=== PATIENT | female | born 1965 | race Caucasian/White ===

== ENCOUNTER 2017-08-31 17:50 | Emergency (ER) | payer MEDICARE, MEDICAID, SELFPAY ==
[2017-08-31 17:51] VITALS: BP 152/105; PULSE 103; RESP 17; TEMP 36.8; O2SAT 98; BMI 33.4
--- NOTE | 2017-08-31 18:10 | RAD_ITS ---
STUDY: X-RAY - LEFT KNEE REASON FOR EXAM: Female, 52 years old. Pain TECHNIQUE: 4 view(s) of the knee. COMPARISON: None. FINDINGS: Normal visualized distal femur. Normal visualized proximal tibia and fibula. Normal proximal tibiofibular articulation. There is no demonstrated fracture. Normal medial femorotibial compartment. Normal lateral femorotibial compartment. Normal patellofemoral articulation. The soft tissue structures are unremarkable. RAD/Knee 4 or More Views IMPRESSION: Normal x-ray examination of the knee. Electronically Signed: Reymundo Domingo MD at 20:32 EST , Service support ,
--- NOTE | 2017-08-31 18:12 | ED.VISSUMM ---
- ER Visit Summary Date of Service: 08/31/17 Chief Complaint: Left knee pain History of Present Illness: The patient is a 52 F presenting with left knee pain. She states this has been ongoing for the past 1.5 weeks. She denies any known injury. She denies any new chest pain or shortness of breath. She went to urgent care and was sent into the ED for further evaluation. She has been able to ambulate. Denies fever chills or other complaints. Physical Examination: Vitals are stable. Patient is afebrile. Alert no acute distress. HEENT exam is unremarkable. Neck is supple. Lungs are clear and equal bilaterally. Heart is regular rate and rhythm. Abdomen is soft nontender nondistended. Extremities diffuse tenderness left knee. No warmth or erythema. Active full range of motion. Normal distal pulses. Skin is warm and dry. Remainder of exam is unremarkable. Emergency Department Course and Treatment: Patient was given Morphine and zofran IM. Left lower extremity venous Doppler shows no evidence of DVT. Left knee x-ray shows no acute process. Patient is able to ambulate in the emergency department. She is given a prescription for a short course of Gueydan. She declines crutches, she states she has a cane at home. Advised to ice and elevate. Advised to follow-up with Dr. Oakley her primary care physician. Advised return to ED for worsening complaints. Disposition: Discharge home Impression: Left knee pain This note was generated with [employer] dictation software. It may contain incorrect words, spelling, and punctuation that were not noted in review of the chart prior to signing ED Disposition - Plan for ED Patient: Chief Complaint: Lower Extremity Injury Referrals: Edvin Oakley III, MD [Primary Care Provider] -
[2017-08-31] MEDS: Ondansetron 4 MG/2 ML Vial IM (18:25)
--- NOTE | 2017-08-31 19:44 | US_ITS ---
STUDY: VENOUS DOPPLER ULTRASOUND - LEFT LOWER EXTREMITY REASON FOR EXAM: Female, 52 years old. Pain. TECHNIQUE: Ultrasound evaluation of the deep vein system to include malik-scale imaging and compression was performed. Malik-scale imaging and Doppler sonographic evaluation, including duplex spectral analysis and qualitative color flow sonography, was performed. COMPARISON: None. FINDINGS: Common Femoral Vein: Normal compression, spontaneity and augmentation. Normal color Doppler. Common Femoral Vein/Greater Saphenous Junction: Normal compression, spontaneity and augmentation. Normal color Doppler. Femoral Proximal: Normal compression, spontaneity and augmentation. Normal color Doppler. Femoral Middle: Normal compression, spontaneity and augmentation. Normal color Doppler. Femoral Distal: Normal compression, spontaneity and augmentation. Normal color Doppler. Popliteal Vein: Normal compression, spontaneity and augmentation. Normal color Doppler. Posterior Tibial Vein: Normal compression, spontaneity and augmentation. Normal color Doppler. Peroneal Vein: Normal compression, spontaneity and augmentation. Normal color Doppler. There is no demonstrated deep venous thrombosis. US/Venous Duplex Imag/Limited/Uni IMPRESSION: Normal venous Doppler ultrasound of the lower extremity. Electronically Signed: Reymundo Domingo MD at 20:31 EST , Service support ,
[2017-08-31 20:36] VITALS: BP 135/99; PULSE 88; RESP 18; O2SAT 95
--- NOTE | 2017-08-31 20:52 | ED.DEP ---
ED Disposition - Plan for ED Patient: Chief Complaint: Lower Extremity Injury Instructions: ED Sprain Knee Prescriptions: Hydrocodone Bitart/Apap 5-325 [Home 5/325] 1 tablet PO Q4H PRN PRN 3 Days #12 tablet PRN Reason: Pain Referrals: Edvin Oakley III, MD [Primary Care Provider] -
[2017-08-31 21:11] VITALS: BP 129/98; PULSE 83; RESP 16; O2SAT 97
== END 2017-08-31 21:12 | disposition home or self-care (01) ==
LOC: ED 18:18
PROVIDERS: Emergency Provider Emergency Medicine; Family Provider Family Medicine; PCP Family Medicine
DX: M25.562 Pain in left knee (principal); J44.9 Chronic obstructive pulmonary disease, unspecified; Z72.0 Tobacco use; Z86.73 Personal history of transient ischemic attack (TIA), and cerebral infarction without residual deficits
CPT/HCPCS: 73564; 93971; 96372; 99282; J2405

== ENCOUNTER 2017-10-20 13:25 | Emergency (ER) | payer MEDICARE, MEDICAID, SELFPAY ==
[2017-10-20 13:26] VITALS: BP 166/135; PULSE 110; RESP 24; TEMP 36.6; O2SAT 98; BMI 33.9
--- NOTE | 2017-10-20 13:30 | EKG12_ITS ---
Test Reason : CP Blood Pressure : / mmHG Vent. Rate : 107 BPM Atrial Rate : 107 BPM P-R Int : 150 ms QRS Dur : 088 ms QT Int : 338 ms P-R-T Axes : 077 080 051 degrees QTc Int : 451 ms Sinus tachycardia Right atrial enlargement Borderline ECG Confirmed by RICH VARGHESE, ROLAN ([id number]), graphics editor CARLOS IRVIN ([id number]) on 10/26/2017 8:55:51 AM Referred By: ALISA/REMY Confirmed By:ROLAN VILLANUEVA MD
--- NOTE | 2017-10-20 13:30 | RAD_ITS ---
STUDY: X-RAY CHEST REASON FOR EXAM: Female, 52 years old. Cough. Shortness of breath. TECHNIQUE: Single AP portable view of the chest. COMPARISON: Comparison is made with prior study dated December 26, 2016. FINDINGS: EKG electrodes are seen. Hyperinflation. Scattered calcified granulomas. No acute abnormality is seen. There is no demonstrated pleural abnormality. Normal size heart. Normal mediastinum and ashley. Normal visualized pulmonary arteries. There is atherosclerotic calcification of the aortic arch with tortuosity. There are diffuse degenerative changes of the visualized thoracic spine. Normal visualized ribs, clavicles, and shoulders. There is no demonstrated abnormality of the visualized soft tissue structures of the upper abdomen. RAD/Chest 1 View (Portable) IMPRESSION: Hyperinflation. No acute abnormality is seen. Electronically Signed: Ayaz Parker MD at 13:53 EDT Tel [phone], Service support ,
[2017-10-20 13:35] VITALS: PULSE 94; RESP 24; O2SAT 96
[2017-10-20] MEDS: Ipratropium/Albuterol Sulfate 3 ML AMPUL.NEB INHALATION (13:35)
[2017-10-20] MEDS: MethylPREDNISolone 125 MG/2 ML Vial IV (13:38)
[2017-10-20] MEDS: Aspirin 325 MG Tablet PO (13:38)
[2017-10-20] MEDS: Albuterol 2.5 MG/3 ML VIAL.NEB. INHALATION ×2 (13:38)
[2017-10-20 13:42] LABS: Absolute Neutrophil Count 7.1 X10^3/uL (2.0-7.7); Basophil# 0.06 X10^3/uL; Basophil% 0.5 % (0-1); Eosinophil# 0.11 X10^3/uL; Eosinophils% 0.9 % (0-5); Hematocrit 43.9 % (37-47); Hemoglobin 13.6 g/dl (12.0-15.0); Lymphocyte % 34.7 % (19-41); Mean Corpuscular Hgb 25.3 pg (27.0-32.0); Mean Corpuscular Volume 81.6 fL (81-99); Mean Platelet Vol. 9.3 fl (6.2-12.0); Monocyte# 0.86 X10^3/uL; Monocyte% 6.9 % (0-10); Neutrophil # 7.05 X10^3/uL (2.7-7.7); Neutrophil % 56.8 % (47-70); Platelet Count 606 K/mm3 (150-450); RBC Distribution Width CV 16.7 % (11.6-14.6); RBC Distribution Width SD 50.2 fl (35.1-43.9); Red Blood Count 5.38 M/mm3 (4.2-5.4); White Blood Count 12.4 K/mm3 (4.4-11.0)
[2017-10-20 13:45] LABS: POSITIVE COUNT NO; POSITIVE DIFFERENTIAL NO
[2017-10-20 13:46] LABS: POSITIVE MORPHOLOGY NO
[2017-10-20 13:58] LABS: Anion Gap 11 (5-15); BUN 21 mg/dL (7-18); Calcium,Total 9.3 mg/dL (8.5-10.1); Chloride 102 mmol/L (98-107); Creatinine, Serum 1.05 mg/dL (0.55-1.02); EST Glomerular Filtration Rate 59 mL/min (>60); Est Glom Filt Rate - Afr Amer 71 mL/min (>60); Estimated Creatinine Clearance 57.04 ml/min; Glucose 121 mg/dL (74-106); Potassium 4.1 mmol/L (3.5-5.1); Sodium Level 139 mmol/L (136-145)
[2017-10-20 14:51] VITALS: BP 135/72; PULSE 112; RESP 22; TEMP 36.5; O2SAT 98
[2017-10-20 14:54] VITALS: O2SAT 100
--- NOTE | 2017-10-20 15:24 | ED.DCSUM_ITS ---
- ER Visit Summary Date of Service: 10/20/17 Chief Complaint: Chest pain shortness of breath History of Present Illness: The patient is a 52 F presenting for evaluation secondary chest pain shortness of breath. Patient states that over the course last 5 days she has had worsening dyspnea, cough, and chest tightness. Patient states that it has not been associated with any fever she states that the cough is intermittently productive. Patient does have an underlying history of hypertension high cholesterol smoking COPD and PE in the past. Physical Examination: Vital signs are notable for heart rate of 110 respiratory rate 24 pulse ox 98% on room air. Well-nourished female hyperventilating not in physiologic distress. Moist mucous membranes. Neck supple heart tachycardic and regular no murmurs. Lungs sounds showed evidence of bilateral upper and lower lobe wheezes with minimal diminished sounds in the left. Abdomen soft nontender. No peripheral edema, no skin rashes, remainder physical otherwise unremarkable. Test Results: EKG shows sinus rhythm of [address] segments normal T waves. CBC shows leukocytosis of 12 thrombocytosis of 600, chemistry unremarkable, troponin negative. Chest x-ray shows chronic changes per radiology. Emergency Department Course and Treatment: Patient presented with shortness of breath and chest tightness. She was given albuterol and Atrovent treatments and aspirin as well as prednisone in the emergency department. Workup was unremarkable, patient has had continuous chest pain for 5 days I do not believe that this is cardiac. Patient has more stigmata of respiratory illness given her wheezes and physical exam findings. She was ambulated in the emergency department and maintained pulse ox of 98%. At this time I believe that she is appropriate for discharge. She will be sent home with a course of prednisone and albuterol nebulized treatments. She will follow-up with her primary care physician. Disposition: Discharge Impression: 1. COPD exacerbation This note was generated with [employer] dictation software. It may contain incorrect words, spelling, and punctuation that were not noted in review of the chart prior to signing ED Disposition - Plan for ED Patient: Disposition: Home or Assisted Living Chief Complaint: Chest Pain Diagnosis: COPD exacerbation Instructions: ED COPD Flare Prescriptions: Albuterol Aerosols [Ventolin Aerosols] 2.5 mg INHALATION Q4H PRN #25 vial Prednisone [Deltasone] 60 mg PO DAILY #15 tab Referrals: Edvin Oakley III, MD [Primary Care Provider] - 3-5 Days
[2017-10-20 15:41] VITALS: BP 134/83; RESP 18
== END 2017-10-20 15:43 | disposition home or self-care (01) ==
PROVIDERS: Emergency Provider Emergency Medicine; Family Provider Family Medicine; PCP Family Medicine
DX: J44.1 Chronic obstructive pulmonary disease with (acute) exacerbation (principal); I10 Essential (primary) hypertension; E78.00 Pure hypercholesterolemia, unspecified; F17.200 Nicotine dependence, unspecified, uncomplicated; Z79.899 Other long term (current) drug therapy; Z86.711 Personal history of pulmonary embolism; Z86.73 Personal history of transient ischemic attack (TIA), and cerebral infarction without residual deficits
CPT/HCPCS: 71045; 80048; 84484; 85025; 87804; 93005; 94640; 96374; 99285

== ENCOUNTER 2017-10-27 09:02 | Emergency (ER) | payer MEDICARE, MEDICAID, SELFPAY ==
[2017-10-27 09:04] VITALS: BP 122/83; PULSE 99; RESP 20; TEMP 36.8; O2SAT 100; BMI 32.8
--- NOTE | 2017-10-27 09:18 | RAD_ITS ---
STUDY: X-RAY CHEST REASON FOR EXAM: Female, 52 years old. Chest pain. TECHNIQUE: Single AP portable view of the chest. COMPARISON: Comparison is made with prior examination dated October 20, 2017. FINDINGS: EKG electrodes are seen. Hyperinflation. No acute abnormality is present. There is no demonstrated pleural abnormality. Normal size heart. Normal mediastinum and ashley. Normal visualized pulmonary arteries. Normal visualized aortic arch and descending thoracic aorta. There are diffuse degenerative changes of the visualized thoracic spine. Normal visualized ribs, clavicles, and shoulders. There is no demonstrated abnormality of the visualized soft tissue structures of the upper abdomen. RAD/Chest 1 View (Portable) IMPRESSION: Hyperinflation. Electronically Signed: Ayaz Parker MD at 9:46 EDT Tel [phone], Service support ,
--- NOTE | 2017-10-27 09:18 | EKG12_ITS ---
Test Reason : DIZZINESS Blood Pressure : / mmHG Vent. Rate : 093 BPM Atrial Rate : 093 BPM P-R Int : 124 ms QRS Dur : 100 ms QT Int : 384 ms P-R-T Axes : 038 077 060 degrees QTc Int : 477 ms Normal sinus rhythm Normal ECG Confirmed by ROLAN VILLANUEVA MD ([id number]), newspaper copy editor CARLOS IRVIN ([id number]) on 10/29/2017 11:29:53 AM Referred By: ALISA Confirmed By:ROLAN VILLANUEVA MD
--- NOTE | 2017-10-27 09:25 | ED.VISSUMM ---
- ER Visit Summary Date of Service: 10/27/17 Chief Complaint: I a and feeling like she might pass out. She denies any headache. She denies any chest pain. She denies any abdominal pain. She has had mild diarrhea but no vomiting. No melena or fever. M not feeling well History of Present Illness: The patient is a 52 F 3 of anxiety and depression, hypertension, COPD and prior PE. Currently not on anticoagulation. Patient is very anxious. And trembling. She states she has been feeling well since Wednesday. She had bad news. She has been complaining of dizziness when she is standing. She denies headache or abdominal pain. She denies dysuria. She denies melena. She has had only mild diarrhea the last several days but none today. No vomiting. No fever. Physical Examination: Very middle-aged female who is very anxious. Vital signs are stable afebrile. Her pulse ox is 100% on room air no signs of hypoxia. H EENT exam unremarkable. Moist mucous membranes. No facial droop. Extraocular motions are intact. Neck nontender no lymphadenopathy. Lungs clear few scattered wheezes consistent with her smoking history. No rales or rhonchi. Heart regular rhythm no murmur rate in the 90s. Abdomen is soft and nontender normal bowel sounds no peritoneal signs. She is moving all 4 extremities. Calves are nontender without edema or cords. She has normal motor strength both the upper and lower extremities. Back exam is nontender. Skin is normal. No petechiae or purpura no rashes. Neurologically she is awake and alert with no focal deficits. Test Results: CBC shows an elevated white count 13.9 but she often has white counts between 12 and 20. Normal H&H. Platelet count is also elevated but that is chronic also. Her electrolytes are unremarkable her BUN is 48 and her creatinine is 2.09. She often has creatinines between 1 and 3.8. This appears to be secondary to dehydration and she is on a diuretic. Troponin is less than 0.02. EKG shows sinus rhythm rate of 93 with no acute abnormality and unchanged from prior EKG. Her orthostatic vital signs are pending. Emergency Department Course and Treatment: Patient was treated with IV Ativan for anxiety. Clinically her exam is basically normal other than chronic wheezing from smoking. We will do screening labs for further evaluation. Treatment Plan: Repeat exam the patient is doing well at 1020. She appears much more comfortable and was resting after we gave her the Ativan. Her exam is unchanged and unremarkable other than her anxiety is resolved. Disposition: Discharge Impression: Acute anxiety with multiple somatic complaints Renal insufficiency This note was generated with [employer] dictation software. It may contain incorrect words, spelling, and punctuation that were not noted in review of the chart prior to signing ED Disposition - Plan for ED Patient: Chief Complaint: Dizziness Referrals: Edvin Oakley III, MD [Primary Care Provider] -
[2017-10-27 09:29] VITALS: O2SAT 98
[2017-10-27 09:33] LABS: Absolute Neutrophil Count 8.6 X10^3/uL (2.0-7.7); Basophil# 0.05 X10^3/uL; Basophil% 0.4 % (0-1); Eosinophil# 0.13 X10^3/uL; Eosinophils% 0.9 % (0-5); Hematocrit 40.5 % (37-47); Lymphocyte % 30.3 % (19-41); Mean Corp Hgb Conc 32.1 g/gl (32-36); Mean Corpuscular Hgb 25.6 pg (27.0-32.0); Mean Corpuscular Volume 79.7 fL (81-99); Mean Platelet Vol. 9.5 fl (6.2-12.0); Monocyte# 0.88 X10^3/uL; Monocyte% 6.3 % (0-10); Neutrophil # 8.58 X10^3/uL (2.7-7.7); Neutrophil % 61.8 % (47-70); Platelet Count 611 K/mm3 (150-450); RBC Distribution Width CV 16.5 % (11.6-14.6); RBC Distribution Width SD 47.6 fl (35.1-43.9); Red Blood Count 5.08 M/mm3 (4.2-5.4); White Blood Count 13.9 K/mm3 (4.4-11.0)
[2017-10-27 09:35] LABS: POSITIVE COUNT NO; POSITIVE DIFFERENTIAL NO; POSITIVE MORPHOLOGY NO
[2017-10-27] MEDS: LORazepam 2 MG/ML Syringe 1 MG IV (09:36)
[2017-10-27 09:48] LABS: Anion Gap 10 (5-15); BUN 48 mg/dL (7-18); Chloride 101 mmol/L (98-107); Creatinine, Serum 2.09 mg/dL (0.55-1.02); EST Glomerular Filtration Rate 27 mL/min (>60); Est Glom Filt Rate - Afr Amer 32 mL/min (>60); Estimated Creatinine Clearance 28.66 ml/min; Glucose 99 mg/dL (74-106); Sodium Level 135 mmol/L (136-145)
--- NOTE | 2017-10-27 10:23 | ED.DEP ---
ED Disposition - Plan for ED Patient: Disposition: Home or Assisted Living Chief Complaint: Dizziness Instructions: ED Dizziness UKO, ED Panic Attack Referrals: Edvin Oakley III, MD [Primary Care Provider] - 3-5 Days if not improving Additional Instructions: Ensure your drinking plenty of fluids your somewhat dehydrated today. Stop smoking
[2017-10-27 10:34] VITALS: BP 85/67; PULSE 94; RESP 18; O2SAT 97
== END 2017-10-27 10:47 | disposition home or self-care (01) ==
PROVIDERS: Emergency Provider Emergency Medicine; Family Provider Family Medicine; PCP Family Medicine
DX: F41.9 Anxiety disorder, unspecified (principal); N28.9 Disorder of kidney and ureter, unspecified; I10 Essential (primary) hypertension; J44.9 Chronic obstructive pulmonary disease, unspecified; F32.9 Major depressive disorder, single episode, unspecified; F17.200 Nicotine dependence, unspecified, uncomplicated; Z86.73 Personal history of transient ischemic attack (TIA), and cerebral infarction without residual deficits; Z79.899 Other long term (current) drug therapy
CPT/HCPCS: 71045; 80048; 84484; 85025; 93005; 96374; 99284; A4216

== ENCOUNTER 2018-05-18 13:32 | Inpatient (IN) | payer MEDICARE, MEDICAID, SELFPAY ==
[2018-05-18] VITALS (8 sets, daily range): BP systolic 116–140; BP diastolic 71–80; PULSE 89–128; RESP 16–22; TEMP 36.3–36.6; O2SAT 95–100; BMI 26.6; BMI 31.5; BMI 31.6
--- NOTE | 2018-05-18 13:43 | EKG12_ITS ---
Test Reason : SOB Blood Pressure : / mmHG Vent. Rate : 100 BPM Atrial Rate : 100 BPM P-R Int : 144 ms QRS Dur : 094 ms QT Int : 374 ms P-R-T Axes : 062 078 069 degrees QTc Int : 482 ms Normal sinus rhythm Abnormal ECG Confirmed by ROLAN VILLANUEVA MD ([id number]), marketing editor CARLOS IRVIN ([id number]) on 05/25/2018 2:14:36 PM Referred By: REBECCA Confirmed By:ROLAN VILLANUEVA MD
--- NOTE | 2018-05-18 13:48 | ED.DCSUM_ITS ---
- ER Visit Summary Date of Service: 05/18/18 Chief Complaint: Shortness of breath and cough History of Present Illness: The patient is a 52 F 3 of asthma, COPD, prior PEs, hypertension and strokes. Patient is not on home O2. States her last week she has had a cough with increasing shortness of breath since yesterday. No chest pain. No hemoptysis. Chills but no fever. Cough of green to yellow sputum. She denies any recent travel or surgery. No recent hospitalization in the last 2 months. No calf pain or swelling. Physical Examination: Middle-aged female vital signs are stable she is tachycardic at 128. Pulse ox 97% on room air. HEENT exam unremarkable. Neck nontender no JVD. No lymphadenopathy. Lungs prolonged expiratory phase bilaterally. Wheezing bilaterally. Rhonchi that clear. Heart tachycardic rate about 130 no murmur. Abdomen soft nontender. She is moving all 4 extremities. They are neurovascularly intact. Calves are nontender without edema nor cords. Neurologically she is awake and alert with no focal motor deficits. Back is nontender. Test Results: CBC shows an elevated white count of 25,000. Hemoglobin 13. No bands. Chemistry shows sodium 135. Potassium 3.4. Normal creatinine and gap. Two-view chest x-ray shows chronic changes consistent with COPD and I believe there is a right upper lateral lobe pneumonia. Emergency Department Course and Treatment: She will be treated with IV Solu- Medrol, DuoNeb and albuterol aerosols. IV fluids. Patient is improving on repeat exams. However she will be started on IV Rocephin and Zithromax for pneumonia. This would be community-acquired. Blood cultures will be obtained prior to antibiotics being started. Treatment Plan: I spoke to the hospitalist and the patient will be admitted. Disposition: Admission Impression: Acute dyspnea secondary to acute exacerbation COPD Acute right upper lobe pneumonia This note was generated with [employer] dictation software. It may contain incorrect words, spelling, and punctuation that were not noted in review of the chart prior to signing ED Disposition - Plan for ED Patient: Chief Complaint: Shortness of Breath Referrals: Edvin Oakley III, MD [Primary Care Provider] -
[2018-05-18 14:01] LABS: Absolute Lymphocyte Count 3.78 X10^3/ul (0.83-4.51); Basophil# 0.06 X10^3/uL; Basophil% 0.2 % (0-1); Eosinophils% 0.4 % (0-5); Hematocrit 42.4 % (37-47); Hemoglobin 13.7 g/dl (12.0-15.0); Lymphocyte # 3.78 X10^3/ul (4.0); Lymphocyte % 15.1 % (19-41); Mean Corp Hgb Conc 32.3 g/gl (32-36); Mean Corpuscular Hgb 27.2 pg (27.0-32.0); Mean Corpuscular Volume 84.1 fL (81-99); Mean Platelet Vol. 9.6 fl (6.2-12.0); Neutrophil # 19.02 X10^3/uL (2.7-7.7); Platelet Count 459 K/mm3 (150-450); RBC Distribution Width CV 16.8 % (11.6-14.6); Red Blood Count 5.04 M/mm3 (4.2-5.4)
[2018-05-18 14:03] LABS: Differential Indicated SCAN CRITERIA MET; POSITIVE COUNT NO; POSITIVE DIFFERENTIAL YES; POSITIVE MORPHOLOGY NO
[2018-05-18] MEDS: Albuterol 2.5 MG/3 ML VIAL.NEB. INHALATION ×3 (14:08)
[2018-05-18] MEDS: Ipratropium/Albuterol Sulfate 3 ML AMPUL.NEB INHALATION ×2 (14:08→19:09)
[2018-05-18 14:14] LABS: Anion Gap 7 (5-15); BUN 8 mg/dL (7-18); BUN/Creat Ratio 11.3 RATIO (10-20); Calcium,Total 9.2 mg/dL (8.5-10.1); Chloride 99 mmol/L (98-107); Creatinine, Serum 0.71 mg/dL (0.55-1.02); EST Glomerular Filtration Rate 92 mL/min (>60); Est Glom Filt Rate - Afr Amer 111 mL/min (>60); Estimated Creatinine Clearance 84.35 ml/min; Glucose 108 mg/dL (74-106); Potassium 3.4 mmol/L (3.5-5.1); Sodium Level 135 mmol/L (136-145)
[2018-05-18] MEDS: MethylPREDNISolone 125 MG/2 ML Vial IV (14:19)
[2018-05-18] MEDS: 0.9% Normal Saline 1,000 ML 999 ML IV (14:19)
[2018-05-18] MEDS: Ketorolac 30 MG/ML Syringe IV (14:51)
--- NOTE | 2018-05-18 14:55 | RAD_ITS ---
STUDY: X-RAY CHEST REASON FOR EXAM: Female, 52 years old. Cough and dyspnea. Shortness of breath. TECHNIQUE: AP and lateral views of the chest. COMPARISON: Comparison is made with prior examination dated October 27, 2017. FINDINGS: EKG electrodes are seen. There now is evidence of increased markings with areas of confluence in the right upper lobe. Early right upper lobe infiltrate should be ruled out. Follow-up is recommended. Hyperinflation. There is no demonstrated pleural abnormality. Normal size heart. Normal mediastinum and ashley. Normal visualized pulmonary arteries. Normal visualized aortic arch and descending thoracic aorta. There is demineralization of the osseous structures. Normal visualized ribs, clavicles, and shoulders. There is no demonstrated abnormality of the visualized soft tissue structures of the upper abdomen. RAD/Chest PA and Lateral IMPRESSION: Findings in keeping with early right upper lobe infiltrate. Hyperinflation. Electronically Signed: Ayaz Parker MD at 15:17 EDT Tel [phone], Service support ,
--- NOTE | 2018-05-18 15:16 | NURSING ---
HOSPITALIST FOR DR CUELLAR
--- NOTE | 2018-05-18 15:19 | NURSING ---
MED SURG RU LOBE PNEUMONIA, COPD FLARE KIMBERLY
[2018-05-18] MEDS: Ceftriaxone 1 GM/50 ML BAG IV (16:01)
--- NOTE | 2018-05-18 16:58 | PCM.HP.STD ---
<Juhi Jacques - Last Filed: 05/18/18 17:36> Problem List (1) COPD (chronic obstructive pulmonary disease) Status: Acute (2) History of alcohol use disorder Status: Chronic (3) Seizure Status: Suspected (4) Obesity (BMI 30-39.9) Status: Chronic (5) Iron deficiency anemia Status: Chronic (6) Depression Status: Chronic (7) Marijuana smoker Status: Chronic (8) HLD (hyperlipidemia) Status: Chronic (9) HTN (hypertension) Status: Chronic (10) Nicotine addiction Status: Chronic (11) Pulmonary hypertension Status: Chronic (12) Thrombocytosis Status: Chronic History of Present Illness Date of Admission: 05/18/18 Chief Complaint: Shortness of breath, cough. The patient is a 52 year old F who presents to the emergency room due to shortness of breath, cough, general malaise. She reports she has been feeling unwell for approximately 1 week with increased shortness of breath for the past day. She states she has been in bed all day due to general body aches and overall feeling unwell. She denies sick contacts. States she has been traveling out of state multiple times recently. Complains of productive cough with yellow sputum, fever, chills. She has been using her home nebulizer aerosols without improvement in shortness of breath. She has a past medical history of COPD, tobacco dependence, hypertension, hyperlipidemia, history of seizure, chronic iron deficiency anemia, history of CVA, history of polysubstance use, pulmonary hypertension, depression, obesity. Past Medical History Past Medical History (Chronic Problems): Chronic Problems History of alcohol use disorder (Chronic) Obesity (BMI 30-39.9) (Chronic) Iron deficiency anemia (Chronic) Depression (Chronic) Marijuana smoker (Chronic) HLD (hyperlipidemia) (Chronic) HTN (hypertension) (Chronic) Nicotine addiction (Chronic) Pulmonary hypertension (Chronic) Thrombocytosis (Chronic) Allergies peanut Allergy (Verified 05/18/18 13:35) Anaphylaxis tree nut [Tree Nut] Allergy (Verified 05/18/18 13:35) Anaphylaxis Home Medications: Ambulatory Orders Medication Instructions Recorded Albuterol Aerosols [Ventolin 2.5 mg INHALATION Q4H PRN #25 vial 10/20/17 Aerosols] Albuterol Sulfate [Ventolin Hfa] 1 - 2 puff INHALATION PRN PRN 05/18/18 Ipratropium/Albuterol Sulfate 3 ml INHALATION Q6H PRN 05/18/18 [Duoneb] Mometasone/Formoterol [Dulera 200 1 - 2 puff INHALATION DAILY 05/18/18 Mcg/5 Mcg Inhaler] Amox/Clavulanate Tablet [Augmentin 875 mg PO Q12H #14 tablet 05/19/18 Tablet] Azithromycin 500 mg PO DAILY #4 tablet 05/19/18 Guaifenesin [Mucinex] 1,200 mg PO BID #20 tablet 05/19/18 Nicotine [Nicoderm] 14 mg TRANSDERM. DAILY #30 patch 05/19/18 Prednisone 10 mg PO UD #30 tab 05/19/18 Surgical History: cholecystectomy, - - Cholecystectomy, tubal ligation. 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, Post traumatic stress [employer] History: - - Tubal ligation Smoking Status: Current every day smoker Tobacco Use: Cigarettes Alcohol: None Drugs: Marijuana - *Family History Paternal History Items: Seizures - Epilepsy Maternal History Items: Asthma, COPD, Hypertension Sibling History Items: Cancer - Lung, Hypertension Review of Systems Constitutional: Reports: Chills, Fever, Malaise, Fatigue HEENT: Reports: Nasal Congestion, Sore Throat. Denies: Head Aches, Sinus Congestion, Sinus Drainage Cardiovascular: Denies: Chest Pain, Edema, Light Headedness, Palpitations Respiratory: Reports: Cough, Shortness of Breath, Sputum production, Wheezing Gastrointestinal: Denies: Abdominal Pain, Nausea, Vomiting Genitourinary: Denies: Dysuria Musculoskeletal: Denies: Joint Pain, Joint Tenderness Skin: Denies: Rash, Wounds Neurological: Denies: Numbness, Tingling, Focal weakness Psychiatric: Reports: Anxiety, Depression. Denies: Homicidal Ideations, Suicidal Ideations Hematologic/ Lymphatic: Denies: Easy Bruising, Easy Bleeding VTE Information - Inpt Only VTE Present on Admission: No VTE Mechan Device Prophylaxis: None VTE Pharm Prophylaxis ordered?: Yes - Physical Exam General: Alert, Oriented x3, Cooperative, - - Appears ill HEENT: Atraumatic, PERRLA, EOMI, Normocephalic Oral: Moist Mucosa Neck: Supple, No JVD, Negative Carotid Bruits Lungs: Diminished, Rhonchi, Wheezes Cardiovascular: Regular Rhythm, Normal S1, Normal S2, No murmurs, Tachycardic Abdomen: Bowel Sounds Present, Soft, Non Tender, Non-Distended, Obese Extremities: No clubbing, No cyanosis, No edema, Capillary Refill Less than 3 Seconds Skin: No rashes, No breakdown Musculoskeletal: No Tenderness to Palpation of Joints or Extremities Neurological: Cranial nerves II-XII grossly intact, Neuro grossly intact Psych/Mental Status: Normal Affect, Appropriate Vital Signs Temp Pulse Resp BP Pulse Ox 97.9 F 89 16 116/77 100 05/18/18 16:00 05/18/18 16:00 05/18/18 16:00 05/18/18 16:00 05/18/18 16:00 Oxygen Flow Rate (L/min) 2 Oxygen Delivery Method Nasal Cannula Weight: 189 lb 6.033 oz Body Mass Index (BMI) 31.5 Laboratory Tests Past 24 Hrs 05/18/18 05/18/18 13:55 13:55 WBC 25.0 H RBC 5.04 Hgb 13.7 Hct 42.4 MCV 84.1 MCH 27.2 MCHC 32.3 RDW 16.8 H RDW Differential 52.0 H Plt Count 459 H MPV 9.6 Immature Gran % (Auto) 0.300 Neut % (Auto) 76.0 H Lymph % (Auto) 15.1 L [place] % (Auto) 8.0 Eos % (Auto) 0.4 Baso % (Auto) 0.2 Absolute Neuts (auto) 19.0 H Absolute Lymphs (auto) 3.78 Total Counted Not Reportable Sodium 135 L Potassium 3.4 L Chloride 99 Carbon Dioxide 29.0 Anion Gap 7 BUN 8 Creatinine 0.71 Estim Creat Clear Calc 84.35 Est GFR (MDRD) Af Amer 111 Est GFR (MDRD) Non-Af 92 BUN/Creatinine Ratio 11.3 Glucose 108 H Calcium 9.2 Assessment/Plan All Active Problems COPD (chronic obstructive pulmonary disease) (Acute) Bilateral pulmonary embolism (Resolved) CVA (cerebral vascular accident) (Resolved) History of suicide attempt (Resolved) 1. Acute sepsis secondary to right upper lobe community acquired pneumonia-leukocytosis, tachypnea, tachycardia on admission. Chest x-ray showed right upper lobe pneumonia. Continue IV azithromycin and IV Rocephin. Blood cultures pending. Check urine for strep and Legionella. Albuterol DuoNeb aerosols. Mucinex 1200 mg twice daily. 2. Acute exacerbation of COPD-check respiratory panel. IV Solu-Medrol. Albuterol and DuoNeb aerosols. Patient currently has supplemental oxygen however she was not hypoxic on admission. We oxygen as tolerated to maintain O2 at or above 90%. 3. Chronic iron deficiency anemia-previously on iron supplementation. 4. Hypertension-previously on metoprolol. Continue to monitor. 5. Hyperlipidemia-no longer taking statin. 6. Depression/anxiety-not currently on regimen. 7. History of polysubstance abuse-states she still uses occasional marijuana. 8. GERD-previously on PPI. 9. Obesity-encourage diet lifestyle modifications. 10. History of PE-off of anticoagulation following treatment. Reported to have had hypercoagulable workup that was unremarkable. 11. History of TIA/CVA-No longer taking asa, statin? Check med rec. 12. Tobacco dependence-encourage tobacco cessation. Nicotine replacement patch. 13. History of seizures-previously on Keppra. Is unclear why patient is no longer taking previously prescribed medications. Need to obtain current med rec. DVT prophylaxis- Lovenox. This patient was seen by MAGALYS Borden under the supervision of Dr. Denney. <Arun Denney F - Last Filed: 05/19/18 13:24> History of Present Illness The patient is a 52 year old F [] Past Medical History Allergies peanut Allergy (Verified 05/18/18 13:35) Anaphylaxis tree nut [Tree Nut] Allergy (Verified 05/18/18 13:35) Anaphylaxis - Physical Exam Vital Signs Temp Pulse Resp BP Pulse Ox 98.5 F 97 12 131/73 H 96 05/19/18 12:00 05/19/18 12:00 05/19/18 12:00 05/19/18 12:00 05/19/18 12:00 Oxygen Flow Rate (L/min) 2 Oxygen Delivery Method Room Air Weight: 189 lb 6.033 oz Body Mass Index (BMI) 31.5 Intake and Output for Last 24 Hours 05/17/18 05/18/18 05/19/18 23:59 23:59 23:59 Intake Total 707 / 707 2792.1 / 2792.1 Output Total Balance 707 / 707 2791.1 / 2791.1 Microbiology Past 72 Hours 10/31/18 19:10 Respiratory Panel (PCR) - Final Mucosa - Nasopharyngeal Laboratory Tests Past 24 Hrs 05/18/18 05/18/18 05/19/18 13:55 13:55 05:52 WBC 25.0 H RBC 5.04 Hgb 13.7 Hct 42.4 MCV 84.1 MCH 27.2 MCHC 32.3 RDW 16.8 H RDW Differential 52.0 H Plt Count 459 H MPV 9.6 Immature Gran % (Auto) 0.300 Neut % (Auto) 76.0 H Lymph % (Auto) 15.1 L [place] % (Auto) 8.0 Eos % (Auto) 0.4 Baso % (Auto) 0.2 Absolute Neuts (auto) 19.0 H Absolute Lymphs (auto) 3.78 Total Counted Not Reportable Diff Path Review May foll Sodium 135 L 141 Potassium 3.4 L 3.6 Chloride 99 107 Carbon Dioxide 29.0 26.0 Anion Gap 7 8 BUN 8 14 Creatinine 0.71 0.71 Estim Creat Clear Calc 84.35 80.95 Est GFR (MDRD) Af Amer 111 111 Est GFR (MDRD) Non-Af 92 92 BUN/Creatinine Ratio 11.3 19.6 Glucose 108 H 154 H Calcium 9.2 9.0 05/19/18 05:52 WBC 19.1 H RBC 4.41 Hgb 11.8 L Hct 37.5 MCV 85.0 MCH 26.8 L MCHC 31.5 L RDW 16.9 H RDW Differential 53.4 H Plt Count 488 H MPV 9.9 Immature Gran % (Auto) 0.400 Neut % (Auto) 88.8 H Lymph % (Auto) 7.3 L [place] % (Auto) 3.4 Eos % (Auto) 0.0 Baso % (Auto) 0.1 Absolute Neuts (auto) 17.0 H Absolute Lymphs (auto) 1.39 Total Counted Not Reportable Diff Path Review Sodium Potassium Chloride Carbon Dioxide Anion Gap BUN Creatinine Estim Creat Clear Calc Est GFR (MDRD) Af Amer Est GFR (MDRD) Non-Af BUN/Creatinine Ratio Glucose Calcium Code Visit Addendum: Dr. Denney I personally examined the patient and reviewed the chart. I agree with the above. 52-year-old female with a history of COPD presenting with an acute exacerbation of her COPD as well as an early right upper lobe pneumonia. She presented with a leukocytosis and tachypnea indicating sepsis. She received fluid bolus in the ER as well as started on IV fluids on admission. She was continued on Unasyn and azithromycin as well as IV steroids for her COPD. Would anticipate a quick recovery and discharged on Augmentin and is a thorough. Inpatient E&M: 15191 Init Hosp L3
[2018-05-18] MEDS: 0.9% Normal Saline 1,000 ML 100 ML IV (17:49)
[2018-05-18] MEDS: guaiFENesin 1,200 MG Tablet 1200 MG PO (21:50)
[2018-05-18] MEDS: 0.9% NaCl Peripheral Flush Adult/Peds IV (23:29)
[2018-05-18] MEDS: Ibuprofen 400 MG Tablet PO (23:34)
[2018-05-19] VITALS (7 sets, daily range): BP systolic 130–135; BP diastolic 73–79; PULSE 82–97; RESP 12–20; TEMP 36.2–36.9; O2SAT 95–98
[2018-05-19] MEDS: Albuterol 2.5 MG/3 ML VIAL.NEB. INHALATION (03:56)
[2018-05-19 06:42] LABS: Absolute Lymphocyte Count 1.39 X10^3/ul (0.83-4.51); Basophil# 0.01 X10^3/uL; Basophil% 0.1 % (0-1); Hematocrit 37.5 % (37-47); Hemoglobin 11.8 g/dl (12.0-15.0); Lymphocyte # 1.39 X10^3/ul (4.0); Lymphocyte % 7.3 % (19-41); Mean Corp Hgb Conc 31.5 g/gl (32-36); Mean Corpuscular Hgb 26.8 pg (27.0-32.0); Mean Platelet Vol. 9.9 fl (6.2-12.0); Monocyte# 0.64 X10^3/uL; Monocyte% 3.4 % (0-10); Neutrophil # 16.98 X10^3/uL (2.7-7.7); Neutrophil % 88.8 % (47-70); Platelet Count 488 K/mm3 (150-450); RBC Distribution Width CV 16.9 % (11.6-14.6); RBC Distribution Width SD 53.4 fl (35.1-43.9); Red Blood Count 4.41 M/mm3 (4.2-5.4); White Blood Count 19.1 K/mm3 (4.4-11.0)
[2018-05-19] MEDS: Ipratropium/Albuterol Sulfate 3 ML AMPUL.NEB INHALATION ×2 (06:43→12:38)
[2018-05-19 06:45] LABS: POSITIVE COUNT NO; POSITIVE DIFFERENTIAL NO; POSITIVE MORPHOLOGY NO
[2018-05-19 06:46] LABS: Anion Gap 8 (5-15); BUN 14 mg/dL (7-18); BUN/Creat Ratio 19.6 RATIO (10-20); Chloride 107 mmol/L (98-107); Creatinine, Serum 0.71 mg/dL (0.55-1.02); EST Glomerular Filtration Rate 92 mL/min (>60); Est Glom Filt Rate - Afr Amer 111 mL/min (>60); Estimated Creatinine Clearance 80.95 ml/min; Glucose 154 mg/dL (74-106); Potassium 3.6 mmol/L (3.5-5.1); Sodium Level 141 mmol/L (136-145)
[2018-05-19] MEDS: 0.9% Normal Saline 1,000 ML 100 ML IV (08:41)
[2018-05-19] MEDS: guaiFENesin 1,200 MG Tablet 1200 MG PO (09:03)
[2018-05-19] MEDS: Enoxaparin 40 MG/0.4 ML Syringe SC (09:03)
--- NOTE | 2018-05-19 09:33 | DCINST_ITS ---
- Discharge Diagnoses Reason(s) for Visit for Discharge Instructions: Shortness of breath You will use the following diet at home:: Cardiac Your food should be the consistency of: Regular Your liquids should be the consistency of: Regular/Thin Discharge Activity: Return to Normal Activity Additional Instructions: Continue to use your nebuliser at home. You should complete your medications. Allergies/Adverse Reactions: Allergies peanut Allergy (Verified 05/18/18 13:35) Anaphylaxis tree nut [Tree Nut] Allergy (Verified 05/18/18 13:35) Anaphylaxis Medications to take at Discharge Albuterol Aerosols [Ventolin Aerosols] 2.5 mg INHALATION Q4H PRN #25 vial 10/20/17 Albuterol Sulfate [Ventolin Hfa] 1 - 2 puff INHALATION PRN PRN 05/18/18 Ipratropium/Albuterol Sulfate [Duoneb] 3 ml INHALATION Q6H PRN 05/18/18 Mometasone/Formoterol [Dulera 200 Mcg/5 Mcg Inhaler] 1 - 2 puff INHALATION DAILY 05/18/18 Amox/Clavulanate Tablet [Augmentin Tablet] 875 mg PO Q12H #14 tablet 05/19/18 Azithromycin 500 mg PO DAILY #4 tablet 05/19/18 Guaifenesin [Mucinex] 1,200 mg PO BID #20 tablet 05/19/18 Nicotine [Nicoderm] 14 mg TRANSDERM. DAILY #30 patch 05/19/18 Prednisone 10 mg PO UD #30 tab 05/19/18 The following prescriptions were given: Amox/Clavulanate Tablet [Augmentin Tablet] 875 mg PO Q12H #14 tablet Azithromycin 500 mg PO DAILY #4 tablet Nicotine [Nicoderm] 14 mg TRANSDERM. DAILY #30 patch Guaifenesin [Mucinex] 1,200 mg PO BID #20 tablet Primary Care Physician: Edvin Oakley III, MD [Primary Care Provider] - Please follow up with your Primary Care Physician in: in 1-2 weeks Test Results: Test results from this visit will be discussed in further detail at your follow- up appointment, if applicable. Proposed Discharge Date: 05/19/18
[2018-05-19] MEDS: Ibuprofen 400 MG Tablet PO (09:51)
--- NOTE | 2018-05-19 12:08 | PCM.DC.SUM ---
Discharge Date and Diagnosis Date of Admission: 05/18/18 Date of Discharge: 05/19/18 - Primary Discharge Diagnosis Sepsis secondary to right upper lobe acquired pneumonia Acute COPD exacerbation Acute respiratory insufficiency secondary to acute COPD exacerbation, resolved at discharge - Secondary Discharge Diagnosis Chronic Problems History of alcohol use disorder (Chronic) Obesity (BMI 30-39.9) (Chronic) Iron deficiency anemia (Chronic) Depression (Chronic) Marijuana smoker (Chronic) HLD (hyperlipidemia) (Chronic) HTN (hypertension) (Chronic) Nicotine addiction (Chronic) Pulmonary hypertension (Chronic) Thrombocytosis (Chronic) Hospital Course and Treatment Imaging Results: Clinical Impression(s) from Imaging Studies Chest X-Ray 05/18/18 14:55 IMPRESSION: Findings in keeping with early right upper lobe infiltrate. Hyperinflation. Electronically Signed: Ayaz Parker MD at 15:17 EDT Tel [phone], Service support , None Operations: None Procedures: None Summary of Care Provided: The patient is a 52 year old F with past medical history of hypertension, hyperlipidemia, anxiety/depression, iron deficiency anemia, COPD, chronic smoker comes in with complaints of shortness of breath and cough. Routine chest x-ray showed right upper lobe pneumonia. She is not on oxygen at home. She was admitted to a telemetry bed, managed as right upper lateral lobe pneumonia, acute COPD exacerbation. She improved the next day and was discharged home on Augmentin and azithromycin. She was also discharged home on prednisone taper and asked to use breathing treatments via nebulizer. She did not qualify for oxygen on the day of discharge Subjective: On the day of discharge, patient was seen and examined, she denied any worsening shortness of breath. Feels 100% improved. Not on oxygen. Ambulated and did not qualify for oxygen - Physical Exam General: Alert, Oriented x3, Cooperative, No apparent distress HEENT: Atraumatic, PERRLA, EOMI, Normocephalic Oral: Moist Mucosa Neck: Supple Lungs: Normal air movement, Diminished - In the left lower and middle lung zones, wheezing heard Cardiovascular: Regular rate, Regular Rhythm, Normal S1, Normal S2, No murmurs Abdomen: Bowel Sounds Present, Soft, Non Tender, Non-Distended, No Hepato-splenomegaly Extremities: No edema Skin: No rashes, No breakdown Musculoskeletal: No Tenderness to Palpation of Joints or Extremities Lymphatic: No Cervical, Supraclavicular, or Inguinal Adenopathy Neurological: Cranial nerves II-XII grossly intact, Neuro grossly intact Psych/Mental Status: Normal Affect, Appropriate Vital Signs Temp Pulse Resp BP Pulse Ox 97.1 F L 90 14 135/79 H 97 05/19/18 07:00 05/19/18 07:00 05/19/18 07:00 05/19/18 07:00 05/19/18 10:45 Oxygen Flow Rate (L/min) 2 Oxygen Delivery Method Room Air Weight: 85.9 kg Body Mass Index (BMI) 31.5 Intake and Output for Last 24 Hours 05/17/18 05/18/18 05/19/18 23:59 23:59 23:59 Intake Total 707 / 707 2792 / 2792 Balance 707 / 707 2792 / 2792 Microbiology Past 72 Hours 05/18/18 19:10 Respiratory Panel (PCR) - Final Mucosa - Nasopharyngeal Laboratory Tests Past 24 Hrs 05/18/18 05/18/18 05/19/18 13:55 13:55 05:52 WBC 25.0 H RBC 5.04 Hgb 13.7 Hct 42.4 MCV 84.1 MCH 27.2 MCHC 32.3 RDW 16.8 H RDW Differential 52.0 H Plt Count 459 H MPV 9.6 Immature Gran % (Auto) 0.300 Neut % (Auto) 76.0 H Lymph % (Auto) 15.1 L [place] % (Auto) 8.0 Eos % (Auto) 0.4 Baso % (Auto) 0.2 Absolute Neuts (auto) 19.0 H Absolute Lymphs (auto) 3.78 Total Counted Not Reportable Diff Path Review May foll Sodium 135 L 141 Potassium 3.4 L 3.6 Chloride 99 107 Carbon Dioxide 29.0 26.0 Anion Gap 7 8 BUN 8 14 Creatinine 0.71 0.71 Estim Creat Clear Calc 84.35 80.95 Est GFR (MDRD) Af Amer 111 111 Est GFR (MDRD) Non-Af 92 92 BUN/Creatinine Ratio 11.3 19.6 Glucose 108 H 154 H Calcium 9.2 9.0 05/19/18 05:52 WBC 19.1 H RBC 4.41 Hgb 11.8 L Hct 37.5 MCV 85.0 MCH 26.8 L MCHC 31.5 L RDW 16.9 H RDW Differential 53.4 H Plt Count 488 H MPV 9.9 Immature Gran % (Auto) 0.400 Neut % (Auto) 88.8 H Lymph % (Auto) 7.3 L [place] % (Auto) 3.4 Eos % (Auto) 0.0 Baso % (Auto) 0.1 Absolute Neuts (auto) 17.0 H Absolute Lymphs (auto) 1.39 Total Counted Not Reportable Diff Path Review Sodium Potassium Chloride Carbon Dioxide Anion Gap BUN Creatinine Estim Creat Clear Calc Est GFR (MDRD) Af Amer Est GFR (MDRD) Non-Af BUN/Creatinine Ratio Glucose Calcium Discharge Diet: Low fat/ Low Cholesterol, 2000 mg Sodium Diet Discharge Activity: Return to Normal Activity Home Medications: Medications to take at Discharge Albuterol Aerosols [Ventolin Aerosols] 2.5 mg INHALATION Q4H PRN #25 vial 10/20/17 Albuterol Sulfate [Ventolin Hfa] 1 - 2 puff INHALATION PRN PRN 05/18/18 Ipratropium/Albuterol Sulfate [Duoneb] 3 ml INHALATION Q6H PRN 05/18/18 Mometasone/Formoterol [Dulera 200 Mcg/5 Mcg Inhaler] 1 - 2 puff INHALATION DAILY 05/18/18 Amox/Clavulanate Tablet [Augmentin Tablet] 875 mg PO Q12H #14 tablet 05/19/18 Azithromycin 500 mg PO DAILY #4 tablet 05/19/18 Guaifenesin [Mucinex] 1,200 mg PO BID #20 tablet 05/19/18 Nicotine [Nicoderm] 14 mg TRANSDERM. DAILY #30 patch 05/19/18 Prednisone 10 mg PO UD #30 tab 05/19/18 Following Prescrptions Were Given to Patient: Amox/Clavulanate Tablet [Augmentin Tablet] 875 mg PO Q12H #14 tablet Azithromycin 500 mg PO DAILY #4 tablet Nicotine [Nicoderm] 14 mg TRANSDERM. DAILY #30 patch Prednisone 10 mg PO UD #30 tab Guaifenesin [Mucinex] 1,200 mg PO BID #20 tablet Other Amb Orders: CBC W/Diff, Automated Location: Laboratory Primary Care Physician: Evdin Oakley III, MD [Primary Care Provider] - Please follow up with your Primary Care Physician in: in 1-2 weeks Disposition: Home Minutes spent on discharge:: 40 Patient Condition:: Stable Medical Necessity - Tobacco Use Smoking Status: Current every day smoker Tobacco Use: Cigarettes Meaningful Use Info Meaningful Use Diagnoses (Choose all that apply): None applicable Code Visit Inpatient E&M: 02819 Subs Hosp L2
--- NOTE | 2018-05-19 12:55 | CASEMGMT ---
RN CM Assessment. Pt is being dc'd today Treatment for COPD exacerbation/pneumonia. Pt has ride home with family member. SW referral: polysubstance abuse, continues to use marijuana PCP: Dr. Edvin Oakley III [facility] Prescription coverage: yes DME: Has nebulizer. Home oxygen testing completed- not needed. Living arrangements: lives independently, is disabled. Insurance: [facility] DC PLAN: Home on discharge. No needs identified. Natanael GARCIA BSN ACM
[2018-05-19 14:25] LABS: Pathologist Review Reviewed
--- NOTE | 2018-05-20 13:45 | CASEMGMT ---
RADHA CM Discharge Phone Call. DC DATE: 05/19/18 DC Disposition: Home LACE 9 /STRATA 3 Call details: No answer, and voicemail not set up.
--- NOTE | 2018-05-31 09:44 | CCN.REFER ---
After multiple attempts x 1 week - unable to reach patient to discuss CCN. Left message with emergency contact Maritza Light with no return call.
== END 2018-05-19 13:29 | disposition home or self-care (01) | DRG 871 ==
LOC: ED 15:26 → MS3 15:31
PROVIDERS: Admitting Provider Family Medicine; Emergency Provider Emergency Medicine; Family Provider Family Medicine; PCP Family Medicine; Visit Provider Internal Medicine
DX: A41.9 Sepsis, unspecified organism (principal); J18.9 Pneumonia, unspecified organism; J44.1 Chronic obstructive pulmonary disease with (acute) exacerbation; D50.9 Iron deficiency anemia, unspecified; R06.89 Other abnormalities of breathing; E66.9 Obesity, unspecified; I27.20 Pulmonary hypertension, unspecified; F17.200 Nicotine dependence, unspecified, uncomplicated; F12.90 Cannabis use, unspecified, uncomplicated; I10 Essential (primary) hypertension; F32.9 Major depressive disorder, single episode, unspecified; Z86.711 Personal history of pulmonary embolism; Z68.31 Body mass index [BMI] 31.0-31.9, adult; Z86.73 Personal history of transient ischemic attack (TIA), and cerebral infarction without residual deficits
CPT/HCPCS: 36415; 71046; 80048; 85025; 87040; 87449; 87633; 93005; 94640; 99283; 99406; J7030; J7040; A4216; J0295

== ENCOUNTER 2018-07-29 15:19 | Emergency (ER) | payer MEDICARE, SELFPAY ==
[2018-07-29 15:20] VITALS: BP 83/56; PULSE 110; RESP 30; TEMP 36.7; O2SAT 95; BMI 28.5
--- NOTE | 2018-07-29 15:50 | EKG12_ITS ---
Test Reason : SOB Blood Pressure : / mmHG Vent. Rate : 093 BPM Atrial Rate : 093 BPM P-R Int : 146 ms QRS Dur : 082 ms QT Int : 376 ms P-R-T Axes : 070 080 073 degrees QTc Int : 467 ms Normal sinus rhythm Normal ECG Confirmed by RICH VARGHESE, ROLAN ([id number]), content editor CARLOS IRVIN ([id number]) on 08/02/2018 5:02:01 PM Referred By: CODY Confirmed By:ROLAN VILLANUEVA MD
[2018-07-29 15:51] VITALS: BP 138/83; PULSE 99; RESP 26; O2SAT 95
--- NOTE | 2018-07-29 15:51 | RAD_ITS ---
STUDY: X-RAY CHEST REASON FOR EXAM: Female, 53 years old. Shortness of breath and right chest pain. History of COPD/emphysema and pneumonia one month ago. TECHNIQUE: Single AP portable view of the chest. COMPARISON: Prior chest radiograph of May 18, 2018 FINDINGS: Moderate hyperexpansion without consolidation, focal atelectasis or pneumothorax. A right upper lobe infiltrate has resolved since May 18, 2018. Negative for pleural effusion. Normal size heart. Normal mediastinum and ashley. Normal visualized pulmonary arteries. There is atherosclerotic calcification of the aortic arch . Normal visualized thoracic spine. Normal visualized ribs, clavicles, and shoulders. There is no demonstrated abnormality of the visualized soft tissue structures of the upper abdomen. RAD/Chest 1 View (Portable) IMPRESSION: No acute cardiopulmonary findings. Negative for consolidation, focal atelectasis, pneumothorax, pleural effusion or cardiomegaly. A prior infiltrate of the right upper lobe has resolved since May 18, 2018 Electronically Signed: Anita Stewart MD at 16:14 EST , Service support ,
--- NOTE | 2018-07-29 15:55 | ED.VISSUMM ---
- ER Visit Summary Date of Service: 07/29/18 Chief Complaint: Shortness of breath History of Present Illness: The patient is a 53 F who presents with shortness of breath. She has had this for a couple of days. Her shortness of breath is worse with exertion and better with rest. She has had a cough productive of a lot of sputum. She has pain in the chest on the right lower rib area. She does not wear any home oxygen. She does have a diagnosis of COPD and continues to smoke. No fevers. She was doing albuterol aerosols at home which did not help with her symptoms. Physical Examination: Vital signs reviewed. Patient slightly tachycardic. She does seem to be in mild respiratory distress. HEENT exam unremarkable. Heart is tachycardic and regular rhythm without murmurs. Lungs reveal diffuse rhonchorous breath sounds. She has chest tenderness in the right lower axillary area. Abdomen soft and nontender. Extremities reveal no edema. Neurologic exam is normal. Test Results: EKG is sinus rhythm with rate of 93. No ST changes. Chest x-ray reveals chronic changes. An old infiltrate is not seen anymore. White blood cell count 13.7. Laboratory studies otherwise unremarkable Emergency Department Course and Treatment: Patient was given DuoNeb and albuterol treatments. She was mildly improved with this. She was given Toradol for the chest wall pain. We will give her a azithromycin, prednisone for home. She will follow-up with her PCP. She will continue her aerosol treatments at home Treatment Plan: [] Disposition: Discharge Impression: COPD exacerbation, chest wall pain This note was generated with [employer] dictation software. It may contain incorrect words, spelling, and punctuation that were not noted in review of the chart prior to signing ED Disposition - Plan for ED Patient: Chief Complaint: Shortness of Breath Referrals: Edvin Oakley III, MD [Primary Care Provider] -
[2018-07-29] MEDS: predniSONE 20 MG Tablet 60 MG PO (16:08)
[2018-07-29] MEDS: Albuterol 2.5 MG/3 ML VIAL.NEB. INHALATION ×2 (16:11)
[2018-07-29] MEDS: Ipratropium/Albuterol Sulfate 3 ML AMPUL.NEB INHALATION (16:11)
[2018-07-29 16:12] VITALS: PULSE 89; RESP 20
[2018-07-29 16:23] LABS: Absolute Lymphocyte Count 2.53 X10^3/ul (0.83-4.51); Absolute Neutrophil Count 9.5 X10^3/uL (2.0-7.7); Basophil# 0.06 X10^3/uL; Basophil% 0.4 % (0-1); Eosinophil# 0.58 X10^3/uL; Eosinophils% 4.2 % (0-5); Hematocrit 41.9 % (37-47); Hemoglobin 13.2 g/dl (12.0-15.0); Lymphocyte # 2.53 X10^3/ul (4.0); Lymphocyte % 18.5 % (19-41); Mean Corp Hgb Conc 31.5 g/gl (32-36); Mean Corpuscular Hgb 28.3 pg (27.0-32.0); Mean Corpuscular Volume 89.9 fL (81-99); Mean Platelet Vol. 9.5 fl (6.2-12.0); Monocyte# 0.96 X10^3/uL; Neutrophil # 9.52 X10^3/uL (2.7-7.7); Neutrophil % 69.7 % (47-70); Platelet Count 443 K/mm3 (150-450); RBC Distribution Width CV 14.7 % (11.6-14.6); RBC Distribution Width SD 47.8 fl (35.1-43.9); Red Blood Count 4.66 M/mm3 (4.2-5.4); White Blood Count 13.7 K/mm3 (4.4-11.0)
[2018-07-29 16:24] LABS: POSITIVE COUNT NO; POSITIVE DIFFERENTIAL NO; POSITIVE MORPHOLOGY NO
[2018-07-29 16:31] LABS: Anion Gap 7 (5-15); BUN 9 mg/dL (7-18); BUN/Creat Ratio 14.2 RATIO (10-20); Calcium,Total 8.7 mg/dL (8.5-10.1); Chloride 103 mmol/L (98-107); Creatinine, Serum 0.63 mg/dL (0.55-1.02); EST Glomerular Filtration Rate 105 mL/min (>60); Est Glom Filt Rate - Afr Amer 127 mL/min (>60); Estimated Creatinine Clearance 93.99 ml/min; Glucose 86 mg/dL (74-106); Potassium 3.5 mmol/L (3.5-5.1); Sodium Level 138 mmol/L (136-145)
[2018-07-29 16:33] VITALS: RESP 18; O2SAT 96
[2018-07-29 16:39] LABS: Lactic Acid 1.4 mmol/L (0.4-2.0)
--- NOTE | 2018-07-29 16:53 | ED.DEP ---
ED Disposition - Plan for ED Patient: Disposition: Home or Assisted Living Chief Complaint: Shortness of Breath Instructions: ED COPD Flare Prescriptions: Azithromycin [Zithromax] 250 mg PO DAILY #4 tab Prednisone [Deltasone] 60 mg PO DAILY #12 tab Referrals: Edvin Oakley III, MD [Primary Care Provider] -
[2018-07-29 16:58] VITALS: BP 127/99; PULSE 80; RESP 18; O2SAT 94
[2018-07-29 17:03] VITALS: BP 142/96; PULSE 90; RESP 18; O2SAT 94
[2018-07-29] MEDS: Ketorolac 30 MG/ML Syringe IV (17:04)
[2018-07-29] MEDS: Azithromycin 250 MG Tablet 500 MG PO (17:11)
== END 2018-07-29 17:12 | disposition home or self-care (01) ==
LOC: ED 17:09
PROVIDERS: Emergency Provider Emergency Medicine; Family Provider Family Medicine; PCP Family Medicine
DX: J44.1 Chronic obstructive pulmonary disease with (acute) exacerbation (principal); F17.200 Nicotine dependence, unspecified, uncomplicated; R07.89 Other chest pain; I10 Essential (primary) hypertension; Z79.899 Other long term (current) drug therapy
CPT/HCPCS: 71045; 80048; 83605; 84484; 85025; 87804; 93005; 94640; 96374; 99285; A4216

== ENCOUNTER 2018-08-14 16:05 | Emergency (ER) | payer MEDICARE, SELFPAY ==
[2018-08-14 16:05] VITALS: BP 154/91; PULSE 104; RESP 20; TEMP 36.7; O2SAT 95; BMI 27.6
--- NOTE | 2018-08-14 16:14 | CT_ITS ---
STUDY: CT CHEST WITHOUT CONTRAST REASON FOR EXAM: Female, 53 years old. Cough, right-sided chest pain RADIATION DOSAGE (If Supplied By Facility): CTDIvol = ( 12.33 ) mGy, DLP = ( 477.77 ) mGycm TECHNIQUE: Transaxial imaging was performed without the administration of intravenous contrast material. Multiplanar coronal and sagittal images were reformatted. Individualized dose optimization techniques were used for this CT. COMPARISON: None. FINDINGS: Few scattered groundglass opacities of the medial left upper lobe and right upper lobe with tree-in-bud micronodules in the bronchovascular structures (axial image 41, right upper lobe) most typically represent infectious causes. No cavitating process or consolidation. Mild fibrotic scarring of the medial right lower lobe. There is no demonstrated pleural abnormality. Normal heart and pericardium. Normal mediastinum. Normal hilar regions. Normal unenhanced pulmonary arteries. Normal aorta arch and descending thoracic aorta. There are multi-level degenerative changes of the thoracic spine. Small Schmorl's node at T10 superior endplate. Small calcification of the left kidney on image 136 may represent a nephrolith versus vascular calcification. Cholecystectomy clips are noted. There is a small hiatal hernia. CT/Chest without Contrast IMPRESSION: Mild pneumonitis of the bilateral upper lobes. No cavitating process or dense consolidation. Electronically Signed: Jimmie Lerma MD at 17:21 EST , Service support ,
--- NOTE | 2018-08-14 16:17 | ED.DCSUM_ITS ---
- ER Visit Summary Date of Service: 08/14/18 Chief Complaint: Right lower rib pain History of Present Illness: The patient is a 53 F who has right lower rib pain. She has had this pain for approximately 3 weeks. She was seen here on July 29 for the same thing. She had a negative x-ray and was discharged home. She had a course of antibiotics for pneumonia for that visit. She denies any falls or injuries. She has had a cough. Is not productive of sputum. Her pain is worse with breathing. She has been trying [id number] NSAIDs at home. Physical Examination: Vital signs reviewed. HEENT exam unremarkable. Heart is regular rate and rhythm. Lungs have diffuse respiratory wheezing. She has chest tenderness in the right lower rib area. Her abdomen is soft and nontender. Her neurologic exam is normal. No rashes. Test Results: CT of the chest reveals pneumonitis with no other acute abnormalities Emergency Department Course and Treatment: Patient was given Toradol. She is still having pain so we will give her 1 dose of oxycodone here. I will send her home with Dolobid and lidocaine patches. She continues to have pain on that right chest wall area. There are no skin lesions that would be consistent with shingles. She will need to follow-up with her PCP. I will give her doxycycline for the pneumonitis Treatment Plan: [] Disposition: Discharge Impression: Pneumonitis, right chest wall pain This note was generated with [employer] dictation software. It may contain incorrect words, spelling, and punctuation that were not noted in review of the chart prior to signing ED Disposition - Plan for ED Patient: Chief Complaint: Other, Pain/Inj Referrals: Edvin Oakley III, MD [Primary Care Provider] -
[2018-08-14] MEDS: Ketorolac 60 MG/2 ML Vial IM (16:24)
--- NOTE | 2018-08-14 16:30 | ED.RN ---
This RN transferred pt to room in wheelchair from triage. Pt assisted into the bed and placed in a gown. Pt then states she was here a few weeks ago and was sent home stating they didn't do anything for me. Emotional support provided, stating this is a different visit and we will talk to the doctor about it. Pt then getting upset states i dont want to see the doctor that saw me last time This RN then states that we do not have control over which doctor picks up their chart. pt then yells well if its the same doctor I'm not seeing him, i will just leave ED physicians made aware.
--- NOTE | 2018-08-14 17:31 | ED.DEP ---
ED Disposition - Plan for ED Patient: Disposition: Home or Assisted Living Chief Complaint: Other, Pain/Inj Instructions: ED Pneumonia Adult Prescriptions: Lidocaine [Lidoderm Patch] 1 patch TOPICAL DAILY #10 patch Doxycycline Hyclate [Vibramycin] 100 mg PO BID #14 capsule Diflunisal [Dolobid] 500 mg PO TID #20 tablet Referrals: Edvin Oakley III, MD [Primary Care Provider] - Additional Instructions: Your prescriptions were electronically transmitted to [facility] in [place]
[2018-08-14] MEDS: oxyCODONE 5 MG Tablet PO (17:56)
[2018-08-14] MEDS: Doxycycline 100 MG CAPSULE PO (17:57)
[2018-08-14 18:00] VITALS: BP 123/79; PULSE 93; RESP 20; O2SAT 98
--- NOTE | 2018-08-14 18:09 | ED.RN ---
discharge instructions, follow up and prescriptions. Pt assisted in getting dressed. Helped into a wheelchair and transferred out to daughters car. Assisted into car. Pt denies any questions or needs.
== END 2018-08-14 18:12 | disposition home or self-care (01) ==
PROVIDERS: Emergency Provider Emergency Medicine; Family Provider Family Medicine; PCP Family Medicine
DX: J18.9 Pneumonia, unspecified organism (principal); J44.0 Chronic obstructive pulmonary disease with (acute) lower respiratory infection; R07.89 Other chest pain; Z79.899 Other long term (current) drug therapy
CPT/HCPCS: 71250; 96372; 99282

== ENCOUNTER 2018-10-18 09:50 | Emergency (ER) | payer MEDICARE, SELFPAY ==
[2018-10-18 09:51] VITALS: BP 152/95; PULSE 112; RESP 22; TEMP 36.6; O2SAT 95; BMI 27.8
--- NOTE | 2018-10-18 10:30 | CT_ITS ---
STUDY: CTA CHEST REASON FOR EXAM: Female, 53 years old. 2 day history of worsening chest pain. History of COPD and emphysema. RADIATION DOSAGE (If Supplied By Facility): CTDIvol = ( 12.69 ) mGy, DLP = ( 372.41 ) mGycm TECHNIQUE: The examination was performed with the intravenous administration of 100 IV Isovue 370. Post-processing of the angiographic images was performed, with multiplanar reformation and 3D reconstruction. Individualized dose optimization techniques were used for this CT. COMPARISON: Comparison is made with prior study dated February 11, 2019. FINDINGS: Normal enhancement of the main pulmonary artery and right and left pulmonary arteries. Normal enhancement of the bilateral peripheral pulmonary arteries. There is no demonstrated pulmonary embolism. Normal thoracic aorta and visualized great vessels. There is no demonstrated aortic dissection. Normal heart and pericardium. Normal mediastinum. Normal hilar regions. Normal visualized trachea and bronchi. The lungs are well expanded. Stable mild increased markings in the anterior aspect of the lingular segment of the left upper lobe suggestive scarring. Normal pleura. Normal chest wall structures. There are degenerative changes of thoracic spine. Small hiatal hernia. CT/CTA Chest W/WO Contrast IMPRESSION: No acute abnormality is seen. Electronically Signed: Ayaz Parker, at 12:29 EDT , Service support ,
--- NOTE | 2018-10-18 10:31 | EKG12_ITS ---
Test Reason : CP Blood Pressure : / mmHG Vent. Rate : 110 BPM Atrial Rate : 110 BPM P-R Int : 124 ms QRS Dur : 100 ms QT Int : 320 ms P-R-T Axes : 052 074 051 degrees QTc Int : 433 ms Sinus tachycardia Nonspecific ST abnormality Abnormal ECG Confirmed by WILMER ARMENDARIZ ([id number]), development editor MONAE LLANOS ([id number]) on 10/21/2018 11:11:45 AM Referred By: DC Confirmed By:WILMER ARMENDARIZ
--- NOTE | 2018-10-18 10:31 | RAD_ITS ---
STUDY: X-RAY CHEST REASON FOR EXAM: Female, 53 years old. Chest pain. TECHNIQUE: Single AP portable view of the chest. COMPARISON: Comparison is made with prior study dated January 26, 2019. FINDINGS: EKG electrodes are seen. Hyperinflation. Scattered calcified granulomas. No acute amount is seen. There is no demonstrated pleural abnormality. Normal size heart. Normal mediastinum and ashley. Normal visualized pulmonary arteries. There is atherosclerotic calcification of the aortic arch with tortuosity. There are diffuse degenerative changes of the visualized thoracic spine. Findings suggestive of a healed fracture in the proximal left humeral neck. There is no demonstrated abnormality of the visualized soft tissue structures of the upper abdomen. RAD/Chest 1 View (Portable) IMPRESSION: Hyperinflation. The lungs are clear. Electronically Signed: Ayaz Parker, at 11:22 EDT , Service support ,
--- NOTE | 2018-10-18 10:38 | ED.DCSUM_ITS ---
- ER Visit Summary Date of Service: 10/18/18 Chief Complaint: Chest pain History of Present Illness: The patient is a 53 F who presents with chest pain that has been constant for the past 2 days. Patient describes the pain as sharp. Patient states the pain is over the left parasternal area. Patient states nothing makes the pain better or worse. Patient admits to some shortness of breath with this. Patient admits to a cough and subjective fever. Patient also admits to some lightheadedness and dizziness. Patient denies any nausea or vomiting. Patient denies any palpitations. Patient states she does have a history of PE but is not currently on any anticoagulants. Physical Examination: Vital signs are stable except for an elevated heart rate of 112. Patient is afebrile. Patient is in no acute distress. Oral mucosa is pink and moist. Neck is supple. Trachea is midline. There is no JVD noted. Heart was regular and tachycardic. Lungs are clear and equal bilateral. There is adequate respiratory effort noted. There is reproducible left upper chest wall tenderness. There is no edema or ecchymosis noted. Abdomen is soft and nontender. Cranial nerves II through XII are intact. There are no focal motor or sensory deficits noted. Test Results: EKG showed sinus tachycardia with a rate of 110. There are nonspecific ST-T wave changes noted. These are unchanged compared to previous EKG. CBC shows slight leukocytosis of 12.4. Potassium was slightly low at 3.3. Troponin was normal at less than 0.015. Portable chest x-ray does not show any acute cardiopulmonary process. CTA of the chest was obtained due to the patient's prior history of DVT and recent travel. There is no evidence of PE. There is no evidence of aortic dissection. Emergency Department Course and Treatment: Patient was given aspirin here. Patient was given a dose of Toradol here. Patient has reproducible chest pain that is been constant for the past 2 days with normal cardiac enzymes. Patient has a RONY risk score of 1. Patient was instructed to follow-up with her primary care physician in 5-7 days. Patient understood and was agreeable with the plan. All questions were answered. Disposition: Discharge home Impression: Chest pain This note was generated with [facility] dictation software. It may contain incorrect words, spelling, and punctuation that were not noted in review of the chart prior to signing ED Disposition - Plan for ED Patient: Disposition: Home or Assisted Living Diagnosis: Chest pain of uncertain etiology Instructions: ED Chest Pain Atypical Unkn Cause Referrals: Edvin Oakley III, MD [Primary Care Provider] - 5-7 Days
[2018-10-18] MEDS: Aspirin 81 MG TAB.CHEW 324 MG PO (10:42)
[2018-10-18 10:51] VITALS: BP 146/85; PULSE 97; RESP 22
[2018-10-18 11:00] VITALS: O2SAT 88
[2018-10-18 11:02] LABS: Absolute Neutrophil Count 10.2 X10^3/uL (2.0-7.7); Basophil# 0.04 X10^3/uL; Basophil% 0.3 % (0-1); Eosinophil# 0.13 X10^3/uL; Eosinophils% 1.1 % (0-5); Hematocrit 44.9 % (37-47); Hemoglobin 14.3 g/dl (12.0-15.0); Lymphocyte % 8.9 % (19-41); Mean Corp Hgb Conc 31.8 g/gl (32-36); Mean Corpuscular Hgb 28.1 pg (27.0-32.0); Mean Corpuscular Volume 88.2 fL (81-99); Mean Platelet Vol. 9.6 fl (6.2-12.0); Monocyte# 0.87 X10^3/uL; Neutrophil % 82.6 % (47-70); POSITIVE DIFFERENTIAL NO; Platelet Count 488 K/mm3 (150-450); RBC Distribution Width CV 14.2 % (11.6-14.6); RBC Distribution Width SD 45.9 fl (35.1-43.9); Red Blood Count 5.09 M/mm3 (4.2-5.4); White Blood Count 12.4 K/mm3 (4.4-11.0)
[2018-10-18 11:03] VITALS: O2SAT 95
[2018-10-18 11:03] LABS: POSITIVE COUNT NO; POSITIVE MORPHOLOGY NO
[2018-10-18 11:15] LABS: Anion Gap 8 (5-15); BUN 9 mg/dL (7-18); BUN/Creat Ratio 11.9 RATIO (10-20); Chloride 100 mmol/L (98-107); Creatinine, Serum 0.76 mg/dL (0.55-1.02); EST Glomerular Filtration Rate 85 mL/min (>60); Est Glom Filt Rate - Afr Amer 103 mL/min (>60); Estimated Creatinine Clearance 77.92 ml/min; Glucose 98 mg/dL (74-106); Potassium 3.3 mmol/L (3.5-5.1); Sodium Level 137 mmol/L (136-145)
[2018-10-18 12:00] VITALS: BP 148/87; PULSE 89; RESP 22; O2SAT 95
[2018-10-18] MEDS: Ketorolac 30 MG/ML Syringe IV (13:18)
[2018-10-18 13:21] VITALS: BP 145/97; PULSE 81; RESP 20; O2SAT 97
== END 2018-10-18 13:22 | disposition home or self-care (01) ==
PROVIDERS: Emergency Provider Emergency Medicine; Family Provider Family Medicine; PCP Family Medicine
DX: R07.9 Chest pain, unspecified (principal); J44.9 Chronic obstructive pulmonary disease, unspecified; I10 Essential (primary) hypertension; F12.90 Cannabis use, unspecified, uncomplicated; Z86.711 Personal history of pulmonary embolism; Z79.899 Other long term (current) drug therapy; Z72.0 Tobacco use
CPT/HCPCS: 71045; 71275; 80048; 84484; 85025; 93005; 96374; 99285; Q9967

== ENCOUNTER 2019-01-21 14:35 | Emergency (ER) | payer MEDICARE, SELFPAY ==
[2019-01-21 14:36] VITALS: BP 143/78; PULSE 101; RESP 23; TEMP 36.7; O2SAT 99; BMI 26.9
[2019-01-21] MEDS: MethylPREDNISolone 125 MG/2 ML Vial IV (14:58)
[2019-01-21] MEDS: 0.9% Normal Saline 1,000 ML 1000 ML IV (14:58)
[2019-01-21] MEDS: DiphenhydrAMINE 50 MG/ML Syringe IV (14:58)
[2019-01-21 15:00] VITALS: BP 134/93; PULSE 92; RESP 15; O2SAT 99
[2019-01-21 15:02] VITALS: PULSE 96; RESP 18
[2019-01-21] MEDS: Ipratropium/Albuterol Sulfate 3 ML AMPUL.NEB INHALATION (15:02)
--- NOTE | 2019-01-21 15:02 | ED.DCSUM_ITS ---
History of Present Illness Chief Complaint: Allergic Reaction Informant: Patient Onset: Today Context: Sudden Onset Timing: Continuous Current Severity: Moderate Maximum Severity: Severe Narrative: The patient presents with allergic reaction. She states that she has a significant allergy to peanuts. She also has history of COPD. She states that she was at an [employer] stand. She bought [employer] bread which had peanuts in it. She ate it became acutely short of breath. She does complain of the sensation of throat swelling. She presented here immediately. She does not have an EpiPen. She has had reaction that is similar to this in the past. She has not taken anything for it today. Prior similar symptoms: Yes Recent Illness/Hospitalization: Yes Past Medical History - Allergies and Home Meds Allergies/Adverse Reactions: Allergies peanut Allergy (Verified 08/14/18 16:06) Anaphylaxis tree nut [Tree Nut] Allergy (Verified 08/14/18 16:06) Anaphylaxis Primary Care Physician: Edvin Oakley III, MD [Primary Care Provider] - Prior records reviewed: Yes Past Medical History: - - COPD Surgical History: cholecystectomy, - - Cholecystectomy, tubal ligation. Smoking Status: Current every day smoker - Family History Paternal Family History: Reports: Seizures - Epilepsy Maternal Family History: Reports: Asthma, COPD, Hypertension Sibling Family History: Reports: Cancer - Lung, Hypertension Review of Systems General: Denies: Chills, Fever, Sweats Eyes: Denies: Visual changes - bilaterally, Diplopia ENT: Reports: Sore throat Cardiovascular: Denies: Chest pain, Palpitations Respiratory: Reports: Dyspnea, Cough Gastrointestinal: Denies: Abdominal pain, Nausea, Vomiting, Diarrhea, Melena, Hematochezia Genitourinary: Denies: Dysuria, Hematuria, Frequency Musculoskeletal: Denies: Back pain, Extremity Pain Skin: Denies: Rash, Wounds Neurological: Denies: Headache, Weakness, Numbness Allergy: Reports: Uticaria Physical Exam Vital Signs/Narrative: Vital Signs Temp Pulse Resp BP Pulse Ox 01/21/19 14:36 98.1 F 101 H 23 H 143/78 H 99 General: Well nourished, Well developed, No Acute Distress Head: Normocephalic, Atraumatic Eyes: Perrl, EOMI ENT: Moist mucous membranes, No rhinorrhea, - - Minimal edema of the posterior oropharynx. Uvula midline. No stridor. No trismus. Neck: Supple, Nontender Cardiovascular: Regular rate, Regular rhythm, No murmurs Respiratory: No distress, Chest nontender, Wheezing Abdomen: Soft, Nontender, Nondistended, Normal bowel sounds Back: Nontender, Normal Inspection Extremities: Nontender, No edema Skin: Normal color, No rash Neurological: Alert, Oriented x3, Cranial nerves II-XII grossly intact, Normal Strength, Normal Sensation Psychological: Normal affect, Normal Mood Diagnostic/Tx/Re-eval - Medical Decision Making The patient presents to the emergency department for allergic reaction. She was complaining of some throat tightness. There is minimal edema of her posterior oropharynx. Patient was given IM EpiPen. She was also given Solu-Medrol, Benadryl, Pepcid. She was observed resolution of symptoms. She is breathing easily. She was not hypoxic or tachycardic. Her blood pressures remained stable at this point, I do feel that she is safe for outpatient follow-up. I am going to prescribe her prednisone and an EpiPen. She is comfortable with this plan of care. ED Disposition - Plan for ED Patient: Disposition: Home or Assisted Living Diagnosis: Allergic reaction Instructions: ALLERGIC REACTION, Other (General) Prescriptions: Prednisone [Deltasone] 60 mg PO DAILY #15 tab Prescription Printed Epi Pen (for allergic rxn) 0.3 mg IM X1 #1 syringe Prescription Printed Referrals: Edvin Oakley III, MD [Primary Care Provider] -
--- NOTE | 2019-01-21 15:08 | EKG12_ITS ---
Test Reason : CP/ALLERGIC REACTION Blood Pressure : / mmHG Vent. Rate : 096 BPM Atrial Rate : 096 BPM P-R Int : 138 ms QRS Dur : 092 ms QT Int : 368 ms P-R-T Axes : 072 075 064 degrees QTc Int : 464 ms Normal sinus rhythm Normal ECG Confirmed by RICH VARGHESE, ROLAN ([id number]), editorial cartoonist BROCK CERON ([id number]) on 01/24/2019 1:56:15 PM Referred By: GEOVANI/JAY Confirmed By:ROLAN VILLANUEVA MD
[2019-01-21 15:57] VITALS: BP 160/93; PULSE 89; RESP 18; O2SAT 95
[2019-01-21 16:39] VITALS: BP 156/100; PULSE 89; RESP 20; O2SAT 95
== END 2019-01-21 16:44 | disposition home or self-care (01) ==
PROVIDERS: Emergency Provider Emergency Medicine; Family Provider Family Medicine; PCP Family Medicine
DX: T78.1XXA Other adverse food reactions, not elsewhere classified, initial encounter (principal); R06.02 Shortness of breath; X58.XXXA Exposure to other specified factors, initial encounter; J44.9 Chronic obstructive pulmonary disease, unspecified; F17.200 Nicotine dependence, unspecified, uncomplicated
CPT/HCPCS: 93005; 94640; 96361; 96374; 96375; 99285; J7030; A4216; J3490

== ENCOUNTER 2019-03-21 00:20 | Inpatient (IN) | payer MEDICARE, SELFPAY ==
[2019-03-21] VITALS (26 sets, daily range): BP systolic 78–152; BP diastolic 52–126; PULSE 63–124; RESP 14–20; TEMP 36.2–39.3; O2SAT 86–100; BMI 29.2; BMI 28.8
--- NOTE | 2019-03-21 00:36 | CT_ITS ---
HISTORY: RT SIDED ABDOMEN PAIN X 2 DAYS BUT WORSE NOW,ELEVATED WBC HX:ASTHMA,COPD,GERD,HLD,HTN,SEIZURES SURGERY:CHOLECYSTECTOMY EXAMINATION: CT Abdomen And Pelvis W/ Contrast TECHNIQUE: Helically acquired images were obtained of the abdomen and pelvis following IV contrast. A radiation dose optimization technique was used for this scan. IV Contrast dosage and agent: 100ML Isovue 370 Oral contrast: None. COMPARISON: 10/17/2016 FINDINGS: Lower thorax: Mild hyperinflation. No pleural effusion or pericardial effusion. Small hiatal hernia. Cholecystectomy with surgical clips within gallbladder fossa. No biliary dilatation. Normal liver, spleen, and pancreas. Both kidneys show normal size and position. Heterogenous enhancement of the right kidney with corticomedullary poorly defined areas of decreased attenuation typical for acute pyelonephritis, greatest involving the upper and lower pole regions of the right kidney. Right renal asymmetric mild perinephric edema greatest at the lower pole. No discrete abscess. No hydronephrosis or hydroureter identified. Tiny 2 mm calyceal stone or possibly vascular calcification, mid pole of the left kidney. The left kidney shows no obvious findings of acute pyelonephritis. The adrenal glands are not enlarged. Abdominal aorta is atherosclerotic and normal in caliber. No right to peritoneal lymph node enlargement. GI tract: No obstruction. Normal appendix. Liquid stool within the right colon. The left colon is decompressed and shows little stool. Increase fluid within nondilated small bowel loops in keeping with ileus. Pelvis: Anteverted uterus which is normal in size. Urinary bladder is poorly distended. No urinary bladder stones identified. No free fluid or lymph node enlargement. Bones: No acute osseous abnormality. CT/Abdomen/Pelvis W IV Cont ONLY IMPRESSION: 1. Right renal multifocal acute pyelonephritis with right perinephric mild edema. No abscess or hydronephrosis identified. 2. Mild ileus compatible with reactive ileus. 3. Normal appendix. Individualized dose optimization techniques were used for this CT. at 0216 Reported and signed by: Jah De León MD Electronically Signed: Jah De León, at 2:15 EDT Tel , Service support ,
--- NOTE | 2019-03-21 00:37 | ED.DCSUM_ITS ---
History of Present Illness Chief Complaint: Abd Pain Informant: Patient Narrative: Presents to the emergency department with approximately 2 and half days of right-sided abdominal pain. She describes sharp achy pain in the right lower abdomen and right flank. She states she does not have any dysuria but does have urgency to urinate. She has some pain in her right lower back. She is felt some chills tonight. She is been using ibuprofen intermittently. She does have a history of cholecystectomy. No other abdominal surgeries. Slight nausea per patient. No vomiting. She is having no diarrhea. Slight constipation. Current severity is moderate. Worse by pushing on her abdomen. Denies . - Past Medical History (1) COPD (chronic obstructive pulmonary disease) Status: Acute (2) Depression Status: Chronic (3) HLD (hyperlipidemia) Status: Chronic (4) HTN (hypertension) Status: Chronic (5) History of alcohol use disorder Status: Chronic (6) Iron deficiency anemia Status: Chronic (7) Marijuana smoker Status: Chronic (8) Nicotine addiction Status: Chronic (9) Obesity (BMI 30-39.9) Status: Chronic (10) Pulmonary hypertension Status: Chronic (11) Thrombocytosis Status: Chronic (12) Seizure Status: Suspected Past Medical History - Allergies and Home Meds Allergies/Adverse Reactions: Allergies peanut Allergy (Verified 03/21/19 00:26) Anaphylaxis tree nut [Tree Nut] Allergy (Verified 03/21/19 00:26) Anaphylaxis Primary Care Physician: Edvin Oakley III, MD [Primary Care Provider] - Prior records reviewed: Yes Past Medical History: - - See problem list Surgical History: cholecystectomy, - - Cholecystectomy, tubal ligation. Smoking Status: Current every day smoker Alcohol: None Drugs: None - Family History Paternal Family History: Reports: Seizures - Epilepsy Maternal Family History: Reports: Asthma, COPD, Hypertension Sibling Family History: Reports: Cancer - Lung, Hypertension Review of Systems General: Reports: Chills. Denies: Fever, Sweats Eyes: Denies: Visual changes - bilaterally, Diplopia ENT: Denies: Rhinorrhea, Sore throat Cardiovascular: Denies: Chest pain, Palpitations Respiratory: Denies: Dyspnea, Cough, Dyspnea on exertion Gastrointestinal: Reports: Abdominal pain, Nausea. Denies: Vomiting, Diarrhea, Melena, Hematochezia Genitourinary: Denies: Dysuria, Hematuria, Frequency Musculoskeletal: Reports: Back pain. Denies: Extremity Pain Skin: Denies: Rash, Wounds Neurological: Denies: Headache, Weakness, Numbness Physical Exam Vital Signs/Narrative: Vital Signs Temp Pulse Resp BP Pulse Ox 03/21/19 00:30 122 H 18 135/90 H 96 03/21/19 00:26 18 03/21/19 00:21 100 F H 124 H 18 139/126 H 96 General: Well nourished, Well developed, No Acute Distress Head: Normocephalic, Atraumatic Eyes: Perrl, EOMI ENT: Moist mucous membranes, No rhinorrhea Neck: Supple, Nontender Cardiovascular: Regular rhythm, No murmurs, Tachycardia. Negative for: Regular rate Respiratory: No distress, CTA bilaterally, Chest nontender Abdomen: Soft, Nondistended, Normal bowel sounds, Tender - Right lower and right flank.. Negative for: Nontender, Guarding, Rebound tenderness, Pulsatile mass Back: Nontender, Normal Inspection Extremities: Nontender, No edema Skin: Normal color, No rash Neurological: Alert, Oriented x3, Cranial nerves II-XII grossly intact, Normal Strength, Normal Sensation Psychological: Normal affect, Normal Mood Diagnostic/Tx/Re-eval - Medical Decision Making IV established given IV fluids Zofran Toradol morphine. Lab work and CT abdomen pelvis obtained. Cytosis greater than 25,000. Take normal. Recent renal function shows a normal creatinine. Liver function test showed no major abnormalities other than a elevated alk phos. Blood and urine culture sent. Urinalysis shows elevated white blood cell count and 1+ bacteria. TM and pelvis shows right-sided pyelonephritis picture with inflammation. Reactive ileus noted. Patient was resuscitated with 2.5 L of fluid. This is approximately 30 cc/kg. Heart rates down to normal. Blood pressure has normalized. Patient also given 1 dose of fentanyl for pain. At this time the patient has severe sepsis without shock. She will be started on antibiotics and admitted to the hospitalist. - Critical Care Time Critical care time (excluding procedures): 30-74 minutes ED Disposition - Plan for ED Patient: Disposition: Acute Care Hospital [facility] Diagnosis: Acute pyelonephritis, Severe sepsis Referrals: Edvin Oakley III, MD [Primary Care Provider] -
[2019-03-21] MEDS: 0.9% Normal Saline 1,000 ML 1000 ML IV ×2 (00:46→01:53)
[2019-03-21] MEDS: Ondansetron 4 MG/2 ML Vial IV (00:47)
[2019-03-21 00:48] LABS: Absolute Lymphocyte Count 3.24 X10^3/uL (0.83-4.51); Basophil# 0.05 X10^3/uL; Basophil% 0.2 % (0-1); Eosinophil# 0.02 X10^3/uL; Eosinophils% 0.1 % (0-5); Hematocrit 39.7 % (37-47); Lymphocyte # 3.24 X10^3/ul (4.0); Lymphocyte % 12.8 % (19-41); Mean Corp Hgb Conc 32.7 g/dL (32-36); Mean Corpuscular Hgb 29.1 pg (27.0-32.0); Mean Corpuscular Volume 88.8 fL (81-99); Mean Platelet Vol. 9.2 fl (6.2-12.0); Monocyte# 2.74 X10^3/uL; Monocyte% 10.9 % (0-10); NRBC Flagged by Analyzer 0 % (0-5); Neutrophil # 19.04 X10^3/uL (2.7-7.7); Neutrophil % 75.4 % (47-70); POSITIVE DIFFERENTIAL YES; Platelet Count 575 K/mm3 (150-450); RBC Distribution Width CV 13.1 % (11.6-14.6); RBC Distribution Width SD 42.8 fl (35.1-43.9); Red Blood Count 4.47 M/mm3 (4.2-5.4); White Blood Count 25.3 K/mm3 (4.4-11.0)
[2019-03-21] MEDS: Ketorolac 15 MG/ML Vial IV (00:48)
[2019-03-21 00:49] LABS: Differential Indicated SCAN CRITERIA MET
[2019-03-21] MEDS: Morphine 4 MG/ML Syringe IV (00:50)
[2019-03-21 00:55] LABS: Internal QC Validated? YES +Cl - CLEAR BKGD
[2019-03-21 00:56] LABS: Mucous, Urine 0 SEEN /hpf (<or=2+)
[2019-03-21 00:57] LABS: Color, Urine Yellow (Yellow); Glucose, Dipstick Normal (Normal); Ketone-Dipstick Negative (Negative); Leukocyte Esterase-Dipstick 500 /ul (Negative); Nitrite-Dipstick Negative (Negative); Occult Blood-Urine 150 /ul (Negative); Protein-Dipstick 100 mg/dl (Negative); Specific Gravity, Urine 1.005 (1.002-1.030); Urine Bilirubin Dipstick Negative (Negative); Urine Clarity Sl. Cloudy (Clear); Urine Urobilinogen 4 mg/dl (Normal)
[2019-03-21 01:04] LABS: Pregnancy, Serum, hCG Quali. NEGATIVE Negative
[2019-03-21 01:07] LABS: ALB/GLOB Ratio 0.6 RATIO (0.9-2.4); AST(SGOT) 42 U/L (15-37); Alanine Aminotransfer ALT/SGPT 42 U/L (13-56); Albumin, Serum 2.8 g/dL (3.2-5.0); Alkaline Phosphatase 236 U/L (45-117); Anion Gap 6 (5-15); BUN 9 mg/dL (7-18); BUN/Creat Ratio 10.8 RATIO (10-20); Chloride 99 mmol/L (98-107); Creatinine, Serum 0.83 mg/dL (0.55-1.02); EST Glomerular Filtration Rate 77 mL/min (>60); Est Glom Filt Rate - Afr Amer 93 mL/min (>60); Estimated Creatinine Clearance 71.35 ml/min; Glucose 108 mg/dL (74-106); Lipase 57 U/L (73-393); Potassium 3.4 mmol/L (3.5-5.1); Protein, Total 7.8 g/dL (6.4-8.2); Sodium Level 134 mmol/L (136-145)
[2019-03-21 01:10] LABS: White Blood Cells 50-100 SEEN /hpf (0-5)
[2019-03-21 01:11] LABS: Bacteria 1+ /hpf (None Seen); Red Blood Cells-Urine 5-10 SEEN /hpf (0-5); Squamous Epithelial Cells - UA 0-5 SEEN /hpf (5-10)
[2019-03-21 01:11] LABS: Differential Comment SCANNED
[2019-03-21 01:12] LABS: Lactic Acid 1.2 mmol/L (0.4-2.0); Platelet Estimate MOD INC (ADEQ)
[2019-03-21] MEDS: fentaNYL 100 MCG/2 ML Ampul 50 MCG IV (01:57)
--- NOTE | 2019-03-21 01:59 | ED.RN ---
glasses placed in pts personal bag.
--- NOTE | 2019-03-21 02:41 | HP.PCM_ITS ---
Problem List (1) Acute pyelonephritis Status: Acute (2) Severe sepsis Status: Acute (3) COPD (chronic obstructive pulmonary disease) Status: Chronic Qualifiers: (4) History of alcohol use disorder Status: Chronic (5) Seizure Status: Suspected (6) Obesity (BMI 30-39.9) Status: Chronic (7) Depression Status: Chronic Qualifiers: (8) Marijuana smoker Status: Chronic (9) HLD (hyperlipidemia) Status: Chronic Qualifiers: (10) HTN (hypertension) Status: Chronic Qualifiers: (11) Nicotine addiction Status: Chronic Qualifiers: (12) Pulmonary hypertension Status: Chronic (13) Thrombocytosis Status: Chronic History of Present Illness Date of Admission: 03/21/19 Chief Complaint: right flank pain, generalized illness The patient is a 53 year old female patient with a past medical history of COPD, obesity, smoking tobacco and marijuana, presents to the emergency room with ab dominal pain and right flank pain. The patient states she started self- medicating with Azo on March 08 due to urinary frequency and burning, she thought the issue was under control until this past Wednesday when she began having severe burning with urination and abdominal pain with nausea. She currently has a low-grade fever and is tachycardic. Her initial laboratory studies for CBC are significant for white blood cell count 25,000, hemoglobin 13, hematocrit 39 platelets 575, BMP with sodium 134, potassium 3.4, bicarb 99, chloride 29, BUN 9, creatinine 0.83, calcium 9.0, lipase 57 normal, and lactate 1.2. Urinalysis is positive and CT scan shows right kidney with multifocal pyelonephritis and mild perinephric edema along with a mild ileus. The patient will be admitted to progressive care unit treated for pyelonephritis and sepsis. Past Medical History Past Medical History (Chronic Problems): Chronic Problems COPD (chronic obstructive pulmonary disease) (Chronic) History of alcohol use disorder (Chronic) Obesity (BMI 30-39.9) (Chronic) Iron deficiency anemia (Chronic) Depression (Chronic) Marijuana smoker (Chronic) HLD (hyperlipidemia) (Chronic) HTN (hypertension) (Chronic) Nicotine addiction (Chronic) Pulmonary hypertension (Chronic) Thrombocytosis (Chronic) Allergies peanut Allergy (Verified 03/21/19 00:26) Anaphylaxis tree nut [Tree Nut] Allergy (Verified 03/21/19 00:26) Anaphylaxis Home Medications: Ambulatory Orders Medication Instructions Recorded Albuterol Aerosols [Ventolin 2.5 mg INHALATION Q4H PRN #25 vial 10/20/17 Aerosols] Albuterol Sulfate [Ventolin Hfa] 1 - 2 puff INHALATION PRN PRN 05/18/18 Ipratropium/Albuterol Sulfate 3 ml INHALATION Q6H PRN 05/18/18 [Duoneb] Mometasone/Formoterol [Dulera 200 1 - 2 puff INHALATION DAILY 05/18/18 Mcg/5 Mcg Inhaler] Guaifenesin [Mucinex] 1,200 mg PO BID #20 tablet 05/19/18 Diflunisal [Dolobid] 500 mg PO TID #20 tablet 08/14/18 Epi Pen (for allergic rxn) 0.3 mg IM X1 #1 syringe 01/21/19 Gabapentin [Neurontin] 300 mg PO TID 03/21/19 Surgical History: cholecystectomy, - - Cholecystectomy, tubal ligation. 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 Denies: Chills, Weight Change HEENT: Denies: Head Aches, Sinus Congestion, Sinus Drainage Cardiovascular: Denies: Chest Pain, Palpitations Respiratory: Denies: Cough, Shortness of breath at rest, Sputum production Gastrointestinal: Reports: Abdominal Pain, Nausea, Vomiting Genitourinary: Reports: Dysuria, Frequency Musculoskeletal: Denies: Joint Pain, Joint Tenderness Skin: Denies: Rash, Wounds Neurological: Denies: Numbness, Tingling, Focal weakness Psychiatric: Denies: Anxiety, Depression, Homicidal Ideations, Suicidal Ideations Hematologic/ Lymphatic: Denies: Easy Bruising, Easy Bleeding VTE Information - Inpt Only VTE Present on Admission: No VTE Mechan Device Prophylaxis: None VTE Pharm Prophylaxis ordered?: Yes Patient Problems: Active and Suspected Problems Acute pyelonephritis (Acute) Severe sepsis (Acute) - Physical Exam General: Alert, Oriented x3, Cooperative HEENT: Atraumatic, Normocephalic Neck: Supple Lungs: Normal air movement, Wheezes Cardiovascular: Regular Rhythm, Normal S1, Normal S2, No murmurs, Tachycardic Abdomen: Bowel Sounds Present, Tender - rt CVA+ Extremities: No edema, Capillary Refill Less than 3 Seconds Skin: No rashes Musculoskeletal: No Tenderness to Palpation of Joints or Extremities Neurological: Neuro grossly intact Psych/Mental Status: Normal Affect, Appropriate Vital Signs Temp Pulse Resp BP Pulse Ox 99.5 F H 95 16 85/52 L 96 03/21/19 02:00 03/21/19 02:00 03/21/19 02:00 03/21/19 02:00 03/21/19 02:14 Oxygen Flow Rate (L/min) 2 Oxygen Delivery Method Nasal Cannula Weight: 175 lb 7.807 oz Body Mass Index (BMI) 29.2 Intake and Output for Last 24 Hours 03/19/19 03/20/19 03/21/19 23:59 23:59 23:59 Intake Total 1999 Balance 1999 Laboratory Tests Past 24 Hrs 03/21/19 03/21/19 03/21/19 00:40 00:40 00:40 WBC 25.3 H RBC 4.47 Hgb 13.0 Hct 39.7 MCV 88.8 MCH 29.1 MCHC 32.7 RDW Std Deviation 42.8 RDW Coeff of Madhu 13.1 Plt Count 575 H MPV 9.2 Immature Gran % (Auto) 0.600 Neut % (Auto) 75.4 H Lymph % (Auto) 12.8 L [place] % (Auto) 10.9 H Eos % (Auto) 0.1 Baso % (Auto) 0.2 Absolute Neuts (auto) 19.0 H Absolute Lymphs (auto) 3.24 Nucleated RBC % 0 Differential Comment SCANNED Diff Path Review May foll Platelet Estimate MOD INC Sodium 134 L Potassium 3.4 L Chloride 99 Carbon Dioxide 29.0 Anion Gap 6 BUN 9 Creatinine 0.83 Estim Creat Clear Calc 71.35 Est GFR (MDRD) Af Amer 93 Est GFR (MDRD) Non-Af 77 BUN/Creatinine Ratio 10.8 Glucose 108 H Lactic Acid 1.2 Calcium 9.0 Total Bilirubin 0.80 AST 42 H ALT 42 Alkaline Phosphatase 236 H Total Protein 7.8 Albumin 2.8 L Globulin 5.0 H Albumin/Globulin Ratio 0.6 L Lipase 57 L Serum , Qual Urine Color Urine Clarity Urine pH Ur Specific [place] Urine Protein Urine Glucose (UA) Urine Ketones Urine Occult Blood Urine Nitrite Urine Bilirubin Urine Urobilinogen Ur Leukocyte Esterase Urine RBC Urine WBC Ur Squamous Epith Cells Urine Bacteria Urine Mucus 03/21/19 03/21/19 00:40 00:50 WBC RBC Hgb Hct MCV MCH MCHC RDW Std Deviation RDW Coeff of Madhu Plt Count MPV Immature Gran % (Auto) Neut % (Auto) Lymph % (Auto) [place] % (Auto) Eos % (Auto) Baso % (Auto) Absolute Neuts (auto) Absolute Lymphs (auto) Nucleated RBC % Differential Comment Diff Path Review Platelet Estimate Sodium Potassium Chloride Carbon Dioxide Anion Gap BUN Creatinine Estim Creat Clear Calc Est GFR (MDRD) Af Amer Est GFR (MDRD) Non-Af BUN/Creatinine Ratio Glucose Lactic Acid Calcium Total Bilirubin AST ALT Alkaline Phosphatase Total Protein Albumin Globulin Albumin/Globulin Ratio Lipase Serum , Qual NEGATIVE Urine Color Yellow Urine Clarity Sl. Cloudy Urine pH 7.0 Ur Specific [place] 1.005 Urine Protein 100 H Urine Glucose (UA) Normal Urine Ketones Negative Urine Occult Blood 150 H Urine Nitrite Negative Urine Bilirubin Negative Urine Urobilinogen 4 H Ur Leukocyte Esterase 500 H Urine RBC 5-10 SEEN Urine WBC 50-100 SEEN Ur Squamous Epith Cells 0-5 SEEN Urine Bacteria 1+ Urine Mucus 0 SEEN Assessment/Plan All Active Problems Acute pyelonephritis (Acute) Severe sepsis (Acute) Bilateral pulmonary embolism (Resolved) CVA (cerebral vascular accident) (Resolved) History of suicide attempt (Resolved) Chronic Problems COPD (chronic obstructive pulmonary disease) (Chronic) History of alcohol use disorder (Chronic) Obesity (BMI 30-39.9) (Chronic) Iron deficiency anemia (Chronic) Depression (Chronic) Marijuana smoker (Chronic) HLD (hyperlipidemia) (Chronic) HTN (hypertension) (Chronic) Nicotine addiction (Chronic) Pulmonary hypertension (Chronic) Thrombocytosis (Chronic) Plan 1. Pyelonephritis right kidney?IV Rocephin daily, repeat CBC BMP in the morning, patient will be admitted to progressive care unit 2. Sepsis?IV fluid resuscitation per sepsis protocol, repeat lactate per routine 3. COPD?breathing treatments will be ordered as needed 4. History of alcohol abuse monitor for signs of alcohol withdrawal 5. Hyperlipidemia?continue statin 6. Hypertension continue home medication 7. Depression continue routine medication 8. DVT prophylaxis?low molecular weight heparin 9. Tobacco use disorder, marijuana smoker?cessation encouraged patient did not want a nicotine patch at this time Code Visit Inpatient E&M: 53811 Init Hosp L3
[2019-03-21] MEDS: Ceftriaxone 1 GM/50 ML BAG IV ×2 (02:42→04:32)
[2019-03-21] MEDS: Ipratropium/Albuterol Sulfate 3 ML AMPUL.NEB INHALATION ×2 (02:57→08:33)
--- NOTE | 2019-03-21 03:34 | NURSING ---
PT ARRIVED FROM ED. PT WALKED FROM THE ED BED TO OUR BED. ONCE PT GOT BACK INTO BED. BP CHECKED 78/57. NS BOLUS 500 ORDERED.
[2019-03-21] MEDS: Gabapentin 300 MG Capsule PO ×3 (05:02→22:52)
[2019-03-21] MEDS: 0.9% Normal Saline 1,000 ML 125 ML IV (05:02)
[2019-03-21 05:56] LABS: Absolute Lymphocyte Count 2.68 X10^3/uL (0.83-4.51); Absolute Neutrophil Count 15.4 X10^3/uL (2.0-7.7); Basophil# 0.04 X10^3/uL; Basophil% 0.2 % (0-1); Eosinophil# 0.03 X10^3/uL; Eosinophils% 0.1 % (0-5); Hematocrit 31.5 % (37-47); Hemoglobin 10.1 g/dL (12.0-15.0); Lymphocyte # 2.68 X10^3/ul (4.0); Lymphocyte % 13.3 % (19-41); Mean Corp Hgb Conc 32.1 g/dL (32-36); Mean Corpuscular Hgb 28.9 pg (27.0-32.0); Mean Corpuscular Volume 90.3 fL (81-99); Mean Platelet Vol. 9.5 fl (6.2-12.0); Monocyte# 1.97 X10^3/uL; Monocyte% 9.8 % (0-10); NRBC Flagged by Analyzer 0 % (0-5); Neutrophil # 15.35 X10^3/uL (2.7-7.7); POSITIVE DIFFERENTIAL YES; Platelet Count 454 K/mm3 (150-450); RBC Distribution Width CV 13.3 % (11.6-14.6); Red Blood Count 3.49 M/mm3 (4.2-5.4); White Blood Count 20.2 K/mm3 (4.4-11.0)
[2019-03-21 05:59] LABS: Differential Indicated SCAN CRITERIA MET
[2019-03-21 06:22] LABS: Anion Gap 9 (5-15); BUN 9 mg/dL (7-18); Calcium,Total 7.5 mg/dL (8.5-10.1); Chloride 106 mmol/L (98-107); Creatinine, Serum 0.69 mg/dL (0.55-1.02); EST Glomerular Filtration Rate 94 mL/min (>60); Est Glom Filt Rate - Afr Amer 114 mL/min (>60); Estimated Creatinine Clearance 85.82 ml/min; Glucose 106 mg/dL (74-106); Magnesium 1.5 mg/dL (1.6-2.6); Potassium 3.1 mmol/L (3.5-5.1); Sodium Level 140 mmol/L (136-145)
[2019-03-21 07:09] LABS: Differential Comment SCANNED; Platelet Estimate SLT INC (ADEQ)
--- NOTE | 2019-03-21 07:55 | PCM.PN.BLA ---
Progress Note This is a 53 years old female patient presented to the emergency room because of right abdominal and right flank pain with chills and mild nausea and she was found to have acute right multifocal pyelonephritis with sepsis. This morning, patient complaining of chills and continued to have right abdominal/right flank pain. She denies chest pain or shortness of breath. Denies any urinary symptoms. She is not tachycardic, blood pressure stabilized and she has been afebrile. Apart from right CVA tenderness, physical examination essentially unremarkable. CT scan abdomen and pelvis with IV contrast reviewed. She was started on Rocephin. Initially, blood pressure was borderline but improved with IV fluid bolus. White blood cell count started to trend down. Plan: Change IV Rocephin to 2 g every 24 hours, replace potassium, repeat BMP and CBC tomorrow morning.
[2019-03-21] MEDS: Acetaminophen 325 MG Tablet 650 MG PO ×2 (07:59→18:54)
[2019-03-21] MEDS: Magnesium Oxide 400 MG Tablet PO ×2 (07:59→17:30)
[2019-03-21] MEDS: HYDROmorphone 0.5 MG/0.5 ML SYRINGE IV (08:00)
[2019-03-21] MEDS: Enoxaparin 40 MG/0.4 ML Syringe SC (10:19)
[2019-03-21] MEDS: guaiFENesin 1,200 MG Tablet 1200 MG PO ×2 (10:19→22:52)
[2019-03-21 12:34] LABS: Pathologist Review Reviewed
[2019-03-21 12:34] LABS: Pathologist Review Reviewed
[2019-03-21] MEDS: 0.9% Normal Saline 1,000 ML 100 ML IV ×2 (14:29→23:42)
--- NOTE | 2019-03-21 14:58 | CHAPLAIN ---
Type of Pastoral Visit _x__ Initial Visit ___ Follow-up Visit ___ On-call Visit ___ General Patient Visit ___ Spiritual Assessment ___ Family Conference ___ Bereavement ___ Rapid Response ___ Code Blue ___ Other (describe below) Pastoral Care Referral From _x__ Patient ___ Family ___ Nurse ___ Physician ___ [employer] Pipe Layer ___ Customer Operations Intern ___ Other (describe below) Sacrament/Intervention _x__ Active listening ___ Anointing ___ Confucianism _x__ Bereavement ___ Communion _x__ Tara exploration ___ _x__ Life review _x__ Prayer ___ Reconciliation ___ Sacrament of Sick _x__ Supportive presence ___ Wedding ___ Other (describe below) Pastoral Comments patient discloses emotional and relational issues in her life; pt has grief and accompanying emotional difficulties due to the suicide of someone close; pt does not have a temple connection at this time but was raised Mennonite and is open to spiritual care and support
--- NOTE | 2019-03-21 15:00 | CASEMGMT ---
Addendum entered by Melony Hobbs 03/21/19 16:03: Pt declines needing/wanting HHC @ discharge. Original Note: RN CM PACKING MACHINE TENDER CM to room to meet with patient for initial transition planning/care coordination assessment. RN ALIN introduced self and role at [facility]. Pt voices understanding and consents to assessment at this time. Pt resting in bed at this time. Pt is A/O at this time and answers all questions appropriately. Care providers, pharmacy, and demographics verified/updated at this time. PCP: Edvin Oakley Specialists: None Preferred Pharmacy: [facility] Insurance: [employer]-- has a [employer] but does not remember her name Prescription Benefit: Yes Living Will/HPOA: does not have LW or HCPOA . Interested in more information and would like to talk with SW at this time to complete paperwork. ARIANA Ansari notified and order placed. LNOK: Has 4 adult children and 2 sisters. Pt states 3 of her adult children live close by and are supportive. Living Arrangements: Lives with her daughter, Swetha, on the 3rd floor attic. is independent w/ADL's and her and her daughter share home mgmt tasks. Transportation: Pt states she drives but does not have a vehicle. States her boyfriend or her daughter's boyfriend often help with transportation and should be able to take her home @ Discharge. Pt states that she is aware that [employer] provides transportation services as well but she has never utilized their services. DME: Nebulizer Pt states no need for further DME at this time. HHC/SNF: No history of SNF. Has used HHC in the past after CVA but does not remember name of the agency. Pt wishes to return home and states has no concerns with going home at time of discharge. Pt states she uses marijuana about 2-3 x's/week and smokes about 1/2 PPD. She states she has history of ETOH abuse in the past but has not drank since 2016. CM to follow for any discharge planning/needs. Pt voices no further concerns/needs at this time. Advised pt to ask for CM if any further questions/concerns/needs arise. Voices understanding. PLAN: Home w/family support and discharge plans in place. Delgado MCCONNELL RN, CM
[2019-03-21] MEDS: Albuterol 2.5 MG/3 ML VIAL.NEB. INHALATION (18:28)
[2019-03-21] MEDS: Ketorolac 30 MG/ML Syringe IV ×2 (18:54→22:53)
[2019-03-21] MEDS: 0.9% NaCl Peripheral Flush Adult/Peds IV (18:54)
[2019-03-22] VITALS (15 sets, daily range): BP systolic 99–130; BP diastolic 66–84; PULSE 65–91; RESP 16–18; TEMP 36.6–37.3; O2SAT 96–100
[2019-03-22] MEDS: Ketorolac 30 MG/ML Syringe IV ×3 (05:50→21:51)
[2019-03-22] MEDS: Gabapentin 300 MG Capsule PO ×3 (05:50→23:04)
--- NOTE | 2019-03-22 06:13 | NURSING ---
0600 in room to give pt morning medications. pt states she was feeling short of breath, trouble taking deep breath. At this time pt was on RA, satting 96%. Pt place don 2L O2 NC for comfort, began satting 98%. Called RT for breathing tx per pt's request. RADHA Soliz
[2019-03-22 06:18] LABS: Absolute Lymphocyte Count 1.84 X10^3/uL (0.83-4.51); Absolute Neutrophil Count 14.3 X10^3/uL (2.0-7.7); Basophil# 0.04 X10^3/uL; Basophil% 0.2 % (0-1); Eosinophils% 1.1 % (0-5); Hematocrit 34.1 % (37-47); Hemoglobin 10.7 g/dL (12.0-15.0); Lymphocyte # 1.84 X10^3/ul (4.0); Lymphocyte % 9.8 % (19-41); Mean Corp Hgb Conc 31.4 g/dL (32-36); Mean Corpuscular Hgb 28.8 pg (27.0-32.0); Mean Corpuscular Volume 91.9 fL (81-99); Mean Platelet Vol. 9.4 fl (6.2-12.0); Monocyte# 2.24 X10^3/uL; NRBC Flagged by Analyzer 0 % (0-5); Neutrophil # 14.27 X10^3/uL (2.7-7.7); Neutrophil % 76.4 % (47-70); POSITIVE DIFFERENTIAL YES; Platelet Count 511 K/mm3 (150-450); RBC Distribution Width CV 13.9 % (11.6-14.6); RBC Distribution Width SD 47.2 fl (35.1-43.9); Red Blood Count 3.71 M/mm3 (4.2-5.4); White Blood Count 18.7 K/mm3 (4.4-11.0)
[2019-03-22 06:22] LABS: Differential Indicated SCAN CRITERIA MET
[2019-03-22 06:32] LABS: Anion Gap 6 (5-15); BUN 8 mg/dL (7-18); Calcium,Total 8.6 mg/dL (8.5-10.1); Chloride 110 mmol/L (98-107); Creatinine, Serum 0.57 mg/dL (0.55-1.02); EST Glomerular Filtration Rate 117 mL/min (>60); Est Glom Filt Rate - Afr Amer 142 mL/min (>60); Estimated Creatinine Clearance 103.89 ml/min; Glucose 99 mg/dL (74-106); Potassium 4.2 mmol/L (3.5-5.1); Sodium Level 143 mmol/L (136-145)
[2019-03-22] MEDS: Ipratropium/Albuterol Sulfate 3 ML AMPUL.NEB INHALATION ×3 (06:34→19:40)
[2019-03-22 06:54] LABS: Differential Comment SCANNED
[2019-03-22 06:55] LABS: Platelet Estimate MOD INC (ADEQ)
[2019-03-22] MEDS: Magnesium Oxide 400 MG Tablet PO (07:59)
[2019-03-22] MEDS: guaiFENesin 1,200 MG Tablet 1200 MG PO ×2 (08:00→21:51)
[2019-03-22] MEDS: Enoxaparin 40 MG/0.4 ML Syringe SC (08:00)
--- NOTE | 2019-03-22 08:05 | PCM.PROGNOTE ---
Patient Problems: Active and Suspected Problems Sepsis (Acute) Acute pyelonephritis (Acute) Subjective: Chief complaint: Follow-up after admission for acute right multifocal pyelonephritis with sepsis. Patient seen and examined. No acute events overnight. Her right abdominal and right flank pain improved but still there. Still complaining of being cold and shivering although she has been afebrile. She denied nausea vomiting. She denied urinary symptoms. All over, she is feeling a little bit better. Her vital signs are stable. - Physical Exam General: Alert, Oriented x3, Cooperative, No apparent distress HEENT: Atraumatic, PERRLA, EOMI, Normocephalic Oral: Moist Mucosa, No Gingival or Mucosal Lesions/ Ulcerations Neck: Supple, No JVD, Negative Carotid Bruits, Trachea Midline, Thyroid Normal Size and Texture Lungs: Clear to auscultation, No rhonchi, No wheeze, No rales, Diminished Cardiovascular: Regular rate, Regular Rhythm, Normal S1, Normal S2, No murmurs, PMI Normal Abdomen: Bowel Sounds Present, Soft, Non-Distended, No Hepato-splenomegaly, Obese, Tender - right CVA tenderness. Extremities: No clubbing, No cyanosis, No edema Skin: No rashes, No breakdown Lymphatic: No Cervical, Supraclavicular, or Inguinal Adenopathy Neurological: Cranial nerves II-XII grossly intact, Motor Exam 5/5 strength throughout Psych/Mental Status: Normal Affect, Appropriate, Alert and oriented to time, place, person, mood and affect Vital Signs Temp Pulse Resp BP Pulse Ox 98.6 F 69 18 117/77 97 03/22/19 03:15 03/22/19 07:54 03/22/19 06:34 03/22/19 03:15 03/22/19 06:34 Oxygen Flow Rate (L/min) 2.5 Oxygen Delivery Method Nasal Cannula Weight: 172 lb 13.478 oz Body Mass Index (BMI) 28.8 Intake and Output for Last 24 Hours 03/20/19 03/21/19 03/22/19 23:59 23:59 23:59 Intake Total 6328.33 / 6328.33 100 / 100 Output Total 2075 / 2075 Balance 4253.33 / 4253.33 100 / 100 Laboratory Tests Past 24 Hrs 03/21/19 03/21/19 03/22/19 00:40 05:30 05:55 WBC 18.7 H RBC 3.71 L Hgb 10.7 L Hct 34.1 L MCV 91.9 MCH 28.8 MCHC 31.4 L RDW Std Deviation 47.2 H RDW Coeff of Madhu 13.9 Plt Count 511 H MPV 9.4 Immature Gran % (Auto) 0.500 Neut % (Auto) 76.4 H Lymph % (Auto) 9.8 L [place] % (Auto) 12.0 H Eos % (Auto) 1.1 Baso % (Auto) 0.2 Absolute Neuts (auto) 14.3 H Absolute Lymphs (auto) 1.84 Nucleated RBC % 0 Differential Comment SCANNED Diff Path Review Reviewed Reviewed November Platelet Estimate MOD INC Sodium Potassium Chloride Carbon Dioxide Anion Gap BUN Creatinine Estim Creat Clear Calc Est GFR (MDRD) Af Amer Est GFR (MDRD) Non-Af BUN/Creatinine Ratio Glucose Calcium 03/22/19 05:55 WBC RBC Hgb Hct MCV MCH MCHC RDW Std Deviation RDW Coeff of Madhu Plt Count MPV Immature Gran % (Auto) Neut % (Auto) Lymph % (Auto) [place] % (Auto) Eos % (Auto) Baso % (Auto) Absolute Neuts (auto) Absolute Lymphs (auto) Nucleated RBC % Differential Comment Diff Path Review Platelet Estimate Sodium 143 Potassium 4.2 Chloride 110 H Carbon Dioxide 27.0 Anion Gap 6 BUN 8 Creatinine 0.57 Estim Creat Clear Calc 103.89 Est GFR (MDRD) Af Amer 142 Est GFR (MDRD) Non-Af 117 BUN/Creatinine Ratio 14.0 Glucose 99 Calcium 8.6 Clinical Impression(s) from Imaging Studies Abdomen/Pelvis CT 03/21/19 00:36 IMPRESSION: 1. Right renal multifocal acute pyelonephritis with right perinephric mild edema. No abscess or hydronephrosis identified. 2. Mild ileus compatible with reactive ileus. 3. Normal appendix. Individualized dose optimization techniques were used for this CT. at 0216 Reported and signed by: Jah De León MD Electronically Signed: Jah De León, at 2:15 EDT Tel , Service support , Medical Necessity - Tobacco Use Smoking Status: Current every day smoker Assessment/Plan All Active Problems Sepsis (Acute) Acute pyelonephritis (Acute) This is a 53 years old female patient admitted because of right-sided abdominal and right flank pain with chills and she was found to have acute right focal pyelonephritis with sepsis. #1 acute right focal pyelonephritis/sepsis: She is on IV Rocephin. She still having bouts of abdominal pain with shivering. She has been afebrile, vital signs are stable. CT scan abdomen and pelvis reviewed. Urine culture revealed gram-negative rods, final is pending. Blood cultures pending. She is on IV Dilaudid and Toradol for pain. Her white cell count is trending down. Plan to continue same treatment, monitor blood and urine cultures. #2 COPD: Clinically stable, pulse ox is maintained on room air. She is on albuterol and DuoNeb as needed. #3 history of hypertension: Patient was on antihypertensive medications 2 years ago but because her blood pressure has been low, she was taken off. On admission, blood pressure was borderline but improved with IV fluids. At this time, blood pressure stable. She is not tachycardic. #4 history of alcohol abuse: She quit drinking, resolved. #5 depression: Stable, she is not on any medication at this time. #6 DVT prophylaxis: Subcu Lovenox. This note was generated with [employer] dictation software. It may contain incorrect words, spelling, and punctuation that were not noted in checking the note before signing. Code Visit Inpatient E&M: 38035 Subs Hosp L2
[2019-03-22] MEDS: 0.9% Normal Saline 1,000 ML 100 ML IV ×2 (09:41→18:44)
--- NOTE | 2019-03-22 11:00 | CASEMGMT ---
SW completed Healthcare POA and Healthcare LW with patient. Copies made and given to patient along with originals. SW also placed copies in chart. Coty LEGGETT MSW
[2019-03-22] MEDS: 0.9% NaCl Peripheral Flush Adult/Peds IV (13:56)
[2019-03-22] MEDS: Mag Hydrox/Al Hydrox/Simeth 30 ML UDC PO ×2 (14:00→21:51)
[2019-03-22 14:53] LABS: Pathologist Review Reviewed
--- NOTE | 2019-03-22 18:45 | NURSING ---
pt reports that one time she had seizures for 2-3 months after sepsis in 2016 and was on multiple meds. Pt states she believes it is the mix of meds. Pt continues refusing seizure pads. States she has not had another one since stopping meds.
[2019-03-22] MEDS: Acetaminophen 325 MG Tablet 650 MG PO (20:08)
[2019-03-23] VITALS (8 sets, daily range): BP systolic 139–147; BP diastolic 81–88; PULSE 74–98; RESP 14–20; TEMP 36.8–36.9; O2SAT 96–98
[2019-03-23] MEDS: Mag Hydrox/Al Hydrox/Simeth 30 ML UDC PO (04:36)
[2019-03-23] MEDS: 0.9% Normal Saline 1,000 ML 100 ML IV (04:37)
[2019-03-23] MEDS: Ketorolac 30 MG/ML Syringe IV (05:44)
[2019-03-23] MEDS: Gabapentin 300 MG Capsule PO (05:44)
[2019-03-23 05:59] LABS: Absolute Lymphocyte Count 2.03 X10^3/uL (0.83-4.51); Absolute Neutrophil Count 8.3 X10^3/uL (2.0-7.7); Basophil# 0.03 X10^3/uL; Basophil% 0.2 % (0-1); Eosinophil# 0.24 X10^3/uL; Hemoglobin 10.2 g/dL (12.0-15.0); Lymphocyte # 2.03 X10^3/ul (4.0); Lymphocyte % 16.9 % (19-41); Mean Corp Hgb Conc 31.9 g/dL (32-36); Mean Corpuscular Volume 90.9 fL (81-99); Mean Platelet Vol. 9.3 fl (6.2-12.0); Monocyte# 1.37 X10^3/uL; Monocyte% 11.4 % (0-10); NRBC Flagged by Analyzer 0 % (0-5); Platelet Count 570 K/mm3 (150-450); RBC Distribution Width CV 13.9 % (11.6-14.6); RBC Distribution Width SD 46.1 fl (35.1-43.9); Red Blood Count 3.52 M/mm3 (4.2-5.4)
--- NOTE | 2019-03-23 08:25 | DCINST_ITS ---
- Discharge Diagnoses Current Active Problems: Current Active and Chronic Problems Sepsis (Acute) Acute pyelonephritis (Acute) You will use the following diet at home:: Regular Your food should be the consistency of: Regular Discharge Activity: Return to Normal Activity, May not drive while taking narcotic pain medications. Weight Bearing Status: Full weight bearing Call your doctor if you observe: Fever of 101 or Higher, Shortness of breath, Dizziness, Fainting spells, Chest pain, Increased palpitations (irregular heartbeat), Uncontrolled pain Allergies/Adverse Reactions: Allergies peanut Allergy (Verified 03/21/19 00:26) Anaphylaxis tree nut [Tree Nut] Allergy (Verified 03/21/19 00:26) Anaphylaxis Medications to take at Discharge Albuterol Aerosols [Ventolin Aerosols] 2.5 mg INHALATION Q4H PRN #25 vial 10/20/17 Albuterol Sulfate [Ventolin Hfa] 1 - 2 puff INHALATION PRN PRN 05/18/18 Ipratropium/Albuterol Sulfate [Duoneb] 3 ml INHALATION Q6H PRN 05/18/18 Mometasone/Formoterol [Dulera 200 Mcg/5 Mcg Inhaler] 1 - 2 puff INHALATION DAILY 05/18/18 Epi Pen (for allergic rxn) 0.3 mg IM X1 #1 syringe 01/21/19 Gabapentin [Neurontin] 300 mg PO TID 03/21/19 Ciprofloxacin [Cipro] 500 mg PO BID #12 tab 03/23/19 Oxycodone [Oxyir] 5 mg PO Q12H PRN PRN 3 Days #7 tab 03/23/19 The following prescriptions were given: Ciprofloxacin [Cipro] 500 mg PO BID #12 tab Prescription Printed Oxycodone [Oxyir] 5 mg PO Q12H PRN PRN 3 Days #7 tab PRN Reason: Severe pain 7-10 in severity Prescription Printed Primary Care Physician: Edvin Oakley III, MD [Primary Care Provider] - Please follow up with your Primary Care Physician in: 1 week. Test Results: Test results from this visit will be discussed in further detail at your follow- up appointment, if applicable.
[2019-03-23] MEDS: Ipratropium/Albuterol Sulfate 3 ML AMPUL.NEB INHALATION (08:32)
[2019-03-23] MEDS: guaiFENesin 1,200 MG Tablet 1200 MG PO (10:06)
--- NOTE | 2019-03-23 10:16 | DS.PCM_ITS ---
Discharge Date and Diagnosis - Problem List Patient Problems: Active and Suspected Problems Sepsis (Acute) Acute pyelonephritis (Acute) Date of Admission: 03/21/19 Date of Discharge: 03/23/19 - Primary Discharge Diagnosis Active and Suspected Problems #1 E. coli right focal pyelonephritis. #2 sepsis. - Secondary Discharge Diagnosis Chronic Problems COPD (chronic obstructive pulmonary disease) (Chronic) History of alcohol use disorder (Chronic) Obesity (BMI 30-39.9) (Chronic) Iron deficiency anemia (Chronic) Depression (Chronic) Marijuana smoker (Chronic) HLD (hyperlipidemia) (Chronic) HTN (hypertension) (Chronic) Nicotine addiction (Chronic) Pulmonary hypertension (Chronic) Thrombocytosis (Chronic) Hospital Course and Treatment Imaging Results: Clinical Impression(s) from Imaging Studies Abdomen/Pelvis CT 03/21/19 00:36 IMPRESSION: 1. Right renal multifocal acute pyelonephritis with right perinephric mild edema. No abscess or hydronephrosis identified. 2. Mild ileus compatible with reactive ileus. 3. Normal appendix. Individualized dose optimization techniques were used for this CT. at 0216 Reported and signed by: Jah De León MD Electronically Signed: Jah De León, at 2:15 EDT Tel , Service support , Operations: None Procedures: None Summary of Care Provided: Patient seen and examined on the day of discharge and appeared to be stable to be discharged home. Right flank pain continued to improve but still there. She is feeling better. She has been afebrile. Denied urinary symptoms. Her vital signs are stable. The patient is a 53 year old F admitted because of right-sided abdominal pain and right flank pain with chills and she was found to have acute right focal pyelonephritis complicated with sepsis. CT scan abdomen and pelvis with IV contrast revealed right renal multifocal acute pyelonephritis with right perinephric mild edema without evidence of abscess or hydronephrosis. Patient did have sepsis on admission because she was tachycardic, febrile and she has significant leukocytosis. On admission, her white blood cell count was 25,000. Patient was treated with IV Rocephin, IV fluids, IV morphine and IV Toradol. With above-mentioned treatment, patient symptoms improved and her white blood cell count trended down. Upon discharge, her white blood cell count was 12,000. Patient remained afebrile for more than 24 hours. Urine culture revealed E. coli which was sensitive to cephalosporin. Blood cultures show no growth in 48 hours. Patient discharged home in a stable medical condition, discharged on ciprofloxacin 500 mg p.o. daily for 6 days to complete total of 10 days of treatment, discharged on OxyIR PRN for pain, continued on her previous home medications without any changes, recommended follow-up with PCP in 1 week. Patient Problems: Active and Suspected Problems Sepsis (Acute) Acute pyelonephritis (Acute) - Physical Exam General: Alert, Oriented x3, Cooperative, No apparent distress HEENT: Atraumatic, PERRLA, EOMI, Normocephalic Oral: Moist Mucosa, No Gingival or Mucosal Lesions/ Ulcerations Neck: Supple, No JVD, Negative Carotid Bruits, Trachea Midline, Thyroid Normal Size and Texture Lungs: Clear to auscultation, Normal air movement, No rhonchi, No wheeze, No rales, Diminished Cardiovascular: Regular rate, Regular Rhythm, Normal S1, Normal S2, PMI Normal Abdomen: Bowel Sounds Present, Soft, Non-Distended, No Hepato-splenomegaly, Obese, Tender - Minimal right flank tenderness. Extremities: No clubbing, No cyanosis, No edema Skin: No rashes, No breakdown Neurological: Cranial nerves II-XII grossly intact, Motor Exam 5/5 strength throughout Psych/Mental Status: Normal Affect, Appropriate Vital Signs Temp Pulse Resp BP Pulse Ox 98.3 F 82 20 H 144/82 H 98 03/23/19 06:01 03/23/19 08:30 03/23/19 08:30 03/23/19 06:01 03/23/19 08:30 Oxygen Flow Rate (L/min) 2 Oxygen Delivery Method Room Air Weight: 172 lb 13.478 oz Body Mass Index (BMI) 28.8 Intake and Output for Last 24 Hours 03/21/19 03/22/19 03/23/19 23:59 23:59 23:59 Intake Total 6328.33 / 6328.33 3678.34 / 3678.34 1226.67 / 1226.67 Output Total 2075 / 2075 1100 / 1100 900 / 900 Balance 4253.33 / 4253.33 2578.34 / 2578.34 326.67 / 326.67 Microbiology Past 72 Hours 03/21/19 00:50 Urine Culture - Final Urine, Clean Catch Escherichia coli 03/21/19 01:55 Blood Culture - Preliminary Blood Culture (Wb) - Left Hand No growth in 48 hours. 03/21/19 02:00 Blood Culture - Preliminary Blood Culture (Wb) - Anticubital Left No growth in 48 hours. Laboratory Tests Past 24 Hrs 03/22/19 03/23/19 05:55 05:40 WBC 12.0 H RBC 3.52 L Hgb 10.2 L Hct 32.0 L MCV 90.9 MCH 29.0 MCHC 31.9 L RDW Std Deviation 46.1 H RDW Coeff of Madhu 13.9 Plt Count 570 H MPV 9.3 Immature Gran % (Auto) 0.500 Neut % (Auto) 69.0 Lymph % (Auto) 16.9 L [place] % (Auto) 11.4 H Eos % (Auto) 2.0 Baso % (Auto) 0.2 Absolute Neuts (auto) 8.3 H Absolute Lymphs (auto) 2.03 Nucleated RBC % 0 Diff Path Review Reviewed Discharge Activity: Return to Normal Activity, May not drive while taking narcotic pain medications. Weight Bearing Status: Full weight bearing Call your doctor if you observe: Fever of 101 or Higher, Shortness of breath, Dizziness, Fainting spells, Chest pain, Increased palpitations (irregular heartbeat), Uncontrolled pain Home Medications: Medications to take at Discharge Albuterol Aerosols [Ventolin Aerosols] 2.5 mg INHALATION Q4H PRN #25 vial 10/20/17 Albuterol Sulfate [Ventolin Hfa] 1 - 2 puff INHALATION PRN PRN 05/18/18 Ipratropium/Albuterol Sulfate [Duoneb] 3 ml INHALATION Q6H PRN 05/18/18 Mometasone/Formoterol [Dulera 200 Mcg/5 Mcg Inhaler] 1 - 2 puff INHALATION DAILY 05/18/18 Epi Pen (for allergic rxn) 0.3 mg IM X1 #1 syringe 01/21/19 Gabapentin [Neurontin] 300 mg PO TID 03/21/19 Ciprofloxacin [Cipro] 500 mg PO BID #12 tab 03/23/19 Oxycodone [Oxyir] 5 mg PO Q12H PRN PRN 3 Days #7 tab 03/23/19 Following Prescrptions Were Given to Patient: Ciprofloxacin [Cipro] 500 mg PO BID #12 tab Prescription Printed Oxycodone [Oxyir] 5 mg PO Q12H PRN PRN 3 Days #7 tab PRN Reason: Severe pain 7-10 in severity Prescription Printed Primary Care Physician: Edvin Oakley III, MD [Primary Care Provider] - Please follow up with your Primary Care Physician in: 1 week. Please Follow Up With: Dr Edvin Oakley III Disposition: Home Minutes spent on discharge:: 28 Patient Condition:: Stable Medical Necessity - Tobacco Use Smoking Status: Current every day smoker Meaningful Use Info Meaningful Use Diagnoses (Choose all that apply): None applicable Code Visit Inpatient E&M: 45212 Disch Hosp
--- NOTE | 2019-03-24 13:06 | CASEMGMT ---
RADHA OGDEN DC PHONE CALL DC DATE: 03/23/19 DC Disposition: DC Home Diagnosis on Discharge: Home LACE/STRATA: 06/21 Intro role of CM to patient via phone. Pt states she is feeling better, has prescriptions and f/u appointment has been made. No questions re: instructions and/or medications. Inquiry re: care improvement suggestion was made. Pt states she has numerous things that she could say. RN ALIN asked if she would like to speak with the patient advocate and number given for her to call hospital. Pt said she will consider. Natanael COBBN RN ACM
== END 2019-03-23 11:31 | disposition home or self-care (01) | DRG 872 ==
LOC: ED 02:29 → PCU 03:16
PROVIDERS: Admitting Provider Family Medicine; Emergency Provider Emergency Medicine; Family Provider Family Medicine; PCP Family Medicine; Visit Provider Hospitalist
DX: A41.9 Sepsis, unspecified organism (principal); N10 Acute pyelonephritis; J44.9 Chronic obstructive pulmonary disease, unspecified; B96.20 Unspecified Escherichia coli [E. coli] as the cause of diseases classified elsewhere; D50.9 Iron deficiency anemia, unspecified; F12.90 Cannabis use, unspecified, uncomplicated; E78.5 Hyperlipidemia, unspecified; F32.9 Major depressive disorder, single episode, unspecified; I27.20 Pulmonary hypertension, unspecified; F17.200 Nicotine dependence, unspecified, uncomplicated
CPT/HCPCS: 36415; 74177; 80048; 80053; 81001; 83605; 83690; 83735; 84703; 85025; 87040; 87077; 87086; 87088; 87186; 94640; 94762; 99285; 99406; J7030; J7040; Q9967; A4216; J0696; J2405

== ENCOUNTER 2019-06-03 19:10 | Emergency (ER) | payer MEDICARE, SELFPAY ==
[2019-03-21 03:17] VITALS: BMI 28.8
[2019-06-03] VITALS (8 sets, daily range): BP systolic 99–129; BP diastolic 71–96; PULSE 85–125; RESP 12–20; TEMP 35.5–37.9; O2SAT 93–98; BMI 37.0
--- NOTE | 2019-06-03 19:27 | RAD_ITS ---
STUDY: X-RAY CHEST REASON FOR EXAM: Female, 53 years old. Right chest pain TECHNIQUE: Frontal view of the chest was performed COMPARISON: To October 2018 FINDINGS: Lungs are clear. Lungs are hyperinflated, likely mild emphysema. There is no pneumothorax, pulmonary edema, pleural effusions or cardiomegaly. Osseous structures are intact. There is no gas under the diaphragms. [ Appearance is similar to prior] RAD/Chest 1 View (Portable) IMPRESSION: 1. No acute cardiorespiratory disease. [ 2. Mild emphysema. ] Electronically Signed: Marcio Cano, at 20:27 EST Tel , Service support ,
--- NOTE | 2019-06-03 19:28 | CT_ITS ---
STUDY: CT ABDOMEN AND PELVIS WITHOUT CONTRAST REASON FOR EXAM: Female, 53 years old. Right-sided abdominal pain, fever chills RADIATION DOSAGE (If Supplied By Facility): CTDIvol = ( 10.18 ) mGy, DLP = ( 587.72 ) mGycm TECHNIQUE: Transaxial images were obtained from the dome of the diaphragm to the symphysis pubis without oral contrast, and without intravenous contrast. Sagittal and coronal images were reconstructed. Individualized dose optimization techniques were used for this CT. COMPARISON: 21 March 2019 FINDINGS: Examination is limited due to lack of IV contrast. The visualized lung bases are unremarkable with lingular atelectasis. The visualized portions of the heart are within normal limits. Normal liver. Gallbladder is resected. Normal spleen. Normal pancreas. Normal bilateral adrenal glands. There are no urinary calculi or hydronephrosis. There is inflammatory change surrounding the proximal ureter and renal pelvis. This finding is nonspecific and can be seen with urinary tract infections such as pyelitis. Bladder is decompressed and not well seen. Normal visualized stomach. Normal small intestine. Normal colon. The appendix is visualized and appears normal. Normal abdominal aorta. Normal inferior vena cava. Normal retroperitoneum. Normal urinary bladder. Normal abdominal wall. Normal osseous structures. CT/Abdomen/Pelvis without Cont IMPRESSION: 1. Possible upper urinary tract infection, pyelitis. Electronically Signed: Marcio Cano, at 20:57 EST Tel , Service support ,
[2019-06-03] MEDS: 0.9% Normal Saline 1,000 ML 250 ML IV (19:45)
[2019-06-03] MEDS: Ketorolac 15 MG/ML Vial IV (19:46)
[2019-06-03] MEDS: Acetaminophen 500 MG Tablet 1000 MG PO (19:48)
[2019-06-03] MEDS: Morphine 4 MG/ML Syringe IV (19:48)
[2019-06-03 20:03] LABS: Absolute Lymphocyte Count 2.65 X10^3/uL (0.83-4.51); Absolute Neutrophil Count 11.6 X10^3/uL (2.0-7.7); Basophil# 0.07 X10^3/uL; Basophil% 0.4 % (0-1); Eosinophil# 0.04 X10^3/uL; Eosinophils% 0.2 % (0-5); Hematocrit 42.1 % (37-47); Hemoglobin 13.3 g/dL (12.0-15.0); Lymphocyte # 2.65 X10^3/ul (4.0); Lymphocyte % 16.4 % (19-41); Mean Corp Hgb Conc 31.6 g/dL (32-36); Mean Corpuscular Hgb 27.7 pg (27.0-32.0); Mean Corpuscular Volume 87.5 fL (81-99); Mean Platelet Vol. 9.4 fl (6.2-12.0); Monocyte# 1.71 X10^3/uL; Monocyte% 10.6 % (0-10); NRBC Flagged by Analyzer 0 % (0-5); Neutrophil # 11.63 X10^3/uL (2.7-7.7); Neutrophil % 71.9 % (47-70); POSITIVE DIFFERENTIAL YES; Platelet Count 482 K/mm3 (150-450); RBC Distribution Width CV 13.8 % (11.6-14.6); RBC Distribution Width SD 44.3 fl (35.1-43.9); Red Blood Count 4.81 M/mm3 (4.2-5.4); White Blood Count 16.2 K/mm3 (4.4-11.0)
[2019-06-03 20:14] LABS: Prothrombin Time (Protime)PT. 13.2 SECONDS (11.7-14.9)
[2019-06-03 20:15] LABS: Partial Thromboplast Time 33.3 Seconds (24.1-36.2)
[2019-06-03 20:18] LABS: Differential Indicated SCAN CRITERIA MET
[2019-06-03 20:20] LABS: ALB/GLOB Ratio 0.6 RATIO (0.9-2.4); AST(SGOT) 33 U/L (15-37); Alanine Aminotransfer ALT/SGPT 25 U/L (13-56); Albumin, Serum 3.2 g/dL (3.2-5.0); Alkaline Phosphatase 173 U/L (45-117); Anion Gap 9 (5-15); BUN 9 mg/dL (7-18); BUN/Creat Ratio 11.2 RATIO (10-20); Calcium,Total 8.8 mg/dL (8.5-10.1); Chloride 101 mmol/L (98-107); Creatinine, Serum 0.81 mg/dL (0.55-1.02); EST Glomerular Filtration Rate 79 mL/min (>60); Est Glom Filt Rate - Afr Amer 96 mL/min (>60); Estimated Creatinine Clearance 70.16 ml/min; Globulin 5.1 g/dL (2.2-4.2); Glucose 103 mg/dL (74-106); Potassium 3.6 mmol/L (3.5-5.1); Protein, Total 8.3 g/dL (6.4-8.2); Sodium Level 134 mmol/L (136-145)
[2019-06-03 20:21] LABS: Mucous, Urine 0 SEEN /hpf (<or=2+); Squamous Epithelial Cells - UA 0 SEEN /hpf (5-10)
[2019-06-03 20:32] LABS: Lactic Acid 1.1 mmol/L (0.4-2.0)
[2019-06-03 20:35] LABS: Color, Urine Yellow (Yellow); Glucose, Dipstick Normal (Normal); Ketone-Dipstick Negative (Negative); Leukocyte Esterase-Dipstick 500 /ul (Negative); Nitrite-Dipstick Negative (Negative); Occult Blood-Urine 150 /ul (Negative); Protein-Dipstick 30 mg/dl (Negative); Specific Gravity, Urine 1.005 (1.002-1.030); Urine Bilirubin Dipstick Negative (Negative); Urine Clarity Sl. Cloudy (Clear); Urine Urobilinogen Normal (Normal)
[2019-06-03 20:36] LABS: Transitional Epithelial - Ur 0-5 SEEN /hpf (0-5)
[2019-06-03 20:37] LABS: Anisocytosis RARE; Platelet Estimate SLT INC (ADEQ); Red Cell Morphology N CHROM NORMAL (NORM C&C)
[2019-06-03 20:37] LABS: Bacteria 2+ /hpf (None Seen)
[2019-06-03 20:38] LABS: Red Blood Cells-Urine 0-5 SEEN /hpf (0-5); White Blood Cells >100 SEEN /hpf (0-5)
--- NOTE | 2019-06-03 21:29 | ED.VIS.GEN ---
History of Present Illness Chief Complaint: General Illness Informant: Patient Onset: Yesterday Context: Sudden Onset - pain Timing: Continuous Quality: ache Location: right side/flank Current Severity: Severe Maximum Severity: Severe Worsened by: urinating Relieved by: nothing Associated Symptoms: fever/chills/rigors, cough Narrative: Patient states the pain was sudden and severe in onset on her right side. She has been having urinary symptoms such as urinary frequency and urgency, no hematuria or benito dysuria. No known history of stones. Prior similar symptoms: Yes - kidney infection - Past Medical History (1) COPD (chronic obstructive pulmonary disease) Status: Chronic (2) Depression Status: Chronic (3) HLD (hyperlipidemia) Status: Chronic (4) HTN (hypertension) Status: Chronic (5) Iron deficiency anemia Status: Chronic (6) Pulmonary hypertension Status: Chronic (7) Thrombocytosis Status: Chronic (8) Seizure Status: Suspected Past Medical History - Allergies and Home Meds Allergies/Adverse Reactions: Allergies peanut Allergy (Verified 03/21/19 00:26) Anaphylaxis tree nut [Tree Nut] Allergy (Verified 03/21/19 00:26) Anaphylaxis Primary Care Physician: Benito Oakley III, MD [Primary Care Provider] - Surgical History: cholecystectomy, - - Cholecystectomy, tubal ligation. Lives: With Family Smoking Status: Current every day smoker - Family History Paternal Family History: Reports: Seizures - Epilepsy Maternal Family History: Reports: Asthma, COPD, Hypertension Sibling Family History: Reports: Cancer - Lung, Hypertension Review of Systems General: Reports: Chills, Fever, Malaise, Sweats Eyes: Denies: Visual changes - bilaterally, Diplopia ENT: Denies: Rhinorrhea, Sore throat Cardiovascular: Denies: Chest pain, Palpitations Respiratory: Reports: Cough. Denies: Dyspnea, Dyspnea on exertion Gastrointestinal: Reports: Abdominal pain, Nausea. Denies: Vomiting, Diarrhea, Melena, Hematochezia Genitourinary: Reports: Frequency, - - urgency. Denies: Dysuria, Hematuria Musculoskeletal: Reports: Back pain - right low. Denies: Neck pain, Swelling, Extremity Pain Skin: Denies: Rash, Wounds Neurological: Denies: Headache, Weakness, Numbness Physical Exam Vital Signs/Narrative: Vital Signs Temp Pulse Resp BP Pulse Ox 06/03/19 21:16 98.9 F 97 16 111/83 H 96 06/03/19 21:00 98.9 F 98 19 H 111/83 H 96 06/03/19 20:51 92 17 110/71 94 06/03/19 20:22 99.0 F 100 12 113/83 H 93 06/03/19 20:13 99.0 F 97 16 113/83 H 93 06/03/19 19:27 99.0 F 06/03/19 19:11 100.3 F H 125 H 20 H 129/96 H 98 Inital Vital Signs reviewed: Yes General: Well nourished, Well developed, Acute Distress - ill-appearing, rigors Head: Normocephalic, Atraumatic Eyes: Perrl, EOMI ENT: Moist mucous membranes, No rhinorrhea Neck: Supple, Nontender Cardiovascular: Regular rate, Regular rhythm, No murmurs, Tachycardia Respiratory: No distress, CTA bilaterally, Chest nontender Abdomen: Soft, Nondistended, Normal bowel sounds, Tender - RLQ only. Negative for: Guarding, Rebound tenderness, Pulsatile mass Back: Normal Inspection, CVA tenderness - right mild Extremities: Nontender, No edema. Negative for: Calf Tenderness Skin: Normal color, No rash, No Trauma Neurological: Alert, Oriented x3, Cranial nerves II-XII grossly intact, Normal Strength, Normal Sensation Psychological: Normal affect, Normal Mood Diagnostic/Tx/Re-eval Impressions Chest X-Ray 06/03/19 19:27 IMPRESSION: 1. No acute cardiorespiratory disease. [ 2. Mild emphysema. ] Electronically Signed: Marcio Cano, at 20:27 EST Tel , Service support , Abdomen/Pelvis CT 06/03/19 19:28 IMPRESSION: 1. Possible upper urinary tract infection, pyelitis. Electronically Signed: Marcio Cano, at 20:57 EST Tel , Service support , 06/03/19 19:27 Chest 1 View (Portable) [RAD] Stat 06/03/19 19:28 CT Abd [Abdomen/Pelvis without Cont] [CT] Stat 06/03/19 19:35 Mucosa - Nasopharyngeal Influenza Types A,B Direct [facility] - Final Laboratory Results 06/03/19 06/03/19 06/03/19 19:35 19:35 19:35 WBC 16.2 H RBC 4.81 Hgb 13.3 Hct 42.1 MCV 87.5 MCH 27.7 MCHC 31.6 L RDW Std Deviation 44.3 H RDW Coeff of Madhu 13.8 Plt Count 482 H MPV 9.4 Immature Gran % (Auto) 0.500 Neut % (Auto) 71.9 H Lymph % (Auto) 16.4 L [place] % (Auto) 10.6 H Eos % (Auto) 0.2 Baso % (Auto) 0.4 Absolute Neuts (auto) 11.6 H Absolute Lymphs (auto) 2.65 Nucleated RBC % 0 Differential Comment SEE COMMENT Diff Path Review May foll Platelet Estimate SLT INC RBC Morphology N CHROM Anisocytosis RARE PT 13.2 INR 1.0 APTT 33.3 Sodium 134 L Potassium 3.6 Chloride 101 Carbon Dioxide 24.0 Anion Gap 9 BUN 9 Creatinine 0.81 Estim Creat Clear Calc 70.16 Est GFR (MDRD) Af Amer 96 Est GFR (MDRD) Non-Af 79 BUN/Creatinine Ratio 11.2 Glucose 103 Lactic Acid Calcium 8.8 Total Bilirubin 0.70 AST 33 ALT 25 Alkaline Phosphatase 173 H Total Protein 8.3 H Albumin 3.2 Globulin 5.1 H Albumin/Globulin Ratio 0.6 L Urine Color Urine Clarity Urine pH Ur Specific [place] Urine Protein Urine Glucose (UA) Urine Ketones Urine Occult Blood Urine Nitrite Urine Bilirubin Urine Urobilinogen Ur Leukocyte Esterase Urine RBC Urine WBC Ur Squamous Epith Cells Ur Transition Epith Cell Urine Bacteria Urine Mucus 06/03/19 06/03/19 19:35 20:05 WBC RBC Hgb Hct MCV MCH MCHC RDW Std Deviation RDW Coeff of Madhu Plt Count MPV Immature Gran % (Auto) Neut % (Auto) Lymph % (Auto) [place] % (Auto) Eos % (Auto) Baso % (Auto) Absolute Neuts (auto) Absolute Lymphs (auto) Nucleated RBC % Differential Comment Diff Path Review Platelet Estimate RBC Morphology Anisocytosis PT INR APTT Sodium Potassium Chloride Carbon Dioxide Anion Gap BUN Creatinine Estim Creat Clear Calc Est GFR (MDRD) Af Amer Est GFR (MDRD) Non-Af BUN/Creatinine Ratio Glucose Lactic Acid 1.1 Calcium Total Bilirubin AST ALT Alkaline Phosphatase Total Protein Albumin Globulin Albumin/Globulin Ratio Urine Color Yellow Urine Clarity Sl. Cloudy Urine pH 7.0 Ur Specific [place] 1.005 Urine Protein 30 H Urine Glucose (UA) Normal Urine Ketones Negative Urine Occult Blood 150 H Urine Nitrite Negative Urine Bilirubin Negative Urine Urobilinogen Normal Ur Leukocyte Esterase 500 H Urine RBC 0-5 SEEN Urine WBC >100 SEEN Ur Squamous Epith Cells 0 SEEN Ur Transition Epith Cell 0-5 SEEN Urine Bacteria 2+ Urine Mucus 0 SEEN - Medical Decision Making Work-up consistent with pyelonephritis, there is no stone seen on imaging. She is septic, but her lactate is well within normal limits, she does not qualify for severe sepsis. Her blood pressure remained stable. Her pain, nausea, fever were all treated. She was treated with IV fluids and antibiotics. Blood and urine cultures were sent. On reevaluation, patient is much improved. She is tolerating oral fluids. I offered admission, however she declines and prefers to go home. As long as she is clinically well, which she is now, tolerating fluids, and with normal vital signs which she is, I am okay with that. We discussed reasons to return. Given prescriptions for nausea and antibiotics. She is comfortable with this plan. ED Disposition - Plan for ED Patient: Disposition: Home or Assisted Living Diagnosis: Pyelonephritis, Sepsis due to urinary tract infection Instructions: Pyelonephritis Prescriptions: Ciprofloxacin [Cipro] 500 mg PO BID #14 tab [facility]: [facility] [facility] proMETHazine tablet [Phenergan] 25 mg PO Q6H PRN PRN #10 tab PRN Reason: Nausea Transmission Status: Pending to [facility] [facility] [address] Referrals: Benito Oakley III, MD [Primary Care Provider] - 3-5 Days
[2019-06-03] MEDS: Ceftriaxone 1 GM/50 ML BAG IV (21:57)
[2019-06-05 11:04] LABS: Pathologist Review Reviewed
== END 2019-06-03 22:46 | disposition home or self-care (01) ==
PROVIDERS: Emergency Provider Emergency Medicine; Family Provider Family Medicine; PCP Family Medicine
DX: A41.9 Sepsis, unspecified organism (principal); N12 Tubulo-interstitial nephritis, not specified as acute or chronic; I10 Essential (primary) hypertension; I27.20 Pulmonary hypertension, unspecified; J44.9 Chronic obstructive pulmonary disease, unspecified; F17.200 Nicotine dependence, unspecified, uncomplicated; Z79.899 Other long term (current) drug therapy
CPT/HCPCS: 71045; 74176; 80053; 81001; 83605; 85025; 85610; 85730; 87040; 87077; 87086; 87088; 87186; 87804; 96365; 96375; 99285; J7030; P9612

== ENCOUNTER 2019-09-17 01:57 | Emergency (ER) | payer MEDICARE, SELFPAY ==
[2019-06-03 19:11] VITALS: BMI 37.0
[2019-09-17 01:57] VITALS: PULSE 116; RESP 36; TEMP 36.8; O2SAT 99; BMI 31.8
--- NOTE | 2019-09-17 02:05 | ED.DCSUM_ITS ---
History of Present Illness Chief Complaint: Allergic Reaction Informant: Patient Onset: Today Context: Sudden Onset Timing: Continuous Narrative: Patient is a 54-year-old female presenting with concern for allergic reaction. About 20 minutes prior to arrival patient was eating leftover Pashto food that was her children's. She does have an allergy to peanuts and tree nuts. She then started to feel like her throat was closing up and itching. Patient had an EpiPen at home but did not know how to use it. She states it was a new type of EpiPen. She does have a history of COPD. She denies any other complaints at this time. Past Medical History - Allergies and Home Meds Allergies/Adverse Reactions: Allergies peanut Allergy (Verified 09/17/19 01:57) Anaphylaxis tree nut [Tree Nut] Allergy (Verified 09/17/19 01:57) Anaphylaxis Primary Care Physician: Edvin Oakley III, MD [Primary Care Provider] - Past Medical History: - - COPD, hypertension, hyperlipidemia, depression Surgical History: cholecystectomy, - - Cholecystectomy, tubal ligation. Lives: With Family Smoking Status: Current every day smoker - Family History Paternal Family History: Reports: Seizures - Epilepsy Maternal Family History: Reports: Asthma, COPD, Hypertension Sibling Family History: Reports: Cancer - Lung, Hypertension Review of Systems General: Denies: Chills, Fever, Sweats Eyes: Denies: Visual changes - bilaterally, Diplopia ENT: Reports: - - Sensation of throat swelling. Denies: Rhinorrhea, Sore throat Cardiovascular: Denies: Chest pain, Palpitations Respiratory: Reports: Dyspnea. Denies: Cough, Dyspnea on exertion Gastrointestinal: Denies: Abdominal pain, Nausea, Vomiting, Diarrhea, Melena, Hematochezia Genitourinary: Denies: Dysuria, Hematuria, Frequency Musculoskeletal: Denies: Back pain, Extremity Pain Skin: Reports: - - Itching. Denies: Rash, Wounds Neurological: Denies: Headache, Weakness, Numbness Psych: Reports: Anxiety Physical Exam Vital Signs/Narrative: Vital Signs Temp Pulse Resp Pulse Ox 09/17/19 01:57 98.2 F 116 H 36 H 99 Inital Vital Signs reviewed: Yes General: Well nourished, Well developed, No Acute Distress, - - Very anxious Head: Normocephalic, Atraumatic Eyes: Perrl, EOMI ENT: Moist mucous membranes, No rhinorrhea, TM's clear, - - No oral pharyngeal edema appreciated no tongue swelling Neck: Supple, Nontender, No JVD, - - No stridor Cardiovascular: Regular rhythm, No murmurs, Tachycardia Respiratory: No distress, Chest nontender, Wheezing - Mild end expiratory Abdomen: Soft, Nontender, Nondistended, Normal bowel sounds Back: Nontender, Normal Inspection Extremities: Nontender, No edema Skin: Normal color, No rash Neurological: Alert, Oriented x3, Cranial nerves II-XII grossly intact, Normal Strength, Normal Sensation Psychological: Normal affect, Normal Mood, Agitated Diagnostic/Tx/Re-eval - Medical Decision Making Patient is evaluated for concern for allergic reaction. She appears nontoxic but very anxious on my evaluation. She is not have any obvious signs of stridor, edema of the mucosal surfaces or anaphylaxis. She does have some mild wheezing but this could also be from her baseline COPD. I do not appreciate any hives and does not have any GI symptoms. Patient is given IV Benadryl, Pepcid and Solu-Medrol. She is monitored for over 2 hours and not have any recurrent symptoms. She is resting comfortably. She is hemodynamically stable. Her tachycardia improves. I do question of there is a component of anxiety with her presentation tonight. However she will be discharged home with a short burst of prednisone for any lingering symptoms. Patient is counseled on signs and symptoms requiring return to the emergency room. Patient verbalizes agreement and understand this plan. Patient discharged home in stable and improved condition. ED Disposition - Plan for ED Patient: Disposition: Home or Assisted Living Diagnosis: Allergic reaction Instructions: ALLERGIC REACTION, Other (General) Prescriptions: Prednisone [Deltasone] 40 mg PO DAILY #10 tab [facility] Referrals: Edvin Oakley III, MD [Primary Care Provider] -
[2019-09-17 02:10] VITALS: BP 157/110; PULSE 110; RESP 26; O2SAT 99
[2019-09-17] MEDS: DiphenhydrAMINE 50 MG/ML Syringe IV (02:12)
[2019-09-17] MEDS: MethylPREDNISolone 125 MG/2 ML Vial IV (02:12)
[2019-09-17] MEDS: Famotidine 200 MG/20 ML MDV 20 MG in 0.9% Normal Saline (Pres. free 8 ML 300 MG IV (02:22)
[2019-09-17] MEDS: 0.9% Normal Saline 1,000 ML 999 ML IV (02:22)
[2019-09-17 03:00] VITALS: BP 160/99; PULSE 112; RESP 18; O2SAT 95
[2019-09-17 03:51] VITALS: BP 139/85; PULSE 99; RESP 20; O2SAT 94
[2019-09-17 04:40] VITALS: BP 137/80; PULSE 96; RESP 19; O2SAT 95
== END 2019-09-17 04:50 | disposition home or self-care (01) ==
PROVIDERS: Emergency Provider Emergency Medicine; PCP Family Medicine
DX: T78.40XA Allergy, unspecified, initial encounter (principal); X58.XXXA Exposure to other specified factors, initial encounter; I10 Essential (primary) hypertension; J44.9 Chronic obstructive pulmonary disease, unspecified; F17.200 Nicotine dependence, unspecified, uncomplicated; Z91.010 Allergy to peanuts
CPT/HCPCS: 96361; 96374; 96375; 99283; J7030; A4216; J3490

== ENCOUNTER 2019-12-03 15:41 | Inpatient (IN) | payer MEDICARE, MEDICAID, SELFPAY ==
[2019-12-03] VITALS (7 sets, daily range): BP systolic 121–159; BP diastolic 70–93; PULSE 98–122; RESP 18–28; TEMP 37.7–38.3; O2SAT 92–98; BMI 31.8; BMI 31.6
[2019-12-03 16:46] LABS: Internal QC Validated? YES +Cl - CLEAR BKGD; Mucous, Urine 0 SEEN /hpf (<or=2+)
[2019-12-03 16:48] LABS: Color, Urine Yellow (Yellow); Glucose, Dipstick Normal (Normal); Ketone-Dipstick 5 mg/dl (Negative); Leukocyte Esterase-Dipstick 500 /ul (Negative); Nitrite-Dipstick Positive (Negative); Occult Blood-Urine 150 /ul (Negative); Protein-Dipstick 100 mg/dl (Negative); Urine Bilirubin Dipstick Negative (Negative); Urine Clarity Cloudy (Clear); Urine Urobilinogen 4 mg/dl (Normal)
[2019-12-03 16:49] LABS: Pregnancy, Urine Negative Negative
--- NOTE | 2019-12-03 16:55 | CT_ITS ---
STUDY: CT ABDOMEN AND PELVIS WITHOUT CONTRAST REASON FOR EXAM: Female, 54 years old. RT FLANK PAIN, FOUL SMELLING URINE, FEVER,CHILLS, HEADACHE RADIATION DOSAGE (If Supplied By Facility): CTDIvol = ( 14.31 ) mGy, DLP = ( 661.32 ) mGycm TECHNIQUE: Transaxial images were obtained from the dome of the diaphragm to the symphysis pubis without oral contrast, and without intravenous contrast. Sagittal and coronal images were reconstructed. Individualized dose optimization techniques were used for this CT. COMPARISON: 06/03/2019 FINDINGS: The visualized lung bases are unremarkable. The visualized portions of the heart are within normal limits. Small hiatal hernia. Normal liver. There are surgical clips in the gallbladder fossa consistent with a prior cholecystectomy. Normal spleen. Normal pancreas. Normal bilateral adrenal glands. Right renal swelling and perinephric stranding without visible obstructing ureter stone. Findings are likely related to pyelonephritis. 1 mm nonobstructing left renal stone. Normal visualized stomach. Normal small intestine. There are multiple colonic diverticula consistent with diverticulosis. The appendix is visualized and appears normal. Normal abdominal aorta. Normal inferior vena cava. Normal retroperitoneum. Normal urinary bladder. Normal abdominal wall. Normal osseous structures. CT/Abdomen/Pelvis without Cont IMPRESSION: Right renal swelling and perinephric stranding without visible obstructing ureter stone. Findings are likely related to pyelonephritis. Electronically Signed: Renard Strange MD at 18:20 EDT Tel , Service support ,
[2019-12-03 16:57] LABS: Bacteria 4+ /hpf (None Seen); Red Blood Cells-Urine 0-5 SEEN /hpf (0-5); Squamous Epithelial Cells - UA 0-5 SEEN /hpf (5-10); White Blood Cells 50-100 SEEN /hpf (0-5)
[2019-12-03 17:45] LABS: Absolute Lymphocyte Count 2.14 X10^3/uL (0.83-4.51); Absolute Neutrophil Count 14.9 X10^3/uL (2.0-7.7); Basophil# 0.07 X10^3/uL; Basophil% 0.4 % (0-1); Differential Indicated SCAN CRITERIA MET; Eosinophil# 0.02 X10^3/uL; Eosinophils% 0.1 % (0-5); Hematocrit 40.5 % (37-47); Hemoglobin 13.2 g/dL (12.0-15.0); Lymphocyte # 2.14 X10^3/ul (4.0); Lymphocyte % 11.3 % (19-41); Mean Corp Hgb Conc 32.6 g/dL (32-36); Mean Corpuscular Hgb 28.2 pg (27.0-32.0); Mean Corpuscular Volume 86.5 fL (81-99); Mean Platelet Vol. 9.4 fl (6.2-12.0); Monocyte# 1.69 X10^3/uL; NRBC Flagged by Analyzer 0 % (0-5); Neutrophil # 14.86 X10^3/uL (2.7-7.7); Neutrophil % 78.7 % (47-70); POSITIVE DIFFERENTIAL YES; Platelet Count 488 K/mm3 (150-450); RBC Distribution Width CV 14.4 % (11.6-14.6); RBC Distribution Width SD 45.4 fl (35.1-43.9); Red Blood Count 4.68 M/mm3 (4.2-5.4); White Blood Count 18.9 K/mm3 (4.4-11.0)
[2019-12-03] MEDS: Ondansetron 4 MG/2 ML Vial IV (17:45)
[2019-12-03] MEDS: Morphine 4 MG/ML Syringe IV (17:45)
[2019-12-03] MEDS: Phenazopyridine 95 MG Tablet 190 MG PO (17:46)
[2019-12-03] MEDS: 0.9% Normal Saline 1,000 ML 150 ML IV ×2 (17:46→19:30)
[2019-12-03 17:52] LABS: ALB/GLOB Ratio 0.6 RATIO (0.9-2.4); AST(SGOT) 40 U/L (15-37); Alanine Aminotransfer ALT/SGPT 34 U/L (13-56); Alkaline Phosphatase 233 U/L (45-117); Anion Gap 8 (5-15); BUN 10 mg/dL (7-18); BUN/Creat Ratio 13.6 RATIO (10-20); Calcium,Total 9.2 mg/dL (8.5-10.1); Chloride 99 mmol/L (98-107); Creatinine, Serum 0.74 mg/dL (0.55-1.02); EST Glomerular Filtration Rate 87 mL/min (>60); Est Glom Filt Rate - Afr Amer 106 mL/min (>60); Estimated Creatinine Clearance 75.92 ml/min; Globulin 5.1 g/dL (2.2-4.2); Glucose 113 mg/dL (74-106); Lipase 59 U/L (73-393); Potassium 3.4 mmol/L (3.5-5.1); Protein, Total 8.1 g/dL (6.4-8.2); Sodium Level 134 mmol/L (136-145)
[2019-12-03] MEDS: Ceftriaxone 1 GM/50 ML BAG IV ×2 (18:00→18:55)
--- NOTE | 2019-12-03 18:12 | ED.DCSUM_ITS ---
- ER Visit Summary Date of Service: 12/03/19 Chief Complaint: [Concern for urinary tract infection] History of Present Illness: The patient is a 54 F [does the emergency department today with complaint of foul-smelling urine for about a month. Patient states that she developed back pain since yesterday. Patient had subjective fever and chills yesterday. Patient states she had dry heaves last night. Patient does complain of frequency and urgency. Patient has had urinary tract infections in the past. Patient states her gallbladder is been removed. Patient has history of hypertension, pyelonephritis, sepsis, COPD, and seizure.] Physical Examination: [HEENT-PERRLA, EOMI. Cranial nerves II through XII grossly intact. TMs clear. Mucous membranes moist. No adenopathy. Cardiovascular-regular rate and rhythm without murmur or ectopy Lungs-clear to auscultation, chest wall stable without crepitus or subcu emphysema Abdomen-normoactive bowel sounds, soft. Patient has tenderness to palpation diffusely over the right lower quadrant as well as right upper quadrant with some guarding. Patient has CVA tenderness on the right. There is no rebound, rigidity, peritoneal signs. Extremities-intact ?4, normal range of motion, normal pulses, atraumatic] Test Results: [CBC with differential obtained showed a white count of 18.9, hemoglobin 13, hematocrit 40, placed for 88. Chemistries unremarkable. Alk phos was 233. ALT was 34 and AST was 40. Urinalysis was positive for 500 leukocyte esterase as well as positive for nitrites. Patient had 50-100 WBCs and +4 bacteria. Lactate was 1.0. CT flank obtained on my interpretation looks like she may have some perinephric stranding on the right and a thickened bladder wall which would be consistent with pyelonephritis. I do not appreciate any evidence of kidney stones or any other acute disease process however official report from radiology pending.] Emergency Department Course and Treatment: [Received Rocephin 2 g IV. Patient received normal saline. Patient was given Azo and given morphine and Zofran.] Treatment Plan: [Admit] Disposition: [Admit] Impression: [Pyelonephritis Sepsis] This note was generated with [employer] dictation software. It may contain incorrect words, spelling, and punctuation that were not noted in review of the chart prior to signing ED Disposition - Plan for ED Patient: Referrals: Edvin Oakley III, MD [Primary Care Provider] -
[2019-12-03 18:16] LABS: Differential Comment SCANNED
--- NOTE | 2019-12-03 18:27 | HP.PCM_ITS ---
Problem List (1) Sepsis Status: Acute (2) Acute pyelonephritis Status: Acute (3) COPD (chronic obstructive pulmonary disease) Status: Chronic Qualifiers: (4) History of alcohol use disorder Status: Chronic (5) Depression Status: Chronic Qualifiers: (6) Pulmonary hypertension Status: Chronic (7) Thrombocytosis Status: Chronic History of Present Illness Date of Admission: 12/03/19 Chief Complaint: Right flank pain, chills, frequency, foul-smelling urine. The patient is a 54 year old F with past medical history as mentioned above presented to the emergency room because of right flank pain, chills and not feeling well for the last couple of days. According to the patient, she did not feel well yesterday, felt sick, having chills and shivering. Today, she started having left flank pain, sharp pain, intermittent, 8 out of 10 in severity, extends around her abdomen to the front on the right upper quadrant region, associated with nausea and without aggravating or relieving factors. She reported foul-smelling urine and frequency over the last several weeks. She did have a history of acute pyonephritis back on May,. In the emergency department, she had spikes of low-grade fever of 100.3 Fahrenheit, was tachycardic, blood pressure slightly abated, pulse ox was 97% on room air. Routine blood work was remarkable for leukocytosis, potassium of 3.4, otherwise normal. LFT revealed chronically elevated the current phosphatase, otherwise normal. Lipase was normal. Lactic acid was normal. Urinalysis revealed cloudy urine, positive for nitrite and leukocyte esterase, there was 50-100 WBCs, 4+ bacteria. CT scan abdomen and pelvis without contrast revealed right renal swelling and perinephric stranding without visible obstructing stone consistent with acute pyelonephritis. She is being admitted for acute right pyelonephritis with sepsis. Past Medical History Past Medical History (Chronic Problems): Chronic Problems COPD (chronic obstructive pulmonary disease) (Chronic) History of alcohol use disorder (Chronic) Obesity (BMI 30-39.9) (Chronic) Iron deficiency anemia (Chronic) Depression (Chronic) Marijuana smoker (Chronic) HLD (hyperlipidemia) (Chronic) HTN (hypertension) (Chronic) Nicotine addiction (Chronic) Pulmonary hypertension (Chronic) Thrombocytosis (Chronic) Allergies peanut Allergy (Verified 12/03/19 15:43) Anaphylaxis tree nut [Tree Nut] Allergy (Verified 12/03/19 15:43) Anaphylaxis Home Medications: Ambulatory Orders Medication Instructions Recorded Albuterol Aerosols [Ventolin 2.5 mg INHALATION Q4H PRN #25 vial 10/20/17 Aerosols] Albuterol Sulfate [Ventolin Hfa] 1 - 2 puff INHALATION PRN PRN 05/18/18 Ipratropium/Albuterol Sulfate 3 ml INHALATION Q6H PRN 05/18/18 [Duoneb] Mometasone/Formoterol [Dulera 200 1 - 2 puff INHALATION DAILY 05/18/18 Mcg/5 Mcg Inhaler] Epi Pen (for allergic rxn) 0.3 mg IM X1 #1 syringe 01/21/19 Gabapentin [Neurontin] 300 mg PO TID 03/21/19 Surgical History: cholecystectomy, - - Cholecystectomy, tubal ligation. 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, Post traumatic stress [employer] History: - - Tubal ligation Smoking Status: Heavy Smoker (>10/day) Tobacco Use: Cigarettes Alcohol: None Drugs: None - *Family History Paternal History Items: Seizures - Epilepsy Maternal History Items: Asthma, COPD, Hypertension Sibling History Items: Cancer - Lung, Hypertension Review of Systems Constitutional: Reports: Chills, Fever, Weakness. Denies: Anorexia Eyes: Denies: Blurred vision, Double vision, Drainage, Redness HEENT: Denies: Difficulty Hearing, Dysphasia, Ear Pain, Eye Pain, Nasal Congestion, Sore Throat Cardiovascular: Denies: Chest Pain, Chest Pressure, Chest Tightness, Edema, Heaviness, Palpitations, Syncope Respiratory: Denies: Cough, Hemoptysis, Pleuritic Pain, Shortness of Breath, Sputum production Gastrointestinal: Reports: Abdominal Pain, Nausea. Denies: Constipation, Diarrhea, Vomiting Genitourinary: Reports: Frequency, Urgency, - - Foul-smelling urine.. Denies: Dysuria Musculoskeletal: Denies: Arm Pain, Back Pain, Foot Pain Skin: Denies: Dryness, Rash Neurological: Denies: Balance problems, Blurred vision, Double vision, Change in Speech, Slurred speech, Confusion, Headaches, Incoordination Psychiatric: Reports: Depression. Denies: Anxiety Endocrine: Denies: Change in Body Habitus, Polydipsia, Polyuria VTE Information - Inpt Only VTE Present on Admission: No VTE Mechan Device Prophylaxis: None VTE Pharm Prophylaxis ordered?: No - Physical Exam Vitals/I&O's: Vital Signs Temp Pulse Resp BP Pulse Ox 100.3 F H 120 H 20 H 159/93 H 98 12/03/19 15:46 12/03/19 15:46 12/03/19 15:46 12/03/19 15:46 12/03/19 15:46 Oxygen Delivery Method Room Air Weight: 185 lb 6.54 oz Body Mass Index (BMI) 31.8 Intake and Output for Last 24 Hours 12/01/19 12/02/19 12/03/19 23:59 23:59 23:59 Intake Total Balance General: Alert, Oriented x3, Cooperative, - - She is in moderate pain. HEENT: Atraumatic, PERRLA, EOMI, Normocephalic Oral: Moist Mucosa, No Gingival or Mucosal Lesions/ Ulcerations Neck: Supple, No JVD, Negative Carotid Bruits, Trachea Midline, Thyroid Normal Size and Texture Lungs: No rhonchi, No rales, Diminished, Wheezes, - - Occasional expiratory wheezes. Cardiovascular: Regular rate, Regular Rhythm, Normal S1, Normal S2, PMI Normal, Tachycardic Abdomen: Bowel Sounds Present, Non-Distended, No Hepato-splenomegaly, Tender - Right costophrenic angle tenderness, minimal anterior tenderness. No guarding or rigidity. Extremities: No clubbing, No cyanosis, No edema Skin: No rashes, No breakdown Lymphatic: No Cervical, Supraclavicular, or Inguinal Adenopathy Neurological: Cranial nerves II-XII grossly intact, Motor Exam 5/5 strength throughout Psych/Mental Status: Normal Affect, Appropriate, Alert and oriented to time, place, person, mood and affect Laboratory Results 12/03/19 16:38: Urine Test Negative 12/03/19 16:38: Urine Color Yellow, Urine Clarity Cloudy, Urine pH 7.0, Ur Specific [place] 1.010, Urine Protein 100 H, Urine Glucose (UA) Normal, Urine Ketones 5 H, Urine Occult Blood 150 H, Urine Nitrite Positive H, Urine Bilirubin Negative, Urine Urobilinogen 4 H, Ur Leukocyte Esterase 500 H, Urine RBC 0-5 SEEN, Urine WBC 50-100 SEEN, Ur Squamous Epith Cells 0-5 SEEN, Urine Bacteria 4+, Urine Mucus 0 SEEN 12/03/19 17:08: WBC 18.9 H, RBC 4.68, Hgb 13.2, Hct 40.5, MCV 86.5, MCH 28.2, MC HC 32.6, RDW Std Deviation 45.4 H, RDW Coeff of Madhu 14.4, Plt Count 488 H, MPV 9.4, Immature Gran % (Auto) 0.500, Neut % (Auto) 78.7 H, Lymph % (Auto) 11.3 L, [place] % (Auto) 9.0, Eos % (Auto) 0.1, Baso % (Auto) 0.4, Absolute Neuts (auto) 14.9 H, Absolute Lymphs (auto) 2.14, Nucleated RBC % 0, Differential Comment SCANNED 12/03/19 17:08: Sodium 134 L, Potassium 3.4 L, Chloride 99, Carbon Dioxide 27.0, Anion Gap 8, BUN 10, Creatinine 0.74, Estim Creat Clear Calc 75.92, Est GFR (MDRD) Af Amer 106, Est GFR (MDRD) Non-Af 87, BUN/Creatinine Ratio 13.6, Glucose 113 H, Calcium 9.2, Total Bilirubin 0.90, AST 40 H, ALT 34, Alkaline Phosphatase 233 H, Total Protein 8.1, Albumin 3.0 L, Globulin 5.1 H, Albumin/Globulin Ratio 0.6 L, Lipase 59 L 12/03/19 17:08: Lactic Acid 1.0 Clinical Impression(s) from Imaging Studies Abdomen/Pelvis CT 12/03/19 16:55 IMPRESSION: Right renal swelling and perinephric stranding without visible obstructing ureter stone. Findings are likely related to pyelonephritis. Electronically Signed: Renard Strange MD at 18:20 EDT Tel , Service support , Current Medications Sodium Chloride () 1,000 mls @ 150 mls/hr IV .[id number] JEANIE Last Infusion: 12/03/19 18:04 Dose: 0 mls/hr Documented by: Ceftriaxone Sodium (Rocephin) 1 gm in 50 mls @ 100 mls/hr IV X1 ONE Stop: 12/03/19 18:45 Assessment/Plan All Active Problems Sepsis (Acute) Acute pyelonephritis (Acute) This is a 54 years old female patient presented to the emergency room because of right flank pain, chills, subjective fever as well as nausea and foul-smelling urine, found to have findings consistent with acute right pyelonephritis with sepsis and she is being admitted for treatment. #1 acute right pyelonephritis/sepsis: Urinalysis reviewed as well as CT scan abdomen and pelvis as above. Patient is having low-grade fever, tachycardic, significant leukocytosis with evidence of infection. Lactic acid was normal. She had a history of right pyelonephritis back on May, and urine culture revealed E. coli that was pansensitive. Plan: Admit to [facility] floor, telemetry, IV fluids, urine culture, blood culture, IV morphine PRN for pain, OxyIR PRN, IV antiemetics, Tylenol PRN, IV Rocephin 2 g every 24 hours, repeat CBC and BMP tomorrow morning. #2 mild hypokalemia: Plan to place potassium with IV potassium chloride, IV antiemetics, repeat BMP tomorrow morning. #3 COPD: Clinically stable, have some wheezing, pulse ox is maintained on room air. Plan for DuoNeb every 6 hours, albuterol PRN. #4 history of hypertension: Blood pressure has been controlled, she was taken off her antihypertensive medications. Today, blood pressure slight elevated likely because of pain. Plan for IV hydralazine PRN. #5 history of alcohol abuse: Quit smoking, resolved. #6 depression: Currently, she is not on medications. #7 DVT prophylaxis: Subcu Lovenox. This note was generated with [employer] dictation software. It may contain incorrect words, spelling, and punctuation that were not noted in checking the note before signing. Inpatient E&M: 13470 Init Hosp L3
[2019-12-03] MEDS: Potassium Chloride 10mEq/100mL 10 MEQ/100 ML IV.SOLN. 100 MEQ IV BOLUS ×2 (20:23→21:50)
[2019-12-03] MEDS: oxyCODONE 5 MG Tablet PO (20:46)
[2019-12-03] MEDS: Gabapentin 300 MG Capsule PO (21:00)
[2019-12-03] MEDS: Acetaminophen 325 MG Tablet 650 MG PO (23:08)
[2019-12-03] MEDS: Albuterol 2.5 MG/3 ML VIAL.NEB. INHALATION (23:18)
[2019-12-04] VITALS (12 sets, daily range): BP systolic 100–116; BP diastolic 56–75; PULSE 85–108; RESP 17–20; TEMP 36.8–37.2; O2SAT 92–95
[2019-12-04] MEDS: Ipratropium/Albuterol Sulfate 3 ML AMPUL.NEB INHALATION ×4 (01:33→19:25)
[2019-12-04] MEDS: 0.9% Normal Saline 1,000 ML 150 ML IV ×2 (02:32→09:01)
[2019-12-04] MEDS: oxyCODONE 5 MG Tablet PO ×4 (02:37→19:30)
[2019-12-04] MEDS: Gabapentin 300 MG Capsule PO ×3 (05:57→21:21)
[2019-12-04 06:09] LABS: Absolute Lymphocyte Count 2.55 X10^3/uL (0.83-4.51); Absolute Neutrophil Count 9.6 X10^3/uL (2.0-7.7); Basophil# 0.06 X10^3/uL; Basophil% 0.4 % (0-1); Eosinophils% 0.7 % (0-5); Hematocrit 36.5 % (37-47); Hemoglobin 11.4 g/dL (12.0-15.0); Lymphocyte # 2.55 X10^3/ul (4.0); Lymphocyte % 17.5 % (19-41); Mean Corp Hgb Conc 31.2 g/dL (32-36); Mean Corpuscular Hgb 28.1 pg (27.0-32.0); Mean Corpuscular Volume 90.1 fL (81-99); Mean Platelet Vol. 9.3 fl (6.2-12.0); Monocyte# 2.25 X10^3/uL; Monocyte% 15.4 % (0-10); NRBC Flagged by Analyzer 0 % (0-5); Neutrophil # 9.58 X10^3/uL (2.7-7.7); Neutrophil % 65.5 % (47-70); POSITIVE DIFFERENTIAL YES; Platelet Count 459 K/mm3 (150-450); RBC Distribution Width CV 14.3 % (11.6-14.6); RBC Distribution Width SD 47.8 fl (35.1-43.9); Red Blood Count 4.05 M/mm3 (4.2-5.4); White Blood Count 14.6 K/mm3 (4.4-11.0)
[2019-12-04 06:24] LABS: Anion Gap 6 (5-15); BUN 10 mg/dL (7-18); BUN/Creat Ratio 13.1 RATIO (10-20); Calcium,Total 8.1 mg/dL (8.5-10.1); Chloride 99 mmol/L (98-107); Creatinine, Serum 0.76 mg/dL (0.55-1.02); EST Glomerular Filtration Rate 84 mL/min (>60); Est Glom Filt Rate - Afr Amer 102 mL/min (>60); Estimated Creatinine Clearance 73.92 ml/min; Glucose 105 mg/dL (74-106); Potassium 3.3 mmol/L (3.5-5.1); Sodium Level 134 mmol/L (136-145)
[2019-12-04 06:25] LABS: Differential Indicated SCAN CRITERIA MET
[2019-12-04 06:40] LABS: Differential Comment SCANNED
[2019-12-04] MEDS: Enoxaparin 40 MG/0.4 ML Syringe SC (09:03)
--- NOTE | 2019-12-04 10:06 | PN_ITS ---
Objective: Patient had kidney failure secondary to septic shock from UTI in 2016. She was also temporary dialysis at that time her kidney function recovered. Since then she gets recurrent UTI and pyelonephritis. Last 1 was in 2019, similar right- sided pyelonephritis. Never seen by urologist. No fever or chills in the morning but had 101 Fahrenheit last night. Patient is still complaining of right flank pain, starting from right lumbar area with radiation to suprapubic region. Vitals/I&O's: Vital Signs Temp Pulse Resp BP Pulse Ox 99.0 F 95 17 116/75 92 12/04/19 05:04 12/04/19 06:59 12/04/19 05:04 12/04/19 05:04 12/04/19 05:04 Oxygen Delivery Method Room Air Weight: 184 lb Body Mass Index (BMI) 31.6 Intake and Output for Last 24 Hours 12/02/19 12/03/19 12/04/19 23:59 23:59 23:59 Intake Total 1257.5 / 1257.5 1452.5 / 1452.5 Balance 1257.5 / 1257.5 1452.5 / 1452.5 General: Alert, Oriented x3, Cooperative HEENT: Atraumatic, PERRLA, EOMI, Normocephalic Oral: No Gingival or Mucosal Lesions/ Ulcerations Neck: Supple, No JVD, Negative Carotid Bruits Lungs: Clear to auscultation, No rhonchi, No wheeze, No rales, Diminished Cardiovascular: Regular rate, Regular Rhythm, Normal S1, Normal S2, No murmurs Abdomen: Bowel Sounds Present, Soft, Non-Distended, Tender - Tenderness present over right flank, renal angle and suprapubic region Patient had dribbling of urine, burning micturition, incomplete emptying prior to admission but now symptoms have resolved. Extremities: No edema, Capillary Refill Less than 3 Seconds Skin: No rashes, No breakdown Musculoskeletal: No Tenderness to Palpation of Joints or Extremities, Arthritic Changes Neurological: Cranial nerves II-XII grossly intact, Deep Tendon Reflexes 2+/4 and Symmetrical, Neuro grossly intact Psych/Mental Status: Normal Affect, Appropriate Laboratory Results 12/03/19 16:38: Urine Test Negative 12/03/19 16:38: Urine Color Yellow, Urine Clarity Cloudy, Urine pH 7.0, Ur Specific [place] 1.010, Urine Protein 100 H, Urine Glucose (UA) Normal, Urine Ketones 5 H, Urine Occult Blood 150 H, Urine Nitrite Positive H, Urine Bilirubin Negative, Urine Urobilinogen 4 H, Ur Leukocyte Esterase 500 H, Urine RBC 0-5 SEEN, Urine WBC 50-100 SEEN, Ur Squamous Epith Cells 0-5 SEEN, Urine Bacteria 4+, Urine Mucus 0 SEEN 12/03/19 17:08: WBC 18.9 H, RBC 4.68, Hgb 13.2, Hct 40.5, MCV 86.5, MCH 28.2, MCHC 32.6, RDW Std Deviation 45.4 H, RDW Coeff of Madhu 14.4, Plt Count 488 H, MPV 9.4, Immature Gran % (Auto) 0.500, Neut % (Auto) 78.7 H, Lymph % (Auto) 11.3 L, [place] % (Auto) 9.0, Eos % (Auto) 0.1, Baso % (Auto) 0.4, Absolute Neuts (auto) 14.9 H, Absolute Lymphs (auto) 2.14, Nucleated RBC % 0, Differential Comment SCANNED 12/03/19 17:08: Sodium 134 L, Potassium 3.4 L, Chloride 99, Carbon Dioxide 27.0, Anion Gap 8, BUN 10, Creatinine 0.74, Estim Creat Clear Calc 75.92, Est GFR (MDRD) Af Amer 106, Est GFR (MDRD) Non-Af 87, BUN/Creatinine Ratio 13.6, Glucose 113 H, Calcium 9.2, Total Bilirubin 0.90, AST 40 H, ALT 34, Alkaline Phosphatase 233 H, Total Protein 8.1, Albumin 3.0 L, Globulin 5.1 H, Albumin/Globulin Ratio 0.6 L, Lipase 59 L 12/03/19 17:08: Lactic Acid 1.0 12/04/19 05:37: WBC 14.6 H, RBC 4.05 L, Hgb 11.4 L, Hct 36.5 L, MCV 90.1, MCH 28.1, MCHC 31.2 L, RDW Std Deviation 47.8 H, RDW Coeff of Madhu 14.3, Plt Count 459 H, MPV 9.3, Immature Gran % (Auto) 0.500, Neut % (Auto) 65.5, Lymph % (Auto) 17.5 L, [place] % (Auto) 15.4 H, Eos % (Auto) 0.7, Baso % (Auto) 0.4, Absolute Neuts (auto) 9.6 H, Absolute Lymphs (auto) 2.55, Nucleated RBC % 0, Differential Comment SCANNED, Diff Path Review November foll 12/04/19 05:37: Sodium 134 L, Potassium 3.3 L, Chloride 99, Carbon Dioxide 29.0, Anion Gap 6, BUN 10, Creatinine 0.76, Estim Creat Clear Calc 73.92, Est GFR (M DRD) Af Amer 102, Est GFR (MDRD) Non-Af 84, BUN/Creatinine Ratio 13.1, Glucose 105, Calcium 8.1 L Current Medications Acetaminophen (Tylenol) 650 mg PO Q6H PRN PRN PRN Reason: Pain Score 1-10/Temp > 100.7 F Last Admin: 12/03/19 23:08 Dose: 650 mg Documented by: Albuterol Sulfate (Ventolin Aerosols) 2.5 mg INHALATION Q2H PRN PRN PRN Reason: Shortness of breath, wheezing Last Admin: 12/03/19 23:18 Dose: 2.5 mg Documented by: Albuterol/Ipratropium (Duoneb) 3 ml INHALATION Q6H.RT [facility] Last Admin: 12/04/19 06:25 Dose: 3 ml Documented by: Enoxaparin Sodium (Lovenox) 40 mg SC DAILY [facility] Last Admin: 12/04/19 09:03 Dose: 40 mg Documented by: Gabapentin (Neurontin) 300 mg PO TID [facility] Last Admin: 12/04/19 05:57 Dose: 300 mg Documented by: Hydralazine HCl (Apresoline Iv) 10 mg IV Q8H PRN PRN PRN Reason: for SBP>160 Sodium Chloride () 1,000 mls @ 150 mls/hr IV .Q6H40M [facility] Last Admin: 12/04/19 09:01 Dose: 150 mls/hr Documented by: Ceftriaxone Sodium 2 gm/ (Sodium Chloride) 50 mls @ 100 mls/hr IV Q24@2200 [facility] Sodium Chloride () 250 mls @ 15 mls/hr IV .[id number] PRN PRN Reason: Saline Flush Sodium Chloride () 250 mls @ 15 mls/hr IV .[id number] PRN PRN Reason: Additional IVPB Infusion Morphine Sulfate () 2 mg IV Q3H PRN PRN PRN Reason: Pain Score 6-10/10 Ondansetron HCl (Zofran) 4 mg IV Q8H PRN PRN PRN Reason: NAUSEA/VOMITING Oxycodone HCl (Oxyir) 5 mg PO Q4H PRN PRN PRN Reason: Pain Score 4-5/10 Last Admin: 12/04/19 06:45 Dose: 5 mg Documented by: Senna/Docusate Sodium (Senokot-S, Dee-Colace) 2 tablet PO BID PRN PRN PRN Reason: Constipation Sodium Chloride () 10 - 40 ml IV UD PRN PRN Reason: SALINE FLUSH Zolpidem Tartrate (Ambien (Generic)) 5 mg PO QHS PRN PRN PRN Reason: INSOMNIA STROKE Vital Signs/Narrative: Vital Signs Pulse 12/04/19 06:59 95 Medical Necessity - Tobacco Use Smoking Status: Current every day smoker Tobacco Use: Cigarettes Assessment/Plan All Active Problems Sepsis (Acute) Acute pyelonephritis (Acute) This is a 54 years old female patient presented to the emergency room because of right flank pain, chills, subjective fever as well as nausea and foul-smelling urine, with labs and CT findings suggestive of sepsis secondary to acute right pyonephritis. #1 Sepsis due to acute right pyelonephritis/sepsis: UA is positive of WBC 5200 cells, LE 500. Nitrite positive. Blood cultures and urine culture pending. CT abdomen pelvis shows right pyelonephritis with a right renal swelling but without visible obstructing lesion. 1 mm nonobstructing left renal stone. Had history of acute kidney injury secondary to septic shock/UTI in 2016 which required temporary dialysis. Patient gets recurrent UTI/pyelonephritis since then, last one in 2019. At that time she grew E. coli sensitive to ceftriaxone and fluoroquinolones. Currently on IV ceftriaxone 2 g daily. #2 mild hypokalemia: Repeat K still low. Potassium replacement. Serum magnesium ordered #3 COPD: Clinically stable. Continue DuoNeb every 6 hours, albuterol PRN. #4 History of hypertension: Blood pressure has been controlled, she was taken off her antihypertensive medications. Blood pressure is in normal range. #5 history of alcohol abuse: Quit smoking, resolved. #6 depression: Currently, she is not on medications. #7 DVT prophylaxis: Subcu Lovenox. Inpatient E&M: 38545 Subs Hosp L2
[2019-12-04 11:54] LABS: Pathologist Review Reviewed
[2019-12-04 12:56] LABS: Magnesium 1.8 mg/dL (1.6-2.6)
--- NOTE | 2019-12-04 13:03 | CASEMGMT ---
Assessment- SW completed assessment with patient at bedside. SW also confirmed her address and phone number as well as her contact people. Living situation- Patient sometimes stays with her significant other in a 1 story home. However she stays in the basement, but uses the stair lift to go upstairs. She helps take care of her significant other's elderly mom. She also sometimes stays with her daughter and grand kids. That home is 3 levels and she lives in the attic. There are a few entry steps at her daughter's home. PCP: Dr Oakley Specialists: None Pharmacy: [facility] in [place] DME: cane and nebulizer ADL's/IADL's: Patient is independent. She drives, manages her own meds, bathes herself, cooks, and cleans. Past SNF/rehab: None Past HH: None LW: None POA: None Plan: Patient plans on returning home at d/c with no needs. Her daughter's address and phone number were incorrect in the computer so SW will correct this information. Coty [employer]
[2019-12-04] MEDS: 0.9% Saline Lock 10 ML Syringe IV (21:10)
[2019-12-05] MEDS: Ipratropium/Albuterol Sulfate 3 ML AMPUL.NEB INHALATION ×2 (01:26→06:44)
[2019-12-05 01:27] VITALS: PULSE 95; RESP 18
[2019-12-05 05:30] VITALS: BP 102/53; PULSE 94; RESP 18; TEMP 37.2; O2SAT 92
[2019-12-05] MEDS: Acetaminophen 325 MG Tablet 650 MG PO (05:38)
[2019-12-05] MEDS: Gabapentin 300 MG Capsule PO (05:38)
[2019-12-05] MEDS: oxyCODONE 5 MG Tablet PO ×2 (06:23→10:52)
[2019-12-05 06:29] LABS: Anion Gap 5 (5-15); BUN 10 mg/dL (7-18); Chloride 103 mmol/L (98-107); Creatinine, Serum 0.59 mg/dL (0.55-1.02); EST Glomerular Filtration Rate 114 mL/min (>60); Est Glom Filt Rate - Afr Amer 138 mL/min (>60); Estimated Creatinine Clearance 95.22 ml/min; Glucose 106 mg/dL (74-106); Potassium 3.7 mmol/L (3.5-5.1); Sodium Level 137 mmol/L (136-145)
[2019-12-05 07:00] VITALS: PULSE 96; RESP 19
--- NOTE | 2019-12-05 08:46 | PCM.DC ---
You will use the following diet at home:: Cardiac Discharge Activity: May Not Drive Call your doctor if you observe: Fever of 101 or Higher, Change in Color, Inability to have a bowel movement, Shortness of breath, Dizziness, Fainting spells, Swelling in the ankles, Chest pain, Prolonged hiccoughing, Increased palpitations (irregular heartbeat), Calf discomfort, Uncontrolled pain Allergies/Adverse Reactions: Allergies peanut Allergy (Verified 12/03/19 15:43) Anaphylaxis tree nut [Tree Nut] Allergy (Verified 12/03/19 15:43) Anaphylaxis Medications to take at Discharge Albuterol Aerosols [Ventolin Aerosols] 2.5 mg INHALATION Q4H PRN #25 vial 10/20/17 Albuterol Sulfate [Ventolin Hfa] 1 - 2 puff INHALATION PRN PRN 05/18/18 Ipratropium/Albuterol Sulfate [Duoneb] 3 ml INHALATION Q6H PRN 05/18/18 Epi Pen (for allergic rxn) 0.3 mg IM X1 #1 syringe 01/21/19 Gabapentin [Neurontin] 300 mg PO TID 03/21/19 Ciprofloxacin [Cipro] 500 mg PO BID #10 tab 12/05/19 The following prescriptions were given: Ciprofloxacin [Cipro] 500 mg PO BID #10 tab Transmission Status: Pending to [address] Primary Care Physician: Edvin Oakley III, MD [Primary Care Provider] - Please follow up with your Primary Care Physician in: in 2 weeks Test Results: Test results from this visit will be discussed in further detail at your follow-up appointment, if applicable. Please Follow Up With: Alexander Hull MD When: in 2-3 weeks for recurrent UTI, Pyelonephritis
--- NOTE | 2019-12-05 08:49 | DS.PCM_ITS ---
Discharge Date and Diagnosis Date of Admission: 12/03/19 Date of Discharge: 12/05/19 - Primary Discharge Diagnosis Sepsis due to right E. coli pyelonephritis Mild hypokalemia - Secondary Discharge Diagnosis Chronic Problems COPD (chronic obstructive pulmonary disease) (Chronic) History of alcohol use disorder (Chronic) Obesity (BMI 30-39.9) (Chronic) Iron deficiency anemia (Chronic) Depression (Chronic) Marijuana smoker (Chronic) HLD (hyperlipidemia) (Chronic) HTN (hypertension) (Chronic) Nicotine addiction (Chronic) Pulmonary hypertension (Chronic) Thrombocytosis (Chronic) Hospital Course and Treatment Operations: None Summary of Care Provided: [] This is a 54 years old female patient presented to the emergency room because of right flank pain, chills, subjective fever as well as nausea and foul-smelling urine, with labs and CT findings suggestive of sepsis secondary to acute right pyonephritis. #1 Sepsis due to acute right pyelonephritis/sepsis: UA is positive of WBC 5200 cells, LE 500. Nitrite positive. Blood culture negative for 48 hours. Urine culture grew E. coli, ESBL negative, resistant to ampicillin otherwise pansensitive. CT abdomen pelvis shows right pyelonephritis with a right renal swelling but without visible obstructing lesion. 1 mm nonobstructing left renal stone. Had history of acute kidney injury secondary to septic shock/UTI in 2016 which required temporary dialysis. Patient gets recurrent UTI/pyelonephritis since then, last one in 2019. At that time she grew E. coli sensitive to ceftriaxone and fluoroquinolones. Patient was treated with IV ceftriaxone during hospital course. Discharged on Cipro 500 mg twice daily for 5 more days to complete of total of 8 days of antibiotic. Advised to follow-up with urologist Dr. Hull for recurrent UTI and pyelonephritis. #2 mild hypokalemia: Repeat K still low. Potassium replacement. Serum magnesium 1.8. Repeat K normal #3 COPD: Clinically stable. Continue DuoNeb every 6 hours, albuterol PRN. #4 History of hypertension: Blood pressure has been controlled, she was taken off her antihypertensive medications. Blood pressure is in normal range. #5 history of alcohol abuse: Quit smoking, resolved. #6 depression: Currently, she is not on medications. Discharge medication reconciliation done. Discharge follow-up instructions completed. Discharge process discussed with the patient and all questions were answered to patient's satisfaction. Total time spent, exact 35 minutes on discharge meds reconciliation, examination, coordination of care with nurses and ancillary staff, review of imaging and blood test and discussion with the patient on follow-up instructions Subjective: No fever in about 48 hours. Patient had dribbling of urine, burning micturition, incomplete emptying prior to admission symptoms have resolved. Objective: General: Alert, Oriented x3, Cooperative HEENT: Atraumatic, PERRLA, EOMI, Normocephalic Oral: No Gingival or Mucosal Lesions/ Ulcerations Neck: Supple, No JVD, Negative Carotid Bruits Lungs: Clear to auscultation, No rhonchi, No wheeze, No rales, Diminished Cardiovascular: Regular rate, Regular Rhythm, Normal S1, Normal S2, No murmurs Abdomen: Bowel Sounds Present, Soft, Non-Distended, mild tenderness present over right renal angle and suprapubic region. Extremities: No edema, Capillary Refill Less than 3 Seconds Skin: No rashes, No breakdown Musculoskeletal: No Tenderness to Palpation of Joints or Extremities, Arthritic Changes Neurological: Cranial nerves II-XII grossly intact, Deep Tendon Reflexes 2+/4 and Symmetrical, Neuro grossly intact Psych/Mental Status: Normal Affect, Appropriate - Physical Exam Vitals/I&O's: Vital Signs Temp Pulse Resp BP Pulse Ox 99.0 F 94 18 102/53 L 92 12/05/19 05:30 12/05/19 05:30 12/05/19 05:30 12/05/19 05:30 12/05/19 05:30 Oxygen Flow Rate (L/min) 1 Oxygen Delivery Method Nasal Cannula Weight: 184 lb 1.376 oz Body Mass Index (BMI) 31.6 Intake and Output for Last 24 Hours 12/03/19 12/04/19 12/05/19 23:59 23:59 23:59 Intake Total 1257.5 / 1257.5 4362.5 / 4362.5 120 / 120 Balance 1257.5 / 1257.5 4362.5 / 4362.5 120 / 120 Microbiology Past 72 Hours 12/03/19 16:38 Urine, Clean Catch Urine Culture - Preliminary Gram negative sarah Laboratory Results 12/04/19 05:37: Diff Path Review Reviewed 12/04/19 05:37: Magnesium 1.8 12/05/19 05:18: Sodium 137, Potassium 3.7, Chloride 103, Carbon Dioxide 29.0, Anion Gap 5, BUN 10, Creatinine 0.59, Estim Creat Clear Calc 95.22, Est GFR (MDRD) Af Amer 138, Est GFR (MDRD) Non-Af 114, BUN/Creatinine Ratio 17.0, Glucose 106, Calcium 9.0 Current Medications Acetaminophen (Tylenol) 650 mg PO Q6H PRN PRN PRN Reason: Pain Score 1-10/Temp > 100.7 F Last Admin: 12/05/19 05:38 Dose: 650 mg Documented by: Albuterol Sulfate (Ventolin Aerosols) 2.5 mg INHALATION Q2H PRN PRN PRN Reason: Shortness of breath, wheezing Last Admin: 12/03/19 23:18 Dose: 2.5 mg Documented by: Albuterol/Ipratropium (Duoneb) 3 ml INHALATION Q6H.RT REPLACED BY [facility] Last Admin: 12/05/19 06:44 Dose: 3 ml Documented by: Enoxaparin Sodium (Lovenox) 40 mg SC DAILY REPLACED BY [facility] Last Admin: 12/04/19 09:03 Dose: 40 mg Documented by: Gabapentin (Neurontin) 300 mg PO TID REPLACED BY [facility] Last Admin: 12/05/19 05:38 Dose: 300 mg Documented by: Hydralazine HCl (Apresoline Iv) 10 mg IV Q8H PRN PRN PRN Reason: for SBP>160 Ceftriaxone Sodium 2 gm/ (Sodium Chloride) 50 mls @ 100 mls/hr IV Q24@2200 REPLACED BY [facility] Last Infusion: 12/04/19 21:50 Dose: Infused Documented by: Sodium Chloride () 250 mls @ 15 mls/hr IV .[id number] PRN PRN Reason: Saline Flush Sodium Chloride () 250 mls @ 15 mls/hr IV .[id number] PRN PRN Reason: Additional IVPB Infusion Ceftriaxone Sodium 2 gm/ (Sodium Chloride) 50 mls @ 100 mls/hr IV X1 ONE Stop: 12/05/19 10:29 Morphine Sulfate () 2 mg IV Q3H PRN PRN PRN Reason: Pain Score 6-10/10 Ondansetron HCl (Zofran) 4 mg IV Q8H PRN PRN PRN Reason: NAUSEA/VOMITING Oxycodone HCl (Oxyir) 5 mg PO Q4H PRN PRN PRN Reason: Pain Score 4-5/10 Last Admin: 12/05/19 06:23 Dose: 5 mg Documented by: Potassium Chloride (K-Dur) 40 meq PO DAILYCM JEANIE Senna/Docusate Sodium (Senokot-S, Dee-Colace) 2 tablet PO BID PRN PRN PRN Reason: Constipation Sodium Chloride () 10 - 40 ml IV UD PRN PRN Reason: SALINE FLUSH Last Admin: 12/04/19 21:10 Dose: 10 ml Documented by: Zolpidem Tartrate (Ambien (Generic)) 5 mg PO QHS PRN PRN PRN Reason: INSOMNIA Discharge Activity: May Not Drive Call your doctor if you observe: Fever of 101 or Higher, Change in Color, Inab ility to have a bowel movement, Shortness of breath, Dizziness, Fainting spells, Swelling in the ankles, Chest pain, Prolonged hiccoughing, Increased palpitations (irregular heartbeat), Calf discomfort, Uncontrolled pain Home Medications: Medications to take at Discharge Albuterol Aerosols [Ventolin Aerosols] 2.5 mg INHALATION Q4H PRN #25 vial 10/20/17 Albuterol Sulfate [Ventolin Hfa] 1 - 2 puff INHALATION PRN PRN 05/18/18 Ipratropium/Albuterol Sulfate [Duoneb] 3 ml INHALATION Q6H PRN 05/18/18 Epi Pen (for allergic rxn) 0.3 mg IM X1 #1 syringe 01/21/19 Gabapentin [Neurontin] 300 mg PO TID 03/21/19 Ciprofloxacin [Cipro] 500 mg PO BID #10 tab 12/05/19 Following Prescrptions Were Given to Patient: Ciprofloxacin [Cipro] 500 mg PO BID #10 tab Transmission Status: Pending to [address] Primary Care Physician: Edvin Oakley III, MD [Primary Care Provider] - Please follow up with your Primary Care Physician in: in 2 weeks Please Follow Up With: Alexander Hull MD When: in 2-3 weeks for recurrent UTI, Pyelonephritis Medical Necessity - Tobacco Use Smoking Status: Current every day smoker Tobacco Use: Cigarettes Meaningful Use Info Meaningful Use Diagnoses (Choose all that apply): None applicable Inpatient E&M: [id number] [facility]
[2019-12-05 08:57] LABS: Absolute Neutrophil Count 7.5 X10^3/uL (2.0-7.7); Basophil# 0.07 X10^3/uL; Basophil% 0.6 % (0-1); Differential Indicated SCAN CRITERIA MET; Eosinophil# 0.24 X10^3/uL; Hematocrit 34.5 % (37-47); Hemoglobin 10.6 g/dL (12.0-15.0); Lymphocyte % 22.1 % (19-41); Mean Corp Hgb Conc 30.7 g/dL (32-36); Mean Corpuscular Volume 91.3 fL (81-99); Mean Platelet Vol. 9.7 fl (6.2-12.0); Monocyte# 1.71 X10^3/uL; NRBC Flagged by Analyzer 0 % (0-5); Neutrophil # 7.45 X10^3/uL (2.7-7.7); Neutrophil % 60.8 % (47-70); POSITIVE DIFFERENTIAL YES; Platelet Count 489 K/mm3 (150-450); RBC Distribution Width CV 14.4 % (11.6-14.6); RBC Distribution Width SD 48.5 fl (35.1-43.9); Red Blood Count 3.78 M/mm3 (4.2-5.4); White Blood Count 12.2 K/mm3 (4.4-11.0)
[2019-12-05 09:01] VITALS: O2SAT 96
[2019-12-05 10:44] VITALS: BP 103/63; PULSE 84; RESP 16; TEMP 36.8; O2SAT 94
--- NOTE | 2019-12-05 15:45 | CASEMGMT ---
RADHA OGDEN NOTE: Received message from ALIN Mehta @ [facility], inquiring about collaborating medications for pt @ discharge. Call placed back to Janine @ [phone]. She was made aware pt has been discharged home today. Faxed Discharge instructions and summary to her at this time to [phone]. Delgado MCCONNELL RN, CM
[2019-12-06 11:31] LABS: Pathologist Review Reviewed
--- NOTE | 2019-12-06 14:52 | CASEMGMT ---
RADHA OGDEN DC PHONE CALL DC DATE: 12.05.19 DC DISPOSITION: Sepsis DC DIAGNOSIS: Sepsis/pyelonephritis LACE/STRATA: 05/21 F/U APPTS MADE PRIOR TO DC: yes PRESCRIPTIONS ACQUIRED BY PT: yes Intro role of CM to patient via phone. Pt states she still is not feeling well. Reviewed appointments and recommended if pt continues to feel same tomorrow to contact her PCP and request earlier virtual visit. Pt is agreeable. No questions re: medications or instructions. No care improvement suggestions were given. Natanael MCCONNELL RN ACM
== END 2019-12-05 13:20 | disposition home or self-care (01) | DRG 872 ==
LOC: ED 17:26 → PCU 18:53
PROVIDERS: Admitting Provider Hospitalist; Emergency Provider Emergency Medicine; PCP Family Medicine; Referring Provider Hospitalist; Visit Provider Internal Medicine
DX: A41.9 Sepsis, unspecified organism (principal); N10 Acute pyelonephritis; N20.0 Calculus of kidney; B96.20 Unspecified Escherichia coli [E. coli] as the cause of diseases classified elsewhere; E87.6 Hypokalemia; J44.9 Chronic obstructive pulmonary disease, unspecified; I10 Essential (primary) hypertension; I27.20 Pulmonary hypertension, unspecified; E78.5 Hyperlipidemia, unspecified; D47.3 Essential (hemorrhagic) thrombocythemia; D50.9 Iron deficiency anemia, unspecified; F32.9 Major depressive disorder, single episode, unspecified; G40.909 Epilepsy, unspecified, not intractable, without status epilepticus; F12.90 Cannabis use, unspecified, uncomplicated; F43.10 Post-traumatic stress disorder, unspecified; F10.10 Alcohol abuse, uncomplicated; F17.210 Nicotine dependence, cigarettes, uncomplicated; Z86.73 Personal history of transient ischemic attack (TIA), and cerebral infarction without residual deficits; Z79.899 Other long term (current) drug therapy; Z87.440 Personal history of urinary (tract) infections
CPT/HCPCS: 36415; 74176; 80048; 80053; 81001; 81025; 83605; 83690; 83735; 85025; 87040; 87077; 87086; 87088; 87186; 94640; 96365; 96375; 99251; 99284; 99406; J7030; A4216; G0463; J0696; J2405

== ENCOUNTER 2020-08-11 19:45 | Emergency (ER) | payer BC, MEDICARE, MEDICAID, SELFPAY ==
[2019-12-03 19:05] VITALS: BMI 31.6
[2020-08-11] VITALS (7 sets, daily range): BP systolic 131–175; BP diastolic 76–101; PULSE 86–118; RESP 12–24; TEMP 35.3; O2SAT 95–98; BMI 33.0
--- NOTE | 2020-08-11 19:59 | CT_ITS ---
STUDY: CT ABDOMEN AND PELVIS WITH CONTRAST REASON FOR EXAM: Female, 55 years old. Fall rt rib, ruq and back pain RADIATION DOSAGE (If Supplied By Facility): CTDIvol = ( 19.73 ) mGy, DLP = ( 1967.00 ) mGycm TECHNIQUE: Transaxial images were obtained from the dome of the diaphragm to the symphysis pubis without oral contrast. IV 100mL Isovue-370 was administered. Sagittal and coronal images were reconstructed. Individualized dose optimization techniques were used for this CT. COMPARISON: None. FINDINGS: Normal liver. Status post cholecystectomy. Mild prominence of the extrahepatic biliary system. Normal spleen. Normal pancreas. Normal bilateral adrenal glands. Normal right kidney. Normal left kidney. Normal visualized stomach. Distal esophageal wall thickening. Problem ileus in the left mid abdominal area. Normal colon. The appendix is visualized and appears normal. Normal abdominal aorta. Normal inferior vena cava. Normal retroperitoneum. Normal urinary bladder. Normal abdominal wall. Normal osseous structures. CT/Abdomen/Pelvis W IV Cont ONLY IMPRESSION: Distal esophageal wall thickening. Correlate with endoscopy if needed. Primary focal small bowel ileus in the left mid abdomen. Electronically Signed: Kojo Madison DO at 22:22 EST Tel [phone], Service support ,
--- NOTE | 2020-08-11 20:00 | CT_ITS ---
STUDY: CT CHEST WITH CONTRAST REASON FOR EXAM: Female, 55 years old. FALL/RUQ,RT RIB AND BACK PAIN RADIATION DOSAGE (If Supplied By Facility): CTDIvol = ( 19.73 ) mGy, DLP = ( 1967.00 ) mGycm TECHNIQUE: Transaxial imaging was performed following intravenous administration of IV 100mL Isovue-370. Individualized dose optimization techniques were used for this CT. COMPARISON: None. FINDINGS: The lungs are expanded. Mild left upper lobe and right lower lobe interstitial prominence/atelectasis. Normal heart and pericardium. Normal mediastinum. Normal hilar regions. Normal enhanced pulmonary arteries. Normal aorta arch and descending thoracic aorta. Degenerative vertebral changes. There is wall thickening of the distal esophagus with proximal esophageal fluid retention. CT/Chest WITH Contrast IMPRESSION: Mild left upper lobe and right lower lobe interstitial prominence/atelectasis. Electronically Signed: Kojo Madison DO at 22:14 EST Tel [phone], Service support ,
--- NOTE | 2020-08-11 20:01 | CT_ITS ---
STUDY: CT CERVICAL SPINE WITHOUT CONTRAST REASON FOR EXAM: Female, 55 years old. FALL/RT RIB, RUQ AND BACK PAIN RADIATION DOSAGE (If Supplied By Facility): CTDIvol = ( 23.36 ) mGy, DLP = ( 462.69 ) mGycm TECHNIQUE: High resolution transaxial imaging was performed without contrast material. Sagittal and coronal images were reconstructed. Individualized dose optimization techniques were used for this CT. COMPARISON: None FINDINGS: Normal craniovertebral junction. Normal anterior atlantoaxial articulation. Normal odontoid process. Normal cervical lordosis. Normal vertebral bodies and posterior osseous elements. C2-3: Normal endplates. Normal disc height and morphology. Normal central canal and intervertebral neuroforamina. C3-4: Normal endplates. Normal disc height and morphology. Normal central canal. Uncovertebral spurring and facet hypertrophy narrowing the intervertebral neuroforamina. C4-5: Normal endplates. Normal disc height and morphology. Normal central canal. Facet hypertrophy and uncovertebral spurring narrowing the right intervertebral neural foramen. C5-6: Spurring at the endplates. Narrowed disc height. Posterior spurring protruding into the central canal. Uncovertebral spurring narrowing the intervertebral neuroforamina, right more than left. C6-7: Normal endplates. Normal disc height and morphology. Normal central canal and intervertebral neuroforamina. C7-T1: Normal endplates. Normal disc height and morphology. Normal central canal and intervertebral neuroforamina. Normal visualized soft tissue structures. CT/Spine Cervical without Contras IMPRESSION: Degenerative changes of the cervical spine. Electronically Signed: Kojo Madison DO at 22:07 EST Tel [phone], Service support ,
--- NOTE | 2020-08-11 20:01 | CT_ITS ---
STUDY: CT BRAIN WITHOUT CONTRAST REASON FOR EXAM: Female, 55 years old. FALL/RT RIB, RUQ AND BACK PAIN RADIATION DOSAGE (If Supplied By Facility): CTDIvol = ( 44.99 ) mGy, DLP = ( 782.05 ) mGycm TECHNIQUE: Transaxial CT imaging of the brain was performed without administration of intravenous contrast material. Individualized dose optimization techniques were used for this CT. COMPARISON: 10/17/2016 FINDINGS: Normal soft tissue structures. Normal calvarium. Normal size ventricles and extra-axial spaces for the patient''s age. Old right frontoparietal infarct. Normal white matter tracts of the cerebral hemispheres. Normal basal ganglia and thalami. Normal brainstem. Normal cerebellum. There is no intracranial hemorrhage. There are no findings of an acute ischemic infarction. Normal visualized paranasal sinuses. CT/Brain/Head without Contrast IMPRESSION: Old right frontal infarct. No acute intracranial pathology. Electronically Signed: Kojo Madison DO at 22:01 EST Tel [phone], Service support ,
--- NOTE | 2020-08-11 20:02 | ED.VISSUMM ---
- ER Visit Summary Date of Service: 08/11/20 Chief Complaint: Fall History of Present Illness: The patient is a 55 F presenting after fall. Patient states this morning she stepped in a hole in her basement lost her balance and fell onto her right side. She complains of right-sided rib and abdominal pain. She also complains of left lower back pain, denies hematuria. She does not believe she hit her head, denies losing consciousness. She was able to get up right away and states the pain has progressively worsened throughout the day. She tried Tylenol at home. Physical Examination: Vitals are stable. Patient is afebrile. Alert no acute distress. HEENT exam is unremarkable. Neck is nontender Lungs are wheezing bilaterally. Right mid and lower chest wall tenderness with no crepitus Heart is regular rate and rhythm. Abdomen is soft right upper quadrant tenderness with no guarding or rebound Back: Mild left CVA tenderness Extremities are unremarkable. Skin is warm and dry. No focal neurologic deficit. Remainder of exam is unremarkable. Emergency Department Course and Treatment: Patient was given morphine, Zofran IV. CT head shows old right frontal infarct. No acute intracranial pathology. CT cervical spine shows Degenerative changes of the cervical spine. CT chest shows Mild left upper lobe and right lower lobe interstitial prominence/atelectasis. No displaced rib fracture. CT abdomen pelvis shows distal esophageal wall thickening. Correlate with endoscopy if needed. Primary focal small bowel ileus in the left mid abdomen. Patient was advised of these findings and will need outpatient follow-up. On reevaluation patient continues to be in significant amount of pain and is unable to sit up without significant pain. She continues to have wheezing and was given DuoNeb aerosol. Will discuss with the hospitalist for observation. Disposition: Observation Impression: Chest wall contusion, intractable pain This note was generated with retickr dictation software. It may contain incorrect words, spelling, and punctuation that were not noted in review of the chart prior to signing ED Disposition - Plan for ED Patient: Referrals: Edvin Oakley III, MD [Primary Care Provider] -
[2020-08-11] MEDS: Ondansetron 4 MG/2 ML Vial IV (20:17)
[2020-08-11] MEDS: Morphine 4 MG/ML Syringe IV ×2 (20:17→20:46)
[2020-08-11 20:29] LABS: Absolute Lymphocyte Count 3.41 X10^3/uL (0.83-4.51); Absolute Neutrophil Count 8.8 X10^3/uL (2.0-7.7); Basophil# 0.08 X10^3/uL; Basophil% 0.6 % (0-1); Eosinophil# 0.29 X10^3/uL; Eosinophils% 2.1 % (0-5); Hematocrit 41.7 % (37-47); Hemoglobin 13.4 g/dL (12.0-15.0); Lymphocyte # 3.41 X10^3/ul (4.0); Lymphocyte % 25.1 % (19-41); Mean Corp Hgb Conc 32.1 g/dL (32-36); Mean Corpuscular Hgb 28.4 pg (27.0-32.0); Mean Corpuscular Volume 88.3 fL (81-99); Mean Platelet Vol. 9.5 fl (6.2-12.0); Monocyte# 0.96 X10^3/uL; Monocyte% 7.1 % (0-10); NRBC Flagged by Analyzer 0 % (0-5); Neutrophil # 8.81 X10^3/uL (2.7-7.7); Neutrophil % 64.8 % (47-70); Platelet Count 490 K/mm3 (150-450); RBC Distribution Width CV 13.4 % (11.6-14.6); Red Blood Count 4.72 M/mm3 (4.2-5.4); White Blood Count 13.6 K/mm3 (4.4-11.0)
[2020-08-11 20:44] LABS: ALB/GLOB Ratio 0.8 RATIO (0.9-2.4); AST(SGOT) 23 U/L (15-37); Alanine Aminotransfer ALT/SGPT 24 U/L (13-56); Albumin, Serum 3.3 g/dL (3.2-5.0); Alkaline Phosphatase 140 U/L (45-117); Anion Gap 6 (5-15); BUN 13 mg/dL (7-18); BUN/Creat Ratio 14.1 RATIO (10-20); Calcium,Total 9.3 mg/dL (8.5-10.1); Chloride 107 mmol/L (98-107); Creatinine, Serum 0.92 mg/dL (0.55-1.02); EST Glomerular Filtration Rate 68 mL/min (>60); Est Glom Filt Rate - Afr Amer 82 mL/min (>60); Glucose 120 mg/dL (74-106); Protein, Total 7.3 g/dL (6.4-8.2); Sodium Level 140 mmol/L (136-145)
[2020-08-11] MEDS: Ipratropium/Albuterol Sulfate 3 ML AMPUL.NEB INHALATION (22:52)
--- NOTE | 2020-08-11 23:00 | PCM.HP.STD ---
History of Present Illness The patient is a 55 year old F [] Past Medical History Past Medical History (Chronic Problems): Chronic Problems COPD (chronic obstructive pulmonary disease) (Chronic) History of alcohol use disorder (Chronic) Obesity (BMI 30-39.9) (Chronic) Iron deficiency anemia (Chronic) Depression (Chronic) Marijuana smoker (Chronic) HLD (hyperlipidemia) (Chronic) HTN (hypertension) (Chronic) Nicotine addiction (Chronic) Pulmonary hypertension (Chronic) Thrombocytosis (Chronic) Allergies peanut Allergy (Verified 08/11/20 19:48) Anaphylaxis tree nut [Tree Nut] Allergy (Verified 08/11/20 19:48) Anaphylaxis Home Medications: Ambulatory Orders Medication Instructions Recorded Albuterol Aerosols [Ventolin 2.5 mg INHALATION Q4H PRN #25 vial 10/20/17 Aerosols] Albuterol Sulfate [Ventolin Hfa] 1 - 2 puff INHALATION PRN PRN 05/18/18 Ipratropium/Albuterol Sulfate 3 ml INHALATION Q6H PRN 05/18/18 [Duoneb] Epi Pen (for allergic rxn) 0.3 mg IM X1 #1 syringe 01/21/19 Gabapentin [Neurontin] 300 mg PO TID 03/21/19 Fluticasone/Vilanterol [Breo 1 ea IH DAILY 08/11/20 Ellipta 200-25 Mcg INH] Surgical History: cholecystectomy, - - Cholecystectomy, tubal ligation. 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 Smoking Status: Current every day smoker - *Family History Paternal History Items: Seizures - Epilepsy Maternal History Items: Asthma, COPD, Hypertension Sibling History Items: Cancer - Lung, Hypertension - Physical Exam Vitals/I&O's: Vital Signs Temp Pulse Resp BP Pulse Ox 95.6 F L 100 23 H 168/101 H 95 08/11/20 19:46 08/11/20 22:55 08/11/20 22:55 08/11/20 21:49 08/11/20 21:49 Oxygen Delivery Method Room Air Weight: 90 kg Body Mass Index (BMI) 33.0 Intake and Output for Last 24 Hours 08/09/20 08/10/20 08/11/20 23:59 23:59 23:59 Intake Total 500 / 500 Balance 500 / 500 Laboratory Results 08/11/20 20:20: WBC 13.6 H, RBC 4.72, Hgb 13.4, Hct 41.7, MCV 88.3, MCH 28.4, MCHC 32.1, RDW Std Deviation 44.0 H, RDW Coeff of Madhu 13.4, Plt Count 490 H, MPV 9.5, Immature Gran % (Auto) 0.300, Neut % (Auto) 64.8, Lymph % (Auto) 25.1, [place] % (Auto) 7.1, Eos % (Auto) 2.1, Baso % (Auto) 0.6, Absolute Neuts (auto) 8.8 H, Absolute Lymphs (auto) 3.41, Nucleated RBC % 0 08/11/20 20:20: Sodium 140, Potassium 4.0, Chloride 107, Carbon Dioxide 27.0, Anion Gap 6, BUN 13, Creatinine 0.92, Estim Creat Clear Calc 62.90, Est GFR (MDRD) Af Amer 82, Est GFR (MDRD) Non-Af 68, BUN/Creatinine Ratio 14.1, Glucose 120 H, Calcium 9.3, Total Bilirubin 0.20, AST 23, ALT 24, Alkaline Phosphatase 140 H, Total Protein 7.3, Albumin 3.3, Globulin 4.0, Albumin/Globulin Ratio 0.8 L Assessment/Plan All Active Problems Sepsis (Acute) Acute pyelonephritis (Acute)
--- NOTE | 2020-08-11 23:17 | ED.DEP ---
ED Disposition - Plan for ED Patient: Instructions: ED Mechanical Fall, ED Contusion, Rib Prescriptions: Hydrocodone Bitart/Apap 5-325 [[place] 5MG-325MG] 1 tab PO Q6H PRN PRN 3 Days #10 tab PRN Reason: Pain Prescription Printed Referrals: Evdin Oakley III, MD [Primary Care Provider] -
== END 2020-08-11 23:42 | disposition home or self-care (01) ==
PROVIDERS: Emergency Provider Emergency Medicine; PCP Family Medicine
DX: S20.211A Contusion of right front wall of thorax, initial encounter (principal); W17.2XXA Fall into hole, initial encounter; Y93.9 Activity, unspecified; Y92.008 Other place in unspecified non-institutional (private) residence as the place of occurrence of the external cause; Y99.9 Unspecified external cause status; I10 Essential (primary) hypertension; J44.9 Chronic obstructive pulmonary disease, unspecified
CPT/HCPCS: 70450; 71260; 72125; 74177; 80053; 85025; 94640; 96361; 96374; 96375; 99284; J7030; Q9967; J2405

== ENCOUNTER 2020-11-23 20:10 | Observation (INO) | payer MEDICARE, MEDICAID, SELFPAY ==
[2020-08-11 19:46] VITALS: BMI 33.0
[2020-11-23 20:11] VITALS: BP 134/88; PULSE 92; RESP 15; TEMP 37.1; O2SAT 97; BMI 32.5
--- NOTE | 2020-11-23 20:26 | EX.ED.DYSGE1 ---
HPI History of Present Illness Chief Complaint: Flank Pain Narrative Narrative: 55-year-old female presenting with right flank pain. She states that it started hurting about 2 days ago without any known injury. Is gradually progressed. It radiates around the right side of the abdomen. Patient states that she is unsure if she has a history of kidney stones. She is very tearful and appears to be in pain. She does indicate that she is has history of pyelonephritis before. She denies that she has had any fever. She has nausea without vomiting. She denies diarrhea or constipation. No vaginal complaints. PFSH FOR[facility]LY [facility], LATER [facility] Medical History (Updated 11/23/20 @ 20:23 by Kate Kern) Asthma COPD (chronic obstructive pulmonary disease) Home Medications albuterol sulfate 2.5 mg INHALATION Q4H PRN #25 vial 10/20/17 [Rx Last Taken 05/18/18] albuterol sulfate [Ventolin HFA] 1 - 2 puff INHALATION PRN PRN 05/18/18 [History Last Taken 03/20/19] epinephrine 0.3 mg IM X1 #1 syringe 01/21/19 [Rx Last Taken Unknown] gabapentin 300 mg PO TID 03/21/19 [History Last Taken 03/19/19] Allergy/AdvReac Type Severity Reaction Status Date / Time peanut Allergy Anaphylaxis Verified 11/23/20 20:11 tree nut [Tree Nut] Allergy Anaphylaxis Verified 11/23/20 20:11 Surgical History (Updated 11/23/20 @ 20:23 by Kate Kern) History of bilateral ligation of fallopian tubes History of cholecystectomy Social History Smoking Status: Current every day smoker ROS [facility] ED Constitutional Constitutional ED: Denies chills, fever(s) or sweats Eyes Eyes: Denies blurry vision or change in vision ENT ENT ED: Denies ear pain, rhinorrhea or sore throat Cardiovascular Cardiovascular: Denies chest pain, palpitations or racing heartbeat Respiratory/Chest Respiratory/Chest: Denies cough, dyspnea or sputum Gastrointestinal Gastrointestinal: Reports abdominal pain; Denies constipation, diarrhea or vomiting Genitourinary Genitourinary ED: Denies dysuria, hematuria or urinary frequency Musculoskeletal Musculoskeletal: Reports back pain and other Details: Right flank pain ; Denies arthralgias, myalgias or neck pain Integumentary Denies abscess, Abrasions or rash Neurologic Neurologic: Denies headache(s), paresthesias or weakness Psychiatric Psychiatric: Denies anxiety, depression, suicidal ideation or suicidal thoughts Endocrine Endocrinology: Denies polydipsia or polyuria EXAM Physical Exam Const Vital Signs: 11/23/20 20:11 11/23/20 21:09 11/23/20 21:40 Temperature 98.8 F 97.4 F L Temperature Source Temporal Temporal Pulse Rate 92 91 92 Respiratory Rate 15 20 H 18 Blood Pressure 134/88 H 137/82 H 123/88 H Blood Pressure Mean 103 100 99 Pulse Ox 97 96 87 Oxygen Delivery Method Room Air Room Air Room Air Oxygen Flow Rate (L/min) 11/23/20 21:41 11/23/20 23:06 Temperature Temperature Source Pulse Rate 87 Respiratory Rate 16 Blood Pressure 155/92 H Blood Pressure Mean 113 Pulse Ox 96 96 Oxygen Delivery Method Nasal Cannula Nasal Cannula Oxygen Flow Rate (L/min) 2 2 Positive obese General Appearance ED: other Appears to be in pain ; Negative for pallor Nutritional Appearance: obese HEENT Reports moist mucous membranes Negative for trauma or tenderness Eyes PERRL and EOMs intact bilaterally Resp normal respiratory effort and clear to auscultation bilaterally Cardio regular rate and regular rhythm GI normal to inspection, nondistended, normoactive bowel sounds and non-distended Auscultation: normoactive bowel sounds Palpation: soft Back/Spine General Back: CVA tenderness right Extremity normal to inspection General Extremety ED: Yes tenderness Neuro oriented x3 and CN's II-XII intact bilaterally Sensorium / Orientation: alert Psych Attitude: agitated Mood & Affect: tearful Skin no wounds General Skin Exam: Negative for jaundice or pallor MDM MDM MDM Narrative Medical decision making narrative: 55-year-old female presenting with right flank pain. She does have CVA tenderness on exam. Urinalysis is found to have infection. She is given Rocephin after urine culture is sent. CBC shows a leukocytosis of 19,000. Renal function and electrolytes are normal. Patient's vital signs are stable and she is afebrile. She needed repeated dosing of pain medication including morphine 4 mg IV, Dilaudid x2 IV. She feels that she is a stay for pain control. I did obtain CT imaging of the abdomen pelvis to make sure there was no kidney stone and there is none seen on the right. There is a nonobstructing stone on the left. Patient counseled on findings and amenable to admission. Impression: 1. Acute pyelonephritis 2. Leukocytosis 3. Intractable pain Lab Data Labs: Laboratory Results - last 24 hr 11/23/20 11/23/20 11/23/20 20:55 20:55 21:15 WBC 19.0 H RBC 4.79 Hgb 13.0 Hct 42.2 MCV 88.1 MCH 27.1 MCHC 30.8 L RDW Std Deviation 44.7 H RDW Coeff of Madhu 13.8 Plt Count 645 H MPV 8.8 Immature Gran % (Auto) 0.600 Neut % (Auto) 77.6 H Lymph % (Auto) 14.1 L Wilson % (Auto) 6.5 Eos % (Auto) 0.8 Baso % (Auto) 0.4 Absolute Neuts (auto) 14.8 H Absolute Lymphs (auto) 2.69 Nucleated RBC % 0 Sodium 133 L Potassium 3.9 Chloride 97 L Carbon Dioxide 31.0 Anion Gap 5 BUN 9 Creatinine 0.75 Estim Creat Clear Calc 77.16 Est GFR (MDRD) Af Amer 103 Est GFR (MDRD) Non-Af 86 BUN/Creatinine Ratio 12.0 Glucose 102 Calcium 9.0 Urine Color Yellow Urine Clarity Sl. Cloudy Urine pH 6.5 Ur Specific Model 1.010 Urine Protein 15 H Urine Glucose (UA) Normal Urine Ketones Negative Urine Occult Blood 50 H Urine Nitrite Positive H Urine Bilirubin Negative Urine Urobilinogen Normal Ur Leukocyte Esterase 500 H Urine RBC 0 SEEN Urine WBC >100 SEEN Ur Squamous Epith Cells 0-5 SEEN Urine Bacteria 1+ Urine Mucus 0 SEEN Radiography Diagnostic Testing: Radiology Impression Abdomen/Pelvis CT 11/23/20 22:03 IMPRESSION: No definite acute abnormality. Continued thickening of the wall of the distal esophagus, also present previously. Endoscopy recommended. Common bile duct is dilated but stable. Correlate with liver function tests. Nonobstructing left renal stone. Electronically Signed: Calvin Nicolas MD at 23:28 EDT , Service support , Discharge Plan Triage Chief Complaint: Flank Pain ED Provider: Hari Torrez Dx/Rx/DC Orders Prescriptions: No Action albuterol sulfate 2.5 MG/3 ML solution for nebulization 2.5 mg INHALATION Q4H PRN Qty: 25 RF: 0 albuterol sulfate [Ventolin HFA] 18 GM HFA aerosol inhaler 1 - 2 puff inhalation PRN PRN (Reason: Sob &/Or Wheezing) RF: 0 epinephrine 0.3 MG syringe 0.3 mg IM X1 Qty: 1 RF: 1 gabapentin 300 capsule 300 mg PO TID RF: 0 Primary Care Provider: Edvin Oakley III
[2020-11-23] MEDS: Morphine 4 MG/ML Syringe IV (20:30)
[2020-11-23] MEDS: Ondansetron 4 MG/2 ML Vial IV (20:31)
[2020-11-23] MEDS: Ketorolac 15 MG/ML Vial IV (20:31)
[2020-11-23 21:06] LABS: Absolute Lymphocyte Count 2.69 X10^3/uL (0.83-4.51); Absolute Neutrophil Count 14.8 X10^3/uL (2.0-7.7); Basophil# 0.07 X10^3/uL; Basophil% 0.4 % (0-1); Eosinophil# 0.16 X10^3/uL; Eosinophils% 0.8 % (0-5); Hematocrit 42.2 % (37-47); Lymphocyte # 2.69 X10^3/ul (0.83-4.51); Lymphocyte % 14.1 % (19-41); Mean Corp Hgb Conc 30.8 g/dL (32-36); Mean Corpuscular Hgb 27.1 pg (27.0-32.0); Mean Corpuscular Volume 88.1 fL (81-99); Mean Platelet Vol. 8.8 fl (6.2-12.0); Monocyte# 1.23 X10^3/uL; Monocyte% 6.5 % (0-10); NRBC Flagged by Analyzer 0 % (0-5); Neutrophil # 14.75 X10^3/uL (2.7-7.7); Neutrophil % 77.6 % (47-70); Platelet Count 645 K/mm3 (150-450); RBC Distribution Width CV 13.8 % (11.6-14.6); RBC Distribution Width SD 44.7 fl (35.1-43.9); Red Blood Count 4.79 M/mm3 (4.2-5.4)
[2020-11-23 21:09] VITALS: BP 137/82; PULSE 91; RESP 20; O2SAT 96
[2020-11-23] MEDS: HYDROmorphone 0.5 MG/0.5 ML SYRINGE IV ×2 (21:21→23:39)
[2020-11-23 21:29] LABS: Mucous, Urine 0 SEEN /hpf (<or=2+); Red Blood Cells-Urine 0 SEEN /hpf (0-5)
[2020-11-23 21:37] LABS: Color, Urine Yellow (Yellow); Glucose, Dipstick Normal (Normal); Ketone-Dipstick Negative (Negative); Leukocyte Esterase-Dipstick 500 /ul (Negative); Nitrite-Dipstick Positive (Negative); Occult Blood-Urine 50 /ul (Negative); Protein-Dipstick 15 mg/dl (Negative); Urine Bilirubin Dipstick Negative (Negative); Urine Clarity Sl. Cloudy (Clear); Urine Urobilinogen Normal (Normal); Urine pH 6.5 (5.0 - 8.0)
[2020-11-23 21:38] LABS: Anion Gap 5 (5-15); BUN 9 mg/dL (7-18); Chloride 97 mmol/L (98-107); Creatinine, Serum 0.75 mg/dL (0.55-1.02); EST Glomerular Filtration Rate 86 mL/min (>60); Est Glom Filt Rate - Afr Amer 103 mL/min (>60); Estimated Creatinine Clearance 77.16 ml/min; Glucose 102 mg/dL (74-106); Potassium 3.9 mmol/L (3.5-5.1); Sodium Level 133 mmol/L (136-145)
[2020-11-23 21:40] VITALS: BP 123/88; PULSE 92; RESP 18; TEMP 36.3; O2SAT 87
[2020-11-23 21:41] VITALS: O2SAT 96
[2020-11-23 21:43] LABS: Squamous Epithelial Cells - UA 0-5 SEEN /hpf (5-10); White Blood Cells >100 SEEN /hpf (0-5)
[2020-11-23 21:45] LABS: Bacteria 1+ /hpf (None Seen)
--- NOTE | 2020-11-23 22:03 | CT_ITS ---
STUDY: CT ABDOMEN AND PELVIS WITHOUT CONTRAST REASON FOR EXAM: Female, 55 years old. flank pain RADIATION DOSAGE (If Supplied By Facility): CTDIvol = ( 15.78 ) mGy, DLP = ( 780.38 ) mGycm TECHNIQUE: Transaxial images were obtained from the dome of the diaphragm to the symphysis pubis without oral contrast, and without intravenous contrast. Sagittal and coronal images were reconstructed. Follow-up Individualized dose optimization techniques were used for this CT. COMPARISON: 08/11/2020. FINDINGS: Limited views through the lower chest show patchy areas of density in both lung bases most consistent with subsegmental atelectasis. As on the previous study, prominent thickening of the wall of the distal esophagus is seen, endoscopy is recommended. Normal liver. There are surgical clips in the gallbladder fossa consistent with a prior cholecystectomy. Common bile duct measures 1.2 cm. This is similar to prior exam. Normal spleen. Normal pancreas. Normal bilateral adrenal glands. Normal right kidney. Left kidney has a 3 mm nonobstructing mid renal stone, otherwise normal left kidney. Evaluation of the GI tract is limited by absence of oral contrast. Small hiatal hernia. Cannot exclude stomach wall thickening. No dilated loops of bowel or evidence for obstruction. Cannot exclude segmental thickening of the christians[place] of the small or large bowel. Cannot exclude enteritis or colitis. Moderate diffuse fecal retention. Appendix within normal limits. There is diffuse atherosclerotic calcification of the abdominal aorta, without a demonstrated aneurysm. Normal inferior vena cava. Normal retroperitoneum. Normal urinary bladder. There is absence of the uterus consistent with a prior hysterectomy. Normal abdominal wall. Normal osseous structures. CT/Abdomen/Pelvis without Cont IMPRESSION: No definite acute abnormality. Continued thickening of the wall of the distal esophagus, also present previously. Endoscopy recommended. Common bile duct is dilated but stable. Correlate with liver function tests. Nonobstructing left renal stone. Electronically Signed: Calvin Nicolas MD at 23:28 EDT , Service support ,
[2020-11-23] MEDS: Ceftriaxone 1 GM/50 ML BAG IV (23:00)
[2020-11-23 23:06] VITALS: BP 155/92; PULSE 87; RESP 16; O2SAT 96
[2020-11-23 23:35] VITALS: BP 155/92; PULSE 87; RESP 16; TEMP 36.3; O2SAT 96
--- NOTE | 2020-11-23 23:35 | HP.PCM.HOS_ITS ---
HPI - General General Date of Admission: 11/23/20 HPI Narrative SAVANNAH IRVIN, is a 55 F with a significant history of COPD who presents to the emergency department with 3-day history of progressively worsening right flank pain that radiates to her right lower abdomen. She described the pain as sharp and stabbing. The pain worsens with coughing and movements. The pain improve somewhat with rest. At the emergency department she received multiple doses of Dilaudid. Primarily, emergency department recommend the patient be admitted for pain control. Patient also complains of nausea without vomiting. Patient reports dysuria with urine urgency. Of note patient was admitted on 12/03/2019 and discharged on 12/05/2019 for sepsis due to right E. coli polynephritis. FORMERLY [facility] Medical History Alcohol abuse Asthma Chronic pain COPD (chronic obstructive pulmonary disease) Dialysis patient Kidney stones Low back pain Pulmonary embolism Sleep apnea Smoker Stroke/cerebrovascular accident Substance abuse TIA (transient ischemic attack) Home Medications albuterol sulfate 2.5 mg INHALATION Q4H PRN #25 vial 10/20/17 [Rx Last Taken 05/18/18] albuterol sulfate [Ventolin HFA] 1 - 2 puff INHALATION PRN PRN 05/18/18 [History Last Taken 03/20/19] epinephrine 0.3 mg IM X1 #1 syringe 01/21/19 [Rx Last Taken Unknown] gabapentin 300 mg PO TID 03/21/19 [History Last Taken 03/19/19] Allergy/AdvReac Type Severity Reaction Status Date / Time peanut Allergy Anaphylaxis Verified 11/23/20 20:11 tree nut [Tree Nut] Allergy Anaphylaxis Verified 11/23/20 20:11 Family History Other COPD (chronic obstructive pulmonary disease) Cancer Surgical History History of bilateral ligation of fallopian tubes History of cholecystectomy Social History Smoking Status: Current every day smoker substance use type: marijuana ROS ROS Narrative 12 point review of system is negative except as stated in HPI. Vital Signs Vital Signs Vital Signs: 11/23/20 20:11 11/23/20 21:09 11/23/20 21:40 Temperature 98.8 F 97.4 F L Temperature Source Temporal Temporal Pulse Rate 92 91 92 Respiratory Rate 15 20 H 18 Blood Pressure 134/88 H 137/82 H 123/88 H Blood Pressure Mean 103 100 99 Pulse Ox 97 96 87 Oxygen Delivery Method Room Air Room Air Room Air Oxygen Flow Rate (L/min) 11/23/20 21:41 11/23/20 23:06 Temperature Temperature Source Pulse Rate 87 Respiratory Rate 16 Blood Pressure 155/92 H Blood Pressure Mean 113 Pulse Ox 96 96 Oxygen Delivery Method Nasal Cannula Nasal Cannula Oxygen Flow Rate (L/min) 2 2 Physical Exam Narrative Alert and oriented x3 Nontraumatic; normocephalic Lung clear to auscultate Heart sounds S1-S2. No murmur, gallop or rubs. Abdomen: Right CVA tenderness. Suprapubic tenderness. Bowel sounds present soft, nontender nondistended Extremity: Right big toe swelling tenderness. Lab / Micro Data Result Diagrams: 11/23/20 20:55 11/23/20 20:55 Labs: Laboratory Results - last 24 hr 11/23/20 11/23/20 11/23/20 20:55 20:55 21:15 WBC 19.0 H RBC 4.79 Hgb 13.0 Hct 42.2 MCV 88.1 MCH 27.1 MCHC 30.8 L RDW Std Deviation 44.7 H RDW Coeff of Madhu 13.8 Plt Count 645 H MPV 8.8 Immature Gran % (Auto) 0.600 Neut % (Auto) 77.6 H Lymph % (Auto) 14.1 L [place] % (Auto) 6.5 Eos % (Auto) 0.8 Baso % (Auto) 0.4 Absolute Neuts (auto) 14.8 H Absolute Lymphs (auto) 2.69 Nucleated RBC % 0 Sodium 133 L Potassium 3.9 Chloride 97 L Carbon Dioxide 31.0 Anion Gap 5 BUN 9 Creatinine 0.75 Estim Creat Clear Calc 77.16 Est GFR (MDRD) Af Amer 103 Est GFR (MDRD) Non-Af 86 BUN/Creatinine Ratio 12.0 Glucose 102 Calcium 9.0 Urine Color Yellow Urine Clarity Sl. Cloudy Urine pH 6.5 Ur Specific [employer] 1.010 Urine Protein 15 H Urine Glucose (UA) Normal Urine Ketones Negative Urine Occult Blood 50 H Urine Nitrite Positive H Urine Bilirubin Negative Urine Urobilinogen Normal Ur Leukocyte Esterase 500 H Urine RBC 0 SEEN Urine WBC >100 SEEN Ur Squamous Epith Cells 0-5 SEEN Urine Bacteria 1+ Urine Mucus 0 SEEN Radiology Impression Abdomen/Pelvis CT 11/23/20 22:03 IMPRESSION: No definite acute abnormality. Continued thickening of the wall of the distal esophagus, also present previously. Endoscopy recommended. Common bile duct is dilated but stable. Correlate with liver function tests. Nonobstructing left renal stone. Electronically Signed: Calvin Nicolas MD at 23:28 EDT , Service support , Assessment & Plan Assessment/Plan (1) Acute pyelonephritis: (2) Odynophagia: (3) Toe pain: QUALIFIERS: Laterality: right Qualified Code(s): M79.674 - Pain in right toe(s) (4) Low back pain: QUALIFIERS: Back pain laterality: midline Chronicity: chronic Sciatica presence: without sciatica Qualified Code(s): M54.5 - Low back pain; G89.29 - Other chronic pain PLAN: Acute right side pyelonephritis Review of medical department labs showed leukocytosis and abnormal urinalysis. CT of abdomen and pelvis showed nonobstructing left kidney stone and not right. Received ceftriaxone at emergency department and continued. Review of old records shows that urine culture on 12/03/2019 was positive for E. coli. E. coli was pansensitive and was sensitive to ceftriaxone. Pain control with Dilaudid as needed. Normal saline infusion ordered. By protocol and antiemetics in place Odynophagia Abdomen pelvis CT with contrast thickening the wall of distal esophagus at present previously. Endoscopy was recommended by radiology. Patient symptoms of been going on for over a year. Discussed with patient. Patient follow with PCP. Toe pain Secondary to recent fall. Pain control. Reports that last tetanus shot was about 6 years ago. Low back pain Chronic Hypertension continue. Multi Select Codes Visit Charges Visit Charges: 27276 Init Hosp L3
[2020-11-24] VITALS (8 sets, daily range): BP systolic 108–152; BP diastolic 73–93; PULSE 80–98; RESP 16–20; TEMP 35.9–36.7; O2SAT 94–100; BMI 32.5
[2020-11-24] MEDS: Albuterol 2.5 MG/3 ML VIAL.NEB. INHALATION ×3 (00:56→13:12)
[2020-11-24] MEDS: 0.9% Normal Saline 1,000 ML 75 ML IV ×2 (01:03→14:24)
[2020-11-24] MEDS: 0.9% Saline Lock 10 ML Syringe IV ×3 (04:14→14:31)
[2020-11-24] MEDS: HYDROmorphone 0.5 MG/0.5 ML SYRINGE IV (04:14)
--- NOTE | 2020-11-24 06:48 | RAD_ITS ---
STUDY: X-RAY - RIGHT FOOT CLINICAL: Female, 55 years old. R foot, big toe injury TECHNIQUE: 3 view(s) of the foot. COMPARISON: None. FINDINGS: An acute horizontal fracture is present across the proximal shaft of the distal phalanx of the great toe with mild cortical offset. The surrounding soft tissues are swollen. Normal talus, calcaneus, and tarsal bones. Normal visualized subtalar, talonavicular, calcaneocuboid, tarsal and tarsometatarsal articulations. Normal metatarsi. Normal metatarsophalangeal joint of the great toe. Normal tibial and fibular sesamoid bones. Normal interphalangeal joint of the great toe. Normal phalanges of the great toe. Normal second through fifth metatarsophalangeal joints. Normal interphalangeal joints and phalanges of the lesser toes. RAD/Foot min 3 Views IMPRESSION: 1. An acute horizontal fracture is present across the proximal shaft of the distal phalanx of the great toe with mild cortical offset. The surrounding soft tissues are swollen. Electronically Signed: Javon Neumann MD at 10:28 EDT , Service support ,
[2020-11-24] MEDS: Gabapentin 300 MG Capsule PO ×2 (06:51→14:25)
[2020-11-24 07:01] LABS: Absolute Lymphocyte Count 2.46 X10^3/uL (0.83-4.51); Absolute Neutrophil Count 11.7 X10^3/uL (2.0-7.7); Basophil# 0.06 X10^3/uL; Basophil% 0.4 % (0-1); Eosinophil# 0.29 X10^3/uL; Eosinophils% 1.8 % (0-5); Hematocrit 40.2 % (37-47); Lymphocyte # 2.46 X10^3/ul (0.83-4.51); Lymphocyte % 15.6 % (19-41); Mean Corp Hgb Conc 29.9 g/dL (32-36); Mean Corpuscular Hgb 26.6 pg (27.0-32.0); Mean Corpuscular Volume 89.1 fL (81-99); Mean Platelet Vol. 8.9 fl (6.2-12.0); Monocyte# 1.17 X10^3/uL; Monocyte% 7.4 % (0-10); NRBC Flagged by Analyzer 0 % (0-5); Neutrophil # 11.65 X10^3/uL (2.7-7.7); Neutrophil % 74.2 % (47-70); Platelet Count 609 K/mm3 (150-450); RBC Distribution Width CV 13.9 % (11.6-14.6); RBC Distribution Width SD 45.2 fl (35.1-43.9); Red Blood Count 4.51 M/mm3 (4.2-5.4); White Blood Count 15.7 K/mm3 (4.4-11.0)
[2020-11-24 07:42] LABS: Anion Gap 4 (5-15); BUN 13 mg/dL (7-18); BUN/Creat Ratio 15.6 RATIO (10-20); Calcium,Total 8.6 mg/dL (8.5-10.1); Chloride 102 mmol/L (98-107); Creatinine, Serum 0.83 mg/dL (0.55-1.02); EST Glomerular Filtration Rate 76 mL/min (>60); Est Glom Filt Rate - Afr Amer 92 mL/min (>60); Estimated Creatinine Clearance 69.72 ml/min; Glucose 124 mg/dL (74-106); Potassium 3.5 mmol/L (3.5-5.1); Sodium Level 137 mmol/L (136-145)
[2020-11-24] MEDS: Ketorolac 15 MG/ML Vial IV ×2 (08:33→14:26)
[2020-11-24] MEDS: oxyCODONE 5 MG Tablet 10 MG PO ×2 (09:44→14:31)
[2020-11-24] MEDS: Ceftriaxone 1 GM/50 ML BAG IV (09:45)
[2020-11-24] MEDS: Enoxaparin 40 MG/0.4 ML Syringe SC (09:46)
--- NOTE | 2020-11-24 10:18 | PN.HOSP_ITS ---
Subjective Subjective: Patient reports ongoing right-sided flank and right lower quadrant discomfort in addition to mild suprapubic discomfort as well as dysuria. She notes improved from ED presentation but still present, rated 5/10 currently. She also reports fall several days-weeks prior and notes R great toe bruising, pain still. Patient denies fevers, chills, nausea, emesis, abdominal pain, chest pain or dyspnea. Objective Data Objective Data Vital Signs: Vital Signs Temp Pulse Resp BP Pulse Ox 97.9 F 93 20 H 128/75 H 97 11/24/20 06:50 11/24/20 10:02 11/24/20 10:02 11/24/20 06:50 11/24/20 07:13 Oxygen Flow Rate (L/min) 2 Oxygen Delivery Method Nasal Cannula Weight: 195 lb 3.587 oz Body Mass Index (BMI) 32.5 Intake & Output: Intake and Output for Last 24 Hours 11/22/20 11/23/20 11/24/20 23:59 23:59 23:59 Intake Total 50 / 50 653.75 / 653.75 Balance 50 / 50 653.75 / 653.75 Lab / Micro Data Result Diagrams: 11/24/20 06:21 11/24/20 06:21 Labs: Laboratory Results - last 24 hr 11/23/20 11/23/20 11/23/20 20:55 20:55 21:15 WBC 19.0 H RBC 4.79 Hgb 13.0 Hct 42.2 MCV 88.1 MCH 27.1 MCHC 30.8 L RDW Std Deviation 44.7 H RDW Coeff of Madhu 13.8 Plt Count 645 H MPV 8.8 Immature Gran % (Auto) 0.600 Neut % (Auto) 77.6 H Lymph % (Auto) 14.1 L [place] % (Auto) 6.5 Eos % (Auto) 0.8 Baso % (Auto) 0.4 Absolute Neuts (auto) 14.8 H Absolute Lymphs (auto) 2.69 Nucleated RBC % 0 Sodium 133 L Potassium 3.9 Chloride 97 L Carbon Dioxide 31.0 Anion Gap 5 BUN 9 Creatinine 0.75 Estim Creat Clear Calc 77.16 Est GFR (MDRD) Af Amer 103 Est GFR (MDRD) Non-Af 86 BUN/Creatinine Ratio 12.0 Glucose 102 Calcium 9.0 Urine Color Yellow Urine Clarity Sl. Cloudy Urine pH 6.5 Ur Specific [place] 1.010 Urine Protein 15 H Urine Glucose (UA) Normal Urine Ketones Negative Urine Occult Blood 50 H Urine Nitrite Positive H Urine Bilirubin Negative Urine Urobilinogen Normal Ur Leukocyte Esterase 500 H Urine RBC 0 SEEN Urine WBC >100 SEEN Ur Squamous Epith Cells 0-5 SEEN Urine Bacteria 1+ Urine Mucus 0 SEEN 11/24/20 11/24/20 06:21 06:21 WBC 15.7 H RBC 4.51 Hgb 12.0 Hct 40.2 MCV 89.1 MCH 26.6 L MCHC 29.9 L RDW Std Deviation 45.2 H RDW Coeff of Madhu 13.9 Plt Count 609 H MPV 8.9 Immature Gran % (Auto) 0.600 Neut % (Auto) 74.2 H Lymph % (Auto) 15.6 L [place] % (Auto) 7.4 Eos % (Auto) 1.8 Baso % (Auto) 0.4 Absolute Neuts (auto) 11.7 H Absolute Lymphs (auto) 2.46 Nucleated RBC % 0 Sodium 137 Potassium 3.5 Chloride 102 Carbon Dioxide 31.0 Anion Gap 4 L BUN 13 Creatinine 0.83 Estim Creat Clear Calc 69.72 Est GFR (MDRD) Af Amer 92 Est GFR (MDRD) Non-Af 76 BUN/Creatinine Ratio 15.6 Glucose 124 H Calcium 8.6 Urine Color Urine Clarity Urine pH Ur Specific [place] Urine Protein Urine Glucose (UA) Urine Ketones Urine Occult Blood Urine Nitrite Urine Bilirubin Urine Urobilinogen Ur Leukocyte Esterase Urine RBC Urine WBC Ur Squamous Epith Cells Urine Bacteria Urine Mucus Radiography Diagnostic Testing: Radiology Impression Abdomen/Pelvis CT 11/23/20 22:03 IMPRESSION: No definite acute abnormality. Continued thickening of the wall of the distal esophagus, also present previously. Endoscopy recommended. Common bile duct is dilated but stable. Correlate with liver function tests. Nonobstructing left renal stone. Electronically Signed: Calvin Nicolas MD at 23:28 EDT , Service support , Physical Exam Narrative Physical Examination: General: awake, alert, oriented x 3 and cooperative, seated upright in the MS bed, appears uncomfortable. Skin: normal color, normal turgor, no icterus, no cyanosis except R great toe mild edema and staged ecchymoses. HEENT: AT/NC, EOMI, PERRLA, mildly dry MM. Lungs: Mildly diminished, > decrease BL bases, no rales, ronchi or wheezing. Heart: Regular rate and rhythm; no gallop, rub audible. Abdomen: soft, obese, mild discomfort right lower quadrant and with palpation of right flank with no rebound or guarding, difficult to assess distention given discomfort and habitus, distant normal bowel sounds. Extremities: no cyanosis, clubbing, or edema except noted right great toe mild swelling and ecchymoses as noted, see skin. Neurological: patient awake, alert, oriented as noted; cognitive function intact; pupils equally reactive to light and accomodation; cranial nerves II-XII grossly normal, moving all 4 extremities, no focal deficits, strength moderately global decrease secondary to acute presentation and complaints. Psychiatric: affect appears uncomfortable, no acute evidence of depressive or anxiety feelings. Assessment & Plan Assessment/Plan (1) Sepsis: QUALIFIERS: Sepsis type: sepsis due to unspecified organism Sepsis acute organ dysfunction status: unspecified Qualified Code(s): A41.9 - Sepsis, unspecified organism (2) Acute pyelonephritis: PLAN: The patient is a 55 y/o F w/ PMHx: HTN, HLD, Pulmonary HTN, Depression and Anxiety, Chronic COPD, History of EtOH abuse, Seizure disorder, Chronic anemia who presents to the [facility] ED on 11/23/20 with history of 3 days of worsening right flank discomfort as well as RLQ discomfort. 1. Acute Sepsis secondary to Acute Pyelonephritis: Patient admitted to [facility] upon ED evaluation remarkable, pending UCx, continue IVFs, monitor I/Os, continue IV Rocephin w/ transition as able pending sensitivities and speciation, renal fx appropriate therefore given ongoing pain complaints will plan on scheduled low dose toradol IV x 5 doses, PRN oral/IV pain regimen. 2. Hypertension, Uncontrolled: BP above goal during admission, not on regimen per current list, will add low dose norvasc and continue to monitor, adjust as needed, PRN IV hydralazine. 3. Hyperlipidemia: Not on regimen, defer to outpatient. 4. Chronic COPD: Not on regimen, HOB, IS, PRN albuterol. 5. Questionable Seizure disorder, Suspect likely with prior EtOH abuse: Will encourage continued sobriety, not on AED, encourage continued outpatient follow- up. 6. Obesity: Weight loss and lifestyle changes encouraged. 7. Chronic anemia, iron deficiency: Admission hemoglobin 13, repeat 12, hyd rated notably given #1, not on any iron supplementation, encourage continued outpatient follow-up. 8. DVT prophylaxis: SCDs, Lovenox. Visit Charges Inpatient E&M: 71444 Subs Hosp L2
--- NOTE | 2020-11-24 19:42 | NURSING ---
1907, PT LEFT AMA. IM NOT IN MUCH PAIN THEY GAVE ME THE OPTION OF STAYING LAST NIGHT FOR PAIN CONTROL.
== END 2020-11-24 19:08 | disposition left against medical advice (07) | DRG 872 ==
LOC: ED 20:46 → MS3 11-24 06:46
PROVIDERS: Admitting Provider Hospitalist; Emergency Provider Student in an Organized Health Care Education/Training Program; PCP Family Medicine; Visit Provider Family Medicine
DX: A41.9 Sepsis, unspecified organism (principal); N10 Acute pyelonephritis; E78.5 Hyperlipidemia, unspecified; I10 Essential (primary) hypertension; F32.9 Major depressive disorder, single episode, unspecified; F41.9 Anxiety disorder, unspecified; J44.9 Chronic obstructive pulmonary disease, unspecified; D50.9 Iron deficiency anemia, unspecified; F17.200 Nicotine dependence, unspecified, uncomplicated; F10.10 Alcohol abuse, uncomplicated; R13.10 Dysphagia, unspecified; M79.674 Pain in right toe(s); M54.5 Low back pain; E66.9 Obesity, unspecified; G47.30 Sleep apnea, unspecified; Z68.32 Body mass index [BMI] 32.0-32.9, adult; Z90.49 Acquired absence of other specified parts of digestive tract; Z53.29 Procedure and treatment not carried out because of patient's decision for other reasons; Z79.899 Other long term (current) drug therapy; Z86.718 Personal history of other venous thrombosis and embolism
CPT/HCPCS: 36415; 73630; 74176; 80048; 81001; 85025; 87086; 87088; 87186; 94640; 94667; 96361; 96365; 96366; 96372; 96375; 96376; 97802; 99285; J7030; J7050; A4216; J2405

== ENCOUNTER 2021-02-28 01:49 | Emergency (ER) | payer MEDICARE, MEDICAID, SELFPAY ==
[2020-11-24 00:16] VITALS: BMI 32.5
[2021-02-28 01:50] VITALS: BP 153/107; PULSE 104; RESP 16; TEMP 36.4; O2SAT 98; BMI 34.0
[2021-02-28 01:52] VITALS: BP 153/107; PULSE 104; RESP 16; TEMP 36.4; O2SAT 98
--- NOTE | 2021-02-28 02:12 | EX.ED.DYSGE1 ---
HPI History of Present Illness Chief Complaint: Abscess Informant: patient Narrative Narrative: Patient presents with sore areas under both armpits. This is been going on for about a week. The one under the left is already draining. No fevers chills sweats nausea vomiting or systemic symptoms. She did change deodorants recently and wonders if that may have contributed. However she has also had these before. Nothing really makes them better. Pressing on it hurts. PFSH PFSH Medical History Alcohol abuse Asthma Chronic pain COPD (chronic obstructive pulmonary disease) Dialysis patient Kidney stones Low back pain Pulmonary embolism Sleep apnea Smoker Stroke/cerebrovascular accident Substance abuse TIA (transient ischemic attack) Home Medications albuterol sulfate 2.5 mg INHALATION Q4H PRN #25 vial 10/20/17 [Rx Last Taken 05/18/18] albuterol sulfate [Ventolin HFA] 1 - 2 puff INHALATION PRN PRN 05/18/18 [History Last Taken 03/20/19] epinephrine 0.3 mg IM X1 #1 syringe 01/21/19 [Rx Last Taken Unknown] gabapentin 300 mg PO TID 03/21/19 [History Last Taken 03/19/19] cephalexin 500 mg PO Q8H 10 Days #30 cap 02/28/21 [Rx Last Taken Unknown] hydrocortisone 1 applic TOPICAL BID #1 ea 02/28/21 [Rx Last Taken Unknown] sulfamethoxazole-trimethoprim [Bactrim DS] 1 tab PO BID #20 tab 02/28/21 [Rx Last Taken Unknown] Allergy/AdvReac Type Severity Reaction Status Date / Time peanut Allergy Anaphylaxis Verified 02/28/21 01:52 tree nut [Tree Nut] Allergy Anaphylaxis Verified 02/28/21 01:52 Family History Other COPD (chronic obstructive pulmonary disease) Cancer Surgical History History of bilateral ligation of fallopian tubes History of cholecystectomy Social History Smoking Status: Current every day smoker tobacco type: cigarettes substance use type: marijuana ROS ROS ED Constitutional Constitutional ED: Denies chills, fever(s) or sweats ENT ENT ED: Denies sore throat Cardiovascular Cardiovascular: Denies chest pain or palpitations Respiratory/Chest Respiratory/Chest: Denies cough or dyspnea Gastrointestinal Gastrointestinal: Denies nausea or vomiting Musculoskeletal Musculoskeletal: Denies arthralgias or myalgias Integumentary Reports rash and other Details: See history of present illness Neurologic Neurologic: Denies paresthesias or weakness Endocrine Endocrinology: Denies polydipsia or polyuria Allergic/Immunologic Allergic/Immunologic ED: Denies urticaria EXAM Physical Exam Const Vital Signs: 02/28/21 01:50 02/28/21 01:52 Temperature 97.6 F L 97.6 F L Temperature Source Oral Oral Pulse Rate 104 H 104 H Respiratory Rate 16 16 Blood Pressure 153/107 H 153/107 H Blood Pressure Mean 122 122 Pulse Ox 98 98 Oxygen Delivery Method Room Air Room Air Positive well nourished and well developed General Appearance ED: well developed HEENT Negative for trauma or tenderness Eyes General Eye ED: Negative for pale conjunctiva or scleral icterus Chest Wall inspection of chest normal Resp normal respiratory effort GI normal to inspection, nondistended, normoactive bowel sounds and non-tender Palpation: soft Back/Spine no CVA tenderness Neuro oriented x3 Sensorium / Orientation: alert Psych mental status grossly normal Skin Skin Narrative: Patient has an erythematous area under the right armpit. There is no focal palpable abscess. There is no pointing. I do not feel lymph nodes. The area is mildly tender. Left side does appear to have about a one by one and half centimeter swollen area that is likely abscess. However, it has a broken down area in the center and is already draining fluid. Mild localized erythema to. Patient also does have dry scaly skin around her elbows and behind her knees. She does have a history of eczema as a child. These areas are not part of the axilla symptoms that she has. MDM MDM MDM Narrative Medical decision making narrative: I discussed doing anesthesia and drainage of these areas. Patient would prefer not to do that. I explained we can use antibiotics and warm compresses. The area in the left is already draining. She would like to do this instead. Patient also requested something for the rash around her elbows and knees. I will write for some hydrocortisone. Discharge Plan Triage Chief Complaint: Abscess ED Provider: Micah Farley Dx/Rx/DC Orders Clinical Impression: Axillary hidradenitis suppurativa, Eczema Instructions: ED Hidradenitis Suppurativa, Abx Prescriptions: New sulfamethoxazole-trimethoprim [Bactrim DS] 800-160 mg tablet 1 tab PO BID Qty: 20 RF: 0 cephalexin 500 mg capsule 500 mg PO Q8H 10 Days Qty: 30 RF: 0 hydrocortisone 1 % cream in packet 1 applic topical BID Qty: 1 RF: 0 No Action albuterol sulfate 2.5 MG/3 ML solution for nebulization 2.5 mg INHALATION Q4H PRN Qty: 25 RF: 0 albuterol sulfate [Ventolin HFA] 18 GM HFA aerosol inhaler 1 - 2 puff inhalation PRN PRN (Reason: Sob &/Or Wheezing) RF: 0 epinephrine 0.3 MG syringe 0.3 mg IM X1 Qty: 1 RF: 1 gabapentin 300 capsule 300 mg PO TID RF: 0 Primary Care Provider: Care Physician,No Primary Referrals: Edvin Oakley III, MD [STAFF PHYSICIAN] - 1 Week if not improving Disposition Disposition: Home, Self Care
[2021-02-28 02:25] VITALS: BP 150/94; PULSE 76; RESP 15; O2SAT 98
[2021-02-28] MEDS: Smz/Tmp Ds Tablet 1 TABLET PO (02:25)
[2021-02-28] MEDS: Cephalexin 250 MG Capsule 500 MG PO (02:25)
== END 2021-02-28 02:26 | disposition home or self-care (01) ==
PROVIDERS: Emergency Provider Emergency Medicine
DX: L73.2 Hidradenitis suppurativa (principal); L30.9 Dermatitis, unspecified; J44.9 Chronic obstructive pulmonary disease, unspecified; F17.210 Nicotine dependence, cigarettes, uncomplicated; Z86.73 Personal history of transient ischemic attack (TIA), and cerebral infarction without residual deficits
CPT/HCPCS: 99283

== ENCOUNTER 2021-07-08 14:51 | Emergency (ER) | payer MEDICARE, MEDICAID, SELFPAY ==
[2021-07-08 14:51] VITALS: BP 182/107; PULSE 101; RESP 18; TEMP 36.1; O2SAT 97; BMI 32.9
--- NOTE | 2021-07-08 15:04 | EDS_ITS ---
HPI HPI - Female History of Present Illness Chief Complaint: Complaint Narrative Narrative: Patient presents with right-sided back pain/kidney pain that she has had for the last few weeks to a month. She states she is had kidney infections in the past. Her urine has been cloudy. She was taking Azo with mild relief of her symptoms, but they have worsened. She has not seen a primary care physician. She denies any fevers or chills but complains of low back pain and kidney pain. She denies any hematuria, but states that she is having dysuria and urinary urgency. It feels as if she is not emptying her bladder completely. Past medical history includes COPD and asthma. She does not have menstrual periods as she is postmenopausal. She presents with problems urinating. PFSH PFS Medical History Alcohol abuse Asthma Chronic pain COPD (chronic obstructive pulmonary disease) Dialysis patient Kidney stones Low back pain Pulmonary embolism Sleep apnea Smoker Stroke/cerebrovascular accident Substance abuse TIA (transient ischemic attack) Home Medications albuterol sulfate 2.5 mg INHALATION Q4H PRN #25 vial 10/20/17 [Rx Last Taken 05/18/18] albuterol sulfate [Ventolin HFA] 1 - 2 puff INHALATION PRN PRN 05/18/18 [History Last Taken 03/20/19] epinephrine 0.3 mg IM X1 #1 syringe 01/21/19 [Rx Last Taken Unknown] gabapentin 300 mg PO TID 03/21/19 [History Last Taken 03/19/19] cephalexin 500 mg PO Q8H 10 Days #30 cap 02/28/21 [Rx Last Taken Unknown] hydrocortisone 1 applic TOPICAL BID #1 ea 02/28/21 [Rx Last Taken Unknown] sulfamethoxazole-trimethoprim [Bactrim DS] 1 tab PO BID #20 tab 02/28/21 [Rx Last Taken Unknown] sulfamethoxazole-trimethoprim [Bactrim DS] 1 tab PO BID #14 tab 07/08/21 [Rx Last Taken Unknown] Allergy/AdvReac Type Severity Reaction Status Date / Time peanut Allergy Anaphylaxis Verified 02/28/21 01:52 tree nut [Tree Nut] Allergy Anaphylaxis Verified 02/28/21 01:52 Family History Other COPD (chronic obstructive pulmonary disease) Cancer Surgical History History of bilateral ligation of fallopian tubes History of cholecystectomy Social History Smoking Status: Current every day smoker tobacco type: cigarettes substance use type: marijuana ROS ROS ED ROS Narrative Constitutional: No fever, no chills. HEENT: No sore throat. No neck pain. No loss of vision. No rhinorrhea. Cardiovascular: No chest pain. No palpitations. No pedal edema. Respiratory: No cough, no shortness of breath. Abdominal: No abdominal pain. No nausea. No vomiting. Genitourinary: Positive dysuria. No hematuria. Urinary urgency, feels as if no t emptying bladder completely. Right flank pain/kidney pain. Musculoskeletal: No myalgias. No arthralgias. Neurologic: No headaches. No dizziness. No lightheadedness. Skin: No rash. No change in color. Psychiatric: No depression. No anxiety. EXAM Physical Exam Narrative Exam Narrative: Afebrile. Vital signs noted. HEENT: Normocephalic. Atraumatic. PERRL, EOMI. Neck soft and supple. No point tenderness or step off. Cardiovascular: Regular rate and rhythm. No murmurs, rubs, or gallops appreciated. Respiratory: No tachypnea. Lungs clear to auscultation bilaterally. Gastrointestinal: Abdomen soft, nontender, with normoactive bowel sounds. No rebound or guarding. Neurological: Awake. Alert. Nonfocal, nonlateralizing. Skin: No rash. Normal color. No pallor. Musculoskeletal: No pedal edema. Full range of motion extremities. Right CVA tenderness to percussion. Const Vital Signs: 07/08/21 14:51 07/08/21 15:47 Temperature 96.9 F L 96.9 F L Temperature Source Temporal Temporal Pulse Rate 101 H 101 H Respiratory Rate 18 18 Blood Pressure 182/107 H 182/107 H Blood Pressure Mean 132 132 Pulse Ox 97 97 Oxygen Delivery Method Room Air Room Air MDM MDM MDM Narrative Medical decision making narrative: Urinalysis will be obtained along with urine culture. Her urinalysis shows leukocyte esterase at 500 with WBCs 5-10. However, given her CVA tenderness and positive nitrites, she will be treated as pyelonephritis. She is given a prescription for Bactrim DS to take for the next week, with her first dose given here in the emergency department. At this point in time, I feel she can be discharged safely home with follow-up. She will take [id number] analgesics. Return instructions to the emergency department were reviewed. Disposition is discharged home in stable condition. Lab Data Attestation: I reviewed the patient's lab results. Labs: Laboratory Results - last 24 hr 07/08/21 15:53 Urine Color Yellow Urine Clarity Sl. Cloudy Urine pH 6.5 Ur Specific [place] 1.010 Urine Protein 15 H Urine Glucose (UA) Normal Urine Ketones Negative Urine Occult Blood 50 H Urine Nitrite Positive H Urine Bilirubin Negative Urine Urobilinogen Normal Ur Leukocyte Esterase 500 H Urine RBC 0 SEEN Urine WBC 5-10 SEEN Ur Squamous Epith Cells 0-5 SEEN Urine Bacteria 3+ Urine Mucus 0 SEEN Discharge Plan Triage Chief Complaint: Complaint ED Provider: Tesfaye Vargas Dx/Rx/DC Orders Clinical Impression: Pyelonephritis Instructions: ED Pyelonephritis, Female (Adult) Prescriptions: New sulfamethoxazole-trimethoprim [Bactrim DS] 800-160 mg tablet 1 tab PO BID Qty: 14 RF: 0 No Action albuterol sulfate 2.5 MG/3 ML solution for nebulization 2.5 mg INHALATION Q4H PRN Qty: 25 RF: 0 albuterol sulfate [Ventolin HFA] 18 GM HFA aerosol inhaler 1 - 2 puff inhalation PRN PRN (Reason: Sob &/Or Wheezing) RF: 0 epinephrine 0.3 MG syringe 0.3 mg IM X1 Qty: 1 RF: 1 gabapentin 300 capsule 300 mg PO TID RF: 0 sulfamethoxazole-trimethoprim [Bactrim DS] 800-160 mg tablet 1 tab PO BID Qty: 20 RF: 0 cephalexin 500 mg capsule 500 mg PO Q8H 10 Days Qty: 30 RF: 0 hydrocortisone 1 % cream in packet 1 applic topical BID Qty: 1 RF: 0 Primary Care Provider: Care Physician,No Primary Referrals: Steven Tatum DO [STAFF PHYSICIAN] - 07/15/21 Care Physician,No Primary [Primary Care Provider] - Disposition Disposition: Home, Self Care
[2021-07-08 15:47] VITALS: BP 182/107; PULSE 101; RESP 18; TEMP 36.1; O2SAT 97
[2021-07-08 15:57] LABS: Mucous, Urine 0 SEEN /hpf (<or=2+)
[2021-07-08 16:01] LABS: Color, Urine Yellow (Yellow); Glucose, Dipstick Normal (Normal); Ketone-Dipstick Negative (Negative); Leukocyte Esterase-Dipstick 500 /ul (Negative); Nitrite-Dipstick Positive (Negative); Occult Blood-Urine 50 /ul (Negative); Protein-Dipstick 15 mg/dl (Negative); Urine Bilirubin Dipstick Negative (Negative); Urine Clarity Sl. Cloudy (Clear); Urine Urobilinogen Normal (Normal); Urine pH 6.5 (5.0 - 8.0)
[2021-07-08 16:08] LABS: Red Blood Cells-Urine 0 SEEN /hpf (0-5); White Blood Cells 5-10 SEEN /hpf (0-5)
[2021-07-08 16:09] LABS: Bacteria 3+ /hpf (None Seen); Squamous Epithelial Cells - UA 0-5 SEEN /hpf (5-10)
[2021-07-08] MEDS: Smz/Tmp Ds Tablet 1 TABLET PO (16:49)
[2021-07-08 16:50] VITALS: BP 149/73; PULSE 64; RESP 15; O2SAT 97
== END 2021-07-08 16:50 | disposition home or self-care (01) ==
PROVIDERS: Emergency Provider Emergency Medicine
DX: N12 Tubulo-interstitial nephritis, not specified as acute or chronic (principal); J44.9 Chronic obstructive pulmonary disease, unspecified; F17.210 Nicotine dependence, cigarettes, uncomplicated; Z79.899 Other long term (current) drug therapy; Z86.73 Personal history of transient ischemic attack (TIA), and cerebral infarction without residual deficits
CPT/HCPCS: 81001; 87077; 87086; 87088; 87186; 99283

== ENCOUNTER 2021-08-31 05:09 | Emergency (ER) | payer MEDICARE, MEDICAID, SELFPAY ==
[2021-08-31 05:10] VITALS: BP 146/78; PULSE 96; RESP 28; TEMP 37.2; O2SAT 96; BMI 33.3
[2021-08-31 05:15] VITALS: O2SAT 96
--- NOTE | 2021-08-31 05:18 | RAD_ITS ---
HISTORY: cough, increasing shortness of breath, history COPD EXAMINATION/TECHNIQUE: XR Chest 1 View AP view COMPARISON: AP chest x-ray from 06/03/19 FINDINGS: LINES/DEVICES: None. LUNGS: Persistent hyperexpanded lungs. No pulmonary edema. No focal airspace consolidation. No sizable pleural effusion. No pneumothorax detected. MEDIASTINUM AND CARDIOVASCULAR STRUCTURES: Heart normal size. Atherosclerotic calcifications along the aorta. BONES AND SOFT TISSUES: Skeletal degenerative changes. RAD/Chest 1 View (Portable) IMPRESSION: COPD and atherosclerotic disease. at 0614 Reported and signed by: Steven Razo MD Electronically Signed: Steven Razo MD at 6:13 EST ,
--- NOTE | 2021-08-31 05:20 | EDS_ITS ---
HPI History of Present Illness Chief Complaint: Shortness of Breath Informant: patient and spouse/S.O. Narrative Narrative: Patient's been having coughing shortness of breath and wheezing for about 2 weeks. She does use her nebulizer. This helps but not for long. She states she needs prednisone that normally helps her. She has not been on prednisone for a long time she states. She is coughing. She is bringing up some odonnell-green sputum. No blood. No chest pain. No nausea and vomiting. She still eating and drinking. She feels that this is her COPD. She has been trying to manage at home but does states it is not breaking. Nothing specifically makes it better or worse. [facility] Medical History Alcohol abuse Asthma Chronic pain COPD (chronic obstructive pulmonary disease) Dialysis patient Kidney stones Low back pain Pulmonary embolism Sleep apnea Smoker Stroke/cerebrovascular accident Substance abuse TIA (transient ischemic attack) Home Medications albuterol sulfate 2.5 mg INHALATION Q4H PRN #25 vial 10/20/17 [Rx Last Taken 05/18/18] albuterol sulfate [Ventolin HFA] 1 - 2 puff INHALATION PRN PRN 05/18/18 [History Last Taken 03/20/19] epinephrine 0.3 mg IM X1 #1 syringe 01/21/19 [Rx Last Taken Unknown] gabapentin 300 mg PO TID 03/21/19 [History Last Taken 03/19/19] doxycycline monohydrate 100 mg PO BID #20 cap 08/31/21 [Rx Last Taken Unknown] ipratropium-albuterol 3 ml INHALATION BID 08/31/21 [History Last Taken Unknown] prednisone 60 mg PO DAILY #15 tab 08/31/21 [Rx Last Taken Unknown] Allergy/AdvReac Type Severity Reaction Status Date / Time peanut Allergy Anaphylaxis Verified 08/31/21 05:12 tree nut [Tree Nut] Allergy Anaphylaxis Verified 08/31/21 05:12 Family History Other COPD (chronic obstructive pulmonary disease) Cancer Surgical History History of bilateral ligation of fallopian tubes History of cholecystectomy Social History Smoking Status: Current every day smoker tobacco type: cigarettes substance use type: marijuana ROS ROS ED Constitutional Constitutional ED: Denies chills or fever(s) Eyes Eyes: Denies change in vision ENT ENT ED: Denies rhinorrhea Cardiovascular Cardiovascular: Denies chest pain or palpitations Respiratory/Chest Respiratory/Chest: Reports cough, dyspnea and sputum Gastrointestinal Gastrointestinal: Denies abdominal pain, diarrhea, nausea or vomiting Genitourinary Genitourinary ED: Denies dysuria Musculoskeletal Musculoskeletal: Denies myalgias Integumentary Denies rash Neurologic Neurologic: Denies headache(s) Endocrine Endocrinology: Denies polydipsia or polyuria Hematologic/Lymphatic Hematologic/Lymphatic: Denies easy bleeding or easy bruising Allergic/Immunologic Allergic/Immunologic ED: Denies mouth swelling or urticaria EXAM Physical Exam Const Vital Signs: 08/31/21 05:10 08/31/21 05:15 08/31/21 05:32 Temperature 99.0 F Temperature Source Temporal Pulse Rate 96 89 Respiratory Rate 28 H 22 H Respiratory Effort Short of Breath Respiratory Depth Shallow Respiratory Pattern Tachypnea Normal Blood Pressure 146/78 H Blood Pressure Mean 100 Pulse Ox 96 Oxygen Delivery Method Room Air Room Air 08/31/21 05:33 Temperature Temperature Source Pulse Rate 90 Respiratory Rate 94 H Respiratory Effort Respiratory Depth Respiratory Pattern Normal Blood Pressure Blood Pressure Mean Pulse Ox Oxygen Delivery Method Positive well nourished and well developed General Appearance ED: well developed and NAD HEENT atraumatic Eyes General Eye ED: Negative for pale conjunctiva or scleral icterus Neck no JVD Resp No clear to auscultation bilaterally Resp Narrative: She has diffusely tight wheezing with poor air motion. Pain with a deep breath. Auscultation: wheezes; Negative for rales or rhonchi Cardio regular rate and regular rhythm GI non-tender and non-distended Palpation: soft Back/Spine no CVA tenderness Extremity normal to inspection General Extremety ED: Negative for edema or tenderness General Extremity: Negative for edema Neuro oriented x3 Sensorium / Orientation: alert Psych mental status grossly normal Skin Lesions: no lesions Rashes: no rashes MDM MDM MDM Narrative Medical decision making narrative: Patient's recheck. She looks much more comfortable. Just from the door she looks more relaxed and the breathing is easy. She still has expiratory wheezing but she is moving air much better. She states she feels better. She wants to go home. She states prednisone normally helps her. Because she has had a change in the quantity and color of her sputum, I will add antibiotics also. She states she has nebulizer and all the meds she needs for that. We discussed reasons to return. Radiography Diagnostic Testing: Clinical Impression(s) from Imaging Studies Chest X-Ray 08/31/21 05:18 IMPRESSION: COPD and atherosclerotic disease. at 0614 Reported and signed by: Steven Razo MD Electronically Signed: Steven Razo MD at 6:13 EST , Discharge Plan Triage Chief Complaint: Shortness of Breath ED Provider: Micah Farley Dx/Rx/DC Orders Clinical Impression: COPD with acute exacerbation Instructions: ED COPD Flare Prescriptions: New prednisone 20 MG tablet 60 mg PO DAILY Qty: 15 RF: 0 doxycycline monohydrate 100 MG capsule 100 mg PO BID Qty: 20 RF: 0 No Action albuterol sulfate 2.5 MG/3 ML solution for nebulization 2.5 mg INHALATION Q4H PRN Qty: 25 RF: 0 albuterol sulfate [Ventolin HFA] 18 GM HFA aerosol inhaler 1 - 2 puff inhalation PRN PRN (Reason: Sob &/Or Wheezing) RF: 0 epinephrine 0.3 MG syringe 0.3 mg IM X1 Qty: 1 RF: 1 gabapentin 300 capsule 300 mg PO TID RF: 0 ipratropium-albuterol 0.5 mg-3 mg(2.5 mg base)/3 mL solution for nebulization 3 ml inhalation BID RF: 0 Primary Care Provider: Care Physician,No Primary Referrals: Edvin Oakley III, MD [[facility]] - 3-5 Days Disposition Disposition: Home, Self Care
[2021-08-31] MEDS: predniSONE 20 MG Tablet 60 MG PO (05:22)
[2021-08-31] MEDS: Albuterol 2.5 MG/3 ML VIAL.NEB. INHALATION (05:29)
[2021-08-31] MEDS: Ipratropium/Albuterol Sulfate 3 ML AMPUL.NEB INHALATION (05:29)
[2021-08-31 05:32] VITALS: PULSE 89; RESP 22
[2021-08-31 05:33] VITALS: PULSE 90; RESP 94
[2021-08-31 06:41] VITALS: BP 121/93; PULSE 89; RESP 16; O2SAT 99
== END 2021-08-31 06:43 | disposition home or self-care (01) ==
PROVIDERS: Emergency Provider Emergency Medicine; Visit Provider Emergency Medicine
DX: J44.1 Chronic obstructive pulmonary disease with (acute) exacerbation (principal); F17.210 Nicotine dependence, cigarettes, uncomplicated; Z79.51 Long term (current) use of inhaled steroids; Z79.899 Other long term (current) drug therapy; Z86.73 Personal history of transient ischemic attack (TIA), and cerebral infarction without residual deficits
CPT/HCPCS: 71045; 94640; 99283

== ENCOUNTER 2022-09-09 02:49 | Emergency (ER) | payer MEDICARE, MEDICAID, SELFPAY ==
[2022-09-09 02:50] VITALS: BP 173/115; PULSE 115; RESP 20; TEMP 36.1; O2SAT 98; BMI 30.9
--- NOTE | 2022-09-09 03:11 | CT_ITS ---
EXAM: CT abdomen and pelvis with contrast. HISTORY: RLQ pain TECHNIQUE: CT Abdomen And Pelvis W/ Contrast Injection. A radiation dose optimization technique was used for this scan. COMPARISON: Noncontrast CT abdomen and pelvis November 23, 2020. LIMITATIONS: None. LOWER CHEST: Small hiatal hernia. Wall thickening of the distal esophagus as on the prior exam. LIVER: Normal. GALLBLADDER: Removed. BILE DUCTS: Mild biliary ductal dilatation is similar to the prior exam. PANCREAS: Normal. SPLEEN: Normal. ADRENAL GLANDS: Normal. KIDNEYS/URETERS/BLADDER: 2 mm nonobstructing left renal stone or vascular calcification. No hydronephrosis. AORTA: The abdominal aorta is normal in caliber. Significant stenoses of the bilateral common iliac and bilateral internal iliac arteries as well as the left external iliac artery. BOWEL/MESENTERY: Diverticula are without evidence of diverticulitis. No small bowel obstruction. APPENDIX: The appendix is mildly dilated, but this is stable since the prior exam. There is no adjacent inflammatory change. PERITONEUM: Normal. REPRODUCTIVE ORGANS: Normal. BONES/SOFT TISSUES: No acute fracture. OTHER: None. CONCLUSION: No evidence of acute appendicitis. Wall thickening of the distal esophagus suggestive of esophagitis. Electronically Signed: Azar Peck MD at 4:47 EST , CT/Abdomen/Pelvis W IV Cont ONLY IMPRESSION: undefined
--- NOTE | 2022-09-09 03:12 | ED.VIS.GI ---
HPI HPI - GI History of Present Illness Chief Complaint: Abd Pain Informant: patient Abdominal Pain/Flank Pain Onset: Weeks (1) Context: Gradual Onset Timing: Continuous Quality: Aching Location: RLQ and Right Flank Current Severity: Severe Maximum Severity: Severe Worsened by: Nothing Relieved by: Nothing Nausea/Vomiting/Emesis GI Symptom: Positive for Vomiting (On occasion chronically for over a year, separate from this abdominal pain and no worse) Diarrhea/Melena/Hematochezia GI Symptom: Negative for Diarrhea, Melena or Hematochezia Associated Symptoms Associated Symptoms: Negative for Dysuria, Frequency or Hematuria Narrative Narrative: Patient presenting for pain that started in her right abdomen and occasionally radiates into her right low back, no urinary symptoms. No fevers or chills. No changes in her appetite which is chronically poor. Also states separately, for the last 2 days she has had gradual onset and progressively worsening pain in right mandibular molar and now it is swollen. No spontaneous discharge or bleeding. Has not seen anybody yet for either of these problems. History of cholecystectomy no other abdominal surgeries. [facility] Medical History Alcohol abuse Asthma Chronic pain COPD (chronic obstructive pulmonary disease) Dialysis patient Kidney stones Low back pain Pulmonary embolism Sleep apnea Smoker Stroke/cerebrovascular accident Substance abuse TIA (transient ischemic attack) Home Medications albuterol sulfate 2.5 mg/3 mL (0.083 %) solution for nebulization 2.5 mg (3 mL) inhalation Q4H PRN #25 vials 10/20/17 [Rx Last Taken 05/18/18] albuterol sulfate 90 mcg/actuation aerosol inhaler (Ventolin HFA) 1 - 2 puff inhalation PRN PRN Sob &/Or Wheezing 05/18/18 [History Last Taken 03/20/19] epinephrine 0.3 mg/0.3 mL injection, auto-injector 0.3 mg (0.3 mL) IM X1 ##1 01/21/19 [Rx Last Taken Unknown] gabapentin 300 mg capsule 300 mg PO TID pain 03/21/19 [History Last Taken 03/19/19] doxycycline monohydrate 100 mg capsule 100 mg PO BID #20 caps 08/31/21 [Rx Last Taken Unknown] ipratropium 0.5 mg-albuterol 3 mg (2.5 mg base)/3 mL nebulization soln 3 ml inhalation BID 08/31/21 [History Last Taken Unknown] prednisone 20 mg tablet 60 mg PO DAILY #15 tabs 08/31/21 [Rx Last Taken Unknown] amoxicillin 500 mg tablet 500 mg PO TID #30 tabs 09/09/22 [Rx Last Taken Unknown] dicyclomine 10 mg capsule 20 mg PO Q6H PRN PRN abdominal discomfort #20 CAPSULES 09/09/22 [Rx Last Taken Unknown] Allergy/AdvReac Type Severity Reaction Status Date / Time peanut Allergy Anaphylaxis Verified 09/09/22 02:57 tree nut [Tree Nut] Allergy Anaphylaxis Verified 09/09/22 02:57 Family History Other COPD (chronic obstructive pulmonary disease) Cancer Surgical History History of bilateral ligation of fallopian tubes History of cholecystectomy Social History Smoking Status: Current every day smoker tobacco type: cigarettes substance use type: marijuana ROS ROS ED Constitutional Constitutional ED: Denies chills or fever(s) Eyes Eyes: Denies change in vision or diplopia ENT ENT ED: Reports as per HPI and dental pain; Denies rhinorrhea or sore throat Cardiovascular Cardiovascular: Denies chest pain or palpitations Respiratory/Chest Respiratory/Chest: Denies cough or dyspnea Gastrointestinal Gastrointestinal: Reports abdominal pain and vomiting; Denies diarrhea Genitourinary Genitourinary ED: Denies dysuria, hematuria or urinary frequency Musculoskeletal Musculoskeletal: Reports back pain; Denies neck pain Integumentary Denies abscess or rash Neurologic Neurologic: Denies headache(s), paresthesias or weakness Psychiatric Psychiatric: Denies anxiety or suicidal thoughts EXAM Physical Exam Const Vital Signs: 09/09/22 02:50 Temperature 96.9 F L Temperature Source Temporal Pulse Rate 115 H Respiratory Rate 20 H Blood Pressure 173/115 H Blood Pressure Mean 134 Pulse Ox 98 Oxygen Delivery Method Room Air Positive well nourished and well developed General Appearance ED: well developed and NAD HEENT Reports moist mucous membranes HEENT Narrative: Fillings present in the right mandibular molars, tender tooth #32 with associated small abscess without spontaneous drainage or bleeding or evidence of gingivitis. No trismus. No submental edema or tongue elevation. Swelling from the small abscess is visible externally along the angle of the mandible, this area is tender but not erythematous. Not able to discern definite fluctuance. normocephalic and atraumatic Eyes PERRL and EOMs intact bilaterally Neck full ROM, no lymphadenopathy and supple Resp normal respiratory effort and clear to auscultation bilaterally Cardio regular rate, regular rhythm and no murmurs GI non-distended GI Narrative: Tender in her right lower quadrant especially at McBurney's point. Mild tenderness throughout the rest of the right abdomen, but minimally tender in the right upper quadrant area. Negative Rovsing, negative obturator, positive psoas. Auscultation: normoactive bowel sounds Palpation: soft Back/Spine no CVA tenderness General Back: other FROM Extremity normal to inspection General Extremety ED: Negative for edema, pulses abnormal or tenderness General Extremity: Negative for edema or pulses abnormal Neuro oriented x3, CN's II-XII intact bilaterally and no sensory deficits noted Sensorium / Orientation: awake and alert Motor Exam: strength 5/5 throughout Psych Mood & Affect: anxious Skin no rashes or lesions noted and no wounds MDM MDM MDM Narrative Medical decision making narrative: With regards to the patient's dental abscess, I advised antibiotics and I recommended bedside needle aspiration. She refused a needle aspiration and just wants to do antibiotics understanding that the risk is only that of pain, and aspirating purulent material will make it likely get better quicker. She understands that. With regards to her right-sided abdominal pain, my main concern was appendicitis although certainly on the differential are mimics as well. Labs and a CT were obtained, she does have a leukocytosis of 18.7, however she always has a leukocytosis every time it seems to be checked, and this time she does not have a left shift or bandemia. The rest of her labs and urinalysis are normal, I reviewed the CT images and they are unremarkable. Radiologist is in agreement, no signs of appendicitis or any other acute abnormality except for the possibility of a left nephrolith nonobstructing. My interpretation of the CT agrees with that of the radiologist. At this time the cause of her right-sided abdominal pain is unknown, her LFTs are normal except for slight elevation of alkaline phosphatase which is nonspecific. Close outpatient follow-up advised, we will treat her with amoxicillin for the dental abscess. Lab Data Attestation: I reviewed the patient's lab results. Labs: Laboratory Results - last 24 hr 09/09/22 09/09/22 09/09/22 02:58 02:58 05:02 WBC 18.7 H RBC 5.29 Hgb 14.8 Hct 47.2 H MCV 89.2 MCH 28.0 MCHC 31.4 L RDW Std Deviation 44.9 H RDW Coeff of Madhu 13.7 Plt Count 580 H MPV 9.8 Immature Gran % (Auto) 0.500 Neut % (Auto) 67.1 Lymph % (Auto) 22.5 [place] % (Auto) 7.4 Eos % (Auto) 2.0 Baso % (Auto) 0.5 Absolute Neuts (auto) 12.6 H Absolute Lymphs (auto) 4.21 Nucleated RBC % 0 Sodium 137 Potassium 4.5 Chloride 101 Carbon Dioxide 29.0 Anion Gap 7 BUN 14 Creatinine 0.90 Estim Creat Clear Calc 60.27 Est GFR (MDRD) Af Amer 83 Est GFR (MDRD) Non-Af 69 BUN/Creatinine Ratio 15.5 Glucose 89 Calcium 9.6 Total Bilirubin 0.40 AST 30 ALT 22 Alkaline Phosphatase 128 H Total Protein 8.2 Albumin 3.5 Globulin 4.7 H Albumin/Globulin Ratio 0.7 L Urine Color Yellow Urine Clarity Clear Urine pH 7.0 Ur Specific [place] 1.010 Urine Protein Negative Urine Glucose (UA) Normal Urine Ketones Negative Urine Occult Blood 10 H Urine Nitrite Negative Urine Bilirubin Negative Urine Urobilinogen Normal Ur Leukocyte Esterase Negative Radiography Diagnostic Testing: Clinical Impression(s) from Imaging Studies Abdomen/Pelvis CT 09/09/22 03:11 IMPRESSION: undefined Discharge Plan Triage Chief Complaint: Abd Pain ED Provider: Reymundo Leos Dx/Rx/DC Orders Clinical Impression: Right-sided abdominal pain of unknown cause, Dental abscess Instructions: Abdominal Pain, Dental Abscess Prescriptions: New amoxicillin 500 MG tablet 500 mg PO TID Qty: 30 0RF dicyclomine 10 MG capsule 20 mg PO Q6H PRN PRN (Reason: abdominal discomfort) Qty: 20 0RF No Action albuterol sulfate 2.5 MG/3 ML solution for nebulization 2.5 mg INHALATION Q4H PRN Qty: 25 0RF Rx Instructions: Use q4 hours and PRN for wheezing albuterol sulfate [Ventolin HFA] 18 GM HFA aerosol inhaler 1 - 2 puff inhalation PRN PRN (Reason: Sob &/Or Wheezing) Label Comments: inhale 2 puffs by mouth every 4 hours as directed if needed for wheezing or shortness of breath epinephrine 0.3 MG syringe 0.3 mg IM X1 Qty: 1 1RF gabapentin 300 capsule 300 mg PO TID ipratropium-albuterol 0.5 mg-3 mg(2.5 mg base)/3 mL solution for nebulization 3 ml inhalation BID Label Comments: inhale contents of 1 vial in nebulizer as directed every 6 hours ... (REFER TO PRESCRIPTION NOTES). prednisone 20 MG tablet 60 mg PO DAILY Qty: 15 0RF doxycycline monohydrate 100 MG capsule 100 mg PO BID Qty: 20 0RF Primary Care Provider: Steven Welsh Referrals: Steven Welsh MD [Primary Care Provider] - 3-5 Days if not improving Dentist,Your [STAFF PHYSICIAN] - As soon as possible Disposition Disposition: Home, Self Care
[2022-09-09] MEDS: Morphine 4 MG/ML Syringe IV (03:32)
[2022-09-09] MEDS: 0.9% Normal Saline 1,000 ML 1000 ML IV (03:32)
[2022-09-09] MEDS: Ondansetron 4 MG/2 ML Vial IV (03:32)
[2022-09-09 03:47] LABS: Absolute Lymphocyte Count 4.21 X10^3/uL (0.83-4.51); Absolute Neutrophil Count 12.6 X10^3/uL (2.0-7.7); Basophil% 0.5 % (0-1); Eosinophil# 0.37 X10^3/uL; Hematocrit 47.2 % (37-47); Hemoglobin 14.8 g/dL (12.0-15.0); Lymphocyte # 4.21 X10^3/ul (0.83-4.51); Lymphocyte % 22.5 % (19-41); Mean Corp Hgb Conc 31.4 g/dL (32-36); Mean Corpuscular Volume 89.2 fL (81-99); Mean Platelet Vol. 9.8 fl (6.2-12.0); Monocyte# 1.38 X10^3/uL; Monocyte% 7.4 % (0-10); NRBC Flagged by Analyzer 0 % (0-5); Neutrophil # 12.56 X10^3/uL (2.7-7.7); Neutrophil % 67.1 % (47-70); Platelet Count 580 K/mm3 (150-450); RBC Distribution Width CV 13.7 % (11.6-14.6); RBC Distribution Width SD 44.9 fl (35.1-43.9); Red Blood Count 5.29 M/mm3 (4.2-5.4); White Blood Count 18.7 K/mm3 (4.4-11.0)
[2022-09-09 04:08] LABS: ALB/GLOB Ratio 0.7 RATIO (0.9-2.4); AST(SGOT) 30 U/L (15-37); Alanine Aminotransfer ALT/SGPT 22 U/L (13-56); Albumin, Serum 3.5 g/dL (3.2-5.0); Alkaline Phosphatase 128 U/L (45-117); Anion Gap 7 (5-15); BUN 14 mg/dL (7-18); BUN/Creat Ratio 15.5 RATIO (10-20); Calcium,Total 9.6 mg/dL (8.5-10.1); Chloride 101 mmol/L (98-107); EST Glomerular Filtration Rate 69 mL/min (>60); Est Glom Filt Rate - Afr Amer 83 mL/min (>60); Estimated Creatinine Clearance 60.27 ml/min; Globulin 4.7 g/dL (2.2-4.2); Glucose 89 mg/dL (74-106); Potassium 4.5 mmol/L (3.5-5.1); Protein, Total 8.2 g/dL (6.4-8.2); Sodium Level 137 mmol/L (136-145)
[2022-09-09 05:14] LABS: Bacteria 0 SEEN /hpf (None Seen); Mucous, Urine 0 SEEN /hpf (<or=2+); Red Blood Cells-Urine 0 SEEN /hpf (0-5); Squamous Epithelial Cells - UA 0 SEEN /hpf (5-10); White Blood Cells 0 SEEN /hpf (0-5)
[2022-09-09 05:15] LABS: Color, Urine Yellow (Yellow); Glucose, Dipstick Normal (Normal); Ketone-Dipstick Negative (Negative); Leukocyte Esterase-Dipstick Negative /ul (Negative); Nitrite-Dipstick Negative (Negative); Occult Blood-Urine 10 /ul (Negative); Protein-Dipstick Negative (Negative); Urine Bilirubin Dipstick Negative (Negative); Urine Clarity Clear (Clear); Urine Urobilinogen Normal (Normal)
[2022-09-09 05:58] VITALS: BP 156/87; PULSE 75; RESP 20; O2SAT 96
== END 2022-09-09 05:59 | disposition home or self-care (01) ==
PROVIDERS: Emergency Provider Emergency Medicine; PCP Family Medicine; Visit Provider Emergency Medicine
DX: K04.7 Periapical abscess without sinus (principal); Z99.2 Dependence on renal dialysis; J44.9 Chronic obstructive pulmonary disease, unspecified; F12.99 Cannabis use, unspecified with unspecified cannabis-induced disorder; R10.31 Right lower quadrant pain; R11.10 Vomiting, unspecified; M54.59 Other low back pain; G89.29 Other chronic pain; G47.30 Sleep apnea, unspecified; F10.10 Alcohol abuse, uncomplicated; F17.210 Nicotine dependence, cigarettes, uncomplicated; Z86.73 Personal history of transient ischemic attack (TIA), and cerebral infarction without residual deficits; Z79.899 Other long term (current) drug therapy; Z79.51 Long term (current) use of inhaled steroids; Z79.52 Long term (current) use of systemic steroids; Z86.711 Personal history of pulmonary embolism
CPT/HCPCS: 74177; 80053; 81001; 85025; 96361; 96374; 96375; 99285; J7030; Q9967; A4216; J2405

== ENCOUNTER 2022-10-11 20:40 | Emergency (ER) | payer MEDICARE, MEDICAID, SELFPAY ==
[2022-10-11 20:41] VITALS: BP 163/113; PULSE 94; RESP 15; TEMP 36.5; O2SAT 99
--- NOTE | 2022-10-11 20:48 | RAD_ITS ---
INDICATION: INJURY EXAMINATION/TECHNIQUE: X-RAY - RIGHT XR foot Min 3 Views COMPARISON: Right ankle radiographs same day and right foot radiographs 11/24/2020. FINDINGS: 3 views of the right foot. Suggestion of subtle cortical irregularity of the anterior process of the calcaneus. No other acute osseous abnormality is appreciated. Achilles enthesophyte. RAD/Foot min 3 Views IMPRESSION: Likely lateral calcaneus fracture, better appreciated on ankle images same day. This may be better characterized by dedicated with foot and ankle CT as indicated. Electronically Signed: Alejo Gibson MD at 22:52 EDT ,
--- NOTE | 2022-10-11 21:20 | RAD_ITS ---
INDICATION: INJURY EXAMINATION/TECHNIQUE: X-RAY - RIGHT XR Ankle Min 3 Views COMPARISON: Right foot radiographs 11/24/2020. FINDINGS: 3 views of the right ankle. Crescentic ossific focus off the lateral aspect of the midfoot/hindfoot, seen on AP image only, suggesting fracture of uncertain origin, possibly peroneal trochlea of the calcaneus or anterior process of the calcaneus. Associated lateral inframalleolar soft tissue swelling. No other acute osseous abnormality is appreciated. Achilles enthesophyte. RAD/Ankle min 3 Views IMPRESSION: Likely lateral calcaneus fracture as described above. This may be better characterized by dedicated with foot and ankle CT as indicated. Electronically Signed: Alejo Gibson MD at 22:50 EDT ,
[2022-10-11 22:03] VITALS: BMI 30.5
[2022-10-11] MEDS: Morphine 4 MG/ML Syringe 6 MG IM (22:27)
[2022-10-11] MEDS: Ondansetron ODT 4 MG Tablet PO (22:27)
--- NOTE | 2022-10-11 23:15 | CT_ITS ---
INDICATION: abnormal x-ray EXAMINATION/TECHNIQUE: X-RAY - RIGHT CT Lower Extremity W/O Contrast Injection COMPARISON: Comparison foot and ankle radiographs same day. FINDINGS: Noncontrast serial CT axial images through the foot with coronal and sagittal reformatted series. Again is noted comminuted displaced fracture of the of the anterior process of the calcaneus seen on radiographs earlier same day. This is best appreciated on coronal series. Heterogeneous irregular serpiginous appearing sclerosis and lucency of the talar dome, which appears most consistent with AVN/prior bone infarct. Similar changes of the distal tibia as well as posterior calcaneus. CT/Extremity Lower without Contra IMPRESSION: Comminuted displaced fracture of the anterior process of the calcaneus. 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 Similar, less prominent changes of the distal tibia as well as posterior calcaneus. Electronically Signed: Alejo Gibson MD at 0:22 EDT ,
[2022-10-12 00:15] VITALS: BP 143/84; PULSE 85; RESP 15; O2SAT 98
--- NOTE | 2022-10-12 01:28 | EDS_ITS ---
HPI History of Present Illness Chief Complaint: Lower Extremity Injury Narrative Narrative: Patient is a 57-year-old female with past medical history of hypertension hyperlipidemia who presents with complaint of foot/ankle pain after an accidental fall. Patient states around 6 or 7 PM this evening she was walking when she missed a step and fell rolling her right ankle inward. She denies striking her head any loss of consciousness or bleeding disorder or blood thinner use. She states that since that time she has had diffuse swelling and pain and difficulty ambulating and with concern for fracture comes in for evaluation. [facility] Medical History (Updated 10/12/22 @ 22:[address] Virgilio Veronica, DO) Alcohol abuse Asthma Chronic pain COPD (chronic obstructive pulmonary disease) Kidney stones Pulmonary embolism Sleep apnea Smoker Stroke/cerebrovascular accident Substance abuse TIA (transient ischemic attack) Home Medications albuterol sulfate 2.5 mg/3 mL (0.083 %) solution for nebulization 2.5 mg (3 mL) inhalation Q4H PRN #25 vials 10/20/17 [Rx Last Taken 05/18/18] albuterol sulfate 90 mcg/actuation aerosol inhaler (Ventolin HFA) 1 - 2 puff inhalation PRN PRN Sob &/Or Wheezing 05/18/18 [History Last Taken 03/20/19] epinephrine 0.3 mg/0.3 mL injection, auto-injector 0.3 mg (0.3 mL) IM X1 ##1 01/21/19 [Rx Last Taken Unknown] gabapentin 300 mg capsule 300 mg PO TID pain 03/21/19 [History Last Taken 03/19/19] doxycycline monohydrate 100 mg capsule 100 mg PO BID #20 caps 08/31/21 [Rx Last Taken Unknown] ipratropium 0.5 mg-albuterol 3 mg (2.5 mg base)/3 mL nebulization soln 3 ml inhalation BID 08/31/21 [History Last Taken Unknown] prednisone 20 mg tablet 60 mg PO DAILY #15 tabs 08/31/21 [Rx Last Taken Unknown] amoxicillin 500 mg tablet 500 mg PO TID #30 tabs 09/09/22 [Rx Last Taken Unknown] dicyclomine 10 mg capsule 20 mg PO Q6H PRN PRN abdominal discomfort #20 CAPSULES 09/09/22 [Rx Last Taken Unknown] oxycodone-acetaminophen 5 mg-325 mg tablet (Endocet) 1 tab PO Q6H PRN pain 3 days #12 tabs 10/12/22 [Rx Last Taken Unknown] Allergy/AdvReac Type Severity Reaction Status Date / Time peanut Allergy Anaphylaxis Verified 10/11/22 20:44 tree nut [Tree Nut] Allergy Anaphylaxis Verified 10/11/22 20:44 Family History (Updated 10/12/22 @ 00:[address] Josy Gallego MD) Mother COPD (chronic obstructive pulmonary disease) Hypertension Father Epilepsy Surgical History History of bilateral ligation of fallopian tubes History of cholecystectomy Social History (Updated 10/12/22 @ 00:[address] Josy Gallego MD) household members: none Smoking Status: Current every day smoker tobacco type: cigarettes alcohol intake: former substance use type: marijuana ROS ROS ED Constitutional Constitutional ED: Denies chills or fever(s) Eyes Eyes: Denies change in vision ENT ENT ED: Denies sore throat Cardiovascular Cardiovascular: Denies chest pain Respiratory/Chest Respiratory/Chest: Denies cough or dyspnea Gastrointestinal Gastrointestinal: Denies abdominal pain, diarrhea, nausea or vomiting Genitourinary Genitourinary ED: Denies dysuria Musculoskeletal Musculoskeletal: Reports arthralgias and other Details: Positive right foot and ankle pain ; Denies back pain or neck pain Integumentary Denies Abrasions or rash Neurologic Neurologic: Denies headache(s) or paresthesias Hematologic/Lymphatic Hematologic/Lymphatic: Denies easy bleeding or easy bruising EXAM Physical Exam Const Vital Signs: 10/12/22 00:15 Pulse Rate 85 Respiratory Rate 15 Blood Pressure 143/84 H Blood Pressure Mean 103 Pulse Ox 98 Oxygen Delivery Method Room Air Positive well nourished and well developed General Appearance ED: well developed HEENT HEENT Narrative: Normocephalic atraumatic Eyes PERRL and EOMs intact bilaterally Neck supple Neck Narrative: No bony deformity or step-off of the cervical spine no midline pain on palpation Resp normal respiratory effort and clear to auscultation bilaterally Cardio regular rate and regular rhythm Extremity Extremity Narrative: Patient has soft tissue swelling to the right ankle that extends into the dorsum of the foot the swelling is located mainly over the lateral malleolus. There is pain on palpation over top of the right lateral malleolus and over top the posterior calcaneal. There is no obvious bony deformity or joint effusion. Achilles tendon is intact and ankle ligaments are stable. Remainder of the exam is normal Neuro oriented x3 and CN's II-XII intact bilaterally Sensorium / Orientation: alert Psych mental status grossly normal Skin no rashes or lesions noted MDM MDM MDM Narrative Medical decision making narrative: Patient presented to the ER after mechanical fall and did not strike her head or have loss of consciousness or take blood thinners or reported history of bleeding disorder so there is no need for a cardiac or syncope work-up or head CT. Differential includes ligamentous sprain versus tear versus fracture. X- rays were obtained that questioned a calcaneal fracture and so a CT was added at radiologist request. This confirmed a calcaneal fracture which does correlate with her history and exam. The case was discussed with podiatry on-call and they feel at this time this should be a nonoperative fracture as patient is closed and neurovascular intact and they only recommend crutches and a walking boot and outpatient follow-up. This plan of care was discussed with the patient she is agreeable to it and therefore we discharged home with symptomatic care History & Record Review Discussion w/independent historian: Patient Radiography Diagnostic Testing: Clinical Impression(s) from Imaging Studies Foot X-Ray 10/11/22 20:48 IMPRESSION: Likely lateral calcaneus fracture, better appreciated on ankle images same day. This may be better characterized by dedicated with foot and ankle CT as indicated. Electronically Signed: Alejo Gibson MD at 22:52 EDT , Ankle X-Ray 10/11/22 21:20 IMPRESSION: Likely lateral calcaneus fracture as described above. This may be better characterized by dedicated with foot and ankle CT as indicated. Electronically Signed: Alejo Gibson MD at 22:50 EDT , Lower Extremity CT 10/11/22 23:15 IMPRESSION: Comminuted displaced fracture of the anterior process of the calcaneus. 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 Similar, less prominent changes of the distal tibia as well as posterior calcaneus. Electronically Signed: Alejo Gibson MD at 0:22 EDT , X-ray of the right ankle and foot as interpreted by the emergency medicine physician questions a calcaneal fracture with out acute dislocation or joint effusion or foreign body. Management Discussion w/another healthcare provider: [facility] Discharge Plan Triage Chief Complaint: Lower Extremity Injury ED Provider: Virgilio Veronica Dx/Rx/DC Orders Clinical Impression: Closed fracture of right calcaneus, HLD (hyperlipidemia), HTN (hypertension), Accidental fall Instructions: Calcaneus, ED Fracture, Foot Prescriptions: New oxycodone-acetaminophen [Endocet] 5-325 mg tablet 1 tab PO Q6H PRN (Reason: pain) 3 Days Qty: 12 0RF No Action albuterol sulfate 2.5 MG/3 ML solution for nebulization 2.5 mg INHALATION Q4H PRN Qty: 25 0RF Rx Instructions: Use q4 hours and PRN for wheezing albuterol sulfate [Ventolin HFA] 18 GM HFA aerosol inhaler 1 - 2 puff inhalation PRN PRN (Reason: Sob &/Or Wheezing) Label Comments: inhale 2 puffs by mouth every 4 hours as directed if needed for wheezing or shortness of breath epinephrine 0.3 MG syringe 0.3 mg IM X1 Qty: 1 1RF gabapentin 300 capsule 300 mg PO TID ipratropium-albuterol 0.5 mg-3 mg(2.5 mg base)/3 mL solution for nebulization 3 ml inhalation BID Label Comments: inhale contents of 1 vial in nebulizer as directed every 6 hours ... (REFER TO PRESCRIPTION NOTES). prednisone 20 MG tablet 60 mg PO DAILY Qty: 15 0RF doxycycline monohydrate 100 MG capsule 100 mg PO BID Qty: 20 0RF amoxicillin 500 MG tablet 500 mg PO TID Qty: 30 0RF dicyclomine 10 MG capsule 20 mg PO Q6H PRN PRN (Reason: abdominal discomfort) Qty: 20 0RF Primary Care Provider: Steven Welsh Referrals: Steven Welsh MD [Primary Care Provider] - Patel Fox DPM [Med Staff - Active Staff] - Activity Restrictions/Additional Instructions: Your imaging studies showed a fractured heel. Use your crutches to help with weightbearing and wear your walking boot for stabilization of the fracture. Follow-up with podiatry for repeat evaluation and return to the ER should you have any further concerns Disposition Disposition: Home, Self Care Discharge Date/Time: 10/12/22 01:55
== END 2022-10-12 01:55 | disposition home or self-care (01) ==
PROVIDERS: Emergency Provider Emergency Medicine; PCP Family Medicine; Visit Provider Emergency Medicine
DX: S92.021A Displaced fracture of anterior process of right calcaneus, initial encounter for closed fracture (principal); J44.9 Chronic obstructive pulmonary disease, unspecified; W10.9XXA Fall (on) (from) unspecified stairs and steps, initial encounter; Y93.01 Activity, walking, marching and hiking; I10 Essential (primary) hypertension; E78.5 Hyperlipidemia, unspecified; F17.210 Nicotine dependence, cigarettes, uncomplicated; Z79.899 Other long term (current) drug therapy; Z86.73 Personal history of transient ischemic attack (TIA), and cerebral infarction without residual deficits
CPT/HCPCS: 73610; 73630; 73700; 96372; 99284

== ENCOUNTER 2022-11-16 02:21 | Emergency (ER) | payer MEDICARE, MEDICAID, SELFPAY ==
[2022-11-16 02:22] VITALS: BP 152/62; PULSE 94; RESP 19; TEMP 36.1; O2SAT 95; BMI 31.3
[2022-11-16 02:24] VITALS: BP 152/62; PULSE 94; RESP 19; TEMP 36.1; O2SAT 95
--- NOTE | 2022-11-16 02:37 | RAD_ITS ---
INDICATION: chest pain EXAMINATION: Frontal view of the chest COMPARISON: Chest x-ray August 31, 2021. FINDINGS: Frontal view of the chest was obtained. The cardiac silhouette is not enlarged. No confluent airspace disease. No pneumothorax. No acute fracture identified. RAD/Chest 1 View (Portable) IMPRESSION: No acute pulmonary disease. Electronically Signed: Azar Peck MD at 3:48 EDT ,
--- NOTE | 2022-11-16 02:38 | ED.VIS.GI ---
HPI HPI - GI History of Present Illness Chief Complaint: Abd Pain Informant: patient Abdominal Pain/Flank Pain Onset: Days Context: Gradual Onset Timing: Continuous Quality: Aching Location: RUQ Current Severity: Mild Maximum Severity: Mild Worsened by: Nothing Relieved by: Nothing Nausea/Vomiting/Emesis GI Symptom: Negative for Nausea or Vomiting Diarrhea/Melena/Hematochezia GI Symptom: Negative for Diarrhea, Melena or Hematochezia Associated Symptoms Associated Symptoms: Negative for Dysuria, Frequency or Hematuria Narrative Narrative: 57-year-old female history of depression, COPD and esophagitis. Prior cholecystectomy. Since the last 3 days she has had epigastric and lower chest discomfort. Not associated with exertion or dyspnea. Also some mild right upper quadrant abdominal pain. She denies any nausea, vomiting or diarrhea. No fever or chills. No hemoptysis. No recent travel or surgery. No known cardiac history. Pain does not radiate to her neck, jaw, left arm or back. The chest pain but is constant for least 3 days. Prior similar symptoms: Yes Recent Illness/Hospitalization: No PFSH PFS Medical History Alcohol abuse Asthma Chronic pain COPD (chronic obstructive pulmonary disease) Kidney stones Pulmonary embolism Sleep apnea Smoker Stroke/cerebrovascular accident Substance abuse TIA (transient ischemic attack) Home Medications albuterol sulfate 2.5 mg/3 mL (0.083 %) solution for nebulization 2.5 mg (3 mL) inhalation Q4H PRN #25 vials 10/20/17 [Rx Last Taken 05/18/18] albuterol sulfate 90 mcg/actuation aerosol inhaler (Ventolin HFA) 1 - 2 puff inhalation PRN PRN Sob &/Or Wheezing 05/18/18 [History Last Taken 03/20/19] epinephrine 0.3 mg/0.3 mL injection, auto-injector 0.3 mg (0.3 mL) IM X1 ##1 01/21/19 [Rx Last Taken Unknown] gabapentin 300 mg capsule 300 mg PO TID pain 03/21/19 [History Last Taken 03/19/19] doxycycline monohydrate 100 mg capsule 100 mg PO BID #20 caps 08/31/21 [Rx Last Taken Unknown] ipratropium 0.5 mg-albuterol 3 mg (2.5 mg base)/3 mL nebulization soln 3 ml inhalation BID 08/31/21 [History Last Taken Unknown] prednisone 20 mg tablet 60 mg PO DAILY #15 tabs 08/31/21 [Rx Last Taken Unknown] amoxicillin 500 mg tablet 500 mg PO TID #30 tabs 09/09/22 [Rx Last Taken Unknown] dicyclomine 10 mg capsule 20 mg PO Q6H PRN PRN abdominal discomfort #20 CAPSULES 09/09/22 [Rx Last Taken Unknown] oxycodone-acetaminophen 5 mg-325 mg tablet (Endocet) 1 tab PO Q6H PRN pain 3 days #12 tabs 10/12/22 [Rx Last Taken Unknown] ondansetron 4 mg disintegrating tablet 4 mg PO Q6H PRN nausea and vomiting #7 tabs 11/16/22 [Rx Last Taken Unknown] pantoprazole 40 mg tablet,delayed release (Protonix) 40 mg PO BID 10 days #20 tabs 11/16/22 [Rx Last Taken Unknown] Allergy/AdvReac Type Severity Reaction Status Date / Time peanut Allergy Anaphylaxis Verified 11/16/22 02:27 tree nut [Tree Nut] Allergy Anaphylaxis Verified 11/16/22 02:27 Family History Mother COPD (chronic obstructive pulmonary disease) Hypertension Father Epilepsy Surgical History History of bilateral ligation of fallopian tubes History of cholecystectomy Social History household members: none Smoking Status: Current every day smoker tobacco type: cigarettes alcohol intake: former substance use type: marijuana ROS ROS ED ROS Narrative Lower chest and upper abdominal pain. Review of Systems ROS Unobtainable: Denies due to encephalopathy Constitutional Constitutional ED: Denies chills or fever(s) ENT ENT ED: Denies ear pain Cardiovascular Cardiovascular: Reports chest pain; Denies palpitations or racing heartbeat Respiratory/Chest Respiratory/Chest: Denies cough or dyspnea Gastrointestinal Gastrointestinal: Reports abdominal pain; Denies constipation, diarrhea, melena, nausea or vomiting Genitourinary Genitourinary ED: Denies dysuria or hematuria Musculoskeletal Musculoskeletal: Denies arthralgias, back pain, myalgias or neck pain Integumentary Denies abscess Neurologic Neurologic: Denies headache(s) Psychiatric Psychiatric: Denies anxiety Endocrine Endocrinology: Denies polydipsia Hematologic/Lymphatic Hematologic/Lymphatic: Denies easy bleeding Allergic/Immunologic Allergic/Immunologic ED: Denies mouth swelling EXAM Physical Exam Narrative Exam Narrative: Anxious middle-aged female. Vital signs are stable afebrile. Pulse ox 95% on room air no hypoxia. H EENT exam unremarkable. Moist weeks membranes. Neck nontender. No lymphadenopathy. No JVD. Back nontender. Lungs are clear to auscultation bilaterally. Heart regular rhythm rate about 90 no murmur. Chest wall has reproducible chest wall tenderness over the sternum and ribs. There is no crepitance or subcu air. No bruising or signs of trauma. Abdomen is soft, nondistended with normal bowel sounds without peritoneal signs. Mild epigastric tenderness. No hernia or mass. No distention. No pulsatile mass. No signs of trauma. Pelvic girdle intact. Moving all 4 extremities. Equal symmetrical radial pulses. Calves are nontender without edema. Neurologically she is awake and alert. Const Vital Signs: 11/16/22 02:22 11/16/22 02:24 11/16/22 03:14 Temperature 97 F L 97 F L Temperature Source Oral Oral Pulse Rate 94 94 Respiratory Rate 19 H 19 H Blood Pressure 152/62 H 152/62 H Blood Pressure Mean 92 92 Pulse Ox 95 95 Oxygen Delivery Method Room Air Room Air Room Air 11/16/22 06:38 11/16/22 08:16 Temperature 98.1 F Temperature Source Oral Pulse Rate 89 88 Respiratory Rate 17 16 Blood Pressure 161/84 H 143/81 H Blood Pressure Mean 109 101 Pulse Ox 95 98 Oxygen Delivery Method Room Air Room Air Positive well nourished and well developed; Negative for cachectic, contractures or unkempt General Appearance ED: well developed and NAD; Negative for unkempt, cachectic, contractures or pallor Nutritional Appearance: Negative for cachectic HEENT Reports moist mucous membranes; Denies dry mucous membranes normocephalic and atraumatic; Negative for trauma or tenderness Mouth ED: No dry mucous membranes Mouth: No dry mucous membranes Eyes PERRL and EOMs intact bilaterally General Eye ED: Negative for pale conjunctiva or scleral icterus Neck no lymphadenopathy, supple and no JVD General: Negative for tenderness Carotids: Negative for other Lymph Lymphatic: Negative for other Resp normal respiratory effort and clear to auscultation bilaterally Effort and Inspection: Negative for respiratory distress Auscultation: Negative for rales, rhonchi or wheezes Cardio regular rate, regular rhythm, S1 normal heart sound, S2 normal heart sound and no murmurs Rate: Negative for bradycardia or tachycardic Rhythm: Negative for abnormal rhythm GI non-distended and no masses; Negative for non-tender Inspection: Negative for abdominal distention Auscultation: normoactive bowel sounds; Negative for hyperactive bowel sounds or hypoactive bowel sounds Palpation: soft and tender; Negative for guarding, rigid, hepatomegaly, splenomegaly, hernia, mass, pulsatile mass or rebound tenderness present Back/Spine no CVA tenderness General Back: Negative for CVA tenderness Cervical Spine: Negative for cervical spine tenderness Thoracic Spine / Upper Back: Negative for thoracic spinal tenderness Lumbar Spine / Lower Back: Negative for lumbar spinal tenderness Coccyx: Negative for other Extremity full ROM General Extremety ED: Negative for edema or tenderness General Extremity: Negative for edema Neuro CN's II-XII intact bilaterally and moves all extremities Sensorium / Orientation: alert, oriented to person, oriented to place and oriented to time; Negative for orientation impaired, confused, lethargic or stuporous Motor Exam: strength 5/5 throughout Psych mental status grossly normal and thought process normal Appearance: Negative for unkempt Attitude: No agitated Mood & Affect: anxious and tearful; Negative for depressed Skin no wounds General Skin Exam: Negative for jaundice or pallor Lesions: no lesions Rashes: no rashes Trauma: Negative for abrasion Nails: Negative for discolored Image ED - Body Diagram Man: 1. Chest wall reproducible tenderness. 2. Epigastric tenderness. MDM MDM MDM Narrative Medical decision making narrative: 57-year-old female with chest and abdominal pain. History of esophagitis. She will undergo a cardiac and abdominal work-up. She has had multiple CAT scans in the past I do not think she needs one at this time. Labs, EKG will be obtained along with a chest x-ray. The chest pain appears to be reproducible chest wall pain. The abdominal pain could be gastritis or esophagitis versus other. Her gallbladder is out. Treated with Toradol for pain. Multiple repeat exams patient continually improved. She did have elevated white count but when you compare it to multiple prior CBCs she has had she often has significant elevated white counts. I did obtain a CT of her abdomen pelvis due to the white count and abdominal pain and it basically showed findings consistent with enteritis. She is feeling improved after the IV Toradol. Her abdomen is benign. Her cardiac work-up was unremarkable. She will be discharged home. Zofran for nausea. Protonix for her esophagitis and reflux. Follow-up with her primary care physician. Return if worse. History & Record Review Discussion w/independent historian: Patient Lab Data Attestation: I reviewed the patient's lab results. Lab results narrative: CBC shows a 29,000 white count. H&H is 16 and 50. Platelets of 531,000. Troponin normal at 7. Electrolytes unremarkable gap of 8. BUN and creatinine of 17 and 1. Glucose 122. Alk phos 131. Lipase normal at 29. Labs: Laboratory Results - last 24 hr 11/16/22 11/16/22 03:03 03:03 WBC 29.0 H RBC 5.61 H Hgb 16.0 H Hct 50.2 H MCV 89.5 MCH 28.5 MCHC 31.9 L RDW Std Deviation 46.5 H RDW Coeff of Madhu 14.3 Plt Count 531 H MPV 8.9 Immature Gran % (Auto) 0.600 Neut % (Auto) 84.8 H Lymph % (Auto) 6.6 L [place] % (Auto) 6.8 Eos % (Auto) 0.9 Baso % (Auto) 0.3 Absolute Neuts (auto) 24.6 H Absolute Lymphs (auto) 1.90 Nucleated RBC % 0 Diff Path Review May foll Platelet Estimate MOD INC Sodium 139 Potassium 3.7 Chloride 104 Carbon Dioxide 27.0 Anion Gap 8 BUN 17 Creatinine 1.07 H Estim Creat Clear Calc 50.70 Est GFR (MDRD) Af Amer 68 Est GFR (MDRD) Non-Af 56 L BUN/Creatinine Ratio 15.9 Glucose 122 H Calcium 9.9 Total Bilirubin 0.40 AST 22 ALT 19 Alkaline Phosphatase 131 H Troponin I High Sens 7 Total Protein 8.6 H Albumin 3.8 Globulin 4.8 H Albumin/Globulin Ratio 0.8 L Lipase 29 Radiography Chest X-Ray - ED: 1 View, Read by ED Physician, Heart, Lungs, Mediastinum, Bony Structures, No Acute Disease and Chronic Changes Diagnostic Testing: Clinical Impression(s) from Imaging Studies Chest X-Ray 11/16/22 02:37 IMPRESSION: No acute pulmonary disease. Electronically Signed: Azar Peck MD at 3:48 EDT , Abdomen/Pelvis CT 11/16/22 03:24 IMPRESSION: undefined Chest x-ray, portable, single view, interpreted by myself shows no acute abnormality. Normal cardiac silhouette. Normal lung siu. No. Fusion is. CAT scan is fluid-filled loops of bowel but clinically this is not a bowel obstruction nor does the radiologist believe it to be so. Also esophagitis seen on CAT scan which has been seen in the past. Rhythm Strip Rhythm Strip: Sinus Rhythm Rate: 92 Ectopy: None EKG Initial EKG: Attestation: I personally reviewed and interpreted this EKG as follows: Interpretation: Sinus Rhythm and No Acute Injury Pattern Comments: Sinus rhythm rate of 92 no acute signs of [place] or ischemia. Discharge Plan Triage Chief Complaint: Abd Pain ED Provider: Nixon Duke Dx/Rx/DC Orders Clinical Impression: Abdominal pain, Chest pain, History of esophagitis Instructions: Abdominal Pain, Esophagitis, ED Chest Pain, Noncardiac Prescriptions: New ondansetron 4 mg tablet,disintegrating 4 mg PO Q6H PRN (Reason: nausea and vomiting) Qty: 7 0RF pantoprazole [Protonix] 40 mg tablet,delayed release (DR/EC) 40 mg PO BID 10 Days Qty: 20 0RF No Action albuterol sulfate 2.5 MG/3 ML solution for nebulization 2.5 mg INHALATION Q4H PRN Qty: 25 0RF Rx Instructions: Use q4 hours and PRN for wheezing albuterol sulfate [Ventolin HFA] 18 GM HFA aerosol inhaler 1 - 2 puff inhalation PRN PRN (Reason: Sob &/Or Wheezing) Label Comments: inhale 2 puffs by mouth every 4 hours as directed if needed for wheezing or shortness of breath epinephrine 0.3 MG syringe 0.3 mg IM X1 Qty: 1 1RF gabapentin 300 capsule 300 mg PO TID ipratropium-albuterol 0.5 mg-3 mg(2.5 mg base)/3 mL solution for nebulization 3 ml inhalation BID Label Comments: inhale contents of 1 vial in nebulizer as directed every 6 hours ... (REFER TO PRESCRIPTION NOTES). prednisone 20 MG tablet 60 mg PO DAILY Qty: 15 0RF doxycycline monohydrate 100 MG capsule 100 mg PO BID Qty: 20 0RF amoxicillin 500 MG tablet 500 mg PO TID Qty: 30 0RF dicyclomine 10 MG capsule 20 mg PO Q6H PRN PRN (Reason: abdominal discomfort) Qty: 20 0RF oxycodone-acetaminophen [Endocet] 5-325 mg tablet 1 tab PO Q6H PRN (Reason: pain) 3 Days Qty: 12 0RF Primary Care Provider: Steven Welsh Referrals: Steven Welsh MD [Primary Care Provider] - 3-5 Days Activity Restrictions/Additional Instructions: Plenty of fluids and rest. Zofran for nausea. Protonix for your reflux and your esophagitis. 40 mg a day for the next 2 weeks. Follow-up with your doctor to ensure you are improving. Disposition Disposition: Home, Self Care
[2022-11-16] MEDS: Ketorolac 30 MG/ML Syringe IV (02:59)
[2022-11-16 03:09] LABS: Absolute Neutrophil Count 24.6 X10^3/uL (2.0-7.7); Basophil% 0.3 % (0-1); Eosinophil# 0.27 X10^3/uL; Eosinophils% 0.9 % (0-5); Hematocrit 50.2 % (37-47); Lymphocyte % 6.6 % (19-41); Mean Corp Hgb Conc 31.9 g/dL (32-36); Mean Corpuscular Hgb 28.5 pg (27.0-32.0); Mean Corpuscular Volume 89.5 fL (81-99); Mean Platelet Vol. 8.9 fl (6.2-12.0); Monocyte# 1.96 X10^3/uL; Monocyte% 6.8 % (0-10); NRBC Flagged by Analyzer 0 % (0-5); Neutrophil # 24.58 X10^3/uL (2.7-7.7); Neutrophil % 84.8 % (47-70); POSITIVE DIFFERENTIAL YES; Platelet Count 531 K/mm3 (150-450); RBC Distribution Width CV 14.3 % (11.6-14.6); RBC Distribution Width SD 46.5 fl (35.1-43.9); Red Blood Count 5.61 M/mm3 (4.2-5.4)
[2022-11-16 03:13] LABS: Differential Indicated SCAN CRITERIA MET
[2022-11-16 03:17] LABS: Platelet Estimate MOD INC (ADEQ)
--- NOTE | 2022-11-16 03:24 | CT_ITS ---
EXAM: CT abdomen and pelvis with contrast. HISTORY: abd pain TECHNIQUE: CT Abdomen And Pelvis W/ Contrast Injection. A radiation dose optimization technique was used for this scan. COMPARISON: CT abdomen and pelvis September 09, 2022. LIMITATIONS: None. LOWER CHEST: Small hiatal hernia. Wall thickening of the distal esophagus similar to the prior exam. LIVER: Normal. GALLBLADDER: Removed. BILE DUCTS: Mild dilatation of the common duct on the prior exam has decreased. PANCREAS: Normal. SPLEEN: Normal. ADRENAL GLANDS: Normal. KIDNEYS/URETERS/BLADDER: 2 mm nonobstructing left renal stone or vascular calcification. No hydronephrosis. AORTA: The abdominal aorta is normal in caliber. Significant stenoses of the bilateral common iliac and bilateral internal iliac arteries as well as the left external iliac artery as before. BOWEL/MESENTERY: Diverticula are without evidence of diverticulitis. Fluid is present throughout the lumen of the colon. Multiple fluid-filled loops of small bowel are identified, including distal small bowel loops which are upper normal in caliber. No single defined zone of transition to suggest small bowel obstruction. The fluid-filled small bowel is increased compared to the prior study. No small bowel wall thickening. APPENDIX: The appendix is fluid-filled and upper normal in caliber, but this is similar to the prior exam. There is no adjacent inflammatory change. PERITONEUM: Normal. REPRODUCTIVE ORGANS: Normal. BONES/SOFT TISSUES: No acute fracture. OTHER: None. CONCLUSION: Fluid-filled loops of distal small bowel, upper normal in caliber. Findings suggestive of mild enteritis. Early small bowel obstruction is unlikely, but is a consideration in the appropriate clinical setting. Wall thickening of the distal esophagus suggestive of esophagitis, similar to the prior exam. Electronically Signed: Azar Peck MD at 4:26 EDT , CT/Abdomen/Pelvis W IV Cont ONLY IMPRESSION: undefined
[2022-11-16 03:46] LABS: ALB/GLOB Ratio 0.8 RATIO (0.9-2.4); AST(SGOT) 22 U/L (15-37); Alanine Aminotransfer ALT/SGPT 19 U/L (13-56); Albumin, Serum 3.8 g/dL (3.2-5.0); Alkaline Phosphatase 131 U/L (45-117); Anion Gap 8 (5-15); BUN 17 mg/dL (7-18); BUN/Creat Ratio 15.9 RATIO (10-20); Calcium,Total 9.9 mg/dL (8.5-10.1); Chloride 104 mmol/L (98-107); Creatinine, Serum 1.07 mg/dL (0.55-1.02); EST Glomerular Filtration Rate 56 mL/min (>60); Est Glom Filt Rate - Afr Amer 68 mL/min (>60); Globulin 4.8 g/dL (2.2-4.2); Glucose 122 mg/dL (74-106); Lipase 29 U/L (13-75); Potassium 3.7 mmol/L (3.5-5.1); Protein, Total 8.6 g/dL (6.4-8.2); Sodium Level 139 mmol/L (136-145); Troponin-I HS 7 pg/mL (3.0-54.0)
[2022-11-16 06:38] VITALS: BP 161/84; PULSE 89; RESP 17; O2SAT 95
[2022-11-16 08:16] VITALS: BP 143/81; PULSE 88; RESP 16; TEMP 36.7; O2SAT 98
[2022-11-17 09:59] LABS: Pathologist Review Reviewed
== END 2022-11-16 08:41 | disposition home or self-care (01) ==
PROVIDERS: Emergency Provider Emergency Medicine; PCP Family Medicine; Visit Provider Emergency Medicine
DX: R10.11 Right upper quadrant pain (principal); R07.9 Chest pain, unspecified; F12.90 Cannabis use, unspecified, uncomplicated; G47.30 Sleep apnea, unspecified; Z86.73 Personal history of transient ischemic attack (TIA), and cerebral infarction without residual deficits; Z86.711 Personal history of pulmonary embolism
CPT/HCPCS: 71045; 74177; 80053; 83690; 84484; 85025; 93005; 96374; 99285; Q9967; A4216

== ENCOUNTER 2022-12-30 20:31 | Emergency (ER) | payer MEDICARE, MEDICAID, SELFPAY ==
[2022-12-30 20:33] VITALS: BP 164/100; PULSE 102; RESP 18; TEMP 36.7; O2SAT 100; BMI 30.4
--- NOTE | 2022-12-30 20:47 | EDS_ITS ---
HPI History of Present Illness Chief Complaint: Complaint Detail of Chief Complaint: Decreased urine output and abdominal pain and back pain Informant: patient Narrative Narrative: Patient presents to the emergency department complaining of not feeling well since yesterday. Patient complains of some low back discomfort as well as some upper abdomen pain. She describes difficult time starting her urine stream today. She states that she sat on the toilet at her granddaughter's house for about 20 minutes before she could urinate. She denies dysuria or urgency or frequency. She denies fevers. [facility] Medical History Alcohol abuse Asthma Chronic pain COPD (chronic obstructive pulmonary disease) Kidney stones Pulmonary embolism Sleep apnea Smoker Stroke/cerebrovascular accident Substance abuse TIA (transient ischemic attack) Home Medications albuterol sulfate 2.5 mg/3 mL (0.083 %) solution for nebulization 2.5 mg (3 mL) inhalation Q4H PRN #25 vials 10/20/17 [Rx Last Taken 05/18/18] albuterol sulfate 90 mcg/actuation aerosol inhaler (Ventolin HFA) 1 - 2 puff inhalation PRN PRN Sob &/Or Wheezing 05/18/18 [History Last Taken 03/20/19] epinephrine 0.3 mg/0.3 mL injection, auto-injector 0.3 mg (0.3 mL) IM X1 ##1 01/21/19 [Rx Last Taken Unknown] gabapentin 300 mg capsule 300 mg PO TID pain 03/21/19 [History Last Taken 03/19/19] doxycycline monohydrate 100 mg capsule 100 mg PO BID #20 caps 08/31/21 [Rx Last Taken Unknown] ipratropium 0.5 mg-albuterol 3 mg (2.5 mg base)/3 mL nebulization soln 3 ml inhalation BID 08/31/21 [History Last Taken Unknown] prednisone 20 mg tablet 60 mg PO DAILY #15 tabs 08/31/21 [Rx Last Taken Unknown] amoxicillin 500 mg tablet 500 mg PO TID #30 tabs 09/09/22 [Rx Last Taken Unknown] dicyclomine 10 mg capsule 20 mg PO Q6H PRN PRN abdominal discomfort #20 CAPSULES 09/09/22 [Rx Last Taken Unknown] oxycodone-acetaminophen 5 mg-325 mg tablet (Endocet) 1 tab PO Q6H PRN pain 3 days #12 tabs 10/12/22 [Rx Last Taken Unknown] ondansetron 4 mg disintegrating tablet 4 mg PO Q6H PRN nausea and vomiting #7 tabs 11/16/22 [Rx Last Taken Unknown] pantoprazole 40 mg tablet,delayed release (Protonix) 40 mg PO BID 10 days #20 tabs 11/16/22 [Rx Last Taken Unknown] Allergy/AdvReac Type Severity Reaction Status Date / Time peanut Allergy Anaphylaxis Verified 12/30/22 20:35 tree nut [Tree Nut] Allergy Anaphylaxis Verified 12/30/22 20:35 Family History Mother COPD (chronic obstructive pulmonary disease) Hypertension Father Epilepsy Surgical History History of bilateral ligation of fallopian tubes History of cholecystectomy Social History household members: none Smoking Status: Current every day smoker tobacco type: cigarettes alcohol intake: former substance use type: marijuana ROS ROS ED Review of Systems ROS Unobtainable: other Constitutional Constitutional ED: Reports lethargy; Denies chills, fever(s), sweats or weight loss Eyes Eyes: Denies blurry vision, change in vision or diplopia ENT ENT ED: Denies rhinorrhea or sore throat Cardiovascular Cardiovascular: Denies chest pain, orthopnea or racing heartbeat Respiratory/Chest Respiratory/Chest: Denies cough, dyspnea, dyspnea on exertion, orthopnea or sputum Gastrointestinal Gastrointestinal: Reports abdominal pain; Denies diarrhea, nausea or vomiting Genitourinary Genitourinary ED: Denies dysuria, hematuria or urinary frequency Musculoskeletal Musculoskeletal: Reports back pain; Denies arthralgias, myalgias or neck pain Integumentary Denies abscess, Abrasions or rash Neurologic Neurologic: Denies headache(s) or weakness Psychiatric Psychiatric: Denies anxiety, depression or suicidal thoughts Endocrine Endocrinology: Denies polydipsia, polyphagia or polyuria Hematologic/Lymphatic Hematologic/Lymphatic: Denies easy bleeding, easy bruising or lymphadenopathy Allergic/Immunologic Allergic/Immunologic ED: Denies mouth swelling, tongue swelling or urticaria EXAM Physical Exam Const Vital Signs: 12/30/22 20:33 Temperature 98.0 F Temperature Source Temporal Pulse Rate 102 H Respiratory Rate 18 Blood Pressure 164/100 H Blood Pressure Mean 121 Pulse Ox 100 Oxygen Delivery Method Room Air Positive well nourished and well developed General Appearance ED: well developed and NAD HEENT Reports TM's clear and moist mucous membranes normocephalic and atraumatic; Negative for trauma or tenderness Tympanic Membrane ED: Yes TM's clear Eyes PERRL and EOMs intact bilaterally General Eye ED: Negative for pale conjunctiva or scleral icterus Neck no lymphadenopathy, supple and no JVD General: Negative for tenderness Chest Wall inspection of chest normal and palpation of chest normal Chest: Negative for tenderness Resp normal respiratory effort and clear to auscultation bilaterally Effort and Inspection: Negative for respiratory distress or pain with movement Auscultation: Negative for rhonchi, wheezes or diminished lung sounds Cardio regular rate, regular rhythm, S1 normal heart sound, S2 normal heart sound and no murmurs Peripheral Pulses: pulses 2+ throughout GI normal to inspection, nondistended, normoactive bowel sounds, soft to palpation, non-distended and no masses GI Narrative: Tenderness palpation over the epigastric region as well as the right lower quadrant with some guarding. Patient has CVA tenderness on the right as well as on the left. Back/Spine no CVA tenderness and no thoracic nor lumbar tenderness Back/Spine Narrative: Mild diffuse tenderness over the thoracic and lumbar spine and paraspinal musculature diffusely. Negative straight leg raises. Deep tendon reflexes plus 2 out of 4 bilaterally at the patella Achilles. Patient has normal L5 extension. Extremity normal to inspection General Extremety ED: Negative for edema General Extremity: Negative for edema Neuro oriented x3, CN's II-XII intact bilaterally, no sensory deficits noted and gait normal Sensorium / Orientation: awake, alert, oriented to person, oriented to place and oriented to time Motor Exam: strength 5/5 throughout and strength abnormal Psych mental status grossly normal Skin no rashes or lesions noted and no wounds MDM MDM MDM Narrative Medical decision making narrative: Presents with vague complaints of not feeling well with jose pain and back pain and hard time starting her urine stream at times. Patient also tells me that she has been having a hard time swallowing and is lost about 70 or 80 pounds in the last year. Patient admits to occasional marijuana use and methamphetamine use. She is following up with her primary care physician next week. Etiology of patient's symptoms unclear although entertain possibility of kidney stone or UTI versus appendicitis as she did have some right lower quadrant pain on exam. Patient had a IV line established and was given Toradol. WBC count was elevated at 14 however she chronically has an elevated white blood cell count and she is never seen anybody for this. Patient also had an elevated platelet count of 533. Platelet count chronically elevated also. Chemistries unremarkable. LFTs normal.. Urinalysis normal. CT scan of the abdomen pelvis without contrast showed a thickened distal esophagus otherwise no acute disease process. I discussed results with patient. I recommended that she follow-up with gastroenterology as it is concerning that she is having hard time swallowing and there is evidence of thickened esophagus on scan. In the differential would be esophagitis versus stricture versus malignancy and I did discuss this with the patient. I will refer her to Dr. Asencio for follow-up. Lab Data Attestation: I reviewed the patient's lab results. Labs: Laboratory Results - last 24 hr 12/30/22 12/30/22 12/30/22 21:01 21:01 21:02 WBC 14.0 H RBC 5.23 Hgb 14.9 Hct 46.0 MCV 88.0 MCH 28.5 MCHC 32.4 RDW Std Deviation 43.5 RDW Coeff of Madhu 13.5 Plt Count 533 H MPV 9.1 Immature Gran % (Auto) 0.400 Neut % (Auto) 66.2 Lymph % (Auto) 24.9 Bates % (Auto) 5.8 Eos % (Auto) 2.2 Baso % (Auto) 0.5 Absolute Neuts (auto) 9.2 H Absolute Lymphs (auto) 3.48 Nucleated RBC % 0 Sodium 139 Potassium 3.7 Chloride 105 Carbon Dioxide 29.0 Anion Gap 5 BUN 15 Creatinine 0.90 Estim Creat Clear Calc 60.27 Est GFR (MDRD) Af Amer 83 Est GFR (MDRD) Non-Af 68 BUN/Creatinine Ratio 16.6 Glucose 100 Calcium 9.3 Total Bilirubin 0.30 AST 15 ALT 16 Alkaline Phosphatase 117 Total Protein 7.7 Albumin 3.3 Globulin 4.4 H Albumin/Globulin Ratio 0.8 L Lipase 32 Urine Color Yellow Urine Clarity Clear Urine pH 6.5 Ur Specific [place] 1.015 Urine Protein 15 H Urine Glucose (UA) Normal Urine Ketones Negative Urine Occult Blood 25 H Urine Nitrite Negative Urine Bilirubin Negative Urine Urobilinogen Normal Ur Leukocyte Esterase Negative Urine RBC 0 SEEN Urine WBC 0-5 SEEN Ur Squamous Epith Cells 0 SEEN Urine Bacteria 0 SEEN Urine Mucus 0 SEEN Radiography Diagnostic Testing: Clinical Impression(s) from Imaging Studies Abdomen/Pelvis CT 12/30/22 21:15 IMPRESSION: 1. Resolution of the small bowel dilatation noted on the previous exam. 2. Stable nonobstructing left renal calculus. 3. Persistent prominence of the distal esophagus. Question esophagitis. 4. No other major interval change. Electronically Signed: Jam Ramirez DO at 21:42 EDT Reading Location ID and State: [facility] / [place] Tel [phone], Service support , Discharge Plan Triage Chief Complaint: Complaint ED Provider: Kristi Rubi Dx/Rx/DC Orders Clinical Impression: Back pain, Abdominal pain, Dysphagia Instructions: ED Abdominal Pain Unkn Cause Fem, ED Back Pain (Acute or Chronic), ED Dysphagia (Adult) Prescriptions: No Action albuterol sulfate 2.5 MG/3 ML solution for nebulization 2.5 mg INHALATION Q4H PRN Qty: 25 0RF Rx Instructions: Use q4 hours and PRN for wheezing albuterol sulfate [Ventolin HFA] 18 GM HFA aerosol inhaler 1 - 2 puff inhalation PRN PRN (Reason: Sob &/Or Wheezing) Label Comments: inhale 2 puffs by mouth every 4 hours as directed if needed for wheezing or shortness of breath epinephrine 0.3 MG syringe 0.3 mg IM X1 Qty: 1 1RF gabapentin 300 capsule 300 mg PO TID ipratropium-albuterol 0.5 mg-3 mg(2.5 mg base)/3 mL solution for nebulization 3 ml inhalation BID Label Comments: inhale contents of 1 vial in nebulizer as directed every 6 hours ... (REFER TO PRESCRIPTION NOTES). prednisone 20 MG tablet 60 mg PO DAILY Qty: 15 0RF doxycycline monohydrate 100 MG capsule 100 mg PO BID Qty: 20 0RF amoxicillin 500 MG tablet 500 mg PO TID Qty: 30 0RF dicyclomine 10 MG capsule 20 mg PO Q6H PRN PRN (Reason: abdominal discomfort) Qty: 20 0RF oxycodone-acetaminophen [Endocet] 5-325 mg tablet 1 tab PO Q6H PRN (Reason: pain) 3 Days Qty: 12 0RF ondansetron 4 mg tablet,disintegrating 4 mg PO Q6H PRN (Reason: nausea and vomiting) Qty: 7 0RF pantoprazole [Protonix] 40 mg tablet,delayed release (DR/EC) 40 mg PO BID 10 Days Qty: 20 0RF Primary Care Provider: Steven Welsh Referrals: Steven Welsh MD [Primary Care Provider] - 5-7 Days Jorge L Asencio DO [Med Staff - Active Staff] - 3-5 Days Disposition Disposition: Home, Self Care
[2022-12-30] MEDS: Ketorolac 15 MG/ML Vial IV (20:59)
[2022-12-30] MEDS: 0.9% Normal Saline 1,000 ML 150 ML IV (20:59)
[2022-12-30 21:09] LABS: Absolute Lymphocyte Count 3.48 X10^3/uL (0.83-4.51); Absolute Neutrophil Count 9.2 X10^3/uL (2.0-7.7); Basophil# 0.07 X10^3/uL; Basophil% 0.5 % (0-1); Eosinophil# 0.31 X10^3/uL; Eosinophils% 2.2 % (0-5); Hemoglobin 14.9 g/dL (12.0-15.0); Lymphocyte # 3.48 X10^3/ul (0.83-4.51); Lymphocyte % 24.9 % (19-41); Mean Corp Hgb Conc 32.4 g/dL (32-36); Mean Corpuscular Hgb 28.5 pg (27.0-32.0); Mean Platelet Vol. 9.1 fl (6.2-12.0); Monocyte# 0.81 X10^3/uL; Monocyte% 5.8 % (0-10); NRBC Flagged by Analyzer 0 % (0-5); Neutrophil # 9.23 X10^3/uL (2.7-7.7); Neutrophil % 66.2 % (47-70); Platelet Count 533 K/mm3 (150-450); RBC Distribution Width CV 13.5 % (11.6-14.6); RBC Distribution Width SD 43.5 fl (35.1-43.9); Red Blood Count 5.23 M/mm3 (4.2-5.4)
[2022-12-30 21:09] LABS: Bacteria 0 SEEN /hpf (None Seen); Mucous, Urine 0 SEEN /hpf (<or=2+); Red Blood Cells-Urine 0 SEEN /hpf (0-5); Squamous Epithelial Cells - UA 0 SEEN /hpf (5-10)
--- NOTE | 2022-12-30 21:15 | CT_ITS ---
STUDY: CT ABDOMEN AND PELVIS WITHOUT CONTRAST REASON FOR EXAM: Female, 57 years old. Abdominal pain. RADIATION DOSAGE (If Supplied By Facility): CTDIvol = ( 10.10 ) mGy, DLP = ( 491.95 ) mGycm TECHNIQUE: Transaxial images were obtained from the dome of the diaphragm to the symphysis pubis without oral contrast, and without intravenous contrast. Sagittal and coronal images were reconstructed. Individualized dose optimization techniques were used for this CT. COMPARISON: November 16, 2022, September 09, 2022. FINDINGS: The visualized lung bases are unremarkable. The visualized portions of the heart are within normal limits. Again seen is wall thickening of the distal esophagus similar to the previous study. Normal liver. There are surgical clips in the gallbladder fossa consistent with a prior cholecystectomy. Normal spleen. Normal pancreas. Normal bilateral adrenal glands. Normal right kidney. Normal right ureter. The left kidney is of normal size and cortical thickness. There is a 4 mm nonobstructing calculus in the mid renal calyx. Normal left ureter. Stomach is distended without evidence of obstruction. Normal small intestine. Normal colon. The appendix is visualized and appears normal. There is diffuse atherosclerotic calcification of the abdominal aorta, without a demonstrated aneurysm. Normal inferior vena cava. Normal retroperitoneum. Urinary bladder is collapsed. Normal uterus and adnexa. No pelvic lymphadenopathy. No free air or free fluid is seen within the cavity. Normal abdominal wall. Normal osseous structures. CT/Abdomen/Pelvis without Cont IMPRESSION: 1. Resolution of the small bowel dilatation noted on the previous exam. 2. Stable nonobstructing left renal calculus. 3. Persistent prominence of the distal esophagus. Question esophagitis. 4. No other major interval change. Electronically Signed: Jam Ramirez DO at 21:42 EDT Reading Location ID and State: [address] [place] [address] Tel [phone], Service support ,
[2022-12-30 21:17] LABS: Color, Urine Yellow (Yellow); Glucose, Dipstick Normal (Normal); Ketone-Dipstick Negative (Negative); Leukocyte Esterase-Dipstick Negative /ul (Negative); Nitrite-Dipstick Negative (Negative); Occult Blood-Urine 25 /ul (Negative); Protein-Dipstick 15 mg/dl (Negative); Specific Gravity, Urine 1.015 (1.002-1.030); Urine Bilirubin Dipstick Negative (Negative); Urine Clarity Clear (Clear); Urine Urobilinogen Normal (Normal); Urine pH 6.5 (5.0 - 8.0)
[2022-12-30 21:23] LABS: White Blood Cells 0-5 SEEN /hpf (0-5)
[2022-12-30 21:28] LABS: ALB/GLOB Ratio 0.8 RATIO (0.9-2.4); AST(SGOT) 15 U/L (15-37); Alanine Aminotransfer ALT/SGPT 16 U/L (13-56); Albumin, Serum 3.3 g/dL (3.2-5.0); Alkaline Phosphatase 117 U/L (45-117); Anion Gap 5 (5-15); BUN 15 mg/dL (7-18); BUN/Creat Ratio 16.6 RATIO (10-20); Calcium,Total 9.3 mg/dL (8.5-10.1); Chloride 105 mmol/L (98-107); EST Glomerular Filtration Rate 68 mL/min (>60); Est Glom Filt Rate - Afr Amer 83 mL/min (>60); Estimated Creatinine Clearance 60.27 ml/min; Globulin 4.4 g/dL (2.2-4.2); Glucose 100 mg/dL (74-106); Lipase 32 U/L (13-75); Potassium 3.7 mmol/L (3.5-5.1); Protein, Total 7.7 g/dL (6.4-8.2); Sodium Level 139 mmol/L (136-145)
== END 2022-12-30 22:30 | disposition home or self-care (01) ==
PROVIDERS: Emergency Provider Emergency Medicine; PCP Family Medicine; Visit Provider Emergency Medicine
DX: M54.50 Low back pain, unspecified (principal); R10.10 Upper abdominal pain, unspecified; R13.10 Dysphagia, unspecified; F12.90 Cannabis use, unspecified, uncomplicated; F17.210 Nicotine dependence, cigarettes, uncomplicated; G47.30 Sleep apnea, unspecified; Z86.73 Personal history of transient ischemic attack (TIA), and cerebral infarction without residual deficits
CPT/HCPCS: 74176; 80053; 81001; 83690; 85025; 96361; 96374; 99283; J7030; A4216

== ENCOUNTER 2023-02-08 11:26 | Inpatient (IN) | payer MEDICARE, MEDICAID, SELFPAY ==
[2023-02-08] VITALS (7 sets, daily range): BP systolic 98–148; BP diastolic 68–93; PULSE 104–123; RESP 16–18; TEMP 36.3–36.8; O2SAT 87–100; BMI 30.4; BMI 29.3
--- NOTE | 2023-02-08 12:29 | CT_ITS ---
STUDY: CT ABDOMEN AND PELVIS WITHOUT CONTRAST REASON FOR EXAM: Female, 57 years old. Flank pain -- rad to rlq. Hematuria. RADIATION DOSAGE (If Supplied By Facility): CTDIvol = ( 11.03 ) mGy, DLP = ( 542.81 ) mGycm TECHNIQUE: Transaxial images were obtained from the dome of the diaphragm to the symphysis pubis without oral contrast, and without intravenous contrast. Sagittal and coronal images were reconstructed. Individualized dose optimization techniques were used for this CT. COMPARISON: Comparison is made with prior study dated December 30, 2022. FINDINGS: Findings suggestive of minimal atelectasis in the lingular segment of the left upper lobe. The visualized portions of the heart are within normal limits. Normal liver. There are surgical clips in the gallbladder fossa consistent with a prior cholecystectomy. Normal spleen. Normal pancreas. Normal bilateral adrenal glands. Mild degree of right perinephric stranding. Mild degree of right hydronephrosis. No obstructive uropathy is seen at this time. Stable 3 mm nonobstructive calculus in the midportion of the left kidney. There is a small hiatal hernia. Stable thickening of the distal esophagus. Endoscopic correlation is recommended. Normal small intestine. Normal colon. The appendix is visualized and appears normal. There is diffuse atherosclerotic calcification of the abdominal aorta and its major visceral branches, without a demonstrated aneurysm. Normal inferior vena cava. Normal retroperitoneum. Normal urinary bladder. Normal abdominal wall. There are degenerative changes of the visualized lumbar spine. CT/Abdomen/Pelvis without Cont IMPRESSION: Mild degree of right perinephric stranding and mild right hydronephrosis although no obstructive calculus is seen at this time. A recently passed calculus cannot be ruled out. Stable nonobstructive crackers and the left kidney. Small hiatal hernia with the stable thickening of the distal esophagus. Electronically Signed: Ayaz Parker MD at 13:52 EDT ,
--- NOTE | 2023-02-08 12:31 | ED.VIS.GI ---
HPI HPI - GI History of Present Illness Chief Complaint: Flank Pain Informant: patient Narrative Narrative: Intermittent right flank pain for the past 4 days yesterday's persistent radiograph her right lower quadrant. Chills however no fevers possible bloody urine states is darker. No dysuria. Cholecystectomy 15 years ago. Denies fevers. Nausea without vomiting. No history of kidney stones. Prior similar symptoms: No PFSH PFSH Medical History Alcohol abuse Asthma Chronic pain COPD (chronic obstructive pulmonary disease) Kidney stones Pulmonary embolism Sleep apnea Smoker Stroke/cerebrovascular accident Substance abuse TIA (transient ischemic attack) Home Medications albuterol sulfate 2.5 mg/3 mL (0.083 %) solution for nebulization 2.5 mg (3 mL) inhalation Q4H PRN #25 vials 10/20/17 [Rx Last Taken 02/08/23] albuterol sulfate 90 mcg/actuation aerosol inhaler (Ventolin HFA) 1 - 2 puff inhalation PRN PRN Sob &/Or Wheezing 05/18/18 [History Last Taken 02/08/23] epinephrine 0.3 mg/0.3 mL injection, auto-injector 0.3 mg (0.3 mL) IM X1 ##1 01/21/19 [Rx Last Taken Unknown] ipratropium 0.5 mg-albuterol 3 mg (2.5 mg base)/3 mL nebulization soln 3 ml inhalation BID 08/31/21 [History Last Taken 02/08/23] Allergy/AdvReac Type Severity Reaction Status Date / Time peanut Allergy Anaphylaxis Verified 12/30/22 20:35 tree nut [Tree Nut] Allergy Anaphylaxis Verified 12/30/22 20:35 Family History Mother COPD (chronic obstructive pulmonary disease) Hypertension Father Epilepsy Surgical History History of bilateral ligation of fallopian tubes History of cholecystectomy Social History household members: none Smoking Status: Current every day smoker tobacco type: cigarettes alcohol intake: former substance use type: marijuana ROS ROS ED Constitutional Constitutional ED: Denies chills, fever(s) or sweats Eyes Eyes: Denies change in vision ENT ENT ED: Denies dysphagia or sore throat Cardiovascular Cardiovascular: Denies chest pain, leg edema, palpitations or racing heartbeat Respiratory/Chest Respiratory/Chest: Denies cough, dyspnea or dyspnea on exertion Gastrointestinal Gastrointestinal: Reports abdominal pain and nausea; Denies diarrhea or vomiting Genitourinary Genitourinary ED: Reports other Details: Possible hematuria ; Denies dysuria, hematuria or urinary frequency Musculoskeletal Musculoskeletal: Reports back pain; Denies extremity pain or neck pain Integumentary Denies rash or wounds Neurologic Neurologic: Denies headache(s), paresthesias or weakness EXAM Physical Exam Const Vital Signs: 02/08/23 11:27 Temperature 97.4 F L Temperature Source Temporal Pulse Rate 107 H Respiratory Rate 18 Blood Pressure 116/85 H Blood Pressure Mean 95 Pulse Ox 100 Oxygen Delivery Method Room Air Positive well nourished and well developed Constitutional Narrative: Tearful and onto oxygen General Appearance ED: well developed and NAD HEENT Reports moist mucous membranes normocephalic and atraumatic Eyes PERRL, EOMs intact bilaterally and conjunctivae normal General Eye ED: Yes normal appearance of both eyes Neck no lymphadenopathy and supple General: Negative for tenderness Chest Wall Chest: Negative for tenderness Resp normal respiratory effort and normal air movement Effort and Inspection: symmetric chest movement; Negative for respiratory distress Cardio regular rate, regular rhythm and no murmurs Peripheral Pulses: pulses 2+ throughout GI normal to inspection, nondistended, normoactive bowel sounds GI Narrative: Tender palpation right lower quadrant. No guarding or rebound. Palpation: Negative for guarding or rebound tenderness present Back/Spine no CVA tenderness and no thoracic nor lumbar tenderness Extremity normal to inspection General Extremety ED: Negative for edema or tenderness General Extremity: Negative for edema Neuro oriented x3 and no sensory deficits noted Sensorium / Orientation: awake and alert Skin no rashes or lesions noted and no wounds Sepsis Attestation Sepsis Alert: Yes Sepsis Attestation: Agree w/Sepsis Date exam was performed: 02/08/23 Time exam was performed: 13:53 Possible Source of Sepsis: GI tract/intra-abdominal and Genitourinary MDM MDM MDM Narrative Medical decision making narrative: Interventions / MDM: Differential diagnosis: Abdominal pain, appendicitis, kidney stones Diagnosis considered but do not suspect: N/A My EKG interpretation: N/A Imaging independently reviewed and interpreted by myself: CT abdomen pelvis: External documents reviewed: N/A Test considered but not ordered:N/A ED course: Patient with intermittent pain flank that radiates to her right lower abdomen. Tender right lower quadrant. History of concern for kidney stones however possible appendicitis. Abdominal labs drawn fluids Zofran and morphine ordered. CT scan ordered for further evaluation. 1350: White count returned at 24.7 been. Left shift with neutrophils. Creatinine 0.98. Tachycardic on arrival. 2 out of 4 SIRS. Urine did note in for patient. Culture urine pending. Blood cultures and lactic acid added Zosyn started. Pending CT results at this time. 1400: CT scan with notes signs of pyelonephritis no obstructive stone noted. 1457: Patient increasing continued pain. Additional morphine was or ordered. Discussed hospitalist service for admission. Lactic 0.9. I discussed with Dr. Bustamante for admission. Re-evaluation: stable Disposition discussed with patient/family/significant other: Case discussed with consulting clinician: N/A This note was generated with [employer] dictation software. It may contain incorrect words, spelling, and punctuation that were not noted in checking the note before signing. Lab Data Attestation: I reviewed the patient's lab results. Labs: Laboratory Results - last 24 hr 02/08/23 02/08/23 02/08/23 12:45 13:00 14:06 WBC 24.7 H RBC 5.15 Hgb 14.4 Hct 46.1 MCV 89.5 MCH 28.0 MCHC 31.2 L RDW Std Deviation 44.7 H RDW Coeff of Madhu 13.7 Plt Count 388 MPV 9.4 Immature Gran % (Auto) 0.800 Neut % (Auto) 82.0 H Lymph % (Auto) 8.4 L [place] % (Auto) 8.3 Eos % (Auto) 0.1 Baso % (Auto) 0.4 Absolute Neuts (auto) 20.3 H Absolute Lymphs (auto) 2.07 Nucleated RBC % 0 Differential Comment SCANNED Diff Path Review May foll Sodium 134 L Potassium 3.7 Chloride 100 Carbon Dioxide 31.0 Anion Gap 3 L BUN 11 Creatinine 0.98 Est GFR (MDRD) Af Amer 75 Est GFR (MDRD) Non-Af 62 BUN/Creatinine Ratio 11.2 Glucose 90 Lactic Acid 0.9 Calcium 8.8 Magnesium 1.8 Total Bilirubin 1.30 H AST 28 ALT 18 Alkaline Phosphatase 124 H Total Protein 7.3 Albumin 3.1 L Globulin 4.2 Albumin/Globulin Ratio 0.7 L Lipase 14 Urine Color Brown Urine Clarity Cloudy Urine pH 6.5 Ur Specific [place] 1.015 Urine Protein 100 H Urine Glucose (UA) Normal Urine Ketones 50 H Urine Occult Blood 250 H Urine Nitrite Positive H Urine Bilirubin 1 H Urine Urobilinogen 4 H Ur Leukocyte Esterase 500 H Urine RBC > 100 SEEN Urine WBC >100 SEEN Ur Squamous Epith Cells 0 SEEN Urine Bacteria 1+ Urine Mucus 0 SEEN Radiography Diagnostic Testing: Clinical Impression(s) from Imaging Studies Abdomen/Pelvis CT 02/08/23 12:29 IMPRESSION: Mild degree of right perinephric stranding and mild right hydronephrosis although no obstructive calculus is seen at this time. A recently passed calculus cannot be ruled out. Stable nonobstructive crackers and the left kidney. Small hiatal hernia with the stable thickening of the distal esophagus. Electronically Signed: Ayaz Parker MD at 13:52 EDT , Discharge Plan Dx/Rx/DC Orders Clinical Impression: Acute right flank pain, Acute pyelonephritis, Leukocytosis Disposition Disposition: [facility] Discharge Date/Time: 02/08/23 16:06
--- NOTE | 2023-02-08 12:31 | EDS_ITS ---
HPI HPI - GI History of Present Illness Chief Complaint: Flank Pain Informant: patient Narrative Narrative: Intermittent right flank pain for the past 4 days yesterday's persistent radiograph her right lower quadrant. Chills however no fevers possible bloody urine states is darker. No dysuria. Cholecystectomy 15 years ago. Denies fevers. Nausea without vomiting. No history of kidney stones. Prior similar symptoms: No PFSH PFSH Medical History Alcohol abuse Asthma Chronic pain COPD (chronic obstructive pulmonary disease) Kidney stones Pulmonary embolism Sleep apnea Smoker Stroke/cerebrovascular accident Substance abuse TIA (transient ischemic attack) Home Medications albuterol sulfate 2.5 mg/3 mL (0.083 %) solution for nebulization 2.5 mg (3 mL) inhalation Q4H PRN #25 vials 10/20/17 [Rx Last Taken 05/18/18] albuterol sulfate 90 mcg/actuation aerosol inhaler (Ventolin HFA) 1 - 2 puff inhalation PRN PRN Sob &/Or Wheezing 05/18/18 [History Last Taken 03/20/19] epinephrine 0.3 mg/0.3 mL injection, auto-injector 0.3 mg (0.3 mL) IM X1 ##1 01/21/19 [Rx Last Taken Unknown] gabapentin 300 mg capsule 300 mg PO TID pain 03/21/19 [History Last Taken 03/19/19] doxycycline monohydrate 100 mg capsule 100 mg PO BID #20 caps 08/31/21 [Rx Last Taken Unknown] ipratropium 0.5 mg-albuterol 3 mg (2.5 mg base)/3 mL nebulization soln 3 ml inhalation BID 08/31/21 [History Last Taken Unknown] prednisone 20 mg tablet 60 mg (3 x 20 mg) PO DAILY #15 tabs 08/31/21 [Rx Last Taken Unknown] amoxicillin 500 mg tablet 500 mg PO TID #30 tabs 09/09/22 [Rx Last Taken Unknown] dicyclomine 10 mg capsule 20 mg (2 x 10 mg) PO Q6H PRN PRN abdominal discomfort #20 CAPSULES 09/09/22 [Rx Last Taken Unknown] oxycodone-acetaminophen 5 mg-325 mg tablet (Endocet) 1 tab PO Q6H PRN pain 3 days #12 tabs 10/12/22 [Rx Last Taken Unknown] ondansetron 4 mg disintegrating tablet 4 mg PO Q6H PRN nausea and vomiting #7 tabs 11/16/22 [Rx Last Taken Unknown] pantoprazole 40 mg tablet,delayed release (Protonix) 40 mg PO BID 10 days #20 tabs 11/16/22 [Rx Last Taken Unknown] Allergy/AdvReac Type Severity Reaction Status Date / Time peanut Allergy Anaphylaxis Verified 12/30/22 20:35 tree nut [Tree Nut] Allergy Anaphylaxis Verified 12/30/22 20:35 Family History Mother COPD (chronic obstructive pulmonary disease) Hypertension Father Epilepsy Surgical History History of bilateral ligation of fallopian tubes History of cholecystectomy Social History household members: none Smoking Status: Current every day smoker tobacco type: cigarettes alcohol intake: former substance use type: marijuana ROS ROS ED Constitutional Constitutional ED: Denies chills, fever(s) or sweats Eyes Eyes: Denies change in vision ENT ENT ED: Denies dysphagia or sore throat Cardiovascular Cardiovascular: Denies chest pain, leg edema, palpitations or racing heartbeat Respiratory/Chest Respiratory/Chest: Denies cough, dyspnea or dyspnea on exertion Gastrointestinal Gastrointestinal: Reports abdominal pain and nausea; Denies diarrhea or vomiting Genitourinary Genitourinary ED: Reports other Details: Possible hematuria ; Denies dysuria, hematuria or urinary frequency Musculoskeletal Musculoskeletal: Reports back pain; Denies extremity pain or neck pain Integumentary Denies rash or wounds Neurologic Neurologic: Denies headache(s), paresthesias or weakness EXAM Physical Exam Const Vital Signs:
[2023-02-08 12:55] LABS: Absolute Lymphocyte Count 2.07 X10^3/uL (0.83-4.51); Absolute Neutrophil Count 20.3 X10^3/uL (2.0-7.7); Basophil% 0.4 % (0-1); Eosinophil# 0.02 X10^3/uL; Eosinophils% 0.1 % (0-5); Hematocrit 46.1 % (37-47); Hemoglobin 14.4 g/dL (12.0-15.0); Lymphocyte # 2.07 X10^3/ul (0.83-4.51); Lymphocyte % 8.4 % (19-41); Mean Corp Hgb Conc 31.2 g/dL (32-36); Mean Corpuscular Volume 89.5 fL (81-99); Mean Platelet Vol. 9.4 fl (6.2-12.0); Monocyte# 2.05 X10^3/uL; Monocyte% 8.3 % (0-10); NRBC Flagged by Analyzer 0 % (0-5); Neutrophil # 20.31 X10^3/uL (2.7-7.7); POSITIVE DIFFERENTIAL YES; Platelet Count 388 K/mm3 (150-450); RBC Distribution Width CV 13.7 % (11.6-14.6); RBC Distribution Width SD 44.7 fl (35.1-43.9); Red Blood Count 5.15 M/mm3 (4.2-5.4); White Blood Count 24.7 K/mm3 (4.4-11.0)
[2023-02-08] MEDS: Ondansetron 4 MG/2 ML Vial IV (12:57)
[2023-02-08] MEDS: 0.9% Normal Saline 1,000 ML 1000 ML IV (12:57)
[2023-02-08] MEDS: Morphine 4 MG/ML Syringe IV ×2 (12:58→15:06)
[2023-02-08 13:09] LABS: Mucous, Urine 0 SEEN /hpf (<or=2+); Squamous Epithelial Cells - UA 0 SEEN /hpf (5-10)
[2023-02-08 13:11] LABS: ALB/GLOB Ratio 0.7 RATIO (0.9-2.4); AST(SGOT) 28 U/L (15-37); Alanine Aminotransfer ALT/SGPT 18 U/L (13-56); Albumin, Serum 3.1 g/dL (3.2-5.0); Alkaline Phosphatase 124 U/L (45-117); Anion Gap 3 (5-15); BUN 11 mg/dL (7-18); BUN/Creat Ratio 11.2 RATIO (10-20); Calcium,Total 8.8 mg/dL (8.5-10.1); Chloride 100 mmol/L (98-107); Creatinine, Serum 0.98 mg/dL (0.55-1.02); EST Glomerular Filtration Rate 62 mL/min (>60); Est Glom Filt Rate - Afr Amer 75 mL/min (>60); Globulin 4.2 g/dL (2.2-4.2); Glucose 90 mg/dL (74-106); Lipase 14 U/L (13-75); Potassium 3.7 mmol/L (3.5-5.1); Protein, Total 7.3 g/dL (6.4-8.2); Sodium Level 134 mmol/L (136-145)
[2023-02-08 13:14] LABS: Color, Urine Brown (Yellow); Glucose, Dipstick Normal (Normal); Ketone-Dipstick 50 mg/dl (Negative); Leukocyte Esterase-Dipstick 500 /ul (Negative); Nitrite-Dipstick Positive (Negative); Occult Blood-Urine 250 /ul (Negative); Protein-Dipstick 100 mg/dl (Negative); Specific Gravity, Urine 1.015 (1.002-1.030); Urine Clarity Cloudy (Clear); Urine Urobilinogen 4 mg/dl (Normal); Urine pH 6.5 (5.0 - 8.0)
[2023-02-08 13:16] LABS: Urine Bilirubin Dipstick 1 mg/dL (Negative)
[2023-02-08 13:21] LABS: Bacteria 1+ /hpf (None Seen); Red Blood Cells-Urine > 100 SEEN /hpf (0-5); White Blood Cells >100 SEEN /hpf (0-5)
[2023-02-08 13:23] LABS: Differential Indicated SCAN CRITERIA MET
[2023-02-08 13:24] LABS: Differential Comment SCANNED
[2023-02-08 14:54] LABS: Lactic Acid 0.9 mmol/L (0.4-1.9)
--- NOTE | 2023-02-08 15:01 | PCM.HP.STD ---
HPI - General General Date of Admission: 02/08/23 Date of Service: 02/08/23 Chief Complaint: Right-sided flank pain and abdominal pain. Mild hematuria HPI Narrative SAVANNAH IRVIN, is a 57 F history of COPD/asthma came to ER with right-sided flank pain for 4 days. Patient is also shivering and chills that started yesterday night. She did not measure fever. She complains of blood mixed with urine, pinkish in color. Patient has mild nausea but no vomiting. She denies burning micturition but has increased frequency, urgency, incomplete emptying of bladder and dribbling of urine. She does not get frequent UTI last time was about 3 years ago. She stated she has history of kidney stone about 4- 5 years ago but did not require any procedure. She stated she had some procedure for 5 years ago but does not know what it was. She denies having cystoscopy, lithotripsy, pediatric stenting or percutaneous nephrostomy. She does not see a urologist. She has a history of substance use in the past and depression and states she had history of suicidal attempt 2 times in the past last 1 more than 10 years ago. She is anxious and fearful. [facility] Medical History Alcohol abuse Asthma Chronic pain COPD (chronic obstructive pulmonary disease) Kidney stones Pulmonary embolism Sleep apnea Smoker Stroke/cerebrovascular accident Substance abuse TIA (transient ischemic attack) Home Medications albuterol sulfate 2.5 mg/3 mL (0.083 %) solution for nebulization 2.5 mg (3 mL) inhalation Q4H PRN #25 vials 10/20/17 [Rx Last Taken 02/08/23] albuterol sulfate 90 mcg/actuation aerosol inhaler (Ventolin HFA) 1 - 2 puff inhalation PRN PRN Sob &/Or Wheezing 05/18/18 [History Last Taken 02/08/23] epinephrine 0.3 mg/0.3 mL injection, auto-injector 0.3 mg (0.3 mL) IM X1 ##1 01/21/19 [Rx Last Taken Unknown] ipratropium 0.5 mg-albuterol 3 mg (2.5 mg base)/3 mL nebulization soln 3 ml inhalation BID 08/31/21 [History Last Taken 07/24/23] Allergy/AdvReac Type Severity Reaction Status Date / Time peanut Allergy Anaphylaxis Verified 12/30/22 20:35 tree nut [Tree Nut] Allergy Anaphylaxis Verified 12/30/22 20:35 Family History Mother COPD (chronic obstructive pulmonary disease) Hypertension Father Epilepsy Surgical History History of bilateral ligation of fallopian tubes History of cholecystectomy Social History household members: none Smoking Status: Current every day smoker tobacco type: cigarettes alcohol intake: former substance use type: marijuana ROS ROS Narrative Constitutional: Reports fatigue and weakness. No fever. HEENT: Reports systems reviewed and no addt'l complaints, except as documented Respiratory/Chest: Chronic wheezing from COPD/asthma. No acute shortness of breath. CVS: No chest pain. No history of coronary artery disease. Gastrointestinal: Denies coffee ground emesis, hematemesis or vomiting Genitourinary: As described in HPI. Musculoskeletal: Denies acute joint pain or limited range of motion. No acute injury Neurologic: Denies seizure-like symptoms. No acute strokelike symptoms. Psychiatric: History of anxiety and depression. History of suicidal attempt. skin: No ulcer. Chronic rash in both legs seems venous Endocrinology: Reports systems reviewed and no addt'l complaints, except as documented Hematologic/Lymphatic: Reports systems reviewed and no addt'l complaints, except as documented Rest 14 ROS are negative except as mentioned in HPI Vital Signs Vital Signs Vital Signs: 02/08/23 11:27 Temperature 97.4 F L Temperature Source Temporal Pulse Rate 107 H Respiratory Rate 18 Blood Pressure 116/85 H Blood Pressure Mean 95 Pulse Ox 100 Oxygen Delivery Method Room Air Physical Exam Narrative General: Alert, Oriented x3, Cooperative HEENT: Atraumatic, PERRLA, EOMI, Normocephalic Oral: No Gingival or Mucosal Lesions/ Ulcerations Neck: Supple, No JVD, Negative Carotid Bruits Lungs: Air entry diminished in bilateral lung bases. No crepitation/rhonchi Cardiovascular: Regular rate, Regular Rhythm, Normal S1, Normal S2, No murmurs Abdomen: Bowel Sounds Present, Soft, tenderness present over right lumbar area, right umbilical area. : Tenderness present over right renal angle. Left renal angle no tenderness. Extremities: No edema, Capillary Refill Less than 3 Seconds Skin: Bilateral lower legs purpleish, venous lace like Network. Musculoskeletal: No Tenderness to Palpation of Joints or Extremities Neurological: Cranial nerves II-XII grossly intact, DTR 2+/4 and Symmetrical, Neuro grossly intact Psych/Mental Status: Looks depressed. Fearful. Results Lab / Micro Data 02/08/23 12:45 02/08/23 12:45 Labs: Laboratory Results - last 24 hr 02/08/23 12:45: WBC 24.7 H, RBC 5.15, Hgb 14.4, Hct 46.1, MCV 89.5, MCH 28.0, MCHC 31.2 L, RDW Std Deviation 44.7 H, RDW Coeff of Madhu 13.7, Plt Count 388, MPV 9.4, Immature Gran % (Auto) 0.800, Neut % (Auto) 82.0 H, Lymph % (Auto) 8.4 L, [place] % (Auto) 8.3, Eos % (Auto) 0.1, Baso % (Auto) 0.4, Absolute Neuts (auto) 20.3 H, Absolute Lymphs (auto) 2.07, Nucleated RBC % 0, Differential Comment SCANNED, Diff Path Review November, Sodium 134 L, Potassium 3.7, Chloride 100, Carbon Dioxide 31.0, Anion Gap 3 L, BUN 11, Creatinine 0.98, Est GFR (MDRD) Af Amer 75, Est GFR (MDRD) Non-Af 62, BUN/Creatinine Ratio 11.2, Glucose 90, Calcium 8.8, Total Bilirubin 1.30 H, AST 28, ALT 18, Alkaline Phosphatase 124 H, Total Protein 7.3, Albumin 3.1 L, Globulin 4.2, Albumin/Globulin Ratio 0.7 L, Lipase 14 02/08/23 13:00: Urine Color Brown, Urine Clarity Cloudy, Urine pH 6.5, Ur Specific [place] 1.015, Urine Protein 100 H, Urine Glucose (UA) Normal, Urine Ketones 50 H, Urine Occult Blood 250 H, Urine Nitrite Positive H, Urine Bilirubin 1 H, Urine Urobilinogen 4 H, Ur Leukocyte Esterase 500 H, Urine RBC > 100 SEEN, Urine WBC >100 SEEN, Ur Squamous Epith Cells 0 SEEN, Urine Bacteria 1+, Urine Mucus 0 SEEN 02/08/23 14:06: Lactic Acid 0.9 Radiology Impression Abdomen/Pelvis CT 02/08/23 12:29 IMPRESSION: Mild degree of right perinephric stranding and mild right hydronephrosis although no obstructive calculus is seen at this time. A recently passed calculus cannot be ruled out. Stable nonobstructive crackers and the left kidney. Small hiatal hernia with the stable thickening of the distal esophagus. Electronically Signed: Ayaz Parker MD at 13:52 EDT , Assessment & Plan Assessment/Plan (1) Acute pyelonephritis: PLAN: Plan This is a 57-year-old female came to ER for right flank pain and mild blood mixed urine, hematuria. 1. Right-sided pyelonephritis: Patient is being admitted in MedSur floor. She is not having sinus symptoms suggestive of sepsis. No recordable fever. No hypotension. Labs not suggestive of acute sepsis related organ dysfunction. Patient has leukocytosis, mild tachycardia. UA suggestive of pyuria, RBC more than 100 cells, LE positive, nitrite positive. Patient was given IV Zosyn in ED. Started on IV ceftriaxone 2 g daily. Blood and urine culture ordered. CT abdomen shows right perinephric stranding and mild right hydronephrosis although no obstructive calculus or uropathy seen. Stable 3 cm nonobstructive calculus in the midportion of left kidney. 2. COPD: Clinically stable. Continue DuoNeb every 6 hours, albuterol PRN. Incentive spirometry. 3. History of hypertension: Blood pressure is controlled. 4.. Current smoker, smokes cigarettes. Quit alcohol and substance use, history of polysubstance use in the past: Nicotine patch ordered. 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 5. Anxiety and depression history of suicidal attempt more than 10 years ago: Patient states she is not on an antidepression medication. Living will/advanced directive/end of life care: Patient does not have living will or advanced directive or designated power of sports attorney for health. After discussion of benefits/risks procedures involved with full code, DNR CC arrest and DNR CC, the patient opted for full code. Patient does want artificial life support including intubation, tube feed, ventilator and/chest compression, central venous catheter, vasopressor and DC shock if needed Total time spent in [id number] encounter in discussion of advanced directive 17 minutes. Laboratory Results 02/08/23 12:45: WBC 24.7 H, RBC 5.15, Hgb 14.4, Hct 46.1, MCV 89.5, MCH 28.0, MCHC 31.2 L, RDW Std Deviation 44.7 H, RDW Coeff of Madhu 13.7, Plt Count 388, MPV 9.4, Immature Gran % (Auto) 0.800, Neut % (Auto) 82.0 H, Lymph % (Auto) 8.4 L, [place] % (Auto) 8.3, Eos % (Auto) 0.1, Baso % (Auto) 0.4, Absolute Neuts (auto) 20.3 H, Absolute Lymphs (auto) 2.07, Nucleated RBC % 0, Differential Comment SCANNED, Diff Path Review November, Sodium 134 L, Potassium 3.7, Chloride 100, Carbon Dioxide 31.0, Anion Gap 3 L, BUN 11, Creatinine 0.98, Est GFR (MDRD) Af Amer 75, Est GFR (MDRD) Non-Af 62, BUN/Creatinine Ratio 11.2, Glucose 90, Calcium 8.8, Total Bilirubin 1.30 H, AST 28, ALT 18, Alkaline Phosphatase 124 H, Total Protein 7.3, Albumin 3.1 L, Globulin 4.2, Albumin/Globulin Ratio 0.7 L, Lipase 14 02/08/23 13:00: Urine Color Brown, Urine Clarity Cloudy, Urine pH 6.5, Ur Specific [place] 1.015, Urine Protein 100 H, Urine Glucose (UA) Normal, Urine Ketones 50 H, Urine Occult Blood 250 H, Urine Nitrite Positive H, Urine Bilirubin 1 H, Urine Urobilinogen 4 H, Ur Leukocyte Esterase 500 H, Urine RBC > 100 SEEN, Urine WBC >100 SEEN, Ur Squamous Epith Cells 0 SEEN, Urine Bacteria 1+, Urine Mucus 0 SEEN 02/08/23 14:06: Lactic Acid 0.9 Clinical Impression(s) from Imaging Studies Abdomen/Pelvis CT 02/08/23 12:29 IMPRESSION: Mild degree of right perinephric stranding and mild right hydronephrosis although no obstructive calculus is seen at this time. A recently passed calculus cannot be ruled out. Stable nonobstructive crackers and the left kidney. Small hiatal hernia with the stable thickening of the distal esophagus. Charges/Coding Visit Charges Inpatient E&M: 15101 Init Hosp L3 Procedures Hospitalists Procedures: 06110 Advncd Care Plan 30 Min
[2023-02-08 16:15] LABS: Magnesium 1.8 mg/dL (1.6-2.6)
[2023-02-08] MEDS: KCL 20MEQ in 0.9% NS 20 MEQ/1,000 ML IV.SOLN. 100 MEQ IV (17:15)
[2023-02-08] MEDS: Enoxaparin 40 MG/0.4 ML Syringe SC (17:16)
[2023-02-08] MEDS: Ipratropium/Albuterol Sulfate 3 ML AMPUL.NEB INHALATION (19:50)
[2023-02-08] MEDS: Morphine 2 MG/ML Syringe IV ×2 (20:20→23:42)
[2023-02-09] VITALS (12 sets, daily range): BP systolic 98–127; BP diastolic 59–82; PULSE 88–102; RESP 12–18; TEMP 36.6–36.9; O2SAT 85–99; BMI 29.2
[2023-02-09] MEDS: KCL 20MEQ in 0.9% NS 20 MEQ/1,000 ML IV.SOLN. 100 MEQ IV (02:06)
[2023-02-09] MEDS: Albuterol 2.5 MG/3 ML VIAL.NEB. INHALATION (02:30)
[2023-02-09 06:02] LABS: Absolute Lymphocyte Count 1.55 X10^3/uL (0.83-4.51); Absolute Neutrophil Count 23.3 X10^3/uL (2.0-7.7); Basophil# 0.07 X10^3/uL; Basophil% 0.3 % (0-1); Eosinophil# 0.02 X10^3/uL; Eosinophils% 0.1 % (0-5); Hematocrit 42.1 % (37-47); Lymphocyte # 1.55 X10^3/ul (0.83-4.51); Lymphocyte % 5.7 % (19-41); Mean Corp Hgb Conc 30.9 g/dL (32-36); Mean Corpuscular Hgb 28.2 pg (27.0-32.0); Mean Corpuscular Volume 91.3 fL (81-99); Mean Platelet Vol. 9.8 fl (6.2-12.0); Monocyte# 1.81 X10^3/uL; Monocyte% 6.7 % (0-10); NRBC Flagged by Analyzer 0 % (0-5); Neutrophil # 23.27 X10^3/uL (2.7-7.7); Neutrophil % 85.4 % (47-70); POSITIVE DIFFERENTIAL YES; Platelet Count 338 K/mm3 (150-450); RBC Distribution Width CV 13.9 % (11.6-14.6); RBC Distribution Width SD 47.1 fl (35.1-43.9); Red Blood Count 4.61 M/mm3 (4.2-5.4); White Blood Count 27.2 K/mm3 (4.4-11.0)
[2023-02-09] MEDS: Morphine 2 MG/ML Syringe IV (06:05)
[2023-02-09 06:06] LABS: Differential Indicated SCAN CRITERIA MET
[2023-02-09 06:37] LABS: Anion Gap 4 (5-15); BUN 12 mg/dL (7-18); BUN/Creat Ratio 11.3 RATIO (10-20); Chloride 101 mmol/L (98-107); Creatinine, Serum 1.06 mg/dL (0.55-1.02); EST Glomerular Filtration Rate 57 mL/min (>60); Est Glom Filt Rate - Afr Amer 69 mL/min (>60); Estimated Creatinine Clearance 51.17 ml/min; Glucose 98 mg/dL (74-106); Potassium 4.5 mmol/L (3.5-5.1); Sodium Level 133 mmol/L (136-145)
[2023-02-09] MEDS: Ipratropium/Albuterol Sulfate 3 ML AMPUL.NEB INHALATION ×2 (07:17→19:20)
[2023-02-09] MEDS: Enoxaparin 40 MG/0.4 ML Syringe SC (07:53)
[2023-02-09] MEDS: Acetaminophen 325 MG Tablet 650 MG PO ×2 (11:14→18:10)
[2023-02-09] MEDS: PARoxetine 10 MG Tablet PO (11:15)
[2023-02-09] MEDS: oxyCODONE 5 MG Tablet PO ×2 (11:15→18:10)
--- NOTE | 2023-02-09 11:49 | PN.HOSP_ITS ---
Reason for Visit Reason for Visit: Diagnoses Acute pyelonephritis (02/08/23) Subjective Subjective Follow-up for right-sided acute pyelonephritis. Objective Data Objective Data Vital Signs: Vital Signs Temp Pulse Resp BP Pulse Ox O2 Del Method O2 Flow Rate 97.9 F 99 18 103/60 96 Nasal Cannula 2 02/09/23 10:00 02/09/23 10:00 02/09/23 10:00 02/09/23 10:00 02/09/23 10:00 02/09/23 10:00 02/09/23 10:00 Oxygen Flow Rate (L/min) 2 Oxygen Delivery Method Nasal Cannula Weight: 171 lb 1.259 oz Body Mass Index (BMI) 29.2 Intake & Output: Intake and Output for Last 24 Hours 02/07/23 02/08/23 02/09/23 23:59 23:59 23:59 Intake Total 1648.33 / 1648.33 460 / 460 Output Total 800 / 800 Balance 1648.33 / 1648.33 -340 / -340 Lab / Micro Data 02/09/23 05:45 02/09/23 05:45 Labs: Laboratory Results - last 24 hr 02/08/23 12:45: WBC 24.7 H, RBC 5.15, Hgb 14.4, Hct 46.1, MCV 89.5, MCH 28.0, MCHC 31.2 L, RDW Std Deviation 44.7 H, RDW Coeff of Madhu 13.7, Plt Count 388, MPV 9.4, Immature Gran % (Auto) 0.800, Neut % (Auto) 82.0 H, Lymph % (Auto) 8.4 L, [place] % (Auto) 8.3, Eos % (Auto) 0.1, Baso % (Auto) 0.4, Absolute Neuts (auto) 20.3 H, Absolute Lymphs (auto) 2.07, Nucleated RBC % 0, Differential Comment SCANNED, Diff Path Review November, Sodium 134 L, Potassium 3.7, Chloride 100, Carbon Dioxide 31.0, Anion Gap 3 L, BUN 11, Creatinine 0.98, Est GFR (MDRD) Af Amer 75, Est GFR (MDRD) Non-Af 62, BUN/Creatinine Ratio 11.2, Glucose 90, Calcium 8.8, Magnesium 1.8, Total Bilirubin 1.30 H, AST 28, ALT 18, Alkaline Phosphatase 124 H, Total Protein 7.3, Albumin 3.1 L, Globulin 4.2, Albumi n/Globulin Ratio 0.7 L, Lipase 14 02/08/23 13:00: Urine Color Brown, Urine Clarity Cloudy, Urine pH 6.5, Ur Specific [place] 1.015, Urine Protein 100 H, Urine Glucose (UA) Normal, Urine Ketones 50 H, Urine Occult Blood 250 H, Urine Nitrite Positive H, Urine Bili bojorquez 1 H, Urine Urobilinogen 4 H, Ur Leukocyte Esterase 500 H, Urine RBC > 100 SEEN, Urine WBC >100 SEEN, Ur Squamous Epith Cells 0 SEEN, Urine Bacteria 1+, Urine Mucus 0 SEEN 02/08/23 14:06: Lactic Acid 0.9 02/09/23 05:45: WBC 27.2 H, RBC 4.61, Hgb 13.0, Hct 42.1, MCV 91.3, MCH 28.2, MCHC 30.9 L, RDW Std Deviation 47.1 H, RDW Coeff of Madhu 13.9, Plt Count 338, MPV 9.8, Immature Gran % (Auto) 1.800 H, Neut % (Auto) 85.4 H, Lymph % (Auto) 5.7 L, [place] % (Auto) 6.7, Eos % (Auto) 0.1, Baso % (Auto) 0.3, Absolute Neuts (auto) 23.3 H, Absolute Lymphs (auto) 1.55, Nucleated RBC % 0, Diff Path Review November, Sodium 133 L, Potassium 4.5, Chloride 101, Carbon Dioxide 28.0, Anion Gap 4 L, BUN 12, Creatinine 1.06 H, Estim Creat Clear Calc 51.17, Est GFR (MDRD) Af Amer 69, Est GFR (MDRD) Non-Af 57 L, BUN/Creatinine Ratio 11.3, Glucose 98, Calcium 8.0 L Micro: Microbiology 02/08/23 15:01 Blood Culture (Wb) - Left Forearm Blood Culture - Preliminary 02/08/23 14:06 Blood Culture (Wb) - Anticubital Left Blood Culture - Preliminary Radiography Diagnostic Testing: Radiology Impression Abdomen/Pelvis CT 02/08/23 12:29 IMPRESSION: Mild degree of right perinephric stranding and mild right hydronephrosis although no obstructive calculus is seen at this time. A recently passed calculus cannot be ruled out. Stable nonobstructive crackers and the left kidney. Small hiatal hernia with the stable thickening of the distal esophagus. Electronically Signed: Ayaz Parker MD at 13:52 EDT , Physical Exam Narrative Seen and examined. Discussed with nursing staff. Patient constantly asking for morphine every 3 hours. History of substance use but patient herself denies opioid including prescribed or street medication, fentanyl, crack cocaine or other substance use. Patient has history of marijuana use. She states her son is an opioid addict. General: Alert, Oriented x3, Cooperative HEENT: Atraumatic, PERRLA, EOMI, Normocephalic Oral: Oral mucosa moist. No Gingival or Mucosal Lesions/ Ulcerations Neck: Supple, No JVD, Negative Carotid Bruits Lungs: Air entry diminished in bilateral lung bases. No crepitation/rhonchi Cardiovascular: Regular rate, Regular Rhythm, Normal S1, Normal S2, No murmurs Abdomen: Bowel Sounds Present, Soft, tenderness present over right lumbar area, right umbilical area. : Mild tenderness present over right renal angle and suprapubic bladder. Left renal angle no tenderness. Extremities: No edema, Capillary Refill Less than 3 Seconds Skin: Bilateral lower legs purplish, venous lace like Network chronic in nature. Musculoskeletal: No Tenderness to Palpation of Joints or Extremities Neurological: Cranial nerves II-XII grossly intact, DTR 2+/4 and Symmetrical, Neuro grossly intact Psych/Mental Status: Looks depressed. Assessment & Plan Assessment/Plan (1) Acute pyelonephritis: PLAN: Plan This is a 57-year-old female came to ER for right flank pain and mild blood mixed urine, hematuria. 1. Right-sided pyelonephritis: Patient is being admitted in MedSurg floor. She is not having sinus symptoms suggestive of sepsis. No recordable fever. No hypotension. Labs not suggestive of acute sepsis related organ dysfunction. Vikash huff has leukocytosis, mild tachycardia. UA suggestive of pyuria, RBC more than 100 cells, LE positive, nitrite positive. Patient was given IV Zosyn in ED. Started on IV ceftriaxone 2 g daily. Blood and urine culture ordered. CT abdomen shows right perinephric stranding and mild right hydronephrosis although no obstructive calculus or uropathy seen. Stable 3 cm nonobstructive calculus in the midportion of left kidney. 02/09: No fever. Patient still has right flank pain. Preliminary blood culture x2, anaerobic and anaerobic shows gram-negative sarah. Patient with increasing leukocytosis 27,000. I will broaden the antibiotic to IV cefepime to cover Pseudomonas. Mild hyponatremia. Sodium 133. Potassium normal. IV fluid normal saline +20 mEq potassium chloride. 2. COPD: Clinically stable. Continue DuoNeb every 6 hours, albuterol PRN. Incentive spirometry. 3. History of hypertension: Blood pressure is controlled. 4.. Current smoker, smokes cigarettes. Quit alcohol and substance use, history of polysubstance use in the past: Nicotine patch ordered. 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 5. Anxiety and depression history of suicidal attempt more than 10 years ago: Patient states she is not on an antidepression medication. 02/09: Patient denies substance use but takes marijuana. Started on paroxetine. Living will/advanced directive/end of life care: Patient does not have living will or advanced directive or designated power of employment law attorney for health. After discussion of benefits/risks procedures involved with full code, DNR CC arrest and DNR CC, the patient opted for full code. Patient does want artificial life support including intubation, tube feed, ventilator and/chest compression, central venous catheter, vasopressor and DC shock if needed Total time spent in [id number] encounter in discussion of advanced directive 17 minutes. Microbiology Past 72 Hours 02/08/23 15:01 Blood Culture (Wb) - Left Forearm Blood Culture - Preliminary 02/08/23 14:06 Blood Culture (Wb) - Anticubital Left Blood Culture - Preliminary Laboratory Results 02/08/23 12:45: WBC 24.7 H, RBC 5.15, Hgb 14.4, Hct 46.1, MCV 89.5, MCH 28.0, MCHC 31.2 L, RDW Std Deviation 44.7 H, RDW Coeff of Madhu 13.7, Plt Count 388, MPV 9.4, Immature Gran % (Auto) 0.800, Neut % (Auto) 82.0 H, Lymph % (Auto) 8.4 L, [place] % (Auto) 8.3, Eos % (Auto) 0.1, Baso % (Auto) 0.4, Absolute Neuts (auto) 20.3 H, Absolute Lymphs (auto) 2.07, Nucleated RBC % 0, Differential Comment SCANNED, Diff Path Review November foll, Sodium 134 L, Potassium 3.7, Chloride 100, Carbon Dioxide 31.0, Anion Gap 3 L, BUN 11, Creatinine 0.98, Est GFR (MDRD) Af Amer 75, Est GFR (MDRD) Non-Af 62, BUN/Creatinine Ratio 11.2, Glucose 90, Calcium 8.8, Magnesium 1.8, Total Bilirubin 1.30 H, AST 28, ALT 18, Alkaline Phosphatase 124 H, Total Protein 7.3, Albumin 3.1 L, Globulin 4.2, Albumin/Globulin Ratio 0.7 L, Lipase 14 02/08/23 13:00: Urine Color Brown, Urine Clarity Cloudy, Urine pH 6.5, Ur Specific [place] 1.015, Urine Protein 100 H, Urine Glucose (UA) Normal, Urine Ketones 50 H, Urine Occult Blood 250 H, Urine Nitrite Positive H, Urine Bilirubin 1 H, Urine Urobilinogen 4 H, Ur Leukocyte Esterase 500 H, Urine RBC > 100 SEEN, Urine WBC >100 SEEN, Ur Squamous Epith Cells 0 SEEN, Urine Bacteria 1+, Urine Mucus 0 SEEN 02/08/23 14:06: Lactic Acid 0.9 02/09/23 05:45: WBC 27.2 H, RBC 4.61, Hgb 13.0, Hct 42.1, MCV 91.3, MCH 28.2, MCHC 30.9 L, RDW Std Deviation 47.1 H, RDW Coeff of Madhu 13.9, Plt Count 338, MPV 9.8, Immature Gran % (Auto) 1.800 H, Neut % (Auto) 85.4 H, Lymph % (Auto) 5.7 L, [place] % (Auto) 6.7, Eos % (Auto) 0.1, Baso % (Auto) 0.3, Absolute Neuts (auto) 23.3 H, Absolute Lymphs (auto) 1.55, Nucleated RBC % 0, Diff Path Review November foll, Sodium 133 L, Potassium 4.5, Chloride 101, Carbon Dioxide 28.0, Anion Gap 4 L, BUN 12, Creatinine 1.06 H, Estim Creat Clear Calc 51.17, Est GFR (MDRD) Af Amer 69, Est GFR (MDRD) Non-Af 57 L, BUN/Creatinine Ratio 11.3, Glucose 98, Calcium 8.0 L Clinical Impression(s) from Imaging Studies Abdomen/Pelvis CT 02/08/23 12:29 IMPRESSION: Mild degree of right perinephric stranding and mild right hydronephrosis although no obstructive calculus is seen at this time. A recently passed calculus cannot be ruled out. Stable nonobstructive crackers and the left kidney. Small hiatal hernia with the stable thickening of the distal esophagus. Charges/Coding Visit Charges Inpatient E&M: 83968 Subs Hosp L2
--- NOTE | 2023-02-09 11:55 | CASEMGMT ---
RADHA OGDEN Assessment: Face to Face with pt for initial transition planning/care coordination assessment. RN ALIN introduced self and role at [facility], pt voices understanding and consents to assessment. Pt is A/O x4 and answers all questions appropriately at this time. Pt sitting up in bed with oxygen on in no distress. Care providers, pharmacy, and demographics verified/updated. Admitting Dx: pyelonephritis PCP:Blaise Specialists:Cruzito Salazar pulm Preferred Pharmacy: [facility] Insurance: [facility] Prescription Benefit: yes LNOK: Maritza Light, sister Living Arrangements: Pt is staying at friends homes as she currently is homeless. Address listed is where she would like her mail to go to and a previous address. Transportation: Pt drives self but currently does not have a car. DME/HHC/SNF: Pt has a nebulizer at home. Pt has had HHC in the past but is unsure from which agency. Pt denies SNF stays. Pt plans on continuing to stay with friends. SW to provide resourcces. Pt states no further concerns/needs. CM to follow. Advised pt to ask CM if any further question/concerns/needs arise, voices understanding. Pt Goal: Continue to stay with friends Plan: Continue to stay with friends.
--- NOTE | 2023-02-09 11:58 | US_ITS ---
STUDY: RENAL ULTRASOUND - COMPLETE REASON FOR EXAM: Female, 57 years old. Right pyelonephritis, Right flank pain TECHNIQUE: Ultrasound evaluation of the kidneys was performed with real-time and static garcia-scale imaging. COMPARISON: None. FINDINGS: RIGHT KIDNEY: Normal location of the right kidney, which is normal in size. The right kidney measures 11.9 cm x 4.8 cm x 4.8 cm. There is a normal cortex of the right kidney. The renal cortex measures 1.4 cm. There is no right renal mass or cyst. There are no right renal calculi. There is no right hydronephrosis. DISTAL RIGHT URETER: There is non-visualization of the distal right ureter. There is no demonstrated right ureterovesical junction calculus. There is no demonstrated right ureteral jet. LEFT KIDNEY: Normal location of the left kidney, which is normal in size. The left kidney measures 11.3 cm x 6.0 cm x 6.0 cm. There is a normal cortex of the left kidney. The renal cortex measures 1.5 cm. There is no left renal mass or cyst. There are no left renal calculi. There is no left hydronephrosis. DISTAL LEFT URETER: There is non-visualization of the distal left ureter. There is no demonstrated left ureterovesical junction calculus. There is no demonstrated left ureteral jet. BLADDER: The distended urinary bladder has a volume of 177.6 ml. There is a normal wall thickness of the distended urinary bladder. There is no demonstrated mass within the urinary bladder. There are no demonstrated bladder calculi. US/Kidney and Bladder IMPRESSION: Normal ultrasound of the kidneys and urinary bladder. Electronically Signed: Ayaz Parker MD at 14:59 EDT ,
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
[2023-02-09] MEDS: 0.9% Saline Lock 10 ML Syringe IV (22:04)
[2023-02-10] VITALS (8 sets, daily range): BP systolic 124–146; BP diastolic 58–91; PULSE 90–110; RESP 12–22; TEMP 36.7–37.3; O2SAT 91–95; BMI 29.2
[2023-02-10] MEDS: oxyCODONE 5 MG Tablet PO ×3 (00:01→22:09)
[2023-02-10] MEDS: Albuterol 2.5 MG/3 ML VIAL.NEB. INHALATION (04:50)
[2023-02-10 06:10] LABS: Absolute Lymphocyte Count 1.19 X10^3/uL (0.83-4.51); Basophil# 0.03 X10^3/uL; Basophil% 0.2 % (0-1); Eosinophil# 0.08 X10^3/uL; Eosinophils% 0.5 % (0-5); Hematocrit 37.7 % (37-47); Hemoglobin 11.4 g/dL (12.0-15.0); Lymphocyte # 1.19 X10^3/ul (0.83-4.51); Lymphocyte % 6.8 % (19-41); Mean Corp Hgb Conc 30.2 g/dL (32-36); Mean Corpuscular Hgb 27.8 pg (27.0-32.0); Mean Platelet Vol. 10.1 fl (6.2-12.0); Monocyte% 6.3 % (0-10); NRBC Flagged by Analyzer 0 % (0-5); Neutrophil # 14.97 X10^3/uL (2.7-7.7); Neutrophil % 85.6 % (47-70); Platelet Count 318 K/mm3 (150-450); RBC Distribution Width CV 13.8 % (11.6-14.6); RBC Distribution Width SD 46.8 fl (35.1-43.9); White Blood Count 17.5 K/mm3 (4.4-11.0)
--- NOTE | 2023-02-10 07:21 | PN.HOSP_ITS ---
Reason for Visit Reason for Visit: Diagnoses Acute pyelonephritis (02/08/23) Subjective Subjective Follow-up for right-sided perinephritis. Objective Data Objective Data Vital Signs: Vital Signs Temp Pulse Resp BP Pulse Ox O2 Del Method O2 Flow Rate 98.5 F 110 H 16 126/58 H 95 Nasal Cannula 1 02/10/23 02:00 02/10/23 04:50 02/10/23 04:50 02/10/23 02:00 02/10/23 02:00 02/10/23 02:19 02/10/23 02:19 Oxygen Flow Rate (L/min) 1 Oxygen Delivery Method Nasal Cannula Weight: 171 lb 1.259 oz Body Mass Index (BMI) 29.2 Intake & Output: Intake and Output for Last 24 Hours 02/08/23 02/09/23 02/10/23 23:59 23:59 23:59 Intake Total 1648.33 / 1648.33 2360 / 2360 400 / 400 Output Total 2200 / 2200 Balance 1648.33 / 1648.33 160 / 160 400 / 400 Lab / Micro Data 02/10/23 05:13 02/10/23 05:13 Labs: Laboratory Results - last 24 hr 02/10/23 05:13: WBC 17.5 H, RBC 4.10 L, Hgb 11.4 L, Hct 37.7, MCV 92.0, MCH 27.8, MCHC 30.2 L, RDW Std Deviation 46.8 H, RDW Coeff of Madhu 13.8, Plt Count 318, MPV 10.1, Immature Gran % (Auto) 0.600, Neut % (Auto) 85.6 H, Lymph % (Auto) 6.8 L, [place] % (Auto) 6.3, Eos % (Auto) 0.5, Baso % (Auto) 0.2, Absolute Neuts (auto) 15.0 H, Absolute Lymphs (auto) 1.19, Nucleated RBC % 0 Micro: Microbiology 02/08/23 15:01 Blood Culture (Wb) - Left Forearm Blood Culture - Preliminary GNR lactose brake specialist 02/08/23 14:06 Blood Culture (Wb) - Anticubital Left Blood Culture - Preliminary GNR lactose brake specialist Radiography Diagnostic Testing: Radiology Impression Renal Ultrasound 02/09/23 11:58 IMPRESSION: Normal ultrasound of the kidneys and urinary bladder. Electronically Signed: Ayaz Parker MD at 14:59 EDT , Physical Exam Narrative Seen and examined. Discussed with nursing staff. Patient is still lethargic flank pain although getting better. Discussed the ultrasound and CT imaging findings with the patient. Ultrasound reported normal. Urine culture and blood culture sensitivity pending. Physical exam General: Alert, Oriented x3, Cooperative HEENT: Atraumatic, PERRLA, EOMI, Normocephalic Oral: Oral mucosa moist. No Gingival or Mucosal Lesions/ Ulcerations Neck: Supple, No JVD, Negative Carotid Bruits Lungs: Air entry diminished in bilateral lung bases. No crepitation/rhonchi Cardiovascular: Regular rate, Regular Rhythm, Normal S1, Normal S2, No murmurs Abdomen: Bowel Sounds Present, Soft, tenderness present over right lumbar area, right umbilical area. : Mild tenderness present over right renal angle and suprapubic bladder. Left renal angle no tenderness. Extremities: No edema, Capillary Refill Less than 3 Seconds Skin: Bilateral lower legs purplish, venous lace like Network chronic in nature. Musculoskeletal: No Tenderness to Palpation of Joints or Extremities Neurological: Cranial nerves II-XII grossly intact, DTR 2+/4 and Symmetrical, Neuro grossly intact Psych/Mental Status: Looks depressed. Assessment & Plan Assessment/Plan (1) Acute pyelonephritis: PLAN: Plan This is a 57-year-old female came to ER for right flank pain and mild blood mixed urine, hematuria. 1. Right-sided pyelonephritis: Patient is being admitted in MedSurg floor. She is not having sinus symptoms suggestive of sepsis. No recordable fever. No hypotension. Labs not suggestive of acute sepsis related organ dysfunction. Patient has leukocytosis, mild tachycardia. UA suggestive of pyuria, RBC more than 100 cells, LE positive, nitrite positive. Patient was given IV Zosyn in ED. Started on IV ceftriaxone 2 g daily. Blood and urine culture ordered. CT abdomen shows right perinephric stranding and mild right hydronephrosis although no obstructive calculus or uropathy seen. Stable 3 cm nonobstructive calculus in the midportion of left kidney. 02/09: No fever. Patient still has right flank pain. Preliminary blood culture x2, anaerobic and anaerobic shows gram-negative sarah. Patient with increasing leukocytosis 27,000. I will broaden the antibiotic to IV cefepime to cover Pseudomonas. 02/10: Prelim urine culture reported patient E. coli more than 100,000 colonies. Sensitivity report pending. Ultrasound reviewed and reported normal kidney and bladder ultrasound. Anticipate surgery tomorrow morning and patient can be discharged. Patient still has significant leukocytosis although gradually improving. Mild hyponatremia. Sodium 133. Potassium normal. IV fluid normal saline +20 mEq potassium chloride. 02/10: Serum sodium 134. Potassium normal. 2. COPD: Clinically stable. Continue DuoNeb every 6 hours, albuterol PRN. I ncentive spirometry. 3. History of hypertension: Blood pressure is controlled. 4.. Current smoker, smokes cigarettes. Quit alcohol and substance use, history of polysubstance use in the past: Nicotine patch ordered. 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 5. Anxiety and depression history of suicidal attempt more than 10 years ago: Patient states she is not on an antidepression medication. 02/09: Patient denies substance use but takes marijuana. Started on paroxetine. Living will/advanced directive/end of life care: Patient does not have living will or advanced directive or designated power of trademark attorney for health. After discussion of benefits/risks procedures involved with full code, DNR CC arrest and DNR CC, the patient opted for full code. Patient does want artificial life support including intubation, tube feed, ventilator and/chest compression, central venous catheter, vasopressor and DC shock if needed Total time spent in [id number] encounter in discussion of advanced directive 17 minutes. Microbiology Past 72 Hours 02/08/23 13:00 Urine, Clean Catch Urine Culture - Preliminary Presumptive E. coli 02/08/23 15:01 Blood Culture (Wb) - Left Forearm Blood Culture - Preliminary GNR lactose brake specialist 02/08/23 14:06 Blood Culture (Wb) - Anticubital Left Blood Culture - Preliminary GNR lactose brake specialist Laboratory Results 02/08/23 12:45: Diff Path Review Reviewed 02/09/23 05:45: Diff Path Review Reviewed 02/10/23 05:13: WBC 17.5 H, RBC 4.10 L, Hgb 11.4 L, Hct 37.7, MCV 92.0, MCH 27.8, MCHC 30.2 L, RDW Std Deviation 46.8 H, RDW Coeff of Madhu 13.8, Plt Count 318, MPV 10.1, Immature Gran % (Auto) 0.600, Neut % (Auto) 85.6 H, Lymph % (Auto) 6.8 L, [place] % (Auto) 6.3, Eos % (Auto) 0.5, Baso % (Auto) 0.2, Absolute Neuts (auto) 15.0 H, Absolute Lymphs (auto) 1.19, Nucleated RBC % 0, Sodium 134 L, Potassium 3.8, Chloride 101, Carbon Dioxide 30.0, Anion Gap 3 L, BUN 12, Creatinine 0.92, Estim Creat Clear Calc 58.96, Est GFR (MDRD) Af Amer 81, Est GFR (MDRD) Non-Af 67, BUN/Creatinine Ratio 13.1, Glucose 113 H, Calcium 8.6 Clinical Impression(s) from Imaging Studies Abdomen/Pelvis CT 02/08/23 12:29 IMPRESSION: Mild degree of right perinephric stranding and mild right hydronephrosis although no obstructive calculus is seen at this time. A recently passed calculus cannot be ruled out. Stable nonobstructive crackers and the left kidney. Small hiatal hernia with the stable thickening of the distal esophagus. Renal Ultrasound 02/09/23 11:58 IMPRESSION: Normal ultrasound of the kidneys and urinary bladder. Electronically Signed: Ayaz Parker MD at 14:59 EDT , Charges/Coding Visit Charges Inpatient E&M: 09826 Subs Hosp L2
[2023-02-10 07:31] LABS: Anion Gap 3 (5-15); BUN 12 mg/dL (7-18); BUN/Creat Ratio 13.1 RATIO (10-20); Calcium,Total 8.6 mg/dL (8.5-10.1); Chloride 101 mmol/L (98-107); Creatinine, Serum 0.92 mg/dL (0.55-1.02); EST Glomerular Filtration Rate 67 mL/min (>60); Est Glom Filt Rate - Afr Amer 81 mL/min (>60); Estimated Creatinine Clearance 58.96 ml/min; Glucose 113 mg/dL (74-106); Potassium 3.8 mmol/L (3.5-5.1); Sodium Level 134 mmol/L (136-145)
[2023-02-10] MEDS: Ipratropium/Albuterol Sulfate 3 ML AMPUL.NEB INHALATION ×2 (07:41→17:51)
[2023-02-10 10:10] LABS: Pathologist Review Reviewed
[2023-02-10 10:12] LABS: Pathologist Review Reviewed
[2023-02-10] MEDS: PARoxetine 10 MG Tablet PO (10:56)
[2023-02-10] MEDS: Enoxaparin 40 MG/0.4 ML Syringe SC (10:56)
--- NOTE | 2023-02-10 16:02 | CASEMGMT ---
Social Work SW met with patient and introduced herself and role as [facility] SW. Patient eating and requesting SW come back later. SW returned to patient's room but patient was sleeping. SW returned again and was able to wake up patient. SW reviewed patient's discharge plan to go to [facility] at discharge, patient verified plan, however, patient reports she was not feeling up to calling the detention as she is too tired. SW reviewed plan with care team, patient should be ready to D/C tomorrow. SW contacted [facility] and provided an update. Plan: [facility], possibly using [facility] van to transport OLEKSANDR Amador
[2023-02-10] MEDS: Acetaminophen 325 MG Tablet 650 MG PO (22:09)
[2023-02-11 04:10] VITALS: BP 130/82; PULSE 86; RESP 18; TEMP 36.4; O2SAT 93
[2023-02-11 05:40] VITALS: BMI 28.3
[2023-02-11 05:45] VITALS: BMI 28.3
[2023-02-11 06:00] LABS: Absolute Lymphocyte Count 1.85 X10^3/uL (0.83-4.51); Absolute Neutrophil Count 7.8 X10^3/uL (2.0-7.7); Basophil# 0.05 X10^3/uL; Basophil% 0.4 % (0-1); Eosinophil# 0.19 X10^3/uL; Eosinophils% 1.7 % (0-5); Hematocrit 38.3 % (37-47); Hemoglobin 12.2 g/dL (12.0-15.0); Lymphocyte # 1.85 X10^3/ul (0.83-4.51); Lymphocyte % 16.4 % (19-41); Mean Corp Hgb Conc 31.9 g/dL (32-36); Mean Corpuscular Hgb 28.3 pg (27.0-32.0); Mean Corpuscular Volume 88.9 fL (81-99); Mean Platelet Vol. 9.7 fl (6.2-12.0); Monocyte# 1.36 X10^3/uL; NRBC Flagged by Analyzer 0 % (0-5); Neutrophil # 7.78 X10^3/uL (2.7-7.7); Neutrophil % 68.8 % (47-70); Platelet Count 381 K/mm3 (150-450); RBC Distribution Width CV 13.7 % (11.6-14.6); Red Blood Count 4.31 M/mm3 (4.2-5.4); White Blood Count 11.3 K/mm3 (4.4-11.0)
[2023-02-11 06:29] LABS: Anion Gap 5 (5-15); BUN 9 mg/dL (7-18); Calcium,Total 8.9 mg/dL (8.5-10.1); Chloride 103 mmol/L (98-107); Creatinine, Serum 0.75 mg/dL (0.55-1.02); EST Glomerular Filtration Rate 85 mL/min (>60); Est Glom Filt Rate - Afr Amer 102 mL/min (>60); Estimated Creatinine Clearance 72.33 ml/min; Glucose 98 mg/dL (74-106); Potassium 3.4 mmol/L (3.5-5.1); Sodium Level 138 mmol/L (136-145)
[2023-02-11] MEDS: Ipratropium/Albuterol Sulfate 3 ML AMPUL.NEB INHALATION (06:36)
[2023-02-11 06:37] VITALS: PULSE 82; RESP 20; O2SAT 91
--- NOTE | 2023-02-11 07:48 | DCINST_ITS ---
Discharge Instructions Follow Up Care Test Results: Test results from this visit will be discussed in further detail at your follow- up appointment, if applicable. Discharge Plan Admission Admit Date/Time: 02/08/23 15:02 Primary Reason for Your Visit: right sided pyelonephritis Attending Provider: Jama Bustamante Primary Care Provider: Steven Welsh Discharge Orders/Prescriptions Prescriptions: New ciprofloxacin HCl [Cipro] 500 mg tablet 500 mg PO BID 7 Days Qty: 14 0RF Continued albuterol sulfate 2.5 MG/3 ML solution for nebulization 2.5 mg INHALATION Q4H PRN Qty: 25 0RF Rx Instructions: Use q4 hours and PRN for wheezing albuterol sulfate [Ventolin HFA] 18 GM HFA aerosol inhaler 1 - 2 puff inhalation PRN PRN (Reason: Sob &/Or Wheezing) Patient Comments: inhale 2 puffs by mouth every 4 hours as directed if needed for wheezing or shortness of breath epinephrine 0.3 MG syringe 0.3 mg IM X1 Qty: 1 1RF ipratropium-albuterol 0.5 mg-3 mg(2.5 mg base)/3 mL solution for nebulization 3 ml inhalation BID Patient Comments: inhale contents of 1 vial in nebulizer as directed every 6 hours ... (REFER TO PRESCRIPTION NOTES). Referrals / Follow Up: Stevne Welsh MD [Primary Care Provider] - Etelvina Lisa MD [Med Staff - Active Staff] - Within 2 Weeks (Acute pyelonephritis) Disposition Disposition (needs filled in before D/C Order can be placed): Home, Self Care
--- NOTE | 2023-02-11 08:01 | DCINST_ITS ---
Discharge Instructions Diet Discharge Diet: No restrictions Activity Discharge Activity: Return to Normal Activity Weight Bearing Status: Weight bearing as tolerated Dressing / Incision Call your doctor if you observe: Fever of 101 or Higher, Coldness, Increased Pain, Numbness or Tingling, Change in Color, Inability to urinate, Inability to have a bowel movement, Using more than 1 pad per hour, Shortness of breath, Dizziness, Fainting spells, Swelling in the ankles, Chest pain, Prolonged hiccupping, Increased palpitations (irregular heartbeat) and Calf discomfort Follow Up Care When: IN 2 WEEKS Test Results: Test results from this visit will be discussed in further detail at your follow- up appointment, if applicable. Discharge Plan Admission Admit Date/Time: 02/08/23 15:02 Primary Reason for Your Visit: right sided pyelonephritis Attending Provider: Jama Bustamante Primary Care Provider: Steven Welsh Discharge Orders/Prescriptions Prescriptions: New ciprofloxacin HCl [Cipro] 500 mg tablet 500 mg PO BID 7 Days Qty: 14 0RF Continued albuterol sulfate 2.5 MG/3 ML solution for nebulization 2.5 mg INHALATION Q4H PRN Qty: 25 0RF Rx Instructions: Use q4 hours and PRN for wheezing albuterol sulfate [Ventolin HFA] 18 GM HFA aerosol inhaler 1 - 2 puff inhalation PRN PRN (Reason: Sob &/Or Wheezing) Patient Comments: inhale 2 puffs by mouth every 4 hours as directed if needed for wheezing or shortness of breath epinephrine 0.3 MG syringe 0.3 mg IM X1 Qty: 1 1RF ipratropium-albuterol 0.5 mg-3 mg(2.5 mg base)/3 mL solution for nebulization 3 ml inhalation BID Patient Comments: inhale contents of 1 vial in nebulizer as directed every 6 hours ... (REFER TO PRESCRIPTION NOTES). Referrals / Follow Up: Etelvina Lisa MD [Med Staff - Active Staff] - Within 2 Weeks (Acute pyelonephritis) Steven Welsh MD [Primary Care Provider] - Disposition Disposition (needs filled in before D/C Order can be placed): Home, Self Care
--- NOTE | 2023-02-11 08:34 | PCM.DC.SUM ---
Providers Date of Admission: 02/08/23 Date of Discharge: 02/11/23 Primary Care Physician: Dr. Steven Welsh MD Reason For Visit: PYELONEPHRITIS Diagnosis Discharge Diagnosis (1) Acute pyelonephritis: Status: Acute Code(s): N10 - Acute pyelonephritis Plan This is a 57-year-old female came to ER for right flank pain and mild blood mixed urine, hematuria. 1. Right-sided pyelonephritis: [facility] She is not having sinus symptoms suggestive of sepsis. No recordable fever. No hypotension. Labs not suggestive of acute sepsis related organ dysfunction. Patient has leukocytosis, mild tachycardia. UA suggestive of pyuria, RBC more than 100 cells, LE positive, nitrite positive. Patient was given IV Zosyn in ED. Started on IV ceftriaxone 2 g daily. Blood and urine culture ordered. CT abdomen shows right perinephric stranding and mild right hydronephrosis although no obstructive calculus or uropathy seen. Stable 3 cm nonobstructive calculus in the midportion of left kidney. 02/09: No fever. Patient still has right flank pain. Preliminary blood culture x2, anaerobic and anaerobic shows gram-negative sarah. Patient with increasing leukocytosis 27,000. I will broaden the antibiotic to IV cefepime to cover Pseudomonas. 02/10: Prelim urine culture reported patient E. coli more than 100,000 colonies. Sensitivity report pending. Ultrasound reviewed and reported normal kidney and bladder ultrasound. Anticipate surgery tomorrow morning and patient can be discharged. Patient still has significant leukocytosis although gradually improving. 02/11: Urine culture sensitivity available. E. coli more than 100,000 colonies, ESBL negative. Sensitive to fluoroquinolone, ceftriaxone but resistant to Bactrim. Leukocytosis improved and almost resolved. Patient is discharged on ciprofloxacin 500 mg twice daily for 7 more days to complete total of 10 days. Outpatient referral to Dr. Lisa for pyelonephritis Mild hyponatremia. Sodium 133. Potassium normal. IV fluid normal saline +20 mEq potassium chloride. 02/10: Serum sodium 134. Potassium normal. 02/10 mild hypokalemia, potassium 3.4. Potassium replaced 2. COPD: Clinically stable. Continue DuoNeb every 6 hours, albuterol PRN. Incentive spirometry. 3. History of hypertension: Blood pressure is controlled. 4.. Current smoker, smokes cigarettes. Quit alcohol and substance use, history of polysubstance use in the past: Nicotine patch ordered. 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 Salazar handle attacher. 5. Anxiety and depression history of suicidal attempt more than 10 years ago: Patient states she is not on an antidepression medication. 02/09: Patient denies substance use but takes marijuana. Started on paroxetine. 02/10 follow-up with PCP. Living will/advanced directive/end of life care: Patient does not have living will or advanced directive or designated power of nut tapper for health. After discussion of benefits/risks procedures involved with full code, DNR CC arrest and DNR CC, the patient opted for full code. 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 coli Laboratory Results 02/08/23 12:45: Diff Path Review Reviewed 02/09/23 05:45: Diff Path Review Reviewed 02/11/23 05:25: WBC 11.3 H, RBC 4.31, Hgb 12.2, Hct 38.3, MCV 88.9, MCH 28.3, MCHC 31.9 L D, RDW Std Deviation 45.0 H, RDW Coeff of Madhu 13.7, Plt Count 381, MPV 9.7, Immature Gran % (Auto) 0.700, Neut % (Auto) 68.8, Lymph % (Auto) 16.4 L, [place] % (Auto) 12.0 H, Eos % (Auto) 1.7, Baso % (Auto) 0.4, Absolute Neuts (auto) 7.8 H, Absolute Lymphs (auto) 1.85, Nucleated RBC % 0, Sodium 138, Potassium 3.4 L, Chloride 103, Carbon Dioxide 30.0, Anion Gap 5, BUN 9, Creatinine 0.75, Estim Creat Clear Calc 72.33, Est GFR (MDRD) Af Amer 102, Est GFR (MDRD) Non-Af 85, BUN/Creatinine Ratio 12.0, Glucose 98, Calcium 8.9 Clinical Impression(s) from Imaging Studies Abdomen/Pelvis CT 02/08/23 12:29 IMPRESSION: Mild degree of right perinephric stranding and mild right hydronephrosis although no obstructive calculus is seen at this time. A recently passed calculus cannot be ruled out. Stable nonobstructive crackers and the left kidney. Small hiatal hernia with the stable thickening of the distal esophagus. Renal Ultrasound 02/09/23 11:58 IMPRESSION: Normal ultrasound of the kidneys and urinary bladder. Electronically Signed: Ayaz Parker MD at 14:59 EDT , Medications at Discharge Home Medications albuterol sulfate 2.5 mg/3 mL (0.083 %) solution for nebulization 2.5 mg (3 mL) inhalation Q4H PRN #25 vials 10/20/17 albuterol sulfate 90 mcg/actuation aerosol inhaler (Ventolin HFA) 1 - 2 puff inhalation PRN PRN Sob &/Or Wheezing 05/18/18 epinephrine 0.3 mg/0.3 mL injection, auto-injector 0.3 mg (0.3 mL) IM X1 ##1 01/21/19 ipratropium 0.5 mg-albuterol 3 mg (2.5 mg base)/3 mL nebulization soln 3 ml inhalation BID 08/31/21 ciprofloxacin HCl 500 mg tablet (Cipro) 500 mg PO BID 7 days #14 tabs 02/11/23 Physical Exam Narrative Seen and examined. Discussed with nursing staff. Patient is still lethargic flank pain although getting better. Discussed the ultrasound and CT imaging findings with the patient. Ultrasound reported normal. Urine culture and blood culture sensitivity pending. Physical exam General: Alert, Oriented x3, Cooperative HEENT: Atraumatic, PERRLA, EOMI, Normocephalic Oral: Oral mucosa moist. No Gingival or Mucosal Lesions/ Ulcerations Neck: Supple, No JVD, Negative Carotid Bruits Lungs: Air entry diminished in bilateral lung bases. No crepitation/rhonchi Cardiovascular: Regular rate, Regular Rhythm, Normal S1, Normal S2, No murmurs Abdomen: Bowel Sounds Present, Soft, tenderness present over right lumbar area, right umbilical area. : Mild tenderness present over right renal angle, much improved. No left renal angle tenderness. No suprapubic tenderness. Extremities: No edema, Capillary Refill Less than 3 Seconds Skin: Bilateral lower legs purplish, venous lace like Network chronic in nature. Musculoskeletal: No Tenderness to Palpation of Joints or Extremities Neurological: Cranial nerves II-XII grossly intact, DTR 2+/4 and Symmetrical, Neuro grossly intact Psych/Mental Status: Looks depressed. Weight / BMI Weight Weight: 166 lb 3.657 oz Body Mass Index (BMI) 28.3 ABG / Lab / Microbiology Data 02/11/23 05:25 02/11/23 05:25 Laboratory: Laboratory Results - last 24 hr 02/08/23 12:45: Diff Path Review Reviewed 02/09/23 05:45: Diff Path Review Reviewed 02/11/23 05:25: WBC 11.3 H, RBC 4.31, Hgb 12.2, Hct 38.3, MCV 88.9, MCH 28.3, MCHC 31.9 L D, RDW Std Deviation 45.0 H, RDW Coeff of Madhu 13.7, Plt Count 381, MPV 9.7, Immature Gran % (Auto) 0.700, Neut % (Auto) 68.8, Lymph % (Auto) 16.4 L, [place] % (Auto) 12.0 H, Eos % (Auto) 1.7, Baso % (Auto) 0.4, Absolute Neuts (auto) 7.8 H, Absolute Lymphs (auto) 1.85, Nucleated RBC % 0, Sodium 138, Potassium 3.4 L, Chloride 103, Carbon Dioxide 30.0, Anion Gap 5, BUN 9, Creatinine 0.75, Estim Creat Clear Calc 72.33, Est GFR (MDRD) Af Amer 102, Est GFR (MDRD) Non-Af 85, BUN/Creatinine Ratio 12.0, Glucose 98, Calcium 8.9 Microbiology: Microbiology 02/08/23 13:00 Urine, Clean Catch Urine Culture - Final Presumptive E. 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 02/08/23 14:06 Blood Culture (Wb) - Anticubital Left Blood Culture - Preliminary GNR lactose exhaust machine operator Meaningful Use Info Meaningful Use Diagnoses (Choose all that apply): None applicable Discharge Plan Admission Admit Date/Time: 02/08/23 15:02 Primary Reason for Your Visit: right sided pyelonephritis Attending Provider: Jama Bustamante Primary Care Provider: Steven Welsh Discharge Orders/Prescriptions Prescriptions: New ciprofloxacin HCl [Cipro] 500 mg tablet 500 mg PO BID 7 Days Qty: 14 0RF Continued albuterol sulfate 2.5 MG/3 ML solution for nebulization 2.5 mg INHALATION Q4H PRN Qty: 25 0RF Rx Instructions: Use q4 hours and PRN for wheezing albuterol sulfate [Ventolin HFA] 18 GM HFA aerosol inhaler 1 - 2 puff inhalation PRN PRN (Reason: Sob &/Or Wheezing) Patient Comments: inhale 2 puffs by mouth every 4 hours as directed if needed for wheezing or shortness of breath epinephrine 0.3 MG syringe 0.3 mg IM X1 Qty: 1 1RF ipratropium-albuterol 0.5 mg-3 mg(2.5 mg base)/3 mL solution for nebulization 3 ml inhalation BID Patient Comments: inhale contents of 1 vial in nebulizer as directed every 6 hours ... (REFER TO PRESCRIPTION NOTES). Referrals / Follow Up: Etelvina Lisa MD [Med Staff - Active Staff] - Within 2 Weeks (Acute pyelonephritis) Steevn Welsh MD [Primary Care Provider] - Disposition Disposition (needs filled in before D/C Order can be placed): Home, Self Care Charges/Coding Visit Charges Inpatient E&M: 70390 Disch Hosp >30min
[2023-02-11 09:00] VITALS: BP 132/89; PULSE 89; RESP 16; TEMP 36.6; O2SAT 96
[2023-02-11] MEDS: 0.9% Saline Lock 10 ML Syringe IV (09:12)
--- NOTE | 2023-02-11 09:41 | CASEMGMT ---
Social Work Pt is ready for discharge. SW met with pt who confirms she wishes to go to [facility]. SW assisted pt in calling [facility] and they are able to accept pt today. Transportation arranged with [facility] for 1000 greens picker. Pt and pt's nurse made aware and agreeable to dischrage plan. GUERA Wasserman
[2023-02-11] MEDS: Potassium Chloride Oral Tablet 20 MEQ 40 MEQ PO (09:56)
[2023-02-11] MEDS: PARoxetine 10 MG Tablet PO (09:57)
[2023-02-11] MEDS: oxyCODONE 5 MG Tablet PO (09:57)
--- NOTE | 2023-02-11 10:00 | PHA.DC.MC.R ---
Pharmacy [facility] Pharmacy Service has performed discharge medication reconciliation and counseling for this patient. The patient was counseled on the following discharge medications and changes in medications for homegoing were reviewed. 1. CIPROFLOXACIN The Reason for Use, instructions for use, and potential side effects were reviewed for all new medications. The patient's questions regarding all of their medications were answered. The patient was able to verbally demonstrate an understanding of their discharge medications. The patient's discharge medication list was reviewed for discrepancies and discrepancies were resolved. Patient counselled by Cricket Kennedy PharmD Candidate
== END 2023-02-11 10:45 | disposition home or self-care (01) | DRG 690 ==
LOC: ED 12:46 → MS3 15:17
PROVIDERS: Admitting Provider Internal Medicine; Emergency Provider Emergency Medicine; PCP Family Medicine; Visit Provider Internal Medicine
DX: N10 Acute pyelonephritis (principal); E87.1 Hypo-osmolality and hyponatremia; J44.9 Chronic obstructive pulmonary disease, unspecified; F17.210 Nicotine dependence, cigarettes, uncomplicated; I10 Essential (primary) hypertension; E87.6 Hypokalemia; F32.A Depression, unspecified; F41.9 Anxiety disorder, unspecified; F10.10 Alcohol abuse, uncomplicated; Y90.9 Presence of alcohol in blood, level not specified; N13.6 Pyonephrosis; B96.20 Unspecified Escherichia coli [E. coli] as the cause of diseases classified elsewhere; Z90.49 Acquired absence of other specified parts of digestive tract; Z79.899 Other long term (current) drug therapy; Z91.51 Personal history of suicidal behavior; Z86.73 Personal history of transient ischemic attack (TIA), and cerebral infarction without residual deficits
CPT/HCPCS: 36415; 74176; 76770; 80048; 80053; 81001; 83605; 83690; 83735; 85025; 87040; 87077; 87086; 87088; 87186; 94640; 94668; 99252; 99284; 99406; J7030; J7050; A4216; G0463; J0696; J2405

== ENCOUNTER 2023-06-04 20:21 | Observation (INO) | payer MEDICARE, MEDICAID, SELFPAY ==
[2023-06-04] VITALS (7 sets, daily range): BP systolic 193–211; BP diastolic 95–109; PULSE 76–110; RESP 16–20; TEMP 36.6; O2SAT 94–97; BMI 28.8
--- NOTE | 2023-06-04 20:46 | EKG12_ITS ---
Test Reason : SOB Blood Pressure : / mmHG Vent. Rate : 087 BPM Atrial Rate : 087 BPM P-R Int : 148 ms QRS Dur : 092 ms QT Int : 392 ms P-R-T Axes : 077 067 063 degrees QTc Int : 471 ms Normal sinus rhythm Normal ECG Confirmed by RICH VARGHESE, ROLAN ([id number]), order editor MONAE LLANOS ([id number]) on 06/09/2023 12:28:27 PM Referred By: Confirmed By:ROLAN VILLANUEVA MD
--- NOTE | 2023-06-04 20:47 | CT_ITS ---
STUDY: CTA CHEST REASON FOR EXAM: Female, 57 years old. Dyspnea, pain, H/O PE RADIATION DOSAGE (If Supplied By Facility): CTDIvol = ( 12.99 ) mGy, DLP = ( 446.22 ) mGycm TECHNIQUE: The examination was performed with the intravenous administration of 100mL Isovue-370. Post-processing of the angiographic images was performed, with multiplanar reformation and 3D reconstruction. Individualized dose optimization techniques were used for this CT. COMPARISON: 08/11/2020 FINDINGS: Normal enhancement of the main pulmonary artery and right and left pulmonary arteries. Normal enhancement of the bilateral peripheral pulmonary arteries. There is no demonstrated pulmonary embolism. Normal thoracic aorta and visualized great vessels. There is no demonstrated aortic dissection. Normal heart and pericardium. Normal mediastinum. Normal hilar regions. Circumferential thickening of the distal esophageal wall with small hiatal hernia. No infiltrates, consolidations or mass lesions. No pleural effusions. Normal chest wall structures. Healing fracture right second rib anteriorly. No acute or aggressive osseous abnormality. No acute findings in the upper abdomen. CT/CTA Chest W/WO Contrast IMPRESSION: Normal CTA chest examination, without a demonstrated pulmonary embolism or arterial dissection. No acute pulmonary findings. Circumferential thickening of the distal esophagus. Possible esophagitis versus changes from GERD. Consider endoscopic correlation. Electronically Signed: Keyur Gamboa MD at 22:44 EST ,
--- NOTE | 2023-06-04 20:48 | EDS_ITS ---
HPI History of Present Illness Chief Complaint: Shortness of Breath Informant: patient Onset/Context/Timing Onset: Weeks Context: Gradual Onset Narrative Narrative: Patient present secondary to cough and shortness of breath. She states she was admitted to [facility] and cannot about a month ago with strep pneumonia. She got 3 doses of IV antibiotics and left the hospital because she was not happy with her care there. She states has had gradual worsening of her symptoms to include shortness of breath, cough, back pain. She states there is a couple times that she has had subjective fever and chills. [facility] Medical History Acute pyelonephritis Alcohol abuse Asthma Chronic pain COPD (chronic obstructive pulmonary disease) Kidney stones Leukocytosis Pulmonary embolism Sleep apnea Smoker Stroke/cerebrovascular accident Substance abuse TIA (transient ischemic attack) Home Medications albuterol sulfate 2.5 mg/3 mL (0.083 %) solution for nebulization 2.5 mg (3 mL) inhalation Q4H PRN #25 vials 10/20/17 [Rx Last Taken 02/08/23] albuterol sulfate 90 mcg/actuation aerosol inhaler (Ventolin HFA) 1 - 2 puff inhalation PRN PRN Sob &/Or Wheezing 05/18/18 [History Last Taken 02/08/23] epinephrine 0.3 mg/0.3 mL injection, auto-injector 0.3 mg (0.3 mL) IM X1 ##1 01/21/19 [Rx Last Taken Unknown] ipratropium 0.5 mg-albuterol 3 mg (2.5 mg base)/3 mL nebulization soln 3 ml inhalation BID 08/31/21 [History Last Taken 02/08/23] ciprofloxacin HCl 500 mg tablet (Cipro) 500 mg PO BID 7 days #14 tabs 02/11/23 [Rx Last Taken Unknown] Allergy/AdvReac Type Severity Reaction Status Date / Time peanut Allergy Anaphylaxis Verified 06/04/23 20:23 tree nut [Tree Nut] Allergy Anaphylaxis Verified 06/04/23 20:23 Family History Mother COPD (chronic obstructive pulmonary disease) Hypertension Father Epilepsy Surgical History History of bilateral ligation of fallopian tubes History of cholecystectomy Social History household members: none Smoking Status: Current every day smoker tobacco type: cigarettes alcohol intake: former substance use type: marijuana ROS ROS ED Constitutional Constitutional ED: Reports chills, fever(s) and subjective Eyes Eyes: Denies change in vision or discharge from eye(s) ENT ENT ED: Denies discharge from eye(s), rhinorrhea or sore throat Cardiovascular Cardiovascular: Denies chest pain or palpitations Respiratory/Chest Respiratory/Chest: Reports cough and dyspnea Gastrointestinal Gastrointestinal: Reports nausea and vomiting; Denies abdominal pain or diarrhea Genitourinary Genitourinary ED: Denies dysuria Musculoskeletal Musculoskeletal: Reports back pain; Denies extremity pain Integumentary Denies Abrasions or rash Neurologic Neurologic: Denies headache(s) or weakness Psychiatric Psychiatric: Denies anxiety or depression Allergic/Immunologic Allergic/Immunologic ED: Denies lip swelling or urticaria EXAM Physical Exam Const Vital Signs: 06/04/23 20:23 06/04/23 20:58 06/04/23 21:40 Temperature 98 F Temperature Source Temporal Pulse Rate 108 H 110 H 86 Respiratory Rate 19 H 20 H 16 Respiratory Effort Respiratory Depth Respiratory Pattern Blood Pressure 211/109 H 198/102 H Blood Pressure Mean 143 134 Pulse Ox 94 97 Oxygen Delivery Method Room Air Room Air 06/04/23 22:57 06/04/23 23:00 06/04/23 23:03 Temperature Temperature Source Pulse Rate 81 76 Respiratory Rate 16 16 Respiratory Effort Non-Labored Respiratory Depth Normal Respiratory Pattern Normal Blood Pressure 193/95 H 206/107 H Blood Pressure Mean 127 140 Pulse Ox 95 97 Oxygen Delivery Method Room Air Room Air Room Air Positive well nourished and well developed General Appearance ED: well developed HEENT Reports moist mucous membranes Eyes EOMs intact bilaterally Neck no lymphadenopathy Chest Wall inspection of chest normal and palpation of chest normal Resp Resp Narrative: Expiratory wheezes bilaterally. Cardio regular rhythm Rate: tachycardic GI non-tender Palpation: soft Extremity normal to inspection Neuro oriented x3 and no sensory deficits noted Motor Exam: strength 5/5 throughout Psych mental status grossly normal Skin no rashes or lesions noted MDM MDM MDM Narrative Medical decision making narrative: Patient placed on vehicle monitor technician. IV line established. Patient given aerosols and Solu-Medrol. EKG obtained to evaluate for cardiac arrhythmia/ischemia. Labwork obtained to evaluate for leukocytosis, anemia, and electrolyte derangement. CTA of the chest obtained given patient's ongoing symptoms with a history of PE and not on anticoagulation. History & Record Review Discussion w/independent historian: Patient Lab Data Attestation: I reviewed the patient's lab results. Labs: Laboratory Results - last 24 hr 06/04/23 21:30 WBC 13.7 H RBC 5.13 Hgb 14.2 Hct 45.1 MCV 87.9 MCH 27.7 MCHC 31.5 L RDW Std Deviation 44.2 H RDW Coeff of Madhu 13.7 Plt Count 558 H MPV 9.3 Immature Gran % (Auto) 0.300 Neut % (Auto) 61.9 Lymph % (Auto) 24.9 [place] % (Auto) 8.1 Eos % (Auto) 4.2 Baso % (Auto) 0.6 Absolute Neuts (auto) 8.5 H Absolute Lymphs (auto) 3.40 Nucleated RBC % 0 Sodium 141 Potassium 3.5 Chloride 106 Carbon Dioxide 29.0 Anion Gap 6 BUN 15 Creatinine 0.92 Estim Creat Clear Calc 58.96 Est GFR (MDRD) Af Amer 81 Est GFR (MDRD) Non-Af 67 BUN/Creatinine Ratio 16.3 Glucose 102 Calcium 9.1 Total Bilirubin 0.40 Direct Bilirubin 0.12 AST 14 L ALT 18 Alkaline Phosphatase 114 Troponin I High Sens 12 Total Protein 7.9 Albumin 3.5 Globulin 4.4 H Radiography Diagnostic Testing: Clinical Impression(s) from Imaging Studies Chest CTA 06/04/23 20:47 IMPRESSION: Normal CTA chest examination, without a demonstrated pulmonary embolism or arterial dissection. No acute pulmonary findings. Circumferential thickening of the distal esophagus. Possible esophagitis versus changes from GERD. Consider endoscopic correlation. Electronically Signed: Keyur Gamboa MD at 22:44 EST , EKG Initial EKG: Attestation: I personally reviewed and interpreted this EKG as follows: Interpretation: Sinus Rhythm (Sinus 87 with no acute ischemia.) Treatment and Re-Evaluation :: CBC was a white count of 13.7 with normal differential. Hemoglobin is 14.2. Chemistry studies unremarkable. LFTs unremarkable and troponin is normal at 12. COVID and influenza swab is negative. EKG is sinus at 87 with no acute ischemia. CTA of the chest reveals no evidence of pulmonary embolism. No acute pulmonary findings. There is circumferential thickening of the distal esophagus. Patient does report intermittent difficulty swallowing but states she was able to drink water prior to arrival. I will give her a dose of Protonix. Patient's blood pressure came down slightly but is now back up to 200 systolic. She will be given hydralazine. On repeat exam she has expiratory wheezes bilaterally but does have better air movement when compared to initial exam. She be given another round of aerosols. Given her COPD exacerbation I will give her a dose of doxycycline. I will speak with hospitalist regarding admission for aerosol treatments as well as blood pressure treatment. Discharge Plan Triage Chief Complaint: Shortness of Breath ED Provider: Idalia Sanchez Dx/Rx/DC Orders Clinical Impression: COPD exacerbation, Gastroesophageal reflux disease, Hypertension Prescriptions: No Action albuterol sulfate 2.5 MG/3 ML solution for nebulization 2.5 mg INHALATION Q4H PRN Qty: 25 0RF Rx Instructions: Use q4 hours and PRN for wheezing albuterol sulfate [Ventolin HFA] 18 GM HFA aerosol inhaler 1 - 2 puff inhalation PRN PRN (Reason: Sob &/Or Wheezing) Patient Comments: inhale 2 puffs by mouth every 4 hours as directed if needed for wheezing or shortness of breath epinephrine 0.3 MG syringe 0.3 mg IM X1 Qty: 1 1RF ipratropium-albuterol 0.5 mg-3 mg(2.5 mg base)/3 mL solution for nebulization 3 ml inhalation BID Patient Comments: inhale contents of 1 vial in nebulizer as directed every 6 hours ... (REFER TO PRESCRIPTION NOTES). ciprofloxacin HCl [Cipro] 500 mg tablet 500 mg PO BID 7 Days Qty: 14 0RF Hold Instructions: NOT TAKING Primary Care Provider: Steven Welsh Referrals: Steven Welsh MD [Primary Care Provider] - Disposition Disposition: Acute Care Hospital [facility] [place]
[2023-06-04] MEDS: Ipratropium/Albuterol Sulfate 3 ML AMPUL.NEB INHALATION (20:53)
[2023-06-04] MEDS: Albuterol 2.5 MG/3 ML VIAL.NEB. INHALATION ×4 (21:11→23:13)
[2023-06-04] MEDS: MethylPREDNISolone 125 MG/2 ML Vial IV (21:39)
[2023-06-04] MEDS: 0.9% Normal Saline (1000mL) 1,000 ML 150 ML IV ×2 (21:39→23:26)
[2023-06-04 21:51] LABS: Absolute Neutrophil Count 8.5 X10^3/uL (2.0-7.7); Basophil# 0.08 X10^3/uL; Basophil% 0.6 % (0-1); Eosinophil# 0.57 X10^3/uL; Eosinophils% 4.2 % (0-5); Hematocrit 45.1 % (37-47); Hemoglobin 14.2 g/dL (12.0-15.0); Lymphocyte % 24.9 % (19-41); Mean Corp Hgb Conc 31.5 g/dL (32-36); Mean Corpuscular Hgb 27.7 pg (27.0-32.0); Mean Corpuscular Volume 87.9 fL (81-99); Mean Platelet Vol. 9.3 fl (6.2-12.0); Monocyte# 1.11 X10^3/uL; Monocyte% 8.1 % (0-10); NRBC Flagged by Analyzer 0 % (0-5); Neutrophil # 8.48 X10^3/uL (2.7-7.7); Neutrophil % 61.9 % (47-70); Platelet Count 558 K/mm3 (150-450); RBC Distribution Width CV 13.7 % (11.6-14.6); RBC Distribution Width SD 44.2 fl (35.1-43.9); Red Blood Count 5.13 M/mm3 (4.2-5.4); White Blood Count 13.7 K/mm3 (4.4-11.0)
[2023-06-04 22:12] LABS: AST(SGOT) 14 U/L (15-37); Alanine Aminotransfer ALT/SGPT 18 U/L (13-56); Albumin, Serum 3.5 g/dL (3.2-5.0); Alkaline Phosphatase 114 U/L (45-117); Anion Gap 6 (5-15); BUN 15 mg/dL (7-18); BUN/Creat Ratio 16.3 RATIO (10-20); Bilirubin, Direct 0.12 mg/dL (0.00-0.30); Calcium,Total 9.1 mg/dL (8.5-10.1); Chloride 106 mmol/L (98-107); Creatinine, Serum 0.92 mg/dL (0.55-1.02); EST Glomerular Filtration Rate 67 mL/min (>60); Est Glom Filt Rate - Afr Amer 81 mL/min (>60); Estimated Creatinine Clearance 58.96 ml/min; Globulin 4.4 g/dL (2.2-4.2); Glucose 102 mg/dL (74-106); Potassium 3.5 mmol/L (3.5-5.1); Protein, Total 7.9 g/dL (6.4-8.2); Sodium Level 141 mmol/L (136-145); Troponin-I HS 12 pg/mL (3.0-54.0)
[2023-06-04] MEDS: Pantoprazole Sodium 40 MG in 0.9% Normal Saline (100mL MB+) 100 ML 330 MG IV (23:26)
[2023-06-04] MEDS: Doxycycline 100 MG in Dextrose 5%-Water (250mL Bag) 250 ML 250 MG IV (23:29)
--- NOTE | 2023-06-04 23:31 | PCM.HP.STD ---
HPI - General General Date of Admission: 06/04/23 Date of Service: 06/04/23 Chief Complaint: sob HPI Narrative SAVANNAH IRVIN, is a 57 F with a significant history of tobacco abuse; COPD and hypertension who presents emergency department for shortness of breath. Patient was admitted at [facility] about a month prior to presentation and was treated for strep pneumoniae. She received about 3 doses of antibiotics. Thereafter she was not happy with the care at [facility] so she left. was not good so she left. Ever since her shortness of breath has never gone away. Associated with her symptoms is wheezing above her baseline. Also she has some baseline cough that has worsened. Her cough is generally nonproductive occasionally with some bubbly sputum. She reports chills. She has not checked her temperature at home and did not know whether she had a fever or not. [facility]LY [facility] Medical History Acute pyelonephritis Alcohol abuse Asthma Chronic pain COPD (chronic obstructive pulmonary disease) Kidney stones Leukocytosis Pulmonary embolism Sleep apnea Smoker Stroke/cerebrovascular accident Substance abuse TIA (transient ischemic attack) Home Medications albuterol sulfate 2.5 mg/3 mL (0.083 %) solution for nebulization 2.5 mg (3 mL) inhalation Q4H PRN #25 vials 10/20/17 [Rx Last Taken 02/08/23] albuterol sulfate 90 mcg/actuation aerosol inhaler (Ventolin HFA) 1 - 2 puff inhalation PRN PRN Sob &/Or Wheezing 05/18/18 [History Last Taken 02/08/23] epinephrine 0.3 mg/0.3 mL injection, auto-injector 0.3 mg (0.3 mL) IM X1 ##1 01/21/19 [Rx Last Taken Unknown] ipratropium 0.5 mg-albuterol 3 mg (2.5 mg base)/3 mL nebulization soln 3 ml inhalation BID 08/31/21 [History Last Taken 02/08/23] ciprofloxacin HCl 500 mg tablet (Cipro) 500 mg PO BID 7 days #14 tabs 02/11/23 [Rx Last Taken Unknown] Allergy/AdvReac Type Severity Reaction Status Date / Time peanut Allergy Anaphylaxis Verified 06/04/23 20:23 tree nut [Tree Nut] Allergy Anaphylaxis Verified 06/04/23 20:23 Family History Mother COPD (chronic obstructive pulmonary disease) Hypertension Father Epilepsy Surgical History History of bilateral ligation of fallopian tubes History of cholecystectomy Social History household members: none Smoking Status: Current every day smoker tobacco type: cigarettes alcohol intake: former substance use type: marijuana ROS ROS Narrative Pertinent positives and pertinent negatives as noted in HPI. All other systems were reviewed and are negative Vital Signs Vital Signs Vital Signs: 06/04/23 20:23 06/04/23 20:58 06/04/23 21:40 Temperature 98 F Temperature Source Temporal Pulse Rate 108 H 110 H 86 Respiratory Rate 19 H 20 H 16 Respiratory Effort Respiratory Depth Respiratory Pattern Blood Pressure 211/109 H 198/102 H Blood Pressure Mean 143 134 Pulse Ox 94 97 Oxygen Delivery Method Room Air Room Air 06/04/23 22:57 06/04/23 23:00 06/04/23 23:03 Temperature Temperature Source Pulse Rate 81 76 Respiratory Rate 16 16 Respiratory Effort Non-Labored Respiratory Depth Normal Respiratory Pattern Normal Blood Pressure 193/95 H 206/107 H Blood Pressure Mean 127 140 Pulse Ox 95 97 Oxygen Delivery Method Room Air Room Air Room Air 06/04/23 23:14 Temperature Temperature Source Pulse Rate 87 Respiratory Rate 18 Respiratory Effort Respiratory Depth Respiratory Pattern Blood Pressure Blood Pressure Mean Pulse Ox Oxygen Delivery Method Weight Weight: 76.067 kg Body Mass Index (BMI) 28.8 Physical Exam Narrative General: Well-nourished, well-developed. Head: Normocephalic, atraumatic, no tenderness Eyes: Vision is grossly intact. EOMI ENT, no trauma, moist mucous membranes, no rhinorrhea Neck: Nontender, No thyromegaly. CVS: Regular rate and rhythm. S1-S2 present. No murmur, gallop or rub. Respiratory : Rhonchi and wheezes anteriorly. Diminished posteriorly. Chest wall nontender Abdomen: Soft, nontender, nondistended, normal bowel sounds, no masses : Deferred Back: Nontender, no CVA tenderness, no midline spinal tenderness. Extremities: Nontender full range of motion, no trauma Skin: Normal color, no trauma, abrasions Neuro: Alert, oriented, cranial nerves II through XII grossly intact. Psychiatry: Normal mood. Normal affect. Not depressed. Not anxious. Results Lab / Micro Data 06/04/23 21:30 06/04/23 21:30 Labs: Laboratory Results - last 24 hr 06/04/23 21:30: WBC 13.7 H, RBC 5.13, Hgb 14.2, Hct 45.1, MCV 87.9, MCH 27.7, MCHC 31.5 L, RDW Std Deviation 44.2 H, RDW Coeff of Madhu 13.7, Plt Count 558 H, MPV 9.3, Immature Gran % (Auto) 0.300, Neut % (Auto) 61.9, Lymph % (Auto) 24.9, [place] % (Auto) 8.1, Eos % (Auto) 4.2, Baso % (Auto) 0.6, Absolute Neuts (auto) 8.5 H, Absolute Lymphs (auto) 3.40, Nucleated RBC % 0, Sodium 141, Potassium 3.5, Chloride 106, Carbon Dioxide 29.0, Anion Gap 6, BUN 15, Creatinine 0.92, Estim Creat Clear Calc 58.96, Est GFR (MDRD) Af Amer 81, Est GFR (MDRD) Non-Af 67, BUN/Creatinine Ratio 16.3, Glucose 102, Calcium 9.1, Total Bilirubin 0.40, Direct Bilirubin 0.12, AST 14 L, ALT 18, Alkaline Phosphatase 114, Troponin I High Sens 12, Total Protein 7.9, Albumin 3.5, Globulin 4.4 H Micro: Microbiology 06/04/23 21:44 Nasal Secretion SARS-CoV-2 & FLU Antigen (Rapid) - Final Imagaing Radiology Impression Chest CTA 06/04/23 20:47 IMPRESSION: Normal CTA chest examination, without a demonstrated pulmonary embolism or arterial dissection. No acute pulmonary findings. Circumferential thickening of the distal esophagus. Possible esophagitis versus changes from GERD. Consider endoscopic correlation. Electronically Signed: Keyur Gamboa MD at 22:44 EST , Assessment & Plan Assessment/Plan (1) COPD exacerbation: PLAN: Plan COPD exacerbation CXR independently interpreted: No acute pulmonary findings. Circumferential thickening of the distal esophagus. Scheduled DuoNeb Albuterol as needed Solu-Medrol [id number] ordered Given the emergency department and continued. We will check procalcitonin. CBC reviewed showed elevation. Trend. Check strep pneumoniae Monitor BMP and CBC Esophagitis CTA with circumferential thickening of distal esophagus as above. IV Protonix x1 given the emergency department and continued. On discharge consider GI referral. Hypertensive urgency Reported previously on blood pressure medicine but blood pressure medicine was tapered down because of hypotension. Patient reports that she goes scan with hypertension and stop taking a blood pressure medication. We will start patient on 2 blood pressure medications at this time. As needed hydralazine ordered. Cautious titration of home blood pressure medications. DVT prophylaxis: Lovenox ordered. Time spent in the patient's overall evaluation,decision-making process, review of diagnostic data, adjustment of management, discussion with other providers, nursing and ancillary staff involved in patient's care documentation, 70 minutes. Charges/Coding Visit Charges Inpatient E&M: 35256 Init Hosp L3
[2023-06-04] MEDS: hydrALAZINE 20 MG/ML Vial 10 MG IV (23:42)
[2023-06-05] VITALS (10 sets, daily range): BP systolic 137–185; BP diastolic 75–103; PULSE 86–102; RESP 16–25; TEMP 36.1–36.8; O2SAT 92–98; BMI 28.9
[2023-06-05] MEDS: 0.9% Saline Lock 10 ML Syringe IV ×2 (06:51→09:36)
[2023-06-05] MEDS: Ipratropium/Albuterol Sulfate 3 ML AMPUL.NEB INHALATION ×2 (07:23→11:02)
[2023-06-05 08:23] LABS: Absolute Lymphocyte Count 0.93 X10^3/uL (0.83-4.51); Absolute Neutrophil Count 7.9 X10^3/uL (2.0-7.7); Basophil# 0.01 X10^3/uL; Basophil% 0.1 % (0-1); Hemoglobin 13.5 g/dL (12.0-15.0); Lymphocyte # 0.93 X10^3/ul (0.83-4.51); Lymphocyte % 10.5 % (19-41); Mean Corp Hgb Conc 31.4 g/dL (32-36); Mean Corpuscular Hgb 27.8 pg (27.0-32.0); Mean Corpuscular Volume 88.7 fL (81-99); Mean Platelet Vol. 9.6 fl (6.2-12.0); Monocyte# 0.04 X10^3/uL; Monocyte% 0.5 % (0-10); NRBC Flagged by Analyzer 0 % (0-5); Neutrophil # 7.86 X10^3/uL (2.7-7.7); Neutrophil % 88.4 % (47-70); Platelet Count 544 K/mm3 (150-450); RBC Distribution Width CV 13.9 % (11.6-14.6); RBC Distribution Width SD 44.9 fl (35.1-43.9); Red Blood Count 4.85 M/mm3 (4.2-5.4); White Blood Count 8.9 K/mm3 (4.4-11.0)
--- NOTE | 2023-06-05 08:39 | PN.HOSP_ITS ---
Reason for Visit Reason for Visit: Diagnoses Chronic obstructive pulmonary disease with (acute) exacerbation (06/04/23) Subjective Subjective Breathing much better today. Objective Data Objective Data Vital Signs: Vital Signs Temp Pulse Resp BP Pulse Ox O2 Del Method 36.1 C L 93 18 144/75 H 92 Room Air 06/05/23 05:23 06/05/23 07:25 06/05/23 07:25 06/05/23 05:23 06/05/23 07:25 06/05/23 07:40 Oxygen Delivery Method Room Air Weight: 76.4 kg Body Mass Index (BMI) 28.9 Intake & Output: Intake and Output for Last 24 Hours 06/03/23 06/04/23 06/05/23 23:59 23:59 23:59 Intake Total 267.5 / 267.5 1849 Balance 267.5 / 267.5 1849 Lab / Micro Data 06/05/23 07:21 06/05/23 07:21 Labs: Laboratory Results - last 24 hr 06/04/23 21:30: WBC 13.7 H, RBC 5.13, Hgb 14.2, Hct 45.1, MCV 87.9, MCH 27.7, MCHC 31.5 L, RDW Std Deviation 44.2 H, RDW Coeff of Madhu 13.7, Plt Count 558 H, MPV 9.3, Immature Gran % (Auto) 0.300, Neut % (Auto) 61.9, Lymph % (Auto) 24.9, [place] % (Auto) 8.1, Eos % (Auto) 4.2, Baso % (Auto) 0.6, Absolute Neuts (auto) 8.5 H, Absolute Lymphs (auto) 3.40, Nucleated RBC % 0, Sodium 141, Potassium 3.5, Chloride 106, Carbon Dioxide 29.0, Anion Gap 6, BUN 15, Creatinine 0.92, Estim Creat Clear Calc 58.96, Est GFR (MDRD) Af Amer 81, Est GFR (MDRD) Non-Af 67, BUN/Creatinine Ratio 16.3, Glucose 102, Calcium 9.1, Total Bilirubin 0.40, Direct Bilirubin 0.12, AST 14 L, ALT 18, Alkaline Phosphatase 114, Troponin I High Sens 12, Total Protein 7.9, Albumin 3.5, Globulin 4.4 H 06/05/23 07:21: WBC 8.9, RBC 4.85, Hgb 13.5, Hct 43.0, MCV 88.7, MCH 27.8, MCHC 31.4 L, RDW Std Deviation 44.9 H, RDW Coeff of Madhu 13.9, Plt Count 544 H, MPV 9.6, Immature Gran % (Auto) 0.500, Neut % (Auto) 88.4 H, Lymph % (Auto) 10.5 L, [place] % (Auto) 0.5, Eos % (Auto) 0.0, Baso % (Auto) 0.1, Absolute Neuts (auto) 7.9 H, Absolute Lymphs (auto) 0.93, Nucleated RBC % 0 Micro: Microbiology 06/04/23 21:44 Nasal Secretion SARS-CoV-2 & FLU Antigen (Rapid) - Final Radiography Diagnostic Testing: Radiology Impression Chest CTA 06/04/23 20:47 IMPRESSION: Normal CTA chest examination, without a demonstrated pulmonary embolism or arterial dissection. No acute pulmonary findings. Circumferential thickening of the distal esophagus. Possible esophagitis versus changes from GERD. Consider endoscopic correlation. Electronically Signed: Keyur Gamboa MD at 22:44 EST , Physical Exam Const alert and no apparent distress HEENT head/scalp atraumatic and moist oral mucous membranes Resp normal respiratory effort and no retractions Neuro Sensorium / Orientation: awake and alert Assessment & Plan Assessment/Plan (1) COPD exacerbation: PLAN: Acute COVID 19 negative. CTA chest personally reviewed and showed no acute process. Currently on room air. DC methylprednisolone changed over to prednisone 40 mg daily. Check an ambulatory pulse ox. COPD is a suspected diagnosis as has been what she is told she has had before. However, patient has never had PFTs or seen a electrical control assembler before. I would be concerned patient has underlying asthma as a not release any clear evidence of COPD on her CAT scan. Recommend she follow-up with pulmonology to have PFTs and further chronic maintenance medications. She does state that she would require DuoNebs upon discharge. (2) Hypertension, accelerated: PLAN: Much improved at this time. On amlodipine and hydrochlorothiazide (3) Esophagitis: PLAN: Unclear significance. Incidental finding on CAT scan. Continue with PPI and follow-up with gastroenterology as outpatient. Patient states that she has had endoscopy in the past. Did discuss with patient that this may be esophagitis but should have an EGD as outpatient. Patient has been modifying her diet anyways with soft diet and liquids. Recommend she continue with that. We will discharge with Protonix twice daily. PLAN: Plan DVT prophylaxis: Lovenox ordered.
[2023-06-05 08:46] LABS: Anion Gap 8 (5-15); BUN 13 mg/dL (7-18); BUN/Creat Ratio 14.9 RATIO (10-20); Calcium,Total 8.8 mg/dL (8.5-10.1); Chloride 106 mmol/L (98-107); Creatinine, Serum 0.88 mg/dL (0.55-1.02); EST Glomerular Filtration Rate 71 mL/min (>60); Est Glom Filt Rate - Afr Amer 86 mL/min (>60); Estimated Creatinine Clearance 61.64 ml/min; Glucose 223 mg/dL (74-106); Potassium 3.4 mmol/L (3.5-5.1); Sodium Level 138 mmol/L (136-145)
[2023-06-05 08:51] LABS: Procalcitonin < 0.04 ng/mL (0.00-0.09)
[2023-06-05] MEDS: hydroCHLOROthiazide 12.5mg 12.5 MG PO (09:34)
[2023-06-05] MEDS: Doxycycline 100 MG CAPSULE PO (09:34)
[2023-06-05] MEDS: amLODIPine 5 MG Tablet PO (09:35)
[2023-06-05] MEDS: Pantoprazole Sodium 40 MG in 0.9% Normal Saline (100mL MB+) 100 ML 330 MG IV (09:36)
--- NOTE | 2023-06-05 13:14 | DS.PCM_ITS ---
Providers Date of Admission: 06/04/23 Primary Care Physician: Dr. Steven Welsh MD Reason For Visit: COPD EXACEBERATION, HYPOTENSIVE URGENCY Diagnosis Discharge Diagnosis (1) COPD exacerbation: Status: Chronic Code(s): J44.1 - Chronic obstructive pulmonary disease with (acute) exacerbation Plan: Acute COVID 19 negative. CTA chest personally reviewed and showed no acute process. Currently on room air. DC methylprednisolone changed over to prednisone 40 mg daily. Check an ambulatory pulse ox. COPD is a suspected diagnosis as has been what she is told she has had before. However, patient has never had PFTs or seen a school librarian before. I would be concerned patient has underlying asthma as a not release any clear evidence of COPD on her CAT scan. Recommend she follow-up with pulmonology to have PFTs and further chronic maintenance medications. She does state that she would require DuoNebs upon discharge. (2) Hypertension, accelerated: Status: Acute Code(s): I10 - Essential (primary) hypertension Plan: Much improved at this time. On amlodipine and hydrochlorothiazide (3) Esophagitis: Status: Acute Code(s): K20.90 - Esophagitis, unspecified without bleeding Plan: Unclear significance. Incidental finding on CAT scan. Continue with PPI and follow-up with gastroenterology as outpatient. Patient states that she has had endoscopy in the past. Did discuss with patient that this may be esophagitis but should have an EGD as outpatient. Patient has been modifying her diet anyways with soft diet and liquids. Recommend she continue with that. We will discharge with Protonix twice daily. Plan DVT prophylaxis: Lovenox ordered. Medications at Discharge Home Medications albuterol sulfate 2.5 mg/3 mL (0.083 %) solution for nebulization 2.5 mg (3 mL) inhalation Q4H PRN #25 vials 10/20/17 albuterol sulfate 90 mcg/actuation aerosol inhaler (Ventolin HFA) 1 - 2 puff inhalation PRN PRN Sob &/Or Wheezing 05/18/18 epinephrine 0.3 mg/0.3 mL injection, auto-injector 0.3 mg (0.3 mL) IM X1 ##1 01/21/19 amlodipine 5 mg tablet 5 mg PO DAILY #30 tabs 06/05/23 hydrochlorothiazide 12.5 mg capsule 12.5 mg PO DAILY #30 caps 06/05/23 ipratropium 0.5 mg-albuterol 3 mg (2.5 mg base)/3 mL nebulization soln 3 ml inhalation BID #180 mL 06/05/23 pantoprazole 40 mg tablet,delayed release (Protonix) 40 mg PO Q12H #60 tabs 06/05/23 prednisone 20 mg tablet 40 mg (2 x 20 mg) PO BREAKFAST #10 tabs 06/05/23 Hospital Course Operations None Procedures None Summary of Care Provided Minutes Spent on Discharge: 32 Hospital Course: Patient presents with COPD exacerbation. Diagnosis of COPD is questionable as patient has never had formal pulmonary function test. Patient did respond with steroids so she will be discharged with prednisone burst. She is also requesting DuoNebs which she takes at home to be continued. Patient also had diagnosis of esophagitis on CAT scan. Patient will be on Protonix twice daily with follow-up with GI. Patient has been modifying her diet with liquids and soft diet but still has periods where she regurgitates food. If this continues to be an ongoing issue she may need to have GI see her in the hospital but she has been doing fine since has been here. Weight / BMI Weight Weight: 76.4 kg Body Mass Index (BMI) 28.9 ABG / Lab / Microbiology Data 06/05/23 07:21 06/05/23 07:21 Laboratory: Laboratory Results - last 24 hr 06/04/23 21:30: WBC 13.7 H, RBC 5.13, Hgb 14.2, Hct 45.1, MCV 87.9, MCH 27.7, MCHC 31.5 L, RDW Std Deviation 44.2 H, RDW Coeff of Madhu 13.7, Plt Count 558 H, MPV 9.3, Immature Gran % (Auto) 0.300, Neut % (Auto) 61.9, Lymph % (Auto) 24.9, [place] % (Auto) 8.1, Eos % (Auto) 4.2, Baso % (Auto) 0.6, Absolute Neuts (auto) 8.5 H, Absolute Lymphs (auto) 3.40, Nucleated RBC % 0, Sodium 141, Potassium 3.5, Chloride 106, Carbon Dioxide 29.0, Anion Gap 6, BUN 15, Creatinine 0.92, Estim Creat Clear Calc 58.96, Est GFR (MDRD) Af Amer 81, Est GFR (MDRD) Non-Af 67, BUN/Creatinine Ratio 16.3, Glucose 102, Calcium 9.1, Total Bilirubin 0.40, Direct Bilirubin 0.12, AST 14 L, ALT 18, Alkaline Phosphatase 114, Troponin I High Sens 12, Total Protein 7.9, Albumin 3.5, Globulin 4.4 H 06/05/23 07:21: WBC 8.9, RBC 4.85, Hgb 13.5, Hct 43.0, MCV 88.7, MCH 27.8, MCHC 31.4 L, RDW Std Deviation 44.9 H, RDW Coeff of Madhu 13.9, Plt Count 544 H, MPV 9.6, Immature Gran % (Auto) 0.500, Neut % (Auto) 88.4 H, Lymph % (Auto) 10.5 L, [place] % (Auto) 0.5, Eos % (Auto) 0.0, Baso % (Auto) 0.1, Absolute Neuts (auto) 7.9 H, Absolute Lymphs (auto) 0.93, Nucleated RBC % 0, Sodium 138, Potassium 3.4 L, Chloride 106, Carbon Dioxide 24.0, Anion Gap 8, BUN 13, Creatinine 0.88, Estim Creat Clear Calc 61.64, Est GFR (MDRD) Af Amer 86, Est GFR (MDRD) Non-Af 71, BUN/Creatinine Ratio 14.9, Glucose 223 H, Calcium 8.8, Procalcitonin < 0.04 Microbiology: Microbiology 06/04/23 21:44 Nasal Secretion SARS-CoV-2 & FLU Antigen (Rapid) - Final Radiography Diagnostic Testing: Radiology Impression Chest CTA 06/04/23 20:47 IMPRESSION: Normal CTA chest examination, without a demonstrated pulmonary embolism or arterial dissection. No acute pulmonary findings. Circumferential thickening of the distal esophagus. Possible esophagitis versus changes from GERD. Consider endoscopic correlation. Electronically Signed: Keyur Gamboa MD at 22:44 EST , D/C Instructions Discharge Diet: No restrictions (Soft diet. Avoid chewy meats, such as steak and hard breads. Easy to chew and swallow foods.) Meaningful Use Info Meaningful Use Diagnoses (Choose all that apply): None applicable Discharge Plan Admission Admit Date/Time: 06/04/23 23:26 Primary Reason for Your Visit: COPD exacerbation Attending Provider: Nito Thorne Primary Care Provider: Steven Welsh Consulting Providers: Alexandru Holden Instructions Additional Instructions / Restrictions: You have been told that you have COPD in the past. I am not sure you actually do have COPD but you may have another reactive airway disease such as asthma. Treatment is more or less the same but I do recommend that you see a school librarian for chronic maintenance medications but also to formally evaluate whether or not you do have COPD or not. Your CAT scan was also concerning for esophagitis so you will be on Protonix for that. I recommend you follow-up with gastroenterology to see about having an EGD. If you continue to have trouble swallowing any with choking, notify someone or return to the emergency room. Your blood pressure was very high upon presentation. You have also been ordered two medications, amlodipine and hydrochlorothiazide, to help with that. Discharge Orders/Prescriptions Prescriptions: New amlodipine 5 mg Tablet 5 mg PO DAILY Qty: 30 0RF hydrochlorothiazide 12.5 mg Capsule 12.5 mg PO DAILY Qty: 30 0RF prednisone 20 mg Tablet 40 mg PO BREAKFAST Qty: 10 0RF pantoprazole [Protonix] 40 mg tablet,delayed release (DR/EC) 40 mg PO Q12H Qty: 60 0RF Continued albuterol sulfate 2.5 MG/3 ML solution for nebulization 2.5 mg INHALATION Q4H PRN Qty: 25 0RF Rx Instructions: Use q4 hours and PRN for wheezing albuterol sulfate [Ventolin HFA] 18 GM HFA aerosol inhaler 1 - 2 puff inhalation PRN PRN (Reason: Sob &/Or Wheezing) Patient Comments: inhale 2 puffs by mouth every 4 hours as directed if needed for wheezing or shortness of breath epinephrine 0.3 MG syringe 0.3 mg IM X1 Qty: 1 1RF ipratropium-albuterol 0.5 mg-3 mg(2.5 mg base)/3 mL solution for nebulization 3 ml inhalation BID Qty: 180 0RF Discontinued ciprofloxacin HCl [Cipro] 500 mg tablet 500 mg PO BID 7 Days Qty: 14 0RF Hold Instructions: NOT TAKING Referrals / Follow Up: [facility] [Provider Group] - Within 3 Months [facility] [Provider Group] - Within 1 Month Steven Welsh MD [Primary Care Provider] - Within 2 Weeks Disposition Disposition (needs filled in before D/C Order can be placed): Home, Self Care Charges/Coding Visit Charges Inpatient E&M: 59910 Disch Hosp >30min
[2023-06-05] MEDS: predniSONE 20 MG Tablet 40 MG PO (13:52)
== END 2023-06-05 13:22 | disposition home or self-care (01) ==
LOC: ED 23:25 → PCU 23:30
PROVIDERS: Admitting Provider Hospitalist; Emergency Provider Emergency Medicine; PCP Family Medicine
DX: J44.1 Chronic obstructive pulmonary disease with (acute) exacerbation (principal); F17.210 Nicotine dependence, cigarettes, uncomplicated; K21.00 Gastro-esophageal reflux disease with esophagitis, without bleeding; I10 Essential (primary) hypertension; Z79.899 Other long term (current) drug therapy; I16.0 Hypertensive urgency
CPT/HCPCS: 36415; 71275; 80048; 80076; 84145; 84484; 85025; 87040; 87428; 93005; 94640; 96361; 96365; 96366; 96367; 96375; 96376; 99221; 99285; 99406; J7030; Q9967; A4216; G0378

== ENCOUNTER 2023-12-30 20:25 | Emergency (ER) | payer MEDICARE, MEDICAID, SELFPAY ==
[2023-12-30 20:25] VITALS: BP 149/100; PULSE 115; RESP 16; TEMP 36.6; O2SAT 99; BMI 29.4
[2023-12-30 20:27] VITALS: BP 149/100; PULSE 115; RESP 16; TEMP 36.6; O2SAT 99
--- NOTE | 2023-12-30 20:39 | CT_ITS ---
STUDY: CT Abdomen And Pelvis W/O Contrast Injection 12/30/2023 9:28 PM REASON FOR EXAM: Female, 58 years old. Abdominal pain right flank pain Individualized dose optimization techniques were used for this CT. COMPARISON: None. TECHNIQUE: CT Abdomen And Pelvis W/O Contrast Injection FINDINGS: There are atherosclerotic calcifications of visualized coronary arteries. The visualized portions of the heart are within normal limits. Normal liver. There are surgical clips in the gallbladder fossa consistent with a prior cholecystectomy. Normal spleen. Normal pancreas. Normal bilateral adrenal glands. No acute findings of the right kidney. Non obstructive 2 mm left renal parenchymal stones. There is a small hiatal hernia. Normal small intestine. Stool throughout the colon. There is non-visualization. 1 of the appendix. There are calcifications of the abdominal aorta. This is consistent for atherosclerotic disease. There is NO abdominal aortic aneurysm. Vascular workup can be obtained based on clinical correlation. Normal inferior vena cava. Subcentimeter mesenteric lymph nodes. Normal urinary bladder. There is atrophy of the uterus. Normal abdominal wall. There are diffuse degenerative changes of the visualized lumbar spine. Old appearing L1 compression deformity. CT/Abdomen/Pelvis without Cont IMPRESSION: (NOT LISTED IN ORDER OF SIGNIFICANCE) Nonobstructive left renal stone. There are surgical clips in the gallbladder fossa consistent with a prior cholecystectomy. Other findings as above. Electronically Signed: Ed Shah MD at 21:30 EDT ,
--- NOTE | 2023-12-30 20:40 | EX.ED.DYSGE1 ---
HPI History of Present Illness Chief Complaint: Complaint Informant: patient Onset/Context/Timing Onset: Days Context: Gradual Onset Narrative Narrative: Patient present secondary to right flank pain, urinary frequency, and malodorous urine for the past week. She does not believe she has had a fever, but is unsure. She has not felt well for the past several days. She is concerned that she may have pyelonephritis. She reports she also had similar symptoms with pneumonia recently. [facility] Medical History Hypertension Gastroesophageal reflux disease Leukocytosis Acute pyelonephritis Substance abuse Alcohol abuse Chronic pain Kidney stones Smoker Sleep apnea Pulmonary embolism TIA (transient ischemic attack) Stroke/cerebrovascular accident COPD (chronic obstructive pulmonary disease) Asthma Home Medications ?Medication ?Instructions ?Recorded ?Last Taken ?Type albuterol sulfate 2.5 mg/3 mL 2.5 mg (3 mL) inhalation Q4H PRN 10/20/17 02/08/23 Rx (0.083 %) solution for nebulization #25 vials albuterol sulfate 90 mcg/actuation 1 - 2 puff inhalation PRN PRN Sob 05/18/18 02/08/23 History aerosol inhaler (Ventolin HFA) &/Or Wheezing epinephrine 0.3 mg/0.3 mL 0.3 mg (0.3 mL) IM X1 ##1 01/21/19 Unknown Rx injection, auto-injector cephalexin 500 mg capsule 500 mg PO Q12 #14 CAPSULES 12/30/23 Unknown Rx Allergy/AdvReac Type Severity Reaction Status Date / Time peanut Allergy Anaphylaxis Verified 12/30/23 20:27 tree nut (Tree Nut) Allergy Anaphylaxis Verified 12/30/23 20:27 Family History Mother COPD (chronic obstructive pulmonary disease) Hypertension Father Epilepsy Surgical History History of bilateral ligation of fallopian tubes History of cholecystectomy Social History household members: none Smoking Status: Current every day smoker tobacco type: cigarettes alcohol intake: former substance use type: marijuana ROS ROS ED Constitutional Constitutional ED: Denies chills or fever(s) Eyes Eyes: Denies change in vision or discharge from eye(s) ENT ENT ED: Denies discharge from eye(s), rhinorrhea or sore throat Cardiovascular Cardiovascular: Denies chest pain or palpitations Respiratory/Chest Respiratory/Chest: Denies cough or dyspnea Gastrointestinal Gastrointestinal: Reports abdominal pain, nausea and vomiting; Denies diarrhea Genitourinary Genitourinary ED: Reports urinary frequency; Denies difficulty urinating or dysuria Musculoskeletal Musculoskeletal: Denies back pain or extremity pain Integumentary Denies Abrasions or rash Neurologic Neurologic: Denies headache(s) or weakness Psychiatric Psychiatric: Denies anxiety or depression Allergic/Immunologic Allergic/Immunologic ED: Denies lip swelling or urticaria EXAM Physical Exam Const Vital Signs: 12/30/23 20:25 12/30/23 20:27 Temperature 97.8 F 97.8 F Temperature Source Temporal Temporal Pulse Rate 115 H 115 H Respiratory Rate 16 16 Blood Pressure 149/100 H 149/100 H Blood Pressure Mean 116 116 Pulse Ox 99 99 Oxygen Delivery Method Room Air Room Air Positive well nourished and well developed General Appearance ED: well developed HEENT Reports moist mucous membranes Eyes EOMs intact bilaterally Chest Wall inspection of chest normal and palpation of chest normal Resp normal respiratory effort and clear to auscultation bilaterally Cardio regular rate and regular rhythm GI non-tender Palpation: soft Back/Spine General Back: CVA tenderness right Extremity normal to inspection Neuro oriented x3 and no sensory deficits noted Motor Exam: strength 5/5 throughout Psych mental status grossly normal Skin no rashes or lesions noted MDM MDM MDM Narrative Medical decision making narrative: IV line established. Patient given a liter of IV fluids. Labwork obtained to evaluate for leukocytosis, anemia, and electrolyte derangement. Urinalysis obtained to evaluate for infection/hematuria. Given the patient's recent pneumonia with similar symptoms a 2 view chest x-ray will be obtained to evaluate for possible infiltrate. CT flank will be obtained to evaluate for potential pyelonephritis. History & Record Review Discussion w/independent historian: Patient Lab Data Attestation: I reviewed the patient's lab results. Labs: Laboratory Results - last 24 hr 12/30/23 12/30/23 20:32 20:56 WBC 13.7 H RBC 4.97 Hgb 13.6 Hct 43.1 MCV 86.7 MCH 27.4 MCHC 31.6 L RDW Std Deviation 48.6 H RDW Coeff of Madhu 15.3 H Plt Count 452 H MPV 9.2 Immature Gran % (Auto) 0.300 Neut % (Auto) 68.4 Lymph % (Auto) 21.9 [place] % (Auto) 7.0 Eos % (Auto) 1.8 Baso % (Auto) 0.6 Absolute Neuts (auto) 9.3 H Absolute Lymphs (auto) 2.99 Nucleated RBC % 0 Sodium 138 Potassium 3.3 L Chloride 104 Carbon Dioxide 30.0 Anion Gap 4 L BUN 14 Creatinine 0.93 Estim Creat Clear Calc 67.35 Est GFR (MDRD) Af Amer 80 Est GFR (MDRD) Non-Af 66 BUN/Creatinine Ratio 15.1 Glucose 112 H Calcium 9.3 Urine Color Yellow Urine Clarity Sl. Cloudy Urine pH 6.0 Ur Specific [place] 1.020 Urine Protein 15 H Urine Glucose (UA) Normal Urine Ketones Negative Urine Occult Blood 25 H Urine Nitrite Negative Urine Bilirubin Negative Urine Urobilinogen Normal Ur Leukocyte Esterase 100 H Urine RBC 0-5 SEEN Urine WBC 25-50 SEEN Ur Squamous Epith Cells 0-5 SEEN Amorphous Sediment 1+ URATE Urine Bacteria 0 SEEN Urine Mucus 0 SEEN Radiography Diagnostic Testing: Clinical Impression(s) from Imaging Studies Abdomen/Pelvis CT 12/30/23 20:39 IMPRESSION: (NOT LISTED IN ORDER OF SIGNIFICANCE) Nonobstructive left renal stone. There are surgical clips in the gallbladder fossa consistent with a prior cholecystectomy. Other findings as above. Electronically Signed: Ed Shah MD at 21:30 EDT , Chest X-Ray 12/30/23 21:15 IMPRESSION: There are no acute findings. Electronically Signed: Ed Shah MD at 21:23 EDT , Treatment and Re-Evaluation :: White blood cell count elevated at 13.7 but normal differential noted with only 68% neutrophils. Hemoglobin is 13.6. Chemistry studies significant for potassium of 3.3. Renal function unremarkable. Urinalysis does reveal 25-50 white cells but 0 bacteria noted. Nitrites are negative. Urine will be sent for culture. Two-view chest x-ray per my interpretation reveals no evidence of focal infiltrate. Radiology interpretation reviewed and agrees. CT scan of the flank reveals nonobstructive left renal stone. Surgical clips noted in the gallbladder fossa. No other acute findings. On repeat evaluation patient resting comfortably. Test results are discussed with her. She has no evidence of pneumonia at this time. She does have white cells in her urine with urinary symptoms. In light of this I will cover her with Keflex and send a urine culture. With her potassium being slightly low tonight this will be replaced orally as well. Patient was advised that if the urine culture returns with need for change in therapy, we will call her. Return instructions are given. Discharge Plan Triage Chief Complaint: Complaint ED Provider: Idalia Sanchez Dx/Rx/DC Orders Clinical Impression: UTI (urinary tract infection), Hypokalemia Instructions: ED Hypokalemia, ED UTIs Women Prescriptions: New cephalexin 500 mg capsule 500 mg PO Q12 Qty: 14 0RF No Action albuterol sulfate 2.5 MG/3 ML solution for nebulization 2.5 mg INHALATION Q4H PRN Qty: 25 0RF Rx Instructions: Use q4 hours and PRN for wheezing albuterol sulfate [Ventolin HFA] 18 GM HFA aerosol inhaler 1 - 2 puff inhalation PRN PRN (Reason: Sob &/Or Wheezing) Patient Comments: inhale 2 puffs by mouth every 4 hours as directed if needed for wheezing or shortness of breath epinephrine 0.3 MG syringe 0.3 mg IM X1 Qty: 1 1RF Primary Care Provider: Steven Welsh Referrals: Steven Welsh MD [Primary Care Provider] - 1-2 Weeks Print Language: Malawian Disposition Disposition: Home, Self Care
[2023-12-30 20:44] LABS: Bacteria 0 SEEN /hpf (None Seen); Mucous, Urine 0 SEEN /hpf (<or=2+)
[2023-12-30 20:48] LABS: Color, Urine Yellow (Yellow); Glucose, Dipstick Normal (Normal); Ketone-Dipstick Negative (Negative); Leukocyte Esterase-Dipstick 100 /ul (Negative); Nitrite-Dipstick Negative (Negative); Occult Blood-Urine 25 /ul (Negative); Protein-Dipstick 15 mg/dl (Negative); Urine Bilirubin Dipstick Negative (Negative); Urine Clarity Sl. Cloudy (Clear); Urine Urobilinogen Normal (Normal)
[2023-12-30 20:57] LABS: Amorphous Sediment 1+ URATE; Red Blood Cells-Urine 0-5 SEEN /hpf (0-5); Squamous Epithelial Cells - UA 0-5 SEEN /hpf (5-10); White Blood Cells 25-50 SEEN /hpf (0-5)
[2023-12-30] MEDS: 0.9% Normal Saline (1000mL) 1,000 ML 1000 ML IV (20:59)
[2023-12-30 21:04] LABS: Absolute Lymphocyte Count 2.99 X10^3/uL (0.83-4.51); Absolute Neutrophil Count 9.3 X10^3/uL (2.0-7.7); Basophil# 0.08 X10^3/uL; Basophil% 0.6 % (0-1); Eosinophil# 0.25 X10^3/uL; Eosinophils% 1.8 % (0-5); Hematocrit 43.1 % (37-47); Hemoglobin 13.6 g/dL (12.0-15.0); Lymphocyte # 2.99 X10^3/ul (0.83-4.51); Lymphocyte % 21.9 % (19-41); Mean Corp Hgb Conc 31.6 g/dL (32-36); Mean Corpuscular Hgb 27.4 pg (27.0-32.0); Mean Corpuscular Volume 86.7 fL (81-99); Mean Platelet Vol. 9.2 fl (6.2-12.0); Monocyte# 0.95 X10^3/uL; NRBC Flagged by Analyzer 0 % (0-5); Neutrophil # 9.34 X10^3/uL (2.7-7.7); Neutrophil % 68.4 % (47-70); Platelet Count 452 K/mm3 (150-450); RBC Distribution Width CV 15.3 % (11.6-14.6); RBC Distribution Width SD 48.6 fl (35.1-43.9); Red Blood Count 4.97 M/mm3 (4.2-5.4); White Blood Count 13.7 K/mm3 (4.4-11.0)
--- NOTE | 2023-12-30 21:15 | RAD_ITS ---
STUDY: XR Chest 2 Views 12/30/2023 9:14 PM REASON FOR EXAM: Female, 58 years old. pain COMPARISON: None TECHNIQUE: XR Chest 2 Views FINDINGS: There is no demonstrated pleural abnormality. The lung siu are hyperexpanded. Normal heart size. Normal mediastinum. Normal ashley. Prominent appearing increased interstitial lung markings. Normal visualized pulmonary arteries. There is atherosclerotic calcification of the aortic arch with tortuosity. There are diffuse degenerative changes of the visualized thoracic spine. There is degenerative osteoarthritis of the bilateral shoulders. There are no acute findings of the upper abdomen. RAD/Chest PA and Lateral IMPRESSION: There are no acute findings. Electronically Signed: Ed Shah MD at 21:23 EDT ,
[2023-12-30 21:20] LABS: Anion Gap 4 (5-15); BUN 14 mg/dL (7-18); BUN/Creat Ratio 15.1 RATIO (10-20); Calcium,Total 9.3 mg/dL (8.5-10.1); Chloride 104 mmol/L (98-107); Creatinine, Serum 0.93 mg/dL (0.55-1.02); EST Glomerular Filtration Rate 66 mL/min (>60); Est Glom Filt Rate - Afr Amer 80 mL/min (>60); Estimated Creatinine Clearance 67.35 ml/min; Glucose 112 mg/dL (74-106); Potassium 3.3 mmol/L (3.5-5.1); Sodium Level 138 mmol/L (136-145)
[2023-12-30 21:27] VITALS: BP 161/83; PULSE 85; RESP 16; TEMP 36.1; O2SAT 98
[2023-12-30] MEDS: Cephalexin 250 MG Capsule 500 MG PO (21:47)
[2023-12-30] MEDS: Potassium Chloride Oral Tablet 20 MEQ 40 MEQ PO (21:48)
[2023-12-30 21:52] VITALS: BP 161/83; PULSE 85; RESP 16; TEMP 36.1; O2SAT 98
== END 2023-12-30 21:55 | disposition home or self-care (01) ==
PROVIDERS: Emergency Provider Emergency Medicine; PCP Family Medicine; Visit Provider Emergency Medicine
DX: N39.0 Urinary tract infection, site not specified (principal); J44.9 Chronic obstructive pulmonary disease, unspecified; E87.6 Hypokalemia; F17.210 Nicotine dependence, cigarettes, uncomplicated; F12.90 Cannabis use, unspecified, uncomplicated; Z79.51 Long term (current) use of inhaled steroids; Z86.73 Personal history of transient ischemic attack (TIA), and cerebral infarction without residual deficits; Z86.711 Personal history of pulmonary embolism
CPT/HCPCS: 71046; 74176; 80048; 81001; 85025; 87086; 87088; 87186; 96360; 99284; A4216

== ENCOUNTER 2024-04-28 21:01 | Emergency (ER) | payer MEDICARE, MEDICAID, SELFPAY ==
[2024-04-28 21:02] VITALS: BP 181/89; PULSE 102; RESP 22; TEMP 36.4; O2SAT 100; BMI 28.0
[2024-04-28 21:03] VITALS: BP 138/74; PULSE 78; RESP 16; TEMP 36.6; O2SAT 98
[2024-04-28] MEDS: Morphine 4 MG/ML Syringe IV (21:24)
[2024-04-28] MEDS: Ondansetron 4 MG/2 ML Vial IV (21:24)
[2024-04-28 21:39] LABS: Mucous, Urine 0 SEEN /hpf (<or=2+)
[2024-04-28 21:40] LABS: Color, Urine Yellow (Yellow); Glucose, Dipstick Normal (Normal); Ketone-Dipstick Negative (Negative); Leukocyte Esterase-Dipstick 100 /ul (Negative); Nitrite-Dipstick Positive (Negative); Occult Blood-Urine 150 /ul (Negative); Protein-Dipstick 30 mg/dl (Negative); Specific Gravity, Urine 1.015 (1.002-1.030); Urine Bilirubin Dipstick Negative (Negative); Urine Clarity Cloudy (Clear); Urine Urobilinogen 1 mg/dl (Normal); Urine pH 6.5 (5.0 - 8.0)
[2024-04-28 21:41] LABS: Absolute Lymphocyte Count 2.04 X10^3/uL (0.83-4.51); Absolute Neutrophil Count 5.8 X10^3/uL (2.0-7.7); Basophil# 0.05 X10^3/uL; Basophil% 0.6 % (0-1); Eosinophils% 1.1 % (0-5); Hematocrit 46.3 % (37-47); Hemoglobin 14.7 g/dL (12.0-15.0); Lymphocyte # 2.04 X10^3/ul (0.83-4.51); Lymphocyte % 22.8 % (19-41); Mean Corp Hgb Conc 31.7 g/dL (32-36); Mean Corpuscular Hgb 28.1 pg (27.0-32.0); Mean Corpuscular Volume 88.4 fL (81-99); Mean Platelet Vol. 9.6 fl (6.2-12.0); Monocyte# 0.96 X10^3/uL; Monocyte% 10.7 % (0-10); NRBC Flagged by Analyzer 0 % (0-5); Neutrophil # 5.77 X10^3/uL (2.7-7.7); Neutrophil % 64.5 % (47-70); Platelet Count 380 K/mm3 (150-450); RBC Distribution Width CV 13.6 % (11.6-14.6); Red Blood Count 5.24 M/mm3 (4.2-5.4)
[2024-04-28 21:55] LABS: Anion Gap 7 (5-15); BUN 18 mg/dL (7-18); BUN/Creat Ratio 20.5 RATIO (10-20); Calcium,Total 9.3 mg/dL (8.5-10.1); Chloride 98 mmol/L (98-107); Creatinine, Serum 0.88 mg/dL (0.55-1.02); EST Glomerular Filtration Rate 71 mL/min (>60); Est Glom Filt Rate - Afr Amer 85 mL/min (>60); Estimated Creatinine Clearance 69.59 ml/min; Glucose 107 mg/dL (74-106); Potassium 3.2 mmol/L (3.5-5.1); Sodium Level 135 mmol/L (136-145)
[2024-04-28 21:59] LABS: White Blood Cells 25-50 SEEN /hpf (0-5)
[2024-04-28 22:00] LABS: Bacteria 4+ /hpf (None Seen); Red Blood Cells-Urine 5-10 SEEN /hpf (0-5); Squamous Epithelial Cells - UA 0-5 SEEN /hpf (5-10)
[2024-04-28 22:03] LABS: Renal Epithelial Cells 0-5 SEEN /hpf (0-5)
[2024-04-28] MEDS: Ceftriaxone 1 GM/50 ML BAG IV (22:34)
--- NOTE | 2024-04-28 23:12 | EX.ED.DYSGE1 ---
HPI History of Present Illness Chief Complaint: Flank Pain Detail of Chief Complaint: Right flank pain, odor to urine and cloudy urine Informant: patient Onset/Context/Timing Onset: Days Context: Gradual Onset Timing: Continuous Quality: Pain Location: Left flank Current Severity: Mild Maximum Severity: Moderate Worsened by: Movement Relieved by: Nothing Associated Symptoms Associated Symptoms: Urinary symptoms Narrative Narrative: Patient is a 58-year-old woman. She has history of hyperlipidemia, hypertension, thrombocytosis, iron deficiency anemia, alcohol disorder who presents with odor to her urine with frequency left flank pain. She denies history of renal ureterolithiasis. She denies fever, chills night sweats. She denies vomiting or diarrhea. She does endorse nausea. She denies history of trauma. She denies respiratory symptoms. Denies cardiac symptoms. She has had urinary tract infection in the past as well as pyelonephritis. She is not had an infection for some time. Prior similar symptoms: Yes Recent Illness/Hospitalization: No PFSH [facility] Medical History Hypertension Gastroesophageal reflux disease Leukocytosis Acute pyelonephritis Substance abuse Alcohol abuse Chronic pain Kidney stones Smoker Sleep apnea Pulmonary embolism TIA (transient ischemic attack) Stroke/cerebrovascular accident COPD (chronic obstructive pulmonary disease) Asthma Home Medications ?Medication ?Instructions ?Recorded ?Last Taken ?Type albuterol sulfate 2.5 mg/3 mL 2.5 mg (3 mL) inhalation Q4H PRN 10/20/17 02/08/23 Rx (0.083 %) solution for nebulization #25 vials albuterol sulfate 90 mcg/actuation 1 - 2 puff inhalation PRN PRN Sob 05/18/18 02/08/23 History aerosol inhaler (Ventolin HFA) &/Or Wheezing epinephrine 0.3 mg/0.3 mL 0.3 mg (0.3 mL) IM X1 ##1 01/21/19 Unknown Rx injection, auto-injector cephalexin 500 mg capsule 500 mg PO Q12 #14 CAPSULES 12/30/23 Unknown Rx cephalexin 500 mg capsule 500 mg PO Q6 #40 CAPSULES 04/28/24 Unknown Rx hydrocodone-acetaminophen 5-325mg 1 tab PO Q6H PRN PRN Pain 3 days 04/28/24 Unknown Rx 5mg-325mg #10 TABLETS Allergy/AdvReac Type Severity Reaction Status Date / Time peanut Allergy Anaphylaxis Verified 04/28/24 21:02 tree nut (Tree Nut) Allergy Anaphylaxis Verified 04/28/24 21:02 Family History Mother COPD (chronic obstructive pulmonary disease) Hypertension Father Epilepsy Surgical History History of bilateral ligation of fallopian tubes History of cholecystectomy Social History household members: none Smoking Status: Current every day smoker tobacco type: cigarettes alcohol intake: former substance use type: marijuana ROS ROS ED Constitutional Constitutional ED: Denies chills, fever(s) or subjective Eyes Eyes: Denies blurry vision or change in vision ENT ENT ED: Denies ear pain or rhinorrhea Cardiovascular Cardiovascular: Denies chest pain or palpitations Respiratory/Chest Respiratory/Chest: Denies cough, dyspnea or dyspnea on exertion Gastrointestinal Gastrointestinal: Reports abdominal pain and nausea; Denies diarrhea, melena or vomiting Genitourinary Genitourinary ED: Denies dysuria or urinary frequency Musculoskeletal Musculoskeletal: Denies arthralgias or myalgias Integumentary Denies rash Hematologic/Lymphatic Hematologic/Lymphatic: Reports systems reviewed and no addt'l complaints, except as documented EXAM Physical Exam Const Vital Signs: 04/28/24 21:02 04/28/24 21:03 Temperature 97.6 F L 98 F Temperature Source Oral Oral Pulse Rate 102 H 78 Respiratory Rate 22 H 16 Blood Pressure 181/89 H 138/74 H Blood Pressure Mean 119 95 Pulse Ox 100 98 Oxygen Delivery Method Room Air Room Air Positive well nourished and well developed Constitutional Narrative: Patient does not appear well. She is uncomfortable walking from the restroom to her room. General Appearance ED: well developed; Negative for cyanotic, diaphoretic or NAD HEENT Reports moist mucous membranes HEENT Narrative: Head is atraumatic normocephalic. Ears normal. Nares patent. Eyes PERRL and EOMs intact bilaterally General Eye ED: Negative for pale conjunctiva or scleral icterus Neck no lymphadenopathy, supple and no JVD Resp normal respiratory effort and clear to auscultation bilaterally Cardio regular rate, regular rhythm, S1 normal heart sound, S2 normal heart sound and no murmurs GI normal to inspection, nondistended, normoactive bowel sounds, non-distended and no masses; Negative for non-tender or hepatosplenomegaly Palpation: soft and tender other (There is tenderness over the right kidney.) Back/Spine General Back: CVA tenderness right Extremity normal to inspection General Extremety ED: Negative for edema or tenderness General Extremity: Negative for edema Neuro oriented x3 and CN's II-XII intact bilaterally Sensorium / Orientation: alert Psych mental status grossly normal Skin no rashes or lesions noted, no wounds and skin turgor normal General Skin Exam: elasticity normal MDM MDM MDM Narrative Medical decision making narrative: Differential diagnosis is flank pain unknown etiology, pyelonephritis, obstructing ureteral stone with infection, complicated urinary tract infection. Will obtain CBC, BMP and UA. Lab Data Attestation: I reviewed the patient's lab results. Lab results narrative: CBC is normal with a normal differential. UA is consistent with infection. She has 25-50 WBCs no epithelial cells with 4+ bacteria. Macro was positive for occult blood, nitrites and leukoesterase. This is consistent with infection. Basic metabolic panel is normal. GFR is 71. Labs: Laboratory Results - last 24 hr 04/28/24 04/28/24 21:28 21:29 WBC 9.0 RBC 5.24 Hgb 14.7 Hct 46.3 MCV 88.4 MCH 28.1 MCHC 31.7 L RDW Std Deviation 44.0 H RDW Coeff of Madhu 13.6 Plt Count 380 MPV 9.6 Immature Gran % (Auto) 0.300 Neut % (Auto) 64.5 Lymph % (Auto) 22.8 [place] % (Auto) 10.7 H Eos % (Auto) 1.1 Baso % (Auto) 0.6 Absolute Neuts (auto) 5.8 Absolute Lymphs (auto) 2.04 Nucleated RBC % 0 Sodium 135 L Potassium 3.2 L Chloride 98 Carbon Dioxide 30.0 Anion Gap 7 BUN 18 Creatinine 0.88 Estim Creat Clear Calc 69.59 Est GFR (MDRD) Af Amer 85 Est GFR (MDRD) Non-Af 71 BUN/Creatinine Ratio 20.5 H Glucose 107 H Calcium 9.3 Urine Color Yellow Urine Clarity Cloudy Urine pH 6.5 Ur Specific [place] 1.015 Urine Protein 30 H Urine Glucose (UA) Normal Urine Ketones Negative Urine Occult Blood 150 H Urine Nitrite Positive H Urine Bilirubin Negative Urine Urobilinogen 1 H Ur Leukocyte Esterase 100 H Urine RBC 5-10 SEEN Urine WBC 25-50 SEEN Ur Squamous Epith Cells 0-5 SEEN Ur Renal Epithelial Cell 0-5 SEEN Urine Bacteria 4+ Urine Mucus 0 SEEN Additional Tests and Interventions Additional Tests or Interventions: Patient has pyelonephritis. She received dose of Rocephin in the emergency department discharge to home with prescription and follow-up with her doctor. Urine culture was sent. Discharge Plan Triage Chief Complaint: Flank Pain ED Provider: Tereso Bajwa Dx/Rx/DC Orders Clinical Impression: Pyelonephritis of right kidney, HLD (hyperlipidemia), Pulmonary hypertension, Elevated blood pressure reading with diagnosis of hypertension Instructions: ED Pyelonephritis, Female (Adult) Prescriptions: New hydrocodone-acetaminophen 5-325 mg tablet 1 tab PO Q6H PRN PRN (Reason: Pain) 3 Days Qty: 10 0RF cephalexin 500 mg capsule 500 mg PO Q6 Qty: 40 0RF No Action albuterol sulfate 2.5 MG/3 ML solution for nebulization 2.5 mg INHALATION Q4H PRN Qty: 25 0RF Rx Instructions: Use q4 hours and PRN for wheezing albuterol sulfate [Ventolin HFA] 18 GM HFA aerosol inhaler 1 - 2 puff inhalation PRN PRN (Reason: Sob &/Or Wheezing) Patient Comments: inhale 2 puffs by mouth every 4 hours as directed if needed for wheezing or shortness of breath epinephrine 0.3 MG syringe 0.3 mg IM X1 Qty: 1 1RF cephalexin 500 mg capsule 500 mg PO Q12 Qty: 14 0RF Primary Care Provider: Steven Welsh Referrals: Steven Welsh MD [Primary Care Provider] - 3-5 Days Activity Restrictions/Additional Instructions: 1. Return if you have vomiting unable to eat or drink anything or take your medications without vomiting 2. You should start to feel improvement within 48 to 72 hours 3. Take medication as directed and until gone. Print Language: Turkish Disposition Disposition: Home, Self Care
[2024-04-28 23:41] VITALS: BP 155/83; PULSE 85; RESP 16; TEMP 36.6; O2SAT 96
== END 2024-04-28 23:43 | disposition home or self-care (01) ==
PROVIDERS: Emergency Provider Emergency Medicine; PCP Family Medicine; Referring Provider Emergency Medicine; Visit Provider Emergency Medicine
DX: N12 Tubulo-interstitial nephritis, not specified as acute or chronic (principal); I27.20 Pulmonary hypertension, unspecified; J44.9 Chronic obstructive pulmonary disease, unspecified; I10 Essential (primary) hypertension; E78.5 Hyperlipidemia, unspecified; F17.210 Nicotine dependence, cigarettes, uncomplicated; Z79.899 Other long term (current) drug therapy
CPT/HCPCS: 80048; 81001; 85025; 87077; 87086; 87088; 87186; 96365; 96375; 99283; A4216; J2405

== ENCOUNTER 2024-07-15 15:01 | Inpatient (IN) | payer MEDICARE, MEDICAID, SELFPAY ==
[2024-07-15] VITALS (18 sets, daily range): BP systolic 110–144; BP diastolic 56–90; PULSE 74–103; RESP 14–20; TEMP 36.6–37.1; O2SAT 87–97; BMI 28.4
--- NOTE | 2024-07-15 15:59 | EKG12_ITS ---
Test Reason : Blood Pressure : */* mmHG Vent. Rate : 95 BPM Atrial Rate : 95 BPM P-R Int : 146 ms QRS Dur : 90 ms QT Int : 388 ms P-R-T Axes : 80 80 82 degrees QTcB Int : 487 ms Normal sinus rhythm Right atrial enlargement Nonspecific ST abnormality Prolonged QT Abnormal ECG Confirmed by RICH VARGHESE, ROLAN ([id number]), greeting card editor JACEY MARK ([id number]) on 07/17/2024 8:40:49 AM Referred By: Confirmed By: ROLAN VILLANUEVA MD
[2024-07-15 16:15] LABS: Absolute Lymphocyte Count 1.68 X10^3/uL (0.83-4.51); Absolute Neutrophil Count 7.9 X10^3/uL (2.0-7.7); Basophil# 0.06 X10^3/uL; Basophil% 0.5 % (0-1); Eosinophil# 0.01 X10^3/uL; Eosinophils% 0.1 % (0-5); Hematocrit 43.4 % (37-47); Hemoglobin 14.1 g/dL (12.0-15.0); Lymphocyte # 1.68 X10^3/ul (0.83-4.51); Lymphocyte % 14.7 % (19-41); Mean Corp Hgb Conc 32.5 g/dL (32-36); Mean Corpuscular Hgb 28.7 pg (27.0-32.0); Mean Corpuscular Volume 88.2 fL (81-99); Mean Platelet Vol. 9.3 fl (6.2-12.0); Monocyte# 1.74 X10^3/uL; Monocyte% 15.3 % (0-10); NRBC Flagged by Analyzer 0 % (0-5); Neutrophil # 7.85 X10^3/uL (2.7-7.7); POSITIVE DIFFERENTIAL YES; Platelet Count 386 K/mm3 (150-450); RBC Distribution Width CV 13.6 % (11.6-14.6); RBC Distribution Width SD 44.4 fl (35.1-43.9); Red Blood Count 4.92 M/mm3 (4.2-5.4); White Blood Count 11.4 K/mm3 (4.4-11.0)
[2024-07-15 16:17] LABS: Differential Indicated SCAN CRITERIA MET
[2024-07-15] MEDS: Ipratropium/Albuterol Sulfate 3 ML AMPUL.NEB INHALATION (16:30)
[2024-07-15 16:32] LABS: ALB/GLOB Ratio 0.8 RATIO (0.9-2.4); AST(SGOT) 16 U/L (15-37); Alanine Aminotransfer ALT/SGPT 15 U/L (13-56); Albumin, Serum 3.1 g/dL (3.2-5.0); Alkaline Phosphatase 101 U/L (45-117); Anion Gap 8 (5-15); BUN 9 mg/dL (7-18); BUN/Creat Ratio 10.9 RATIO (10-20); Calcium,Total 8.6 mg/dL (8.5-10.1); Chloride 99 mmol/L (98-107); Creatinine, Serum 0.82 mg/dL (0.55-1.02); EST Glomerular Filtration Rate 76 mL/min (>60); Est Glom Filt Rate - Afr Amer 92 mL/min (>60); Estimated Creatinine Clearance 74.21 ml/min; Globulin 4.1 g/dL (2.2-4.2); Glucose 112 mg/dL (74-106); Lipase 22 U/L (13-75); Potassium 3.2 mmol/L (3.5-5.1); Protein, Total 7.2 g/dL (6.4-8.2); Sodium Level 135 mmol/L (136-145)
[2024-07-15 16:45] LABS: Anisocytosis RARE; Platelet Estimate ADEQUATE (ADEQ); Red Cell Morphology NORM C+C NORMAL (NORM C&C)
--- NOTE | 2024-07-15 16:50 | RAD_ITS ---
STUDY: X-RAY CHEST REASON FOR EXAM: Female, 59 years old. cough TECHNIQUE: PA and lateral views of the chest. COMPARISON: None. FINDINGS: No visualized consolidation. COPD/emphysematous changes/interstitial lung disease. There is no demonstrated pleural abnormality. Normal size heart. Normal mediastinum and ashley. Normal visualized pulmonary arteries. There is atherosclerotic calcification of the aortic arch with tortuosity. There are diffuse degenerative changes of the visualized thoracic spine. Normal visualized ribs, clavicles, and shoulders. There is no demonstrated abnormality of the visualized soft tissue structures of the upper abdomen. RAD/Chest PA and Lateral IMPRESSION: 1. COPD/emphysematous changes/interstitial lung disease Electronically Signed: Javon Neumann MD at 18:00 EST ,
--- NOTE | 2024-07-15 16:59 | EDS_ITS ---
HPI History of Present Illness Chief Complaint: Dizziness Informant: patient Narrative Narrative: Patient is a 59-year-old female with history of COPD, tobacco use, pulmonary hypertension, hypertension, hyperlipidemia and kidney stones presenting with generalized malaise, dizziness, nausea, cough, shortness of breath and back pain. Patient states that she has not been feeling good all day is been more fatigued. She tried to go downstairs for the got dizzy feeling she was going to pass out. She did she has had some increased back pain for the past week with the right worse than the left. She states is her kidneys at her. She also for the past 1 is an intermittent sharp pains in her left lower quadrant. She denies any urinary symptoms such as dysuria or hematuria. She denies any change in her bowel movements but notes it has been a couple days since she had a bowel movement. She has been passing gas. She denies any chest pain or tightness but does feel more short of breath and feels like she is been wheezing more. She is been coughing and nothing comes up but she feels like there is mucus that needs to come out. She denies any URI symptoms. She notes her daughter was sick over [place] and she was around her. She does report a mild headache. No fevers reported. Does not take anything for symptoms prior to arrival. Does take a daily inhaler but no other medications. No other complaints or concerns reported at this time. [facility] Medical History Hypertension Gastroesophageal reflux disease Leukocytosis Acute pyelonephritis Substance abuse Alcohol abuse Chronic pain Kidney stones Smoker Sleep apnea Pulmonary embolism TIA (transient ischemic attack) Stroke/cerebrovascular accident COPD (chronic obstructive pulmonary disease) Asthma Home Medications ?Medication ?Instructions ?Recorded ?Last Taken ?Type albuterol sulfate 2.5 mg/3 mL 2.5 mg (3 mL) inhalation Q4H PRN 10/20/17 02/08/23 Rx (0.083 %) solution for nebulization #25 vials albuterol sulfate 90 mcg/actuation 1 - 2 puff inhalation PRN PRN Sob 05/18/18 02/08/23 History aerosol inhaler (Ventolin HFA) &/Or Wheezing epinephrine 0.3 mg/0.3 mL 0.3 mg (0.3 mL) IM X1 ##1 01/21/19 Unknown Rx injection, auto-injector Allergy/AdvReac Type Severity Reaction Status Date / Time peanut Allergy Anaphylaxis Verified 07/15/24 15:02 tree nut (Tree Nut) Allergy Anaphylaxis Verified 07/15/24 15:02 Family History Mother COPD (chronic obstructive pulmonary disease) Hypertension Father Epilepsy Surgical History History of bilateral ligation of fallopian tubes History of cholecystectomy Social History household members: none Smoking Status: Current every day smoker tobacco type: cigarettes alcohol intake: former substance use type: marijuana ROS ROS ED Constitutional Constitutional ED: Reports other Details: fatigue, near syncope ; Denies chills or fever(s) Eyes Eyes: Denies change in vision ENT ENT ED: Denies rhinorrhea or sore throat Cardiovascular Cardiovascular: Denies chest pain Respiratory/Chest Respiratory/Chest: Reports cough and dyspnea; Denies sputum Gastrointestinal Gastrointestinal: Denies abdominal pain, nausea or vomiting Genitourinary Genitourinary ED: Denies dysuria or urinary frequency Musculoskeletal Musculoskeletal: Reports back pain and myalgias Integumentary Denies rash Neurologic Neurologic: Reports weakness; Denies paresthesias Psychiatric Psychiatric: Reports anxiety Hematologic/Lymphatic Hematologic/Lymphatic: Denies easy bleeding or easy bruising EXAM Physical Exam Const Vital Signs: 07/15/24 15:02 07/15/24 16:31 07/15/24 16:31 Temperature 98 F Temperature Source Oral Pulse Rate 100 103 H Respiratory Rate 16 19 H Respiratory Effort Respiratory Pattern Blood Pressure 113/56 L Blood Pressure Mean 75 Pulse Ox 96 94 Oxygen Delivery Method Room Air Room Air Oxygen Flow Rate (L/min) 07/15/24 17:01 07/15/24 17:04 07/15/24 17:13 Temperature 98.7 F Temperature Source Oral Pulse Rate 77 87 85 Respiratory Rate 20 H 20 H 18 Respiratory Effort Respiratory Pattern Blood Pressure 135/90 H 143/83 H Blood Pressure Mean 105 103 Pulse Ox 93 92 93 Oxygen Delivery Method Room Air Oxygen Flow Rate (L/min) 07/15/24 17:15 07/15/24 17:30 07/15/24 17:56 Temperature Temperature Source Pulse Rate 94 83 85 Respiratory Rate 14 20 H Respiratory Effort Respiratory Pattern Blood Pressure 112/79 144/83 H Blood Pressure Mean 90 101 Pulse Ox 92 92 Oxygen Delivery Method Oxygen Flow Rate (L/min) 07/15/24 17:57 07/15/24 18:00 07/15/24 18:15 Temperature Temperature Source Pulse Rate 82 80 Respiratory Rate 16 16 Respiratory Effort Respiratory Pattern Blood Pressure 113/77 110/65 123/69 H Blood Pressure Mean 88 80 83 Pulse Ox 97 96 Oxygen Delivery Method Oxygen Flow Rate (L/min) 07/15/24 18:45 07/15/24 18:46 07/15/24 18:51 Temperature Temperature Source Pulse Rate 82 Respiratory Rate 14 Respiratory Effort Normal Non-Labored Respiratory Pattern Normal Blood Pressure 120/71 Blood Pressure Mean 85 Pulse Ox 93 Oxygen Delivery Method Oxygen Flow Rate (L/min) 07/15/24 19:00 07/15/24 21:00 07/15/24 22:57 Temperature Temperature Source Pulse Rate 81 74 Respiratory Rate 17 17 Respiratory Effort Respiratory Pattern Blood Pressure 132/75 H 120/63 Blood Pressure Mean 92 82 Pulse Ox 91 91 87 Oxygen Delivery Method Room Air Oxygen Flow Rate (L/min) 07/15/24 22:57 07/15/24 22:58 Temperature 97.9 F Temperature Source Pulse Rate 86 Respiratory Rate 14 Respiratory Effort Respiratory Pattern Blood Pressure 123/75 H Blood Pressure Mean 91 Pulse Ox 92 92 Oxygen Delivery Method Nasal Cannula Oxygen Flow Rate (L/min) 2 Positive well nourished and well developed General Appearance ED: well developed and NAD HEENT Reports dry mucous membranes Mouth ED: Yes dry mucous membranes Mouth: dry mucous membranes Eyes PERRL Neck supple and no JVD Chest Wall inspection of chest normal and palpation of chest normal Resp Resp Narrative: Mild increased work of breathing. Coarse breath sounds throughout with expiratory wheezing present diffusely Auscultation: Negative for rales or rhonchi Cardio regular rate and regular rhythm GI normal to inspection, nondistended, normoactive bowel sounds, non-tender and non-distended Back/Spine no CVA tenderness Thoracic Spine / Upper Back: Negative for thoracic spinal tenderness Lumbar Spine / Lower Back: Negative for lumbar spinal tenderness Extremity normal to inspection General Extremety ED: Negative for edema General Extremity: Negative for edema Neuro oriented x3 Sensorium / Orientation: alert Motor Exam: general weakness Psych mental status grossly normal Skin no rashes or lesions noted and no wounds MDM MDM MDM Narrative Medical decision making narrative: Patient evaluated for near syncope today with worsening shortness of breath and cough as well as increased back pain for the past week. Differential includes influenza, kidney stone, pyelonephritis, pulmonary emboli, pneumonia, viral syndrome, COPD exacerbation, ACS, colitis and urinary tract infection. Patient is given DuoNeb treatment in the ER. She has some mild improvement. She is given initially Toradol for her pain and IV fluids. On repeat evaluation she continues to have pain and is given 1 dose of morphine in the emergency room. Initial chest x-ray viewed by myself does not show any acute process. Radiology interpreted the COPD/emphysematous changes with interstitial lung disease. Given her continued pain decision made to obtain a CT of the abdomen pelvis will also perform a CTA of the chest with PE study for further evaluation of her respiratory complaints. Lab work shows a mild leukocytosis of 11.4 but otherwise largely normal CBC. High since he troponin normal. Patient has mild hyponatremia sodium 134 and hypokalemia potassium of 3.2. Magnesium however is normal. Remainder of CMP largely normal. CK level obtained given her body aches but is normal with a level of 44. Urinalysis is not consistent with UTI. CT a of the chest does not show PE but does show crescent-shaped groundglass edema with crowding of the bronchovascular structures present to the medial basilar segment of the right lower lobe likely representing developing volume overload or pneumonia. There is also incidental finding of arterial branch focal aneurysm however radiology felt that it is not significant. I suspect patient might be developing pneumonia which fits her clinical picture and that is why she is having generalized malaise and increased respiratory symptoms. She clinically does not appear to have fluid overload. CT abdomen pelvis shows multiple chronic findings with no acute process. Patient is ambulated and dropped to 88%. Does not feel comfortable going home. Will be admitted for IV antibiotics, IV steroids, breathing treatments and further monitoring. Case is discussed with hospitalist, Dr. Hartmann. History & Record Review Additional record(s) reviewed:: Prior inpatient record (Admission on 06/04 through 06/05 for COPD exacerbation) Lab Data Attestation: I reviewed the patient's lab results. Labs: Laboratory Results - last 24 hr 07/15/24 07/15/24 16:08 17:58 WBC 11.4 H RBC 4.92 Hgb 14.1 Hct 43.4 MCV 88.2 MCH 28.7 MCHC 32.5 RDW Std Deviation 44.4 H RDW Coeff of Madhu 13.6 Plt Count 386 MPV 9.3 Immature Gran % (Auto) 0.400 Neut % (Auto) 69.0 Lymph % (Auto) 14.7 L [place] % (Auto) 15.3 H Eos % (Auto) 0.1 Baso % (Auto) 0.5 Absolute Neuts (auto) 7.9 H Absolute Lymphs (auto) 1.68 Nucleated RBC % 0 Differential Comment SEE COMMENT Diff Path Review May foll Platelet Estimate ADEQUATE RBC Morphology NORM C+C Anisocytosis RARE Sodium 135 L Potassium 3.2 L Chloride 99 Carbon Dioxide 28.0 Anion Gap 8 BUN 9 Creatinine 0.82 Estim Creat Clear Calc 74.21 Est GFR (MDRD) Af Amer 92 Est GFR (MDRD) Non-Af 76 BUN/Creatinine Ratio 10.9 Glucose 112 H Calcium 8.6 Magnesium 1.8 Total Bilirubin 0.40 AST 16 ALT 15 Alkaline Phosphatase 101 Total Creatine Kinase 44 Troponin I High Sens 15 Total Protein 7.2 Albumin 3.1 L Globulin 4.1 Albumin/Globulin Ratio 0.8 L Lipase 22 Urine Color Yellow Urine Clarity Clear Urine pH 6.5 Ur Specific [place] 1.010 Urine Protein 30 H Urine Glucose (UA) Normal Urine Ketones Negative Urine Occult Blood 25 H Urine Nitrite Negative Urine Bilirubin Negative Urine Urobilinogen Normal Ur Leukocyte Esterase Negative Urine RBC 0-5 SEEN Urine WBC 0-5 SEEN Ur Squamous Epith Cells 0-5 SEEN Urine Bacteria 1+ Hyaline Casts 0-5 SEEN Urine Mucus 0 SEEN Radiography Diagnostic Testing: Clinical Impression(s) from Imaging Studies Chest X-Ray 07/15/24 16:50 IMPRESSION: 1. COPD/emphysematous changes/interstitial lung disease Electronically Signed: Javon Neumann MD at 18:00 EST Reading Location ID and State: [facility] / [place] , Service support , Abdomen/Pelvis CT 07/15/24 18:10 IMPRESSION: 1. Moderate to severe atherosclerotic plaque and chronic mural thrombus and stenosis of the bilateral common iliac and internal iliac arteries 2. No aortic dissection or aneurysm or active hemorrhaging 3. Patchy hypodensity and heterogeneity is seen in the uterine fundus which was not seen on the prior study and could be related to degenerated fibroids or an nonspecified endometrial myometrial process not assessed by CT. Correlate with pelvic ultrasound or MRI of the pelvis and assessment and physical exam by gynecology to ensure no underlying malignancy is present. 4. A few scattered colonic diverticula are present without evidence of acute inflammation. No visualized colonic masses or wall thickening. No bowel obstruction is present. The appendix is visualized and appears normal. Electronically Signed: Javon Neumann MD at 21:03 EST Reading Location ID and State: [id number] / , Service support , Chest CTA 07/15/24 18:10 IMPRESSION: 1. [place]-shaped groundglass edema with crowding of the bronchovascular structures is present in the medial basilar segment of the right lower likely representing developing volume overload or pneumonia see images 50 through 64/235 series 2. 2. Interval development of a small 6.3 mm peripheral arterial branch focal aneurysm in the medial retrocardiac region of the right lower lobe see images 46 through 50/235 series 2. No visualized arteriovenous malformation. This can be assessed by pulmonology or cardiothoracic surgery service consultation if clinically desired but is not felt to be significant. No demonstrated pulmonary embolism or arterial dissection. Electronically Signed: Javon Neumann MD at 20:17 EST , Rhythm Strip Rhythm Strip: Sinus Rhythm Ectopy: None EKG Initial EKG: Attestation: I personally reviewed and interpreted this EKG as follows: Comments: Normal sinus rhythm at a rate of 95 bpm Normal axis QRS Borderline prolonged QTc at 388/[address] segment changes Prior EKG tracings: available for review Prior: Unchanged Management Discussion w/another healthcare provider: Hospitalist Discharge Plan Triage Chief Complaint: Dizziness ED Provider: Queenie Herrera Dx/Rx/DC Orders Clinical Impression: Right lower lobe pneumonia, COPD with exacerbation, Hypoxia, Acute hypokalemia Prescriptions: No Action albuterol sulfate 2.5 MG/3 ML solution for nebulization 2.5 mg INHALATION Q4H PRN Qty: 25 0RF Rx Instructions: Use q4 hours and PRN for wheezing albuterol sulfate [Ventolin HFA] 18 GM HFA aerosol inhaler 1 - 2 puff inhalation PRN PRN (Reason: Sob &/Or Wheezing) Patient Comments: inhale 2 puffs by mouth every 4 hours as directed if needed for wheezing or shortness of breath epinephrine 0.3 MG syringe 0.3 mg IM X1 Qty: 1 1RF Primary Care Provider: Steven Welsh Referrals: Steven Welsh MD [Primary Care Provider] - Print Language: Moroccan Disposition Disposition: Acute Care Hospital [facility]
[2024-07-15 17:00] LABS: CPK Total, Creatine Kinase 44 U/L (26-192); Magnesium 1.8 mg/dL (1.6-2.6); Troponin-I HS 15 pg/mL (3.0-54.0)
[2024-07-15] MEDS: 0.9% Normal Saline (1000mL) 1,000 ML 999 ML IV (17:05)
[2024-07-15] MEDS: Ketorolac 15 MG/ML Vial IV (17:06)
[2024-07-15 18:07] LABS: Mucous, Urine 0 SEEN /hpf (<or=2+)
--- NOTE | 2024-07-15 18:10 | CT_ITS ---
STUDY: CTA CHEST REASON FOR EXAM: Female, 59 years old. SOB, concern for PE RADIATION DOSAGE (If Supplied By Facility): CTDIvol = ( 19.88 ) mGy, DLP = ( 448.39 ) mGycm TECHNIQUE: The examination was performed with the intravenous administration of IV 100mL Isovue-370. Post-processing of the angiographic images was performed, with multiplanar reformation and 3D reconstruction. Individualized dose optimization techniques were used for this CT. COMPARISON: CTA of the chest dated June 04, 2023. Chest x-ray dated July 07, 2024 FINDINGS: Mild cystic emphysematous changes are present bilaterally with scattered interstitial fibrotic opacities. No demonstrated consolidation or active pulmonary edema or pleural effusion. No pneumothorax. No visualized masses or nodules or spiculated lesions on the current study. [place]-shaped groundglass edema with crowding of the bronchovascular structures is present in the medial basilar segment of the right lower likely representing developing volume overload or pneumonia see images 50 through 64/235 series 2. Interval development of a small 6.3 mm peripheral arterial branch focal aneurysm in the medial retrocardiac region of the right lower lobe see images 46 through 50/235 series 2. No visualized arteriovenous malformation. Small amounts of air are present in the pulmonary trunk related to recent IV placement and contrast injection. Normal enhancement of the main pulmonary artery and right and left pulmonary arteries. Normal enhancement of the bilateral peripheral pulmonary arteries. There is no demonstrated pulmonary embolism. There is atherosclerotic calcification of the aortic arch with tortuosity. There is no demonstrated aortic dissection. Normal heart and pericardium. There are calcifications of the coronary arteries. Normal mediastinum. Normal hilar regions. Normal visualized trachea and bronchi. The lungs are well expanded. Normal pleura. Normal chest wall structures. There are degenerative changes of thoracic spine. Included upper abdomen: Small hiatal hernia noted. The remaining visualized structures are unremarkable. CT/CTA Chest W/WO Contrast IMPRESSION: 1. [place]-shaped groundglass edema with crowding of the bronchovascular structures is present in the medial basilar segment of the right lower likely representing developing volume overload or pneumonia see images 50 through 64/235 series 2. 2. Interval development of a small 6.3 mm peripheral arterial branch focal aneurysm in the medial retrocardiac region of the right lower lobe see images 46 through 50/235 series 2. No visualized arteriovenous malformation. This can be assessed by pulmonology or cardiothoracic surgery service consultation if clinically desired but is not felt to be significant. No demonstrated pulmonary embolism or arterial dissection. Electronically Signed: Javon Neumann MD at 20:17 EST ,
--- NOTE | 2024-07-15 18:10 | CT_ITS ---
STUDY: CT ABDOMEN AND PELVIS WITH CONTRAST REASON FOR EXAM: Female, 59 years old. Back pain RADIATION DOSAGE (If Supplied By Facility): CTDIvol = ( 22.47 ) mGy, DLP = ( 889.96 ) mGycm TECHNIQUE: Transaxial images were obtained from the dome of the diaphragm to the symphysis pubis without oral contrast. ml of 100mL Isovue-370 contrast was administered. Sagittal and coronal images were reconstructed. Individualized dose optimization techniques were used for this CT. COMPARISON: CT of abdomen and pelvis dated February 17, 2016. CTA of the chest dated July 15, 2024 FINDINGS: Lung findings on the CT of the chest report. Normal liver. There are surgical clips in the gallbladder fossa consistent with a prior cholecystectomy. Mild postcholecystectomy dilatation of the CBD and intrahepatic biliary ducts. No liver masses or cirrhotic changes. No visualized CBD stone by CT criteria. No hydronephrosis or renal masses or large radiopaque kidney stones. Atherosclerotic calcification of the intraparenchymal left renal artery noted. Normal spleen. Normal pancreas. Normal bilateral adrenal glands. There is moderate cortical atrophy of the right kidney, consistent with chronic medical renal disease. There is mild cortical atrophy of the left kidney, consistent with chronic medical renal disease. No hydronephrosis is present. There is a small hiatal hernia. Normal small intestine. A few scattered colonic diverticula are present without evidence of acute inflammation. No visualized colonic masses or wall thickening. No bowel obstruction is present. The appendix is visualized and appears normal. There is diffuse atherosclerotic calcification of the abdominal aorta, without a demonstrated aneurysm. Moderate atherosclerotic plaque and stenosis and chronic mural thrombus is present in the bilateral common iliac arteries. Similar findings are seen in the bilateral internal iliac arteries with severe atherosclerotic stenosis and poor enhancement due to significant and chronic disease. No demonstrated aortic aneurysm or dissection or active hemorrhaging or periaortic inflammation. Normal inferior vena cava. Normal retroperitoneum. Normal urinary bladder. Patchy hypodensity and heterogeneity is seen in the uterine fundus which was not seen on the prior study and could be related to degenerated fibroids or an nonspecified endometrial myometrial process not assessed by CT. Correlate with pelvic ultrasound or MRI of the pelvis and assessment and physical exam by gynecology to ensure no underlying malignancy is present. Normal abdominal wall. There are diffuse degenerative changes of the visualized lumbar spine. CT/Abdomen/Pelvis W IV Cont ONLY IMPRESSION: 1. Moderate to severe atherosclerotic plaque and chronic mural thrombus and stenosis of the bilateral common iliac and internal iliac arteries 2. No aortic dissection or aneurysm or active hemorrhaging 3. Patchy hypodensity and heterogeneity is seen in the uterine fundus which was not seen on the prior study and could be related to degenerated fibroids or an nonspecified endometrial myometrial process not assessed by CT. Correlate with pelvic ultrasound or MRI of the pelvis and assessment and physical exam by gynecology to ensure no underlying malignancy is present. 4. A few scattered colonic diverticula are present without evidence of acute inflammation. No visualized colonic masses or wall thickening. No bowel obstruction is present. The appendix is visualized and appears normal. Electronically Signed: Javon Neumann MD at 21:03 EST ,
[2024-07-15 18:17] LABS: Color, Urine Yellow (Yellow); Glucose, Dipstick Normal (Normal); Ketone-Dipstick Negative (Negative); Leukocyte Esterase-Dipstick Negative /ul (Negative); Nitrite-Dipstick Negative (Negative); Occult Blood-Urine 25 /ul (Negative); Protein-Dipstick 30 mg/dl (Negative); Urine Bilirubin Dipstick Negative (Negative); Urine Clarity Clear (Clear); Urine Urobilinogen Normal (Normal); Urine pH 6.5 (5.0 - 8.0)
[2024-07-15] MEDS: Morphine 4 MG/ML Syringe IV (18:20)
[2024-07-15 18:56] LABS: Bacteria 1+ /hpf (None Seen); Squamous Epithelial Cells - UA 0-5 SEEN /hpf (5-10)
[2024-07-15 18:57] LABS: Red Blood Cells-Urine 0-5 SEEN /hpf (0-5); White Blood Cells 0-5 SEEN /hpf (0-5)
[2024-07-15 18:59] LABS: Hyaline Cast 0-5 SEEN /lpf (0-5)
--- NOTE | 2024-07-15 23:07 | PCM.HP.STD ---
[facility] - General General Date of Admission: 07/15/24 Date of Service: 07/15/24 Chief Complaint: SOB, Wheezing and Dizziness with Near Syncope. HPI Narrative SAVANNAH WILLINGHAM, is a 59 F with a past medical history of essential hypertension, hyperlipidemia, overweight; with BMI of 28.4 this admission with HELIO, cannabis abuse, history of EtOH abuse; patient denies actively drinking at this time, history of ongoing tobacco abuse; with subsequent asthma/COPD, history of PE, history of pulmonary hypertension, history of seizure, history of TIA/CVA, history of peanut allergy (anaphylaxis), history of tree nut allergy (anaphylaxis), MIKIE, history of thrombocytosis, history of renal calculi, history of pyelonephritis, GERD; with history of esophagitis, history of axillary hidradenitis suppurativa, history of eczema, history of cholecystectomy, history of tubal ligation, depression and OA; with chronic low back pain on as needed hydrocodone every 6 hours who presents to [facility] ER complaining of shortness of breath, wheezing and dizziness with a near syncopal event. Ms. Willingham reports her symptoms began approximately 1 day prior to admission with dyspnea on exertion and severe fatigue. Earlier in the day she tried to go down a flight of stairs and got dizzy and fell like she was going to pass out but did not actually lose consciousness. She also admits to persistent wheezing and a nonproductive cough but feels like mucus is stuck that she cannot mobilize. She additionally endorses a history of increased low back pain that is more noticeable on the Right than the Left. She did not attempt any treatment of her problems at home, rather deciding to come in for further evaluation and treatment. There was no report of fever, chills, runny nose, sore throat, chest pain, abdominal pain, nausea, vomiting, diarrhea or dysuria but she does admit to generalized weakness and constipation for the past few days along with patient sensing food is getting stuck in her esophagus intermittently and having to force herself to vomit to clear it. In the ER she was noted to have a CT scan of the chest that was negative for PE but did reveal crescent shaped ground-glass edema with crowding of the bronchovascular structures present to the medial basilar segment of the Right lower lobe likely due to developing Pneumonia complicated by additional CT evidence of patchy hypodensity and heterogeneity in the uterine fundus which was not seen on prior study could be related to a degenerated fibroids and/or nonspecified endometrial or myometrial process not assessed by CT with correlation recommended with pelvic ultrasound or MRI of the pelvis and recommendation for referral to gynecology to ensure no underlying malignancy is present compounded by clinical evidence of AE COPD with Acute Respiratory Insufficiency with Leukocytosis of 11.4 K and Hypokalemia of 3.2 mmol/L present on admission in addition to Near Syncopal event with persistent Generalized Weakness and suspected Esophageal Stenosis and she was then admitted to the PCU for ongoing care for stay that is expected to extend beyond 2 midnights. [facility] Medical History Hypertension Gastroesophageal reflux disease Leukocytosis Acute pyelonephritis Substance abuse Alcohol abuse Chronic pain Kidney stones Smoker Sleep apnea Pulmonary embolism TIA (transient ischemic attack) Stroke/cerebrovascular accident COPD (chronic obstructive pulmonary disease) Asthma Home Medications ?Medication ?Instructions ?Recorded ?Last Taken ?Type albuterol sulfate 2.5 mg/3 mL 2.5 mg (3 mL) inhalation Q4H PRN 10/20/17 02/08/23 Rx (0.083 %) solution for nebulization #25 vials albuterol sulfate 90 mcg/actuation 1 - 2 puff inhalation PRN PRN Sob 05/18/18 02/08/23 History aerosol inhaler (Ventolin HFA) &/Or Wheezing epinephrine 0.3 mg/0.3 mL 0.3 mg (0.3 mL) IM X1 ##1 01/21/19 Unknown Rx injection, auto-injector Allergy/AdvReac Type Severity Reaction Status Date / Time peanut Allergy Anaphylaxis Verified 07/15/24 15:02 tree nut (Tree Nut) Allergy Anaphylaxis Verified 07/15/24 15:02 Family History Mother COPD (chronic obstructive pulmonary disease) Hypertension Father Epilepsy Surgical History History of bilateral ligation of fallopian tubes History of cholecystectomy Social History household members: none Smoking Status: Current every day smoker tobacco type: cigarettes alcohol intake: former substance use type: marijuana ROS ROS Narrative Review of Systems: Constitutional: Patient admits to generalized weakness and fatigue but she denies fever or chills. Eyes: Patient denies changes in vision or discharge from eyes. ENT: Patient denies runny nose, sore throat or ear pain. Resp: Patient admits to dyspnea on exertion that progressed to shortness of breath at rest with wheezing and nonproductive cough as per HPI. CV: Patient denies chest pain, palpitations or heart racing. GI: Patient admits to mild constipation but she denies abdominal pain, nausea or vomiting. : Patient denies dysuria or hematuria. MSK: Patient admits to back pain that is worse on the Right > Left with myalgias but she denies arthralgias. Skin: Patient denies rash, abscess or jaundice. Psych: Patient denies symptoms of uncontrolled depression or anxiety. Neuro: Patient admits to generalized weakness but she denies headache, paresthesias or focal neurologic weakness. Allergy: Patient denies lip swelling, tongue swelling or urticaria. Hematology: Patient denies easy bleeding or easy bruisability. Endocrinology: Patient denies polyuria, polydipsia or polyphagia. 14 point review of systems otherwise negative save for positives noted above in HPI. Vital Signs Vital Signs Vital Signs: 07/15/24 15:02 07/15/24 16:31 07/15/24 16:31 Temperature 98 F Temperature Source Oral Pulse Rate 100 103 H Respiratory Rate 16 19 H Respiratory Effort Respiratory Pattern Blood Pressure 113/56 L Blood Pressure Mean 75 Pulse Ox 96 94 Oxygen Delivery Method Room Air Room Air Oxygen Flow Rate (L/min) 07/15/24 17:01 07/15/24 17:04 07/15/24 17:13 Temperature 98.7 F Temperature Source Oral Pulse Rate 77 87 85 Respiratory Rate 20 H 20 H 18 Respiratory Effort Respiratory Pattern Blood Pressure 135/90 H 143/83 H Blood Pressure Mean 105 103 Pulse Ox 93 92 93 Oxygen Delivery Method Room Air Oxygen Flow Rate (L/min) 07/15/24 17:15 07/15/24 17:30 07/15/24 17:56 Temperature Temperature Source Pulse Rate 94 83 85 Respiratory Rate 14 20 H Respiratory Effort Respiratory Pattern Blood Pressure 112/79 144/83 H Blood Pressure Mean 90 101 Pulse Ox 92 92 Oxygen Delivery Method Oxygen Flow Rate (L/min) 07/15/24 17:57 07/15/24 18:00 07/15/24 18:15 Temperature Temperature Source Pulse Rate 82 80 Respiratory Rate 16 16 Respiratory Effort Respiratory Pattern Blood Pressure 113/77 110/65 123/69 H Blood Pressure Mean 88 80 83 Pulse Ox 97 96 Oxygen Delivery Method Oxygen Flow Rate (L/min) 07/15/24 18:45 07/15/24 18:46 07/15/24 18:51 Temperature Temperature Source Pulse Rate 82 Respiratory Rate 14 Respiratory Effort Normal Non-Labored Respiratory Pattern Normal Blood Pressure 120/71 Blood Pressure Mean 85 Pulse Ox 93 Oxygen Delivery Method Oxygen Flow Rate (L/min) 07/15/24 19:00 07/15/24 21:00 07/15/24 22:57 Temperature Temperature Source Pulse Rate 81 74 Respiratory Rate 17 17 Respiratory Effort Respiratory Pattern Blood Pressure 132/75 H 120/63 Blood Pressure Mean 92 82 Pulse Ox 91 91 87 Oxygen Delivery Method Room Air Oxygen Flow Rate (L/min) 07/15/24 22:57 07/15/24 22:58 Temperature 97.9 F Temperature Source Pulse Rate 86 Respiratory Rate 14 Respiratory Effort Respiratory Pattern Blood Pressure 123/75 H Blood Pressure Mean 91 Pulse Ox 92 92 Oxygen Delivery Method Nasal Cannula Oxygen Flow Rate (L/min) 2 Weight Weight: 165 lb 9.074 oz Body Mass Index (BMI) 28.4 Physical Exam Const alert, oriented x3 and average body habitus Constitutional Narrative: Mild distress noted with chronically ill appearance. General Appearance: cooperative HEENT normocephalic, head/scalp atraumatic and hearing grossly normal bilaterally HEENT Narrative: Mucous membranes dry. Eyes PERRL and EOMs intact bilaterally Neck no lymphadenopathy and supple Resp Resp Narrative: Mildly increased work of breathing with coarse breath sounds throughout and expiratory wheezing. Auscultation: wheezes Cardio regular rate and regular rhythm GI normal to inspection, nondistended, normoactive bowel sounds, soft to palpation, non-tender and non-distended Extremity normal to inspection, full ROM and no clubbing, cyanosis or edema Skin Skin Narrative: Patient has no evidence of rash, abscess or jaundice. Neuro oriented x3, CN's II-XII intact bilaterally, moves all extremities and no focal motor deficits Sensorium / Orientation: awake, alert, oriented to person, oriented to place and oriented to time Speech: speech normal Psych Mood & Affect: anxious Results Medical Records Data Attestation: I reviewed the patient's medical records Lab / Micro Data Attestation: I reviewed the patient's lab results. 07/15/24 16:08 07/15/24 16:08 Labs: Laboratory Results - last 24 hr 07/15/24 16:08: WBC 11.4 H, RBC 4.92, Hgb 14.1, Hct 43.4, MCV 88.2, MCH 28.7, MCHC 32.5, RDW Std Deviation 44.4 H, RDW Coeff of Madhu 13.6, Plt Count 386, MPV 9.3, Immature Gran % (Auto) 0.400, Neut % (Auto) 69.0, Lymph % (Auto) 14.7 L, Young % (Auto) 15.3 H, Eos % (Auto) 0.1, Baso % (Auto) 0.5, Absolute Neuts (auto) 7.9 H, Absolute Lymphs (auto) 1.68, Nucleated RBC % 0, Differential Comment SEE COMMENT, Diff Path Review May foll, Platelet Estimate ADEQUATE, RBC Morphology NORM C+C, Anisocytosis RARE, Sodium 135 L, Potassium 3.2 L, Chloride 99, Carbon Dioxide 28.0, Anion Gap 8, BUN 9, Creatinine 0.82, Estim Creat Clear Calc 74.21, Est GFR (MDRD) Af Amer 92, Est GFR (MDRD) Non-Af 76, BUN/Creatinine Ratio 10.9, Glucose 112 H, Calcium 8.6, Magnesium 1.8, Total Bilirubin 0.40, AST 16, ALT 15, Alkaline Phosphatase 101, Total Creatine Kinase 44, Troponin I High Sens 15, Total Protein 7.2, Albumin 3.1 L, Globulin 4.1, Albumin/Globulin Ratio 0.8 L, Lipase 22 07/15/24 17:58: Urine Color Yellow, Urine Clarity Clear, Urine pH 6.5, Ur Specific [place] 1.010, Urine Protein 30 H, Urine Glucose (UA) Normal, Urine Ketones Negative, Urine Occult Blood 25 H, Urine Nitrite Negative, Urine Bilirubin Negative, Urine Urobilinogen Normal, Ur Leukocyte Esterase Negative, Urine RBC 0-5 SEEN, Urine WBC 0-5 SEEN, Ur Squamous Epith Cells 0-5 SEEN, Urine Bacteria 1+, Hyaline Casts 0-5 SEEN, Urine Mucus 0 SEEN Micro: Microbiology 07/15/24 16:08 Mucosa - Nose SARS-CoV-2, Influenza & RSV (PCR) - Final Imaging Radiology Impression Chest X-Ray 07/15/24 16:50 IMPRESSION: 1. COPD/emphysematous changes/interstitial lung disease Electronically Signed: Javon Neumann MD at 18:00 EST Reading Location ID and State: [address] [place] [address] , Service support , Abdomen/Pelvis CT 07/15/24 18:10 IMPRESSION: 1. Moderate to severe atherosclerotic plaque and chronic mural thrombus and stenosis of the bilateral common iliac and internal iliac arteries 2. No aortic dissection or aneurysm or active hemorrhaging 3. Patchy hypodensity and heterogeneity is seen in the uterine fundus which was not seen on the prior study and could be related to degenerated fibroids or an nonspecified endometrial myometrial process not assessed by CT. Correlate with pelvic ultrasound or MRI of the pelvis and assessment and physical exam by gynecology to ensure no underlying malignancy is present. 4. A few scattered colonic diverticula are present without evidence of acute inflammation. No visualized colonic masses or wall thickening. No bowel obstruction is present. The appendix is visualized and appears normal. Electronically Signed: Javon Neumann MD at 21:03 EST Reading Location ID and State: [id number] [facility] , Service support , Chest CTA 07/15/24 18:10 IMPRESSION: 1. [place]-shaped groundglass edema with crowding of the bronchovascular structures is present in the medial basilar segment of the right lower likely representing developing volume overload or pneumonia see images 50 through 64/235 series 2. 2. Interval development of a small 6.3 mm peripheral arterial branch focal aneurysm in the medial retrocardiac region of the right lower lobe see images 46 through 50/235 series 2. No visualized arteriovenous malformation. This can be assessed by pulmonology or cardiothoracic surgery service consultation if clinically desired but is not felt to be significant. No demonstrated pulmonary embolism or arterial dissection. Electronically Signed: Javon Neumann MD at 20:17 EST , Assessment & Plan Assessment/Plan (1) Abnormal tissue in uterus: (2) Near syncope: PLAN: Plan 1. CT scan of the chest that was negative for PE but did reveal crescent shaped ground-glass edema with crowding of the bronchovascular structures present to the medial basilar segment of the Right lower lobe likely due to developing Pneumonia with corresponding Leukocytosis of 11.4 K and relatively low BNP of 120.6 pg/mL present on admission - Admit to PCU. Resume IV Rocephin and IV azithromycin began in the ER and await culture and sensitivity data. Check urinary antigens to Streptococcus pneumonia and Legionella. Give Tylenol as needed for [id number] (level 1-5/10) pain or fever. Give morphine IV as needed for severe (level 6-10/10) pain. 2. Acute Exacerbation of asthma/COPD with Acute Respiratory Insufficiency arising from #1 in the setting of ongoing tobacco and cannabis abuse - Continue IV solumedrol begun in the ER and wean as tolerated. Also continue as needed/scheduled nebulizers and inhalers. Tobacco and cannabis cessation were strongly encouraged with nicotine patch offered to control cravings. 3. Near syncopal event with Generalized Weakness, Fatigue and increasing back pain attributable to #1 & #2 in the setting of known OA; with Chronic Low Back Pain already on prn hydrocodone - Volume resuscitate and check echocardiogram in AM to evaluate LVEF. Patient was suspected to be severely hypoxic in the process of exerting herself as the underlying cause of her near syncopal event. 4. Incidentally noted CT evidence of patchy hypodensity and heterogeneity in the uterine fundus which was not seen on prior study could be related to a degenerated fibroids and/or nonspecified endometrial or myometrial process not assessed by CT with correlation recommended with pelvic ultrasound or MRI of the pelvis and recommendation for referral to gynecology to ensure no underlying malignancy is present adding to the medical complexity of #1 - #3 - Patient was ordered a transvaginal ultrasound to be done in the a.m. to confirm suspicions of uterine lesion noted on CT. 5. Hypokalemia of 3.2 mmol/L present on admission - Give supplemental KCl and then recheck level in a.m. to confirm replacement. 6. Suspected esophageal stenosis with patient having severe dysphagia feeling food getting stuck usp down her esophagus and forcing herself to vomit - Give mechanical soft diet to see if patient will be better able tolerate oral intake as gastroenterology is not available until Wednesday. Therefore, we will consult gastroenterology to see this patient for recommendations regarding EGD this admission. 7. Overweight; with BMI of 28.4 this admission with HELIO - Weight loss will be recommended. Check TSH. This complicates her case and may hamper recovery. 7. Essential hypertension - Maintain home regimen plus give prn IV Hydralazine for systolic blood pressure > 160 mmHg. 8. Hyperlipidemia - Check Lipid Profile this admission with patient currently not on pharmacologic therapy. 9. History of EtOH abuse; patient denies actively drinking at this time - Noted. We will watch closely in case of signs or symptoms of alcohol withdrawal. 10. History of PE - Noted with CTA of the chest this admission negative for PE. 11. History of pulmonary hypertension - Noted. 12. History of seizure - Noted with no evidence of recurrence. 13. History of TIA/CVA - Noted. 14. History of peanut allergy (anaphylaxis) - Noted. 15. History of tree nut allergy (anaphylaxis) - Noted. 16. MIKIE - Stable with hemoglobin of 14.1 g/dL and MCV of 88.2 fL present on admission. 17. History of thrombocytosis - Noted with platelet count of 386K this admission. 18. History of renal calculi - Noted with no evidence of recurrence on CT this admission. 19. History of pyelonephritis - Noted. 20. GERD; with history of esophagitis - Stable with patient currently not PPI. 21. History of axillary hidradenitis suppurativa - Noted. 22. History of eczema - Noted. 23. History of cholecystectomy - Noted. 24. History of tubal ligation - Noted for the sake of completeness. 25. Depression - Patient currently not on medication for this issue. 26. DVT prophylaxis - Lovenox 40 mg sq daily plus SCD's. Total time: Approximately (but not less than) 75 minutes. Charges/Coding Visit Charges Inpatient E&M: 17725 Init Hosp L3
[2024-07-15] MEDS: Ceftriaxone 1 GM/50 ML BAG IV (23:16)
[2024-07-15] MEDS: MethylPREDNISolone 125 MG/2 ML Vial IV (23:17)
[2024-07-15] MEDS: Potassium Chloride Oral Tablet 20 MEQ PO (23:17)
[2024-07-15] MEDS: Albuterol 2.5 MG/3 ML VIAL.NEB. INHALATION (23:33)
[2024-07-15] MEDS: Azithromycin 500 MG in Dextrose 5%-Water (250mL Bag) 250 ML 250 MG IV (23:54)
--- NOTE | 2024-07-15 23:57 | ED.RN ---
This RN called pharmacy regarding zithromax NS bag not scanning, Per pharmacy they are all out of D5 bags that go with this med and NS is okay.
[2024-07-16] VITALS (10 sets, daily range): BP systolic 114–150; BP diastolic 76–96; PULSE 77–96; RESP 16–24; TEMP 36.4–37.1; O2SAT 92–99; BMI 27.8
[2024-07-16 00:01] LABS: BNP,B-Type NATRIURETIC PEPTIDE 120.6 pg/mL (0-100)
--- NOTE | 2024-07-16 00:22 | ECHOD_ITS ---
Reason For Study: NEAR SYNCOPE Procedure This was a 2D Doppler, Color Flow transthoracic echocardiogram. Exam performed portable in patient room. Left Ventricle Normal LV size. Mild concentric left ventricular hypertrophy. Left ventricular systolic function is normal. The left ventricular ejection fraction is 55 %. Stage 1 diastolic dysfunction. No regional wall motion abnormalities noted. Right Ventricle Normal RV size. Normal systolic function. Atria Normal left atrium. Normal right atrium. Mitral Valve Normal mitral valve. Tricuspid Valve Normal tricuspid valve. Aortic Valve The aortic valve is not well visualized. Mild (1+) aortic valve insufficiency. Pulmonic Valve Normal pulmonic valve. Great Vessels Normal aortic root. The pulmonary artery is normal size. Normal inferior vena cava. Pericardium/Pleural No pericardial effusion. MMode/2D Measurements & Calculations LVIDd: 4.4 cm IVSd: 1.2 cm LVOT diam: 1.9 cm LVIDs: 2.9 cm LVPWd: 1.3 cm LVOT area: 2.7 cm2 RVDd: 2.8 cm FS: 34.9 % LAV(MOD-bp): 31.4 ml LVAd ap4: 25.8 cm2 SV(MOD-sp4): 43.2 ml LAV(MOD-bp) Indexed: 17.4 ml/m2 LVLd ap4: 7.3 cm SI(MOD-sp4): 24.0 ml/m2 LAV(MOD-sp2): 33.9 ml EDV(MOD-sp4): 78.7 ml LAV(MOD-sp4): 27.6 ml EDV(sp4-el): 77.1 ml LVAs ap4: 16.1 cm2 LVLs ap4: 6.4 cm ESV(MOD-sp4): 35.5 ml ESV(sp4-el): 34.4 ml EF(MOD-sp4): 54.9 % EF(sp4-el): 55.3 % SV(sp4-el): 42.7 ml LA A4 area: 13.1 cm2 LA dimension(2D): 4.3 cm RA A4 area: 10.8 cm2 Time Measurements MV dec time: 0.14 sec Doppler Measurements & Calculations MV E max enrique: 99.6 cm/sec Lat Peak E' Enrique: 8.2 cm/sec Med Peak E' Enrique: 7.0 cm/sec MV A max enrique: 130.0 cm/sec E/E' lat: 12.2 E/E' med: 14.2 MV E/A: 0.77 MV V2 max: 128.0 cm/sec Ao V2 max: 255.0 cm/sec MV max P.6 mmHg MV dec slope: 696.5 cm/sec2 Ao max P.1 mmHg MV V2 mean: 78.9 cm/sec Ao V2 mean: 179.4 cm/sec MV mean P.8 mmHg Ao mean P.7 mmHg MV V2 VTI: 35.0 cm Ao V2 VTI: 57.3 cm AV (velocity ratio): 0.58 MVA(VTI): 2.6 cm2 GERARDO(I,D): 1.6 cm2 GERARDO(V,D): 1.3 cm2 AI max enrique: 480.0 cm/sec LV V1 max: 123.3 cm/sec SV(LVOT): 91.1 ml AI max P.2 mmHg LV V1 max P.1 mmHg LV V1 mean P.8 mmHg AI dec slope: 272.3 cm/sec2 LV V1 mean: 90.1 cm/sec AI P1/2t: 516.3 msec LV V1 VTI: 33.3 cm PA V2 max: 99.6 cm/sec PA V2 mean: 74.6 cm/sec ECHO/Echo Complete Interpretation Summary Normal LV size. Left ventricular systolic function is normal. The left ventricular ejection fraction is 55 %. Mild concentric left ventricular hypertrophy. Stage 1 diastolic dysfunction. Ordering Physician: Albert Oliver Referring Physician: MD Blaise Steven Performed By: Lisa Price RCS
[2024-07-16] MEDS: 0.9% Normal Saline (1000mL) 1,000 ML 70 ML IV (01:04)
[2024-07-16] MEDS: 0.9% Saline Lock 10 ML Syringe IV (01:04)
[2024-07-16] MEDS: Potassium Chloride Oral Tablet 20 MEQ 60 MEQ PO (01:46)
[2024-07-16 07:21] LABS: Absolute Lymphocyte Count 0.63 X10^3/uL (0.83-4.51); Absolute Neutrophil Count 6.9 X10^3/uL (2.0-7.7); Basophil# 0.01 X10^3/uL; Basophil% 0.1 % (0-1); Hematocrit 44.5 % (37-47); Hemoglobin 13.9 g/dL (12.0-15.0); Lymphocyte # 0.63 X10^3/ul (0.83-4.51); Lymphocyte % 8.2 % (19-41); Mean Corp Hgb Conc 31.2 g/dL (32-36); Mean Corpuscular Volume 89.5 fL (81-99); Mean Platelet Vol. 9.5 fl (6.2-12.0); Monocyte% 1.3 % (0-10); NRBC Flagged by Analyzer 0 % (0-5); Neutrophil # 6.87 X10^3/uL (2.7-7.7); Platelet Count 394 K/mm3 (150-450); RBC Distribution Width CV 13.8 % (11.6-14.6); RBC Distribution Width SD 45.5 fl (35.1-43.9); Red Blood Count 4.97 M/mm3 (4.2-5.4); White Blood Count 7.6 K/mm3 (4.4-11.0)
[2024-07-16 07:48] LABS: ALB/GLOB Ratio 0.6 RATIO (0.9-2.4); AST(SGOT) 14 U/L (15-37); Alanine Aminotransfer ALT/SGPT 15 U/L (13-56); Albumin, Serum 2.8 g/dL (3.2-5.0); Alkaline Phosphatase 103 U/L (45-117); Anion Gap 6 (5-15); BUN 10 mg/dL (7-18); Calcium,Total 8.5 mg/dL (8.5-10.1); Chloride 104 mmol/L (98-107); Creatinine, Serum 0.77 mg/dL (0.55-1.02); EST Glomerular Filtration Rate 82 mL/min (>60); Est Glom Filt Rate - Afr Amer 99 mL/min (>60); Estimated Creatinine Clearance 78.32 ml/min; Globulin 4.4 g/dL (2.2-4.2); Glucose 171 mg/dL (74-106); Magnesium 2.2 mg/dL (1.6-2.6); Phosphorus 2.5 mg/dL (2.5-4.9); Potassium 4.2 mmol/L (3.5-5.1); Protein, Total 7.2 g/dL (6.4-8.2); Sodium Level 137 mmol/L (136-145); Thyroid Stim Hormone (TSH) 0.444 uIU/mL (0.358-3.740)
[2024-07-16] MEDS: guaiFENesin 1,200 MG Tablet 1200 MG PO (08:00)
[2024-07-16] MEDS: Pantoprazole Sodium 40 MG Tablet PO ×2 (08:00→08:01)
[2024-07-16] MEDS: Enoxaparin 40 MG/0.4 ML Syringe SC (08:02)
[2024-07-16] MEDS: Lactobacillis Acidophilus 1 CAP PO ×4 (08:02→21:19)
--- NOTE | 2024-07-16 08:04 | PN.HOSP_ITS ---
Reason for Visit Reason for Visit: Diagnoses Syncope and collapse (07/15/24) Unspecified abnormal finding in specimens from female genital organs (07/15/24) Objective Data Objective Data Vital Signs: Vital Signs Temp Pulse Resp BP Pulse Ox O2 Del Method O2 Flow Rate 98.7 F 79 16 150/76 H 95 Nasal Cannula 2 07/16/24 07:53 07/16/24 07:53 07/16/24 07:53 07/16/24 07:53 07/16/24 07:53 07/16/24 07:53 07/16/24 07:53 Oxygen Flow Rate (L/min) 2 Oxygen Delivery Method Nasal Cannula Weight: 162 lb 7.691 oz Body Mass Index (BMI) 27.8 Intake & Output: Intake and Output for Last 24 Hours 07/14/24 07/15/24 07/16/24 23:59 23:59 23:59 Intake Total 1050 / 1050 255 / 255 Balance 1050 / 1050 255 / 255 Lab / Micro Data 07/16/24 06:35 07/16/24 06:35 Labs: Laboratory Results - last 24 hr 07/15/24 16:08: WBC 11.4 H, RBC 4.92, Hgb 14.1, Hct 43.4, MCV 88.2, MCH 28.7, MCHC 32.5, RDW Std Deviation 44.4 H, RDW Coeff of Madhu 13.6, Plt Count 386, MPV 9.3, Immature Gran % (Auto) 0.400, Neut % (Auto) 69.0, Lymph % (Auto) 14.7 L, M danny % (Auto) 15.3 H, Eos % (Auto) 0.1, Baso % (Auto) 0.5, Absolute Neuts (auto) 7.9 H, Absolute Lymphs (auto) 1.68, Nucleated RBC % 0, Differential Comment SEE COMMENT, Diff Path Review May foll, Platelet Estimate ADEQUATE, RBC Morphology NORM C+C, Anisocytosis RARE, Sodium 135 L, Potassium 3.2 L, Chloride 99, Carbon Dioxide 28.0, Anion Gap 8, BUN 9, Creatinine 0.82, Estim Creat Clear Calc 74.21, Est GFR (MDRD) Af Amer 92, Est GFR (MDRD) Non-Af 76, BUN/Creatinine Ratio 10.9, Glucose 112 H, Calcium 8.6, Magnesium 1.8, Total Bilirubin 0.40, AST 16, ALT 15, Alkaline Phosphatase 101, Total Creatine Kinase 44, Troponin I High Sens 15, B- Natriuretic Peptide 120.6 H, Total Protein 7.2, Albumin 3.1 L, Globulin 4.1, A lbumin/Globulin Ratio 0.8 L, Lipase 22 07/15/24 17:58: Urine Color Yellow, Urine Clarity Clear, Urine pH 6.5, Ur Specific [place] 1.010, Urine Protein 30 H, Urine Glucose (UA) Normal, Urine Ketones Negative, Urine Occult Blood 25 H, Urine Nitrite Negative, Urine Bilirubin Negative, Urine Urobilinogen Normal, Ur Leukocyte Esterase Negative, Urine RBC 0-5 SEEN, Urine WBC 0-5 SEEN, Ur Squamous Epith Cells 0-5 SEEN, Urine Bacteria 1+, Hyaline Casts 0-5 SEEN, Urine Mucus 0 SEEN 07/16/24 06:35: WBC 7.6, RBC 4.97, Hgb 13.9, Hct 44.5, MCV 89.5, MCH 28.0, MCHC 31.2 L, RDW Std Deviation 45.5 H, RDW Coeff of Madhu 13.8, Plt Count 394, MPV 9.5, Immature Gran % (Auto) 0.400, Neut % (Auto) 90.0 H, Lymph % (Auto) 8.2 L, Hart % (Auto) 1.3, Eos % (Auto) 0.0, Baso % (Auto) 0.1, Absolute Neuts (auto) 6.9, A bsolute Lymphs (auto) 0.63 L, Nucleated RBC % 0, Sodium 137, Potassium 4.2, Chloride 104, Carbon Dioxide 27.0, Anion Gap 6, BUN 10, Creatinine 0.77, Estim Creat Clear Calc 78.32, Est GFR (MDRD) Af Amer 99, Est GFR (MDRD) Non-Af 82, BUN/Creatinine Ratio 13.0, Glucose 171 H, Calcium 8.5, Phosphorus 2.5, Magnesium 2.2, Total Bilirubin 0.30, AST 14 L, ALT 15, Alkaline Phosphatase 103, Total Protein 7.2, Albumin 2.8 L, Globulin 4.4 H, Albumin/Globulin Ratio 0.6 L, TSH 0.444 Micro: Microbiology 07/15/24 16:08 Mucosa - Nose SARS-CoV-2, Influenza & RSV (PCR) - Final Radiography Diagnostic Testing: Radiology Impression Chest X-Ray 07/15/24 16:50 IMPRESSION: 1. COPD/emphysematous changes/interstitial lung disease Electronically Signed: Javon Neumann MD at 18:00 EST Reading Location ID and State: [address] [place] [address] , Service support , Abdomen/Pelvis CT 07/15/24 18:10 IMPRESSION: 1. Moderate to severe atherosclerotic plaque and chronic mural thrombus and stenosis of the bilateral common iliac and internal iliac arteries 2. No aortic dissection or aneurysm or active hemorrhaging 3. Patchy hypodensity and heterogeneity is seen in the uterine fundus which was not seen on the prior study and could be related to degenerated fibroids or an nonspecified endometrial myometrial process not assessed by CT. Correlate with pelvic ultrasound or MRI of the pelvis and assessment and physical exam by gynecology to ensure no underlying malignancy is present. 4. A few scattered colonic diverticula are present without evidence of acute inflammation. No visualized colonic masses or wall thickening. No bowel obstruction is present. The appendix is visualized and appears normal. Electronically Signed: Javon Neumann MD at 21:03 EST Reading Location ID and State: [id number] [facility] , Service support , Chest CTA 07/15/24 18:10 IMPRESSION: 1. [place]-shaped groundglass edema with crowding of the bronchovascular structures is present in the medial basilar segment of the right lower likely representing developing volume overload or pneumonia see images 50 through 64/235 series 2. 2. Interval development of a small 6.3 mm peripheral arterial branch focal aneurysm in the medial retrocardiac region of the right lower lobe see images 46 through 50/235 series 2. No visualized arteriovenous malformation. This can be assessed by pulmonology or cardiothoracic surgery service consultation if clinically desired but is not felt to be significant. No demonstrated pulmonary embolism or arterial dissection. Electronically Signed: Javon Neumann MD at 20:17 EST , Rhythm Strip Rhythm Strip: Sinus Rhythm Ectopy: None Assessment & Plan Assessment/Plan (1) Abnormal tissue in uterus: (2) Near syncope: PLAN: Plan 59 old female was admitted with generalized malaise, nausea, dizziness, feeling that she is going to pass out but did not pass out, cough, SOB, weakness and back pain for 1 day. She has increased back pain for past 1 week, right more than left. 1. Dyspnea from possible evolving pneumonia: Patient is being admitted in PCU. CTA chest showed crescent shaped groundglass edema with crowding of bronchovascular structures in the medial basilar segment of right lower lobe concerning for evolving pneumonia. Patient has mild leukocytosis. Started on IV ceftriaxone and azithromycin. Triple PCR for SARS-CoV-2, flu and RSV are negative 2. Acute Exacerbation of asthma/COPD with history of chronic cigarette smoker and cannabis abuse - Continue IV solumedrol begun in the ER and wean as tolerated. Also continue as needed/scheduled nebulizers and inhalers. Tobacco and cannabis cessation were strongly encouraged with nicotine patch offered to control cravings. Nicotine patch ordered. 3. Near syncopal event with Generalized Weakness, Fatigue and increasing back pain with chronic OA: 2D echo is ordered. Dizziness dizziness 4. Incidental abnormal CT finding of degenerative fibroid or nonspecific endometrial or myometrial process: I think this pelvic ultrasound can be done as an outpatient this is not the presenting symptom that patient came with but incidental finding. 5. Hypokalemia of 3.2 mmol/L present on admission - Give supplemental KCl and then recheck level in a.m. to confirm replacement. 6. Suspected esophageal stenosis with patient having severe dysphagia feeling food getting stuck custodial down her esophagus and forcing herself to vomit - Give mechanical soft diet to see if patient will be better able tolerate oral intake as gastroenterology is not available until Wednesday. Therefore, we will consult gastroenterology to see this patient for recommendations regarding EGD this admission. 7. Overweight; with BMI of 28.4 this admission with HELIO - Weight loss will be recommended. Check TSH. This complicates her case and may hamper recovery. 7. Essential hypertension - Maintain home regimen plus give prn IV Hydralazine for systolic blood pressure > 160 mmHg. 8. Hyperlipidemia - Check Lipid Profile this admission with patient currently not on pharmacologic therapy. 9. History of EtOH abuse; patient denies actively drinking at this time - Noted. We will watch closely in case of signs or symptoms of alcohol withdrawal. 10. Chronic seizure, pulmonary hypertension, history of PE, GERD/reflux esophagitis and depression: No active issues. Patient not on any medication for this disease. DVT prophylaxis - Lovenox 40 mg sq daily plus SCD's. Charges/Coding Visit Charges Inpatient E&M: 39830 Subs Hosp L2
[2024-07-16] MEDS: Albuterol 2.5 MG/3 ML VIAL.NEB. INHALATION ×4 (08:42→23:46)
--- NOTE | 2024-07-16 11:52 | EX.PCM.CON.G ---
HPI Consult Data Date of Consult: 07/16/24 HPI Narrative Reason for Consultation: Dysphagia HPI Narrative: SAVANNAH IRVIN, is a 59-year-old woman with history of COPD, tobacco use, pulmonary hypertension, hypertension, hyperlipidemia and kidney stones presenting with generalized malaise, dizziness, nausea, cough, shortness of breath and back pain. Patient states that she has not been feeling good all day is been more fatigued. She tried to go downstairs for the got dizzy feeling she was going to pass out. She did she has had some increased back pain for the past week with the right worse than the left. She states is her kidneys at her. She also for the past 1 is an intermittent sharp pains in her left lower quadrant. She denies any urinary symptoms such as dysuria or hematuria. She denies any change in her bowel movements but notes it has been a couple days since she had a bowel movement. She has been passing gas. She denies any chest pain or tightness but does feel more short of breath and feels like she is been wheezing more. She is been coughing and nothing comes up but she feels like there is mucus that needs to come out. She denies any URI symptoms. She notes her daughter was sick over [place] and she was around her. She does report a mild headache. No fevers reported. I was asked to see the patient due to Suspected esophageal stenosis with patient having severe dysphagia feeling food getting stuck residential down her esophagus and forcing herself to vomit. She says that this has been going on for quite some time. She has most problems with solids and not liquids. [facility] Medical History Hypertension Gastroesophageal reflux disease Leukocytosis Acute pyelonephritis Substance abuse Alcohol abuse Chronic pain Kidney stones Smoker Sleep apnea Pulmonary embolism TIA (transient ischemic attack) Stroke/cerebrovascular accident COPD (chronic obstructive pulmonary disease) Asthma Home Medications ?Medication ?Instructions ?Recorded ?Last Taken ?Type albuterol sulfate 2.5 mg/3 mL 2.5 mg (3 mL) inhalation Q4H PRN 10/20/17 02/08/23 Rx (0.083 %) solution for nebulization #25 vials albuterol sulfate 90 mcg/actuation 1 - 2 puff inhalation PRN PRN Sob 05/18/18 02/08/23 History aerosol inhaler (Ventolin HFA) &/Or Wheezing epinephrine 0.3 mg/0.3 mL 0.3 mg (0.3 mL) IM X1 ##1 01/21/19 Unknown Rx injection, auto-injector Allergy/AdvReac Type Severity Reaction Status Date / Time peanut Allergy Anaphylaxis Verified 07/15/24 15:02 tree nut (Tree Nut) Allergy Anaphylaxis Verified 07/15/24 15:02 Family History Mother COPD (chronic obstructive pulmonary disease) Hypertension Father Epilepsy Surgical History History of bilateral ligation of fallopian tubes History of cholecystectomy Social History household members: none Smoking Status: Current every day smoker tobacco type: cigarettes alcohol intake: former substance use type: marijuana ROS ROS Narrative Review of Systems: Constitutional: Patient admits to generalized weakness and fatigue but she denies fever or chills. Eyes: Patient denies changes in vision or discharge from eyes. ENT: Patient denies runny nose, sore throat or ear pain. Resp: Patient admits to dyspnea on exertion that progressed to shortness of breath at rest with wheezing and nonproductive cough as per HPI. CV: Patient denies chest pain, palpitations or heart racing. GI: Patient admits to mild constipation but she denies abdominal pain, nausea or vomiting. : Patient denies dysuria or hematuria. MSK: Patient admits to back pain that is worse on the Right > Left with myalgias but she denies arthralgias. Skin: Patient denies rash, abscess or jaundice. Psych: Patient denies symptoms of uncontrolled depression or anxiety. Neuro: Patient admits to generalized weakness but she denies headache, paresthesias or focal neurologic weakness. Allergy: Patient denies lip swelling, tongue swelling or urticaria. Hematology: Patient denies easy bleeding or easy bruisability. Endocrinology: Patient denies polyuria, polydipsia or polyphagia. 14 point review of systems otherwise negative save for positives noted above in HPI. Physical Exam Const alert, oriented x3 and average body habitus Constitutional Narrative: Mild distress noted with chronically ill appearance. General Appearance: cooperative HEENT normocephalic, head/scalp atraumatic and hearing grossly normal bilaterally HEENT Narrative: Mucous membranes dry. Eyes PERRL and EOMs intact bilaterally Neck no lymphadenopathy and supple Resp Resp Narrative: Mildly increased work of breathing with coarse breath sounds throughout and expiratory wheezing. Auscultation: wheezes Cardio regular rate and regular rhythm GI normal to inspection, nondistended, normoactive bowel sounds, soft to palpation, non-tender and non-distended Extremity normal to inspection, full ROM and no clubbing, cyanosis or edema Skin Skin Narrative: Patient has no evidence of rash, abscess or jaundice. Neuro oriented x3, CN's II-XII intact bilaterally, moves all extremities and no focal motor deficits Sensorium / Orientation: awake, alert, oriented to person, oriented to place and oriented to time Speech: speech normal Psych Mood & Affect: anxious Lab / Micro Data 07/17/24 06:30 07/17/24 06:30 Labs: Laboratory Results - last 24 hr 07/17/24 06:30: WBC 9.4, RBC 4.63, Hgb 13.4, Hct 41.1, MCV 88.8, MCH 28.9, MCHC 32.6, RDW Std Deviation 44.2 H, RDW Coeff of Madhu 13.6, Plt Count 429, MPV 9.5, Immature Gran % (Auto) 0.400, Neut % (Auto) 90.9 H, Lymph % (Auto) 5.3 L, Harlan % (Auto) 3.3, Eos % (Auto) 0.0, Baso % (Auto) 0.1, Absolute Neuts (auto) 8.6 H, Absolute Lymphs (auto) 0.50 L, Nucleated RBC % 0, Sodium 138, Potassium 3.6, Chloride 105, Carbon Dioxide 26.0, Anion Gap 7, BUN 9, Creatinine 0.82, Estim Creat Clear Calc 75.44, Est GFR (MDRD) Af Amer 93, Est GFR (MDRD) Non-Af 77, BUN/Creatinine Ratio 11.0, Glucose 238 H, Calcium 9.2, Phosphorus 2.3 L, Magnesium 2.0 Micro: Microbiology 07/16/24 10:57 Urine, Clean Catch Streptococcus pneumoniae Antigen (M - Final 07/16/24 10:57 Urine, Clean Catch Legionella Antigen - Final Rhythm Strip Rhythm Strip: Sinus Rhythm Ectopy: None Assessment & Plan Assessment/Plan (1) Dysphagia: PLAN: The differential diagnosis for esophageal dysphagia in a patient with COPD could be Connie esophagitis, pill induced esophagitis, or esophagitis, esophageal stricture, eosinophilic esophagitis. We will perform an upper endoscopy to evaluate upper GI tract and possibly perform dilation and biopsies of the upper GI tract. She was explained alternatives, risk, benefits include not withstanding bleeding, infection, sepsis, perforation, need for charge and . She will have an ASA of 3. Charges/Coding Visit Charges Inpatient E&M: 23393 Init Hosp L3
[2024-07-16] MEDS: MethylPREDNISolone 125 MG/2 ML Vial 60 MG IV ×2 (15:00→21:21)
[2024-07-16] MEDS: Ceftriaxone 1 GM/50 ML BAG IV (21:20)
[2024-07-16] MEDS: guaiFENesin/D-Methorphan TAB.SR.12H 2 TABLET PO (21:20)
[2024-07-16] MEDS: Azithromycin 500 MG in 0.9% Normal Saline (250mL Bag) 250 ML 250 MG IV (22:58)
[2024-07-17] VITALS (18 sets, daily range): BP systolic 115–174; BP diastolic 65–94; PULSE 79–99; RESP 16–18; TEMP 36.4–36.8; O2SAT 86–96; BMI 29.4
--- NOTE | 2024-07-17 | IMM_PTH ---
PATIENT: SAVANNAH IRVIN LOC: [facility] U#:[id number] AGE/SX: 59/F ROOM: [facility] RE07/15/[address]: Dr. Jama Bustamante MD : [id number] BED: 1 DIS: 07/17/2024 SPEC #: [id number] RECD: 07/20/24 10:23 STATUS: JOHN REQ #: [id number] BIANCA: 07/17/24 00:[address]: Jorge L Asencio DEPT: IMMUNOHISTOCHEMISTRY RECD BY: Nomi Paez ENTERED: 07/20/24 10:24 SP TYPE: IMMUNO OTHR DR: DO Dr. Steven Hair MD Dr. Prakash Chand, MD Tissues: Esophagus, NOS Procedures: P53 (initial) KI-67 (add) PHYSICIAN & INSTITUTION [place] [id number] SPECIMEN INFORMATION: Tissue Source: Distal esophagus biopsy Clinical Info: Dysphagia Specimen Number: [id number] CPT code: 72732,55683 METHODOLOGY: Deparaffinized sections of prefer/formalin-fixed tissue or PAP/DQ stained slides are incubated with monoclonal/polyclonal antibodies/oligonucleotide probes. Localization is made via biotin free immunoperoxidase method. Appropriate controls are performed and reacted as expected. Results on target cell population are indicated in the following table: RESULTS: ANTIBODY / CLONE RESULT P53 (DO-7) positive, focal and weak (wild type pattern) Ki-67 (30-9) positive, low to moderate These tests were developed and their performance characteristics determined by [facility]. They may not have been cleared or approved by the U.[place]. Food and Drug Administration. The FDA has determined that such clearance or approval is not necessary. The above immunohistochemical/dualISH markers are ordered and reviewed by the Pathologist. INTERPRETATION: Distal esophagus, biopsy: Negative for dysplasia. 07/21/2024
[2024-07-17] MEDS: Albuterol 2.5 MG/3 ML VIAL.NEB. INHALATION ×3 (03:57→16:16)
[2024-07-17] MEDS: MethylPREDNISolone 125 MG/2 ML Vial 60 MG IV ×2 (04:52→14:09)
[2024-07-17 06:51] LABS: Absolute Neutrophil Count 8.6 X10^3/uL (2.0-7.7); Basophil# 0.01 X10^3/uL; Basophil% 0.1 % (0-1); Hematocrit 41.1 % (37-47); Hemoglobin 13.4 g/dL (12.0-15.0); Lymphocyte % 5.3 % (19-41); Mean Corp Hgb Conc 32.6 g/dL (32-36); Mean Corpuscular Hgb 28.9 pg (27.0-32.0); Mean Corpuscular Volume 88.8 fL (81-99); Mean Platelet Vol. 9.5 fl (6.2-12.0); Monocyte# 0.31 X10^3/uL; Monocyte% 3.3 % (0-10); NRBC Flagged by Analyzer 0 % (0-5); Neutrophil # 8.58 X10^3/uL (2.7-7.7); Neutrophil % 90.9 % (47-70); POSITIVE DIFFERENTIAL YES; Platelet Count 429 K/mm3 (150-450); RBC Distribution Width CV 13.6 % (11.6-14.6); RBC Distribution Width SD 44.2 fl (35.1-43.9); Red Blood Count 4.63 M/mm3 (4.2-5.4); White Blood Count 9.4 K/mm3 (4.4-11.0)
[2024-07-17 07:22] LABS: Anion Gap 7 (5-15); BUN 9 mg/dL (7-18); Calcium,Total 9.2 mg/dL (8.5-10.1); Chloride 105 mmol/L (98-107); Creatinine, Serum 0.82 mg/dL (0.55-1.02); EST Glomerular Filtration Rate 77 mL/min (>60); Est Glom Filt Rate - Afr Amer 93 mL/min (>60); Estimated Creatinine Clearance 75.44 ml/min; Glucose 238 mg/dL (74-106); Phosphorus 2.3 mg/dL (2.5-4.9); Potassium 3.6 mmol/L (3.5-5.1); Sodium Level 138 mmol/L (136-145)
--- NOTE | 2024-07-17 11:11 | PRE.ANES_ITS ---
ASA Classification* ASA Classification ASA Classification: 3 Assessment & Plan Anesthesia* Anesthesia Assessment Anesthesia Assessment: Discussed sedation and/or anesthesia options, risks, benefits, and alternatives with patient/parents/legal guardian/POA. Questions invited. The patient/parents/legal guardian/POA seems to understand and agrees to proceed with anesthesia plan. Reviewed the physical assessment, medical history, allergy history and patient home medications list prior to surgery/procedure/anesthetic and documented any changes. Performed airway and anesthesia risk assessments. Anesthesia Type Anesthesia Type: MAC History Source History Obtained from:: Patient and Chart Anesthesia Focused Assessment* Temperature: 97.9 F Pulse Rate: 99 Blood Pressure: 166/94 Respiratory Rate: 18 Pulse Ox: 93 Oxygen Delivery Method: Nasal Cannula Oxygen Flow Rate (L/min): 2 Airway Assessment Mouth opens: >3 cm Mallampati Score: II Teeth Condition: Chipped/Broken (Some chipped teeth.) and Missing (Some missing teeth. Rest are tight.) Neck Range of motion (ROM): Limited ROM (Somewhat decreased extension) Focused Labs Anesthesia Preop lab: CBC WBC 9.4 K/mm3 (4.4-11.0) 07/17/24 06:30 RBC 4.63 M/mm3 (4.2-5.4) 07/17/24 06:30 Hgb 13.4 g/dL (12.0-15.0) 07/17/24 06:30 Hct 41.1 % (37-47) 07/17/24 06:30 Plt Count 429 K/mm3 (150-450) 07/17/24 06:30 CHEMISTRY Potassium 3.6 mmol/L (3.5-5.1) 07/17/24 06:30 Sodium 138 mmol/L (136-145) 07/17/24 06:30 Magnesium 2.0 mg/dL (1.6-2.6) 07/17/24 06:30 Phosphorus 2.3 mg/dL (2.5-4.9) L 07/17/24 06:30 BUN 9 mg/dL (7-18) 07/17/24 06:30 Creatinine 0.82 mg/dL (0.55-1.02) 07/17/24 06:30 Glucose 238 mg/dL (74-106) H 07/17/24 06:30 POC Glucose 117 mg/dL (70-110) H 08/12/16 17:47 TSH 0.444 uIU/mL (0.358-3.740) 07/16/24 06:35 COAG PT 13.2 SECONDS (11.7-14.9) 06/03/19 19:35 Urine Test Negative Negative 12/03/19 16:38 Pre-Assessment Diagnosis/Proposed Procedure Planned Operative Procedure(s): Esophagogastroduodenoscopy. 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 When Was Last Pacemaker Check QUESTION #4 FULL TEXT: You/Your Family Experience fever (hyperthermia) with Anesthesia Last Oral Intake Last Oral intake: Last Oral Intake NPO since Meds taken in AM with sips of water? 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 Female HX of Motion Sickness HX of N/V After Surgery Non-Smoker Duration of Surgery greater than 60 minutes Number of Risk Factors PONV Score Height & Weight Height & Weight: Anesthesia: Height & Weight Height 5 ft 4 in 07/16/24 09:59 Weight: 77.7 kg 07/17/24 05:37 Body Mass Index (BMI) 29.4 07/17/24 05:37 Respiratory Assessment Respiratory Assessment - incising machine operator: Respiratory Tract Infection Hx - incising machine operator Hx Respiratory Tract Infection Any additional information?: Yes Hx Respiratory Tract Infection: Yes (Patient has chronic cough.) STOP Sleep Apnea STOP Sleep Apnea - incising machine operator: STOP Sleep Apnea - incising machine operator Hx Hypertension Yes 07/16/24 11:45 Hx Sleep Apnea No 07/16/24 00:25 CPAP No 06/05/23 00:39 BIPAP No 06/05/23 00:39 Do you snore loudly (louder No 07/16/24 00:25 than talking or can be heard Do you often feel tired/ No 07/16/24 00:25 fatigued/ sleepy during daytime? Has anyone observed you stop No 07/16/24 00:25 breathing during sleep? STOP Results Negative 07/16/24 00:25 QUESTION #5 FULL TEXT : Do you snore loudly (louder than talking or can be heard through closed doors)? 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 Specify any problems sepsis 07/16/24 00:25 Hx of Preganancy in last 3 No 07/16/24 00:25 Months Nurse Filling Out Transfusion MBAUTZ 07/16/24 00:25 & Questions: Date: 07/16/24 07/16/24 00:25 Time: 00:43 07/16/24 00:25 Patient unable to answer at this time (ie. confused, unrespo /Reproduction History /Reproductive History - incising machine operator: /Reproductive Hx- incising machine operator Hx Now Gestational Age (in weeks): EDC: Hx Hx Para Hx Section SAB Active Medications Active Medications: Current Medications Generic Name Dose Route Start Last Admin Trade Name Freq PRN Reason Stop Dose Admin Acetaminophen 650 mg 07/16/24 00:22 Acetaminophen 325 Mg Tablet PO Q6H PRN PRN Pain 1-5/10 or Fever Albuterol Sulfate 2.5 mg 07/16/24 21:15 07/17/24 07:24 Albuterol 2.5 Mg/3 Ml Vial.Neb. INHALATION 2.5 mg Q4H.RT JEANIE Administration Enoxaparin Sodium 40 mg 07/16/24 10:00 07/17/24 09:24 Enoxaparin 40 Mg/0.4 Ml Syringe SC Not Given DAILY JEANIE Guaifenesin 2 tablet 07/16/24 22:00 07/17/24 09:24 Guaifenesin/D-Methorphan Tab.Sr.12h PO Not Given BID JEANIE Ceftriaxone Sodium 1 gm in 50 mls @ 100 mls/hr 07/16/24 22:00 07/16/24 21:50 Rocephin IV Infused Q24H JEANIE Infusion Azithromycin 500 mg/ Sodium 255 mls @ 250 mls/hr 07/16/24 22:00 07/17/24 00:00 Chloride IV Infused Q24H JEANIE Infusion Sodium Chloride 100 mls @ 15 mls/hr 07/16/24 00:39 IV .Q6H40M PRN Saline Flush Sodium Chloride 100 mls @ 15 mls/hr 07/16/24 00:39 IV .Q6H40M PRN Additional IVPB Infusion Methylprednisolone 60 mg 07/16/24 14:00 07/17/24 04:52 Methylprednisolone 125 Mg/2 Ml Vial IV 60 mg Q8 JEANIE Administration Morphine Sulfate 2 mg 07/16/24 00:22 Morphine 2 Mg/Ml Syringe IV Q4H PRN PRN Pain Score 6-10 Nicotine 14 mg 07/16/24 10:00 07/17/24 10:17 Nicotine 14 Mg Patch TD 14 mg DAILY JEANIE Administration Pantoprazole Sodium 40 mg 07/16/24 10:00 07/16/24 08:01 Pantoprazole Sodium 40 Mg Tablet PO 40 mg DAILY JEANIE Administration Prochlorperazine Edisylate 5 mg 07/16/24 08:26 Prochlorperazine 10 Mg/2 Ml Vial IV Q4H PRN PRN NAUSEA/VOMITING Sodium Chloride 10 - 40 ml 07/16/24 00:39 07/16/24 01:04 0.9% Saline Lock 10 Ml Syringe IV 10 ml UD PRN Administration SALINE FLUSH PFSH Medical History Hypertension Gastroesophageal reflux disease Leukocytosis Acute pyelonephritis Substance abuse Alcohol abuse Chronic pain Kidney stones Smoker Sleep apnea Pulmonary embolism TIA (transient ischemic attack) Stroke/cerebrovascular accident COPD (chronic obstructive pulmonary disease) Asthma Home Medications ?Medication ?Instructions ?Recorded ?Last Taken ?Type albuterol sulfate 2.5 mg/3 mL 2.5 mg (3 mL) inhalation Q4H PRN 10/20/17 02/08/23 Rx (0.083 %) solution for nebulization #25 vials albuterol sulfate 90 mcg/actuation 1 - 2 puff inhalation PRN PRN Sob 05/18/18 02/08/23 History aerosol inhaler (Ventolin HFA) &/Or Wheezing epinephrine 0.3 mg/0.3 mL 0.3 mg (0.3 mL) IM X1 ##1 01/21/19 Unknown Rx injection, auto-injector Allergy/AdvReac Type Severity Reaction Status Date / Time peanut Allergy Anaphylaxis Verified 07/15/24 15:02 tree nut (Tree Nut) Allergy Anaphylaxis Verified 07/15/24 15:02 Family History Mother COPD (chronic obstructive pulmonary disease) Hypertension Father Epilepsy Surgical History History of bilateral ligation of fallopian tubes History of cholecystectomy Social History household members: none Smoking Status: Current every day smoker tobacco type: cigarettes alcohol intake: former substance use type: marijuana Review of Systems (Anesthesia) ROS Narrative System reviewed and no additional complaints, except as documented.
[2024-07-17] MEDS: Ipratropium/Albuterol Sulfate 3 ML AMPUL.NEB INHALATION (11:31)
--- NOTE | 2024-07-17 12:00 | PN.GI_ITS ---
Subjective Subjective The patient still having esophageal dysphagia. She will undergo endoscopy today. Objective Data Objective Data Vital Signs: Vital Signs Temp Pulse Resp BP Pulse Ox O2 Del Method O2 Flow Rate 97.9 F 93 18 166/94 H 93 Nasal Cannula 2 07/17/24 11:20 07/17/24 11:33 07/17/24 11:33 07/17/24 11:20 07/17/24 11:20 07/17/24 11:20 07/17/24 11:20 Oxygen Flow Rate (L/min) 2 Oxygen Delivery Method Nasal Cannula Weight: 171 lb 4.787 oz Body Mass Index (BMI) 29.4 Intake & Output: Intake and Output for Last 24 Hours 07/15/24 07/16/24 07/17/24 23:59 23:59 23:59 Intake Total 1050 / 1050 2955 / 3210 255 / 255 Output Total 1000 / 1000 Balance 1050 / 1050 1955 / 2210 255 / 255 Lab / Micro Data 07/17/24 06:30 07/17/24 06:30 Labs: Laboratory Results - last 24 hr 07/17/24 06:30: WBC 9.4, RBC 4.63, Hgb 13.4, Hct 41.1, MCV 88.8, MCH 28.9, MCHC 32.6, RDW Std Deviation 44.2 H, RDW Coeff of Madhu 13.6, Plt Count 429, MPV 9.5, Immature Gran % (Auto) 0.400, Neut % (Auto) 90.9 H, Lymph % (Auto) 5.3 L, [place] % (Auto) 3.3, Eos % (Auto) 0.0, Baso % (Auto) 0.1, Absolute Neuts (auto) 8.6 H, A bsolute Lymphs (auto) 0.50 L, Nucleated RBC % 0, Sodium 138, Potassium 3.6, Chloride 105, Carbon Dioxide 26.0, Anion Gap 7, BUN 9, Creatinine 0.82, Estim Creat Clear Calc 75.44, Est GFR (MDRD) Af Amer 93, Est GFR (MDRD) Non-Af 77, BUN/Creatinine Ratio 11.0, Glucose 238 H, Calcium 9.2, Phosphorus 2.3 L, Magnesium 2.0 Micro: Microbiology 07/16/24 10:57 Urine, Clean Catch Streptococcus pneumoniae Antigen (M - Final 07/16/24 10:57 Urine, Clean Catch Legionella Antigen - Final 07/15/24 16:08 Mucosa - Nose SARS-CoV-2, Influenza & RSV (PCR) - Final Rhythm Strip Rhythm Strip: Sinus Rhythm Ectopy: None Physical Exam Const alert, oriented x3 and average body habitus Constitutional Narrative: Mild distress noted with chronically ill appearance. General Appearance: cooperative HEENT normocephalic, head/scalp atraumatic and hearing grossly normal bilaterally HEENT Narrative: Mucous membranes dry. Eyes PERRL and EOMs intact bilaterally Neck no lymphadenopathy and supple Resp Resp Narrative: Mildly increased work of breathing with coarse breath sounds throughout and expiratory wheezing. Auscultation: wheezes Cardio regular rate and regular rhythm GI normal to inspection, nondistended, normoactive bowel sounds, soft to palpation, non-tender and non-distended Extremity normal to inspection, full ROM and no clubbing, cyanosis or edema Skin Skin Narrative: Patient has no evidence of rash, abscess or jaundice. Neuro oriented x3, CN's II-XII intact bilaterally, moves all extremities and no focal motor deficits Sensorium / Orientation: awake, alert, oriented to person, oriented to place and oriented to time Speech: speech normal Psych Mood & Affect: anxious Assessment & Plan Assessment/Plan (1) Dysphagia: PLAN: The differential diagnosis for esophageal dysphagia in a patient with COPD could be Connie esophagitis, pill induced esophagitis, or esophagitis, esophageal stricture, eosinophilic esophagitis. We will perform an upper endoscopy to evaluate upper GI tract and possibly perform dilation and biopsies of the upper GI tract. She was explained alternatives, risk, benefits include not withstanding bleeding, infection, sepsis, perforation, need for charge and . She will have an ASA of 3. Charges/Coding Visit Charges Inpatient E&M: 41244 Subs Hosp L3
--- NOTE | 2024-07-17 12:00 | EGD_PTH ---
PATIENT: SAVANNAH IRVIN LOC: [facility] U#:[id number] AGE/SX: 59/F ROOM: [facility] RE07/15/[address]: Dr. Jama Bustamante MD : 1965 BED: 1 DIS: 07/17/2024 SPEC #: [id number] RECD: 07/17/24 13:07 STATUS: JOHN REQ #: [id number] BIANCA: 07/17/24 12:[address]: Jorge L Asencio DEPT: SURGICAL PATHOLOGY RECD BY: Joanna Chandler ENTERED: 07/17/24 13:58 SP TYPE: EGD BIOPSY OT DR: DO Dr. Steven Hair MD Dr. Prakash Chand, MD Tissues: Esophagus, NOS Procedures: Special Stain Group I Surgery Specimen Level IV Alcian Blue/PAS (control) HEADER OPERATION: EGD with dilation, biopsy PRE-OP DIAGNOSIS: Dysphagia TISSUE SUBMITTED: Distal esophagus biopsy MICROSCOPIC DIAGNOSIS Distal esophagus, biopsy: Fragments of gastric mucosa with ulceration, acute and chronic inflammation. Focal intestinal metaplasia (goblet cell metaplasia), consistent with Paul's esophagus. Negative for dysplasia. See comment. 07/20/2024 COMMENT Alcian blue/PAS stain with matched control is used in the evaluation of the specimen. Immunohistochemistry (RF25-4) for P53 and Ki-67 will be performed and results will be reported separately. MICROSCOPIC DESCRIPTION Slides are reviewed. GROSS DESCRIPTION Received in fixative is one container labeled with the patient's name and designated Distal esophagus biopsy. The specimen consists of multiple irregular fragments of light hampton soft tissue that in aggregate measure 2.0 x 0.9 x 0.2 cm. The specimen is totally submitted in one cassette. 07/18/2024 TC:2 CPT:05287,24868
--- NOTE | 2024-07-17 12:10 | PCM.DC ---
Discharge Instructions Diet Discharge Diet: 2000 mg Sodium Diet DC O2, CPAP, BIPAP needs Home O2 Discharge instructions: Yes Type of respiratory needs?: Oxygen Oxygen frequency: Continuous Continuous oxygen liters per minute: 2 l/M Dressing / Incision Discharge Activity: Return to Normal Activity Weight Bearing Status: Weight bearing as tolerated Dressing / Incision Call your doctor if you observe: Fever of 101 or Higher, Coldness, Increased Pain, Numbness or Tingling, Change in Color, Inability to urinate, Inability to have a bowel movement, Shortness of breath, Dizziness, Fainting spells, Swelling in the ankles, Chest pain, Prolonged hiccupping, Increased palpitations (irregular heartbeat) and Calf discomfort Follow Up Care When: IN 2 WEEKS Test Results: Test results from this visit will be discussed in further detail at your follow-up appointment, if applicable. Discharge Plan Admission Admit Date/Time: 07/15/24 23:46 Primary Reason for Your Visit: COPD exacerbation. Dysphagia Attending Provider: Jama Bustamante Primary Care Provider: Steven Welsh Consulting Providers: Albert Oliver Instructions Additional Instructions / Restrictions: Follow-up with Benjamin or outside pulmonary office 2 weeks Patient will also need transvaginal ultrasound as an outpatient for abnormal CT finding regarding uterus possible fibroid or myometrial or endometrial abnormality Discharge Orders/Prescriptions Prescriptions: New prednisone 20 mg tablet 40 mg PO DAILY 5 Days Qty: 10 0RF dextromethorphan-guaifenesin [Mucinex DM] 60-1,200 mg tablet extended release 12 hr 1 tab PO Q12H 7 Days Qty: 14 0RF nicotine 14 mg/24 hr Patch 24 Hour 14 mg transdermal DAILY 30 Days Qty: 30 0RF pantoprazole 40 mg Tablet,Delayed Release (Dr/Ec) 40 mg PO DAILY 30 Days Qty: 30 0RF Continued albuterol sulfate 2.5 MG/3 ML solution for nebulization 2.5 mg INHALATION Q4H PRN Qty: 25 0RF Rx Instructions: Use q4 hours and PRN for wheezing albuterol sulfate [Ventolin HFA] 18 GM HFA aerosol inhaler 1 - 2 puff inhalation PRN PRN (Reason: Sob &/Or Wheezing) Patient Comments: inhale 2 puffs by mouth every 4 hours as directed if needed for wheezing or shortness of breath epinephrine 0.3 MG syringe 0.3 mg IM X1 Qty: 1 1RF Referrals / Follow Up: Luis Fernando Salazar DO [Med Staff - Active Staff] - Within 2 Weeks Steven Welsh MD [Primary Care Provider] - Within 2 Weeks Jorge L Asencio DO [Med Staff - Active Staff] - Within 1 Month (Follow-up after EGD) Brisa Gutierrez MD [Med Staff - Active Staff] - Within 1 Month Disposition Disposition (needs filled in before D/C Order can be placed): Home, Self Care
--- NOTE | 2024-07-17 12:17 | PCM.DC.SUM ---
Providers Date of Admission: 07/15/24 Date of Discharge: 07/17/24 Primary Care Physician: Dr. Steven Welsh MD Consultations 07/16/24 01:37 Consult: Gastroenterology Routine Consulting Provider: Leann Gastro[facility] Reason for Consult: suspected esophageal stenosis EMERGENT Consult: No MD Notified: Yes Date Notified: 07/16/24 Time Notified: 06:48 Method of Notification: Text Reason For Visit: PNA, AE ASTHMA/COPD, RESP INSUFF & NEAR SYNCOPE Diagnosis Discharge Diagnosis (1) Dysphagia: Status: Inactive Code(s): R13.10 - Dysphagia, unspecified Plan 59 old female was admitted with generalized malaise, nausea, dizziness, feeling that she is going to pass out but did not pass out, cough, SOB, weakness and back pain for 1 day. She has increased back pain for past 1 week, right more than left. 1. Dyspnea from possible evolving pneumonia: Patient is being admitted in PCU. CTA chest showed crescent shaped groundglass edema with crowding of bronchovascular structures in the medial basilar segment of right lower lobe concerning for evolving pneumonia. Patient has mild leukocytosis. Started on IV ceftriaxone and azithromycin. Triple PCR for SARS-CoV-2, flu and RSV are negative 07/17: Patient discharged on 5 more days of antibiotic Levaquin. 2. Acute Exacerbation of asthma/COPD with history of chronic cigarette smoker and cannabis abuse - Continue IV solumedrol begun in the ER and wean as tolerated. Also continue as needed/scheduled nebulizers and inhalers. Tobacco and cannabis cessation were strongly encouraged with nicotine patch offered to control cravings. Nicotine patch ordered. 07/17: Patient discharged on burst therapy of prednisone, Mucinex DM and pantoprazole. 3. Near syncopal event with Generalized Weakness, Fatigue and increasing back pain with chronic OA: 2D echo is ordered. Dizziness resolved 07/17: Echo is done but not reported yet. She wants to go home Dysphagia: Patient states she has dysphagia for some time and gets 5 times a week mainly with the solid diet. She does not have dysphagia with liquid or water. Patient going for EGD. Impressions : - Benign-appearing esophageal stenoses. Dilated. Biopsied. Treated with argon beam coagulation. - Medium-sized hiatal hernia. - No gross lesions in the duodenal bulb. Recommendations : - - Repeat upper endoscopy in 2 months for surveillance. - Pantoprazole 40 mg p.o. twice daily - Carafate 1 g 3 times a day - Smoking cessation - Temporary esophageal stent placement to keep the stricture open 4. Incidental abnormal CT finding of degenerative fibroid or nonspecific endometrial or myometrial process: I think this pelvic ultrasound can be done as an outpatient this is not the presenting symptom that patient came with but incidental finding. 5. Hypokalemia of 3.2 mmol/L present on admission - Give supplemental KCl and then recheck level in a.m. to confirm replacement. 6. Suspected esophageal stenosis with patient having severe dysphagia feeling food getting stuck custodial down her esophagus and forcing herself to vomit - Give mechanical soft diet to see if patient will be better able tolerate oral intake as gastroenterology is not available until Wednesday. Therefore, we will consult gastroenterology to see this patient for recommendations regarding EGD this admission. 7. Overweight; with BMI of 28.4 this admission with HELIO - Weight loss will be recommended. Check TSH. This complicates her case and may hamper recovery. 7. Essential hypertension - Maintain home regimen plus give prn IV Hydralazine for systolic blood pressure > 160 mmHg. 8. Hyperlipidemia - Check Lipid Profile this admission with patient currently not on pharmacologic therapy. 9. History of EtOH abuse; patient denies actively drinking at this time - Noted. We will watch closely in case of signs or symptoms of alcohol withdrawal. 10. Chronic seizure, pulmonary hypertension, history of PE, GERD/reflux esophagitis and depression: No active issues. Patient not on any medication for this disease. DVT prophylaxis - Lovenox 40 mg sq daily plus SCD's. Discharge summary Medications at Discharge Home Medications albuterol sulfate 2.5 mg/3 mL (0.083 %) solution for nebulization 2.5 mg (3 mL) inhalation Q4H PRN #25 vials 10/20/17 albuterol sulfate 90 mcg/actuation aerosol inhaler (Ventolin HFA) 1 - 2 puff inhalation PRN PRN Sob &/Or Wheezing 05/18/18 epinephrine 0.3 mg/0.3 mL injection, auto-injector 0.3 mg (0.3 mL) IM X1 ##1 01/21/19 dextromethorphan-guaifenesin ER 60 mg-1,200 mg tab,extend release,12hr (Mucinex DM) 1 tab PO Q12H 7 days #14 tabs 07/17/24 levofloxacin 500 mg tablet 500 mg PO DAILY 5 days #5 tabs 07/17/24 nicotine 14 mg/24 hr daily transdermal patch 14 mg transdermal DAILY 30 days #30 ea 07/17/24 pantoprazole 40 mg tablet,delayed release (Protonix) 40 mg PO BID 30 days #60 tabs 07/17/24 sucralfate 1 gram tablet (Carafate) 1 g PO .TID AC 1 month #90 tabs 07/17/24 Physical Exam Narrative Complain of chronic dysphagia with solid food about 5 times a week for some time 2 to 3 months. She had EGD many years ago more than 10 years. Going for EGD. Shortness of breath better. She wants to go home today. physical exam General: Alert, Oriented x3, Cooperative. BMI 27.9 kg/m?. HEENT: Atraumatic, PERRLA, EOMI, Normocephalic Oral: No Gingival or Mucosal Lesions/ Ulcerations Neck: Supple, No JVD, Negative Carotid Bruits Chest wall/Lungs: Air entry diminished in bilateral lung bases. Bilateral expiratory rhonchi Cardiovascular: Regular rate, Regular Rhythm, Normal S1, Normal S2, No M/G/R improved : No dysuria. No renal angle tenderness. No suprapubic tenderness. Extremities: No edema, Capillary Refill Less than 3 Seconds Skin: No rashes, No breakdown Musculoskeletal: No Tenderness to Palpation of Joints or Extremities Neurological: Cranial nerves II-XII grossly intact, DTR 2+/4. No acute focal neurological deficit. Psych/Mental Status: Flat affect Weight / BMI Weight Weight: 171 lb 4.787 oz Body Mass Index (BMI) 29.4 ABG / Lab / Microbiology Data 07/17/24 06:30 07/17/24 06:30 Laboratory: Laboratory Results - last 24 hr 07/15/24 16:08: Diff Path Review Reviewed 07/17/24 06:30: WBC 9.4, RBC 4.63, Hgb 13.4, Hct 41.1, MCV 88.8, MCH 28.9, MCHC 32.6, RDW Std Deviation 44.2 H, RDW Coeff of Madhu 13.6, Plt Count 429, MPV 9.5, Immature Gran % (Auto) 0.400, Neut % (Auto) 90.9 H, Lymph % (Auto) 5.3 L, [place] % (Auto) 3.3, Eos % (Auto) 0.0, Baso % (Auto) 0.1, Absolute Neuts (auto) 8.6 H, Absolute Lymphs (auto) 0.50 L, Nucleated RBC % 0, Sodium 138, Potassium 3.6, Chloride 105, Carbon Dioxide 26.0, Anion Gap 7, BUN 9, Creatinine 0.82, Estim Creat Clear Calc 75.44, Est GFR (MDRD) Af Amer 93, Est GFR (MDRD) Non-Af 77, BUN/Creatinine Ratio 11.0, Glucose 238 H, Calcium 9.2, Phosphorus 2.3 L, Magnesium 2.0 Microbiology: Microbiology 07/16/24 10:57 Urine, Clean Catch Streptococcus pneumoniae Antigen (M - Final 07/16/24 10:57 Urine, Clean Catch Legionella Antigen - Final 07/15/24 16:08 Mucosa - Nose SARS-CoV-2, Influenza & RSV (PCR) - Final D/C Instructions Discharge Diet: 2000 mg Sodium Diet Weight Bearing Status: Weight bearing as tolerated Call your doctor if you observe: Fever of 101 or Higher, Coldness, Increased Pain, Numbness or Tingling, Change in Color, Inability to urinate, Inability to have a bowel movement, Shortness of breath, Dizziness, Fainting spells, Swelling in the ankles, Chest pain, Prolonged hiccupping, Increased palpitations (irregular heartbeat) and Calf discomfort DC O2, CPAP, BIPAP Needs RN Home O2 Qualification: Home O2 Qualification: Is the patient on home oxygen No 07/17/24 12:17 Home O2 Qualification: AT REST 1- Pulse Ox at rest 93 07/17/24 12:17 Home O2 Qualification: WITH AMBULATION 1- Pulse Ox with ambulation 86 07/17/24 12:17 1- Oxygen Flow Rate with 0 07/17/24 12:17 ambulation 2- Pulse Ox with ambulation 92 07/17/24 12:17 2- Oxygen Flow Rate with 2 07/17/24 12:17 ambulation Home O2 Discharge instructions: Yes Type of respiratory needs?: Oxygen Oxygen frequency: Continuous Continuous oxygen liters per minute: 2 l/M DC home with Oxygen: Yes Home O2 MD Review: I have reviewed the oxygen testing, and the patient qualifies for home oxygen equipment and portability. The patient is mobile in the home and the community. When: IN 2 WEEKS Meaningful Use Info Meaningful Use Meaningful Use Diagnoses (Choose all that apply): None applicable Ischemic Stroke Statin Dosing Therapy Reference: STATIN DOSE THERAPY REFERENCE: * Patients > 75 years receive moderate or high dose statin therapy. * Patients 75 years or YOUNGER should receive HIGH intensity statin dose unless contraindicated. You will be required to document reason for non-treatment if statin daily dose does not meet guidelines. HIGH DOSE STATIN THERAPY DAILY Atorvastatin > than or = to 40 mg Rosuvastatin > than or = to 20 mg Amlodipine + Atorvastatin > than or = to 2.5/40 mg Ezetimibe + Simvastatin 10/80 mg Simvastatin 80mg Discharge Plan Admission Admit Date/Time: 07/15/24 23:46 Primary Reason for Your Visit: COPD exacerbation. Dysphagia Attending Provider: Jama Bustamante Primary Care Provider: Steven Welsh Consulting Providers: Albert Oliver Instructions Additional Instructions / Restrictions: Follow-up with [place] or outside pulmonary office 2 weeks Patient will also need transvaginal ultrasound as an outpatient for abnormal CT finding regarding uterus possible fibroid or myometrial or endometrial abnormality Discharge Orders/Prescriptions Prescriptions: New dextromethorphan-guaifenesin [Mucinex DM] 60-1,200 mg tablet extended release 12 hr 1 tab PO Q12H 7 Days Qty: 14 0RF nicotine 14 mg/24 hr Patch 24 Hour 14 mg transdermal DAILY 30 Days Qty: 30 0RF levofloxacin 500 mg tablet 500 mg PO DAILY 5 Days Qty: 5 0RF sucralfate [Carafate] 1 gram tablet 1 g PO .TID AC 30 Days Qty: 90 0RF Rx Instructions: 1 hr before meal pantoprazole [Protonix] 40 mg tablet,delayed release (DR/EC) 40 mg PO BID 30 Days Qty: 60 2RF Continued albuterol sulfate 2.5 MG/3 ML solution for nebulization 2.5 mg INHALATION Q4H PRN Qty: 25 0RF Rx Instructions: Use q4 hours and PRN for wheezing albuterol sulfate [Ventolin HFA] 18 GM HFA aerosol inhaler 1 - 2 puff inhalation PRN PRN (Reason: Sob &/Or Wheezing) Patient Comments: inhale 2 puffs by mouth every 4 hours as directed if needed for wheezing or shortness of breath epinephrine 0.3 MG syringe 0.3 mg IM X1 Qty: 1 1RF Referrals / Follow Up: Luis Fernando Salazar DO [Med Staff - Active Staff] - Within 2 Weeks (The office should call to schedule a follow-up appt for you. If you haven't heard from them by Wednesday please call the office to schedule. ) Idalia Hays DO [Med Staff - Active Staff] - 08/28/24 11:00 am Steven Welsh MD [Primary Care Provider] - 07/24/24 2:00 pm Jorge L Asencio DO [Med Staff - Active Staff] - Within 1 Month (Follow-up after EGD The office should call to schedule a follow-up appt for you. If you haven't heard from them by Wednesday please call the office to schedule. ) Disposition Disposition (needs filled in before D/C Order can be placed): Home, Self Care Charges/Coding Visit Charges Inpatient E&M: 45617 Disch Hosp >30min
--- NOTE | 2024-07-17 12:42 | OP.EGD_ITS ---
Patient Name: Nereida Willingham Procedure Date: 07/17/2024 10:25 AM Date of : 1965 Age: 59 Procedure: Upper GI endoscopy Indications: Dysphagia Providers: Jorge L Asencio DO Medicines: Monitored Anesthesia Care Patient Profile: This is a 59 year old female. Refer to note in patient chart for documentation of history and physical. Patient has symptoms of dysphagia with both liquids and solids. Complications: No immediate complications. Procedure: Pre-Anesthesia Assessment: - Prior to the procedure, a History and Physical was performed, and patient medications and allergies were reviewed. The patient is competent. The risks and benefits of the procedure and the sedation options and risks were discussed with the patient. All questions were answered and informed consent was obtained. Patient identification and proposed procedure were verified by the physician in the pre-procedure area. Mental Status Examination: alert and oriented. Airway Examination: normal oropharyngeal airway and neck mobility. Respiratory Examination: clear to auscultation. CV Examination: normal. Prophylactic Antibiotics: The patient does not require prophylactic antibiotics. Prior Anticoagulants: The patient has taken no anticoagulant or antiplatelet agents except for NSAID medication. ASA Grade Assessment: II - A patient with mild systemic disease. After reviewing the risks and benefits, the patient was deemed in satisfactory condition to undergo the procedure. The anesthesia plan was to use monitored anesthesia care (MAC). Immediately prior to administration of medications, the patient was re-assessed for adequacy to receive sedatives. The heart rate, respiratory rate, oxygen saturations, blood pressure, adequacy of pulmonary ventilation, and response to care were monitored throughout the procedure. The physical status of the patient was re-assessed after the procedure. After obtaining informed consent, the endoscope was passed under direct vision. Throughout the procedure, the patient's blood pressure, pulse, and oxygen saturations were monitored continuously. The gastroscope was introduced through the mouth, and advanced to the second part of duodenum. The upper GI endoscopy was accomplished without difficulty. The patient tolerated the procedure well. Scope In: 12:13:25 PM Scope Out: 12:31:54 PM Total Procedure Duration Time 0 hours 18 minutes 29 seconds Findings: Two benign-appearing, intrinsic severe (stenosis; an endoscope cannot pass) stenoses were found 37 to 40 cm from the incisors. The narrowest stenosis measured 4 mm (inner diameter) x 5 cm (in length). The stenoses were traversed after dilation. A TTS dilator was passed through the scope. Dilation with an 18-19-20 mm balloon dilator was performed to 18 mm. The dilation site was examined and showed moderate improvement in luminal narrowing. Biopsies were taken with a cold forceps for histology. Verification of patient identification for the specimen was done. Estimated blood loss was minimal. Coagulation for tissue destruction using argon beam at 0.4 liters/minute and 20 hernandez was successful. Estimated blood loss was minimal. A medium-sized hiatal hernia was present. No other significant abnormalities were identified in a careful examination of the stomach. No gross lesions were noted in the duodenal bulb. A moderate Schatzki ring was found in the lower third of the esophagus. A TTS dilator was passed through the scope. Dilation with an 18-19-20 mm balloon dilator was performed to 20 mm. The dilation site was examined and showed moderate improvement in luminal narrowing. Estimated blood loss was minimal. Impression: - Benign-appearing esophageal stenoses. Dilated. Biopsied. Treated with argon beam coagulation. - Medium-sized hiatal hernia. - No gross lesions in the duodenal bulb. Recommendation: - [facility] patient to [facility] for [facility]. - Full liquid diet today. - Continue present medications. - Await pathology results. - Repeat upper endoscopy in 2 months for surveillance. - Pantoprazole 40 mg p.o. twice daily - Carafate 1 g 3 times a day - Smoking cessation - Temporary esophageal stent placement to keep the stricture open Procedure Code(s): --- Professional --- 86582, Esophagogastroduodenoscopy, flexible, transoral; with ablation of tumor(s), polyp(s), or other lesion(s) (includes pre- and post-dilation and guide wire passage, when performed) 57266, 59,51, Esophagogastroduodenoscopy, flexible, transoral; with biopsy, single or multiple CPT copyright 2021 [employer]. All rights reserved. The codes documented in this report are preliminary and upon business analyst ecommerce review may be revised to meet current compliance requirements. Jorge L Asencio DO 07/17/2024 12:42:23 PM This report has been signed electronically. Number of Addenda: 0 Note Initiated On: 07/17/2024 10:25 AM
--- NOTE | 2024-07-17 12:42 | PCM.POST.ANE ---
Anesthesia: Postop Eval I Current Vital Signs Temperature: 97.6 F Pulse Rate: 88 Blood Pressure: 115/74 Respiratory Rate: 18 Pulse Ox: 95 Oxygen Delivery Method: Nasal Cannula Oxygen Flow Rate (L/min): 2 Assessment Airway patent: Yes Spontaneous unlabored respirations: Yes Mental status: Asleep nausea: No Vomiting: No Anesthesia Complication: No Fluid Hydration Crystalloid volume administer (ml): 40 Total IV fluid infused: 40 Progress Note Anesthesia document: Postop Eval 1 completed: Yes
--- NOTE | 2024-07-17 12:43 | OP.CCLET_ITS ---
07/17/2024 Steven Welsh [address] [place] [address] Re : Upper GI endoscopy procedure for Nereida Willingham Dear Dr. Welsh This procedure was performed on Wednesday, July 17, 2024. My impressions and recommendations are as follows: Impressions : - Benign-appearing esophageal stenoses. Dilated. Biopsied. Treated with argon beam coagulation. - Medium-sized hiatal hernia. - No gross lesions in the duodenal bulb. Recommendations : - Return patient to [facility] for ongoing care. - Full liquid diet today. - Continue present medications. - Await pathology results. - Repeat upper endoscopy in 2 months for surveillance. - Pantoprazole 40 mg p.o. twice daily - Carafate 1 g 3 times a day - Smoking cessation - Temporary esophageal stent placement to keep the stricture open My findings are described in the full procedure note, which is enclosed. If I can be of further assistance, please feel free to contact me at . Sincerely, Jorge L Asencio, 07/17/2024 12:42:23 PM This report has been signed electronically.
--- NOTE | 2024-07-17 13:13 | CASEMGMT ---
RN CM NOTE: RN CM to room to complete assessment. Pt is out of room at this time. RN CM to attempt at a later time. Delgado BSN RN CM
--- NOTE | 2024-07-17 13:22 | SUR.PHASEI ---
Pt waiting for transport to go back upstairs to pcu, pt got sudden onset nausea. queaseease given to pt to smell. called anesthesia for order of zofran.
[2024-07-17] MEDS: Ceftriaxone 1 GM/50 ML BAG IV (13:59)
[2024-07-17] MEDS: Acetaminophen 325 MG Tablet 650 MG PO (13:59)
[2024-07-17] MEDS: Lactobacillis Acidophilus 1 CAP PO ×2 (14:00→17:25)
--- NOTE | 2024-07-17 14:07 | PCM.POSTANE2 ---
Anesthesia Postop Eval I Sum Postop Eval Completion status Anesthesia document: Postop Eval 1 completed: Yes Anesthesia Postop Eval I Summary Anesthesia Postop Eval I Summary: Anesthesia Postop Eval I: Assessment Summary Airway patent Yes 07/17/24 12:42 [email or web address] Spontaneous unlabored Yes 07/17/24 12:42 [email or web address] respirations Mental status Asleep 07/17/24 12:42 [email or web address] nausea No 07/17/24 12:42 [email or web address] Vomiting No 07/17/24 12:42 [email or web address] Anesthesia Postop Eval I: Fluid Summary Crystalloid volume administer 40 07/17/24 12:42 [email or web address] (ml) Colloids volume administered ( ml) Blood Product volume administered (ml) Total IV fluid infused 40 07/17/24 12:42 [email or web address] Anesthesia Postop Eval I: Summary Notes Anesthesia Complication No 07/17/24 12:42 [email or web address] Anesthesia Complication Comment: Post-operative progress note Anesthesia: Postop Eval II Evaluation Mental status: Awake and Calm Pain Level: 0 nausea: No Vomiting: No Complications Anesthesia Complication: No
[2024-07-17] MEDS: Azithromycin 250 MG Tablet 500 MG PO (14:08)
[2024-07-17 15:31] LABS: Pathologist Review Reviewed
--- NOTE | 2024-07-17 16:07 | CASEMGMT ---
RADHA OGDEN Assessment: RADHA OGDEN to room to meet with pt for initial transition planning/care coordination assessment. RADHA OGDEN introduced self and role at [facility], pt voices understanding and consents to assessment. Pt is A/O and answers all questions appropriately at this time. Pt sitting up in bed with oxygen on in no distress. Care providers, pharmacy, and demographics verified/updated. Strata: 3 PCP:Dr Welsh, but states she is wanting to switch PCP's. Provided w/local PCP directory. RADHA OGDEN encouraged her to continue w/[facility] until she can get established w/new PCP and she voices understanding and is agreeable. Specialists: Dr Luis Fernando Stock Preferred Pharmacy: [facility] [place] Insurance: [employer] M[employer] (will be switching to [employer] MCR on 07/19/24), [facility] Prescription Benefit: yes LNOK: Maritza Light, sister Living Arrangements: Pt rents a room in a friends' home w/4 other people. She is on the 2nd floor and states does okay with the stairs. 3 steps to enter home. Independent. Transportation: Pt drives. Friend will take her home @ dc. DME: Pt has a BP machine, shower chair (but does not fit in her shower), grab bars, lift chair (available, but does not use), pulse ox, and nebulizer at home. No O2. Home amb testing has been completed and pt qualifies for 2 l/m w/exertion. She states she prefers to not dc on O2. Pt aware that per testing results that she does need it and aware Dr Bustamante plans to dc her home today. She states would like to use [employer] for DME co. She initially voiced concern that all 4 of her roommates and herself smokes. Discussed importance of not smoking while using the O2 and not being around anyone that is smoking or open flame. She voices understanding. She then stated that they will all understand, as one of the other roommates has had O2 in the past and they all were careful to not smoke around the O2. HHC/SNF: Pt has had HHC in the past but is unsure from which agency. Pt denies SNF stays. Pt wishes to discharge home and is glad she is getting to go home today and states no further concerns/needs. Plan: home w/O2. Delgado MCCONNELL RN, CM
[2024-07-17 16:46] LABS: Internal QC Validated? YES +Cl - CLEAR BKGD; Pregnancy, Urine Negative Negative
--- NOTE | 2024-07-17 17:13 | CASEMGMT ---
Patient will need oxygen for discharge. Patient prefers [employer]. RN ALIN received script and sent referral to [employer] via [facility]. Oxygen tank provided from stock.
== END 2024-07-17 18:19 | disposition home or self-care (01) | DRG 194 ==
LOC: ED 23:16 → PCU 07-16 00:25
PROVIDERS: Internal Medicine Gastroenterology; Admitting Provider Internal Medicine; Emergency Provider Emergency Medicine; PCP Family Medicine; Visit Provider Internal Medicine
PROC: 0DJ08ZZ Inspection of Upper Intestinal Tract, Via Natural or Artificial Opening Endoscopic (ICD-10-PCS; CPT 43235; principal; 2024-07-17 11:55)
DX: J18.9 Pneumonia, unspecified organism (principal); J44.0 Chronic obstructive pulmonary disease with (acute) lower respiratory infection; J44.1 Chronic obstructive pulmonary disease with (acute) exacerbation; K22.2 Esophageal obstruction; F12.10 Cannabis abuse, uncomplicated; I10 Essential (primary) hypertension; F17.210 Nicotine dependence, cigarettes, uncomplicated; E78.5 Hyperlipidemia, unspecified; E87.6 Hypokalemia; K44.9 Diaphragmatic hernia without obstruction or gangrene; M19.90 Unspecified osteoarthritis, unspecified site; K21.00 Gastro-esophageal reflux disease with esophagitis, without bleeding; E66.3 Overweight; Z68.28 Body mass index [BMI] 28.0-28.9, adult; Z86.16 Personal history of COVID-19; Z86.73 Personal history of transient ischemic attack (TIA), and cerebral infarction without residual deficits; Z79.51 Long term (current) use of inhaled steroids; Z86.711 Personal history of pulmonary embolism
CPT/HCPCS: 36415; 71046; 71275; 74177; 80048; 80053; 81001; 81025; 82550; 83690; 83735; 83880; 84100; 84443; 84484; 85025; 87449; 87631; 88305; 88312; 88341; 88342; 93005; 93306; 94640; 94668; 97162; 97166; 97802; 99252; 99285; Q9967; A4216; G0463; J2405

== ENCOUNTER 2025-01-04 20:54 | Emergency (ER) | payer MEDICAID, MEDICARE, SELFPAY ==
[2025-01-04 20:55] VITALS: BP 154/102; PULSE 130; RESP 25; TEMP 36.6; O2SAT 92; BMI 31.7
[2025-01-04 21:30] VITALS: BP 130/70; PULSE 70; TEMP 38.3; O2SAT 93; O2SAT 96
--- NOTE | 2025-01-04 21:41 | ED.VIS.DYS ---
HPI History of Present Illness Chief Complaint: Shortness of Breath Narrative Narrative: Chief complaint and HPI: General Malaise. 59-year-old female with past medical history of COPD, HTN presents for evaluation of general malaise. Patient states she felt generally unwell all day today. She states for the past several hours she has had shortness of breath, cough, chills, fever, body aches, and intermittent abdominal pain. She has not taken anything for symptoms. She denies any chest pain, constipation, diarrhea, dysuria. Review of systems: See HPI Medications: As listed on the chart Allergies: As listed on the chart PFSH: Per chart Vital signs: As listed on the chart. Reviewed. Physical exam: Gen: A&Ox3, NAD Head: Normocephalic, atraumatic Eyes: No sclera icterus, conjunctiva clear, PERRL, EOMI ENT: Moist mucous membranes, posterior oropharynx unremarkable, uvula midline, tonsils not enlarged Neck: Trachea midline, No JVD, Full ROM, No meningismus CV: RRR, no murmurs, no peripheral edema Resp: Lungs CTA BL, no w/r/c GI: Abd soft, non-distended, non-tender, no r/r/g Musc: Full ROM, no deformity Skin: Warm, dry, no rash Neuro: Alert, oriented, grossly intact, sensation intact Psych: Cooperative, appropriate mood and affect [facility] Medical History Hypertension Gastroesophageal reflux disease Leukocytosis Acute pyelonephritis Substance abuse Alcohol abuse Chronic pain Kidney stones Smoker Sleep apnea Pulmonary embolism TIA (transient ischemic attack) Stroke/cerebrovascular accident COPD (chronic obstructive pulmonary disease) Asthma Home Medications ?Medication ?Instructions ?Recorded ?Last Taken ?Type albuterol sulfate 2.5 mg/3 mL 2.5 mg (3 mL) inhalation Q4H PRN 10/20/17 02/08/23 Rx (0.083 %) solution for nebulization #25 vials albuterol sulfate 90 mcg/actuation 1 - 2 puff inhalation PRN PRN Sob 05/18/18 02/08/23 History aerosol inhaler (Ventolin HFA) &/Or Wheezing epinephrine 0.3 mg/0.3 mL 0.3 mg (0.3 mL) IM X1 ##1 01/21/19 Unknown Rx injection, auto-injector dextromethorphan-guaifenesin ER 60 1 tab PO Q12H 7 days #14 tabs 07/17/24 Unknown Rx mg-1,200 mg tab,extend release,12hr (Mucinex DM) levofloxacin 500 mg tablet 500 mg PO DAILY 5 days #5 tabs 07/17/24 Unknown Rx nicotine 14 mg/24 hr daily 14 mg transdermal DAILY 30 days 07/17/24 Unknown Rx transdermal patch #30 ea pantoprazole 40 mg tablet,delayed 40 mg PO BID 30 days #60 tabs 07/17/24 Unknown Rx release (Protonix) sucralfate 1 gram tablet (Carafate) 1 g PO .TID AC 1 month #90 tabs 07/17/24 Unknown Rx albuterol sulfate 90 mcg/actuation 2 puff inhalation Q4H PRN PRN 01/05/25 Unknown Rx aerosol inhaler (Ventolin HFA) Wheezing ##1 Allergy/AdvReac Type Severity Reaction Status Date / Time peanut Allergy Anaphylaxis Verified 01/04/25 20:54 tree nut (Tree Nut) Allergy Anaphylaxis Verified 01/04/25 20:54 Family History Mother COPD (chronic obstructive pulmonary disease) Hypertension Father Epilepsy Surgical History History of bilateral ligation of fallopian tubes History of cholecystectomy Social History household members: none Smoking Status: Current every day smoker tobacco type: cigarettes alcohol intake: former substance use type: marijuana EXAM Physical Exam Const Vital Signs: 01/04/25 20:55 01/04/25 21:30 01/04/25 21:30 Temperature 97.9 F 101 F H Temperature Source Temporal Oral Pulse Rate 130 H 70 Respiratory Rate 25 H Respiratory Effort Short of Breath Labored Respiratory Depth Normal Respiratory Pattern Normal Blood Pressure 154/102 H 130/70 H Blood Pressure Mean 119 90 Pulse Ox 92 96 Oxygen Delivery Method Room Air Room Air 01/04/25 22:00 01/04/25 22:04 01/04/25 23:00 Temperature Temperature Source Pulse Rate 112 H 119 H 107 H Respiratory Rate 16 Respiratory Effort Respiratory Depth Respiratory Pattern Normal Blood Pressure 185/71 H 123/50 H Blood Pressure Mean 109 74 Pulse Ox 96 93 Oxygen Delivery Method Room Air 01/05/25 00:00 01/05/25 00:29 Temperature 98.1 F 98.1 F Temperature Source Oral Pulse Rate 102 H 93 Respiratory Rate 16 16 Respiratory Effort Respiratory Depth Respiratory Pattern Blood Pressure 137/64 H 123/66 H Blood Pressure Mean 88 85 Pulse Ox 95 95 Oxygen Delivery Method Room Air MDM MDM MDM Narrative Medical decision making narrative: 59-year-old female with past medical history of COPD, HTN presents for evaluation of general malaise. Symptoms consist of shortness of breath, cough, chills, fever, body aches, and intermittent abdominal pain. Triage note states the patient has been using her inhaler however she states that she has not been using her inhaler secondary to it being with her boyfriend. On presentation, patient is nontoxic-appearing. She is febrile. Differential diagnosis includes but is not limited to viral illness, pneumonia, COPD exacerbation, electrolyte abnormality, dehydration, UTI. NS bolus, Toradol, Tylenol, Zofran ordered for symptoms. Patient is not wheezing on physical exam however will give DuoNeb for symptomatic shortness of breath. CBC with leukocytosis of 17, no anemia. Patient does have thrombocytosis with a platelet count of 478 however on chart review she has a history of this in the past. CMP without significant electrolyte abnormality or LOCO. No transaminitis. Lipase unremarkable. UA is negative for UTI. COVID, flu, RSV negative. Chest x-ray was personally reviewed interpreted by me, ED physician no pneumonia, effusion, cardiomegaly, pneumothorax. Radiology in agreement. At this point in time, no clear etiology to explain patient's leukocytosis however I suspect that it may be secondary to a viral illness. Nothing to suggest bacterial infection. She is not having any abdominal pain at this time and abdomen is benign therefore I do not think any abdominal imaging is needed. On reevaluation, patient states her symptoms have improved although still endorsing general malaise. I did ambulate her in the emergency department in which she did well without hypoxia. Her vitals have improved as she is no longer tachycardic or febrile. Patient is stable to discharge home. She is not having any wheezing on exam therefore low suspicion for COPD exacerbation. Patient will not be placed on steroids. However given that she does not have her albuterol inhaler, I did write for this. 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 Recommend [id number] Mucinex. Follow-up with PCP. Return precautions explained. She confirmed understand the plan. Impression: 1. General Malaise 2. Fever 3. Suspect viral syndrome Lab Data Labs: Laboratory Results - last 24 hr 01/04/25 01/04/25 21:38 21:40 WBC 17.0 H RBC 4.58 Hgb 13.0 Hct 40.0 MCV 87.3 MCH 28.4 MCHC 32.5 RDW Std Deviation 44.2 H RDW Coeff of Madhu 13.8 Plt Count 478 H MPV 9.2 Immature Gran % (Auto) 0.500 Neut % (Auto) 80.4 H Lymph % (Auto) 11.0 L [place] % (Auto) 7.5 Eos % (Auto) 0.2 Baso % (Auto) 0.4 Absolute Neuts (auto) 13.6 H Absolute Lymphs (auto) 1.86 Nucleated RBC % 0 Sodium 136 Potassium 3.8 Chloride 99 Carbon Dioxide 25.0 Anion Gap 12 BUN 8 Creatinine 0.72 Estim Creat Clear Calc 89.26 Est GFR (MDRD) Non-Af 97 BUN/Creatinine Ratio 11.1 Glucose 102 H Calcium 9.1 Total Bilirubin 0.48 AST 25 ALT 15 Alkaline Phosphatase 125 H Total Protein 7.6 Albumin 3.9 Globulin 3.7 Albumin/Globulin Ratio 1.0 Lipase 25 Urine Color Yellow Urine Clarity Clear Urine pH 6.0 Ur Specific [place] 1.010 Urine Protein 15 H Urine Glucose (UA) Normal Urine Ketones Negative Urine Occult Blood 50 H Urine Nitrite Negative Urine Bilirubin Negative Urine Urobilinogen Normal Ur Leukocyte Esterase Negative Urine RBC 0-5 SEEN Urine WBC 0 SEEN Ur Squamous Epith Cells 0 SEEN Urine Bacteria 0 SEEN Urine Mucus 0 SEEN Radiography Diagnostic Testing: Clinical Impression(s) from Imaging Studies Chest X-Ray 01/04/25 22:55 IMPRESSION: NO ACUTE FINDINGS. Reading Location: [place] [id number] Discharge Plan Triage Chief Complaint: Shortness of Breath ED Provider: Kwadwo Hernandez Dx/Rx/DC Orders Clinical Impression: Fever, Cough Instructions: ED Fever Control (Adult), ED Viral Syndrome (Adult) Prescriptions: New albuterol sulfate [Ventolin HFA] 90 mcg/actuation HFA aerosol inhaler 2 puff inhalation Q4H PRN PRN (Reason: Wheezing) Qty: 1 0RF No Action albuterol sulfate 2.5 MG/3 ML solution for nebulization 2.5 mg INHALATION Q4H PRN Qty: 25 0RF Rx Instructions: Use q4 hours and PRN for wheezing albuterol sulfate [Ventolin HFA] 18 GM HFA aerosol inhaler 1 - 2 puff inhalation PRN PRN (Reason: Sob &/Or Wheezing) Patient Comments: inhale 2 puffs by mouth every 4 hours as directed if needed for wheezing or shortness of breath epinephrine 0.3 MG syringe 0.3 mg IM X1 Qty: 1 1RF dextromethorphan-guaifenesin [Mucinex DM] 60-1,200 mg tablet extended release 12 hr 1 tab PO Q12H 7 Days Qty: 14 0RF nicotine 14 mg/24 hr Patch 24 Hour 14 mg transdermal DAILY 30 Days Qty: 30 0RF levofloxacin 500 mg tablet 500 mg PO DAILY 5 Days Qty: 5 0RF sucralfate [Carafate] 1 gram tablet 1 g PO .TID AC 30 Days Qty: 90 0RF Rx Instructions: 1 hr before meal pantoprazole [Protonix] 40 mg tablet,delayed release (DR/EC) 40 mg PO BID 30 Days Qty: 60 2RF Primary Care Provider: Steven Welsh Referrals: Steven Welsh MD [Primary Care Provider] - 3-5 Days Activity Restrictions/Additional Instructions: Follow-up with your primary care physician, return back to the ED if symptoms change or worsen. Tylenol and Motrin as needed for fever. You received Toradol here in the emergency department, no ibuprofen for 8 hours. You received Tylenol here in the emergency department, no Tylenol for 6 hours. Mucinex as needed for cough. Print Language: Ecuad[place] Disposition Disposition: Home, Self Care Discharge Date/Time: 01/05/25 00:32
--- OUTSIDE RECORDS SUMMARY | 2025-01-04 21:51 | XMS RPT_ITS | CCD ---
Author Organization [facility] Care Team Providers Care Wage Hand Name Role Phone Shagufta Francisco CNP Unavailable Crista PATRICKN, Caren A Unavailable Unavailab BRENT Perez (PAC) Unavailable Unavailhyun e Unavailable Primary Care Provider UnavailIvette Steven MD Primary Care Provider Dr. Ivette Welsh Primary Care Provider Dr. Omega Mejía Emergency Provider Robby, Dr. Yun Admit Provider Dr. Jama Bustamante Attending Provider Dr. Jama Bustamante Other Provider KENISHA ABBASI MD III Primary Care Physician Radha Victoria RN Unavailable Unavailable IVETTE WELSH Primary Care Unavailable ORTIZ STROUD Admitting VANE Gutierrez Attending Unavailable Radha Victoria RN Unavailable Unavailable Dr. vIette Welsh Primary Care Provider Dr. Omega Mejía Emergency Provider Dr. Jama Bustamante Admit Provider Dr. Jama Bustamante Attending Provider Dr. Jama Bustamante Other Provider Dr. Idalia Sanchez Emergency Provider [phone] Dr. Alexandru Holden Admit Provider Dr. Alexandru Holden Attending Provider Dr. Alexandru Holden Other Provider Dr. Nito Thorne Attending Provider [phone] Nito Thorne Other Provider JOSE VARGHESE, ELKE Attending Unavailable AYLEEN VARGHESE, KENISHA A III Primary Care Unavailabl e AYLEEN VARGHESE, KENISHA A III Primary Care Unavailabl e JOSHUA FERNANDEZ DO Attending Unavailable Ivette Welsh MD Primary Care Provider Unavailable Primary Care Provider Unavailabl e Tannhof OUTDOOR STUDIES PROFESSOR.CLUTCH SPECIALIST, Letha Unavailable Stuart OUTDOOR STUDIES PROFESSOR.CLUTCH SPECIALIST, Manoj Unavailable [phone] MICHELLE VARGHESE, KELLIE Roche Attending Unavail able AYLEEN VARGHESE, KENISHA A III Primary Care Unavailabl e Bajwa, Tereso Attending Unavailable Bajwa, Tereso Referring Unavailable Elderbrock, Ivette Primary Care Unavailable Idalia Sanchez Attending Unavailable Elderbroalexsandra, Ivette Primary Care Unavailable Carl Richmond Attending Unavailable Elderbroalexsandra, Ivette Primary Care Unavailable Elderbroalexsandra, Ivette Referring Unavailable Elderbroalexsandra, Ivette Primary Care Unavailable Idalia Hays Attending Unavailabl e Elderbrock, Ivette Primary Care Unavailable Robby, Jama Referring Unavailable Luis M Jorge L Attending Unavailable Albert Hartmann Consulting Unavailable Albert Hartmann Admitting Unavailable Robby, Jama Consulting Unavailable Robby, Jama Attending Unavailable Albert Hartmann Attending Unavailable Robby, Jama Attending Unavailable Elderbroalexsandra, Ivette Primary Care Unavailable Albert Hartmann Consulting Unavailable Albert Hartmann Admitting Unavailable IVETTE WELSH Primary Care Unavailable IVETTE WELSH Attending Unavailable IVETTE WELSH D Primary Care Unavailable Tannhof OUTDOOR STUDIES PROFESSOR.CLUTCH SPECIALIST, Letha Unavailable Unavail able Allergies Allergy Classification Reported Allergen(s) Allergy Type Date of Onset Reaction(s) Facility (10 sources) peanut allergenic extract; Translations: [peanut] drug allergy 6 anaphylaxis [facility] Work Phone: (20 sources) tree nut, unspecified; Translations: [TREE NUT] drug allergy 6 Anaphylaxis [facility] Work Phone: (3 sources) OTHER; Translations: [OTHER] Propensity to adverse reactions (disorder) 6 AOF [facility] Other [facility] (20 sources) all nuts [Other] Propensity to adverse reactions 6 Anaphylaxis [facility] Work Phone: (20 sources) peanut; Translations: [PEANUTS] Food allergy 3 Anaphylaxis [facility] (20 sources) brazil nut allergenic extract; Translations: [BRAZIL NUT] Drug Allergy 3 Anaphylaxis [facility] (20 sources) cashew nut allergenic extract; Translations: [CASHEW NUT] Drug Allergy 3 Anaphylaxis [facility] (20 sources) Hazelnut; Translations: [HAZELNUT] Drug Allergy 3 Anaphylaxis [facility] (20 sources) pecan allergenic extract; Translations: [PECAN NUT] Drug Allergy 3 Anaphylaxis [facility] (20 sources) [place] nut; Translations: [PINE NUT] Drug Allergy 3 Anaphylaxis [facility] (20 sources) pistachio nut allergenic extract; Translations: [PISTACHIO NUT] Drug Allergy 3 Anaphylaxis [facility] (20 sources) Argan Nut; Translations: [ARGAN NUT] Drug Allergy 3 Anaphylaxis [facility] (20 sources) Macadamia Nut Oil; Translations: [MACADAMIA NUT OIL] Drug Allergy 3 [facility] Medications Current Medications Medication Drug Class(es) Dates Sig (Normalized) Sig (Original) + Nebulizer Supplies (20 sources) Start: 11-09-2017 + Nebulizer Supplies Indications: Mild intermittent asthma without complication (HCC) Nebulizer, Mask, & O2 Tubing. Use as directed. 1 Each 11/09/2017 Active Start: 11-09-2017 + Nebulizer Moses pplies Indications: Mild intermittent asthma without complication Nebulizer, Mask, & O2 Tubing. Use as directed. 1 Each 11/09/2017 Active Comment on above: Nebulizer, Mask, & O 2 Tubing. Use as directed. [id number] 200 actuat albuterol 0.09 mg/actuat metered dose inhaler (20 sources) beta2-Adrenergic Agonist Start: 5 take 2 puff(s) by mouth every four hours for wheezing albuterol HFA (PROVENTIL HFA, VENTOLIN HFA) 90 mcg/actuation inhaler Indications: Moderate persistent asthma with acute exacerbation (HCC) , Chronic bronchitis, unspecified chronic bronchitis type (HCC) inhale 2 puffs by mouth and INTO THE LUNGS every 4 hours if needed for wheezing or shortness of breath 18 g 5 11/02/2024 Active Start: 10-15-2023 End: 11-02-2024 take 2 puff(s) by mouth every four hours for wheezing albuterol HFA (PROVENTIL HFA, VENTOLIN HFA) 90 mcg/actuation inhaler Indications: Moderate persistent asthma with acute exacerbation (HCC) , Chronic bronchitis, unspecified chronic bronchitis type (HCC) inhale 2 puffs by mouth and INTO THE LUNGS every 4 hours if needed for wheezing or shortness of breath 8.5 g 5 07/18/2024 11/02/2024 Discontinued Start: 11-13-2022 End: 02-18-2023 take 2 puff(s) by inhalation every four hours as needed for wheezing albuterol HFA (PROVENTIL HFA, VENTOLIN HFA) 90 mcg/actuation inhaler Inhale 2 Puffs as instructed every 4 hours as needed for wheezing/shortness of breath. 8 g 0 11/13/2022 02/18/2023 Discontinued Start: 06-02-2022 End: 06-18-2023 take 2 puff(s) by mouth every four hours for wheezing albuterol HFA (VENTOLIN HFA) 90 mcg/actuation inhaler Indications: Moderate persistent asthma with acute exacerbation , Chronic bronchitis, unspecified chronic bronchitis type (HCC) inhale 2 puffs by mouth every 4 hours as directed if needed for wheezing shortness of breath 18 g 5 06/02/2022 12/21/2022 Discontinued Start: 05-18-2018 Albuterol Sulf ate (Ventolin Hfa) 18 GM HFA aerosol inhaler Active 1 - 2 PUFF INHALATION NEEDED May 18, 2018 12:00am Start: 05-18-2018 Albuterol Sulf ate (Ventolin Hfa) 18 GM HFA aerosol inhaler Active 1 - 2 PUFF INHALATION NEEDED May 17, 2018 11:00pm Start: 10-20-2017 take 2.5 mg by inhal ation every four hours as needed for wheezing Albuterol Sulfate Active 2.5 MG INHALATION EVERY 4 HOURS NEEDED October 19, 2017 11:00pm Use q4 hours and PRN for wheezing Start: 06-02-2016 End: 10-18-2016 take 2.5 mg by inhalation every four hours Albuterol Sulfate Discontinued 2.5 MG INHALATION EVERY 4 HOURS WHILE AWAKE June 02, 2016 12:00am October 18, 2016 9:49am Start: 10-24-2015 VENTOLIN HFA 1 08 (90 Base) MCG/ACT AERS 1-2 puffs q4h as needed ALBUTEROL SULFATE [id number] Juhi Reyes Start: 07-22-2015 End: 10-19-2015 take 2.5 mg by inhalation every two hours as needed Albuterol Sulfate Discontinued 2.5 MG INHALATION EVERY 2 HOURS NEEDED July 22, 2015 12:00am October 19, 2015 10:36am Start: 10-31-2014 End: 01-07-2015 take 1 puff(s) by inhalation every six hours as needed Albuterol Sulfate (Proair Hfa (Sp)Vent Pts) 1 PUFF inhaler Discontinued 2 PUFF INHALATION EVERY 6 HOURS NEEDED October 30, 2014 11:00pm January 07, 2015 5:57pm Start: 12-07-2011 take 2 puff(s) by in halation every four hours as needed for wheezing Ventolin 90 mcg/inh inhalation aerosol 2 puff(s), Inhalation, q4h, PRN Wheezing, 0 Refill(s) Start Date: 12/07/11 Status: Ordered Repeat number: 1 Comment on above: inhale 2 puffs by mo uth every 4 hours as directed if needed for wheezing shortness of breath Inhale 2 Puffs as in structed every 4 hours as needed for wheezing/shortness of breath. inhale 2 puffs by mo uth and INTO THE LUNGS every 4 hours if needed for wheezing or shortness of breath albuterol 0.833 mg/ml / ipratropium bromide 0.167 mg/ml inhalation solution (20 sources) Anticholinergic, beta2-Adrenergic Agonist Start: 09-30-19 End: 07-18-20 take 3 mL by inhalation every six hours as needed for wheezing ipratropium-albutero l (DUONEB) 0.5 mg-3 mg(2.5 mg base)/3 mL nebu Indications: Moderate persistent asthma with acute exacerbation (HCC) Inhale 3 mL as instructed every 6 hours as needed (wheezing). Use over 5-15minutes per nebulizer. 120 Each 11 07/18/2024 Active Start: 08-31-2021 End: 06-05-2023 take 1 mL by inhalation twice daily Ipratropium-Albuterol Active 3 ML INHALATION TWICE A DAY June 05, 2023 1:20pm Start: 09-10-2016 DUONEB 0.5-2.5 (3) MG/3ML SOLN Via nebulizer as needed IPRATROPIUM-ALBUTEROL Doreen De Los Santos RN Start: 07-22-2015 End: 10-19-2015 take 1 mL by inhalation every six hours Ipratropium-Albuterol Discontinued 3 ML INHALATION EVERY 6 HOURS X 10 DAYS July 22, 2015 12:00am October 19, 2015 10:37am Comment on above: Inhale 3 mL as instr ucted every 6 hours as needed (wheezing). Use over 5-15minutes per nebulizer. amLODIPine 5 mg oral tablet (12 sources) Dihydropyridine Calcium Channel Sangeeta Start: take 5 mg by mouth once daily Amlodipine Active 5 MG PO DAILY June 05, 2023 12:00am Start: 06-10-2016 End: 01-13-2017 take 5 mg by mouth once daily Amlodipine Discontinued 5 MG PO DAILY June 10, 2016 12:00am September 12, 2016 11:16am Blood Pressure Cuff - Home Use (20 sources) Start: 11-19-2017 Blood Pressure Cuff - Home Use Indications: Essential hypertension, benign BLOOD PRESSURE CUFF FOR HOME USE. DX: LABILE BLOOD PRESSURE 1 Device 11/19/2017 Active Start: 11-19-2017 Blood Pressure Cuff - Home Use Indications: Essential hypertension, benign BLOOD PRESSURE CUFF FOR HOME USE. DX: LABILE BLOOD PRESSURE 1 Device 0 11/19/2017 Active Comment on above: BLOOD PRESSURE CUFF FOR HOME USE. DX: LABILE BLOOD PRESSURE COMPOUNDED PRESCRIPTION (20 sources) Start: 11-09-2017 COMPOUNDED PRESCRIPTION Indications: Mild intermittent asthma without complication (HCC) 1 Device once daily. NEBULIZER FOR HOME USE. DX: asthma, mild intermittent J45.20 1 Device 11/09/2017 Active Start: 11-09-2017 COMPOUNDED PRE SCRIPTION Indications: Mild intermittent asthma without complication 1 Device once daily. NEBULIZER FOR HOME USE. DX: asthma, mild intermittent J45.20 1 Device 11/09/2017 Active Start: 11-09-2017 COMPOUNDED PRE SCRIPTION Indications: Mild intermittent asthma without complication 1 Device once daily. NEBULIZER FOR HOME USE. DX: asthma, mild intermittent J45.20 1 Device 0 11/09/2017 Active Comment on above: 1 Device once daily. NEBULIZER FOR HOME USE. DX: asthma, mild intermittent J45.20 Dulera 200 mcg-5 mcg/inh Metered Dose Inhaler (3 sources) Start: 02-23-2017 take 1 dose by inhalation twice daily Dulera 200 mcg-5 mcg/inh Metered Dose Inhaler Dose = 2 puff(s), Inhalation, BID Start Date: 02/23/17 Status: Ordered Repeat number: 1 Start: 02-23-2017 take 1 dose by inhal ation twice daily Dulera 200 mcg-5 mcg/inh Metered Dose Inhaler Dose = 2 puff(s), Inhalation, BID Start Date: 02/23/17 Status: Ordered [id number] 0.3 ml EPINEPHrine 1 mg/ml auto-injector (20 sources) alpha-Adrenergic Agonist, beta-Adrenergic Agonist, Catecholamine Start: 01-23-2019 End: 02-18-2023 EPINEPHrine (EPIPEN) 0.3 mg/0.3 mL auto-injector Use as directed for allergic reaction 2 Each 1 02/18/2023 Active Start: 01-21-2019 inject 0.3 mg by int ramuscular injection once Epinephrine Active 0.3 MG IM ONE TIME January 20, 2019 11:00pm Start: 07-11-2017 EpiPen 2-Ruchi 0 .3 mg injectable kit Dose : 0.3 mg = 1 EA, Intramuscular, AsDirected, PRN allergic reaction, # 1 kit(s), 0 Refill(s) Start Date: 07/11/17 Status: Ordered Quantity: 1.0 Unit: kit(s) Repeat number: 1 Start: 10-24-2015 EPIPEN 2-RUCHI 0 .3 MG/0.3ML SOAJ as needed EPINEPHRINE [id number] Juhi Reyes Start: 10-20-2015 EpiPen 2-Ruchi D ose : 0.3 mg =, Once, PRN as needed for anaphylaxis, 0 Refill(s) Start Date: 10/20/15 Status: Ordered Repeat number: 1 Start: 10-20-2015 EpiPen 2-Ruchi D ose : 0.3 mg =, Once, PRN as needed for anaphylaxis, 0 Refill(s) Start Date: 10/20/15 Status: Ordered Comment on above: use as needed follow ing exposure to nuts Use as directed for allergic reaction hydroCHLOROthiazide 12.5 mg oral capsule (1 source) Thiazide Diuretic Start: 2022 take 12.5 mg by mouth once daily Hydrochlorothiazide Active 12.5 MG PO DAILY June 05, 2023 12:00am ibuprofen 200 mg oral capsule (20 sources) Nonsteroidal Anti-inflammatory Drug Ibuprofen 200 mg cap Take by mouth as directed. Active Comment on above: Take by mouth as dir ected. lansoprazole 15 mg delayed release oral capsule (3 sources) Proton Pump Inhibitor Start: 2016 Prevacid 15 mg oral delayed release capsule (NF) Dose : 15 mg = 1 cap(s), PO, Daily, # 14 tab(s), 0 Refill(s) Start Date: 02/23/17 Status: Ordered Quantity: 14.0 Unit: tab(s) Repeat number: 1 levETIRAcetam 500 mg oral tablet (5 sources) Anti-epileptic Agent Start: 2016 Keppra 500 mg oral tablet Dose : 500 mg = 1 tab(s), Oral, BID Start Date: 02/23/17 Status: Ordered Repeat number: 1 Start: 09-10-2016 take 1 tablet by rob th twice daily KEPPRA 500 MG TABS One tablet by mouth twice daily LEVETIRACETAM [id number] Doreen De Los Santos RN Lopressor 25mg--USE metoprol ol tartrate 25 mg oral tablet (3 sources) Start: 10-20-2015 Lopressor 25mg --USE metoprolol tartrate 25 mg oral tablet Dose : 25 mg = 1 tab(s), Oral, BID Start Date: 10/20/15 Status: Ordered Repeat number: 1 Start: 10-20-2015 Lopressor 25mg --USE metoprolol tartrate 25 mg oral tablet Dose : 25 mg = 1 tab(s), Oral, BID Start Date: 10/20/15 Status: Ordered Nebulizer (20 sources) Start: 05-23-2018 Nebulizer Melvi cations: Bacterial pneumonia , Mild intermittent asthma with acute exacerbation (HCC) 1 Device four times daily as needed. NEBULIZER FOR HOME USE. DX: pneumonia; asthma J 45.909 J 15.9 1 Each 05/23/2018 Active Start: 05-23-2018 Nebulizer Melvi cations: Bacterial pneumonia , Mild intermittent asthma with acute exacerbation 1 Device four times daily as needed. NEBULIZER FOR HOME USE. DX: pneumonia; asthma J 45.909 J 15.9 1 Each 05/23/2018 Active Start: 05-23-2018 Nebulizer Melvi cations: Bacterial pneumonia , Mild intermittent asthma with acute exacerbation 1 Device four times daily as needed. NEBULIZER FOR HOME USE. DX: pneumonia; asthma J 45.909 J 15.9 1 Each 0 05/23/2018 Active Comment on above: 1 Device four times daily as needed. NEBULIZER FOR HOME USE. DX: pneumonia; asthma J 45.909 J 15.9 Nebulizer Accessories kit (20 sources) Start: 05-23-2018 Nebulizer Accessories kit 1 Each four times daily as needed. 1 Kit 05/23/2018 Active Start: 05-23-2018 Nebulizer Acce ssories kit 1 Each four times daily as needed. 1 Kit 0 05/23/2018 Active Comment on above: 1 Each four times da humaira as needed. Nebulizer Accessories misc (20 sources) Start: 06-02-2022 Nebulizer Accessories misc Indications: Severe persistent asthma with acute exacerbation (HCC) 1 Each twice daily. New mask for nebulizer 1 Each 3 06/02/2022 Active Start: 06-02-2022 Nebulizer Acce ssories misc Indications: Severe persistent asthma with acute exacerbation 1 Each twice daily. New mask for nebulizer 1 Each 3 06/02/2022 Active Comment on above: 1 Each twice daily. New mask for nebulizer nirmatrelvir tablet 300 mg (150 mg x 2) and ritonavir tablet 100 mg in a dose pack (PAXLOVID) (3 sources) Start: 08-23-2024 End: 08-28-2024 nirmatrelvir tablet 300 mg (150 mg x 2) and ritonavir tablet 100 mg in a dose pack (PAXLOVID) Administer TWO pink nirmatrelvir 150 mg tablets and ONE white ritonavir 100 mg tablet for a total of three tablets twice daily. 30 tablet 08/23/2024 08/28/2024 Active Start: 08-23-2024 End: 08-23-2024 nirmatrelvir tablet 300 mg ( 150 mg x 2) and ritonavir tablet 100 mg in a dose pack (PAXLOVID) Administer TWO pink nirmatrelvir 150 mg tablets and ONE white ritonavir 100 mg tablet for a total of three tablets twice daily. 30 tablet 08/23/2024 08/23/2024 Discontinued pantoprazole 40 mg delayed release oral tablet (20 sources) Proton Pump Inhibitor Start: 07-24-2024 take 1 tablet by mouth twice daily before mealtime pantoprazole DR (PROTONIX) 40 mg tablet Indications: Dysphagia, unspecified type , Sore throat Take 1 tablet by mouth two times a day. Take on empty stomach, 1/2 hr before meal. 60 tablet 11 07/24/2024 Active Start: 02-22-2023 pantoprazole 4 0 mg oral enteric coated tablet Dose : 40 mg = 1 tab(s), Oral, qDay Start Date: 02/22/23 Status: Ordered Repeat number: 1 Start: 02-18-2023 End: 07-24-2024 take 1 tablet by mouth once daily before breakfast pantoprazole DR (PROTONIX) 40 mg tablet Indications: Dysphagia, unspecified type Take 1 tablet by mouth daily before breakfast. Take on empty stomach, 1/2 hr before meal. 30 tablet 2 02/18/2023 07/24/2024 Discontinued Start: 11-16-2022 End: 02-08-2023 take 1 tablet by mouth twice daily Pantoprazole (Protonix) 40 mg tablet,delayed release (DR/EC) Discontinued 40 MG PO TWICE A DAY 07 05November 15, 2022 11:00pm February 08, 2023 2:00pm Comment on above: Take 1 tablet by rob th daily before breakfast. Take on empty stomach, 1/2 hr before meal. predniSONE 20 mg oral tablet (20 sources) Corticosteroid Start: End: take 2 tablets by mouth once daily predniSONE (DELTASONE) 20 mg tablet Take 2 tablets by mouth once daily for 5 days. 10 tablet 08/23/2024 08/28/2024 Active Start: 06-05-2023 take 40 mg by mouth at breakfa st Prednisone Active 40 MG PO WITH BREAKFAST June 05, 2023 12:00am Start: 08-31-2021 End: 02-08-2023 take 60 mg by mouth once daily Prednisone Discontinued 60 MG PO DAILY August 31, 2021 12:00am February 08, 2023 2:01pm Start: 10-26-2020 End: 11-02-2020 predniSONE 50 mg oral tablet Dose : 50 mg = 1 tab(s), PO, Daily, # 7 tab(s), 0 Refill(s) Start Date: 10/26/20 Stop Date: 11/02/20 Status: Ordered Quantity: 7.0 Unit: tab(s) Repeat number: 1 Start: 01-20-2016 End: 02-04-2016 Prednisone Discontinued 10 M G PO DIRECTED January 19, 2016 11:00pm February 04, 2016 1:14pm 40 mg daily x 3 days then, 30 mg daily x 3 days then, 20 mg daily x 3 days then, 10 mg daily x 3 days Start: 12-22-2015 End: 12-25-2015 take 10 mg by mouth once daily Prednisone Discontinued 10 MG PO DAILY December 21, 2015 11:00pm December 25, 2015 8:19am Start: 12-22-2015 End: 12-25-2015 take 5 mg by mouth at bedtime Prednisone Discontinued 5 MG PO AT BEDTIME December 21, 2015 11:00pm December 25, 2015 8:17am Start: 12-05-2015 End: 12-12-2015 take 30 mg by mouth once daily Prednisone Discontinued 30 MG PO DAILY December 04, 2015 11:36pm December 12, 2015 6:42am Start: 10-19-2015 End: 12-05-2015 take 2 tablets by mouth twice daily Prednisone Discontinued 10 MG PO DAILY October 19, 2015 10:40am December 04, 2015 11:36pm take 2 tablets twice daily for 5 more days Start: 09-23-2015 End: 11-08-2015 Prednisone Discontinued 10 M G PO DAILY October 12, 2015 12:26pm October 19, 2015 10:37am Take 3 tablets for 3 days, then Take 2 tablets for 3 days, then Take 1 tablet for 3 days, then stop Start: 09-21-2015 End: 09-23-2015 take 4 tablets by mouth once daily, then take 3 tablets by mouth once daily, then take 2 tablets by mouth once daily, then take 1 tablet by mouth once daily, then take 1 tablet by mouth every other day Prednisone Discontinued 10 MG PO DIRECTED September 21, 2015 12:00am September 23, 2015 1:53pm Take 4 tablets daily for 3 days, then 3 daily for 3 days, then 2 daily for 3 days, then 1 a day for 3 days then 1 QOD for 3 doses. sucralfate 1000 mg oral tablet (5 sources) Aluminum Complex Start: 07-17-2024 sucralfate (C ARAFATE) 1 gram tablet .TID AC 07/17/2024 Active Completed/Discontinued Medications Medication Drug Class(es) Dates Sig (Normalized) Sig (Original) acetaminophen 325 mg / HYDROcodone bitartrate 5 mg oral tablet (11 sources) Opioid Agonist Start: 08-11-2020 End: 08-14-2020 take 1 tablet by mouth every six hours as needed Hydrocodone-Acetami nophen Discontinued 1 TABLET PO EVERY 6 HOURS NEEDED 10 August 11, 2020 August 14, 2020 12:03am Start: 10-24-2015 End: 01-13-2017 NORCO 5-325 MG TABS as direc harpal HYDROCODONE-ACETAMINOPHEN [id number] Luis Fernando Salazar DO Start: 10-24-2015 NORCO 5-325 MG TABS as directed HYDROCODONE-ACETAMINOPHEN [id number] Doreen De Los Santos RN acetaminophen 325 mg / oxyCODONE hydrochloride 5 mg oral tablet (15 sources) Opioid Agonist Start: 10-12-2022 End: 02-08-2023 take 1 tablet by mouth every six hours Oxycodone-Acetaminophen (Endocet) 5-325 mg tablet Discontinued 1 TABLET PO EVERY 6 HOURS 12 October 12, 2022 February 08, 2023 2:00pm Start: 10-24-2015 take 1 tablet by rob th every four hours as needed PERCOCET 5-325 MG TABS 1 tab po q4h as needed OXYCODONE-ACETAMINOPHEN [id number] Juhi Reyes Start: 03-04-2015 End: 03-09-2015 take 1 tablet by mouth every four hours as needed Oxycodone-Acetaminophen Discontinued 1 - 2 TABLET PO EVERY 4 HOURS NEEDED March 03, 2015 11:00pm March 09, 2015 2:05pm amitriptyline hydrochloride 25 mg oral tablet (4 sources) Tricyclic Antidepressant Start: 09-10-2016 End: 01-13-2017 take 1 tablet by mouth once daily AMITRIPTYLINE HCL 25 MG TABS (Elavil) One tablet by mouth daily AMITRIPTYLINE HCL [id number] Luis Fernando Salazar DO amoxicillin 500 mg oral tablet (7 sources) Penicillin-class Antibacterial Start: 09-09-2022 End: 02-08-2023 take 500 mg by mouth three times daily Amoxicillin Discontinued 500 MG PO THREE TIMES A DAY September 09, 2022 12:00am February 08, 2023 2:00pm atorvastatin 80 mg oral tablet (9 sources) HMG-CoA Reductase Inhibitor Start: 09-10-2016 take 1 tablet by mouth once daily ATORVASTATIN CALCIUM 80 MG TABS One tablet by mouth daily ATORVASTATIN CALCIUM [id number] Doreen De Los Santos RN Start: 10-31-2014 End: 01-07-2015 take 40 mg by mouth at bedtime Atorvastatin Discontinu ed 40 MG PO AT BEDTIME October 30, 2014 11:00pm January 07, 2015 5:53pm azithromycin 250 mg oral tablet (11 sources) Macrolide Antimicrobial Start: 09-10-2016 End: 01-13-2017 take 1 tablet by mouth once daily AZITHROMYCIN 250 MG TABS One tablet by mouth daily AZITHROMYCIN [id number] Doreen De Los Santos RN Start: 09-21-2015 End: 09-23-2015 take 250 mg by mouth once daily Azithromycin Discontinued 250 MG PO DAILY September 21, 2015 12:00am September 23, 2015 1:54pm benzonatate 100 mg oral capsule (11 sources) Non-narcotic Antitussive Start: 10-24-2015 End: 01-13-2017 take 1 tablet by mouth once daily TESSALON PERLES 100 MG CAPS One tablet by mouth daily BENZONATATE [id number] Luis Fernando Salazar DO Start: 09-21-2015 End: 10-09-2015 take 200 mg by mouth three times daily as needed Benzonatate Discontinued 200 MG PO 3 TIMES DAILY NEEDED September 21, 2015 12:00am October 09, 2015 3:20pm BUDESONIDE-FORMOTEROL FUMARATE (4 sources) Corticosteroid, beta2-Adrenergic Agonist Start: 10-24-2015 End: 01-13-2017 take 2 puff(s) by inhalation twice daily SYMBICORT 160-4.5 MCG/ACT AERO INH 2 puffs twice daily BUDESONIDE-FORMOTEROL FUMARATE [id number] Luis Fernando Salazar DO Start: 10-24-2015 take 2 puff(s) by in halation twice daily SYMBICORT 160-4.5 MCG/ACT AERO INH 2 puffs twice daily BUDESONIDE-FORMOTEROL FUMARATE [id number] Juhi Reyes ciprofloxacin 500 mg oral tablet (3 sources) Quinolone Antimicrobial Start: 02-11-2023 End: 06-05-2023 take 1 tablet by mouth twice daily Ciprofloxacin Hcl (Cipro) 500 mg tablet Discontinued 500 MG PO TWICE A DAY 14 February 10, 2023 11:00pm June 05, 2023 1:18pm citalopram 40 mg oral tablet (11 sources) Serotonin Reuptake Inhibitor Start: 10-24-2015 End: 01-13-2017 take 1 tablet by mouth once daily CELEXA 40 MG TABS One tablet by mouth daily CITALOPRAM HYDROBROMIDE [id number] Luis Fernando Salazar DO Start: 02-01-2015 End: 09-25-2015 take 40 mg by mouth once daily Citalopram Discontinued 40 MG PO DAILY January 31, 2015 11:00pm September 25, 2015 2:06pm dicyclomine hydrochloride 10 mg oral capsule (7 sources) Anticholinergic Start: 09-09-2022 End: 02-08-2023 take 20 mg by mouth every six hours as needed Dicyclomine Discontinued 20 MG PO EVERY 6 HOURS NEEDED September 09, 2022 5:45am February 08, 2023 2:00pm doxycycline monohydrate 100 mg oral capsule (7 sources) Tetracycline-class Drug Start: 08-31-2021 End: 02-08-2023 take 100 mg by mouth twice daily Doxycycline Monohydrate Discontinued 100 MG PO TWICE A DAY August 31, 2021 12:00am February 08, 2023 2:00pm DULoxetine 30 mg delayed release oral capsule (5 sources) Serotonin and Norepinephrine Reuptake Inhibitor Start: 09-29-2021 End: 02-18-2023 take 1 capsule by mouth once daily DULoxetine (CYMBALTA) 30 mg capsule Indications: Anxiety and depression Take 1 capsule by mouth once daily. 90 capsule 1 09/29/2021 02/18/2023 Discontinued Comment on above: Take 1 capsule by mo [facility] once daily. famotidine 20 mg oral tablet (3 sources) Histamine-2 Receptor Antagonist Start: 10-26-2020 End: 11-02-2020 Pepcid 20 mg oral tablet Dose : 20 mg = 1 tab(s), PO, Daily, # 7 tab(s), 0 Refill(s) Start Date: 10/26/20 Stop Date: 11/02/20 Status: Ordered Quantity: 7.0 Unit: tab(s) Repeat number: 1 30 actuat fluticasone furoate 0.2 mg/actuat / vilanterol 0.025 mg/actuat dry powder inhaler (7 sources) Corticosteroid, beta2-Adrenergic Agonist Start: 10-28-2020 End: 02-18-2023 fluticasone-vilan terol (BREO ELLIPTA) 200-25 mcg/dose inhaler Indications: Severe persistent asthma with acute exacerbation Inhale 1 Inhalation as instructed once daily. Inhale one puff once daily. DO NOT CLICK OPEN UNTIL READY FOR DOSE 90 Each 3 10/28/2020 02/18/2023 Discontinued Comment on above: Inhale 1 Inhalation as instructed once daily. Inhale one puff once daily. DO NOT CLICK OPEN UNTIL READY FOR DOSE MOMETASONE FURO-FORMOTEROL FUM (2 sources) Corticosteroid, beta2-Adrenergic Agonist Start: 01-13-2017 take 2 puff(s) by inhalation twice daily DULERA 200-5 MCG/ACT AERO 2 puffs INH Twice daily MOMETASONE FURO-FORMOTEROL FUM [id number] Luis Fernando Salazar DO gabapentin 300 mg oral capsule (14 sources) Anti-epileptic Agent Start: 09-29-2021 End: 02-18-2023 take 1 capsule by mouth once daily in the morning, then take 1 capsule by mouth once, then take 2 capsules by mouth at bedtime gabapentin (NEURONTIN) 300 mg capsule Indications: Chronic bilateral low back pain without sciatica take 1 capsule by mouth every morning 1 capsule every AFTERNOON, and 2 at bedtime 360 capsule 3 09/29/2021 02/18/2023 Discontinued Start: 03-21-2019 End: 02-08-2023 take 300 mg by mouth three times daily Gabapentin Discontinued 300 MG PO THREE TIMES A DAY March 20, 2019 11:00pm February 08, 2023 2:00pm Start: 09-10-2016 take 1 tablet by rob th three times daily GABAPENTIN 300 MG CAPS One tablet by mouth three times daily GABAPENTIN [id number] Doreen De Los Santos RN Comment on above: take 1 capsule by mo [facility] every morning 1 capsule every AFTERNOON, and 2 at bedtime GUAIFENESIN (20 sources) Start: 09-10-2016 take 1 tablet by mouth twice daily MUCINEX 600 MG [id number] One tablet by mouth twice daily GUAIFENESIN [id number] Luis Fernando Salazar DO Start: 10-24-2015 End: 01-13-2017 take 5 mL by mouth every six hours as needed ROBITUSSIN CHEST CONGESTION 100 MG/5ML ORAL SYRP 5 mL q6h as needed GUAIFENESIN [id number] Luis Fernando Salazar DO Start: 10-24-2015 End: 09-10-2016 take 1 tablet by mouth twice daily as needed MUCINEX 600 MG [id number] One tablet by mouth twice daily as needed GUAIFENESIN [id number] Doreen De Los Santos RN Start: 10-24-2015 take 5 mL by mouth e very six hours as needed ROBITUSSIN CHEST CONGESTION 100 MG/5ML ORAL SYRP 5 mL q6h as needed GUAIFENESIN [id number] Juhi Reyes Start: 10-24-2015 take 1 tablet by rob th twice daily as needed MUCINEX 600 MG [id number] One tablet by mouth twice daily as needed GUAIFENESIN [id number] Juhi Reyes Start: 10-20-2015 take 1 dose by mouth twice daily as needed for congestion Mucinex Dose : 600 mg =, Oral, BID, PRN Congestion Start Date: 10/20/15 Status: Ordered Repeat number: 1 Start: 09-23-2015 End: 10-09-2015 take 1 tablet by mouth twice daily Guaifenesin (Mucus Relief Er) 600 MG tablet Discontinued 600 MG PO TWICE A DAY September 23, 2015 12:00am October 09, 2015 3:20pm hydrOXYzine hydrochloride 25 mg oral tablet (13 sources) Antihistamine Start: 10-24-2015 End: 01-13-2017 take 1 tablet by mouth three times daily as needed Hydroxyzine (Atarax) 25 MG tablet Discontinued 25 MG PO 3 TIMES DAILY NEEDED December 21, 2015 11:00pm December 25, 2015 10:47am Start: 10-24-2015 take 1 tablet by rob twice daily as needed HYDROXYZINE HCL 25 MG TABS One tablet by mouth twice daily as needed HYDROXYZINE HCL [id number] Juhi Reyes levoFLOXacin 500 mg oral tablet (7 sources) Quinolone Antimicrobial Start: 10-12-2015 End: 10-19-2015 take 500 mg by mouth once daily Levofloxacin Discontinued 500 MG PO DAILY October 11, 2015 11:00pm October 19, 2015 10:33am lisinopril 40 mg oral tablet (20 sources) Angiotensin Converting Enzyme Inhibitor Start: 01-20-2016 End: 2016 take 40 mg by mouth once daily Lisinopril Discontinued 40 MG PO DAILY January 19, 2016 11:00pm 2016 2:46pm Start: 10-08-2015 End: 01-20-2016 lisinopril 20 mg oral tablet Dose : 20 mg = 1 tab(s), Oral, qDay, # 30 tab(s), 0 Refill(s) Start Date: 10/08/15 Status: Ordered Quantity: 30.0 Unit: tab(s) Repeat number: 1 Start: 02-01-2015 End: 10-12-2015 take 20 mg by mouth once daily Lisinopril Discontinued 20 MG PO DAILY January 31, 2015 11:00pm October 12, 2015 2:24pm LORazepam 0.5 mg oral tablet (4 sources) Benzodiazepine Start: 10-24-2015 End: 01-13-2017 take 1 tablet by mouth three times daily as needed ATIVAN 0.5 MG TABS One tablet by mouth three times daily as needed LORAZEPAM [id number] Juhi Reyes losartan potassium 25 mg oral tablet (5 sources) Angiotensin 2 Receptor Sangeeta Start: 10-08-2021 End: 02-18-2023 take 1 tablet by mouth once daily losartan (COZAAR) 25 mg tablet Indications: Essential hypertension, benign Take 1 tablet by mouth once daily. 30 tablet 5 10/08/2021 02/18/2023 Discontinued Comment on above: Take 1 tablet by rob th once daily. melatonin 3 mg oral tablet (2 sources) Start: 09-10-2016 take 1 tablet by mouth at bedtime MELATONIN 3 MG TABS One tablet by mouth at bedtime. MELATONIN [id number] Doreen De Los Santos RN metoprolol tartrate 25 mg oral tablet (4 sources) beta-Adrenergic Sangeeta Start: 10-24-2015 End: 01-13-2017 take 1 tablet by mouth twice daily METOPROLOL TARTRATE 25 MG TABS One tablet by mouth twice daily METOPROLOL TARTRATE [id number] Luis Fernando Salazar DO omeprazole 40 mg delayed release oral capsule (9 sources) Proton Pump Inhibitor Start: 10-24-2015 take 1 tablet by mouth once daily PRILOSEC 40 MG ORAL CPDR One tablet by mouth daily OMEPRAZOLE [id number] Juhi Reyes Start: 10-20-2015 End: 01-13-2017 PriLOSEC 40 mg oral delayed release capsule (NF) Dose : 40 mg = 1 cap(s), Oral, qDayAC Start Date: 10/20/15 Status: Ordered Repeat number: 1 ondansetron 4 mg disintegrating oral tablet (5 sources) Serotonin-3 Receptor Antagonist Start: 11-16-2022 End: 02-08-2023 take 4 mg by mouth every six hours Ondansetron Discontinued 4 MG PO EVERY 6 HOURS November 15, 2022 11:00pm February 08, 2023 2:00pm oxyCODONE hydrochloride 5 mg oral tablet (7 sources) Opioid Agonist Start: 03-23-2019 End: 03-31-2019 take 5 mg by mouth every twelve hours as needed Oxycodone Discontinued 5 MG PO EVERY 12 HOURS NEEDED 7 March 23, 2019 March 30, 2019 11:10pm rivaroxaban 15 mg oral tablet (4 sources) Factor Xa Inhibitor Start: 10-24-2015 End: 01-13-2017 take 1 tablet by mouth twice daily XARELTO 15 MG TABS One tablet by mouth twice daily RIVAROXABAN [id number] Luis Fernando Salazar DO sertraline 100 mg oral tablet (11 sources) Serotonin Reuptake Inhibitor Start: 10-24-2015 End: 01-13-2017 take 1 tablet by mouth once daily ZOLOFT 100 MG TABS One tablet by mouth daily SERTRALINE HCL [id number] Luis Fernando Salazar DO Start: 09-23-2015 End: 09-25-2015 take 50 mg by mouth once daily Sertraline Discontinued 50 MG PO DAILY September 23, 2015 12:00am September 25, 2015 2:07pm Problems Active Problems Problem Classification Problem Date Documented Da te Episodic/Chronic Alcohol-related disorders (20 sources) Nondependent alcohol abuse in remission; Translations: [Alcohol abuse, in remission] Onset: 11-30-2014 Resolved: 03-26-2016 10-30-2015 Chronic Anxiety disorders (20 sources) Anxiety; Translations: [Mixed anxiety and depressive disorder] Onset: 11-07-2015 01-13-2017 Chronic Asthma (20 sources) Asthma; Translations: [Unspecified asthma, uncomplicated] 05-17-2018 Chronic Chronic obstructive pulmonary disease and bronchiectasis (20 sources) Chronic obstructive lung disease; Translations: [Chronic bronchitis] Onset: 08-03-2012 09-10-2016 Chronic Deficiency and other anemia (7 sources) Iron deficiency anemia; Translations: [Iron deficiency anemia, unspecified] 05-19-2018 Episodic Diseases of white blood cells (20 sources) Leukocytosis; Translations: [Elevated white blood cell count, unspecified] Onset: 10-16-2017 10-16-2017 Chronic Disorders of lipid metabolism (20 sources) Hyperlipidemia; Translations: [Hyperlipidemia, unspecified] Onset: 11-30-2014 09-10-2016 Chronic Disorders of teeth and jaw (7 sources) Dental abscess; Translations: [Periapical abscess without sinus] 09-09-2022 Episodic E Codes: Fall (5 sources) Accidental fall ; Translations: [Unspecified fall, initial encounter] 10-20-2022 Episodic Esophageal disorders (20 sources) Gastro-esophageal reflux disease with esophagitis; Translations: [Reflux esophagitis] Onset: 09-19-2012 09-19-2012 Chronic Esophageal disorders (2 sources) Esophagitis; Translations: [Esophagitis] 06-05-2023 Episodic Essential hypertension (20 sources) Hypertensive disorder; Translations: [Benign essential hypertension] Onset: 05-17-2006 09-10-2016 Chronic Fracture of lower limb (6 sources) Closed fracture of calcaneus; Translations: [Unspecified fracture of right calcaneus, initial encounter for closed fracture] 10-12-2022 Episodic Nonspecific chest pain (5 sources) Chest pain; Translations: [Chest pain, unspecified] 11-16-2022 Episodic Other aftercare (2 sources) Post-discharge follow-up; Translations: [Encounter for follow-up examination after completed treatment for conditions other than malignant neoplasm] 02-18-2023 Episodic Other connective tissue disease (7 sources) Pain in toe; Translations: [Pain in unspecified toe(s)] 11-24-2020 Episodic Other gastrointestinal disorders (7 sources) Swallowing painful; Translations: [Dysphagia, unspecified] 11-24-2020 Episodic Other gastrointestinal disorders (5 sources) History of esophagitis; Translations: [Personal history of other diseases of the digestive system] 11-16-2022 Episodic Other gastrointestinal disorders (6 sources) Dysphagia; Translations: [Dysphagia, unspecified] 12-30-2022 Episodic Other gastrointestinal disorders (1 source) Dysphagia, unspecified; Translations: [Dysphagia, unspecified] Onset: 07-25-2024 Episodic Other lower respiratory disease (7 sources) Dyspnea; Translations: [Shortness of breath] 05-19-2018 Episodic Other lower respiratory disease (1 source) Hypoxemia; Translations: [Hypoxia] Onset: 04-29-2023 Episodic Other lower respiratory disease (1 source) Cough; Translations: [Acute cough] 11-13-2022 Episodic Other nervous system disorders (20 sources) Chronic pain; Translations: [Other chronic pain] Onset: 11-07-2015 11-07-2015 Chronic Other nutritional; endocrine; and metabolic disorders (2 sources) Obesity; Translations: [Obesity, unspecified] Onset: 01-13-2017 01-13-2017 Chronic Other nutritional; endocrine; and metabolic disorders (20 sources) Obese class I; Translations: [Obesity, unspecified] Onset: 09-29-2021 09-29-2021 Chronic Other nutritional; endocrine; and metabolic disorders (7 sources) Body mass index 30+ - obesity; Translations: [Body mass index (BMI) of 30.0 to 39.9] 05-19-2018 Chronic Other screening for suspected conditions (not mental disorders or infectious disease) (4 sources) Patient encounter status; Translations: [Encounter for screening mammogram for malignant neoplasm of breast] Onset: 07-17-2024 Episodic Other skin disorders (7 sources) Axillary hidradenitis suppurativa; Translations: [Hidradenitis suppurativa] 02-28-2021 Episodic Other upper respiratory infections (3 sources) Sore throat symptom; Translations: [Acute pharyngitis, unspecified] 07-24-2024 Episodic Phlebitis; thrombophlebitis and thromboembolism (3 sources) Deep venous thrombosis 10-20-2015 Episodic Pneumonia (except that caused by tuberculosis or sexually transmitted disease) (2 sources) Pneumonia, unspecified organism; Translations: [Bacterial pneumonia] Onset: 04-29-2023 07-24-2024 Episodic Pulmonary heart disease (7 sources) Pulmonary hypertension; Translations: [Pulmonary hypertension, unspecified] 05-19-2018 Chronic Residual codes; unclassified (7 sources) History of alcohol abuse; Translations: [Personal history of other specified conditions] 05-19-2018 Episodic Screening and history of mental health and substance abuse codes (14 sources) H/O: psychiatric disorder; Translations: [Personal history of other mental and behavioral disorders] 05-19-2018 Episodic Screening or history of mental health and substance abuse (2 sources) Tobacco dependence syndrome; Translations: [Nicotine dependence, unspecified, uncomplicated] Onset: 01-13-2017 01-13-2017 Chronic Septicemia (except in labor) (14 sources) Sepsis due to urinary tract infection; Translations: [Sepsis, unspecified organism] 06-04-2019 Episodic Spondylosis; intervertebral disc disorders; other back problems (20 sources) Cervical arthritis; Translations: [Spondylosis without myelopathy or radiculopathy, cervical region] Onset: 08-31-2012 05-17-2018 Chronic Substance-related disorders (20 sources) Tobacco user; Translations: [Nicotine dependence, unspecified, uncomplicated] Onset: 01-29-2015 01-29-2015 Chronic Substance-related disorders (7 sources) Marijuana user; Translations: [Cannabis use, unspecified, uncomplicated] 05-19-2018 Episodic Syncope (1 source) Syncope and collapse; Translations: [Syncope and collapse] Onset: 07-25-2024 Episodic Urinary tract infections (20 sources) Acute pyelonephritis; Translations: [Acute pyelonephritis] 03-21-2019 Episodic Past or Other Problems Problem Classification Problem Date Documented Da te Episodic/Chronic Abdominal pain (20 sources) Abdominal pain - cause unknown; Translations: [Unspecified abdominal pain] Onset: 05-22-2024 09-09-2022 Episodic Acute cerebrovascular disease (20 sources) Cerebrovascular accident; Translations: [Cerebral infarction, unspecified] Onset: 07-03-2015 Resolved: 07-25-2020 09-10-2016 Chronic Allergic reactions (20 sources) Eczema; Translations: [Dermatitis, unspecified] Onset: 12-31-2011 Resolved: 09-03-2014 02-28-2021 Episodic Calculus of urinary tract (20 sources) Kidney stone; Translations: [Calculus of kidney] Onset: 09-16-2016 09-16-2016 Episodic Deficiency and other anemia (13 sources) Anemia due to blood loss; Translations: [Iron deficiency anemia secondary to blood loss (chronic)] Onset: 03-02-2016 Resolved: 03-03-2017 03-03-2017 Chronic Epilepsy; convulsions (13 sources) Seizure disorder; Translations: [Epilepsy, unspecified, not intractable, without status epilepticus] Onset: 06-05-2016 Resolved: 10-12-2017 10-12-2017 Chronic Gastrointestinal hemorrhage (13 sources) Rectal hemorrhage; Translations: [Hemorrhage of anus and rectum] Onset: 03-02-2016 Resolved: 03-03-2017 03-03-2017 Episodic Genitourinary symptoms and ill-defined conditions (20 sources) Microscopic hematuria; Translations: [Other microscopic hematuria] Onset: 08-25-2012 08-25-2012 Episodic Mood disorders (20 sources) Depressive disorder; Translations: [Depression] Onset: 12-31-2011 Resolved: 07-25-2020 01-13-2017 Chronic Neoplasms of unspecified nature or uncertain behavior (20 sources) Thrombocytosis; Translations: [Thrombocythemia] Onset: 12-10-2015 Resolved: 07-25-2020 05-19-2018 Episodic Noninfectious gastroenteritis (20 sources) Idiopathic colitis; Translations: [Noninfective gastroenteritis and colitis, unspecified] Onset: 03-02-2016 03-02-2016 Episodic Other aftercare (13 sources) Prescribed medication regimen behavior finding; Translations: [jail (current) use of opiate analgesic] Onset: 02-13-2016 Resolved: 10-12-2017 10-12-2017 Episodic Other circulatory disease (20 sources) History of cerebrovascular accident; Translations: [Personal history of transient ischemic attack (TIA), and cerebral infarction without residual deficits] Onset: 12-31-2011 07-25-2020 Episodic Other connective tissue disease (13 sources) Lateral epicondylitis; Translations: [Lateral epicondylitis, unspecified elbow] Onset: 03-09-2006 Resolved: 09-03-2014 09-03-2014 Episodic Other connective tissue disease (13 sources) Bilateral rotator cuff syndrome; Translations: [Unspecified rotator cuff tear or rupture of right shoulder, not specified as traumatic] Onset: 06-05-2016 Resolved: 10-12-2017 10-12-2017 Episodic Other endocrine disorders (13 sources) Hypercortisolism; 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, unspecified] Onset: 02-06-2016 Resolved: 10-12-2017 10-12-2017 Chronic Other hematologic conditions (20 sources) ESR raised; Translations: [Elevated erythrocyte sedimentation rate] Onset: 10-16-2017 10-16-2017 Episodic Other lower respiratory disease (2 sources) Dyspnea on exertion; Translations: [Other forms of dyspnea] Onset: 01-13-2017 01-13-2017 Episodic Other nervous system disorders (13 sources) Plantar nerve lesion; Translations: [Lesion of plantar nerve, unspecified lower limb] Onset: 03-09-2006 Resolved: 09-03-2014 09-03-2014 Chronic Other non-traumatic joint disorders (2 sources) Pain in right shoulder; Translations: [Pain in left shoulder] Onset: 04-02-2017 Episodic Other nutritional; endocrine; and metabolic disorders (13 sources) Morbid obesity; Translations: [Morbid (severe) obesity due to excess calories] Onset: 10-30-2015 Resolved: 07-25-2020 07-25-2020 Chronic Pulmonary heart disease (20 sources) Pulmonary embolism; Translations: [Other pulmonary embolism without acute cor pulmonale] Onset: 11-07-2015 Resolved: 03-03-2017 03-22-2019 Episodic Respiratory failure; insufficiency; arrest (adult) (18 sources) Acute respiratory failure; Translations: [Acute respiratory failure with hypoxia] Onset: 04-29-2023 Resolved: 07-24-2024 04-29-2023 Episodic Spondylosis; intervertebral disc disorders; other back problems (20 sources) Low back pain; Translations: [Bilateral low back pain without sciatica] Onset: 03-14-2007 Resolved: 09-03-2014 07-16-2015 Episodic Sprains and strains (20 sources) Lumbosacral strain; Translations: [Strain of muscle, fascia and tendon of lower back, initial encounter] Onset: 10-29-2005 Resolved: 09-03-2014 03-06-2014 Episodic Unclassified (1 source) Patient encounter status 09-26-2024 Results Test Name Value Interpretation Reference Range Facility [facility] 10-23-2024 [facility] Letter Text Normal [facility] SAVANNAH IRVIN ([id number]) 1965 F Date Time Provider Department 08/24/24 DAMON DOYLE [facility] During your visit today, we recorded the following information about you: Damon Doyle PA 08/24/2024 7:04 AM Signed Please let patient know she is negative for COVID flu and RSV. Lindsay Muse MA 08/24/2024 7:34 AM Signed Listed contact number for patient is not currently accepting calls, please try again later. JESSIE Rubalcava M Robin, RN 08/24/2024 11:34 AM Signed Pt returned call and given provider's message below with verbalized understanding. Reviewed home care instructions with patient. Allergies As of Date: 08/24/2024 Noted Allergy Reaction ARGAN NUT 04/29/2023 10 - Anaphylaxis BRAZIL NUT 04/29/2023 10 - Anaphylaxis CASHEW NUT 04/29/2023 10 - Anaphylaxis HAZELNUT 04/29/2023 10 - Anaphylaxis MACADAMIA NUT OIL 04/29/2023 10 - Anaphylaxis PEANUTS 04/29/2023 10 - Anaphylaxis PECAN NUT 04/29/2023 10 - Anaphylaxis PINE NUT 04/29/2023 10 - Anaphylaxis PISTACHIO NUT 04/29/2023 10 - Anaphylaxis TREE NUT 04/29/2023 10 - Anaphylaxis Date Reviewed: 08/23/2024 Reviewed by: Yasmine Edward MA - Fully Assessed Reason for Visit: Results [95] Prescriptions as of 08/24/2024 - predniSONE (DELTASONE) 20 mg tablet Take 2 tablets by mouth once daily for 5 days. - nirmatrelvir tablet 300 mg (150 mg x 2) and ritonavir tablet 100 mg in a dose pack (PAXLOVID) Administer TWO pink nirmatrelvir 150 mg tablets and ONE white ritonavir 100 mg tablet for a total of three tablets twice daily. - sucralfate (CARAFATE) 1 gram tablet .TID AC - pantoprazole DR (PROTONIX) 40 mg tablet Take 1 tablet by mouth two times a day. Take on empty stomach, 1/2 hr before meal. - albuterol HFA (PROVENTIL HFA, VENTOLIN HFA) 90 mcg/actuation inhaler inhale 2 puffs by mouth and INTO THE LUNGS every 4 hours if needed for wheezing or shortness of breath - ipratropium-albuterol (DUONEB) 0.5 mg-3 mg(2.5 mg base)/3 mL nebu Inhale 3 mL as instructed every 6 hours as needed (wheezing). Use over 5-15minutes per nebulizer. - EPINEPHrine (EPIPEN) 0.3 mg/0.3 mL auto-injector Use as directed for allergic reaction - Nebulizer Accessories misc 1 Each twice daily. New mask for nebulizer - Ibuprofen 200 mg cap Take by mouth as directed. - Nebulizer 1 Device four times daily as needed. NEBULIZER FOR HOME USE. DX: pneumonia; asthma J 45.909 J 15.9 - Nebulizer Accessories kit 1 Each four times daily as needed. - Blood Pressure Cuff - Home Use BLOOD PRESSURE CUFF FOR HOME USE. DX: LABILE BLOOD PRESSURE - COMPOUNDED PRESCRIPTION 1 Device once daily. NEBULIZER FOR HOME USE. DX: asthma, mild intermittent J45.20 - + Nebulizer Supplies Nebulizer, Mask, AND O2 Tubing. Use as directed. Problem List As Of Date 08/24/2024 Noted Resolved Asthma [J45.909] Sprain of neck [S13.9XXA] 10/29/2005 09/03/2014 Lateral epicondylitis of elbow [M77.10] 03/09/2006 09/03/2014 Lesion of plantar nerve [G57.60] 03/09/2006 09/03/2014 BENIGN HYPERTENSION [I10] 05/17/2006 Cervicalgia [M54.2] 03/14/2007 09/03/2014 History of cerebral infarction [Z86.73] 12/31/2011 Depression [F32.A] 12/31/2011 07/25/2020 Anaphylactic reaction [T78.2XXA] 12/31/2011 09/03/2014 Chronic bronchitis (HCC) [J42] 08/03/2012 Microscopic hematuria [R31.29] 08/25/2012 Proteinuria [R80.9] 08/25/2012 Cervical spine arthritis [M47.812] 08/31/2012 Reflux esophagitis [K21.00] 09/19/2012 Alcohol abuse [F10.10] 11/30/2014 10/29/2015 Hyperlipidemia [E78.5] 11/30/2014 Alcoholism (HCC) [F10.20] 01/16/2015 03/26/2016 Tobacco use disorder [F17.200] 01/29/2015 Right-sided lacunar infarction (HCC) [I63.81] 07/03/2015 07/25/2020 Bilateral low back pain without sciatica [M54.5*07/16/2015 Morbid obesity due to excess calories (HCC) [E6*10/30/2015 07/25/2020 Alcohol abuse, in remission [F10.11] 10/30/2015 Pulmonary embolus (HCC) [I26.99] 11/07/2015 03/03/2017 Anxiety and depression [F41.9, F32.A] 11/07/2015 Chronic pain [G89.29] 11/07/2015 Thrombocytosis (HCC) [D75.839] 12/10/2015 07/25/2020 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] 02/06/2016 10/12/2017 Chronic prescription opiate use [Z79.891] 02/13/2016 10/12/2017 Anemia due to GI blood loss [D50.0] 03/02/2016 03/03/2017 Rectal bleeding [K62.5] 03/02/2016 03/03/2017 Idiopathic colitis [K52.9] 03/02/2016 Seizure disorder (HCC) [G40.909] 06/05/2016 10/12/2017 Rotator cuff syndrome of both shoulders [M75.10*06/05/2016 10/12/2017 Renal stone [N20.0] 09/16/2016 Leukocytosis [D72.829] 10/16/2017 Elevated sedimentation rate [R70.0] 10/16/2017 Obesity, Class I, BMI 30-34.9 [E66.811] 09/29/2021 Acute respiratory failure with hypoxia (HCC) [J*04/29/2023 07/24/2024 Encounter Status:Closed by Sergei YOUSSEF on 08/24/24 [facility] CNOVon 08-23-2024 CNOV Office Visit (UCWSTR ) SAVANNAH IRVIN ([id number]) 1965 F Date Time Provider Department 08/23/24 4:15 PM MARCY ANTHONY WSTR During your visit today, we recorded the following information about you: Temperature Pulse Respiration Blood pressure 98.6 degrees 95/minute 20/minute 182/102 Weight 76.8 kg Marcy Anthony APRN.CLUTCH SPECIALIST 08/23/2024 5:25 PM Addendum Subjective The history is provided by the patient. No historic interpreter was used. HPI Savannah Irvin is a 59 year old female who presents today for CC of sore throat, nasal congestion and swollen glands for 2 days. She was exposed to covid. She has used theraflu and tylenol. BP 182/102 Pulse 95 Temp 37 ?C (98.6 ?F) Resp 20 Wt 76.8 kg (169 lb 5 oz) LMP 02/16/2010 SpO2 96% BMI 28.18 kg/m? Social History Tobacco Use Smoking status: Some Days Types: Cigarettes Start date: 12/27/1984 Smokeless tobacco: Never Tobacco comments: 2-3 cigarettes daily, 11/29/2015. Substance Use Topics Alcohol use: Yes Alcohol/week: 6.0 - 8.0 standard drinks of alcohol Types: 6 - 8 Cans of Beer (12oz) per week Comment: Quit drinking ETOH, which was getting to be a problem. Drug use: Yes Comment: No recent marijuana use PAST MEDICAL HISTORY Diagnosis Date Alcohol abuse 11/30/2014 Anaphylactic reaction 12/31/2011 Nuts Cervical spine arthritis 08/31/2012 CVA (cerebral infarction) 12/31/2011 CVA (cerebral infarction) 2012 Degenerative lumbar spinal stenosis 08/31/2012 Depression 12/31/2011 Depression 01/15/2015 [facility] Dysthymic disorder Depression (non-psychotic) Hyperlipidemia 12/31/2011 Hypertension Irregular menstrual cycle Irregular periods Low back pain 09/01/2012 Microscopic hematuria 08/25/2012 Morbid obesity due to excess calories (HCC) 10/30/2015 PMH - PAST MEDICAL HISTORY OF neck problems Proteinuria 08/25/2012 Pulmonary embolus (HCC) 11/07/2015 Reflux esophagitis 09/19/2012 Renal stone 09/16/2016 Right-sided lacunar infarction (HCC) 07/03/201506/2015: right middle frontal gyrus anteriorly Tobacco abuse 09/19/2012 Unspecified asthma(493.90) I have confirmed and edited as necessary, the [facility] Review of Systems Constitutional: Negative for chills and fever. HENT: Positive for congestion and sore throat. Negative for ear pain and sinus pain. Swollen glands Respiratory: Negative for cough, sputum production, shortness of breath and wheezing. Cardiovascular: Negative for chest pain. Musculoskeletal: Negative for myalgias. Neurological: Negative for headaches. Objective Physical Exam Vitals and nursing note reviewed. HENT: Head: Normocephalic and atraumatic. Right Ear: Ear canal and external ear normal. A middle ear effusion is present. Left Ear: Ear canal and external ear normal. A middle ear effusion is present. Nose: Rhinorrhea present. No mucosal edema or congestion. Right Sinus: No maxillary sinus tenderness or frontal sinus tenderness. Left Sinus: No maxillary sinus tenderness or frontal sinus tenderness. Mouth/Throat: Pharynx: Uvula midline. Pharyngeal swelling (mild), oropharyngeal exudate (white), posterior oropharyngeal erythema and postnasal drip present. No uvula swelling. Tonsils: 2+ on the right. 2+ on the left. Cardiovascular: Rate and Rhythm: Normal rate and regular rhythm. Heart sounds: Normal heart sounds. Pulmonary: Effort: Pulmonary effort is normal. Breath sounds: Normal breath sounds. Lymphadenopathy: Head: Right side of head: No submental, submandibular or tonsillar adenopathy. Left side of head: No submental, submandibular or tonsillar adenopathy. Cervical: No cervical adenopathy. Skin: General: Skin is warm and dry. Neurological: Mental Status: She is alert. Psychiatric: Mood and Affect: Affect normal. ASSESSMENT/PLAN: 1. Sore throat - ICD9: 462, ICD10: J02.9 (primary diagnosis) - suspect viral - Group A strep molecular testing negative - Discussed supportive care treatment with fluids, rest and analgesia. - The patient may also use warm salt water gargles, throat lozenges and/or OTC throat spray as needed. - The patient should follow up in one week if symptoms persist or worsen - Call back if drooling, increased temperature, symptoms of dehydration and/or still sick in one week - STREP A MOLECULAR (POC) - COVID AND INFLUENZA A/B AND RSV PCR, ROUTINE 2. URI, acute - ICD9: 465.9, ICD10: J06.9 - Discussed viral etiology and rationale for treatment. - Symptomatic treatment with prn analgesia - Supportive care with fluids and rest - due to exposure to covid no contraindications for paxlovid - printed RX given to patient will start tomorrow if negative. - COVID AND INFLUENZA A/B AND RSV PCR, ROUTINE Diagnosis and treatment plan were discussed and questions were answered to the patient's satisfaction. Pt acknowledged understanding of (more content not included)... Normal [facility] COVID AND INFLUENZA A/B AND RSV PCR, ROUTINEon 08-23-2024 SARS-CoV-2 (COVID-19) RNA SONG+probe Ql (Unsp spec) SARS-COV-2 (AGENT OF COVID-19) RNA: Not detected INFLUENZA A RNA: Not detected INFLUENZA B RNA: Not detected RESPIRATORY SYNCYTIAL VIRUS (RSV) RNA: Not detected Normal [facility] Comment on above: Performed By: #### C VFLRS ####[facility] LABCLIA [id number] [place] [address] [place] STREP A MOLECULAR (POC)on Procedural Control [facility] Strep A (POCT) Negative Negative [facility] CNOVon 07-24-2024 CNOV Office Visit (FAMPWS ) SAVANNAH IRVIN ([id number]) 1965 F Date Time Provider Department 07/24/24 2:00 PM IVETTE WELSH FAMPWS During your visit today, we recorded the following information about you: Pulse Respiration Blood pressure Weight 110/minute 20/minute 138/88 72.3 kg Ivette Welsh MD 07/24/2024 2:52 PM Signed Transitional Care Management TCM Eligibility Documentation The following information was gathered during patient outreach 07/18/2024 Date of Outreach: Outreach Attempt 1: Contact Made Date of Discharge 07/17/2024 Provider Documentation Savannah Irvin is a 59 year old female here today for a follow up from recent hospitalization. I have reviewed the patient's hospital course including discharge summary, discharge medications , and follow up needs with the patient and any family members present at today's visit. HPI 7 Day TCM Pt went to [facility] ER on 07/15/24 for dizziness, tired, weak, fatigue, slight cough; admitted. She was dx with dysphagia and developing pneumonia. Dysphagia has been a chronic issue. She was d/c home 07/17/24 with Prednisone 40 mg daily x 5 days, Mucinex DM BID x 7 days, Nicotine 14 mg patches once daily x 30 days, Carafate TID, and Levofloxacin 500 mg daily x 5 days. Antibiotic completed. Feeling better, the swallowing has been much better. Just the throat is still sore since 07/17/24 when she had the EGD with balloon dilatation, right side throat feels swollen. She had the balloon expanding dilation done and is supposed to follow up in a month to have a stent placed with Amber Mujica. She is not longer bring up food, she states it is going down and staying down. Has dealt with that for years but never had any dilation done before. She is using her inhalers and nebulizer more. She feels her breathing is doing better. Sent home with Oxygen, wears it as needed. Checking her Pulse Ox at home with readings around 92% before oxygen use. She isn't wearing the oxygen at night while sleeping. Still smoking but the patch was going to cost her 90 dollars and she stated she couldn't afford that so never used the Patches. Is looking into hypnosis; she is motivated to quit smoking now. Below copied from [email or web address]: Chief Complaint: Dizziness Informant: patient Narrative Narrative: Patient is a 59-year-old female with history of COPD, tobacco use, pulmonary hypertension, hypertension, hyperlipidemia and kidney stones presenting with generalized malaise, dizziness, nausea, cough, shortness of breath and back pain. Patient states that she has not been feeling good all day is been more fatigued. She tried to go downstairs for the got dizzy feeling she was going to pass out. She did she has had some increased back pain for the past week with the right worse than the left. She states is her kidneys at her. She also for the past 1 is an intermittent sharp pains in her left lower quadrant. She denies any urinary symptoms such as dysuria or hematuria. She denies any change in her bowel movements but notes it has been a couple days since she had a bowel movement. She has been passing gas. She denies any chest pain or tightness but does feel more short of breath and feels like she is been wheezing more. She is been coughing and nothing comes up but she feels like there is mucus that needs to come out. She denies any URI symptoms. She notes her daughter was sick over [place] and she was around her. She does report a mild headache. No fevers reported. Does not take anything for symptoms prior to arrival. Does take a daily inhaler but no other medications. No other complaints or concerns reported at this time. Medical decision making narrative: Patient evaluated for near syncope today with worsening shortness of breath and cough as well as increased back pain for the past week. Differential includes influenza, kidney stone, pyelonephritis, pulmonary emboli, pneumonia, viral syndrome, COPD exacerbation, ACS, colitis and urinary tract infection. Patient is given DuoNeb treatment in the ER. She has some mild improvement. She is given initially Toradol for her pain and IV fluids. On repeat evaluation she continues to have pain and is given 1 dose of morphine in the emergency room. Initial chest x-ray viewed by myself does not show any acute process. Radiology interpreted the COPD/emphysematous changes with interstitial lung disease. Given her continued pain decision made to obtain a CT of the abdomen pelvis will also perform a CTA of the chest with PE study for further evaluation of her respiratory complaints. Lab work shows a mild leukocytosis of 11.4 but otherwise largely normal CBC. High since he troponin normal. Patient has mild hyponatremia sodium 134 and hypokalemia potassium of 3.2. Magnesium however is normal. Remainder of CMP largely normal. CK le (more content not included)... Normal [facility] Hakeem 07-21-2024 CNPN Telephone (Viamericas) SAVANNAH IRVIN ([id number]) 1965 F Date Time Provider Department 07/21/24 IVETTE WELSH [facility] During your visit today, we recorded the following information about you: Rowan Amado RN 07/21/2024 10:25 AM Signed Patient calls and is upset because the inhalers were not ordered on 07/18 like she asked. Advised patient that it looks like Dr. Welsh had sent in orders to [facility]. Called and spoke with Pharmacist at [facility]. Patient has prescription ready under a Savannah Irvin. Called and advised patient that prescription is ready under that name. Patient voices understanding. Rowan Amado RN Allergies As of Date: 07/21/2024 Noted Allergy Reaction all nuts [Other] 10/29/2005 10 - Anaphylaxis ARGAN NUT 04/29/2023 10 - Anaphylaxis BRAZIL NUT 04/29/2023 10 - Anaphylaxis CASHEW NUT 04/29/2023 10 - Anaphylaxis HAZELNUT 04/29/2023 10 - Anaphylaxis MACADAMIA NUT OIL 04/29/2023 10 - Anaphylaxis PEANUTS 04/29/2023 10 - Anaphylaxis PECAN NUT 04/29/2023 10 - Anaphylaxis PINE NUT 04/29/2023 10 - Anaphylaxis PISTACHIO NUT 04/29/2023 10 - Anaphylaxis TREE NUT 04/29/2023 10 - Anaphylaxis Date Reviewed: 05/01/2023 Reviewed by: Tara Carr RN - Fully Assessed Prescriptions as of 07/21/2024 - albuterol HFA (PROVENTIL HFA, VENTOLIN HFA) 90 mcg/actuation inhaler inhale 2 puffs by mouth and INTO THE LUNGS every 4 hours if needed for wheezing or shortness of breath - ipratropium-albuterol (DUONEB) 0.5 mg-3 mg(2.5 mg base)/3 mL nebu Inhale 3 mL as instructed every 6 hours as needed (wheezing). Use over 5-15minutes per nebulizer. - EPINEPHrine (EPIPEN) 0.3 mg/0.3 mL auto-injector Use as directed for allergic reaction - pantoprazole DR (PROTONIX) 40 mg tablet Take 1 tablet by mouth daily before breakfast. Take on empty stomach, 1/2 hr before meal. - Nebulizer Accessories misc 1 Each twice daily. New mask for nebulizer - Ibuprofen 200 mg cap Take by mouth as directed. - Nebulizer 1 Device four times daily as needed. NEBULIZER FOR HOME USE. DX: pneumonia; asthma J 45.909 J 15.9 - Nebulizer Accessories kit 1 Each four times daily as needed. - Blood Pressure Cuff - Home Use BLOOD PRESSURE CUFF FOR HOME USE. DX: LABILE BLOOD PRESSURE - COMPOUNDED PRESCRIPTION 1 Device once daily. NEBULIZER FOR HOME USE. DX: asthma, mild intermittent J45.20 - + Nebulizer Supplies Nebulizer, Mask, AND O2 Tubing. Use as directed. Problem List As Of Date 07/21/2024 Noted Resolved Asthma [J45.909] Sprain of neck [S13.9XXA] 10/29/2005 09/03/2014 Lateral epicondylitis of elbow [M77.10] 03/09/2006 09/03/2014 Lesion of plantar nerve [G57.60] 03/09/2006 09/03/2014 BENIGN HYPERTENSION [I10] 05/17/2006 Cervicalgia [M54.2] 03/14/2007 09/03/2014 History of cerebral infarction [Z86.73] 12/31/2011 Depression [F32.A] 12/31/2011 07/25/2020 Anaphylactic reaction [T78.2XXA] 12/31/2011 09/03/2014 Chronic bronchitis (HCC) [J42] 08/03/2012 Microscopic hematuria [R31.29] 08/25/2012 Proteinuria [R80.9] 08/25/2012 Cervical spine arthritis [M47.812] 08/31/2012 Reflux esophagitis [K21.00] 09/19/2012 Alcohol abuse [F10.10] 11/30/2014 10/29/2015 Hyperlipidemia [E78.5] 11/30/2014 Alcoholism (HCC) [F10.20] 01/16/2015 03/26/2016 Tobacco use disorder [F17.200] 01/29/2015 Right-sided lacunar infarction (HCC) [I63.81] 07/03/2015 07/25/2020 Bilateral low back pain without sciatica [M54.5*07/16/2015 Morbid obesity due to excess calories (HCC) [E6*10/30/2015 07/25/2020 Alcohol abuse, in remission [F10.11] 10/30/2015 Pulmonary embolus (HCC) [I26.99] 11/07/2015 03/03/2017 Anxiety and depression [F41.9, F32.A] 11/07/2015 Chronic pain [G89.29] 11/07/2015 Thrombocytosis (HCC) [D75.839] 12/10/2015 07/25/2020 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 10/12/2017 Chronic prescription opiate use [Z79.891] 02/13/2016 10/12/2017 Anemia due to GI blood loss [D50.0] 03/02/2016 03/03/2017 Rectal bleeding [K62.5] 03/02/2016 03/03/2017 Idiopathic colitis [K52.9] 03/02/2016 Seizure disorder (HCC) [G40.909] 06/05/2016 10/12/2017 Rotator cuff syndrome of both shoulders [M75.10*06/05/2016 10/12/2017 Renal stone [N20.0] 09/16/2016 Leukocytosis [D72.829] 10/16/2017 Elevated sedimentation rate [R70.0] 10/16/2017 Obesity, Class I, BMI 30-34.9 [E66.811] 09/29/2021 Acute respiratory failure with hypoxia (HCC) [J*04/29/2023 Encounter Status:Closed by ROWAN AMADO on 07/21/24 Normal [facility] Basic Metabolic Profile (BMP )on 07-17-2024 BUN/CRE 11.0 RATIO Normal 10-20 [facility] Comment on above: Performed By: #### L 501.5200, L500.2500, L501.2300 #### [facility] [address] [place], [address] CA,Total 9.2 mg/dL Normal 8.5-10.1 [facility] Comment on above: Performed By: #### L 501.5200, L500.2500, L501.2300 #### [facility] [address] [place], [address] Chloride [Moles/Vol] 105 mmol/L Normal 98-107 [facility] Comment on above: Performed By: #### L 501.5200, L500.2500, L501.2300 #### [facility] [address] [place], [address] CO2 [Moles/Vol] 26.0 mmol/L Normal 21.0-32.0 [facility] Comment on above: Performed By: #### L 501.5200, L500.2500, L501.2300 #### [facility] [address] [place], [address] Creatinine [Mass/Vol] 0.82 mg/dL Normal 0.55-1.02 [facility] Comment on above: Result Comment: The validity of the calculated GFR GFRAA in patients over 70 years has not been determined. Clinical correlation is essential. Performed By: #### L 501.5200, L500.2500, L501.2300 #### [facility] [address] [place], [address] ECRCL 75.44 ml/min Normal [facility] Comment on above: Performed By: #### L 501.5200, L500.2500, L501.2300 #### [facility] [address] [place], [address] EST GFR - AA 93 mL/min Normal >60 [facility] Comment on above: Result Comment: Afri can [place] GFR Calc Performed By: #### L 501.5200, L500.2500, L501.2300 #### [facility] [address] [place], [address] GAP 7 Normal 5-15 [facility] Comment on above: Performed By: #### L 501.5200, L500.2500, L501.2300 #### [facility] [address] [place], [address] GFR/1.73 sq M.predicted among non-blacks MDRD (S/P/Bld) [Vol rate/Area] 77 mL/min/{1.73_m2} Normal >60 [facility] Comment on above: Result Comment: Non- GFR Calc Performed By: #### L 501.5200, L500.2500, L501.2300 #### [facility] [address] [place], [address] Glucose [Mass/Vol] 238 mg/dL High 74-106 [facility] Comment on above: Result Comment: Gluc ose result greater than or equal to 200 mg/dL suggests DIABETES MELLITUS per A.D.A. criteria. Performed By: #### L 501.5200, L500.2500, L501.2300 #### [facility] [address] [place], [address] Potassium [Moles/Vol] 3.6 mmol/L Normal 3.5-5.1 [facility] Comment on above: Performed By: #### L 501.5200, L500.2500, L501.2300 #### [facility] [address] [place], [address] Sodium [Moles/Vol] 138 mmol/L Normal 136-145 [facility] Comment on above: Performed By: #### L 501.5200, L500.2500, L501.2300 #### [facility] [address] [place], [address] Urea nitrogen [Mass/Vol] 9 mg/dL Normal 7-18 [facility] Comment on above: Performed By: #### L 501.5200, L500.2500, L501.2300 #### [facility] [address] [place], [address] CBC W/Diff, Automatedon 12-3 PATH REV Reviewed Normal [facility] Comment on above: Result Comment: Leuk ocytosis. Clinical correlation necessary. Dakota Lyle M.D. 07/17/24 AMENDED REPORT 07/17/24 1531 PATH REV previously reported as: May foll Performed By: #### L 501.5200, L500.2500, L501.2300 #### [facility] [address] [place], [address] Absolute Lymph 0.50 X10 3/uL Low 0.83-4.51 [facility] Comment on above: Performed By: #### L 100.0100 #### [facility] [address] [place], [address] Absolute Neut 8.6 X10 3/uL High 2.0-7.7 [facility] Comment on above: Performed By: #### L 100.0100 #### [facility] [address] [place], [address] Basophils/100 WBC (Bld) 0.1 % Normal 0-[address] [facility] Comment on above: Performed By: #### L 100.0100 #### [facility] [address] [place], [address] Eosinophils/100 WBC (Bld) 0.0 % Normal 0-5 [facility] Comment on above: Performed By: #### L 100.0100 #### [facility] [address] [place], [address] Erythrocyte distribution width (RBC) [Ratio] 13.6 % Normal 11.6-14.6 [facility] Comment on above: Performed By: #### L 100.0100 #### [facility] [address] [place], [address] Hematocrit (Bld) [Volume fraction] 41.1 % Normal 37-47 [facility] Comment on above: Performed By: #### L 100.0100 #### [facility] [address] [place], [address] Hemoglobin (Bld) [Mass/Vol] 13.4 g/dL Normal 12.0-15.0 [facility] Comment on above: Performed By: #### L 100.0100 #### [facility] [address] [place], [address] IG% 0.400 Normal 0.0-0.9 [facility] Comment on above: Result Comment: IG% - Immature Granulocytes (promyelocytes, myelocytes and metamyelocytes) > 1% indicates that a LEFT SHIFT is Present. Performed By: #### L 100.0100 #### [facility] [address] [place], [address] Lymphocytes/100 WBC (Bld) 5.3 % Low 19-41 [facility] Comment on above: Performed By: #### L 100.0100 #### [facility] [address] [place], [address] MCH (RBC) [Entitic mass] 28.9 pg Normal 27.0-32.0 [facility] Comment on above: Performed By: #### L 100.0100 #### [facility] [address] [place], [address] MCHC (RBC) [Mass/Vol] 32.6 g/dL Normal 32-36 [facility] Comment on above: Performed By: #### L 100.0100 #### [facility] [address] [place], [address] MCV (RBC) [Entitic vol] 88.8 fL Normal 81-[address] [facility] Comment on above: Performed By: #### L 100.0100 #### [facility] [address] [place], [address] Monocytes/100 WBC (Bld) 3.3 % Normal 0-[address] [facility] Comment on above: Performed By: #### L 100.0100 #### [facility] [address] [place], [address] Neutrophils/100 WBC (Bld) 90.9 % High 47-70 [facility] Comment on above: Performed By: #### L 100.0100 #### [facility] [address] [place], [address] Nucleated RBC (Bld) [#/Vol] 0 10*3/uL Normal 0-5 [facility] Comment on above: Performed By: #### L 100.0100 #### [facility] [address] [place], [address] Platelet mean volume (Bld) [Entitic vol] 9.5 fL Normal 6.2-12.0 [facility] Comment on above: Performed By: #### L 100.0100 #### [facility] [address] [place], [address] Platelets (Bld) [#/Vol] 429 10*3/uL Normal 150-450 [facility] Comment on above: Performed By: #### L 100.0100 #### [facility] [address] [place], [address] RBC (Bld) [#/Vol] 4.63 10*6/uL Normal 4.2-5.4 [facility] Comment on above: Performed By: #### L 100.0100 #### [facility] [address] [place], [address] RDW SD 44.2 fl High 35.1-43.9 [facility] Comment on above: Performed By: #### L 100.0100 #### [facility] [address] [place], [address] WBC (Bld) [#/Vol] 9.4 10*3/uL Normal 4.4-11.0 [facility] Comment on above: Performed By: #### L 100.0100 #### [facility] [address] [place], [address] Discharge Instructionon 12-3 Discharge Instruction [facility] Medical Records Department [address] [place] [address] Instructions for Home/Discharge Instructions 07/17/24 1210 MR#: [id number] Acct: [id number] Name: SAVANNAH IRVIN Rep #: [id number] : 1965 59 From: Jama Bustamante MD PCP: Dr. Ivette Welsh MD Status:ADM IN Discharge Instructions Diet Discharge Diet: 2000 mg Sodium Diet DC O2, CPAP, BIPAP needs Home O2 Discharge instructions: Yes Type of respiratory needs?: Oxygen Oxygen frequency: Continuous Continuous oxygen liters per minute: 2 l/M Dressing / Incision Discharge Activity: Return to Normal Activity Weight Bearing Status: Weight bearing as tolerated Dressing / Incision Call your doctor if you observe: Fever of 101 or Higher, Coldness, Increased Pain, Numbness or Tingling, Change in Color, Inability to urinate, Inability to have a bowel movement, Shortness of breath, Dizziness, Fainting spells, Swelling in the ankles, Chest pain, Prolonged hiccupping, Increased palpitations (irregular heartbeat) and Calf discomfort Follow Up Care When: IN 2 WEEKS Test Results: Test results from this visit will be discussed in further detail at your follow-up appointment, if applicable. Discharge Plan Admission Admit Date/Time: 07/15/24 23:46 Primary Reason for Your Visit: COPD exacerbation. Dysphagia Attending Provider: Jama Bustamante Primary Care Provider: Ivette Welsh Consulting Providers: Albert Hartmann Instructions Additional Instructions / Restrictions: Follow-up with [facility] or outside pulmonary office 2 weeks Patient will also need transvaginal ultrasound as an outpatient for abnormal CT finding regarding uterus possible fibroid or myometrial or endometrial abnormality Discharge Orders/Prescriptions Prescriptions: New prednisone 20 mg tablet 40 mg PO DAILY 5 Days Qty: 10 0RF dextromethorphan-guaif enesin [Mucinex DM] 60-1,200 mg tablet extended release 12 hr 1 tab PO Q12H 7 Days Qty: 14 0RF nicotine 14 mg/24 hr Patch 24 Hour 14 mg transdermal DAILY 30 Days Qty: 30 0RF pantoprazole 40 mg Tablet,Delayed Release (Dr/Ec) 40 mg PO DAILY 30 Days Qty: 30 0RF Continued albuterol sulfate 2.5 MG/3 ML solution for nebulization 2.5 mg INHALATION Q4H PRN Qty: 25 0RF Rx Instructions: Use q4 hours and PRN for wheezing albuterol sulfate [Ventolin HFA] 18 GM HFA aerosol inhaler 1 - 2 puff inhalation PRN PRN (Reason: Sob /Or Wheezing) Patient Comments: inhale 2 puffs by mouth every 4 hours as directed if needed for wheezing or shortness of breath epinephrine 0.3 MG syringe 0.3 mg IM X1 Qty: 1 1RF Referrals / Follow Up: Luis Fernando Salazar DO [Med Staff - Active Staff] - Within 2 Weeks Ivette Welsh MD [Primary Care Provider] - Within 2 Weeks Jorge L Asencio DO [Med Staff - Active Staff] - Within 1 Month (Follow-up after EGD) Brisa Gutierrez MD [Med Staff - Active Staff] - Within 1 Month Disposition Disposition (needs filled in before D/C Order can be placed): Home, Self Care 07/17/24 1217 Jama Bustamante MD CC: Dr. Albert Hartmann DO; Dr. Ivette Welsh MD Signed Normal [facility] EGD Reporton 07-17-2024 EGD Report [facility] Medical Records Department [address] [place] [address] EGD Report MR#: [id number] Acct: [id number] Name: SAVANNAH IRVIN Rep #: [id number] : 1965 59 From: Jorge L Asencio DO PCP: Dr. Ivette Welsh MD Status:ADM IN Patient Name: Savannah Irvin Procedure Date: 07/17/2024 10:25 AM Date of : 1965 Age: 59 Procedure: Upper GI endoscopy Indications: Dysphagia Providers: Jorge L Asencio DO Medicines: Monitored Anesthesia Care Patient Profile: This is a 59 year old female. Refer to note in patient chart for documentation of history and physical. Patient has symptoms of dysphagia with both liquids and solids. Complications: No immediate complications. Procedure: Pre-Anesthesia Assessment: - Prior to the procedure, a History and Physical was performed, and patient medications and allergies were reviewed. The patient is competent. The risks and benefits of the procedure and the sedation options and risks were discussed with the patient. All questions were answered and informed consent was obtained. Patient identification and proposed procedure were verified by the physician in the pre-procedure area. Mental Status Examination: alert and oriented. Airway Examination: normal oropharyngeal airway and neck mobility. Respiratory Examination: clear to auscultation. CV Examination: normal. Prophylactic Antibiotics: The patient does not require prophylactic antibiotics. Prior Anticoagulants: The patient has taken no anticoagulant or antiplatelet agents except for NSAID medication. ASA Grade Assessment: II - A patient with mild systemic disease. After reviewing the risks and benefits, the patient was deemed in satisfactory condition to undergo the procedure. The anesthesia plan was to use monitored anesthesia care (MAC). Immediately prior to administration of medications, the patient was re-assessed for adequacy to receive sedatives. The heart rate, respiratory rate, oxygen saturations, blood pressure, adequacy of pulmonary ventilation, and response to care were monitored throughout the procedure. The physical status of the patient was re-assessed after the procedure. After obtaining informed consent, the endoscope was passed under direct vision. Throughout the procedure, the patient's blood pressure, pulse, and oxygen saturations were monitored continuously. The gastroscope was introduced through the mouth, and advanced to the second part of duodenum. The upper GI endoscopy was accomplished without difficulty. The patient tolerated the procedure well. Scope In: 12:13:25 PM Scope Out: 12:31:54 PM Total Procedure Duration Time 0 hours 18 minutes 29 seconds Findings: Two benign-appearing, intrinsic severe (stenosis; an endoscope cannot pass) stenoses were found 37 to 40 cm from the incisors. The narrowest stenosis measured 4 mm (inner diameter) x 5 cm (in length). The stenoses were traversed after dilation. A TTS dilator was passed through the scope. Dilation with an 18-19-20 mm balloon dilator was performed to 18 mm. The dilation site was examined and showed moderate improvement in luminal narrowing. Biopsies were taken with a cold forceps for histology. Verification of patient identification for the specimen was done. Estimated blood loss was minimal. Coagulation for tissue destruction using argon beam at 0.4 liters/minute and 20 hernandez was successful. Estimated blood loss was minimal. A medium-sized hiatal hernia was present. No other significant abnormalities were identified in a careful examination of the stomach. No gross lesions were noted in the duodenal bulb. A moderate Schatzki ring was found in the lower third of the esophagus. A TTS dilator was passed through the scope. Dilation with an 18-19-20 mm balloon dilator was performed to 20 mm. The dilation site was examined and showed moderate improvement in luminal narrowing. Estimated blood loss was minimal. Impression: - Benign-appearing esophageal stenoses. Dilated. Biopsied. Treated with argon beam coagulation. - Medium-sized hiatal hernia. - No gross lesions in the duodenal bulb. Recommendation: - Return patient to [facility] for [facility] care. - Full liquid diet today. - Continue present medications. - Await pathology results. - Repeat upper endoscopy in 2 months for surveillance. - Pantoprazole 40 mg p.o. twice daily - Carafate 1 g 3 times a day - Smoking cessation - Temporary esophageal stent placement to keep the stricture open Procedure Code(s): --- Professional --- 19271, Esophagogastroduodenos copy, flexible, transoral; with ablation of tumor(s), polyp(s), or other lesion(s) (includes pre- and post-dilation and guide wire passage, when performed) 70571, 59,51, Esophagogastroduodenos copy, flexible, transoral; with biopsy, single or (more content not included)... Normal [facility] MR/PN.GIon 07-17-2024 MR/PN.GI [facility] Medical Records Department [address] [place] [address] Progress Note - GI 07/17/24 1200 MR#: [id number] Acct: [id number] Name: SAVANNAH IRVIN SRIDHAR Rep #: [id number] : 1965 59 From: Jorge L Friend DO PCP: Dr. Ivette Welsh MD Status:ADM IN Location: [place] [address] Subjective Subjective The patient still having esophageal dysphagia. She will undergo endoscopy today. Objective Data Objective Data Vital Signs: Vital Signs Temp Pulse Resp BP Pulse Ox O2 Del Method O2 Flow Rate 97.9 F 93 18 166/94 H 93 Nasal Cannula 2 07/17/24 11:20 07/17/24 11:33 07/17/24 11:33 07/17/24 11:20 07/17/24 11:20 07/17/24 11:20 07/17/24 11:20 Oxygen Flow Rate (L/min) 2 Oxygen Delivery Method Nasal Cannula Weight: 171 lb 4.787 oz Body Mass Index (BMI) 29.4 Intake Output: Intake and Output for Last 24 Hours 07/15/24 07/16/24 07/17/24 23:59 23:59 23:59 Intake Total 1050 / 1050 2955 / 3210 255 / 255 Output Total 1000 / 1000 Balance 1050 / 1050 1955 / 2210 255 / 255 Lab / Micro Data 07/17/24 06:30 07/17/24 06:30 Labs: Laboratory Results - last 24 hr 07/17/24 06:30: WBC 9.4, RBC 4.63, Hgb 13.4, Hct 41.1, MCV 88.8, MCH 28.9, MCHC 32.6, RDW Std Deviation 44.2 H, RDW Coeff of Madhu 13.6, Plt Count 429, MPV 9.5, Immature Gran % (Auto) 0.400, Neut % (Auto) 90.9 H, Lymph % (Auto) 5.3 L, [place] % (Auto) 3.3, Eos % (Auto) 0.0, Baso % (Auto) 0.1, A bsolute Neuts (auto) 8.6 H, Absolute Lymphs (auto) 0.50 L, Nucleated RBC % 0, Sodium 138, Potassium 3.6, Chloride 105, Carbon Dioxide 26.0, Anion Gap 7, BUN 9, Creatinine 0.82, Estim Creat Clear Calc 75.44, Est GFR (MDRD) Af Amer 93, Est GFR (MDRD) Non-Af 77, BUN/Creatinine Ratio 11.0, Glucose 238 H , Calcium 9.2, Phosphorus 2.3 L, Magnesium 2.0 Micro: Microbiology 07/16/24 10:57 Urine, Clean Catch Streptococcus pneumoniae Antigen (M - Final 07/16/24 10:57 Urine, Clean Catch Legionella Antigen - Final 07/15/24 16:08 Mucosa - Nose SARS-CoV-2, Influenza RSV (PCR) - Final Rhythm Strip Rhythm Strip: Sinus Rhythm Ectopy: None Physical Exam Const alert, oriented x3 and average body habitus Constitutional Narrative: Mild distress noted with chronically ill appearance. General Appearance: cooperative HEENT normocephalic, head/scalp atraumatic and hearing grossly normal bilaterally HEENT Narrative: Mucous membranes dry. Eyes PERRL and EOMs intact bilaterally Neck no lymphadenopathy and supple Resp Resp Narrative: Mildly increased work of breathing with coarse breath sounds throughout and expiratory wheezing. Auscultation: wheezes Cardio regular rate and regular rhythm GI normal to inspection, nondistended, normoactive bowel sounds, soft to palpation, non-tender and non- distended Extremity normal to inspection, full ROM and no clubbing, cyanosis or edema Skin Skin Narrative: Patient has no evidence of rash, abscess or jaundice. Neuro oriented x3, CN's II-XII intact bilaterally, moves all extremities and no focal motor deficits Sensorium / Orientation: awake, alert, oriented to person, oriented to place and oriented to time Speech: speech normal Psych Mood Affect: anxious Assessment Plan Assessment/Plan (1) Dysphagia: PLAN: The differential diagnosis for esophageal dysphagia in a patient with COPD could be Connie esophagitis, pill induced esophagitis, or esophagitis, esophageal stricture, eosinophilic esophagitis. We will perform an upper endoscopy to evaluate upper GI tract and possibly perform dilation and biopsies of the upper GI tract. She was explained alternatives, risk, benefits include not withstanding bleeding, infection, sepsis, perforation, need for charge and . She will have an ASA of 3. Charges/Coding Visit Charges Inpatient E M: 80645 Subs Hosp L3 07/17/24 1201 Cosigner Signature (if applicable): CC: Signed Normal [facility] MR/POSTOP.[facility] 07-17-2024 MR/POSTOP.[facility] Medical Records Department [address] [place] [address] Anesthesia Postop Eval I 07/17/24 1242 MR#: [id number] Acct: [id number] Name: SAVANNAH IRVIN SRIDHAR Rep #: [id number] : 1965 59 From: Osvaldo Ann PCP: Dr. Ivette Welsh MD Status:ADM IN Y Race: C Location: [place] [address] Anesthesia: Postop Eval I Current Vital Signs Temperature: 97.6 F Pulse Rate: 88 Blood Pressure: 115/74 Respiratory Rate: 18 Pulse Ox: 95 Oxygen Delivery Method: Nasal Cannula Oxygen Flow Rate (L/min): 2 Assessment Airway patent: Yes Spontaneous unlabored respirations: Yes Mental status: Asleep nausea: No Vomiting: No Anesthesia Complication: No Fluid Hydration Crystalloid volume administer (ml): 40 Total IV fluid infused: 40 Progress Note Anesthesia document: Postop Eval 1 completed: Yes 07/17/24 1243 Date Osvaldo Pollock Signature: Date CC: Signed Normal [facility] MR/[id number] 07-17-2024 [facility] Medical Records Department [address] [place] [address] Anesthesia Postop Eval II 07/17/24 1407 MR#: [id number] Acct: [id number] Name: BRANDEESAVANNAH SRIDHAR Rep #: [id number] : 1965 59 From: Oscar Mcpherson MD PCP: Dr. Ivette Welsh MD Status:ADM IN Y Race: C Location: [place] [address] Anesthesia Postop Eval I Sum Postop Eval Completion status Anesthesia document: Postop Eval 1 completed: Yes Anesthesia Postop Eval I Summary Anesthesia Postop Eval I Summary: Anesthesia Postop Eval I: Assessment Summary Airway patent Yes 07/17/24 12:42 [email or web address] Spontaneous unlabored Yes 07/17/24 12:42 [email or web address] respirations Mental status Asleep 07/17/24 12:42 [email or web address] nausea No 07/17/24 12:42 [email or web address] Vomiting No 07/17/24 12:42 [email or web address] Anesthesia Postop Eval I: Fluid Summary Crystalloid volume administer 40 07/17/24 12:42 [email or web address] (ml) Colloids volume administered ( ml) Blood Product volume administered (ml) Total IV fluid infused 40 07/17/24 12:42 [email or web address] Anesthesia Postop Eval I: Summary Notes Anesthesia Complication No 07/17/24 12:42 [email or web address] Anesthesia Complication Comment: Post-operative progress note Anesthesia: Postop Eval II Evaluation Mental status: Awake and Calm Pain Level: 0 nausea: No Vomiting: No Complications Anesthesia Complication: No 07/17/24 1407 Date Oscar Pollock Signature: Date CC: Signed Normal [facility] Magnesiumon 07-17-2024 Magnesium [Mass/Vol] 2.0 mg/dL Normal 1.6-2.6 [facility] Comment on above: Performed By: #### L 501.5200, L500.2500, L501.2300 #### [facility] [address] [place], [address] P53 (initial)on 07-17-2024 P53 (initial) -- ---- Patient Age/Sex Location Account Attending Physician ---- SAVANNAH IRVIN 59/F U [id number] Dr. Jama Bustamante MD ---- Specimen: [id number] Received: 07/20/24-3 Status: JOHN Rossi Num: [id number] Spec Type: IMMUNO Subm Dr: Jorge L Asencio DO PHYSICIAN INSTITUTION [place] [id number] SPECIMEN INFORMATION: Tissue Source: Distal esophagus biopsy Clinical Info: Dysphagia Specimen Number: [id number] CPT code: 03537 METHODOLOGY: Deparaffinized sections of prefer/formalin-fixed tissue or PAP/DQ stained slides are incubated with monoclonal/polyclonal antibodies/oligonucleo tide probes. Localization is made via biotin free immunoperoxidase method. Appropriate controls are performed and reacted as expected. Results on target cell population are indicated in the following table: RESULTS: ANTIBODY / CLONE RESULT P53 (DO-7) positive, focal and weak (wild type pattern) Ki-67 (30-9) positive, low to moderate These tests were developed and their performance characteristics determined by [facility]. They may not have been cleared or approved by the U.S. Food and Drug Administration. The FDA has determined that such clearance or approval is not necessary. The above immunohistochemical/du alISH markers are ordered and reviewed by the Pathologist. INTERPRETATION: Distal esophagus, biopsy: Negative for dysplasia. 07/21/2024 Signed (signature on file) Dr. Dakota Lyle MD 07/21/24 1135 ---- Normal [facility] Comment on above: Performed By: #### L 100.0100 #### [facility] [address] [place] [address], [id number] Phosphoruson 07-17-2024 Phosphate [Mass/Vol] 2.3 mg/dL Low 2.5-4.9 [facility] Comment on above: Performed By: #### L 501.5200, L500.2500, L501.2300 #### [facility] [address] [place], [place], [id number] ,Urineon 07-17-2024 Beta HCG ( test) Ql (U) Negative Normal [facility] Comment on above: Order Comment: Anyon jose has had a period within 12 mo Result Comment: Very dilute urine specimens, as indicated by a low specific gravity, may not contain group sales representative levels of hCG. If is still suspected, a first morning urine specimen should be collected 48 hours later and tested. Performed By: #### L 589.0218 #### [facility] [address] [place], [place], [id number] Special Stain Group Ion 12-3 Special Stain Group I ---- ---- Patient Age/Sex Location Account Attending Physician ---- SAVANNAH IRVIN 59/F U [id number] Dr. Jama Bustamante MD ---- Specimen: [id number] Received: 07/17/24986 Status: JOHN Rossi Num: [id number] Spec Type: EGD BIOPSY Subm Dr: Jorge L Asencio, DO HEADER OPERATION: EGD with dilation, biopsy PRE-OP DIAGNOSIS: Dysphagia TISSUE SUBMITTED: Distal esophagus biopsy ---- MICROSCOPIC DIAGNOSIS Distal esophagus, biopsy: Fragments of gastric mucosa with ulceration, acute and chronic inflammation. Focal intestinal metaplasia (goblet cell metaplasia), consistent with Paul's esophagus. Negative for dysplasia. See comment. SJ.mr 07/20/2024 COMMENT Alcian blue/PAS stain with matched control is used in the evaluation of the specimen. Immunohistochemistry ([id number]) for P53 and Ki-67 will be performed and results will be reported separately. MICROSCOPIC DESCRIPTION Slides are reviewed. GROSS DESCRIPTION Received in fixative is one container labeled with the patient's name and designated Distal esophagus biopsy. The specimen consists of multiple irregular fragments of light hampton soft tissue that in aggregate measure 2.0 x 0.9 x 0.2 cm. The specimen is totally submitted in one cassette. 07/18/2024 TC:2 CPT:95133,54165 ---- Patient Age/Sex Location Account Attending Physician ---- SAVANNAH IRVIN 59/F [facility] [id number] Dr. Jama Bustamante MD ---- Signed (signature on file) Dr. Dakota Lyle MD 07/21/24 0847 ---- Normal [facility] Comment on above: Performed By: #### L 501.5200, L500.2500, L501.2300 #### [facility] [address] [place], [place], [phone] BNP,B-Type NATRIURETIC PEPTI Letty 07-16-2024 Natriuretic peptide B (Bld) [Mass/Vol] 120.6 pg/mL High 0-100 [facility] Comment on above: Performed By: #### L 501.5200, L500.2500, L501.2300 #### [facility] [address] [place], [address] CBC W/Diff, Automatedon 12-2 Absolute Lymph 0.63 X10 3/uL Low 0.83-4.51 [facility] Comment on above: Performed By: #### L 501.5200, L501.9520, L100.0100, L500.4050, L501.2300 #### [facility] [address] [place], [address] Absolute Neut 6.9 X10 3/uL Normal 2.0-7.7 [facility] Comment on above: Performed By: #### L 501.5200, L501.9520, L100.0100, L500.4050, L501.2300 #### [facility] [address] [place], [address] Basophils/100 WBC (Bld) 0.1 % Normal 0-[address] [facility] Comment on above: Performed By: #### L 501.5200, L501.9520, L100.0100, L500.4050, L501.2300 #### [facility] [address] [place], [address] Eosinophils/100 WBC (Bld) 0.0 % Normal 0-5 [facility] Comment on above: Performed By: #### L 501.5200, L501.9520, L100.0100, L500.4050, L501.2300 #### [facility] [address] [place], [address] Erythrocyte distribution width (RBC) [Ratio] 13.8 % Normal 11.6-14.6 [facility] Comment on above: Performed By: #### L 501.5200, L501.9520, L100.0100, L500.4050, L501.2300 #### [facility] [address] [place], [address] Hematocrit (Bld) [Volume fraction] 44.5 % Normal 37-47 [facility] Comment on above: Performed By: #### L 501.5200, L501.9520, L100.0100, L500.4050, L501.2300 #### [facility] [address] [place], [address] Hemoglobin (Bld) [Mass/Vol] 13.9 g/dL Normal 12.0-15.0 [facility] Comment on above: Performed By: #### L 501.5200, L501.9520, L100.0100, L500.4050, L501.2300 #### [facility] [address] [place], [address] IG% 0.400 Normal 0.0-0.9 [facility] Comment on above: Result Comment: IG% - Immature Granulocytes (promyelocytes, myelocytes and metamyelocytes) > 1% indicates that a LEFT SHIFT is Present. Performed By: #### L 501.5200, L501.9520, L100.0100, L500.4050, L501.2300 #### [facility] [address] [place], [address] Lymphocytes/100 WBC (Bld) 8.2 % Low 19-41 [facility] Comment on above: Performed By: #### L 501.5200, L501.9520, L100.0100, L500.4050, L501.2300 #### [facility] [address] [place], [address] MCH (RBC) [Entitic mass] 28.0 pg Normal 27.0-32.0 [facility] Comment on above: Performed By: #### L 501.5200, L501.9520, L100.0100, L500.4050, L501.2300 #### [facility] [address] [place], [address] MCHC (RBC) [Mass/Vol] 31.2 g/dL Low 32-36 [facility] Comment on above: Performed By: #### L 501.5200, L501.9520, L100.0100, L500.4050, L501.2300 #### [facility] [address] [place], [address] MCV (RBC) [Entitic vol] 89.5 fL Normal 81-[address] [facility] Comment on above: Performed By: #### L 501.5200, L501.9520, L100.0100, L500.4050, L501.2300 #### [facility] [address] [place], [address] Monocytes/100 WBC (Bld) 1.3 % Normal 0-10 [facility] Comment on above: Performed By: #### L 501.5200, L501.9520, L100.0100, L500.4050, L501.2300 #### [facility] [address] [place], [address] Neutrophils/100 WBC (Bld) 90.0 % High 47-70 [facility] Comment on above: Performed By: #### L 501.5200, L501.9520, L100.0100, L500.4050, L501.2300 #### [facility] [address] [place], [address] Nucleated RBC (Bld) [#/Vol] 0 10*3/uL Normal 0-5 [facility] Comment on above: Performed By: #### L 501.5200, L501.9520, L100.0100, L500.4050, L501.2300 #### [facility] [address] [place], [address] Platelet mean volume (Bld) [Entitic vol] 9.5 fL Normal 6.2-12.0 [facility] Comment on above: Performed By: #### L 501.5200, L501.9520, L100.0100, L500.4050, L501.2300 #### [facility] [address] [place], [address] Platelets (Bld) [#/Vol] 394 10*3/uL Normal 150-450 [facility] Comment on above: Performed By: #### L 501.5200, L501.9520, L100.0100, L500.4050, L501.2300 #### [facility] [address] [place], [address] RBC (Bld) [#/Vol] 4.97 10*6/uL Normal 4.2-5.4 [facility] Comment on above: Performed By: #### L 501.5200, L501.9520, L100.0100, L500.4050, L501.2300 #### [facility] [address] [place], [address] RDW SD 45.5 fl High 35.1-43.9 [facility] Comment on above: Performed By: #### L 501.5200, L501.9520, L100.0100, L500.4050, L501.2300 #### [facility] [address] [place], [address] WBC (Bld) [#/Vol] 7.6 10*3/uL Normal 4.4-11.0 [facility] Comment on above: Performed By: #### L 501.5200, L501.9520, L100.0100, L500.4050, L501.2300 #### [facility] [address] [place], [address] Comprehensive Metabolic [facility] 07-16-2024 Albumin [Mass/Vol] 2.8 g/dL Low 3.2-5.0 [facility] Comment on above: Performed By: #### L 501.5200, L501.9520, L100.0100, L500.4050, L501.2300 #### [facility] [address] [place], [address] Albumin/Globulin [Mass ratio] 0.6 {ratio} Low 0.9-2.4 [facility] Comment on above: Performed By: #### L 501.5200, L501.9520, L100.0100, L500.4050, L501.2300 #### [facility] [address] [place], [address] ALK P 103 U/L Normal 45-117 [facility] Comment on above: Performed By: #### L 501.5200, L501.9520, L100.0100, L500.4050, L501.2300 #### [facility] [address] [place], [address] ALT [Catalytic activity/Vol] 15 U/L Normal 13-56 [facility] Comment on above: Performed By: #### L 501.5200, L501.9520, L100.0100, L500.4050, L501.2300 #### [facility] [address] [place], [place], [address] AST [Catalytic activity/Vol] 14 U/L Low 15-37 [facility] Comment on above: Performed By: #### L 501.5200, L501.9520, L100.0100, L500.4050, L501.2300 #### [facility] [address] [place], [address] Bilirubin [Mass/Vol] 0.30 mg/dL Normal 0.20-1.00 [facility] Comment on above: Result Comment: For patients on eltrombopag therapy, use of [facility] TBIL is not recommended. Performed By: #### L 501.5200, L501.9520, L100.0100, L500.4050, L501.2300 #### [facility] [address] [place], [address] BUN/CRE 13.0 RATIO Normal 10-20 [facility] Comment on above: Performed By: #### L 501.5200, L501.9520, L100.0100, L500.4050, L501.2300 #### [facility] [address] [place], [address] CA,Total 8.5 mg/dL Normal 8.5-10.1 [facility] Comment on above: Performed By: #### L 501.5200, L501.9520, L100.0100, L500.4050, L501.2300 #### [facility] [address] [place], [address] Chloride [Moles/Vol] 104 mmol/L Normal 98-107 [facility] Comment on above: Performed By: #### L 501.5200, L501.9520, L100.0100, L500.4050, L501.2300 #### [facility] [address] [place], [address] CO2 [Moles/Vol] 27.0 mmol/L Normal 21.0-32.0 [facility] Comment on above: Performed By: #### L 501.5200, L501.9520, L100.0100, L500.4050, L501.2300 #### [facility] [address] [place], [address] Creatinine [Mass/Vol] 0.77 mg/dL Normal 0.55-1.02 [facility] Comment on above: Result Comment: The validity of the calculated GFR GFRAA in patients over 70 years has not been determined. Clinical correlation is essential. Performed By: #### L 501.5200, L501.9520, L100.0100, L500.4050, L501.2300 #### [facility] [address] [place], [address] ECRCL 78.32 ml/min Normal [facility] Comment on above: Performed By: #### L 501.5200, L501.9520, L100.0100, L500.4050, L501.2300 #### [facility] [address] [place], [address] EST GFR - AA 99 mL/min Normal >60 [facility] Comment on above: Result Comment: Afri can [place] GFR Calc Performed By: #### L 501.5200, L501.9520, L100.0100, L500.4050, L501.2300 #### [facility] [address] [place], [address] GAP 6 Normal 5-15 [facility] Comment on above: Performed By: #### L 501.5200, L501.9520, L100.0100, L500.4050, L501.2300 #### [facility] [address] [place], [address] GFR/1.73 sq M.predicted among non-blacks MDRD (S/P/Bld) [Vol rate/Area] 82 mL/min/{1.73_m2} Normal >60 [facility] Comment on above: Result Comment: Non- GFR Calc Performed By: #### L 501.5200, L501.9520, L100.0100, L500.4050, L501.2300 #### [facility] [address] [place], [address] Globulin (S) [Mass/Vol] 4.4 g/dL High 2.2-4.[address] [facility] Comment on above: Performed By: #### L 501.5200, L501.9520, L100.0100, L500.4050, L501.2300 #### [facility] [address] [place], [address] Glucose [Mass/Vol] 171 mg/dL High 74-106 [facility] Comment on above: Result Comment: Fast ing Glucose result greater than or equal to 126 mg/dL suggests DIABETES MELLITUS per A.D.A. criteria. Performed By: #### L 501.5200, L501.9520, L100.0100, L500.4050, L501.2300 #### [facility] [address] [place], [address] Potassium [Moles/Vol] 4.2 mmol/L Normal 3.5-5.1 [facility] Comment on above: Performed By: #### L 501.5200, L501.9520, L100.0100, L500.4050, L501.2300 #### [facility] [address] [place], [address] Sodium [Moles/Vol] 137 mmol/L Normal 136-145 [facility] Comment on above: Performed By: #### L 501.5200, L501.9520, L100.0100, L500.4050, L501.2300 #### [facility] [address] [place], [address] T PROT 7.2 g/dL Normal 6.4-8.2 [facility] Comment on above: Performed By: #### L 501.5200, L501.9520, L100.0100, L500.4050, L501.2300 #### [facility] [address] [place], [address] Urea nitrogen [Mass/Vol] 10 mg/dL Normal 7-18 [facility] Comment on above: Performed By: #### L 501.5200, L501.9520, L100.0100, L500.4050, L501.2300 #### [facility] [address] [place], [address] Echo Completeon 07-16-2024 Echo Complete [facility] [address] [place] [address] Echo Complete 07/17/24 1444 MR#: [id number] Acct: [id number] Name: SAVANNAH IRVIN Rep #: [id number] : 1965 59 From: Carl Richmond MD Attending Dr: Dr. Jama Bustamante MD Status: ADM IN Ordering Dr: Albert Hartmann DO Date: 07/16/24 Location: [facility] Sex: F C Admitted: 07/15/24 Reason For Study: NEAR SYNCOPE Procedure This was a 2D Doppler, Color Flow transthoracic echocardiogram. Exam performed portable in patient room. Left Ventricle Normal LV size. Mild concentric left ventricular hypertrophy. Left ventricular systolic function is normal. The left ventricular ejection fraction is 55 %. Stage 1 diastolic dysfunction. No regional wall motion abnormalities noted. Right Ventricle Normal RV size. Normal systolic function. Atria Normal left atrium. Normal right atrium. Mitral Valve Normal mitral valve. Tricuspid Valve Normal tricuspid valve. Aortic Valve The aortic valve is not well visualized. Mild (1+) aortic valve insufficiency. Pulmonic Valve Normal pulmonic valve. Great Vessels Normal aortic root. The pulmonary artery is normal size. Normal inferior vena cava. Pericardium/Pleural No pericardial effusion. MMode/2D Measurements Calculations LVIDd: 4.4 cm IVSd: 1.2 cm LVOT diam: 1.9 cm LVIDs: 2.9 cm LVPWd: 1.3 cm LVOT area: 2.7 cm2 RVDd: 2.8 cm FS: 34.9 % LAV(MOD-bp): 31.4 ml LVAd ap4: 25.8 cm2 SV(MOD-sp4): 43.2 ml LAV(MOD-bp) Indexed: 17.4 ml/m2 LVLd ap4: 7.3 cm SI(MOD-sp4): 24.0 ml/m2 LAV(MOD-sp2): 33.9 ml EDV(MOD-sp4): 78.7 ml LAV(MOD-sp4): 27.6 ml EDV(sp4-el): 77.1 ml LVAs ap4: 16.1 cm2 LVLs ap4: 6.4 cm ESV(MOD-sp4): 35.5 ml ESV(sp4-el): 34.4 ml EF(MOD-sp4): 54.9 % EF(sp4-el): 55.3 % SV(sp4-el): 42.7 ml LA A4 area: 13.1 cm2 LA dimension(2D): 4.3 cm RA A4 area: 10.8 cm2 Time Measurements MV dec time: 0.14 sec Doppler Measurements Calculations MV E max renetta: 99.6 cm/sec Lat Peak E' Renetta: 8.2 cm/sec Med Peak E' Renetta: 7.0 cm/sec MV A max renetta: 130.0 cm/sec E/E' lat: 12.2 E/E' med: 14.2 MV E/A: 0.77 MV V2 max: 128.0 cm/sec Ao V2 max: 255.0 cm/sec MV max P.6 mmHg MV dec slope: 696.5 cm/sec2 Ao max P.1 mmHg MV V2 mean: 78.9 cm/sec Ao V2 mean: 179.4 cm/sec MV mean P.8 mmHg Ao mean P.7 mmHg MV V2 VTI: 35.0 cm Ao V2 VTI: 57.3 cm AV (velocity ratio): 0.58 MVA(VTI): 2.6 cm2 GERARDO(I,D): 1.6 cm2 GERARDO(V,D): 1.3 cm2 AI max renetta: 480.0 cm/sec LV V1 max: 123.3 cm/sec SV(LVOT): 91.1 ml AI max P.2 mmHg LV V1 max P.1 mmHg LV V1 mean P.8 mmHg AI dec slope: 272.3 cm/sec2 LV V1 mean: 90.1 cm/sec AI P1/2t: 516.3 msec LV V1 VTI: 33.3 cm PA V2 max: 99.6 cm/sec PA V2 mean: 74.6 cm/sec ECHO/Echo Complete Interpretation Summary Normal LV size. Left ventricular systolic function is normal. The left ventricular ejection fraction is 55 %. Mild concentric left ventricular hypertrophy. Stage 1 diastolic dysfunction. Ordering Physician: Albert Hartmann Referring Physician: MD Ivette Welsh Performed By: Lisa Price RCS 07/17/24 1641 Date Carl Richmond MD CC: Dr. Albert Hartmann DO; Dr. Ivette Welsh MD; Dr. Jama Bustamante MD Date Dictated: 07/17/24 1444 Date Transcribed: 07/17/24 164 Paradichlorobenzene Machine Operator: Signed [facility] Legionella Antigen Urineon 1 09-16-2023 LEGU URINE, CLEAN CATCH Legionella Antigen result interpretation: L pneumo Ag Ur Ql Negative Presumptive negative for Legionella pneumophila serogroup 1 antigen in urine, suggesting no recent or current infection. Legionella Ag, Urine Negative (See interpretation below) [facility] Comment on above: Performed By: #### L 100.0100 #### [facility] [address] [place], [address] MR/CON.PCM.on 07-16-2024 MR/CON.PCM.[facility] Medical Records Department [address] [place] [address] Consultation - 07/16/24 1152 MR#: [id number] Acct: [id number] Name: SAVANNAH IRVIN SRIDHAR Rep #: [id number] : 1965 59 From: Jorge L Asencio DO PCP: Dr. Ivette Welsh MD Status:ADM IN Location: [place] [id number] ADDENDUM by Jorge L Asencio DO on 07/17/24 at 1156 Visit Charges Inpatient E M: 40923 Init Hosp L3 07/17/24 1156 Cosigner Signature (if applicable): cc: Dr. Ivette Welsh MD * Signed HPI Consult Data Date of Consult: 07/16/24 HPI Narrative Reason for Consultation: Dysphagia HPI Narrative: SAVANNAH IRVIN, is a 59-year-old woman with history of COPD, tobacco use, pulmonary hypertension, hypertension, hyperlipidemia and kidney stones presenting with generalized malaise, dizziness, nausea, cough, shortness of breath and back pain. Patient states that she has not been feeling good all day is been more fatigued. She tried to go downstairs for the got dizzy feeling she was going to pass out. She did she has had some increased back pain for the past week with the right worse than the left. She states is her kidneys at her. She also for the past 1 is an intermittent sharp pains in her left lower quadrant. She denies any urinary symptoms such as dysuria or hematuria. She denies any change in her bowel movements but notes it has been a couple days since she had a bowel movement. She has been passing gas. She denies any chest pain or tightness but does feel more short of breath and feels like she is been wheezing more. She is been coughing and nothing comes up but she feels like there is mucus that needs to come out. She denies any URI symptoms. She notes her daughter was sick over [place] and she was around her. She does report a mild headache. No fevers reported. I was asked to see the patient due to Suspected esophageal stenosis with patient having severe dysphagia feeling food getting stuck penitentiary down her esophagus and forcing herself to vomit. She says that this has been going on for quite some time. She has most problems with solids and not liquids. [facility] Medical History Hypertension Gastroesophageal reflux disease Leukocytosis Acute pyelonephritis Substance abuse Alcohol abuse Chronic pain Kidney stones Smoker Sleep apnea Pulmonary embolism TIA (transient ischemic attack) Stroke/cerebrovascular accident COPD (chronic obstructive pulmonary disease) Asthma Home Medications ???Medication ???Instructions ???Recorded ???Last Taken ???Type albuterol sulfate 2.5 mg/3 mL 2.5 mg (3 mL) inhalation Q4H PRN 10/20/17 02/08/23 Rx (0.083 %) solution for nebulization #25 vials albuterol sulfate 90 mcg/actuation 1 - 2 puff inhalation PRN PRN Sob 05/18/18 02/08/23 History aerosol inhaler (Ventolin HFA) /Or Wheezing epinephrine 0.3 mg/0.3 mL 0.3 mg (0.3 mL) IM X1 ##1 01/21/19 Unknown Rx injection, auto-injector Allergy/AdvReac Type Severity Reaction Status Date / Time peanut Allergy Anaphylaxis Verified 07/15/24 15:02 tree nut (Tree Nut) Allergy Anaphylaxis Verified 07/15/24 15:02 Family History Mother COPD (chronic obstructive pulmonary disease) Hypertension Father Epilepsy Surgical History History of bilateral ligation of fallopian tubes History of cholecystectomy Social History household members: none Smoking Status: Current every day smoker tobacco type: cigarettes alcohol intake: former substance use type: marijuana ROS ROS Narrative Review of Systems: Constitutional: Patient admits to generalized weakness and fatigue but she denies fever or chills. Eyes: Patient denies changes in vision or discharge from eyes. ENT: Patient denies runny nose, sore throat or ear pain. Resp: Patient admits to dyspnea on exertion that progressed to shortness of breath at rest with wheezing and nonproductive cough as per HPI. CV: Patient denies chest pain, palpitations or heart racing. GI: Patient admits to mild constipation but she denies abdominal pain, nausea or vomiting. : Patient denies dysuria or hematuria. MSK: Patient admits to back pain that is worse on the Right > Left with myalgias but she denies arthralgias. Skin: Patient denies rash, abscess or jaundice. Psych: Patient denies symptoms of uncontrolled depression or anxiety. Neuro: Patient admits to generalized weakness but she denies headache, paresthesias or focal neurologic weakness. Allergy: Patient denies lip swelling, tongue swelling or urticaria. Hematology: Patient denies easy bleeding or easy bruisability. Endocrinology: Patient denies polyu (more content not included)... Normal [facility] Magnesiumon 07-16-2024 Magnesium [Mass/Vol] 2.2 mg/dL Normal 1.6-2.6 [facility] Comment on above: Performed By: #### L 501.5200, L501.9520, L100.0100, L500.4050, L501.2300 #### [facility] [address] [place], [address] Phosphoruson 07-16-2024 Phosphate [Mass/Vol] 2.5 mg/dL Normal 2.5-4.9 [facility] Comment on above: Performed By: #### L 501.5200, L501.9520, L100.0100, L500.4050, L501.2300 #### [facility] [address] [place], [address] Strep pneumoniae Antig(UR,CS F)on 07-16-2024 STPAG Negative Urine Presumptive negative for pneumococcal pneumonia, suggesting no current or recent pneumococcal infection. Infection due to S pneumoniae cannot be ruled out since the antigen present in the sample may be below the detection limit of the test. Strep pneumo Test Negative URINE (See interpretation below) Normal [facility] Comment on above: Performed By: #### L 501.5200, L500.2500, L501.2300 #### [facility] [address] [place], [address] Thyroid Stim Hormone (TSH)on 07-16-2024 TSH 0.444 uIU/mL Normal 0.358-3.740 [facility] Comment on above: Performed By: #### L 501.5200, L501.9520, L100.0100, L500.4050, L501.2300 #### [facility] [address] [place], [address] 12 Lead EKGon 07-15-2024 12 Lead EKG [facility] Cardiovascular Services [address] [place] [address] 12 Lead EKG 07/15/24 1607 MR#: [id number] Acct: [id number] Name: SAVANNAH IRVIN Rep #: [id number] : 1965 59 From: Carl Richmond MD Attending Dr: Dr. Jama Bustamante MD Status: ADM IN Ordering Dr: Queenie Herrera DO Date: 07/15/24 Location: [facility] Sex: F C Admitted: 07/15/24 Test Reason : Blood Pressure : */* mmHG Vent. Rate : 95 BPM Atrial Rate : 95 BPM P-R Int : 146 ms QRS Dur : 90 ms QT Int : 388 ms P-R-T Axes : 80 80 82 degrees QTcB Int : 487 ms Normal sinus rhythm Right atrial enlargement Nonspecific ST abnormality Prolonged QT Abnormal ECG Confirmed by CARL RICHMOND MD ([id number]), book or script editor JACEY MARK ([id number]) on 07/17/2024 8:40:49 AM Referred By: Confirmed By: CARL RICHMOND MD 07/17/24 0840 Date Carl Richmond MD CC: Dr. Queenie Herrera DO; Dr. Ivette Welsh MD; Dr. Jama Bustamante MD Signed Normal [facility] Abdomen/Pelvis W IV Cont ONL Yon 07-15-2024 Abdomen/Pelvis W IV Cont ONLY [facility] Imaging Services [address] [place] [address] Abdomen/Pelvis W IV Cont ONLY MR#: [id number] Acct: [id number] Name: SAVANNAH IRVIN SRIDHAR Rep #: [id number] : 1965 F 59 From: Javon cheung MD PCP: Dr. Ivette Welsh MD Status: REG ER Study: Abdomen/Pelvis W IV Cont ONLY Date of Exam: Exam# [id number] Ordering Dr: Queenie Herrera DO [id number] STUDY: CT ABDOMEN AND PELVIS WITH CONTRAST REASON FOR EXAM: Female, 59 years old. Back pain RADIATION DOSAGE (If Supplied By Facility): CTDIvol = ( 22.47 ) mGy, DLP = ( 889.96 ) mGycm TECHNIQUE: Transaxial images were obtained from the dome of the diaphragm to the symphysis pubis without oral contrast. ml of 100mL Isovue-370 contrast was administered. Sagittal and coronal images were reconstructed. Individualized dose optimization techniques were used for this CT. COMPARISON: CT of abdomen and pelvis dated February 17, 2016. CTA of the chest dated July 15, 2024 FINDINGS: Lung findings on the CT of the chest report. Normal liver. There are surgical clips in the gallbladder fossa consistent with a prior cholecystectomy. Mild postcholecystectomy dilatation of the CBD and intrahepatic biliary ducts. No liver masses or cirrhotic changes. No visualized CBD stone by CT criteria. No hydronephrosis or renal masses or large radiopaque kidney stones. Atherosclerotic calcification of the intraparenchymal left renal artery noted. Normal spleen. Normal pancreas. Normal bilateral adrenal glands. There is moderate cortical atrophy of the right kidney, consistent with chronic medical renal disease. There is mild cortical atrophy of the left kidney, consistent with chronic medical renal disease. No hydronephrosis is present. There is a small hiatal hernia. Normal small intestine. A few scattered colonic diverticula are present without evidence of acute inflammation. No visualized colonic masses or wall thickening. No bowel obstruction is present. The appendix is visualized and appears normal. There is diffuse atherosclerotic calcification of the abdominal aorta, without a demonstrated aneurysm. Moderate atherosclerotic plaque and stenosis and chronic mural thrombus is present in the bilateral common iliac arteries. Similar findings are seen in the bilateral internal iliac arteries with severe atherosclerotic stenosis and poor enhancement due to significant and chronic disease. No demonstrated aortic aneurysm or dissection or active hemorrhaging or periaortic inflammation. Normal inferior vena cava. Normal retroperitoneum. Normal urinary bladder. Patchy hypodensity and heterogeneity is seen in the uterine fundus which was not seen on the prior study and could be related to degenerated fibroids or an nonspecified endometrial myometrial process not assessed by CT. Correlate with pelvic ultrasound or MRI of the pelvis and assessment and physical exam by gynecology to ensure no underlying malignancy is present. Normal abdominal wall. There are diffuse degenerative changes of the visualized lumbar spine. CT/Abdomen/Pelvis W IV Cont ONLY IMPRESSION: 1. Moderate to severe atherosclerotic plaque and chronic mural thrombus and stenosis of the bilateral common iliac and internal iliac arteries 2. No aortic dissection or aneurysm or active hemorrhaging 3. Patchy hypodensity and heterogeneity is seen in the uterine fundus which was not seen on the prior study and could be related to degenerated fibroids or an nonspecified endometrial myometrial process not assessed by CT. Correlate with pelvic ultrasound or MRI of the pelvis and assessment and physical exam by gynecology to ensure no underlying malignancy is present. 4. A few scattered colonic diverticula are present without evidence of acute inflammation. No visualized colonic masses or wall thickening. No bowel obstruction is present. The appendix is visualized and appears normal. Electronically Signed: Javon Neumann MD at 21:03 EST Reading Location ID and State: [facility] / [place] , Service support , CC: Dr. Queenie Herrera DO; Dr. Ivette Welsh MD Paradichlorobenzene Machine Operator: Signed Normal [facility] CPK Total, Creatine Kinaseon 07-15-2024 CPK TOTAL 44 U/L Normal 26-192 [facility] Comment on above: Order Comment: 'TROP ' Serial specimen #1, #2 or #3: 1 Performed By: #### L 100.0100 #### [facility] [address] [place], [place], [id number] CTA Chest W/WO Contraston CTA Chest W/WO Contrast [facility] Imaging Services [address] [place], [place] [address] CTA Chest W/WO Contrast MR#: [id number] Acct: [id number] Name: SAVANNAH IRVIN SRIDHAR Rep #: [id number] : 1965 F 59 From: Javon cheung MD PCP: Dr. Ivette Welsh MD Status: [facility] ER Study: CTA Chest W/WO Contrast Date of Exam: 07/15/24 Exam# [id number] Ordering Dr: Queenie Herrera DO [id number] STUDY: CTA CHEST REASON FOR EXAM: Female, 59 years old. SOB, concern for PE RADIATION DOSAGE (If Supplied By Facility): CTDIvol = ( 19.88 ) mGy, DLP = ( 448.39 ) mGycm TECHNIQUE: The examination was performed with the intravenous administration of IV 100mL Isovue-370. Post-processing of the angiographic images was performed, with multiplanar reformation and 3D reconstruction. Individualized dose optimization techniques were used for this CT. COMPARISON: CTA of the chest dated June 04, 2023. Chest x-ray dated July 07, 2024 FINDINGS: Mild cystic emphysematous changes are present bilaterally with scattered interstitial fibrotic opacities. No demonstrated consolidation or active pulmonary edema or pleural effusion. No pneumothorax. No visualized masses or nodules or spiculated lesions on the current study. [place]-shaped groundglass edema with crowding of the bronchovascular structures is present in the medial basilar segment of the right lower likely representing developing volume overload or pneumonia see images 50 through 64/235 series 2. Interval development of a small 6.3 mm peripheral arterial branch focal aneurysm in the medial retrocardiac region of the right lower lobe see images 46 through 50/235 series 2. No visualized arteriovenous malformation. Small amounts of air are present in the pulmonary trunk related to recent IV placement and contrast injection. Normal enhancement of the main pulmonary artery and right and left pulmonary arteries. Normal enhancement of the bilateral peripheral pulmonary arteries. There is no demonstrated pulmonary embolism. There is atherosclerotic calcification of the aortic arch with tortuosity. There is no demonstrated aortic dissection. Normal heart and pericardium. There are calcifications of the coronary arteries. Normal mediastinum. Normal hilar regions. Normal visualized trachea and bronchi. The lungs are well expanded. Normal pleura. Normal chest wall structures. There are degenerative changes of thoracic spine. Included upper abdomen: Small hiatal hernia noted. The remaining visualized structures are unremarkable. CT/CTA Chest W/WO Contrast IMPRESSION: 1. [place]-shaped groundglass edema with crowding of the bronchovascular structures is present in the medial basilar segment of the right lower likely representing developing volume overload or pneumonia see images 50 through 64/235 series 2. 2. Interval development of a small 6.3 mm peripheral arterial branch focal aneurysm in the medial retrocardiac region of the right lower lobe see images 46 through 50/235 series 2. No visualized arteriovenous malformation. This can be assessed by pulmonology or cardiothoracic surgery service consultation if clinically desired but is not felt to be significant. No demonstrated pulmonary embolism or arterial dissection. Electronically Signed: Javon Neumann MD at 20:17 EST , CC: Dr. Queenie Herrera DO; Dr. Ivette Welsh MD Paradichlorobenzene Machine Operator: Signed Normal [facility] Chest PA and Lateralon 07-15 Chest PA and Lateral [facility] Imaging Services [address] [place] [address] Chest PA and Lateral MR#: [id number] Acct: [id number] Name: SAVANNAH IRVIN Rep #: [id number] : 1965 F 59 From: Javon cheung MD PCP: Dr. Ivette Welsh MD Status: [facility] ER Study: Chest PA and Lateral Date of Exam: 07/15/24 Exam# [id number] Ordering Dr: Queenie Herrera DO [id number] STUDY: X-RAY CHEST REASON FOR EXAM: Female, 59 years old. cough TECHNIQUE: PA and lateral views of the chest. COMPARISON: None. FINDINGS: No visualized consolidation. COPD/emphysematous changes/interstitial lung disease. There is no demonstrated pleural abnormality. Normal size heart. Normal mediastinum and ashley. Normal visualized pulmonary arteries. There is atherosclerotic calcification of the aortic arch with tortuosity. There are diffuse degenerative changes of the visualized thoracic spine. Normal visualized ribs, clavicles, and shoulders. There is no demonstrated abnormality of the visualized soft tissue structures of the upper abdomen. RAD/Chest PA and Lateral IMPRESSION: 1. COPD/emphysematous changes/interstitial lung disease Electronically Signed: Javon Neumann MD at 18:00 EST Reading Location ID and State: [facility] / [place] , Service support , CC: Dr. Queenie Herrera, ; Dr. Ivette Welsh MD Paradichlorobenzene Machine Operator: Signed Normal [facility] Comprehensive Metabolic Prof mdon 07-15-2024 Albumin [Mass/Vol] 3.1 g/dL Low 3.2-5.0 [facility] Comment on above: Performed By: #### L 501.5200, L500.2500, L501.2300 #### [facility] [address] [place], [address] Albumin/Globulin [Mass ratio] 0.8 {ratio} Low 0.9-2.4 [facility] Comment on above: Performed By: #### L 501.5200, L500.2500, L501.2300 #### [facility] [address] [place], [address] ALK P 101 U/L Normal 45-117 [facility] Comment on above: Performed By: #### L 501.5200, L500.2500, L501.2300 #### [facility] [address] [place], [address] ALT [Catalytic activity/Vol] 15 U/L Normal 13-56 [facility] Comment on above: Performed By: #### L 501.5200, L500.2500, L501.2300 #### [facility] [address] [place], [address] AST [Catalytic activity/Vol] 16 U/L Normal 15-37 [facility] Comment on above: Performed By: #### L 501.5200, L500.2500, L501.2300 #### [facility] [address] [place], [address] Bilirubin [Mass/Vol] 0.40 mg/dL Normal 0.20-1.00 [facility] Comment on above: Result Comment: For patients on eltrombopag therapy, use of Dimension [facility] TBIL is not recommended. Performed By: #### L 501.5200, L500.2500, L501.2300 #### [facility] [address] [place], [address] BUN/CRE 10.9 RATIO Normal 10-20 [facility] Comment on above: Performed By: #### L 501.5200, L500.2500, L501.2300 #### [facility] [address] [place], [address] CA,Total 8.6 mg/dL Normal 8.5-10.1 [facility] Comment on above: Performed By: #### L 501.5200, L500.2500, L501.2300 #### [facility] [address] [place], [address] Chloride [Moles/Vol] 99 mmol/L Normal 98-107 [facility] Comment on above: Performed By: #### L 501.5200, L500.2500, L501.2300 #### [facility] [address] [place], [address] CO2 [Moles/Vol] 28.0 mmol/L Normal 21.0-32.0 [facility] Comment on above: Performed By: #### L 501.5200, L500.2500, L501.2300 #### [facility] [address] [place], [address] Creatinine [Mass/Vol] 0.82 mg/dL Normal 0.55-1.02 [facility] Comment on above: Result Comment: The validity of the calculated GFR GFRAA in patients over 70 years has not been determined. Clinical correlation is essential. Performed By: #### L 501.5200, L500.2500, L501.2300 #### [facility] [address] [place], [address] ECRCL 74.21 ml/min Normal [facility] Comment on above: Performed By: #### L 501.5200, L500.2500, L501.2300 #### [facility] [address] [place], [address] EST GFR - AA 92 mL/min Normal >60 [facility] Comment on above: Result Comment: Afri can Mosotho GFR Calc Performed By: #### L 501.5200, L500.2500, L501.2300 #### [facility] [address] [place], [address] GAP 8 Normal 5-15 [facility] Comment on above: Performed By: #### L 501.5200, L500.2500, L501.2300 #### [facility] [address] [place], [address] GFR/1.73 sq M.predicted among non-blacks MDRD (S/P/Bld) [Vol rate/Area] 76 mL/min/{1.73_m2} Normal >60 [facility] Comment on above: Result Comment: Non- GFR Calc Performed By: #### L 501.5200, L500.2500, L501.2300 #### [facility] [address] [place], [address] Globulin (S) [Mass/Vol] 4.1 g/dL Normal 2.2-4.[address] [facility] Comment on above: Performed By: #### L 501.5200, L500.2500, L501.2300 #### [facility] [address] [place], [address] Glucose [Mass/Vol] 112 mg/dL High 74-106 [facility] Comment on above: Result Comment: Fast ing Glucose result from 100 to 125 mg/dL suggests IMPAIRED HOMEOSTASIS per A.D.A. criteria. Performed By: #### L 501.5200, L500.2500, L501.2300 #### [facility] [address] [place], [address] Potassium [Moles/Vol] 3.2 mmol/L Low 3.5-5.1 [facility] Comment on above: Performed By: #### L 501.5200, L500.2500, L501.2300 #### [facility] [address] [place], [address] Sodium [Moles/Vol] 135 mmol/L Low 136-145 [facility] Comment on above: Performed By: #### L 501.5200, L500.2500, L501.2300 #### [facility] [address] [place], [address] T PROT 7.2 g/dL Normal 6.4-8.2 [facility] Comment on above: Performed By: #### L 501.5200, L500.2500, L501.2300 #### [facility] [address] [place], [address] Urea nitrogen [Mass/Vol] 9 mg/dL Normal 7-18 [facility] Comment on above: Performed By: #### L 501.5200, L500.2500, L501.2300 #### [facility] [address] [place], [address] Emergency Department Summary on 07-15-2024 Emergency Department Summary [facility] Medical Records Department [address] [place] [address] Emergency Department Summary 07/15/24 MR#: [id number] Acct: [id number] Name: SAVANNAH IRVIN Rep #: [id number] : 1965 59 From: Queenie Herrera DO PCP: Dr. Ivette Welsh MD Status:REG ER Location: ED HPI History of Present Illness Chief Complaint: Dizziness Informant: patient Narrative Narrative: Patient is a 59-year-old female with history of COPD, tobacco use, pulmonary hypertension, hypertension, hyperlipidemia and kidney stones presenting with generalized malaise, dizziness, nausea, cough, shortness of breath and back pain. Patient states that she has not been feeling good all day is been more fatigued. She tried to go downstairs for the got dizzy feeling she was going to pass out. She did she has had some increased back pain for the past week with the right worse than the left. She states is her kidneys at her. She also for the past 1 is an intermittent sharp pains in her left lower quadrant. She denies any urinary symptoms such as dysuria or hematuria. She denies any change in her bowel movements but notes it has been a couple days since she had a bowel movement. She has been passing gas. She denies any chest pain or tightness but does feel more short of breath and feels like she is been wheezing more. She is been coughing and nothing comes up but she feels like there is mucus that needs to come out. She denies any URI symptoms. She notes her daughter was sick over [place] and she was around her. She does report a mild headache. No fevers reported. Does not take anything for symptoms prior to arrival. Does take a daily inhaler but no other medications. No other complaints or concerns reported at this time. [facility] Medical History Hypertension Gastroesophageal reflux disease Leukocytosis Acute pyelonephritis Substance abuse Alcohol abuse Chronic pain Kidney stones Smoker Sleep apnea Pulmonary embolism TIA (transient ischemic attack) Stroke/cerebrovascular accident COPD (chronic obstructive pulmonary disease) Asthma Home Medications ???Medication ???Instructions ???Recorded ???Last Taken ???Type albuterol sulfate 2.5 mg/3 mL 2.5 mg (3 mL) inhalation Q4H PRN 10/20/17 02/08/23 Rx (0.083 %) solution for nebulization #25 vials albuterol sulfate 90 mcg/actuation 1 - 2 puff inhalation PRN PRN Sob 05/18/18 02/08/23 History aerosol inhaler (Ventolin HFA) /Or Wheezing epinephrine 0.3 mg/0.3 mL 0.3 mg (0.3 mL) IM X1 ##1 01/21/19 Unknown Rx injection, auto-injector Allergy/AdvReac Type Severity Reaction Status Date / Time peanut Allergy Anaphylaxis Verified 07/15/24 15:02 tree nut (Tree Nut) Allergy Anaphylaxis Verified 07/15/24 15:02 Family History Mother COPD (chronic obstructive pulmonary disease) Hypertension Father Epilepsy Surgical History History of bilateral ligation of fallopian tubes History of cholecystectomy Social History household members: none Smoking Status: Current every day smoker tobacco type: cigarettes alcohol intake: former substance use type: marijuana ROS ROS ED Constitutional Constitutional ED: Reports other Details: fatigue, near syncope ; Denies chills or fever(s) Eyes Eyes: Denies change in vision ENT ENT ED: Denies rhinorrhea or sore throat Cardiovascular Cardiovascular: Denies chest pain Respiratory/Chest Respiratory/Chest: Reports cough and dyspnea; Denies sputum Gastrointestinal Gastrointestinal: Denies abdominal pain, nausea or vomiting Genitourinary Genitourinary ED: Denies dysuria or urinary frequency Musculoskeletal Musculoskeletal: Reports back pain and myalgias Integumentary Denies rash Neurologic Neurologic: Reports weakness; Denies paresthesias Psychiatric Psychiatric: Reports anxiety Hematologic/Lymphatic Hematologic/Lymphatic: Denies easy bleeding or easy bruising EXAM Physical Exam Const Vital Signs: 07/15/24 15:02 07/15/24 16:31 07/15/24 16:31 Temperature 98 F Temperature Source Oral Pulse Rate 100 103 H Respiratory Rate 16 19 H Respiratory Effort Respiratory Pattern Blood Pressure 113/56 L Blood Pressure Mean 75 Pulse Ox 96 94 Oxygen Delivery Method Room Air Room Air Oxygen Flow Rate (L/min) 07/15/24 17:01 07/15/24 17:04 07/15/24 17:13 Temperature 98.7 F Temperature Source Oral Pulse Rate 77 87 85 Respiratory Rate 20 H 20 H 18 Respiratory Effort Respiratory Pattern Blood Pressure 135/90 H 143/83 H Blood Pressure Mean 105 103 Pulse Ox 93 92 93 Oxygen Delive (more content not included)... Normal [facility] H AND P Exam - Hospitaliston 07-15-2024 H&P Exam - Hospitalist [facility] Medical Records Department [address] [place] [address] H P Exam - Hospitalist 07/15/24 2307 MR#: [id number] Acct: [id number] Name: SAVANNAH IRVIN SRIDHAR Rep #: [id number] : 1965 59 From: Albert Hartmann DO PCP: Dr. Ivette Welsh MD Status:ADM IN Location: [place] [address] HPI - General General Date of Admission: 07/15/24 Date of Service: 07/15/24 Chief Complaint: SOB, Wheezing and Dizziness with Near Syncope. HPI Narrative SAVANNAH IRVIN, is a 59 F with a past medical history of essential hypertension, hyperlipidemia, overweight; with BMI of 28.4 this admission with HELIO, cannabis abuse, history of EtOH abuse; patient denies actively drinking at this time, history of ongoing tobacco abuse; with subsequent asthma/COPD, history of PE, history of pulmonary hypertension, history of seizure, history of TIA/CVA, history of peanut allergy (anaphylaxis), history of tree nut allergy (anaphylaxis), MIKIE, history of thrombocytosis, history of renal calculi, history of pyelonephritis, GERD; with history of esophagitis, history of axillary hidradenitis suppurativa, history of eczema, history of cholecystectomy, history of tubal ligation, depression and OA; with chronic low back pain on as needed hydrocodone every 6 hours who presents to [facility] ER complaining of shortness of breath, wheezing and dizziness with a near syncopal event. Ms. Irvin reports her symptoms began approximately 1 day prior to admission with dyspnea on exertion and severe fatigue. Earlier in the day she tried to go down a flight of stairs and got dizzy and fell like she was going to pass out but did not actually lose consciousness. She also admits to persistent wheezing and a nonproductive cough but feels like mucus is stuck that she cannot mobilize. She additionally endorses a history of increased low back pain that is more noticeable on the Right than the Left. She did not attempt any treatment of her problems at home, rather deciding to come in for further evaluation and treatment. There was no report of fever, chills, runny nose, sore throat, chest pain, abdominal pain, nausea, vomiting, diarrhea or dysuria but she does admit to generalized weakness and constipation for the past few days along with patient sensing food is getting stuck in her esophagus intermittently and having to force herself to vomit to clear it. In the ER she was noted to have a CT scan of the chest that was negative for PE but did reveal crescent shaped ground-glass edema with crowding of the bronchovascular structures present to the medial basilar segment of the Right lower lobe likely due to developing Pneumonia complicated by additional CT evidence of patchy hypodensity and heterogeneity in the uterine fundus which was not seen on prior study could be related to a degenerated fibroids and/or nonspecified endometrial or myometrial process not assessed by CT with correlation recommended with pelvic ultrasound or MRI of the pelvis and recommendation for referral to gynecology to ensure no underlying malignancy is present compounded by clinical evidence of AE COPD with Acute Respiratory Insufficiency with Leukocytosis of 11.4 K and Hypokalemia of 3.2 mmol/L present on admission in addition to Near Syncopal event with persistent Generalized Weakness and suspected Esophageal Stenosis and she was then admitted to the PCU for ongoing care for stay that is expected to extend beyond 2 midnights. [facility] Medical History Hypertension Gastroesophageal reflux disease Leukocytosis Acute pyelonephritis Substance abuse Alcohol abuse Chronic pain Kidney stones Smoker Sleep apnea Pulmonary embolism TIA (transient ischemic attack) Stroke/cerebrovascular accident COPD (chronic obstructive pulmonary disease) Asthma Home Medications ???Medication ???Instructions ???Recorded ???Last Taken ???Type albuterol sulfate 2.5 mg/3 mL 2.5 mg (3 mL) inhalation Q4H PRN 10/20/17 02/08/23 Rx (0.083 %) solution for nebulization #25 vials albuterol sulfate 90 mcg/actuation 1 - 2 puff inhalation PRN PRN Sob 05/18/18 02/08/23 History aerosol inhaler (Ventolin HFA) /Or Wheezing epinephrine 0.3 mg/0.3 mL 0.3 mg (0.3 mL) IM X1 ##1 01/21/19 Unknown Rx injection, auto-injector Allergy/AdvReac Type Severity Reaction Status Date / Time peanut Allergy Anaphylaxis Verified 07/15/24 15:02 tree nut (Tree Nut) Allergy Anaphylaxis Verified 07/15/24 15:02 Family History Mother COPD (chronic obstructive pulmonary disease) Hypertension Father Epilepsy Surgical History History of bilateral ligation of fallopian tubes History of cholecystectomy Social History (Review (more content not included)... Normal [facility] L501.4020on 07-15-2024 TROPONIN-I HS 15 pg/mL Normal 3.0-54.0 [facility] Comment on above: Order Comment: 'TROP ' Serial specimen #1, #2 or #3: 1 Result Comment: Plea se Note: New Test Units and Gender Specific Reference Ranges. For more information see Policy Stat Procedure [facility] High Sensitivity Troponin (TNIH) and attachments. Performed By: #### L 100.0100 #### [facility] [address] [place], [address] Lipaseon 07-15-2024 Lipase [Catalytic activity/Vol] 22 U/L Normal 13-75 [facility] Comment on above: Result Comment: Plea se note: LIPASE revised reference range effective 22. New Lipase methodology. Expected to produce lower values than the previous assay method. NEW Reference Range: 13 - 75 U/L Performed By: #### L 501.5200, L500.2500, L501.2300 #### [facility] [address] [place], [address] M100.678on 07-15-2024 M100.678 Pending SARS-CoV-2 (COVID 19) Negative INFLUENZA A Negative INFLUENZA B Negative RSV PCR Negative Normal [facility] Comment on above: Performed By: #### L 100.0100 #### [facility] [address] [place], [address] Magnesiumon 07-15-2024 Magnesium [Mass/Vol] 1.8 mg/dL Normal 1.6-2.6 [facility] Comment on above: Order Comment: 'TROP ' Serial specimen #1, #2 or #3: 1 Performed By: #### L 100.0100 #### [facility] [address] [place], [address] Urinalysis, Completeon 07-15 CAST,HYALINE 0-5 SEEN Normal 0-5 [facility] Comment on above: Order Comment: CLEAN CATCH Performed By: #### L 100.0100 #### [facility] [address] [place], [address] RBC 0-5 SEEN Normal 0-5 [facility] Comment on above: Order Comment: CLEAN CATCH Performed By: #### L 100.0100 #### [facility] [address] [place], [address] WBC 0-5 SEEN Normal 0-5 [facility] Comment on above: Order Comment: CLEAN CATCH Performed By: #### L 100.0100 #### [facility] [address] [place], [address] BACTERIA 1+ /hpf Normal None Seen [facility] Comment on above: Order Comment: CLEAN CATCH Performed By: #### L 100.0100 #### [facility] [address] [place], [address] EPI,SQUAMOUS 0-5 SEEN Normal 5-10 [facility] Comment on above: Order Comment: CLEAN CATCH Performed By: #### L 100.0100 #### [facility] [address] [place], [address] Mucus Ql (Urine sed) 0 SEEN Normal [facility] Comment on above: Order Comment: CLEAN CATCH Performed By: #### L 100.0100 #### [facility] [address] [place], [address] Urine Cultureon 04-30-2024 URC Escherichia coli [place] Count >100,000 Escherichia coli: REACTION Ampicillin Islt SYLVESTER >=32 Ampicillin+Sulbac Islt SYLVESTER >=32 R ceFAZolin Islt SYLVESTER <=4 S Cefepime Islt SYLVESTER <=0.12 S cefTRIAXone Islt SYLVESTER <=0.25 S Ciprofloxacin Islt SYLVESTER <=0.25 S B-Lactamase Extended Susc Islt NEG Gentamicin Islt SYLVESTER <=1 S Imipenem Islt SYLVESTER <=0.25 S levoFLOXacin Islt SYLVESTER 1 I Nitrofurantoin Islt SYLVESTER <=16 S Pip+Tazo Islt SYLVESTER <=4 S Tobramycin Islt SYLVESTER <=1 S TMP SMX Islt SYLVESTER <=20 S Normal [facility] Comment on above: Performed By: #### L 100.0100 #### [facility] [address] [place], [address] Basic Metabolic Profile (BMP )on 04-28-2024 BUN/CRE 20.5 RATIO High 05-07 [facility] Comment on above: Performed By: #### L 501.5200, L500.2500, L501.2300 #### [facility] [address] [place], [address] CA,Total 9.3 mg/dL Normal 8.5-10.1 [facility] Comment on above: Performed By: #### L 501.5200, L500.2500, L501.2300 #### [facility] [address] [place], [address] Chloride [Moles/Vol] 98 mmol/L Normal 98-107 [facility] Comment on above: Performed By: #### L 501.5200, L500.2500, L501.2300 #### [facility] [address] [place], [address] CO2 [Moles/Vol] 30.0 mmol/L Normal 21.0-32.0 [facility] Comment on above: Performed By: #### L 501.5200, L500.2500, L501.2300 #### [facility] [address] [place], [address] Creatinine [Mass/Vol] 0.88 mg/dL Normal 0.55-1.02 [facility] Comment on above: Result Comment: The validity of the calculated GFR GFRAA in patients over 70 years has not been determined. Clinical correlation is essential. Performed By: #### L 501.5200, L500.2500, L501.2300 #### [facility] [address] [place], [address] ECRCL 69.59 ml/min Normal [facility] Comment on above: Performed By: #### L 501.5200, L500.2500, L501.2300 #### [facility] [address] [place], [address] EST GFR - AA 85 mL/min Normal >60 [facility] Comment on above: Result Comment: Afri can [place] GFR Calc Performed By: #### L 501.5200, L500.2500, L501.2300 #### [facility] [address] [place], [address] GAP 7 Normal 5-15 [facility] Comment on above: Performed By: #### L 501.5200, L500.2500, L501.2300 #### [facility] [address] [place], [address] GFR/1.73 sq M.predicted among non-blacks MDRD (S/P/Bld) [Vol rate/Area] 71 mL/min/{1.73_m2} Normal >60 [facility] Comment on above: Result Comment: Non- GFR Calc Performed By: #### L 501.5200, L500.2500, L501.2300 #### [facility] [address] [place], [address] Glucose [Mass/Vol] 107 mg/dL High 74-106 [facility] Comment on above: Result Comment: Fast ing Glucose result from 100 to 125 mg/dL suggests IMPAIRED HOMEOSTASIS per A.D.A. criteria. Performed By: #### L 501.5200, L500.2500, L501.2300 #### [facility] [address] [place], [address] Potassium [Moles/Vol] 3.2 mmol/L Low 3.5-5.1 [facility] Comment on above: Performed By: #### L 501.5200, L500.2500, L501.2300 #### [facility] [address] [place], [address] Sodium [Moles/Vol] 135 mmol/L Low 136-145 [facility] Comment on above: Performed By: #### L 501.5200, L500.2500, L501.2300 #### [facility] [address] [place], [address] Urea nitrogen [Mass/Vol] 18 mg/dL Normal 7-18 [facility] Comment on above: Performed By: #### L 501.5200, L500.2500, L501.2300 #### [facility] [address] [place], [address] CBC W/Diff, Automatedon 04-18 Absolute Lymph 2.04 X10 3/uL Normal 0.83-4.51 [facility] Comment on above: Performed By: #### L 501.5200, L500.2500, L501.2300 #### [facility] [address] [place], [address] Absolute Neut 5.8 X10 3/uL Normal 2.0-7.7 [facility] Comment on above: Performed By: #### L 501.5200, L500.2500, L501.2300 #### [facility] [address] [place], [address] Basophils/100 WBC (Bld) 0.6 % Normal 0-[address] [facility] Comment on above: Performed By: #### L 501.5200, L500.2500, L501.2300 #### [facility] [address] [place], [address] Eosinophils/100 WBC (Bld) 1.1 % Normal 0-5 [facility] Comment on above: Performed By: #### L 501.5200, L500.2500, L501.2300 #### [facility] [address] [place], [address] Erythrocyte distribution width (RBC) [Ratio] 13.6 % Normal 11.6-14.6 [facility] Comment on above: Performed By: #### L 501.5200, L500.2500, L501.2300 #### [facility] [address] [place], [address] Hematocrit (Bld) [Volume fraction] 46.3 % Normal 37-47 [facility] Comment on above: Performed By: #### L 501.5200, L500.2500, L501.2300 #### [facility] [address] [place], [address] Hemoglobin (Bld) [Mass/Vol] 14.7 g/dL Normal 12.0-15.0 [facility] Comment on above: Performed By: #### L 501.5200, L500.2500, L501.2300 #### [facility] [address] [place], [address] IG% 0.300 Normal 0.0-0.9 [facility] Comment on above: Result Comment: IG% - Immature Granulocytes (promyelocytes, myelocytes and metamyelocytes) > 1% indicates that a LEFT SHIFT is Present. Performed By: #### L 501.5200, L500.2500, L501.2300 #### [facility] [address] [place], [address] Lymphocytes/100 WBC (Bld) 22.8 % Normal 19-41 [facility] Comment on above: Performed By: #### L 501.5200, L500.2500, L501.2300 #### [facility] [address] [place], [address] MCH (RBC) [Entitic mass] 28.1 pg Normal 27.0-32.0 [facility] Comment on above: Performed By: #### L 501.5200, L500.2500, L501.2300 #### [facility] [address] [place], [address] MCHC (RBC) [Mass/Vol] 31.7 g/dL Low 32-36 [facility] Comment on above: Performed By: #### L 501.5200, L500.2500, L501.2300 #### [facility] [address] [place], [address] MCV (RBC) [Entitic vol] 88.4 fL Normal 81-99 [facility] Comment on above: Performed By: #### L 501.5200, L500.2500, L501.2300 #### [facility] [address] [place], [address] Monocytes/100 WBC (Bld) 10.7 % High 0-[address] [facility] Comment on above: Performed By: #### L 501.5200, L500.2500, L501.2300 #### [facility] [address] [place], [address] Neutrophils/100 WBC (Bld) 64.5 % Normal 47-70 [facility] Comment on above: Performed By: #### L 501.5200, L500.2500, L501.2300 #### [facility] [address] [place], [address] Nucleated RBC (Bld) [#/Vol] 0 10*3/uL Normal 0-5 [facility] Comment on above: Performed By: #### L 501.5200, L500.2500, L501.2300 #### [facility] [address] [place], [address] Platelet mean volume (Bld) [Entitic vol] 9.6 fL Normal 6.2-12.0 [facility] Comment on above: Performed By: #### L 501.5200, L500.2500, L501.2300 #### [facility] [address] [place], [address] Platelets (Bld) [#/Vol] 380 10*3/uL Normal 150-450 [facility] Comment on above: Performed By: #### L 501.5200, L500.2500, L501.2300 #### [facility] [address] [place], [address] RBC (Bld) [#/Vol] 5.24 10*6/uL Normal 4.2-5.4 [facility] Comment on above: Performed By: #### L 501.5200, L500.2500, L501.2300 #### [facility] [address] [place], [address] RDW SD 44.0 fl High 35.1-43.9 [facility] Comment on above: Performed By: #### L 501.5200, L500.2500, L501.2300 #### [facility] [address] [place], [address] WBC (Bld) [#/Vol] 9.0 10*3/uL Normal 4.4-11.0 [facility] Comment on above: Performed By: #### L 501.5200, L500.2500, L501.2300 #### [facility] [address] [place], [address] Emergency Department Summary on 04-28-2024 Emergency Department Summary [facility] Medical Records Department [address] [place] [address] Emergency Department Summary 04/28/24 MR#: [id number] Acct: [id number] Name: SAVANNAH IRVIN Rep #: [id number] : 1965 58 From: Tereso Bajwa MD PCP: Dr. Ivette Welsh MD Status:REG ER Location: ED HPI History of Present Illness Chief Complaint: Flank Pain Detail of Chief Complaint: Right flank pain, odor to urine and cloudy urine Informant: patient Onset/Context/Timing Onset: Days Context: Gradual Onset Timing: Continuous Quality: Pain Location: Left flank Current Severity: Mild Maximum Severity: Moderate Worsened by: Movement Relieved by: Nothing Associated Symptoms Associated Symptoms: Urinary symptoms Narrative Narrative: Patient is a 58-year-old woman. She has history of hyperlipidemia, hypertension, thrombocytosis, iron deficiency anemia, alcohol disorder who presents with odor to her urine with frequency left flank pain. She denies history of renal ureterolithiasis. She denies fever, chills night sweats. She denies vomiting or diarrhea. She does endorse nausea. She denies history of trauma. She denies respiratory symptoms. Denies cardiac symptoms. She has had urinary tract infection in the past as well as pyelonephritis. She is not had an infection for some time. Prior similar symptoms: Yes Recent Illness/Hospitalizatio n: No PFSH PFSH Medical History Hypertension Gastroesophageal reflux disease Leukocytosis Acute pyelonephritis Substance abuse Alcohol abuse Chronic pain Kidney stones Smoker Sleep apnea Pulmonary embolism TIA (transient ischemic attack) Stroke/cerebrovascular accident COPD (chronic obstructive pulmonary disease) Asthma Home Medications ???Medication ???Instructions ???Recorded ???Last Taken ???Type albuterol sulfate 2.5 mg/3 mL 2.5 mg (3 mL) inhalation Q4H PRN 10/20/02/08/23 Rx (0.083 %) solution for nebulization #25 vials albuterol sulfate 90 mcg/actuation 1 - 2 puff inhalation PRN PRN Sob 05/18/18 02/08/23 History aerosol inhaler (Ventolin HFA) /Or Wheezing epinephrine 0.3 mg/0.3 mL 0.3 mg (0.3 mL) IM X1 ##1 01/21/19 Unknown Rx injection, auto-injector cephalexin 500 mg capsule 500 mg PO Q12 #14 CAPSULES 12/30/23 Unknown Rx cephalexin 500 mg capsule 500 mg PO Q6 #40 CAPSULES 04/28/24 Unknown Rx hydrocodone-acetaminop hen 5-325mg 1 tab PO Q6H PRN PRN Pain 3 days 04/28/24 Unknown Rx 5mg-325mg #10 TABLETS Allergy/AdvReac Type Severity Reaction Status Date / Time peanut Allergy Anaphylaxis Verified 04/28/24 21:02 tree nut (Tree Nut) Allergy Anaphylaxis Verified 04/28/24 21:02 Family History Mother COPD (chronic obstructive pulmonary disease) Hypertension Father Epilepsy Surgical History History of bilateral ligation of fallopian tubes History of cholecystectomy Social History household members: none Smoking Status: Current every day smoker tobacco type: cigarettes alcohol intake: former substance use type: marijuana ROS ROS ED Constitutional Constitutional ED: Denies chills, fever(s) or subjective Eyes Eyes: Denies blurry vision or change in vision ENT ENT ED: Denies ear pain or rhinorrhea Cardiovascular Cardiovascular: Denies chest pain or palpitations Respiratory/Chest Respiratory/Chest: Denies cough, dyspnea or dyspnea on exertion Gastrointestinal Gastrointestinal: Reports abdominal pain and nausea; Denies diarrhea, melena or vomiting Genitourinary Genitourinary ED: Denies dysuria or urinary frequency Musculoskeletal Musculoskeletal: Denies arthralgias or myalgias Integumentary Denies rash Hematologic/Lymphatic Hematologic/Lymphatic: Reports systems reviewed and no addt'l complaints, except as documented EXAM Physical Exam Const Vital Signs: 04/28/24 21:02 04/28/24 21:03 Temperature 97.6 F L 98 F Temperature Source Oral Oral Pulse Rate 102 H 78 Respiratory Rate 22 H 16 Blood Pressure 181/89 H 138/74 H Blood Pressure Mean 119 95 Pulse Ox 100 98 Oxygen Delivery Method Room Air Room Air Positive well nourished and well developed Constitutional Narrative: Patient does not appear well. She is uncomfortable walking from the restroom to her room. General Appearance ED: well developed; Negative for cyanotic, diaphoretic or NAD HEENT Reports moist mucous membranes HEENT Narrative: Head is atraumatic normocephalic. Ears normal. Nares patent. Eyes PERRL and EOMs intact bilaterally General Eye ED: Negative for pale conjunctiva or scleral icterus Neck no lymphadenopathy, supple and no JVD Resp normal respiratory e (more content not included)... Normal [facility] Urinalysis, Completeon 04-28 EPI,RENAL 0-5 SEEN Normal 0-5 [facility] Comment on above: Order Comment: CLEAN CATCH Performed By: #### L 501.5200, L500.2500, L501.2300 #### [facility] [address] [place], [address] BACTERIA 4+ /hpf Normal None Seen [facility] Comment on above: Order Comment: CLEAN CATCH Performed By: #### L 501.5200, L500.2500, L501.2300 #### [facility] [address] [place], [address] EPI,SQUAMOUS 0-5 SEEN Normal 5-10 [facility] Comment on above: Order Comment: CLEAN CATCH Performed By: #### L 501.5200, L500.2500, L501.2300 #### [facility] [address] [place], [address] RBC 5-10 SEEN Normal 0-5 [facility] Comment on above: Order Comment: CLEAN CATCH Performed By: #### L 501.5200, L500.2500, L501.2300 #### [facility] [address] [place], [address] WBC 25-50 SEEN Normal 0-5 [facility] Comment on above: Order Comment: CLEAN CATCH Performed By: #### L 501.5200, L500.2500, L501.2300 #### [facility] [address] [place], [address] Mucus Ql (Urine sed) 0 SEEN Normal [facility] Comment on above: Order Comment: CLEAN CATCH Performed By: #### L 501.5200, L500.2500, L501.2300 #### [facility] [address] [place], [address] Urine Cultureon 01-02-2024 [facility] Presumptive E. coli [place] Count 11,000-25,000 Presumptive E. coli: REACTION Ampicillin Islt SYLVESTER >=32 R Ampicillin+Sulbac Islt SYLVESTER 16 I ceFAZolin Islt SYLVESTER <=4 S Cefepime Islt SYLVESTER <=0.12 S cefTRIAXone Islt SYLVESTER <=0.25 S Ciprofloxacin Islt SYLVESTER <=0.25 S Ertapenem Islt SYLVESTER <=0.12 S B-Lactamase Extended Susc Islt NEG Gentamicin Islt SYLVESTER <=1 S Imipenem Islt SYLVESTER <=0.25 S levoFLOXacin Islt SYLVESTER 1 S Nitrofurantoin Islt SYLVESTER <=16 S Pip+Tazo Islt SYLVESTER <=4 S Tobramycin Islt SYLVESTER <=1 S TMP SMX Islt SYLVESTER >=320 R Normal [facility] Comment on above: Performed By: #### L 100.0100 #### [facility] [address] [place], [address] Abdomen/Pelvis without Conto n 12-30-2023 Abdomen/Pelvis without Cont [facility] Imaging Services [address] [place] [address] Abdomen/Pelvis without Cont MR#: [id number] Acct: [id number] Name: SAVANNAH IRVIN SRIDHAR Rep #: [id number] : 1965 F 58 From: Ed [place] PCP: Dr. Ivette Welsh MD Status: REG ER Study: Abdomen/Pelvis without Cont Date of Exam: 12/17 10/09 Exam# [id number] Ordering Dr: Idalia Sanchez MD [id number] STUDY: CT Abdomen And Pelvis W/O Contrast Injection 12/30/2023 9:28 PM REASON FOR EXAM: Female, 58 years old. Abdominal pain right flank pain Individualized dose optimization techniques were used for this CT. COMPARISON: None. TECHNIQUE: CT Abdomen And Pelvis W/O Contrast Injection FINDINGS: There are atherosclerotic calcifications of visualized coronary arteries. The visualized portions of the heart are within normal limits. Normal liver. There are surgical clips in the gallbladder fossa consistent with a prior cholecystectomy. Normal spleen. Normal pancreas. Normal bilateral adrenal glands. No acute findings of the right kidney. Non obstructive 2 mm left renal parenchymal stones. There is a small hiatal hernia. Normal small intestine. Stool throughout the colon. There is non-visualization. 1 of the appendix. There are calcifications of the abdominal aorta. This is consistent for atherosclerotic disease. There is NO abdominal aortic aneurysm. Vascular workup can be obtained based on clinical correlation. Normal inferior vena cava. Subcentimeter mesenteric lymph nodes. Normal urinary bladder. There is atrophy of the uterus. Normal abdominal wall. There are diffuse degenerative changes of the visualized lumbar spine. Old appearing L1 compression deformity. CT/Abdomen/Pelvis without Cont IMPRESSION: (NOT LISTED IN ORDER OF SIGNIFICANCE) Nonobstructive left renal stone. There are surgical clips in the gallbladder fossa consistent with a prior cholecystectomy. Other findings as above. Electronically Signed: Ed Shah MD at 21:30 EDT , CC: Dr. Idalia Sanchez MD; Dr. Ivette Welsh MD Paradichlorobenzene Machine Operator: Signed Normal [facility] Basic Metabolic Profile (BMP )on 12-30-2023 BUN/CRE 15.1 RATIO Normal 10-20 [facility] Comment on above: Performed By: #### L 501.5200, L500.2500, L501.2300 #### [facility] [address] [place], [address] CA,Total 9.3 mg/dL Normal 8.5-10.1 [facility] Comment on above: Performed By: #### L 501.5200, L500.2500, L501.2300 #### [facility] [address] [place], [address] Chloride [Moles/Vol] 104 mmol/L Normal 98-107 [facility] Comment on above: Performed By: #### L 501.5200, L500.2500, L501.2300 #### [facility] [address] [place], [address] CO2 [Moles/Vol] 30.0 mmol/L Normal 21.0-32.0 [facility] Comment on above: Performed By: #### L 501.5200, L500.2500, L501.2300 #### [facility] [address] [place], [address] Creatinine [Mass/Vol] 0.93 mg/dL Normal 0.55-1.02 [facility] Comment on above: Result Comment: The validity of the calculated GFR GFRAA in patients over 70 years has not been determined. Clinical correlation is essential. Performed By: #### L 501.5200, L500.2500, L501.2300 #### [facility] [address] [place], [address] ECRCL 67.35 ml/min Normal [facility] Comment on above: Performed By: #### L 501.5200, L500.2500, L501.2300 #### [facility] [address] [place], [address] EST GFR - AA 80 mL/min Normal >60 [facility] Comment on above: Result Comment: Afri can Mosoth[place] GFR Calc Performed By: #### L 501.5200, L500.2500, L501.2300 #### [facility] [address] [place], [address] GAP 4 Low 5-15 [facility] Comment on above: Performed By: #### L 501.5200, L500.2500, L501.2300 #### [facility] [address] [place], [address] GFR/1.73 sq M.predicted among non-blacks MDRD (S/P/Bld) [Vol rate/Area] 66 mL/min/{1.73_m2} Normal >60 [facility] Comment on above: Result Comment: Non- GFR Calc Performed By: #### L 501.5200, L500.2500, L501.2300 #### [facility] [address] [place], [address] Glucose [Mass/Vol] 112 mg/dL High 74-106 [facility] Comment on above: Result Comment: Fast ing Glucose result from 100 to 125 mg/dL suggests IMPAIRED HOMEOSTASIS per A.D.A. criteria. Performed By: #### L 501.5200, L500.2500, L501.2300 #### [facility] [address] [place], [address] Potassium [Moles/Vol] 3.3 mmol/L Low 3.5-5.1 [facility] Comment on above: Performed By: #### L 501.5200, L500.2500, L501.2300 #### [facility] [address] [place], [address] Sodium [Moles/Vol] 138 mmol/L Normal 136-145 [facility] Comment on above: Performed By: #### L 501.5200, L500.2500, L501.2300 #### [facility] [address] [place], [address] Urea nitrogen [Mass/Vol] 14 mg/dL Normal 7-18 [facility] Comment on above: Performed By: #### L 501.5200, L500.2500, L501.2300 #### [facility] [address] [place], [address] CBC W/Diff, Automatedon 06-07 21-2023 Absolute Lymph 2.99 X10 3/uL Normal 0.83-4.51 [facility] Comment on above: Performed By: #### L 501.5200, L500.2500, L501.2300 #### [facility] [address] [place], [address] Absolute Neut 9.3 X10 3/uL High 2.0-7.7 [facility] Comment on above: Performed By: #### L 501.5200, L500.2500, L501.2300 #### [facility] [address] [place], [address] Basophils/100 WBC (Bld) 0.6 % Normal 0-[address] [facility] Comment on above: Performed By: #### L 501.5200, L500.2500, L501.2300 #### [facility] [address] [place], [address] Eosinophils/100 WBC (Bld) 1.8 % Normal 0-5 [facility] Comment on above: Performed By: #### L 501.5200, L500.2500, L501.2300 #### [facility] [address] [place], [address] Erythrocyte distribution width (RBC) [Ratio] 15.3 % High 11.6-14.6 [facility] Comment on above: Performed By: #### L 501.5200, L500.2500, L501.2300 #### [facility] [address] [place], [address] Hematocrit (Bld) [Volume fraction] 43.1 % Normal 37-47 [facility] Comment on above: Performed By: #### L 501.5200, L500.2500, L501.2300 #### [facility] [address] [place], [address] Hemoglobin (Bld) [Mass/Vol] 13.6 g/dL Normal 12.0-15.0 [facility] Comment on above: Performed By: #### L 501.5200, L500.2500, L501.2300 #### [facility] [address] [place], [address] IG% 0.300 Normal 0.0-0.9 [facility] Comment on above: Result Comment: IG% - Immature Granulocytes (promyelocytes, myelocytes and metamyelocytes) > 1% indicates that a LEFT SHIFT is Present. Performed By: #### L 501.5200, L500.2500, L501.2300 #### [facility] [address] [place], [address] Lymphocytes/100 WBC (Bld) 21.9 % Normal 19-41 [facility] Comment on above: Performed By: #### L 501.5200, L500.2500, L501.2300 #### [facility] [address] [place], [address] MCH (RBC) [Entitic mass] 27.4 pg Normal 27.0-32.0 [facility] Comment on above: Performed By: #### L 501.5200, L500.2500, L501.2300 #### [facility] [address] [place], [address] MCHC (RBC) [Mass/Vol] 31.6 g/dL Low 32-36 [facility] Comment on above: Performed By: #### L 501.5200, L500.2500, L501.2300 #### [facility] [address] [place], [address] MCV (RBC) [Entitic vol] 86.7 fL Normal 81-[address] [facility] Comment on above: Performed By: #### L 501.5200, L500.2500, L501.2300 #### [facility] [address] [place], [address] Monocytes/100 WBC (Bld) 7.0 % Normal 0-10 [facility] Comment on above: Performed By: #### L 501.5200, L500.2500, L501.2300 #### [facility] [address] [place], [address] Neutrophils/100 WBC (Bld) 68.4 % Normal 47-70 [facility] Comment on above: Performed By: #### L 501.5200, L500.2500, L501.2300 #### [facility] [address] [place], [address] Nucleated RBC (Bld) [#/Vol] 0 10*3/uL Normal 0-5 [facility] Comment on above: Performed By: #### L 501.5200, L500.2500, L501.2300 #### [facility] [address] [place], [address] Platelet mean volume (Bld) [Entitic vol] 9.2 fL Normal 6.2-12.0 [facility] Comment on above: Performed By: #### L 501.5200, L500.2500, L501.2300 #### [facility] [address] [place], [address] Platelets (Bld) [#/Vol] 452 10*3/uL High 150-450 [facility] Comment on above: Performed By: #### L 501.5200, L500.2500, L501.2300 #### [facility] [address] [place], [address] RBC (Bld) [#/Vol] 4.97 10*6/uL Normal 4.2-5.4 [facility] Comment on above: Performed By: #### L 501.5200, L500.2500, L501.2300 #### [facility] [address] [place], [address] RDW SD 48.6 fl High 35.1-43.9 [facility] Comment on above: Performed By: #### L 501.5200, L500.2500, L501.2300 #### [facility] [address] [place], [address] WBC (Bld) [#/Vol] 13.7 10*3/uL High 4.4-11.0 [facility] Comment on above: Performed By: #### L 501.5200, L500.2500, L501.2300 #### [facility] [address] [place], [address] Chest PA and Lateralon 12-29 Chest PA and Lateral [facility] Imaging Services [address] [address] Chest PA and Lateral MR#: [id number] Acct: [id number] Name: SAVANNAH IRVIN Rep #: [id number] : 1965 F 58 From: Ed [place] PCP: Dr. Ivette Welsh MD Status: [facility] ER Study: Chest PA and Lateral Date of Exam: 12/30/23 Exam# [id number] Ordering Dr: Idalia Sanchez MD [id number] STUDY: XR Chest 2 Views 12/30/2023 9:14 PM REASON FOR EXAM: Female, 58 years old. pain COMPARISON: None TECHNIQUE: XR Chest 2 Views FINDINGS: There is no demonstrated pleural abnormality. The lung siu are hyperexpanded. Normal heart size. Normal mediastinum. Normal ashley. Prominent appearing increased interstitial lung markings. Normal visualized pulmonary arteries. There is atherosclerotic calcification of the aortic arch with tortuosity. There are diffuse degenerative changes of the visualized thoracic spine. There is degenerative osteoarthritis of the bilateral shoulders. There are no acute findings of the upper abdomen. RAD/Chest PA and Lateral IMPRESSION: There are no acute findings. Electronically Signed: Ed Shah MD at 21:23 EDT , CC: Dr. Idalia Sanchez MD; Dr. Ivette Welsh MD Paradichlorobenzene Machine Operator: Signed Normal [facility] Emergency Department Summary on 12-30-2023 Emergency Department Summary [facility] Medical Records Department [address] [place] [id number] Emergency Department Summary 12/30/23 MR#: [id number] Acct: [id number] Name: SAVANNAH IRVIN Rep #: [id number] : 1965 58 From: Idalia Sanchez MD PCP: Dr. Ivette Welsh MD Status:DEP ER Location: ED HPI History of Present Illness Chief Complaint: Complaint Informant: patient Onset/Context/Timing Onset: Days Context: Gradual Onset Narrative Narrative: Patient present secondary to right flank pain, urinary frequency, and malodorous urine for the past week. She does not believe she has had a fever, but is unsure. She has not felt well for the past several days. She is concerned that she may have pyelonephritis. She reports she also had similar symptoms with pneumonia recently. [facility] Medical History Hypertension Gastroesophageal reflux disease Leukocytosis Acute pyelonephritis Substance abuse Alcohol abuse Chronic pain Kidney stones Smoker Sleep apnea Pulmonary embolism TIA (transient ischemic attack) Stroke/cerebrovascular accident COPD (chronic obstructive pulmonary disease) Asthma Home Medications ???Medication ???Instructions ???Recorded ???Last Taken ???Type albuterol sulfate 2.5 mg/3 mL 2.5 mg (3 mL) inhalation Q4H PRN 10/20/17 02/08/23 Rx (0.083 %) solution for nebulization #25 vials albuterol sulfate 90 mcg/actuation 1 - 2 puff inhalation PRN PRN Sob 05/18/18 02/08/23 History aerosol inhaler (Ventolin HFA) /Or Wheezing epinephrine 0.3 mg/0.3 mL 0.3 mg (0.3 mL) IM X1 ##1 01/21/19 Unknown Rx injection, auto-injector cephalexin 500 mg capsule 500 mg PO Q12 #14 CAPSULES 12/30/23 Unknown Rx Allergy/AdvReac Type Severity Reaction Status Date / Time peanut Allergy Anaphylaxis Verified 12/30/23 20:27 tree nut (Tree Nut) Allergy Anaphylaxis Verified 12/30/23 20:27 Family History Mother COPD (chronic obstructive pulmonary disease) Hypertension Father Epilepsy Surgical History History of bilateral ligation of fallopian tubes History of cholecystectomy Social History household members: none Smoking Status: Current every day smoker tobacco type: cigarettes alcohol intake: former substance use type: marijuana ROS ROS ED Constitutional Constitutional ED: Denies chills or fever(s) Eyes Eyes: Denies change in vision or discharge from eye(s) ENT ENT ED: Denies discharge from eye(s), rhinorrhea or sore throat Cardiovascular Cardiovascular: Denies chest pain or palpitations Respiratory/Chest Respiratory/Chest: Denies cough or dyspnea Gastrointestinal Gastrointestinal: Reports abdominal pain, nausea and vomiting; Denies diarrhea Genitourinary Genitourinary ED: Reports urinary frequency; Denies difficulty urinating or dysuria Musculoskeletal Musculoskeletal: Denies back pain or extremity pain Integumentary Denies Abrasions or rash Neurologic Neurologic: Denies headache(s) or weakness Psychiatric Psychiatric: Denies anxiety or depression Allergic/Immunologic Allergic/Immunologic ED: Denies lip swelling or urticaria EXAM Physical Exam Const Vital Signs: 12/30/23 20:25 12/30/23 20:27 Temperature 97.8 F 97.8 F Temperature Source Temporal Temporal Pulse Rate 115 H 115 H Respiratory Rate 16 16 Blood Pressure 149/100 H 149/100 H Blood Pressure Mean 116 116 Pulse Ox 99 99 Oxygen Delivery Method Room Air Room Air Positive well nourished and well developed General Appearance ED: well developed HEENT Reports moist mucous membranes Eyes EOMs intact bilaterally Chest Wall inspection of chest normal and palpation of chest normal Resp normal respiratory effort and clear to auscultation bilaterally Cardio regular rate and regular rhythm GI non-tender Palpation: soft Back/Spine General Back: CVA tenderness right Extremity normal to inspection Neuro oriented x3 and no sensory deficits noted Motor Exam: strength 5/5 throughout Psych mental status grossly normal Skin no rashes or lesions noted MDM MDM MDM Narrative Medical decision making narrative: IV line established. Patient given a liter of IV fluids. Labwork obtained to evaluate for leukocytosis, anemia, and electrolyte derangement. Urinalysis obtained to evaluate for infection/hematuria. Given the patient's recent pneumonia with similar symptoms a 2 view chest x- ray will be obtained to evaluate for possible infiltrate. CT flank will be obtained to evaluate for potential pyelonephritis. History Record Review Discussion w/independent historian: Patient Lab Data (more content not included)... Normal [facility] Urinalysis, Completeon 12-29 AMORPHOUS 1+ URATE Normal [facility] Comment on above: Order Comment: CLEAN CATCH Performed By: #### L 501.5200, L500.2500, L501.2300 #### [facility] [address] [place], [place], [address] EPI,SQUAMOUS 0-5 SEEN Normal 5-10 [facility] Comment on above: Order Comment: CLEAN CATCH Performed By: #### L 501.5200, L500.2500, L501.2300 #### [facility] [address] [facility] [place], [address] RBC 0-5 SEEN Normal 0-5 [facility] Comment on above: Order Comment: CLEAN CATCH Performed By: #### L 501.5200, L500.2500, L501.2300 #### [facility] [address] [place], [address] WBC 25-50 SEEN Normal 0-5 [facility] Comment on above: Order Comment: CLEAN CATCH Performed By: #### L 501.5200, L500.2500, L501.2300 #### [facility] [address] [place], [address] BACTERIA 0 SEEN Normal None Seen [facility] Comment on above: Order Comment: CLEAN CATCH Performed By: #### L 501.5200, L500.2500, L501.2300 #### [facility] [address] [place], [address] Mucus Ql (Urine sed) 0 SEEN Normal [facility] Comment on above: Order Comment: CLEAN CATCH Performed By: #### L 501.5200, L500.2500, L501.2300 #### [facility] [address] [place], [address] Absolute lymphocyte countOrd ered By: Alexandru Mcclellandnicole on 06-05-2023 Lymphocytes Auto (Unsp spec) [#/Vol] 0.93 10*3/uL 0.83-4.51 [facility] Basophil percentageOrdered B y: Alexandru Holden on 06-05-2023 Basophils/100 WBC (Bld) 0.1 % 0-[address] [facility] Chloride [Moles/Vol] 106 mmol/L 98-107 [facility] Eosinophils/100 WBC (Bld) 0.0 % 0-5 [facility] Glucose [Mass/Vol] 223 mg/dL 74-106 [facility] Comment on above: Glucose result great er than or equal to 200 mg/dLsuggests DIABETES MELLITUS per A.D.A. criteria. Neutrophils (Bld) [#/Vol] 7.9 10*3/uL 2.0-7.7 [facility] Neutrophils/100 WBC (Bld) 88.4 % 47-70 [facility] Potassium [Moles/Vol] 3.4 mmol/L 3.5-5.1 [facility] Sodium [Moles/Vol] 138 mmol/L 136-145 [facility] WBC (Bld) [#/Vol] 8.9 10*3/uL 4.4-11.0 [facility] Blood erythrocytes count (nu mber/volume)Ordered By: Alexandru Holden on 06-05-2023 RBC (Bld) [#/Vol] 4.85 10*6/uL 4.2-5.4 [facility] Blood hemoglobin measurement (mass/volume)Ordered By: Alexandru Holden on 06-05-2023 Hemoglobin (Bld) [Mass/Vol] 13.5 g/dL 12.0-15.0 [facility] Blood lymphocytes/100 leukoc ytesOrdered By: Alexandru Holden on 06-05-2023 Lymphocytes/100 WBC (Bld) 10.5 % 19-41 [facility] Blood monocytes/100 leukocyt esOrdered By: Alexandru Holden on 06-05-2023 Monocytes/100 WBC (Bld) 0.5 % 0-[address] [facility] Blood platelet mean volumeOr dered By: Alexandru Holden on 06-05-2023 Platelet mean volume (Bld) [Entitic vol] 9.6 fL 6.2-12.0 [facility] Determination of erythrocyte mean corpuscular volume (MCV)Ordered By: Alexandru Holden on 06-05-2023 MCV (RBC) [Entitic vol] 88.7 fL 81-[address] [facility] Hematocrit Auto (Bld) [Volum e fraction]Ordered By: Alexandru Holden on 06-05-2023 Hematocrit (Bld) [Volume fraction] 43.0 % 37-47 [facility] - Chemistry and C hemistry - challengeOrdered By: Alexandru Holden on 06-05-2023 CO2 [Moles/Vol] 24.0 mmol/L 21.0-32.0 [facility] Urea nitrogen/Creatinine [Mass ratio] 14.9 mg/mg 10-20 [facility] - Hematology and Cell countsOrdered By: Alexandru Holden on 06-05-2023 Erythrocyte distribution width (RBC) [Entitic vol] 44.9 fL 35.1-43.9 [facility] Erythrocyte distribution width (RBC) [Ratio] 13.9 % 11.6-14.6 [facility] Immature granulocytes/100 WBC (Bld) 0.500 % 0.0-0.9 [facility] Comment on above: IG% - Immature Granu locytes (promyelocytes, myelocytes and metamyelocytes) > 1% indicates that a LEFT SHIFT is Present. MCH (RBC) [Entitic mass] 27.8 pg 27.0-32.0 [facility] Nucleated RBC/100 WBC (Bld) [Ratio] 0 % 0-5 [facility] MCHC Auto (RBC) [Mass/Vol]Or dered By: Alexandru Holden on 06-05-2023 MCHC (RBC) [Mass/Vol] 31.4 g/dL 32-36 [facility] No Panel InformationOrdered By: Alexandru Holden on 06-05-2023 Estimated Creatinine Clearance Calc 61.64 ml/min [facility] Estimated GFR (MDRD) Amer 86 mL/min >60 [facility] Comment on above: GFR Calc Estimated GFR (MDRD) Non-Af Amer 71 mL/min >60 [facility] Comment on above: Non- GFR Calc Platelets bldOrdered By: Noam Holden on 06-05-2023 Platelets (Bld) [#/Vol] 544 10*3/uL 150-450 [facility] Serum or plasma calcium scarlett urement (mass/volume)Ordered By: Alexandru Holden on 06-05-2023 Calcium [Mass/Vol] 8.8 mg/dL 8.5-10.1 [facility] Serum or plasma creatinine m easurement (mass/volume)Ordered By: Alexandru Holden on 06-05-2023 Creatinine [Mass/Vol] 0.88 mg/dL 0.55-1.02 [facility] Comment on above: The validity of the calculated GFR & GFRAA in patients over 70 years has not been determined. Clinical correlation is essential. Serum or plasma urea nitroge n measurement (mass/volume)Ordered By: Alexandru Holden on 06-05-2023 Urea nitrogen [Mass/Vol] 13 mg/dL -18 [facility] Serum procalcitonin measurem entOrdered By: Alexandru Holden on 06-05-2023 Procalcitonin [Mass/Vol] ng/mL 0.00-0.09 [facility] Comment on above: A procalcitonin (PCT ) level above 2.0 ng/mL on the first day of ICU admission is associated with a high risk for progression to severe sepsis and/or septic shock. A PCT level below 0.5 ng/mL on the first day of ICU admission is associated with a low risk for progression to severe and/or septic shock. Note: Concentrations <0.5 ng/mL do not exclude an infection on account of localized infections (without systemic signs) which can be associated with such low concentrations, or a systemic infection in its initial stages (<6 hours). Furthermore, increased procalcitonin can occur without infection. PCT concentrations between 0.5 and 2.0 ng/mL should be interpreted taking into account the patient's history. It is recommended to retest PCT within 6-24 hours if any concentrations <2 ng/mL are obtained. Thin prep Papanicolaou smear with manual screeningOrdered By: Alexandru Holden on 06-05-2023 Thin prep Papanicolaou smear with manual screening 8 5-15 [facility] Absolute lymphocyte countOrd ered By: Idalia Sanchez on 06-04-2023 Lymphocytes Auto (Unsp spec) [#/Vol] 3.40 10*3/uL 0.83-4.51 [facility] Basophil percentageOrdered B y: Idalia Sanchez on 06-04-2023 Basophils/100 WBC (Bld) 0.6 % 0-1 [facility] Bilirubin [Mass/Vol] 0.40 mg/dL 0.20-1.00 [facility] Comment on above: For patients on eltr ombopag therapy, use of Dimension [facility] TBIL is not recommended. Chloride [Moles/Vol] 106 mmol/L 98-107 [facility] Eosinophils/100 WBC (Bld) 4.2 % 0-5 [facility] Glucose [Mass/Vol] 102 mg/dL 74-106 [facility] Comment on above: Fasting Glucose resu lt from 100 to 125 mg/dL suggests IMPAIRED HOMEOSTASIS per A.D.A. criteria. Neutrophils (Bld) [#/Vol] 8.5 10*3/uL 2.0-7.7 [facility] Neutrophils/100 WBC (Bld) 61.9 % 47-70 [facility] Potassium [Moles/Vol] 3.5 mmol/L 3.5-5.1 [facility] Protein [Mass/Vol] 7.9 g/dL 6.4-8.2 [facility] Sodium [Moles/Vol] 141 mmol/L 136-145 [facility] WBC (Bld) [#/Vol] 13.7 10*3/uL 4.4-11.0 [facility] Blood erythrocytes count (nu mber/volume)Ordered By: Idalia Sanchez on 06-04-2023 RBC (Bld) [#/Vol] 5.13 10*6/uL 4.2-5.4 [facility] Blood hemoglobin measurement (mass/volume)Ordered By: Idalia Sanchez on 06-04-2023 Hemoglobin (Bld) [Mass/Vol] 14.2 g/dL 12.0-15.0 [facility] Blood lymphocytes/100 leukoc ytesOrdered By: Idalia Sanchez on 06-04-2023 Lymphocytes/100 WBC (Bld) 24.9 % 19-41 [facility] Blood monocytes/100 leukocyt esOrdered By: Idalia Sanchez on 06-04-2023 Monocytes/100 WBC (Bld) 8.1 % 0-[address] [facility] Blood platelet mean volumeOr dered By: Idalia Sanchez on 06-04-2023 Platelet mean volume (Bld) [Entitic vol] 9.3 fL 6.2-12.0 [facility] Determination of erythrocyte mean corpuscular volume (MCV)Ordered By: Idalia Sanchez on 06-04-2023 MCV (RBC) [Entitic vol] 87.9 fL 81-[address] [facility] Direct bilirubinOrdered By: Idalia Sanchez on 06-04-2023 Bilirubin.direct [Mass/Vol] 0.12 mg/dL 0.00-0.30 [facility] Hematocrit Auto (Bld) [Volum e fraction]Ordered By: Idalia Sanchez on 06-04-2023 Hematocrit (Bld) [Volume fraction] 45.1 % 37-47 [facility] Influenza virus A and B and SARS-CoV-2 (COVID-19) Ag panel - Upper respiratory specimOrdered By: Idalia Sanchez on 06-04-2023 SARS-CoV-2 (COVID-19) RNA SONG+probe Ql (Resp) [facility] - Chemistry and C hemistry - challengeOrdered By: Idalia Sanchez on 06-04-2023 ALP [Catalytic activity/Vol] 114 U/L 45-117 [facility] ALT [Catalytic activity/Vol] 18 U/L 13-56 [facility] CO2 [Moles/Vol] 29.0 mmol/L 21.0-32.0 [facility] Globulin (S) [Mass/Vol] 4.4 g/dL 2.2-4.[address] [facility] Urea nitrogen/Creatinine [Mass ratio] 16.3 mg/mg 10-20 [facility] - Hematology and Cell countsOrdered By: Idalia Sanchez on 06-04-2023 Erythrocyte distribution width (RBC) [Entitic vol] 44.2 fL 35.1-43.9 [facility] Erythrocyte distribution width (RBC) [Ratio] 13.7 % 11.6-14.6 [facility] Immature granulocytes/100 WBC (Bld) 0.300 % 0.0-0.9 [facility] Comment on above: IG% - Immature Granu locytes (promyelocytes, myelocytes and metamyelocytes) > 1% indicates that a LEFT SHIFT is Present. MCH (RBC) [Entitic mass] 27.7 pg 27.0-32.0 [facility] Nucleated RBC/100 WBC (Bld) [Ratio] 0 % 0-5 [facility] MCHC Auto (RBC) [Mass/Vol]Or dered By: Idalia Sanchez on 06-04-2023 MCHC (RBC) [Mass/Vol] 31.5 g/dL 32-36 [facility] No Panel InformationOrdered By: Idalia Sanchez on 06-04-2023 Estimated Creatinine Clearance Calc 58.96 ml/min [facility] Estimated GFR (MDRD) Amer 81 mL/min >60 [facility] Comment on above: GFR Calc Estimated GFR (MDRD) Non-Af Amer 67 mL/min >60 [facility] Comment on above: Non- GFR Calc Troponin I High Sensitivity 12 pg/mL 3.0-54.0 [facility] Comment on above: Please Note: New Stacey t Units and Gender Specific Reference Ranges. For more information see Policy Stat Procedure [facility] High Sensitivity Troponin (TNIH) and attachments. Platelets bldOrdered By: Lara Sanchez on 06-04-2023 Platelets (Bld) [#/Vol] 558 10*3/uL 150-450 [facility] Serum or plasma albumin scarlett urement (mass/volume)Ordered By: Idalia Sanchez on 06-04-2023 Albumin [Mass/Vol] 3.5 g/dL 3.2-5.0 [facility] Serum or plasma calcium scarlett urement (mass/volume)Ordered By: Idalia Sanchez on 06-04-2023 Calcium [Mass/Vol] 9.1 mg/dL 8.5-10.1 [facility] Serum or plasma creatinine m easurement (mass/volume)Ordered By: Idalia Sanchez on 06-04-2023 Creatinine [Mass/Vol] 0.92 mg/dL 0.55-1.02 [facility] Comment on above: The validity of the calculated GFR & GFRAA in patients over 70 years has not been determined. Clinical correlation is essential. Serum or plasma urea nitroge n measurement (mass/volume)Ordered By: Idalia Sanchez on 06-04-2023 Urea nitrogen [Mass/Vol] 15 mg/dL 7-18 [facility] Thin prep Papanicolaou smear with manual screeningOrdered By: Idalia Sanchez on 06-04-2023 Thin prep Papanicolaou smear with manual screening 14 U/L 15-37 [facility] Thin prep Papanicolaou smear with manual screening 6 5-15 [facility] Basic metabolic 2000 panelon 05-01-2023 Anion gap [Moles/Vol] 5 mmol/L Normal 5-16 [facility] Comment on above: Order Comment: Speci men Type: BLOOD SPECIMEN Ordering Facility: [facility] Address: [address] [place] [address] [place] [address] Performed By: #### 5 7021-8 #### [facility] CLIA [id number] [address] [place], [place] [id number] [place] Calcium [Mass/Vol] 9.0 mg/dL Normal 8.5-10.5 [facility] Comment on above: Order Comment: Speci men Type: BLOOD SPECIMEN Ordering Facility: [facility] Address: [address] [place] [address] Performed By: #### 5 7021-8 #### [facility] CLIA [id number] [address] [place] [address] [place] Chloride [Moles/Vol] 107 mmol/L Normal 98-107 [facility] Comment on above: Order Comment: Speci men Type: BLOOD SPECIMEN Ordering Facility: [facility] Address: [address] [place] [address] Performed By: #### 5 7021-8 #### [facility] CLIA [id number] [address] [place] [address] [place] CO2 [Moles/Vol] 30 mmol/L Normal 21-32 [facility] Comment on above: Order Comment: Speci men Type: BLOOD SPECIMEN Ordering Facility: [facility] Address: [address] [place] [address] Performed By: #### 5 7021-8 #### [facility] CLIA [id number] [address] [place] [address] [place] Creatinine [Mass/Vol] 0.81 mg/dL Normal 0.51-0.95 [facility] Comment on above: Order Comment: Speci men Type: BLOOD SPECIMEN Ordering Facility: [facility] Address: [address] [place] [address] Result Comment: Yojana ents receiving either N-Acetylcysteine (NAC) or Metamizole prior to venipuncture, may have falsely depressed results. Performed By: #### 5 7021-8 #### [facility] CLIA [id number] [address] [place], [place] [id number] [place] Creatinine and Glomerular filtration rate.predicted panel (S/P/Bld) 85 mL/min/1.73m??? Normal >=60 [facility] Comment on above: Order Comment: Merissa farris Type: BLOOD SPECIMEN Ordering Facility: [facility] Address: [place] [address] Result Comment: Aracely mated Glomerular Filtration Rate (eGFR) is calculated using the 2020 CKD-EPI creatinine equation. This equation utilizes serum creatinine, sex, and age as parameters. The creatinine assay has traceable calibration to isotope dilution-mass spectrometry. Refer to KDIGO guidelines for clinical interpretation. In patients with unstable renal function, e.g. those with acute kidney injury, the eGFR may not accurately reflect actual GFR. Performed By: #### 5 7021-8 #### [facility] CLIA [id number] [address] [place] [address] [place] Glucose [Mass/Vol] 111 mg/dL High 70-100 [facility] Comment on above: Order Comment: Merissa farris Type: BLOOD SPECIMEN Ordering Facility: [facility] Address: [place] [address] Result Comment: The [place] Diabetes [employer] (ADA) provides guidance for cutoff values for fasting glucose and random glucose. The ADA defines fasting as no caloric intake for at least 8 hours. Fasting plasma glucose results between 100 to 125 mg/dL indicate increased risk for diabetes (prediabetes). Fasting plasma glucose results greater than or equal to 126 mg/dL meet the criteria for diagnosis of diabetes. In the absence of unequivocal hyperglycemia, results should be confirmed by repeat testing. In a patient with classic symptoms of hyperglycemia or hyperglycemic crisis, random plasma glucose results greater than or equal to 200 mg/dL meet the criteria for diagnosis of diabetes. Reference: Standards of Medical Care in Diabetes 2016, [place] [employer]. Diabetes Care. 2016.39(Suppl 1). Results may be falsely elevated after the administration of Sulfapyridine. Results may be falsely depressed after the administration of Sulfasalazine. Performed By: #### 5 7021-8 #### [facility] CLIA [id number] [address] [place], [place] [address] [place] Potassium [Moles/Vol] 4.9 mmol/L Normal 3.5-5.1 [facility] Comment on above: Order Comment: Speci men Type: BLOOD SPECIMEN Ordering Facility: [facility] Address: [address] [place] [address] Performed By: #### 5 7021-8 #### [facility] CLIA [id number] [address] [place] [address] [place] Sodium [Moles/Vol] 142 mmol/L Normal 136-145 [facility] Comment on above: Order Comment: Speci men Type: BLOOD SPECIMEN Ordering Facility: [facility] Address: [address] [place] [address] Performed By: #### 5 7021-8 #### [facility] CLIA [id number] [address] [place] [address] [place] Urea nitrogen [Mass/Vol] 10 mg/dL Normal 7-26 [facility] Comment on above: Order Comment: Speci men Type: BLOOD SPECIMEN Ordering Facility: [facility] Address: [address] [place] [address] Performed By: #### 5 7021-8 #### [facility] CLIA [id number] [address] [place] [address] [facility] CBC W Auto Differential pane l (Bld)on 05-01-2023 Basophils (Bld) [#/Vol] 0.05 10*3/uL Normal <0.11 [facility] Comment on above: Order Comment: Speci men Type: BLOOD SPECIMEN Ordering Facility: [facility] Address: [address] [place] [address] Performed By: #### 5 7021-8 #### [facility] CLIA [id number] [address] [place] [address] [place] Basophils/100 WBC (Bld) 0.4 % Normal [facility] Comment on above: Order Comment: Speci men Type: BLOOD SPECIMEN Ordering Facility: [facility] Address: [address] [place] [address] Performed By: #### 5 7021-8 #### [facility] CLIA [id number] [address] [place] [address] Differential cell count method Nom (Bld) Auto Normal [facility] Comment on above: Order Comment: Speci men Type: BLOOD SPECIMEN Ordering Facility: [facility] Address: [address] [place] [address] Performed By: #### 5 7021-8 #### [facility] CLIA [id number] [address] [place] [address] [place] Eosinophils (Bld) [#/Vol] 0.26 10*3/uL Normal <0.46 [facility] Comment on above: Order Comment: Speci men Type: BLOOD SPECIMEN Ordering Facility: [facility] Address: [address] [place] [address] Performed By: #### 5 7021-8 #### [facility] CLIA [id number] [address] [place] [address] [place] Eosinophils/100 WBC (Bld) 2.0 % Normal [facility] Comment on above: Order Comment: Speci men Type: BLOOD SPECIMEN Ordering Facility: [facility] Address: [address] [place] [address] Performed By: #### 5 7021-8 #### [facility] CLIA [id number] [address] [place] [address] [place] Erythrocyte distribution width (RBC) [Ratio] 14.2 % Normal 11.5-15.0 [facility] Comment on above: Order Comment: Speci men Type: BLOOD SPECIMEN Ordering Facility: [facility] Address: [address] [place] [address] Performed By: #### 5 7021-8 #### [facility] CLIA [id number] [address] [place] [address] [place] Hematocrit (Bld) [Volume fraction] 41.4 % Normal 36.0-46.0 [facility] Comment on above: Order Comment: Speci men Type: BLOOD SPECIMEN Ordering Facility: [facility] Address: [address] [place] [address] Performed By: #### 5 7021-8 #### [facility] CLIA [id number] [address] [place], [place] [id number] [place] Hemoglobin (Bld) [Mass/Vol] 12.9 g/dL Normal 11.5-15.5 [facility] Comment on above: Order Comment: Speci men Type: BLOOD SPECIMEN Ordering Facility: [facility] Address: [address] [place] [address] Performed By: #### 5 7021-8 #### [facility] CLIA [id number] [address] [place] [address] [place] Immature granulocytes (Bld) [#/Vol] 0.06 10*3/uL Normal <0.10 [facility] Comment on above: Order Comment: Speci men Type: BLOOD SPECIMEN Ordering Facility: [facility] Address: [address] [place] [address] Performed By: #### 5 7021-8 #### [facility] CLIA [id number] [address] [place] [address] [place] Immature granulocytes/100 WBC (Bld) 0.5 % Normal [facility] Comment on above: Order Comment: Speci men Type: BLOOD SPECIMEN Ordering Facility: [facility] Address: [address] [place] [address] Performed By: #### 5 7021-8 #### [facility] CLIA [id number] [address] [place] [address] [place] Lymphocytes (Bld) [#/Vol] 2.07 10*3/uL Normal 1.00-4.00 [facility] Comment on above: Order Comment: Speci men Type: BLOOD SPECIMEN Ordering Facility: [facility] Address: [address] [place] [address] Performed By: #### 5 7021-8 #### [facility] CLIA [id number] [address] [place] [address] [place] Lymphocytes/100 WBC (Bld) 16.3 % Normal [facility] Comment on above: Order Comment: Speci men Type: BLOOD SPECIMEN Ordering Facility: [facility] Address: [address] [place] [address] Performed By: #### 5 7021-8 #### [facility] CLIA [id number] [address] [place] [address] [place] MCH (RBC) [Entitic mass] 27.7 pg Normal 26.0-34.0 [facility] Comment on above: Order Comment: Speci men Type: BLOOD SPECIMEN Ordering Facility: [facility] Address: [address] [place] [address] Performed By: #### 5 7021-8 #### [facility] CLIA [id number] [address] [place] [address] [place] MCHC (RBC) [Mass/Vol] 31.2 g/dL Normal 30.5-36.0 [facility] Comment on above: Order Comment: Speci men Type: BLOOD SPECIMEN Ordering Facility: [facility] Address: [address] [place] [address] Performed By: #### 5 7021-8 #### [facility] CLIA [id number] [address] [place] [address] [place] MCV (RBC) [Entitic vol] 88.8 fL Normal 80.0-100.0 [facility] Comment on above: Order Comment: Speci men Type: BLOOD SPECIMEN Ordering Facility: [facility] Address: [address] [place] [address] Performed By: #### 5 7021-8 #### [facility] CLIA [id number] [address] [place] [address] [place] Monocytes (Bld) [#/Vol] 1.38 10*3/uL High <0.87 [facility] Comment on above: Order Comment: Speci men Type: BLOOD SPECIMEN Ordering Facility: [facility] Address: [address] [place] [address] Performed By: #### 5 7021-8 #### [facility] CLIA [id number] [address] [place] [address] [place] Monocytes/100 WBC (Bld) 10.9 % Normal [facility] Comment on above: Order Comment: Speci men Type: BLOOD SPECIMEN Ordering Facility: [facility] Address: [address] [place] [address] Performed By: #### 5 7021-8 #### [facility] CLIA [id number] [address] [place] [address] [place] Neutrophils (Bld) [#/Vol] 8.89 10*3/uL High 1.45-7.50 [facility] Comment on above: Order Comment: Speci men Type: BLOOD SPECIMEN Ordering Facility: [facility] Address: [address] [place] [address] Performed By: #### 5 7021-8 #### [facility] CLIA [id number] [address] [place] [address] [place] Neutrophils/100 WBC (Bld) 69.9 % Normal [facility] Comment on above: Order Comment: Speci men Type: BLOOD SPECIMEN Ordering Facility: [facility] Address: [address] [place] [address] Performed By: #### 5 7021-8 #### [facility] CLIA [id number] [address] [place] [address] [place] Nucleated RBC (Bld) [#/Vol] 10*3/uL Normal <0.01 [facility] Comment on above: Order Comment: Speci men Type: BLOOD SPECIMEN Ordering Facility: [facility] Address: [address] [place] [address] Performed By: #### 5 7021-8 #### [facility] CLIA [id number] [address] [place] [address] [place] Nucleated RBC/100 WBC (Bld) [Ratio] 0.0 /100 WBC Normal [facility] Comment on above: Order Comment: Speci men Type: BLOOD SPECIMEN Ordering Facility: [facility] Address: [address] [place] [address] Performed By: #### 5 7021-8 #### [facility] CLIA [id number] [address] [place] [address] [place] Platelet mean volume (Bld) [Entitic vol] 9.5 fL Normal 9.0-12.7 [facility] Comment on above: Order Comment: Speci men Type: BLOOD SPECIMEN Ordering Facility: [facility] Address: [place] [address] Performed By: #### 5 7021-8 #### [facility] CLIA [id number] [address] [place] [address] [facility] [place] Platelets (Bld) [#/Vol] 424 10*3/uL High 150-400 [facility] Comment on above: Order Comment: Speci men Type: BLOOD SPECIMEN Ordering Facility: [facility] Address: [address] [place] [address] Performed By: #### 5 7021-8 #### [facility] CLIA [id number] [address] [place] [address] [place] RBC (Bld) [#/Vol] 4.66 10*6/uL Normal 3.90-5.20 [facility] Comment on above: Order Comment: Speci men Type: BLOOD SPECIMEN Ordering Facility: [facility] Address: [address] [place] [id number] Performed By: #### 5 7021-8 #### [facility] CLIA [id number] [address] [place] [address] [place] WBC (Bld) [#/Vol] 12.71 10*3/uL High 3.70-11.00 [facility] Comment on above: Order Comment: Speci men Type: BLOOD SPECIMEN Ordering Facility: [facility] Address: [address] [place] [address] Performed By: #### 5 7021-8 #### [facility] CLIA [id number] [address] [place] [address] [place] CNDSon 05-01-2023 CNDS HNO ID: [id number] Author: Vane Rosas MD Service: General Internal Medicine Author Type: Physician Type: Discharge Summary Filed: 05/02/2023 1:47 PM Note Text: DISCHARGE SUMMARY PATIENT NAME: Savannah Irvin ADMISSION DATE: 04/29/2023 Date or Evaluation: 05/02/2023 DISCHARGE DATE: 05/01/2023 ATTENDING PHYSICIAN: Vane Rosas MD Code Status: Full Code Highest Readmission Risk Score: 21 The 30 day readmissions risk score is derived from an internally validated risk model which evaluates patient level characteristics, utilization history, medication orders and lab results up until the day of discharge. Patients with a score of 40 or above are considered highest risk for readmission. Specific patient level drivers will be listed at the bottom of the summary. CONSULTING TEAMS DURING HOSPITALIZATION: Treatment Team: Attending Provider: Vane Rosas MD Attending: MR DIONY MCGHEE REASON FOR HOSPITALIZATION: Difficulty breathing DIAGNOSIS: Acute hypoxic respiratory failure Severe sepsis Streptococcal pneumonia Left lower rib cage pain GERD with dysphagia Previous history of PE/DVTs, however off of Xarelto due to massive GI bleed history Active drug abuse, denies IV abuse though Active tobacco abuse HOSPITAL COURSE: Patient is a 57-year-old female with active drug abuse/methamphetamines inhalational route (denies IV drug abuse), GERD with dysphagia, history of PE DVTs not on Xarelto as patient had a massive GI bleed history, active smoking presented with difficulty in breathing for few days to [facility] ED. Patient diagnosed with streptococcal pneumonia, received IV antibiotics, patient breathing was getting better but still not at the baseline. Urinary tox screen positive for amphetamines. However patient today was extremely adamant in leaving hospital, strongly counseled her regarding IV antibiotic need and oxygen therapy, patient was very uninterested in staying in the hospital, left AGAINST MEDICAL ADVICE. DISCHARGE DISPOSITION: Patient left AGAINST MEDICAL ADVICE ALLERGIES Allergen Reactions All Nuts [Other] Anaphylaxis Argan Nut Anaphylaxis Phoenix Nut Anaphylaxis Cashew Nut Anaphylaxis Hazelnut Anaphylaxis Macadamia Nut Oil Anaphylaxis Peanuts Anaphylaxis Pecan Nut Anaphylaxis Bedford Nut Anaphylaxis Pistachio Nut Anaphylaxis Tree Nut Anaphylaxis DISCHARGE MEDICATION: Could not do med rec as patient left AMA FUTURE APPOINTMENTS: See discharge instructions. The patient's risk for 30-day readmission is determined using the following contributing factors: Pt variables contributing to increased readmission risk: 10 Most Recent BUN Result 9.2 First Resulted Calcium During Admission 1 Previous ED Visit (6 mos.)? 1 Number of Previous ED Visits (6 mos.) 1 Insurance - Medicare 1 Discharge Disposition - Home 1 History of Anemia 1 History of Drug Abuse/Dependence Time of care: 50 minutes Disclaimer This dictation was created using voice recognition software. Phonetic and/or minor grammatical errors may exist. SIGNATURE: Vane Rosas MD DATE: May 02, 2023 TIME: 1:44 PM [facility] NURSING PROGon 05-01-2023 NURSING PROG HNO ID: [id number] Author: Tara Carr RN Service: Nursing Author Type: Registered Nurse Type: Nursing Progress Note Filed: 05/01/2023 6:18 PM Note Text: Pt decided to leave AMA without notifying the nursing staff. Charge nurse notified, david salazar called and police were notified of David salazar description. [facility] called every number on the patients chart and 2 of 3 numbers were fake/ out of service. Sister answered the phone and stated she leaves AMA all the time. Dr. Rosas notified via messenger. [facility] ALLIED HEALTHon 04-30-2023 ALLIED HEALTH HNO ID: [id number] Author: Velma Asif RT(R) Service: Radiology Author Type: Technologist Type: Allied Health Filed: 04/30/2023 11:22 AM Note Text: Summary: xr [id number] 40ccvaribar [facility] Radiology Service Progress Note PATIENT NAME: Savannah Irvin DATE OF SERVICE: April 30, 2023 TIME: 11:21 AM PATIENT IDENTITY VERIFICATION COMPLETED USING TWO (2) IDENTIFIERS: Name and Date of confirmed by patient verbally. FALL SCREENING: Has the patient had 2 falls in the last year or 1 fall with injury or currently using an Ambulatory Assistive Device (Walker, Cane, Wheelchair, Crutches, etc.)? Inpatient: Screened on floor PATIENT GENDER DATA: Female. status: : No status: N/A PATIENT RELEVANT IMPLANT DATA REVIEWED: Not Applicable RADIOLOGY DEPARTMENT: General X-ray: Exam(s) Completed: GI/ Procedure(s): Modified barium swallow with barium contrast PERIPHERAL IV DATA: Not applicable SIGNED BY: Velma Asif RT(R) April 30, 2023 11:21 AM Normal [facility] ARTERIAL BLOOD GASESon 04-30 Base excess Calc (Bld) [Moles/Vol] 4 mmol/L High 0-2 [facility] Comment on above: Order Comment: Merissa farris Type: BLOOD SPECIMEN Ordering Facility: [facility] Address: [address] [place] [address] Performed By: #### 5 7021-8 #### [facility] CLIA [id number] [address] [place] [address] [place] Body temperature 98.6 [degF] Normal [facility] Comment on above: Order Comment: Merissa farris Type: BLOOD SPECIMEN Ordering Facility: [facility] Address: [address] [place] [address] Performed By: #### 5 7021-8 #### [facility] CLIA [id number] [address] [place] [address] [place] Calcium.ionized (Bld) [Mass/Vol] 1.21 mmol/L Normal 1.08-1.30 [facility] Comment on above: Order Comment: Laurai brenton Type: BLOOD SPECIMEN Ordering Facility: [facility] Address: [address] [place] [address] Performed By: #### 5 7021-8 #### [facility] CLIA [id number] [address] [place] [address] [place] Carboxyhemoglobin (BldA) [Mass fraction] 0.4 % Normal 0.0-2.0 [facility] Comment on above: Order Comment: Merissa farris Type: BLOOD SPECIMEN Ordering Facility: [facility] Address: [address] [place] [address] Result Comment: Carb oxyhemoglobin Reference Range for Smokers: 2.0-8.0% Performed By: #### 5 7021-8 #### [facility] CLIA [id number] [address] [place] [address] [place] CO2 (Bld) [Partial pressure] 48 mm Hg High 36-46 [facility] Comment on above: Order Comment: Speci men Type: BLOOD SPECIMEN Ordering Facility: [facility] Address: [address] [place] [address] Performed By: #### 5 7021-8 #### [facility] CLIA [id number] [address] [place] [address] [place] Glucose [Mass/Vol] 116 mg/dL High 60-105 [facility] Comment on above: Order Comment: Speci men Type: BLOOD SPECIMEN Ordering Facility: [facility] Address: [address] [place] [address] Performed By: #### 5 7021-8 #### [facility] CLIA [id number] [address] [place] [address] [place] HCO3 (Bld) [Moles/Vol] 29 mmol/L High 22-26 [facility] Comment on above: Order Comment: Speci men Type: BLOOD SPECIMEN Ordering Facility: [facility] Address: [address] [place] [address] Performed By: #### 5 7021-8 #### [facility] CLIA [id number] [address] [place] [address] [place] Hemoglobin (Bld) [Mass/Vol] 11.6 g/dL Normal 11.5-15.5 [facility] Comment on above: Order Comment: Speci men Type: BLOOD SPECIMEN Ordering Facility: [facility] Address: [address] [place] [address] Performed By: #### 5 7021-8 #### [facility] CLIA [id number] [address] [place] [address] [place] Lactate [Moles/Vol] 1.1 mmol/L Normal 0.5-2.2 [facility] Comment on above: Order Comment: Speci men Type: BLOOD SPECIMEN Ordering Facility: [facility] Address: [address] [place] [address] Performed By: #### 5 7021-8 #### [facility] CLIA [id number] [address] [place] [address] [place] LITERS 3 Liters/min Normal [facility] Comment on above: Order Comment: Speci men Type: BLOOD SPECIMEN Ordering Facility: [facility] Address: [address] [place] [address] Performed By: #### 5 7021-8 #### [facility] CLIA [id number] [address] [place] [address] [place] Methemoglobin (Bld) [Mass fraction] 0.3 % Normal 0.0-1.5 [facility] Comment on above: Order Comment: Speci men Type: BLOOD SPECIMEN Ordering Facility: [facility] Address: [address] [place] [address] Performed By: #### 5 7021-8 #### [facility] CLIA [id number] [address] [place] [address] [place] O2 THERAPY NC = Nasal Cannula Normal [facility] Comment on above: Order Comment: Speci men Type: BLOOD SPECIMEN Ordering Facility: [facility] Address: [address] [place] [address] Performed By: #### 5 7021-8 #### [facility] CLIA [id number] [address] [place] [address] [place] Oxygen (Bld) [Partial pressure] 80 mm Hg Low 85-95 [facility] Comment on above: Order Comment: Speci men Type: BLOOD SPECIMEN Ordering Facility: [facility] Address: [address] [place] [address] Performed By: #### 5 7021-8 #### [facility] CLIA [id number] [address] [place] [address] [place] Oxyhemoglobin (BldA) [Mass fraction] 95 % Normal 95-98 [facility] Comment on above: Order Comment: Speci men Type: BLOOD SPECIMEN Ordering Facility: [facility] Address: [address] [place] [address] Performed By: #### 5 7021-8 #### [facility] CLIA [id number] [address] [place] [address] [place] pH (Bld) 7.40 [pH] Normal 7.35-7.45 [facility] Comment on above: Order Comment: Speci men Type: BLOOD SPECIMEN Ordering Facility: [facility] Address: [address] [place] [address] Performed By: #### 5 7021-8 #### [facility] CLIA [id number] [address] [place] [address] [place] Potassium [Moles/Vol] 3.9 mmol/L Normal 2.5-6.0 [facility] Comment on above: Order Comment: Speci men Type: BLOOD SPECIMEN Ordering Facility: [facility] Address: [address] [place] [address] Performed By: #### 5 7021-8 #### [facility] CLIA [id number] [address] [place] [address] [place] Sodium [Moles/Vol] 136 mmol/L Normal 136-144 [facility] Comment on above: Order Comment: Speci men Type: BLOOD SPECIMEN Ordering Facility: [facility] Address: [address] [place] [address] Performed By: #### 5 7021-8 #### [facility] CLIA [id number] [address] [place] [address] [place] Bacteria Spec Resp Culton Bacteria identified Respiratory culture Nom (Unsp spec) CULTURE, RESPIRATORY: Moderate Normal respiratory sujata present ORGANISM ID: 1 Moderate Streptococcus pneumoniae ORGANISM ID: 2 Rare Connie albicans Presumptive ID GRAM STAIN: Many Polymorphonuclear leukocytes Moderate Epithelial cells Many Gram positive cocci ORGANISM ID: 1 (STREPTOCOCCUS PNEUMONIAE) -- ANTIBIOTIC INTERPRETATION SYLVESTER STATUS REFERENCE RANGE -- Penicillin (oral) S <=0.06 F Susceptible <=0.06 , Intermediate >.06 , Resistant >1 Penicillin Non-Meningitis S <=0.06 F Susceptible <=2 , Intermediate >2 , Resistant >=8 Ceftriaxone Non-Meningitis S <=0.5 F Susceptible <=1 , Intermediate >1 , Resistant >2 Cefepime S 0.25 F Susceptible <=1 , Intermediate >1 , Resistant >2 Meropenem S <=0.0625 F Susceptible <=0.25 , Intermediate >.25 , Resistant >.5 Erythromycin S 0.0625 F Susceptible <=0.25 , Intermediate >.25 , Resistant >=1 Trimeth sulfameth S <=0.25 F Vancomycin S 0.5 F Susceptible <=1 , Nonsusceptible >1 Levofloxacin S 2 F Susceptible <=2 , Intermediate >2 , Resistant >4 Tetracycline S <=0.25 F Susceptible <=1 , Intermediate >1 , Resistant >2 Abnormal [facility] Comment on above: Performed By: #### S LACT #### [facility] CLIA [id number] [facility] [place] [address] [place] Basic metabolic 2000 panelon 04-30-2023 Anion gap [Moles/Vol] 3 mmol/L Low 5-16 [facility] Comment on above: Order Comment: Speci men Type: BLOOD SPECIMENOrdering Facility: [facility] Address: [address] [place] [address] Performed By: #### 2 4321-2 ####[facility] [id number] [place] [address] [place] Calcium [Mass/Vol] 8.4 mg/dL Low 8.5-10.5 [facility] Comment on above: Order Comment: Speci men Type: BLOOD SPECIMENOrdering Facility: [facility] Address: [address] [place] [address] Performed By: #### 2 4321-2 ####[facility] [id number] [place] [address] [place] Chloride [Moles/Vol] 105 mmol/L Normal 98-107 [facility] Comment on above: Order Comment: Speci men Type: BLOOD SPECIMENOrdering Facility: [facility] Address: [address] [place] [address] Performed By: #### 2 4321-2 ####[facility] [id number] [place] [address] [place] CO2 [Moles/Vol] 30 mmol/L Normal 21-32 [facility] Comment on above: Order Comment: Speci men Type: BLOOD SPECIMENOrdering Facility: [facility] Address: [address] [place] [address] Performed By: #### 2 4321-2 ####[facility] [id number] [place] [address] [place] Creatinine [Mass/Vol] 1.05 mg/dL High 0.51-0.95 [facility] Comment on above: Order Comment: Speci men Type: BLOOD SPECIMENOrdering Facility: [facility] Address: [address] [place] [address] Result Comment: Yojana ents receiving either N-Acetylcysteine (NAC) or Metamizole prior to venipuncture, may have falsely depressed results. Performed By: #### 2 4321-2 ####[facility] [id number] [place] [address] [place] Creatinine and Glomerular filtration rate.predicted panel (S/P/Bld) 62 mL/min/1.73m??? Normal >=60 [facility] Comment on above: Order Comment: Merissa farris Type: BLOOD SPECIMENOrdering Facility: [facility] Address: [address] [place] [address] Result Comment: Aracely mated Glomerular Filtration Rate (eGFR) is calculated using the 2020 CKD-EPI creatinine equation. This equation utilizes serum creatinine, sex, and age as parameters. The creatinine assay has traceable calibration to isotope dilution-mass spectrometry. Refer to KDIGO guidelines for clinical interpretation. In patients with unstable renal function, e.g. those with acute kidney injury, the eGFR may not accurately reflect actual GFR. Performed By: #### 2 4321-2 ####[facility] [id number] [place] [address] [place] Glucose [Mass/Vol] 116 mg/dL High 70-100 [facility] Comment on above: Order Comment: Merissa farris Type: BLOOD SPECIMENOrdering Facility: [facility] Address: [address] [place] [address] Result Comment: The [place] Diabetes [employer] (ADA) provides guidance for cutoff values for fasting glucose and random glucose. The ADA defines fasting as no caloric intake for at least 8 hours. Fasting plasma glucose results between 100 to 125 mg/dL indicate increased risk for diabetes (prediabetes). Fasting plasma glucose results greater than or equal to 126 mg/dL meet the criteria for diagnosis of diabetes. In the absence of unequivocal hyperglycemia, results should be confirmed by repeat testing. In a patient with classic symptoms of hyperglycemia or hyperglycemic crisis, random plasma glucose results greater than or equal to 200 mg/dL meet the criteria for diagnosis of diabetes. Reference: Standards of Medical Care in Diabetes 2016, [place] [employer]. Diabetes Care. 2016.39(Suppl 1). Results may be falsely elevated after the administration of Sulfapyridine. Results may be falsely depressed after the administration of Sulfasalazine. Performed By: #### 2 4321-2 ####[facility] [id number] [place] [address] [place] Potassium [Moles/Vol] 4.6 mmol/L Normal 3.5-5.1 [facility] Comment on above: Order Comment: Merissa farris Type: BLOOD SPECIMENOrdering Facility: [facility] Address: [address] [place] [address] Performed By: #### 2 4321-2 ####[facility] [id number] [place] [address] [place] Sodium [Moles/Vol] 138 mmol/L Normal 136-145 [facility] [facility] Comment on above: Order Comment: Speci men Type: BLOOD SPECIMENOrdering Facility: [facility] Address: [address] [place] [address] Performed By: #### 2 4321-2 ####[facility]ATORYCLIA [id number] [place] [address] [place] Urea nitrogen [Mass/Vol] 13 mg/dL Normal 7-26 [facility] Comment on above: Order Comment: Speci men Type: BLOOD SPECIMENOrdering Facility: [facility] Address: [address] [place] [address] Performed By: #### 2 4321-2 ####[facility]ATORYCLIA [id number] [place] [address] [place] CBC W Auto Differential pane l (Bld)on 04-30-2023 Basophils (Bld) [#/Vol] 0.05 10*3/uL Normal <0.11 [facility] Comment on above: Order Comment: Speci men Type: BLOOD SPECIMENOrdering Facility: [facility] Address: [address] [place] [address] Performed By: #### 5 7021-8 ####[facility]ATORYCLIA [id number] [address] [place] Basophils/100 WBC (Bld) 0.3 % Normal [facility] Comment on above: Order Comment: Speci men Type: BLOOD SPECIMENOrdering Facility: [facility] Address: [address] [place] [address] Performed By: #### 5 7021-8 ####[facility]ORATORYCLIA [id number] [place] [address] [place] Differential cell count method Nom (Bld) Auto Normal [facility] Comment on above: Order Comment: Speci men Type: BLOOD SPECIMENOrdering Facility: [facility] Address: [address] [place] [address] Performed By: #### 5 7021-8 ####[facility]ATORYCLIA [id number] [place] [address] [place] Eosinophils (Bld) [#/Vol] 0.24 10*3/uL Normal <0.46 [facility] Comment on above: Order Comment: Speci men Type: BLOOD SPECIMENOrdering Facility: [facility] Address: [address] [place] [address] Performed By: #### 5 7021-8 ####[facility]ATORYCLIA [id number] [address] [facility] Eosinophils/100 WBC (Bld) 1.5 % Normal [facility] Comment on above: Order Comment: Speci men Type: BLOOD SPECIMENOrdering Facility: [facility] Address: [address] [place] [address] Performed By: #### 5 7021-8 ####[facility]ATORYCLIA [id number] [address] [place] Erythrocyte distribution width (RBC) [Ratio] 14.1 % Normal 11.5-15.0 [facility] Comment on above: Order Comment: Speci men Type: BLOOD SPECIMENOrdering Facility: [facility] Address: [address] [place] [address] Performed By: #### 5 7021-8 ####[facility]ATORYCLIA [id number] [address] [place] Hematocrit (Bld) [Volume fraction] 33.9 % Low 36.0-46.0 [facility] Comment on above: Order Comment: Speci men Type: BLOOD SPECIMENOrdering Facility: [facility] Address: [address] [place] [address] Performed By: #### 5 7021-8 ####[facility]ATORYCLIA [id number] [place] [address] [place] Hemoglobin (Bld) [Mass/Vol] 10.7 g/dL Low 11.5-15.5 [facility] Comment on above: Order Comment: Speci men Type: BLOOD SPECIMENOrdering Facility: [facility] Address: [address] [place] [address] Performed By: #### 5 7021-8 ####[facility]ATORYCLIA [id number] [place] [address] [place] Immature granulocytes (Bld) [#/Vol] 0.07 10*3/uL Normal <0.10 [facility] Comment on above: Order Comment: Speci men Type: BLOOD SPECIMENOrdering Facility: [facility] Address: [address] [place] [address] Performed By: #### 5 7021-8 ####[facility]ATORYCLIA [id number] [place] [address] [place] Immature granulocytes/100 WBC (Bld) 0.4 % Normal [facility] Comment on above: Order Comment: Speci men Type: BLOOD SPECIMENOrdering Facility: [facility] Address: [address] [place] [address] Performed By: #### 5 7021-8 ####[facility]ATORYCLIA [id number] [place] [address] [place] Lymphocytes (Bld) [#/Vol] 2.55 10*3/uL Normal 1.00-4.00 [facility] Comment on above: Order Comment: Speci men Type: BLOOD SPECIMENOrdering Facility: [facility] Address: [address] [place] [address] Performed By: #### 5 7021-8 ####[facility]ATORYCLIA [id number] [place] [address] [place] Lymphocytes/100 WBC (Bld) 15.8 % Normal [facility] Comment on above: Order Comment: Speci men Type: BLOOD SPECIMENOrdering Facility: [facility] Address: [address] [place] [address] Performed By: #### 5 7021-8 ####[facility]ATORYCLIA [id number] [address] [place] MCH (RBC) [Entitic mass] 28.2 pg Normal 26.0-34.0 [facility] Comment on above: Order Comment: Speci men Type: BLOOD SPECIMENOrdering Facility: [facility] Address: [address] [place] [address] Performed By: #### 5 7021-8 ####[facility]ATORYCLIA [id number] [address] [place] MCHC (RBC) [Mass/Vol] 31.6 g/dL Normal 30.5-36.0 [facility] Comment on above: Order Comment: Speci men Type: BLOOD SPECIMENOrdering Facility: [facility] Address: [address] [place] [address] Performed By: #### 5 7021-8 ####[facility]ATORYCLIA [id number] [address] [place] MCV (RBC) [Entitic vol] 89.2 fL Normal 80.0-100.0 [facility] Comment on above: Order Comment: Speci men Type: BLOOD SPECIMENOrdering Facility: [facility] Address: [address] [place] [address] Performed By: #### 5 7021-8 ####[facility]ATORYCLIA [id number] [address] [place] Monocytes (Bld) [#/Vol] 1.15 10*3/uL High <0.87 [facility] Comment on above: Order Comment: Speci men Type: BLOOD SPECIMENOrdering Facility: [facility] Address: [address] [place] [address] Performed By: #### 5 7021-8 ####[facility]ATORYCLIA [id number] [address] Monocytes/100 WBC (Bld) 7.1 % Normal [facility] Comment on above: Order Comment: Speci men Type: BLOOD SPECIMENOrdering Facility: [facility] Address: [address] [place] [address] Performed By: #### 5 7021-8 ####[facility]ATORYCLIA [id number] [place] [address] [place] Neutrophils (Bld) [#/Vol] 12.03 10*3/uL High 1.45-7.50 [facility] Comment on above: Order Comment: Speci men Type: BLOOD SPECIMENOrdering Facility: [facility] Address: [address] [place] [address] Performed By: #### 5 7021-8 ####[facility]ATORYCLIA [id number] [place] [address] [place] Neutrophils/100 WBC (Bld) 74.9 % Normal [facility] Comment on above: Order Comment: Speci men Type: BLOOD SPECIMENOrdering Facility: [facility] Address: [address] [place] [address] Performed By: #### 5 7021-8 ####[facility]ATORYCLIA [id number] [place] [address] [place] Nucleated RBC (Bld) [#/Vol] 10*3/uL Normal <0.01 [facility] Comment on above: Order Comment: Speci men Type: BLOOD SPECIMENOrdering Facility: [facility] Address: [address] [place] [place] [address] Performed By: #### 5 7021-8 ####[facility]ATORYCLIA [id number] [place] [address] [place] Nucleated RBC/100 WBC (Bld) [Ratio] 0.0 /100 WBC Normal [facility] Comment on above: Order Comment: Speci men Type: BLOOD SPECIMENOrdering Facility: [facility] Address: [address] [place] [place] [address] Performed By: #### 5 7021-8 ####[facility]ATORYCLIA [id number] [place] [address] [place] Platelet mean volume (Bld) [Entitic vol] 9.2 fL Normal 9.0-12.7 [facility] Comment on above: Order Comment: Speci men Type: BLOOD SPECIMENOrdering Facility: [facility] Address: [address] [place] [place] [address] Performed By: #### 5 7021-8 ####[facility]ORATORYCLIA [id number] [place] [address] [facility] Platelets (Bld) [#/Vol] 371 10*3/uL Normal 150-400 [facility] Comment on above: Order Comment: Speci men Type: BLOOD SPECIMENOrdering Facility: [facility] Address: [address] [place] [place] [address] Performed By: #### 5 7021-8 ####[facility]ORATORYCLIA [id number] [address] [place] RBC (Bld) [#/Vol] 3.80 10*6/uL Low 3.90-5.20 [facility] Comment on above: Order Comment: Speci men Type: BLOOD SPECIMENOrdering Facility: [facility] Address: [address] [facility] [place] [address] Performed By: #### 5 7021-8 ####[facility]ATORYCLIA [id number] [address] [place] WBC (Bld) [#/Vol] 16.09 10*3/uL High 3.70-11.00 [facility] Comment on above: Order Comment: Speci men Type: BLOOD SPECIMENOrdering Facility: [facility] Address: [place] [address] Performed By: #### 5 7021-8 ####[facility]ATORYCLIA [id number] [place] [address] [facility] [place] ECG COMPLETEon 04-30-2023 ECG COMPLETE Ventricular Rate : 8 3 BPM Atrial Rate : 83 BPM P-R Interval : 154 ms QRS Duration : 98 ms Q-T Interval : 414 ms QTC Calculation(Bazett) : 486 ms Calculated P [place] : 67 degrees Calculated R [place] : 44 degrees Calculated T [place] : 56 degrees Normal sinus rhythm Prolonged QT Abnormal ECG When compared with ECG of 29-APR-2023 08:33, No significant change was found Confirmed by AI PUENTE MD ([id number]) on 04/30/2023 9:19:15 PM NAME : SAVANNAH IRVIN PID : [id number] : 1965 Gender : Female Race : ORD : [id number] Procedure Date : Apr 30 2023 09:52:40 Edit Date : Apr 30 2023 21:19:17 Diagnosis: Normal sinus rhythm Prolonged QT Abnormal ECG When compared with ECG of 29-APR-2023 08:33, No significant change was found Confirmed by AI PUENTE MD ([id number]) on 04/30/2023 9:19:15 PM Test Reason : RT Location : 8 : [facility] [place] [facility] Overread By : AI PUENTE MD Edited By : AI PUENTE MD Referred By : , Acquired by : BEN SUNSHINE [facility] NUTRITIONon 04-30-2023 NUTRITION HNO ID: [id number] Author: Martina Carlin RD Service: Nutrition Therapy Author Type: Registered Dietitian Type: Nutrition Filed: 04/30/2023 12:48 PM Note Text: NUTRITION THERAPY INITIAL ASSESSMENT SERVICE DATE: 04/30/2023 SERVICE TIME: 1040 Nutrition Assessment: Recommended Malnutrition Diagnosis: Unable to Identify Malnutrition at this time Nutrition Diagnosis: Problem: Increased nutrient needs Related to: Acute illness As evidenced by: Imaging studies, Medical condition, Laboratory markers, Intake records Estimated kilocalorie needs: 1600 Calorie Calculation Method: [place]-St. Jeor (with activity factor) Estimated protein needs (grams): 90-110 Grams protein determined by: 1.2 - 1.5 g/kg Care Plan: Continue current diet Supplements: Boost Glucose Control Monitor and Evaluation: Meet greater than 75% of estimated needs, Monitor labs, I/Os, vital signs, weight Discharge Recommendations: Diet;Oral Supplements Diet: per physician order Oral Supplements: PRN HPI: Pt presents with L flank pain, appetite change, 30 lb wt loss in 6 months, constipation; hx COPD, HTN, CVA, PE, and blood transfusions -LLL PNA -acute RF with hypoxia, severe sepsis -GERD Intake History: Nutrition Intake Prior to Admission: Unable to determine Current Nutrition Intake: Less than 75% estimated energy needs (per NPR, nutrition inadequate) Current Intake Over time: (1 day) Diet Orders (From admission, onward) Start Ordered 04/29/231729 DIET FOOD CONSISTENCY CONTROLLED START NOW Question: Food Consistency Answer: SOFT AND BITE-SIZED (L6) 04/29/231729 Anthropometrics: Height: 165.1 cm (5' 5) Weight: 81 kg (178 lb 8 oz) Dosing Weight: 76.7 kg (169 lb) Usual Weight: 76.7 kg (169 lb) 02/18/23 Usual Weight Obtained From: Care Everywhere Body mass index is 29.7 kg/m?. Weight change percentage over time: variable wt hx noted' per HANDP pt reports 30 lb wt loss Physical Exam: Reason NFPE not performed: Unable to participate Potential micronutrient deficiency: Unable to determine at this time Edema/Ascites: No edema, No ascites GI Symptoms: Abdominal pain, Constipation Functional Status: Unable to assess Potential Signs of Inflammation: Chronic condition, Hyperglycemia, Leukocytosis, Imaging studies, Microbiologic cultures, Sepsis COPD MNT Billing: $ Routine Care : 1-15 minutes SIGNATURE: Lashonda Carlin RD PATIENT NAME: Savannah Irvin DATE: April 30, 2023 TIME: 12:42 PM Normal [facility] THERAPY NTon 04-30-2023 THERAPY NT HNO ID: [id number] Author: Destiny Cardoza, CCC-HOMICIDE SQUAD CAPTAIN Service: Speech/Swallow Author Type: Speech Language Pathologist Type: Therapy (PT/OT/Speech/Resp) Filed: 04/30/2023 3:42 PM Note Text: Speech Therapy MBSS Evaluation SERVICE DATE: 04/30/2023 SERVICE TIME: 1045 to 1104 ROOM: [place] [address] IMPRESSION: Diet Recommendations: Regular Consistency, Thin Liquids IDDSI Level 0 (Pt was encouraged to choose softer foods as needed given missing dentition.) Swallowing Precautions Recommendations: Alternate bites and sips, Self-monitoring, Small Bite/Sip, Maintain an upright position 20-30 minutes following all oral intake, Anti-Reflux precautions Nursing Recommendations: GERD Precautions, Reinforce an upright position during / after all PO, Reinforce use of swallowing strategies Recommended Consults: GI (to further assess esophageal motility) Recommended Discharge Disposition: No further skilled speech therapy services anticipated Current Hospital Course: Chest x-ray is showing left lower lobe infiltrate Reason for Hospital Admission: Left flank pain; acute respieratory failure with hypoxia Rehabilitation Precautions: Dysphagia Reason for Speech Therapy Consult: Dysphagia Relevant Past Medical History: h/o alcohol abuse, CVA, reflux esophagitis, change in appetite, weight loss (lost 30lbs in the last months) Speech Therapy Problem List: Dysphagia Current Status Oral Hygiene: Clear, moist oral cavity Dentition: Miscellaneous Missing Teeth (pt reports having missing teeth in the back which can make chewing more difficult at times) Current Feeding Method: Oral Current Diet Textures: Regular Consistency, Thin Liquids IDDSI Level 0 Current Level Of Communication: Verbal Current Management Of Secretions: Able to self-manage, Able to complete volitional swallow Oral Motor Exam: (Not formally assessed, but informal observation noted oral motor skills to be WFL) Patient /Caregiver Goals: Eat/Drink Without Restrictions Goals for Plan of Care: Goals: SWALLOWING: Patient / Caregiver will demonstrate knowledge of taught compensatory strategies and dietary consistency recommendations to optimize functional swallow function without overt clinical signs and symptoms of aspiration or dysphagia Progress Toward Goals: Goal Met Patient will be discontinued from speech therapy when no further skilled needs are identified in this setting. PLAN: ST Frequency: Discontinue Therapy Services Reasons Inpatient Therapy Services Discontinued: No skilled needs, All criteria met for setting Treatment Interventions: Dysphagia Management Plan of Care Developed with: Patient Results and Recommendations Discussed With: Patient TREATMENT INTERVENTIONS: Therapy Diagnosis: No Skilled Need Interventions Provided: Modified Barium Swallow Study (43743) $ Modified Barium Swallow Study (67034) Billed Units: 1 unit Skilled Treatment Time (minutes): 19 Home Environment Prior Swallowing Function/Diet Textures: Regular Consistency, Thin Liquids IDDSI Level 0 Please see discipline specific clinical documentation flowsheet for complete details for this therapy evaluation/treatment. SIGNATURE: Destiny Cardoza CCC-HOMICIDE SQU[employer]TAIN PATIENT NAME: Savannah Irvin DATE: April 30, 2023 TIME: 3:42 PM Normal [facility] TOX SCREEN ROUT URon 13-2 023 Amphetamines Confirm (U) [Mass/Vol] Positive Abnormal Negative [facility] Comment on above: Order Comment: Speci men Type: BLOOD SPECIMEN Ordering [facility]: [facility] Address: [address] [place] [address] Result Comment: Cuto ff threshold at 1000 ng/mL. Performed By: #### 5 7021-8 #### [facility] CLIA [id number] [address] [place] [address] [place] BARBITURATES, URINE Negative Normal Negative [facility] Comment on above: Order Comment: Speci men Type: BLOOD SPECIMEN Ordering Facility: [facility] Address: [address] [place] [address] Result Comment: Cuto ff threshold at 200 ng/mL. Performed By: #### 5 7021-8 #### [facility] CLIA [id number] [address] [place] [address] [place] BENZODIAZEPINES, UR Negative Normal Negative [facility] Comment on above: Order Comment: Speci men Type: BLOOD SPECIMEN Ordering Facility: [facility] Address: [address] [place] [address] Result Comment: Cuto ff threshold at 200 ng/mL. Performed By: #### 5 7021-8 #### [facility] CLIA [id number] [address] [place] [address] [place] Cannabinoids Screen Ql (U) Positive Abnormal Negative [facility] Comment on above: Order Comment: Speci men Type: BLOOD SPECIMEN Ordering Facility: [facility] Address: [address] [place] [address] Result Comment: Cuto ff threshold at 50 ng/mL. Performed By: #### 5 7021-8 #### [facility] CLIA [id number] [address] [place] [address] [place] Cocaine Ql (U) Negative Normal Negative [facility] Comment on above: Order Comment: Speci men Type: BLOOD SPECIMEN Ordering Facility: [facility] Address: [address] [place] [address] Result Comment: Cuto ff threshold at 300 ng/mL. Performed By: #### 5 7021-8 #### [facility] CLIA [id number] [address] [place] [address] [place] Opiates Screen Ql (U) Positive Abnormal Negative [facility] Comment on above: Order Comment: Speci men Type: BLOOD SPECIMEN Ordering Facility: [facility] Address: [address] [place] [address] Result Comment: Cuto ff threshold at 300 ng/mL. Performed By: #### 5 7021-8 #### [facility] CLIA [id number] [address] [place] [address] Phencyclidine Ql (U) Negative Normal Negative [facility] Comment on above: Order Comment: Speci men Type: BLOOD SPECIMEN Ordering Facility: [facility] Address: [address] [place] [address] Result Comment: Cuto ff threshold at 25 ng/mL. Performed By: #### 5 7021-8 #### [facility] CLIA [id number] [address] [place] [address] [place] Urinalysis complete pnl Uron 04-30-2023 Urinalysis complete panel (U) COLOR: Yellow CLARITY: Clear GLUCOSE, URINE: Negative BILIRUBIN, URINE: Negative KETONES, URINE: Negative SPECIFIC GRAVITY, UR: 1.009 HEMOGLOBIN/BLOOD, UR: 1+ PH, URINE: 7.0 PROTEIN, URINE: Negative UROBILINOGEN: Negative NITRITES: Negative LEUKEST: 1+ WBC, URINE: >25 /HPF RBC, URINE: 6-10 /HPF BACTERIA: Rare SQUAMOUS EPITHELIAL CELLS: Few CULTURE, URINE: <10,000 CFU/ml Normal Urogenital Sujata Abnormal [facility] Comment on above: Order Comment: Speci men Type: BLOOD SPECIMEN Ordering [facility]: [facility] Address: [address] [place] [address] Performed By: #### 5 7021-8 #### [facility] CLIA [id number] [address] [place] [address] [place] XR MOD BARIUM SWALLOW W SPEE Robert 04-30-2023 XR MOD BARIUM SWALLOW W SPEECH * * *Final Report* * * DATE OF EXAM: Apr 30 2023 11:20AM RHX [id number] - XR MOD BARIUM SWALLOW W SPEECH / PROCEDURE REASON: Dysphagia, unexplained * * * * Physician Interpretation * * * * XR MOD BARIUM SWALLOW W SPEECH Ordering Physician: ORTIZ STROUD MODIFIED BARIUM SWALLOW BY SPEECH THERAPY Clinical Statement: Dysphagia, unexplained FINDINGS: 1.5 minutes fluoroscopy time utilized Modified barium swallow was performed by speech therapy utilizing fluoroscopy in the lateral projection. The patient was observed swallowing mixtures of varying consistencies. Preliminary impression by speech therapy indicated no penetration or aspiration. IMPRESSION: Documentation of fluoroscopy utilized by speech therapy for modified barium swallow. Please see complete report by speech therapy. Paradichlorobenzene Machine Operator: YAZMIN Transcribe Date/Time: Apr 30 2023 12:49P Dictated by : KOBE GUERRA MD This examination was interpreted and the report reviewed and electronically signed by: KOBE GUERRA MD on Apr 30 2023 12:50PM EST [id number] [facility] ALLIED HEALTHon 04-29-2023 ALLIED HEALTH HNO ID: [id number] Author: Velma Asif RT(R) Service: Radiology Author Type: Technologist Type: Allied Health Filed: 04/29/2023 9:05 AM Note Text: Summary: xr Radiology Service Progress Note PATIENT NAME: Savannah Irvin DATE OF SERVICE: April 29, 2023 TIME: 9:05 AM PATIENT IDENTITY VERIFICATION COMPLETED USING TWO (2) IDENTIFIERS: Name and Date of confirmed by patient verbally. FALL SCREENING: Has the patient had 2 falls in the last year or 1 fall with injury or currently using an Ambulatory Assistive Device (Walker, Cane, Wheelchair, Crutches, etc.)? Emergency Room Patient: Screened in ED PATIENT GENDER DATA: Female. status: : No status: N/A PATIENT RELEVANT IMPLANT DATA REVIEWED: Not Applicable RADIOLOGY DEPARTMENT: General X-ray: Exam(s) Completed: Chest X-Ray PERIPHERAL IV DATA: Not applicable SIGNED BY: Velma Asif, RT(R) April 29, 2023 9:05 AM Normal [facility] Bacteria Bld Culton 04-29-20 Bacteria identified Cx Nom (Bld) CULTURE, BLOOD: No growth 5 days Normal [facility] Comment on above: Performed By: #### S LACT #### [facility] CLIA [id number] [address] [place] [address] Bacteria identified Cx Nom (Bld) CULTURE, BLOOD: No growth 5 days Normal [facility] Comment on above: Performed By: #### S LACT #### [facility] CLIA [id number] [address] [place] [address] [place] CBC W Auto Differential pane l (Bld)on 04-29-2023 Basophils (Bld) [#/Vol] 0.09 10*3/uL Normal <0.11 [facility] Comment on above: Order Comment: Speci men Type: BLOOD SPECIMEN Ordering Facility: [facility] Address: [address] [place] [address] Performed By: #### 5 7021-8 #### [facility] CLIA [id number] [address] [place] [address] [place] Basophils/100 WBC (Bld) 0.4 % Normal [facility] Comment on above: Order Comment: Speci men Type: BLOOD SPECIMEN Ordering Facility: [facility] Address: [address] [place] [address] Performed By: #### 5 7021-8 #### [facility] CLIA [id number] [address] [place] [address] [place] Differential cell count method Nom (Bld) [facility] Comment on above: Order Comment: Speci men Type: BLOOD SPECIMEN Ordering Facility: [facility] Address: [address] [place] [address] Performed By: #### 5 7021-8 #### [facility] CLIA [id number] [address] [place] [address] [place] Eosinophils (Bld) [#/Vol] 0.08 10*3/uL Normal <0.46 [facility] Comment on above: Order Comment: Speci men Type: BLOOD SPECIMEN Ordering Facility: [facility] Address: [address] [place] [address] Performed By: #### 5 7021-8 #### [facility] CLIA [id number] [address] [place] [address] [place] Eosinophils/100 WBC (Bld) 0.3 % Normal [facility] Comment on above: Order Comment: Speci men Type: BLOOD SPECIMEN Ordering Facility: [facility] Address: [address] [place] [address] Performed By: #### 5 7021-8 #### [facility] CLIA [id number] [address] [place] [address] [place] Erythrocyte distribution width (RBC) [Ratio] 14.3 % Normal 11.5-15.0 [facility] Comment on above: Order Comment: Speci men Type: BLOOD SPECIMEN Ordering Facility: [facility] Address: [address] [place] [address] Performed By: #### 5 7021-8 #### [facility] CLIA [id number] [address] [place] [address] [place] Hematocrit (Bld) [Volume fraction] 41.7 % Normal 36.0-46.0 [facility] Comment on above: Order Comment: Speci men Type: BLOOD SPECIMEN Ordering Facility: [facility] Address: [address] [place] [address] Performed By: #### 5 7021-8 #### [facility] CLIA [id number] [address] [place] [address] [place] Hemoglobin (Bld) [Mass/Vol] 13.3 g/dL Normal 11.5-15.5 [facility] Comment on above: Order Comment: Speci men Type: BLOOD SPECIMEN Ordering Facility: [facility] Address: [address] [place] [address] Performed By: #### 5 7021-8 #### [facility] CLIA [id number] [address] [place] [address] [place] Immature granulocytes (Bld) [#/Vol] 0.13 10*3/uL High <0.10 [facility] Comment on above: Order Comment: Speci men Type: BLOOD SPECIMEN Ordering Facility: [facility] Address: [address] [place] [address] Performed By: #### 5 7021-8 #### [facility] CLIA [id number] [address] [place] [address] [place] Immature granulocytes/100 WBC (Bld) 0.5 % Normal [facility] Comment on above: Order Comment: Speci men Type: BLOOD SPECIMEN Ordering Facility: [facility] Address: [address] [place] [address] Performed By: #### 5 7021-8 #### [facility] CLIA [id number] [address] [place] [address] [place] Lymphocytes (Bld) [#/Vol] 1.61 10*3/uL Normal 1.00-4.00 [facility] Comment on above: Order Comment: Speci men Type: BLOOD SPECIMEN Ordering Facility: [facility] Address: [address] [place] [address] Performed By: #### 5 7021-8 #### [facility] CLIA [id number] [address] [place] [address] [place] Lymphocytes/100 WBC (Bld) 6.5 % Normal [facility] Comment on above: Order Comment: Speci men Type: BLOOD SPECIMEN Ordering Facility: [facility] Address: [address] [place] [address] Performed By: #### 5 7021-8 #### [facility] CLIA [id number] [address] [place] [address] [place] MCH (RBC) [Entitic mass] 27.5 pg Normal 26.0-34.0 [facility] Comment on above: Order Comment: Speci men Type: BLOOD SPECIMEN Ordering Facility: [facility] Address: [address] [place] [address] Performed By: #### 5 7021-8 #### [facility] CLIA [id number] [address] [place] [address] [place] MCHC (RBC) [Mass/Vol] 31.9 g/dL Normal 30.5-36.0 [facility] Comment on above: Order Comment: Speci men Type: BLOOD SPECIMEN Ordering Facility: [facility] Address: [address] [place] [address] Performed By: #### 5 7021-8 #### [facility] CLIA [id number] [address] [place] [address] [place] MCV (RBC) [Entitic vol] 86.3 fL Normal 80.0-100.0 [facility] Comment on above: Order Comment: Speci men Type: BLOOD SPECIMEN Ordering Facility: [facility] Address: [address] [place] [address] Performed By: #### 5 7021-8 #### [facility] CLIA [id number] [address] [place] [address] [place] Monocytes (Bld) [#/Vol] 1.51 10*3/uL High <0.87 [facility] Comment on above: Order Comment: Speci men Type: BLOOD SPECIMEN Ordering Facility: [facility] Address: [address] [place] [address] Performed By: #### 5 7021-8 #### [facility] CLIA [id number] [address] [place] [address] [place] Monocytes/100 WBC (Bld) 6.1 % Normal [facility] Comment on above: Order Comment: Speci men Type: BLOOD SPECIMEN Ordering Facility: [facility] Address: [address] [place] [address] Performed By: #### 5 7021-8 #### [facility] CLIA [id number] [address] [place] [address] [place] Neutrophils (Bld) [#/Vol] 21.44 10*3/uL High 1.45-7.50 [facility] Comment on above: Order Comment: Speci men Type: BLOOD SPECIMEN Ordering Facility: [facility] Address: [address] [place] [address] Performed By: #### 5 7021-8 #### [facility] CLIA [id number] [address] [place] [address] [place] Neutrophils/100 WBC (Bld) 86.2 % Normal [facility] Comment on above: Order Comment: Speci men Type: BLOOD SPECIMEN Ordering Facility: [facility] Address: [address] [place] [address] Performed By: #### 5 7021-8 #### [facility] CLIA [id number] [address] [place] [address] [place] Nucleated RBC (Bld) [#/Vol] 10*3/uL Normal <0.01 [facility] Comment on above: Order Comment: Speci men Type: BLOOD SPECIMEN Ordering Facility: [facility] Address: [address] [place] [address] Performed By: #### 5 7021-8 #### [facility] CLIA [id number] [address] [place] [address] [place] Nucleated RBC/100 WBC (Bld) [Ratio] 0.0 /100 WBC Normal [facility] Comment on above: Order Comment: Speci men Type: BLOOD SPECIMEN Ordering Facility: [facility] Address: [address] [place] [address] Performed By: #### 5 7021-8 #### [facility] CLIA [id number] [address] [place] [address] [place] Platelet mean volume (Bld) [Entitic vol] 9.2 fL Normal 9.0-12.7 [facility] Comment on above: Order Comment: Speci men Type: BLOOD SPECIMEN Ordering Facility: [facility] Address: [address] [place] [address] Performed By: #### 5 7021-8 #### [facility] CLIA [id number] [address] [place] [address] [place] Platelets (Bld) [#/Vol] 457 10*3/uL High 150-400 [facility] Comment on above: Order Comment: Speci men Type: BLOOD SPECIMEN Ordering Facility: [facility] Address: [place] [address] Performed By: #### 5 7021-8 #### [facility] CLIA [id number] [address] [place], [place] [address] [place] RBC (Bld) [#/Vol] 4.83 10*6/uL Normal 3.90-5.20 [facility] Comment on above: Order Comment: Speci men Type: BLOOD SPECIMEN Ordering Facility: [facility] Address: [place] [address] Performed By: #### 5 7021-8 #### [facility] CLIA [id number] [address] [place], [place] [address] [facility] [place] WBC (Bld) [#/Vol] 24.86 10*3/uL High 3.70-11.00 [facility] Comment on above: Order Comment: Speci men Type: BLOOD SPECIMEN Ordering Facility: [facility] Address: [address] [place] [id number] Performed By: #### 5 7021-8 #### [facility] CLIA [id number] [address] [place], [place] [address] [facility] [place] CT FLANK WO IVCONon 04-29-20 CT FLANK WO IVCON * * *Final Report* * * DATE OF EXAM: Apr 29 2023 10:10AM [facility] 0529 - CT FLANK WO IVCON / PROCEDURE REASON: Flank pain, kidney stone suspected * * * * Physician Interpretation * * * * EXAMINATION: CT ABDOMEN AND PELVIS WITHOUT IV CONTRAST (Renal stone protocol) CLINICAL HISTORY: LEFT flank pain. Hematuria. TECHNIQUE: Non-contrast imaging of the abdomen and pelvis was performed through the urinary tract. Study performed without intravenous or oral contrast to evaluate for urinary tract calculus. MQ: CTAbdPelvF_1 Contrast: IV contrast: None Oral contrast: None CT Radiation dose: Integrated dose-length product (DLP) for this visit = 482.12 mGy*cm. CT Dose Reduction Employed: Automated exposure control(AEC) and iterative recon COMPARISON: None. RESULT: Limitations: Unenhanced imaging is limited for the evaluation of some renal and other intra-abdominal and pelvic pathology. Urinary Tract: Right kidney and ureter: No calculus. No hydronephrosis. No finding to suggest cyst or mass in the unenhanced kidney. Left kidney and ureter: There is a nonobstructive 4 mm calculus within the left mid renal pole. No hydronephrosis. No finding to suggest cyst or mass in the unenhanced kidney. Bladder: No calculus. Abdomen and Pelvis: Liver: Unremarkable. Biliary: S/p cholecystectomy. Spleen: No splenomegaly. Pancreas: Unremarkable. Adrenals: Normal. GI Tract: No bowel dilation. Normal appendix. Few scattered diverticula without evidence of diverticulitis. Small sliding hiatal hernia. Lymph Nodes: No lymphadenopathy. Mesentery/peritoneum: No ascites. Vasculature: Arterial atherosclerotic disease without aneurysm. Pelvis: No mass or ascites. The uterus and adnexa are unremarkable. Bones and Soft Tissues: No acute abnormality. Degenerative central compression deformity of T10. Lower thorax: Consolidative opacity noted within the left lower lobe. Trace left pleural effusion with associated atelectasis. Marine Equipment Test Engineer (topogram) images: No additional findings. IMPRESSION: Nonobstructive 4 mm calculus within the left mid renal pole. No hydronephrosis. Consolidative airspace opacity within the left lower lobe concerning for pneumonia. Trace left pleural effusion likely reactive. Follow-up to resolution. Dictated by Restaurant Hostess: Ishmael Beaver DO IJf MD, have supervised the procedure and/or image review, and agree with the above interpretation and report. Paradichlorobenzene Machine Operator: PSCB Transcribe Date/Time: Apr 29 2023 10:13A Dictated by : ISHMAEL BEAVER DO This examination was interpreted and the report reviewed and electronically signed by: JF LEWIS MD on Apr 29 2023 10:29AM EST [id number] Normal [facility] Comprehensive metabolic 2000 panelon 04-29-2023 Albumin [Mass/Vol] 3.4 g/dL Normal 3.2-5.0 [facility] Comment on above: Order Comment: Speci men Type: BLOOD SPECIMEN Ordering Facility: [facility] Address: [address] [place] [address] Performed By: #### 2 4323-8 #### [facility] CLIA [id number] [address] [place] [address] [place] ALP [Catalytic activity/Vol] 151 U/L High 45-117 [facility] Comment on above: Order Comment: Speci men Type: BLOOD SPECIMEN Ordering Facility: [facility] Address: [address] [place] [address] Performed By: #### 2 4323-8 #### [facility] CLIA [id number] [address] [place] [address] [place] ALT [Catalytic activity/Vol] 16 U/L Normal 13-61 [facility] Comment on above: Order Comment: Speci men Type: BLOOD SPECIMEN Ordering Facility: [facility] Address: [address] [place] [address] Result Comment: Resu lts may be falsely depressed after the administration of Sulfasalazine and/or Sulfapyridine. Performed By: #### 2 4323-8 #### [facility] CLIA [id number] [address] [place] [address] [place] Anion gap [Moles/Vol] 6 mmol/L Normal 5-16 [facility] Comment on above: Order Comment: Speci men Type: BLOOD SPECIMEN Ordering Facility: [facility] Address: [address] [place] [address] Performed By: #### 2 4323-8 #### [facility] CLIA [id number] [address] [place] [address] [place] AST [Catalytic activity/Vol] 27 U/L Normal 8-34 [facility] Comment on above: Order Comment: Speci men Type: BLOOD SPECIMEN Ordering Facility: [facility] Address: [address] [place] [address] Result Comment: Resu lts may be falsely depressed after the administration of Sulfasalazine and/or Sulfapyridine. Performed By: #### 2 4323-8 #### [facility] CLIA [id number] [address] [place] [address] [place] Bilirubin [Mass/Vol] 0.4 mg/dL Normal 0.2-1.0 [facility] Comment on above: Order Comment: Speci men Type: BLOOD SPECIMEN Ordering Facility: [facility] Address: [address] [place] [address] Performed By: #### 2 4323-8 #### [facility] CLIA [id number] [address] [place] [address] [place] Calcium [Mass/Vol] 9.2 mg/dL Normal 8.5-10.5 [facility] Comment on above: Order Comment: Speci men Type: BLOOD SPECIMEN Ordering Facility: [facility] Address: [address] [place] [address] Performed By: #### 2 4323-8 #### [facility] CLIA [id number] [address] [place] [address] [place] Chloride [Moles/Vol] 103 mmol/L Normal 98-107 [facility] Comment on above: Order Comment: Speci men Type: BLOOD SPECIMEN Ordering Facility: [facility] Address: [address] [place] [address] Performed By: #### 2 4323-8 #### [facility] CLIA [id number] [address] [place] [address] [place] CO2 [Moles/Vol] 29 mmol/L Normal 21-32 [facility] Comment on above: Order Comment: Speci men Type: BLOOD SPECIMEN Ordering Facility: [facility] Address: [address] [place] [address] Performed By: #### 2 4323-8 #### [facility] CLIA [id number] [address] [place] [address] [place] Creatinine [Mass/Vol] 0.86 mg/dL Normal 0.51-0.95 [facility] Comment on above: Order Comment: Speci men Type: BLOOD SPECIMEN Ordering Facility: [facility] Address: [address] [place] [address] Result Comment: Yojana ents receiving either N-Acetylcysteine (NAC) or Metamizole prior to venipuncture, may have falsely depressed results. Performed By: #### 2 4323-8 #### [facility] CLIA [id number] [address] [place] [address] [place] Creatinine and Glomerular filtration rate.predicted panel (S/P/Bld) 79 mL/min/1.73m??? Normal >=60 [facility] Comment on above: Order Comment: Merissa farris Type: BLOOD SPECIMEN Ordering Facility: [facility] Address: [address] [place] [address] Result Comment: Aracely mated Glomerular Filtration Rate (eGFR) is calculated using the 2020 CKD-EPI creatinine equation. This equation utilizes serum creatinine, sex, and age as parameters. The creatinine assay has traceable calibration to isotope dilution-mass spectrometry. Refer to KDIGO guidelines for clinical interpretation. In patients with unstable renal function, e.g. those with acute kidney injury, the eGFR may not accurately reflect actual GFR. Performed By: #### 2 4323-8 #### [facility] CLIA [id number] [address] [place] [address] [place] Glucose [Mass/Vol] 113 mg/dL High 70-100 [facility] Comment on above: Order Comment: Merissa farris Type: BLOOD SPECIMEN Ordering Facility: [facility] Address: [address] [place] [address] Result Comment: The [place] [employer] (ADA) provides guidance for cutoff values for fasting glucose and random glucose. The ADA defines fasting as no caloric intake for at least 8 hours. Fasting plasma glucose results between 100 to 125 mg/dL indicate increased risk for diabetes (prediabetes). Fasting plasma glucose results greater than or equal to 126 mg/dL meet the criteria for diagnosis of diabetes. In the absence of unequivocal hyperglycemia, results should be confirmed by repeat testing. In a patient with classic symptoms of hyperglycemia or hyperglycemic crisis, random plasma glucose results greater than or equal to 200 mg/dL meet the criteria for diagnosis of diabetes. Reference: Standards of Medical Care in Diabetes 2016, [place] [employer]. Diabetes Care. 2016.39(Suppl 1). Results may be falsely elevated after the administration of Sulfapyridine. Results may be falsely depressed after the administration of Sulfasalazine. Performed By: #### 2 4323-8 #### [facility] CLIA [id number] [address] [place] [address] [place] Potassium [Moles/Vol] 4.2 mmol/L Normal 3.5-5.1 [facility] Comment on above: Order Comment: Speci men Type: BLOOD SPECIMEN Ordering Facility: [facility] Address: [address] [place] [address] Performed By: #### 2 4323-8 #### [facility] CLIA [id number] [address] [place] [address] [place] Protein [Mass/Vol] 6.9 g/dL Normal 6.0-8.5 [facility] Comment on above: Order Comment: Speci men Type: BLOOD SPECIMEN Ordering Facility: [facility] Address: [address] [place] [address] Performed By: #### 2 4323-8 #### [facility] CLIA [id number] [address] [place] [address] [place] Sodium [Moles/Vol] 138 mmol/L Normal 136-145 [facility] Comment on above: Order Comment: Speci men Type: BLOOD SPECIMEN Ordering Facility: [facility] Address: [address] [place] [address] Performed By: #### 2 4323-8 #### [facility] CLIA [id number] [address] [place] [address] [place] Urea nitrogen [Mass/Vol] 12 mg/dL Normal 7-26 [facility] Comment on above: Order Comment: Speci men Type: BLOOD SPECIMEN Ordering Facility: [facility] Address: [address] [place] [address] Performed By: #### 2 4323-8 #### [facility] CLIA [id number] [address] [place] [address] [place] D dimer FEU PPP-mCncon 04-29 Fibrin D-dimer FEU (PPP) [Mass/Vol] 430 ng/mL FEU Normal <500 [facility] Comment on above: Order Comment: Speci men Type: BLOOD SPECIMENOrdering Facility: [facility] Address: [address] [place] [address] [place] [address] Performed By: #### 4 8065-7 ####[facility] [id number] [place] [address] [place] ECG COMPLETEon 04-29-2023 ECG COMPLETE Ventricular Rate : 1 07 BPM Atrial Rate : 107 BPM P-R Interval : 146 ms QRS Duration : 88 ms Q-T Interval : 338 ms QTC Calculation(Bazett) : 451 ms Calculated P [place] : 50 degrees Calculated R [place] : 36 degrees Calculated T [place] : 29 degrees Sinus tachycardia Otherwise normal ECG When compared with ECG of 26-APR-2021 15:56, T wave amplitude has increased in Lateral leads Confirmed by TISH GOMEZ MD ([id number]) on 04/29/2023 8:51:06 PM NAME : SAVANNAH IRVIN PID : [id number] : 1965 Gender : Female Race : ORD : [id number] Procedure Date : Apr 29 2023 08:33:22 Edit Date : Apr 29 2023 20:51:06 Diagnosis: Sinus tachycardia Otherwise normal ECG When compared with ECG of 26-APR-2021 15:56, T wave amplitude has increased in Lateral leads Confirmed by TISH GOMEZ MD ([id number]) on 04/29/2023 8:51:06 PM Test Reason : STAT Location : 0 : ED 33 Overread By : TISH GOMEZ MD Edited By : TISH GOMEZ MD Referred By : , Acquired by : OB, [facility] ED NOTEon 04-29-2023 ED NOTE HNO ID: [id number] Author: Tesfaye Reid RN Service: ? Author Type: Registered Nurse Type: ED Notes Filed: 04/29/2023 1:39 PM Note Text: Report called to Coty GARCIA in 7M [facility] ED NOTE HNO ID: [id number] Author: Tesfaye Reid RN Service: ? Author Type: Registered Nurse Type: ED Notes Filed: 04/29/2023 11:13 AM Note Text: Pt placed on 2L NC at this time due to O2 saturations dropping to 89% while sleeping. Dr Solorzano aware [facility] ED PROV NOTEon 04-29-2023 ED PROV NOTE HNO ID: [id number] Author: Jace Solorzano MD Service: ? Author Type: Physician Type: ED Provider Notes Filed: 05/10/2023 3:36 PM Note Text: ED Provider Note Patient Name: Savannah Irvin : 1965 SERVICE DATE: 04/29/23 History Patient presents with: Flank Pain: Pt sts that she has left flank pain for a few hours. Pt sts that she was told previously that she had some stones up in her kidneys. History provided by: Patient interpreter and translator used: No Savannah Irvin is a 57 year old female who presents to the ED for further evaluation of left-sided flank pain that began a few hours prior to arrival. Pain radiates into the left lower abdomen. She reports nausea with no vomiting. No constipation or diarrhea. No fever or chills. She said she was told that she had some stones up in her kidneys. She has no chest pain. She has had occasional cough with yellow sputum production. She has no shortness of breath. No lower extremity pain or edema. She has no other complaints at this time. ROS Review of Systems All other systems reviewed and are negative. No pertinent positive findings other than noted in HPI, MDM or ED course. PAST MEDICAL HISTORY Diagnosis Date Alcohol abuse 11/30/2014 Anaphylactic reaction 12/31/2011 Nuts Cervical spine arthritis 08/31/2012 CVA (cerebral infarction) 12/31/2011 CVA (cerebral infarction) 2012 Degenerative lumbar spinal stenosis 08/31/2012 Depression 12/31/2011 Depression 01/15/2015 [facility] Dysthymic disorder Depression (non-psychotic) Hyperlipidemia 12/31/2011 Hypertension Irregular menstrual cycle Irregular periods Low back pain 09/01/2012 Microscopic hematuria 08/25/2012 Morbid obesity due to excess calories (HCC) 10/30/2015 PMH - PAST MEDICAL HISTORY OF neck problems Proteinuria 08/25/2012 Pulmonary embolus (HCC) 11/07/2015 Reflux esophagitis 09/19/2012 Renal stone 09/16/2016 Right-sided lacunar infarction (HCC) 07/03/201506/2015: right middle frontal gyrus anteriorly Tobacco abuse 09/19/2012 Unspecified asthma(493.90) PAST SURGICAL HISTORY Procedure Laterality Date CHOLECYSTECTOMY 07/19/2007 stones COLONOSCOPY FLX DX W/COLLJ SPEC WHEN PFRMD 09/16/2012 Colonoscopy (under EGD in Procedures) COLONOSCOPY SCREENING 01/29/2016 ESOPHAGOGASTRODUODENOS COPY TRANSORAL DIAGNOSTIC 09/16/2012 EGD LIG/TRNSXJ FLP TUBE ABDL/VAG APPR UNI/BI Tubal ligation PULMONARY FUNCTION TEST FAMILY HISTORY Problem Relation Age of Onset other (EPILEPSY [Other]) Father Cancer Maternal Grandmother LUNG Diabetes Paternal Grandmother Hypertension Mother Hypertension Sister Stroke Paternal Grandmother Asthma Son 2 Social History Tobacco Use Smoking status: Some Days Years: 30 Types: Cigarettes Start date: 12/27/1984 Smokeless tobacco: Never Tobacco comments: 2-3 cigarettes daily, 11/29/2015. Substance and Sexual Activity Alcohol use: Yes Alcohol/week: 15.0 - 20.0 standard drinks of alcohol Types: 6 - 8 Cans of Beer (12oz) per week Comment: Quit drinking ETOH, which was getting to be a problem. Drug use: Yes Comment: No recent marijuana use Sexual activity: Yes Partners: Male control/protection: Surgical ALLERGIES Allergen Reactions All Nuts [Other] Anaphylaxis Argan Nut Anaphylaxis [place] Nut Anaphylaxis Cashew Nut Anaphylaxis Hazelnut Anaphylaxis Macadamia Nut Oil Anaphylaxis Peanuts Anaphylaxis Pecan Nut Anaphylaxis [place] Nut Anaphylaxis Pistachio Nut Anaphylaxis Tree Nut Anaphylaxis Records on file/review of medical records: Nursing/triage notes and assessments as well as vitals were reviewed and incorporated Physical Exam Vitals [04/29/23 0804] BP Pulse Temp Temp src Resp SpO2 Weight Height 181/84 (!) 112 37.9 ?C (100.2 ?F) Oral 20 (!) 94 % 78 kg (172 lb) 1.651 m (5' 5) Physical Exam Vitals and nursing note reviewed. Constitutional: Comments: Appears uncomfortable, tearful HENT: Head: Normocephalic and atraumatic. Right Ear: External ear normal. Left Ear: External ear normal. Nose: Nose normal. Mouth/Throat: Mouth: Mucous membranes are moist. Pharynx: Oropharynx is clear. Eyes: Extraocular Movements: Extraocular movements intact. Conjunctiva/sclera: Conjunctivae normal. Pupils: Pupils are equal, round, and reactive to light. Cardiovascular: Rate and Rhythm: Normal rate and regular rhythm. Pulses: Normal pulses. Heart sounds: Normal heart sounds. Pulmonary: Effort: Pulmonary effort is normal. Breath sounds: Normal breath sounds. Abdominal: General: Abdomen is flat. Bowel sounds are normal. Palpations: Abdomen is soft. Tenderness: There is abdominal tenderness. There is no guarding or rebound. Comments: Tender in left lower abdomen. No guarding or rebound. Musculoskeletal: General: Normal range of motion. Cervical back: Normal range of motion and neck supple. Skin: General: Skin is warm and (more content not included)... Normal [facility] FLUABV+SARS-CoV-2+RSV Pnl Re sp SONG+probeon 04-29-2023 FLUABV+SARS-CoV-2+RSV Pnl Resp SONG+probe COVID 19 RESULT: Not detected The method used is RT-PCR or an equivalent NAAT method. Reference Range(the expected result in uninfected individuals): Not detected INFLUENZA A PCR: Not detected INFLUENZA B PCR: Not detected RSV PCR: Not detected Normal [facility] Comment on above: Performed By: #### 9 5941-1 #### [facility] CLIA [id number] [address] [place] [address] [place] Fibrin D-dimer FEU (PPP) [Ma ss/Vol]on 04-29-2023 D DIMER AGE-RELATED CUTOFF 560 ng/mL FEU Normal [facility] Comment on above: Order Comment: Speci men Type: BLOOD SPECIMENOrdering Facility: [facility] Address: [address] [place] [address] Performed By: #### 4 8065-7 ####[facility] [id number] [place] [address] [place] HIGH SENSITIVITY TROPONIN Io n 04-29-2023 Tropinin I.cardiac panel High sensitivity method 8.6 pg/mL Normal 0.0-34.0 [facility] Comment on above: Order Comment: Speci men Type: BLOOD SPECIMEN Ordering Facility: [facility] Address: [address] [place] [address] Result Comment: This assay uses different antibodies than our current assay, and assays, even by the same goodyear welter may recognize different regions of the antibody and cannot be used interchangeably. Expect results of this assay to run higher than the previous assay. Performed By: #### H STROP #### [facility] CLIA [id number] [facility] [place] [address] [place] HISTORY PHYSICALon HISTORY PHYSICAL HNO ID: [id number] Author: Ortiz Stroud MD Service: Hospital Medicine Author Type: Physician Type: HANDP Filed: 04/29/2023 12:17 PM Note Text: HISTORY AND PHYSICAL EXAMINATION SERVICE DATE: 04/29/2023 12:01 PM PRIMARY CARE PHYSICIAN: Ivette Welsh MD CHIEF COMPLAINT: Left flank pain for the past day. HPI: The patient is a 57 year old female a past medical history of tobacco abuse, PE years ago, GI bleed while on Xarelto for her PEs years ago that required blood transfusions who presents to the ER with left flank pain that began early this morning. She states she has been told in the past she has renal calculi and thought maybe she was trying to pass a kidney stone. Upon presentation to the ER she is tachycardic with a heart rate of 112 bpm, tachypneic with a respiratory rate of 25, has a fever of 100.2 and saturating 89% on room air. Her labs show an elevated white blood cell count of 24,000 but lactate is normal at 1.1. Chest x-ray is showing left lower lobe infiltrate. CT of the flank was done due to her flank pain presentation. This is only showing a nonobstructive 4 mm calculus within the mid renal pole without any other abnormal ladies noted other than the left lower lobe pneumonia. Patient had 2 L of oxygen placed by nasal cannu which improved her O2 sat to 95%. She fits criteria for severe sepsis and has acute respiratory failure with hypoxia, probably due to underlying pneumonia, so will require hospitalization for IV antibiotics, oxygen support and close monitoring for deterioration and septic shock. PAST MEDICAL HISTORY Diagnosis Date Alcohol abuse 11/30/2014 Anaphylactic reaction 12/31/2011 Nuts Cervical spine arthritis 08/31/2012 CVA (cerebral infarction) 12/31/2011 CVA (cerebral infarction) 2012 Degenerative lumbar spinal stenosis 08/31/2012 Depression 12/31/2011 Depression 01/15/2015 [facility] Dysthymic disorder Depression (non-psychotic) Hyperlipidemia 12/31/2011 Hypertension Irregular menstrual cycle Irregular periods Low back pain 09/01/2012 Microscopic hematuria 08/25/2012 Morbid obesity due to excess calories (HCC) 10/30/2015 PMH - PAST MEDICAL HISTORY OF neck problems Proteinuria 08/25/2012 Pulmonary embolus (HCC) 11/07/2015 Reflux esophagitis 09/19/2012 Renal stone 09/16/2016 Right-sided lacunar infarction (HCC) 07/03/201506/2015: right middle frontal gyrus anteriorly Tobacco abuse 09/19/2012 Unspecified asthma(493.90) PAST SURGICAL HISTORY Procedure Laterality Date CHOLECYSTECTOMY 07/19/2007 stones COLONOSCOPY FLX DX W/COLLJ SPEC WHEN PFRMD 09/16/2012 Colonoscopy (under EGD in Procedures) COLONOSCOPY SCREENING 01/29/2016 ESOPHAGOGASTRODUODENOS COPY TRANSORAL DIAGNOSTIC 09/16/2012 EGD LIG/TRNSXJ FLP TUBE ABDL/VAG APPR UNI/BI Tubal ligation PULMONARY FUNCTION TEST FAMILY HISTORY Problem Relation Age of Onset other (EPILEPSY [Other]) Father Cancer Maternal Grandmother LUNG Diabetes Paternal Grandmother Hypertension Mother Hypertension Sister Stroke Paternal Grandmother Asthma Son 2 Social History Tobacco Use Smoking status: Some Days Years: 30 Types: Cigarettes Start date: 12/27/1984 Smokeless tobacco: Never Tobacco comments: 2-3 cigarettes daily, 11/29/2015. Substance Use Topics Alcohol use: Yes Alcohol/week: 15.0 - 20.0 standard drinks of alcohol Types: 6 - 8 Cans of Beer (12oz) per week Comment: Quit drinking ETOH, which was getting to be a problem. Drug use: Yes Comment: No recent marijuana use FUNCTIONAL STATE Independent and Lives on own Review of Systems Constitutional: Positive for appetite change, chills and unexpected weight change (Approximately 30 pounds in the past 6 months). Negative for diaphoresis, fatigue and fever. HENT: Negative. Negative for ear pain, sinus pressure and sore throat. Eyes: Negative. Negative for pain and redness. Respiratory: Positive for cough (Yellowish sputum) and dyspnea . Cardiovascular: Positive for chest pain. Negative for palpitations and leg swelling. Gastrointestinal: Positive for constipation. Negative for abdominal pain, diarrhea, nausea and vomiting. Endocrine: Negative. Genitourinary: Positive for dysuria and frequency. Negative for hematuria and urgency. Musculoskeletal: Negative for arthralgias and myalgias. Skin: Negative for rash and wound. Neurological: Negative for dizziness, syncope, speech difficulty, weakness and numbness. Hematological: Negative. Psychiatric/Behavioral : Negative. 04/29/23 0804 04/29/23 0909 04/29/23 1110 04/29/23 1112 BP: 181/84 155/88 114/62 Pulse: (!) 112 (!) 104 (!) 98 Resp: 20 (!) 25 20 Temp: 37.9 ?C (100.2 ?F) 37.7 ?C (99.9 ?F) TempSrc: Oral Oral SpO2: (!) 94% 97% (!) 89% 95% Weight: 78 kg (172 lb) Height: 165.1 cm (5' 5) Physical Exam Constitutional: Appearance: Normal appearance. She is ill-appearing. HENT: Head: Normocephalic (more content not included)... Normal [facility] Legionella Ag Ur Qlon 2022 Legionella sp Ag Ql (U) Negative Normal Negative [facility] Comment on above: Order Comment: Speci men Type: URINE SPECIMENOrdering Facility: [facility] Address: [address] [place] [address] Performed By: #### 3 2781-7 ####[facility] [id number] [address] [place] [facility] SEPSIS LACTATEon 04-29-2023 Lactate [Moles/Vol] 1.1 mmol/L Normal 0.4-2.0 [facility] Comment on above: Order Comment: Speci men Type: BLOOD SPECIMEN Ordering Facility: [facility] Address: [address] [place] [address] Performed By: #### S LACT #### [facility] CLIA [id number] [address] [place] [address] [place] STREPTOCOCCUS PNEUMONIAE AGo n 04-29-2023 STREPTOCOCCUS PNEUMONIAE AG STREP PNEUMO AG RESULT: Positive for Streptococcus pneumoniae antigen. Abnormal [facility] Comment on above: Performed By: #### S PNAG ####[facility] [id number] [place] [address] [place] XR CHEST 1V FRONTAL PORTon 1 XR CHEST 1V FRONTAL PORT * * *Final Repo rt* * * DATE OF EXAM: Apr 29 2023 9:04AM RHX [id number] - XR CHEST 1V FRONTAL PORT / PROCEDURE REASON: Cough * * * * Physician Interpretation * * * * EXAMINATION: CHEST RADIOGRAPH (PORTABLE SINGLE VIEW AP) Exam Date/Time: 04/29/2023 9:04 AM Clinical History: Cough M: XCP_4 Comparison: 11/05/2022 RESULT: Lines, tubes, and devices: None. Lungs and pleura: Mild left basilar airspace opacity. No pleural effusion, or pneumothorax. Cardiomediastinal silhouette: Stable cardiomediastinal silhouette. Osseous structures: No acute osseous finding. IMPRESSION: Mild left basilar airspace opacity could be atelectatic or infectious. Radiographic follow-up recommended. Paradichlorobenzene Machine Operator: YAZMIN Transcribe Date/Time: Apr 29 2023 9:07A Dictated by : JF LEWIS MD This examination was interpreted and the report reviewed and electronically signed by: JF LEWIS MD on Apr 29 2023 9:09AM EST [id number] Normal [facility] .Auto Diffon 02-22-2023 Basophil, Absolute 0.1 10 3/mcL Normal 0.0-0.2 [facility] ([place]) Comment on above: Performed By: #### G FR, DIMER, ANEU, PRO, APTT, MDW, ADIFF, BMP, CBC, TROPHS #### [address] [address] Basophils/100 WBC (Bld) 1.1 % Normal 0.0-2.5 A [facility] ([place]) Comment on above: Performed By: #### G FR, DIMER, ANEU, PRO, APTT, MDW, ADIFF, BMP, CBC, TROPHS #### [address] [address] Eosinophil, Absolute 0.3 10 3/mcL Normal 0.0-0.4 [facility] ([place]) Comment on above: Performed By: #### G FR, DIMER, ANEU, PRO, APTT, MDW, ADIFF, BMP, CBC, TROPHS #### [address] [address] Eosinophils/100 WBC (Bld) 2.5 % Normal 0.0-7.0 [facility] ([place]) Comment on above: Performed By: #### G FR, DIMER, ANEU, PRO, APTT, MDW, ADIFF, BMP, CBC, TROPHS #### [address] [address] Lymphocyte, Absolute 2.6 10 3/mcL Normal 0.8-3.9 [facility] ([place]) Comment on above: Performed By: #### G FR, DIMER, ANEU, PRO, APTT, MDW, ADIFF, BMP, CBC, TROPHS #### [address] [address] Lymphocytes/100 WBC (Bld) 25.4 % Normal 10.0-50.0 [facility] ([place]) Comment on above: Performed By: #### G FR, DIMER, ANEU, PRO, APTT, MDW, ADIFF, BMP, CBC, TROPHS #### [address] [address] Monocyte, Absolute 1.0 10 3/mcL Normal 0.2-1.0 [facility] ([place]) Comment on above: Performed By: #### G FR, DIMER, ANEU, PRO, APTT, MDW, ADIFF, BMP, CBC, TROPHS #### [address] [address] Monocytes/100 WBC (Bld) 9.7 % Normal 1.7-13.0 [facility] ([place]) Comment on above: Performed By: #### G FR, DIMER, ANEU, PRO, APTT, MDW, ADIFF, BMP, CBC, TROPHS #### [address] [address] Neutrophils/100 WBC (Bld) 61.3 % Normal 37.0-80.0 [facility] ([place]) Comment on above: Performed By: #### G FR, DIMER, ANEU, PRO, APTT, MDW, ADIFF, BMP, CBC, TROPHS #### [address] [address] .GFRon 02-22-2023 GFR Non- 73 ml/min/1.73sqm Normal [facility] ([place]) Comment on above: Result Comment: GFR Population mean for , Non- Americans Ages 20-29 = 116 mL/min/1.73 sq.m. Ages 30-39 = 107 mL/min/1.73 sq.m. Ages 40-49 = 99 mL/min/1.73 sq.m. Ages 50-59 = 93 mL/min/1.73 sq.m. Ages 60-69 = 85 mL/min/1.73 sq.m. Ages 70+ = 75 mL/min/1.73 sq.m. Chronic Kidney Disease: Less than 60 mL/min/1.73 square meters End Stage Renal Disease: Less than 15 mL/min/1.73 square meters Performed By: #### G FR, DIMER, ANEU, PRO, APTT, MDW, ADIFF, BMP, CBC, TROPHS #### [address] [address] GFR 89 ml/min/1.73sqm Normal [facility] ([place]) Comment on above: Result Comment: GFR Population mean for , Non- Americans Ages 20-29 = 116 mL/min/1.73 sq.m. Ages 30-39 = 107 mL/min/1.73 sq.m. Ages 40-49 = 99 mL/min/1.73 sq.m. Ages 50-59 = 93 mL/min/1.73 sq.m. Ages 60-69 = 85 mL/min/1.73 sq.m. Ages 70+ = 75 mL/min/1.73 sq.m. Chronic Kidney Disease: Less than 60 mL/min/1.73 square meters End Stage Renal Disease: Less than 15 mL/min/1.73 square meters Performed By: #### G FR, DIMER, ANEU, PRO, APTT, MDW, ADIFF, BMP, CBC, TROPHS #### [address] [address] .MDWon 02-22-2023 Monocyte Distribution Width 16.50 Normal 0.00-20.00 [facility] ([place]) Comment on above: Result Comment: For ED adult patients suspected of sepsis, MDW<=20.0 does not rule out sepsis or risk of sepsis Performed By: #### G FR, DIMER, ANEU, PRO, APTT, MDW, ADIFF, BMP, CBC, TROPHS #### [address] [address] .NEUABSon 02-22-2023 Neutrophil, Absolute 6.4 10 3/mcL High 2.9-6.2 [facility] ([place]) Comment on above: Performed By: #### G FR, DIMER, ANEU, PRO, APTT, MDW, ADIFF, BMP, CBC, TROPHS #### [address] [address] APTTon 02-22-2023 aPTT Coag (Bld) [Time] 35.4 s High 25.0-35.0 [facility]) Comment on above: Result Comment: For Heparin anticoagulation therapy, the recommended therapeutic range is: 50.6-87.4 seconds. Patients on heparin therapy may have an extreme result. Performed By: #### G FR, DIMER, ANEU, PRO, APTT, MDW, ADIFF, BMP, CBC, TROPHS ####[address] [address] Heparin dose (APTT) Unknown Normal [facility] ([place]) Comment on above: Performed By: #### G FR, DIMER, ANEU, PRO, APTT, MDW, ADIFF, BMP, CBC, TROPHS ####[address] [address] BMPon 02-22-2023 BUN/Creatinine Ratio 15 ratio Normal 7-27 [facility]) Comment on above: Performed By: #### G FR, DIMER, ANEU, PRO, APTT, MDW, ADIFF, BMP, CBC, TROPHS #### [address] [address] Calcium [Mass/Vol] 9.1 mg/dL Normal 8.4-10.2 [facility] ([place]) Comment on above: Performed By: #### G FR, DIMER, ANEU, PRO, APTT, MDW, ADIFF, BMP, CBC, TROPHS #### [address] [address] Chloride [Moles/Vol] 103 mmol/L Normal 98-107 [facility] ([place]) Comment on above: Performed By: #### G FR, DIMER, ANEU, PRO, APTT, MDW, ADIFF, BMP, CBC, TROPHS #### [address] [address] CO2 [Moles/Vol] 35 mmol/L High 22-29 [facility] ([place]) Comment on above: Performed By: #### G FR, DIMER, ANEU, PRO, APTT, MDW, ADIFF, BMP, CBC, TROPHS #### [address] [address] Creatinine [Mass/Vol] 0.81 mg/dL Normal 0.55-1.02 [facility] ([place]) Comment on above: Performed By: #### G FR, DIMER, ANEU, PRO, APTT, MDW, ADIFF, BMP, CBC, TROPHS #### [address] [address] Electrolyte Balance 5.0 mEq/L Normal 4.0-15.0 [facility] ([place]) Comment on above: Performed By: #### G FR, DIMER, ANEU, PRO, APTT, MDW, ADIFF, BMP, CBC, TROPHS #### [address] [address] Glucose [Mass/Vol] 75 mg/dL Normal 70-105 [facility] ([place]) Comment on above: Performed By: #### G FR, DIMER, ANEU, PRO, APTT, MDW, ADIFF, BMP, CBC, TROPHS #### [address] [address] Potassium [Moles/Vol] 3.5 mmol/L Normal 3.5-5.1 [facility] ([place]) Comment on above: Performed By: #### G FR, DIMER, ANEU, PRO, APTT, MDW, ADIFF, BMP, CBC, TROPHS #### [address] [address] Sodium [Moles/Vol] 143 mmol/L Normal 136-145 [facility] ([place]) Comment on above: Performed By: #### G FR, DIMER, ANEU, PRO, APTT, MDW, ADIFF, BMP, CBC, TROPHS #### [address] [address] Urea nitrogen [Mass/Vol] 12 mg/dL Normal 7-18 [facility] ([place]) Comment on above: Performed By: #### G FR, DIMER, ANEU, PRO, APTT, MDW, ADIFF, BMP, CBC, TROPHS #### [address] [address] CBCon 02-22-2023 Erythrocyte distribution width (RBC) [Ratio] 14.4 % Normal 11.5-14.5 [facility] ([place]) Comment on above: Performed By: #### G FR, DIMER, ANEU, PRO, APTT, MDW, ADIFF, BMP, CBC, TROPHS #### [address] [address] Hematocrit (Bld) [Volume fraction] 39.6 % Normal 37.0-47.0 [facility] ([place]) Comment on above: Performed By: #### G FR, DIMER, ANEU, PRO, APTT, MDW, ADIFF, BMP, CBC, TROPHS #### [address] [address] Hgb 13.2 G/dL Normal 12.0-16.0 [facility] ([place]) Comment on above: Performed By: #### G FR, DIMER, ANEU, PRO, APTT, MDW, ADIFF, BMP, CBC, TROPHS #### [address] [address] MCH (RBC) [Entitic mass] 28.4 pg Normal 27.0-31.2 [facility]: Performed By: #### G FR, DIMER, ANEU, PRO, APTT, MDW, ADIFF, BMP, CBC, TROPHS #### [address] [address] MCHC 33.3 G/dL Normal 33.0-37.0 [facility] ([place]) Comment on above: Performed By: #### G FR, DIMER, ANEU, PRO, APTT, MDW, ADIFF, BMP, CBC, TROPHS #### [address] [address] MCV (RBC) [Entitic vol] 85.1 fL Normal 80.0-94.0 A [facility] ([place]) Comment on above: Performed By: #### G FR, DIMER, ANEU, PRO, APTT, MDW, ADIFF, BMP, CBC, TROPHS #### [address] [address] Platelet 741 10 3/mcL High 130-400 [facility] ([place]) Comment on above: Performed By: #### G FR, DIMER, ANEU, PRO, APTT, MDW, ADIFF, BMP, CBC, TROPHS #### [address] [address] Platelet mean volume (Bld) [Entitic vol] 6.8 fL Low 7.4-10.4 [facility] ([place]) Comment on above: Performed By: #### G FR, DIMER, ANEU, PRO, APTT, MDW, ADIFF, BMP, CBC, TROPHS #### [address] [address] RBC 4.66 10 6/mcL Normal 4.20-5.40 [facility] ([place]) Comment on above: Performed By: #### G FR, DIMER, ANEU, PRO, APTT, MDW, ADIFF, BMP, CBC, TROPHS #### [address] [address] WBC 10.4 10 3/mcL Normal 4.6-10.8 [facility] ([place]) Comment on above: Performed By: #### G FR, DIMER, ANEU, PRO, APTT, MDW, ADIFF, BMP, CBC, TROPHS #### [address] [address] DIMERon 02-22-2023 D-Dimer 250 ng/mL D-DU High 0-230 [facility] ([place]) Comment on above: Result Comment: The result of the D-Dimer test should be evaluated in the context of all the clinical and laboratory data available. In those instances where the laboratory result does not agree with the clinical evaluation, additional tests should be performed accordingly. If the D-Dimer result is used to exclude DVT or PE, the recommended cutoff value is less than 230 ng/mL. The D-Dimer result should not be used alone to rule in DVT/PE, but should be used in conjunction with a clinical pretest probability (PTP)assessment model to exclude venous thromboembolism (VTE) in outpatients suspected of deep venous thrombosis (DVT) and pulmonary embolism (PE). Performed By: #### G FR, DIMER, ANEU, PRO, APTT, MDW, ADIFF, BMP, CBC, TROPHS #### [address] [place], [place] [address] LABORATORYOrdered By: SYSTEM SYSTEM on 02-22-2023 Troponin I.cardiac DL <= 0.01 ng/mL [Mass/Vol] 9.9 ng/L Invalid Interpretation Code 0.0 - 51.4 ng/L AO ADM SS Basophil, Absolute 0.1 103/mcL Invalid Interpretation Code 0.0 - 0.2 10^3/mcL AO Workflow SS Basophils/100 WBC (Bld) 1.1 % Invalid Interpretation Code 0.0 - 2.5 % AO Workflow SS Calcium [Mass/Vol] 9.1 mg/dL Invalid Interpretation Code 8.4 - 10.2 mg/dL AO ADM SS Chloride [Moles/Vol] 103 mmol/L Invalid Interpretation Code 98 - 107 mmol/L AO ADM SS CO2 [Moles/Vol] 35 mmol/L Invalid Interpretation Code 22 - 29 mmol/L AO ADM SS Creatinine [Mass/Vol] 0.81 mg/dL Invalid Interpretation Code 0.55 - 1.02 mg/dL AO ADM SS Electrolyte Balance 5.0 mEq/L Invalid Interpretation Code 4.0 - 15.0 mEq/L AO ADM SS Eosinophil, Absolute 0.3 103/mcL Invalid Interpretation Code 0.0 - 0.4 10^3/mcL AO Workflow SS Eosinophils/100 WBC (Bld) 2.5 % Invalid Interpretation Code 0.0 - 7.0 % AO Workflow SS Erythrocyte distribution width (RBC) [Ratio] 14.4 % Invalid Interpretation Code 11.5 - 14.5 % AO Workflow SS GFR/1.73 sq M.predicted among blacks MDRD (S/P/Bld) [Vol rate/Area] 89 ml/min/1.73sqm Invalid Interpretation Code AO Chemistry S Comment on above: Interpretive Data: GFR Population mean for , Non- Americans Ages 20-29 = 116 mL/min/1.73 sq.m. Ages 30-39 = 107 mL/min/1.73 sq.m. Ages 40-49 = 99 mL/min/1.73 sq.m. Ages 50-59 = 93 mL/min/1.73 sq.m. Ages 60-69 = 85 mL/min/1.73 sq.m. Ages 70+ = 75 mL/min/1.73 sq.m. Chronic Kidney Disease: Less than 60 mL/min/1.73 square meters End Stage Renal Disease: Less than 15 mL/min/1.73 square meters GFR/1.73 sq M.predicted among non-blacks MDRD (S/P/Bld) [Vol rate/Area] 73 ml/min/1.73sqm Invalid Interpretation Code AO Chemistry S Comment on above: Interpretive Data: GFR Population mean for , Non- Americans Ages 20-29 = 116 mL/min/1.73 sq.m. Ages 30-39 = 107 mL/min/1.73 sq.m. Ages 40-49 = 99 mL/min/1.73 sq.m. Ages 50-59 = 93 mL/min/1.73 sq.m. Ages 60-69 = 85 mL/min/1.73 sq.m. Ages 70+ = 75 mL/min/1.73 sq.m. Chronic Kidney Disease: Less than 60 mL/min/1.73 square meters End Stage Renal Disease: Less than 15 mL/min/1.73 square meters Glucose [Mass/Vol] 75 mg/dL Invalid Interpretation Code 70 - 105 mg/dL AO ADM SS Hematocrit (Bld) [Volume fraction] 39.6 % Invalid Interpretation Code 37.0 - 47.0 % AO Workflow SS Hemoglobin (Bld) [Mass/Vol] 13.2 G/dL Invalid Interpretation Code 12.0 - 16.0 G/dL AO Workflow SS Lymphocyte, Absolute 2.6 103/mcL Invalid Interpretation Code 0.8 - 3.9 10^3/mcL AO Workflow SS Lymphocytes/100 WBC (Bld) 25.4 % Invalid Interpretation Code 10.0 - 50.0 % AO Workflow SS MCH (RBC) [Entitic mass] 28.4 pg Invalid Interpretation Code 27.0 - 31.2 pg AO Workflow SS MCHC 33.3 G/dL Invalid Interpretation Code 33.0 - 37.0 G/dL AO Workflow SS MCV (RBC) [Entitic vol] 85.1 fL Invalid Interpretation Code 80.0 - 94.0 fL AO Workflow SS Monocyte distribution width Auto (Bld) [Entitic vol] 16.50 1 Invalid Interpretation Code 0.00 - 20.00 AO Workflow SS Comment on above: Result Comment: For ED adult patients suspected of sepsis, MDW<=20.0 does not rule out sepsis or risk of sepsis Monocyte, Absolute 1.0 103/mcL Invalid Interpretation Code 0.2 - 1.0 10^3/mcL AO Workflow SS Monocytes/100 WBC (Bld) 9.7 % Invalid Interpretation Code 1.7 - 13.0 % AO Workflow SS Neutrophil, Absolute 6.4 103/mcL Invalid Interpretation Code 2.9 - 6.2 10^3/mcL AO Workflow SS Neutrophils/100 WBC (Bld) 61.3 % Invalid Interpretation Code 37.0 - 80.0 % AO Workflow SS Platelet mean volume (Bld) [Entitic vol] 6.8 fL Invalid Interpretation Code 7.4 - 10.4 fL AO Workflow SS Platelets (Bld) [#/Vol] 741 103/mcL Invalid Interpretation Code 130 - 400 10^3/mcL AO Workflow SS Potassium [Moles/Vol] 3.5 mmol/L Invalid Interpretation Code 3.5 - 5.1 mmol/L AO ADM SS RBC (Bld) [#/Vol] 4.66 106/mcL Invalid Interpretation Code 4.20 - 5.40 10^6/mcL AO Workflow SS Sodium [Moles/Vol] 143 mmol/L Invalid Interpretation Code 136 - 145 mmol/L AO ADM SS Troponin I.cardiac DL <= 0.01 ng/mL [Mass/Vol] 9.1 ng/L Invalid Interpretation Code 0.0 - 51.4 ng/L AO ADM SS Urea nitrogen [Mass/Vol] 12 mg/dL Invalid Interpretation Code 7 - 18 mg/dL AO ADM SS Urea nitrogen/Creatinine [Mass ratio] 15 ratio Invalid Interpretation Code 7 - 27 ratio AO ADM SS WBC (Bld) [#/Vol] 10.4 103/mcL Invalid Interpretation Code 4.6 - 10.8 10^3/mcL AO Workflow SS LABORATORYOrdered By: Vandana Casas on 02-22-2023 aPTT Coag (PPP) [Time] 35.4 s Invalid Interpretation Code 25.0 - 35.0 seconds AO [facility] SS Comment on above: Interpretive Data: F or Heparin anticoagulation therapy, the recommended therapeutic range is: 50.6-87.4 seconds. Patients on heparin therapy may have an extreme result. Fibrin D-dimer DDU (PPP) [Mass/Vol] 250 ng/mL D-DU Invalid Interpretation Code 0 - 230 ng/mL D-DU AO [facility] Comment on above: Interpretive Data: Susana peterson result of the D-Dimer test should be evaluated in the context of all the clinical and laboratory data available. In those instances where the laboratory result does not agree with the clinical evaluation, additional tests should be performed accordingly. If the D-Dimer result is used to exclude DVT or PE, the recommended cutoff value is less than 230 ng/mL. The D-Dimer result should not be used alone to rule in DVT/PE, but should be used in conjunction with a clinical pretest probability (PTP)assessment model to exclude venous thromboembolism (VTE) in outpatients suspected of deep venous thrombosis (DVT) and pulmonary embolism (PE). Heparin dose (APTT) Unknown (02/22/23 12:28 PM) Invalid Interpretation Code AO [facility] SS INR Coag (PPP) [Relative time] 0.9 {INR} Invalid Interpretation Code AO [facility] SS Comment on above: Interpretive Data: Susana peterson [employer] (CHEST, 1992, [id number]) recommended therapeutic range for oral anticoagulant therapy is: LOW RISK: Prophylaxis of venous thrombosis INR: 2.0-3.0 Treatment of pulmonary embolism 2.0-3.0 Prevention of systemic embolism 2.0-3.0 HIGH RISK: Mechanical prosthetic valves 2.5-3.5 PT Coag (PPP) [Time] 10.2 s Invalid Interpretation Code 9.1 - 14.2 seconds AO [facility] SS PROon 02-22-2023 PT Coag (PPP) [Time] 10.2 s Normal 9.1-14.2 [facility] ([place]) Comment on above: Performed By: #### G FR, DIMER, ANEU, PRO, APTT, MDW, ADIFF, BMP, CBC, TROPHS ####[id number] [place], [place] [address] PT International Ratio 0.9 Normal [facility] ([place]) Comment on above: Result Comment: [employer] (CHEST, 1992, [id number]) recommended therapeutic range for oral anticoagulant therapy is: LOW RISK: Prophylaxis of venous thrombosis INR: 2.0-3.0 Treatment of pulmonary embolism 2.0-3.0 Prevention of systemic embolism 2.0-3.0 HIGH RISK: Mechanical prosthetic valves 2.5-3.5 Performed By: #### G FR, DIMER, ANEU, PRO, APTT, MDW, ADIFF, BMP, CBC, TROPHS ####[address] [address] TROPHSon 02-22-2023 Troponin I High Sensitivity 9.9 ng/L Normal 0.0-51.4 [facility] ([place]) Comment on above: Performed By: #### T [facility] #### [address] [address] Troponin I High Sensitivity 9.1 ng/L Normal 0.0-51.4 [facility] ([place]) Comment on above: Performed By: #### G FR, DIMER, ANEU, PRO, APTT, MDW, ADIFF, BMP, CBC, TROPHS #### [address] [address] XR CHEST 1 VIEWon 02-22-2023 XR CHEST 1 VIEW ORIGINAL EXAMINATION: ONE XRAY VIEW OF THE CHEST TECHNIQUE: AP upright COMPARISON: Chest 10/09/2015 HISTORY: ORDERING SYSTEM PROVIDED HISTORY: Reason for Exam: chest pain FINDINGS: Support devices: None Cardiomediastinal: The heart is stable in size and configuration. Lungs: No infiltrates, pulmonary edema, consolidation or large pleural effusion. Pneumothorax: None Osseous: No acute osseous pathology. Spondylotic changes throughout the thoracic spine. IMPRESSION: No acute pulmonary disease. Interpreted by: Jacob Frazier MD Preliminary Report By: Jacob Frazier MD Electronically signed By Jacob Frazier MD Dictated Date: 02/22/2023 12:27:47 PM Prelim Date: 02/22/2023 12:28:42 PM Sign Date: 02/22/2023 12:28:42 PM Ordering Provider: ELKE GARCIA [facility] ([place]) Absolute lymphocyte countOrd ered By: Jama Bustamante on 02-11-2023 Lymphocytes Auto (Unsp spec) [#/Vol] 1.85 10*3/uL 0.83-4.51 [facility] Basophil percentageOrdered B y: Jama Bustamante on 02-11-2023 Basophils/100 WBC (Bld) 0.4 % 0-1 [facility] Chloride [Moles/Vol] 103 mmol/L 98-107 [facility] Eosinophils/100 WBC (Bld) 1.7 % 0-5 [facility] Glucose [Mass/Vol] 98 mg/dL 74-106 [facility] Neutrophils (Bld) [#/Vol] 7.8 10*3/uL 2.0-7.7 [facility] Neutrophils/100 WBC (Bld) 68.8 % 47-70 [facility] Potassium [Moles/Vol] 3.4 mmol/L 3.5-5.1 [facility] Sodium [Moles/Vol] 138 mmol/L 136-145 [facility] WBC (Bld) [#/Vol] 11.3 10*3/uL 4.4-11.0 [facility] [place] Blood erythrocytes count (nu mber/volume)Ordered By: Jama Bustamante on 02-11-2023 RBC (Bld) [#/Vol] 4.31 10*6/uL 4.2-5.4 [facility] [place] Blood hemoglobin measurement (mass/volume)Ordered By: Jama Bustamante on 02-11-2023 Hemoglobin (Bld) [Mass/Vol] 12.2 g/dL 12.0-15.0 [facility] Blood lymphocytes/100 leukoc ytesOrdered By: Jama Bustamante on 02-11-2023 Lymphocytes/100 WBC (Bld) 16.4 % 19-41 [facility] Blood monocytes/100 leukocyt esOrdered By: Jama Bustamante on 02-11-2023 Monocytes/100 WBC (Bld) 12.0 % 0-[address] [facility] Blood platelet mean volumeOr dered By: Jama Bustamante on 02-11-2023 Platelet mean volume (Bld) [Entitic vol] 9.7 fL 6.2-12.0 [facility] Determination of erythrocyte mean corpuscular volume (MCV)Ordered By: Jama Bustamante on 02-11-2023 MCV (RBC) [Entitic vol] 88.9 fL 81-[address] [facility] Hematocrit Auto (Bld) [Volum e fraction]Ordered By: Jama Bustamante on 02-11-2023 Hematocrit (Bld) [Volume fraction] 38.3 % 37-47 [facility] Laboratory - Chemistry and C hemistry - challengeOrdered By: Jama Bustamante on 02-11-2023 CO2 [Moles/Vol] 30.0 mmol/L 21.0-32.0 [facility] Urea nitrogen/Creatinine [Mass ratio] 12.0 mg/mg 10-20 [facility] Laboratory - Hematology and Cell countsOrdered By: Jama Bustamante on 02-11-2023 Erythrocyte distribution width (RBC) [Entitic vol] 45.0 fL 35.1-43.9 [facility] Erythrocyte distribution width (RBC) [Ratio] 13.7 % 11.6-14.6 [facility] Immature granulocytes/100 WBC (Bld) 0.700 % 0.0-0.9 [facility] Comment on above: IG% - Immature Granu locytes (promyelocytes, myelocytes and metamyelocytes) > 1% indicates that a LEFT SHIFT is Present. MCH (RBC) [Entitic mass] 28.3 pg 27.0-32.0 [facility] Nucleated RBC/100 WBC (Bld) [Ratio] 0 % 0-5 [facility] MCHC Auto (RBC) [Mass/Vol]Or dered By: Jama Bustamante on 02-11-2023 MCHC (RBC) [Mass/Vol] 31.9 g/dL 32-36 [facility] Comment on above: Delta: 30.2 on 02/10 No Panel InformationOrdered By: Jama Bustamante on 02-11-2023 Estimated Creatinine Clearance Calc 72.33 ml/min [facility] Estimated GFR (MDRD) Amer 102 mL/min >60 [facility] Comment on above: GFR Calc Estimated GFR (MDRD) Non-Af Amer 85 mL/min >60 [facility] Comment on above: Non- GFR Calc Platelets bldOrdered By: Gricel Bustamante on 02-11-2023 Platelets (Bld) [#/Vol] 381 10*3/uL 150-450 [facility] Serum or plasma calcium scarlett urement (mass/volume)Ordered By: Jama Bustamante on 02-11-2023 Calcium [Mass/Vol] 8.9 mg/dL 8.5-10.1 [facility] Serum or plasma creatinine m easurement (mass/volume)Ordered By: Jama Bustamante on 02-11-2023 Creatinine [Mass/Vol] 0.75 mg/dL 0.55-1.02 [facility] Comment on above: The validity of the calculated GFR & GFRAA in patients over 70 years has not been determined. Clinical correlation is essential. Serum or plasma urea nitroge n measurement (mass/volume)Ordered By: Jama Bustamante on 02-11-2023 Urea nitrogen [Mass/Vol] 9 mg/dL 7-18 [facility] Thin prep Papanicolaou smear with manual screeningOrdered By: Jama Bustamante on 02-11-2023 Thin prep Papanicolaou smear with manual screening 5 5-15 [facility] Review by pathologistOrdered By: Jama Bustamante on 02-09-2023 Pathologist review Song (Unsp spec) [Interp] Reviewed [facility] Comment on above: Previous reported re sult: Vaishali brumfield Edited by: RGOOD on 02/10/23:1012Neutrophilic leukocytosis.Clinical correlation necessary.Dakota Lyle M.D. 02/10/23 AMENDED REPORT 02/10/23 1012 PATH REV previously reported as: May foll Basophil percentageOrdered B y: Omega Mejía on 02-08-2023 Lactate [Moles/Vol] 0.9 mmol/L 0.4-2.0 [facility] [place] Basophil percentage >100 SEEN /hpf 0-[address] [facility] Bilirubin [Mass/Vol] 1.30 mg/dL 0.20-1.00 [facility] Comment on above: For patients on eltr ombopag therapy, use of Dim[facility] TBIL is not recommended. Protein [Mass/Vol] 7.3 g/dL 6.4-8.2 [facility] Bilirubin Test strip Ql (U)O rdered By: Omega Mejía on 02-08-2023 Bilirubin Ql (U) 1 mg/dL Negative [facility] Comment on above: COLOR OF URINE MAY A FFECT DIPSTICK RESULTS. Blood manual differential co mment interpretation (narrative result)Ordered By: Omega Mejía on 02-08-2023 Manual differential comment Song (Bld) [Interp] SCANNED [facility] Culture, urineOrdered By: Jimmy Bustamante on 02-08-2023 Bacteria identified Cx Nom (U) Presumptive E. coli [facility] Ketones Test strip Ql (U)Ord ered By: Omega Mejía on 02-08-2023 Ketones Ql (U) 50 mg/dl Negative [facility] Laboratory - Chemistry and C hemistry - challengeOrdered By: Omega Mejía on 02-08-2023 ALP [Catalytic activity/Vol] 124 U/L 45-117 [facility] ALT [Catalytic activity/Vol] 18 U/L 13-56 [facility] Globulin (S) [Mass/Vol] 4.2 g/dL 2.2-4.[address] [facility] Lipase [Catalytic activity/Vol] 14 U/L 13-75 [facility] Comment on above: Please note:LIPASE r evised reference range effective 22. New Lipase methodology. Expected to produce lower values than the previous assay method. NEW Reference Range: 13 - 75 U/L Laboratory - Chemistry and C hemistry - challengeOrdered By: Jama Bustamante on 02-08-2023 Magnesium [Mass/Vol] 1.8 mg/dL 1.6-2.6 [facility] Laboratory - Microbiology an d Antimicrobial susceptibilityOrdered By: Omega Mejía on 02-08-2023 Bacteria identified Cx Nom (Bld) Escherichia coli [facility] Bacteria identified Cx Nom (Bld) Escherichia coli [facility] Mucus LM Ql (Urine sed)Order ed By: Omega Mejía on 02-08-2023 Mucus Ql (Urine sed) 0 SEEN /hpf [facility] Nitrite Test strip Ql (U)Ord ered By: Omeag Mejía on 02-08-2023 Nitrite Ql (U) Positive Negative [facility] Protein Test strip Ql (U)Ord ered By: Omega Mejía on 02-08-2023 Protein Ql (U) 100 mg/dl Negative [facility] Serum or plasma albumin scarlett urement (mass/volume)Ordered By: Omega Mejía on 02-08-2023 Albumin [Mass/Vol] 3.1 g/dL 3.2-5.0 [facility] Serum or plasma albumin/glob ulin mass ratioOrdered By: Omega Mejía on 02-08-2023 Albumin/Globulin [Mass ratio] 0.7 {ratio} 0.9-2.4 [facility] Squamous epithelial cells de tection in urine sediment by light microscopyOrdered By: Omega Mejía on 02-08-2023 Epithelial cells.squamous LM Ql (Urine sed) 0 SEEN /hpf 5-10 [facility] Thin prep Papanicolaou smear with manual screeningOrdered By: Omega Mejía on 02-08-2023 Thin prep Papanicolaou smear with manual screening 28 U/L 15-37 [facility] Urine blood detectionOrdered By: Omega Mejía on 02-08-2023 RBC Ql (U) 250 /ul Negative [facility] RBC Ql (U) > 100 SEEN /hpf 0-5 [facility] Urine clarityOrdered By: Marco Mejía on 02-08-2023 Clarity (U) Cloudy Clear [facility] Urine color determinationOrd ered By: Omega Mejía on 02-08-2023 Color (U) Brown Yellow [facility] Urine glucose detectionOrder ed By: Omega Mejía on 02-08-2023 Glucose Ql (U) Normal mg/dl Normal [facility] Urine leukocyte esterase det ection by dipstickOrdered By: Omega Mejía on 02-08-2023 Leukocyte esterase Test strip Ql (U) 500 /ul Negative [facility] Urine pHOrdered By: Omega Mejía on 02-08-2023 pH (U) 6.5 [pH] 5.0 - 8.0 [facility] Urine sediment bacteria coun t by microscopy (number/high power field)Ordered By: Omega Mejía on 02-08-2023 Bacteria LM.HPF (Urine sed) [#/Area] 1 /[HPF] None Seen [facility] Urine specific gravity measu rementOrdered By: Omega Mejía on 02-08-2023 Specific gravity (U) [Rel density] 1.015 1.002-1.030 [facility] Urobilinogen Auto test strip Ql (U)Ordered By: Omega Mejía on 02-08-2023 Urobilinogen Ql (U) 4 mg/dl Normal [facility] [place] Absolute lymphocyte countOrd ered By: Dr. Rubi on 12-30-2022 Lymphocytes Auto (Unsp spec) [#/Vol] 3.48 10*3/uL 0.83-4.51 [facility] Basophil percentageOrdered B y: Dr. Rubi on 12-30-2022 Basophil percentage 0-5 SEEN /hpf 0-5 [facility] Basophils/100 WBC (Bld) 0.5 % 0-1 [facility] Bilirubin [Mass/Vol] 0.30 mg/dL 0.20-1.00 [facility] Comment on above: For patients on eltr ombopag therapy, use of [facility] TBIL is not recommended. Chloride [Moles/Vol] 105 mmol/L 98-107 [facility] Eosinophils/100 WBC (Bld) 2.2 % 0-5 [facility] Glucose [Mass/Vol] 100 mg/dL 74-106 [facility] Comment on above: Fasting Glucose resu lt from 100 to 125 mg/dL suggests IMPAIRED HOMEOSTASIS per A.D.A. criteria. Neutrophils (Bld) [#/Vol] 9.2 10*3/uL 2.0-7.7 [facility] Neutrophils/100 WBC (Bld) 66.2 % 47-70 [facility] Potassium [Moles/Vol] 3.7 mmol/L 3.5-5.1 [facility] Protein [Mass/Vol] 7.7 g/dL 6.4-8.2 [facility] Sodium [Moles/Vol] 139 mmol/L 136-145 [facility] WBC (Bld) [#/Vol] 14.0 10*3/uL 4.4-11.0 [facility] [place] Bilirubin Test strip Ql (U)O rdered By: Dr. Rubi on 12-30-2022 Bilirubin Ql (U) Negative Negative [facility] Blood erythrocytes count (nu mber/volume)Ordered By: Dr. Rubi on 12-30-2022 RBC (Bld) [#/Vol] 5.23 10*6/uL 4.2-5.4 [facility] [place] Blood hemoglobin measurement (mass/volume)Ordered By: Dr. Rubi on 12-30-2022 Hemoglobin (Bld) [Mass/Vol] 14.9 g/dL 12.0-15.0 [facility] Blood lymphocytes/100 leukoc ytesOrdered By: Dr. Rubi on 12-30-2022 Lymphocytes/100 WBC (Bld) 24.9 % 19-41 [facility] Blood monocytes/100 leukocyt esOrdered By: Dr. Rubi on 12-30-2022 Monocytes/100 WBC (Bld) 5.8 % 0-[address] [facility] Blood platelet mean volumeOr dered By: Dr. Rubi on 12-30-2022 Platelet mean volume (Bld) [Entitic vol] 9.1 fL 6.2-12.0 [facility] Determination of erythrocyte mean corpuscular volume (MCV)Ordered By: Dr. Rubi on 12-30-2022 MCV (RBC) [Entitic vol] 88.0 fL 81-[address] [facility] Hematocrit Auto (Bld) [Volum e fraction]Ordered By: Dr. Rubi on 12-30-2022 Hematocrit (Bld) [Volume fraction] 46.0 % 37-47 [facility] Ketones Test strip Ql (U)Ord ered By: Dr. Rubi on 12-30-2022 Ketones Ql (U) Negative Negative [facility] Laboratory - Chemistry and C hemistry - challengeOrdered By: Dr. Rubi on 12-30-2022 ALP [Catalytic activity/Vol] 117 U/L 45-117 [facility] ALT [Catalytic activity/Vol] 16 U/L 13-56 [facility] CO2 [Moles/Vol] 29.0 mmol/L 21.0-32.0 [facility] Globulin (S) [Mass/Vol] 4.4 g/dL 2.2-4.[address] [facility] Lipase [Catalytic activity/Vol] 32 U/L 13-75 [facility] Comment on above: Please note:LIPASE r evised reference range effective 22. New Lipase methodology. Expected to produce lower values than the previous assay method. NEW Reference Range: 13 - 75 U/L Urea nitrogen/Creatinine [Mass ratio] 16.6 mg/mg 10-20 [facility] Laboratory - Hematology and Cell countsOrdered By: Dr. Rubi on 12-30-2022 Erythrocyte distribution width (RBC) [Entitic vol] 43.5 fL 35.1-43.9 [facility] Erythrocyte distribution width (RBC) [Ratio] 13.5 % 11.6-14.6 [facility] Immature granulocytes/100 WBC (Bld) 0.400 % 0.0-0.9 [facility] Comment on above: IG% - Immature Granu locytes (promyelocytes, myelocytes and metamyelocytes) > 1% indicates that a LEFT SHIFT is Present. MCH (RBC) [Entitic mass] 28.5 pg 27.0-32.0 [facility] Nucleated RBC/100 WBC (Bld) [Ratio] 0 % 0-5 [facility] MCHC Auto (RBC) [Mass/Vol]Or dered By: Dr. Rubi on 12-30-2022 MCHC (RBC) [Mass/Vol] 32.4 g/dL 32-36 [facility] Mucus LM Ql (Urine sed)Order ed By: Dr. Rubi on 12-30-2022 Mucus Ql (Urine sed) 0 SEEN /hpf [facility] Nitrite Test strip Ql (U)Ord ered By: Dr. Rubi on 12-30-2022 Nitrite Ql (U) Negative Negative [facility] No Panel InformationOrdered By: Dr. Rubi on 12-30-2022 Estimated Creatinine Clearance Calc 60.27 ml/min [facility] Estimated GFR (MDRD) Amer 83 mL/min >60 [facility] Comment on above: GFR Calc Estimated GFR (MDRD) Non-Af Amer 68 mL/min >60 [facility] Comment on above: Non- GFR Calc Platelets bldOrdered By: Dr. Rubi on 12-30-2022 Platelets (Bld) [#/Vol] 533 10*3/uL 150-450 [facility] Protein Test strip Ql (U)Ord ered By: Dr. Rubi on 12-30-2022 Protein Ql (U) 15 mg/dl Negative [facility] Serum or plasma albumin scarlett urement (mass/volume)Ordered By: Dr. Rubi on 12-30-2022 Albumin [Mass/Vol] 3.3 g/dL 3.2-5.0 [facility] Serum or plasma albumin/glob ulin mass ratioOrdered By: Dr. Rubi on 12-30-2022 Albumin/Globulin [Mass ratio] 0.8 {ratio} 0.9-2.4 [facility] Serum or plasma calcium scarlett urement (mass/volume)Ordered By: Dr. Rubi on 12-30-2022 Calcium [Mass/Vol] 9.3 mg/dL 8.5-10.1 [facility] Serum or plasma creatinine m easurement (mass/volume)Ordered By: Dr. Rubi on 12-30-2022 Creatinine [Mass/Vol] 0.90 mg/dL 0.55-1.02 [facility] Comment on above: The validity of the calculated GFR & GFRAA in patients over 70 years has not been determined. Clinical correlation is essential. Serum or plasma urea nitroge n measurement (mass/volume)Ordered By: Dr. Rubi on 12-30-2022 Urea nitrogen [Mass/Vol] 15 mg/dL 7-18 [facility] Squamous epithelial cells de tection in urine sediment by light microscopyOrdered By: Dr. Rubi on 12-30-2022 Epithelial cells.squamous LM Ql (Urine sed) 0 SEEN /hpf 5-10 [facility] Thin prep Papanicolaou smear with manual screeningOrdered By: Dr. Rubi on 12-30-2022 Thin prep Papanicolaou smear with manual screening 15 U/L 15-37 [facility] Thin prep Papanicolaou smear with manual screening 5 5-15 [facility] Urine blood detectionOrdered By: Dr. Rubi on 12-30-2022 RBC Ql (U) 25 /ul Negative [facility] RBC Ql (U) 0 SEEN /hpf 0-5 [facility] Urine clarityOrdered By: Dr. Rubi on 12-30-2022 Clarity (U) Clear Clear [facility] Urine color determinationOrd ered By: Dr. Rubi on 12-30-2022 Color (U) Yellow Yellow [facility] Urine glucose detectionOrder ed By: Dr. Rubi on 12-30-2022 Glucose Ql (U) Normal mg/dl Normal [facility] Urine leukocyte esterase det ection by dipstickOrdered By: Dr. Rubi on 12-30-2022 Leukocyte esterase Test strip Ql (U) Negative Negative [facility] Urine pHOrdered By: Dr. Kate cheung on 12-30-2022 pH (U) 6.5 [pH] 5.0 - 8.0 [facility] Urine sediment bacteria coun t by microscopy (number/high power field)Ordered By: Dr. Rubi on 12-30-2022 Bacteria LM.HPF (Urine sed) [#/Area] 0 /[HPF] None Seen [facility] Urine specific gravity measu rementOrdered By: Dr. Rubi on 12-30-2022 Specific gravity (U) [Rel density] 1.015 1.002-1.030 [facility] Urobilinogen Auto test strip Ql (U)Ordered By: Dr. Rubi on 12-30-2022 Urobilinogen Ql (U) Normal mg/dl Normal [facility] Absolute lymphocyte countOrd ered By: Dr. Duke on 11-16-2022 Lymphocytes Auto (Unsp spec) [#/Vol] 1.90 10*3/uL 0.83-4.51 [facility] Basophil percentageOrdered B y: Dr. Duke on 11-16-2022 Basophils/100 WBC (Bld) 0.3 % 0-[address] [facility] Bilirubin [Mass/Vol] 0.40 mg/dL 0.20-1.00 [facility] Comment on above: For patients on eltr ombopag therapy, use of Dim[facility] TBIL is not recommended. Chloride [Moles/Vol] 104 mmol/L 98-107 [facility] Eosinophils/100 WBC (Bld) 0.9 % 0-5 [facility] Glucose [Mass/Vol] 122 mg/dL 74-106 [facility] Comment on above: Fasting Glucose resu lt from 100 to 125 mg/dL suggests IMPAIRED HOMEOSTASIS per A.D.A. criteria. Neutrophils (Bld) [#/Vol] 24.6 10*3/uL 2.0-7.7 [facility] Neutrophils/100 WBC (Bld) 84.8 % 47-70 [facility] Potassium [Moles/Vol] 3.7 mmol/L 3.5-5.1 [facility] Protein [Mass/Vol] 8.6 g/dL 6.4-8.2 [facility] Sodium [Moles/Vol] 139 mmol/L 136-145 [facility] WBC (Bld) [#/Vol] 29.0 10*3/uL 4.4-11.0 [facility] [place] Blood erythrocytes count (nu mber/volume)Ordered By: Dr. Duke on 11-16-2022 RBC (Bld) [#/Vol] 5.61 10*6/uL 4.2-5.4 [facility] [place] Blood hemoglobin measurement (mass/volume)Ordered By: Dr. Duke on 11-16-2022 Hemoglobin (Bld) [Mass/Vol] 16.0 g/dL 12.0-15.0 [facility] Blood lymphocytes/100 leukoc ytesOrdered By: Dr. Duke on 11-16-2022 Lymphocytes/100 WBC (Bld) 6.6 % 19-41 [facility] Blood monocytes/100 leukocyt esOrdered By: Dr. Duke on 11-16-2022 Monocytes/100 WBC (Bld) 6.8 % 0-[address] [facility] Blood platelet adequacy dete ction by light microscopyOrdered By: Dr. Duke on 11-16-2022 Platelets LM Ql (Bld) MOD INC ADEQ [facility] Blood platelet mean volumeOr dered By: Dr. Duke on 11-16-2022 Platelet mean volume (Bld) [Entitic vol] 8.9 fL 6.2-12.0 [facility] Determination of erythrocyte mean corpuscular volume (MCV)Ordered By: Dr. Duke on 11-16-2022 MCV (RBC) [Entitic vol] 89.5 fL 81-[address] [facility] Hematocrit Auto (Bld) [Volum e fraction]Ordered By: Dr. Duke on 11-16-2022 Hematocrit (Bld) [Volume fraction] 50.2 % 37-47 [facility] Laboratory - Chemistry and C hemistry - challengeOrdered By: Dr. Duke on 11-16-2022 ALP [Catalytic activity/Vol] 131 U/L 45-117 [facility] ALT [Catalytic activity/Vol] 19 U/L 13-56 [facility] CO2 [Moles/Vol] 27.0 mmol/L 21.0-32.0 [facility] Globulin (S) [Mass/Vol] 4.8 g/dL 2.2-4.[address] [facility] Lipase [Catalytic activity/Vol] 29 U/L 13-75 [facility] Comment on above: Please note:LIPASE r evised reference range effective 22. New Lipase methodology. Expected to produce lower values than the previous assay method. NEW Reference Range: 13 - 75 U/L Urea nitrogen/Creatinine [Mass ratio] 15.9 mg/mg 10-20 [facility] Laboratory - Hematology and Cell countsOrdered By: Dr. Duke on 11-16-2022 Erythrocyte distribution width (RBC) [Entitic vol] 46.5 fL 35.1-43.9 [facility] Erythrocyte distribution width (RBC) [Ratio] 14.3 % 11.6-14.6 [facility] Immature granulocytes/100 WBC (Bld) 0.600 % 0.0-0.9 [facility] Comment on above: IG% - Immature Granu locytes (promyelocytes, myelocytes and metamyelocytes) > 1% indicates that a LEFT SHIFT is Present. MCH (RBC) [Entitic mass] 28.5 pg 27.0-32.0 [facility] Nucleated RBC/100 WBC (Bld) [Ratio] 0 % 0-5 [facility] MCHC Auto (RBC) [Mass/Vol]Or dered By: Dr. Duke on 11-16-2022 MCHC (RBC) [Mass/Vol] 31.9 g/dL 32-36 [facility] No Panel InformationOrdered By: Dr. Duke on 11-16-2022 Estimated Creatinine Clearance Calc 50.70 ml/min [facility] Estimated GFR (MDRD) Amer 68 mL/min >60 [facility] Comment on above: GFR Calc Estimated GFR (MDRD) Non-Af Amer 56 mL/min >60 [facility] Comment on above: Non- GFR Calc Troponin I High Sensitivity 7 pg/mL 3.0-54.0 [facility] Comment on above: Please Note: New Stacey t Units and Gender Specific Reference Ranges. For more information see Policy Stat Procedure [facility] High Sensitivity Troponin (TNIH) and attachments. Platelets bldOrdered By: Dr. Duke on 11-16-2022 Platelets (Bld) [#/Vol] 531 10*3/uL 150-450 [facility] Review by pathologistOrdered By: Dr. Duke on 11-16-2022 Pathologist review Song (Unsp spec) [Interp] Vaishali brumfield [facility] Pathologist review Song (Unsp spec) [Interp] Reviewed [facility] Comment on above: Previous reported re sult: Vaishali brumfield Edited by: RGOOD on 11/17/22:0959Neutrophilic leukocytosis.Polycythemia Thrombocytosis.Clinical correlation necessary.Dakota Lyle M.D. 11/17/22 AMENDED REPORT 11/17/22 0959 PATH REV previously reported as: Vaishali brumfield Serum or plasma albumin scarlett urement (mass/volume)Ordered By: Dr. Duke on 11-16-2022 Albumin [Mass/Vol] 3.8 g/dL 3.2-5.0 [facility] Serum or plasma albumin/glob ulin mass ratioOrdered By: Dr. Duke on 11-16-2022 Albumin/Globulin [Mass ratio] 0.8 {ratio} 0.9-2.4 [facility] Serum or plasma calcium scarlett urement (mass/volume)Ordered By: Dr. Duke on 11-16-2022 Calcium [Mass/Vol] 9.9 mg/dL 8.5-10.1 [facility] Serum or plasma creatinine m easurement (mass/volume)Ordered By: Dr. Duke on 11-16-2022 Creatinine [Mass/Vol] 1.07 mg/dL 0.55-1.02 [facility] Comment on above: The validity of the calculated GFR & GFRAA in patients over 70 years has not been determined. Clinical correlation is essential. Serum or plasma urea nitroge n measurement (mass/volume)Ordered By: Dr. Duke on 11-16-2022 Urea nitrogen [Mass/Vol] 17 mg/dL 7-18 [facility] Thin prep Papanicolaou smear with manual screeningOrdered By: Dr. Duke on 11-16-2022 Thin prep Papanicolaou smear with manual screening 22 U/L 15-37 [facility] Thin prep Papanicolaou smear with manual screening 8 5-15 [facility] XR Chest PA and Lateralon IMPRESSION: No acute radiographic abnormality. Paradichlorobenzene Machine Operator: [email or web address] Transcribe Date/Time: Nov 13 2022 4:56P Dictated by : JUANITA SY MD This examination was interpreted and the report reviewed and electronically signed by: JUANITA SY MD on Nov 13 2022 4:57PM [facility] DIVISION OF RADIOLOGY * * *Final Report* * * DATE OF EXAM: Nov 13 2022 4:56PM WOX 5291 - XR CHEST 2V FRONTAL/LAT / PROCEDURE REASON: Acute cough * * * * Physician Interpretation * * * * EXAMINATION: CHEST RADIOGRAPH (2 VIEW FRONTAL & LATERAL) CLINICAL HISTORY: Acute cough MQ: XC2_6 EXAM DATE/TIME: 11/13/2022 4:56 PM COMPARISON: Chest x-ray on 04/26/2021 RESULT: Lines, tubes, and devices: None. Lungs and pleura: No consolidation. No lung mass. No pleural effusion. No pneumothorax. Left-sided large pericardial fat pad is noted. Cardiomediastinal silhouette: Normal cardiomediastinal silhouette. Bones and soft tissues: The spine shows degenerative changes. DIVISION OF RADIOLOGY Provider, Radames Jean - 11/13/2022 * * *Final Report* * * DATE OF EXAM: Nov 13 2022 4:56PM WOX 5291 - XR CHEST 2V FRONTAL/LAT / PROCEDURE REASON: Acute cough * * * * Physician Interpretation * * * * EXAMINATION: CHEST RADIOGRAPH (2 VIEW FRONTAL & LATERAL) CLINICAL HISTORY: Acute cough MQ: XC2_6 EXAM DATE/TIME: 11/13/2022 4:56 PM COMPARISON: Chest x-ray on 04/26/2021 RESULT: Lines, tubes, and devices: None. Lungs and pleura: No consolidation. No lung mass. No pleural effusion. No pneumothorax. Left-sided large pericardial fat pad is noted. Cardiomediastinal silhouette: Normal cardiomediastinal silhouette. Bones and soft tissues: The spine shows degenerative changes. IMPRESSION IMPRESSION: No acute radiographic abnormality. Paradichlorobenzene Machine Operator: PSCB Transcribe Date/Time: Nov 13 2022 4:56P Dictated by : JUANITA SY MD This examination was interpreted and the report reviewed and electronically signed by: JUANITA SY MD on Nov 13 2022 4:57PM EST [facility] Radiology Study observation (narrative) [facility] XR Chest PA and LateralOrder ed By: [facility] Provider on 11-13-2022 [facility] Absolute lymphocyte countOrd ered By: Dr. Leos on 09-09-2022 Lymphocytes Auto (Unsp spec) [#/Vol] 4.21 10*3/uL 0.83-4.51 [facility] Basophil percentageOrdered B y: Dr. Leos on 09-09-2022 Basophil percentage 0 SEEN /hpf 0-5 [facility] Basophils/100 WBC (Bld) 0.5 % 0-1 [facility] Bilirubin [Mass/Vol] 0.40 mg/dL 0.20-1.00 [facility] Comment on above: For patients on eltr ombopag therapy, use of Dimension [facility] TBIL is not recommended. Chloride [Moles/Vol] 101 mmol/L 98-107 [facility] Eosinophils/100 WBC (Bld) 2.0 % 0-5 [facility] Glucose [Mass/Vol] 89 mg/dL 74-106 [facility] Neutrophils (Bld) [#/Vol] 12.6 10*3/uL 2.0-7.7 [facility] Neutrophils/100 WBC (Bld) 67.1 % 47-70 [facility] Potassium [Moles/Vol] 4.5 mmol/L 3.5-5.1 [facility] Comment on above: Moderate Hemolysis, Result may be falsely increased. Protein [Mass/Vol] 8.2 g/dL 6.4-8.2 [facility] Sodium [Moles/Vol] 137 mmol/L 136-145 [facility] WBC (Bld) [#/Vol] 18.7 10*3/uL 4.4-11.0 [facility] Bilirubin Test strip Ql (U)O rdered By: Dr. Leos on 09-09-2022 Bilirubin Ql (U) Negative Negative [facility] Blood erythrocytes count (nu mber/volume)Ordered By: Dr. Leos on 09-09-2022 RBC (Bld) [#/Vol] 5.29 10*6/uL 4.2-5.4 [facility] Blood hemoglobin measurement (mass/volume)Ordered By: Dr. Leos on 09-09-2022 Hemoglobin (Bld) [Mass/Vol] 14.8 g/dL 12.0-15.0 [facility] Blood lymphocytes/100 leukoc ytesOrdered By: Dr. Leos on 09-09-2022 Lymphocytes/100 WBC (Bld) 22.5 % 19-41 [facility] Blood monocytes/100 leukocyt esOrdered By: Dr. Leos on 09-09-2022 Monocytes/100 WBC (Bld) 7.4 % 0-[address] [facility] Blood platelet mean volumeOr dered By: Dr. Leos on 09-09-2022 Platelet mean volume (Bld) [Entitic vol] 9.8 fL 6.2-12.0 [facility] Determination of erythrocyte mean corpuscular volume (MCV)Ordered By: Dr. Leos on 09-09-2022 MCV (RBC) [Entitic vol] 89.2 fL 81-[address] [facility] Hematocrit Auto (Bld) [Volum e fraction]Ordered By: Dr. Leos on 09-09-2022 Hematocrit (Bld) [Volume fraction] 47.2 % 37-47 [facility] Ketones Test strip Ql (U)Ord ered By: Dr. Leos on 09-09-2022 Ketones Ql (U) Negative Negative [facility] Laboratory - Chemistry and C hemistry - challengeOrdered By: Dr. Leos on 09-09-2022 ALP [Catalytic activity/Vol] 128 U/L 45-117 [facility] ALT [Catalytic activity/Vol] 22 U/L 13-56 [facility] CO2 [Moles/Vol] 29.0 mmol/L 21.0-32.0 [facility] Globulin (S) [Mass/Vol] 4.7 g/dL 2.2-4.[address] [facility] Urea nitrogen/Creatinine [Mass ratio] 15.5 mg/mg 10-20 [facility] Laboratory - Hematology and Cell countsOrdered By: Dr. Leos on 09-09-2022 Erythrocyte distribution width (RBC) [Entitic vol] 44.9 fL 35.1-43.9 [facility] Erythrocyte distribution width (RBC) [Ratio] 13.7 % 11.6-14.6 [facility] Immature granulocytes/100 WBC (Bld) 0.500 % 0.0-0.9 [facility] Comment on above: IG% - Immature Granu locytes (promyelocytes, myelocytes and metamyelocytes) > 1% indicates that a LEFT SHIFT is Present. MCH (RBC) [Entitic mass] 28.0 pg 27.0-32.0 [facility] Nucleated RBC/100 WBC (Bld) [Ratio] 0 % 0-5 [facility] MCHC Auto (RBC) [Mass/Vol]Or dered By: Dr. Leos on 09-09-2022 MCHC (RBC) [Mass/Vol] 31.4 g/dL 32-36 [facility] Mucus LM Ql (Urine sed)Order ed By: Dr. Leos on 09-09-2022 Mucus Ql (Urine sed) 0 SEEN /hpf [facility] Nitrite Test strip Ql (U)Ord ered By: Dr. Leos on 09-09-2022 Nitrite Ql (U) Negative Negative [facility] No Panel InformationOrdered By: Dr. Leos on 09-09-2022 Estimated Creatinine Clearance Calc 60.27 ml/min [facility] Estimated GFR (MDRD) Amer 83 mL/min >60 [facility] Comment on above: GFR Calc Estimated GFR (MDRD) Non-Af Amer 69 mL/min >60 [facility] Comment on above: Non- GFR Calc Platelets bldOrdered By: Dr. Leos on 09-09-2022 Platelets (Bld) [#/Vol] 580 10*3/uL 150-450 [facility] Protein Test strip Ql (U)Ord ered By: Dr. Leos on 09-09-2022 Protein Ql (U) Negative Negative [facility] Serum or plasma albumin scarlett urement (mass/volume)Ordered By: Dr. Leos on 09-09-2022 Albumin [Mass/Vol] 3.5 g/dL 3.2-5.0 [facility] Serum or plasma albumin/glob ulin mass ratioOrdered By: Dr. Leos on 09-09-2022 Albumin/Globulin [Mass ratio] 0.7 {ratio} 0.9-2.4 [facility] Serum or plasma calcium scarlett urement (mass/volume)Ordered By: Dr. Leos on 09-09-2022 Calcium [Mass/Vol] 9.6 mg/dL 8.5-10.1 [facility] Serum or plasma creatinine m easurement (mass/volume)Ordered By: Dr. Leos on 09-09-2022 Creatinine [Mass/Vol] 0.90 mg/dL 0.55-1.02 [facility] Comment on above: The validity of the calculated GFR & GFRAA in patients over 70 years has not been determined. Clinical correlation is essential. Serum or plasma urea nitroge n measurement (mass/volume)Ordered By: Dr. Leos on 09-09-2022 Urea nitrogen [Mass/Vol] 14 mg/dL 7-18 [facility] Squamous epithelial cells de tection in urine sediment by light microscopyOrdered By: Dr. Leos on 09-09-2022 Epithelial cells.squamous LM Ql (Urine sed) 0 SEEN /hpf 5-10 [facility] Thin prep Papanicolaou smear with manual screeningOrdered By: Dr. Leos on 09-09-2022 Thin prep Papanicolaou smear with manual screening 30 U/L 15-37 [facility] Comment on above: Moderate Hemolysis, Result may be falsely increased. Thin prep Papanicolaou smear with manual screening 7 5-15 [facility] Urine blood detectionOrdered By: Dr. Leos on 09-09-2022 RBC Ql (U) 10 /ul Negative [facility] RBC Ql (U) 0 SEEN /hpf 0-5 [facility] Urine clarityOrdered By: Dr. Leos on 09-09-2022 Clarity (U) Clear Clear [facility] Urine color determinationOrd ered By: Dr. Leos on 09-09-2022 Color (U) Yellow Yellow [facility] Urine glucose detectionOrder ed By: Dr. Leos on 09-09-2022 Glucose Ql (U) Normal mg/dl Normal [facility] Urine leukocyte esterase det ection by dipstickOrdered By: Dr. Leos on 09-09-2022 Leukocyte esterase Test strip Ql (U) Negative Negative [facility] Urine pHOrdered By: Dr. Jada medina on 09-09-2022 pH (U) 7.0 [pH] 5.0 - 8.0 [facility] Urine sediment bacteria coun t by microscopy (number/high power field)Ordered By: Dr. Leos on 09-09-2022 Bacteria LM.HPF (Urine sed) [#/Area] 0 /[HPF] None Seen [facility] Urine specific gravity measu rementOrdered By: Dr. Leos on 09-09-2022 Specific gravity (U) [Rel density] 1.010 1.002-1.030 [facility] Urobilinogen Auto test strip Ql (U)Ordered By: Dr. Leos on 09-09-2022 Urobilinogen Ql (U) Normal mg/dl Normal [facility] EKGon 04-26-2021 Electrocardiogram Procedure Date and Time: 04/26/21 1556 Test Reason : ORDER Blood Pressure : / mmHG Vent. Rate : 116 BPM Atrial Rate : 116 BPM P-R Int : 146 ms QRS Dur : 090 ms QT Int : 340 ms P-R-T Axes : 072 074 049 degrees QTc Int : 473 ms Sinus tachycardia Right atrial enlargement Prolonged QT Abnormal ECG No previous ECGs available Confirmed by PRAKASH GOMEZ A. ([id number]) on 04/27/2021 4:40:31 AM Referred By: Vincenzo aGllardo Confirmed By:Hilario GOMEZ M.D.FACC Blayne DDandT: 04/26/21 1556 TDandT: [facility] MEDICAL REC #: [id number] [place] [address] ADMIT DATE: DISCHARGE DATE: 04/26/21 ATTENDING PHY: Vincenzo Gallardo MD ELECTROCARDIOGRAM REPORT CLB cc: [facility] PATIENT NAME: [facility] MEDICAL REC #: [id number] [place] [address] ADMIT DATE: DISCHARGE DATE: 04/26/21 ATTENDING PHY: Vincenzo Gallardo MD ELECTROCARDIOGRAM REPORT Normal [facility] Rashid 04-26-2021 EMERGENCY PHYSICIAN REPORT This is a preliminary report only, as the practitioner review and authentication has not occurred. Normal [facility] ER PHYSICIAN ASSESSMENT RECORDS : Discharge Report Event Time: 04/26/2021 19:28 : FlexChartData Event Time: 04/26/2021 20:00 Status: Signed [facility] Savannah Irvin [[id number]] Attending Physician 55 / F / 1965 Chart (V2b) Chart created at 04/26/2021 19:22 by Vincenzo Gallardo Chart closed at 04/26/2021 19:27 Entry in Emergency Department at 04/26/2021 15:21 Patient Name: Savannah Irvin Record Number: [id number] Date: 04/26/2021 19:22 Entered Department at: 04/26/2021 15:21 Patient Seen at: 04/26/2021 15:36 Historian: Patient Chief Complaint:Allergic Reaction Pulse: 123. Respiratory Rate: 20. Blood-pressure: 139/105. Oxygen Saturation: 86%. History of Present Illness: 55-Year-old female comes in for evaluation of shortness of breath that occurred fairly suddenly. She is allergic to peanuts apparently, and ate some peanut butter inadvertently. She started to feel short of breath. She also was getting very anxious. She felt like her hands were getting swollen. She did not however feel like her tongue was swollen. She felt itchy but did not develop any rash. It happened just prior to arrival to the emergency room. She does not wear oxygen at home, but does have a history of COPD. She denies chest pain, just shortness of breath and [facility] PATIENT NAME: SAVANNAH IRVIN [address] [facility] [address] MEDICAL REC #: [id number] [place] [address] EMERGENCY DEPARTMENT REPORT EMERGENCY DEPARTMENT PHYSICIAN wheezing. Review of Systems. All other systems reviewed and negative.. Past History, Medications, Allergies, Social History and Family History reviewed in nurses note. Medications: Reviewed RN Note. Allergies: Reviewed RN Note No Known Allergies Social History: Reviewed RN Note. Family History: Reviewed RN Note Physical Examination: General: Alert, anxious, tachypneic almost to the point of hyperventilating. Shaky and tremulous. Tachycardic and hypoxic. HEENT: Normal ENT inspection.No tongue or throat swelling no drooling or stridor . Neck: Supple Respiratory: Tachypnea with diminished breath sounds and scattered wheezing Cardio-Vascular: RRR Abdomen: Non-tender and Soft Back: Non-tender Extremity: No Calf Tenderness and No edema Neurological: Alert, Oriented X3 and No Gross Weakness Skin: Warm and Dry Psychological: Normal Memory/Judgment; Anxious Cardiogram: Interpreted by me. Interpretation: Sinus rhythm, rate 116, tachycardic but no ST elevation or infarct pattern. There is biatrial enlargement. There is no old study for comparison. Imaging Study Obtained: CHEST (PORTABLE) Imaging Study Obtained: PORTABLE CHEST, Status:Signed Report Available PORTABLE CHEST CLINICAL HISTORY: Dyspnea COMPARISON: None. [facility] PATIENT NAME: [facility] MEDICAL REC #: [id number] [place] [address] EMERGENCY DEPARTMENT REPORT EMERGENCY DEPARTMENT PHYSICIAN RESULT: Lungs are clear. No cardiomegaly. No pulmonary edema. IMPRESSION: No acute pulmonary process. This report was electronically signed by Michelle Galeana MD 04/26/2021 4:21 PM Reported By: MICHELLE GALEANA MD Radiology: Interpreted by Radiologist. Medical Decision Making The initial concern was that this is an acute allergic reaction. the patient appears to be having some component of a COPD exacerbation. There also appears to be a component of anxiety. I do not see skin rash or tongue or throat swelling, although the patient does feel as though she is having no reaction to the peanuts. We did have subcu epi at the bedside just in case we needed it, but in the interim we treated the patient with steroids, Benadryl, and albuterol treatments. She did however require close and frequent monitoring initially to ensure that she was not progressing to an anaphylactic type reaction. She did have improvement with treatment. She was monitored for a number of hours, and had gradual steady improvement. Currently she states that she feels much better and feels as though she is stable to be discharged home. Her , at the bedside, feels comfortable with her going home as well. The patient is a little bit shaky and tremulous still, but the states that this is typical for her after reaction. So they feel as though she has truly improved at this point and feel comfortable going home. We will have her continue Benadryl at home, continue steroids at home as well. Return to the ER if she is getting worse or otherwise follow-up with the family doctor. Additional Information: Discussed Results, Diagnosis and (more content not included)... [facility] PORTABLE CHESTon 04-26-2021 PORTABLE CHEST PORTABLE CHEST CLINICAL HISTORY: Dyspnea COMPARISON: None. RESULT: Lungs are clear. No cardiomegaly. No pulmonary edema. IMPRESSION: No acute pulmonary process. This report was electronically signed by Michelle Galeana MD 04/26/2021 4:21 PM Reported By: MICHELLE GALEANA MD Signed By: MICHELLE GALEANA MD [facility] PROGRESSon 04-02-2017 PROGRESS HNO ID: [id number]: Kellee (Ct) Td CTService: (none)Author Type: Clinical TechnicianType: Progress NotesFiled: 04/02/2017 10:10 AMNote Text:NAME:Savannah IrvinDATE: April 02, 2017F#: [id number] Extremity X-Ray(s): Shoulder, AP / TRUE AP / AXILLARY / SUPRA OUTLET Bilateral COMPLETEDTECH ID SIGN: KELLEE ROD [facility] XR SHLDR >/=3V AP/DORIS AP/OTH R LTon 04-02-2017 XR SHLDR >/=3V AP/DORIS AP/OTHR LT * * *Final Report* * *DATE OF EXAM: Apr 02 2017 9:14AM ANNA 5252 - XR SHLDR >/=3V AP/DORIS AP/OTHR LT / REASON: multiple diagnoses * * * * Physician Interpretation * * * * PROCEDURE: Bilateral shouldersINDICATION: Pain in right shoulder Pain in left shoulder .TECHNIQUE: XR SHLDR >/=3V AP/DORIS AP/OTHR RT, XR SHLDR >/=3V AP/DORIS AP/OTHR LTCOMPARISON: NoneFINDINGS:Right shoulder: There is mild elevation of the distal clavicle in relation to the acromion consistent with AC joint separation, age uncertain. No fracture is seen. There is minimal spurring at the AC joint. Glenohumeral joint is unremarkable. No soft tissue calcifications. Subacromial space is maintained. Upper ribs are intact.Left shoulder: Suspected remote, healed humeral neck fracture. No acute fracture. Mild spurring at the AC joint. Glenohumeral joint is within normal limits. Subacromial space is maintained. Upper ribs are intact.IMPRESSION:1. Mild right AC joint separation, age uncertain2. Suspected remote, healed proximal left humeral fracture.Sustainability Project Manager ist: [facility] Transcribe Date/Time: Apr 02 2017 3:53PDictated by : Shagufta HERR examination was interpreted and the report reviewed and electronically signed by: ANDRE BISHOP MD on Apr 02 2017 3:55PM [id number] [facility] XR SHLDR >/=3V AP/DORIS AP/OTH R RTon 04-02-2017 XR SHLDR >/=3V AP/DORIS AP/OTHR RT * * *Final Report* * *DATE OF EXAM: Apr 02 2017 9:12AM ANNA 5253 - XR SHLDR >/=3V AP/DORIS AP/OTHR RT / REASON: multiple diagnoses * * * * Physician Interpretation * * * * PROCEDURE: Bilateral shouldersINDICATION: Pain in right shoulder Pain in left shoulder .TECHNIQUE: XR SHLDR >/=3V AP/DORIS AP/OTHR RT, XR SHLDR >/=3V AP/DORIS AP/OTHR LTCOMPARISON: NoneFINDINGS:Right shoulder: There is mild elevation of the distal clavicle in relation to the acromion consistent with AC joint separation, age uncertain. No fracture is seen. There is minimal spurring at the AC joint. Glenohumeral joint is unremarkable. No soft tissue calcifications. Subacromial space is maintained. Upper ribs are intact.Left shoulder: Suspected remote, healed humeral neck fracture. No acute fracture. Mild spurring at the AC joint. Glenohumeral joint is within normal limits. Subacromial space is maintained. Upper ribs are intact.IMPRESSION:1. Mild right AC joint separation, age uncertain2. Suspected remote, healed proximal left humeral fracture.Sustainability Project Manager ist: [facility] Transcribe Date/Time: Apr 02 2017 3:53PDictated by : Shagufta HERR examination was interpreted and the report reviewed and electronically signed by: ANDRE BISHOP MD on Apr 02 2017 3:55PM [id number] ACN [facility] Office Visit: Hospital F/Uon 01-13-2017 Documentation of current medications (procedure) Done Invalid Interpretation Code [facility] Work Phone: Smoking cessation education (procedure) yes Invalid Interpretation Code [facility] Work Phone: Tobacco smoking status NHIS Never Invalid Interpretation Code [facility] Work Phone: Tobacco use [facility] Current every day smoker Invalid Interpretation Code [facility] Work Phone: Clinical Lists Update: Prelo wood sash and frame carpenter 08-22-2016 BUN/Creatinine Ratio 20.0 mg/mg Invalid Interpretation Code [facility] Work Phone: Calcium 9.3 mg/dL Invalid Interpretation Code [facility] Work Phone: Chloride 103 mmol/L Invalid Interpretation Code [facility] Work Phone: [phone] CO2 24.0 mmol/L Invalid Interpretation Code [facility] Work Phone: Creatinine 0.80 mg/dL Invalid Interpretation Code [facility] Work Phone: Glucose 168 mg/dL Invalid Interpretation Code [facility] Work Phone: Hematocrit (HCT) 29.9 % Invalid Interpretation Code [facility] Work Phone: Hemoglobin (HGB) 9.0 g/dL Invalid Interpretation Code [facility] Work Phone: [phone] Platelets 635 10*3/mm3 Invalid Interpretation Code [facility] Work Phone: [phone] Potassium 3.8 mmol/L Invalid Interpretation Code [facility] Work Phone: [phone] Sodium 138 mmol/L Invalid Interpretation Code [facility] Work Phone: [phone] Urea nitrogen 16 mg/dL Invalid Interpretation Code [facility] Work Phone: [phone] WBC (Leukocytes) 15.5 10*3/uL Invalid Interpretation Code [facility] Work Phone: [phone] Clinical Lists Update: Prelo wood sash and frame carpenter 06-29-2016 Cholesterol 217 mg/dL Invalid Interpretation Code [facility] Work Phone: HDL Cholesterol 33 mg/dL Invalid Interpretation Code [facility] Work Phone: LDL Cholesterol 114 mg/dL Invalid Interpretation Code [facility] Work Phone: Triglyceride 348 mg/dL Invalid Interpretation Code [facility] Work Phone: Lab Report: Miscellaneous La b Procedureon 12-13-2015 GE use only - for [employer] import when terms are not otherwise specified . Invalid Interpretation Code [facility] Work Phone: Lab Report: LDHon 12-06-2015 lactate dehydrogenase - serum 243 U/L Invalid Interpretation Code [id number] [facility] Work Phone: Lab Report: Uric Acidon 11-17 Urate 3.4 mg/dL Invalid Interpretation Code 2.6-6.0 [facility] Work Phone: Vital Signs Date Time Vital Sign Value Performing Clinician Facility 08-23-2024 16:25-0500 Body mass index (BMI) [Ratio] 28.18 kg/m2 Marcy Anthony APRN.CLUTCH SPECIALIST Work Phone: [facility] 08-23-2024 16:25-0500 Body temperature 98.6 [degF] Marcy Anthony APRN.CLUTCH SPECIALIST Work Phone: [facility] 08-23-2024 16:25-0500 Body weight 76.8 kg Marcy Anthony APRN.CLUTCH SPECIALIST Work Phone: [facility] 08-23-2024 16:25-0500 Diastolic blood pressure 102 mm[Hg] Marcy Anthony APRN.CLUTCH SPECIALIST Work Phone: [facility] 08-23-2024 16:25-0500 Heart rate 95 /min Marcy Anthony APRN.CLUTCH SPECIALIST Work Phone: [facility] 08-23-2024 16:25-0500 Respiratory rate 20 /min Marcy Raj OUTDOOR STUDIES PROFESSOR.CLUTCH SPECIALIST Work Phone: [facility] 08-23-2024 16:25-0500 SaO2% (BldA) [Mass fraction] 96 % Marcy Yook OUTDOOR STUDIES PROFESSOR.CLUTCH SPECIALIST Work Phone: [facility] 08-23-2024 16:25-0500 Systolic blood pressure 182 mm[Hg] Marcy Anthony OUTDOOR STUDIES PROFESSOR.CLUTCH SPECIALIST Work Phone: [facility] 07-24-2024 14:12-0500 Body mass index (BMI) [Ratio] 26.52 kg/m2 Ivette Welsh MD Work Phone: [facility] 07-24-2024 14:12-0500 Body weight 72.3 kg Ivette Welsh MD Work Phone: [facility] 07-24-2024 14:12-0500 Diastolic blood pressure 88 mm[Hg] Ivette Welsh MD Work Phone: [facility] 07-24-2024 14:12-0500 Heart rate 110 /min Ivette Welsh MD Work Phone: [facility] 07-24-2024 14:12-0500 Respiratory rate 20 /min Ivette Welsh MD Work Phone: [facility] 07-24-2024 14:12-0500 SaO2% (BldA) [Mass fraction] 92 % Ivette Welsh MD Work Phone: [facility] 07-24-2024 14:12-0500 Systolic blood pressure 138 mm[Hg] Ivette Welsh MD Work Phone: [facility] 07-12-2024 20:06-0500 Diastolic Blood Pressure Non-Invasive 85 mm[Hg] KELLIE MARTINEZ MD [facility] 07-12-2024 20:06-0500 Heart rate 88 /min KELLIE MARTINEZ MD [facility] 07-12-2024 20:06-0500 Respiratory rate 18 /min KELLIE MARTINEZ MD [facility] 07-12-2024 20:06-0500 Systolic Blood Pressure Non-Invasive 157 mm[Hg] KELLIE MARTINEZ MD [facility] 07-12-2024 19:28-0500 Heart rate 91 /min KELLIE MARTINEZ MD [facility] 07-12-2024 19:28-0500 Respiratory rate 20 /min KELLIE MARTINEZ MD [facility] 07-12-2024 19:17-0500 Body temperature 98.06 [degF] KELLIE MARTINEZ MD [facility] 07-12-2024 19:17-0500 Diastolic Blood Pressure Non-Invasive 97 mm[Hg] KELLIE MARTINEZ MD [facility] 07-12-2024 19:17-0500 Heart rate 97 /min KELLIE MARTINEZ MD [facility] 07-12-2024 19:17-0500 Respiratory rate 20 /min KELLIE MARTINEZ MD [facility] 07-12-2024 19:17-0500 Systolic Blood Pressure Non-Invasive 167 mm[Hg] KELLIE MARTINEZ MD [facility] 07-01-2023 22:15-0500 Blood Pressure Location JOSHUA FERNANDEZ DO [facility] 07-01-2023 22:15-0500 Blood Pressure Method JOSHUA Waller [facility] 07-01-2023 22:15-0500 Diastolic Blood Pressure Non-Invasive 89 mm[Hg] JOSHUA FROMMELT DO [facility] 07-01-2023 22:15-0500 Reason For Taking VItal Signs JOSHUA FROMMELT DO [facility] 07-01-2023 22:15-0500 Respiratory rate 20 /min JOSHUA GILLMELT DO [facility] 07-01-2023 22:15-0500 Systolic Blood Pressure Non-Invasive 153 mm[Hg] JOSHUA GILLMELT DO [facility] 07-01-2023 21:03-0500 Blood Pressure Location JOSHUA GILLMELT DO [facility] 07-01-2023 21:03-0500 Blood Pressure Method JOSHUA HAMILTONT D O [facility] 07-01-2023 21:03-0500 Diastolic Blood Pressure Non-Invasive 89 mm[Hg] JOSHUA HAMILTONT DO [facility] 07-01-2023 21:03-0500 Reason For Taking VItal Signs JOSHUA FROMMELT DO [facility] 07-01-2023 21:03-0500 Respiratory rate 19 /min JOSHUA HAMILTONT DO [facility] 07-01-2023 21:03-0500 Systolic Blood Pressure Non-Invasive 147 mm[Hg] JOSHUA GILLMELT DO [facility] 07-01-2023 20:08-0500 Blood Pressure Location JOSHUA FROMMELT DO [facility] 07-01-2023 20:08-0500 Blood Pressure Method JOSHUA GILLAFreezeT D O [facility] 07-01-2023 20:08-0500 Diastolic Blood Pressure Non-Invasive 103 mm[Hg] JOSHUA HAMILTONT DO [facility] 07-01-2023 20:08-0500 Heart rate 98 /min JOSHUA HAMILTONT DO [facility] 07-01-2023 20:08-0500 Reason For Taking VItal Signs JOSHUA HAMILTONT DO [facility] 07-01-2023 20:08-0500 Respiratory rate 22 /min JOSHUA FERNANDEZ DO [facility] 07-01-2023 20:08-0500 Systolic Blood Pressure Non-Invasive 199 mm[Hg] JOSHUA HAMILTONT DO [facility] 07-01-2023 19:38-0500 Body height 165.1 cm JOSHUA HAMILTONT DO [facility] 07-01-2023 19:38-0500 Body temperature 98.42 [degF] JOSHUA FERNANDEZ DO [facility] 07-01-2023 19:38-0500 Body weight 75 kg JOSHUA HAMILTONQuisk DO [facility] 07-01-2023 19:38-0500 Heart rate 111 /min JOSHUA FERNANDEZ [employer] [facility] 06-05-2023 13:53-0500 Body temperature 98 [degF] Dr. Ivette Welsh Work Phone: [facility] 06-05-2023 13:53-0500 Diastolic blood pressure 86 mm[Hg] Dr. Ivette Welsh Work Phone: [facility] 06-05-2023 13:53-0500 Heart rate 102 /min Dr. Ivette Welsh Work Phone: 1(024)511-829801 [place] [address] 06-05-2023 13:53-0500 Respiratory rate 18 /min Dr. Ivette Welsh Work Phone: 1(563)016-901901 [place] [address] 06-05-2023 13:53-0500 SaO2% (BldA) [Mass fraction] 95 % Dr. Ivette Welsh Work Phone: 2(258)237-228401 [place] [address] 06-05-2023 13:53-0500 Systolic blood pressure 150 mm[Hg] Dr. Ivette Welsh Work Phone: 2(756)066-935501 [place] [address] 06-05-2023 12:10-0500 Inhaled oxygen flow rate 0 L/min Dr. Ivette Welsh Work Phone: 3(092)618-379001 [place] [address] 06-05-2023 00:39-0500 Body height 162.[address] Ivette Welsh Work Phone: 1(276)232-460201 [place] [address] 06-05-2023 00:39-0500 Body mass index (BMI) [Ratio] 28.9 kg/m2 Dr. Ivette Welsh Work Phone: 9(971)548-666501 [place] [address] 06-05-2023 00:39-0500 Body weight 76.[address] Ivette Welsh Work Phone: 6(295)334-040901 [place] [address] 06-05-2023 00:18-0500 Diastolic blood pressure 103 mm[Hg] Dr. Ivette Welsh Work Phone: 5(177)644-524801 [place] [address] 06-05-2023 00:18-0500 Heart rate 92 /min Dr. Ivette Welsh Work Phone: 1(390)962-508801 [place] [address] 06-05-2023 00:18-0500 Respiratory rate 25 /min Dr. Ivette Welsh Work Phone: 5(893)211-955401 [place] [address] 06-05-2023 00:18-0500 SaO2% (BldA) [Mass fraction] 97 % Dr. Ivette Welsh Work Phone: 6(478)387-466801 [place] [address] 06-05-2023 00:18-0500 Systolic blood pressure 185 mm[Hg] Dr. Ivette Welsh Work Phone: 9(166)365-889201 [place] [address] 06-04-2023 20:23-0500 Body height 162.[address] Ivette Welsh Work Phone: [facility] 06-04-2023 20:23-0500 Body mass index (BMI) [Ratio] 28.8 kg/m2 Dr. Ivette Welsh Work Phone: [facility] 06-04-2023 20:23-0500 Body temperature 98 [degF] Dr. Ivette Welsh Work Phone: [facility] 06-04-2023 20:23-0500 Body weight 76.[address] Ivette Welsh Work Phone: [facility] 02-22-2023 14:24-0400 Diastolic Blood Pressure Non-Invasive 89 1 ELKE GARCIA MD [facility] 02-22-2023 14:24-0400 Heart rate 83 /min ELKE GARCIA MD [facility] 02-22-2023 14:24-0400 Respiratory rate 18 /min ELKE GARCIA MD [facility] 02-22-2023 14:24-0400 Systolic Blood Pressure Non-Invasive 184 1 ELKE GARCIA MD [facility] 02-22-2023 13:57-0400 Diastolic Blood Pressure Non-Invasive 91 1 ELKE GARCIA MD [facility] 02-22-2023 13:57-0400 Heart rate 73 /min ELKE GARCIA MD [facility] 02-22-2023 13:57-0400 Respiratory rate 18 /min ELKE GARCIA MD [facility] 02-22-2023 13:57-0400 Systolic Blood Pressure Non-Invasive 179 1 ELKE GARCIA MD [facility] 02-22-2023 13:09-0400 Diastolic Blood Pressure Non-Invasive 106 1 ELKE GARCIA MD [facility] 02-22-2023 13:09-0400 Heart rate 87 /min ELKE GARCIA MD [facility] 02-22-2023 13:09-0400 Respiratory rate 20 /min ELKE GARCIA MD [facility] 02-22-2023 13:09-0400 Systolic Blood Pressure Non-Invasive 220 1 ELKE GARCIA MD [facility] 02-22-2023 12:19-0400 Reason For Taking VItal Signs ELKE GARCIA MD [facility] 02-22-2023 11:49-0400 Body height 165.1 cm ELKE GARCIA MD [facility] 02-22-2023 11:49-0400 Body temperature 98.24 [degF] ELKE GARCIA MD [facility] 02-22-2023 11:49-0400 Body weight 75.6 kg ELKE GARCIA MD [facility] 02-22-2023 11:49-0400 Heart rate 92 /min ELKE GARCIA MD [facility] 02-18-2023 10:20-0400 Diastolic blood pressure 98 mm[Hg] Ivette Welsh MD Work Phone: [facility] 02-18-2023 10:20-0400 Systolic blood pressure 154 mm[Hg] Ivette Welsh MD Work Phone: [facility] 02-18-2023 10:18-0400 Body weight 76.75 kg Ivette Welsh MD Work Phone: [facility] 02-18-2023 10:18-0400 Heart rate 98 /min Ivette Welsh MD Work Phone: [facility] 02-18-2023 10:18-0400 Respiratory rate 20 /min Ivette Welsh MD Work Phone: [facility] 02-11-2023 09:00-0400 Body temperature 97.8 [degF] Dr. Ivette Welsh Work Phone: [facility] 02-11-2023 09:00-0400 Diastolic blood pressure 89 mm[Hg] Dr. Ivette Welsh Work Phone: 6(800)254-758801 [place] [address] 02-11-2023 09:00-0400 Heart rate 89 /min Dr. Ivette Welsh Work Phone: 4(913)692-801501 [place] [address] 02-11-2023 09:00-0400 Respiratory rate 16 /min Dr. Ivette Welsh Work Phone: 2(690)229-971701 [place] [address] 02-11-2023 09:00-0400 SaO2% (BldA) [Mass fraction] 96 % Dr. Ivette Welsh Work Phone: 7(641)975-909301 [place] [address] 02-11-2023 09:00-0400 Systolic blood pressure 132 mm[Hg] Dr. Ivette Welsh Work Phone: 6(616)861-586801 [place] [address] 02-11-2023 06:37-0400 Heart rate 82 /min Dr. Ivette Welsh Work Phone: [facility] 02-11-2023 06:37-0400 Respiratory rate 20 /min Dr. Ivette Welsh Work Phone: 2(370)884-472101 [place] [address] 02-11-2023 06:37-0400 SaO2% (BldA) [Mass fraction] 91 % Dr. Ivette Welsh Work Phone: 2(537)902-201901 [place] [address] 02-11-2023 05:45-0400 Body mass index (BMI) [Ratio] 28.3 kg/m2 Dr. Ivette Welsh Work Phone: [facility] 02-11-2023 05:45-0400 Body weight 75.[address] Ivette Welsh Work Phone: [facility] 02-11-2023 04:10-0400 Body temperature 97.5 [degF] Dr. Ivette Welsh Work Phone: [facility] 02-11-2023 04:10-0400 Diastolic blood pressure 82 mm[Hg] Dr. Ivette Welsh Work Phone: [facility] 02-11-2023 04:10-0400 Systolic blood pressure 130 mm[Hg] Dr. Ivette Welsh Work Phone: [facility] 02-10-2023 08:24-0400 Inhaled oxygen flow rate 1 L/min Dr. Ivette Welsh Work Phone: [facility] 02-08-2023 16:09-0400 Body height 162.[address] Ivette Welsh Work Phone: [facility] 12-30-2022 20:33-0400 Body height 162.56 cm [facility] 12-30-2022 20:33-0400 Body mass index (BMI) [Ratio] 30.4 kg/m2 [facility] 12-30-2022 20:33-0400 Body temperature 98 [degF] [facility] 12-30-2022 20:33-0400 Body weight 80.3 kg [facility] 12-30-2022 20:33-0400 Diastolic blood pressure 100 mm[Hg] [facility] 12-30-2022 20:33-0400 Heart rate 102 /min [facility] 12-30-2022 20:33-0400 Respiratory rate 18 /min [facility] 12-30-2022 20:33-0400 SaO2% (BldA) [Mass fraction] 100 % [facility] 12-30-2022 20:33-0400 Systolic blood pressure 164 mm[Hg] [facility] 11-16-2022 08:16-0400 Body temperature 98.1 [degF] [facility] 11-16-2022 08:16-0400 Diastolic blood pressure 81 mm[Hg] [facility] 11-16-2022 08:16-0400 Heart rate 88 /min [facility] 11-16-2022 08:16-0400 Respiratory rate 16 /min [facility] 11-16-2022 08:16-0400 SaO2% (BldA) [Mass fraction] 98 % [facility] 11-16-2022 08:16-0400 Systolic blood pressure 143 mm[Hg] [facility] 11-16-2022 02:22-0400 Body height 162.56 cm [facility] 11-16-2022 02:22-0400 Body mass index (BMI) [Ratio] 31.3 kg/m2 [facility] 11-16-2022 02:22-0400 Body weight 82.8 kg [facility] 10-12-2022 00:15-0400 Diastolic blood pressure 84 mm[Hg] [facility] 10-12-2022 00:15-0400 Heart rate 85 /min [facility] 10-12-2022 00:15-0400 Respiratory rate 15 /min [facility] 10-12-2022 00:15-0400 SaO2% (BldA) [Mass fraction] 98 % [facility] 10-12-2022 00:15-0400 Systolic blood pressure 143 mm[Hg] [facility] 10-11-2022 22:03-0400 Body mass index (BMI) [Ratio] 30.5 kg/m2 [facility] 10-11-2022 22:03-0400 Body weight 80.8 kg [facility] 10-11-2022 20:41-0400 Body height 162.56 cm [facility] 10-11-2022 20:41-0400 Body temperature 97.7 [degF] [facility] 09-09-2022 05:58-0500 Diastolic blood pressure 87 mm[Hg] [facility] 09-09-2022 05:58-0500 Heart rate 75 /min [facility] 09-09-2022 05:58-0500 Respiratory rate 20 /min [facility] 09-09-2022 05:58-0500 SaO2% (BldA) [Mass fraction] 96 % [facility] 09-09-2022 05:58-0500 Systolic blood pressure 156 mm[Hg] [facility] 09-09-2022 02:50-0500 Body height 162.56 cm [facility] 09-09-2022 02:50-0500 Body mass index (BMI) [Ratio] 30.9 kg/m2 [facility] 09-09-2022 02:50-0500 Body temperature 96.9 [degF] [facility] 09-09-2022 02:50-0500 Body weight 81.6 kg [facility] 01-13-2017 14:13-0400 BMI (Body Mass Index) 35.27 kg/m2 Caren Ernstho MANAGER WELDING [facility] Work Phone: 01-13-2017 14:13-0400 Body Temperature 98.8 [degF] Caren Sujataho MANAGER WELDING [facility] Work Phone: 01-13-2017 14:13-0400 BP Diastolic 102 mm[Hg] Caren Hilarionsho MANAGER WELDING [facility] Work Phone: 01-13-2017 14:13-0400 BP Systolic 140 mm[Hg] Caren Hilarionsho MANAGER WELDING [facility] Work Phone: 01-13-2017 14:13-0400 Height 165.1 cm Caren Hilarionsho MANAGER WELDING [facility] Work Phone: 01-13-2017 14:13-0400 Pulse (Heart Rate) 90 /min Caren Hilarionsho MANAGER WELDING [facility] Work Phone: 01-13-2017 14:13-0400 Pulse Oximetry 98 % Caren Sujataho MANAGER WELDING [facility] Work Phone: 01-13-2017 14:13-0400 Respiratory Rate 18 /min Caren Tobin LPN [facility] Work Phone: 01-13-2017 14:13-0400 Weight 96.16 kg Caren Tobin LPN [facility] Work Phone: Encounters Encounter Date Encounter Type Care Provider Facility Start: 11-02-2024 End: 11-02-2024 Refill Ivette Welsh MD Work Phone: [facility] Comment on above: Refill Request Start: 09-26-2024 End: 10-27-2024 ambulatory Ivette Welsh MD Work Phone: [facility] Start: 08-28-2024 ambulatory Ivette Welsh Facilit y:[facility] Start: 08-24-2024 End: 08-24-2024 Telephone encounter Damon TORRES Work Phone: [facility] Comment on above: Results Start: 08-23-2024 End: 08-23-2024 [facility] Start: 08-23-2024 End: 08-23-2024 Patient encounter procedure Macry Anthony APRN.CLUTCH SPECIALIST Work Phone: [facility] Comment on above: Sore throat (Primary Dx); URI, acute Start: 07-24-2024 End: 07-24-2024 ambulatory IVETTE [place] [facility] Facility:[facility] Start: 07-24-2024 End: 07-24-2024 Patient encounter procedure Ivette Welsh MD Work Phone: [facility] Comment on above: Hospital discharge f ollow-up (Primary Dx); Dysphagia, unspecified type; Chronic obstructive pulmonary disease, unspecified COPD type (HCC); Bacterial pneumonia; Sore throat Start: 07-21-2024 End: 07-21-2024 Telephone encounter Ivette Welsh MD Work Phone: [facility] Start: 07-18-2024 End: 07-18-2024 Patient Outreach Elena Lopez MA [facility] Comment on above: Transition Of Care Start: 07-17-2024 ambulatory [place] Basilio Facility:[facility] Start: 07-15-2024 ambulatory Ivette Welsh Facilit y:[facility] Start: 07-15-2024 End: 07-17-2024 Evaluation and management of inpatient Jama Bustamante Facility:[facility] Start: 07-12-2024 End: 07-12-2024 Emergency department patient visit KELLIE MARTINEZ MD [facility] Start: 07-05-2024 End: 07-05-2024 ambulatory Idalia Caty Janki [facility]ESS[facility] Start: 07-05-2024 End: 07-05-2024 Patient encounter procedure Idalia Shermanes J[facility] Comment on above: Population Health Na vigation Outreach ([facility] [place] ) Start: 05-15-2024 End: 05-15-2024 ambulatory Idalia Beckford Janki [facility] Start: 05-15-2024 End: 05-15-2024 Patient encounter procedure Idalia Shermanes JESS[facility] Comment on above: Population Health Na vigation Outreach ([facility]ial[facility] [place] / /) Start: 04-28-2024 End: 04-28-2024 Emergency department patient visit Tereso Bajwa Facility:[facility] Start: 02-25-2024 ambulatory Idalia Caty Janki JESSIE [facility] Start: 02-25-2024 Patient encounter procedure Idalia Shermanes JESSIE [facility] Comment on above: Population Health Na vigation Outreach ([facility] [place] ) Start: 01-04-2024 ambulatory Idalia Caty Janki ROMAN [facility] Start: 01-04-2024 Patient encounter procedure Idalia Shermanes JESSIE [facility] Comment on above: Population Health Na vigation Outreach ([facility] [place]) Start: 12-30-2023 End: 12-30-2023 Emergency department patient visit Idalia Sanchez Facility:[facility] Start: 12-07-2023 ambulatory Idalia Beckford Janki JESSIE [facility] Start: 12-07-2023 Patient encounter procedure Idalia Murrieta MA [facility] Comment on above: Population Health Na vigation Outreach ([employer]/ //) Start: 10-29-2023 ambulatory Idalia Murrieta MA [facility] Comment on above: Population Health Na vigation Outreach ([employer]) Start: 10-27-2023 ambulatory Ivette noe MD Work Phone: [facility] Start: 07-01-2023 End: 07-02-2023 Emergency department patient visit KENISHA ABBASI MD Facility:[facility] Start: 07-01-2023 End: 07-01-2023 Emergency department patient visit JOSHUA FERNANDEZ [facility] Start: 06-18-2023 Refill Ivette noe MD Work Phone: [facility] Comment on above: Refill Request Start: 06-05-2023 Non-patient / Non-visit Dr. Jessie Welsh Work Phone: [facility] Work Phone: Start: 06-04-2023 Non-patient / Non-visit Dr. Jessie Welsh Work Phone: [facility] Work Phone: Start: 06-04-2023 End: 06-05-2023 Evaluation and management of inpatient Dr. Ivette Welsh Work Phone: [facility] Work Phone: Start: 06-04-2023 End: 06-05-[address] Ivette Welsh Work Phone: [facility] Work Phone: Start: 05-19-2023 ambulatory Radha Victoria RN [facility] Start: 05-19-2023 Follow-up encounter Radha Esme R [facility] [employer] Comment on above: Transition Of Care ( TCM follow up) Start: 05-12-2023 ambulatory Damaris valdes RN [facility] Start: 05-12-2023 Follow-up encounter Damaris Francis RN [employer] Comment on above: Transition Of Care ( TCM follow up ) Start: 05-03-2023 Patient Outreach Meli Olsen RN [employer] Comment on above: Transition Of Care ( Initial Outreach D/C Javit 05/01/23 - LM x 2 days ) Start: 04-29-2023 End: 05-01-2023 Evaluation and management of inpatient IVETTE WELSH Facility:[id number] Start: 02-22-2023 End: 02-22-2023 Emergency department patient visit ELKE GARCIA MD Facility:[facility] Start: 02-22-2023 End: 02-22-2023 Emergency department patient visit ELKE GARCIA MD [facility] Start: 02-18-2023 End: 02-18-2023 Patient encounter procedure Ivette Welsh MD Work Phone: [facility] Comment on above: Hospital discharge f ollow-up (Primary Dx); Acute pyelonephritis; Chronic obstructive pulmonary disease, unspecified COPD type (HCC); Dysphagia, unspecified type Start: 02-11-2023 Non-patient / Non-visit Dr. Jessie Welsh Work Phone: [facility] Work Phone: Start: 02-10-2023 Non-patient / Non-visit Dr. Jessie Welsh Work Phone: [facility] Work Phone: Start: 02-09-2023 Non-patient / Non-visit Dr. Jessie Welsh Work Phone: [facility] Work Phone: Start: 02-08-2023 End: 02-11-2023 Evaluation and management of inpatient Dr. Ivette Welsh [facility] Work Phone: Start: 12-30-2022 End: 12-30-2022 [facility] Start: 12-21-2022 Refill Ivette noe MD Work Phone: [facility] Comment on above: Refill Request Start: 11-18-2022 ambulatory Ivette noe MD Work Phone: Internal Medicine [facility] Start: 11-16-2022 End: 11-16-2022 [facility] Start: 11-13-2022 End: 11-13-2022 Subsequent hospital visit by physician Xr [facility] Work Phone: Radiology Comment on above: Acute cough [R05.1] Start: 10-11-2022 End: 10-12-2022 [facility] Start: 10-01-2022 Refill Jagdeep ELDRIDGE RN.CLUTCH SPECIALIST, DNP Work Phone: Family Medicine [facility] Comment on above: Refill Request Start: 09-09-2022 End: 09-09-2022 Emergency department patient visit [facility] Start: 06-29-2022 [facility] Comment on above: Population Health Na vigation Outreach (HCC) Start: 06-24-2022 ambulatory Jacquie Cortez [facility] Comment on above: Allied Health Visit Start: 04-02-2017 End: 04-02-2017 Ambulatory BRENT (PAC) [facility] Procedures Date Procedure Procedure Detail Performing Clinician Start: 08-23-2024 STREP A MOLECULAR (POC) Juhi Newell OUTDOOR STUDIES PROFESSOR.CLUTCH SPECIALIST Work Phone: Start: 06-04-2023 CT angiography of ch est with contrast Dr. Ivette Welsh Work Phone: Start: 06-04-2023 SARS-CoV-2 & FLU Ant igen (Rapid) Dr. Ivette Welsh Work Phone: Start: 02-09-[address] Jessie Welsh Work Phone: Start: 02-08-2023 Bacteria identified in Blood by Culture Dr. Ivette Welsh Work Phone: Start: 02-08-[address] Ivette Welsh Work Phone: Start: 02-08-2023 CT of abdomen and pe lvis without contrast Dr. Ivette Welsh Work Phone: Start: 12-30-2022 CT of abdomen and pe lvis without contrast Start: 11-16-2022 Computed tomography of abdomen and pelvis with intravenous contrast Start: 11-16-2022 Plain chest X-ray Start: 11-13-2022 Radiologic exam ches t 2 views Damon TORRES Work Phone: Start: 10-11-2022 MRI of lower extremity Start: 10-11-2022 Radiography of ankle Start: 10-11-2022 X-ray of both feet Start: 09-09-2022 Computed tomography of abdomen and pelvis with intravenous contrast Start: 04-26-2021 Ecg routine ecg w/le ast 12 lds i&r only Start: 03-31-2019 Lipid 1996 panel - S viridiana or Plasma Meli Olsen RN Start: 02-08-2016 Colonoscopy Jacquiemega Cortez [facility] Start: 10-17-2013 Mammography Jacquie [facility] Cholecystectomy ELKE James MD Ligation of fallopian tube A RADHA GARCIA MD Plan of Treatment Date Care Activity Detail Author Start: 05-01-2026 Diabetes Screening Diabetes Screenin g [facility] Start: 02-07-2026 Colonoscopy COLONOSCOPY [facility] Start: 02-07-2026 COLORECTAL CANCER SCREENING COLORECTAL CANCER SCREENING [facility] Start: 02-07-2026 Screening for malign ant neoplasm of colon [facility] Start: 07-24-2025 Annual PCP Team [employer] lukasz Disease Visit Annual PCP Team Chronic Disease Visit [facility] Start: 10-23-2024 End: 10-23-2024 Patient encounter procedure 10/23/2024 2:40 PM EDT Office Visit Family [facility] [place] [address] [facility] [place] [address] Ivette Welsh MD [address] [place] [address] 3 month follow up [facility] Comment on above: 3 month follow up Start: 07-24-2024 End: 07-24-2024 Patient encounter procedure 07/24/2024 2:00 PM EST Office Visit [facility] [address] [facility] [place] [address] Ivette Welsh MD [address] [place] [address] [facility] f/u Pnemonia/asthma 07/15-07/17 [facility] Comment on above: WC f/u Pnemonia/ast hma 07/15-07/17 Start: 03-31-2024 Lipid 1996 panel - S viridiana or Plasma Lipid Screening [facility] Start: 03-31-2024 Lipid panel Lipid Screening [facility] Start: 03-31-2024 LIPID SCREEN LIPID SCREEN [facility] Start: 03-19-2024 Influenza vaccination C [facility] Start: 02-19-2024 ANNUAL PCP TEAM TRAFFIC COUNTER LUKASZ DISEASE VISIT ANNUAL PCP TEAM CHRONIC DISEASE VISIT [facility] Start: 06-05-2023 Patient discharge [facility] Start: 06-05-2023 Ambulation without limitation [facility] Start: 06-05-2023 Assessment of risk o f venous thromboembolism [facility] Start: 06-05-2023 Insertion of cathete r into peripheral vein [facility] Start: 06-05-2023 Measuring intake and output [facility] Start: 06-05-2023 Oxygen therapy [facility] Start: 06-05-2023 Providing care accor ding to standard [facility] Start: 06-05-2023 [facility] Start: 06-05-2023 Admission procedure [facility] Start: 06-05-2023 Following clinical pathway protocol [facility] Start: 06-05-2023 Patient referral to dietitian [facility] Start: 06-04-2023 [facility] Start: 06-04-2023 Hospital admission, emergency, from emergency room, medical nature [facility] Start: 06-04-[address] [facility] Start: 06-04-[address] [facility] Start: 06-04-2023 Bacteria identified in Blood by Culture Blood Culture [facility] Start: 03-19-2023 Influenza vaccination [facility] Start: 02-18-2023 End: 04-20-2023 Urinalysis complete panel - Urine URINALYSIS WITH MICROSCOPIC, REFLEX CULTURE Lab Routine Acute pyelonephritis Expected: 02/18/2023, Expires: 04/20/2023 [facility] Work Phone: Comment on above: Expected: 02/18/2023 , Expires: 04/20/2023 Start: 02-11-2023 Patient discharge [facility] Start: 02-10-2023 [facility] Start: 02-09-2023 Following clinical pathway protocol [facility] Start: 02-08-2023 Ambulation without limitation [facility] Start: 02-08-2023 Assessment of risk o f venous thromboembolism [facility] Start: 02-08-2023 Inhalation therapy procedure [facility] Start: 02-08-2023 Insertion of cathete r into peripheral vein [facility] Start: 02-08-2023 Measuring intake and output [facility] Start: 02-08-2023 Oxygen therapy [facility] Start: 02-08-2023 Providing care accor ding to standard [facility] Start: 02-08-2023 [facility] Start: 02-08-2023 Following clinical pathway protocol [facility] Start: 02-08-2023 Admission procedure [facility] Start: 02-08-[address] [facility] Start: 02-08-2023 Consultation [facility] Start: 11-16-2022 [facility] Start: 09-29-2022 ANNUAL PCP TEAM TRAFFIC COUNTER LUKASZ DISEASE VISIT ANNUAL PCP TEAM CHRONIC DISEASE VISIT [facility] Start: 03-31-2022 DIABETES SCREEN DIABETES SCREEN [facility] Start: 03-19-2022 Influenza vaccination INFLUENZA (#1) [facility] Start: 03-03-2022 Urine microalbumin profile [facility] Start: 08-04-2017 HPV TESTING HPV TESTING [facility] Start: 08-04-2017 PAP TESTING PAP TESTING [facility] Start: 08-04-2017 Screening for malign ant neoplasm of cervix [facility] Start: 02-26-2017 End: 02-26-2017 Appointment Appointment [facility] Phone: Start: 02-24-2017 End: 02-24-2017 Appointment Appointment [facility] Phone: Start: 01-13-2017 End: 01-13-2017 Appointment Appointment [facility] Phone: Start: 01-13-2017 End: 01-13-2017 DMB DMB [facility] Phone: Start: 01-13-2017 End: 01-13-2017 Follow Up Appt 6 weeks Follow Up Appt 6 weeks [facility] Phone: Start: 01-13-2017 End: 01-13-2017 Pulmonary Function Test - complete Pulmonary Function Test - complete [facility] Phone: Start: 01-13-2017 End: 01-13-2017 Pulmonary stress test/simple Pulmonary stress testing; simple (eg, 6-minute walk) [facility] Phone: Start: 2016 SHINGRIX VACCINE (1 of 2) LOPEZ GRIX VACCINE (1 of 2) [facility] Start: 10-17-2014 Mammography [facility] Start: 10-17-2014 Screening for malign ant neoplasm of breast Mammogram Screening [facility] Start: 08-24-2013 FECAL OCCULT BLOOD FECAL OCCULT BLOO D [facility] Start: 08-24-2013 Screening for malign ant neoplasm of colon Fecal Occult Blood [facility] Start: 2011 COLOGUARD (FIT-DNA) COLOGUARD (FIT-D NA) [facility] Start: [address] COLONOGRAPHY [facility] Start: 2011 Screening for malign ant neoplasm of colon [facility] Start: 2011 SIGMOIDOSCOPY SIGMOIDOSCOPY [facility] Start: 1996 Zoledronic acid therapy ALPHA- 1 ANTITRYPSIN DEFICIENCY SCREENING [facility] Start: 1985 Hepatitis B Vaccine (1 of 3 - 19+ 3-dose series) Hepatitis B Vaccine (1 of 3 - 19+ 3-dose series) [facility] Start: 1985 Pneumococcal Vaccine : 50+ (1 of 2 - PCV) Pneumococcal Vaccine: 50+ (1 of 2 - PCV) [facility] Start: 1984 BP CONTROLLED (<130/80) BP CONTROLLE D (<130/80) [facility] Start: 1972 PNEUMOCOCCAL (1 - PCV) PNEUMOCOCCAL (1 - PCV) [facility] Start: 1972 Pneumococcal vaccination [facility] Start: 1966 HEPATITIS B (1 of 3 - 3-dose series) HEPATITIS B (1 of 3 - 3-dose series) [facility] Start: 1966 Hepatitis B Vaccine (1 of 3 - 3-dose series) Hepatitis B Vaccine (1 of 3 - 3-dose series) [facility] COVID & INFLUENZA A/ B & RSV PCR, ROUTINE COVID & INFLUENZA A/B & RSV PCR, ROUTINE Microbiology Routine Sore throat URI, acute Ordered: 08/23/2024 [facility] Work Phone: Comment on above: Ordered: 08/23/2024 End: 10-26-2025 DBT Breast - bilateral screening DARIA SCREENING W DANTE Radiology Routine Encounter for screening mammogram for breast cancer 1 Occurrences starting 09/26/2024 until 10/26/2025 [facility] Work Phone: Comment on above: 1 Occurrences starti ng 09/26/2024 until 10/26/2025 End: 12-18-2023 DARIA SCREENING DARIA SCREENING Radiology Routine Encounter for screening mammogram for breast cancer 1 Occurrences starting 11/18/2022 until 12/18/2023 [facility] Work Phone: Comment on above: 1 Occurrences starti ng 11/18/2022 until 12/18/2023 End: 11-25-2024 MG Breast Screening DARIA SCREENING Radiology Routine Encounter for screening mammogram for breast cancer 1 Occurrences starting 10/27/2023 until 11/25/2024 [facility] Work Phone: Comment on above: 1 Occurrences starti ng 10/27/2023 until 11/25/2024 Patient Education [facility] Work Phone: Patient referral [facility] Work Phone: [facility] Immunizations Immunization Date Immunization Notes Care Provider Fa lidia 10-08-2017 influenza virus vacc ine, unspecified formulation Meli Olsen RN [facility] 03-03-2012 tetanus toxoid, redu ankita diphtheria toxoid, and acellular pertussis vaccine, adsorbed Jacquie Koepf [facility] Payers Date Payer Category Payer Medicare (Managed Care) [employer] [id number] 2024 Private Health Insurance [id number] 2023 Self-pay [id number] 2023 Medicare [id number] 2023 Private Health Insurance [id number] 2022 Unknown [id number] 2022 Unknown [id number] 2018 Medicaid [id number] 2014 Medicaid [id number] 2014 Unknown [id number] 1966 Unknown [id number] [id number] 1966 Unknown [id number]. 627 1966 Unknown [id number]. 627 Medicare MEDICARE PART A B [id number] Unknown [id number] 462 Unknown [id number] 462 Unknown [id number]. 462 Unknown [id number]. 462 Unknown [id number]. 462 Unknown [id number]. 462 Unknown [id number]. 462 Unknown [id number]. 462 Unknown [id number]. 462 Unknown [id number] 462 Social History Date Type Detail Facility Start: 12-27-1984 End: 08-23-2024 Tobacco smoking status NHIS Occasional tobacco smoker [facility] Work Phone: Start: 12-27-1984 History of tobacco use Cigarette Smo ker [facility] Work Phone: Start: 11-29-2015 End: 08-23-2024 Tobacco use and exposure Smokeless tobacco non-user [facility] Work Phone: Start: 03-04-2022 End: 08-23-2024 Alcohol intake Current drinker of alcohol (finding) [facility] Start: 11-29-2015 End: 11-13-2022 Tobacco Comment 2-3 cigarettes daily, 11/29/2015. [facility] Start: 11-29-2015 Alcohol Comment Quit drinking ETOH, which was getting to be a problem. [facility] Start: 1965 Sex Assigned At Not on file C [facility] Start: 09-09-2022 End: 06-05-2023 Tobacco smoking status NHIS Unknown if ever smoked [facility] Start: 12-03-2019 None [facility] Start: 09-17-2019 With Family [facility] Start: 11-24-2020 Cigarettes [facility] Start: 1965 Sex Assigned At Female [facility] Start: 02-18-2023 End: 07-24-2024 History of Social function [facility] Start: 02-18-2023 End: 07-24-2024 Tobacco use panel [facility] Adult Depression Screening Assessment 5 [facility] Start: 02-22-2023 Tobacco smoking status Heavy t obacco smoker (finding) [facility] Sex Assigned At [facility] Start: 12-07-2011 Sex Female (finding) [facility] Goals Date Patient Goal Desired Activity /State Personal health goal Functional Status Date Assessment Result Facility 07-12-2024 Functional Status ID band on, Call device within reach, Bed in low position [facility] 07-01-2023 Functional Status Standard Safet y ID band on, Allergy Band on, Call device within reach, Bed in low position, Wheels locked, Upper/Half-Length side-rails up, Phone within reach, personal items within reach, Bedside Cart Locked [facility] 06-05-2023 Functional status Ambulates;Up ad abad [facility] Work Phone: 02-22-2023 Functional Status Up ad abad [place] Bryan gordon [facility] 02-22-2023 Functional Status ID band on, Call device within reach, Bed in low position, Wheels locked, Bedside Cart Locked, Safety level maintained [facility] 02-11-2023 Functional status Ambulates [facility] Work Phone: 06-05-2016 Are you deaf, or do you have serious difficulty hearing No 06/05/2016 3:07 PM Kenisha Madera III, MD [facility] 06-05-2016 Are you blind, or do you have serious difficulty seeing, even when wearing glasses No 06/05/2016 3:07 PM Kenisha Madera III, MD [facility] 06-05-2016 Do you have serious difficulty walking or climbing stairs No 06/05/2016 3:07 PM Kenisha Madera III, MD [facility] 06-05-2016 Do you have difficul ty dressing or bathing No 06/05/2016 3:07 PM Kenisha Madera III, MD [facility] 06-05-2016 Because of a physica l, mental, or emotional condition, do you have difficulty doing errands alone such as visiting a physician's office or shopping No 06/05/2016 3:07 PM Kenisha Madera III, MD [facility] Mental Status Date Assessment Result Facility 07-12-2024 Mental Status Oriented x 4 [facility] 07-01-2023 Mental Status Orientation Oriented x 4 [facility] 06-05-2023 Cognitive function Voice/Name [facility] Work Phone: 02-22-2023 Mental Status Orientation Oriented x 4 [facility] 02-22-2023 Mental Status [facility] 02-11-2023 Cognitive function Voice/Name [facility] Work Phone: 06-05-2016 Because of a physica l, mental, or emotional condition, do you have serious difficulty concentrating, remembering, or making decisions No 06/05/2016 3:07 PM Kenisha Madera III, MD No [facility] Clinical Notes 06-05-2016 to 11-02-2024 Telephone Encounter - Ivette Welsh MD - 11/02/2024 9:09 AM EDTTelephone Encounter - Ivette Welsh MD - 11/02/2024 9:09 AM EDTPatient Instructions Note Date & Type Note Facility 11-02-2024 Telephone encounter Note OK to refill as ordered Ivette Welsh MD [facility] 11-02-2024 Miscellaneous Notes OK to refill as ordered Ivette Welsh MD Pt reports she goes through 2 inhalers a month and she is almost out of the one she has. States she needs refill cristy because she cannot go without it. The patient has been identified by name and date of : Yes Caregiver verified no other encounters exist for this prescription request: Yes Caregiver confirmed with patient/requestor that no other refills are due, in the near future, with this provider at this time: Yes The last office visit in the department: 07/24/2024 Does the patient have a future office visit with this provider/department: No Visit date not found Requested Prescriptions Pending Prescriptions Disp Refills albuterol HFA (PROVENTIL HFA, VENTOLIN HFA) 90 mcg/actuation inhaler 8.5 g 5 Sig: inhale 2 puffs by mouth and INTO THE LUNGS every 4 hours if needed for wheezing or shortness of breath Sergei Youssef RN November 02, 2024 9:03 AM documented in this encounter [facility] 11-02-2024 Telephone encounter Note Pt reports she goes through 2 inhalers a month and she is almost out of the one she has. States she needs refill cristy because she cannot go without it. The patient has been identified by name and date of : Yes Caregiver verified no other encounters exist for this prescription request: Yes Caregiver confirmed with patient/requestor that no other refills are due, in the near future, with this provider at this time: Yes The last office visit in the department: 07/24/2024 Does the patient have a future office visit with this provider/department: No Visit date not found Requested Prescriptions Pending Prescriptions Disp Refills albuterol HFA (PROVENTIL HFA, VENTOLIN HFA) 90 mcg/actuation inhaler 8.5 g 5 Sig: inhale 2 puffs by mouth and INTO THE LUNGS every 4 hours if needed for wheezing or shortness of breath Sergei Youssef RN November 02, 2024 9:03 AM [facility] 09-26-2024 Note Patient Outreach (FA MPWS) SAVANNAH IRVIN ([id number]) 1965 F Date Time Provider Department 09/26/24 IVETTE WELSH During your visit today, we recorded the following information about you: Allergies As of Date: 09/26/2024 Noted Allergy Reaction ARGAN NUT 04/29/2023 10 - Anaphylaxis BRAZIL NUT 04/29/2023 10 - Anaphylaxis CASHEW NUT 04/29/2023 10 - Anaphylaxis HAZELNUT 04/29/2023 10 - Anaphylaxis MACADAMIA NUT OIL 04/29/2023 10 - Anaphylaxis PEANUTS 04/29/2023 10 - Anaphylaxis PECAN NUT 04/29/2023 10 - Anaphylaxis PINE NUT 04/29/2023 10 - Anaphylaxis PISTACHIO NUT 04/29/2023 10 - Anaphylaxis TREE NUT 04/29/2023 10 - Anaphylaxis Date Reviewed: 08/23/2024 Reviewed by: Yasmine Edward MA - Fully Assessed Visit Diagnosis:Encounter for screening mammogram for breast cancer [Z12.31] Order(s):DARIA SCREENING W DANTE [[id number]] Order #: [id number] FUTURE Prescriptions as of 10/27/2024 - sucralfate (CARAFATE) 1 gram tablet .TID AC - pantoprazole DR (PROTONIX) 40 mg tablet Take 1 tablet by mouth two times a day. Take on empty stomach, 1/2 hr before meal. - albuterol HFA (PROVENTIL HFA, VENTOLIN HFA) 90 mcg/actuation inhaler inhale 2 puffs by mouth and INTO THE LUNGS every 4 hours if needed for wheezing or shortness of breath - ipratropium-albuterol (DUONEB) 0.5 mg-3 mg(2.5 mg base)/3 mL nebu Inhale 3 mL as instructed every 6 hours as needed (wheezing). Use over 5-15minutes per nebulizer. - EPINEPHrine (EPIPEN) 0.3 mg/0.3 mL auto-injector Use as directed for allergic reaction - Nebulizer Accessories misc 1 Each twice daily. New mask for nebulizer - Ibuprofen 200 mg cap Take by mouth as directed. - Nebulizer 1 Device four times daily as needed. NEBULIZER FOR HOME USE. DX: pneumonia; asthma J 45.909 J 15.9 - Nebulizer Accessories kit 1 Each four times daily as needed. - Blood Pressure Cuff - Home Use BLOOD PRESSURE CUFF FOR HOME USE. DX: LABILE BLOOD PRESSURE - COMPOUNDED PRESCRIPTION 1 Device once daily. NEBULIZER FOR HOME USE. DX: asthma, mild intermittent J45.20 - + Nebulizer Supplies Nebulizer, Mask, AND O2 Tubing. Use as directed. Problem List As Of Date 09/26/2024 Noted Resolved Asthma [J45.909] Sprain of neck [S13.9XXA] 10/29/2005 09/03/2014 Lateral epicondylitis of elbow [M77.10] 03/09/2006 09/03/2014 Lesion of plantar nerve [G57.60] 03/09/2006 09/03/2014 BENIGN HYPERTENSION [I10] 05/17/2006 Cervicalgia [M54.2] 03/14/2007 09/03/2014 History of cerebral infarction [Z86.73] 12/31/2011 Depression [F32.A] 12/31/2011 07/25/2020 Anaphylactic reaction [T78.2XXA] 12/31/2011 09/03/2014 Chronic bronchitis (HCC) [J42] 08/03/2012 Microscopic hematuria [R31.29] 08/25/2012 Proteinuria [R80.9] 08/25/2012 Cervical spine arthritis [M47.812] 08/31/2012 Reflux esophagitis [K21.00] 09/19/2012 Alcohol abuse [F10.10] 11/30/2014 10/29/2015 Hyperlipidemia [E78.5] 11/30/2014 Alcoholism (HCC) [F10.20] 01/16/2015 03/26/2016 Tobacco use disorder [F17.200] 01/29/2015 Right-sided lacunar infarction (HCC) [I63.81] 07/03/2015 07/25/2020 Bilateral low back pain without sciatica [M54.5*07/16/2015 Morbid obesity due to excess calories (HCC) [E6*10/30/2015 07/25/2020 Alcohol abuse, in remission [F10.11] 10/30/2015 Pulmonary embolus (HCC) [I26.99] 11/07/2015 03/03/2017 Anxiety and depression [F41.9, F32.A] 11/07/2015 Chronic pain [G89.29] 11/07/2015 Thrombocytosis (HCC) [D75.839] 12/10/2015 07/25/2020 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] 02/06/2016 10/12/2017 Chronic prescription opiate use [Z79.891] 02/13/2016 10/12/2017 Anemia due to GI blood loss [D50.0] 03/02/2016 03/03/2017 Rectal bleeding [K62.5] 03/02/2016 03/03/2017 Idiopathic colitis [K52.9] 03/02/2016 Seizure disorder (HCC) [G40.909] 06/05/2016 10/12/2017 Rotator cuff syndrome of both shoulders [M75.10*06/05/2016 10/12/2017 Renal stone [N20.0] 09/16/2016 Leukocytosis [D72.829] 10/16/2017 Elevated sedimentation rate [R70.0] 10/16/2017 Obesity, Class I, BMI 30-34.9 [E66.811] 09/29/2021 Acute respiratory failure with hypoxia (HCC) [J*04/29/2023 07/24/2024 Encounter Status:Closed by [employer] on 10/27/24 [facility] 08-24-2024 Telephone encounter Note Pt returned call and given provider's message below with verbalized understanding. Reviewed home care instructions with patient. [facility] 08-24-2024 Miscellaneous Notes Pt returned call and given provider's message below with verbalized understanding. Reviewed home care instructions with patient. Listed contact number for patient is not currently accepting calls, please try again later. Lindsay Muse MA Please let patient know she is negative for COVID flu and RSV. documented in this encounter [facility] 08-24-2024 Telephone encounter Note Listed contact number for patient is not currently accepting calls, please try again later. Lindsay Muse MA [facility] 08-24-2024 Telephone encounter Note Please let patient know she is negative for COVID flu and RSV. [facility] Work Phone: 08-23-2024 Instructions Marcy Anthony APRN.[employer] - 08/23/2024 4:43 PM EST Images from the original note were not included. covid rsv, and influenza test ordered You will be notified in 12-24 hours, results available on MyChart Rest, increase water intake Motrin or Tylenol as needed for fever or pain. Salt water gargles, chloraseptic spray or lozenges as needed for sore throat. Warm beverages, honey. Nasal saline spray as needed Cool mist humidifier at night Tylenol (generic acetaminophen) 500 mg-2 tabs every 8 hrs. as needed for fever and aches -Mucinex (generic is fine) Guaifenesin 1200 mg twice daily to help with cough and to thin out mucus If covid posiive start paxlovid, if not destroy prescriptiion * Seek medical care immediately, call 911, go to ER if you have chest pain, difficulty breathing, shortness of breath, inability to swallow. * Prednisone 40 mg (2 tablets) per day for 5 days, take in morning or early in day * Do not NSAIDs during this 5 day course (ibuprofen, naproxen, Motrin, Aleve, Advil) Tylenol only during prednisone use * Follow up with primary care provider if no improvement with treatment * Seek medical care immediately, call 911, go to ER if you have chest pain, difficulty breathing, shortness of breath, inability to swallow. FACT SHEET FOR PATIENTS, PARENTS, AND CAREGIVERS EMERGENCY USE AUTHORIZATION (EUA) OF PAXLOVID FOR CORONAVIRUS DISEASE 2019 (COVID-19) You are being given this Fact Sheet because your healthcare provider believes it is necessary to provide you with PAXLOVID for the treatment of pxqs-em-xhmpzfge coronavirus disease (COVID-19) caused by the SARS-CoV-2 virus. This Fact Sheet contains information to help you understand the risks and benefits of taking the PAXLOVID you may receive. This Fact Sheet also contains information about how to take PAXLOVID and how to report side effects or problems with the appearance or packaging of PAXLOVID. The U.S. Food and Drug Administration (FDA) has issued an Emergency Use Authorization (EUA) to make PAXLOVID available for the treatment of kdqz-vx-yxiglyao COVID-19 in adults and children 12 years of age and older weighing at least 88 pounds (40 kg) who are at high risk for progression to severe COVID-19, including hospitalization or (for more details about an EUA please see What is an Emergency Use Authorization? at the end of this document). Read this Fact Sheet for information about PAXLOVID. Talk to your healthcare provider about your options or if you have any questions. It is your choice to take PAXLOVID. What is COVID-19? COVID-19 is caused by a virus called a coronavirus. You can get COVID-19 through close contact with another person who has the virus. COVID-19 illnesses have ranged from very gvmf-ph-pymaqa, including illness resulting in . While information so far suggests that most COVID-19 illness is mild, serious illness can happen and may cause some of your other medical conditions to become worse. Older people and people of all ages with severe, long lasting (chronic) medical conditions like heart disease, lung disease, and diabetes, for example seem to be at higher risk of being hospitalized for COVID-19. What is PAXLOVID? PAXLOVID is a medicine that is available under EUA for the treatment of vzlf-fe-ilgipqty COVID-19 in adults and children 12 years of age and older weighing at least 88 pounds (40 kg) who are at high risk for progression to severe COVID-19, including hospitalization or . Although PAXLOVID is FDA-approved for the treatment of COVID-19 in certain adults (see section What other treatment choices are there?), PAXLOVID use in children remains investigational because it is still being studied. There is limited information about the safety and effectiveness of using PAXLOVID to treat children with dtql-tz-qvlfpetw COVID-19. What is the most important information I should know about PAXLOVID? PAXLOVID can interact with other medicines causing severe or life-threatening side effects or . It is important to know the medicines that should not be taken with PAXLOVID. Do not take PAXLOVID if: you are taking any of the following medicines: o alfuzosin o amiodarone o apalutamide o carbamazepine o colchicine o dihydroergotamine o dronedarone o eletriptan o eplerenone o ergotamine o finerenone o flecainide o flibanserin o ivabradine o lomitapide o lovastatin o lumacaftor/ivacaftor o lurasidone o methylergonovine o midazolam (oral) o naloxegol o phenobarbital o phenytoin o pimozide o primidone o propafenone o quinidine o ranolazine o rifampin o rifapentine o [place] s Wort (hypericum perforatum) o sildenafil (Revatio ) for pulmonary arterial hypertension o silodosin o simvastatin o tolvaptan o triazolam o ubrogepant o voclosporin These are not the only medicines that may cause serious or life-threatening side effects if taken with PAXLOVID. PAXLOVID may increase or decrease the levels of multiple other medicines. It is very important to tell your healthcare provider about all of the medicines you are taking because additional laboratory tests or changes in the dose of your other medicines may be necessary during treatment with PAXLOVID. Your healthcare provider may also tell you about specific symptoms to watch out for that may indicate that you need to stop or decrease the dose of some of your other medicines. you are allergic to nirmatrelvir, ritonavir, or any of the ingredients in PAXLOVID. See the end of this leaflet for a complete list of ingredients in PAXLOVID. See What are the important possible side effects of PAXLOVID? for signs and symptoms of allergic reactions. What should I tell my healthcare provider before I take PAXLOVID? Tell your healthcare provider if you: have kidney problems. You may need a different dose of PAXLOVID. have liver problems, including hepatitis. have Human Immunodeficiency Virus 1 (HIV-1) infection. PAXLOVID may lead to some HIV-1 medicines not working as well in the future. are or plan to become . It is not known if PAXLOVID can harm your unborn baby. Tell your healthcare provider right away if you are or if you become . are or plan to breastfeed. It is not known if PAXLOVID can pass into your breast milk. Talk to your healthcare provider about the best way to feed your baby during treatment with PAXLOVID. Some medicines may interact with PAXLOVID and may cause serious side effects. Tell your healthcare provider about all the medicines you take, including prescription and tqmq-rgy-kcuskjy medicines, vitamins, and herbal supplements. Your healthcare provider can tell you if it is safe to take PAXLOVID with other medicines. You can ask your healthcare provider or pharmacist for a list of medicines that interact with PAXLOVID. Do not start taking a new medicine without telling your healthcare provider. Tell your healthcare provider if you are taking combined control (hormonal contraceptive). PAXLOVID may affect how your hormonal contraceptives work. Females who are able to become should use another effective alternative form of contraception or an additional barrier method of contraception during treatment with PAXLOVID. Talk to your healthcare provider if you have any questions about contraceptive methods that might be right for you. How do I take PAXLOVID? Take PAXLOVID exactly as your healthcare provider tells you to take it. PAXLOVID consists of 2 medicines: nirmatrelvir tablets and ritonavir tablets. The 2 medicines are taken together 2 times each day for 5 days. Nirmatrelvir is an oval, pink tablet. Ritonavir is a white or off-white tablet. PAXLOVID is available in 2 Dose Packs (see Figures A and B below). Your healthcare provider will prescribe the PAXLOVID Dose Pack that is right for you. If you have kidney disease, your healthcare provider may prescribe a lower dose (see Figure B). Talk to your healthcare provider to make sure you receive the correct Dose Pack. Do not remove your PAXLOVID tablets from the blister card before you are ready to take your dose. Take your first dose of PAXLOVID in the morning or evening, depending on when you sisal picker your prescription, or as your healthcare provider tells you to. Swallow the tablets whole. Do not chew, break, or crush the tablets. Take PAXLOVID with or without food. Do not stop taking PAXLOVID without talking to your healthcare provider, even if you feel better. If you miss a dose of PAXLOVID within 8 hours of the time it is usually taken, take it as soon as you remember. If you miss a dose by more than 8 hours, skip the missed dose and take the next dose at your regular time. Do not take 2 doses of PAXLOVID at the same time. If you take too much PAXLOVID, call your healthcare provider or go to the nearest hospital emergency room right away. If you are taking a ritonavir- or cobicistat-containing medicine to treat hepatitis C or HIV-1 infection, you should continue to take your medicine as prescribed by your healthcare provider. Talk to your healthcare provider if you do not feel better or if you feel worse after 5 days. What are the important possible side effects of PAXLOVID? PAXLOVID may cause serious side effects, including: Allergic reactions, including severe allergic reactions (anaphylaxis) have happened during treatment with PAXLOVID. Stop taking PAXLOVID and get medical help right away if you get any of the following symptoms of an allergic reaction: o skin rash, hives, blisters or peeling skin o painful sores or ulcers in the mouth, nose, throat or genital area o swelling of the mouth, lips, tongue or face o trouble swallowing or breathing o throat tightness o hoarseness Liver Problems. Tell your healthcare provider right away if you get any of the following signs and symptoms of liver problems during treatment with PAXLOVID: o loss of appetite o yellowing of your skin and the white of eyes o dark-colored urine o pale colored stools o itchy skin o stomach-area (abdominal) pain The most common side effects of PAXLOVID include: altered sense of taste and diarrhea. Other possible side effects include: headache vomiting abdominal pain nausea high blood pressure feeling generally unwell These are not all the possible side effects of PAXLOVID. For more information, ask your healthcare provider or pharmacist. What other treatment choices are there? PAXLOVID is FDA-approved for the treatment of lsdx-cg-putezrtu COVID-19 in certain adults; however, there are not sufficient quantities of the approved presentations (i.e., dose packs) of PAXLOVID at this time. This EUA continues to authorize the emergency use of PAXLOVID for the approved patient population to ensure continued access in order to meet the public health need. VEKLURY (remdesivir) is FDA-approved for the treatment of khoa-ay-exudwybr COVID-19 in certain adults and children. Talk with your healthcare provider to see if VEKLURY is appropriate for you. For information on the emergency use of other medicines that are authorized by FDA to treat people with COVID-19, please go to https://www.fda.gov/emergency-pr jpnthhhrex-thc-cxbyjvot/lynn-segun beckfordn-cqxywfifzg-xmy-policy-framewor k/hwrocbcqn-yrz-iemcguqphfpaa. Your healthcare provider may talk with you about clinical trials for which you may be eligible. It is your choice to be treated or not to be treated with PAXLOVID. Should you decide not to receive it or for your child not to receive it, it will not change your standard medical care. What if I am or ? There is limited experience treating women or mothers with PAXLOVID. For a mother and unborn baby, the benefit of taking PAXLOVID may be greater than the risk from the treatment. If you are , discuss your options and specific situation with your healthcare provider. If you are , discuss your options and specific situation with your healthcare provider. How do I report side effects or problems with the appearance or packaging of PAXLOVID? Contact your healthcare provider if you have any side effects that bother you or do not go away. Report side effects or problems with the appearance or packaging of PAXLOVID (see Figures A and B above for examples of PAXLOVID Dose Packs) to FDA MedWatch at www.fda.gov/medwatch or call 4-402-BYC-4473 or you can report side effects to [employer]. at the contact information provided below. How should I store PAXLOVID? Store PAXLOVID tablets at room temperature, between 68?F to 77?F (20?C to 25?C). Keep PAXLOVID and all medicines out of the reach of children. What if I have questions about the expiration date for my PAXLOVID? The FDA has extended the expiration date (shelf-life) for some lots of PAXLOVID. To find the extended expiration date, enter the lot number found on the side of carton or bottom of blister pack at this website: https://www.paxlovidlotexpiry.co m/ or talk with your healthcare provider. Information on the authorized shelf-life extensions for PAXLOVID may also be found at https://www.fda.gov/emergency-pr xjoghqbrow-pkd-preamqgq/mcm-irvina r-bmxudrtfpe-swx-policy-framewor k/rjccagpiwe-hqjoyp-yieqaivtv. How can I learn more about COVID-19? Ask your healthcare provider. Visit https://www.cdc.gov/COVID19. Contact your local or state public health department. What is an Emergency Use Authorization (EUA)? The [place] FDA has made PAXLOVID available under an emergency access mechanism called an Emergency Use Authorization (EUA). The EUA is supported by a Associate Chemist of Health and Human Services ([facility]) declaration that circumstances exist to justify the emergency use of drugs and biological products during the COVID-19 pandemic. In issuing an EUA, the FDA has determined, among other things, that based on the total amount of scientific evidence available including data from adequate and well-controlled clinical trials, if available, it is reasonable to believe that the product may be effective for diagnosing, treating, or preventing COVID-19, or a serious or life-threatening disease or condition caused by COVID-19; that the known and potential benefits of the product, when used to diagnose, treat, or prevent such disease or condition, outweigh the known and potential risks of such product; and that there are no adequate, approved, and available alternatives. All of these criteria must be met to allow for the product to be available under an EUA. The EUA for PAXLOVID is in effect for the duration of the COVID-19 declaration justifying emergency use of this product, unless the relevant EUA declaration is terminated or the EUA revoked (after which the products may no longer be used under the EUA). What are the ingredients in PAXLOVID? Active ingredient: nirmatrelvir and ritonavir Nirmatrelvir inactive ingredients: colloidal silicon dioxide, croscarmellose sodium, lactose monohydrate, microcrystalline cellulose, and sodium stearyl fumarate. Film-coating contains: hydroxy propyl methylcellulose, iron oxide red, polyethylene glycol, and titanium dioxide. Ritonavir inactive ingredients: anhydrous dibasic calcium phosphate, colloidal silicon dioxide, copovidone, sodium stearyl fumarate, and sorbitan monolaurate. The film coating may contain: colloidal anhydrous silica, colloidal silicon dioxide, hydroxypropyl cellulose, hypromellose, polyethylene glycol, polysorbate 80, talc, and titanium dioxide. Additional Information For general questions, visit the website or call the telephone number provided below. Website: [email or web address] Telephone number: (1-877-c19-PACK) Distributed by [employer] [place] [address] [id number] Revised: 11/2022 documented in this encounter [facility] 08-23-2024 Note HNO ID: [id number] Author: MARCY ANTHONY APRN.STEFANO Service: ? Author Type: Nurse Practitioner Type: Progress Notes Filed: 08/23/2024 17:25 Note Text: Subjective The history is provided by the patient. No historic interpreter was used. ALFREDO Irvin is a 59 year old female who presents today for CC of sore throat, nasal congestion and swollen glands for 2 days. She was exposed to covid. She has used theraflu and tylenol. BP 182/102 Pulse 95 Temp 37 ?C (98.6 ?F) Resp 20 Wt 76.8 kg (169 lb 5 oz) LMP 02/16/2010 SpO2 96% BMI 28.18 kg/m? Social History Tobacco Use Smoking status: Some Days Types: Cigarettes Start date: 12/27/1984 Smokeless tobacco: Never Tobacco comments: 2-3 cigarettes daily, 11/29/2015. Substance Use Topics Alcohol use: Yes Alcohol/week: 6.0 - 8.0 standard drinks of alcohol Types: 6 - 8 Cans of Beer (12oz) per week Comment: Quit drinking ETOH, which was getting to be a problem. Drug use: Yes Comment: No recent marijuana use PAST MEDICAL HISTORY Diagnosis Date Alcohol abuse 11/30/2014 Anaphylactic reaction 12/31/2011 Nuts Cervical spine arthritis 08/31/2012 CVA (cerebral infarction) 12/31/2011 CVA (cerebral infarction) 2013 Degenerative lumbar spinal stenosis 08/31/2012 Depression 12/31/2011 Depression 01/15/2015 [facility] Dysthymic disorder Depression (non-psychotic) Hyperlipidemia 12/31/2011 Hypertension Irregular menstrual cycle Irregular periods Low back pain 09/01/2012 Microscopic hematuria 08/25/2012 Morbid obesity due to excess calories ([facility]) 10/30/2015 PMH - PAST MEDICAL HISTORY OF neck problems Proteinuria 08/25/2012 Pulmonary embolus ([facility]) 11/07/2015 Reflux esophagitis 09/19/2012 Renal stone 09/16/2016 Right-sided lacunar infarction ([facility]) 07/03/201506/2015: right middle frontal gyrus anteriorly Tobacco abuse 09/19/2012 Unspecified asthma(493.90) I have confirmed and edited as necessary, the [facility] Review of Systems Constitutional: Negative for chills and fever. HENT: Positive for congestion and sore throat. Negative for ear pain and sinus pain. Swollen glands Respiratory: Negative for cough, sputum production, shortness of breath and wheezing. Cardiovascular: Negative for chest pain. Musculoskeletal: Negative for myalgias. Neurological: Negative for headaches. Objective Physical Exam Vitals and nursing note reviewed. HENT: Head: Normocephalic and atraumatic. Right Ear: Ear canal and external ear normal. A middle ear effusion is present. Left Ear: Ear canal and external ear normal. A middle ear effusion is present. Nose: Rhinorrhea present. No mucosal edema or congestion. Right Sinus: No maxillary sinus tenderness or frontal sinus tenderness. Left Sinus: No maxillary sinus tenderness or frontal sinus tenderness. Mouth/Throat: Pharynx: Uvula midline. Pharyngeal swelling (mild), oropharyngeal exudate (white), posterior oropharyngeal erythema and postnasal drip present. No uvula swelling. Tonsils: 2+ on the right. 2+ on the left. Cardiovascular: Rate and Rhythm: Normal rate and regular rhythm. Heart sounds: Normal heart sounds. Pulmonary: Effort: Pulmonary effort is normal. Breath sounds: Normal breath sounds. Lymphadenopathy: Head: Right side of head: No submental, submandibular or tonsillar adenopathy. Left side of head: No submental, submandibular or tonsillar adenopathy. Cervical: No cervical adenopathy. Skin: General: Skin is warm and dry. Neurological: Mental Status: She is alert. Psychiatric: Mood and Affect: Affect normal. ASSESSMENT/PLAN: 1. Sore throat - ICD9: 462, ICD10: J02.9 (primary diagnosis) - suspect viral - Group A strep molecular testing negative - Discussed supportive care treatment with fluids, rest and analgesia. - The patient may also use warm salt water gargles, throat lozenges and/or OTC throat spray as needed. - The patient should follow up in one week if symptoms persist or worsen - Call back if drooling, increased temperature, symptoms of dehydration and/or still sick in one week - STREP A MOLECULAR (POC) - COVID AND INFLUENZA A/B AND RSV PCR, ROUTINE 2. URI, acute - ICD9: 465.9, ICD10: J06.9 - Discussed viral etiology and rationale for treatment. - Symptomatic treatment with prn analgesia - Supportive care with fluids and rest - due to exposure to covid no contraindications for paxlovid - printed RX given to patient will start tomorrow if negative. - COVID AND INFLUENZA A/B AND RSV PCR, ROUTINE Diagnosis and treatment plan were discussed and questions were answered to the patient's satisfaction. Pt acknowledged understanding of concepts and follow up plan. Specific signs and symptoms that would indicate the need for higher level of care were discussed in detail warranting prompt ER evaluation. Marcy Anthony APRN.[facility] 08-23-2024 History of Presen t illness Narrative Subjective The history is provided by the patient. No historic interpreter was used. HPI Savannah Irvin is a 59 year old female who presents today for CC of sore throat, nasal congestion and swollen glands for 2 days. She was exposed to covid. She has used theraflu and tylenol. BP 182/102 Pulse 95 Temp 37 C (98.6 F) Resp 20 Wt 76.8 kg (169 lb 5 oz) LMP 02/16/2010 SpO2 96% BMI 28.18 kg/m Social History Tobacco Use Smoking status: Some Days Types: Cigarettes Start date: 12/27/1984 Smokeless tobacco: Never Tobacco comments: 2-3 cigarettes daily, 11/29/2015. Substance Use Topics Alcohol use: Yes Alcohol/week: 6.0 - 8.0 standard drinks of alcohol Types: 6 - 8 Cans of Beer (12oz) per week Comment: Quit drinking ETOH, which was getting to be a problem. Drug use: Yes Comment: No recent marijuana use PAST MEDICAL HISTORY Diagnosis Date Alcohol abuse 11/30/2014 Anaphylactic reaction 12/31/2011 Nuts Cervical spine arthritis 08/31/2012 CVA (cerebral infarction) 12/31/2011 CVA (cerebral infarction) 2012 Degenerative lumbar spinal stenosis 08/31/2012 Depression 12/31/2011 Depression 01/15/2015 [facility] Dysthymic disorder Depression (non-psychotic) Hyperlipidemia 12/31/2011 Hypertension Irregular menstrual cycle Irregular periods Low back pain 09/01/2012 Microscopic hematuria 08/25/2012 Morbid obesity due to excess calories ([facility]) 10/30/2015 PMH - PAST MEDICAL HISTORY OF neck problems Proteinuria 08/25/2012 Pulmonary embolus ([facility]) 11/07/2015 Reflux esophagitis 09/19/2012 Renal stone 09/16/2016 Right-sided lacunar infarction ([facility]) 07/03/201506/2015: right middle frontal gyrus anteriorly Tobacco abuse 09/19/2012 Unspecified asthma(493.90) I have confirmed and edited as necessary, the [facility] Review of Systems Constitutional: Negative for chills and fever. HENT: Positive for congestion and sore throat. Negative for ear pain and sinus pain. Swollen glands Respiratory: Negative for cough, sputum production, shortness of breath and wheezing. Cardiovascular: Negative for chest pain. Musculoskeletal: Negative for myalgias. Neurological: Negative for headaches. Objective Physical Exam Vitals and nursing note reviewed. HENT: Head: Normocephalic and atraumatic. Right Ear: Ear canal and external ear normal. A middle ear effusion is present. Left Ear: Ear canal and external ear normal. A middle ear effusion is present. Nose: Rhinorrhea present. No mucosal edema or congestion. Right Sinus: No maxillary sinus tenderness or frontal sinus tenderness. Left Sinus: No maxillary sinus tenderness or frontal sinus tenderness. Mouth/Throat: Pharynx: Uvula midline. Pharyngeal swelling (mild), oropharyngeal exudate (white), posterior oropharyngeal erythema and postnasal drip present. No uvula swelling. Tonsils: 2+ on the right. 2+ on the left. Cardiovascular: Rate and Rhythm: Normal rate and regular rhythm. Heart sounds: Normal heart sounds. Pulmonary: Effort: Pulmonary effort is normal. Breath sounds: Normal breath sounds. Lymphadenopathy: Head: Right side of head: No submental, submandibular or tonsillar adenopathy. Left side of head: No submental, submandibular or tonsillar adenopathy. Cervical: No cervical adenopathy. Skin: General: Skin is warm and dry. Neurological: Mental Status: She is alert. Psychiatric: Mood and Affect: Affect normal. ASSESSMENT/PLAN: 1. Sore throat - ICD9: 462, ICD10: J02.9 (primary diagnosis) - suspect viral - Group A strep molecular testing negative - Discussed supportive care treatment with fluids, rest and analgesia. - The patient may also use warm salt water gargles, throat lozenges and/or OTC throat spray as needed. - The patient should follow up in one week if symptoms persist or worsen - Call back if drooling, increased temperature, symptoms of dehydration and/or still sick in one week - STREP A MOLECULAR (POC) - COVID & INFLUENZA A/B & RSV PCR, ROUTINE 2. URI, acute - ICD9: 465.9, ICD10: J06.9 - Discussed viral etiology and rationale for treatment. - Symptomatic treatment with prn analgesia - Supportive care with fluids and rest - due to exposure to covid no contraindications for paxlovid - printed RX given to patient will start tomorrow if negative. - COVID & INFLUENZA A/B & RSV PCR, ROUTINE Diagnosis and treatment plan were discussed and questions were answered to the patient's satisfaction. Pt acknowledged understanding of concepts and follow up plan. Specific signs and symptoms that would indicate the need for higher level of care were discussed in detail warranting prompt ER evaluation. Marcy Anthony APRN.[employer]IST documented in this encounter [facility] 07-24-2024 History of Presen t illness Narrative Transitional Care Management TCM Eligibility Documentation The following information was gathered during patient outreach 07/18/2024 Date of Outreach: Outreach Attempt 1: Contact Made Date of Discharge 07/17/2024 Provider Documentation Savannah Irvin is a 59 year old female here today for a follow up from recent hospitalization. I have reviewed the patient's hospital course including discharge summary, discharge medications , and follow up needs with the patient and any family members present at today's visit. HPI 7 Day TCM Pt went to [facility] ER on 07/15/24 for dizziness, tired, weak, fatigue, slight cough; admitted. She was dx with dysphagia and developing pneumonia. Dysphagia has been a chronic issue. She was d/c home 07/17/24 with Prednisone 40 mg daily x 5 days, Mucinex DM BID x 7 days, Nicotine 14 mg patches once daily x 30 days, Carafate TID, and Levofloxacin 500 mg daily x 5 days. Antibiotic completed. Feeling better, the swallowing has been much better. Just the throat is still sore since 07/17/24 when she had the EGD with balloon dilatation, right side throat feels swollen. She had the balloon expanding dilation done and is supposed to follow up in a month to have a stent placed with Dr. Friend, Gastro. She is not longer bring up food, she states it is going down and staying down. Has dealt with that for years but never had any dilation done before. She is using her inhalers and nebulizer more. She feels her breathing is doing better. Sent home with Oxygen, wears it as needed. Checking her Pulse Ox at home with readings around 92% before oxygen use. She isn't wearing the oxygen at night while sleeping. Still smoking but the patch was going to cost her 90 dollars and she stated she couldn't afford that so never used the Patches. Is looking into hypnosis; she is motivated to quit smoking now. Below copied from [email or web address]: Chief Complaint: Dizziness Informant: patient Narrative Narrative: Patient is a 59-year-old female with history of COPD, tobacco use, pulmonary hypertension, hypertension, hyperlipidemia and kidney stones presenting with generalized malaise, dizziness, nausea, cough, shortness of breath and back pain. Patient states that she has not been feeling good all day is been more fatigued. She tried to go downstairs for the got dizzy feeling she was going to pass out. She did she has had some increased back pain for the past week with the right worse than the left. She states is her kidneys at her. She also for the past 1 is an intermittent sharp pains in her left lower quadrant. She denies any urinary symptoms such as dysuria or hematuria. She denies any change in her bowel movements but notes it has been a couple days since she had a bowel movement. She has been passing gas. She denies any chest pain or tightness but does feel more short of breath and feels like she is been wheezing more. She is been coughing and nothing comes up but she feels like there is mucus that needs to come out. She denies any URI symptoms. She notes her daughter was sick over [place] and she was around her. She does report a mild headache. No fevers reported. Does not take anything for symptoms prior to arrival. Does take a daily inhaler but no other medications. No other complaints or concerns reported at this time. Medical decision making narrative: Patient evaluated for near syncope today with worsening shortness of breath and cough as well as increased back pain for the past week. Differential includes influenza, kidney stone, pyelonephritis, pulmonary emboli, pneumonia, viral syndrome, COPD exacerbation, ACS, colitis and urinary tract infection. Patient is given DuoNeb treatment in the ER. She has some mild improvement. She is given initially Toradol for her pain and IV fluids. On repeat evaluation she continues to have pain and is given 1 dose of morphine in the emergency room. Initial chest x-ray viewed by myself does not show any acute process. Radiology interpreted the COPD/emphysematous changes with interstitial lung disease. Given her continued pain decision made to obtain a CT of the abdomen pelvis will also perform a CTA of the chest with PE study for further evaluation of her respiratory complaints. Lab work shows a mild leukocytosis of 11.4 but otherwise largely normal CBC. High since he troponin normal. Patient has mild hyponatremia sodium 134 and hypokalemia potassium of 3.2. Magnesium however is normal. Remainder of CMP largely normal. CK level obtained given her body aches but is normal with a level of 44. Urinalysis is not consistent with UTI. CT a of the chest does not show PE but does show crescent-shaped groundglass edema with crowding of the bronchovascular structures present to the medial basilar segment of the right lower lobe likely representing developing volume overload or pneumonia. There is also incidental finding of arterial branch focal aneurysm however radiology felt that it is not significant. I suspect patient might be developing pneumonia which fits her clinical picture and that is why she is having generalized malaise and increased respiratory symptoms. She clinically does not appear to have fluid overload. CT abdomen pelvis shows multiple chronic findings with no acute process. Patient is ambulated and dropped to 88%. Does not feel comfortable going home. Will be admitted for IV antibiotics, IV steroids, breathing treatments and further monitoring. Case is discussed with hospitalist, Dr. Hartmann. 07/16/24 01:37 Consult: Gastroenterology Routine Consulting Provider: [facility] Reason for Consult: suspected esophageal stenosis EMERGENT Consult: No MD Notified: Yes Date Notified: 07/16/24 Time Notified: 06:48 Method of Notification: Text Reason For Visit: PNA, AE ASTHMA/COPD, RESP INSUFF & NEAR SYNCOPE Diagnosis Discharge Diagnosis (1) Dysphagia: Status: Inactive Code(s): R13.10 - Dysphagia, unspecified Plan 59 old female was admitted with generalized malaise, nausea, dizziness, feeling that she is going to pass out but did not pass out, cough, SOB, weakness and back pain for 1 day. She has increased back pain for past 1 week, right more than left. 1. Dyspnea from possible evolving pneumonia: Patient is being admitted in PCU. CTA chest showed crescent shaped groundglass edema with crowding of bronchovascular structures in the medial basilar segment of right lower lobe concerning for evolving pneumonia. Patient has mild leukocytosis. Started on IV ceftriaxone and azithromycin. Triple PCR for SARS-CoV-2, flu and RSV are negative 07/17: Patient discharged on 5 more days of antibiotic Levaquin. 2. Acute Exacerbation of asthma/COPD with history of chronic cigarette smoker and cannabis abuse - Continue IV solumedrol begun in the ER and wean as tolerated. Also continue as needed/scheduled nebulizers and inhalers. Tobacco and cannabis cessation were strongly encouraged with nicotine patch offered to control cravings. Nicotine patch ordered. 07/17: Patient discharged on burst therapy of prednisone, Mucinex DM and pantoprazole. 3. Near syncopal event with Generalized Weakness, Fatigue and increasing back pain with chronic OA: 2D echo is ordered. Dizziness resolved 07/17: Echo is not done yet. Patient can do as an outpatient. She wants to go home Dysphagia: Patient states she has dysphagia for some time and gets 5 times a week mainly with the solid diet. She does not have dysphagia with liquid or water. Patient going for EGD. Impressions : - Benign-appearing esophageal stenoses. Dilated. Biopsied. Treated with argon beam coagulation. - Medium-sized hiatal hernia. - No gross lesions in the duodenal bulb. Recommendations : - - Repeat upper endoscopy in 2 months for surveillance. - Pantoprazole 40 mg p.o. twice daily - Carafate 1 g 3 times a day - Smoking cessation - Temporary esophageal stent placement to keep the stricture open 4. Incidental abnormal CT finding of degenerative fibroid or nonspecific endometrial or myometrial process: I think this pelvic ultrasound can be done as an outpatient this is not the presenting symptom that patient came with but incidental finding. 5. Hypokalemia of 3.2 mmol/L present on admission - Give supplemental KCl and then recheck level in a.m. to confirm replacement. 6. Suspected esophageal stenosis with patient having severe dysphagia feeling food getting stuck penitentiary down her esophagus and forcing herself to vomit - Give mechanical soft diet to see if patient will be better able tolerate oral intake as gastroenterology is not available until Wednesday. Therefore, we will consult gastroenterology to see this patient for recommendations regarding EGD this admission. 7. Overweight; with BMI of 28.4 this admission with HELIO - Weight loss will be recommended. Check TSH. This complicates her case and may hamper recovery. 7. Essential hypertension - Maintain home regimen plus give prn IV Hydralazine for systolic blood pressure > 160 mmHg. 8. Hyperlipidemia - Check Lipid Profile this admission with patient currently not on pharmacologic therapy. 9. History of EtOH abuse; patient denies actively drinking at this time - Noted. We will watch closely in case of signs or symptoms of alcohol withdrawal. 10. Chronic seizure, pulmonary hypertension, history of PE, GERD/reflux esophagitis and depression: No active issues. Patient not on any medication for this disease. DVT prophylaxis - Lovenox 40 mg sq daily plus SCD's. PHYSICAL EXAMINATION BP 138/88 Pulse 110 Resp 20 Wt 72.3 kg (159 lb 6.3 oz) LMP 02/16/2010 SpO2 92% BMI 26.52 kg/m GENERAL: well appearing, alert, in no acute distress HEART: regular rate and rhythm. No murmur, rubs or gallops. LUNGS: clear to auscultation, no wheezing, rhonchi, or crackles NECK: supple and thyroid midline, normal size, non-tender to palpation Throat: normal ASSESSMENT/PLAN: 1. Hospital discharge follow-up - ICD9: V67.59, ICD10: Z09 (primary diagnosis) Improved Continue current medications. 2. Dysphagia, unspecified type - ICD9: 787.20, ICD10: R13.10 Continue current medications. Follow with Gastro Dr. Friend 3. Chronic obstructive pulmonary disease, unspecified COPD type (HCC) - ICD9: 496, ICD10: J44.9 Smoking cessation encouraged Continue current medications. Continue with Oxygen prn 4. Bacterial pneumonia - ICD9: 482.9, ICD10: J15.9 Improved Continue with Oxygen Prn 5. Sore throat - ICD9: 462, ICD10: J02.9 Start Protonix Continue with Carafate If continues follow up with Amber Asencio Follow up in 3 months on COPD. I agree with the Chief Complaint, ROS, and Past Histories independently gathered by the clinical direct support staff and the remaining scribed note accurately describes my personal service to the patient. Ivette Welsh MD The documentation for this note was completed by Elena Lopez MA acting as scribe for Ivette Welsh MD. July 24, 2024 2:05 PM. Elena Lopez MA documented in this encounter [facility] 07-24-2024 Note HNO ID: [id number] Author: IVETTE WELSH MD Service: ? Author Type: Physician Type: Progress Notes Filed: 07/24/2024 14:52 Note Text: Transitional Care Management TCM Eligibility Documentation The following information was gathered during patient outreach 07/18/2024 Date of Outreach: Outreach Attempt 1: Contact Made Date of Discharge 07/17/2024 Provider Documentation Savannah Irvin is a 59 year old female here today for a follow up from recent hospitalization. I have reviewed the patient's hospital course including discharge summary, discharge medications , and follow up needs with the patient and any family members present at today's visit. HPI 7 Day TCM Pt went to [facility] ER on 07/15/24 for dizziness, tired, weak, fatigue, slight cough; admitted. She was dx with dysphagia and developing pneumonia. Dysphagia has been a chronic issue. She was d/c home 07/17/24 with Prednisone 40 mg daily x 5 days, Mucinex DM BID x 7 days, Nicotine 14 mg patches once daily x 30 days, Carafate TID, and Levofloxacin 500 mg daily x 5 days. Antibiotic completed. Feeling better, the swallowing has been much better. Just the throat is still sore since 07/17/24 when she had the EGD with balloon dilatation, right side throat feels swollen. She had the balloon expanding dilation done and is supposed to follow up in a month to have a stent placed with Dr. Asencio, Amber. She is not longer bring up food, she states it is going down and staying down. Has dealt with that for years but never had any dilation done before. She is using her inhalers and nebulizer more. She feels her breathing is doing better. Sent home with Oxygen, wears it as needed. Checking her Pulse Ox at home with readings around 92% before oxygen use. She isn't wearing the oxygen at night while sleeping. Still smoking but the patch was going to cost her 90 dollars and she stated she couldn't afford that so never used the Patches. Is looking into hypnosis; she is motivated to quit smoking now. Below copied from [email or web address]: Chief Complaint: Dizziness Informant: patient Narrative Narrative: Patient is a 59-year-old female with history of COPD, tobacco use, pulmonary hypertension, hypertension, hyperlipidemia and kidney stones presenting with generalized malaise, dizziness, nausea, cough, shortness of breath and back pain. Patient states that she has not been feeling good all day is been more fatigued. She tried to go downstairs for the got dizzy feeling she was going to pass out. She did she has had some increased back pain for the past week with the right worse than the left. She states is her kidneys at her. She also for the past 1 is an intermittent sharp pains in her left lower quadrant. She denies any urinary symptoms such as dysuria or hematuria. She denies any change in her bowel movements but notes it has been a couple days since she had a bowel movement. She has been passing gas. She denies any chest pain or tightness but does feel more short of breath and feels like she is been wheezing more. She is been coughing and nothing comes up but she feels like there is mucus that needs to come out. She denies any URI symptoms. She notes her daughter was sick over [place] and she was around her. She does report a mild headache. No fevers reported. Does not take anything for symptoms prior to arrival. Does take a daily inhaler but no other medications. No other complaints or concerns reported at this time. Medical decision making narrative: Patient evaluated for near syncope today with worsening shortness of breath and cough as well as increased back pain for the past week. Differential includes influenza, kidney stone, pyelonephritis, pulmonary emboli, pneumonia, viral syndrome, COPD exacerbation, ACS, colitis and urinary tract infection. Patient is given DuoNeb treatment in the ER. She has some mild improvement. She is given initially Toradol for her pain and IV fluids. On repeat evaluation she continues to have pain and is given 1 dose of morphine in the emergency room. Initial chest x-ray viewed by myself does not show any acute process. Radiology interpreted the COPD/emphysematous changes with interstitial lung disease. Given her continued pain decision made to obtain a CT of the abdomen pelvis will also perform a CTA of the chest with PE study for further evaluation of her respiratory complaints. Lab work shows a mild leukocytosis of 11.4 but otherwise largely normal CBC. High since he troponin normal. Patient has mild hyponatremia sodium 134 and hypokalemia potassium of 3.2. Magnesium however is normal. Remainder of CMP largely normal. CK level obtained given her body aches but is normal with a level of 44. Urinalysis is not consistent with UTI. CT a of the chest does not show PE but does show crescent-shaped groundglass edema with crowding of the bronchovascular structures present to the medial basilar (more content not included)... [facility] 07-21-2024 Telephone encounter Note Patient calls and is upset because the inhalers were not ordered on 07/18 like she asked. Advised patient that it looks like Dr. Welsh had sent in orders to [facility]. Called and spoke with Pharmacist at [facility]. Patient has prescription ready under a Savannah A. Irvin. Called and advised patient that prescription is ready under that name. Patient voices understanding. Rowan Amado RN [facility] 07-21-2024 Miscellaneous Notes Patient calls and is upset because the inhalers were not ordered on 07/18 like she asked. Advised patient that it looks like Dr. Welsh had sent in orders to [facility]. Called and spoke with Pharmacist at [facility]. Patient has prescription ready under a Savannah A. Irvin. Called and advised patient that prescription is ready under that name. Patient voices understanding. Rowan Amado RN documented in this encounter [facility] 07-18-2024 Note HNO ID: [id number] Author: ELENA LOPEZ MA Service: ? Author Type: Bed Setter Type: Progress Notes Filed: 07/18/2024 09:38 Note Text: TRANSITION CARE MANAGEMENT (TCM) INITIAL CONTACT Bed Setter Outreach Provider Action/FYI: 7 Day TCM Pt is feeling ok. Needs a refill on nebulizer solution and inhaler to [facility]. She states he has a sore throat, asking if there is anything she can take for that, sprays, etc? Doesn't have any money to buy anything OTC. Schedule to see Amber Mujica in 1 month. Initial contact with patient post discharge, spoke to patient. Patient identified by name and . TRANSITION CARE MANAGEMENT INITIAL OUTREACH DOCUMENTATION: No data to display SUMMARY: -Pt discharged from [facility] on 07/17/24. -Admitted for: dysphagia Do you have a hospital follow up appointment with your PCP? Appointment on 07/24/24 with PCP. Yes. Remind patient of appointment date, time, and location. If not within 14 calendar days of discharge - please reschedule accordingly. Below copied from [email or web address]: Chief Complaint: Dizziness Informant: patient Narrative Narrative: Patient is a 59-year-old female with history of COPD, tobacco use, pulmonary hypertension, hypertension, hyperlipidemia and kidney stones presenting with generalized malaise, dizziness, nausea, cough, shortness of breath and back pain. Patient states that she has not been feeling good all day is been more fatigued. She tried to go downstairs for the got dizzy feeling she was going to pass out. She did she has had some increased back pain for the past week with the right worse than the left. She states is her kidneys at her. She also for the past 1 is an intermittent sharp pains in her left lower quadrant. She denies any urinary symptoms such as dysuria or hematuria. She denies any change in her bowel movements but notes it has been a couple days since she had a bowel movement. She has been passing gas. She denies any chest pain or tightness but does feel more short of breath and feels like she is been wheezing more. She is been coughing and nothing comes up but she feels like there is mucus that needs to come out. She denies any URI symptoms. She notes her daughter was sick over [place] and she was around her. She does report a mild headache. No fevers reported. Does not take anything for symptoms prior to arrival. Does take a daily inhaler but no other medications. No other complaints or concerns reported at this time. Medical decision making narrative: Patient evaluated for near syncope today with worsening shortness of breath and cough as well as increased back pain for the past week. Differential includes influenza, kidney stone, pyelonephritis, pulmonary emboli, pneumonia, viral syndrome, COPD exacerbation, ACS, colitis and urinary tract infection. Patient is given DuoNeb treatment in the ER. She has some mild improvement. She is given initially Toradol for her pain and IV fluids. On repeat evaluation she continues to have pain and is given 1 dose of morphine in the emergency room. Initial chest x-ray viewed by myself does not show any acute process. Radiology interpreted the COPD/emphysematous changes with interstitial lung disease. Given her continued pain decision made to obtain a CT of the abdomen pelvis will also perform a CTA of the chest with PE study for further evaluation of her respiratory complaints. Lab work shows a mild leukocytosis of 11.4 but otherwise largely normal CBC. High since he troponin normal. Patient has mild hyponatremia sodium 134 and hypokalemia potassium of 3.2. Magnesium however is normal. Remainder of CMP largely normal. CK level obtained given her body aches but is normal with a level of 44. Urinalysis is not consistent with UTI. CT a of the chest does not show PE but does show crescent-shaped groundglass edema with crowding of the bronchovascular structures present to the medial basilar segment of the right lower lobe likely representing developing volume overload or pneumonia. There is also incidental finding of arterial branch focal aneurysm however radiology felt that it is not significant. I suspect patient might be developing pneumonia which fits her clinical picture and that is why she is having generalized malaise and increased respiratory symptoms. She clinically does not appear to have fluid overload. CT abdomen pelvis shows multiple chronic findings with no acute process. Patient is ambulated and dropped to 88%. Does not feel comfortable going home. Will be admitted for IV antibiotics, IV steroids, breathing treatments and further monitoring. Case is discussed with hospitalist, Dr. Hartmann. 07/16/24 01:37 Consult: Gastroenterology Routine Consulting Provider: [facility] Reason for Consult: suspected esophageal stenosis EMERGENT Consult: No MD Notified: Yes Date Notified: 07/16/24 Time No (more content not included)... [facility] 07-18-2024 History of Presen t illness Narrative TRANSITION CARE MANAGEMENT (TCM) INITIAL CONTACT Bed Setter Outreach Provider Action/FYI: 7 Day TCM Pt is feeling ok. Needs a refill on nebulizer solution and inhaler to [facility]. She states he has a sore throat, asking if there is anything she can take for that, sprays, etc? Doesn't have any money to buy anything OTC. Schedule to see Amber Mujica in 1 month. Initial contact with patient post discharge, spoke to patient. Patient identified by name and . TRANSITION CARE MANAGEMENT INITIAL OUTREACH DOCUMENTATION: No data to display SUMMARY: -Pt discharged from [facility] on 07/17/24. -Admitted for: dysphagia Do you have a hospital follow up appointment with your PCP? Appointment on 07/24/24 with PCP. Yes. Remind patient of appointment date, time, and location. If not within 14 calendar days of discharge - please reschedule accordingly. Below copied from [email or web address]: Chief Complaint: Dizziness Informant: patient Narrative Narrative: Patient is a 59-year-old female with history of COPD, tobacco use, pulmonary hypertension, hypertension, hyperlipidemia and kidney stones presenting with generalized malaise, dizziness, nausea, cough, shortness of breath and back pain. Patient states that she has not been feeling good all day is been more fatigued. She tried to go downstairs for the got dizzy feeling she was going to pass out. She did she has had some increased back pain for the past week with the right worse than the left. She states is her kidneys at her. She also for the past 1 is an intermittent sharp pains in her left lower quadrant. She denies any urinary symptoms such as dysuria or hematuria. She denies any change in her bowel movements but notes it has been a couple days since she had a bowel movement. She has been passing gas. She denies any chest pain or tightness but does feel more short of breath and feels like she is been wheezing more. She is been coughing and nothing comes up but she feels like there is mucus that needs to come out. She denies any URI symptoms. She notes her daughter was sick over [place] and she was around her. She does report a mild headache. No fevers reported. Does not take anything for symptoms prior to arrival. Does take a daily inhaler but no other medications. No other complaints or concerns reported at this time. Medical decision making narrative: Patient evaluated for near syncope today with worsening shortness of breath and cough as well as increased back pain for the past week. Differential includes influenza, kidney stone, pyelonephritis, pulmonary emboli, pneumonia, viral syndrome, COPD exacerbation, ACS, colitis and urinary tract infection. Patient is given DuoNeb treatment in the ER. She has some mild improvement. She is given initially Toradol for her pain and IV fluids. On repeat evaluation she continues to have pain and is given 1 dose of morphine in the emergency room. Initial chest x-ray viewed by myself does not show any acute process. Radiology interpreted the COPD/emphysematous changes with interstitial lung disease. Given her continued pain decision made to obtain a CT of the abdomen pelvis will also perform a CTA of the chest with PE study for further evaluation of her respiratory complaints. Lab work shows a mild leukocytosis of 11.4 but otherwise largely normal CBC. High since he troponin normal. Patient has mild hyponatremia sodium 134 and hypokalemia potassium of 3.2. Magnesium however is normal. Remainder of CMP largely normal. CK level obtained given her body aches but is normal with a level of 44. Urinalysis is not consistent with UTI. CT a of the chest does not show PE but does show crescent-shaped groundglass edema with crowding of the bronchovascular structures present to the medial basilar segment of the right lower lobe likely representing developing volume overload or pneumonia. There is also incidental finding of arterial branch focal aneurysm however radiology felt that it is not significant. I suspect patient might be developing pneumonia which fits her clinical picture and that is why she is having generalized malaise and increased respiratory symptoms. She clinically does not appear to have fluid overload. CT abdomen pelvis shows multiple chronic findings with no acute process. Patient is ambulated and dropped to 88%. Does not feel comfortable going home. Will be admitted for IV antibiotics, IV steroids, breathing treatments and further monitoring. Case is discussed with hospitalist, Dr. Hartmann. 07/16/24 01:37 Consult: Gastroenterology Routine Consulting Provider: [facility] Reason for Consult: suspected esophageal stenosis EMERGENT Consult: No MD Notified: Yes Date Notified: 07/16/24 Time Notified: 06:48 Method of Notification: Text Reason For Visit: PNA, AE ASTHMA/COPD, RESP INSUFF & NEAR SYNCOPE Diagnosis Discharge Diagnosis (1) Dysphagia: Status: Inactive Code(s): R13.10 - Dysphagia, unspecified Plan 59 old female was admitted with generalized malaise, nausea, dizziness, feeling that she is going to pass out but did not pass out, cough, SOB, weakness and back pain for 1 day. She has increased back pain for past 1 week, right more than left. 1. Dyspnea from possible evolving pneumonia: Patient is being admitted in PCU. CTA chest showed crescent shaped groundglass edema with crowding of bronchovascular structures in the medial basilar segment of right lower lobe concerning for evolving pneumonia. Patient has mild leukocytosis. Started on IV ceftriaxone and azithromycin. Triple PCR for SARS-CoV-2, flu and RSV are negative 07/17: Patient discharged on 5 more days of antibiotic Levaquin. 2. Acute Exacerbation of asthma/COPD with history of chronic cigarette smoker and cannabis abuse - Continue IV solumedrol begun in the ER and wean as tolerated. Also continue as needed/scheduled nebulizers and inhalers. Tobacco and cannabis cessation were strongly encouraged with nicotine patch offered to control cravings. Nicotine patch ordered. 07/17: Patient discharged on burst therapy of prednisone, Mucinex DM and pantoprazole. 3. Near syncopal event with Generalized Weakness, Fatigue and increasing back pain with chronic OA: 2D echo is ordered. Dizziness resolved 07/17: Echo is not done yet. Patient can do as an outpatient. She wants to go home Dysphagia: Patient states she has dysphagia for some time and gets 5 times a week mainly with the solid diet. She does not have dysphagia with liquid or water. Patient going for EGD. Impressions : - Benign-appearing esophageal stenoses. Dilated. Biopsied. Treated with argon beam coagulation. - Medium-sized hiatal hernia. - No gross lesions in the duodenal bulb. Recommendations : - - Repeat upper endoscopy in 2 months for surveillance. - Pantoprazole 40 mg p.o. twice daily - Carafate 1 g 3 times a day - Smoking cessation - Temporary esophageal stent placement to keep the stricture open 4. Incidental abnormal CT finding of degenerative fibroid or nonspecific endometrial or myometrial process: I think this pelvic ultrasound can be done as an outpatient this is not the presenting symptom that patient came with but incidental finding. 5. Hypokalemia of 3.2 mmol/L present on admission - Give supplemental KCl and then recheck level in a.m. to confirm replacement. 6. Suspected esophageal stenosis with patient having severe dysphagia feeling food getting stuck penitentiary down her esophagus and forcing herself to vomit - Give mechanical soft diet to see if patient will be better able tolerate oral intake as gastroenterology is not available until Wednesday. Therefore, we will consult gastroenterology to see this patient for recommendations regarding EGD this admission. 7. Overweight; with BMI of 28.4 this admission with HELIO - Weight loss will be recommended. Check TSH. This complicates her case and may hamper recovery. 7. Essential hypertension - Maintain home regimen plus give prn IV Hydralazine for systolic blood pressure > 160 mmHg. 8. Hyperlipidemia - Check Lipid Profile this admission with patient currently not on pharmacologic therapy. 9. History of EtOH abuse; patient denies actively drinking at this time - Noted. We will watch closely in case of signs or symptoms of alcohol withdrawal. 10. Chronic seizure, pulmonary hypertension, history of PE, GERD/reflux esophagitis and depression: No active issues. Patient not on any medication for this disease. DVT prophylaxis - Lovenox 40 mg sq daily plus SCD's. MEDICATIONS: Many patients have questions or concerns about their medications once they are home. Were you prescribed any new medications? If yes, what are those medications? Prednisone 40 mg daily x 5 days, Mucinex DM BID x 7 days, Nicotine 14 mg patches once daily x 30 days, Protonix 40 mg daily x 30 days, and Levofloxacin 500 mg daily x 5 days. Were you told to hold any medications? No Were any of your medications discontinued? No Do you have any questions about getting or taking your medications? No Your discharge instructions/After visit Summary (AVS) are important in guiding you through the recovery process. Is there anything I might help you understand? No Do you have all the necessary equipment and supplies at home? Yes Medical records from recent hospitalization: Placed for provider to review documented in this encounter [facility] 07-18-2024 Note Patient Outreach (FA MPWS) SAVANNAH IRVIN ([id number]) 1965 F Date Time Provider Department 07/18/24 ELENA LOPEZ During your visit today, we recorded the following information about you: Elena Lopez MA 07/18/2024 9:38 AM Signed TRANSITION CARE MANAGEMENT (TCM) INITIAL CONTACT Bed Setter Outreach Provider Action/I: 7 Day TCM Pt is feeling ok. Needs a refill on nebulizer solution and inhaler to [facility]. She states he has a sore throat, asking if there is anything she can take for that, sprays, etc? Doesn't have any money to buy anything OTC. Schedule to see Amber Mujica in 1 month. Initial contact with patient post discharge, spoke to patient. Patient identified by name and . TRANSITION CARE MANAGEMENT INITIAL OUTREACH DOCUMENTATION: No data to display SUMMARY: -Pt discharged from [facility] on 07/17/24. -Admitted for: dysphagia Do you have a hospital follow up appointment with your PCP? Appointment on 07/24/24 with PCP. Yes. Remind patient of appointment date, time, and location. If not within 14 calendar days of discharge - please reschedule accordingly. Below copied from [email or web address]: Chief Complaint: Dizziness Informant: patient Narrative Narrative: Patient is a 59-year-old female with history of COPD, tobacco use, pulmonary hypertension, hypertension, hyperlipidemia and kidney stones presenting with generalized malaise, dizziness, nausea, cough, shortness of breath and back pain. Patient states that she has not been feeling good all day is been more fatigued. She tried to go downstairs for the got dizzy feeling she was going to pass out. She did she has had some increased back pain for the past week with the right worse than the left. She states is her kidneys at her. She also for the past 1 is an intermittent sharp pains in her left lower quadrant. She denies any urinary symptoms such as dysuria or hematuria. She denies any change in her bowel movements but notes it has been a couple days since she had a bowel movement. She has been passing gas. She denies any chest pain or tightness but does feel more short of breath and feels like she is been wheezing more. She is been coughing and nothing comes up but she feels like there is mucus that needs to come out. She denies any URI symptoms. She notes her daughter was sick over [place] and she was around her. She does report a mild headache. No fevers reported. Does not take anything for symptoms prior to arrival. Does take a daily inhaler but no other medications. No other complaints or concerns reported at this time. Medical decision making narrative: Patient evaluated for near syncope today with worsening shortness of breath and cough as well as increased back pain for the past week. Differential includes influenza, kidney stone, pyelonephritis, pulmonary emboli, pneumonia, viral syndrome, COPD exacerbation, ACS, colitis and urinary tract infection. Patient is given DuoNeb treatment in the ER. She has some mild improvement. She is given initially Toradol for her pain and IV fluids. On repeat evaluation she continues to have pain and is given 1 dose of morphine in the emergency room. Initial chest x-ray viewed by myself does not show any acute process. Radiology interpreted the COPD/emphysematous changes with interstitial lung disease. Given her continued pain decision made to obtain a CT of the abdomen pelvis will also perform a CTA of the chest with PE study for further evaluation of her respiratory complaints. Lab work shows a mild leukocytosis of 11.4 but otherwise largely normal CBC. High since he troponin normal. Patient has mild hyponatremia sodium 134 and hypokalemia potassium of 3.2. Magnesium however is normal. Remainder of CMP largely normal. CK level obtained given her body aches but is normal with a level of 44. Urinalysis is not consistent with UTI. CT a of the chest does not show PE but does show crescent-shaped groundglass edema with crowding of the bronchovascular structures present to the medial basilar segment of the right lower lobe likely representing developing volume overload or pneumonia. There is also incidental finding of arterial branch focal aneurysm however radiology felt that it is not significant. I suspect patient might be developing pneumonia which fits her clinical picture and that is why she is having generalized malaise and increased respiratory symptoms. She clinically does not appear to have fluid overload. CT abdomen pelvis shows multiple chronic findings with no acute process. Patient is ambulated and dropped to 88%. Does not feel comfortable going home. Will be admitted for IV antibiotics, IV steroids, breathing treatments and further monitoring. Case is discussed with hospitalist, Dr. Hartmann. 07/16/24 01:37 Consult: Gastroenterology Routine (more content not included)... [facility] 07-17-2024 Note [facility] Medical Records Department [address] [place] [address] Discharge Summary 07/17/24 1217 MR#: [id number] Acct: [id number] Name: SAVANNAH IRVIN Rep #: [id number] : 1965 59 From: Jama Bustamante MD PCP: Dr. Ivette Welsh MD Status:ADM IN Location: [place] [address] Providers Date of Admission: 07/15/24 Date of Discharge: 07/17/24 Primary Care Physician: Dr. Ivette Welsh MD Consultations 07/16/24 01:37 Consult: Gastroenterology Routine Consulting Provider: [facility] Reason for Consult: suspected esophageal stenosis EMERGENT Consult: No MD Notified: Yes Date Notified: 07/16/24 Time Notified: 06:48 Method of Notification: Text Reason For Visit: PNA, AE ASTHMA/COPD, RESP INSUFF NEAR SYNCOPE Diagnosis Discharge Diagnosis (1) Dysphagia: Status: Inactive Code(s): R13.10 - Dysphagia, unspecified Plan 59 old female was admitted with generalized malaise, nausea, dizziness, feeling that she is going to pass out but did not pass out, cough, SOB, weakness and back pain for 1 day. She has increased back pain for past 1 week, right more than left. 1. Dyspnea from possible evolving pneumonia: Patient is being admitted in PCU. CTA chest showed crescent shaped groundglass edema with crowding of bronchovascular structures in the medial basilar segment of right lower lobe concerning for evolving pneumonia. Patient has mild leukocytosis. Started on IV ceftriaxone and azithromycin. Triple PCR for SARS-CoV-2, flu and RSV are negative 07/17: Patient discharged on 5 more days of antibiotic Levaquin. 2. Acute Exacerbation of asthma/COPD with history of chronic cigarette smoker and cannabis abuse - Continue IV solumedrol begun in the ER and wean as tolerated. Also continue as needed/scheduled nebulizers and inhalers. Tobacco and cannabis cessation were strongly encouraged with nicotine patch offered to control cravings. Nicotine patch ordered. 07/17: Patient discharged on burst therapy of prednisone, Mucinex DM and pantoprazole. 3. Near syncopal event with Generalized Weakness, Fatigue and increasing back pain with chronic OA: 2D echo is ordered. Dizziness resolved 07/17: Echo is done but not reported yet. She wants to go home Dysphagia: Patient states she has dysphagia for some time and gets 5 times a week mainly with the solid diet. She does not have dysphagia with liquid or water. Patient going for EGD. Impressions : - Benign-appearing esophageal stenoses. Dilated. Biopsied. Treated with argon beam coagulation. - Medium-sized hiatal hernia. - No gross lesions in the duodenal bulb. Recommendations : - - Repeat upper endoscopy in 2 months for surveillance. - Pantoprazole 40 mg p.o. twice daily - Carafate 1 g 3 times a day - Smoking cessation - Temporary esophageal stent placement to keep the stricture open 4. Incidental abnormal CT finding of degenerative fibroid or nonspecific endometrial or myometrial process: I think this pelvic ultrasound can be done as an outpatient this is not the presenting symptom that patient came with but incidental finding. 5. Hypokalemia of 3.2 mmol/L present on admission - Give supplemental KCl and then recheck level in a.m. to confirm replacement. 6. Suspected esophageal stenosis with patient having severe dysphagia feeling food getting stuck penitentiary down her esophagus and forcing herself to vomit - Give mechanical soft diet to see if patient will be better able tolerate oral intake as gastroenterology is not available until Wednesday. Therefore, we will consult gastroenterology to see this patient for recommendations regarding EGD this admission. 7. Overweight; with BMI of 28.4 this admission with HELIO - Weight loss will be recommended. Check TSH. This complicates her case and may hamper recovery. 7. Essential hypertension - Maintain home regimen plus give prn IV Hydralazine for systolic blood pressure > 160 mmHg. 8. Hyperlipidemia - Check Lipid Profile this admission with patient currently not on pharmacologic therapy. 9. History of EtOH abuse; patient denies actively drinking at this time - Noted. We will watch closely in case of signs or symptoms of alcohol withdrawal. 10. Chronic seizure, pulmonary hypertension, history of PE, GERD/reflux esophagitis and depression: No active issues. Patient not on any medication for this disease. DVT prophylaxis - Lovenox 40 mg sq daily plus SCD's. Discharge summary Medications at Discharge Home Medications albuterol sulfate 2.5 mg/3 mL (0.083 %) solution for nebulization 2.5 mg (3 mL) inhalation Q4H PRN #25 vials 10/20/17 albuterol sulfate 90 mcg/actuation aerosol inhaler (Ventolin HFA) 1 - 2 puff inhalation PRN PRN Sob /Or Wheezing 05/18/18 epinephrine 0.3 mg/0.3 mL injection, auto-injector 0.3 mg (0.3 mL) IM X1 ##1 01/21/19 dextromethorphan-guaife (more content not included)... [facility] 07-12-2024 Hospital Discharg e instructions Patient Education 07/12/2024 20:48:49 Allergic Reaction, Other (General) General Allergic Reactions An allergic reaction is a set of symptoms caused by an allergen. An allergen is something that causes a person s immune system to react. When a person comes in contact with an allergen, it causes the body to release chemicals. These include the chemical histamine. Histamine causes swelling and itching. It may affect the entire body. This is called a general allergic reaction. Often symptoms affect only 1 part of the body. This is called a local allergic reaction. You are having an allergic reaction. Almost anything can cause one. Different people are allergic to different things. It is usually something that you ate or swallowed, came into contact with by getting or putting it on your skin or clothes, or something you breathed in the air. This can be very annoying and sometimes scary. Most of us think of allergic reactions when we have a rash or itchy skin. Symptoms can include: Itching of the eyes, nose, and roof of the mouth Runny or stuffy nose Watery eyes Sneezing or coughing A blocked feeling in the ear Red, itchy rash called hives Red and purple spots Rash, redness, welts, blisters Itching, burning, stinging, pain Dry, flaky, cracking, scaly skin Severe symptoms include: Swelling of the face, lips, or other parts of the body Hoarse voice Trouble swallowing, feeling like your throat is closing Trouble breathing, wheezing Nausea, vomiting, diarrhea, stomach cramps Feeling faint or lightheaded, rapid heart rate Sometimes the cause may be obvious. But there are so many things that can cause a reaction that you may not be able to figure out. The most important things to help find your allergen are: Remembering when it started What you were doing at the time or just before that Any activities you were involved in Any new products or contacts Below are some common causes. But remember that almost anything can cause a reaction. You may not even be aware that you came into contact with one of these things: Dust, mold, pollen Plants (common ones are poison jurgen and poison oak, but there are many others) Animals Foods such as shrimp, shellfish, peanuts, milk products, gluten, and eggs. Also food colorings, flavorings, and additives. Insect bites or stings such as bees, mosquitos, fleas, ticks Medicines such as penicillin, sulfa medicines, amoxicillin, aspirin, and ibuprofen. But any medicine can cause a reaction. Jewelry such as nickel or gold. This can be new, or something you ve worn for a while, including zippers and buttons. Latex such as in gloves, clothes, toys, balloons, or some tapes. Some people allergic to latex may also have problems with foods like bananas, avocados, kiwi, papaya, or chestnuts. Lotions, perfumes, cosmetics, soaps, shampoos, skincare products, nail products Chemicals or dyes in clothing, linen, mechanical systems designer, hair dyes, soaps, iodine Many viruses and common colds can cause a rash that is not an allergic reaction. Sometimes it is hard to tell the difference between allergies, sensitivity, or an intolerance to something. This is especially true with food. Many things can cause diarrhea, vomiting, stomach cramps, and skin irritation. Home care The goal of treatment is to help relieve the symptoms and get you feeling better. The rash will usually fade over several days. But it can sometimes last a couple of weeks. Over the next couple of days, there may be times when it is gets a little worse, and then better again. Here are some things to do: If you know what you are allergic to, stay away from it. Future reactions could be worse than this one. Avoid tight clothing and anything that heats up your skin (hot showers or baths, direct sunlight). Heat will make itching worse. An ice pack will relieve local areas of intense itching and redness. To make an ice pack, put ice cubes in a plastic bag that seals at the top. Wrap it in a thin, clean towel. Don t put the ice directly on the skin because it can damage the skin. Oral diphenhydramine is an [id number] antihistamine sold at pharmacy and grocery stores. Unless a prescription antihistamine was given, diphenhydramine may be used to reduce itching if large areas of the skin are involved. It may make you sleepy. So be careful using it in the daytime or when going to school, working, or driving. Note: Don t use diphenhydramine if you have glaucoma or if you are a man with trouble urinating due to an enlarged prostate. There are other antihistamines that won t make you so sleepy. These are good choices for daytime use. Ask your pharmacist for suggestions. Don t use diphenhydramine cream on your skin. It can cause a further reaction in some people. To help prevent an infection, don't scratch the affected area. Scratching may worsen the reaction and damage your skin. It can also lead to an infection. Always check the affected for signs of an infection. Call your healthcare provider and ask what you can use to help decrease the itching. To decrease allergic reactions, try the following: Use heat-steam to clean your home Use high-efficiency particulate (HEPA) vacuums and filters Stay away from food and pet triggers Kill any cockroaches Clean your house often Follow-up care Follow up with your healthcare provider, or as advised. If you had a severe reaction today, or if you have had several mild to medium allergic reactions in the past, ask your provider about allergy testing. This can help you find out what you are allergic to. If your reaction included dizziness, fainting, or trouble breathing or swallowing, ask your provider about carrying auto-injectable epinephrine. Call 911 Call 911 if any of these occur: Trouble breathing or swallowing, wheezing Cool, moist, pale skin Shortness of breath Hoarse voice or trouble speaking Confused Very drowsy or trouble awakening Fainting or loss of consciousness Rapid heart rate Feeling of dizziness or weakness or a sudden drop in blood pressure Feeling of doom Feeling lightheaded Severe nausea or vomiting, or diarrhea Seizure Swelling in the face, eyelids, lips, mouth, throat or tongue Drooling When to seek medical advice Call your healthcare provider right away if any of these occur: Spreading areas of itching, redness or swelling Nausea or stomach cramps or abdominal pain Continuing or recurring symptoms Spreading areas of redness, swelling, or itching Signs of infection at the affected site: oSpreading redness oIncreased pain or swelling oFluid or colored drainage from the site oFever of 100.4 F (38 C) or above lasting for 24 to 48 hours, or as directed by your provider [id number] [employer]. [address] [place] [address]. All rights reserved. This information is not intended as a substitute for professional medical care. Always follow your healthcare professional's instructions. Follow Up Care 07/12/2024 19:13:01 With:KENISHA ABBASI III, MD Address: [address] [place] [address] [phone] When:2-4 days [facility] 07-12-2024 Emergency department Discharge summary Discharge Instructions Thank you for allowing [facility] to assist you with your healthcare needs. The following is important discharge information regarding your hospital visit. Diagnosis from Today's Visit Allergic reaction What to Do Next Instructions from Your Care Team No qualifying data available. Post Acute Orders No qualifying data available. You Need to Schedule the Following Appointments Follow Up with KENISHA ABBASI III, MD When:Within 2-4 days Where:[facility] [place], [place] [phone] Allergies Peanuts anaphylaxis Medications Please ask your primary doctor or pharmacist before taking any other medication not listed, including over the counter drugs, herbal medications, vitamins and or supplements as they may interact with your home medications. What How Much When Instructions Last Dose Unchanged albuterol (Ventolin 90 mcg/ inh inhalation aerosol) 2 puff(s) by inhalation Every 4 hours as needed for Wheezing Unchanged EPINEPHrine (EpiPen 2-Ruchi 0.3 mg injectable kit) 1 Each Intramuscular As Directed as needed for allergic reaction Unchanged EPINEPHrine (EpiPen 2-Ruchi) 0.3 Milligram Once as needed for as needed for anaphylaxis Unchanged famotidine (Pepcid 20 mg oral tablet) 1 tab(s) by mouth Every day Duration: 7 Days Unchanged formoterol-mometasone (Dulera 200 mcg-5 mcg/ inh Metered Dose Inhaler) 2 puff(s) by inhalation Two (2) times a day Unchanged guaiFENesin (Mucinex) 600 Milligram by mouth Two (2) times a day as needed for Congestion Unchanged lansoprazole (Prevacid 15 mg oral delayed release capsule (NF)) 1 cap by mouth Every day Unchanged levETIRAcetam (Keppra 500 mg oral tablet) 1 tab(s) by mouth Two (2) times a day Unchanged lisinopril (lisinopril 20 mg oral tablet) 1 tab(s) by mouth Once a day Unchanged metoprolol (Lopressor 25mg--USE metoprolol tartrate 25 mg oral tablet) 1 tab(s) by mouth Two (2) times a day Unchanged omeprazole (NF) (PriLOSEC 40 mg oral delayed release capsule (NF)) 1 cap by mouth Once a day before a meal Unchanged pantoprazole (pantoprazole 40 mg oral enteric coated tablet) 1 tab(s) by mouth Once a day Unchanged predniSONE (predniSONE 50 mg oral tablet) 1 tab(s) by mouth Every day Duration: 7 Days Please take this list to your next doctor s visit. Bring all medications you take, including over the counter medications, herbals and other supplements with you to your doctor s visit. Patients and families are reminded to discard old lists and to update any records with all medication providers or retail pharmacies. Education Materials General Allergic Reactions An allergic reaction is a set of symptoms caused by an allergen. An allergen is something that causes a person s immune system to react. When a person comes in contact with an allergen, it causes the body to release chemicals. These include the chemical histamine. Histamine causes swelling and itching. It may affect the entire body. This is called a general allergic reaction. Often symptoms affect only 1 part of the body. This is called a local allergic reaction. You are having an allergic reaction. Almost anything can cause one. Different people are allergic to different things. It is usually something that you ate or swallowed, came into contact with by getting or putting it on your skin or clothes, or something you breathed in the air. This can be very annoying and sometimes scary. Most of us think of allergic reactions when we have a rash or itchy skin. Symptoms can include: Itching of the eyes, nose, and roof of the mouth Runny or stuffy nose Watery eyes Sneezing or coughing A blocked feeling in the ear Red, itchy rash called hives Red and purple spots Rash, redness, welts, blisters Itching, burning, stinging, pain Dry, flaky, cracking, scaly skin Severe symptoms include: Swelling of the face, lips, or other parts of the body Hoarse voice Trouble swallowing, feeling like your throat is closing Trouble breathing, wheezing Nausea, vomiting, diarrhea, stomach cramps Feeling faint or lightheaded, rapid heart rate Sometimes the cause may be obvious. But there are so many things that can cause a reaction that you may not be able to figure out. The most important things to help find your allergen are: Remembering when it started What you were doing at the time or just before that Any activities you were involved in Any new products or contacts Below are some common causes. But remember that almost anything can cause a reaction. You may not even be aware that you came into contact with one of these things: Dust, mold, pollen Plants (common ones are poison jurgen and poison oak, but there are many others) Animals Foods such as shrimp, shellfish, peanuts, milk products, gluten, and eggs. Also food colorings, flavorings, and additives. Insect bites or stings such as bees, mosquitos, fleas, ticks Medicines such as penicillin, sulfa medicines, amoxicillin, aspirin, and ibuprofen. But any medicine can cause a reaction. Jewelry such as nickel or gold. This can be new, or something you ve worn for a while, including zippers and buttons. Latex such as in gloves, clothes, toys, balloons, or some tapes. Some people allergic to latex may also have problems with foods like bananas, avocados, kiwi, papaya, or chestnuts. Lotions, perfumes, cosmetics, soaps, shampoos, skincare products, nail products Chemicals or dyes in clothing, linen, mechanical systems designer, hair dyes, soaps, iodine Many viruses and common colds can cause a rash that is not an allergic reaction. Sometimes it is hard to tell the difference between allergies, sensitivity, or an intolerance to something. This is especially true with food. Many things can cause diarrhea, vomiting, stomach cramps, and skin irritation. Home care The goal of treatment is to help relieve the symptoms and get you feeling better. The rash will usually fade over several days. But it can sometimes last a couple of weeks. Over the next couple of days, there may be times when it is gets a little worse, and then better again. Here are some things to do: If you know what you are allergic to, stay away from it. Future reactions could be worse than this one. Avoid tight clothing and anything that heats up your skin (hot showers or baths, direct sunlight). Heat will make itching worse. An ice pack will relieve local areas of intense itching and redness. To make an ice pack, put ice cubes in a plastic bag that seals at the top. Wrap it in a thin, clean towel. Don t put the ice directly on the skin because it can damage the skin. Oral diphenhydramine is an rleu-xxu-yafqjhp antihistamine sold at pharmacy and grocery stores. Unless a prescription antihistamine was given, diphenhydramine may be used to reduce itching if large areas of the skin are involved. It may make you sleepy. So be careful using it in the daytime or when going to school, working, or driving. Note: Don t use diphenhydramine if you have glaucoma or if you are a man with trouble urinating due to an enlarged prostate. There are other antihistamines that won t make you so sleepy. These are good choices for daytime use. Ask your pharmacist for suggestions. Don t use diphenhydramine cream on your skin. It can cause a further reaction in some people. To help prevent an infection, don't scratch the affected area. Scratching may worsen the reaction and damage your skin. It can also lead to an infection. Always check the affected for signs of an infection. Call your healthcare provider and ask what you can use to help decrease the itching. To decrease allergic reactions, try the following: Use heat-steam to clean your home Use high-efficiency particulate (HEPA) vacuums and filters Stay away from food and pet triggers Kill any cockroaches Clean your house often Follow-up care Follow up with your healthcare provider, or as advised. If you had a severe reaction today, or if you have had several mild to medium allergic reactions in the past, ask your provider about allergy testing. This can help you find out what you are allergic to. If your reaction included dizziness, fainting, or trouble breathing or swallowing, ask your provider about carrying auto-injectable epinephrine. Call 911 Call 911 if any of these occur: Trouble breathing or swallowing, wheezing Cool, moist, pale skin Shortness of breath Hoarse voice or trouble speaking Confused Very drowsy or trouble awakening Fainting or loss of consciousness Rapid heart rate Feeling of dizziness or weakness or a sudden drop in blood pressure Feeling of doom Feeling lightheaded Severe nausea or vomiting, or diarrhea Seizure Swelling in the face, eyelids, lips, mouth, throat or tongue Drooling When to seek medical advice Call your healthcare provider right away if any of these occur: Spreading areas of itching, redness or swelling Nausea or stomach cramps or abdominal pain Continuing or recurring symptoms Spreading areas of redness, swelling, or itching Signs of infection at the affected site: oSpreading redness oIncreased pain or swelling oFluid or colored drainage from the site oFever of 100.4 F (38 C) or above lasting for 24 to 48 hours, or as directed by your provider [id number] [employer]. [address] [place] [address], [place] [address]. All rights reserved. This information is not intended as a substitute for professional medical care. Always follow your healthcare professional's instructions. Additional Information VACCINATE! IT SAVES LIVES! Members of the community who have not yet received the COVID-19 vaccine and would like to receive it can visit one of [facility] vaccine clinics. There are many vaccine clinic locations within the [facility]. For locations and available times, please visit [email or web address] It is important to note that some COVID mobile vaccine clinics are held outdoors and may be canceled in rainy or stormy conditions. To learn more about pediatric vaccinations (ages 5-11), we invite you to visit the [facility] webpage. [email or web address] [email or web address] To learn more about the COVID-19 vaccine, we invite you to visit the CDC website for a list of frequently asked questions. https://www.cdc.gov/coronavirus/ 2019-ncov/vaccines/faq.html [facility] [employer] [employer] [facility] Patient Portal Access Instructions: Stay connected with your healthcare team and access your personal medical information anytime with the [facility] Patient Portal. If you would like a full copy of your medical records please contact the [facility] Medical Records Department Wednesday through Wednesday between 8a.m. and 4:30p.m. Please follow the directions below to access the portal: 1.Access the email account you provided upon registration to the [facility].2.Look for an invitation email from [facility].3.Open the email and access the invitation link: Accept Invitation to [facility]4.Fill in the required siu to create your account. Sign into [email or web address] with your username and password that you created in the above steps to stay up to date. You can then view a summary of results, a summary of your visits, and the ability to download your summaries to your computer or send the information securely to a physician. Remember that your healthcare information is confidential, so carefully consider who you will allow to register on the [facility] Patient Portal for access to your information. You can also access the [facility] Patient Portal on the [employer] maycol. Simply click on Health Records under Health Data and then click on the [employer] logo. HOW TO SAFELY DISPOSE OF PRESCRIPTION MEDICATIONS Please use one of the following methods to safely dispose of your unused medications. 1.Use a drug disposal kit: the drug disposal pouch allows you to safely discard your old and unused drugs. Ask your nurse to give you one when you are discharged.2.Visit a local take-back location: Many local pharmacies and police departments have programs that collect old and unwanted prescription drugs. Call your local pharmacy or go to http://bit.[employer]Starter/6R4Gp6u to find one close to you.3.Make use of household items: Use cat litter or old coffee grounds to dispose medications if other options are not available. Mix your drugs with these household products, seal them in an airtight container and throw it into the garbage. Call [facility]: [phone] to be sure your drugs can be disposed of in this way. Some medicines may require a different approach.4.Never flush your medications down the toilet. IF YOU HAVE BEEN PRESCRIBED AN OPIOIDS FOR PAIN If you have been prescribed an opioid (such as hydrocodone, oxycodone or morphine), it is critical to understand the possible side effects and risks of opioid pain medications. Even when taken as directed, opioids can have several side effects including: Tolerance, meaning you might need to take more of a medication for the same pain relief. Nausea, vomiting and/or constipation. Sleepiness, dizziness, dry mouth, confusion, depression or itching. Physical dependence, meaning you have withdrawal symptoms when a medication is stopped ? this can develop within a few days. KNOW YOUR RESPONSIBILITIES It is important to know exactly how much and how often to take the opioid pain medications you are prescribed. Never take opioids in higher amounts or more often than prescribed. Do not combine opioids with alcohol or other drugs that cause drowsiness, such as benzodiazepines, also known as benzos, including diazepam and alprazolam, muscle relaxants or sleep aids. Never sell or share prescription opioids. This is illegal. Store opioids in a secure place and out of reach of others (including children, family, friends and visitors). The last page(s) of this document has been signed and retained as a CHART COPY Signatures Patient Education Materials Allergic Reaction, Other (General) Medication Leaflets My discharge plan and instructions have been reviewed and explained to me and IBRANDEE JUDY A understand my current condition and have read and understand these discharge instructions. I have received a written copy of the plan/instructions. If I have questions, I am aware that I should contact my doctor. 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 The following is important discharge information regarding your hospital visit. Diagnosis from Today's Visit Allergic reaction What to Do Next Instructions from Your Care Team No qualifying data available. Post Acute Orders No qualifying data available. You Need to Schedule the Following Appointments Follow Up with KENISHA ABBASI III, MD When:Within 2-4 days Where:[address] [place] [id number]- [phone] Allergies Peanuts anaphylaxis Medications Please ask your primary doctor or pharmacist before taking any other medication not listed, including over the counter drugs, herbal medications, vitamins and or supplements as they may interact with your home medications. What How Much When Instructions Last Dose Unchanged albuterol (Ventolin 90 mcg/ inh inhalation aerosol) 2 puff(s) by inhalation Every 4 hours as needed for Wheezing Unchanged EPINEPHrine (EpiPen 2-Ruchi 0.3 mg injectable kit) 1 Each Intramuscular As Directed as needed for allergic reaction Unchanged EPINEPHrine (EpiPen 2-Ruchi) 0.3 Milligram Once as needed for as needed for anaphylaxis Unchanged famotidine (Pepcid 20 mg oral tablet) 1 tab(s) by mouth Every day Duration: 7 Days Unchanged formoterol-mometasone (Dulera 200 mcg-5 mcg/ inh Metered Dose Inhaler) 2 puff(s) by inhalation Two (2) times a day Unchanged guaiFENesin (Mucinex) 600 Milligram by mouth Two (2) times a day as needed for Congestion Unchanged lansoprazole (Prevacid 15 mg oral delayed release capsule (NF)) 1 cap by mouth Every day Unchanged levETIRAcetam (Keppra 500 mg oral tablet) 1 tab(s) by mouth Two (2) times a day Unchanged lisinopril (lisinopril 20 mg oral tablet) 1 tab(s) by mouth Once a day Unchanged metoprolol (Lopressor 25mg--USE metoprolol tartrate 25 mg oral tablet) 1 tab(s) by mouth Two (2) times a day Unchanged omeprazole (NF) (PriLOSEC 40 mg oral delayed release capsule (NF)) 1 cap by mouth Once a day before a meal Unchanged pantoprazole (pantoprazole 40 mg oral enteric coated tablet) 1 tab(s) by mouth Once a day Unchanged predniSONE (predniSONE 50 mg oral tablet) 1 tab(s) by mouth Every day Duration: 7 Days Please take this list to your next doctor s visit. Bring all medications you take, including over the counter medications, herbals and other supplements with you to your doctor s visit. Patients and families are reminded to discard old lists and to update any records with all medication providers or retail pharmacies. Education Materials General Allergic Reactions An allergic reaction is a set of symptoms caused by an allergen. An allergen is something that causes a person s immune system to react. When a person comes in contact with an allergen, it causes the body to release chemicals. These include the chemical histamine. Histamine causes swelling and itching. It may affect the entire body. This is called a general allergic reaction. Often symptoms affect only 1 part of the body. This is called a local allergic reaction. You are having an allergic reaction. Almost anything can cause one. Different people are allergic to different things. It is usually something that you ate or swallowed, came into contact with by getting or putting it on your skin or clothes, or something you breathed in the air. This can be very annoying and sometimes scary. Most of us think of allergic reactions when we have a rash or itchy skin. Symptoms can include: Itching of the eyes, nose, and roof of the mouth Runny or stuffy nose Watery eyes Sneezing or coughing A blocked feeling in the ear Red, itchy rash called hives Red and purple spots Rash, redness, welts, blisters Itching, burning, stinging, pain Dry, flaky, cracking, scaly skin Severe symptoms include: Swelling of the face, lips, or other parts of the body Hoarse voice Trouble swallowing, feeling like your throat is closing Trouble breathing, wheezing Nausea, vomiting, diarrhea, stomach cramps Feeling faint or lightheaded, rapid heart rate Sometimes the cause may be obvious. But there are so many things that can cause a reaction that you may not be able to figure out. The most important things to help find your allergen are: Remembering when it started What you were doing at the time or just before that Any activities you were involved in Any new products or contacts Below are some common causes. But remember that almost anything can cause a reaction. You may not even be aware that you came into contact with one of these things: Dust, mold, pollen Plants (common ones are poison jurgen and poison oak, but there are many others) Animals Foods such as shrimp, shellfish, peanuts, milk products, gluten, and eggs. Also food colorings, flavorings, and additives. Insect bites or stings such as bees, mosquitos, fleas, ticks Medicines such as penicillin, sulfa medicines, amoxicillin, aspirin, and ibuprofen. But any medicine can cause a reaction. Jewelry such as nickel or gold. This can be new, or something you ve worn for a while, including zippers and buttons. Latex such as in gloves, clothes, toys, balloons, or some tapes. Some people allergic to latex may also have problems with foods like bananas, avocados, kiwi, papaya, or chestnuts. Lotions, perfumes, cosmetics, soaps, shampoos, skincare products, nail products Chemicals or dyes in clothing, linen, mechanical systems designer, hair dyes, soaps, iodine Many viruses and common colds can cause a rash that is not an allergic reaction. Sometimes it is hard to tell the difference between allergies, sensitivity, or an intolerance to something. This is especially true with food. Many things can cause diarrhea, vomiting, stomach cramps, and skin irritation. Home care The goal of treatment is to help relieve the symptoms and get you feeling better. The rash will usually fade over several days. But it can sometimes last a couple of weeks. Over the next couple of days, there may be times when it is gets a little worse, and then better again. Here are some things to do: If you know what you are allergic to, stay away from it. Future reactions could be worse than this one. Avoid tight clothing and anything that heats up your skin (hot showers or baths, direct sunlight). Heat will make itching worse. An ice pack will relieve local areas of intense itching and redness. To make an ice pack, put ice cubes in a plastic bag that seals at the top. Wrap it in a thin, clean towel. Don t put the ice directly on the skin because it can damage the skin. Oral diphenhydramine is an [id number] antihistamine sold at pharmacy and grocery stores. Unless a prescription antihistamine was given, diphenhydramine may be used to reduce itching if large areas of the skin are involved. It may make you sleepy. So be careful using it in the daytime or when going to school, working, or driving. Note: Don t use diphenhydramine if you have glaucoma or if you are a man with trouble urinating due to an enlarged prostate. There are other antihistamines that won t make you so sleepy. These are good choices for daytime use. Ask your pharmacist for suggestions. Don t use diphenhydramine cream on your skin. It can cause a further reaction in some people. To help prevent an infection, don't scratch the affected area. Scratching may worsen the reaction and damage your skin. It can also lead to an infection. Always check the affected for signs of an infection. Call your healthcare provider and ask what you can use to help decrease the itching. To decrease allergic reactions, try the following: Use heat-steam to clean your home Use high-efficiency particulate (HEPA) vacuums and filters Stay away from food and pet triggers Kill any cockroaches Clean your house often Follow-up care Follow up with your healthcare provider, or as advised. If you had a severe reaction today, or if you have had several mild to medium allergic reactions in the past, ask your provider about allergy testing. This can help you find out what you are allergic to. If your reaction included dizziness, fainting, or trouble breathing or swallowing, ask your provider about carrying auto-injectable epinephrine. Call 911 Call 911 if any of these occur: Trouble breathing or swallowing, wheezing Cool, moist, pale skin Shortness of breath Hoarse voice or trouble speaking Confused Very drowsy or trouble awakening Fainting or loss of consciousness Rapid heart rate Feeling of dizziness or weakness or a sudden drop in blood pressure Feeling of doom Feeling lightheaded Severe nausea or vomiting, or diarrhea Seizure Swelling in the face, eyelids, lips, mouth, throat or tongue Drooling When to seek medical advice Call your healthcare provider right away if any of these occur: Spreading areas of itching, redness or swelling Nausea or stomach cramps or abdominal pain Continuing or recurring symptoms Spreading areas of redness, swelling, or itching Signs of infection at the affected site: oSpreading redness oIncreased pain or swelling oFluid or colored drainage from the site oFever of 100.4 F (38 C) or above lasting for 24 to 48 hours, or as directed by your provider [id number] [employer]. [address] [place] [address], [place] [address]. All rights reserved. This information is not intended as a substitute for professional medical care. Always follow your healthcare professional's instructions. Additional Information VACCINATE! IT SAVES LIVES! Members of the community who have not yet received the COVID-19 vaccine and would like to receive it can visit one of [facility] vaccine clinics. There are many vaccine clinic locations within the [facility]. For locations and available times, please visit [email or web address] [email or web address] It is important to note that some COVID mobile vaccine clinics are held outdoors and may be canceled in rainy or stormy conditions. To learn more about pediatric vaccinations (ages 5-11), we invite you to visit the [facility] webpage. [email or web address]://www.[email or web address]/p [email or web address]-[email or web address]-Freq ymvfwf-Wnyqa-Mpkafvsuw.html To learn more about the COVID-19 vaccine, we invite you to visit the CDC website for a list of frequently asked questions. https://www.cdc.gov/coronavirus/ 2019-ncov/vaccines/faq.html [facility] Patient Portal Access Instructions: Stay connected with your healthcare team and access your personal medical information anytime with the [facility] Patient Portal. If you would like a full copy of your medical records please contact the [facility] Medical Records Department Wednesday through Wednesday between 8a.m. and 4:30p.m. Please follow the directions below to access the portal: 1.Access the email account you provided upon registration to the hospital.2.Look for an invitation email from [facility].3.Open the email and access the invitation link: Accept Invitation to [facility]4.Fill in the required siu to create your account. Sign into [email or web address] with your username and password that you created in the above steps to stay up to date. You can then view a summary of results, a summary of your visits, and the ability to download your summaries to your computer or send the information securely to a physician. Remember that your healthcare information is confidential, so carefully consider who you will allow to register on the [facility] Patient Portal for access to your information. You can also access the [facility] Patient Portal on the [employer] maycol. Simply click on Health Records under Health Data and then click on the [employer] logo. HOW TO SAFELY DISPOSE OF PRESCRIPTION MEDICATIONS Please use one of the following methods to safely dispose of your unused medications. 1.Use a drug disposal kit: the drug disposal pouch allows you to safely discard your old and unused drugs. Ask your nurse to give you one when you are discharged.2.Visit a local take-back location: Many local pharmacies and police departments have programs that collect old and unwanted prescription drugs. Call your local pharmacy or go to [email or web address] to find one close to you.3.Make use of household items: Use cat litter or old coffee grounds to dispose medications if other options are not available. Mix your drugs with these household products, seal them in an airtight container and throw it into the garbage. Call [facility]: [phone] to be sure your drugs can be disposed of in this way. Some medicines may require a different approach.4.Never flush your medications down the toilet. IF YOU HAVE BEEN PRESCRIBED AN OPIOIDS FOR PAIN If you have been prescribed an opioid (such as hydrocodone, oxycodone or morphine), it is critical to understand the possible side effects and risks of opioid pain medications. Even when taken as directed, opioids can have several side effects including: Tolerance, meaning you might need to take more of a medication for the same pain relief. Nausea, vomiting and/or constipation. Sleepiness, dizziness, dry mouth, confusion, depression or itching. Physical dependence, meaning you have withdrawal symptoms when a medication is stopped ? this can develop within a few days. KNOW YOUR RESPONSIBILITIES It is important to know exactly how much and how often to take the opioid pain medications you are prescribed. Never take opioids in higher amounts or more often than prescribed. Do not combine opioids with alcohol or other drugs that cause drowsiness, such as benzodiazepines, also known as benzos, including diazepam and alprazolam, muscle relaxants or sleep aids. Never sell or share prescription opioids. This is illegal. Store opioids in a secure place and out of reach of others (including children, family, friends and visitors). The last page(s) of this document has been signed and retained as a CHART COPY Signatures Patient Education Materials Allergic Reaction, Other (General) Medication Leaflets My discharge plan and instructions have been reviewed and explained to me and I,SAVANNAH IRVIN understand my current condition and have read and understand these discharge instructions. I have received a written copy of the plan/instructions. If I have questions, I am aware that I should contact my doctor. Patient/Bulk Pallet Builder Signature: Date/Time: Relationship to Patient: Witness Name/Signature: Date/Time: [facility] 07-05-2024 Note HNO ID: [id number] Author: IDALIA MURRIETA MA Service: ? Author Type: Bed Setter Type: Progress Notes Filed: 07/05/2024 14:00 Note Text: POPULATION HEALTH NAVIGATION OUTREACH Action/Miladis Galindo [place] Discuss/Due for: Medicare Wellness, Mammogram, Influenza Vaccination, BP Control HCC Score: .44149 Outcome: 1st attempt - Not Available 2nd attempt - AW-Energy message sent Reason for Outreach Care Gap/HCC or Scheduling Wellness Visits Care Gaps due: Medicare Annual Wellness Visit Breast Cancer Screening Controlling Blood Pressure Flu Vaccine Patient Contacted: Unable or unnecessary to reach patient: Left message HCC related Navigation Signature: Idalia Murrieta MA July 05, 2024 1:58 PM [facility] 07-05-2024 History of Presen t illness Narrative POPULATION HEALTH NAVIGATION OUTREACH Action/Miladis Galindo [place] Discuss/Due for: Medicare Wellness, Mammogram, Influenza Vaccination, BP Control HCC Score: .59624 Outcome: 1st attempt - Not Available 2nd attempt - Risk I/Ot message sent Reason for Outreach Care Gap/HCC or Scheduling Wellness Visits Care Gaps due: Medicare Annual Wellness Visit Breast Cancer Screening Controlling Blood Pressure Flu Vaccine Patient Contacted: Unable or unnecessary to reach patient: Left message HCC related Navigation Signature: Idalia Murrieta MA July 05, 2024 1:58 PM documented in this encounter [facility] 07-05-2024 Note Patient Outreach (NE TNAV) SAVANNAH IRVIN ([id number]) 1965 F Date Time Provider Department 07/05/24 IDALIA MURRIETA During your visit today, we recorded the following information about you: Idalia Murrieta MA 07/05/2024 2:00 PM Signed POPULATION HEALTH NAVIGATION OUTREACH Action/Miladis Galindo [place] Discuss/Due for: Medicare Wellness, Mammogram, Influenza Vaccination, BP Control HCC Score: .71821 Outcome: 1st attempt - Not Available 2nd attempt - MyChart message sent Reason for Outreach Care Gap/HCC or Scheduling Wellness Visits Care Gaps due: Medicare Annual Wellness Visit Breast Cancer Screening Controlling Blood Pressure Flu Vaccine Patient Contacted: Unable or unnecessary to reach patient: Left message HCC related Navigation Signature: Idalia Murrieta MA July 05, 2024 1:58 PM Allergies As of Date: 07/05/2024 Noted Allergy Reaction all nuts [Other] 10/29/2005 10 - Anaphylaxis ARGAN NUT 04/29/2023 10 - Anaphylaxis BRAZIL NUT 04/29/2023 10 - Anaphylaxis CASHEW NUT 04/29/2023 10 - Anaphylaxis HAZELNUT 04/29/2023 10 - Anaphylaxis MACADAMIA NUT OIL 04/29/2023 10 - Anaphylaxis PEANUTS 04/29/2023 10 - Anaphylaxis PECAN NUT 04/29/2023 10 - Anaphylaxis PINE NUT 04/29/2023 10 - Anaphylaxis PISTACHIO NUT 04/29/2023 10 - Anaphylaxis TREE NUT 04/29/2023 10 - Anaphylaxis Date Reviewed: 05/01/2023 Reviewed by: Tara Carr RN - Fully Assessed Reason for Visit: Population Health Navigation Outreach [3910] Cmt: Miladis Ledesma [place] Prescriptions as of 07/05/2024 - albuterol HFA (PROVENTIL HFA, VENTOLIN HFA) 90 mcg/actuation inhaler inhale 2 puffs by mouth and INTO THE LUNGS every 4 hours if needed for wheezing or shortness of breath - EPINEPHrine (EPIPEN) 0.3 mg/0.3 mL auto-injector Use as directed for allergic reaction - pantoprazole DR (PROTONIX) 40 mg tablet Take 1 tablet by mouth daily before breakfast. Take on empty stomach, 1/2 hr before meal. - Nebulizer Accessories misc 1 Each twice daily. New mask for nebulizer - ipratropium-albuterol (DUONEB) 0.5 mg-3 mg(2.5 mg base)/3 mL nebu Inhale 3 mL as instructed every 6 hours as needed (wheezing). Use over 5-15minutes per nebulizer. - Ibuprofen 200 mg cap Take by mouth as directed. - Nebulizer 1 Device four times daily as needed. NEBULIZER FOR HOME USE. DX: pneumonia; asthma J 45.909 J 15.9 - Nebulizer Accessories kit 1 Each four times daily as needed. - Blood Pressure Cuff - Home Use BLOOD PRESSURE CUFF FOR HOME USE. DX: LABILE BLOOD PRESSURE - COMPOUNDED PRESCRIPTION 1 Device once daily. NEBULIZER FOR HOME USE. DX: asthma, mild intermittent J45.20 - + Nebulizer Supplies Nebulizer, Mask, AND O2 Tubing. Use as directed. Problem List As Of Date 07/05/2024 Noted Resolved Asthma [J45.909] Sprain of neck [S13.9XXA] 10/29/2005 09/03/2014 Lateral epicondylitis of elbow [M77.10] 03/09/2006 09/03/2014 Lesion of plantar nerve [G57.60] 03/09/2006 09/03/2014 BENIGN HYPERTENSION [I10] 05/17/2006 Cervicalgia [M54.2] 03/14/2007 09/03/2014 History of cerebral infarction [Z86.73] 12/31/2011 Depression [F32.A] 12/31/2011 07/25/2020 Anaphylactic reaction [T78.2XXA] 12/31/2011 09/03/2014 Chronic bronchitis (HCC) [J42] 08/03/2012 Microscopic hematuria [R31.29] 08/25/2012 Proteinuria [R80.9] 08/25/2012 Cervical spine arthritis [M47.812] 08/31/2012 Reflux esophagitis [K21.00] 09/19/2012 Alcohol abuse [F10.10] 11/30/2014 10/29/2015 Hyperlipidemia [E78.5] 11/30/2014 Alcoholism (HCC) [F10.20] 01/16/2015 03/26/2016 Tobacco use disorder [F17.200] 01/29/2015 Right-sided lacunar infarction (HCC) [I63.81] 07/03/2015 07/25/2020 Bilateral low back pain without sciatica [M54.5*07/16/2015 Morbid obesity due to excess calories (HCC) [E6*10/30/2015 07/25/2020 Alcohol abuse, in remission [F10.11] 10/30/2015 Pulmonary embolus (HCC) [I26.99] 11/07/2015 03/03/2017 Anxiety and depression [F41.9, F32.A] 11/07/2015 Chronic pain [G89.29] 11/07/2015 Thrombocytosis (HCC) [D75.839] 12/10/2015 07/25/2020 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] 02/06/2016 10/12/2017 Chronic prescription opiate use [Z79.891] 02/13/2016 10/12/2017 Anemia due to GI blood loss [D50.0] 03/02/2016 03/03/2017 Rectal bleeding [K62.5] 03/02/2016 03/03/2017 Idiopathic colitis [K52.9] 03/02/2016 Seizure disorder (HCC) [G40.909] 06/05/2016 10/12/2017 Rotator cuff syndrome of both shoulders [M75.10*06/05/2016 10/12/2017 Renal stone [N20.0] 09/16/2016 Leukocytosis [D72.829] 10/16/2017 Elevated sedimentation rate [R70.0] 10/16/2017 Obesity, Class I, BMI 30-34.9 [E66.811] 09/29/2021 Acute respiratory failure with hypoxia (HCC) [J*04/29/2023 Encounter Status:Closed by IDALIA MURRIETA on 07/05/24 [facility] 05-15-2024 Note HNO ID: [id number] Author: IDALIA MURRIETA MA Service: ? Author Type: Bed Setter Type: Progress Notes Filed: 05/15/2024 11:50 Note Text: POPULATION HEALTH NAVIGATION OUTREACH Action/Miladis Galindo [place] Discuss/Due for: Medicare Wellness, Mammogram, Influenza Vaccination HCC Score: .23730 Outcome: 1st attempt - Not Available 2nd attempt - Taigenhart message sent Reason for Outreach Care Gap/HCC or Scheduling Wellness Visits Care Gaps due: Medicare Annual Wellness Visit Breast Cancer Screening Flu Vaccine Patient Contacted: Unable or unnecessary to reach patient: Unable to leave message Risk I/Ot message sent HCC related Navigation Signature: Idalia Murrieta MA May 15, 2024 11:44 AM [facility] 05-15-2024 History of Presen t illness Narrative POPULATION HEALTH NAVIGATION OUTREACH Action/Miladis Galindo [place] Discuss/Due for: Medicare Wellness, Mammogram, Influenza Vaccination HCC Score: .19217 Outcome: 1st attempt - Not Available 2nd attempt - MyChart message sent Reason for Outreach Care Gap/HCC or Scheduling Wellness Visits Care Gaps due: Medicare Annual Wellness Visit Breast Cancer Screening Flu Vaccine Patient Contacted: Unable or unnecessary to reach patient: Unable to leave message Risk I/Ot message sent HCC related Navigation Signature: Idalia Murrieta MA May 15, 2024 11:44 AM documented in this encounter [facility] 05-15-2024 Note Patient Outreach (SAMSON ALVAREZ) SAVANNAH IRVIN ([id number]) 1965 F Date Time Provider Department 05/15/24 IDALIA MURRIETA During your visit today, we recorded the following information about you: Idalia Murrieta MA 05/15/2024 11:50 AM Signed POPULATION HEALTH NAVIGATION OUTREACH Action/FYI Miladis Ledesma [place] Discuss/Due for: Medicare Wellness, Mammogram, Influenza Vaccination HCC Score: .79757 Outcome: 1st attempt - Not Available 2nd attempt - MyChart message sent Reason for Outreach Care Gap/HCC or Scheduling Wellness Visits Care Gaps due: Medicare Annual Wellness Visit Breast Cancer Screening Flu Vaccine Patient Contacted: Unable or unnecessary to reach patient: Unable to leave message Taigenhart message sent HCC related Navigation Signature: Idalia Murrieta MA May 15, 2024 11:44 AM Allergies As of Date: 05/15/2024 Noted Allergy Reaction all nuts [Other] 10/29/2005 10 - Anaphylaxis ARGAN NUT 04/29/2023 10 - Anaphylaxis BRAZIL NUT 04/29/2023 10 - Anaphylaxis CASHEW NUT 04/29/2023 10 - Anaphylaxis HAZELNUT 04/29/2023 10 - Anaphylaxis MACADAMIA NUT OIL 04/29/2023 10 - Anaphylaxis PEANUTS 04/29/2023 10 - Anaphylaxis PECAN NUT 04/29/2023 10 - Anaphylaxis PINE NUT 04/29/2023 10 - Anaphylaxis PISTACHIO NUT 04/29/2023 10 - Anaphylaxis TREE NUT 04/29/2023 10 - Anaphylaxis Date Reviewed: 05/01/2023 Reviewed by: Tara Carr, RN - Fully Assessed Reason for Visit: Population Health Navigation Outreach [3910] Cmt: Miladis Ledesma [place] Prescriptions as of 05/15/2024 - albuterol HFA (PROVENTIL HFA, VENTOLIN HFA) 90 mcg/actuation inhaler inhale 2 puffs by mouth and INTO THE LUNGS every 4 hours if needed for wheezing or shortness of breath - EPINEPHrine (EPIPEN) 0.3 mg/0.3 mL auto-injector Use as directed for allergic reaction - pantoprazole DR (PROTONIX) 40 mg tablet Take 1 tablet by mouth daily before breakfast. Take on empty stomach, 1/2 hr before meal. - Nebulizer Accessories misc 1 Each twice daily. New mask for nebulizer - ipratropium-albuterol (DUONEB) 0.5 mg-3 mg(2.5 mg base)/3 mL nebu Inhale 3 mL as instructed every 6 hours as needed (wheezing). Use over 5-15minutes per nebulizer. - Ibuprofen 200 mg cap Take by mouth as directed. - Nebulizer 1 Device four times daily as needed. NEBULIZER FOR HOME USE. DX: pneumonia; asthma J 45.909 J 15.9 - Nebulizer Accessories kit 1 Each four times daily as needed. - Blood Pressure Cuff - Home Use BLOOD PRESSURE CUFF FOR HOME USE. DX: LABILE BLOOD PRESSURE - COMPOUNDED PRESCRIPTION 1 Device once daily. NEBULIZER FOR HOME USE. DX: asthma, mild intermittent J45.20 - + Nebulizer Supplies Nebulizer, Mask, AND O2 Tubing. Use as directed. Problem List As Of Date 05/15/2024 Noted Resolved Asthma [J45.909] Sprain of neck [S13.9XXA] 10/29/2005 09/03/2014 Lateral epicondylitis of elbow [M77.10] 03/09/2006 09/03/2014 Lesion of plantar nerve [G57.60] 03/09/2006 09/03/2014 BENIGN HYPERTENSION [I10] 05/17/2006 Cervicalgia [M54.2] 03/14/2007 09/03/2014 History of cerebral infarction [Z86.73] 12/31/2011 Depression [F32.A] 12/31/2011 07/25/2020 Anaphylactic reaction [T78.2XXA] 12/31/2011 09/03/2014 Chronic bronchitis (HCC) [J42] 08/03/2012 Microscopic hematuria [R31.29] 08/25/2012 Proteinuria [R80.9] 08/25/2012 Cervical spine arthritis [M47.812] 08/31/2012 Reflux esophagitis [K21.00] 09/19/2012 Alcohol abuse [F10.10] 11/30/2014 10/29/2015 Hyperlipidemia [E78.5] 11/30/2014 Alcoholism (HCC) [F10.20] 01/16/2015 03/26/2016 Tobacco use disorder [F17.200] 01/29/2015 Right-sided lacunar infarction (HCC) [I63.81] 07/03/2015 07/25/2020 Bilateral low back pain without sciatica [M54.5*07/16/2015 Morbid obesity due to excess calories (HCC) [E6*10/30/2015 07/25/2020 Alcohol abuse, in remission [F10.11] 10/30/2015 Pulmonary embolus (HCC) [I26.99] 11/07/2015 03/03/2017 Anxiety and depression [F41.9, F32.A] 11/07/2015 Chronic pain [G89.29] 11/07/2015 Thrombocytosis (HCC) [D75.839] 12/10/2015 07/25/2020 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] 02/06/2016 10/12/2017 Chronic prescription opiate use [Z79.891] 02/13/2016 10/12/2017 Anemia due to GI blood loss [D50.0] 03/02/2016 03/03/2017 Rectal bleeding [K62.5] 03/02/2016 03/03/2017 Idiopathic colitis [K52.9] 03/02/2016 Seizure disorder (HCC) [G40.909] 06/05/2016 10/12/2017 Rotator cuff syndrome of both shoulders [M75.10*06/05/2016 10/12/2017 Renal stone [N20.0] 09/16/2016 Leukocytosis [D72.829] 10/16/2017 Elevated sedimentation rate [R70.0] 10/16/2017 Obesity, Class I, BMI 30-34.9 [E66.811] 09/29/2021 Acute respiratory failure with hypoxia (HCC) [J*04/29/2023 Encounter Status:Closed by IDALIA MURRIETA on 05/15/24 [facility] 02-25-2024 Note HNO ID: [id number] Author: IDALIA MURRIETA MA Service: ? Author Type: Bed Setter Type: Progress Notes Filed: 02/25/2024 13:19 Note Text: POPULATION HEALTH NAVIGATION OUTREACH Action/Miladis Galindo [place] Discuss/Due for: Medicare Wellness, Mammogram HCC Score: .35140 Outcome: 1st attempt - No Answer/Busy 2nd attempt - MyChart message sent Reason for Outreach Care Gap/HCC or Scheduling Wellness Visits Care Gaps due: Medicare Annual Wellness Visit Breast Cancer Screening Patient Contacted: Unable or unnecessary to reach patient: Unable to leave message MyChart message sent HCC related Navigation Signature: Idalia Murrieta MA February 25, 2024 8:06 AM [facility] 02-25-2024 History of Presen t illness Narrative POPULATION HEALTH NAVIGATION OUTREACH Action/Miladis Galindo [place] Discuss/Due for: Medicare Wellness, Mammogram HCC Score: .81033 Outcome: 1st attempt - No Answer/Busy 2nd attempt - MyChart message sent Reason for Outreach Care Gap/HCC or Scheduling Wellness Visits Care Gaps due: Medicare Annual Wellness Visit Breast Cancer Screening Patient Contacted: Unable or unnecessary to reach patient: Unable to leave message MyChart message sent HCC related Navigation Signature: Idalia Murrieta MA February 25, 2024 8:06 AM documented in this encounter [facility] 02-25-2024 Note Patient Outreach (NE TNAV) SAVANNAH IRVIN ([id number]) 1965 F Date Time Provider Department 02/25/24 IDALIA MURRIETA During your visit today, we recorded the following information about you: Idalia Murrieta MA 02/25/2024 1:19 PM Signed POPULATION HEALTH NAVIGATION OUTREACH Action/Miladis Galindo [place] Discuss/Due for: Medicare Wellness, Mammogram HCC Score: .23951 Outcome: 1st attempt - No Answer/Busy 2nd attempt - MyChart message sent Reason for Outreach Care Gap/HCC or Scheduling Wellness Visits Care Gaps due: Medicare Annual Wellness Visit Breast Cancer Screening Patient Contacted: Unable or unnecessary to reach patient: Unable to leave message Taigenhart message sent HCC related Navigation Signature: Idalia Murrieta MA February 25, 2024 8:06 AM Allergies As of Date: 02/25/2024 Noted Allergy Reaction all nuts [Other] 10/29/2005 10 - Anaphylaxis ARGAN NUT 04/29/2023 10 - Anaphylaxis BRAZIL NUT 04/29/2023 10 - Anaphylaxis CASHEW NUT 04/29/2023 10 - Anaphylaxis HAZELNUT 04/29/2023 10 - Anaphylaxis MACADAMIA NUT OIL 04/29/2023 10 - Anaphylaxis PEANUTS 04/29/2023 10 - Anaphylaxis PECAN NUT 04/29/2023 10 - Anaphylaxis PINE NUT 04/29/2023 10 - Anaphylaxis PISTACHIO NUT 04/29/2023 10 - Anaphylaxis TREE NUT 04/29/2023 10 - Anaphylaxis Date Reviewed: 05/01/2023 Reviewed by: Tara Carr RN - Fully Assessed Reason for Visit: Population Health Navigation Outreach [3910] Cmt: Miladis Ledesma [place] Prescriptions as of 02/25/2024 - albuterol HFA (PROVENTIL HFA, VENTOLIN HFA) 90 mcg/actuation inhaler inhale 2 puffs by mouth and INTO THE LUNGS every 4 hours if needed for wheezing or shortness of breath - EPINEPHrine (EPIPEN) 0.3 mg/0.3 mL auto-injector Use as directed for allergic reaction - pantoprazole DR (PROTONIX) 40 mg tablet Take 1 tablet by mouth daily before breakfast. Take on empty stomach, 1/2 hr before meal. - Nebulizer Accessories misc 1 Each twice daily. New mask for nebulizer - ipratropium-albuterol (DUONEB) 0.5 mg-3 mg(2.5 mg base)/3 mL nebu Inhale 3 mL as instructed every 6 hours as needed (wheezing). Use over 5-15minutes per nebulizer. - Ibuprofen 200 mg cap Take by mouth as directed. - Nebulizer 1 Device four times daily as needed. NEBULIZER FOR HOME USE. DX: pneumonia; asthma J 45.909 J 15.9 - Nebulizer Accessories kit 1 Each four times daily as needed. - Blood Pressure Cuff - Home Use BLOOD PRESSURE CUFF FOR HOME USE. DX: LABILE BLOOD PRESSURE - COMPOUNDED PRESCRIPTION 1 Device once daily. NEBULIZER FOR HOME USE. DX: asthma, mild intermittent J45.20 - + Nebulizer Supplies Nebulizer, Mask, AND O2 Tubing. Use as directed. Problem List As Of Date 02/25/2024 Noted Resolved Asthma [J45.909] Sprain of neck [S13.9XXA] 10/29/2005 09/03/2014 Lateral epicondylitis of elbow [M77.10] 03/09/2006 09/03/2014 Lesion of plantar nerve [G57.60] 03/09/2006 09/03/2014 BENIGN HYPERTENSION [I10] 05/17/2006 Cervicalgia [M54.2] 03/14/2007 09/03/2014 History of cerebral infarction [Z86.73] 12/31/2011 Depression [F32.A] 12/31/2011 07/25/2020 Anaphylactic reaction [T78.2XXA] 12/31/2011 09/03/2014 Chronic bronchitis (HCC) [J42] 08/03/2012 Microscopic hematuria [R31.29] 08/25/2012 Proteinuria [R80.9] 08/25/2012 Cervical spine arthritis [M47.812] 08/31/2012 Reflux esophagitis [K21.00] 09/19/2012 Alcohol abuse [F10.10] 11/30/2014 10/29/2015 Hyperlipidemia [E78.5] 11/30/2014 Alcoholism (HCC) [F10.20] 01/16/2015 03/26/2016 Tobacco use disorder [F17.200] 01/29/2015 Right-sided lacunar infarction (HCC) [I63.81] 07/03/2015 07/25/2020 Bilateral low back pain without sciatica [M54.5*07/16/2015 Morbid obesity due to excess calories (HCC) [E6*10/30/2015 07/25/2020 Alcohol abuse, in remission [F10.11] 10/30/2015 Pulmonary embolus (HCC) [I26.99] 11/07/2015 03/03/2017 Anxiety and depression [F41.9, F32.A] 11/07/2015 Chronic pain [G89.29] 11/07/2015 Thrombocytosis (HCC) [D75.839] 12/10/2015 07/25/2020 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] 02/06/2016 10/12/2017 Chronic prescription opiate use [Z79.891] 02/13/2016 10/12/2017 Anemia due to GI blood loss [D50.0] 03/02/2016 03/03/2017 Rectal bleeding [K62.5] 03/02/2016 03/03/2017 Idiopathic colitis [K52.9] 03/02/2016 Seizure disorder (HCC) [G40.909] 06/05/2016 10/12/2017 Rotator cuff syndrome of both shoulders [M75.10*06/05/2016 10/12/2017 Renal stone [N20.0] 09/16/2016 Leukocytosis [D72.829] 10/16/2017 Elevated sedimentation rate [R70.0] 10/16/2017 Obesity, Class I, BMI 30-34.9 [E66.9] 09/29/2021 Acute respiratory failure with hypoxia (HCC) [J*04/29/2023 Encounter Status:Closed by IDALIA MURRIETA on 02/25/24 [facility] 01-04-2024 Note HNO ID: [id number] Author: IDALIA MURRIETA MA Service: ? Author Type: Bed Setter Type: Progress Notes Filed: 01/04/2024 10:48 Note Text: POPULATION HEALTH NAVIGATION OUTREACH Action/Miladis Galindo [place] Discuss/Due for: Medicare Wellness, Mammogram HCC Score: .63660 Outcome: 1st attempt - No Answer/Busy 2nd attempt - MyChart message sent Reason for Outreach Care Gap/HCC or Scheduling Wellness Visits Care Gaps due: Medicare Annual Wellness Visit Breast Cancer Screening Patient Contacted: Unable or unnecessary to reach patient: Unable to leave message MyChart message sent HCC related Navigation Signature: Idalia Murrieta MA January 04, 2024 7:47 AM [facility] 01-04-2024 History of Presen t illness Narrative POPULATION HEALTH NAVIGATION OUTREACH Action/Miladis Galindo [place] Discuss/Due for: Medicare Wellness, Mammogram HCC Score: .51126 Outcome: 1st attempt - No Answer/Busy 2nd attempt - MyChart message sent Reason for Outreach Care Gap/HCC or Scheduling Wellness Visits Care Gaps due: Medicare Annual Wellness Visit Breast Cancer Screening Patient Contacted: Unable or unnecessary to reach patient: Unable to leave message MyChart message sent HCC related Navigation Signature: Idalia Murrieta MA January 04, 2024 7:47 AM documented in this encounter [facility] 01-04-2024 Note Patient Outreach (NE TNAV) SAVANNAH IRVIN ([id number]) 1965 F Date Time Provider Department 01/04/24 IDALIA MURRIETA NETCHARISSEV During your visit today, we recorded the following information about you: Idalia Murrieta MA 01/04/2024 10:48 AM Signed POPULATION HEALTH NAVIGATION OUTREACH Action/Miladis Galindo [place] Discuss/Due for: Medicare Wellness, Mammogram HCC Score: .44997 Outcome: 1st attempt - No Answer/Busy 2nd attempt - MyChart message sent Reason for Outreach Care Gap/HCC or Scheduling Wellness Visits Care Gaps due: Medicare Annual Wellness Visit Breast Cancer Screening Patient Contacted: Unable or unnecessary to reach patient: Unable to leave message MyChart message sent HCC related Navigation Signature: Idalia Murrieta MA January 04, 2024 7:47 AM Allergies As of Date: 01/04/2024 Noted Allergy Reaction all nuts [Other] 10/29/2005 10 - Anaphylaxis ARGAN NUT 04/29/2023 10 - Anaphylaxis BRAZIL NUT 04/29/2023 10 - Anaphylaxis CASHEW NUT 04/29/2023 10 - Anaphylaxis HAZELNUT 04/29/2023 10 - Anaphylaxis MACADAMIA NUT OIL 04/29/2023 10 - Anaphylaxis PEANUTS 04/29/2023 10 - Anaphylaxis PECAN NUT 04/29/2023 10 - Anaphylaxis PINE NUT 04/29/2023 10 - Anaphylaxis PISTACHIO NUT 04/29/2023 10 - Anaphylaxis TREE NUT 04/29/2023 10 - Anaphylaxis Date Reviewed: 05/01/2023 Reviewed by: Tara Carr RN - Fully Assessed Reason for Visit: Population Health Navigation Outreach [3910] Cmt: Aejaspreet,Miladis,Reese Prescriptions as of 01/04/2024 - albuterol HFA (PROVENTIL HFA, VENTOLIN HFA) 90 mcg/actuation inhaler inhale 2 puffs by mouth and INTO THE LUNGS every 4 hours if needed for wheezing or shortness of breath - EPINEPHrine (EPIPEN) 0.3 mg/0.3 mL auto-injector Use as directed for allergic reaction - pantoprazole DR (PROTONIX) 40 mg tablet Take 1 tablet by mouth daily before breakfast. Take on empty stomach, 1/2 hr before meal. - Nebulizer Accessories misc 1 Each twice daily. New mask for nebulizer - ipratropium-albuterol (DUONEB) 0.5 mg-3 mg(2.5 mg base)/3 mL nebu Inhale 3 mL as instructed every 6 hours as needed (wheezing). Use over 5-15minutes per nebulizer. - Ibuprofen 200 mg cap Take by mouth as directed. - Nebulizer 1 Device four times daily as needed. NEBULIZER FOR HOME USE. DX: pneumonia; asthma J 45.909 J 15.9 - Nebulizer Accessories kit 1 Each four times daily as needed. - Blood Pressure Cuff - Home Use BLOOD PRESSURE CUFF FOR HOME USE. DX: LABILE BLOOD PRESSURE - COMPOUNDED PRESCRIPTION 1 Device once daily. NEBULIZER FOR HOME USE. DX: asthma, mild intermittent J45.20 - + Nebulizer Supplies Nebulizer, Mask, AND O2 Tubing. Use as directed. Problem List As Of Date 01/04/2024 Noted Resolved Asthma [J45.909] Sprain of neck [S13.9XXA] 10/29/2005 09/03/2014 Lateral epicondylitis of elbow [M77.10] 03/09/2006 09/03/2014 Lesion of plantar nerve [G57.60] 03/09/2006 09/03/2014 BENIGN HYPERTENSION [I10] 05/17/2006 Cervicalgia [M54.2] 03/14/2007 09/03/2014 History of cerebral infarction [Z86.73] 12/31/2011 Depression [F32.A] 12/31/2011 07/25/2020 Anaphylactic reaction [T78.2XXA] 12/31/2011 09/03/2014 Chronic bronchitis (HCC) [J42] 08/03/2012 Microscopic hematuria [R31.29] 08/25/2012 Proteinuria [R80.9] 08/25/2012 Cervical spine arthritis [M47.812] 08/31/2012 Reflux esophagitis [K21.00] 09/19/2012 Alcohol abuse [F10.10] 11/30/2014 10/29/2015 Hyperlipidemia [E78.5] 11/30/2014 Alcoholism (HCC) [F10.20] 01/16/2015 03/26/2016 Tobacco use disorder [F17.200] 01/29/2015 Right-sided lacunar infarction (HCC) [I63.81] 07/03/2015 07/25/2020 Bilateral low back pain without sciatica [M54.5*07/16/2015 Morbid obesity due to excess calories (HCC) [E6*10/30/2015 07/25/2020 Alcohol abuse, in remission [F10.11] 10/30/2015 Pulmonary embolus (HCC) [I26.99] 11/07/2015 03/03/2017 Anxiety and depression [F41.9, F32.A] 11/07/2015 Chronic pain [G89.29] 11/07/2015 Thrombocytosis (HCC) [D75.839] 12/10/2015 07/25/2020 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] 02/06/2016 10/12/2017 Chronic prescription opiate use [Z79.891] 02/13/2016 10/12/2017 Anemia due to GI blood loss [D50.0] 03/02/2016 03/03/2017 Rectal bleeding [K62.5] 03/02/2016 03/03/2017 Idiopathic colitis [K52.9] 03/02/2016 Seizure disorder (HCC) [G40.909] 06/05/2016 10/12/2017 Rotator cuff syndrome of both shoulders [M75.10*06/05/2016 10/12/2017 Renal stone [N20.0] 09/16/2016 Leukocytosis [D72.829] 10/16/2017 Elevated sedimentation rate [R70.0] 10/16/2017 Obesity, Class I, BMI 30-34.9 [E66.9] 09/29/2021 Acute respiratory failure with hypoxia (HCC) [J*04/29/2023 Encounter Status:Closed by IDALIA MURRIETA on 01/04/24 [facility] 12-07-2023 Note HNO ID: [id number] Author: IDALAI MURRIETA MA Service: ? Author Type: Bed Setter Type: Progress Notes Filed: 12/07/2023 10:43 Note Text: POPULATION HEALTH NAVIGATION OUTREACH Action/Miladis Galindo [place] Discuss/Due for: Medicare Wellness, Mammogram HCC Score: .75082 Outcome: 1st attempt - No Answer/Busy- Voicemail is not set up yet 2nd attempt - MyChart message sent Reason for Outreach Care Gap/HCC or Scheduling Wellness Visits Care Gaps due: Medicare Annual Wellness Visit Breast Cancer Screening Patient Contacted: Unable or unnecessary to reach patient: Unable to leave message MyChart message sent HCC related Navigation Signature: Idalia Murrieta MA December 07, 2023 7:46 AM [facility] 12-07-2023 History of Presen t illness Narrative POPULATION HEALTH NAVIGATION OUTREACH Action/Miladis Galindo [place] Discuss/Due for: Medicare Wellness, Mammogram HCC Score: .15387 Outcome: 1st attempt - No Answer/Busy- Voicemail is not set up yet 2nd attempt - MyChart message sent Reason for Outreach Care Gap/HCC or Scheduling Wellness Visits Care Gaps due: Medicare Annual Wellness Visit Breast Cancer Screening Patient Contacted: Unable or unnecessary to reach patient: Unable to leave message MyChart message sent HCC related Navigation Signature: Idalia Murrieta MA December 07, 2023 7:46 AM documented in this encounter [facility] 12-07-2023 Note Patient Outreach (NE TNAV) BRANDEESAVANNAH Jacob ([id number]) 1965 F Date Time Provider Department 12/07/23 IDALIA MURRIETA During your visit today, we recorded the following information about you: Idalia Murrieta MA 12/07/2023 10:43 AM Signed POPULATION HEALTH NAVIGATION OUTREACH Action/Miladis Galindo [place] Discuss/Due for: Medicare Wellness, Mammogram HCC Score: .98214 Outcome: 1st attempt - No Answer/Busy- Voicemail is not set up yet 2nd attempt - Taigenhart message sent Reason for Outreach Care Gap/HCC or Scheduling Wellness Visits Care Gaps due: Medicare Annual Wellness Visit Breast Cancer Screening Patient Contacted: Unable or unnecessary to reach patient: Unable to leave message MyChart message sent HCC related Navigation Signature: Idalia Murrieta MA December 07, 2023 7:46 AM Allergies As of Date: 12/07/2023 Noted Allergy Reaction all nuts [Other] 10/29/2005 10 - Anaphylaxis ARGAN NUT 04/29/2023 10 - Anaphylaxis BRAZIL NUT 04/29/2023 10 - Anaphylaxis CASHEW NUT 04/29/2023 10 - Anaphylaxis HAZELNUT 04/29/2023 10 - Anaphylaxis MACADAMIA NUT OIL 04/29/2023 10 - Anaphylaxis PEANUTS 04/29/2023 10 - Anaphylaxis PECAN NUT 04/29/2023 10 - Anaphylaxis PINE NUT 04/29/2023 10 - Anaphylaxis PISTACHIO NUT 04/29/2023 10 - Anaphylaxis TREE NUT 04/29/2023 10 - Anaphylaxis Date Reviewed: 05/01/2023 Reviewed by: Tara Carr, RN - Fully Assessed Reason for Visit: Population Health Navigation Outreach [3910] Cmt: Miladis Ledesma [place] Prescriptions as of 12/07/2023 - albuterol HFA (PROVENTIL HFA, VENTOLIN HFA) 90 mcg/actuation inhaler inhale 2 puffs by mouth and INTO THE LUNGS every 4 hours if needed for wheezing or shortness of breath - EPINEPHrine (EPIPEN) 0.3 mg/0.3 mL auto-injector Use as directed for allergic reaction - pantoprazole DR (PROTONIX) 40 mg tablet Take 1 tablet by mouth daily before breakfast. Take on empty stomach, 1/2 hr before meal. - Nebulizer Accessories misc 1 Each twice daily. New mask for nebulizer - ipratropium-albuterol (DUONEB) 0.5 mg-3 mg(2.5 mg base)/3 mL nebu Inhale 3 mL as instructed every 6 hours as needed (wheezing). Use over 5-15minutes per nebulizer. - Ibuprofen 200 mg cap Take by mouth as directed. - Nebulizer 1 Device four times daily as needed. NEBULIZER FOR HOME USE. DX: pneumonia; asthma J 45.909 J 15.9 - Nebulizer Accessories kit 1 Each four times daily as needed. - Blood Pressure Cuff - Home Use BLOOD PRESSURE CUFF FOR HOME USE. DX: LABILE BLOOD PRESSURE - COMPOUNDED PRESCRIPTION 1 Device once daily. NEBULIZER FOR HOME USE. DX: asthma, mild intermittent J45.20 - + Nebulizer Supplies Nebulizer, Mask, AND O2 Tubing. Use as directed. Problem List As Of Date 12/07/2023 Noted Resolved Asthma [J45.909] Sprain of neck [S13.9XXA] 10/29/2005 09/03/2014 Lateral epicondylitis of elbow [M77.10] 03/09/2006 09/03/2014 Lesion of plantar nerve [G57.60] 03/09/2006 09/03/2014 BENIGN HYPERTENSION [I10] 05/17/2006 Cervicalgia [M54.2] 03/14/2007 09/03/2014 History of cerebral infarction [Z86.73] 12/31/2011 Depression [F32.A] 12/31/2011 07/25/2020 Anaphylactic reaction [T78.2XXA] 12/31/2011 09/03/2014 Chronic bronchitis (HCC) [J42] 08/03/2012 Microscopic hematuria [R31.29] 08/25/2012 Proteinuria [R80.9] 08/25/2012 Cervical spine arthritis [M47.812] 08/31/2012 Reflux esophagitis [K21.00] 09/19/2012 Alcohol abuse [F10.10] 11/30/2014 10/29/2015 Hyperlipidemia [E78.5] 11/30/2014 Alcoholism (HCC) [F10.20] 01/16/2015 03/26/2016 Tobacco use disorder [F17.200] 01/29/2015 Right-sided lacunar infarction (HCC) [I63.81] 07/03/2015 07/25/2020 Bilateral low back pain without sciatica [M54.5*07/16/2015 Morbid obesity due to excess calories (HCC) [E6*10/30/2015 07/25/2020 Alcohol abuse, in remission [F10.11] 10/30/2015 Pulmonary embolus (HCC) [I26.99] 11/07/2015 03/03/2017 Anxiety and depression [F41.9, F32.A] 11/07/2015 Chronic pain [G89.29] 11/07/2015 Thrombocytosis (HCC) [D75.839] 12/10/2015 07/25/2020 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 10/12/2017 Chronic prescription opiate use [Z79.891] 02/13/2016 10/12/2017 Anemia due to GI blood loss [D50.0] 03/02/2016 03/03/2017 Rectal bleeding [K62.5] 03/02/2016 03/03/2017 Idiopathic colitis [K52.9] 03/02/2016 Seizure disorder (HCC) [G40.909] 06/05/2016 10/12/2017 Rotator cuff syndrome of both shoulders [M75.10*06/05/2016 10/12/2017 Renal stone [N20.0] 09/16/2016 Leukocytosis [D72.829] 10/16/2017 Elevated sedimentation rate [R70.0] 10/16/2017 Obesity, Class I, BMI 30-34.9 [E66.9] 09/29/2021 Acute respiratory failure with hypoxia (HCC) [J*04/29/2023 Encounter Status:Closed by IDALIA MURRIETA on 12/07/23 [facility] 10-29-2023 History of Presen t illness Narrative POPULATION HEALTH NAVIGATION OUTREACH Action/FYI Miladis Ledesma [place] Discuss/Due for: Medicare Wellness, Mammogram Outcome: 1st attempt - Not Available/Voicemail has not been set up yet 2nd attempt - MyChart message sent Reason for Outreach Care Gap/HCC or Scheduling Wellness Visits Care Gaps due: Medicare Annual Wellness Visit Breast Cancer Screening Patient Contacted: Unable or unnecessary to reach patient: Unable to leave message MyChart message sent Navigation Signature: Idalia Murrieta MA October 29, 2023 9:30 AM documented in this encounter [facility] 07-02-2023 Hospital Discharg e instructions Patient Education 07/01/2023 22:28:24 Food Allergy Food Allergy The best way to deal with food allergies is to avoid the foods you are allergic to. Understand and be aware of the foods that you have reacted to. Also be cautious of foods or dishes that may have flavorings or small amounts of foods that you are allergic to. Symptoms of food allergy may start within minutes, but can start 2 hours after eating or later. Common symptoms can include: Nausea Vomiting Diarrhea or stomach cramps Itchy rash (hives) Swelling of the eyes, lips, face or tongue Wheezing Trouble breathing or swallowing Throat tightness Dizziness or fainting This kind of allergic reaction, called anaphylaxis, can be life threatening. In mild and moderate cases, the symptoms usually begin improving within 6 to 24 hours. People with certain health problems, such as asthma and eczema, may be more likely to have food allergies. Foods that people are most commonly allergic to are milk or dairy products, eggs, peanuts, tree nuts, soy, shellfish, and wheat. Remember that any food can cause a reaction. Treatment for a severe allergic reaction can include epinephrine. If you have a severe food allergy, or have had severe allergic reactions even if you don't know the cause, you should carry this medicine with you for self-injection. It is available by prescription. It is also available in a lower dose form for children from your healthcare provider. Home care The following guidelines will help you care for yourself at home: If your symptoms were moderate to severe, they may fluctuate for the next 24 hours. It may be best to rest at home during that time. Don't use tobacco or alcohol because they can make symptoms worse. They can also interact with the medicines you are taking to treat the allergic reaction. If you know what foods caused your reaction today, avoid them in the future. The next and each reaction after this may make your body more sensitive to these foods. This can cause a worse reaction later. Tell your family members, friends, and doctors about your food allergy, especially in an emergency situation since they need to know how to give you epinephrine if you are unable to. This can be lifesaving. Learn how to read food labels so you can check for the substance that you reacted to. If a food does not have a label, it is best to avoid it. When in restaurants, ask about ingredients and tell the staff, If I eat a dish containing (food you are allergic to), I could have a severe allergic reaction. If your reaction was severe, get a medical alert bracelet or necklace that notes your allergy. If epinephrine is prescribed, carry it with you at all times. Learn how to use the device. If you begin to feel the symptoms of another reaction, use the epinephrine to inject yourself right away, and call 911. Don t wait until symptoms become severe. Oral allergy medicines (such as diphenhydramine) are antihistamines that can help with the reaction. You can buy them at any pharmacy or supermarket. They come in liquids, pills, or capsules. Unless your doctor gave you a prescription antihistamine, you can use these medicines to ease itching. Allergy medicines can make you sleepy, so be careful, especially when driving or working. For this reason, you may want to use lower doses during the day and save the higher doses for bedtime. Don't use diphenhydramine if you have glaucoma or if you are a man with trouble urinating because of an enlarged prostate. If allergy medicines with diphenhydramine make you too sleepy, talk with your healthcare provider. He or she can recommend an over-the counter antihistamine that won't make you sleepy. These may not work as well, though. Follow-up care Follow up with your healthcare provider if your symptoms don't get better over the next 2 to 3 days. If you don't know what caused this reaction, your provider may order skin tests and blood tests, or an elimination diet. You can find an academic affairs specialist in your area by contacting: [employer], www.aaaai.org [employer], www.acaai.org When to seek medical advice Call your healthcare provider right away if any of these occur: Your symptoms get worse New or worse swelling in the face, eyelids, lips, mouth, throat, or tongue Mild trouble swallowing, breathing, or wheezing Fever of 100.4 F (38.0 C) or higher, or as directed by your healthcare provider Severe abdominal pain Persistent vomiting (unable to keep liquids down) or constant diarrhea Blood or mucus in the stool Call 911 If any of these occur, give yourself injectable epinephrine and call 911: Significant trouble breathing, talking, or swallowing Any change in level of alertness or unconsciousness, including dizziness, weakness, or fainting Cool, moist skin Fast, weak heartbeat Severe wheezing Severe or worsening hives Severe swelling of the face, tongue, or lips Drooling Vomiting that happens soon after eating a food you think you are allergic to Explosive diarrhea [id number] [employer]. [address] [place] [address]. All rights reserved. This information is not intended as a substitute for professional medical care. Always follow your healthcare professional's instructions. Follow Up Care 07/01/2023 19:32:51 With:KENISHA ABBASI III, MD Address: [address] [place] [phone] When:2-4 days [facility] 07-01-2023 Note Discharge Instructions Thank you for allowing [facility] to assist you with your healthcare needs. The following is important discharge information regarding your hospital visit. Diagnosis from Today's Visit Allergic reaction - major What to Do Next Instructions from Your Care Team No qualifying data available. Post Acute Orders No qualifying data available. You Need to Schedule the Following Appointments Follow Up with KENISHA ABBASI III, MD When Within 2-4 days Where: [address] [place] [phone] Allergies Peanuts (anaphylaxis) Medications Please ask your primary doctor or pharmacist before taking any other medication not listed, including over the counter drugs, herbal medications, vitamins and or supplements as they may interact with your home medications. What How Much When Instructions Last Dose Unchanged albuterol (Ventolin 90 mcg/ inh inhalation aerosol) 2 puff(s) by inhalation Every 4 hours as needed for Wheezing Unchanged EPINEPHrine (EpiPen 2-Ruchi 0.3 mg injectable kit) 1 Each Intramuscular As Directed as needed for allergic reaction Unchanged EPINEPHrine (EpiPen 2-Ruchi) 0.3 Milligram Once as needed for as needed for anaphylaxis Unchanged famotidine (Pepcid 20 mg oral tablet) 1 tab(s) by mouth Every day Duration: 7 Days Unchanged formoterol-mometasone (Dulera 200 mcg-5 mcg/ inh Metered Dose Inhaler) 2 puff(s) by inhalation Two (2) times a day Unchanged guaiFENesin (Mucinex) 600 Milligram by mouth Two (2) times a day as needed for Congestion Unchanged lansoprazole (Prevacid 15 mg oral delayed release capsule (NF)) 1 cap by mouth Every day Unchanged levETIRAcetam (Keppra 500 mg oral tablet) 1 tab(s) by mouth Two (2) times a day Unchanged lisinopril (lisinopril 20 mg oral tablet) 1 tab(s) by mouth Once a day Unchanged metoprolol (Lopressor 25mg--USE metoprolol tartrate 25 mg oral tablet) 1 tab(s) by mouth Two (2) times a day Unchanged omeprazole (NF) (PriLOSEC 40 mg oral delayed release capsule (NF)) 1 cap by mouth Once a day before a meal Unchanged pantoprazole (pantoprazole 40 mg oral enteric coated tablet) 1 tab(s) by mouth Once a day Unchanged predniSONE (predniSONE 50 mg oral tablet) 1 tab(s) by mouth Every day Duration: 7 Days Please take this list to your next doctor s visit. Bring all medications you take, including over the counter medications, herbals and other supplements with you to your doctor s visit. Patients and families are reminded to discard old lists and to update any records with all medication providers or retail pharmacies. Education Materials Food Allergy The best way to deal with food allergies is to avoid the foods you are allergic to. Understand and be aware of the foods that you have reacted to. Also be cautious of foods or dishes that may have flavorings or small amounts of foods that you are allergic to. Symptoms of food allergy may start within minutes, but can start 2 hours after eating or later. Common symptoms can include: Nausea Vomiting Diarrhea or stomach cramps Itchy rash (hives) Swelling of the eyes, lips, face or tongue Wheezing Trouble breathing or swallowing Throat tightness Dizziness or fainting This kind of allergic reaction, called anaphylaxis, can be life threatening. In mild and moderate cases, the symptoms usually begin improving within 6 to 24 hours. People with certain health problems, such as asthma and eczema, may be more likely to have food allergies. Foods that people are most commonly allergic to are milk or dairy products, eggs, peanuts, tree nuts, soy, shellfish, and wheat. Remember that any food can cause a reaction. Treatment for a severe allergic reaction can include epinephrine. If you have a severe food allergy, or have had severe allergic reactions even if you don't know the cause, you should carry this medicine with you for self-injection. It is available by prescription. It is also available in a lower dose form for children from your healthcare provider. Home care The following guidelines will help you care for yourself at home: If your symptoms were moderate to severe, they may fluctuate for the next 24 hours. It may be best to rest at home during that time. Don't use tobacco or alcohol because they can make symptoms worse. They can also interact with the medicines you are taking to treat the allergic reaction. If you know what foods caused your reaction today, avoid them in the future. The next and each reaction after this may make your body more sensitive to these foods. This can cause a worse reaction later. Tell your family members, friends, and doctors about your food allergy, especially in an emergency situation since they need to know how to give you epinephrine if you are unable to. This can be lifesaving. Learn how to read food labels so you can check for the substance that you reacted to. If a food does not have a label, it is best to avoid it. When in restaurants, ask about ingredients and tell the staff, If I eat a dish containing (food you are allergic to), I could have a severe allergic reaction. If your reaction was severe, get a medical alert bracelet or necklace that notes your allergy. If epinephrine is prescribed, carry it with you at all times. Learn how to use the device. If you begin to feel the symptoms of another reaction, use the epinephrine to inject yourself right away, and call 911. Don t wait until symptoms become severe. Oral allergy medicines (such as diphenhydramine) are antihistamines that can help with the reaction. You can buy them at any pharmacy or supermarket. They come in liquids, pills, or capsules. Unless your doctor gave you a prescription antihistamine, you can use these medicines to ease itching. Allergy medicines can make you sleepy, so be careful, especially when driving or working. For this reason, you may want to use lower doses during the day and save the higher doses for bedtime. Don't use diphenhydramine if you have glaucoma or if you are a man with trouble urinating because of an enlarged prostate. If allergy medicines with diphenhydramine make you too sleepy, talk with your healthcare provider. He or she can recommend an over-the counter antihistamine that won't make you sleepy. These may not work as well, though. Follow-up care Follow up with your healthcare provider if your symptoms don't get better over the next 2 to 3 days. If you don't know what caused this reaction, your provider may order skin tests and blood tests, or an elimination diet. You can find an academic affairs specialist in your area by contacting: [employer], www.aaaai.org [employer], www.acaai.org When to seek medical advice Call your healthcare provider right away if any of these occur: Your symptoms get worse New or worse swelling in the face, eyelids, lips, mouth, throat, or tongue Mild trouble swallowing, breathing, or wheezing Fever of 100.4 F (38.0 C) or higher, or as directed by your healthcare provider Severe abdominal pain Persistent vomiting (unable to keep liquids down) or constant diarrhea Blood or mucus in the stool Call 911 If any of these occur, give yourself injectable epinephrine and call 911: Significant trouble breathing, talking, or swallowing Any change in level of alertness or unconsciousness, including dizziness, weakness, or fainting Cool, moist skin Fast, weak heartbeat Severe wheezing Severe or worsening hives Severe swelling of the face, tongue, or lips Drooling Vomiting that happens soon after eating a food you think you are allergic to Explosive diarrhea 1164-7020 [employer]. [address] [place] [address], [place] [address]. All rights reserved. This information is not intended as a substitute for professional medical care. Always follow your healthcare professional's instructions. Additional Information VACCINATE! IT SAVES LIVES! Members of the community who have not yet received the COVID-19 vaccine and would like to receive it can visit one of [facility] vaccine clinics. There are many vaccine clinic locations within the [facility]. For locations and available times, please visit www.gettheshot.coronavirus.[place]. gov/. It is important to note that some COVID mobile vaccine clinics are held outdoors and may be canceled in rainy or stormy conditions. To learn more about pediatric vaccinations (ages 5-11), we invite you to visit the [facility] webpage. https://www.Mobile On Servicess.org/p ages/4227-Hfcnl-Zjtvklgtsvp-Freq qjzwhe-Qgszy-Ekmgsvwlb.html To learn more about the COVID-19 vaccine, we invite you to visit the CDC website for a list of frequently asked questions. https://www.cdc.gov/coronavirus/ 2019-ncov/vaccines/faq.html [facility] Patient Portal Access Instructions: Stay connected with your healthcare team and access your personal medical information anytime with the [facility] Patient Portal. If you would like a full copy of your medical records please contact the [facility] Medical Records Department Wednesday through Wednesday between 8a.m. and 4:30p.m. Please follow the directions below to access the portal: 1.Access the email account you provided upon registration to the hospital.2.Look for an invitation email from [facility].3.Open the email and access the invitation link: Accept Invitation to [facility]4.Fill in the required siu to create your account. Sign into [email or web address] with your username and password that you created in the above steps to stay up to date. You can then view a summary of results, a summary of your visits, and the ability to download your summaries to your computer or send the information securely to a physician. Remember that your healthcare information is confidential, so carefully consider who you will allow to register on the [facility] Patient Portal for access to your information. You can also access the [facility] Patient Portal on the [employer] maycol. Simply click on Health Records under Health Data and then click on the [employer] logo. HOW TO SAFELY DISPOSE OF PRESCRIPTION MEDICATIONS Please use one of the following methods to safely dispose of your unused medications. 1.Use a drug disposal kit: the drug disposal pouch allows you to safely discard your old and unused drugs. Ask your nurse to give you one when you are discharged.2.Visit a local take-back location: Many local pharmacies and police departments have programs that collect old and unwanted prescription drugs. Call your local pharmacy or go to http://MediaSilo.CareerStarter/8Z6Nu9b to find one close to you.3.Make use of household items: Use cat litter or old coffee grounds to dispose medications if other options are not available. Mix your drugs with these household products, seal them in an airtight container and throw it into the garbage. Call [facility]: [phone] to be sure your drugs can be disposed of in this way. Some medicines may require a different approach.4.Never flush your medications down the toilet. IF YOU HAVE BEEN PRESCRIBED AN OPIOIDS FOR PAIN If you have been prescribed an opioid (such as hydrocodone, oxycodone or morphine), it is critical to understand the possible side effects and risks of opioid pain medications. Even when taken as directed, opioids can have several side effects including: Tolerance, meaning you might need to take more of a medication for the same pain relief. Nausea, vomiting and/or constipation. Sleepiness, dizziness, dry mouth, confusion, depression or itching. Physical dependence, meaning you have withdrawal symptoms when a medication is stopped ? this can develop within a few days. KNOW YOUR RESPONSIBILITIES It is important to know exactly how much and how often to take the opioid pain medications you are prescribed. Never take opioids in higher amounts or more often than prescribed. Do not combine opioids with alcohol or other drugs that cause drowsiness, such as benzodiazepines, also known as benzos, including diazepam and alprazolam, muscle relaxants or sleep aids. Never sell or share prescription opioids. This is illegal. Store opioids in a secure place and out of reach of others (including children, family, friends and visitors). The last page(s) of this document has been signed and retained as a CHART COPY Signatures Patient Education Materials Food Allergy Medication Leaflets My discharge plan and instructions have been reviewed and explained to me and I,SAVANNAH IRVIN understand my current condition and have read and understand these discharge instructions. I have received a written copy of the plan/instructions. If I have questions, I am aware that I should contact my doctor. 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 Requested Prescriptions Pending Prescriptions Disp Refills albuterol HFA (VENTOLIN HFA) 90 mcg/actuation inhaler 18 g 5 Sig: inhale 2 puffs by mouth every 4 hours as directed if needed for wheezing shortness of breath Manoj Davidson APRN.STEFANO Patient has been identified by name and date of : Patient phones for refill(s): Requested Prescriptions Pending Prescriptions Disp Refills albuterol HFA (VENTOLIN HFA) 90 mcg/actuation inhaler 18 g 5 Sig: inhale 2 puffs by mouth every 4 hours as directed if needed for wheezing shortness of breath Date of last office visit in primary care: 02/18/2023 Date of next office visit in primary care: 06/21/2023 Last 2 Encounter Wt Readings: Date: Wt: 04/29/2023 82.6 kg (182 lb) 02/18/2023 76.7 kg (169 lb 3.2 oz) Previous labs/tests for medication: Not applicable Please advise. Thank you. Angela Leung LPN. documented in this encounter [facility] 06-05-2023 Progress note Note Date/Time June 05, 2023 8:48am [facility] Medical Records Department [address] [place] [address] Progress Note - Hospitalist 06/05/23 0839 MR#: [id number] Acct: [id number] Name: SAVANNAH IRVIN Rep #:[id number] : 1965 57 From: Nito Thorne DO PCP: Dr. Ivette Welsh MD Status:TAMAR SANABRIA Location: [place] [address] Reason for Visit Reason for Visit: Diagnoses Chronic obstructive pulmonary disease with (acute) exacerbation (06/04/23) Subjective Subjective Breathing much better today. Objective Data Objective Data Vital Signs: Vital Signs Temp Pulse Resp BP Pulse Ox O2 Del Method 36.1 C L 93 18 144/75 H 92 Room Air 06/05/23 05:23 06/05/23 07:25 06/05/23 07:25 06/05/23 05:23 06/05/23 07:25 06/05/23 07:40 Oxygen Delivery Method Room Air Weight: 76.4 kg Body Mass Index (BMI) 28.9 Intake & Output: Intake and Output for Last 24 Hours 06/03/23 06/04/23 06/05/23 23:59 23:59 23:59 Intake Total 267.5 / 267.5 185 / 1850 Balance 267.5 / 267.5 1849 185 Lab / Micro Data 06/05/23 07:21 06/05/23 07:21 Labs: Laboratory Results - last 24 hr 06/04/23 21:30: WBC 13.7 H, RBC 5.13, Hgb 14.2, Hct 45.1, MCV 87.9, MCH 27.7, MCHC 31.5 L, RDW Std Deviation 44.2 H, RDW Coeff of Madhu 13.7, Plt Count 558 H, MPV 9.3, Immature Gran % (Auto) 0.300, Neut % (Auto) 61.9, Lymph % (Auto) 24.9, Vermillion % (Auto) 8.1, Eos % (Auto) 4.2, Baso % (Auto) 0.6, Absolute Neuts (auto) 8.5 H, Absolute Lymphs (auto) 3.40, Nucleated RBC % 0, Sodium 141, Potassium 3.5, Chloride 106, Carbon Dioxide 29.0, Anion Gap 6, BUN 15, Creatinine 0.92, Estim Creat Clear Calc 58.96, Est GFR (MDRD) Af Amer 81, Est GFR (MDRD) Non-Af 67, BUN/Creatinine Ratio 16.3, Glucose 102, Calcium 9.1, Total Bilirubin 0.40, Direct Bilirubin 0.12, AST 14 L, ALT 18, Alkaline Phosphatase 114, Troponin I High Sens 12, Total Protein 7.9, Albumin 3.5, Globulin 4.4 H 06/05/23 07:21: WBC 8.9, RBC 4.85, Hgb 13.5, Hct 43.0, MCV 88.7, MCH 27.8, MCHC 31.4 L, RDW Std Deviation 44.9 H, RDW Coeff of Madhu 13.9, Plt Count 544 H, MPV 9.6, Immature Gran % (Auto) 0.500, Neut % (Auto) 88.4 H, Lymph % (Auto) 10.5 L, Vermillion % (Auto) 0.5, Eos % (Auto) 0.0, Baso % (Auto) 0.1, Absolute Neuts (auto) 7.9 H, Absolute Lymphs (auto) 0.93, Nucleated RBC % 0 Micro: Microbiology 06/04/23 21:44 Nasal Secretion SARS-CoV-2 & FLU Antigen (Rapid) - Final Radiography Diagnostic Testing: Radiology Impression Chest CTA 06/04/23 20:47 IMPRESSION: Normal CTA chest examination, without a demonstrated pulmonary embolism or arterial dissection. No acute pulmonary findings. Circumferential thickening of the distal esophagus. Possible esophagitis versus changes from GERD. Consider endoscopic correlation. Electronically Signed: Keyur Gamboa MD at 22:44 EST Reading Location ID and State: [facility] / [place] Tel , Service support , Physical Exam Const alert and no apparent distress HEENT head/scalp atraumatic and moist oral mucous membranes Resp normal respiratory effort and no retractions Neuro Sensorium / Orientation: awake and alert Assessment & Plan Assessment/Plan (1) COPD exacerbation: PLAN: Acute COVID 19 negative. CTA chest personally reviewed and showed no acute process. Currently on room air. DC methylprednisolone changed over to prednisone 40 mg daily. Check an ambulatory pulse ox. COPD is a suspected diagnosis as has been what she is told she has had before. However, patient has never had PFTs or seen a animal care supervisor before. I would be concerned patient has underlying asthma as a not release any clear evidence of COPD on her CAT scan. Recommend she follow-up with pulmonology to have PFTs andfurther chronic maintenance medications. She does state that she would require DuoNebs upon discharge. (2) Hypertension, accelerated: PLAN: Much improved at this time. On amlodipine and hydrochlorothiazide (3) Esophagitis: PLAN: Unclear significance. Incidental finding on CAT scan. Continue with PPI and follow-up with gastroenterology as outpatient. Patient states that she has had endoscopy in the past. Did discuss with patientthat this may be esophagitis but should have an EGD as outpatient. Patient has been modifying her diet anyways with soft diet and liquids. Recommend she continue with that. We will discharge with Protonix twice daily. PLAN: Plan DVT prophylaxis: Lovenox ordered. 06/05/23 1314 <Electronically signed by Nito Thorne DO> Cosigner Signature (if applicable): CC: ~ Signed [facility] Work Phone: 1(560) 192-603011-18-2023 History and physical note Author Alexandru Holden [facility] June 05, 2023 2:37am Note Date/Time June 04, 2023 11:31pm [facility] Medical Records Department [address] [place] [address] H&P Exam - Hospitalist 06/04/23 2331 MR#: [id number] Acct: [id number] Name: SAVANNAH IRVIN Rep #:[id number] : 1965 57 From: Alexandru Holden MD PCP: Dr. Ivette Welsh MD Status:AD M DANIELE Location: [facility]U [id number]- [id number] HPI - General General Date of Admission: 06/04/23 Date of Service: 06/04/23 Chief Complaint: sob HPI Narrative SAVANNAH IRVIN, is a 57 F with a significant history of tobacco abuse; COPD and hypertension who presents emergency department for shortness of breath. [facility] prior to presentation and was treatedfor strep pneumoniae. She received about 3 doses of antibiotics. Thereafter she was not happy with the care at [facility] so she left. was not good so she left. Ever since her shortness of breath has never gone away. Associated with her symptoms is wheezing above her baseline. Also she has some baseline cough that has worsened. Her cough is generally nonproductive occasionally with some bubbly sputum. She reports chills. She has not checked her temperature at home and did not know whether she had a fever or not. [facility] Medical History Acute pyelonephritis Alcohol abuse Asthma Chronic pain COPD (chronic obstructive pulmonary disease) Kidney stones Leukocytosis Pulmonary embolism Sleep apnea Smoker Stroke/cerebrovascular accident Substance abuse TIA (transient ischemic attack) Home Medications albuterol sulfate 2.5 mg/3 mL (0.083 %) solution for nebulization 2.5 mg (3 mL) inhalation Q4H PRN #25 vials 10/20/17 [Rx Last Taken 02/08/23] albuterol sulfate 90 mcg/actuation aerosol inhaler (Ventolin HFA) 1 - 2 puff inhalation PRN PRN Sob &/Or Wheezing 05/18/18 [History Last Taken 02/08/23] epinephrine 0.3 mg/0.3 mL injection, auto-injector 0.3 mg (0.3 mL) IM X1 ##1 01/21/19 [Rx Last Taken Unknown] ipratropium 0.5 mg-albuterol 3 mg (2.5 mg base)/3 mL nebulization soln 3 ml inhalation BID 08/31/21 [History Last Taken 02/08/23] ciprofloxacin HCl 500 mg tablet (Cipro) 500 mg PO BID 7 days #14 tabs 02/11/23 [Rx Last Taken Unknown] Allergy/AdvReac Type Severity Reaction Status Date / Time peanut Allergy Anaphylaxis Verified 06/04/23 20:23 tree nut [Tree Nut] Allergy Anaphylaxis Verified 06/04/23 20:23 Family History Mother COPD (chronic obstructive pulmonary disease) Hypertension Father Epilepsy Surgical History History of bilateral ligation of fallopian tubes History of cholecystectomy Social History household members: none Smoking Status: Current every day smoker tobacco type: cigarettes alcohol intake: former substance use type: marijuana ROS ROS Narrative Pertinent positives and pertinent negatives as noted in HPI. All other systems were reviewed and are negative Vital Signs Vital Signs Vital Signs: 06/04/23 20:23 06/04/23 20:58 06/04/23 21:40 Temperature 98 F Temperature Source Temporal Pulse Rate 108 H 110 H 86 Respiratory Rate 19 H 20 H 16 Respiratory Effort Respiratory Depth Respiratory Pattern Blood Pressure 211/109 H 198/102 H Blood Pressure Mean 143 134 Pulse Ox 94 97 Oxygen Delivery Method Room Air Room Air 06/04/23 22:57 06/04/23 23:00 06/04/23 23:03 Temperature Temperature Source Pulse Rate 81 76 Respiratory Rate 16 16 Respiratory Effort Non-Labored Respiratory Depth Normal Respiratory Pattern Normal Blood Pressure 193/95 H 206/107 H Blood Pressure Mean 127 140 Pulse Ox 95 97 Oxygen Delivery Method Room Air Room Air Room Air 06/04/23 23:14 Temperature Temperature Source Pulse Rate 87 Respiratory Rate 18 Respiratory Effort Respiratory Depth Respiratory Pattern Blood Pressure Blood Pressure Mean Pulse Ox Oxygen Delivery Method Weight Weight: 76.067 kg Body Mass Index (BMI) 28.8 Physical Exam Narrative General: Well-nourished, well-developed. Head: Normocephalic, atraumatic, no tenderness Eyes: Vision is grossly intact. EOMI ENT, no trauma, moist mucous membranes, no rhinorrhea Neck: Nontender, No thyromegaly. CVS: Regular rate and rhythm. S1-S2 present. No murmur, gallop or rub. Respiratory : Rhonchi and wheezes anteriorly. Diminished posteriorly. Chest wall nontender Abdomen: Soft, nontender, nondistended, normal bowel sounds, no masses : Deferred Back: Nontender, no CVA tenderness, no midline spinal tenderness. Extremities: Nontender full range of motion, no trauma Skin: Normal color, no trauma, abrasions Neuro: Alert, oriented, cranial nerves II through XII grossly intact. Psychiatry: Normal mood. Normal affect. Not depressed. Not anxious. Results Lab / Micro Data 06/04/23 21:30 06/04/23 21:30 Labs: Laboratory Results - last 24 hr 06/04/23 21:30: WBC 13.7 H, RBC 5.13, Hgb 14.2, Hct 45.1, MCV 87.9, MCH 27.7, MCHC 31.5 L, RDW Std Deviation 44.2 H, RDW Coeff of Madhu 13.7, Plt Count 558 H, MPV 9.3, Immature Gran % (Auto) 0.300, Neut % (Auto) 61.9, Lymph % (Auto) 24.9, Vermillion % (Auto) 8.1, Eos % (Auto) 4.2, Baso % (Auto) 0.6, Absolute Neuts (auto) 8.5 H, Absolute Lymphs (auto) 3.40, Nucleated RBC % 0, Sodium 141, Potassium 3.5, Chloride 106, Carbon Dioxide 29.0, Anion Gap 6, BUN 15, Creatinine 0.92, Estim Creat Clear Calc 58.96, Est GFR (MDRD) Af Amer 81, Est GFR (MDRD) Non-Af 67, BUN/Creatinine Ratio 16.3, Glucose 102, Calcium 9.1, Total Bilirubin 0.40, Direct Bilirubin 0.12, AST 14 L, ALT 18, Alkaline Phosphatase 114, Troponin I High Sens 12, Total Protein 7.9, Albumin 3.5, Globulin 4.4 H Micro: Microbiology 06/04/23 21:44 Nasal Secretion SARS-CoV-2 & FLU Antigen (Rapid) - Final Imagaing Radiology Impression Chest CTA 06/04/23 20:47 IMPRESSION: Normal CTA chest examination, without a demonstrated pulmonary embolism or arterial dissection. No acute pulmonary findings. Circumferential thickening of the distal esophagus. Possible esophagitis versus changes from GERD. Consider endoscopic correlation. Electronically Signed: Keyur Gamboa MD at 22:44 EST , Assessment & Plan Assessment/Plan (1) COPD exacerbation: PLAN: Plan COPD exacerbation CXR independently interpreted: No acute pulmonary findings. Circumferential thickening of the distal esophagus. Scheduled DuoNeb Albuterol as needed Solu-Medrol [id number] ordered Given the emergency department and continued. We will check procalcitonin. CBCreviewed showed elevation. Trend. Check strep pneumoniae Monitor BMP and CBC Esophagitis CTA with circumferential thickening of distal esophagus as above. IV Protonix x1 given the emergency department and continued. On discharge consider GI referral. Hypertensive urgency Reported previously on blood pressure medicine but blood pressure medicine was tapered down because of hypotension. Patient reports that she goes scan with hypertension and stop taking a blood pressure medication. We will start patienton 2 blood pressure medications at this time. As needed hydralazine ordered. Cautious titration of home blood pressure medications. DVT prophylaxis: Lovenox ordered. Time spent in the patient's overall evaluation,decision-making process, review of diagnostic data, adjustment of management, discussion with other providers, nursing and ancillary staff involved in patient's care documentation, 70 minutes. Charges/Coding Visit Charges Inpatient E&M: 19580 Init Hosp L3 06/05/23 0237 <Electronically signed by Alexandru Holden MD> Cosigner Signature (if applicable): CC: Dr. Alexandru Holden MD; Dr. Ivette Welsh MD~ Signed [facility] Work Phone: 1(234) 671-852011-18-2023 Discharge summary Author Idalia Sanchez [facility] June 05, 2023 12:15am Note Date/Time June 04, 2023 8:51pm [facility] Medical Records Department [address] [place] [id number] Emergency Department Summary 06/04/23 MR#: [id number] Acct: [id number] Name: SAVANNAH IRVIN SRIDHAR Rep #:[id number] : 1965 57 From: Idalia Sanchez MD PCP: Dr. Ivette Welsh MD Status:AD M DANIELE Location: [place] [address] HPI History of Present Illness Chief Complaint: Shortness of Breath Informant: patient Onset/Context/Timing Onset: Weeks Context: Gradual Onset Narrative Narrative: Patient present secondary to cough and shortness of breath. She states she was admitted to [facility] and cannot about a month ago with strep pneumonia. She got 3 doses of IV antibiotics and left the hospital because she was not happy with her care there. She states has had gradual worsening of her symptomsto include shortness of breath, cough, back pain. She states there is a couple times that she has had subjective fever and chills. [facility] Medical History Acute pyelonephritis Alcohol abuse Asthma Chronic pain COPD (chronic obstructive pulmonary disease) Kidney stones Leukocytosis Pulmonary embolism Sleep apnea Smoker Stroke/cerebrovascular accident Substance abuse TIA (transient ischemic attack) Home Medications albuterol sulfate 2.5 mg/3 mL (0.083 %) solution for nebulization 2.5 mg (3 mL) inhalation Q4H PRN #25 vials 10/20/17 [Rx Last Taken 02/08/23] albuterol sulfate 90 mcg/actuation aerosol inhaler (Ventolin HFA) 1 - 2 puff inhalation PRN PRN Sob &/Or Wheezing 05/18/18 [History Last Taken 02/08/23] epinephrine 0.3 mg/0.3 mL injection, auto-injector 0.3 mg (0.3 mL) IM X1 ##1 01/21/19 [Rx Last Taken Unknown] ipratropium 0.5 mg-albuterol 3 mg (2.5 mg base)/3 mL nebulization soln 3 ml inhalation BID 08/31/21 [History Last Taken 02/08/23] ciprofloxacin HCl 500 mg tablet (Cipro) 500 mg PO BID 7 days #14 tabs 02/11/23 [Rx Last Taken Unknown] Allergy/AdvReac Type Severity Reaction Status Date / Time peanut Allergy Anaphylaxis Verified 06/04/23 20:23 tree nut [Tree Nut] Allergy Anaphylaxis Verified 06/04/23 20:23 Family History Mother COPD (chronic obstructive pulmonary disease) Hypertension Father Epilepsy Surgical History History of bilateral ligation of fallopian tubes History of cholecystectomy Social History household members: none Smoking Status: Current every day smoker tobacco type: cigarettes alcohol intake: former substance use type: marijuana ROS ROS ED Constitutional Constitutional ED: Reports chills, fever(s) and subjective Eyes Eyes: Denies change in vision or discharge from eye(s) ENT ENT ED: Denies discharge from eye(s), rhinorrhea or sore throat Cardiovascular Cardiovascular: Denies chest pain or palpitations Respiratory/Chest Respiratory/Chest: Reports cough and dyspnea Gastrointestinal Gastrointestinal: Reports nausea and vomiting; Denies abdominal pain or diarrhea Genitourinary Genitourinary ED: Denies dysuria Musculoskeletal Musculoskeletal: Reports back pain; Denies extremity pain Integumentary Denies Abrasions or rash Neurologic Neurologic: Denies headache(s) or weakness Psychiatric Psychiatric: Denies anxiety or depression Allergic/Immunologic Allergic/Immunologic ED: Denies lip swelling or urticaria EXAM Physical Exam Const Vital Signs: 06/04/23 20:23 06/04/23 20:58 06/04/23 21:40 Temperature 98 F Temperature Source Temporal Pulse Rate 108 H 110 H 86 Respiratory Rate 19 H 20 H 16 Respiratory Effort Respiratory Depth Respiratory Pattern Blood Pressure 211/109 H 198/102 H Blood Pressure Mean 143 134 Pulse Ox 94 97 Oxygen Delivery Method Room Air Room Air 06/04/23 22:57 06/04/23 23:00 06/04/23 23:03 Temperature Temperature Source Pulse Rate 81 76 Respiratory Rate 16 16 Respiratory Effort Non-Labored Respiratory Depth Normal Respiratory Pattern Normal Blood Pressure 193/95 H 206/107 H Blood Pressure Mean 127 140 Pulse Ox 95 97 Oxygen Delivery Method Room Air Room Air Room Air Positive well nourished and well developed General Appearance ED: well developed HEENT Reports moist mucous membranes Eyes EOMs intact bilaterally Neck no lymphadenopathy Chest Wall inspection of chest normal and palpation of chest normal Resp Resp Narrative: Expiratory wheezes bilaterally. Cardio regular rhythm Rate: tachycardic GI non-tender Palpation: soft Extremity normal to inspection Neuro oriented x3 and no sensory deficits noted Motor Exam: strength 5/5 throughout Psych mental status grossly normal Skin no rashes or lesions noted MDM MDM MDM Narrative Medical decision making narrative: Patient placed on desk monitor. IV line established. Patient given aerosolsand Solu-Medrol. EKG obtained to evaluate for cardiac arrhythmia/ischemia. Labwork obtained to evaluate for leukocytosis, anemia, and electrolyte derangement. CTA of the chest obtained given patient's ongoing symptoms with a history of PE and not on anticoagulation. History & Record Review Discussion w/independent historian: Patient Lab Data Attestation: I reviewed the patient's lab results. Labs: Laboratory Results - last 24 hr 06/04/23 21:30 WBC 13.7 H RBC 5.13 Hgb 14.2 Hct 45.1 MCV 87.9 MCH 27.7 MCHC 31.5 L RDW Std Deviation 44.2 H RDW Coeff of Madhu 13.7 Plt Count 558 H MPV 9.3 Immature Gran % (Auto) 0.300 Neut % (Auto) 61.9 Lymph % (Auto) 24.9 Vermillion % (Auto) 8.1 Eos % (Auto) 4.2 Baso % (Auto) 0.6 Absolute Neuts (auto) 8.5 H Absolute Lymphs (auto) 3.40 Nucleated RBC % 0 Sodium 141 Potassium 3.5 Chloride 106 Carbon Dioxide 29.0 Anion Gap 6 BUN 15 Creatinine 0.92 Estim Creat Clear Calc 58.96 Est GFR (MDRD) Af Amer 81 Est GFR (MDRD) Non-Af 67 BUN/Creatinine Ratio 16.3 Glucose 102 Calcium 9.1 Total Bilirubin 0.40 Direct Bilirubin 0.12 AST 14 L ALT 18 Alkaline Phosphatase 114 Troponin I High Sens 12 Total Protein 7.9 Albumin 3.5 Globulin 4.4 H Radiography Diagnostic Testing: Clinical Impression(s) from Imaging Studies Chest CTA 06/04/23 20:47 IMPRESSION: Normal CTA chest examination, without a demonstrated pulmonary embolism or arterial dissection. No acute pulmonary findings. Circumferential thickening of the distal esophagus. Possible esophagitis versus changes from GERD. Consider endoscopic correlation. Electronically Signed: Keyur Gamboa MD at 22:44 EST Reading Location ID and State: [facility] / [place] Tel , Service support , EKG Initial EKG: Attestation: I personally reviewed and interpreted this EKG as follows: Interpretation: Sinus Rhythm (Sinus 87 with no acute ischemia.) Treatment and Re-Evaluation :: CBC was a white count of 13.7 with normal differential. Hemoglobin is 14.2. Chemistry studies unremarkable. LFTs unremarkable and troponin is normal at 12. COVID and influenza swab is negative. EKG is sinus at 87 with no acute ischemia. CTA of the chest reveals no evidence of pulmonary embolism. No acutepulmonary findings. There is circumferential thickening of the distal esophagus. Patient does report intermittent difficulty swallowing but states she was able to drink water prior to arrival. I will give her a dose of Protonix. Patient's blood pressure came down slightly but is now back up to 200systolic. She will be given hydralazine. On repeat exam she has expiratory wheezes bilaterally but does have better air movement when compared to initial exam. She be given another round of aerosols. Given her COPD exacerbation I will give her a dose of doxycycline. I will speak with hospitalist regarding admission for aerosol treatments as well as blood pressure treatment. Discharge Plan Triage Chief Complaint: Shortness of Breath ED Provider: Idalia Sanchez Dx/Rx/DC Orders Clinical Impression: COPD exacerbation, Gastroesophageal reflux disease, Hypertension Prescriptions: No Action albuterol sulfate 2.5 MG/3 ML solution for nebulization 2.5 mg INHALATION Q4H PRN Qty: 25 0RF Rx Instructions: Use q4 hours and PRN for wheezing albuterol sulfate [Ventolin HFA] 18 GM HFA aerosol inhaler 1 - 2 puff inhalation PRN PRN (Reason: Sob &/Or Wheezing) Patient Comments: inhale 2 puffs by mouth every 4 hours as directed if needed for wheezing or shortness of breath epinephrine 0.3 MG syringe 0.3 mg IM X1 Qty: 1 1RF ipratropium-albuterol 0.5 mg-3 mg(2.5 mg base)/3 mL solution for nebulization 3 ml inhalation BID Patient Comments: inhale contents of 1 vial in nebulizer as directed every 6 hours ... (REFER TO PRESCRIPTION NOTES). ciprofloxacin HCl [Cipro] 500 mg tablet 500 mg PO BID 7 Days Qty: 14 0RF Hold Instructions: NOT TAKING Primary Care Provider: Ivette Welsh Referrals: Ivette Welsh MD [Primary Care Provider] - Disposition Disposition: Acute Care Hospital [facility] What to do if you have Problems For any increased pain, shortness of breath, bleeding, nausea or vomiting, chestpain, or any unexpected problems, contact your Primary Care Provider. Call [facility] ([phone]) or report to the closest Emergency Room. Call 911 if necessary. 06/05/23 0015 <Electronically signed by Idalia Sanchez MD> Cosigner Signature (if applicable): CC: Dr. Ivette Welsh MD ~ Signed [facility] Work Phone: [phone]) 294-583011-17-2023 Discharge summary Author Idalia Sanchez [facility] June 05, 2023 12:15am Note Date/Time June 04, 2023 8:51pm [facility] Medical Records Department [address] [place] [address] Emergency Department Summary 06/04/23 MR#: [id number] Acct: [id number] Name: SAVANNAH IRVIN SRIDHAR Rep #:[id number] : 1965 57 From: Idalia Sanchez MD PCP: Dr. Ivette Welsh MD Status:AD M DANIELE Location: [place] [address] HPI History of Present Illness Chief Complaint: Shortness of Breath Informant: patient Onset/Context/Timing Onset: Weeks Context: Gradual Onset Narrative Narrative: Patient present secondary to cough and shortness of breath. She states she was admitted to [facility] and cannot about a month ago with strep pneumonia. She got 3 doses of IV antibiotics and left the hospital because she was not happy with her care there. She states has had gradual worsening of her symptomsto include shortness of breath, cough, back pain. She states there is a couple times that she has had subjective fever and chills. [facility] Medical History Acute pyelonephritis Alcohol abuse Asthma Chronic pain COPD (chronic obstructive pulmonary disease) Kidney stones Leukocytosis Pulmonary embolism Sleep apnea Smoker Stroke/cerebrovascular accident Substance abuse TIA (transient ischemic attack) Home Medications albuterol sulfate 2.5 mg/3 mL (0.083 %) solution for nebulization 2.5 mg (3 mL) inhalation Q4H PRN #25 vials 10/20/17 [Rx Last Taken 02/08/23] albuterol sulfate 90 mcg/actuation aerosol inhaler (Ventolin HFA) 1 - 2 puff inhalation PRN PRN Sob &/Or Wheezing 05/18/18 [History Last Taken 02/08/23] epinephrine 0.3 mg/0.3 mL injection, auto-injector 0.3 mg (0.3 mL) IM X1 ##1 01/21/19 [Rx Last Taken Unknown] ipratropium 0.5 mg-albuterol 3 mg (2.5 mg base)/3 mL nebulization soln 3 ml inhalation BID 08/31/21 [History Last Taken 02/08/23] ciprofloxacin HCl 500 mg tablet (Cipro) 500 mg PO BID 7 days #14 tabs 02/11/23 [Rx Last Taken Unknown] Allergy/AdvReac Type Severity Reaction Status Date / Time peanut Allergy Anaphylaxis Verified 06/04/23 20:23 tree nut [Tree Nut] Allergy Anaphylaxis Verified 06/04/23 20:23 Family History Mother COPD (chronic obstructive pulmonary disease) Hypertension Father Epilepsy Surgical History History of bilateral ligation of fallopian tubes History of cholecystectomy Social History household members: none Smoking Status: Current every day smoker tobacco type: cigarettes alcohol intake: former substance use type: marijuana ROS ROS ED Constitutional Constitutional ED: Reports chills, fever(s) and subjective Eyes Eyes: Denies change in vision or discharge from eye(s) ENT ENT ED: Denies discharge from eye(s), rhinorrhea or sore throat Cardiovascular Cardiovascular: Denies chest pain or palpitations Respiratory/Chest Respiratory/Chest: Reports cough and dyspnea Gastrointestinal Gastrointestinal: Reports nausea and vomiting; Denies abdominal pain or diarrhea Genitourinary Genitourinary ED: Denies dysuria Musculoskeletal Musculoskeletal: Reports back pain; Denies extremity pain Integumentary Denies Abrasions or rash Neurologic Neurologic: Denies headache(s) or weakness Psychiatric Psychiatric: Denies anxiety or depression Allergic/Immunologic Allergic/Immunologic ED: Denies lip swelling or urticaria EXAM Physical Exam Const Vital Signs: 06/04/23 20:23 06/04/23 20:58 06/04/23 21:40 Temperature 98 F Temperature Source Temporal Pulse Rate 108 H 110 H 86 Respiratory Rate 19 H 20 H 16 Respiratory Effort Respiratory Depth Respiratory Pattern Blood Pressure 211/109 H 198/102 H Blood Pressure Mean 143 134 Pulse Ox 94 97 Oxygen Delivery Method Room Air Room Air 06/04/23 22:57 06/04/23 23:00 06/04/23 23:03 Temperature Temperature Source Pulse Rate 81 76 Respiratory Rate 16 16 Respiratory Effort Non-Labored Respiratory Depth Normal Respiratory Pattern Normal Blood Pressure 193/95 H 206/107 H Blood Pressure Mean 127 140 Pulse Ox 95 97 Oxygen Delivery Method Room Air Room Air Room Air Positive well nourished and well developed General Appearance ED: well developed HEENT Reports moist mucous membranes Eyes EOMs intact bilaterally Neck no lymphadenopathy Chest Wall inspection of chest normal and palpation of chest normal Resp Resp Narrative: Expiratory wheezes bilaterally. Cardio regular rhythm Rate: tachycardic GI non-tender Palpation: soft Extremity normal to inspection Neuro oriented x3 and no sensory deficits noted Motor Exam: strength 5/5 throughout Psych mental status grossly normal Skin no rashes or lesions noted MDM MDM MDM Narrative Medical decision making narrative: Patient placed on desk monitor. IV line established. Patient given aerosolsand Solu-Medrol. EKG obtained to evaluate for cardiac arrhythmia/ischemia. Labwork obtained to evaluate for leukocytosis, anemia, and electrolyte derangement. CTA of the chest obtained given patient's ongoing symptoms with a history of PE and not on anticoagulation. History & Record Review Discussion w/independent historian: Patient Lab Data Attestation: I reviewed the patient's lab results. Labs: Laboratory Results - last 24 hr 06/04/23 21:30 WBC 13.7 H RBC 5.13 Hgb 14.2 Hct 45.1 MCV 87.9 MCH 27.7 MCHC 31.5 L RDW Std Deviation 44.2 H RDW Coeff of Madhu 13.7 Plt Count 558 H MPV 9.3 Immature Gran % (Auto) 0.300 Neut % (Auto) 61.9 Lymph % (Auto) 24.9 Vermillion % (Auto) 8.1 Eos % (Auto) 4.2 Baso % (Auto) 0.6 Absolute Neuts (auto) 8.5 H Absolute Lymphs (auto) 3.40 Nucleated RBC % 0 Sodium 141 Potassium 3.5 Chloride 106 Carbon Dioxide 29.0 Anion Gap 6 BUN 15 Creatinine 0.92 Estim Creat Clear Calc 58.96 Est GFR (MDRD) Af Amer 81 Est GFR (MDRD) Non-Af 67 BUN/Creatinine Ratio 16.3 Glucose 102 Calcium 9.1 Total Bilirubin 0.40 Direct Bilirubin 0.12 AST 14 L ALT 18 Alkaline Phosphatase 114 Troponin I High Sens 12 Total Protein 7.9 Albumin 3.5 Globulin 4.4 H Radiography Diagnostic Testing: Clinical Impression(s) from Imaging Studies Chest CTA 06/04/23 20:47 IMPRESSION: Normal CTA chest examination, without a demonstrated pulmonary embolism or arterial dissection. No acute pulmonary findings. Circumferential thickening of the distal esophagus. Possible esophagitis versus changes from GERD. Consider endoscopic correlation. Electronically Signed: Keyur Gamboa MD at 22:44 EST Reading Location ID and State: [facility] / [place] Tel , Service support , EKG Initial EKG: Attestation: I personally reviewed and interpreted this EKG as follows: Interpretation: Sinus Rhythm (Sinus 87 with no acute ischemia.) Treatment and Re-Evaluation :: CBC was a white count of 13.7 with normal differential. Hemoglobin is 14.2. Chemistry studies unremarkable. LFTs unremarkable and troponin is normal at 12. COVID and influenza swab is negative. EKG is sinus at 87 with no acute ischemia. CTA of the chest reveals no evidence of pulmonary embolism. No acutepulmonary findings. There is circumferential thickening of the distal esophagus. Patient does report intermittent difficulty swallowing but states she was able to drink water prior to arrival. I will give her a dose of Protonix. Patient's blood pressure came down slightly but is now back up to 200systolic. She will be given hydralazine. On repeat exam she has expiratory wheezes bilaterally but does have better air movement when compared to initial exam. She be given another round of aerosols. Given her COPD exacerbation I will give her a dose of doxycycline. I will speak with hospitalist regarding admission for aerosol treatments as well as blood pressure treatment. Discharge Plan Triage Chief Complaint: Shortness of Breath ED Provider: Idalia Sanchez Dx/Rx/DC Orders Clinical Impression: COPD exacerbation, Gastroesophageal reflux disease, Hypertension Prescriptions: No Action albuterol sulfate 2.5 MG/3 ML solution for nebulization 2.5 mg INHALATION Q4H PRN Qty: 25 0RF Rx Instructions: Use q4 hours and PRN for wheezing albuterol sulfate [Ventolin HFA] 18 GM HFA aerosol inhaler 1 - 2 puff inhalation PRN PRN (Reason: Sob &/Or Wheezing) Patient Comments: inhale 2 puffs by mouth every 4 hours as directed if needed for wheezing or shortness of breath epinephrine 0.3 MG syringe 0.3 mg IM X1 Qty: 1 1RF ipratropium-albuterol 0.5 mg-3 mg(2.5 mg base)/3 mL solution for nebulization 3 ml inhalation BID Patient Comments: inhale contents of 1 vial in nebulizer as directed every 6 hours ... (REFER TO PRESCRIPTION NOTES). ciprofloxacin HCl [Cipro] 500 mg tablet 500 mg PO BID 7 Days Qty: 14 0RF Hold Instructions: NOT TAKING Primary Care Provider: Ivette Welsh Referrals: Ivette Welsh MD [Primary Care Provider] - Disposition Disposition: Acute Care [facility] What to do if you have Problems For any increased pain, shortness of breath, bleeding, nausea or vomiting, chestpain, or any unexpected problems, contact your Primary Care Provider. Call [facility] ([phone]) or report to the closest Emergency Room. Call 911 if necessary. 06/05/23 0015 <Electronically signed by Idalia Sanchez MD> Cosigner Signature (if applicable): CC: Dr. Ivette Welsh MD ~ Signed [facility] Work Phone: 1(864) 110-160511-01-2023 History of Present illness Narrative* Radha Victoria RN - 05/19/2023 1:34 PM EDT TRANSITION CARE MANAGEMENT (TCM) FOLLOW-UP NOTE Provider Action/FYI Discharge Network Status: In-Network Discharge Summary: Pt discharged from [facility] on 05/01/23. LEFT AMA Admitted for: Difficulty breathing, Acute hypoxic respiratory failure Concerns: Attempted to reach pt for TCM follow up, no answer, unable to leave [employer] plan for next outreach: Will continue to follow during TCM 30 day period RYAN Education Ordered -: No Signature Radha Victoria RN May 19, 2023 [facility] History of Present illness Narrative* Spataro, Damaris Mirella, RADHA - 05/12/2023 1:37 PM EDT TRANSITION CARE MANAGEMENT (TCM) FOLLOW-UP NOTE Provider Action/FYI Patient identified by name and date of : NO No vm set up, unable to leave a message. Discharge Network Status: In-Network Discharge Summary: Pt discharged from [facility] on 05/01/23. Admitted for: Difficulty breathing Acute hypoxic respiratory failure Severe sepsis Streptococcal pneumonia Left lower rib cage pain GERD with dysphagia Previous history of PE/DVTs, however off of Xarelto due to massive GI bleed history Active drug abuse, denies IV abuse though Active tobacco abuse Concerns: [employer] plan for next outreach: f/u in 2 weeks. RYAN Education Ordered -: No Signature Damaris Francis RN May 12, 2023 documented [facility] History of Present illness Narrative* Meli Olsen RN - 05/04/2023 10:04 AM EDT TRANSITIONAL CARE MANAGEMENT (TCM) COMMUNITY MONITORING PROGRAM Provider Action/FYI: Initial TCM Outgreach - 2nd attempt Pt has no contact number Left general messages left for sister Maritza Light, yadiel Smith for patient to call back PCP office for F/U Reached friend Lurdes and obtained contact number [phone] attempted to call bur box not set up SUMMARY: HR 21 Discharge Network Status: In-Network Discharge Pt discharged from [facility] on 05/01/23. Admitted for: Difficulty breathing Acute hypoxic respiratory failure Severe sepsis Streptococcal pneumonia Left lower rib cage pain GERD with dysphagia Previous history of PE/DVTs, however off of Xarelto due to massive GI bleed history Active drug abuse, denies IV abuse though Active tobacco abuse Hospital course taken from D/C summary and AVS PMHX active drug abuse/methamphetamines inhalational route (denies IV drug abuse), GERD with dysphagia, history of PE DVTs not on Xarelto as patient had a massive GI bleed history, active smoking presented with difficulty in breathing for few days to [facility] ED. Patient diagnosed with streptococcal pneumonia, received IV antibiotics, patient breathing was getting better but still not at the baseline. Urinary tox screen positive for amphetamines. However patient today was extremely adamant in leaving hospital, strongly counseled her regarding IV antibiotic need and oxygen therapy, patient was very uninterested in staying in the hospital, left AGAINST MEDICAL ADVICE Contact made with patient: No - 2nd unsuccessful attempt - end outreach and close encounter Outreach ended * Meli Olsen RN - 05/03/2023 1:03 PM EDT TCM Home Visit Referral Source of Stratification: TCM [facility] Hospital Admission Status: Discharged Readmission Risk Score: 21 SAMMI Score: 3 Patient meets program referral criteria: No Patient does not qualify for High Risk TCM Home Visit program due to: Discharged home, does not meet program criteria TRANSITIONAL CARE MANAGEMENT (TCM) COMMUNITY MONITORING PROGRAM Provider Action/FYI: Initial TCM Outreach Pt has no contact number - Left genral message fro siter and spouse to have patient return call [phone] today until 4 or tomorrow after 0800 Not used mychart at all since 01/25/2020 unable to contact patient via [facility] Speech recommendations : Alternate bites and sips, Self-monitoring, Small Bite/Sip, Maintain an upright position 20-30 minutes following all oral intake, Anti-Reflux precautions SUMMARY: Discharge Network Status: In-Network Discharge Pt discharged from [facility] on 05/01/23. Admitted for: Difficulty breathing Acute hypoxic respiratory failure Severe sepsis Streptococcal pneumonia Left lower rib cage pain GERD with dysphagia Previous history of PE/DVTs, however off of Xarelto due to massive GI bleed history Active drug abuse, denies IV abuse though Active tobacco abuse Hospital course taken from D/C summary and AVS PMHX active drug abuse/methamphetamines inhalational route (denies IV drug abuse), GERD with dysphagia, history of PE DVTs not on Xarelto as patient had a massive GI bleed history, active smoking presented with difficulty in breathing for few days to [facility] ED. Patient diagnosed with streptococcal pneumonia, received IV antibiotics, patient breathing was getting better but still not at the baseline. Urinary tox screen positive for amphetamines. However patient today was extremely adamant in leaving hospital, strongly counseled her regarding IV antibiotic need and oxygen therapy, patient was very uninterested in staying in the hospital, left AGAINST MEDICAL ADVICE Contact made with patient: No - next outreach attempt will be on next day Outreach ended Meli Olsen RN, BSN May 03, 2023 1:03 PM documented in this encounterC[facility]10-14-2023 NoteHNO ID: [id number] Author: Vane Rosas MD Service: General Internal Medicine Author Type: Physician Type: Progress Notes Filed: 05/01/2023 12:46 PM Note Text: INPATIENT PROGRESS NOTE SERVICE DATE: 05/01/2023 SERVICE TIME: 12:39 PM PRIMARY SERVICE: Hospital Medicine Subjective Patient seen and examined bedside this morning. Was a bit emotional today, stated that her son takes care of her, continues to take inhalational drugs like methamphetamine, last done was 2 days ago before hospitalization. Her son is in rehab, and he is trying to provide emotional support to her. Current Facility-Administered Medications Medication Dose Route Frequency NaCl 0.9% iv flush bag 20 mL INTRAVENOUS PRN NaCl 0.9% iv infusion 100 mL/hr INTRAVENOUS CONTINUOUS albuterol 2.5 mg /3 mL (0.083 %) 2.5 mg (PROVENTIL) 2.5 mg INHALATION q 4 H PRN ipratropium-albuterol 3 mL nebulizer solution (DUONEB) 3 mL INHALATION QID docusate sodium 100 mg cap(s) (COLACE) 100 mg ORAL BID PRN acetaminophen 650 mg tab(s) (TYLENOL) 650 mg ORAL q 6 H PRN melatonin 3 mg tab(s) 3 mg ORAL DAILY (8 PM) nicotine 21 mg/24 hr 1 Patch (NICODERM) 1 Patch TRANSDERMAL DAILY PRN And nicotine -- REMOVE patch OTHER DAILY And nicotine - verify patch OTHER q 8 H cefTRIAXone 1 g in D5W 100 mL Vial-Bag (ROCEPHIN) 1 g INTRAVENOUS q 24 H ondansetron (PF) 4 mg injection (ZOFRAN) 4 mg INTRAVENOUS q 6 H PRN aluminum-magnesium hydroxide-simethicone 200-200-20 mg/5 mL 30 mL 30 mL ORAL q 6 H PRN morphine 1 mg injection 1 mg INTRAVENOUS q [address] 40 mg tab(s) (PROTONIX) 40 mg ORAL DAILY guaiFENesin 600 mg ER tab(s) (MUCINEX) 600 mg ORAL q 12 H benzonatate 100 mg cap(s) (TESSALON PERLE) 100 mg ORAL TID Objective PHYSICAL EXAM: BP 129/76 Pulse 91 Temp (Src) 98.2 (Oral) Resp 20 Ht 5' 5 (1.65m) Wt 182 lb (82.6kg) SpO2 90% LMP 02/16/2010 BMI 30.29 kg/(m2). O2 Therapy: Room Air, Liters: 4 GENERAL APPEARANCE: Not in acute distress. EXTREMITIES: No cyanosis, clubbing. No edema HEENT: Normocephalic and atraumatic. No scleral icterus. CALDERON +, Oral cavity exam grossly normal NECK: Supple. Trachea is midline. No thyromegaly. No lymphadenopathy or tenderness. CHEST: Symmetric. Nontender to palpation. Breath sounds equal bilaterally. no wheezing. HEART: Regular heart rate. S1-S2 heard. No gallops/murmurs/rubs ABDOMEN: Soft, flat, and benign. No mass, tenderness, guarding, or rebound. No organomegaly or hernia. Bowel sounds are present. No CVA tenderness or flank mass. NEUROLOGIC: No gross focal sensory or motor deficits are noted. PSYCHIATRIC: Appropriate mood and affect. DATA: LABORATORY TESTS: CBC: Recent Labs 05/01/2363604/30/23 0611 04/29/23 0910 WBC 12.71* 16.09* 24.86* HB 12.9 10.7* 13.3 PLT 424* 371 457* MCV 88.8 89.2 86.3 NEUTP 69.9 74.9 86.2 ABSNEUT 8.89* 12.03* 21.44* LYMPHP 16.3 15.8 6.5 CHEM: Recent Labs 05/01/23 0637 04/30/23 0611 04/29/23 0910 NA 142 138 138 K 4.9 4.6 4.2 CA 9.0 8.4* 9.2 ANION 5 3* 6 CHLOR 107 105 103 CO2 30 30 29 GLUC 111* 116* 113* BUN 10 13 12 CREAT 0.81 1.05* 0.86 HEPATIC: Recent Labs 04/29/23 0910 ALT 16 AST 27 TBILI 0.4 ALKPHOS 151* ALB 3.4 TPROT 6.9 URINALYSIS: Recent Labs 04/30/23 1412 SPGR 1.009 UBACTERIA Rare* LEUKEST 1+* UWBC >25 /HPF* URBC 6-10 /HPF* UHB 1+* UPROT Negative UGLUC Negative UKET Negative COAG: No results for input(s): APTT, INR in the last 168 hours. CARDIAC: No results for input(s): CKMB, CKMBP, TROPT, PBNP in the last 168 hours. DATA: Diagnostic tests reviewed for today's visit: Most recent labs and imaging results. Most recent EKG Urine Culture: Positive Micro-30 Days Procedure Component Value Units Date/Time Sputum Culture with Gram Stain (RESPIRATORY CULTURE + STAIN) [[id number]] (Abnormal) Collected: 04/30/23552 Order Status: Completed Specimen: Micro Specimen from SPUTUM Updated: 04/30/231933 Gram Stain Many Polymorphonuclear leukocytes Moderate Epithelial cells Many Gram positive cocci Urine Streptococcus Pneumoniae Ag [[id number]] (Abnormal) Collected: 04/29/232151 Order Status: Completed Specimen: Urine Random Updated: 04/29/232225 Strep pneumo AG Result Positive for Streptococcus pneumoniae antigen. Blood Culture: Positive Micro-30 Days Procedure Component Value Units Date/Time Sputum Culture with Gram Stain (RESPIRATORY CULTURE + STAIN) [[id number]] (Abnormal) Collected: 04/30/23552 Order Status: Completed Specimen: Micro Specimen from SPUTUM Updated: 04/30/231933 Gram Stain Many Polymorphonuclear leukocytes Moderate Epithelial cells Many Gram positive cocci Urine Streptococcus Pneumoniae Ag [[id number]] (Abnormal) Collected: 04/29/232151 Order Status: Completed Specimen: Urine Random Updated: 04/29/232225 Strep pneumo AG Result Positive for Streptococcus pneumoniae antigen. (more content not included)...[facility]10-14-2023 NoteHNO ID: [id number] Author: Note, Interface Service: ? Author Type: ? Type: Progress Notes Filed: 05/01/2023 5:48 AM Note Text: Epic Scheduled Downtime: 05/01/2023 1:00:00 AM to 05/01/2023 1:28:00 [facility]10-13-2023 NoteHNO ID: [id number] Author: Letha Dunlap LSW Service: Care Management Author Type: Child Psychometrist Type: Care Mgt Progress Note Filed: 04/30/2023 3:49 PM Note Text: CARE MANAGEMENT PROGRESS NOTE SERVICE DATE: 04/30/2023 SERVICE TIME: 3:39 PM LOS: 1 day Chart reviewed. Pt admitted from home with s/o for acute respiratory failure with hypoxia. She is currently on 3L 02, baseline is room air. She is on IV abx. She is independent at home. She had a MBS today. Diet recommended: regular consistency, thin liquids. Plan is home, no anticipated needs at this time. SIGNATURE: GUERA Hinojosa PATIENT NAME: Savannah Irvin DATE: April 30, 2023 TIME: 3:39 PM PAGER/CONTACT #:[facility]10-13-2023 NoteHNO ID: [id number] Author: Vane Rosas MD Service: General Internal Medicine Author Type: Physician Type: Progress Notes Filed: 04/30/2023 3:44 PM Note Text: INPATIENT PROGRESS NOTE SERVICE DATE: 04/30/2023 SERVICE TIME: 3:05 PM PRIMARY SERVICE: Hospital Medicine Subjective Patient seen and examined bedside this morning. He reports left-sided superficial chest pains on her left lower ribs, some amount of difficulty breathing but better than yesterday. Also stated that in 2015 she had blood clots in the lungs, however later Xarelto was stopped given her GI bleed issues. Current Facility-Administered Medications Medication Dose Route Frequency NaCl 0.9% iv flush bag 20 mL INTRAVENOUS PRN NaCl 0.9% iv infusion 100 mL/hr INTRAVENOUS CONTINUOUS albuterol 2.5 mg /3 mL (0.083 %) 2.5 mg (PROVENTIL) 2.5 mg INHALATION q 4 H PRN ipratropium-albuterol 3 mL nebulizer solution (DUONEB) 3 mL INHALATION QID docusate sodium 100 mg cap(s) (COLACE) 100 mg ORAL BID PRN acetaminophen 650 mg tab(s) (TYLENOL) 650 mg ORAL q 6 H PRN melatonin 3 mg tab(s) 3 mg ORAL DAILY (8 PM) nicotine 21 mg/24 hr 1 Patch (NICODERM) 1 Patch TRANSDERMAL DAILY PRN And nicotine -- REMOVE patch OTHER DAILY And nicotine - verify patch OTHER q 8 H cefTRIAXone 1 g in D5W 100 mL Vial-Bag (ROCEPHIN) 1 g INTRAVENOUS q 24 H ondansetron (PF) 4 mg injection (ZOFRAN) 4 mg INTRAVENOUS q 6 H PRN aluminum-magnesium hydroxide-simethicone 200-200-20 mg/5 mL 30 mL 30 mL ORAL q 6 H PRN morphine 1 mg injection 1 mg INTRAVENOUS q [address] 40 mg tab(s) (PROTONIX) 40 mg ORAL DAILY Objective PHYSICAL EXAM: BP 102/61 Pulse 88[Simultaneous filing. User may not have seen previous data.[ Temp (Src) 99.1 (Temporal) Resp 20[Simultaneous filing. User may not have seen previous data.[ Ht 5' 5 (1.65m) Wt 178 lb 8 oz (81.0kg) SpO2 95% LMP 02/16/2010 BMI 29.70 kg/(m2). O2 Therapy: Nasal Cannula, Liters: 3 Constitutional: Appearance: Normal appearance. She is ill-appearing. HENT: Head: Normocephalic and atraumatic. Mouth/Throat: Mouth: Mucous membranes are dry. Pharynx: Oropharynx is clear. Eyes: Extraocular Movements: Extraocular movements intact. Conjunctiva/sclera: Conjunctivae normal. Pupils: Pupils are equal, round, and reactive to light. Cardiovascular: Rate and Rhythm: Normal rate and regular rhythm. Pulmonary: Effort: Pulmonary effort is normal. Breath sounds: Wheezing and rhonchi present. Abdominal: General: Bowel sounds are normal. There is no distension. Palpations: Abdomen is soft. Tenderness: There is no abdominal tenderness. Musculoskeletal: General: Normal range of motion. Skin: General: Skin is warm and dry. Neurological: General: No focal deficit present. Mental Status: She is alert and oriented to person, place, and time. Mental status is at baseline. DATA: LABORATORY TESTS: CBC: Recent Labs 04/30/23 0611 04/29/23 0910 WBC 16.09* 24.86* HB 10.7* 13.3 PLT 371 457* MCV 89.2 86.3 NEUTP 74.9 86.2 ABSNEUT 12.03* 21.44* LYMPHP 15.8 6.5 CHEM: Recent Labs 04/30/23 0611 04/29/23 0910 NA 138 138 K 4.6 4.2 CA 8.4* 9.2 ANION 3* 6 CHLOR 105 103 CO2 30 29 GLUC 116* 113* BUN 13 12 CREAT 1.05* 0.86 HEPATIC: Recent Labs 04/29/23 0910 ALT 16 AST 27 TBILI 0.4 ALKPHOS 151* ALB 3.4 TPROT 6.9 URINALYSIS: Recent Labs 04/30/23 1412 SPGR 1.009 UBACTERIA Rare* LEUKEST 1+* UWBC >25 /HPF* URBC 6-10 /HPF* UHB 1+* UPROT Negative UGLUC Negative UKET Negative COAG: No results for input(s): APTT, INR in the last 168 hours. CARDIAC: No results for input(s): CKMB, CKMBP, TROPT, PBNP in the last 168 hours. DATA: Diagnostic tests reviewed for today's visit: Most recent labs and imaging results. Most recent EKG Urine Culture: Positive Micro-30 Days Procedure Component Value Units Date/Time Urine Streptococcus Pneumoniae Ag [[id number]] (Abnormal) Collected: 04/29/232151 Order Status: Completed Specimen: Urine Random Updated: 04/29/232225 Strep pneumo AG Result Positive for Streptococcus pneumoniae antigen. Blood Culture: Positive Micro-30 Days Procedure Component Value Units Date/Time Urine Streptococcus Pneumoniae Ag [[id number]] (Abnormal) Collected: 04/29/232151 Order Status: Completed Specimen: Urine Random Updated: 04/29/232225 Strep pneumo AG Result Positive for Streptococcus pneumoniae antigen. Medication and Non-Pharmacologic VTE Prophylaxis/Anticoagulants 04/29/23 1200 activity - mobilize patient (ms,or) VTE Prophylaxis: VTE prophylaxis appropriate Assesment: Acute respiratory failure with hypoxia/severe sepsis/streptococcal pneumonia - Continue while admitted IV Rocephin and p.o. azithromycin. - DuoNebs 4 times daily. - Albuterol aerosol q 4 hrs prn SOB, wheezing or hypoxia. -Tylenol as needed fever or mild/moderate pain -Morphine IV a (more content not included)...[facility]08-07-2023 Hospital Discharge instructions Patient Education 02/22/2023 14:25:10 Chest Pain, Uncertain Cause Uncertain Causes of Chest Pain Chest pain can happen for a number of reasons. Sometimes the cause can't be determined. If your condition does not seem serious, and your pain does not appear to be coming from your heart, your healthcare provider may recommend watching it closely. Sometimes the signs of a serious problem take moretime to appear. Many problems not related to your heart can cause chest pain. These include: Musculoskeletal. Costochondritis is an inflammation of the tissues around the ribs that can occur from trauma or overuse injuries, or a strain of the muscles of the chest wall Respiratory. Pneumonia, collapsed lung (pneumothorax), or inflammation of the lining of the chest and lungs (pleurisy) Gastrointestinal. Esophageal reflux, heartburn, ulcers, or gallbladder disease Anxiety and panic disorders Nerve compression and inflammation Rare miscellaneous problems such as aortic aneurysm (a swelling of the large artery coming out of the heart) or pulmonary embolism (a blood clot in the lungs) Home care After your visit, follow these recommendations: Rest today and avoid strenuous activity. Take any prescribed medicine as directed. Be aware of any recurrent chest pain and notice any changes Follow-up care Follow up with your healthcare provider if you do not start to feel better within 24 hours, or as advised. Call 911 Call 911 if any of these occur: A change in the type of pain: if it feels different, becomes more severe, lasts longer, or begins to spread into your shoulder, arm, neck, jaw or back Shortness of breath or increased pain with breathing Weakness, dizziness, or fainting Rapid heart beat Crushing sensation in your chest When to seek medical advice Call your healthcare provider right away if any of the following occur: Cough with dark colored sputum (phlegm) or blood Fever of 100.4 F (38 C) or higher, or as directed by your healthcare provider Swelling, pain or redness in one leg [id number] [employer]. [address] [place] [address]33. All rights reserved. This information is not intended as a substitute for professional medical care. Always follow yourhealthcare professional's instructions. Follow Up Care 02/22/2023 11:47:18 With:KENISHA ABBASI Address: [address] [place] [phone] Business (1) When:2-4 days Comments:Schedule appointment for close follow-up.Position of comfort, limit activity as tolerated.Use Tylenol, Advil or Aleve for pain as needed.Resume all routine medications.Return to the ED if symptoms worsen. [facility] 08-07-2023 Note ORIGINAL EXAMINATION: ONE XRAY VIEW OF THE CHEST TECHNIQUE: AP upright COMPARISON: Chest 10/09/2015 HISTORY: ORDERING SYSTEM PROVIDED HISTORY: Reason for Exam: chest pain FINDINGS: Support devices: None Cardiomediastinal: The heart is stable in size and configuration. Lungs: No infiltrates, pulmonary edema, consolidation or large pleural effusion. Pneumothorax: None Osseous: No acute osseous pathology. Spondylotic changes throughout the thoracic spine. IMPRESSION: No acute pulmonary disease. Interpreted by: Jacob Frazier MD Preliminary Report By: Jacob Frazier MD Electronically signed By Jacob Frazier MD Dictated Date: 02/22/2023 12:27:47 PM Prelim Date: 02/22/2023 12:28:42 PM Sign Date: 02/22/2023 12:28:42 PM Ordering Provider[facility] Note Sinus rhythm Biatrial enlargement Nonspecific T abnrm, anterolateral leads Prolonged QT interval Electronic Signature: ELKE GARCIA MD 02/22/2023 11:51:31[facility] 08-03-2023 History of Present illness Narrative* Ivette Welsh MD - 02/18/2023 10:00 AM EDT Transitional Care Management TCM Eligibility Documentation The following information was gathered during the initial Patient Outreach Encounter. Date of Outreach: 02/12/2023 Outreach Attempt 1: Contact Made Date of Discharge 02/11/2023 Some recent data might be hidden Provider Documentation Savannah Irvin is a 57 year old female here today for a follow up from recent hospitalization. I have reviewed the patient's hospital course including discharge summary, discharge medications , and follow up needs with the patient and any family members present at today's visit. HPI 7 day TCM Here today with significant other. Pt here today for a 7 day TCM. Pt seen in [facility] ED on 02/08/23 for flank pain and acute pyelonephritis. She was discharged home on 02/11/23 on Cipro 500 mg bid for 7 days. Pt reports that the medication makes her feel sick. Does admit to missing some of the dosages, which is why she's still taking the medication. Pt reports the medication does make her vomit, makes her sick, off balance, dizzy, not hungry and leaves a bad taste in her mouth. Notes that the pain in her back has improved, but notes occasional pain that occurs. The other night she states she did feel a little warm, but did not take her temperature. Denies any urinary symptoms, no pain with urination and her urine is back to normalappearing. Pt states that they did not make an appt with Dr. Lisa's office. When she spoke with the office for her TCM pt reported still having a lot of pain in her back. Pt has chronic pain. Pt was advised to take Ibuprofen 600 mg to 800 mg TID. Pt notes that she has trouble swallowing her food to the point she will end up vomiting. She will try to drink something but this doesn't help her. Asking if there is something she can take for this.Previously took medication such as Prilosec but this did not help her. Rx of Pantoprazole 40 mg given in November. Notes she had scoping done quite some time ago. COPD - Smoking, thinks about quitting but like smoking. Can go hours without smoking. Asking for Ventolin Rescue inhaler refills, but was notified there are available refills available at the pharmacy. Uses Nebulizer and Duoneb. Pt previously followed with Dr. Salazar, but has not seen him in quite some time. BP - Hx of BP issues and previously took Losartan 25 mg once daily. Pt states that she is not taking this medication. Pt reports that while she was in the hospital her BP was low. Today elevated, butpt feels this was related to being late to her appt. Requesting refill of Epipen, has allergies to nuts. Below copied from [email or web address]: Chief Complaint: Flank Pain Informant: patient Narrative Narrative: Intermittent right flank pain for the past 4 days yesterday's persistent radiograph her right lowerquadrant. Chills however no fevers possible bloody urine states is darker. No dysuria. Cholecystectomy 15 years ago. Denies fevers. Nausea without vomiting. No history of kidney stones. Prior similar symptoms: No Plan This is a 57-year-old female came to ER for right flank pain and mild blood mixed urine, hematuria. 1. Right-sided pyelonephritis: [facility] She is not having sinus symptoms suggestive of sepsis. No recordable fever. No hypotension. Labs not suggestive of acute sepsis related organ dysfunction. Patient has leukocytosis, mild tachycardia. UA suggestive of pyuria, RBC more than 100 cells, LE positive, nitrite positive. Patient was given IV Zosyn in ED. Started onIV ceftriaxone 2 g daily. Blood and urine culture ordered. CT abdomen shows right perinephric stranding and mild right hydronephrosis although no obstructive calculus or uropathy seen. Stable 3 cm nonobstructive calculus in the midportion of left kidney. 02/09: No fever. Patient still has right flank pain. Preliminary blood culture x2, anaerobic and anaerobic shows gram-negative sarah. Patient with increasing leukocytosis 27,000. I will broaden the antibiotic to IV cefepime to cover Pseudomonas. 02/10: Prelim urine culture reported patient E. coli more than 100,000 colonies. Sensitivity report pending. Ultrasound reviewed and reported normal kidney and bladder ultrasound. Anticipate surgery tomorrow morning and patient can be discharged. Patient still has significant leukocytosis although gradually improving. 02/11: Urine culture sensitivity available. E. coli more than 100,000 colonies, ESBL negative. Sensitive to fluoroquinolone, ceftriaxone but resistant to Bactrim. Leukocytosis improved and almost resolved. Patient is discharged on ciprofloxacin 500 mg twice daily for 7 more days to complete total of10 days. Outpatient referral to Dr. Lisa for pyelonephritis Mild hyponatremia. Sodium 133. Potassium normal. IV fluid normal saline +20 mEq potassium chloride. 02/10: Serum sodium 134. Potassium normal. 02/10 mild hypokalemia, potassium 3.4. Potassium replaced 2. COPD: Clinically stable. Continue DuoNeb every 6 hours, albuterol PRN. Incentive spirometry. 3. History of hypertension: Blood pressure is controlled. 4.. Current smoker, smokes cigarettes. Quit alcohol and substance use, history of polysubstance usein the past: Nicotine patch ordered. 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 5. Anxiety and depression history of suicidal attempt more than 10 years ago: Patient states she isnot on an antidepression medication. 02/09: Patient denies substance use but takes marijuana. Started on paroxetine. 02/10 follow-up with PCP. Living will/advanced directive/end of life care: Patient does not have living will or advanced directive or designated power of business attorney for health. After discussion of benefits/risks procedures involved with full code, DNR CC arrest and DNR CC, the patient opted for full code. Patient does want artificial life support including intubation, tube feed, ventilator and/chest compression, central venous catheter, vasopressor and DC shock if needed PHYSICAL EXAMINATION BP 154/98 Pulse 98 Resp 20 Wt 76.7 kg (169 lb 3.2 oz) LMP 02/16/2010 BMI 28.16 kg/m GENERAL: well appearing, alert, in no acute distress HEART: regular rate and rhythm. No murmur, rubs or gallops. LUNGS: clear to auscultation, no wheezing, rhonchi, or crackles Back: Some tenderness to palpate to right flank. ASSESSMENT/PLAN: 1. Hospital discharge follow-up - ICD9: V67.59, ICD10: Z09 (primary diagnosis) - Stable - UA w/Cx ordered to check once completing abx 2. Acute pyelonephritis - ICD9: 590.10, ICD10: N10 - As noted above - URINALYSIS WITH MICROSCOPIC, REFLEX CULTURE 3. Chronic obstructive pulmonary disease, unspecified COPD type (HCC) - ICD9: 496, ICD10: J44.9 - Smoking cessation discussed 4. Dysphagia, unspecified type - ICD9: 787.20, ICD10: R13.10 - Consult GI - Rx sent - PANTOPRAZOLE 40 MG TABLET,DELAYED RELEASE Pt to come into lab to complete UA once she completes Cipro Rx. Will call with results. I agree with the Chief Complaint, ROS, and Past Histories independently gathered by the clinical direct support staff and the remaining scribed note accurately describes my personal service to the patient. Ivette Welsh MD The documentation for this note was completed by Deepika Pierce Ma acting as scribe for Ivette Welsh MD. February 18, 2023 10:36 AM. Deepika Pierce Ma documented in this encounterRebecca [place] [id number] Discharge summary Author Jama Bustamante [facility] February 11, 2023 8:34am Note Date/Time February 11, 2023 7:55 am [facility] Medical Records Department [address] [place] [address] Discharge Summary 02/11/23 0834 MR#: [id number] Acct: [id number] Name: SAVANNAH IRVIN Rep #:[id number] : 1965 57 From: [place] PCP: Dr. Ivette Welsh MD Status:AD M IN Location: [facility] [id number] Providers Date of Admission: 02/08/23 Date of Discharge: 02/11/23 Primary Care Physician: Dr. Ivette Welsh MD Reason For Visit: PYELONEPHRITIS Diagnosis Discharge Diagnosis (1) Acute pyelonephritis: Status: Acute Code(s): N10 - Acute pyelonephritis Plan This is a 57-year-old female came to ER for right flank pain and mild blood mixed urine, hematuria. 1. Right-sided pyelonephritis: Patient is being admitted in MedSurg floor. Sheis not having sinus symptoms suggestive of sepsis. No recordable fever. No hypotension. Labs not suggestive of acute sepsis related organ dysfunction. Patient has leukocytosis, mild tachycardia. UA suggestive of pyuria, RBC more than 100 cells, LE positive, nitrite positive. Patient was given IV Zosyn in ED. Started on IV ceftriaxone 2 g daily. Blood and urine culture ordered. CT abdomen shows right perinephric stranding and mild right hydronephrosis althoughno obstructive calculus or uropathy seen. Stable 3 cm nonobstructive calculus in the midportion of left kidney. 02/09: No fever. Patient still has right flank pain. Preliminary blood culture x2, anaerobic and anaerobic shows gram-negative sarah. Patient with increasing leukocytosis 27,000. I will broaden the antibiotic to IV cefepime to cover Pseudomonas. 02/10: Prelim urine culture reported patient E. coli more than 100,000 colonies. Sensitivity report pending. Ultrasound reviewed and reported normal kidney and bladder ultrasound. Anticipate surgery tomorrow morning and patient can be discharged. Patient still has significant leukocytosis although gradually improving. 02/11: Urine culture sensitivity available. E. coli more than 100,000 colonies, ESBL negative. Sensitive to fluoroquinolone, ceftriaxone but resistant to Bactrim. Leukocytosis improved and almost resolved. Patient is discharged on ciprofloxacin 500 mg twice daily for 7 more days to complete total of 10 days. Outpatient referral to Dr. Lisa for pyelonephritis Mild hyponatremia. Sodium 133. Potassium normal. IV fluid normal saline +20 mEq potassium chloride. 02/10: Serum sodium 134. Potassium normal. 02/10 mild hypokalemia, potassium 3.4. Potassium replaced 2. COPD: Clinically stable. Continue DuoNeb every 6 hours, albuterol PRN. Incentive spirometry. 3. History of hypertension: Blood pressure is controlled. 4.. Current smoker, smokes cigarettes. Quit alcohol and substance use, historyof polysubstance use in the past: Nicotine patch ordered. 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 5. Anxiety and depression history of suicidal attempt more than 10 years ago: Patient states she is not on an antidepression medication. 02/09: Patient denies substance use but takes marijuana. Started on paroxetine. 02/10 follow-up with PCP. Living will/advanced directive/end of life care: Patient does not have living will or advanced directive or designated power of business attorney for health. After discussion of benefits/risks procedures involved with full code, DNR CC arrest and DNR CC, the patient opted for full code. 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 coli Laboratory Results 02/08/23 12:45: Diff Path Review Reviewed 02/09/23 05:45: Diff Path Review Reviewed 02/11/23 05:25: WBC 11.3 H, RBC 4.31, Hgb 12.2, Hct 38.3, MCV 88.9, MCH 28.3, MCHC 31.9 L D, RDW Std Deviation 45.0 H, RDW Coeff of Madhu 13.7, Plt Count 381, MPV 9.7, Immature Gran % (Auto) 0.700, Neut % (Auto) 68.8, Lymph % (Auto) 16.4 L, [place] % (Auto) 12.0 H, Eos % (Auto) 1.7, Baso % (Auto) 0.4, Absolute Neuts (auto) 7.8 H, Absolute Lymphs (auto) 1.85, Nucleated RBC % 0, Sodium 138, Potassium 3.4 L, Chloride 103, Carbon Dioxide 30.0, Anion Gap 5, BUN 9, Creatinine 0.75, Estim Creat Clear Calc 72.33, Est GFR (MDRD) Af Amer 102, Est GFR (MDRD) Non-Af 85, BUN/Creatinine Ratio 12.0, Glucose 98, Calcium 8.9 Clinical Impression(s) from Imaging Studies Abdomen/Pelvis CT 02/08/23 12:29 IMPRESSION: Mild degree of right perinephric stranding and mild right hydronephrosis although no obstructive calculus is seen at this time. A recently passed calculus cannot be ruled out. Stable nonobstructive crackers and the left kidney. Small hiatal hernia with the stable thickening of the distal esophagus. Renal Ultrasound 02/09/23 11:58 IMPRESSION: Normal ultrasound of the kidneys and urinary bladder. Electronically Signed: Ayaz Parker MD at 14:59 EDT , Medications at Discharge Home Medications albuterol sulfate 2.5 mg/3 mL (0.083 %) solution for nebulization 2.5 mg (3 mL) inhalation Q4H PRN #25 vials 10/20/17 albuterol sulfate 90 mcg/actuation aerosol inhaler (Ventolin HFA) 1 - 2 puff inhalation PRN PRN Sob &/Or Wheezing 05/18/18 epinephrine 0.3 mg/0.3 mL injection, auto-injector 0.3 mg (0.3 mL) IM X1 ##1 01/21/19 ipratropium 0.5 mg-albuterol 3 mg (2.5 mg base)/3 mL nebulization soln 3 ml inhalation BID 08/31/21 ciprofloxacin HCl 500 mg tablet (Cipro) 500 mg PO BID 7 days #14 tabs 02/11/23 Physical Exam Narrative Seen and examined. Discussed with nursing staff. Patient is still lethargic flank pain although getting better. Discussed the ultrasound and CT imaging findings with the patient. Ultrasound reported normal. Urine culture and blood culture sensitivity pending. Physical exam General: Alert, Oriented x3, Cooperative HEENT: Atraumatic, PERRLA, EOMI, Normocephalic Oral: Oral mucosa moist. No Gingival or Mucosal Lesions/ Ulcerations Neck: Supple, No JVD, Negative Carotid Bruits Lungs: Air entry diminished in bilateral lung bases. No crepitation/rhonchi Cardiovascular: Regular rate, Regular Rhythm, Normal S1, Normal S2, No murmurs Abdomen: Bowel Sounds Present, Soft, tenderness present over right lumbar area, right umbilical area. : Mild tenderness present over right renal angle, much improved. No left renal angle tenderness. No suprapubic tenderness. Extremities: No edema, Capillary Refill Less than 3 Seconds Skin: Bilateral lower legs purplish, venous lace like Network chronic in nature. Musculoskeletal: No Tenderness to Palpation of Joints or Extremities Neurological: Cranial nerves II-XII grossly intact, DTR 2+/4 and Symmetrical, Neuro grossly intact Psych/Mental Status: Looks depressed. Weight / BMI Weight Weight: 166 lb 3.657 oz Body Mass Index (BMI) 28.3 ABG / Lab / Microbiology Data 02/11/23 05:25 02/11/23 05:25 Laboratory: Laboratory Results - last 24 hr 02/08/23 12:45: Diff Path Review Reviewed 02/09/23 05:45: Diff Path Review Reviewed 02/11/23 05:25: WBC 11.3 H, RBC 4.31, Hgb 12.2, Hct 38.3, MCV 88.9, MCH 28.3, MCHC 31.9 L D, RDW Std Deviation 45.0 H, RDW Coeff of Madhu 13.7, Plt Count 381, MPV 9.7, Immature Gran % (Auto) 0.700, Neut % (Auto) 68.8, Lymph % (Auto) 16.4 L, Vermillion % (Auto) 12.0 H, Eos % (Auto) 1.7, Baso % (Auto) 0.4, Absolute Neuts (auto) 7.8 H, Absolute Lymphs (auto) 1.85, Nucleated RBC % 0, Sodium 138, Potassium 3.4 L, Chloride 103, Carbon Dioxide 30.0, Anion Gap 5, BUN 9, Creatinine 0.75, Estim Creat Clear Calc 72.33, Est GFR (MDRD) Af Amer 102, Est GFR (MDRD) Non-Af 85, BUN/Creatinine Ratio 12.0, Glucose 98, Calcium 8.9 Microbiology: Microbiology 02/08/23 13:00 Urine, Clean Catch Urine Culture - Final Presumptive E. coli 02/08/23 15:01 Blood Culture (Wb) - Left Forearm Blood Culture - Preliminary GNR lactose regional construction manager 02/08/23 14:06 Blood Culture (Wb) - Anticubital Left Blood Culture - Preliminary GNR lactose regional construction manager Meaningful Use Info Meaningful Use Diagnoses (Choose all that apply): None applicable Discharge Plan Admission Admit Date/Time: 02/08/23 15:02 Primary Reason for Your Visit: right sided pyelonephritis Attending Provider: Jama Bustamante Primary Care Provider: Ivette Welsh Discharge Orders/Prescriptions Prescriptions: New ciprofloxacin HCl [Cipro] 500 mg tablet 500 mg PO BID 7 Days Qty: 14 0RF Continued albuterol sulfate 2.5 MG/3 ML solution for nebulization 2.5 mg INHALATION Q4H PRN Qty: 25 0RF Rx Instructions: Use q4 hours and PRN for wheezing albuterol sulfate [Ventolin HFA] 18 GM HFA aerosol inhaler 1 - 2 puff inhalation PRN PRN (Reason: Sob &/Or Wheezing) Patient Comments: inhale 2 puffs by mouth every 4 hours as directed if needed for wheezing or shortness of breath epinephrine 0.3 MG syringe 0.3 mg IM X1 Qty: 1 1RF ipratropium-albuterol 0.5 mg-3 mg(2.5 mg base)/3 mL solution for nebulization 3 ml inhalation BID Patient Comments: inhale contents of 1 vial in nebulizer as directed every 6 hours ... (REFER TO PRESCRIPTION NOTES). Referrals / Follow Up: Etelvina Lisa MD [Med Staff - Active Staff] - Within 2 Weeks (Acute pyelonephritis) Ivette Welsh MD [Primary Care Provider] - Disposition Disposition (needs filled in before D/C Order can be placed): Home, Self Care Charges/Coding Visit Charges Inpatient E&M: 64588 Disch Hosp >30min 02/11/23 0834 <Electronically signed by Jama Bustamante MD> Cosigner Signature (if applicable): CC: Dr. Ivette Welsh MD; Dr. Jama Bustamante MD~ Signed [facility] Work Phone: 1(321) 705-244307-27-2023 Discharge summary Author Jama Bustamante [facility] February 11, 2023 8:02am Note Date/Time February 11, 2023 8:02 am [facility] Medical Records Department [address] [place] [address] Instructions for Home/Discharge Instructions 02/11/23 0801 MR#: [id number] Acct: [id number] Name: SAVANNAH IRVIN Rep #:[id number] : 1965 57 From: [facility] [place] PCP: Dr. Ivette Welsh MD Status:AD M IN Discharge Instructions Diet Discharge Diet: No restrictions Activity Discharge Activity: Return to Normal Activity Weight Bearing Status: Weight bearing as tolerated Dressing / Incision Call your doctor if you observe: Fever of 101 or Higher, Coldness, Increased Pain, Numbness or Tingling, Change in Color, Inability to urinate, Inability to have a bowel movement, Using more than 1 pad per hour, Shortness of breath, Dizziness, Fainting spells, Swelling in the ankles, Chest pain, Prolonged hiccupping, Increased palpitations (irregular heartbeat) and Calf discomfort Follow Up Care When: IN 2 WEEKS Test Results: Test results from this visit will be discussed in further detail at your follow- up appointment, if applicable. Discharge Plan Admission Admit Date/Time: 02/08/23 15:02 Primary Reason for Your Visit: right sided pyelonephritis Attending Provider: Jama Bustamante Primary Care Provider: Ivette Welsh Discharge Orders/Prescriptions Prescriptions: New ciprofloxacin HCl [Cipro] 500 mg tablet 500 mg PO BID 7 Days Qty: 14 0RF Continued albuterol sulfate 2.5 MG/3 ML solution for nebulization 2.5 mg INHALATION Q4H PRN Qty: 25 0RF Rx Instructions: Use q4 hours and PRN for wheezing albuterol sulfate [Ventolin HFA] 18 GM HFA aerosol inhaler 1 - 2 puff inhalation PRN PRN (Reason: Sob &/Or Wheezing) Patient Comments: inhale 2 puffs by mouth every 4 hours as directed if needed for wheezing or shortness of breath epinephrine 0.3 MG syringe 0.3 mg IM X1 Qty: 1 1RF ipratropium-albuterol 0.5 mg-3 mg(2.5 mg base)/3 mL solution for nebulization 3 ml inhalation BID Patient Comments: inhale contents of 1 vial in nebulizer as directed every 6 hours ... (REFER TO PRESCRIPTION NOTES). Referrals / Follow Up: Etelvina Lisa MD [Med Staff - Active Staff] - Within 2 Weeks (Acute pyelonephritis) Ivette Welsh MD [Primary Care Provider] - Disposition Disposition (needs filled in before D/C Order can be placed): Home, Self Care 02/11/23 0802<Electronically signed by Jama Bustamante MD>Jama Bustamante MD CC: Dr. Ivette Welsh MD ~ Signed [facility] Work Phone: [phone]) 863-151507-27-2023 Discharge summary Author Jama Bustamante [facility] February 11, 2023 7:52am Note Date/Time February 11, 2023 7:49 am [facility] Medical Records Department [address] [place] [address] Instructions for Home/Discharge Instructions 02/11/23 0748 MR#: [id number] Acct: [id number] Name: SAVANNAH IRVIN SRIDHAR Rep #:[id number] : 1965 57 From: [facility] [place] PCP: Dr. Ivette Welsh MD Status:AD M IN Discharge Instructions Follow Up Care Test Results: Test results from this visit will be discussed in further detail at your follow- up appointment, if applicable. Discharge Plan Admission Admit Date/Time: 02/08/23 15:02 Primary Reason for Your Visit: right sided pyelonephritis Attending Provider: Jama Bustamante Primary Care Provider: Ivette Welsh Discharge Orders/Prescriptions Prescriptions: New ciprofloxacin HCl [Cipro] 500 mg tablet 500 mg PO BID 7 Days Qty: 14 0RF Continued albuterol sulfate 2.5 MG/3 ML solution for nebulization 2.5 mg INHALATION Q4H PRN Qty: 25 0RF Rx Instructions: Use q4 hours and PRN for wheezing albuterol sulfate [Ventolin HFA] 18 GM HFA aerosol inhaler 1 - 2 puff inhalation PRN PRN (Reason: Sob &/Or Wheezing) Patient Comments: inhale 2 puffs by mouth every 4 hours as directed if needed for wheezing or shortness of breath epinephrine 0.3 MG syringe 0.3 mg IM X1 Qty: 1 1RF ipratropium-albuterol 0.5 mg-3 mg(2.5 mg base)/3 mL solution for nebulization 3 ml inhalation BID Patient Comments: inhale contents of 1 vial in nebulizer as directed every 6 hours ... (REFER TO PRESCRIPTION NOTES). Referrals / Follow Up: Ivette Welsh MD [Primary Care Provider] - Etelvina Lisa MD [Med Staff - Active Staff] - Within 2 Weeks (Acute pyelonephritis) Disposition Disposition (needs filled in before D/C Order can be placed): Home, Self Care 02/11/23 0752<Electronically signed by Jama Bustamante MD>Jama Bustamante MD CC: Dr. Ivette Welsh MD ~ Signed [facility] Work Phone: [phone]) 327-945807-26-2023 Progress note Author Jama Robby [facility] February 10, 2023 6:14pm Note Date/Time February 10, 2023 6:14 pm [facility] Medical Records Department [address] [place] [address] Progress Note - Hospitalist 02/10/23 0721 MR#: [id number] Acct: [id number] Name: SAVANNAH IRVIN SRIDHAR Rep #:[id number] : 1965 57 From: [facility] [place] PCP: Dr. Ivette Welsh MD Status:AD M IN Location: [place] [id number] Reason for Visit Reason for Visit: Diagnoses Acute pyelonephritis (02/08/23) Subjective Subjective Follow-up for right-sided perinephritis. Objective Data Objective Data Vital Signs: Vital Signs Temp Pulse Resp BP Pulse Ox O2 Del Method O2 Flow Rate 98.5 F 110 H 16 126/58 H 95 Nasal Cannula 1 02/10/23 02:00 02/10/23 04:50 02/10/23 04:50 02/10/23 02:00 02/10/23 02:00 02/10/23 02:19 02/10/23 02:19 Oxygen Flow Rate (L/min) 1 Oxygen Delivery Method Nasal Cannula Weight: 171 lb 1.259 oz Body Mass Index (BMI) 29.2 Intake & Output: Intake and Output for Last 24 Hours 02/08/23 02/09/23 02/10/23 23:59 23:59 23:59 Intake Total 1648.33 / 1648.33 2360 / 2360 400 / 400 Output Total 2200 / 2200 Balance 1648.33 / 1648.33 160 / 160 400 / 400 Lab / Micro Data 02/10/23 05:13 02/10/23 05:13 Labs: Laboratory Results - last 24 hr 02/10/23 05:13: WBC 17.5 H, RBC 4.10 L, Hgb 11.4 L, Hct 37.7, MCV 92.0, MCH 27.8, MCHC 30.2 L, RDW Std Deviation 46.8 H, RDW Coeff of Madhu 13.8, Plt Count 318, MPV 10.1, Immature Gran % (Auto) 0.600, Neut % (Auto) 85.6 H, Lymph % (Auto) 6.8 L, Vermillion % (Auto) 6.3, Eos % (Auto) 0.5, Baso % (Auto) 0.2, Absolute Neuts (auto) 15.0 H, Absolute Lymphs (auto) 1.19, Nucleated RBC % 0 Micro: Microbiology 02/08/23 15:01 Blood Culture (Wb) - Left Forearm Blood Culture - Preliminary GNR lactose regional construction manager 02/08/23 14:06 Blood Culture (Wb) - Anticubital Left Blood Culture - Preliminary GNR lactose regional construction manager Radiography Diagnostic Testing: Radiology Impression Renal Ultrasound 02/09/23 11:58 IMPRESSION: Normal ultrasound of the kidneys and urinary bladder. Electronically Signed: Ayaz Parker MD at 14:59 EDT , Physical Exam Narrative Seen and examined. Discussed with nursing staff. Patient is still lethargic flank pain although getting better. Discussed the ultrasound and CT imaging findings with the patient. Ultrasound reported normal. Urine culture and blood culture sensitivity pending. Physical exam General: Alert, Oriented x3, Cooperative HEENT: Atraumatic, PERRLA, EOMI, Normocephalic Oral: Oral mucosa moist. No Gingival or Mucosal Lesions/ Ulcerations Neck: Supple, No JVD, Negative Carotid Bruits Lungs: Air entry diminished in bilateral lung bases. No crepitation/rhonchi Cardiovascular: Regular rate, Regular Rhythm, Normal S1, Normal S2, No murmurs Abdomen: Bowel Sounds Present, Soft, tenderness present over right lumbar area, right umbilical area. : Mild tenderness present over right renal angle and suprapubic bladder. Leftrenal angle no tenderness. Extremities: No edema, Capillary Refill Less than 3 Seconds Skin: Bilateral lower legs purplish, venous lace like Network chronic in nature. Musculoskeletal: No Tenderness to Palpation of Joints or Extremities Neurological: Cranial nerves II-XII grossly intact, DTR 2+/4 and Symmetrical, Neuro grossly intact Psych/Mental Status: Looks depressed. Assessment & Plan Assessment/Plan (1) Acute pyelonephritis: PLAN: Plan This is a 57-year-old female came to ER for right flank pain and mild blood mixed urine, hematuria. 1. Right-sided pyelonephritis: [facility] Sheis not having sinus symptoms suggestive of sepsis. No recordable fever. No hypotension. Labs not suggestive of acute sepsis related organ dysfunction. Patient has leukocytosis, mild tachycardia. UA suggestive of pyuria, RBC more than 100 cells, LE positive, nitrite positive. Patient was given IV Zosyn in ED. Started on IV ceftriaxone 2 g daily. Blood and urine culture ordered. CT abdomen shows right perinephric stranding and mild right hydronephrosis althoughno obstructive calculus or uropathy seen. Stable 3 cm nonobstructive calculus in the midportion of left kidney. 02/09: No fever. Patient still has right flank pain. Preliminary blood culture x2, anaerobic and anaerobic shows gram-negative sarah. Patient with increasing leukocytosis 27,000. I will broaden the antibiotic to IV cefepime to cover Pseudomonas. 02/10: Prelim urine culture reported patient E. coli more than 100,000 colonies. Sensitivity report pending. Ultrasound reviewed and reported normal kidney and bladder ultrasound. Anticipate surgery tomorrow morning and patient can be discharged. Patient still has significant leukocytosis although gradually improving. Mild hyponatremia. Sodium 133. Potassium normal. IV fluid normal saline +20 mEq potassium chloride. 02/10: Serum sodium 134. Potassium normal. 2. COPD: Clinically stable. Continue DuoNeb every 6 hours, albuterol PRN. Incentive spirometry. 3. History of hypertension: Blood pressure is controlled. 4.. Current smoker, smokes cigarettes. Quit alcohol and substance use, historyof polysubstance use in the past: Nicotine patch ordered. 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 5. Anxiety and depression history of suicidal attempt more than 10 years ago: Patient states she is not on an antidepression medication. 02/09: Patient denies substance use but takes marijuana. Started on paroxetine. Living will/advanced directive/end of life care: Patient does not have living will or advanced directive or designated power of business attorney for health. After discussion of benefits/risks procedures involved with full code, DNR CC arrest and DNR CC, the patient opted for full code. Patient does want artificial life support including intubation, tube feed, ventilator and/chest compression, central venous catheter, vasopressor and DC shock if needed Total time spent in [id number] encounter in discussion of advanced directive 17 minutes. Microbiology Past 72 Hours 02/08/23 13:00 Urine, Clean Catch Urine Culture - Preliminary Presumptive E. coli 02/08/23 15:01 Blood Culture (Wb) - Left Forearm Blood Culture - Preliminary GNR lactose regional construction manager 02/08/23 14:06 Blood Culture (Wb) - Anticubital Left Blood Culture - Preliminary GNR lactose regional construction manager Laboratory Results 02/08/23 12:45: Diff Path Review Reviewed 02/09/23 05:45: Diff Path Review Reviewed 02/10/23 05:13: WBC 17.5 H, RBC 4.10 L, Hgb 11.4 L, Hct 37.7, MCV 92.0, MCH 27.8, MCHC 30.2 L, RDW Std Deviation 46.8 H, RDW Coeff of Madhu 13.8, Plt Count 318, MPV 10.1, Immature Gran % (Auto) 0.600, Neut % (Auto) 85.6 H, Lymph % (Auto) 6.8 L, Vermillion % (Auto) 6.3, Eos % (Auto) 0.5, Baso % (Auto) 0.2, Absolute Neuts (auto) 15.0 H, Absolute Lymphs (auto) 1.19, Nucleated RBC % 0, Sodium 134 L, Potassium 3.8, Chloride 101, Carbon Dioxide 30.0, Anion Gap 3 L, BUN 12, Creatinine 0.92, Estim Creat Clear Calc 58.96, Est GFR (MDRD) Af Amer 81, Est GFR (MDRD) Non-Af 67, BUN/Creatinine Ratio 13.1, Glucose 113 H, Calcium 8.6 Clinical Impression(s) from Imaging Studies Abdomen/Pelvis CT 02/08/23 12:29 IMPRESSION: Mild degree of right perinephric stranding and mild right hydronephrosis although no obstructive calculus is seen at this time. A recently passed calculus cannot be ruled out. Stable nonobstructive crackers and the left kidney. Small hiatal hernia with the stable thickening of the distal esophagus. Renal Ultrasound 02/09/23 11:58 IMPRESSION: Normal ultrasound of the kidneys and urinary bladder. Electronically Signed: Ayaz Parker MD at 14:59 EDT Reading Location ID and State: [facility] / [place] , Service support , Charges/Coding Visit Charges Inpatient E&M: 52051 Subs Hosp L2 02/10/23 1814 <Electronically signed by Jama Bustamante MD> Cosigner Signature (if applicable): CC: ~ Signed [facility] Work Phone: 1(971) 250-874007-25-2023 Progress note Author Jama Bustamante [facility] February 09, 2023 11:57am Note Date/Time February 09, 2023 11:5 6am [facility] Medical Records Department [address] [place] [address] Progress Note - Hospitalist 02/09/23 1149 MR#: [id number] Acct: [id number] Name: SAVANNAH IRVIN Rep #:[id number] : 1965 57 From: [facility] [place] PCP: Dr. Ivette Welsh MD Status:AD M IN Location: [facility] [id number] Reason for Visit Reason for Visit: Diagnoses Acute pyelonephritis (02/08/23) Subjective Subjective Follow-up for right-sided acute pyelonephritis. Objective Data Objective Data Vital Signs: Vital Signs Temp Pulse Resp BP Pulse Ox O2 Del Method O2 Flow Rate 97.9 F 99 18 103/60 96 Nasal Cannula 2 02/09/23 10:00 02/09/23 10:00 02/09/23 10:00 02/09/23 10:00 02/09/23 10:00 02/09/23 10:00 02/09/23 10:00 Oxygen Flow Rate (L/min) 2 Oxygen Delivery Method Nasal Cannula Weight: 171 lb 1.259 oz Body Mass Index (BMI) 29.2 Intake & Output: Intake and Output for Last 24 Hours 02/07/23 02/08/23 02/09/23 23:59 23:59 23:59 Intake Total 1648.33 / 1648.33 460 / 460 Output Total 800 / 800 Balance 1648.33 / 1648.33 -340 / -340 Lab / Micro Data 02/09/23 05:45 02/09/23 05:45 Labs: Laboratory Results - last 24 hr 02/08/23 12:45: WBC 24.7 H, RBC 5.15, Hgb 14.4, Hct 46.1, MCV 89.5, MCH 28.0, MCHC 31.2 L, RDW Std Deviation 44.7 H, RDW Coeff of Madhu 13.7, Plt Count 388, MPV9.4, Immature Gran % (Auto) 0.800, Neut % (Auto) 82.0 H, Lymph % (Auto) 8.4 L, Vermillion % (Auto) 8.3, Eos % (Auto) 0.1, Baso % (Auto) 0.4, Absolute Neuts (auto) 20.3 H, Absolute Lymphs (auto) 2.07, Nucleated RBC % 0, Differential Comment SCANNED, Diff Path Review November, Sodium 134 L, Potassium 3.7, Chloride 100, Carbon Dioxide 31.0, Anion Gap 3 L, BUN 11, Creatinine 0.98, Est GFR (MDRD) Af Amer 75, Est GFR (MDRD) Non-Af 62, BUN/Creatinine Ratio 11.2, Glucose 90, Calcium 8.8, Magnesium 1.8, Total Bilirubin 1.30 H, AST 28, ALT 18, Alkaline Phosphatase 124 H, Total Protein 7.3, Albumin 3.1 L, Globulin 4.2, Albumin/Globulin Ratio 0.7 L, Lipase 14 02/08/23 13:00: Urine Color Brown, Urine Clarity Cloudy, Urine pH 6.5, Ur Specific Wing[place] 1.015, Urine Protein 100 H, Urine Glucose (UA) Normal, Urine Ketones 50 H, Urine Occult Blood 250 H, Urine Nitrite Positive H, Urine Bilirubin 1 H, Urine Urobilinogen 4 H, Ur Leukocyte Esterase 500 H, Urine RBC > 100 SEEN, Urine WBC >100 SEEN, Ur Squamous Epith Cells 0 SEEN, Urine Bacteria 1+, Urine Mucus 0 SEEN 02/08/23 14:06: Lactic Acid 0.9 02/09/23 05:45: WBC 27.2 H, RBC 4.61, Hgb 13.0, Hct 42.1, MCV 91.3, MCH 28.2, MCHC 30.9 L, RDW Std Deviation 47.1 H, RDW Coeff of Madhu 13.9, Plt Count 338, MPV9.8, Immature Gran % (Auto) 1.800 H, Neut % (Auto) 85.4 H, Lymph % (Auto) 5.7 L,Vermillion % (Auto) 6.7, Eos % (Auto) 0.1, Baso % (Auto) 0.3, Absolute Neuts (auto) 23.3 H, Absolute Lymphs (auto) 1.55, Nucleated RBC % 0, Diff Path Review November, Sodium 133 L, Potassium 4.5, Chloride 101, Carbon Dioxide 28.0, Anion Gap 4 L, BUN 12, Creatinine 1.06 H, Estim Creat Clear Calc 51.17, Est GFR (MDRD) Af Amer 69, Est GFR (MDRD) Non-Af 57 L, BUN/Creatinine Ratio 11.3, Glucose 98, Calcium 8.0 L Micro: Microbiology 02/08/23 15:01 Blood Culture (Wb) - Left Forearm Blood Culture - Preliminary 02/08/23 14:06 Blood Culture (Wb) - Anticubital Left Blood Culture - Preliminary Radiography Diagnostic Testing: Radiology Impression Abdomen/Pelvis CT 02/08/23 12:29 IMPRESSION: Mild degree of right perinephric stranding and mild right hydronephrosis although no obstructive calculus is seen at this time. A recently passed calculus cannot be ruled out. Stable nonobstructive crackers and the left kidney. Small hiatal hernia with the stable thickening of the distal esophagus. Electronically Signed: Ayaz Parker MD at 13:52 EDT , Physical Exam Narrative Seen and examined. Discussed with nursing staff. Patient constantly asking for morphine every 3 hours. History of substance use but patient herself denies opioid including prescribed or street medication, fentanyl, crack cocaine or other substance use. Patient has history of marijuana use. She states her son is an opioid addict. General: Alert, Oriented x3, Cooperative HEENT: Atraumatic, PERRLA, EOMI, Normocephalic Oral: Oral mucosa moist. No Gingival or Mucosal Lesions/ Ulcerations Neck: Supple, No JVD, Negative Carotid Bruits Lungs: Air entry diminished in bilateral lung bases. No crepitation/rhonchi Cardiovascular: Regular rate, Regular Rhythm, Normal S1, Normal S2, No murmurs Abdomen: Bowel Sounds Present, Soft, tenderness present over right lumbar area, right umbilical area. : Mild tenderness present over right renal angle and suprapubic bladder. Leftrenal angle no tenderness. Extremities: No edema, Capillary Refill Less than 3 Seconds Skin: Bilateral lower legs purplish, venous lace like Network chronic in nature. Musculoskeletal: No Tenderness to Palpation of Joints or Extremities Neurological: Cranial nerves II-XII grossly intact, DTR 2+/4 and Symmetrical, Neuro grossly intact Psych/Mental Status: Looks depressed. Assessment & Plan Assessment/Plan (1) Acute pyelonephritis: PLAN: Plan This is a 57-year-old female came to ER for right flank pain and mild blood mixed urine, hematuria. 1. Right-sided pyelonephritis: Patient is being admitted in MedSurg floor. Sheis not having sinus symptoms suggestive of sepsis. No recordable fever. No hypotension. Labs not suggestive of acute sepsis related organ dysfunction. Patient has leukocytosis, mild tachycardia. UA suggestive of pyuria, RBC more than 100 cells, LE positive, nitrite positive. Patient was given IV Zosyn in ED. Started on IV ceftriaxone 2 g daily. Blood and urine culture ordered. CT abdomen shows right perinephric stranding and mild right hydronephrosis althoughno obstructive calculus or uropathy seen. Stable 3 cm nonobstructive calculus in the midportion of left kidney. 02/09: No fever. Patient still has right flank pain. Preliminary blood culture x2, anaerobic and anaerobic shows gram-negative sarah. Patient with increasing leukocytosis 27,000. I will broaden the antibiotic to IV cefepime to cover Pseudomonas. Mild hyponatremia. Sodium 133. Potassium normal. IV fluid normal saline +20 mEq potassium chloride. 2. COPD: Clinically stable. Continue DuoNeb every 6 hours, albuterol PRN. Incentive spirometry. 3. History of hypertension: Blood pressure is controlled. 4.. Current smoker, smokes cigarettes. Quit alcohol and substance use, historyof polysubstance use in the past: Nicotine patch ordered. 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 5. Anxiety and depression history of suicidal attempt more than 10 years ago: Patient states she is not on an antidepression medication. 02/09: Patient denies substance use but takes marijuana. Started on paroxetine. Living will/advanced directive/end of life care: Patient does not have living will or advanced directive or designated power of business attorney for health. After discussion of benefits/risks procedures involved with full code, DNR CC arrest and DNR CC, the patient opted for full code. Patient does want artificial life support including intubation, tube feed, ventilator and/chest compression, central venous catheter, vasopressor and DC shock if needed Total time spent in [id number] encounter in discussion of advanced directive 17 minutes. Microbiology Past 72 Hours 02/08/23 15:01 Blood Culture (Wb) - Left Forearm Blood Culture - Preliminary 02/08/23 14:06 Blood Culture (Wb) - Anticubital Left Blood Culture - Preliminary Laboratory Results 02/08/23 12:45: WBC 24.7 H, RBC 5.15, Hgb 14.4, Hct 46.1, MCV 89.5, MCH 28.0, MCHC 31.2 L, RDW Std Deviation 44.7 H, RDW Coeff of Madhu 13.7, Plt Count 388, MPV9.4, Immature Gran % (Auto) 0.800, Neut % (Auto) 82.0 H, Lymph % (Auto) 8.4 L, Vermillion % (Auto) 8.3, Eos % (Auto) 0.1, Baso % (Auto) 0.4, Absolute Neuts (auto) 20.3 H, Absolute Lymphs (auto) 2.07, Nucleated RBC % 0, Differential Comment SCANNED, Diff Path Review November foll, Sodium 134 L, Potassium 3.7, Chloride 100, Carbon Dioxide 31.0, Anion Gap 3 L, BUN 11, Creatinine 0.98, Est GFR (MDRD) Af Amer 75, Est GFR (MDRD) Non-Af 62, BUN/Creatinine Ratio 11.2, Glucose 90, Calcium 8.8, Magnesium 1.8, Total Bilirubin 1.30 H, AST 28, ALT 18, Alkaline Phosphatase 124 H, Total Protein 7.3, Albumin 3.1 L, Globulin 4.2, Albumin/Globulin Ratio 0.7 L, Lipase 14 02/08/23 13:00: Urine Color Brown, Urine Clarity Cloudy, Urine pH 6.5, Ur Specific Wingate 1.015, Urine Protein 100 H, Urine Glucose (UA) Normal, Urine Ketones 50 H, Urine Occult Blood 250 H, Urine Nitrite Positive H, Urine Bilirubin 1 H, Urine Urobilinogen 4 H, Ur Leukocyte Esterase 500 H, Urine RBC > 100 SEEN, Urine WBC >100 SEEN, Ur Squamous Epith Cells 0 SEEN, Urine Bacteria 1+, Urine Mucus 0 SEEN 02/08/23 14:06: Lactic Acid 0.9 02/09/23 05:45: WBC 27.2 H, RBC 4.61, Hgb 13.0, Hct 42.1, MCV 91.3, MCH 28.2, MCHC 30.9 L, RDW Std Deviation 47.1 H, RDW Coeff of Madhu 13.9, Plt Count 338, MPV9.8, Immature Gran % (Auto) 1.800 H, Neut % (Auto) 85.4 H, Lymph % (Auto) 5.7 L,Vermillion % (Auto) 6.7, Eos % (Auto) 0.1, Baso % (Auto) 0.3, Absolute Neuts (auto) 23.3 H, Absolute Lymphs (auto) 1.55, Nucleated RBC % 0, Diff Path Review November foll, Sodium 133 L, Potassium 4.5, Chloride 101, Carbon Dioxide 28.0, Anion Gap 4 L, BUN 12, Creatinine 1.06 H, Estim Creat Clear Calc 51.17, Est GFR (MDRD) Af Amer 69, Est GFR (MDRD) Non-Af 57 L, BUN/Creatinine Ratio 11.3, Glucose 98, Calcium 8.0 L Clinical Impression(s) from Imaging Studies Abdomen/Pelvis CT 02/08/23 12:29 IMPRESSION: Mild degree of right perinephric stranding and mild right hydronephrosis although no obstructive calculus is seen at this time. A recently passed calculus cannot be ruled out. Stable nonobstructive crackers and the left kidney. Small hiatal hernia with the stable thickening of the distal esophagus. Charges/Coding Visit Charges Inpatient E&M: 48763 Subs Hosp L2 02/09/23 1157 <Electronically signed by Jama Bustamante MD> Cosigner Signature (if applicable): CC: ~ Signed [facility] Work Phone: [phone]) 982-307707-24-2023 Discharge summary Author Omega Mejía [facility] February 08, 2023 5:23pm Note Date/Time February 08, 2023 12:3 3pm [facility] Medical Records Department [address] [place] [address] Emergency Department Summary 02/08/23 MR#: [id number] Acct: [id number] Name: SAVANNAH IRVIN Rep #:[id number] : 1965 57 From: Omega Marroquin PCP: Dr. Ivette Welsh MD Status:AD M IN Location: [place] [address]-1 HPI HPI - GI History of Present Illness Chief Complaint: Flank Pain Informant: patient Narrative Narrative: Intermittent right flank pain for the past 4 days yesterday's persistent radiograph her right lower quadrant. Chills however no fevers possible bloody urine states is darker. No dysuria. Cholecystectomy 15 years ago. Denies fevers. Nausea without vomiting. No history of kidney stones. Prior similar symptoms: No PFSH PFSH Medical History Alcohol abuse Asthma Chronic pain COPD (chronic obstructive pulmonary disease) Kidney stones Pulmonary embolism Sleep apnea Smoker Stroke/cerebrovascular accident Substance abuse TIA (transient ischemic attack) Home Medications albuterol sulfate 2.5 mg/3 mL (0.083 %) solution for nebulization 2.5 mg (3 mL) inhalation Q4H PRN #25 vials 10/20/17 [Rx Last Taken 02/08/23] albuterol sulfate 90 mcg/actuation aerosol inhaler (Ventolin HFA) 1 - 2 puff inhalation PRN PRN Sob &/Or Wheezing 05/18/18 [History Last Taken 02/08/23] epinephrine 0.3 mg/0.3 mL injection, auto-injector 0.3 mg (0.3 mL) IM X1 ##1 01/21/19 [Rx Last Taken Unknown] ipratropium 0.5 mg-albuterol 3 mg (2.5 mg base)/3 mL nebulization soln 3 ml inhalation BID 08/31/21 [History Last Taken 02/08/23] Allergy/AdvReac Type Severity Reaction Status Date / Time peanut Allergy Anaphylaxis Verified 12/30/22 20:35 tree nut [Tree Nut] Allergy Anaphylaxis Verified 12/30/22 20:35 Family History Mother COPD (chronic obstructive pulmonary disease) Hypertension Father Epilepsy Surgical History History of bilateral ligation of fallopian tubes History of cholecystectomy Social History household members: none Smoking Status: Current every day smoker tobacco type: cigarettes alcohol intake: former substance use type: marijuana ROS ROS ED Constitutional Constitutional ED: Denies chills, fever(s) or sweats Eyes Eyes: Denies change in vision ENT ENT ED: Denies dysphagia or sore throat Cardiovascular Cardiovascular: Denies chest pain, leg edema, palpitations or racing heartbeat Respiratory/Chest Respiratory/Chest: Denies cough, dyspnea or dyspnea on exertion Gastrointestinal Gastrointestinal: Reports abdominal pain and nausea; Denies diarrhea or vomiting Genitourinary Genitourinary ED: Reports other Details: Possible hematuria ; Denies dysuria, hematuria or urinary frequency Musculoskeletal Musculoskeletal: Reports back pain; Denies extremity pain or neck pain Integumentary Denies rash or wounds Neurologic Neurologic: Denies headache(s), paresthesias or weakness EXAM Physical Exam Const Vital Signs: 02/08/23 11:27 Temperature 97.4 F L Temperature Source Temporal Pulse Rate 107 H Respiratory Rate 18 Blood Pressure 116/85 H Blood Pressure Mean 95 Pulse Ox 100 Oxygen Delivery Method Room Air Positive well nourished and well developed Constitutional Narrative: Tearful and onto oxygen General Appearance ED: well developed and NAD HEENT Reports moist mucous membranes normocephalic and atraumatic Eyes PERRL, EOMs intact bilaterally and conjunctivae normal General Eye ED: Yes normal appearance of both eyes Neck no lymphadenopathy and supple General: Negative for tenderness Chest Wall Chest: Negative for tenderness Resp normal respiratory effort and normal air movement Effort and Inspection: symmetric chest movement; Negative for respiratory distress Cardio regular rate, regular rhythm and no murmurs Peripheral Pulses: pulses 2+ throughout GI normal to inspection, nondistended, normoactive bowel sounds GI Narrative: Tender palpation right lower quadrant. No guarding or rebound. Palpation: Negative for guarding or rebound tenderness present Back/Spine no CVA tenderness and no thoracic nor lumbar tenderness Extremity normal to inspection General Extremety ED: Negative for edema or tenderness General Extremity: Negative for edema Neuro oriented x3 and no sensory deficits noted Sensorium / Orientation: awake and alert Skin no rashes or lesions noted and no wounds Sepsis Attestation Sepsis Alert: Yes Sepsis Attestation: Agree w/Sepsis Date exam was performed: 02/08/23 Time exam was performed: 13:53 Possible Source of Sepsis: GI tract/intra-abdominal and Genitourinary MDM MDM MDM Narrative Medical decision making narrative: Interventions / MDM: Differential diagnosis: Abdominal pain, appendicitis, kidney stones Diagnosis considered but do not suspect: N/A My EKG interpretation: N/A Imaging independently reviewed and interpreted by myself: CT abdomen pelvis: External documents reviewed: N/A Test considered but not ordered:N/A ED course: Patient with intermittent pain flank that radiates to her right lowerabdomen. Tender right lower quadrant. History of concern for kidney stones however possible appendicitis. Abdominal labs drawn fluids Zofran and morphine ordered. CT scan ordered for further evaluation. 1350: White count returned at 24.7 been. Left shift with neutrophils. Creatinine 0.98. Tachycardic on arrival. 2 out of 4 SIRS. Urine did note in for patient. Culture urine pending. Blood cultures and lactic acid added Zosynstarted. Pending CT results at this time. 1400: CT scan with notes signs of pyelonephritis no obstructive stone noted. 1457: Patient increasing continued pain. Additional morphine was or ordered. Discussed hospitalist service for admission. Lactic 0.9. I discussed with Dr. Bustamante for admission. Re-evaluation: stable Disposition discussed with patient/family/significant other: Case discussed with consulting clinician: N/A This note was generated with [employer] dictation software. It may contain incorrectwords, spelling, and punctuation that were not noted in checking the note beforesigning. Lab Data Attestation: I reviewed the patient's lab results. Labs: Laboratory Results - last 24 hr 02/08/23 02/08/23 02/08/23 12:45 13:00 14:06 WBC 24.7 H RBC 5.15 Hgb 14.4 Hct 46.1 MCV 89.5 MCH 28.0 MCHC 31.2 L RDW Std Deviation 44.7 H RDW Coeff of Madhu 13.7 Plt Count 388 MPV 9.4 Immature Gran % (Auto) 0.800 Neut % (Auto) 82.0 H Lymph % (Auto) 8.4 L Vermillion % (Auto) 8.3 Eos % (Auto) 0.1 Baso % (Auto) 0.4 Absolute Neuts (auto) 20.3 H Absolute Lymphs (auto) 2.07 Nucleated RBC % 0 Differential Comment SCANNED Diff Path Review May foll Sodium 134 L Potassium 3.7 Chloride 100 Carbon Dioxide 31.0 Anion Gap 3 L BUN 11 Creatinine 0.98 Est GFR (MDRD) Af Amer 75 Est GFR (MDRD) Non-Af 62 BUN/Creatinine Ratio 11.2 Glucose 90 Lactic Acid 0.9 Calcium 8.8 Magnesium 1.8 Total Bilirubin 1.30 H AST 28 ALT 18 Alkaline Phosphatase 124 H Total Protein 7.3 Albumin 3.1 L Globulin 4.2 Albumin/Globulin Ratio 0.7 L Lipase 14 Urine Color Brown Urine Clarity Cloudy Urine pH 6.5 Ur Specific Wingate 1.015 Urine Protein 100 H Urine Glucose (UA) Normal Urine Ketones 50 H Urine Occult Blood 250 H Urine Nitrite Positive H Urine Bilirubin 1 H Urine Urobilinogen 4 H Ur Leukocyte Esterase 500 H Urine RBC > 100 SEEN Urine WBC >100 SEEN Ur Squamous Epith Cells 0 SEEN Urine Bacteria 1+ Urine Mucus 0 SEEN Radiography Diagnostic Testing: Clinical Impression(s) from Imaging Studies Abdomen/Pelvis CT 02/08/23 12:29 IMPRESSION: Mild degree of right perinephric stranding and mild right hydronephrosis although no obstructive calculus is seen at this time. A recently passed calculus cannot be ruled out. Stable nonobstructive crackers and the left kidney. Small hiatal hernia with the stable thickening of the distal esophagus. Electronically Signed: Ayaz Parker MD at 13:52 EDT , Discharge Plan Dx/Rx/DC Orders Clinical Impression: Acute right flank pain, Acute pyelonephritis, Leukocytosis Disposition Disposition: Acute Care Hospital [facility] Discharge Date/Time: 02/08/23 16:06 What to do if you have Problems For any increased pain, shortness of breath, bleeding, nausea or vomiting, chestpain, or any unexpected problems, contact your Primary Care Provider. Call [facility] ([phone]) or report to the closest Emergency Room. Call 911 if necessary. 02/08/231722 <Electronically signed by Omega Marroquin> Cosigner Signature (if applicable): CC: Dr. Ivette Welsh MD ~ Signed [facility] Work Phone: [phone]) 397-810307-24-2023 History and physical note Author Jama Bustamante [facility] February 08, 2023 4:09pm Note Date/Time February 08, 2023 3:04 pm [facility] Medical Records Department [address] [place] [id number] H&P Exam - Hospitalist 02/08/23 1501 MR#: [id number] Acct: [id number] Name: BRANDEESAVANNAHXander WALLER Rep #:[id number] : 1965 57 From: Jama East PCP: Dr. Ivette Welsh MD Status:AD M IN Location: [facility]-4 HPI - General General Date of Admission: 02/08/23 Date of Service: 02/08/23 Chief Complaint: Right-sided flank pain and abdominal pain. Mild hematuria HPI Narrative SAVANNAH IRVIN, is a 57 F history of COPD/asthma came to ER with right-sided flank pain for 4 days. Patient is also shivering and chills that started yesterday night. She did not measure fever. She complains of blood mixed with urine, pinkish in color. Patient has mild nausea but no vomiting. She denies burning micturition but has increased frequency, urgency, incomplete emptying of bladderand dribbling of urine. She does not get frequent UTI last time was about 3 years ago. She stated she has history of kidney stone about 4- 5 years ago but did not require any procedure. She stated she had some procedure for 5 years ago but does not know what it was. She denies having cystoscopy, lithotripsy, pediatricstenting or percutaneous nephrostomy. She does not see a urologist. She has a history of substance use in the past and depression and states she hadhistory of suicidal attempt 2 times in the past last 1 more than 10 years ago. She is anxious and fearful. [facility] Medical History Alcohol abuse Asthma Chronic pain COPD (chronic obstructive pulmonary disease) Kidney stones Pulmonary embolism Sleep apnea Smoker Stroke/cerebrovascular accident Substance abuse TIA (transient ischemic attack) Home Medications albuterol sulfate 2.5 mg/3 mL (0.083 %) solution for nebulization 2.5 mg (3 mL) inhalation Q4H PRN #25 vials 10/20/17 [Rx Last Taken 02/08/23] albuterol sulfate 90 mcg/actuation aerosol inhaler (Ventolin HFA) 1 - 2 puff inhalation PRN PRN Sob &/Or Wheezing 05/18/18 [History Last Taken 02/08/23] epinephrine 0.3 mg/0.3 mL injection, auto-injector 0.3 mg (0.3 mL) IM X1 ##1 01/21/19 [Rx Last Taken Unknown] ipratropium 0.5 mg-albuterol 3 mg (2.5 mg base)/3 mL nebulization soln 3 ml inhalation BID 08/31/21 [History Last Taken 02/08/23] Allergy/AdvReac Type Severity Reaction Status Date / Time peanut Allergy Anaphylaxis Verified 12/30/22 20:35 tree nut [Tree Nut] Allergy Anaphylaxis Verified 12/30/22 20:35 Family History Mother COPD (chronic obstructive pulmonary disease) Hypertension Father Epilepsy Surgical History History of bilateral ligation of fallopian tubes History of cholecystectomy Social History household members: none Smoking Status: Current every day smoker tobacco type: cigarettes alcohol intake: former substance use type: marijuana ROS ROS Narrative Constitutional: Reports fatigue and weakness. No fever. HEENT: Reports systems reviewed and no addt'l complaints, except as documented Respiratory/Chest: Chronic wheezing from COPD/asthma. No acute shortness of breath. CVS: No chest pain. No history of coronary artery disease. Gastrointestinal: Denies coffee ground emesis, hematemesis or vomiting Genitourinary: As described in HPI. Musculoskeletal: Denies acute joint pain or limited range of motion. No acute injury Neurologic: Denies seizure-like symptoms. No acute strokelike symptoms. Psychiatric: History of anxiety and depression. History of suicidal attempt. skin: No ulcer. Chronic rash in both legs seems venous Endocrinology: Reports systems reviewed and no addt'l complaints, except as documented Hematologic/Lymphatic: Reports systems reviewed and no addt'l complaints, exceptas documented Rest 14 ROS are negative except as mentioned in HPI Vital Signs Vital Signs Vital Signs: 02/08/23 11:27 Temperature 97.4 F L Temperature Source Temporal Pulse Rate 107 H Respiratory Rate 18 Blood Pressure 116/85 H Blood Pressure Mean 95 Pulse Ox 100 Oxygen Delivery Method Room Air Physical Exam Narrative General: Alert, Oriented x3, Cooperative HEENT: Atraumatic, PERRLA, EOMI, Normocephalic Oral: No Gingival or Mucosal Lesions/ Ulcerations Neck: Supple, No JVD, Negative Carotid Bruits Lungs: Air entry diminished in bilateral lung bases. No crepitation/rhonchi Cardiovascular: Regular rate, Regular Rhythm, Normal S1, Normal S2, No murmurs Abdomen: Bowel Sounds Present, Soft, tenderness present over right lumbar area, right umbilical area. : Tenderness present over right renal angle. Left renal angle no tenderness. Extremities: No edema, Capillary Refill Less than 3 Seconds Skin: Bilateral lower legs purpleish, venous lace like Network. Musculoskeletal: No Tenderness to Palpation of Joints or Extremities Neurological: Cranial nerves II-XII grossly intact, DTR 2+/4 and Symmetrical, Neuro grossly intact Psych/Mental Status: Looks depressed. Fearful. Results Lab / Micro Data 02/08/23 12:45 02/08/23 12:45 Labs: Laboratory Results - last 24 hr 02/08/23 12:45: WBC 24.7 H, RBC 5.15, Hgb 14.4, Hct 46.1, MCV 89.5, MCH 28.0, MCHC 31.2 L, RDW Std Deviation 44.7 H, RDW Coeff of Madhu 13.7, Plt Count 388, MPV9.4, Immature Gran % (Auto) 0.800, Neut % (Auto) 82.0 H, Lymph % (Auto) 8.4 L, Vermillion % (Auto) 8.3, Eos % (Auto) 0.1, Baso % (Auto) 0.4, Absolute Neuts (auto) 20.3 H, Absolute Lymphs (auto) 2.07, Nucleated RBC % 0, Differential Comment SCANNED, Diff Path Review November, Sodium 134 L, Potassium 3.7, Chloride 100, Carbon Dioxide 31.0, Anion Gap 3 L, BUN 11, Creatinine 0.98, Est GFR (MDRD) Af Amer 75, Est GFR (MDRD) Non-Af 62, BUN/Creatinine Ratio 11.2, Glucose 90, Calcium 8.8, Total Bilirubin 1.30 H, AST 28, ALT 18, Alkaline Phosphatase 124 H,Total Protein 7.3, Albumin 3.1 L, Globulin 4.2, Albumin/Globulin Ratio 0.7 L, Lipase 14 02/08/23 13:00: Urine Color Brown, Urine Clarity Cloudy, Urine pH 6.5, Ur Specific Wingate 1.015, Urine Protein 100 H, Urine Glucose (UA) Normal, Urine Ketones 50 H, Urine Occult Blood 250 H, Urine Nitrite Positive H, Urine Bilirubin 1 H, Urine Urobilinogen 4 H, Ur Leukocyte Esterase 500 H, Urine RBC > 100 SEEN, Urine WBC >100 SEEN, Ur Squamous Epith Cells 0 SEEN, Urine Bacteria 1+, Urine Mucus 0 SEEN 02/08/23 14:06: Lactic Acid 0.9 Radiology Impression Abdomen/Pelvis CT 02/08/23 12:29 IMPRESSION: Mild degree of right perinephric stranding and mild right hydronephrosis although no obstructive calculus is seen at this time. A recently passed calculus cannot be ruled out. Stable nonobstructive crackers and the left kidney. Small hiatal hernia with the stable thickening of the distal esophagus. Electronically Signed: Ayaz Parker MD at 13:52 EDT , Assessment & Plan Assessment/Plan (1) Acute pyelonephritis: PLAN: Plan This is a 57-year-old female came to ER for right flank pain and mild blood mixed urine, hematuria. 1. Right-sided pyelonephritis: Patient is being admitted in [facility] floor. Sheis not having sinus symptoms suggestive of sepsis. No recordable fever. No hypotension. Labs not suggestive of acute sepsis related organ dysfunction. Patient has leukocytosis, mild tachycardia. UA suggestive of pyuria, RBC more than 100 cells, LE positive, nitrite positive. Patient was given IV Zosyn in ED. Started on IV ceftriaxone 2 g daily. Blood and urine culture ordered. CT abdomen shows right perinephric stranding and mild right hydronephrosis althoughno obstructive calculus or uropathy seen. Stable 3 cm nonobstructive calculus in the midportion of left kidney. 2. COPD: Clinically stable. Continue DuoNeb every 6 hours, albuterol PRN. Incentive spirometry. 3. History of hypertension: Blood pressure is controlled. 4.. Current smoker, smokes cigarettes. Quit alcohol and substance use, historyof polysubstance use in the past: Nicotine patch ordered. 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 5. Anxiety and depression history of suicidal attempt more than 10 years ago: Patient states she is not on an antidepression medication. Living will/advanced directive/end of life care: Patient does not have living will or advanced directive or designated power of business attorney for health. After discussion of benefits/risks procedures involved with full code, DNR CC arrest and DNR CC, the patient opted for full code. Patient does want artificial life support including intubation, tube feed, ventilator and/chest compression, central venous catheter, vasopressor and DC shock if needed Total time spent in [id number] encounter in discussion of advanced directive 17 minutes. Laboratory Results 02/08/23 12:45: WBC 24.7 H, RBC 5.15, Hgb 14.4, Hct 46.1, MCV 89.5, MCH 28.0, MCHC 31.2 L, RDW Std Deviation 44.7 H, RDW Coeff of Madhu 13.7, Plt Count 388, MPV9.4, Immature Gran % (Auto) 0.800, Neut % (Auto) 82.0 H, Lymph % (Auto) 8.4 L, Vermillion % (Auto) 8.3, Eos % (Auto) 0.1, Baso % (Auto) 0.4, Absolute Neuts (auto) 20.3 H, Absolute Lymphs (auto) 2.07, Nucleated RBC % 0, Differential Comment SCANNED, Diff Path Review November, Sodium 134 L, Potassium 3.7, Chloride 100, Carbon Dioxide 31.0, Anion Gap 3 L, BUN 11, Creatinine 0.98, Est GFR (MDRD) Af Amer 75, Est GFR (MDRD) Non-Af 62, BUN/Creatinine Ratio 11.2, Glucose 90, Calcium 8.8, Total Bilirubin 1.30 H, AST 28, ALT 18, Alkaline Phosphatase 124 H, Total Protein 7.3, Albumin 3.1 L, Globulin 4.2, Albumin/Globulin Ratio 0.7 L, Lipase 14 02/08/23 13:00: Urine Color Brown, Urine Clarity Cloudy, Urine pH 6.5, Ur Specific Wingate 1.015, Urine Protein 100 H, Urine Glucose (UA) Normal, Urine Ketones 50 H, Urine Occult Blood 250 H, Urine Nitrite Positive H, Urine Bilirubin 1 H, Urine Urobilinogen 4 H, Ur Leukocyte Esterase 500 H, Urine RBC > 100 SEEN, Urine WBC >100 SEEN, Ur Squamous Epith Cells 0 SEEN, Urine Bacteria 1+, Urine Mucus 0 SEEN 02/08/23 14:06: Lactic Acid 0.9 Clinical Impression(s) from Imaging Studies Abdomen/Pelvis CT 02/08/23 12:29 IMPRESSION: Mild degree of right perinephric stranding and mild right hydronephrosis although no obstructive calculus is seen at this time. A recently passed calculus cannot be ruled out. Stable nonobstructive crackers and the left kidney. Small hiatal hernia with the stable thickening of the distal esophagus. Charges/Coding Visit Charges Inpatient E&M: 28621 Init Hosp L3 Procedures Hospitalists Procedures: 71340 Advncd Care Plan 30 Min 02/08/23 1609 <Electronically signed by Jama Bustamante MD> Cosigner Signature (if applicable): CC: Dr. Ivette Welsh MD; Dr. Jama Bustamante MD~ Signed [facility] Work Phone: 1([phone]) 460-909506-05-2023 Miscellaneous Notes* Telephone Encounter - Manoj Davidson APRN.CNP - 12/21/2022 12:25 PM EDT The following approved medication requests have been transmitted electronically. Requested Prescriptions Pending Prescriptions Disp Refills albuterol HFA (VENTOLIN HFA) 90 mcg/actuation inhaler 18 g 5 Sig: inhale 2 puffs by mouth every 4 hours as directed if needed for wheezing shortness of breath Manoj Davidson APRN.STEFANO * Telephone Encounter - Lindsay Muse MA - 12/21/2022 12:17 PM EDT Patient phones requesting refills as follows: Requested Prescriptions Pending Prescriptions Disp Refills albuterol HFA (VENTOLIN HFA) 90 mcg/actuation inhaler 18 g 5 Sig: inhale 2 puffs by mouth every 4 hours as directed if needed for wheezing shortness of breath Please review and advise. Lindsay Muse MA [facility] History of Present illness Narrative* Aye Zarate, RT(R) - 11/13/2022 4:50 PM EDT Radiology Service Progress Note PATIENT NAME: Savannah Irvin DATE OF SERVICE: November 13, 2022 TIME: 4:46 PM PATIENT IDENTITY VERIFICATION COMPLETED USING TWO (2) IDENTIFIERS: Name and Date of confirmedby patient verbally. FALL SCREENING: Has the patient had 2 falls in the last year or 1 fall with injury or currently using an Ambulatory Assistive Device (Walker, Cane, Wheelchair, Crutches, etc.)? No PATIENT GENDER DATA: Female. status: : No status: NO. PATIENT RELEVANT IMPLANT DATA REVIEWED: Yes RADIOLOGY DEPARTMENT: General X-ray: Exam(s) Completed: Chest X-Ray PERIPHERAL IV DATA: Not applicable SIGNED BY: RT Francie(R) November 13, 2022 4:46 PM documented in this encounterC[facility] Leos [facility] September 09, 2022 5:47am Note Date/Time September 09, 2022 3:16am [facility] Medical Records Department [address] [place] [address] Emergency Department Summary 09/09/22 MR#: [id number] Acct: [id number] Name: SAVANNAH IRVIN Rep #:[id number] : [id number] From: Reymundo Leos MD PCP: Dr. Ivette Welsh MD Status:RE G ER Location: ED HPI HPI - GI History of Present Illness Chief Complaint: Abd Pain Informant: patient Abdominal Pain/Flank Pain Onset: Weeks (1) Context: Gradual Onset Timing: Continuous Quality: Aching Location: RLQ and Right Flank Current Severity: Severe Maximum Severity: Severe Worsened by: Nothing Relieved by: Nothing Nausea/Vomiting/Emesis GI Symptom: Positive for Vomiting (On occasion chronically for over a year, separate from this abdominal pain and no worse) Diarrhea/Melena/Hematochezia GI Symptom: Negative for Diarrhea, Melena or Hematochezia Associated Symptoms Associated Symptoms: Negative for Dysuria, Frequency or Hematuria Narrative Narrative: Patient presenting for pain that started in her right abdomen and occasionally radiates into her right low back, no urinary symptoms. No fevers or chills. Nochanges in her appetite which is chronically poor. Also states separately, for the last 2 days she has had gradual onset and progressively worsening pain in right mandibular molar and now it is swollen. No spontaneous discharge or bleeding. Has not seen anybody yet for either of these problems. History of cholecystectomy no other abdominal surgeries. [facility] Medical History Alcohol abuse Asthma Chronic pain COPD (chronic obstructive pulmonary disease) Dialysis patient Kidney stones Low back pain Pulmonary embolism Sleep apnea Smoker Stroke/cerebrovascular accident Substance abuse TIA (transient ischemic attack) Home Medications albuterol sulfate 2.5 mg/3 mL (0.083 %) solution for nebulization 2.5 mg (3 mL) inhalation Q4H PRN #25 vials 10/20/17 [Rx Last Taken 05/18/18] albuterol sulfate 90 mcg/actuation aerosol inhaler (Ventolin HFA) 1 - 2 puff inhalation PRN PRN Sob &/Or Wheezing 05/18/18 [History Last Taken 03/20/19] epinephrine 0.3 mg/0.3 mL injection, auto-injector 0.3 mg (0.3 mL) IM X1 ##1 01/21/19 [Rx Last Taken Unknown] gabapentin 300 mg capsule 300 mg PO TID pain 03/21/19 [History Last Taken 03/19/19] doxycycline monohydrate 100 mg capsule 100 mg PO BID #20 caps 08/31/21 [Rx Last Taken Unknown] ipratropium 0.5 mg-albuterol 3 mg (2.5 mg base)/3 mL nebulization soln 3 ml inhalation BID 08/31/21 [History Last Taken Unknown] prednisone 20 mg tablet 60 mg PO DAILY #15 tabs 08/31/21 [Rx Last Taken Unknown] amoxicillin 500 mg tablet 500 mg PO TID #30 tabs 09/09/22 [Rx Last Taken Unknown] dicyclomine 10 mg capsule 20 mg PO Q6H PRN PRN abdominal discomfort #20 VYIANIEM58/22/23 [Rx Last Taken Unknown] Allergy/AdvReac Type Severity Reaction Status Date / Time peanut Allergy Anaphylaxis Verified 09/09/22 02:57 tree nut [Tree Nut] Allergy Anaphylaxis Verified 09/09/22 02:57 Family History Other COPD (chronic obstructive pulmonary disease) Cancer Surgical History History of bilateral ligation of fallopian tubes History of cholecystectomy Social History Smoking Status: Current every day smoker tobacco type: cigarettes substance use type: marijuana ROS ROS ED Constitutional Constitutional ED: Denies chills or fever(s) Eyes Eyes: Denies change in vision or diplopia ENT ENT ED: Reports as per HPI and dental pain; Denies rhinorrhea or sore throat Cardiovascular Cardiovascular: Denies chest pain or palpitations Respiratory/Chest Respiratory/Chest: Denies cough or dyspnea Gastrointestinal Gastrointestinal: Reports abdominal pain and vomiting; Denies diarrhea Genitourinary Genitourinary ED: Denies dysuria, hematuria or urinary frequency Musculoskeletal Musculoskeletal: Reports back pain; Denies neck pain Integumentary Denies abscess or rash Neurologic Neurologic: Denies headache(s), paresthesias or weakness Psychiatric Psychiatric: Denies anxiety or suicidal thoughts EXAM Physical Exam Const Vital Signs: 09/09/22 02:50 Temperature 96.9 F L Temperature Source Temporal Pulse Rate 115 H Respiratory Rate 20 H Blood Pressure 173/115 H Blood Pressure Mean 134 Pulse Ox 98 Oxygen Delivery Method Room Air Positive well nourished and well developed General Appearance ED: well developed and NAD HEENT Reports moist mucous membranes HEENT Narrative: Fillings present in the right mandibular molars, tender tooth #32 with associated small abscess without spontaneous drainage or bleeding or evidence ofgingivitis. No trismus. No submental edema or tongue elevation. Swelling fromthe small abscess is visible externally along the angle of the mandible, this area is tender but not erythematous. Not able to discern definite fluctuance. normocephalic and atraumatic Eyes PERRL and EOMs intact bilaterally Neck full ROM, no lymphadenopathy and supple Resp normal respiratory effort and clear to auscultation bilaterally Cardio regular rate, regular rhythm and no murmurs GI non-distended GI Narrative: Tender in her right lower quadrant especially at McBurney's point. Mild tenderness throughout the rest of the right abdomen, but minimally tender in theright upper quadrant area. Negative Rovsing, negative obturator, positive psoas. Auscultation: normoactive bowel sounds Palpation: soft Back/Spine no CVA tenderness General Back: other FROM Extremity normal to inspection General Extremety ED: Negative for edema, pulses abnormal or tenderness General Extremity: Negative for edema or pulses abnormal Neuro oriented x3, CN's II-XII intact bilaterally and no sensory deficits noted Sensorium / Orientation: awake and alert Motor Exam: strength 5/5 throughout Psych Mood & Affect: anxious Skin no rashes or lesions noted and no wounds MDM MDM MDM Narrative Medical decision making narrative: With regards to the patient's dental abscess, I advised antibiotics and I recommended bedside needle aspiration. She refused a needle aspiration and justwants to do antibiotics understanding that the risk is only that of pain, and aspirating purulent material will make it likely get better quicker. She understands that. With regards to her right-sided abdominal pain, my main concern was appendicitisalthough certainly on the differential are mimics as well. Labs and a CT were obtained, she does have a leukocytosis of 18.7, however she always has a leukocytosis every time it seems to be checked, and this time she does not have a left shift or bandemia. The rest of her labs and urinalysis are normal, I reviewed the CT images and they are unremarkable. Radiologist is in agreement, no signs of appendicitis or any other acute abnormality except for the possibility of a left nephrolith nonobstructing. My interpretation of the CT agrees with that of the radiologist. At this time the cause of her right-sided abdominal pain is unknown, her LFTs are normal except for slight elevation of alkaline phosphatase which is nonspecific. Close outpatient follow-up advised, we will treat her with amoxicillin for the dental abscess. Lab Data Attestation: I reviewed the patient's lab results. Labs: Laboratory Results - last 24 hr 09/09/22 09/09/22 09/09/22 02:58 02:58 05:02 WBC 18.7 H RBC 5.29 Hgb 14.8 Hct 47.2 H MCV 89.2 MCH 28.0 MCHC 31.4 L RDW Std Deviation 44.9 H RDW Coeff of Madhu 13.7 Plt Count 580 H MPV 9.8 Immature Gran % (Auto) 0.500 Neut % (Auto) 67.1 Lymph % (Auto) 22.5 Vermillion % (Auto) 7.4 Eos % (Auto) 2.0 Baso % (Auto) 0.5 Absolute Neuts (auto) 12.6 H Absolute Lymphs (auto) 4.21 Nucleated RBC % 0 Sodium 137 Potassium 4.5 Chloride 101 Carbon Dioxide 29.0 Anion Gap 7 BUN 14 Creatinine 0.90 Estim Creat Clear Calc 60.27 Est GFR (MDRD) Af Amer 83 Est GFR (MDRD) Non-Af 69 BUN/Creatinine Ratio 15.5 Glucose 89 Calcium 9.6 Total Bilirubin 0.40 AST 30 ALT 22 Alkaline Phosphatase 128 H Total Protein 8.2 Albumin 3.5 Globulin 4.7 H Albumin/Globulin Ratio 0.7 L Urine Color Yellow Urine Clarity Clear Urine pH 7.0 Ur Specific Wingate 1.010 Urine Protein Negative Urine Glucose (UA) Normal Urine Ketones Negative Urine Occult Blood 10 H Urine Nitrite Negative Urine Bilirubin Negative Urine Urobilinogen Normal Ur Leukocyte Esterase Negative Radiography Diagnostic Testing: Clinical Impression(s) from Imaging Studies Abdomen/Pelvis CT 09/09/22 03:11 IMPRESSION: undefined Discharge Plan Triage Chief Complaint: Abd Pain ED Provider: Reymundo Leos Dx/Rx/DC Orders Clinical Impression: Right-sided abdominal pain of unknown cause, Dental abscess Instructions: Abdominal Pain, Dental Abscess Prescriptions: New amoxicillin 500 MG tablet 500 mg PO TID Qty: 30 0RF dicyclomine 10 MG capsule 20 mg PO Q6H PRN PRN (Reason: abdominal discomfort) Qty: 20 0RF No Action albuterol sulfate 2.5 MG/3 ML solution for nebulization 2.5 mg INHALATION Q4H PRN Qty: 25 0RF Rx Instructions: Use q4 hours and PRN for wheezing albuterol sulfate [Ventolin HFA] 18 GM HFA aerosol inhaler 1 - 2 puff inhalation PRN PRN (Reason: Sob &/Or Wheezing) Label Comments: inhale 2 puffs by mouth every 4 hours as directed if needed for wheezing or shortness of breath epinephrine 0.3 MG syringe 0.3 mg IM X1 Qty: 1 1RF gabapentin 300 capsule 300 mg PO TID ipratropium-albuterol 0.5 mg-3 mg(2.5 mg base)/3 mL solution for nebulization 3 ml inhalation BID Label Comments: inhale contents of 1 vial in nebulizer as directed every 6 hours ... (REFER TO PRESCRIPTION NOTES). prednisone 20 MG tablet 60 mg PO DAILY Qty: 15 0RF doxycycline monohydrate 100 MG capsule 100 mg PO BID Qty: 20 0RF Primary Care Provider: Ivette Welsh Referrals: Ivette Welsh MD [Primary Care Provider] - 3-5 Days if not improving Dentist,Your [STAFF PHYSICIAN] - As soon as possible Disposition Disposition: Home, Self Care What to do if you have Problems For any increased pain, shortness of breath, bleeding, nausea or vomiting, chestpain, or any unexpected problems, contact your Primary Care Provider. Call [facility] ([phone]) or report to the closest Emergency Room. Call 911 if necessary. 09/09/22 0539 <Electronically signed by Reymundo Leos MD> Cosigner Signature (if applicable): CC: Dr. Ivette Welsh MD ~ Signed [facility] Work Phone: 1(501) 780-228712-12-2022 History of Present illness Narrative* Susanna Lazar Population Health Navigator - 06/29/2022 11:53 AM EST POPULATION HEALTH NAVIGATION OUTREACH Action/I HCC gaps- Diagnosis with HCC gap left: M47.812 - Cervical spine arthritis F10.11 - Alcohol abuse, in remission Outcome- lvm/sent [facility] to return call and schedule an appt to verify/establish care with provider at [facility] if needed. Last office visit- 09-29-21 No future appt scheduled- verify pcp/establish care if needed Also due/discuss- bp, mammogram, flu vaccine Pt identified by name and : NO Outreach Outcome/Action Unable to reach patient: Left message [facility] message sent Did you use a PCP flex slot to schedule this appointment? N/A Reason for Outreach HCC or suspected condition Payer: Payor: [facility] MEDICAID / Plan: [facility] MEDICAID / Product Type: Medicaid / Care Gap Reviewed:: Annual Wellness visit Breast Cancer screening Controlling Blood Pressure Flu vaccine Reminder: Reminder note to check Health Maintenance for items below Health Maintenance items due: HEPATITIS B(1 of 3 - 3-dose series) Never done PNEUMOCOCCAL(1 - PCV) Never done BP CONTROLLED (<130/80) Never done MAMMOGRAM due on 10/17/2014 SHINGRIX VACCINE(1 of 2) Never done PAP TESTING due on 08/04/2017 HPV TESTING due on 08/04/2017 DTAP,TDAP,TD(2 - Td or Tdap) due on 03/03/2022 INFLUENZA(1) due on 03/19/2022 DIABETES SCREEN due on 03/31/2022 Navigation Signature: Susanna Lazar [facility] Health Navigator June 29, 2022 11:53 AM documented in this encounterC[facility]12-07-[facility] History of Present illness Narrative* Marko Sanchez - 06/24/2022 11:43 AM EST Savannah Irvin is identified through a medication adherence outreach initiative based on pharmacy claims data from [employer] (insurer) for [facility] medication(s). Patient is reviewed 06/24/22 due to medication adherence concerns with the following medications: Lisinopril 10mg Per data report last fill date and days supply: 09/29/2021 for a 30 day supply Per call to pharmacy last fill date and days supply: Changed to losartan 25mg, last filled on 10/08/2021 for a 30 day supply Contacted patient: Number has been disconnected Outcome of review/outreach: - Medication changed or discontinued Per reconcile dispense and Per call to pharmacy Marko Sanchez * Jacquie Cortez RPh - 06/24/2022 11:43 AM EST Approving student documentation and outreach below. 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 10/12/2017 Thrombocytosis 12/10/2015 07/25/2020 Pulmonary embolus 11/07/2015 03/03/2017 Morbid obesity due to excess calories 10/30/2015 07/25/2020 Right-sided lacunar infarction 07/03/2015 0 07/25/2020 Overview: 06/2015: right middle frontal gyrus anteriorly Alcoholism 01/16/2015 03/26/2016 Alcohol abuse 11/30/2014 10/29/2015 Depression 12/31/2011 07/25/2020 Anaphylactic reaction 12/31/2011 09/03/2014 Cervicalgia 03/14/2007 09/03/2014 Lateral epicondylitis of elbow 03/09/2006 0 09/03/2014 Lesion of plantar nerve 03/09/2006 09/03/19 15 Sprain of neck 10/29/2005 09/03/2014 documented as of this encounter (statuses as of 06/25/2022) [facility] of Past illness Narrative* Problem Noted Date Resolved Date Seizure disorder 06/05/2016 10/12/2017 Rotator cuff syndrome of both shoulders 06/05/20 16 10/12/2017 Anemia due to GI blood loss 03/02/201602/16 Rectal bleeding 03/02/2016 03/03/2017 Chronic prescription opiate use 02/13/2016 10/12/2017 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 10/12/2017 Thrombocytosis 12/10/2015 07/25/2020 Pulmonary embolus 11/07/2015 03/03/2017 Morbid obesity due to excess calories 10/30/2015 07/25/2020 Right-sided lacunar infarction 07/03/2015 0 07/25/2020 Overview: 06/2015: right middle frontal gyrus anteriorly Alcoholism 01/16/2015 03/26/2016 Alcohol abuse 11/30/2014 10/29/2015 Depression 12/31/2011 07/25/2020 Anaphylactic reaction 12/31/2011 09/03/2014 Cervicalgia 03/14/2007 09/03/2014 Lateral epicondylitis of elbow 03/09/2006 0 09/03/2014 Lesion of plantar nerve 03/09/2006 09/03/19 15 Sprain of neck 10/29/2005 09/03/2014 documented as of this encounter (statuses as of 06/29/2022) [facility] of Past illness Narrative* Problem Noted Date Resolved Date Seizure disorder 06/05/2016 10/12/2017 Rotator cuff syndrome of both shoulders 06/05/20 16 10/12/2017 Anemia due to GI blood loss 03/02/201602/16 Rectal bleeding 03/02/2016 03/03/2017 Chronic prescription opiate use 02/13/2016 10/12/2017 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 10/12/2017 Thrombocytosis 12/10/2015 07/25/2020 Pulmonary embolus 11/07/2015 03/03/2017 Morbid obesity due to excess calories 10/30/2015 07/25/2020 Right-sided lacunar infarction 07/03/2015 0 07/25/2020 Overview: 06/2015: right middle frontal gyrus anteriorly Alcoholism 01/16/2015 03/26/2016 Alcohol abuse 11/30/2014 10/29/2015 Depression 12/31/2011 07/25/2020 Anaphylactic reaction 12/31/2011 09/03/2014 Cervicalgia 03/14/2007 09/03/2014 Lateral epicondylitis of elbow 03/09/2006 0 09/03/2014 Lesion of plantar nerve 03/09/2006 09/03/19 15 Sprain of neck 10/29/2005 09/03/2014 documented as of this encounter (statuses as of 10/01/2022) [facility] of [facility] illness Narrative* Problem Noted Date Resolved Date Seizure disorder 06/05/2016 10/12/2017 Rotator cuff syndrome of both shoulders 06/05/20 16 10/12/2017 Anemia due to GI blood loss 03/02/201602/16 Rectal bleeding 03/02/2016 03/03/2017 Chronic prescription opiate use 02/13/2016 10/12/2017 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 10/12/2017 Thrombocytosis 12/10/2015 07/25/2020 Pulmonary embolus 11/07/2015 03/03/2017 Morbid obesity due to excess calories 10/30/2015 07/25/2020 Right-sided lacunar infarction 07/03/2015 0 07/25/2020 Overview: 06/2015: right middle frontal gyrus anteriorly Alcoholism 01/16/2015 03/26/2016 Alcohol abuse 11/30/2014 10/29/2015 Depression 12/31/2011 07/25/2020 Anaphylactic reaction 12/31/2011 09/03/2014 Cervicalgia 03/14/2007 09/03/2014 Lateral epicondylitis of elbow 03/09/2006 0 09/03/2014 Lesion of plantar nerve 03/09/2006 09/03/19 15 Sprain of neck 10/29/2005 09/03/2014 documented as of this encounter (statuses as of 11/23/2022) [facility] Narrative* Problem Noted Date Resolved Date Seizure disorder 06/05/2016 10/12/2017 Rotator cuff syndrome of both shoulders 06/05/20 16 10/12/2017 Anemia due to GI blood loss 03/02/201602/16 Rectal bleeding 03/02/2016 03/03/2017 Chronic prescription opiate use 02/13/2016 10/12/2017 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 10/12/2017 Thrombocytosis 12/10/2015 07/25/2020 Pulmonary embolus 11/07/2015 03/03/2017 Morbid obesity due to excess calories 10/30/2015 07/25/2020 Right-sided lacunar infarction 07/03/2015 0 07/25/2020 Overview: 06/2015: right middle frontal gyrus anteriorly Alcoholism 01/16/2015 03/26/2016 Alcohol abuse 11/30/2014 10/29/2015 Depression 12/31/2011 07/25/2020 Anaphylactic reaction 12/31/2011 09/03/2014 Cervicalgia 03/14/2007 09/03/2014 Lateral epicondylitis of elbow 03/09/2006 0 09/03/2014 Lesion of plantar nerve 03/09/2006 09/03/19 15 Sprain of neck 10/29/2005 09/03/2014 documented as of this encounter (statuses as of 12/21/2022) [facility] Narrative* Problem Noted Date Diagnosed Date Resolved Date Seizure disorder 06/05/2016 10/12/2017 Rotator cuff syndrome of both shoulders 06/05/2016 10/12/2017 Anemia due to GI blood loss 03/02/2016 03/03/2017 Rectal bleeding 03/02/2016 03/03/2017 Chronic prescription opiate use 02/13/2016 10/12/2017 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 8 Thrombocytosis 12/10/2015 07/25/2020 Pulmonary embolus 11/07/2015 03/03/2017 Morbid obesity due to excess calories 10/30/2015 07/25/2020 Right-sided lacunar infarction 07/03/2015 07/25/2020 Overview: 06/2015: right middle frontal gyrus anteriorly Alcoholism 01/16/2015 03/26/2016 Alcohol abuse 11/30/2014 10/29/2015 Depression 12/31/2011 07/25/2020 Anaphylactic reaction 12/31/20112014 Cervicalgia 03/14/2007 09/03/2014 Lateral epicondylitis of elbow 03/09/2006 09/03/2014 Lesion of plantar nerve 03/09/200608/19 Sprain of neck 10/29/2005 09/03/2014 documented as of this encounter (statuses as of 02/19/2023) [facility] of [facility] Narrative* Problem Noted Date Diagnosed Date Resolved Date Seizure disorder 06/05/2016 10/12/2017 Rotator cuff syndrome of both shoulders 06/05/2016 10/12/2017 Anemia due to GI blood loss 03/02/2016 03/03/2017 Rectal bleeding 03/02/2016 03/03/2017 Chronic prescription opiate use 02/13/2016 10/12/2017 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 8 Thrombocytosis 12/10/2015 07/25/2020 Pulmonary embolus 11/07/2015 03/03/2017 Morbid obesity due to excess calories 10/30/2015 07/25/2020 Right-sided lacunar infarction 07/03/2015 07/25/2020 Overview: 06/2015: right middle frontal gyrus anteriorly Alcoholism 01/16/2015 03/26/2016 Alcohol abuse 11/30/2014 10/29/2015 Depression 12/31/2011 07/25/2020 Anaphylactic reaction 12/31/20112014 Cervicalgia 03/14/2007 09/03/2014 Lateral epicondylitis of elbow 03/09/2006 09/03/2014 Lesion of plantar nerve 03/09/200608/19 Sprain of neck 10/29/2005 09/03/2014 documented as of this encounter (statuses as of 05/04/2023) [facility] Narrative* Problem Noted Date Diagnosed Date Resolved Date Seizure disorder 06/05/2016 10/12/2017 Rotator cuff syndrome of both shoulders 06/05/2016 10/12/2017 Anemia due to GI blood loss 03/02/2016 03/03/2017 Rectal bleeding 03/02/2016 03/03/2017 Chronic prescription opiate use 02/13/2016 10/12/2017 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 8 Thrombocytosis 12/10/2015 07/25/2020 Pulmonary embolus 11/07/2015 03/03/2017 Morbid obesity due to excess calories 10/30/2015 07/25/2020 Right-sided lacunar infarction 07/03/2015 07/25/2020 Overview: 06/2015: right middle frontal gyrus anteriorly Alcoholism 01/16/2015 03/26/2016 Alcohol abuse 11/30/2014 10/29/2015 Depression 12/31/2011 07/25/2020 Anaphylactic reaction 12/31/20112014 Cervicalgia 03/14/2007 09/03/2014 Lateral epicondylitis of elbow 03/09/2006 09/03/2014 Lesion of plantar nerve 03/09/200608/19 Sprain of neck 10/29/2005 09/03/2014 documented as of this encounter (statuses as of 05/12/2023) [facility] Narrative* Problem Noted Date Diagnosed Date Resolved Date Seizure disorder 06/05/2016 10/12/2017 Rotator cuff syndrome of both shoulders 06/05/2016 10/12/2017 Anemia due to GI blood loss 03/02/2016 03/03/2017 Rectal bleeding 03/02/2016 03/03/2017 Chronic prescription opiate use 02/13/2016 10/12/2017 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 8 Thrombocytosis 12/10/2015 07/25/2020 Pulmonary embolus 11/07/2015 03/03/2017 Morbid obesity due to excess calories 10/30/2015 07/25/2020 Right-sided lacunar infarction 07/03/2015 07/25/2020 Overview: 06/2015: right middle frontal gyrus anteriorly Alcoholism 01/16/2015 03/26/2016 Alcohol abuse 11/30/2014 10/29/2015 Depression 12/31/2011 07/25/2020 Anaphylactic reaction 12/31/20112014 Cervicalgia 03/14/2007 09/03/2014 Lateral epicondylitis of elbow 03/09/2006 09/03/2014 Lesion of plantar nerve 03/09/200608/19 Sprain of neck 10/29/2005 09/03/2014 documented as of this encounter (statuses as of 05/19/2023) [facility] Narrative* Problem Noted Date Diagnosed Date Resolved Date Seizure disorder 06/05/2016 10/12/2017 Rotator cuff syndrome of both shoulders 06/05/2016 10/12/2017 Anemia due to GI blood loss 03/02/2016 03/03/2017 Rectal bleeding 03/02/2016 03/03/2017 Chronic prescription opiate use 02/13/2016 10/12/2017 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 8 Thrombocytosis 12/10/2015 07/25/2020 Pulmonary embolus 11/07/2015 03/03/2017 Morbid obesity due to excess calories 10/30/2015 07/25/2020 Right-sided lacunar infarction 07/03/2015 07/25/2020 Overview: 06/2015: right middle frontal gyrus anteriorly Alcoholism 01/16/2015 03/26/2016 Alcohol abuse 11/30/2014 10/29/2015 Depression 12/31/2011 07/25/2020 Anaphylactic reaction 12/31/20112014 Cervicalgia 03/14/2007 09/03/2014 Lateral epicondylitis of elbow 03/09/2006 09/03/2014 Lesion of plantar nerve 03/09/200608/19 Sprain of neck 10/29/2005 09/03/2014 documented as of this encounter (statuses as of 06/18/2023) [facility] Narrative* Problem Noted Date Diagnosed Date Resolved Date Seizure disorder 06/05/2016 10/12/2017 Rotator cuff syndrome of both shoulders 06/05/2016 10/12/2017 Anemia due to GI blood loss 03/02/2016 03/03/2017 Rectal bleeding 03/02/2016 03/03/2017 Chronic prescription opiate use 02/13/2016 10/12/2017 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 8 Thrombocytosis 12/10/2015 07/25/2020 Pulmonary embolus 11/07/2015 03/03/2017 Morbid obesity due to excess calories 10/30/2015 07/25/2020 Right-sided lacunar infarction 07/03/2015 07/25/2020 Overview: 06/2015: right middle frontal gyrus anteriorly Alcoholism 01/16/2015 03/26/2016 Alcohol abuse 11/30/2014 10/29/2015 Depression 12/31/2011 07/25/2020 Anaphylactic reaction 12/31/20112014 Cervicalgia 03/14/2007 09/03/2014 Lateral epicondylitis of elbow 03/09/2006 09/03/2014 Lesion of plantar nerve 03/09/200608/19 Sprain of neck 10/29/2005 09/03/2014 documented as of this encounter (statuses as of 10/29/2023) [facility] History of Past illness Narrative* Problem Noted Date Diagnosed Date Resolved Date Seizure disorder 06/05/2016 10/12/2017 Rotator cuff syndrome of both shoulders 06/05/2016 10/12/2017 Anemia due to GI blood loss 03/02/2016 03/03/2017 Rectal bleeding 03/02/2016 03/03/2017 Chronic prescription opiate use 02/13/2016 10/12/2017 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 8 Thrombocytosis 12/10/2015 07/25/2020 Pulmonary embolus 11/07/2015 03/03/2017 Morbid obesity due to excess calories 10/30/2015 07/25/2020 Right-sided lacunar infarction 07/03/2015 07/25/2020 Overview: 06/2015: right middle frontal gyrus anteriorly Alcoholism 01/16/2015 03/26/2016 Alcohol abuse 11/30/2014 10/29/2015 Depression 12/31/2011 07/25/2020 Anaphylactic reaction 12/31/20112014 Cervicalgia 03/14/2007 09/03/2014 Lateral epicondylitis of elbow 03/09/2006 09/03/2014 Lesion of plantar nerve 03/09/200608/19 Sprain of neck 10/29/2005 09/03/2014 documented as of this encounter (statuses as of 11/01/2023) [facility] Author Sri Chavez [facility] February 11, 2023 10:01am Note Date/Time February 11, 2023 10:0 1am [facility] Medical Records Department [address] [place] [address] Counseling Note - Pharmacy 02/11/23 1000 MR#: [id number] Acct: [id number] Name: SAVANNAH IRVIN Rep #:[id number] : 1965 57 From: Sri Chavez PCP: Dr. Ivette Welsh MD Status:AD M IN Location: [facility] YC171-5 Pharmacy [facility] Service has performed discharge medication reconciliation and counseling for this patient. The patient was counseled on the following discharge medications and changes in medications for homegoing were reviewed. 1. CIPROFLOXACIN The Reason for Use, instructions for use, and potential side effects were reviewed for all new medications. The patient's questions regarding all of their medications were answered. The patient was able to verbally demonstrate an understanding of their dischargemedications. The patient's discharge medication list was reviewed for discrepancies and discrepancies were resolved. Patient counselled by Cricket Kennedy PharmD Candidate 02/11/23 1001 <Electronically signed by Sri Chavez > Date _ Sri Chavez Cosigner Signature (if applicable): Date CC: ~ Signed [facility] Work Phone: Discharge summary Author Nito Thorne [facility] June 05, 2023 1:22pm Note Date/Time June 05, 2023 1:18pm [facility] Medical Records Department [address] [place] [address] Discharge Summary 06/05/23 1314 MR#: [id number] Acct: [id number] Name: SAVANNAH IRVIN Rep #:[id number] : 1965 57 From: Nito Thorne DO PCP: Dr. Ivette Welsh MD Status:AD M [place]AN[place] Location: [place] [address] Providers Date of Admission: 06/04/23 Primary Care Physician: Dr. Ivette Welsh MD Reason For Visit: COPD EXACEBERATION, HYPOTENSIVE URGENCY Diagnosis Discharge Diagnosis (1) COPD exacerbation: Status: Chronic Code(s): J44.1 - Chronic obstructive pulmonary disease with (acute) exacerbation Plan: Acute COVID 19 negative. CTA chest personally reviewed and showed no acute process. Currently on room air. DC methylprednisolone changed over to prednisone 40 mg daily. Check an ambulatory pulse ox. COPD is a suspected diagnosis as has been what she is told she has had before. However, patient has never had PFTs or seen a animal care supervisor before. I would be concerned patient has underlying asthma as a not release any clear evidence of COPD on her CAT scan. Recommend she follow-up with pulmonology to have PFTs andfurther chronic maintenance medications. She does state that she would require DuoNebs upon discharge. (2) Hypertension, accelerated: Status: Acute Code(s): I10 - Essential (primary) hypertension Plan: Much improved at this time. On amlodipine and hydrochlorothiazide (3) Esophagitis: Status: Acute Code(s): K20.90 - Esophagitis, unspecified without bleeding Plan: Unclear significance. Incidental finding on CAT scan. Continue with PPI and follow-up with gastroenterology as outpatient. Patient states that she has had endoscopy in the past. Did discuss with patientthat this may be esophagitis but should have an EGD as outpatient. Patient has been modifying her diet anyways with soft diet and liquids. Recommend she continue with that. We will discharge with Protonix twice daily. Plan DVT prophylaxis: Lovenox ordered. Medications at Discharge Home Medications albuterol sulfate 2.5 mg/3 mL (0.083 %) solution for nebulization 2.5 mg (3 mL) inhalation Q4H PRN #25 vials 10/20/17 albuterol sulfate 90 mcg/actuation aerosol inhaler (Ventolin HFA) 1 - 2 puff inhalation PRN PRN Sob &/Or Wheezing 05/18/18 epinephrine 0.3 mg/0.3 mL injection, auto-injector 0.3 mg (0.3 mL) IM X1 ##1 01/21/19 amlodipine 5 mg tablet 5 mg PO DAILY #30 tabs 06/05/23 hydrochlorothiazide 12.5 mg capsule 12.5 mg PO DAILY #30 caps 06/05/23 ipratropium 0.5 mg-albuterol 3 mg (2.5 mg base)/3 mL nebulization soln 3 ml inhalation BID #180 mL 06/05/23 pantoprazole 40 mg tablet,delayed release (Protonix) 40 mg PO Q12H #60 tabs 06/05/23 prednisone 20 mg tablet 40 mg (2 x 20 mg) PO BREAKFAST #10 tabs 06/05/23 Hospital Course Operations None Procedures None Summary of Care Provided Minutes Spent on Discharge: 32 Hospital Course: Patient presents with COPD exacerbation. Diagnosis of COPD is questionable as patient has never had formal pulmonary function test. Patient did respond with steroids so she will be discharged with prednisone burst. She is also requesting DuoNebs which she takes at home to be continued. Patient also had diagnosis of esophagitis on CAT scan. Patient will be on Protonix twice daily with follow-up with GI. Patient has been modifying her diet with liquids and soft diet but still has periods where she regurgitates food. If this continues to be an ongoing issue she may need to have GI see her in the hospital but she has been doing fine since has been here. Weight / BMI Weight Weight: 76.4 kg Body Mass Index (BMI) 28.9 ABG / Lab / Microbiology Data 06/05/23 07:21 06/05/23 07:21 Laboratory: Laboratory Results - last 24 hr 06/04/23 21:30: WBC 13.7 H, RBC 5.13, Hgb 14.2, Hct 45.1, MCV 87.9, MCH 27.7, MCHC 31.5 L, RDW Std Deviation 44.2 H, RDW Coeff of Madhu 13.7, Plt Count 558 H, MPV 9.3, Immature Gran % (Auto) 0.300, Neut % (Auto) 61.9, Lymph % (Auto) 24.9, [place] % (Auto) 8.1, Eos % (Auto) 4.2, Baso % (Auto) 0.6, Absolute Neuts (auto) 8.5 H, Absolute Lymphs (auto) 3.40, Nucleated RBC % 0, Sodium 141, Potassium 3.5, Chloride 106, Carbon Dioxide 29.0, Anion Gap 6, BUN 15, Creatinine 0.92, Estim Creat Clear Calc 58.96, Est GFR (MDRD) Af Amer 81, Est GFR (MDRD) Non-Af 67, BUN/Creatinine Ratio 16.3, Glucose 102, Calcium 9.1, Total Bilirubin 0.40, Direct Bilirubin 0.12, AST 14 L, ALT 18, Alkaline Phosphatase 114, Troponin I High Sens 12, Total Protein 7.9, Albumin 3.5, Globulin 4.4 H 06/05/23 07:21: WBC 8.9, RBC 4.85, Hgb 13.5, Hct 43.0, MCV 88.7, MCH 27.8, MCHC 31.4 L, RDW Std Deviation 44.9 H, RDW Coeff of Madhu 13.9, Plt Count 544 H, MPV 9.6, Immature Gran % (Auto) 0.500, Neut % (Auto) 88.4 H, Lymph % (Auto) 10.5 L, [place] % (Auto) 0.5, Eos % (Auto) 0.0, Baso % (Auto) 0.1, Absolute Neuts (auto) 7.9 H, Absolute Lymphs (auto) 0.93, Nucleated RBC % 0, Sodium 138, Potassium 3.4L, Chloride 106, Carbon Dioxide 24.0, Anion Gap 8, BUN 13, Creatinine 0.88, Estim Creat Clear Calc 61.64, Est GFR (MDRD) Af Amer 86, Est GFR (MDRD) Non-Af 71, BUN/Creatinine Ratio 14.9, Glucose 223 H, Calcium 8.8, Procalcitonin < 0.04 Microbiology: Microbiology 06/04/23 21:44 Nasal Secretion SARS-CoV-2 & FLU Antigen (Rapid) - Final Radiography Diagnostic Testing: Radiology Impression Chest CTA 06/04/23 20:47 IMPRESSION: Normal CTA chest examination, without a demonstrated pulmonary embolism or arterial dissection. No acute pulmonary findings. Circumferential thickening of the distal esophagus. Possible esophagitis versus changes from GERD. Consider endoscopic correlation. Electronically Signed: Keyur Gamboa MD at 22:44 EST Reading Location ID and State: [facility] / [place] Tel , Service support , D/C Instructions Discharge Diet: No restrictions (Soft diet. Avoid chewy meats, such as steak and hard breads. Easy to chew and swallow foods.) Meaningful Use Info Meaningful Use Diagnoses (Choose all that apply): None applicable Discharge Plan Admission Admit Date/Time: 06/04/23 23:26 Primary Reason for Your Visit: COPD exacerbation Attending Provider: Nito Thorne Primary Care Provider: Ivette Welsh Consulting Providers: Alexandru Holden Instructions Additional Instructions / Restrictions: You have been told that you have COPD in the past. I am not sure you actually do have COPD but you may have another reactive airway disease such as asthma. Treatment is more or less the same but I do recommend that you see a animal care supervisor for chronic maintenance medications but also to formally evaluate whether or not you do have COPD or not. Your CAT scan was also concerning for esophagitis so you will be on Protonix forthat. I recommend you follow-up with gastroenterology to see about having an EGD. If you continue to have trouble swallowing any with choking, notify someone or return to the emergency room. Your blood pressure was very high upon presentation. You have also been orderedtwo medications, amlodipine and hydrochlorothiazide, to help with that. Discharge Orders/Prescriptions Prescriptions: New amlodipine 5 mg Tablet 5 mg PO DAILY Qty: 30 0RF hydrochlorothiazide 12.5 mg Capsule 12.5 mg PO DAILY Qty: 30 0RF prednisone 20 mg Tablet 40 mg PO BREAKFAST Qty: 10 0RF pantoprazole [Protonix] 40 mg tablet,delayed release (DR/EC) 40 mg PO Q12H Qty: 60 0RF Continued albuterol sulfate 2.5 MG/3 ML solution for nebulization 2.5 mg INHALATION Q4H PRN Qty: 25 0RF Rx Instructions: Use q4 hours and PRN for wheezing albuterol sulfate [Ventolin HFA] 18 GM HFA aerosol inhaler 1 - 2 puff inhalation PRN PRN (Reason: Sob &/Or Wheezing) Patient Comments: inhale 2 puffs by mouth every 4 hours as directed if needed for wheezing or shortness of breath epinephrine 0.3 MG syringe 0.3 mg IM X1 Qty: 1 1RF ipratropium-albuterol 0.5 mg-3 mg(2.5 mg base)/3 mL solution for nebulization 3 ml inhalation BID Qty: 180 0RF Discontinued ciprofloxacin HCl [Cipro] 500 mg tablet 500 mg PO BID 7 Days Qty: 14 0RF Hold Instructions: NOT TAKING Referrals / Follow Up: [facility] [Provider Group] - Within 3 Months [facility] [Provider Group] - Within 1 Month Ivette Welsh MD [Primary Care Provider] - Within 2 Weeks Disposition Disposition (needs filled in before D/C Order can be placed): Home, Self Care Charges/Coding Visit Charges Inpatient E&M: 94237 Disch Hosp >30min 06/05/23 1322 <Electronically signed by Nito Thorne DO> Cosigner Signature (if applicable): CC: Dr. Nito Thorne DO; Dr. Ivette Welsh MD~ Signed [facility] Work Phone: Evaluation + Plan note No data available for this section [facility] Evaluation noteNo assessment information available [facility] Work Phone: Evaluation note* Diagnosis Chronic bilateral low back pain without sciatica [facility] Diagnosis Encounter for screening mammogram for breast cancer documented in this encounter [facility] note* Diagnosis Moderate persistent asthma with acute exacerbation Chronic bronchitis, unspecified chronic bronchitis type (HCC) [facility] Diagnosis Onset Date Resolution Status Acute pyelonephritis acute Acute right flank pain acute Leukocytosis acute [facility] Work Phone: Evaluation note* Diagnosis Hospital discharge follow-up- Primary Other follow-up examination Acute pyelonephritis Acute pyelonephritis without lesion of renal medullary necrosis Chronic obstructive pulmonary disease, unspecified COPD type (HCC) Dysphagia, unspecified type [facility] Diagnosis Onset Date Resolution Status Acute right flank pain resol caesar Gastroesophageal reflux disease acute COPD exacerbation chronic Hypertension [facility] Work Phone: Evaluation note* Diagnosis Onset Date Resolution Status Acute right flank pain resol caesar Esophagitis acute Gastroesophageal reflux disease acute Hypertension, accelerated ac james COPD exacerbation chronic Hypertension [facility] Work Phone: Evaluation note* Diagnosis Moderate persistent asthma with acute exacerbation Chronic bronchitis, unspecified chronic bronchitis type (HCC) documented in this encounter [facility] note* Diagnosis Encounter for screening mammogram for breast cancer documented in this encounter [facility] note* Diagnosis Acute cough documented in this encounter [facility] note* Diagnosis Moderate persistent asthma with acute exacerbation Chronic bronchitis, unspecified chronic bronchitis type (HCC) documented in this encounter [facility] note* Diagnosis Hospital discharge follow-up- Primary Other follow-up examination Dysphagia, unspecified type Chronic obstructive pulmonary disease, unspecified COPD type (HCC) Bacterial pneumonia Bacterial pneumonia, unspecified Sore throat Acute pharyngitis documented in this encounter [facility] note* Diagnosis Sore throat- Primary Acute pharyngitis URI, acute Acute upper respiratory infections of unspecified site documented in this encounter [facility] note* Diagnosis Encounter for screening mammogram for breast cancer documented in this encounter [facility] note* Diagnosis Moderate persistent asthma with acute exacerbation (HCC) Chronic bronchitis, unspecified chronic bronchitis type (HCC) [facility] Additional Instructions Your imaging studies showed a fractured heel. Use your crutches to help with weightbearing and wear your walking boot for stabilization of the fracture. Follow-up with podiatry for repeat evaluation and return to the ER should you have any further concerns[facility] Work Phone: Hospital Discharge instructions Additional Instructions Plenty of fluids and rest. Zofran for nausea. Protonix for your reflux and your esophagitis. 40 mg a day for the next 2 weeks. Follow-up with your doctor to ensure you are improving.[facility] Work Phone: Progress note No data available for this section [facility] Reason for referral (narrative)* Diagnostic Procedure Only (Routine) - Pending Review Specialty Diagnoses / Procedures Referred By Contac t Referred To Contact [facility] Diagnoses Encounter for screening mammogram for breast cancer Procedures DARIA SCREENING SCREENING MAMMOGRAPHY BI 2-VIEW BREAST INC Ivette Vail MD [address] [place] [address] [facility] [address] [place] [address] Referral ID Status Reason Start Date Expiration Date Visits Requested Visits Authorized [id number] Pending Review Auto-Generat ed Referral 11/18/2022 12/18/2023 1 1 [facility] for referral (narrative)* Diagnostic Procedure Only (Routine) - Pending Review Specialty Diagnoses / Procedures Referred By Contclement t Referred To Contact [facility] Diagnoses Encounter for screening mammogram for breast cancer Procedures DARIA SCREENING SCREENING MAMMOGRAPHY BI 2-VIEW BREAST INC Ivette Vail MD [address] [place] [address] [facility] [address] [place] [address] Referral ID Status Reason Start Date Expiration Date Visits Requested Visits Authorized [id number] Pending Review Auto-Generat ed Referral 10/27/2023 11/25/2024 1 1 [facility] Summary Purpose Family History Relationship Condition Age at Onset Recorded Date/T evelin Not Specified Chronic obstructive pulmonary disease Un known Malignant neoplasm Unknown Relationship Condition Age at Onset Recorded Date/T evelin mother Chronic obstructive pulmonary disease Unk nown Hypertension Unknown father Epilepsy Unknown Advance Directives Advance Directive Response Recorded Date/ Time Advance Directives No August 6:02pm Living Will No September 09, 023 2:50am Power of Livestock Feeder No September 09, 2022 2:50am Advance Directive Response Recorded Date/ Time Advance Directives No August 7:02pm Living Will No October 11, 2022 10:04pm Power of Livestock Feeder No October 11 10:04pm Advance Directive Response Recorded Date/ Time Advance Directives No August 7:02pm Living Will No November 16, 2022 2: 25am Power of Livestock Feeder No November 16, 2022 2:25am Advance Directive Response Recorded Date/ Time Advance Directives No August 7:02pm Living Will No December 30, 2022 9:24pm Power of Livestock Feeder No December 30 9:24pm Advance Directive Response Recorded Date/ Time Advance Directives No August 7:02pm Living Will No February 08, 2023 4:16pm Power of Livestock Feeder No February 08 4:16pm Latest Code Status on File Code Status Date Activated Date Inactivated Comments Full Code 04/29/2023 12:00 PM 05/01/2023 9:38 PM Question Answer Comments Full Code Order Discussed With: Patient Advance Directive Response Recorded Date/ Time Advance Directives No August 6:02pm Living Will No June 04, 2 023 10:57pm Power of Livestock Feeder No June 04, 2023 10:57pm Advance Directive Response Recorded Date/ Time Advance Directives No August 6:02pm Living Will No June 05, 2 023 12:39am Power of Livestock Feeder No June 05, 2023 12:39am Date Activated Date Inactivated Comments 04/29/2023 12:00 PM 05/01/2023 9:38 PM Question Answer Comments Full Code Order Discussed With: Patient Date Activated Date Inactivated Comments 04/29/2023 12:00 PM 05/01/2023 9:38 PM Question Answer Comments Full Code Order Discussed With: Patient Chief Complaint and Reason for Visit Chief Complaint Abd pain Chief Complaint Abd pain RIGHT ANKLE PAIN R/T FALL Chief Complaint Abd pain RIGHT ANKLE PAIN R/T FALL abd pain Chief Complaint Abd pain RIGHT ANKLE PAIN R/T FALL abd pain LOWER BACK PAIN,DIFF PEEING Chief Complaint abd pain LOWER BACK PAIN,DIFF PEEING PYELONEPHRITIS PYELONEPHRITIS PYELONEPHRITIS PYELONEPHRITIS Reason for Visit Acute pyelonephritis Acute right flank pain Leukocytosis Chief Complaint PYELONEPHRITIS PYELONEPHRITIS PYELONEPHRITIS PYELONEPHRITIS COPD EXACEBERATION, HYPOTENSIVE URGENCY Reason for Visit Acute right flank pa in Gastroesophageal reflux disease COPD exacerbation Hypertension Chief Complaint PYELONEPHRITIS PYELONEPHRITIS PYELONEPHRITIS PYELONEPHRITIS COPD EXACEBERATION, HYPOTENSIVE URGENCY COPD EXACEBERATION, HYPOTENSIVE URGENCY COPD EXACEBERATION, HYPOTENSIVE URGENCY Reason for Visit Acute right flank pa in Esophagitis Gastroesophageal reflux disease Hypertension, accelerated COPD exacerbation Hypertension Reason for Referral Specialty Diagnoses / Procedures Referred By Richard morales Referred To Contact Gastroenterology Diagnoses Dysphagia, unspecified type Procedures CONSULT TO GASTROENTEROLOGY OFFICE/OUTPATIENT [facility] 60-74 MINUTES Ivette Welsh MD [address] [place] [address] Referral ID Status Reason Start Date Expiration Date Visits Requested Visits Authorized [id number] Pending Review PCP Requested Referral 02/18/2023 02/18/2024 1 1 Additional Source Comments INFORMATION SOURCE (unrecogn ized section and content) DATE CREATED AUTHOR 01/12/2018 [facility] DATE CREATED AUTHOR AUTHOR'S ORGANIZ ATION 09/08/2021 [facility] [place] DATE CREATED AUTHOR AUTHOR'S ORGANIZ ATION 05/11/2023 [facility] DATE CREATED AUTHOR AUTHOR'S ORGANIZ ATION 07/06/2023 [facility] DATE CREATED AUTHOR AUTHOR'S ORGANIZ ATION 07/27/2024 [facility] DATE CREATED AUTHOR AUTHOR'S ORGANIZ ATION 08/25/2024 [facility] DATE CREATED AUTHOR AUTHOR'S ORGANIZ ATION 10/28/2024 [facility] Source Comments (unrecognize d section and content) In the event this informatio n is protected by the Federal Confidentiality of Alcohol and Drug Abuse Patient Records regulations: The Federal rules restrict any use of the information to criminally investigate or prosecute any alcohol or drug abuse patient.[facility] the event this information is protected by the Federal Confidentiality of Alcohol and Drug Abuse Patient Records regulations: The Federal rules restrict any use of the information to criminally investigate or prosecute any alcohol or drug abuse patient.[facility] Hospital[facility] the event this information is protected by the Federal Confidentiality of Alcohol and Drug Abuse Patient Records regulations: The Federal rules restrict any use of the information to criminally investigate or prosecute any alcohol or drug abuse patient.[facility] Hospital[facility] the event this information is protected by the Federal Confidentiality of Alcohol and Drug Abuse Patient Records regulations: The Federal rules restrict any use of the information to criminally investigate or prosecute any alcohol or drug abuse patient.[facility] Hospital[facility] the event this information is protected by the Federal Confidentiality of Alcohol and Drug Abuse Patient Records regulations: The Federal rules restrict any use of the information to criminally investigate or prosecute any alcohol or drug abuse patient.[facility] Hospital[facility] the event this information is protected by the Federal Confidentiality of Alcohol and Drug Abuse Patient Records regulations: The Federal rules restrict any use of the information to criminally investigate or prosecute any alcohol or drug abuse patient.[facility] Hospital[facility] the event this information is protected by the Federal Confidentiality of Alcohol and Drug Abuse Patient Records regulations: The Federal rules restrict any use of the information to criminally investigate or prosecute any alcohol or drug abuse patient.[facility] Hospital[facility] the event this information is protected by the Federal Confidentiality of Alcohol and Drug Abuse Patient Records regulations: The Federal rules restrict any use of the information to criminally investigate or prosecute any alcohol or drug abuse patient.[facility] Hospital[facility] the event this information is protected by the Federal Confidentiality of Alcohol and Drug Abuse Patient Records regulations: The Federal rules restrict any use of the information to criminally investigate or prosecute any alcohol or drug abuse patient.[facility] Hospital[facility] the event this information is protected by the Federal Confidentiality of Alcohol and Drug Abuse Patient Records regulations: The Federal rules restrict any use of the information to criminally investigate or prosecute any alcohol or drug abuse patient.[facility] Hospital[facility] the event this information is protected by the Federal Confidentiality of Alcohol and Drug Abuse Patient Records regulations: The Federal rules restrict any use of the information to criminally investigate or prosecute any alcohol or drug abuse patient.[facility] Hospital[facility] the event this information is protected by the Federal Confidentiality of Alcohol and Drug Abuse Patient Records regulations: The Federal rules restrict any use of the information to criminally investigate or prosecute any alcohol or drug abuse patient.[facility] Hospital[facility] the event this information is protected by the Federal Confidentiality of Alcohol and Drug Abuse Patient Records regulations: The Federal rules restrict any use of the information to criminally investigate or prosecute any alcohol or drug abuse patient.[facility] HospitalIn the event this information is protected by the Federal Confidentiality of Alcohol and Drug Abuse Patient Records regulations: The Federal rules restrict any use of the information to criminally investigate or prosecute any alcohol or drug abuse patient.[facility] HospitalIn the event this information is protected by the Federal Confidentiality of Alcohol and Drug Abuse Patient Records regulations: The Federal rules restrict any use of the information to criminally investigate or prosecute any alcohol or drug abuse patient.[facility] HospitalIn the event this information is protected by the Federal Confidentiality of Alcohol and Drug Abuse Patient Records regulations: The Federal rules restrict any use of the information to criminally investigate or prosecute any alcohol or drug abuse patient.[facility] HospitalIn the event this information is protected by the Federal Confidentiality of Alcohol and Drug Abuse Patient Records regulations: The Federal rules restrict any use of the information to criminally investigate or prosecute any alcohol or drug abuse patient.[facility] HospitalIn the event this information is protected by the Federal Confidentiality of Alcohol and Drug Abuse Patient Records regulations: The Federal rules restrict any use of the information to criminally investigate or prosecute any alcohol or drug abuse patient.[facility] HospitalIn the event this information is protected by the Federal Confidentiality of Alcohol and Drug Abuse Patient Records regulations: The Federal rules restrict any use of the information to criminally investigate or prosecute any alcohol or drug abuse patient.[facility] HospitalIn the event this information is protected by the Federal Confidentiality of Alcohol and Drug Abuse Patient Records regulations: The Federal rules restrict any use of the information to criminally investigate or prosecute any alcohol or drug abuse patient.[facility] HospitalIn the event this information is protected by the Federal Confidentiality of Alcohol and Drug Abuse Patient Records regulations: The Federal rules restrict any use of the information to criminally investigate or prosecute any alcohol or drug abuse patient.[facility] HospitalIn the event this information is protected by the Federal Confidentiality of Alcohol and Drug Abuse Patient Records regulations: The Federal rules restrict any use of the information to criminally investigate or prosecute any alcohol or drug abuse patient.[facility] HospitalIn the event this information is protected by the Federal Confidentiality of Alcohol and Drug Abuse Patient Records regulations: The Federal rules restrict any use of the information to criminally investigate or prosecute any alcohol or drug abuse patient.[facility] HospitalIn the event this information is protected by the Federal Confidentiality of Alcohol and Drug Abuse Patient Records regulations: The Federal rules restrict any use of the information to criminally investigate or prosecute any alcohol or drug abuse patient.[facility] HospitalIn the event this information is protected by the Federal Confidentiality of Alcohol and Drug Abuse Patient Records regulations: The Federal rules restrict any use of the information to criminally investigate or prosecute any alcohol or drug abuse patient.[facility] Reason for Visit (unrecogniz ed section and content) Reason Onset Date Comments Allied Health Visit 06/24/2022 Reason Onset Date Comments Population Health Navigation Outreach 06/29/2022 HCC Reason Comments Refill Request Reason Comments Transition Of Care Reason Onset Date Comments Transition Of Care 05/03/2023 Initial Outre ach D/C [facility] 05/01/23 - LM x 2 days Reason Onset Date Comments Transition Of Care 05/12/2023 TCM follow up Reason Onset Date Comments Transition Of Care 05/19/2023 TCM follow up Reason Onset Date Comments Refill Request 06/18/2023 Reason Onset Date Comments Population Health Navigation Outreach 10/29/2023 [employer] Reason Onset Date Comments Population Health Navigation Outreach 12/07/2023 [employer] Reason Onset Date Comments Population Health Navigation Outreach 01/04/2024 [employer] Reason Onset Date Comments Population Health Navigation Outreach 02/25/2024 [employer],[place] Reason Onset Date Comments Population Health Navigation Outreach 05/15/2024 [employer],[place] Reason Onset Date Comments Population Health Navigation Outreach 07/05/2024 [employer] Reason Onset Date Comments Transition Of Care 07/18/2024 Reason Comments Hospital F/U 7 day TCM Reason Comments Sore Throat AGATA ear pain, cough x 3 days Reason Comments Results Reason Onset Date Comments Refill Request 11/02/2024 Care Teams (unrecognized sec tion and content) Team Status: Active Member Role Status Dates Dr. Kenisha Abbasi III, MD Family Provider Active Dr. Ivette Welsh MD Primary Care Provider Active Team Status: Inactive Member Role Status Dates Dr. Reymundo Leos MD Emergency Provider Active Dr. Ivette Welsh MD Primary Care Provider Active Team Status: Inactive Member Role Status Dates Dr. Reymundo Leos MD Attending Provider, Emergency Provider Active Dr. Ivette Welsh MD Primary Care Provider Active Team Status: Inactive Member Role Status Dates Dr. Ivette Welsh MD Primary Care Provider Active Dr. Virgilio Veronica DO Emergency Provider Active Team Status: Inactive Member Role Status Dates Dr. Ivette Welsh MD Primary Care Provider Active Dr. Virgilio Veronica DO Attending Provider, Emergency Pr ovider Active Team Status: Inactive Member Role Status Dates Dr. Ivette Welsh MD Primary Care Provider Active Dr. Nixon Duke MD Emergency Provider Active Wage [employer] Relationship Specialty Start Date End Date Ivette Welsh MD [address] [place] [address] PCP - General Family Medicine 11/17/22 [employer] Relationship Specialty Start Date End Date Ivette Welsh MD [address] [place] [address] PCP - General Family Medicine 11/17/22 Team Status: Inactive Member Role Status Dates Dr. Ivette Welsh MD Primary Care Provider Active Dr. Nixon Duke MD Attending Provider, Emergency Pro vider Active Team Status: Inactive Member Role Status Dates Dr. Ivette Welsh MD Primary Care Provider Active Dr. Kristi Rubi DO Emergency Provider Active Team Status: Active Member Role Status Dates Dr. Ivette Welsh MD Primary Care Provider Active Dr. Omega Mejía DO Emergency Provider Active Dr. Jama Bustamante MD Admit Provider, A ttending Provider, Other Provider Active Team Status: Inactive Member Role Status Dates Dr. Ivette Welsh MD Primary Care Provider Active Dr. Kristi Rubi DO Attending Provider, Emergency Pro vider Active Team Status: Inactive Member Role Status Dates Dr. Ivette Welsh MD Primary Care Provider Active Dr. Omega Mejía DO Emergency Provider Active Dr. Jama Bustamante MD Admit Provider, Attending Provi day Active Wage Hand Relationship Specialty Start Date End Date Ivette Welsh MD [address] [place] [address] PCP - General Family Medicine 11/17/22 Wage Hand Relationship Specialty Start Date End Date Ivette Welsh MD [address] [place] [address] PCP - General Family Medicine 11/17/22 Radha Victoria, RN [address] [place] [address] Primary Care Safety Council Director 05/03/23 06/02/23 Wage Hand Relationship Specialty Start Date End Date Ivette Welsh MD [address] [place] [address] PCP - General Family Medicine 11/17/22 Radha Victoria, RN [address] [place] [address] Primary Care Safety Council Director 05/03/23 06/02/23 Wage Hand Relationship Specialty Start Date End Date Ivette Welsh MD [address] [place] [address] PCP - General Family Medicine 11/17/22 Radha Victoria, RN [address] [place] [address] Primary Care Safety Council Director 05/03/23 05/31/23 Team Status: Active Member Role Status Dates Dr. Ivette Welsh MD Primary Care Provider Active Dr. Idalia Sanchez MD Emergency Provider Active Dr. Alexandru Holden MD Admit Provider, Attending Pro vider Active Team Status: Active Member Role Status Dates Dr. Ivette Welsh MD Primary Care Provider Active Dr. Idalia Sanchez MD Emergency Provider Active Dr. Alexandru Holden MD Admit Provider, Attending Provider, Other Provider Active Team Status: Active Member Role Status Dates Dr. Ivette Welsh MD Primary Care Provider Active Dr. Idalia Sanchez MD Emergency Provider Active Dr. Alexandru Holden MD Admit Provider, Other Provide r Active Dr. Nito Jopperi , DO Attending Provider, Other Provid er Active Team Status: Inactive Member Role Status Dates Dr. Ivette Welsh MD Primary Care Provider Active Dr. Idalia Sanchez MD Emergency Provider Active Dr. Alexandru Holden MD Admit Provider, Other Provide r Active Dr. Nito Thorne , Attending Provider Active [employer]age Hand Relationship Specialty Start Date End Date Ivette Welsh MD [address] [place] [address] PCP - General Family Medicine 11/17/22 Wage Hand Relationship Specialty Start Date End Date Ivette Welsh MD [address] [place] [address] PCP - General Family Medicine 11/17/22 Wage Hand Relationship Specialty Start Date End Date Ivette Welsh MD [address] [place] [address] PCP - General Family Medicine 11/17/22 Wage Hand Relationship Specialty Start Date End Date Ivette Welsh MD [address] [place] [address] PCP - General Family Medicine 11/17/22 Wage Hand Relationship Specialty Start Date End Date Ivette Wlesh MD [address] [place] [address] PCP - General Family Medicine 11/17/22 Letha Alston, OUTDOOR STUDIES PROFESSOR.CLUTCH SPECIALIST [address] [place] [address] Steel Detailer Family Medicine 06/25/24 Manoj Davidson, NORMA.CLUTCH SPECIALIST [address] [place] [address] Steel Detailer Family Medicine 07/04/24 Wage Hand Relationship Specialty Start Date End Date Ivette Welsh MD [address] [place] [address] PCP - General Family Medicine 11/17/22 Letha Alston APRN.CLUTCH SPECIALIST [address] [place] [address] Steel Detailer Family Medicine 06/25/24 Manoj Davidson APRN.CLUTCH SPECIALIST [address] [place] [address] [facility] 07/04/24 Wage Hand Relationship Specialty Start Date End Date Ivette Welsh MD [address] [place] [address] PCP - General Family Medicine 11/17/22 Letha Alston APRN.CLUTCH SPECIALIST [address] [place] [address] [facility]24 Manoj Davidson APRN.CLUTCH SPECIALIST [address] [place] [address] [facility] 07/04/24 Wage Hand Relationship Specialty Start Date End Date Ivette Welsh MD [address] [place] [address] PCP - General Family Medicine 11/17/22 Letha Alston APRN.CLUTCH SPECIALIST [address] [place] [address] Steel Detailer Family Medicine 06/25/24 Manoj Davidson APRN.CLUTCH SPECIALIST [address] [place] [address] Steel Detailer Family Medicine 07/04/24 Wage Hand Relationship Specialty Start Date End Date Ivette Welsh MD [address] [place] [address] PCP - General Family Medicine 11/17/22 Letha Alston APRN.CLUTCH SPECIALIST [address] [place] [address] Steel Detailer Family Medicine 06/25/24 Manoj Davidson APRN.CLUTCH SPECIALIST [address] [place] [address] Steel Detailer [facility] Medicine 07/04/24 Wage Hand Relationship Specialty Start Date End Date Ivette Welsh MD [address] [place] [address] PCP - General Family Medicine 11/17/22 Letha Alston APRN.CLUTCH SPECIALIST [address] [place] [address] Steel Detailer Family Medicine 06/25/24 Manoj Davidson APRN.CLUTCH SPECIALIST [address] [place] [address] Steel Detailer Family Medicine 07/04/24 Wage Hand Relationship Specialty Start Date End Date Ivette Welsh MD [address] [place] [address] PCP - General Family Medicine 11/17/22 Letha Alston APRN.CLUTCH SPECIALIST [address] [place] [address] [facility] 06/25/24 Manoj Davidson APRN.CLUTCH SPECIALIST [address] [place] [address] [facility] 07/04/24 Goals (unrecognized section and content) Goals may be documented in a n alternate sectionGoals may be documented in an alternate sectionGoals may be documented in an alternate sectionGoals may be documented in an alternate section No data available for this section No data available for this section No data available for this section FOR RECORDS PERTAINING TO PATIENTS WHO ARE OR HAVE BEEN ENROLLED IN A CHEMICAL DEPENDENCY/SUBSTANCEABUSE PROGRAM, SOME INFORMATION MAY BE OMITTED. This clinical summary was aggregated from multiple sources. Caution should be exercised in using it in the provision of clinical care. This summary normalizes information from multiple sources, and as a consequence, information in this document may materially change the coding, format and clinical context of patient data. In addition, data may be omitted in some cases. CLINICAL DECISIONS SHOULD BE BASED ON THE PRIMARY CLINICAL RECORDS. [facility] [employer] [facility] provides no warranty or guarantee of the accuracy or completeness of information in this document.
[2025-01-04 21:53] LABS: Absolute Lymphocyte Count 1.86 X10^3/uL (0.83-4.51); Absolute Neutrophil Count 13.6 X10^3/uL (2.0-7.7); Basophil# 0.07 X10^3/uL; Basophil% 0.4 % (0-1); Eosinophil# 0.03 X10^3/uL; Eosinophils% 0.2 % (0-5); Lymphocyte # 1.86 X10^3/ul (0.83-4.51); Mean Corp Hgb Conc 32.5 g/dL (32-36); Mean Corpuscular Hgb 28.4 pg (27.0-32.0); Mean Corpuscular Volume 87.3 fL (81-99); Mean Platelet Vol. 9.2 fl (6.2-12.0); Monocyte# 1.27 X10^3/uL; Monocyte% 7.5 % (0-10); NRBC Flagged by Analyzer 0 % (0-5); Neutrophil # 13.64 X10^3/uL (2.7-7.7); Neutrophil % 80.4 % (47-70); Platelet Count 478 K/mm3 (150-450); RBC Distribution Width CV 13.8 % (11.6-14.6); RBC Distribution Width SD 44.2 fl (35.1-43.9); Red Blood Count 4.58 M/mm3 (4.2-5.4)
[2025-01-04] MEDS: 0.9% Normal Saline (1000mL) 1,000 ML 1000 ML IV (21:55)
[2025-01-04] MEDS: Ondansetron 4 MG/2 ML Vial IV (21:56)
[2025-01-04] MEDS: Ketorolac 15 MG/ML Vial IV (21:56)
[2025-01-04] MEDS: Acetaminophen 500 MG Tablet 1000 MG PO (21:56)
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
[2025-01-04 22:00] VITALS: BP 185/71; PULSE 112; O2SAT 96
[2025-01-04 22:04] VITALS: PULSE 119; RESP 16
[2025-01-04] MEDS: Ipratropium/Albuterol Sulfate 3 ML AMPUL.NEB INHALATION (22:04)
[2025-01-04 22:09] LABS: Bacteria 0 SEEN /hpf (None Seen); Mucous, Urine 0 SEEN /hpf (<or=2+); Squamous Epithelial Cells - UA 0 SEEN /hpf (5-10); White Blood Cells 0 SEEN /hpf (0-5)
[2025-01-04 22:36] LABS: AST(SGOT) 25 U/L (<=31); Alanine Aminotransfer ALT/SGPT 15 U/L (<=34); Albumin, Serum 3.9 g/dL (3.5-5.0); Alkaline Phosphatase 125 U/L (35-104); Anion Gap 12 (5-15); BUN 8 mg/dL (4-19); BUN/Creat Ratio 11.1 RATIO (10-20); Calcium,Total 9.1 mg/dL (7.6-11.0); Chloride 99 mmol/L (98-108); Creatinine, Serum 0.72 mg/dL (0.70-1.20); EST Glomerular Filtration Rate 97 (>60); Estimated Creatinine Clearance 89.26 ml/min (50-250); Globulin 3.7 g/dL (2.2-4.2); Glucose 102 mg/dL (70-99); Lipase 25 U/L (13-75); Potassium 3.8 mmol/L (3.3-5.1); Protein, Total 7.6 g/dL (5.9-8.4); Sodium Level 136 mmol/L (133-145); Total Bilirubin 0.48 mg/dL (0.00-1.30)
[2025-01-04 22:51] LABS: Color, Urine Yellow (Yellow); Glucose, Dipstick Normal (Normal); Ketone-Dipstick Negative (Negative); Leukocyte Esterase-Dipstick Negative /ul (Negative); Nitrite-Dipstick Negative (Negative); Occult Blood-Urine 50 /ul (Negative); Protein-Dipstick 15 mg/dl (Negative); Urine Bilirubin Dipstick Negative (Negative); Urine Clarity Clear (Clear); Urine Urobilinogen Normal (Normal)
--- NOTE | 2025-01-04 22:55 | RAD_ITS ---
PROCEDURE: CHEST PA AND LATERAL 01/04/2025 REASON FOR EXAM: SHORTNESS OF BREATH TECHNIQUE: CHEST PA AND LATERAL COMPARISON: 07/15/2024. FINDINGS: The heart is normal in size. The mediastinum is normal in contour. Hyperaerated lungs which may suggest COPD. The lungs are clear. No acute osseous abnormalities. RAD/Chest PA and Lateral IMPRESSION: NO ACUTE FINDINGS. Reading Location: [place] [address]
[2025-01-04 23:00] VITALS: BP 123/50; PULSE 107; O2SAT 93
[2025-01-04 23:01] LABS: Red Blood Cells-Urine 0-5 SEEN /hpf (0-5)
[2025-01-05] VITALS: BP 137/64; PULSE 102; RESP 16; TEMP 36.7; O2SAT 95
[2025-01-05 00:05] VITALS: O2SAT 95
[2025-01-05 00:29] VITALS: BP 123/66; PULSE 93; RESP 16; TEMP 36.7; O2SAT 95
== END 2025-01-05 00:32 | disposition home or self-care (01) ==
PROVIDERS: Emergency Provider Surgery; PCP Family Medicine; Referring Provider Surgery; Visit Provider Surgery
DX: R50.9 Fever, unspecified (principal); J44.9 Chronic obstructive pulmonary disease, unspecified; F17.210 Nicotine dependence, cigarettes, uncomplicated; R05.9 Cough, unspecified; R06.02 Shortness of breath; I10 Essential (primary) hypertension; Z86.73 Personal history of transient ischemic attack (TIA), and cerebral infarction without residual deficits; K21.9 Gastro-esophageal reflux disease without esophagitis; Z79.899 Other long term (current) drug therapy; Z90.49 Acquired absence of other specified parts of digestive tract; R53.81 Other malaise; B34.9 Viral infection, unspecified
CPT/HCPCS: 71046; 80053; 81001; 83690; 85025; 87631; 94640; 96361; 96374; 96375; 99284; A4216; J2405

== ENCOUNTER 2025-01-08 20:20 | Inpatient (IN) | payer MEDICARE, MEDICAID, SELFPAY ==
[2025-01-08] VITALS (9 sets, daily range): BP systolic 108–165; BP diastolic 79–97; PULSE 116–120; RESP 14–28; TEMP 37.1–39.4; O2SAT 86–97; BMI 30.4
--- NOTE | 2025-01-08 21:00 | RAD_ITS ---
PROCEDURE: CHEST 1 VIEW (PORTABLE) 01/08/2025 REASON FOR EXAM: SOB TECHNIQUE: Frontal view of the chest. COMPARISON: Chest radiograph on 01/04/2025, CT chest 07/15/2024 FINDINGS: Hardware: None Heart: Cardiac and mediastinal contours are stable. Aortic atherosclerosis. Lungs: Increased lung volumes with flattening of the hemidiaphragms. Increased interstitial markings, unchanged. No focal consolidation or pleural effusion. Nodular opacity in the right mid lung zone measuring 8 mm Bones: Degenerative changes are identified within the thoracic spine. RAD/Chest 1 View (Portable) IMPRESSION: 1. No acute cardiopulmonary abnormality. 2. Nodular opacity in the right mid lung zone measuring 8 mm. Consider noneme rgent chest CT in this patient with emphysema. Reading Location: [id number]
[2025-01-08 21:34] LABS: Absolute Lymphocyte Count 1.82 X10^3/uL (0.83-4.51); Absolute Neutrophil Count 16.7 X10^3/uL (2.0-7.7); Basophil# 0.05 X10^3/uL; Basophil% 0.3 % (0-1); Eosinophil# 0.06 X10^3/uL; Eosinophils% 0.3 % (0-5); Hematocrit 39.6 % (37-47); Hemoglobin 12.9 g/dL (12.0-15.0); Lymphocyte # 1.82 X10^3/ul (0.83-4.51); Lymphocyte % 9.2 % (19-41); Mean Corp Hgb Conc 32.6 g/dL (32-36); Mean Corpuscular Hgb 28.1 pg (27.0-32.0); Mean Corpuscular Volume 86.3 fL (81-99); Mean Platelet Vol. 9.8 fl (6.2-12.0); Monocyte# 1.17 X10^3/uL; Monocyte% 5.9 % (0-10); NRBC Flagged by Analyzer 0 % (0-5); Neutrophil # 16.71 X10^3/uL (2.7-7.7); Neutrophil % 83.9 % (47-70); Platelet Count 571 K/mm3 (150-450); RBC Distribution Width CV 14.1 % (11.6-14.6); RBC Distribution Width SD 44.6 fl (35.1-43.9); Red Blood Count 4.59 M/mm3 (4.2-5.4); White Blood Count 19.9 K/mm3 (4.4-11.0)
[2025-01-08 21:57] LABS: Anion Gap 13 (5-15); BUN 15 mg/dL (4-19); BUN/Creat Ratio 18.3 RATIO (10-20); Calcium,Total 9.2 mg/dL (7.6-11.0); Carbon Dioxide 26.4 mmol/L (21.0-32.0); Chloride 95 mmol/L (98-108); Creatinine, Serum 0.82 mg/dL (0.70-1.20); EST Glomerular Filtration Rate 83 (>60); Estimated Creatinine Clearance 76.72 ml/min (50-250); Glucose 109 mg/dL (70-99); Potassium 4.1 mmol/L (3.3-5.1); Sodium Level 134 mmol/L (133-145)
--- NOTE | 2025-01-08 22:10 | ED.VIS.DYS ---
HPI <Dr. Nito Avendaño DO - Last Filed: 01/09/25 22:27> History of Present Illness Chief Complaint: Shortness of Breath Informant: patient Onset/Context/Timing Onset: Days (4) Context: gradual Timing: Continuous Quality: Positive for Dyspnea on exertion Worsened by: Exertion Relieved by: Rest Associated Symptoms fever; Negative for cough, rhinorrhea, post nasal drip, ear pain, sore throat, chills, clear sputum, white sputum, yellow sputum or green sputum Chest Pain: Positive for Tightness Narrative Narrative: Patient presents with shortness of breath that has been getting worse over the past 4 days. Patient states it is gradually getting worse. Patient was seen here 3 days ago and was discharged home. Patient states her breathing has gotten progressively worse over the past 3 days. Patient admits to a fever of 102.6. Patient states she has tightness across her entire chest. Patient states her breathing is worse with any exertion. Patient states it is better with rest. Patient states she is only able to walk a few feet before she gets out of breath. PE Risk Factors: Negative for Cancer, OCP + Smoking + > 35, Prior DVT or PE, Recent immobilization, Recent surgery or Recent travel [facility] <Dr. Nito Avendaño DO - Last Filed: 01/09/25 22:27> [facility] Medical History Near syncope Abnormal tissue in uterus Hypertension Gastroesophageal reflux disease Leukocytosis Acute pyelonephritis Substance abuse Alcohol abuse Chronic pain Kidney stones Smoker Sleep apnea Pulmonary embolism TIA (transient ischemic attack) Stroke/cerebrovascular accident COPD (chronic obstructive pulmonary disease) Asthma Home Medications ?Medication ?Instructions ?Recorded ?Last Taken ?Type albuterol sulfate 2.5 mg/3 mL 2.5 mg (3 mL) inhalation Q4H PRN 10/20/17 02/08/23 Rx (0.083 %) solution for nebulization #25 vials albuterol sulfate 90 mcg/actuation 1 - 2 puff inhalation PRN PRN Sob 05/18/18 02/08/23 History aerosol inhaler (Ventolin HFA) &/Or Wheezing epinephrine 0.3 mg/0.3 mL 0.3 mg (0.3 mL) IM X1 ##1 01/21/19 Unknown Rx injection, auto-injector dextromethorphan-guaifenesin ER 60 1 tab PO Q12H 7 days #14 tabs 07/17/24 Unknown Rx mg-1,200 mg tab,extend release,12hr (Mucinex DM) nicotine 14 mg/24 hr daily 14 mg transdermal DAILY 30 days 07/17/24 Unknown Rx transdermal patch #30 ea albuterol sulfate 90 mcg/actuation 2 puff inhalation Q4H PRN PRN 01/05/25 Unknown Rx aerosol inhaler (Ventolin HFA) Wheezing ##1 Allergy/AdvReac Type Severity Reaction Status Date / Time peanut Allergy Anaphylaxis Verified 01/04/25 20:54 tree nut (Tree Nut) Allergy Anaphylaxis Verified 01/04/25 20:54 Family History Mother COPD (chronic obstructive pulmonary disease) Hypertension Father Epilepsy Surgical History History of bilateral ligation of fallopian tubes History of cholecystectomy Social History household members: none Smoking Status: Current every day smoker tobacco type: cigarettes alcohol intake: former substance use type: marijuana ROS <Dr. Nito Avendaño, DO - Last Filed: 01/09/25 22:27> ROS ED Constitutional Constitutional ED: Denies chills or fever(s) Eyes Eyes: Denies blurry vision or change in vision ENT ENT ED: Denies rhinorrhea or sore throat Cardiovascular Cardiovascular: Reports chest pain; Denies palpitations Respiratory/Chest Respiratory/Chest: Reports dyspnea; Denies cough Gastrointestinal Gastrointestinal: Reports nausea; Denies vomiting Genitourinary Genitourinary ED: Denies dysuria or hematuria Musculoskeletal Musculoskeletal: Reports back pain and neck pain Integumentary Denies abscess or rash Neurologic Neurologic: Reports headache(s); Denies weakness Allergic/Immunologic Allergic/Immunologic ED: Denies mouth swelling or urticaria EXAM <Dr. Nito Avendaño, DO - Last Filed: 01/09/25 22:27> Physical Exam Const Vital Signs: 01/08/25 22:33 01/08/25 23:00 01/09/25 00:00 Temperature 100 F H 99.2 F H Temperature Source Oral Oral Pulse Rate 118 H 120 H 81 Respiratory Rate 18 14 18 Respiratory Pattern Normal Blood Pressure 165/97 H 122/92 H Blood Pressure Mean 119 102 Pulse Ox 97 99 Oxygen Delivery Method Room Air Room Air Oxygen Flow Rate (L/min) 01/09/25 01:00 01/09/25 01:00 01/09/25 02:00 Temperature 97.7 F L 97.7 F L Temperature Source Oral Oral Pulse Rate 89 83 Respiratory Rate 22 H 23 H Respiratory Pattern Blood Pressure 117/72 136/95 H Blood Pressure Mean 87 108 Pulse Ox 85 93 91 Oxygen Delivery Method Room Air Nasal Cannula Room Air Oxygen Flow Rate (L/min) 2 01/09/25 03:00 01/09/25 04:00 01/09/25 05:00 Temperature 97.7 F L 97.9 F 97.8 F Temperature Source Oral Oral Oral Pulse Rate 84 84 88 Respiratory Rate 23 H 25 H 26 H Respiratory Pattern Blood Pressure 105/78 148/91 H 118/95 H Blood Pressure Mean 87 110 102 Pulse Ox 95 98 94 Oxygen Delivery Method Room Air Room Air Room Air Oxygen Flow Rate (L/min) Positive well nourished and well developed General Appearance ED: well developed and NAD HEENT Reports moist mucous membranes Neck supple and no JVD Resp normal respiratory effort Auscultation: wheezes expiratory wheezes and throughout Cardio regular rhythm Rate: tachycardic GI non-tender and non-distended Palpation: soft Neuro oriented x3, CN's II-XII intact bilaterally and no sensory deficits noted [place] Coma Scale: document GCS findings Spontaneous Obeys Commands Oriented 15 Sensorium / Orientation: alert Speech: speech normal Motor Exam: strength 5/5 throughout Psych mental status grossly normal <Dr. Reymundo Leos MD - Last Filed: 01/09/25 04:46> Physical Exam Const Vital Signs: 01/08/25 22:33 01/08/25 23:00 01/09/25 00:00 Temperature 100 F H 99.2 F H Temperature Source Oral Oral Pulse Rate 118 H 120 H 81 Respiratory Rate 18 14 18 Respiratory Pattern Normal Blood Pressure 165/97 H 122/92 H Blood Pressure Mean 119 102 Pulse Ox 97 99 Oxygen Delivery Method Room Air Room Air Oxygen Flow Rate (L/min) 01/09/25 01:00 01/09/25 01:00 01/09/25 02:00 Temperature 97.7 F L 97.7 F L Temperature Source Oral Oral Pulse Rate 89 83 Respiratory Rate 22 H 23 H Respiratory Pattern Blood Pressure 117/72 136/95 H Blood Pressure Mean 87 108 Pulse Ox 85 93 91 Oxygen Delivery Method Room Air Nasal Cannula Room Air Oxygen Flow Rate (L/min) 2 01/09/25 03:00 01/09/25 04:00 01/09/25 05:00 Temperature 97.7 F L 97.9 F 97.8 F Temperature Source Oral Oral Oral Pulse Rate 84 84 88 Respiratory Rate 23 H 25 H 26 H Respiratory Pattern Blood Pressure 105/78 148/91 H 118/95 H Blood Pressure Mean 87 110 102 Pulse Ox 95 98 94 Oxygen Delivery Method Room Air Room Air Room Air Oxygen Flow Rate (L/min) Neuro Vaibhav Coma Scale: document GCS findings 15 MDM <Dr. Nito Avendaño, DO - Last Filed: 01/09/25 22:27> [facility] MDM Narrative Medical decision making narrative: Differential diagnosis includes COPD exacerbation, pneumonia, bronchitis, viral illness, pulmonary embolism, sepsis, and electrolyte abnormality. Chest x-ray will be obtained to assess for pneumonia and bronchitis. EKG will be obtained to assess for cardiac dysrhythmia and cardiac ischemia. CBC will be obtained to assess for leukocytosis and anemia. Basic metabolic profile will be obtained to assess for electrolyte abnormality renal function. High-sensitivity troponin will be obtained to assess for cardiac ischemia. PT with INR PTT will be obtained to assess for coagulopathy. Serum lactate will be obtained to assess for sepsis. D-dimer will be obtained to assess for pulmonary embolism. Blood culture will be obtained to assess for sepsis. History & Record Review Additional record(s) reviewed:: Prior ED visit and Prior labs Lab Data Attestation: I reviewed the patient's lab results. Lab results narrative: CBC was reviewed. There is a leukocytosis of 19.9. This is increased from previous result. Basic metabolic profile was reviewed and was within normal limits. PT with INR was reviewed and was within normal limits. PTT was reviewed and was normal at 30.1. D-dimer was reviewed and was elevated at 1.48. Initial high-sensitivity troponin was reviewed and was slightly elevated at 17. Serum lactate was reviewed and was normal at 1.4. Labs: Laboratory Results - last 24 hr 01/08/25 20:50 PT 12.7 INR 0.9 APTT 30.1 D-Dimer Quant (PE/DVT) 1.48 H* Lactic Acid 1.4 Troponin T High Sens 17 H Radiography Diagnostic Testing: Clinical Impression(s) from Imaging Studies Chest X-Ray 01/08/25 21:00 IMPRESSION: 1. No acute cardiopulmonary abnormality. 2. Nodular opacity in the right mid lung zone measuring 8 mm. Consider nonemergent chest CT in this patient with emphysema. Reading Location: [id number] Chest CTA 01/09/25 00:35 IMPRESSION: Centrilobular nodularity with multifocal airspace disease in the right lower lobe and to a lesser extent in the right middle and upper lobes, probably multifocal pneumonia. Prior cholecystectomy. Mildly prominent mediastinal and hilar lymph nodes are noted with the largest measuring 1.3 cm, probably reactive. Uncomplicated sliding hiatal hernia. No significant coronary artery calcifications. No CT evidence of pulmonary embolus or aortic dissection. Reading Location: [place] [id number] Portable 1 view chest x-ray was obtained. On my independent interpretation, lung siu show a nodular density in the right mid lung measuring 8 mm. There is normal cardiac silhouette. Bony thorax is normal. There is no acute process noted. Radiologist also interpreted the x-ray and agrees. EKG Initial EKG: Attestation: I personally reviewed and interpreted this EKG as follows: Interpretation: No Acute Injury Pattern and Sinus Tachycardia (115) Comments: EKG was obtained. On my independent interpretation, it showed a sinus tachycardia with a rate of 115. [place] interval, QRS interval, and QTc intervals were all normal. [place] was normal. There are no acute ST or T wave changes. Prior EKG tracings: available for review Prior: Unchanged (07/15/2024) Additional Tests and Interventions Additional Tests or Interventions: Because of the elevated D-dimer, CTA of the chest was obtained. Treatment and Re-Evaluation :: Patient was given a dose of Tylenol. Patient was given a DuoNeb. Patient was given a dose of prednisone. Patient was feeling more anxious on reevaluation. Patient was advised of her findings. Patient was advised of the need for CTA of the chest. Patient was given a dose of Ativan. Patient was given a dose of Rocephin and Zithromax here. Care of the patient was turned over to the oncoming physician pending CT results and repeat troponin. <Dr. Reymundo Leos MD - Last Filed: 01/09/25 04:46> [facility] Lab Data Labs: Laboratory Results - last 24 hr 01/08/25 20:50 PT 12.7 INR 0.9 APTT 30.1 D-Dimer Quant (PE/DVT) 1.48 H* Lactic Acid 1.4 Troponin T High Sens 17 H Radiography Diagnostic Testing: Clinical Impression(s) from Imaging Studies Chest X-Ray 01/08/25 21:00 IMPRESSION: 1. No acute cardiopulmonary abnormality. 2. Nodular opacity in the right mid lung zone measuring 8 mm. Consider nonemergent chest CT in this patient with emphysema. Reading Location: [id number] Chest CTA 01/09/25 00:35 IMPRESSION: Centrilobular nodularity with multifocal airspace disease in the right lower lobe and to a lesser extent in the right middle and upper lobes, probably multifocal pneumonia. Prior cholecystectomy. Mildly prominent mediastinal and hilar lymph nodes are noted with the largest measuring 1.3 cm, probably reactive. Uncomplicated sliding hiatal hernia. No significant coronary artery calcifications. No CT evidence of pulmonary embolus or aortic dissection. Reading [id number] Treatment and Re-Evaluation Comments:: Patient checked out to me pending CTA chest. I reviewed the images and the report which I agree with, it is negative for pulmonary embolus but consistent with multifocal right lung pneumonia. She has a significant leukocytosis. There was significant delay in disposition in this patient because she received Ativan and was very lethargic for hours. Eventually when she was more coherent, we ambulated her, she was very weak, she desatted down to 87% for a good period of time, and upon getting back to the bed, needed another breathing treatment. She is on no oxygen at home. For this reason I think she would be better suited admitted to the hospital for this pneumonia. Discussed with hospitalist. Discharge Plan Dx/Rx/DC Orders Clinical Impression: Pneumonia, Tobacco use, Hypoxemia, Acute exacerbation of chronic obstructive pulmonary disease Disposition Disposition: Acute Care [facility] Discharge Date/Time: 01/09/25 05:45
--- NOTE | 2025-01-08 22:17 | EKG12_ITS ---
Test Reason : DYSRHYTHMIA Blood Pressure : */* mmHG Vent. Rate : 115 BPM Atrial Rate : 115 BPM P-R Int : 140 ms QRS Dur : 92 ms QT Int : 332 ms P-R-T Axes : 73 75 68 degrees QTcB Int : 459 ms Sinus tachycardia with Premature atrial complexes Right atrial enlargement Borderline ECG Confirmed by RICH VARGHESE, ROLAN ([id number]), web content editor JACEY MARK ([id number]) on 01/09/2025 11:29:34 AM Referred By: Confirmed By: ROLAN VILLANUEVA MD
[2025-01-08] MEDS: predniSONE 20 MG Tablet 40 MG PO (22:29)
[2025-01-08] MEDS: Ipratropium/Albuterol Sulfate 3 ML AMPUL.NEB INHALATION (22:33)
[2025-01-08] MEDS: Acetaminophen 500 MG Tablet 1000 MG PO (23:09)
[2025-01-09] VITALS (20 sets, daily range): BP systolic 105–164; BP diastolic 71–95; PULSE 77–97; RESP 16–26; TEMP 36.5–37.3; O2SAT 85–99; BMI 29.1
[2025-01-09 00:17] LABS: Troponin T High Sensitivity 17 ng/L (<=14)
[2025-01-09 00:23] LABS: International Normalized Ratio 0.9; Partial Thromboplast Time 30.1 Seconds (24.1-36.2); Prothrombin Time (Protime)PT. 12.7 SECONDS (11.7-14.9)
[2025-01-09 00:24] LABS: D-Dimer Quantitative (DVT/PE) 1.48 FEU/ug/m (0.27-0.49)
--- NOTE | 2025-01-09 00:35 | CT_ITS ---
PROCEDURE: CTA CHEST W/WO CONTRAST 01/09/2025 REASON FOR EXAM: ELEVATED D-DIMER TECHNIQUE: CTA CHEST W/WO CONTRAST Multiplanar Sagittal and Coronal images were obtained. CONTRAST: Isovue 370 VOLUME: 100 mL One or more dose reduction techniques were used (e.g., Automated exposure control, adjustment of the mA and/or kV according to patient size, use of iterative reconstruction technique). RADIATION DOSE SUMMARY: CTDlvol: 13.04 mGy DLP: 485 mGycm COMPARISON: Chest radiograph on 01/08/2025. CT scan on 07/15/2024. FINDINGS: Centrilobular nodularity with multifocal airspace disease in the right lower lobe and to a lesser extent in the right middle and upper lobes, probably multifocal pneumonia. Prior cholecystectomy. Mildly prominent mediastinal and hilar lymph nodes are noted with the largest measuring 1.3 cm, probably reactive. Uncomplicated sliding hiatal hernia. No significant coronary artery calcifications. Normal enhancement of the main pulmonary artery and right and left pulmonary arteries. Normal enhancement of the bilateral peripheral pulmonary arteries. There is no demonstrated pulmonary embolism. Normal thoracic aorta and visualized great vessels. There is no demonstrated aortic dissection. Normal heart and pericardium. Normal visualized trachea and bronchi. Normal pleura. Normal remaining visualized upper abdomen. CT/CTA Chest W/WO Contrast IMPRESSION: Centrilobular nodularity with multifocal airspace disease in the right lower lo be and to a lesser extent in the right middle and upper lobes, probably multifocal pneumonia. Prior cholecystectomy. Mildly prominent mediastinal and hilar lymph nodes are noted with the largest m easuring 1.3 cm, probably reactive. Uncomplicated sliding hiatal hernia. No significant coronary artery calcifications. No CT evidence of pulmonary embolus or aortic dissection. Reading Location: [place] [id number]
[2025-01-09] MEDS: LORazepam 1 MG Tablet PO (00:42)
[2025-01-09 01:06] LABS: Lactic Acid 1.4 mmol/L (0.0-2.0)
[2025-01-09] MEDS: Ceftriaxone 2 GM in 0.9% Normal Saline (50mL MB+) 50 ML IV (01:55)
[2025-01-09] MEDS: Azithromycin 500 MG in 0.9% Normal Saline (250mL Bag) 250 ML 255 MG IV (03:06)
--- NOTE | 2025-01-09 04:50 | HP.PCM.HOS_ITS ---
[facility] - General General Date of Admission: 01/09/25 Date of Service: 01/09/25 Chief Complaint: SOB, Wheezing and Chest Pain. [facility] Narrative SAVANNAH IRVIN, is a 59 F with a past medical history of essential hypertension, hyperlipidemia, obesity; with BMI of 30.4 this admission with HELIO, cannabis abuse, history of EtOH abuse; patient denies actively drinking at this time, history of ongoing tobacco abuse; with subsequent asthma/COPD, history of PE; currently not on anticoagulation, history of pulmonary hypertension, history of seizure, history of TIA/CVA, history of peanut allergy (anaphylaxis), history of tree nut allergy (anaphylaxis), MIKIE, history of thrombocytosis, history of renal calculi, history of pyelonephritis, GERD; with history of esophagitis on pantoprazole twice daily and sucralfate TID AC, history of axillary hidradenitis suppurativa, history of eczema, history of cholecystectomy, history of tubal ligation, depression, OA; with chronic low back pain and recent admission here from July 15, 2024 to July 17, 2024 for treatment of pneumonia with AE COPD and acute respiratory insufficiency complicated by hypokalemia of 3.2 mmol/L with a near syncopal event with generalized weakness who presents to [facility] ER complaining of shortness of breath, wheezing and chest pain. Ms. Irvin reports her symptoms began approximately 4 days prior to admission with gradual-onset of dyspnea on exertion that progressed to shortness of breath at rest. She also admits to a fever of 102.6 ?F with a sensation of tightness across her entire chest that is made worse with deep breathing and exertion and improved with rest in addition to nausea with neck and back pain. She states she is only able to walk a few feet without becoming severely short of breath with severe wheezing. She states her symptoms are similar to her previous AE COPD. She was evaluated in the ER here on January 04, 2025 and was diagnosed with fever and malaise due to suspected viral syndrome with a CXR that showed no acute findings. She denies associated runny nose, sore throat, ear pain, visual changes, cough, vomiting, dysuria, hematuria or rash. In the ER she was noted to have a CTA of the chest with IV contrast that revealed centrilobular nodularity with multifocal airspace disease in the Right lower lobe and to a lesser extent in the Right middle and upper lobes likely due to Multifocal Pneumonia with a corresponding Leukocytosis of 19.9 K present on admission in addition to an elevated D-dimer of 1.48 present on admission complicated by clinical evidence of AE COPD with Acute Respiratory Insufficiency in the setting of ongoing Tobacco Abuse and she was then admitted to the general medical floor for ongoing care for status expected to extend beyond 2 midnights. [facility] Medical History Near syncope Abnormal tissue in uterus Hypertension Gastroesophageal reflux disease Leukocytosis Acute pyelonephritis Substance abuse Alcohol abuse Chronic pain Kidney stones Smoker Sleep apnea Pulmonary embolism TIA (transient ischemic attack) Stroke/cerebrovascular accident COPD (chronic obstructive pulmonary disease) Asthma Home Medications ?Medication ?Instructions ?Recorded ?Last Taken ?Type albuterol sulfate 2.5 mg/3 mL 2.5 mg (3 mL) inhalation Q4H PRN 10/20/17 02/08/23 Rx (0.083 %) solution for nebulization #25 vials albuterol sulfate 90 mcg/actuation 1 - 2 puff inhalati on PRN PRN Sob 05/18/18 02/08/23 History aerosol inhaler (Ventolin HFA) &/Or Wheezing epinephrine 0.3 mg/0.3 mL 0.3 mg (0.3 mL) IM X1 ##1 Unknown Rx injection, auto-injector dextromethorphan-guaifenesin ER 60 1 tab PO Q12H 7 day s #14 tabs 07/17/24 Unknown Rx mg-1,200 mg tab,extend release,12hr (Mucinex DM) nicotine 14 mg/24 hr daily 14 mg transdermal DAILY 30 days 07/17/24 Unknown Rx transdermal patch #30 ea albuterol sulfate 90 mcg/actuation 2 puff inhalation Q 4H PRN PRN 01/05/25 Unknown Rx aerosol inhaler (Ventolin HFA) Wheezing ##1 Allergy/AdvReac Type Severity Reaction Status Date / Time peanut Allergy Anaphylaxis Verified 01/04/25 20:54 tree nut (Tree Nut) Allergy Anaphylaxis Verified 01/04/25 20:54 Family History Mother COPD (chronic obstructive pulmonary disease) Hypertension Father Epilepsy Surgical History History of bilateral ligation of fallopian tubes History of cholecystectomy Social History household members: none Smoking Status: Current every day smoker tobacco type: cigarettes alcohol intake: former substance use type: marijuana ROS ROS Narrative Review of Systems: Constitutional: Patient admits to fever but she denies chills. Eyes: Patient denies changes in vision or discharge from eyes. ENT: Patient denies runny nose, sore throat or ear pain. Resp: Patient admits to shortness of breath with wheezing but she denies cough. CV: Patient admits to sensation of tightness across her entire chest made worse with deep breathing and exertion as per HPI. She denies palpitations or heart racing. GI: Patient admits to nausea but she denies vomiting, diarrhea or constipation. : Patient denies dysuria, hematuria urinary frequency. MSK: Patient admits to generalized weakness with chronic neck and back pain. Skin: Patient denies rash, abscess, wounds or jaundice. Psych: Patient denies symptoms of uncontrolled depression or anxiety. Neuro: Patient denies headache, paresthesias or focal neurologic deficits. Allergy: Patient denies lip swelling, tongue swelling or urticaria. Hematology: Patient denies easy bleeding or easy bruisability. Endocrinology: Patient denies polyuria, polydipsia, polyphagia or heat/cold intolerance. 14 point ROS otherwise negative except for positives noted above in HPI. Vital Signs Vital Signs Vital Signs: 01/08/25 20:20 01/08/25 20:21 01/08/25 20:22 Temperature 98.8 F 98.8 F Temperature Source Temporal Oral Pulse Rate 120 H 118 H Respiratory Rate 26 H 28 H Respiratory Effort Respiratory Depth Respiratory Pattern Blood Pressure 159/79 H 159/79 H Blood Pressure Mean 105 105 Pulse Ox 86 90 92 Oxygen Delivery Method Room Air Nasal Cannula Nasal Cannula Oxygen Flow Rate (L/min) 2 2 01/08/25 20:54 01/08/25 20:54 01/08/25 20:54 Temperature Temperature Source Pulse Rate Respiratory Rate 14 Respiratory Effort Short of Breath Labored Respiratory Depth Deep Respiratory Pattern Tachypnea Blood Pressure Blood Pressure Mean Pulse Ox 95 95 Oxygen Delivery Method Nasal Cannula Nasal Cannula Nasal Cannula Oxygen Flow Rate (L/min) 2 2 2 01/08/25 20:59 01/08/25 21:22 01/08/25 22:00 Temperature 102.9 F H 102.9 F H 99.5 F H Temperature Source Oral Oral Oral Pulse Rate 116 H 116 H Respiratory Rate 18 20 H Respiratory Effort Respiratory Depth Respiratory Pattern Blood Pressure 108/90 H 138/93 H Blood Pressure Mean 96 108 Pulse Ox 94 94 Oxygen Delivery Method Nasal Cannula Oxygen Flow Rate (L/min) 2 01/08/25 22:33 01/08/25 23:00 01/09/25 00:00 Temperature 100 F H 99.2 F H Temperature Source Oral Oral Pulse Rate 118 H 120 H 81 Respiratory Rate 18 14 18 Respiratory Effort Respiratory Depth Respiratory Pattern Normal Blood Pressure 165/97 H 122/92 H Blood Pressure Mean 119 102 Pulse Ox 97 99 Oxygen Delivery Method Room Air Room Air Oxygen Flow Rate (L/min) 01/09/25 01:00 01/09/25 01:00 01/09/25 02:00 Temperature 97.7 F L 97.7 F L Temperature Source Oral Oral Pulse Rate 89 83 Respiratory Rate 22 H 23 H Respiratory Effort Respiratory Depth Respiratory Pattern Blood Pressure 117/72 136/95 H Blood Pressure Mean 87 108 Pulse Ox 85 93 91 Oxygen Delivery Method Room Air Nasal Cannula Room Air Oxygen Flow Rate (L/min) 2 01/09/25 03:00 01/09/25 04:00 Temperature 97.7 F L 97.9 F Temperature Source Oral Oral Pulse Rate 84 84 Respiratory Rate 23 H 25 H Respiratory Effort Respiratory Depth Respiratory Pattern Blood Pressure 105/78 148/91 H Blood Pressure Mean 87 110 Pulse Ox 95 98 Oxygen Delivery Method Room Air Room Air Oxygen Flow Rate (L/min) Weight Weight: 177 lb 4.8 oz Body Mass Index (BMI) 30.4 Physical Exam Const alert and oriented x3 Constitutional Narrative: Mild dyspnea noted. General Appearance: cooperative HEENT normocephalic, head/scalp atraumatic, hearing grossly normal bilaterally and moist oral mucous membranes Eyes PERRL and EOMs intact bilaterally Neck no lymphadenopathy and supple Resp Resp Narrative: Diminished breath sounds with expiratory wheezing throughout. Auscultation: wheezes Cardio regular rate and regular rhythm Cardio Narrative: Tachycardia at ~115 bpm noted. GI normal to inspection, nondistended, normoactive bowel sounds, soft to palpation, non-tender and non-distended GI Narrative: Obese. Extremity normal to inspection, full ROM and no clubbing, cyanosis or edema Skin Skin Narrative: Patient has no evidence of rash, abscess, wounds or jaundice. Neuro oriented x3, CN's II-XII intact bilaterally, moves all extremities and no focal motor deficits Sensorium / Orientation: awake, alert, oriented to person, oriented to place and oriented to time Speech: speech normal Psych Mood & Affect: anxious Results Medical Records Data Attestation: I reviewed the patient's medical records Lab / Micro Data Attestation: I reviewed the patient's lab results. 01/08/25 20:50 01/08/25 20:50 Labs: Laboratory Results - last 24 hr 01/08/25 20:50: WBC 19.9 H, RBC 4.59, Hgb 12.9, Hct 39.6, MCV 86.3, MCH 28.1, MCHC 32.6, RDW Std Deviation 44.6 H, RDW Coeff of Madhu 14.1, Plt Count 571 H, MPV 9.8, Immature Gran % (Auto) 0.400, Neut % (Auto) 83.9 H, Lymph % (Auto) 9.2 L, [place] % (Auto) 5.9, Eos % (Auto) 0.3, Baso % (Auto) 0.3, Absolute Neuts (auto) 16.7 H, Absolute Lymphs (auto) 1.82, Nucleated RBC % 0, PT 12.7, INR 0.9, APTT 30.1, D-Dimer Quant (PE/DVT) 1.48 H*, Sodium 134, Potassium 4.1, Chloride 95 L, Carbon Dioxide 26.4, Anion Gap 13, BUN 15, Creatinine 0.82, Estim Creat Clear Calc 76.72, Est GFR (MDRD) Non-Af 83, BUN/Creatinine Ratio 18.3, Glucose 109 H, Lactic Acid 1.4, Calcium 9.2, Troponin T High Sens 17 H Imaging Radiology Impression Chest X-Ray 01/08/25 21:00 IMPRESSION: 1. No acute cardiopulmonary abnormality. 2. Nodular opacity in the right mid lung zone measuring 8 mm. Consider nonemergent chest CT in this patient with emphysema. Reading Location: [id number] Chest CTA 01/09/25 00:35 IMPRESSION: Centrilobular nodularity with multifocal airspace disease in the right lower lobe and to a lesser extent in the right middle and upper lobes, probably multifocal pneumonia. Prior cholecystectomy. Mildly prominent mediastinal and hilar lymph nodes are noted with the largest measuring 1.3 cm, probably reactive. Uncomplicated sliding hiatal hernia. No significant coronary artery calcifications. No CT evidence of pulmonary embolus or aortic dissection. Reading Location: [place] [id number] Assessment & Plan Assessment/Plan (1) Multifocal pneumonia: (2) Leukocytosis: QUALIFIERS: Leukocytosis type: unspecified Qualified Code(s): D 72.829 - Elevated white blood cell count, unspecified (3) Acute exacerbation of chronic obstructive pulmonary disease: (4) Respiratory insufficiency: (5) Tobacco use: (6) Elevated d-dimer: (7) Obesity (BMI 30.0-34.9): (8) HELIO (obstructive sleep apnea): (9) Generalized weakness: PLAN: Plan 1. CTA of the chest with IV contrast that revealed centrilobular nodularity with multifocal airspace disease in the Right lower lobe and to a lesser extent in the right middle and upper lobes likely due to Multifocal Pneumonia with a corresponding Leukocytosis of 19.9 K present on admission - Admit to general medical floor. Start empiric IV piperacillin-tazobactam and IV vancomycin to cover potential nosocomial pathogens and await culture and sensitivity data. Check urinary antigens for Streptococcus pneumonia and Legionella. Give scheduled guaifenesin twice daily. Give acetaminophen as needed for [id number] (level 1-5/10) pain or fever. Give morphine IV as needed for severe (level 6-10/10) pain. Check ABG to establish baseline. 2. AE COPD with Acute Respiratory Insufficiency in the setting of ongoing tobacco abuse complicating #1 - Give IV methylprednisolone plus scheduled and as needed nebulizers. Tobacco cessation will be strongly encouraged with nicotine patch offered to control cravings. Chest pain is likely pleuritic in nature but we will serialize troponin to be sure. 3. Elevated D-dimer of 1.48 present on admission compounding #1 & #2 - Check LE Doppler to evaluate for DVT. 4. Obesity; with BMI of 30.4 this admission with HELIO adding to the burden of disease outlined from #1 - #3 - Weight also recommended. Continue nocturnal CPAP. Check TSH. This complicates her case and may hamper recovery. PT/OT and case management see patient on rounds in the a.m. for further recommendations regarding Generalized Weakness with help appreciated advance. 5. Recent admission here from July 15, 2024 to July 17, 2024 for treatment of pneumonia with AE COPD and acute respiratory insufficiency complicated by hypokalemia of 3.2 mmol/L with a near syncopal event with generalized weakness - Noted. 6. Essential hypertension - Give IV hydralazine prn for systolic blood pressure > 160 mmHg. 7. Hyperlipidemia - Check Lipid Profile with patient currently not on statin or other therapy. 8. Cannabis abuse - Cannabis Cessation will be strongly encouraged. 9. History of EtOH abuse - Patient denies actively drinking at this time. 10. History of PE; currently not on anticoagulation - Noted with negative CTA of the chest this admission. 11. History of pulmonary hypertension - Stable. 12. History of seizure - Stable with no evidence of recurrence at this time. 13. History of TIA/CVA - Noted. 14. History of peanut allergy (anaphylaxis) - Noted. 15. History of tree nut allergy (anaphylaxis) - Noted. 16. MIKIE - Stable with hemoglobin of 12.9 g/dL and MCV of 86.3 fL present this admission. 17. History of thrombocytosis - Stable with platelet count of 571K this admission. 18. History of renal calculi - Noted with no evidence of recurrence at this time. 19. History of pyelonephritis - Noted. 20. GERD; with history of esophagitis on pantoprazole twice daily and sucralfate TID AC - Maintain home regimen as before. 21. OA; with chronic low back pain - We will follow pain regimen and scales outlined in #1. 22. DVT prophylaxis - Enoxaparin 40 mg sq daily. Total time: Approximately (but not less than) 75 minutes. Charges/Coding Visit Charges Inpatient E&M: 27403 Init Hosp L3
--- OUTSIDE RECORDS SUMMARY | 2025-01-09 05:05 | XMS RPT_ITS | CCD ---
Author Organization [facility] Care Team Providers Care Health Care Attorney Name Role Phone Shagufta Francisco CNP Unavailable Crista PATRICKN, Caren A Unavailable Unavailab le BRENT DIOR (PAC) Unavailable Unavailhyun e Unavailable Primary Care Provider UnavailIvette Ross MD Primary Care Provider Dr. Ivette Welsh Primary Care Provider Dr. Omega Mejía Emergency Provider Robby, Dr. Yun Admit Provider Dr. Jama Bustamante Attending Provider Robby, Dr. Yun Other Provider KENISHA ABBASI MD III Primary Care Physician Radha Victoria RN Unavailable Unavailable IVETTE WELSH Primary Care Unavailable ORTIZ STROUD Admitting UnavailVANE Martin Attending Unavailable Radha Victoria RN Unavailable Unavailable Dr. Ivette Welsh Primary Care Provider Dr. Omega Mejía Emergency Provider [phone] Dr. Jama Bustamante Admit Provider Dr. Jama Bustamante Attending Provider Dr. Jama Bustamante Other Provider Dr. Idalia Sanchez Emergency Provider Dr. Alexandru Holden Admit Provider Dr. Alexandru Holden Attending Provider Dr. Alexandru Holden Other Provider Dr. Nito Thorne Attending Provider Dr. Nito Thorne Other Provider JOSE VARGHESE, ELKE Attending Unavailable AYLEEN VARGHESE, KENISHA A III Primary Care Unavailabl e AYLEEN VARGHESE, KENISHA A III Primary Care Unavailabl e JAIROMELJOSHUA Morales DO Attending Unavailable Ivette Welsh MD Primary Care Provider Unavailable Primary Care Provider Unavailabl e Tannhof AUTOMATIC PATTERN EDGER.LAW OFFICE ASSISTANT, Letha Unavailable Stuart AUTOMATIC PATTERN EDGER.LAW OFFICE ASSISTANT, Manoj Unavailable MICHELLE VARGHESE, KELLIE Roche Attending Unavail able AYLEEN VARGHESE, KENISHA A III Primary Care UnavailIVETTE Ross Primary Care Unavailable IVETTE WELSH Attending Unavailable IVETTE WELSH Primary Care Unavailable Tannhojorden AUTOMATIC PATTERN EDGER.LAW OFFICE ASSISTANT, Letha Unavailable Unavail able Blaise VARGHESE, Dr. Harris Primary Care Provider Mary MAE, Dr. Burkett Referring Provider Mary MAE, Dr. Burkett Emergency Provider Albert Hartmann Admitting Unavailable Albert Hartmann Consulting Unavailable Luis M, Jorge L Attending Unavailable Blaise, Ivette Primary Care Unavailable Robby, Jama Referring Unavailable Robby, Jama Consulting Unavailable Robby Jama Attending Unavailable Albert Hartmann Attending Unavailable Idalia Hays Attending Unavailhyun Welsh, Ivette Primary Care Unavailable ElderIvette potter Referring Unavailable Blaise, Ivette Primary Care Unavailable Basilio, Hancock Attending Unavailable Blaise, Ivette Primary Care Unavailable Bajwa, Tereso Referring Unavailable Garett, Tereso Attending Unavailable Kwadwo Hernandez Referring Unavailhyun e Kwadwo Hernandez Attending Unavailabl e Eldertariq, Ivette Primary Care Unavailable Albert Hartmann Consulting Unavailable Blaise, Ivette Primary Care Unavailable Robby, Jama Attending Unavailable Albert Hartmann Admitting Unavailable Allergies Allergy Classification Reported Allergen(s) Allergy Type Date of Onset Reaction(s) Facility (11 sources) peanut allergenic extract; Translations: [peanut] drug allergy 6 anaphylaxis [facility] Work Phone: (20 sources) tree nut, unspecified; Translations: [TREE NUT] drug allergy 6 Anaphylaxis [facility] Work Phone: (3 sources) OTHER; Translations: [OTHER] Propensity to adverse reactions (disorder) 6 AOF [facility] Other [place] [facility] (20 sources) all nuts [Other] Propensity to adverse reactions 6 Anaphylaxis [facility] Work Phone: (20 sources) peanut; Translations: [PEANUTS] Food allergy 3 Anaphylaxis [facility] (20 sources) brazil nut allergenic extract; Translations: [BRAZIL NUT] Drug Allergy 3 Anaphylaxis [facility] (20 sources) cashew nut allergenic extract; Translations: [CASHEW NUT] Drug Allergy 3 Anaphylaxis [facility] (20 sources) Hazelnut; Translations: [HAZELNUT] Drug Allergy 3 [facility] (20 sources) pecan allergenic extract; Translations: [PECAN NUT] Drug Allergy 3 Anaphylaxis [facility] (20 sources) [place] nut; Translations: [PINE NUT] Drug Allergy 3 [facility] (20 sources) pistachio nut allergenic extract; Translations: [PISTACHIO NUT] Drug Allergy 3 Anaphylaxis [facility] (20 sources) Argan Nut; Translations: [ARGAN NUT] Drug Allergy 3 [facility] (20 sources) Macadamia Nut Oil; Translations: [MACADAMIA NUT OIL] Drug Allergy 3 [facility] Medications Current Medications Medication Drug Class(es) Dates Sig (Normalized) Sig (Original) + Nebulizer Supplies (20 sources) Start: 11-09-2017 + Nebulizer Supplies Indications: Mild intermittent asthma without complication (HCC) Nebulizer, Mask, & O2 Tubing. Use as directed. 1 Each 11/09/2017 Active Start: 11-09-2017 + Nebulizer Moses pplies Indications: Mild intermittent asthma without complication Nebulizer, Mask, & O2 Tubing. Use as directed. 1 Each 12 11/09/2017 Active Comment on above: Nebulizer, Mask, & O 2 Tubing. Use as directed. [id number] 200 actuat albuterol 0.09 mg/actuat metered dose inhaler (20 sources) beta2-Adrenergic Agonist Start: 01-05-2025 Albuterol Sulfate (Ventolin Hfa) 90 mcg/actuation HFA aerosol inhaler Active 2 NMA INHALATION EVERY 4 HOURS NEEDED as needed for Wheezing January 05, 2025 12:00am Start: 11-02-2024 take 2 puff(s) by mo uth every four hours for wheezing albuterol HFA [...] HFA aerosol inhaler Active 1 - 2 NMA INHALATION NEEDED as needed for Sob &/Or Wheezing May 18, 2018 12:00am Start: 05-18-2018 Albuterol [...] hours as needed for wheezing Albuterol Sulfate 2.5 MG/3 ML solution for nebulization Active 2.5 mg INHALATION EVERY 4 HOURS NEEDED October 20, 2017 12:00am Use q4 hours and PRN for wheezing Start: 06-02-2016 End: 10-18-2016 take 2.5 mg by inhalation every four hours Albuterol Sulfate 2.5 MG/3 ML Vial.Neb. Discontinued 2.5 mg INHALATION EVERY 4 HOURS WHILE AWAKE June 02, 2016 1:00am October 18, 2016 10:49am Start: 10-24-2015 VENTOLIN HFA 1 08 (90 Base) MCG/ACT AERS 1-2 puffs q4h as needed ALBUTEROL SULFATE [id number] Juhi Reyes Start: 07-22-2015 End: 10-19-2015 take 2.5 mg by inhalation every two hours as needed for dyspnea Albuterol Sulfate 2.5 MG/3 ML Vial.Neb. Discontinued 2.5 mg INHALATION EVERY 2 HOURS NEEDED as needed for dyspnea, wheezing July 22, 2015 1:00am October 19, 2015 11:36am Start: 10-31-2014 End: 01-07-2015 take 1 puff(s) by inhalation every six hours as needed Albuterol Sulfate (Proair Hfa (Sp)Vent Pts) 1 PUFF inhaler Discontinued 2 NMA INHALATION EVERY 6 HOURS NEEDED as needed for Asthma October 31, 2014 12:00am January 07, 2015 6:57pm Start: 10-31-2014 End: 01-07-2015 take 1 puff(s) [...] needed for wheezing or shortness of breath Blood Pressure Cuff - Home Use (20 [...] HOME USE. DX: asthma, mild intermittent J45.20 12 hr dextromethorphan hydrobromide 60 mg / guaiFENesin 1200 mg extended release oral tablet (1 source) Uncompetitive A-ljukal-P-aspartate Receptor Antagonist, Sigma-1 Agonist Start: 07-17-20 24 take 60-1200 mg by mouth every twelve hours Dextromethorpha n-Guaifenesin (Mucinex Dm) 60-1,200 mg tablet extended release 12 hr Active 1 {tbl} PO Q12H 14 July 17, 2024 1:00am Dulera 200 mcg-5 mcg/inh Metered Dose Inhaler (3 sources) Start: 02-24-20 take 1 dose by inhalation twice daily Dulera 200 mcg-5 mcg/inh Metered Dose Inhaler Dose = 2 puff(s), Inhalation, BID Start Date: 02/23/17 Status: Ordered Repeat number: 1 Start: 02-23-2017 take 1 dose by inhal ation twice daily Dulera 200 mcg-5 mcg/inh Metered Dose Inhaler Dose = 2 puff(s), Inhalation, BID Start Date: 02/23/17 Status: Ordered [id number] 0.3 ml EPINEPHrine 1 mg/ml auto-injector (20 sources) alpha-Adrenergic Agonist, beta-Adrenergic Agonist, Catecholamine Start: 01-23-2019 End: 02-18-2023 EPINEPHrine (EPIPEN) 0.3 mg/0.3 mL auto-injector Use as directed for allergic reaction 2 Each 1 02/18/2023 Active Start: 01-21-2019 inject 0.3 mg by int ramuscular injection once Epinephrine 0.3 MG syringe Active 0.3 mg IM ONE TIME January 21, 2019 12:00am Start: 07-11-2017 EpiPen 2-Ruchi 0 .3 mg injectable kit Dose : 0.3 mg = 1 EA, Intramuscular, AsDirected, PRN allergic reaction, # 1 kit(s), 0 Refill(s) Start Date: 07/11/17 Status: Ordered Quantity: 1.0 Unit: kit(s) Repeat number: 1 Start: 10-24-2015 EPIPEN 2-RUCHI 0 .3 MG/0.3ML SOAJ as needed EPINEPHRINE [id number] Juhi Reyes Start: 10-20-2015 EpiPen 2-Ruchi D [...] nuts Use as directed for allergic reaction ibuprofen 200 mg oral capsule (20 sources) Nonsteroidal Anti-inflammatory Drug Ibuprofen 200 mg cap Take by mouth as directed. Active Comment on above: Take by mouth as dir ected. lansoprazole 15 mg delayed release oral capsule (3 sources) Proton Pump Inhibitor Start: 02-23-2017 Prevacid 15 mg oral delayed release capsule (NF) Dose : 15 mg = 1 cap(s), PO, Daily, # 14 tab(s), 0 Refill(s) Start Date: 02/23/17 Status: Ordered Quantity: 14.0 Unit: tab(s) Repeat number: 1 levETIRAcetam 500 mg oral tablet (5 sources) Anti-epileptic Agent Start: 02-23-2017 Keppra 500 mg oral tablet Dose : 500 mg = 1 tab(s), Oral, BID Start Date: 02/23/17 Status: Ordered Repeat number: 1 Start: 09-10-2016 take 1 tablet by rob twice daily KEPPRA 500 MG TABS One tablet by mouth twice daily LEVETIRACETAM [id number] Doreen De Los Santos RN levoFLOXacin 500 mg oral tablet (9 sources) Quinolone Antimicrobial Start: 07-17-2024 take 1 tablet by mouth once daily Levofloxacin 500 mg tablet Active 500 mg PO DAILY 11 20July 17, 2024 1:00am Start: 10-12-2015 End: 10-19-2015 take 1 tablet by mouth once daily Levofloxacin 500 MG tablet Discontinued 500 mg PO DAILY October 12, 2015 12:00am October 19, 2015 11:33am Lopressor 25mg--USE metoprol ol tartrate 25 mg [...] Each twice daily. New mask for nebulizer 24 hr nicotine 0.583 mg/hr transdermal system (1 source) Cholinergic Nicotinic Agonist Start: 07-17-20 apply 1 dose transdermal route every twenty-four hours Nicotine 14 mg/24 hr Patch 24 Hour Active 14 mg TD DAILY July 17, 2024 1:00am nirmatrelvir tablet 300 mg (150 mg x 2) and ritonavir tablet 100 mg in a dose pack (PAXLOVID) (3 sources) Start: 08-23-19 End: 08-28-19 nirmatrelvir tablet 300 mg (150 mg x [...] tablet (20 sources) Proton Pump Inhibitor Start: 07-17-2024 take 1 tablet by mouth twice daily before mealtime pantoprazole DR (PROTONIX) 40 mg tablet Indications: Dysphagia, unspecified type , Sore throat Take 1 tablet by mouth two times a day. Take on empty stomach, 1/2 hr before meal. 60 tablet 11 07/24/2024 Active Start: 02-22-2023 End: 12-30-2023 take 1 tablet by mouth every twelve hours Pantoprazole (Protonix) 40 mg tablet,delayed release (DR/EC) Discontinued 40 mg PO Q12H 60 June 05, 2023 1:00am December 30, 2023 9:05pm Start: 02-18-2023 End: 07-24-2024 take 1 tablet [...] 40 mg tablet,delayed release (DR/EC) Discontinued 40 mg PO TWICE A DAY 07 05November 16, 2022 12:00am February 08, 2023 3:00pm Comment on above: Take 1 tablet by rob th daily before breakfast. Take on empty stomach, 1/2 hr before meal. predniSONE 20 mg oral tablet (20 sources) Corticosteroid Start: End: take 2 tablets by mouth once daily predniSONE (DELTASONE) 20 mg tablet Take 2 tablets by mouth once daily for 5 days. 10 tablet 08/23/2024 08/28/2024 Active Start: 06-05-2023 End: 12-30-2023 take 2 tablets by mouth at breakfast Prednisone 20 mg Tablet Discontinued 40 mg PO WITH BREAKFAST June 05, 2023 1:00am December 30, 2023 9:05pm Start: 06-05-2023 take 40 mg by mouth at breakfa st Prednisone Active 40 MG PO WITH BREAKFAST June 05, 2023 12:00am Start: 08-31-2021 End: 02-08-2023 take 3 tablets by mouth once daily Prednisone 20 MG tablet Discontinued 60 mg PO DAILY August 31, 2021 1:00am February 08, 2023 3:01pm Start: 08-31-2021 End: 02-08-2023 take 60 mg [...] number: 1 Start: 01-20-2016 End: 02-04-2016 Prednisone 10 MG tablet Discontinued 10 mg PO DIRECTED January 20, 2016 12:00am February 04, 2016 2:14pm 40 mg daily x 3 days then, 30 mg daily x 3 days then, 20 mg daily x 3 days then, 10 mg daily x 3 days Please contact the information source for Taper Schedule details. Start: 01-20-2016 End: 02-04-2016 Prednisone Discontinued 10 M G PO DIRECTED January 19, 2016 11:00pm February 04, 2016 1:14pm 40 mg daily x 3 days then, 30 mg daily x 3 days then, 20 mg daily x 3 days then, 10 mg daily x 3 days Start: 12-22-2015 End: 12-25-2015 take 1 tablet by mouth once daily Prednisone 10 MG tablet Discontinued 10 mg PO DAILY December 22, 2015 12:00am December 25, 2015 9:19am Start: 12-22-2015 End: 12-25-2015 take 1 tablet by mouth at bedtime Prednisone 5 MG tablet Discontinued 5 mg PO AT BEDTIME December 22, 2015 12:00am December 25, 2015 9:17am Start: 12-05-2015 End: 12-12-2015 take 3 tablets by mouth once daily Prednisone 10 MG tablet Discontinued 30 mg PO DAILY December 05, 2015 12:36am December 12, 2015 7:42am Please contact the information source for Taper Schedule details. Start: 12-05-2015 End: 12-12-2015 take 30 mg by mouth once daily Prednisone Discontinued 30 MG PO DAILY December 04, 2015 11:36pm December 12, 2015 6:42am Start: 10-19-2015 End: 12-05-2015 take 2 tablets by mouth twice daily Prednisone 10 MG tablet Discontinued 10 mg PO DAILY October 19, 2015 11:40am December 05, 2015 12:36am take 2 tablets twice daily for 5 more days Start: 09-23-2015 End: 11-08-2015 Prednisone 10 MG tablet Discontinued 10 mg PO DAILY October 12, 2015 1:26pm October 19, 2015 11:37am Take 3 tablets for 3 days, then [...] tablet by mouth every other day Prednisone 10 MG tablet Discontinued 10 mg PO DIRECTED September 21, 2015 1:00am September 23, 2015 2:53pm Take 4 tablets daily for 3 days, then 3 daily for 3 days, then 2 daily for 3 days, then 1 a day for 3 days then 1 QOD for 3 doses. sucralfate 1000 mg oral tablet (6 sources) Aluminum Complex Start: 07-17-2024 sucralfate (C ARAFATE) 1 gram tablet .TID AC 07/17/2024 Active Completed/Discontinued Medications Medication Drug Class(es) Dates Sig (Normalized) Sig (Original) acetaminophen 325 mg / HYDROcodone bitartrate 5 mg oral tablet (13 sources) Opioid Agonist Start: 04-28-2024 End: 07-15-2024 Hydrocodone-Acetami nophen 5-325 mg tablet Discontinued 1 {tbl} PO EVERY 6 HOURS NEEDED as needed for Pain 10 April 28, 2024 July 15, 2024 11:58pm Start: 08-11-2020 End: 08-14-2020 Hydrocodone-Acetaminophen 1 TABLET tablet Discontinued 1 {tbl} PO EVERY 6 HOURS NEEDED as needed for Pain 10 August 11, 2020 August 13, 2020 1:00am August 14, 2020 1:03am Start: 08-11-2020 End: 08-14-2020 take 1 tablet by mouth every six hours as needed Hydrocodone-Acetaminophen Discontinued 1 TABLET PO EVERY 6 HOURS NEEDED 10 August 11, 2020 August 14, 2020 12:03am Start: 10-24-2015 End: 01-13-2017 NORCO 5-325 MG TABS as direc harpal HYDROCODONE-ACETAMINOPHEN [id number] Luis Fernando Salazar DO Start: 10-24-2015 NORCO 5-325 MG TABS as directed HYDROCODONE-ACETAMINOPHEN [id number] Doreen De Los Santos RN acetaminophen 325 mg / oxyCODONE hydrochloride 5 mg oral tablet (17 sources) Opioid Agonist Start: 10-12-2022 End: 02-08-2023 Oxycodone-Acetaminophen (Endocet) 5-325 mg tablet Discontinued 1 {tbl} PO EVERY 6 HOURS as needed for pain 12 October 12, 2022 February 08, 2023 3:00pm Start: 10-24-2015 take 1 tablet by rob th every four hours as needed PERCOCET 5-325 MG TABS 1 tab po q4h as needed OXYCODONE-ACETAMINOPHEN [id number] Juhi Reyes Start: 03-04-2015 End: 03-09-2015 Oxycodone-Acetaminophen 1 TA BLET tablet Discontinued 1 - 2 {tbl} PO EVERY 4 HOURS NEEDED as needed for Pain March 04, 2015 12:00am March 09, 2015 3:05pm Start: 03-04-2015 End: 03-09-2015 take 1 tablet by mouth every four hours as needed Oxycodone-Acetaminophen Discontinued 1 - 2 TABLET PO EVERY 4 HOURS NEEDED March 03, 2015 11:00pm March 09, 2015 2:05pm albuterol 0.833 mg/ml / ipratropium bromide 0.167 mg/ml inhalation solution (20 sources) Anticholinergic, beta2-Adrenergic Agonist Start: 09-29-2021 End: 07-18-2024 take 3 mL by inhalation every six hours as needed for wheezing ipratropium-albuterol (DUONEB) 0.5 mg-3 mg(2.5 mg base)/3 mL nebu Indications: Moderate persistent asthma with acute exacerbation (HCC) Inhale 3 mL as instructed every 6 hours as needed (wheezing). Use over 5-15minutes per nebulizer. 120 Each 11 07/18/2024 Active Start: 08-31-2021 End: 12-30-2023 take 1 mL by inhalation twice daily Ipratropium-Albuterol 0.5 mg-3 mg(2.5 mg base)/3 mL solution for nebulization Discontinued 3 mL INHALATION TWICE A DAY 180 June 05, 2023 2:20pm December 30, 2023 9:05pm Start: 08-31-2021 End: 06-05-2023 take 1 mL by inhalation twice daily Ipratropium-Albuterol Active 3 ML INHALATION TWICE A DAY 180 June 05, 2023 1:20pm Start: 09-10-2016 DUONEB 0.5-2.5 (3) MG/3ML SOLN Via nebulizer as needed IPRATROPIUM-ALBUTEROL Doreen De Los Santos RN Start: 07-22-2015 End: 10-19-2015 take 1 mL by inhalation every six hours Ipratropium-Albuterol 3 ML Ampul.Neb Discontinued 3 mL INHALATION EVERY 6 HOURS X 10 DAYS July 22, 2015 1:00am October 19, 2015 11:37am Start: 07-22-2015 End: 10-19-2015 take 1 mL by inhalation every six hours Ipratropium-Albuterol Discontinued 3 ML INHALATION EVERY 6 HOURS X 10 DAYS July 22, 2015 12:00am October 19, 2015 10:37am Comment on above: Inhale 3 mL as instr ucted every 6 hours as needed (wheezing). Use over 5-15minutes per nebulizer. amitriptyline hydrochloride 25 mg oral tablet (4 sources) Tricyclic Antidepressant Start: 09-10-19 End: 01-14-20 take 1 tablet by mouth once daily AMITRIPTYLINE HCL 25 MG TABS (Elavil) One tablet by mouth daily AMITRIPTYLINE HCL [id number] Luis Fernando Salazar DO amLODIPine 5 mg oral tablet (14 sources) Dihydropyridine Calcium Channel Sangeeta Start: 06-05-20 End: 12-30-19 take 1 tablet by mouth once daily Amlodipine 5 mg Tablet Discontinued 5 mg PO DAILY June 05, 2023 1:00am December 30, 2023 9:05pm Start: 06-10-2016 End: 01-13-2017 take 1 tablet by mouth once daily Amlodipine 5 MG tablet Discontinued 5 mg PO DAILY June 10, 2016 1:00am September 12, 2016 12:16pm amoxicillin 500 mg oral tablet (8 sources) Penicillin-class Antibacterial Start: 09-09-2022 End: 02-08-2023 take 1 tablet by mouth three times daily Amoxicillin 500 MG tablet Discontinued 500 mg PO THREE TIMES A DAY September 09, 2022 1:00am February 08, 2023 3:00pm atorvastatin 80 mg oral tablet (10 sources) HMG-CoA Reductase Inhibitor Start: 09-10-2016 take 1 tablet by mouth once daily ATORVASTATIN CALCIUM 80 MG TABS One tablet by mouth daily ATORVASTATIN CALCIUM [id number] Doreen De Los Santos RN Start: 10-31-2014 End: 01-07-2015 take 1 tablet by mouth at bedtime Atorvastatin 40 MG tablet Discontinued 40 mg PO AT BEDTIME October 31, 2014 12:00am January 07, 2015 6:53pm azithromycin 250 mg oral tablet (12 sources) Macrolide Antimicrobial Start: 09-10-2016 End: 01-13-2017 take 1 tablet by mouth once daily AZITHROMYCIN 250 MG TABS One tablet by mouth daily AZITHROMYCIN [id number] Doreen De Los Santos RN Start: 09-21-2015 End: 09-23-2015 take 1 tablet by mouth once daily Azithromycin 250 MG tablet Discontinued 250 mg PO DAILY September 21, 2015 1:00am September 23, 2015 2:54pm benzonatate 100 mg oral capsule (12 sources) Non-narcotic Antitussive Start: 10-24-2015 End: 01-13-2017 take 1 tablet by mouth once daily TESSALON PERLES 100 MG CAPS One tablet by mouth daily BENZONATATE [id number] Luis Fernando Salazar DO Start: 09-21-2015 End: 10-09-2015 take 2 capsules by mouth three times daily as needed for cough Benzonatate 100 MG capsule Discontinued 200 mg PO 3 TIMES DAILY NEEDED as needed for Cough September 21, 2015 1:00am October 09, 2015 4:20pm Start: 09-21-2015 End: 10-09-2015 take 200 mg by mouth three times daily as needed Benzonatate Discontinued 200 MG PO 3 TIMES DAILY NEEDED September 21, 2015 12:00am October 09, 2015 3:20pm BUDESONIDE-FORMOTEROL FUMARATE (4 sources) Corticosteroid, beta2-Adrenergic Agonist Start: 10-24-2015 End: 01-13-2017 take 2 puff(s) by inhalation twice daily SYMBICORT 160-4.5 MCG/ACT AERO INH 2 puffs twice daily BUDESONIDE-FORMOTEROL FUMARATE [id number] Luis Fernando Salazar DO Start: 10-24-2015 take 2 puff(s) by in halation twice daily SYMBICORT 160-4.5 MCG/ACT AERO INH 2 puffs twice daily BUDESONIDE-FORMOTEROL FUMARATE [id number] Juhi Reyes cephalexin 500 mg oral capsule (2 sources) Cephalosporin Antibacterial Start: 04-28-2024 End: 07-15-2024 take 1 capsule by mouth every six hours Cephalexin 500 mg capsule Discontinued 500 mg PO EVERY 6 HOURS 40 April 28, 2024 12:00am July 15, 2024 11:58pm Start: 12-30-2023 End: 07-15-2024 take 1 capsule by mouth every twelve hours Cephalexin 500 mg capsule Discontinued 500 mg PO EVERY 12 HOURS December 30, 2023 12:00am July 15, 2024 11:58pm ciprofloxacin 500 mg oral tablet (4 sources) Quinolone Antimicrobial Start: 02-11-2023 End: 06-05-2023 take 1 tablet by mouth twice daily Ciprofloxacin Hcl (Cipro) 500 mg tablet Discontinued 500 mg PO TWICE A DAY 14 February 11, 2023 12:00am June 05, 2023 2:18pm On Hold: NOT TAKING citalopram 40 mg oral tablet (12 sources) Serotonin Reuptake Inhibitor Start: 10-24-2015 End: 01-13-2017 take 1 tablet by mouth once daily CELEXA 40 MG TABS One tablet by mouth daily CITALOPRAM HYDROBROMIDE [id number] Luis Fernando Salazar DO Start: 02-01-2015 End: 09-25-2015 take 1 tablet by mouth once daily Citalopram 40 MG tablet Discontinued 40 mg PO DAILY February 01, 2015 12:00am September 25, 2015 3:06pm dicyclomine hydrochloride 10 mg oral capsule (8 sources) Anticholinergic Start: 09-09-2022 End: 02-08-2023 take 2 capsules by mouth every six hours as needed Dicyclomine 10 MG capsule Discontinued 20 mg PO EVERY 6 HOURS NEEDED as needed for abdominal discomfort September 09, 2022 6:45am February 08, 2023 3:00pm Start: 09-09-2022 End: 02-08-2023 take 20 mg by mouth every six hours as needed Dicyclomine Discontinued 20 MG PO EVERY 6 HOURS NEEDED September 09, 2022 5:45am February 08, 2023 2:00pm doxycycline monohydrate 100 mg oral capsule (8 sources) Tetracycline-class Drug Start: 08-31-2021 End: 02-08-2023 take 1 capsule by mouth twice daily Doxycycline Monohydrate 100 MG capsule Discontinued 100 mg PO TWICE A DAY August 31, 2021 1:00am February 08, 2023 3:00pm DULoxetine 30 mg delayed release oral capsule (5 sources) Serotonin and Norepinephrine Reuptake Inhibitor Start: 09-29-2021 End: 02-18-2023 take 1 capsule by mouth once daily DULoxetine (CYMBALTA) 30 mg capsule Indications: Anxiety and depression Take 1 capsule by mouth once daily. 90 capsule 1 09/29/2021 02/18/2023 Discontinued Comment on above: Take 1 capsule by mouth once daily. famotidine 20 mg oral tablet [...] Corticosteroid, beta2-Adrenergic Agonist Start: 10-28-2020 End: 02-18-2023 fluticasone-christina nterol (BREO ELLIPTA) 200-25 mcg/dose inhaler Indications: Severe persistent asthma with acute exacerbation Inhale 1 Inhalation as instructed once daily. Inhale one puff once daily. DO NOT CLICK OPEN UNTIL READY FOR DOSE 90 Each 3 10/28/2020 02/18/2023 Discontinued Comment on above: Inhale 1 Inhalation as instructed once d aily. Inhale one puff once daily. DO NOT CLICK OPEN UNTIL READY FOR DOSE MOMETASONE FURO-FORMOTEROL FUM (2 sources) Corticosteroid, beta2-Adrenergic Agonist Start: 01-13-2017 take 2 puff(s) by inhalation twice daily DULERA 200-5 MCG/ACT AERO 2 puffs INH Twice daily MOMETASONE FURO-FORMOTEROL FUM [id number] Luis Fernando Salazar DO gabapentin 300 mg oral capsule (15 sources) Anti-epileptic Agent Start: 09-29-2021 End: 02-18-2023 [...] 02/18/2023 Discontinued Start: 03-21-2019 End: 02-08-2023 take 1 capsule by mouth three times daily Gabapentin 300 capsule Discontinued 300 mg PO THREE TIMES A DAY March 21, 2019 12:00am February 08, 2023 3:00pm Start: 09-10-2016 take 1 tablet by rob three times daily GABAPENTIN 300 MG CAPS One tablet by mouth three times daily GABAPENTIN [id number] Doreen De Los Santos RN Comment on above: take 1 capsule by mo [facility] every morning 1 capsule every AFTERNOON, and 2 at bedtime GUAIFENESIN (20 sources) Start: 09-10-2016 take 1 tablet by mouth twice daily MUCINEX 600 MG [id number] One tablet by mouth twice daily GUAIFENESIN [id number] Luis Fernando Salazar DO Start: 10-24-2015 End: 01-13-2017 take 5 mL by mouth every six hours as needed ROBITUSSIN CHEST CONGESTION 100 MG/5ML ORAL SYRP 5 mL q6h as needed GUAIFENESIN [id number] Luis Fernando Salazar DO Start: 10-24-2015 End: 09-10-2016 take 1 tablet by mouth twice daily as needed MUCINEX 600 MG [id number] One tablet by mouth twice daily as needed GUAIFENESIN [id number] Doreen De Los Santos RN Start: 10-24-2015 take 5 mL by mouth e very six hours as needed ROBITUSSIN CHEST CONGESTION 100 MG/5ML ORAL SYRP 5 mL q6h as needed GUAIFENESIN [id number] Juhi Reyes Start: 10-24-2015 take 1 tablet by rob twice daily as needed MUCINEX 600 MG [id number] One tablet by mouth twice daily as needed GUAIFENESIN [id number] Juhi Reyes Start: 10-20-2015 take 1 dose by mouth twice daily as needed for congestion Mucinex Dose : 600 mg =, Oral, BID, PRN Congestion Start Date: 10/20/15 Status: Ordered Repeat number: 1 Start: 09-23-2015 End: 10-09-2015 take 1 tablet by mouth twice daily Guaifenesin (Mucus Relief Er) 600 MG tablet Discontinued 600 mg PO TWICE A DAY September 23, 2015 1:00am October 09, 2015 4:20pm hydroCHLOROthiazide 12.5 mg oral capsule (2 sources) Thiazide Diuretic Start: 06-05-2023 End: 12-30-2023 take 1 capsule by mouth once daily Hydrochlorothiazide 12.5 mg Capsule Discontinued 12.5 mg PO DAILY June 05, 2023 1:00am December 30, 2023 9:05pm hydrOXYzine hydrochloride 25 mg oral tablet (14 sources) Antihistamine Start: 10-24-2015 End: 01-13-2017 take 1 tablet by mouth three times daily as needed for anxiety Hydroxyzine (Atarax) 25 MG tablet Discontinued 25 mg PO 3 TIMES DAILY NEEDED as needed for Anxiety December 22, 2015 12:00am December 25, 2015 11:47am Start: 10-24-2015 take 1 tablet by rob th twice daily as needed HYDROXYZINE HCL 25 MG TABS One tablet by mouth twice daily as needed HYDROXYZINE HCL [id number] Juhi Reyes lisinopril 40 mg oral tablet (20 sources) Angiotensin Converting Enzyme Inhibitor Start: 01-20-2016 End: 2016 take 1 tablet by mouth once daily Lisinopril 40 MG tablet Discontinued 40 mg PO DAILY January 20, 2016 12:00am 2016 3:46pm Start: 10-08-2015 End: 01-20-2016 take 1 tablet by mouth once daily Lisinopril 20 MG tablet Discontinued 20 mg PO DAILY January 16, 2016 12:00am January 20, 2016 9:14am Start: 02-01-2015 End: 10-12-2015 take 4 tablets by mouth once daily Lisinopril 5 MG tablet Discontinued 20 mg PO DAILY February 01, 2015 12:00am October 12, 2015 3:24pm Start: 02-01-2015 End: 10-12-2015 take 20 mg by mouth once daily Lisinopril Discontinued 20 MG PO DAILY January 31, 2015 11:00pm October 12, 2015 2:24pm LORazepam 0.5 mg oral tablet (4 sources) Benzodiazepine Start: 10-24-2015 End: 01-13-2017 take 1 tablet by mouth three times daily as needed ATIVAN 0.5 MG TABS One tablet by mouth three times daily as needed LORAZEPAM [id number] Juhi Reyes losartan potassium 25 mg oral [...] One tablet by mouth at bedtime. MELATONIN [id number] Dorene De Los Santos RN metoprolol tartrate 25 mg oral tablet (4 sources) beta-Adrenergic Sangeeta Start: 10-24-2015 End: 01-13-2017 take 1 tablet by mouth twice daily METOPROLOL TARTRATE 25 MG TABS One tablet by mouth twice daily METOPROLOL TARTRATE [id number] Luis Fernando Salazar DO omeprazole 40 mg delayed release oral capsule (9 sources) Proton Pump Inhibitor Start: 10-24-2015 take 1 tablet by mouth once daily PRILOSEC 40 MG ORAL CPDR One tablet by mouth daily OMEPRAZOLE [id number] Juhi Reyes Start: 10-20-2015 End: 01-13-2017 PriLOSEC 40 mg oral delayed release capsule (NF) Dose : 40 mg = 1 cap(s), Oral, qDayAC Start Date: 10/20/15 Status: Ordered Repeat number: 1 ondansetron 4 mg disintegrating oral tablet (6 sources) Serotonin-3 Receptor Antagonist Start: 11-16-2022 End: 02-08-2023 take 1 tablet by mouth every six hours as needed for nausea and vomiting Ondansetron 4 mg tablet,disintegrating Discontinued 4 mg PO EVERY 6 HOURS as needed for nausea and vomiting November 16, 2022 12:00am February 08, 2023 3:00pm oxyCODONE hydrochloride 5 mg oral tablet (8 sources) Opioid Agonist Start: 03-23-2019 End: 03-31-2019 take 7-10 tablets by mouth every twelve hours as needed for pain Oxycodone 5 MG tablet Discontinued 5 mg PO EVERY 12 HOURS NEEDED as needed for Severe pain 7-10 in severity 7 March 23, 2019 March 25, 2019 12:00am March 31, 2019 12:10am rivaroxaban 15 mg oral tablet (4 sources) Factor Xa Inhibitor Start: 10-24-2015 End: 01-13-2017 take 1 tablet by mouth twice daily XARELTO 15 MG TABS One tablet by mouth twice daily RIVAROXABAN [id number] Luis Fernando Salazar DO sertraline 100 mg oral tablet (12 sources) Serotonin Reuptake Inhibitor Start: 10-24-2015 End: 01-13-2017 take 1 tablet by mouth once daily ZOLOFT 100 MG TABS One tablet by mouth daily SERTRALINE HCL [id number] Luis Fernando Salazar DO Start: 09-23-2015 End: 09-25-2015 take 1 tablet by mouth once daily Sertraline 50 MG tablet Discontinued 50 mg PO DAILY September 23, 2015 1:00am September 25, 2015 3:07pm Problems Active Problems Problem Classification Problem Date Documented Da te Episodic/Chronic Acute cerebrovascular disease (20 sources) Cerebrovascular accident; Translations: [Cerebral infarction, unspecified] Onset: 07-03-2015 Resolved: 07-25-2020 09-10-2016 Chronic Alcohol-related disorders (20 sources) Nondependent alcohol abuse in remission; Translations: [Alcohol abuse, in remission] Onset: 11-30-2014 Resolved: 03-26-2016 10-30-2015 Chronic Allergic reactions (20 sources) Eczema; Translations: [Dermatitis, unspecified] Onset: 12-31-2011 Resolved: 09-03-2014 02-28-2021 Episodic Anxiety disorders (20 sources) Anxiety; Translations: [Mixed anxiety and depressive disorder] Onset: 11-07-2015 01-13-2017 Chronic Asthma (20 sources) Asthma; Translations: [Unspecified asthma, uncomplicated] 05-17-2018 Chronic Chronic obstructive pulmonary disease and bronchiectasis (20 sources) Chronic obstructive lung disease; Translations: [Chronic bronchitis] Onset: 08-03-2012 09-10-2016 Chronic Deficiency and other anemia (8 sources) Iron deficiency anemia; Translations: [Iron deficiency anemia, unspecified] 05-19-2018 Episodic Diseases of white blood cells (20 sources) Leukocytosis; Translations: [Elevated white blood cell count, unspecified] Onset: 10-16-2017 10-16-2017 Chronic Disorders of lipid metabolism (20 sources) Hyperlipidemia; Translations: [Hyperlipidemia, unspecified] Onset: 11-30-2014 09-10-2016 Chronic Disorders of teeth and jaw (8 sources) Dental abscess; Translations: [Periapical abscess without sinus] 09-09-2022 Episodic E Codes: Fall (6 sources) Accidental fall ; Translations: [Unspecified fall, initial encounter] 10-20-2022 Episodic Esophageal disorders (20 sources) Gastro-esophageal reflux disease with esophagitis; Translations: [Reflux esophagitis] Onset: 09-19-2012 09-19-2012 Chronic Esophageal disorders (3 sources) Esophagitis; Translations: [Esophagitis] 06-05-2023 Episodic Essential hypertension (20 sources) Hypertensive disorder; Translations: [Benign essential hypertension] Onset: 05-17-2006 09-10-2016 Chronic Fever of unknown origin (1 source) Fever; Translations: [Fever, unspecified] 01-05-2025 Episodic Fluid and electrolyte disorders (2 sources) Hypokalemia; Translations: [Hypokalemia] 01-07-2024 Episodic Fracture of lower limb (7 sources) Closed fracture of calcaneus; Translations: [Unspecified fracture of right calcaneus, initial encounter for closed fracture] 10-12-2022 Episodic Mood disorders (20 sources) Depressive disorder; Translations: [Depression] Onset: 12-31-2011 Resolved: 07-25-2020 01-13-2017 Chronic Neoplasms of unspecified nature or uncertain behavior (20 sources) Thrombocytosis; Translations: [Thrombocythemia] Onset: 12-10-2015 Resolved: 07-25-2020 05-19-2018 Episodic Nonspecific chest pain (6 sources) Chest pain; Translations: [Chest pain, unspecified] 11-16-2022 Episodic Other aftercare (2 sources) Post-discharge follow-up; Translations: [Encounter for follow-up examination after completed treatment for conditions other than malignant neoplasm] 02-18-2023 Episodic Other connective tissue disease (8 sources) Pain in toe; Translations: [Pain in unspecified toe(s)] 11-24-2020 Episodic Other gastrointestinal disorders (8 sources) Swallowing painful; Translations: [Dysphagia, unspecified] 11-24-2020 Episodic Other gastrointestinal disorders (6 sources) History of esophagitis; Translations: [Personal history of other diseases of the digestive system] 11-16-2022 Episodic Other gastrointestinal disorders (7 sources) Dysphagia; Translations: [Dysphagia, unspecified] 12-30-2022 Episodic Other lower respiratory disease (8 sources) Dyspnea; Translations: [Shortness of breath] 05-19-2018 Episodic Other lower respiratory disease (1 source) Hypoxemia; Translations: [Hypoxia] Onset: 04-29-2023 Episodic Other lower respiratory disease (1 source) Cough; Translations: [Acute cough] 11-13-2022 Episodic Other lower respiratory disease (1 source) Cough; Translations: [Cough] 01-05-2025 Episodic Other lower respiratory disease (1 source) Hypoxia; Translations: [Hypoxemia] 07-15-2024 Episodic Other nervous system disorders (20 sources) Chronic pain; Translations: [Other chronic pain] Onset: 11-07-2015 11-07-2015 Chronic Other nutritional; endocrine; and metabolic disorders (2 sources) Obesity; Translations: [Obesity, unspecified] Onset: 01-13-2017 01-13-2017 Chronic Other nutritional; endocrine; and metabolic disorders (20 sources) Obese class I; Translations: [Obesity, unspecified] Onset: 09-29-2021 09-29-2021 Chronic Other nutritional; endocrine; and metabolic disorders (8 sources) Body mass index 30+ - obesity; Translations: [Body mass index (BMI) of 30.0 to 39.9] 05-19-2018 Chronic Other skin disorders (8 sources) Axillary hidradenitis suppurativa; Translations: [Hidradenitis suppurativa] 02-28-2021 Episodic Other upper respiratory infections (3 sources) Sore throat symptom; Translations: [Acute pharyngitis, unspecified] 07-24-2024 Episodic Phlebitis; thrombophlebitis and thromboembolism (3 sources) Deep venous thrombosis 10-20-2015 Episodic Pneumonia (except that caused by tuberculosis or sexually transmitted disease) (3 sources) Pneumonia, unspecified organism; Translations: [Bacterial pneumonia] Onset: 04-29-2023 07-24-2024 Episodic Pulmonary heart disease (8 sources) Pulmonary hypertension; Translations: [Pulmonary hypertension, unspecified] 05-19-2018 Chronic Pulmonary heart disease (20 sources) Pulmonary embolism; Translations: [Other pulmonary embolism without acute cor pulmonale] Onset: 11-07-2015 Resolved: 03-03-2017 03-22-2019 Episodic Residual codes; unclassified (7 sources) History of alcohol abuse; Translations: [Personal history of other specified conditions] 05-19-2018 Episodic Residual codes; unclassified (1 source) Personal history of other specified conditions; Translations: [History of alcohol use disorder] 10-18-2016 Episodic Screening and history of mental health and substance abuse codes (16 sources) H/O: psychiatric disorder; Translations: [Personal history of other mental and behavioral disorders] 05-19-2018 Episodic Screening or history of mental health and substance abuse (2 sources) Tobacco dependence syndrome; Translations: [Nicotine dependence, unspecified, uncomplicated] Onset: 01-13-2017 01-13-2017 Chronic Septicemia (except in labor) (16 sources) Sepsis due to urinary tract infection; Translations: [Sepsis, unspecified organism] 06-04-2019 Episodic Spondylosis; intervertebral disc disorders; other back problems (20 sources) Cervical arthritis; Translations: [Spondylosis without myelopathy or radiculopathy, cervical region] Onset: 08-31-2012 05-17-2018 Chronic Spondylosis; intervertebral disc disorders; other back problems (20 sources) Low back pain; Translations: [Bilateral low back pain without sciatica] Onset: 03-14-2007 Resolved: 09-03-2014 07-16-2015 Episodic Sprains and strains (20 sources) Lumbosacral strain; Translations: [Strain of muscle, fascia and tendon of lower back, initial encounter] Onset: 10-29-2005 Resolved: 09-03-2014 03-06-2014 Episodic Substance-related disorders (20 sources) Tobacco user; Translations: [Nicotine dependence, unspecified, uncomplicated] Onset: 01-29-2015 01-29-2015 Chronic Substance-related disorders (8 sources) Marijuana user; Translations: [Cannabis use, unspecified, uncomplicated] 05-19-2018 Episodic Urinary tract infections (20 sources) Acute pyelonephritis; Translations: [Acute pyelonephritis] 03-21-2019 Episodic Past or Other Problems Problem Classification Problem Date Documented Da te Episodic/Chronic Abdominal pain (20 sources) Abdominal pain - cause unknown; Translations: [Unspecified abdominal pain] Onset: 05-22-2024 09-09-2022 Episodic Calculus of urinary tract (20 sources) [...] [Other microscopic hematuria] Onset: 08-25-2012 08-25-2012 Episodic Noninfectious gastroenteritis (20 sources) Idiopathic colitis; [...] Onset: 02-06-2016 Resolved: 10-12-2017 10-12-2017 Chronic Other gastrointestinal disorders (1 source) Dysphagia, unspecified; Translations: [Dysphagia, unspecified] Onset: 07-25-2024 Episodic Other hematologic conditions (20 sources) ESR raised; [...] calories] Onset: 10-30-2015 Resolved: 07-25-2020 07-25-2020 Chronic Other screening for suspected conditions (not mental disorders or infectious disease) (5 sources) Patient encounter status; Translations: [Encounter for screening mammogram for malignant neoplasm of breast] Onset: 07-17-2024 Episodic Respiratory failure; insufficiency; arrest (adult) (18 sources) Acute respiratory failure; Translations: [Acute respiratory failure with hypoxia] Onset: 04-29-2023 Resolved: 07-24-2024 04-29-2023 Episodic Syncope (2 sources) Near syncope; Translations: [Syncope and collapse] Onset: 07-25-2024 07-25-2024 Episodic Unclassified (1 source) Patient encounter status 09-26-2024 Results Test Name Value Interpretation Reference Range Facility Absolute lymphocyte countOrd ered By: Kwadwo Hernandez on 01-04-2025 Lymphocytes Auto (Unsp spec) [#/Vol] 1.86 10*3/uL 0.83-4.51 [facility] Absolute neutrophil countOrd ered By: Kwadwoanson Hernandez on 01-04-2025 Neutrophils (Bld) [#/Vol] 13.6 10*3/uL High 2.0-7.7 [facility] Anion gap in Serum or Plasma Ordered By: Kwadwoanson Hernandez on 01-04-2025 Anion gap [Moles/Vol] 12 mmol/L 5-15 [facility] Automated lymphocyte count a s percentage of total leukocytesOrdered By: Weir Mary on 01-04-2025 Lymphocytes/100 WBC Auto (Unsp spec) 11.0 % Low - [facility] BUN/creatinine ratioOrdered By: [facility] on 01-04-2025 Urea nitrogen/Creatinine [Mass ratio] 11.1 mg/mg 10-20 [facility] Basophil percentageOrdered B y: Kwadwo Hernandez on 01-04-2025 Basophils/100 WBC (Bld) 0.4 % 0-1 [facility] Bilirubin Test strip Ql (U)O rdered By: [facility] on 01-04-2025 Bilirubin Ql (U) Negative Negative [facility] Bilirubin, totalOrdered By: [facility] on 01-04-2025 Bilirubin [Mass/Vol] 0.48 mg/dL 0.00-1.30 [facility] CBC W/Diff, Automatedon 12-17 Absolute Lymph 1.86 X10 3/uL Normal 0.83-4.51 [facility] Comment on above: Performed By: #### L 500.4050, L100.0100, L501.2450 #### [facility] [address] [place], [address] Absolute Neut 13.6 X10 3/uL High 2.0-7.7 [facility] Comment on above: Performed By: #### L 500.4050, L100.0100, L501.2450 #### [facility] [address] [place], [address] Basophils/100 WBC (Bld) 0.4 % Normal 0-1 [facility] Comment on above: Performed By: #### L 500.4050, L100.0100, L501.2450 #### [facility] [address] [place], [address] Eosinophils/100 WBC (Bld) 0.2 % Normal 0-5 [facility] Comment on above: Performed By: #### L 500.4050, L100.0100, [id number] #### [facility] [address] [place], [address] Erythrocyte distribution width (RBC) [Ratio] 13.8 % Normal 11.6-14.6 [facility] Comment on above: Performed By: #### L 500.4050, L100.0100, L501.2450 #### [facility] [address] [place], [address] Hematocrit (Bld) [Volume fraction] 40.0 % Normal 37-47 [facility] Comment on above: Performed By: #### L 500.4050, L100.0100, [id number] #### [facility] [address] [place], [address] Hemoglobin (Bld) [Mass/Vol] 13.0 g/dL Normal 12.0-15.0 [facility] Comment on above: Performed By: #### L 500.4050, L100.0100, L501.2450 #### [facility] [address] [place], [address] IG% 0.500 Normal 0.0-0.9 [facility] Comment on above: Result Comment: IG% - Immature Granulocytes (promyelocytes, myelocytes and metamyelocytes) > 1% indicates that a LEFT SHIFT is Present. Performed By: #### L 500.4050, L100.0100, L501.2450 #### [facility] [address] [place], [address] Lymphocytes/100 WBC (Bld) 11.0 % Low 19-41 [facility] Comment on above: Performed By: #### L 500.4050, L100.0100, L501.2450 #### [facility] [address] [place], [address] MCH (RBC) [Entitic mass] 28.4 pg Normal 27.0-32.0 [facility] Comment on above: Performed By: #### L 500.4050, L100.0100, L501.2450 #### [facility] [address] [place], [address] MCHC (RBC) [Mass/Vol] 32.5 g/dL Normal 32-36 [facility] Comment on above: Performed By: #### L 500.4050, L100.0100, L501.2450 #### [facility] [address] [place], [address] MCV (RBC) [Entitic vol] 87.3 fL Normal 81-99 [facility] Comment on above: Performed By: #### L 500.4050, L100.0100, L501.2450 #### [facility] [address] [place], [address] Monocytes/100 WBC (Bld) 7.5 % Normal 0-10 [facility] Comment on above: Performed By: #### L 500.4050, L100.0100, L501.2450 #### [facility] [address] [place], [address] Neutrophils/100 WBC (Bld) 80.4 % High 47-70 [facility] Comment on above: Performed By: #### L 500.4050, L100.0100, L501.2450 #### [facility] [address] [place], [address] Nucleated RBC (Bld) [#/Vol] 0 10*3/uL Normal 0-5 [facility] Comment on above: Performed By: #### L 500.4050, L100.0100, L501.2450 #### [facility] [address] [place], [address] Platelet mean volume (Bld) [Entitic vol] 9.2 fL Normal 6.2-12.0 [facility] Comment on above: Performed By: #### L 500.4050, L100.0100, L501.2450 #### [facility] [address] [place], [address] Platelets (Bld) [#/Vol] 478 10*3/uL High 150-450 [facility] Comment on above: Performed By: #### L 500.4050, L100.0100, L501.2450 #### [facility] [address] [place], [address] RBC (Bld) [#/Vol] 4.58 10*6/uL Normal 4.2-5.4 [facility] Comment on above: Performed By: #### L 500.4050, L100.0100, L501.2450 #### [facility] [address] [place], [address] RDW SD 44.2 fl High 35.1-43.9 [facility] Comment on above: Performed By: #### L 500.4050, L100.0100, L501.2450 #### [facility] [address] [place], [address] WBC (Bld) [#/Vol] 17.0 10*3/uL High 4.4-11.0 [facility] Comment on above: Performed By: #### L 500.4050, L100.0100, L501.2450 #### [facility] [address] [place], [address] Carbon dioxide, total [Moles /volume] in Central venous bloodOrdered By: Kwadwo Hernandez on 01-04-2025 CO2 [Moles/Vol] 25.0 mmol/L 21.0-32.0 [facility] Chest PA and Lateralon 01-04 Chest PA and Lateral [facility] [address] [place] [address] Chest PA and Lateral MR#: [id number] Acct: [id number] Name: SAVANNAH IRVIN Rep #: [id number] : 1965 F 59 From: Michelle Meng MD PCP: Dr. Ivette Welsh MD Status: REG ER Study: Chest PA and Lateral Date of Exam: 01/04/25 Exam# [id number] Ordering Dr: Kwadwo Hernandez DO PROCEDURE: CHEST PA AND LATERAL 01/04/2025 REASON FOR EXAM: SHORTNESS OF BREATH TECHNIQUE: CHEST PA AND LATERAL COMPARISON: 07/15/2024. FINDINGS: The heart is normal in size. The mediastinum is normal in contour. Hyperaerated lungs which may suggest COPD. The lungs are clear. No acute osseous abnormalities. RAD/Chest PA and Lateral IMPRESSION: NO ACUTE FINDINGS. Reading Location: [place] [address] CC: Dr. Kwadwo Hernandez DO; Dr. Ivette Welsh MD Photogrammetric Engineer: Signed Normal [facility] Chloride assayOrdered By: Ramana Hernandez on 01-04-2025 Chloride [Moles/Vol] 99 mmol/L 98-108 [facility] Comprehensive Metabolic Prof ilon 01-04-2025 Albumin [Mass/Vol] 3.9 g/dL Normal 3.5-5.0 [facility] Comment on above: Performed By: #### L 500.4050, L100.0100, L501.2450 #### [facility] [address] [place], [address] Albumin/Globulin [Mass ratio] 1.0 {ratio} Normal 0.9-2.4 [facility] Comment on above: Performed By: #### L 500.4050, L100.0100, L501.2450 #### [facility] [address] [place], [address] ALK PHOS 125 U/L High 35-104 [facility] Comment on above: Performed By: #### L 500.4050, L100.0100, L501.2450 #### [facility] [address] [place], [address] ALT [Catalytic activity/Vol] 15 U/L Normal <=34 [facility] Comment on above: Performed By: #### L 500.4050, L100.0100, L501.2450 #### [facility] [address] [place], [address] AST [Catalytic activity/Vol] 25 U/L Normal <=31 [facility] Comment on above: Performed By: #### L 500.4050, L100.0100, L501.2450 #### [facility] [address] [place], [address] Bilirubin [Mass/Vol] 0.48 mg/dL Normal 0.00-1.30 [facility] Comment on above: Performed By: #### L 500.4050, L100.0100, L501.2450 #### [facility] [address] [place], [address] BUN/CRE 11.1 RATIO Normal 10-20 [facility] Comment on above: Performed By: #### L 500.4050, L100.0100, L501.2450 #### [facility] [address] [place], [address] Calcium [Mass/Vol] 9.1 mg/dL Normal 7.6-11.0 [facility] Comment on above: Performed By: #### L 500.4050, L100.0100, L501.2450 #### [facility] [address] [place], [address] Chloride [Moles/Vol] 99 mmol/L Normal 98-108 [facility] Comment on above: Performed By: #### L 500.4050, L100.0100, L501.2450 #### [facility] [address] [place], [address] CO2 [Moles/Vol] 25.0 mmol/L Normal 21.0-32.0 [facility] Comment on above: Performed By: #### L 500.4050, L100.0100, L501.2450 #### [facility] [address] [place], [address] Creatinine [Mass/Vol] 0.72 mg/dL Normal 0.70-1.20 [facility] Comment on above: Performed By: #### L 500.4050, L100.0100, L501.2450 #### [facility] [address] [place], [address] ECRCL 89.26 ml/min Normal 50-250 [facility] Comment on above: Performed By: #### L 500.4050, L100.0100, L501.2450 #### [facility] [address] [place], [address] GAP 12 Normal 5-15 [facility] Comment on above: Performed By: #### L 500.4050, L100.0100, L501.2450 #### [facility] [address] [place], [address] GFR/1.73 sq M.predicted among non-blacks MDRD (S/P/Bld) [Vol rate/Area] 97 mL/min/{1.73_m2} Normal >60 [facility] Comment on above: Result Comment: mL/m in/1.73m2 CKD-EPI Creatinine Equation (2020) Performed By: #### L 500.4050, L100.0100, L501.2450 #### [facility] [address] [place], [address] Globulin (S) [Mass/Vol] 3.7 g/dL Normal 2.2-4.2 [facility] Comment on above: Performed By: #### L 500.4050, L100.0100, L501.2450 #### [facility] [address] [place], [address] Glucose [Mass/Vol] 102 mg/dL High 70-99 [facility] Comment on above: Performed By: #### L 500.4050, L100.0100, L501.2450 #### [facility] [address] [place], [address] Potassium [Moles/Vol] 3.8 mmol/L Normal 3.3-5.1 [facility] Comment on above: Performed By: #### L 500.4050, L100.0100, L501.2450 #### [facility] [address] [place], [address] Sodium [Moles/Vol] 136 mmol/L Normal 133-145 [facility] Comment on above: Performed By: #### L 500.4050, L100.0100, L501.2450 #### [facility] [address] [place], [address] T PROT 7.6 g/dL Normal 5.9-8.4 [facility] Comment on above: Performed By: #### L 500.4050, L100.0100, L501.2450 #### [facility] [address] [place], [address] Urea nitrogen [Mass/Vol] 8 mg/dL Normal - [facility] Comment on above: Performed By: #### L 500.4050, L100.0100, L501.2450 #### [facility] [address] [place], [address] Emergency Department Summary on 01-04-2025 Emergency Department Summary [facility] Medical Records Department [address] [place] [address] Emergency Department Summary 01/04/25 MR#: [id number] Acct: [id number] Name: SAVANNAH IRVIN Rep #: [id number] : 1965 59 From: Kwadwo Hernandez DO PCP: Dr. Ivette Welsh MD Status:DEP ER Location: ED HPI History of Present Illness Chief Complaint: Shortness of Breath Narrative Narrative: Chief complaint and HPI: General Malaise. 59-year-old female with past medical history of COPD, HTN presents for evaluation of general malaise. Patient states she felt generally unwell all day today. She states for the past several hours she has had shortness of breath, cough, chills, fever, body aches, and intermittent abdominal pain. She has not taken anything for symptoms. She denies any chest pain, constipation, diarrhea, dysuria. Review of systems: See HPI Medications: As listed on the chart Allergies: As listed on the chart PFSH: Per chart Vital signs: As listed on the chart. Reviewed. Physical exam: Gen: A Ox3, NAD Head: Normocephalic, atraumatic Eyes: No sclera icterus, conjunctiva clear, PERRL, EOMI ENT: Moist mucous membranes, posterior oropharynx unremarkable, uvula midline, tonsils not enlarged Neck: Trachea midline, No JVD, Full ROM, No meningismus CV: RRR, no murmurs, no peripheral edema Resp: Lungs CTA BL, no w/r/c GI: Abd soft, non-distended, non-tender, no r/r/g Musc: Full ROM, no deformity Skin: Warm, dry, no rash Neuro: Alert, oriented, grossly intact, sensation intact Psych: Cooperative, appropriate mood and affect [facility] Medical History Hypertension Gastroesophageal reflux disease Leukocytosis Acute pyelonephritis Substance abuse Alcohol abuse Chronic pain Kidney stones Smoker Sleep apnea Pulmonary embolism TIA (transient ischemic attack) Stroke/cerebrovascular accident COPD (chronic obstructive pulmonary disease) Asthma Home Medications ???Medication ???Instructions ???Recorded ???Last Taken ???Type albuterol sulfate 2.5 mg/3 mL 2.5 mg (3 mL) inhalation Q4H PRN 0 10/20/17 02/08/23 Rx (0.083 %) solution for nebulization #25 vials albuterol sulfate 90 mcg/actuation 1 - 2 puff inhalation PRN PRN So b 05/18/18 02/08/23 History aerosol inhaler (Ventolin HFA) /Or Wheezing epinephrine 0.3 mg/0.3 mL 0.3 mg (0.3 mL) IM X1 ##1 01/21/19 Unknown Rx injection, auto-injector dextromethorphan-guaif enesin ER 60 1 tab PO Q12H 7 days #14 tabs Unknown Rx mg-1,200 mg tab,extend release,12hr (Mucinex DM) levofloxacin 500 mg tablet 500 mg PO DAILY 5 days #5 tabs Unknown Rx nicotine 14 mg/24 hr daily 14 mg transdermal DAILY 30 days Unknown Rx transdermal patch #30 ea pantoprazole 40 mg tablet,delayed 40 mg PO BID 30 days #60 tabs Unknown Rx release (Protonix) sucralfate 1 gram tablet (Carafate) 1 g PO .TID AC 1 month #90 tabs 07/17/24 Unknown Rx albuterol sulfate 90 mcg/actuation 2 puff inhalation Q4H PRN PRN Unknown Rx aerosol inhaler (Ventolin HFA) Wheezing ##1 Allergy/AdvReac Type Severity Reaction Status Date / Time peanut Allergy Anaphylaxis Verified 01/04/25 20:54 tree nut (Tree Nut) Allergy Anaphylaxis Verified 01/04/25 20:54 Family History Mother COPD (chronic obstructive pulmonary disease) Hypertension Father Epilepsy Surgical History History of bilateral ligation of fallopian tubes History of cholecystectomy Social History household members: none Smoking Status: Current every day smoker tobacco type: cigarettes alcohol intake: former substance use type: marijuana EXAM Physical Exam Const Vital Signs: 01/04/25 20:55 01/04/25 21:30 01/04/25 21:30 Temperature 97.9 F 101 F H Temperature Source Temporal Oral Pulse Rate 130 H 70 Respiratory Rate 25 H Respiratory Effort Short of Breath Labored Respiratory Depth Normal Respiratory Pattern Normal Blood Pressure 154/102 H 130/70 H Blood Pressure Mean 119 90 Pulse Ox 92 96 Oxygen Delivery Method Room Air Room Air 01/04/25 22:00 01/04/25 22:04 01/04/25 23:00 Temperature Temperature Source Pulse Rate 112 H 119 H 107 H Respiratory Rate 16 Respiratory Effort Respiratory Depth Respiratory Pattern Normal Blood Pressure 185/71 H 123/50 H Blood Pressure Mean 109 74 Pulse Ox 96 93 Oxygen Delivery Method Room Air 01/05/25 00:00 01/05/25 00:29 Temperature 98.1 F 98.1 F Temperature Source Oral Pulse Rate 102 H 93 Respiratory Rate 16 16 Respiratory Effort (more content not included)... Normal [facility] Eosinophil percentageOrdered By: Kwadwo Hernandez on 01-04-2025 Eosinophils/100 WBC (Bld) 0.2 % 0-5 [facility] Erythrocyte distribution wid th ratioOrdered By: Kwadwo Hernandez on 01-04-2025 Erythrocyte distribution width (RBC) [Ratio] 13.8 % 11.6-14.6 [facility] Erythrocyte distribution wid th standard deviationOrdered By: Kwadwo Shirley on 01-04-2025 Erythrocyte distribution width (RBC) [Ratio] 44.2 fl High 35.1-43.9 [facility] Glomerular filtration rate ( GFR) estimation/1.73 sq m using serum, plasma, or whole bOrdered By: Kwadwo Hernandez on 01-04-2025 GFR/1.73 sq M.predicted among non-blacks MDRD (S/P/Bld) [Vol rate/Area] 97 mL/min/{1.73_m2} >60 [facility] Comment on above: mL/min/1.73m2 CKD-EP I Creatinine Equation (2020) Hematocrit Auto (Bld) [Volum e fraction]Ordered By: Kwadwo Hernandez on 01-04-2025 Hematocrit (Bld) [Volume fraction] 40.0 % 37-47 [facility] Hemoglobin measurementOrdere d By: Kwadwo Lang on 01-04-2025 Hemoglobin (Bld) [Mass/Vol] 13.0 g/dL 12.0-15.0 [facility] Immature granulocytes/100 WB C Auto (Bld)Ordered By: [facility]van[facility]eliaCasper on 01-04-2025 Immature granulocytes/100 WBC (Bld) 0.500 % 0.0-0.9 [facility] Comment on above: IG% - Immature Granu locytes (promyelocytes, myelocytes and metamyelocytes) > 1% indicates that a LEFT SHIFT is Present. Influenza virus A and B and SARS-CoV-2 (COVID-19) and Respiratory syncytial virus RNAOrdered By: Kwadwo Hernandez on 01-04-2025 SARS-CoV-2 (COVID-19) RNA SONG+probe Ql (Unsp spec) [facility] Ketones Test strip Ql (U)Ord ered By: Kwadwoanson Hernandez on 01-04-2025 Ketones Ql (U) Negative Negative [facility] - Chemistry and C hemistry - challengeOrdered By: Kwadwo Lang on 01-04-2025 AST [Catalytic activity/Vol] 25 U/L <32 [facility] Lipaseon 01-04-2025 Lipase [Catalytic activity/Vol] 25 U/L Normal 13-75 [facility] Comment on above: Result Comment: Plejacob se note: LIPASE revised reference range effective 22. New Lipase methodology. Expected to produce lower values than the previous assay method. NEW Reference Range: 13 - 75 U/L Performed By: #### L 500.4050, L100.0100, L501.2450 #### [facility] [place], [address] Lipase measurementOrdered By : Kwadwo Hernandez on 01-04-2025 Lipase [Catalytic activity/Vol] 25 U/L 13-75 [facility] Comment on above: Please note:LIPASE r evised reference range effective 22. New Lipase methodology. Expected to produce lower values than the previous assay method. NEW Reference Range: 13 - 75 U/L M100.678on 01-04-2025 M100.678 SARS-CoV-2 (COVID 19 ) Negative INFLUENZA A Negative INFLUENZA B Negative RSV PCR Negative Normal [facility] Comment on above: Performed By: #### L 500.4050, L100.0100, L501.2450 #### [facility] [address] [place], [place], [address] MCV (mean corpuscular volume ) determinationOrdered By: Kwadwo Hernandez on 01-04-2025 MCV (RBC) [Entitic vol] 87.3 fL 81-99 [facility] Mean corpuscular hemoglobin (MCH) determinationOrdered By: [facility] CenterLang on 01-04-2025 MCH (RBC) [Entitic mass] 28.4 pg 27.0-32.0 [facility] Mean corpuscular hemoglobin concentration (MCHC) determinationOrdered By: [facility] CenterLang on 01-04-2025 MCHC (RBC) [Mass/Vol] 32.5 g/dL 32-36 [facility] Mean platelet volume determi nationOrdered By: Kwadwo Hernandez on 01-04-2025 Platelet mean volume (Bld) [Entitic vol] 9.2 fL 6.2-12.0 [facility] Microscopic analysis of urin e for red blood cells (RBC)Ordered By: Kwadwo Hernandez on 01-04-2025 Microscopic analysis of urine for red blood cells (RBC) 0-5 SEEN /hpf 0-5 [facility] Monocyte percentageOrdered B y: Kwadwo Hernandez on 01-04-2025 Monocytes/100 WBC (Bld) 7.5 % 0-10 [facility] Mucus LM Ql (Urine sed)Order ed By: Kwadwo Hernandez on 01-04-2025 Mucus Ql (Urine sed) 0 SEEN /hpf [facility] Neutrophil percentageOrdered By: Kwadwo Hernandez on 01-04-2025 Neutrophils/100 WBC (Bld) 80.4 % High 47-70 [facility] Nitrite Test strip Ql (U)Ord ered By: Kwadwo Hernandez on 01-04-2025 Nitrite Ql (U) Negative Negative [facility] Nucleated red blood cell per centageOrdered By: Kwadwo Hernandez on 01-04-2025 Nucleated RBC/100 WBC (Bld) [Ratio] 0 % 0-5 [facility] Platelet countOrdered By: Ramana Hernandez on 01-04-2025 Platelets (Bld) [#/Vol] 478 10*3/uL High 150-450 [facility] Potassium measurement (mass/ volume)Ordered By: Kwadwo Hernandez on 01-04-2025 Potassium (Unsp spec) [Mass/Vol] 3.8 mmol/L 3.3-5.1 [facility] Protein Test strip Ql (U)Ord ered By: Kwadwo Hernandez on 01-04-2025 Protein Ql (U) 15 mg/dl High Negative [facility] RBC Auto (Bld) [#/Vol]Ordere d By: Kwadwo Hernandez on 01-04-2025 RBC (Bld) [#/Vol] 4.58 10*6/uL 4.2-5.4 [facility] Serum creatinine measurement (mass/volume)Ordered By: Kwadwo Hernandez on 01-04-2025 Creatinine [Mass/Vol] 0.72 mg/dL 0.70-1.20 [facility] Serum globulin measurementOr dered By: Kwadwo Hernandez on 01-04-2025 Globulin (S) [Mass/Vol] 3.7 g/dL 2.2-4.2 [facility] Serum glucose measurement (m ass/volume)Ordered By: Kwadwo Hernandez on 01-04-2025 Glucose [Mass/Vol] 102 mg/dL High 70-99 [facility] Serum or plasma alanine andrews otransferase (ALT) measurementOrdered By: Kwadwo Hernandez on 01-04-2025 ALT [Catalytic activity/Vol] 15 U/L <35 [facility] Serum or plasma albumin scarlett urement (mass/volume)Ordered By: Kwadwo Shirley on 01-04-2025 Albumin [Mass/Vol] 3.9 g/dL 3.5-5.0 [facility] Serum or plasma albumin/glob ulin mass ratioOrdered By: Kwadwo Hernandez on 01-04-2025 Albumin/Globulin [Mass ratio] 1.0 {ratio} 0.9-2.4 [facility] Serum or plasma alkaline tonya sphatase measurementOrdered By: Kwadwo Hernandez on 01-04-2025 ALP [Catalytic activity/Vol] 125 U/L High 35-104 [facility] Serum or plasma calcium scarlett urement (mass/volume)Ordered By: Kwadwo Shirley on 01-04-2025 Calcium [Mass/Vol] 9.1 mg/dL 7.6-11.0 [facility] Serum or plasma urea nitroge n measurement (mass/volume)Ordered By: Kwadwo Hernandez on 01-04-2025 Urea nitrogen [Mass/Vol] 8 mg/dL 4-19 [facility] Sodium levelOrdered By: Heath Hernandez on 01-04-2025 Sodium [Moles/Vol] 136 mmol/L 133-145 [facility] Squamous epithelial cells de tection in urine sediment by light microscopyOrdered By: Kwadwo Hernandez on 01-04-2025 Epithelial cells.squamous LM Ql (Urine sed) 0 SEEN /hpf 5-10 [facility] Total proteinOrdered By: Carlos Hernandez on 01-04-2025 Protein [Mass/Vol] 7.6 g/dL 5.9-8.4 [facility] Urinalysis, Completeon 01-04 RBC 0-5 SEEN Normal 0-5 [facility] Comment on above: Order Comment: CLEAN CATCH Performed By: #### L 500.4050, L100.0100, L501.2450 #### [facility] [address] [place], [address] BACTERIA 0 SEEN Normal None Seen [facility] Comment on above: Order Comment: CLEAN CATCH Performed By: #### L 500.4050, L100.0100, L501.2450 #### [facility] [address] [place], [address] EPI,SQUAMOUS 0 SEEN Normal 5-10 [facility] Comment on above: Order Comment: CLEAN CATCH Performed By: #### L 500.4050, L100.0100, L501.2450 #### [facility] [address] [place], [address] Mucus Ql (Urine sed) 0 SEEN Normal [facility] Comment on above: Order Comment: CLEAN CATCH Performed By: #### L 500.4050, L100.0100, L501.2450 #### [facility] [address] [place], [address] WBC 0 SEEN Normal 0-5 [facility] Comment on above: Order Comment: CLEAN CATCH Performed By: #### L 500.4050, L100.0100, L501.2450 #### [facility] [address] [place], [address] Urine clarityOrdered By: Carlos Hernandez on 01-04-2025 Clarity (U) Clear Clear [facility] Urine color determinationOrd ered By: Kwadwo Hernandez on 01-04-2025 Color (U) Yellow Yellow [facility] Urine glucose detectionOrder ed By: Kwadwo Hernandez on 01-04-2025 Glucose Ql (U) Normal mg/dl Normal [facility] Urine leukocyte esterase det ection by dipstickOrdered By: Kwadwo Hernandez on 01-04-2025 Leukocyte esterase Test strip Ql (U) Negative Negative [facility] Urine pHOrdered By: Kwadwo Mckeon Navin on 01-04-2025 pH (U) 6.0 [pH] 5.0 - 8.0 [facility] Urine sediment bacteria coun t by microscopy (number/high power field)Ordered By: Kwadwo Hernandez on 01-04-2025 Bacteria LM.HPF (Urine sed) [#/Area] 0 /[HPF] None Seen [facility] Urine specific gravity measu rementOrdered By: [facility] CentertatiannaCasper on 01-04-2025 Specific gravity (U) [Rel density] 1.010 1.002-1.030 [facility] Urine urobilinogen measureme ntOrdered By: Kwadwoanson Hernandez on 01-04-2025 Urobilinogen Ql (U) Normal mg/dl Normal [facility] White blood cell (WBC) count Ordered By: Kwadwo Hernandez on 01-04-2025 WBC (Bld) [#/Vol] 17.0 10*3/uL High 4.4-11.0 [facility] White blood cell countOrdere d By: Kwadwo Hernandez on 01-04-2025 White blood cell count 0 SEEN /hpf 0-5 [facility] CNCOon 10-23-2024 CNCO Letter Text Normal [facility] CNPNon 08-24-2024 CNPN Telephone (UCTR) SAVANNAH IRVIN ([id number]) 1965 F Date Time Provider Department 08/24/24 DAMON DOYLE [facility] During your visit today, we recorded the following information about you: Damno Doyle PA 08/24/2024 7:04 AM Signed Please [...] Encounter Status:Closed by Sergei YOUSSEF on 08/24/24 Normal [facility] CNOVon 08-23-2024 CNOV Office Visit (UCWSTR ) SAVANNAH IRVIN ([id number]) 1965 F Date Time Provider Department 08/23/24 4:15 PM RAJMARCY UCWSTR During your visit today, we recorded the following information about you: Temperature Pulse Respiration Blood pressure 98.6 degrees 95/minute 20/minute 182/102 Weight 76.8 kg Raj Marcy, NORMA.LAW OFFICE ASSISTANT 08/23/2024 5:25 PM Addendum Subjective The history is provided by the patient. No sign language interpreter was used. HPI Savannah Irvni is a 59 year old female who [...] have confirmed and edited as necessary, the [facility] Review of Systems Constitutional: Negative for chills [...] understanding of (more content not included)... Normal [facility] COVID AND INFLUENZA A/B AND RSV PCR, ROUTINEon 08-23-2024 SARS-CoV-2 (COVID-19) RNA SONG+probe Ql (Unsp spec) SARS-COV-2 (AGENT OF COVID-19) RNA: Not detected INFLUENZA A RNA: Not detected INFLUENZA B RNA: Not detected RESPIRATORY SYNCYTIAL VIRUS (RSV) RNA: Not detected Normal [facility] Comment on above: Performed By: #### C VFLRS ####[facility] LABCLIA [id number] [address] OF [place] STREP A MOLECULAR (POC)on Procedural Control Valid [facility] Strep A (POCT) Negative Negative [facility] CNOVon 07-24-2024 CNOV Office Visit (FAMPWS ) SAVANNAH IRVIN ([id number]) 1965 F Date Time Provider Department 07/24/24 [...] HPI 7 Day TCM Pt went to [facility] ER on 07/15/24 for dizziness, tired, [...] to quit smoking now. Below copied from [employer]: Chief Complaint: Dizziness Informant: patient Narrative Narrative: [...] She notes her daughter was sick over [place] and she was around her. She does [...] CK le (more content not included)... Normal [facility] Hakeem 07-21-2024 CNPN Telephone (FAMPWS) SAVANNAH IRVIN ([id number]) 1965 F Date Time Provider Department 07/21/24 IVETTE WELSH During your visit today, we recorded the following information about you: Rowan Amado, RADHA 07/21/2024 10:25 AM Signed Patient calls and is upset because the inhalers were not ordered on 07/18 like she asked. Advised patient that it looks like Dr. Welsh had sent in orders to [facility]. Called and spoke with Pharmacist at [facility]. Patient has prescription ready under a [...] Date Reviewed: 05/01/2023 Reviewed by: Tara Carr, RADHA - Fully Assessed Prescriptions as of 07/21/2024 [...] Status:Closed by ROWAN AMADO on 07/21/24 Normal [facility] Basic Metabolic Profile (BMP )on 07-17-2024 BUN/CRE 11.0 RATIO Normal - [facility] Comment on above: Performed By: #### L 501.4020, L501.3620, L501.5200 #### [facility] [address] [place], [address] CA,Total 9.2 mg/dL Normal 8.5-10.1 [facility] Comment on above: Performed By: #### L 501.4020, L501.3620, L501.5200 #### [facility] [address] [place], [address] Chloride [Moles/Vol] 105 mmol/L Normal 98-107 [facility] Comment on above: Performed By: #### L 501.4020, L501.3620, L501.5200 #### [facility] [address] [place], [address] CO2 [Moles/Vol] 26.0 mmol/L Normal 21.0-32.0 [facility] Comment on above: Performed By: #### L 501.4020, L501.3620, L501.5200 #### [facility] [address] [place], [address] Creatinine [Mass/Vol] 0.82 mg/dL Normal 0.55-1.02 [facility] Comment on above: Result Comment: The validity of the calculated GFR GFRAA in patients over 70 years has not been determined. Clinical correlation is essential. Performed By: #### L 501.4020, L501.3620, L501.5200 #### [facility] [address] [place], [address] ECRCL 75.44 ml/min Normal [facility] Comment on above: Performed By: #### L 501.4020, L501.3620, L501.5200 #### [facility] [address] [place], [address] EST GFR - AA 93 mL/min Normal >60 [facility] Comment on above: Result Comment: Afri can Guinean GFR Calc Performed By: #### L 501.4020, L501.3620, L501.5200 #### [facility] [address] [place], [address] GAP 7 Normal 5-15 [facility] Comment on above: Performed By: #### L 501.4020, L501.3620, L501.5200 #### [facility] [address] [place], [address] GFR/1.73 sq M.predicted among non-blacks MDRD (S/P/Bld) [Vol rate/Area] 77 mL/min/{1.73_m2} Normal >60 [facility] Comment on above: Result Comment: Non- GFR Calc Performed By: #### L 501.4020, L501.3620, L501.5200 #### [facility] [address] [place], [address] Glucose [Mass/Vol] 238 mg/dL High 74-106 [facility] Comment on above: Result Comment: Gluc ose result greater than or equal to 200 mg/dL suggests DIABETES MELLITUS per A.D.A. criteria. Performed By: #### L 501.4020, L501.3620, L501.5200 #### [facility] [address], [address] Potassium [Moles/Vol] 3.6 mmol/L Normal 3.5-5.1 [facility] Comment on above: Performed By: #### L 501.4020, L501.3620, L501.5200 #### [facility] [address] [place], [address] Sodium [Moles/Vol] 138 mmol/L Normal 136-145 [facility] Comment on above: Performed By: #### L 501.4020, L501.3620, L501.5200 #### [facility] [address] [place], [address] Urea nitrogen [Mass/Vol] 9 mg/dL Normal 7-18 [facility] Comment on above: Performed By: #### L 501.4020, L501.3620, L501.5200 #### [facility] [address] [place], [address] CBC W/Diff, Automatedon 12-3 PATH REV Reviewed Normal [facility] Comment on above: Result Comment: Leuk ocytosis. Clinical correlation necessary. Dakota Lyle M.D. 07/17/24 AMENDED REPORT 07/17/24 1531 PATH REV previously reported as: November Performed By: #### L 501.2450, L100.0100, L500.4050 #### [facility] [address] [place], [address] Absolute Lymph 0.50 X10 3/uL Low 0.83-4.51 [facility] Comment on above: Performed By: #### L 100.0100 #### [facility] [address] [place], [address] Absolute Neut 8.6 X10 3/uL High 2.0-7.7 [facility] Comment on above: Performed By: #### L 100.0100 #### [facility] [address] [place], [address] Basophils/100 WBC (Bld) 0.1 % Normal 0-1 [facility] Comment on above: Performed By: #### L 100.0100 #### [facility] [address] [place], [address] Eosinophils/100 WBC (Bld) 0.0 % Normal 0-5 [facility] Comment on above: Performed By: #### L 100.0100 #### [facility] [address] [place], [address] Erythrocyte distribution width (RBC) [Ratio] 13.6 % Normal 11.6-14.6 [facility] Comment on above: Performed By: #### L 100.0100 #### [facility] [address] [place], [address] Hematocrit (Bld) [Volume fraction] 41.1 % Normal 37-47 [facility] Comment on above: Performed By: #### L 100.0100 #### [facility] [address] [place], [address] Hemoglobin (Bld) [Mass/Vol] 13.4 g/dL Normal 12.0-15.0 [facility] Comment on above: Performed By: #### L 100.0100 #### [facility] [address] [place], [address] IG% 0.400 Normal 0.0-0.9 [facility] Comment on above: Result Comment: IG% - Immature Granulocytes (promyelocytes, myelocytes and metamyelocytes) > 1% indicates that a LEFT SHIFT is Present. Performed By: #### L 100.0100 #### [facility] [address] [place], [address] Lymphocytes/100 WBC (Bld) 5.3 % Low 19-41 [facility] Comment on above: Performed By: #### L 100.0100 #### [facility] [address] [place], [address] MCH (RBC) [Entitic mass] 28.9 pg Normal 27.0-32.0 [facility] Comment on above: Performed By: #### L 100.0100 #### [facility] [address] [facility] [place], [address] MCHC (RBC) [Mass/Vol] 32.6 g/dL Normal 32-36 [facility] Comment on above: Performed By: #### L 100.0100 #### [facility] [address] [place], [address] MCV (RBC) [Entitic vol] 88.8 fL Normal 81-99 [facility] Comment on above: Performed By: #### L 100.0100 #### [facility] [address] [place], [address] Monocytes/100 WBC (Bld) 3.3 % Normal 0-10 [facility] Comment on above: Performed By: #### L 100.0100 #### [facility] [address] [place], [address] Neutrophils/100 WBC (Bld) 90.9 % High 47-70 [facility] Comment on above: Performed By: #### L 100.0100 #### [facility] [address] [place], [address] Nucleated RBC (Bld) [#/Vol] 0 10*3/uL Normal 0-5 [facility] Comment on above: Performed By: #### L 100.0100 #### [facility] [address] [place], [address] Platelet mean volume (Bld) [Entitic vol] 9.5 fL Normal 6.2-12.0 [facility] Comment on above: Performed By: #### L 100.0100 #### [facility] [address] [place], [address] Platelets (Bld) [#/Vol] 429 10*3/uL Normal 150-450 [facility] Comment on above: Performed By: #### L 100.0100 #### [facility] [address] [place], [address] RBC (Bld) [#/Vol] 4.63 10*6/uL Normal 4.2-5.4 [facility] Comment on above: Performed By: #### L 100.0100 #### [facility] [address] [place], [address] RDW SD 44.2 fl High 35.1-43.9 [facility] Comment on above: Performed By: #### L 100.0100 #### [facility] [address] [place], [address] WBC (Bld) [#/Vol] 9.4 10*3/uL Normal 4.4-11.0 [facility] Comment on above: Performed By: #### L 100.0100 #### [facility] [address] [place], [address] Discharge Instructionon 06-20 Discharge Instruction [facility] Medical Records Department [address] [place] [address] Instructions for Home/Discharge Instructions 07/17/24 1210 MR#: [id number] Acct: [id number] Name: SAVANNAH IRVIN Rep #: [id number] : 1965 59 From: Jama Bustamante MD [...] Instructions Additional Instructions / Restrictions: Follow-up with [place] or outside pulmonary office 2 weeks Patient [...] DO; Dr. Ivette Welsh MD Signed Normal [facility] EGD Reporton 07-17-2024 EGD Report [facility] Medical Records Department [address] [place] [address] EGD Report MR#: [id number] Acct: [id number] Name: SAVANNAH IRVIN SRIDHAR Rep #: [id number] : 1965 59 From: Jorge L Asencio [...] stricture open Procedure Code(s): --- Professional --- 04299, Esophagogastroduodenos copy, flexible, transoral; with ablation of tumor(s), polyp(s), or other lesion(s) (includes pre- and post-dilation and guide wire passage, when performed) 43537, 59,51, Esophagogastroduodenos copy, flexible, transoral; with biopsy, single or (more content not included)... Normal [facility] MR/PN.GIon 07-17-2024 MR/PN.[facility] Medical Records Department [address] [place] [address] Progress Note - GI 07/17/24 1200 MR#: [id number] Acct: [id number] Name: SAVANNAH IRVIN SRIDHAR Rep #: [id number] : 1965 59 From: Jorge L Friend DO PCP: Dr. Ivette Welsh MD Status:ADM IN Location: [place] [address]1 Subjective Subjective The patient still having esophageal [...] 90.9 H, Lymph % (Auto) 5.3 L, [place] % (Auto) 3.3, Eos % (Auto) 0.0, [...] 3. Charges/Coding Visit Charges Inpatient E M: 17256 Subs Hosp L3 07/17/24 1201 Cosigner Signature (if applicable): CC: Signed Normal [facility] MR/POSTOP.Jensen 07-17-2024 MR/POSTOP.[facility] Medical Records Department [address] [place] [address] Anesthesia Postop Eval I 07/17/24 1242 MR#: [id number] Acct: [id number] Name: SAVANNAH IRVIN SRIDHAR Rep #: [id number] : 1965 59 From: Osvaldo Ann PCP: Dr. Ivette Welsh MD Status:ADM IN Y Race: C Location: [place] [address] Anesthesia: Postop Eval I Current Vital Signs [...] 1 completed: Yes 07/17/24 1243 Date Osvaldo Calligner Signature: Date CC: Signed Normal [facility] MR/[id number] 07-17-2024 [facility] Medical Records Department [address] [place] [address] Anesthesia Postop Eval II 07/17/24 1407 MR#: [id number] Acct: [id number] Name: SAVANNAH IRVIN SRIDHAR Rep #: [id number] : 1965 59 From: Oscar Mcpherson MD PCP: Dr. Ivette Welsh MD Status:ADM IN Y Race: C Location: [place] [address] Anesthesia Postop Eval I Sum Postop Eval [...] Oscar Pollock Signature: Date CC: Signed Normal [facility] Magnesiumon 07-17-2024 Magnesium [Mass/Vol] 2.0 mg/dL Normal 1.6-2.6 [facility] Comment on above: Performed By: #### L 501.4020, L501.3620, L501.5200 #### [facility] [address] [place], [place], [address] P53 (initial)on 07-17-2024 P53 (initial) -- ---- Patient Age/Sex Location Account Attending Physician ---- SAVANNAH IRVIN 59/F [facility] [id number] Dr. Jama Bustamante MD ---- Specimen: [id number] Received: 07/20/24-1023 Status: JOHN Rossi Num: [id number] Spec Type: IMMUNO Subm Dr: Jorge L Asencio DO PHYSICIAN INSTITUTION [place] [address] SPECIMEN INFORMATION: Tissue Source: Distal esophagus biopsy Clinical Info: Dysphagia Specimen Number: [id number] CPT code: 90877 METHODOLOGY: Deparaffinized sections of prefer/formalin-fixed tissue or [...] developed and their performance characteristics determined by [facility]. They may not have been cleared or approved by the U.S. Food and Drug Administration. The FDA has determined that such clearance or approval is not necessary. The above immunohistochemical/du alISH markers are ordered and reviewed by the Pathologist. INTERPRETATION: Distal esophagus, biopsy: Negative for dysplasia. 07/21/2024 Signed (signature on file) Dr. Dakota Lyle MD 07/21/24 1135 ---- Normal [facility] Comment on above: Performed By: #### L 500.4050, L100.0100, L501.2450 #### [facility] [address] [place] [place], [address] Phosphoruson 07-17-2024 Phosphate [Mass/Vol] 2.3 mg/dL Low 2.5-4.9 [facility] Comment on above: Performed By: #### L 501.4020, L501.3620, L501.5200 #### [facility] [address] [place], [place], [id number] ,Urineon 07-17-2024 Beta HCG ( test) Ql (U) Negative Normal [facility] Comment on above: Order Comment: Anyreena garcia has had a period within 12 mo Result Comment: Very dilute urine specimens, as indicated by a low specific gravity, may not contain retail customer service representative levels of hCG. If is still suspected, a first morning urine specimen should be collected 48 hours later and tested. Performed By: #### L [id number] #### [facility] [address] [place], [place], [address] Special Stain Group Ion 12-3 Special Stain Group I ---- ---- Patient Age/Sex Location Account Attending Physician ---- SAVANNAH IRVIN SRIDHAR 59/F U [id number] Dr. Jama Bustamante MD ---- Specimen: [id number] Received: 07/17/24 Status: JOHN Rossi Num: [id number] Spec Type: EGD BIOPSY Subm Dr: DO SARAH Chadwick OPERATION: EGD with dilation, biopsy PRE-OP DIAGNOSIS: Dysphagia TISSUE SUBMITTED: Distal esophagus biopsy ---- MICROSCOPIC DIAGNOSIS Distal esophagus, biopsy: Fragments of gastric mucosa with ulceration, acute and chronic inflammation. Focal intestinal metaplasia (goblet cell metaplasia), consistent with Paul's esophagus. Negative for dysplasia. See comment. 07/20/2024 COMMENT Alcian blue/PAS stain with matched [...] totally submitted in one cassette. 07/18/2024 TC:2 CPT:18576,03667 ---- Patient Age/Sex Location Account Attending Physician ---- SAVANNAH IRVIN 59/F [facility] [id number] Dr. Jama Bustamante MD ---- Signed (signature on file) Dr. Dakota Lyle MD 07/21/24 0847 ---- Normal [facility] Comment on above: Performed By: #### L 501.4020, L501.3620, L501.5200 #### [facility] [address] [place], [place], [id number] BNP,B-Type NATRIURETIC PEPTI Letty 07-16-2024 Natriuretic peptide B (Bld) [Mass/Vol] 120.6 pg/mL High 0-100 [facility] Comment on above: Performed By: #### L 503.6620 #### [facility] [address] [place], [address] CBC W/Diff, Automatedon 12-2 Absolute Lymph 0.63 X10 3/uL Low 0.83-4.51 [facility] Comment on above: Performed By: #### L 501.4020, L501.3620, L501.5200 #### [facility] [address] [place], [address] Absolute Neut 6.9 X10 3/uL Normal 2.0-7.7 [facility] Comment on above: Performed By: #### L 501.4020, L501.3620, L501.5200 #### [facility] [address] [place], [address] Basophils/100 WBC (Bld) 0.1 % Normal 0-1 [facility] Comment on above: Performed By: #### L 501.4020, L501.3620, L501.5200 #### [facility] [address] [place], [address] Eosinophils/100 WBC (Bld) 0.0 % Normal 0-5 [facility] Comment on above: Performed By: #### L 501.4020, L501.3620, L501.5200 #### [facility] [address] [place], [address] Erythrocyte distribution width (RBC) [Ratio] 13.8 % Normal 11.6-14.6 [facility] Comment on above: Performed By: #### L 501.4020, L501.3620, L501.5200 #### [facility] [address] [place], [address] Hematocrit (Bld) [Volume fraction] 44.5 % Normal 37-47 [facility] Comment on above: Performed By: #### L 501.4020, L501.3620, L501.5200 #### [facility] [address] [place], [address] Hemoglobin (Bld) [Mass/Vol] 13.9 g/dL Normal 12.0-15.0 [facility] Comment on above: Performed By: #### L 501.4020, L501.3620, L501.5200 #### [facility] [address] [place], [address] IG% 0.400 Normal 0.0-0.9 [facility] Comment on above: Result Comment: IG% - Immature Granulocytes (promyelocytes, myelocytes and metamyelocytes) > 1% indicates that a LEFT SHIFT is Present. Performed By: #### L 501.4020, L501.3620, L501.5200 #### [facility] [address], [address] Lymphocytes/100 WBC (Bld) 8.2 % Low 19-41 [facility] Comment on above: Performed By: #### L 501.4020, L501.3620, L501.5200 #### [facility] [address] [place], [address] MCH (RBC) [Entitic mass] 28.0 pg Normal 27.0-32.0 [facility] Comment on above: Performed By: #### L 501.4020, L501.3620, L501.5200 #### [facility] [address] [place], [address] MCHC (RBC) [Mass/Vol] 31.2 g/dL Low 32-36 [facility] Comment on above: Performed By: #### L 501.4020, L501.3620, L501.5200 #### [facility] [address] [place], [address] MCV (RBC) [Entitic vol] 89.5 fL Normal 81-99 [facility] Comment on above: Performed By: #### L 501.4020, L501.3620, L501.5200 #### [facility] [address] [place], [address] Monocytes/100 WBC (Bld) 1.3 % Normal 0-10 [facility] Comment on above: Performed By: #### L 501.4020, L501.3620, L501.5200 #### [facility] [address] [place], [address] Neutrophils/100 WBC (Bld) 90.0 % High 47-70 [facility] Comment on above: Performed By: #### L 501.4020, L501.3620, L501.5200 #### [facility] [address] [place], [address] Nucleated RBC (Bld) [#/Vol] 0 10*3/uL Normal 0-5 [facility] Comment on above: Performed By: #### L 501.4020, L501.3620, L501.5200 #### [facility] [address] [place], [address] Platelet mean volume (Bld) [Entitic vol] 9.5 fL Normal 6.2-12.0 [facility] Comment on above: Performed By: #### L 501.4020, L501.3620, L501.5200 #### [facility] [address] [place], [address] Platelets (Bld) [#/Vol] 394 10*3/uL Normal 150-450 [facility] Comment on above: Performed By: #### L 501.4020, L501.3620, L501.5200 #### [facility] [address] [place], [address] RBC (Bld) [#/Vol] 4.97 10*6/uL Normal 4.2-5.4 [facility] Comment on above: Performed By: #### L 501.4020, L501.3620, L501.5200 #### [facility] [address] [place], [address] RDW SD 45.5 fl High 35.1-43.9 [facility] Comment on above: Performed By: #### L 501.4020, L501.3620, L501.5200 #### [facility] [address] [place], [address] WBC (Bld) [#/Vol] 7.6 10*3/uL Normal 4.4-11.0 [facility] Comment on above: Performed By: #### L 501.4020, L501.3620, L501.5200 #### [facility] [address] [place], [address] Comprehensive Metabolic Prof [facility] 07-16-2024 Albumin [Mass/Vol] 2.8 g/dL Low 3.2-5.0 [facility] Comment on above: Performed By: #### L 501.4020, L501.3620, L501.5200 #### [facility] [address] [place], [address] Albumin/Globulin [Mass ratio] 0.6 {ratio} Low 0.9-2.4 [facility] Comment on above: Performed By: #### L 501.4020, L501.3620, L501.5200 #### [facility] [address] [place], [address] ALK P 103 U/L Normal 45-117 [facility] Comment on above: Performed By: #### L 501.4020, L501.3620, L501.5200 #### [facility] [address] [place], [address] ALT [Catalytic activity/Vol] 15 U/L Normal 13-56 [facility] Comment on above: Performed By: #### L 501.4020, L501.3620, L501.5200 #### [facility] [address] [place], [address] AST [Catalytic activity/Vol] 14 U/L Low 15-37 [facility] Comment on above: Performed By: #### L 501.4020, L501.3620, L501.5200 #### [facility] [address] [place], [address] Bilirubin [Mass/Vol] 0.30 mg/dL Normal 0.20-1.00 [facility] Comment on above: Result Comment: For patients on eltrombopag therapy, use of Dimension [place] TBIL is not recommended. Performed By: #### L 501.4020, L501.3620, L501.5200 #### [facility] [address] [place], [address] BUN/CRE 13.0 RATIO Normal 10-20 [facility] Comment on above: Performed By: #### L 501.4020, L501.3620, L501.5200 #### [facility] [address] [place], [address] CA,Total 8.5 mg/dL Normal 8.5-10.1 [facility] Comment on above: Performed By: #### L 501.4020, L501.3620, L501.5200 #### [facility] [address] [place], [address] Chloride [Moles/Vol] 104 mmol/L Normal 98-107 [facility] Comment on above: Performed By: #### L 501.4020, L501.3620, L501.5200 #### [facility] [address] [place], [address] CO2 [Moles/Vol] 27.0 mmol/L Normal 21.0-32.0 [facility] Comment on above: Performed By: #### L 501.4020, L501.3620, L501.5200 #### [facility] [address] [place], [address] Creatinine [Mass/Vol] 0.77 mg/dL Normal 0.55-1.02 [facility] Comment on above: Result Comment: The validity of the calculated GFR GFRAA in patients over 70 years has not been determined. Clinical correlation is essential. Performed By: #### L 501.4020, L501.3620, L501.5200 #### [facility] [address] [place], [address] ECRCL 78.32 ml/min Normal [facility] Comment on above: Performed By: #### L 501.4020, L501.3620, L501.5200 #### [facility] [address] [place], [address] EST GFR - AA 99 mL/min Normal >60 [facility] Comment on above: Result Comment: Afri can Guinean GFR Calc Performed By: #### L 501.4020, L501.3620, L501.5200 #### [facility] [address] [place], [address] GAP 6 Normal 5-15 [facility] Comment on above: Performed By: #### L 501.4020, L501.3620, L501.5200 #### [facility] [address] [place], [address] GFR/1.73 sq M.predicted among non-blacks MDRD (S/P/Bld) [Vol rate/Area] 82 mL/min/{1.73_m2} Normal >60 [facility] Comment on above: Result Comment: Non- GFR Calc Performed By: #### L 501.4020, L501.3620, L501.5200 #### [facility] [address] [place], [address] Globulin (S) [Mass/Vol] 4.4 g/dL High 2.2-4.2 [facility] Comment on above: Performed By: #### L 501.4020, L501.3620, L501.5200 #### [facility] [address] [place], [address] Glucose [Mass/Vol] 171 mg/dL High 74-106 [facility] Comment on above: Result Comment: Fast ing Glucose result greater than or equal to 126 mg/dL suggests DIABETES MELLITUS per A.D.A. criteria. Performed By: #### L 501.4020, L501.3620, L501.5200 #### [facility] [address] [place], [address] Potassium [Moles/Vol] 4.2 mmol/L Normal 3.5-5.1 [facility] Comment on above: Performed By: #### L 501.4020, L501.3620, L501.5200 #### [facility] [address] [place], [address] Sodium [Moles/Vol] 137 mmol/L Normal 136-145 [facility] Comment on above: Performed By: #### L 501.4020, L501.3620, L501.5200 #### [facility] [address] [place], [address] T PROT 7.2 g/dL Normal 6.4-8.2 [facility] Comment on above: Performed By: #### L 501.4020, L501.3620, L501.5200 #### [facility] [address] [place], [address] Urea nitrogen [Mass/Vol] 10 mg/dL Normal 7-18 [facility] Comment on above: Performed By: #### L 501.4020, L501.3620, L501.5200 #### [facility] [address] [place], [address] Echo Completeon 07-16-2024 Echo Complete [facility] [address] [place] [address] Echo Complete 07/17/24 1444 MR#: [id number] Acct: [id number] Name: SAVANNAH IRVIN Rep #: [id number] : 1965 59 From: Carl Richmond MD Attending Dr: Dr. Jama Bustamante MD Status: ADM IN Ordering Dr: Albert Hartmann DO Date: 07/16/24 Location: [facility] Sex: F C Admitted: 07/15/24 Reason [...] Physician: MD Ivette Welsh Performed By: Lisa Pirce RCS 07/17/24 1641 Date Carl Richmond MD CC: Dr. Albert Hartmann DO; Dr. Ivette Welsh MD; Dr. Jama Bustamante MD Date Dictated: 07/17/24 1444 Date Transcribed: 07/17/241640 Photogrammetric Engineer: Signed [facility] Legionella Antigen Urineon 1 09-16-2023 LEGU URINE, CLEAN CATCH Legionella Antigen result interpretation: L pneumo Ag Ur Ql Negative Presumptive negative for Legionella pneumophila serogroup 1 antigen in urine, suggesting no recent or current infection. Legionella Ag, Urine Negative (See interpretation below) [facility] Comment on above: Performed By: #### L 500.4050, L100.0100, L501.2450 #### [facility] [address] [facility] [place], [address] MR/CON.PCM.on 07-16-2024 MR/CON.PCM.[facility] Medical Records Department [address] [place] [address] Consultation - 07/16/24 1152 MR#: [id number] Acct: [id number] Name: SAVANNAH IRVIN Rep #: [id number] : 1965 59 From: Jorge L Asencio DO PCP: Dr. Ivette Welsh MD Status:ADM IN [facility] ADDENDUM by Jorge L Asencio DO on 07/17/24 at 1156 Visit Charges Inpatient E M: 42984 Init Hosp L3 07/17/24 1156 Cosigner Signature [...] She notes her daughter was sick over [place] and she was around her. She does report a mild headache. No fevers reported. I was asked to see the patient due to Suspected esophageal stenosis with patient having severe dysphagia feeling food getting stuck fpc down her esophagus and forcing herself to vomit. She says that this has been going on for quite some time. She has most problems with solids and not liquids. [facility]LY [facility], [facility] Medical History Hypertension Gastroesophageal reflux disease Leukocytosis [...] denies polyu (more content not included)... Normal [facility] Magnesiumon 07-16-2024 Magnesium [Mass/Vol] 2.2 mg/dL Normal 1.6-2.6 [facility] Comment on above: Performed By: #### L 501.4020, L501.3620, L501.5200 #### [facility] [address] [place], [address] Phosphoruson 07-16-2024 Phosphate [Mass/Vol] 2.5 mg/dL Normal 2.5-4.9 [facility] Comment on above: Performed By: #### L 501.4020, L501.3620, L501.5200 #### [facility] [address] [place], [address] Strep pneumoniae Antig(UR,CS F)on 07-16-2024 STPAG Negative Urine Presumptive negative for pneumococcal pneumonia, suggesting no current or recent pneumococcal infection. Infection due to S pneumoniae cannot be ruled out since the antigen present in the sample may be below the detection limit of the test. Strep pneumo Test Negative URINE (See interpretation below) Normal [facility] Comment on above: Performed By: #### L 501.4020, L501.3620, L501.5200 #### [facility] [address] [place], [address] Thyroid Stim Hormone (TSH)on 07-16-2024 TSH 0.444 uIU/mL Normal 0.358-3.740 [facility] Comment on above: Performed By: #### L 501.4020, L501.3620, L501.5200 #### [facility] [address] [place], [address] 12 Lead EKGon 07-15-2024 12 Lead EKG [facility] Cardiovascular Services [address] [place] [address] 12 Lead EKG 07/15/24 1607 MR#: [id number] Acct: [id number] Name: SAVANNAH IRVIN SRIDHAR Rep #: [id number] : 1965 59 From: Carl Richmond MD Attending Dr: Dr. Jama Bustamante MD Status: ADM IN Ordering Dr: Queenie Herrera DO Date: 07/15/24 Location: [facility] Sex: F C Admitted: 07/15/24 Test [...] Abnormal ECG Confirmed by CARL RICHMOND MD ([id number]), newspaper or periodical editor JACEY MARK ([id number]) on 07/17/2024 8:40:49 AM Referred By: Confirmed By: CARL RICHMOND MD 07/17/24 0840 Date Carl Richmond MD CC: Dr. Queenie Herrera DO; Dr. Ivette Welsh MD; Dr. Jama Bustamante MD Signed Normal [facility] Abdomen/Pelvis W IV Cont ONL Yon 07-15-2024 Abdomen/Pelvis W IV Cont ONLY [facility] Imaging Services [address] [place] [address] Abdomen/Pelvis W IV Cont ONLY MR#: [id number] Acct: [id number] Name: SAVANNAH IRVIN SRIDHAR Rep #: [id number] : 1965 F 59 From: Javon cheung MD PCP: Dr. Ivette Welsh MD Status: REG ER Study: Abdomen/Pelvis W IV Cont ONLY Date of Exam: Exam# [id number] Ordering Dr: Queenie Herrera DO [id number] STUDY: CT ABDOMEN AND PELVIS WITH CONTRAST [...] 21:03 EST Reading Location ID and State: [facility] / [place] , Service support , CC: Dr. Queenie Herrera DO; Dr. Ivette Welsh MD Photogrammetric Engineer: Signed Normal [facility] CPK Total, Creatine Kinaseon 07-15-2024 CPK TOTAL 44 U/L Normal 26-192 [facility] Comment on above: Order Comment: 'TROP ' Serial specimen #1, #2 or #3: 1 Performed By: #### L 501.4020, L501.3620, L501.5200 #### [facility] Laboratory [address] [facility] [place], [place], [address] CTA Chest W/WO Contraston CTA Chest W/WO Contrast [facility] Imaging Services [address] [place], [place] [address] CTA Chest W/WO Contrast MR#: [id number] Acct: [id number] Name: SAVANNAH IRVIN SRIDHAR Rep #: [id number] : 1965 F 59 From: Javon cheung MD PCP: Dr. Ivette Welsh MD Status: REG ER Study: CTA Chest W/WO Contrast Date of Exam: 07/15/24 Exam# [id number] Ordering Dr: Queenie Herrera DO [id number] STUDY: CTA CHEST REASON FOR EXAM: Female, [...] or spiculated lesions on the current study. Halliday-shaped groundglass edema with crowding of the bronchovascular [...] unremarkable. CT/CTA Chest W/WO Contrast IMPRESSION: 1. Halliday-shaped groundglass edema with crowding of the bronchovascular [...] Signed: Javon Neumann MD at 20:17 EST Reading Location ID and State: [address] [place] [address] , Service support , CC: Dr. Queenie Herrera DO; Dr. Ivette Welsh MD Photogrammetric Engineer: Signed Normal [facility] Chest PA and Lateralon 07-15 Chest PA and Lateral [facility] Imaging Services [address] [place] [address] [id number] Chest PA and Lateral MR#: [id number] Acct: [id number] Name: SAVANNAH IRVIN Rep #: [id number] : 1965 F 59 From: Javon cheung MD PCP: Dr. Ivette Welsh MD Status: REG ER Study: Chest PA and Lateral Date of Exam: 07/15/24 Exam# [id number] Ordering Dr: Queenie Herrera DO [id number] STUDY: X-RAY CHEST REASON FOR EXAM: Female, [...] 18:00 EST Reading Location ID and State: [facility] / [place] , Service support , CC: Dr. Queenie Herrera DO; Dr. Ivette Welsh MD Photogrammetric Engineer: Signed Normal [facility] Comprehensive Metabolic Prof waon 07-15-2024 Albumin [Mass/Vol] 3.1 g/dL Low 3.2-5.0 [facility] Comment on above: Performed By: #### L 501.4020, L501.3620, L501.5200 #### [facility] [address] [place], [address] Albumin/Globulin [Mass ratio] 0.8 {ratio} Low 0.9-2.4 [facility] Comment on above: Performed By: #### L 501.4020, L501.3620, L501.5200 #### [facility] [address] [place], [address] ALK P 101 U/L Normal 45-117 [facility] Comment on above: Performed By: #### L 501.4020, L501.3620, L501.5200 #### [facility] [address] [place], [address] ALT [Catalytic activity/Vol] 15 U/L Normal 13-56 [facility] Comment on above: Performed By: #### L 501.4020, L501.3620, L501.5200 #### [facility] [address] [place], [address] AST [Catalytic activity/Vol] 16 U/L Normal 15-37 [facility] Comment on above: Performed By: #### L 501.4020, L501.3620, L501.5200 #### [facility] [address] [place], [address] Bilirubin [Mass/Vol] 0.40 mg/dL Normal 0.20-1.00 [facility] Comment on above: Result Comment: For patients on eltrombopag therapy, use of Dimension [place] TBIL is not recommended. Performed By: #### L 501.4020, L501.3620, L501.5200 #### [facility] [address] [place], [address] BUN/CRE 10.9 RATIO Normal 10-20 [facility] Comment on above: Performed By: #### L 501.4020, L501.3620, L501.5200 #### [facility] [address] [place], [address] CA,Total 8.6 mg/dL Normal 8.5-10.1 [facility] Comment on above: Performed By: #### L 501.4020, L501.3620, L501.5200 #### [facility] [address] [place], [address] Chloride [Moles/Vol] 99 mmol/L Normal 98-107 [facility] Comment on above: Performed By: #### L 501.4020, L501.3620, L501.5200 #### [facility] [address] [place], [address] CO2 [Moles/Vol] 28.0 mmol/L Normal 21.0-32.0 [facility] Comment on above: Performed By: #### L 501.4020, L501.3620, L501.5200 #### [facility] [address] [place], [address] Creatinine [Mass/Vol] 0.82 mg/dL Normal 0.55-1.02 [facility] Comment on above: Result Comment: The validity of the calculated GFR GFRAA in patients over 70 years has not been determined. Clinical correlation is essential. Performed By: #### L 501.4020, L501.3620, L501.5200 #### [facility] [address] [place], [address] ECRCL 74.21 ml/min Normal [facility] Comment on above: Performed By: #### L 501.4020, L501.3620, L501.5200 #### [facility] [address] [place], [address] EST GFR - AA 92 mL/min Normal >60 [facility] Comment on above: Result Comment: Afri can Guinean GFR Calc Performed By: #### L 501.4020, L501.3620, L501.5200 #### [facility] [address] [place], [address] GAP 8 Normal 5-15 [facility] Comment on above: Performed By: #### L 501.4020, L501.3620, L501.5200 #### [facility] [address] [place], [address] GFR/1.73 sq M.predicted among non-blacks MDRD (S/P/Bld) [Vol rate/Area] 76 mL/min/{1.73_m2} Normal >60 [facility] Comment on above: Result Comment: Non- GFR Calc Performed By: #### L 501.4020, L501.3620, L501.5200 #### [facility] [address] [place], [address] Globulin (S) [Mass/Vol] 4.1 g/dL Normal 2.2-4.2 [facility] Comment on above: Performed By: #### L 501.4020, L501.3620, L501.5200 #### [facility] [address] [place], [address] Glucose [Mass/Vol] 112 mg/dL High 74-106 [facility] Comment on above: Result Comment: Fast ing Glucose result from 100 to 125 mg/dL suggests IMPAIRED HOMEOSTASIS per A.D.A. criteria. Performed By: #### L 501.4020, L501.3620, L501.5200 #### [facility] [address] [place], [address] Potassium [Moles/Vol] 3.2 mmol/L Low 3.5-5.1 [facility] Comment on above: Performed By: #### L 501.4020, L501.3620, L501.5200 #### [facility] [address] [place], [address] Sodium [Moles/Vol] 135 mmol/L Low 136-145 [facility] Comment on above: Performed By: #### L 501.4020, L501.3620, L501.5200 #### [facility] [address] [place], [address] T PROT 7.2 g/dL Normal 6.4-8.2 [facility] Comment on above: Performed By: #### L 501.4020, L501.3620, L501.5200 #### [facility] [address] [place], [address] Urea nitrogen [Mass/Vol] 9 mg/dL Normal 7-18 [facility] Comment on above: Performed By: #### L 501.4020, L501.3620, L501.5200 #### [facility] [address] [place], [address] Emergency Department Summary on 07-15-2024 Emergency Department Summary [facility] Medical Records Department [address] [place] [address] Emergency Department Summary 07/15/24 MR#: [id number] Acct: [id number] Name: SAVANNAH IRVIN Rep #: [id number] : 1965 59 From: Queenie Herrera DO [...] She notes her daughter was sick over [place] and she was around her. She does report a mild headache. No fevers reported. Does not take anything for symptoms prior to arrival. Does take a daily inhaler but no other medications. No other complaints or concerns reported at this time. [facility] Medical History Hypertension Gastroesophageal reflux disease [...] Oxygen Delive (more content not included)... Normal [facility] H AND P Exam - Hospitaliston 07-15-2024 H&P Exam - Hospitalist [facility] Medical Records Department [address] [place] [address] H P Exam - Hospitalist 07/15/24 2303 MR#: [id number] Acct: [id number] Name: SAVANNAH IRVIN SRIDHAR Rep #: [id number] : 1965 59 From: Albert Hartmann DO PCP: Dr. Ivette Welsh MD Status:ADM IN Location: [place] [address] HPI - General General Date of Admission: [...] hydrocodone every 6 hours who presents to [facility] ER complaining of shortness of breath, wheezing [...] is expected to extend beyond 2 midnights. [facility], 1928–1983 Medical History Hypertension Gastroesophageal reflux disease Leukocytosis [...] History (Review (more content not included)... Normal [facility] L501.4020on 07-15-2024 TROPONIN-I HS 15 pg/mL Normal 3.0-54.0 [facility] Comment on above: Order Comment: 'TROP ' Serial specimen #1, #2 or #3: 1 Result Comment: Plea se Note: New Test Units and Gender Specific Reference Ranges. For more information see Policy Stat Procedure [place] High Sensitivity Troponin (TNIH) and attachments. Performed By: #### L 501.4020, L501.3620, L501.5200 #### [facility] [address] [place], [address] Lipaseon 07-15-2024 Lipase [Catalytic activity/Vol] 22 U/L Normal 13-75 [facility] Comment on above: Result Comment: Plea se note: LIPASE revised reference range effective 22. New Lipase methodology. Expected to produce lower values than the previous assay method. NEW Reference Range: 13 - 75 U/L Performed By: #### L 501.4020, L501.3620, L501.5200 #### [facility] [address] [place], [address] M100.678on 07-15-2024 M100.678 Pending SARS-CoV-2 (COVID 19) Negative INFLUENZA A Negative INFLUENZA B Negative RSV PCR Negative Normal [facility] Comment on above: Performed By: #### L 500.4050, L100.0100, L501.2450 #### [facility] [address] [place], [address] Magnesiumon 07-15-2024 Magnesium [Mass/Vol] 1.8 mg/dL Normal 1.6-2.6 [facility] Comment on above: Order Comment: 'TROP ' Serial specimen #1, #2 or #3: 1 Performed By: #### L 501.4020, L501.3620, L501.5200 #### [facility] [address] [place], [address] Urinalysis, Completeon 07-15 CAST,HYALINE 0-5 SEEN Normal 0-5 [facility] Comment on above: Order Comment: CLEAN CATCH Performed By: #### L 500.4050, L100.0100, L501.2450 #### [facility] [address] [place], [address] RBC 0-5 SEEN Normal 0-5 [facility] Comment on above: Order Comment: CLEAN CATCH Performed By: #### L 500.4050, L100.0100, L501.2450 #### [facility] [address] [place], [address] WBC 0-5 SEEN Normal 0-5 [facility] Comment on above: Order Comment: CLEAN CATCH Performed By: #### L 500.4050, L100.0100, L501.2450 #### [facility] [address] [place], [address] BACTERIA 1+ /hpf Normal None Seen [facility] Comment on above: Order Comment: CLEAN CATCH Performed By: #### L 500.4050, L100.0100, L501.2450 #### [facility] [address] [place], [address] EPI,SQUAMOUS 0-5 SEEN Normal 5-10 [facility] Comment on above: Order Comment: CLEAN CATCH Performed By: #### L 500.4050, L100.0100, L501.2450 #### [facility] [address] [place], [address] Mucus Ql (Urine sed) 0 SEEN Normal [facility] Comment on above: Order Comment: CLEAN CATCH Performed By: #### L 500.4050, L100.0100, L501.2450 #### [facility] [address] [place], [address] Urine Cultureon 04-30-2024 URC Escherichia coli Jean Count >100,000 Escherichia coli: REACTION Ampicillin Islt [...] TMP SMX Islt SYLVESTER <=20 S Normal [facility] Comment on above: Performed By: #### L 500.4050, L100.0100, L501.2450 #### [facility] [address] [place], [address] Basic Metabolic Profile (BMP )on 04-28-2024 BUN/CRE 20.5 RATIO High 10- [facility] Comment on above: Performed By: #### L 501.4020, L501.3620, L501.5200 #### [facility] [address] [place], [address] CA,Total 9.3 mg/dL Normal 8.5-10.1 [facility] Comment on above: Performed By: #### L 501.4020, L501.3620, L501.5200 #### [facility] [address] [place], [address] Chloride [Moles/Vol] 98 mmol/L Normal 98-107 [facility] Comment on above: Performed By: #### L 501.4020, L501.3620, L501.5200 #### [facility] [address] [place], [address] CO2 [Moles/Vol] 30.0 mmol/L Normal 21.0-32.0 [facility] Comment on above: Performed By: #### L 501.4020, L501.3620, L501.5200 #### [facility] [address] [place], [address] Creatinine [Mass/Vol] 0.88 mg/dL Normal 0.55-1.02 [facility] Comment on above: Result Comment: The validity of the calculated GFR GFRAA in patients over 70 years has not been determined. Clinical correlation is essential. Performed By: #### L 501.4020, L501.3620, L501.5200 #### [facility] [address] [place], [address] ECRCL 69.59 ml/min Normal [facility] Comment on above: Performed By: #### L 501.4020, L501.3620, L501.5200 #### [facility] [address] [place], [address] EST GFR - AA 85 mL/min Normal >60 [facility] Comment on above: Result Comment: Afri can Guinean GFR Calc Performed By: #### L 501.4020, L501.3620, L501.5200 #### [facility] [address] [place], [address] GAP 7 Normal 5-15 [facility] Comment on above: Performed By: #### L 501.4020, L501.3620, L501.5200 #### [facility] [address] [place], [address] GFR/1.73 sq M.predicted among non-blacks MDRD (S/P/Bld) [Vol rate/Area] 71 mL/min/{1.73_m2} Normal >60 [facility] Comment on above: Result Comment: Non- GFR Calc Performed By: #### L 501.4020, L501.3620, L501.5200 #### [facility] [address] [place], [address] Glucose [Mass/Vol] 107 mg/dL High 74-106 [facility] Comment on above: Result Comment: Fast ing Glucose result from 100 to 125 mg/dL suggests IMPAIRED HOMEOSTASIS per A.D.A. criteria. Performed By: #### L 501.4020, L501.3620, L501.5200 #### [facility] [address] [place], [address] Potassium [Moles/Vol] 3.2 mmol/L Low 3.5-5.1 [facility] Comment on above: Performed By: #### L 501.4020, L501.3620, L501.5200 #### [facility] [address] [place], [address] Sodium [Moles/Vol] 135 mmol/L Low 136-145 [facility] Comment on above: Performed By: #### L 501.4020, L501.3620, L501.5200 #### [facility] [address] [place], [address] Urea nitrogen [Mass/Vol] 18 mg/dL Normal 7-18 [facility] Comment on above: Performed By: #### L 501.4020, L501.3620, L501.5200 #### [facility] [address] [place], [address] CBC W/Diff, Automatedon 10- Absolute Lymph 2.04 X10 3/uL Normal 0.83-4.51 [facility] Comment on above: Performed By: #### L 501.4020, L501.3620, L501.5200 #### [facility] [address] [place], [address] Absolute Neut 5.8 X10 3/uL Normal 2.0-7.7 [facility] Comment on above: Performed By: #### L 501.4020, L501.3620, L501.5200 #### [facility] [address] [place], [address] Basophils/100 WBC (Bld) 0.6 % Normal 0-1 [facility] Comment on above: Performed By: #### L 501.4020, L501.3620, L501.5200 #### [facility] [address] [place], [address] Eosinophils/100 WBC (Bld) 1.1 % Normal 0-5 [facility] Comment on above: Performed By: #### L 501.4020, L501.3620, L501.5200 #### [facility] [address] [place], [address] Erythrocyte distribution width (RBC) [Ratio] 13.6 % Normal 11.6-14.6 [facility] Comment on above: Performed By: #### L 501.4020, L501.3620, L501.5200 #### [facility] [address] [place], [address] Hematocrit (Bld) [Volume fraction] 46.3 % Normal 37-47 [facility] Comment on above: Performed By: #### L 501.4020, L501.3620, L501.5200 #### [facility] [address] [place], [address] Hemoglobin (Bld) [Mass/Vol] 14.7 g/dL Normal 12.0-15.0 [facility] Comment on above: Performed By: #### L 501.4020, L501.3620, L501.5200 #### [facility] [address] [place], [address] IG% 0.300 Normal 0.0-0.9 [facility] Comment on above: Result Comment: IG% - Immature Granulocytes (promyelocytes, myelocytes and metamyelocytes) > 1% indicates that a LEFT SHIFT is Present. Performed By: #### L 501.4020, L501.3620, L501.5200 #### [facility] [address] [place], [address] Lymphocytes/100 WBC (Bld) 22.8 % Normal 19-41 [facility] Comment on above: Performed By: #### L 501.4020, L501.3620, L501.5200 #### [facility] [address] [place], [address] MCH (RBC) [Entitic mass] 28.1 pg Normal 27.0-32.0 [facility] Comment on above: Performed By: #### L 501.4020, L501.3620, L501.5200 #### [facility] [address] [place], [address] MCHC (RBC) [Mass/Vol] 31.7 g/dL Low 32-36 [facility] Comment on above: Performed By: #### L 501.4020, L501.3620, L501.5200 #### [facility] [address] [place], [address] MCV (RBC) [Entitic vol] 88.4 fL Normal 81-99 [facility] Comment on above: Performed By: #### L 501.4020, L501.3620, L501.5200 #### [facility] [address] [place], [address] Monocytes/100 WBC (Bld) 10.7 % High 0-10 [facility] Comment on above: Performed By: #### L 501.4020, L501.3620, L501.5200 #### [facility] [address] [place], [address] Neutrophils/100 WBC (Bld) 64.5 % Normal 47-70 [facility] Comment on above: Performed By: #### L 501.4020, L501.3620, L501.5200 #### [facility] [address] [place], [address] Nucleated RBC (Bld) [#/Vol] 0 10*3/uL Normal 0-5 [facility] Comment on above: Performed By: #### L 501.4020, L501.3620, L501.5200 #### [facility] [address] [place], [address] Platelet mean volume (Bld) [Entitic vol] 9.6 fL Normal 6.2-12.0 [facility] Comment on above: Performed By: #### L 501.4020, L501.3620, L501.5200 #### [facility] [address] [place], [address] Platelets (Bld) [#/Vol] 380 10*3/uL Normal 150-450 [facility] Comment on above: Performed By: #### L 501.4020, L501.3620, L501.5200 #### [facility] [address] [place], [address] RBC (Bld) [#/Vol] 5.24 10*6/uL Normal 4.2-5.4 [facility] Comment on above: Performed By: #### L 501.4020, L501.3620, L501.5200 #### [facility] [address] [place], [address] RDW SD 44.0 fl High 35.1-43.9 [facility] Comment on above: Performed By: #### L 501.4020, L501.3620, L501.5200 #### [facility] [address] [place], [address] WBC (Bld) [#/Vol] 9.0 10*3/uL Normal 4.4-11.0 [facility] Comment on above: Performed By: #### L 501.4020, L501.3620, L501.5200 #### [facility] [address] [place], [address] Emergency Department Summary on 04-28-2024 Emergency Department Summary [facility] Medical Records Department [address] [facility] [place] [address] Emergency Department Summary 04/28/24 MR#: [id number] Acct: [id number] Name: SAVANNAH IRVIN Rep #: [id number] : 1965 58 From: Tereso Bajwa MD [...] respiratory e (more content not included)... Normal [facility] Urinalysis, Completeon 04-28 EPI,RENAL 0-5 SEEN Normal 0-5 [facility] Comment on above: Order Comment: 'TROP ' Serial specimen #1, #2 or #3: 1 Performed By: #### L 501.4020, L501.3620, L501.5200 #### [facility] [address] [place], [address] BACTERIA 4+ /hpf Normal None Seen [facility] Comment on above: Order Comment: 'TROP ' Serial specimen #1, #2 or #3: 1 Performed By: #### L 501.4020, L501.3620, L501.5200 #### [facility] [address] [place], [address] EPI,SQUAMOUS 0-5 SEEN Normal 5-10 [facility] Comment on above: Order Comment: 'TROP ' Serial specimen #1, #2 or #3: 1 Performed By: #### L 501.4020, L501.3620, L501.5200 #### [facility] [address] [place], [address] RBC 5-10 SEEN Normal 0-5 [facility] Comment on above: Order Comment: 'TROP ' Serial specimen #1, #2 or #3: 1 Performed By: #### L 501.4020, L501.3620, L501.5200 #### [facility] [address] [place], [address] WBC 25-50 SEEN Normal 0-5 [facility] Comment on above: Order Comment: 'TROP ' Serial specimen #1, #2 or #3: 1 Performed By: #### L 501.4020, L501.3620, L501.5200 #### [facility] [address] [place], [address] Mucus Ql (Urine sed) 0 SEEN Normal [facility] Comment on above: Order Comment: 'TROP ' Serial specimen #1, #2 or #3: 1 Performed By: #### L 501.4020, L501.3620, L501.5200 #### [facility] [address] [place], [address] Absolute lymphocyte countOrd ered By: Alexandru Holden on 06-05-2023 Lymphocytes Auto (Unsp spec) [#/Vol] 0.93 10*3/uL 0.83-4.51 [facility] Basophil percentageOrdered B y: Alexandru Holden on 06-05-2023 Basophils/100 WBC (Bld) 0.1 % 0-1 [facility] Chloride [Moles/Vol] 106 mmol/L 98-107 [facility] Eosinophils/100 WBC (Bld) 0.0 % 0-5 [facility] Glucose [Mass/Vol] 223 mg/dL 74-106 [facility] Comment on above: Glucose result great er than or equal to 200 mg/dLsuggests DIABETES MELLITUS per A.D.A. criteria. Neutrophils (Bld) [#/Vol] 7.9 10*3/uL 2.0-7.7 [facility] Neutrophils/100 WBC (Bld) 88.4 % 47-70 [facility] Potassium [Moles/Vol] 3.4 mmol/L 3.5-5.1 [facility] Sodium [Moles/Vol] 138 mmol/L 136-145 [facility] WBC (Bld) [#/Vol] 8.9 10*3/uL 4.4-11.0 [facility] Blood erythrocytes count (nu mber/volume)Ordered By: Alexandru Holden on 06-05-2023 RBC (Bld) [#/Vol] 4.85 10*6/uL 4.2-5.4 [facility] Blood hemoglobin measurement (mass/volume)Ordered By: Alexandru Holden on 06-05-2023 Hemoglobin (Bld) [Mass/Vol] 13.5 g/dL 12.0-15.0 [facility] Blood lymphocytes/100 leukoc ytesOrdered By: Alexandru Holden on 06-05-2023 Lymphocytes/100 WBC (Bld) 10.5 % 19-41 [facility] Blood monocytes/100 leukocyt esOrdered By: Alexandru Holden on 06-05-2023 Monocytes/100 WBC (Bld) 0.5 % 0-10 [facility] Blood platelet mean volumeOr dered By: Alexandru Holden on 06-05-2023 Platelet mean volume (Bld) [Entitic vol] 9.6 fL 6.2-12.0 [facility] Determination of erythrocyte mean corpuscular volume (MCV)Ordered By: Alexandru Holden on 06-05-2023 MCV (RBC) [Entitic vol] 88.7 fL 81-99 [facility] Hematocrit Auto (Bld) [Volum e fraction]Ordered By: Alexandru Holden on 06-05-2023 Hematocrit (Bld) [Volume fraction] 43.0 % 37-47 [facility] Laboratory - Chemistry and C hemistry - challengeOrdered By: Alexandru Holden on 06-05-2023 CO2 [Moles/Vol] 24.0 mmol/L 21.0-32.0 [facility] Urea nitrogen/Creatinine [Mass ratio] 14.9 mg/mg 10-20 [facility] Laboratory - Hematology and Cell countsOrdered By: Alexandru Holden on 06-05-2023 Erythrocyte distribution width (RBC) [Entitic vol] 44.9 fL 35.1-43.9 [facility] Erythrocyte distribution width (RBC) [Ratio] 13.9 % 11.6-14.6 [facility] Immature granulocytes/100 WBC (Bld) 0.500 % 0.0-0.9 [facility] Comment on above: IG% - Immature Granu locytes (promyelocytes, myelocytes and metamyelocytes) > 1% indicates that a LEFT SHIFT is Present. MCH (RBC) [Entitic mass] 27.8 pg 27.0-32.0 [facility] Nucleated RBC/100 WBC (Bld) [Ratio] 0 % 0-5 [facility] MCHC Auto (RBC) [Mass/Vol]Or dered By: Alexandru Holden on 06-05-2023 MCHC (RBC) [Mass/Vol] 31.4 g/dL 32-36 [facility] No Panel InformationOrdered By: Alexandru Holden on 06-05-2023 Estimated Creatinine Clearance Calc 61.64 ml/min [facility] Estimated GFR (MDRD) Amer 86 mL/min >60 [facility] Comment on above: GFR Calc Estimated GFR (MDRD) Non-Af Amer 71 mL/min >60 [facility] Comment on above: Non- GFR Calc Platelets bldOrdered By: Noam Holden on 06-05-2023 Platelets (Bld) [#/Vol] 544 10*3/uL 150-450 [facility] Serum or plasma calcium scarlett urement (mass/volume)[facility] Calcium [Mass/Vol] 8.8 mg/dL 8.5-10.1 [facility] Serum or plasma creatinine m easurement (mass/volume)Ordered By: Alexandru kay on 06-05-2023 Creatinine [Mass/Vol] 0.88 mg/dL 0.55-1.02 [facility] Comment on above: The validity of the calculated GFR & GFRAA in patients over 70 years has not been determined. Clinical correlation is essential. Serum or plasma urea nitroge n measurement (mass/volume)Ordered By: [facility] on 06-05-2023 Urea nitrogen [Mass/Vol] 13 mg/dL - [facility] Serum procalcitonin measurem entOrdered By: [facility] on 06-05-2023 Procalcitonin [Mass/Vol] ng/mL 0.00-0.09 [facility] Comment on above: A procalcitonin (PCT ) [...] Papanicolaou smear with manual screening 8 5-15 [facility] Absolute lymphocyte countOrd ered By: Idalia Sanhcez on 06-04-2023 Lymphocytes Auto (Unsp spec) [#/Vol] 3.40 10*3/uL 0.83-4.51 [facility] Basophil percentageOrdered B y: Idalia Sanchez on 06-04-2023 Basophils/100 WBC (Bld) 0.6 % 0-1 [facility] Bilirubin [Mass/Vol] 0.40 mg/dL 0.20-1.00 [facility] Comment on above: For patients on eltr ombopag therapy, use of Dimension [place] TBIL is not recommended. Chloride [Moles/Vol] 106 mmol/L 98-107 [facility] Eosinophils/100 WBC (Bld) 4.2 % 0-5 [facility] Glucose [Mass/Vol] 102 mg/dL 74-106 [facility] Comment on above: Fasting Glucose resu lt from 100 to 125 mg/dL suggests IMPAIRED HOMEOSTASIS per A.D.A. criteria. Neutrophils (Bld) [#/Vol] 8.5 10*3/uL 2.0-7.7 [facility] Neutrophils/100 WBC (Bld) 61.9 % 47-70 [facility] Potassium [Moles/Vol] 3.5 mmol/L 3.5-5.1 [facility] Protein [Mass/Vol] 7.9 g/dL 6.4-8.2 [facility] Sodium [Moles/Vol] 141 mmol/L 136-145 [facility] WBC (Bld) [#/Vol] 13.7 10*3/uL 4.4-11.0 [facility] Blood erythrocytes count (nu mber/volume)Ordered By: Idalia Sanchez on 06-04-2023 RBC (Bld) [#/Vol] 5.13 10*6/uL 4.2-5.4 [facility] Blood hemoglobin measurement (mass/volume)Ordered By: Idalia Sanchez on 06-04-2023 Hemoglobin (Bld) [Mass/Vol] 14.2 g/dL 12.0-15.0 [facility] Blood lymphocytes/100 leukoc ytesOrdered By: Idalia Sanchez on 06-04-2023 Lymphocytes/100 WBC (Bld) 24.9 % 19-41 [facility] Blood monocytes/100 leukocyt esOrdered By: Idalia Sanchez on 06-04-2023 Monocytes/100 WBC (Bld) 8.1 % 0-10 [facility] Blood platelet mean volumeOr dered By: Idalia Sanchez on 06-04-2023 Platelet mean volume (Bld) [Entitic vol] 9.3 fL 6.2-12.0 [facility] Determination of erythrocyte mean corpuscular volume (MCV)Ordered By: Idalia Sanchez on 06-04-2023 MCV (RBC) [Entitic vol] 87.9 fL 81-99 [facility] Direct bilirubinOrdered By: Idalia Sanchez on 06-04-2023 Bilirubin.direct [Mass/Vol] 0.12 mg/dL 0.00-0.30 [facility] Hematocrit Auto (Bld) [Volum e fraction]Ordered By: Idalia Sanchez on 06-04-2023 Hematocrit (Bld) [Volume fraction] 45.1 % 37-47 [facility] Influenza virus A and B and SARS-CoV-2 (COVID-19) Ag panel - Upper respiratory specimOrdered By: Idalia Sanchez on 06-04-2023 SARS-CoV-2 (COVID-19) RNA SONG+probe Ql (Resp) [facility] Laboratory - Chemistry and C hemistry - challengeOrdered By: Idalia Sanchez on 06-04-2023 ALP [Catalytic activity/Vol] 114 U/L 45-117 [facility] ALT [Catalytic activity/Vol] 18 U/L 13-56 [facility] CO2 [Moles/Vol] 29.0 mmol/L 21.0-32.0 [facility] Globulin (S) [Mass/Vol] 4.4 g/dL 2.2-4.2 [facility] Urea nitrogen/Creatinine [Mass ratio] 16.3 mg/mg 10-20 [facility] Laboratory - Hematology and Cell countsOrdered By: Idalia Sanchez on 06-04-2023 Erythrocyte distribution width (RBC) [Entitic vol] 44.2 fL 35.1-43.9 [facility] Erythrocyte distribution width (RBC) [Ratio] 13.7 % 11.6-14.6 [facility] Immature granulocytes/100 WBC (Bld) 0.300 % 0.0-0.9 [facility] Comment on above: IG% - Immature Granu locytes (promyelocytes, myelocytes and metamyelocytes) > 1% indicates that a LEFT SHIFT is Present. MCH (RBC) [Entitic mass] 27.7 pg 27.0-32.0 [facility] Nucleated RBC/100 WBC (Bld) [Ratio] 0 % 0-5 [facility] MCHC Auto (RBC) [Mass/Vol]Or dered By: Idalia Sanchez on 06-04-2023 MCHC (RBC) [Mass/Vol] 31.5 g/dL 32-36 [facility] No Panel InformationOrdered By: Idalia Sanchez on 06-04-2023 Estimated Creatinine Clearance Calc 58.96 ml/min [facility] Estimated GFR (MDRD) Amer 81 mL/min >60 [facility] Comment on above: GFR Calc Estimated GFR (MDRD) Non-Af Amer 67 mL/min >60 [facility] Comment on above: Non- GFR Calc Troponin I High Sensitivity 12 pg/mL 3.0-54.0 [facility] Comment on above: Please Note: New Stacey t Units and Gender Specific Reference Ranges. For more information see Policy Stat Procedure [place] High Sensitivity Troponin (TNIH) and attachments. Platelets bldOrdered By: Lara Sanchez on 06-04-2023 Platelets (Bld) [#/Vol] 558 10*3/uL 150-450 [facility] Serum or plasma albumin scarlett urement (mass/volume)Ordered By: Idalia Sanchez on 06-04-2023 Albumin [Mass/Vol] 3.5 g/dL 3.2-5.0 [facility] Serum or plasma calcium scarlett urement (mass/volume)Ordered By: Idalia Sanchez on 06-04-2023 Calcium [Mass/Vol] 9.1 mg/dL 8.5-10.1 [facility] Serum or plasma creatinine m easurement (mass/volume)Ordered By: Idalia Sanchez on 06-04-2023 Creatinine [Mass/Vol] 0.92 mg/dL 0.55-1.02 [facility] Comment on above: The validity of the calculated GFR & GFRAA in patients over 70 years has not been determined. Clinical correlation is essential. Serum or plasma urea nitroge n measurement (mass/volume)Ordered By: Idalia Sanchez on 06-04-2023 Urea nitrogen [Mass/Vol] 15 mg/dL 7-18 [facility] Thin prep Papanicolaou smear with manual screeningOrdered By: Idalia Sanchez on 06-04-2023 Thin prep Papanicolaou smear with manual screening 14 U/L 15-37 [facility] Thin prep Papanicolaou smear with manual screening 6 5-15 [facility] Basic metabolic 2000 panelon 05-01-2023 Anion gap [Moles/Vol] 5 mmol/L Normal 5-16 [facility] Comment on above: Order Comment: Speci men Type: BLOOD SPECIMEN Ordering Facility: [facility] Address: [address] [place] [address] Performed By: #### 5 7021-8 #### [facility] CLIA [id number] [address] [place] [address] [place] Calcium [Mass/Vol] 9.0 mg/dL Normal 8.5-10.5 [facility] Comment on above: Order Comment: Speci men Type: BLOOD SPECIMEN Ordering Facility: [facility] Address: [address] [place] [address] Performed By: #### 5 7021-8 #### [facility] CLIA [id number] [address] [place] [address] [place] Chloride [Moles/Vol] 107 mmol/L Normal 98-107 [facility] Comment on above: Order Comment: Speci men Type: BLOOD SPECIMEN Ordering Facility: [facility] Address: [address] [place] [address] Performed By: #### 5 7021-8 #### [facility] CLIA [id number] [address] [place] [address] [place] CO2 [Moles/Vol] 30 mmol/L Normal 21-32 [facility] Comment on above: Order Comment: Speci men Type: BLOOD SPECIMEN Ordering Facility: [facility] Address: [address] [place] [address] Performed By: #### 5 7021-8 #### [facility] CLIA [id number] [address] [place] [address] [place] Creatinine [Mass/Vol] 0.81 mg/dL Normal 0.51-0.95 [facility] Comment on above: Order Comment: Merissa farris Type: BLOOD SPECIMEN Ordering Facility: [facility] Address: [address] [place] [address] Result Comment: Yojana ents receiving either N-Acetylcysteine (NAC) or Metamizole prior to venipuncture, may have falsely depressed results. Performed By: #### 5 7021-8 #### [facility] CLIA [id number] [address] [place] [address] [facility] Creatinine and Glomerular filtration rate.predicted panel (S/P/Bld) 85 mL/min/1.73m??? Normal >=60 [facility] Comment on above: Order Comment: Merissa farris Type: BLOOD SPECIMEN Ordering Facility: [facility] Address: [address] [place] [address] Result Comment: Aracely mated Glomerular Filtration Rate [...] GFR. Performed By: #### 5 7021-8 #### [facility] CLIA [id number] [address] [place] [address] [place] Glucose [Mass/Vol] 111 mg/dL High 70-100 [facility] Comment on above: Order Comment: Merissa farris Type: BLOOD SPECIMEN Ordering Facility: [facility] Address: [address] [place] [address] Result Comment: The [place] [employer] (ADA) provides guidance for cutoff [...] Standards of Medical Care in Diabetes 2016, [place] [employer]. Diabetes Care. 2016.39(Suppl 1). Results may be falsely elevated after the administration of Sulfapyridine. Results may be falsely depressed after the administration of Sulfasalazine. Performed By: #### 5 7021-8 #### [facility] CLIA [id number] [address] [place] [address] [place] Potassium [Moles/Vol] 4.9 mmol/L Normal 3.5-5.1 [facility] Comment on above: Order Comment: Speci men Type: BLOOD SPECIMEN Ordering Facility: [facility] Address: [address] [place] [address] Performed By: #### 5 7021-8 #### [facility] CLIA [id number] [address] [place] [address] [place] [facility] Sodium [Moles/Vol] 142 mmol/L Normal 136-145 [facility] Comment on above: Order Comment: Laurai brenton Type: BLOOD SPECIMEN Ordering Facility: [facility] Address: [address] [place] [address] Performed By: #### 5 7021-8 #### [facility] CLIA [id number] [address] [place] [address] [place] [facility] Urea nitrogen [Mass/Vol] 10 mg/dL Normal 7-26 [facility] Comment on above: Order Comment: Speci men Type: BLOOD SPECIMEN Ordering Facility: [facility] Address: [address] [place] [address] Performed By: #### 5 7021-8 #### [facility] CLIA [id number] [address] [place] [address] [place] CBC W Auto Differential pane l (Bld)on 05-01-2023 Basophils (Bld) [#/Vol] 0.05 10*3/uL Normal <0.11 [facility] Comment on above: Order Comment: Speci men Type: BLOOD SPECIMEN Ordering Facility: [facility] Address: [address] [place] [address] Performed By: #### 5 7021-8 #### [facility] CLIA [id number] [address] [place] [address] [place] Basophils/100 WBC (Bld) 0.4 % Normal [facility] Comment on above: Order Comment: Speci men Type: BLOOD SPECIMEN Ordering Facility: [facility] Address: [address] [place] [address] Performed By: #### 5 7021-8 #### [facility] CLIA [id number] [address] [place] [address] [place] Differential cell count method Nom (Bld) Auto Normal [facility] Comment on above: Order Comment: Speci men Type: BLOOD SPECIMEN Ordering Facility: [facility] Address: [address] [place] [address] Performed By: #### 5 7021-8 #### [facility] CLIA [id number] [address] [place] [address] [place] Eosinophils (Bld) [#/Vol] 0.26 10*3/uL Normal <0.46 [facility] Comment on above: Order Comment: Speci men Type: BLOOD SPECIMEN Ordering Facility: [facility] Address: [address] [place] [address] Performed By: #### 5 7021-8 #### [facility] CLIA [id number] [address] [place] [address] [place] Eosinophils/100 WBC (Bld) 2.0 % Normal [facility] Comment on above: Order Comment: Speci men Type: BLOOD SPECIMEN Ordering Facility: [facility] Address: [address] [place] [address] Performed By: #### 5 7021-8 #### [facility] CLIA [id number] [address] [place] [address] [place] Erythrocyte distribution width (RBC) [Ratio] 14.2 % Normal 11.5-15.0 [facility] Comment on above: Order Comment: Speci men Type: BLOOD SPECIMEN Ordering Facility: [facility] Address: [address] [place] [address] Performed By: #### 5 7021-8 #### [facility] CLIA [id number] [address] [place] [address] [place] Hematocrit (Bld) [Volume fraction] 41.4 % Normal 36.0-46.0 [facility] Comment on above: Order Comment: Speci men Type: BLOOD SPECIMEN Ordering Facility: [facility] Address: [address] [place] [address] Performed By: #### 5 7021-8 #### [facility] CLIA [id number] [address] [place] [address] [place] Hemoglobin (Bld) [Mass/Vol] 12.9 g/dL Normal 11.5-15.5 [facility] Comment on above: Order Comment: Speci men Type: BLOOD SPECIMEN Ordering Facility: [facility] Address: [address] [place] [address] Performed By: #### 5 7021-8 #### [facility] CLIA [id number] [address] [place] [address] [place] Immature granulocytes (Bld) [#/Vol] 0.06 10*3/uL Normal <0.10 [facility] Comment on above: Order Comment: Speci men Type: BLOOD SPECIMEN Ordering Facility: [facility] Address: [address] [place] [address] Performed By: #### 5 7021-8 #### [facility] CLIA [id number] [address] [place] [address] [place] Immature granulocytes/100 WBC (Bld) 0.5 % Normal [facility] Comment on above: Order Comment: Speci men Type: BLOOD SPECIMEN Ordering Facility: [facility] Address: [address] [place] [address] Performed By: #### 5 7021-8 #### [facility] CLIA [id number] [address] [place] [address] [place] Lymphocytes (Bld) [#/Vol] 2.07 10*3/uL Normal 1.00-4.00 [facility] Comment on above: Order Comment: Speci men Type: BLOOD SPECIMEN Ordering Facility: [facility] Address: [address] [place] [address] Performed By: #### 5 7021-8 #### [facility] CLIA [id number] [address] [place] [address] [place] Lymphocytes/100 WBC (Bld) 16.3 % Normal [facility] Comment on above: Order Comment: Speci men Type: BLOOD SPECIMEN Ordering Facility: [facility] Address: [address] [place] [address] Performed By: #### 5 7021-8 #### [facility] CLIA [id number] [address] [place] [address] [place] MCH (RBC) [Entitic mass] 27.7 pg Normal 26.0-34.0 [facility] Comment on above: Order Comment: Speci men Type: BLOOD SPECIMEN Ordering Facility: [facility] Address: [address] [place] [address] Performed By: #### 5 7021-8 #### [facility] CLIA [id number] [address] [place] [address] [place] MCHC (RBC) [Mass/Vol] 31.2 g/dL Normal 30.5-36.0 [facility] Comment on above: Order Comment: Speci men Type: BLOOD SPECIMEN Ordering Facility: [facility] Address: [address] [place] [address] Performed By: #### 5 7021-8 #### [facility] CLIA [id number] [address] [place] [address] [place] MCV (RBC) [Entitic vol] 88.8 fL Normal 80.0-100.0 [facility] Comment on above: Order Comment: Speci men Type: BLOOD SPECIMEN Ordering Facility: [facility] Address: [address] [place] [address] Performed By: #### 5 7021-8 #### [facility] CLIA [id number] [address] [place] [address] [place] Monocytes (Bld) [#/Vol] 1.38 10*3/uL High <0.87 [facility] Comment on above: Order Comment: Speci men Type: BLOOD SPECIMEN Ordering Facility: [facility] Address: [address] [place] [address] Performed By: #### 5 7021-8 #### [facility] CLIA [id number] [address] [place] [address] [place] Monocytes/100 WBC (Bld) 10.9 % Normal [facility] Comment on above: Order Comment: Speci men Type: BLOOD SPECIMEN Ordering Facility: [facility] Address: [address] [place] [address] Performed By: #### 5 7021-8 #### [facility] CLIA [id number] [address] [place] [address] [place] Neutrophils (Bld) [#/Vol] 8.89 10*3/uL High 1.45-7.50 [facility] Comment on above: Order Comment: Speci men Type: BLOOD SPECIMEN Ordering Facility: [facility] Address: [address] [place] [address] Performed By: #### 5 7021-8 #### [facility] CLIA [id number] [address] [place] [address] [place] Neutrophils/100 WBC (Bld) 69.9 % Normal [facility] Comment on above: Order Comment: Speci men Type: BLOOD SPECIMEN Ordering Facility: [facility] Address: [address] [place] [address] Performed By: #### 5 7021-8 #### [facility] CLIA [id number] [address] [place] [address] [place] Nucleated RBC (Bld) [#/Vol] 10*3/uL Normal <0.01 [facility] Comment on above: Order Comment: Speci men Type: BLOOD SPECIMEN Ordering Facility: [facility] Address: [address] [place], [place] [address] [address] Performed By: #### 5 7021-8 #### [facility] CLIA [id number] [address] [place] [address] [place] Nucleated RBC/100 WBC (Bld) [Ratio] 0.0 /100 WBC Normal [facility] Comment on above: Order Comment: Speci men Type: BLOOD SPECIMEN Ordering Facility: [facility] Address: [address] [facility] [facility] [place] [address] Performed By: #### 5 7021-8 #### [facility] CLIA [id number] [address] [place] [address] [place] Platelet mean volume (Bld) [Entitic vol] 9.5 fL Normal 9.0-12.7 [facility] Comment on above: Order Comment: Speci men Type: BLOOD SPECIMEN Ordering Facility: [facility] Address: [address] [facility] [address] Performed By: #### 5 7021-8 #### [facility] CLIA [id number] [address] [place] [address] [place] Platelets (Bld) [#/Vol] 424 10*3/uL High 150-400 [facility] Comment on above: Order Comment: Speci men Type: BLOOD SPECIMEN Ordering Facility: [facility] Address: [address] [place] [address] Performed By: #### 5 7021-8 #### [facility] CLIA [id number] [address] [place] [address] [place] RBC (Bld) [#/Vol] 4.66 10*6/uL Normal 3.90-5.20 [facility] Comment on above: Order Comment: Speci men Type: BLOOD SPECIMEN Ordering Facility: [facility] Address: [address] [place] [address] Performed By: #### 5 7021-8 #### [facility] CLIA [id number] [address] [place], [place] [id number] [place] WBC (Bld) [#/Vol] 12.71 10*3/uL High 3.70-11.00 [facility] Comment on above: Order Comment: Speci men Type: BLOOD SPECIMEN Ordering Facility: [facility] Address: [place] [address] Performed By: #### 5 7021-8 #### [facility] CLIA [id number] [address] CNDSon 05-01-2023 CNDS HNO ID: [id number] Author: Vane Rosas MD Service: General Internal [...] difficulty in breathing for few days to [facility]. Patient diagnosed with streptococcal pneumonia, received [...] All Nuts [Other] Anaphylaxis Argan Nut Anaphylaxis [place] Nut Anaphylaxis Cashew Nut Anaphylaxis Hazelnut Anaphylaxis Macadamia Nut Oil Anaphylaxis Peanuts Anaphylaxis Pecan Nut Anaphylaxis [place] Buren Nut Anaphylaxis Pistachio Nut Anaphylaxis Tree Nut [...] DATE: May 02, 2023 TIME: 1:44 PM [facility] NURSING PROGon 05-01-2023 NURSING PROG HNO ID: [id number] Author: Tara Carr RN Service: Nursing Author [...] the time. Dr. Rosas notified via messenger. [facility] ALLIED HEALTHon 04-30-2023 ALLIED HEALTH HNO ID: [id number] Author: Velma Asif RT(R) Service: Radiology Author Type: Technologist Type: Allied Health Filed: 04/30/2023 11:22 AM Note Text: Summary: xr 60gezhd 40ccvaribar [facility] Progress Note PATIENT NAME: Savannah [...] IV DATA: Not applicable SIGNED BY: RT Domenica(R) April 30, 2023 11:21 AM [facility] ARTERIAL BLOOD GASESon 04-30 Base excess Calc (Bld) [Moles/Vol] 4 mmol/L High 0-2 [facility] Comment on above: Order Comment: Merissa farris Type: BLOOD SPECIMEN Ordering Facility: [facility] Address: [address] [place] [address] Performed By: #### 5 7021-8 #### [facility] CLIA [id number] [address] [place] [address] [place] Body temperature 98.6 [degF] [facility] Comment on above: Order Comment: Merissa farris Type: BLOOD SPECIMEN Ordering Facility: [facility] Address: [address] [place] [address] Performed By: #### 5 7021-8 #### [facility] CLIA [id number] [address] [place] [address] [place] Calcium.ionized (Bld) [Mass/Vol] 1.21 mmol/L Normal 1.08-1.30 [facility] Comment on above: Order Comment: Speci men Type: BLOOD SPECIMEN Ordering Facility: [facility] Address: [address] [place] [address] Performed By: #### 5 7021-8 #### [facility] CLIA [id number] [address] [place] [address] [place] Carboxyhemoglobin (BldA) [Mass fraction] 0.4 % Normal 0.0-2.0 [facility] Comment on above: Order Comment: Speci men Type: BLOOD SPECIMEN Ordering Facility: [facility] Address: [address] [place] [address] Result Comment: Carb oxyhemoglobin Reference Range for Smokers: 2.0-8.0% Performed By: #### 5 7021-8 #### [facility] CLIA [id number] [address] [place] [address] [place] CO2 (Bld) [Partial pressure] 48 mm Hg High 36-46 [facility] Comment on above: Order Comment: Speci men Type: BLOOD SPECIMEN Ordering Facility: [facility] Address: [address] [place] [address] Performed By: #### 5 7021-8 #### [facility] CLIA [id number] [address] [place] [address] [place] Glucose [Mass/Vol] 116 mg/dL High 60-105 [facility] Comment on above: Order Comment: Speci men Type: BLOOD SPECIMEN Ordering Facility: [facility] Address: [address] [place] [address] Performed By: #### 5 7021-8 #### [facility] CLIA [id number] [address] [place] [address] [place] HCO3 (Bld) [Moles/Vol] 29 mmol/L High 22-26 [facility] Comment on above: Order Comment: Speci men Type: BLOOD SPECIMEN Ordering Facility: [facility] Address: [address] [place], [place] [address] [id number] Performed By: #### 5 7021-8 #### [facility] CLIA [id number] [address] [place] [address] [place] Hemoglobin (Bld) [Mass/Vol] 11.6 g/dL Normal 11.5-15.5 [facility] Comment on above: Order Comment: Speci men Type: BLOOD SPECIMEN Ordering Facility: [facility] Address: [address] [place] [address] Performed By: #### 5 7021-8 #### [facility] CLIA [id number] [address] [place] [address] [place] Lactate [Moles/Vol] 1.1 mmol/L Normal 0.5-2.2 [facility] Comment on above: Order Comment: Speci men Type: BLOOD SPECIMEN Ordering Facility: [facility] Address: [address] [place] [address] Performed By: #### 5 7021-8 #### [facility] CLIA [id number] [address] [place] [address] [place] LITERS 3 Liters/min Normal [facility] Comment on above: Order Comment: Speci men Type: BLOOD SPECIMEN Ordering Facility: [facility] Address: [address] [place] [address] Performed By: #### 5 7021-8 #### [facility] CLIA [id number] [address] [place] [address] [place] Methemoglobin (Bld) [Mass fraction] 0.3 % Normal 0.0-1.5 [facility] Comment on above: Order Comment: Speci men Type: BLOOD SPECIMEN Ordering Facility: [facility] Address: [address] [place] [address] Performed By: #### 5 7021-8 #### [facility] CLIA [id number] [address] [place] [address] [place] O2 THERAPY NC = Nasal Cannula Normal [facility] Comment on above: Order Comment: Speci men Type: BLOOD SPECIMEN Ordering Facility: [facility] Address: [address] [place] [address] Performed By: #### 5 7021-8 #### [facility] CLIA [id number] [address] [place], [place] [id number] [place] Oxygen (Bld) [Partial pressure] 80 mm Hg Low 85-95 [facility] Comment on above: Order Comment: Speci men Type: BLOOD SPECIMEN Ordering Facility: [facility] Address: [address] [place] [address] Performed By: #### 5 7021-8 #### [facility] CLIA [id number] [address] [place] [address] [place] Oxyhemoglobin (BldA) [Mass fraction] 95 % Normal 95-98 [facility] Comment on above: Order Comment: Speci men Type: BLOOD SPECIMEN Ordering Facility: [facility] Address: [address] [place] [address] Performed By: #### 5 7021-8 #### [facility] CLIA [id number] [address] [place] [address] [place] pH (Bld) 7.40 [pH] Normal 7.35-7.45 [facility] Comment on above: Order Comment: Speci men Type: BLOOD SPECIMEN Ordering Facility: [facility] Address: [address] [place] [address] Performed By: #### 5 7021-8 #### [facility] CLIA [id number] [address] [place] [address] [place] Potassium [Moles/Vol] 3.9 mmol/L Normal 2.5-6.0 [facility] Comment on above: Order Comment: Speci men Type: BLOOD SPECIMEN Ordering Facility: [facility] Address: [address] [place] [address] Performed By: #### 5 7021-8 #### [facility] CLIA [id number] [address] [place], [place] [id number] [place] Sodium [Moles/Vol] 136 mmol/L Normal 136-144 [facility] Comment on above: Order Comment: Speci men Type: BLOOD SPECIMEN Ordering Facility: [facility] Address: [address], [place] [address] Performed By: #### 5 7021-8 #### [facility] CLIA [id number] [address] [place] [address] [place] Bacteria Spec Resp [...] , Intermediate >1 , Resistant >2 Abnormal [facility] Comment on above: Performed By: #### S LACT #### [facility] CLIA [id number] [address] [place] [id number] [place] Basic metabolic 2000 panelon 04-30-2023 Anion gap [Moles/Vol] 3 mmol/L Low 5-16 [facility] Comment on above: Order Comment: Speci men Type: BLOOD SPECIMENOrdering Facility: [facility] Address: [address] [place] [address] Performed By: #### 2 4321-2 ####[facility] [id number] [place] [address] [place] Calcium [Mass/Vol] 8.4 mg/dL Low 8.5-10.5 [facility] Comment on above: Order Comment: Speci men Type: BLOOD SPECIMENOrdering Facility: [facility] Address: [address] [place] [address] Performed By: #### 2 4321-2 ####[facility] [id number] [place] [address] [place] Chloride [Moles/Vol] 105 mmol/L Normal 98-107 [facility] Comment on above: Order Comment: Speci men Type: BLOOD SPECIMENOrdering Facility: [facility] Address: [address] [place] [address] Performed By: #### 2 4321-2 ####[facility] [id number] [place] [address] [place] CO2 [Moles/Vol] 30 mmol/L Normal 21-32 [facility] Comment on above: Order Comment: Speci men Type: BLOOD SPECIMENOrdering Facility: [facility] Address: [address] [place] [address] Performed By: #### 2 4321-2 ####[facility] [id number] [place] [address] [place] Creatinine [Mass/Vol] 1.05 mg/dL High 0.51-0.95 [facility] Comment on above: Order Comment: Merissa farris Type: BLOOD SPECIMENOrdering Facility: [facility] Address: [address] [place] [address] Result Comment: Yojana ents receiving either N-Acetylcysteine (NAC) or Metamizole prior to venipuncture, may have falsely depressed results. Performed By: #### 2 4321-2 ####[facility] [id number] [address] Creatinine and Glomerular filtration rate.predicted panel (S/P/Bld) 62 mL/min/1.73m??? Normal >=60 [facility] Comment on above: Order Comment: Merissa farris Type: BLOOD SPECIMENOrdering Facility: [facility] Address: [address] [place] [address] Result Comment: Aracely mated Glomerular Filtration Rate [...] actual GFR. Performed By: #### 2 4321-2 ####[facility] [id number] [place] [address] [place] Glucose [Mass/Vol] 116 mg/dL High 70-100 [facility] Comment on above: Order Comment: Merissa farris Type: BLOOD SPECIMENOrdering Facility: [facility] Address: [address] [place] [address] Result Comment: The [place] [employer] Association (ADA) provides guidance for cutoff [...] Standards of Medical Care in Diabetes 2016, [place] [employer]. Diabetes Care. 2016.39(Suppl 1). Results may be falsely elevated after the administration of Sulfapyridine. Results may be falsely depressed after the administration of Sulfasalazine. Performed By: #### 2 4321-2 ####[facility]ORYCLIA [id number] [address] STATES OF [facility] Potassium [Moles/Vol] 4.6 mmol/L Normal 3.5-5.1 [facility] Comment on above: Order Comment: Merissa farris Type: BLOOD SPECIMENOrdering Facility: [facility] Address: [address] [place] [address] Performed By: #### 2 4321-2 ####[facility] [id number] [address] [place] Sodium [Moles/Vol] 138 mmol/L Normal 136-145 [facility] Comment on above: Order Comment: Merissa farris Type: BLOOD SPECIMENOrdering Facility: [facility] Address: [address] [place] [address] Performed By: #### 2 4321-2 ####[facility] [id number] [address] [place] Urea nitrogen [Mass/Vol] 13 mg/dL Normal 7-26 [facility] Comment on above: Order Comment: Merissa farris Type: BLOOD SPECIMENOrdering Facility: [facility] Address: [address] [place] [address] Performed By: #### 2 4321-2 ####[facility] [id number] [place] [address] [place] CBC W Auto Differential pane l (Bld)on 04-30-2023 Basophils (Bld) [#/Vol] 0.05 10*3/uL Normal <0.11 [facility] Comment on above: Order Comment: Merissa farris Type: BLOOD SPECIMENOrdering Facility: [facility] Address: [address] [place] [address] Performed By: #### 5 7021-8 ####[facility] [id number] [place] [address] [place] Basophils/100 WBC (Bld) 0.3 % Normal [facility] Comment on above: Order Comment: Speci men Type: BLOOD SPECIMENOrdering Facility: [facility] Address: [address] [place] [address] Performed By: #### 5 7021-8 ####[facility] [id number] [place] [address] [place] Differential cell count method Nom (Bld) Auto Normal [facility] Comment on above: Order Comment: Speci men Type: BLOOD SPECIMENOrdering Facility: [facility] Address: [address] [place] [address] Performed By: #### 5 7021-8 ####[facility]ORYCLIA [id number] [place] [address] [place] Eosinophils (Bld) [#/Vol] 0.24 10*3/uL Normal <0.46 [facility] Comment on above: Order Comment: Speci men Type: BLOOD SPECIMENOrdering Facility: [facility] Address: [address] [place] [address] Performed By: #### 5 7021-8 ####[facility]ORYCLIA [id number] [place] [address] [place] Eosinophils/100 WBC (Bld) 1.5 % Normal [facility] Comment on above: Order Comment: Speci men Type: BLOOD SPECIMENOrdering Facility: [facility] Address: [address] [place] [address] Performed By: #### 5 7021-8 ####[facility]ORYCLIA [id number] [place] [address] [place] Erythrocyte distribution width (RBC) [Ratio] 14.1 % Normal 11.5-15.0 [facility] Comment on above: Order Comment: Speci men Type: BLOOD SPECIMENOrdering Facility: [facility] Address: [address] [place] [address] Performed By: #### 5 7021-8 ####[facility]ORYCLIA [id number] [place] [id number] [facility] [place] Hematocrit (Bld) [Volume fraction] 33.9 % Low 36.0-46.0 [facility] Comment on above: Order Comment: Speci men Type: BLOOD SPECIMENOrdering Facility: [facility] Address: [address] [place] [address] Performed By: #### 5 7021-8 ####[facility]ORYCLIA [id number] [place] [address] [place] Hemoglobin (Bld) [Mass/Vol] 10.7 g/dL Low 11.5-15.5 [facility] Comment on above: Order Comment: Speci men Type: BLOOD SPECIMENOrdering Facility: [facility] Address: [address] [place] [address] Performed By: #### 5 7021-8 ####[facility]ORYCLIA [id number] [place] [address] [place] Immature granulocytes (Bld) [#/Vol] 0.07 10*3/uL Normal <0.10 [facility] Comment on above: Order Comment: Speci men Type: BLOOD SPECIMENOrdering Facility: [facility] Address: [address] [place] [address] Performed By: #### 5 7021-8 ####[facility]ORYCLIA [id number] [place] [address] [place] Immature granulocytes/100 WBC (Bld) 0.4 % Normal [facility] Comment on above: Order Comment: Speci men Type: BLOOD SPECIMENOrdering Facility: [facility] Address: [address] [place] [address] Performed By: #### 5 7021-8 ####[facility]ORYCLIA [id number] [place] [address] [place] Lymphocytes (Bld) [#/Vol] 2.55 10*3/uL Normal 1.00-4.00 [facility] Comment on above: Order Comment: Speci men Type: BLOOD SPECIMENOrdering Facility: [facility] Address: [address] [place] [address] Performed By: #### 5 7021-8 ####[facility]ORYCLIA [id number] [place] [id number] [place] Lymphocytes/100 WBC (Bld) 15.8 % Normal [facility] Comment on above: Order Comment: Speci men Type: BLOOD SPECIMENOrdering Facility: [facility] Address: [address] [place] [address] Performed By: #### 5 7021-8 ####[facility]ORYCLIA [id number] [place] [address] [place] MCH (RBC) [Entitic mass] 28.2 pg Normal 26.0-34.0 [facility] Comment on above: Order Comment: Speci men Type: BLOOD SPECIMENOrdering Facility: [facility] Address: [address] [place] [address] Performed By: #### 5 7021-8 ####[facility]ORYCLIA [id number] [place] [address] [place] MCHC (RBC) [Mass/Vol] 31.6 g/dL Normal 30.5-36.0 [facility] Comment on above: Order Comment: Speci men Type: BLOOD SPECIMENOrdering Facility: [facility] Address: [address] [place] [address] Performed By: #### 5 7021-8 ####[facility]ORYCLIA [id number] [place] [address] [place] MCV (RBC) [Entitic vol] 89.2 fL Normal 80.0-100.0 [facility] Comment on above: Order Comment: Speci men Type: BLOOD SPECIMENOrdering Facility: [facility] Address: [address] [place] [address] Performed By: #### 5 7021-8 ####[facility]ORYCLIA [id number] [place] [address] [place] Monocytes (Bld) [#/Vol] 1.15 10*3/uL High <0.87 [facility] Comment on above: Order Comment: Speci men Type: BLOOD SPECIMENOrdering Facility: [facility] Address: [address] [place] [address] Performed By: #### 5 7021-8 ####[facility]ORYCLIA [id number] [place] [address] [place] Monocytes/100 WBC (Bld) 7.1 % Normal [facility] Comment on above: Order Comment: Speci men Type: BLOOD SPECIMENOrdering Facility: [facility] Address: [address] [place] [address] Performed By: #### 5 7021-8 ####[facility]ORYCLIA [id number] [place] [address] [place] Neutrophils (Bld) [#/Vol] 12.03 10*3/uL High 1.45-7.50 [facility] Comment on above: Order Comment: Speci men Type: BLOOD SPECIMENOrdering Facility: [facility] Address: [address] [place] [address] Performed By: #### 5 7021-8 ####[facility]ORYCLIA [id number] [place] [address] [place] Neutrophils/100 WBC (Bld) 74.9 % Normal [facility] Comment on above: Order Comment: Speci men Type: BLOOD SPECIMENOrdering Facility: [facility] Address: [address] [place] [address] Performed By: #### 5 7021-8 ####[facility]ORYCLIA [id number] [place] [address] [place] Nucleated RBC (Bld) [#/Vol] 10*3/uL Normal <0.01 [facility] Comment on above: Order Comment: Speci men Type: BLOOD SPECIMENOrdering Facility: [facility] Address: [address] [place] [address] Performed By: #### 5 7021-8 ####[facility]ORYCLIA [id number] [place] [id number] [place] Nucleated RBC/100 WBC (Bld) [Ratio] 0.0 /100 WBC Normal [facility] Comment on above: Order Comment: Speci men Type: BLOOD SPECIMENOrdering Facility: [facility] Address: [address] [place] [address] Performed By: #### 5 7021-8 ####[facility]ORYCLIA [id number] [place] [address] [place] Platelet mean volume (Bld) [Entitic vol] 9.2 fL Normal 9.0-12.7 [facility] Comment on above: Order Comment: Speci men Type: BLOOD SPECIMENOrdering Facility: [facility] Address: [address] [place] [address] Performed By: #### 5 7021-8 ####[facility]ORYCLIA [id number] [place] [id number] [place] Platelets (Bld) [#/Vol] 371 10*3/uL Normal 150-400 [facility] Comment on above: Order Comment: Speci men Type: BLOOD SPECIMENOrdering Facility: [facility] Address: [address] [place] [address] Performed By: #### 5 7021-8 ####[facility]ORYCLIA [id number] [place] [id number] [place] RBC (Bld) [#/Vol] 3.80 10*6/uL Low 3.90-5.20 [facility] Comment on above: Order Comment: Speci men Type: BLOOD SPECIMENOrdering Facility: [facility] Address: [address] [place] [address] Performed By: #### 5 7021-8 ####[facility]ORYCLIA [id number] [place] [id number] [place] WBC (Bld) [#/Vol] 16.09 10*3/uL High 3.70-11.00 [facility] Comment on above: Order Comment: Speci men Type: BLOOD SPECIMENOrdering Facility: [facility] Address: [place] [address] Performed By: #### 5 7021-8 ####[facility]ATORYCLIA [id number] [facility] [place] [place] [address] [place] ECG COMPLETEon 04-30-2023 ECG COMPLETE Ventricular Rate : 8 3 BPM Atrial Rate : 83 BPM P-R Interval : 154 ms QRS Duration : 98 ms Q-T Interval : 414 ms QTC Calculation(Bazett) : 486 ms Calculated P Spencer : 67 degrees Calculated R Spencer : 44 degrees Calculated T Spencer : 56 degrees Normal sinus rhythm Prolonged QT Abnormal ECG When compared with ECG of 29-APR-2023 08:33, No significant change was found Confirmed by AI PUENTE MD ([id number]) on 04/30/2023 9:19:15 PM NAME : SAVANNAH IRVIN PID : [id number] : 1965 Gender : Female Race : ORD : [id number] Procedure Date : Apr 30 2023 09:52:40 Edit Date : Apr 30 2023 21:19:17 Diagnosis: Normal sinus rhythm Prolonged QT Abnormal ECG When compared with ECG of 29-APR-2023 08:33, No significant change was found Confirmed by AI PUENTE MD ([id number]) on 04/30/2023 9:19:15 PM Test Reason : RT Location : 8 : [place] [address] Overread By : AI PUENTE MD Edited By : AI PUENTE MD Referred By : , Acquired by : BEN SUNSHINE [facility] NUTRITIONon 04-30-2023 NUTRITION HNO ID: [id number] Author: Martina Carlin RD Service: Nutrition Therapy [...] Estimated kilocalorie needs: 1600 Calorie Calculation Method: Kenova-St. Jeor (with activity factor) Estimated protein needs [...] Food Consistency Answer: SOFT AND BITE-SIZED (L6) 04/29/23 1730 Anthropometrics: Height: 165.1 cm (5' 5) Weight: [...] April 30, 2023 TIME: 12:42 PM Normal [facility] THERAPY NTon 04-30-2023 THERAPY NT HNO ID: [id number] Author: Destiny Cardoza, [facility] Service: Speech/Swallow Author Type: Speech Language Pathologist Type: Therapy (PT/OT/Speech/Resp) Filed: 04/30/2023 3:42 PM Note Text: Speech Therapy MBSS Evaluation SERVICE DATE: 04/30/2023 SERVICE TIME: 1045 to 1104 ROOM: [place] [address] IMPRESSION: Diet Recommendations: Regular Consistency, Thin Liquids [...] Need Interventions Provided: Modified Barium Swallow Study (65037) $ Modified Barium Swallow Study (32413) Billed Units: 1 unit Skilled Treatment Time (minutes): 19 Home Environment Prior Swallowing Function/Diet Textures: Regular Consistency, Thin Liquids IDDSI Level 0 Please see discipline specific clinical documentation flowsheet for complete details for this therapy evaluation/treatment. SIGNATURE: Destiny Cardoza CCC-[facility] PATIENT NAME: Savannah Irvin DATE: April 30, 2023 TIME: 3:42 PM Normal [facility] TOX SCREEN ROUT URon 023 Amphetamines Confirm (U) [Mass/Vol] Positive Abnormal Negative [facility] Comment on above: Order Comment: Speci men Type: BLOOD SPECIMEN Ordering Facility: [facility] Address: [address] [place] [address] Result Comment: Cuto ff threshold at 1000 ng/mL. Performed By: #### 5 7021-8 #### [facility] CLIA [id number] [address] [place] [address] [place] BARBITURATES, URINE Negative Normal Negative [facility] Comment on above: Order Comment: Speci men Type: BLOOD SPECIMEN Ordering Facility: [facility] Address: [address] [place] [address] Result Comment: Cuto ff threshold at 200 ng/mL. Performed By: #### 5 7021-8 #### [facility] CLIA [id number] [address] [place] [address] [place] BENZODIAZEPINES, UR Negative Normal Negative [facility] Comment on above: Order Comment: Speci men Type: BLOOD SPECIMEN Ordering Facility: [facility] Address: [address] [place] [address] Result Comment: Cuto ff threshold at 200 ng/mL. Performed By: #### 5 7021-8 #### [facility] CLIA [id number] [address] [place] [address] [place] Cannabinoids Screen Ql (U) Positive Abnormal Negative [facility] Comment on above: Order Comment: Speci men Type: BLOOD SPECIMEN Ordering Facility: [facility] Address: [address] [place] [address] Result Comment: Cuto ff threshold at 50 ng/mL. Performed By: #### 5 7021-8 #### [facility] CLIA [id number] [address] [place] Cocaine Ql (U) Negative Normal Negative [facility] Comment on above: Order Comment: Speci men Type: BLOOD SPECIMEN Ordering Facility: [facility] Address: [address] [place] [address] Result Comment: Cuto ff threshold at 300 ng/mL. Performed By: #### 5 7021-8 #### [facility] CLIA [id number] [address] [place] [address] [place] Opiates Screen Ql (U) Positive Abnormal Negative [facility] Comment on above: Order Comment: Speci men Type: BLOOD SPECIMEN Ordering Facility: [facility] Address: [address] [place] [address] Result Comment: Cuto ff threshold at 300 ng/mL. Performed By: #### 5 7021-8 #### [facility] CLIA [id number] [address] [place] [address] [place] Phencyclidine Ql (U) Negative Normal Negative [facility] Comment on above: Order Comment: Speci men Type: BLOOD SPECIMEN Ordering Facility: [facility] Address: [address] [place] [address] Result Comment: Cuto ff threshold at 25 ng/mL. Performed By: #### 5 7021-8 #### [facility] CLIA [id number] [address] [place] [address] [place] Urinalysis complete pnl Uron 04-30-2023 [...] URINE: <10,000 CFU/ml Normal Urogenital Sujata Abnormal [facility] Comment on above: Order Comment: Speci men Type: BLOOD SPECIMEN Ordering Facility: [facility] Address: [address] [place] [address] Performed By: #### 5 7021-8 #### [facility] CLIA [id number] [address] [place] [address] [place] XR MOD BARIUM SWALLOW W KENAN Banuelosn 04-30-2023 XR MOD BARIUM SWALLOW W SPEECH [...] Please see complete report by speech therapy. Photogrammetric Engineer: PSCB Transcribe Date/Time: Apr 30 2023 12:49P Dictated by : KOBE GUERRA MD This examination was interpreted and the report reviewed and electronically signed by: KOBE GUERRA MD on Apr 30 2023 12:50PM EST [id number] Normal [facility] ALLIED HEALTHon 04-29-2023 ALLIED HEALTH HNO ID: [id number] Author: Velma Asif RT(R) Service: Radiology Author [...] IV DATA: Not applicable SIGNED BY: RT Domenica(R) April 29, 2023 9:05 AM [facility] Bacteria Bld Culton 04-29-20 Bacteria identified Cx Nom (Bld) CULTURE, BLOOD: No growth 5 days [facility] Comment on above: Performed By: #### S LACT #### [facility] CLIA [id number] [address] [place] [address] [place] Bacteria identified Cx Nom (Bld) CULTURE, BLOOD: No growth 5 days [facility] Comment on above: Performed By: #### S LACT #### [facility] CLIA [id number] [address] [place] [address] [place] CBC W Auto Differential pane l (Bld)on 04-29-2023 Basophils (Bld) [#/Vol] 0.09 10*3/uL Normal <0.11 [facility] Comment on above: Order Comment: Speci men Type: BLOOD SPECIMEN Ordering Facility: [facility] Address: [address] [place] [address] Performed By: #### 5 7021-8 #### [facility] CLIA [id number] [address] [place] [address] [place] Basophils/100 WBC (Bld) 0.4 % Normal [facility] Comment on above: Order Comment: Speci men Type: BLOOD SPECIMEN Ordering Facility: [facility] Address: [address] [place] [address] Performed By: #### 5 7021-8 #### [facility] CLIA [id number] [address] [place] [address] [place] Differential cell count method Nom (Bld) Auto Normal [facility] Comment on above: Order Comment: Speci men Type: BLOOD SPECIMEN Ordering Facility: [facility] Address: [address] [place] [address] Performed By: #### 5 7021-8 #### [facility] CLIA [id number] [address] [place] [address] [place] Eosinophils (Bld) [#/Vol] 0.08 10*3/uL Normal <0.46 [facility] Comment on above: Order Comment: Speci men Type: BLOOD SPECIMEN Ordering Facility: [facility] Address: [address] [place] [address] Performed By: #### 5 7021-8 #### [facility] CLIA [id number] [address] [place] [address] [place] Eosinophils/100 WBC (Bld) 0.3 % Normal [facility] Comment on above: Order Comment: Speci men Type: BLOOD SPECIMEN Ordering Facility: [facility] Address: [address] [place] [address] Performed By: #### 5 7021-8 #### [facility] CLIA [id number] [address] [place] [address] [place] Erythrocyte distribution width (RBC) [Ratio] 14.3 % Normal 11.5-15.0 [facility] Comment on above: Order Comment: Speci men Type: BLOOD SPECIMEN Ordering Facility: [facility] Address: [address] [place] [address] Performed By: #### 5 7021-8 #### [facility] CLIA [id number] [address] [place] [address] [place] Hematocrit (Bld) [Volume fraction] 41.7 % Normal 36.0-46.0 [facility] Comment on above: Order Comment: Speci men Type: BLOOD SPECIMEN Ordering Facility: [facility] Address: [address] [place] [address] Performed By: #### 5 7021-8 #### [facility] CLIA [id number] [address] [place] [address] [place] Hemoglobin (Bld) [Mass/Vol] 13.3 g/dL Normal 11.5-15.5 [facility] Comment on above: Order Comment: Speci men Type: BLOOD SPECIMEN Ordering Facility: [facility] Address: [address] [place] [address] Performed By: #### 5 7021-8 #### [facility] CLIA [id number] [address] [place] [address] [place] Immature granulocytes (Bld) [#/Vol] 0.13 10*3/uL High <0.10 [facility] Comment on above: Order Comment: Speci men Type: BLOOD SPECIMEN Ordering Facility: [facility] Address: [address] [place] [address] Performed By: #### 5 7021-8 #### [facility] CLIA [id number] [address] [place] [address] [place] Immature granulocytes/100 WBC (Bld) 0.5 % Normal [facility] Comment on above: Order Comment: Speci men Type: BLOOD SPECIMEN Ordering Facility: [facility] Address: [address] [place] [address] Performed By: #### 5 7021-8 #### [facility] CLIA [id number] [address] [place] [address] [place] Lymphocytes (Bld) [#/Vol] 1.61 10*3/uL Normal 1.00-4.00 [facility] Comment on above: Order Comment: Speci men Type: BLOOD SPECIMEN Ordering Facility: [facility] Address: [address] [place] [address] Performed By: #### 5 7021-8 #### [facility] CLIA [id number] [address] [place] [address] [place] Lymphocytes/100 WBC (Bld) 6.5 % Normal [facility] Comment on above: Order Comment: Speci men Type: BLOOD SPECIMEN Ordering Facility: [facility] Address: [address] [place] [address] Performed By: #### 5 7021-8 #### [facility] CLIA [id number] [address] [place] [address] [place] MCH (RBC) [Entitic mass] 27.5 pg Normal 26.0-34.0 [facility] Comment on above: Order Comment: Speci men Type: BLOOD SPECIMEN Ordering Facility: [facility] Address: [address] [place] [address] Performed By: #### 5 7021-8 #### [facility] CLIA [id number] [address] [place] [address] [place] MCHC (RBC) [Mass/Vol] 31.9 g/dL Normal 30.5-36.0 [facility] Comment on above: Order Comment: Speci men Type: BLOOD SPECIMEN Ordering Facility: [facility] Address: [address] [place] [address] Performed By: #### 5 7021-8 #### [facility] CLIA [id number] [address] [place] [address] [place] MCV (RBC) [Entitic vol] 86.3 fL Normal 80.0-100.0 [facility] Comment on above: Order Comment: Speci men Type: BLOOD SPECIMEN Ordering Facility: [facility] Address: [address] [place] [address] Performed By: #### 5 7021-8 #### [facility] CLIA [id number] [address] [place] [address] [place] Monocytes (Bld) [#/Vol] 1.51 10*3/uL High <0.87 [facility] Comment on above: Order Comment: Speci men Type: BLOOD SPECIMEN Ordering Facility: [facility] Address: [address] [place] [address] Performed By: #### 5 7021-8 #### [facility] CLIA [id number] [address] [place] [address] [place] Monocytes/100 WBC (Bld) 6.1 % Normal [facility] Comment on above: Order Comment: Speci men Type: BLOOD SPECIMEN Ordering Facility: [facility] Address: [address] [place] [address] Performed By: #### 5 7021-8 #### [facility] CLIA [id number] [address] [place] [address] [place] Neutrophils (Bld) [#/Vol] 21.44 10*3/uL High 1.45-7.50 [facility] Comment on above: Order Comment: Speci men Type: BLOOD SPECIMEN Ordering Facility: [facility] Address: [address] [place] [address] Performed By: #### 5 7021-8 #### [facility] CLIA [id number] [address] [place] [address] [place] Neutrophils/100 WBC (Bld) 86.2 % Normal [facility] Comment on above: Order Comment: Speci men Type: BLOOD SPECIMEN Ordering Facility: [facility] Address: [address] [place] [address] Performed By: #### 5 7021-8 #### [facility] CLIA [id number] [address] [place] [address] [place] Nucleated RBC (Bld) [#/Vol] 10*3/uL Normal <0.01 [facility] Comment on above: Order Comment: Speci men Type: BLOOD SPECIMEN Ordering Facility: [facility] Address: [address] [place] [address] Performed By: #### 5 7021-8 #### [facility] CLIA [id number] [address] [place] [address] [place] Nucleated RBC/100 WBC (Bld) [Ratio] 0.0 /100 WBC Normal [facility] Comment on above: Order Comment: Speci men Type: BLOOD SPECIMEN Ordering Facility: [facility] Address: [address] [place] [address] Performed By: #### 5 7021-8 #### [facility] CLIA [id number] [address] [place], [place] [id number] [place] Platelet mean volume (Bld) [Entitic vol] 9.2 fL Normal 9.0-12.7 [facility] Comment on above: Order Comment: Speci men Type: BLOOD SPECIMEN Ordering Facility: [facility] Address: [address] [place] [address] Performed By: #### 5 7021-8 #### [facility] CLIA [id number] [address] [place] [address] [facility] [place] Platelets (Bld) [#/Vol] 457 10*3/uL High 150-400 [facility] Comment on above: Order Comment: Speci men Type: BLOOD SPECIMEN Ordering Facility: [facility] Address: [address] [place] [address] Performed By: #### 5 7021-8 #### [facility] CLIA [id number] [address] [place] [address] [place] RBC (Bld) [#/Vol] 4.83 10*6/uL Normal 3.90-5.20 [facility] Comment on above: Order Comment: Speci men Type: BLOOD SPECIMEN Ordering Facility: [facility] Address: [address] [place] [address] Performed By: #### 5 7021-8 #### [facility] CLIA [id number] [address] [place], [place] [address] [place] WBC (Bld) [#/Vol] 24.86 10*3/uL High 3.70-11.00 [facility] Comment on above: Order Comment: Speci men Type: BLOOD SPECIMEN Ordering Facility: [facility] Address: [address] [place] [address] Performed By: #### 5 7021-8 #### [facility] CLIA [id number] [address] [place], [place] [address] [place] CT FLANK WO IVCONon 04-29-[address] FLANK WO IVCON * * *Final Report* * * DATE OF EXAM: Apr 29 2023 10:10AM [facility] 0529 - CT FLANK WO IVCON / [...] Trace left pleural effusion with associated atelectasis. [employer] Hard[employer] Outfitter (topogram) images: No additional findings. IMPRESSION: Nonobstructive 4 mm calculus within the left mid renal pole. No hydronephrosis. Consolidative airspace opacity within the left lower lobe concerning for pneumonia. Trace left pleural effusion likely reactive. Follow-up to resolution. Dictated by Accounting Manager Cpa: Ishmael Beaver DO I, Muhammad Alkaphoury, MD, have supervised the procedure and/or image review, and agree with the above interpretation and report. Photogrammetric Engineer: YAZMIN Transcribe Date/Time: Apr 29 2023 10:13A Dictated by : ISHMAEL BEAVER DO This examination was interpreted and the report reviewed and electronically signed by: JF LEWIS MD on Apr 29 2023 10:29AM EST [id number] Normal [facility] Comprehensive metabolic 2000 panelon 04-29-2023 Albumin [Mass/Vol] 3.4 g/dL Normal 3.2-5.0 [facility] Comment on above: Order Comment: Merissa farris Type: BLOOD SPECIMEN Ordering Facility: [facility] Address: [address] [place] [address] Performed By: #### 2 4323-8 #### [facility] CLIA [id number] [address] [place] [address] [place] ALP [Catalytic activity/Vol] 151 U/L High 45-117 [facility] Comment on above: Order Comment: Laurai brenton Type: BLOOD SPECIMEN Ordering Facility: [facility] Address: [address] [place] [address] Performed By: #### 2 4323-8 #### [facility] CLIA [id number] [address] [place] [address] [place] ALT [Catalytic activity/Vol] 16 U/L Normal 13-61 [facility] Comment on above: Order Comment: Laurai brenton Type: BLOOD SPECIMEN Ordering Facility: [facility] Address: [address] [place] [address] Result Comment: Resu lts may be falsely depressed after the administration of Sulfasalazine and/or Sulfapyridine. Performed By: #### 2 4323-8 #### [facility] CLIA [id number] [address] [place] [address] [place] Anion gap [Moles/Vol] 6 mmol/L Normal 5-16 [facility] Comment on above: Order Comment: Laurai brenton Type: BLOOD SPECIMEN Ordering Facility: [facility] Address: [address] [place] [address] Performed By: #### 2 4323-8 #### [facility] CLIA [id number] [address] [place] [address] [place] AST [Catalytic activity/Vol] 27 U/L Normal 8-34 [facility] Comment on above: Order Comment: Speci men Type: BLOOD SPECIMEN Ordering Facility: [facility] Address: [address] [place] [address] Result Comment: Resu lts may be falsely depressed after the administration of Sulfasalazine and/or Sulfapyridine. Performed By: #### 2 4323-8 #### [facility] CLIA [id number] [address] [place] [address] [place] Bilirubin [Mass/Vol] 0.4 mg/dL Normal 0.2-1.0 [facility] Comment on above: Order Comment: Speci men Type: BLOOD SPECIMEN Ordering Facility: [facility] Address: [address] [place] [address] Performed By: #### 2 4323-8 #### [facility] CLIA [id number] [address] [place] [address] [place] Calcium [Mass/Vol] 9.2 mg/dL Normal 8.5-10.5 [facility] Comment on above: Order Comment: Speci men Type: BLOOD SPECIMEN Ordering Facility: [facility] Address: [address] [place] [address] Performed By: #### 2 4323-8 #### [facility] CLIA [id number] [address] [place] [address] [place] Chloride [Moles/Vol] 103 mmol/L Normal 98-107 [facility] Comment on above: Order Comment: Speci men Type: BLOOD SPECIMEN Ordering Facility: [facility] Address: [address] [place] [address] Performed By: #### 2 4323-8 #### [facility] CLIA [id number] [address] [place] [address] [place] CO2 [Moles/Vol] 29 mmol/L Normal 21-32 [facility] Comment on above: Order Comment: Merissa farris Type: BLOOD SPECIMEN Ordering Facility: [facility] Address: [address] [place] [address] Performed By: #### 2 4323-8 #### [facility] CLIA [id number] [address] [place] [address] STATES [place] [facility] Creatinine [Mass/Vol] 0.86 mg/dL Normal 0.51-0.95 [facility] Comment on above: Order Comment: Merissa farris Type: BLOOD SPECIMEN Ordering Facility: [facility] Address: [address] [place] [address] Result Comment: Yojana ents receiving either N-Acetylcysteine (NAC) or Metamizole prior to venipuncture, may have falsely depressed results. Performed By: #### 2 4323-8 #### [facility] CLIA [id number] [address] [place] [address] Creatinine and Glomerular filtration rate.predicted panel (S/P/Bld) 79 mL/min/1.73m??? Normal >=60 [facility] Comment on above: Order Comment: Merissa farris Type: BLOOD SPECIMEN Ordering Facility: [facility] Address: [address] [place] [address] Result Comment: Aracely mated Glomerular Filtration Rate [...] GFR. Performed By: #### 2 4323-8 #### [facility] CLIA [id number] [address] [place] [address] [place] Glucose [Mass/Vol] 113 mg/dL High 70-100 [facility] Comment on above: Order Comment: Merissa farris Type: BLOOD SPECIMEN Ordering Facility: [facility] Address: [address] [place] [address] Result Comment: The [place] [employer] (ADA) provides guidance for cutoff [...] Standards of Medical Care in Diabetes 2016, [place] [employer]. Diabetes Care. 2016.39(Suppl 1). Results may be falsely elevated after the administration of Sulfapyridine. Results may be falsely depressed after the administration of Sulfasalazine. Performed By: #### 2 4323-8 #### [facility] CLIA [id number] [address] [place] [address] [place] Potassium [Moles/Vol] 4.2 mmol/L Normal 3.5-5.1 [facility] Comment on above: Order Comment: Speci men Type: BLOOD SPECIMEN Ordering Facility: [facility] Address: [address] [place] [address] Performed By: #### 2 4323-8 #### [facility] CLIA [id number] [address] [place] [address] [place] Protein [Mass/Vol] 6.9 g/dL Normal 6.0-8.5 [facility] Comment on above: Order Comment: Speci men Type: BLOOD SPECIMEN Ordering Facility: [facility] Address: [address] [place] [address] Performed By: #### 2 4323-8 #### [facility] CLIA [id number] [address] [place] [address] [place] Sodium [Moles/Vol] 138 mmol/L Normal 136-145 [facility] Comment on above: Order Comment: Speci men Type: BLOOD SPECIMEN Ordering Facility: [facility] Address: [address] [place] [address] Performed By: #### 2 4323-8 #### [facility] CLIA [id number] [facility] [address] [place] Urea nitrogen [Mass/Vol] 12 mg/dL Normal 02-10 [facility] Comment on above: Order Comment: Speci men Type: BLOOD SPECIMEN Ordering Facility: [facility] Address: [address] [place] [address] Performed By: #### 2 4323-8 #### [facility] CLIA [id number] [address] [place] [address] [place] D dimer FEU PPP-mCncon 04-29 Fibrin D-dimer FEU (PPP) [Mass/Vol] 430 ng/mL FEU Normal <500 [facility] Comment on above: Order Comment: Speci men Type: BLOOD SPECIMENOrdering Facility: [facility] Address: [address] [place] [address] Performed By: #### 4 8065-7 ####[facility] [id number] [place] [address] [place] ECG COMPLETEon 04-29-2023 ECG COMPLETE Ventricular Rate : 1 07 BPM Atrial Rate : 107 BPM P-R Interval : 146 ms QRS Duration : 88 ms Q-T Interval : 338 ms QTC Calculation(Bazett) : 451 ms Calculated P Spencer : 50 degrees Calculated R Spencer : 36 degrees Calculated T Spencer : 29 degrees Sinus tachycardia Otherwise normal ECG When compared with ECG of 26-APR-2021 15:56, T wave amplitude has increased in Lateral leads Confirmed by TISH GOMEZ MD ([id number]) on 04/29/2023 8:51:06 PM NAME : SAVANNAH IRVIN PID : [id number] : 1965 Gender : Female Race : ORD : [id number] Procedure Date : Apr 29 2023 08:33:22 Edit Date : Apr 29 2023 20:51:06 Diagnosis: Sinus tachycardia Otherwise normal ECG When compared with ECG of 26-APR-2021 15:56, T wave amplitude has increased in Lateral leads Confirmed by TISH GOMEZ MD ([id number]) on 04/29/2023 8:51:06 PM Test Reason : STAT Location : 0 : ED 33 Overread By : TISH GOMEZ MD Edited By : TISH GOMEZ MD Referred By : , Acquired by : OB, [facility] ED NOTEon 04-29-2023 ED NOTE HNO ID: [id number] Author: Tesfaye Reid RN Service: ? Author Type: Registered Nurse Type: ED Notes Filed: 04/29/2023 1:39 PM Note Text: Report called to Coty RN in 7M [facility] ED NOTE HNO ID: [id number] Author: Tesfaye Reid, RN Service: ? Author Type: Registered Nurse Type: ED Notes Filed: 04/29/2023 11:13 AM Note Text: Pt placed on 2L NC at this time due to O2 saturations dropping to 89% while sleeping. Dr Solorzano aware [facility] ED PROV NOTEon 04-29-2023 ED PROV NOTE HNO ID: [id number] Author: Jace Solorzano MD Service: ? Author [...] in her kidneys. History provided by: Patient polisher dial used: No Savannah Irvin is a 57 [...] All Nuts [Other] Anaphylaxis Argan Nut Anaphylaxis [place] Nut Anaphylaxis Cashew Nut Anaphylaxis Hazelnut Anaphylaxis Macadamia Nut Oil Anaphylaxis Peanuts Anaphylaxis Pecan Nut Anaphylaxis [place] Nut Anaphylaxis Pistachio Nut Anaphylaxis Tree Nut [...] warm and (more content not included)... Normal [facility] FLUABV+SARS-CoV-2+RSV Pnl Re sp SONG+probeon 04-29-2023 FLUABV+SARS-CoV-2+RSV Pnl Resp SONG+probe COVID 19 RESULT: Not detected The method used is RT-PCR or an equivalent NAAT method. Reference Range(the expected result in uninfected individuals): Not detected INFLUENZA A PCR: Not detected INFLUENZA B PCR: Not detected RSV PCR: Not detected Normal [facility] Comment on above: Performed By: #### 9 5941-1 #### [facility] CLIA [id number] [facility] [employer] [place] [id number] [place] Fibrin D-dimer FEU (PPP) [Ma ss/Vol]on 04-29-2023 D DIMER AGE-RELATED CUTOFF 560 ng/mL FEU Normal [facility] Comment on above: Order Comment: Speci men Type: BLOOD SPECIMENOrdering Facility: [facility] Address: [address] [place], [place] [address] [id number] Performed By: #### 4 8065-7 ####[facility] [id number] [place] [id number] [place] HIGH SENSITIVITY TROPONIN Io n 04-29-2023 Tropinin I.cardiac panel High sensitivity method 8.6 pg/mL Normal 0.0-34.0 [facility] Comment on above: Order Comment: Speci men Type: BLOOD SPECIMEN Ordering Facility: [facility] Address: [address] [place] [id number] Result Comment: This assay uses different antibodies than our current assay, and assays, even by the same import/export analyst may recognize different regions of the antibody and cannot be used interchangeably. Expect results of this assay to run higher than the previous assay. Performed By: #### H STROP #### [facility] CLIA [id number] [address] [place] [place] [id number] [place] HISTORY PHYSICALon HISTORY PHYSICAL HNO ID: [id number] Author: Ortiz Stroud MD Service: Hospital Medicine [...] stenosis 08/31/2012 Depression 12/31/2011 Depression 01/15/2015 See [facility] Dysthymic disorder Depression (non-psychotic) Hyperlipidemia 12/31/2011 [...] Head: Normocephalic (more content not included)... Normal [facility] Legionella Ag Ur Qlon 2022 Legionella sp Ag Ql (U) Negative Normal Negative [facility] Comment on above: Order Comment: Speci men Type: URINE SPECIMENOrdering Facility: [facility] Address: [place] [address] Performed By: #### 3 2781-7 ####[facility] [id number] [place] [address] [place] SEPSIS LACTATEon 04-29-2023 Lactate [Moles/Vol] 1.1 mmol/L Normal 0.4-2.0 [facility] Comment on above: Order Comment: Speci men Type: BLOOD SPECIMEN Ordering Facility: [facility] Address: [place] [address] Performed By: #### S LACT #### [facility] CLIA [id number] [address] [place] [place] [id number] [facility] [place] STREPTOCOCCUS PNEUMONIAE AGo n 04-29-2023 STREPTOCOCCUS PNEUMONIAE AG STREP PNEUMO AG RESULT: Positive for Streptococcus pneumoniae antigen. Abnormal [facility] Comment on above: Performed By: #### S PNAG ####[facility] [id number] [address] [place] XR CHEST 1V FRONTAL PORTon [...] be atelectatic or infectious. Radiographic follow-up recommended. Photogrammetric Engineer: PSCB Transcribe Date/Time: Apr 29 2023 9:07A Dictated by : JF LEWIS MD This examination was interpreted and the report reviewed and electronically signed by: JF LEWIS MD on Apr 29 2023 9:09AM EST [id number] Normal [facility] .Auto Diffon 02-22-2023 Basophil, Absolute 0.1 10 3/mcL Normal 0.0-0.2 [facility] ([place]) Comment on above: Performed By: #### G FR, DIMER, ANEU, PRO, APTT, MDW, ADIFF, BMP, CBC, TROPHS #### [address] [address] Basophils/100 WBC (Bld) 1.1 % Normal 0.0-2.5 [facility] ([place]) Comment on above: Performed By: #### G FR, DIMER, ANEU, PRO, APTT, MDW, ADIFF, BMP, CBC, TROPHS #### [address] [address] Eosinophil, Absolute 0.3 10 3/mcL Normal 0.0-0.4 [facility] ([place]) Comment on above: Performed By: #### G FR, DIMER, ANEU, PRO, APTT, MDW, ADIFF, BMP, CBC, TROPHS #### [address] [address] Eosinophils/100 WBC (Bld) 2.5 % Normal 0.0-7.0 [facility] ([place]) Comment on above: Performed By: #### G FR, DIMER, ANEU, PRO, APTT, MDW, ADIFF, BMP, CBC, TROPHS #### [address] [address] Lymphocyte, Absolute 2.6 10 3/mcL Normal 0.8-3.9 [facility] ([place]) Comment on above: Performed By: #### G FR, DIMER, ANEU, PRO, APTT, MDW, ADIFF, BMP, CBC, TROPHS #### [address] [address] Lymphocytes/100 WBC (Bld) 25.4 % Normal 10.0-50.0 [facility] ([place]) Comment on above: Performed By: #### G FR, DIMER, ANEU, PRO, APTT, MDW, ADIFF, BMP, CBC, TROPHS #### [address] [address] Monocyte, Absolute 1.0 10 3/mcL Normal 0.2-1.0 [facility] ([place]) Comment on above: Performed By: #### G FR, DIMER, ANEU, PRO, APTT, MDW, ADIFF, BMP, CBC, TROPHS #### [address] [address] Monocytes/100 WBC (Bld) 9.7 % Normal 1.7-13.0 [facility] ([place]) Comment on above: Performed By: #### G FR, DIMER, ANEU, PRO, APTT, MDW, ADIFF, BMP, CBC, TROPHS #### [address] [address] Neutrophils/100 WBC (Bld) 61.3 % Normal 37.0-80.0 [facility] ([place]) Comment on above: Performed By: #### G FR, DIMER, ANEU, PRO, APTT, MDW, ADIFF, BMP, CBC, TROPHS #### [address] [address] .GFRon 02-22-2023 GFR Non- 73 ml/min/1.73sqm Normal [facility] ([place]) Comment on above: Result Comment: GFR Population [...] APTT, MDW, ADIFF, BMP, CBC, TROPHS #### [address] [address] GFR 89 ml/min/1.73sqm Normal [facility] ([place]) Comment on above: Result Comment: GFR Population [...] APTT, MDW, ADIFF, BMP, CBC, TROPHS #### [address] [address] .MDWon 02-22-2023 Monocyte Distribution Width 16.50 Normal 0.00-20.00 [facility] ([place]) Comment on above: Result Comment: For ED adult patients suspected of sepsis, MDW<=20.0 does not rule out sepsis or risk of sepsis Performed By: #### G FR, DIMER, ANEU, PRO, APTT, MDW, ADIFF, BMP, CBC, TROPHS #### [address] [address] .NEUABSon 02-22-2023 Neutrophil, Absolute 6.4 10 3/mcL High 2.9-6.2 [facility] ([place]) Comment on above: Performed By: #### G FR, DIMER, ANEU, PRO, APTT, MDW, ADIFF, BMP, CBC, TROPHS #### [address] [address] APTTon 02-22-2023 aPTT Coag (Bld) [Time] 35.4 s High 25.0-35.0 [facility] ([place]) Comment on above: Result Comment: For Heparin anticoagulation therapy, the recommended therapeutic range is: 50.6-87.4 seconds. Patients on heparin therapy may have an extreme result. Performed By: #### G FR, DIMER, ANEU, PRO, APTT, MDW, ADIFF, BMP, CBC, TROPHS ####[address] [place] [address] Heparin dose (APTT) Unknown Normal [facility] ([place]) Comment on above: Performed By: #### G FR, DIMER, ANEU, PRO, APTT, MDW, ADIFF, BMP, CBC, TROPHS ####[address] [address] BMPon 02-22-2023 BUN/Creatinine Ratio 15 ratio Normal 7-27 [facility] ([place]) Comment on above: Performed By: #### G FR, DIMER, ANEU, PRO, APTT, MDW, ADIFF, BMP, CBC, TROPHS #### [address] [address] Calcium [Mass/Vol] 9.1 mg/dL Normal 8.4-10.2 [facility] ([place]) Comment on above: Performed By: #### G FR, DIMER, ANEU, PRO, APTT, MDW, ADIFF, BMP, CBC, TROPHS #### [address] [address] Chloride [Moles/Vol] 103 mmol/L Normal 98-107 [facility] ([place]) Comment on above: Performed By: #### G FR, DIMER, ANEU, PRO, APTT, MDW, ADIFF, BMP, CBC, TROPHS #### [address] [address] CO2 [Moles/Vol] 35 mmol/L High 22-29 [facility] ([place]) Comment on above: Performed By: #### G FR, DIMER, ANEU, PRO, APTT, MDW, ADIFF, BMP, CBC, TROPHS #### [address] [address] Creatinine [Mass/Vol] 0.81 mg/dL Normal 0.55-1.02 [facility] ([place]) Comment on above: Performed By: #### G FR, DIMER, ANEU, PRO, APTT, MDW, ADIFF, BMP, CBC, TROPHS #### [address] [address] Electrolyte Balance 5.0 mEq/L Normal 4.0-15.0 [facility] ([place]) Comment on above: Performed By: #### G FR, DIMER, ANEU, PRO, APTT, MDW, ADIFF, BMP, CBC, TROPHS #### [address] [address] Glucose [Mass/Vol] 75 mg/dL Normal 70-105 [facility] ([place]) Comment on above: Performed By: #### G FR, DIMER, ANEU, PRO, APTT, MDW, ADIFF, BMP, CBC, TROPHS #### [address] [address] Potassium [Moles/Vol] 3.5 mmol/L Normal 3.5-5.1 [facility] ([place]) Comment on above: Performed By: #### G FR, DIMER, ANEU, PRO, APTT, MDW, ADIFF, BMP, CBC, TROPHS #### [address] [address] Sodium [Moles/Vol] 143 mmol/L Normal 136-145 [facility] ([place] Comment on above: Performed By: #### G FR, DIMER, ANEU, PRO, APTT, MDW, ADIFF, BMP, CBC, TROPHS #### [address] [address] Urea nitrogen [Mass/Vol] 12 mg/dL Normal 7-18 [facility] ([place]) Comment on above: Performed By: #### G FR, DIMER, ANEU, PRO, APTT, MDW, ADIFF, BMP, CBC, TROPHS #### [address] [address] CBCon 02-22-2023 Erythrocyte distribution width (RBC) [Ratio] 14.4 % Normal 11.5-14.5 [facility] ([place]) Comment on above: Performed By: #### G FR, DIMER, ANEU, PRO, APTT, MDW, ADIFF, BMP, CBC, TROPHS #### [address] [address] Hematocrit (Bld) [Volume fraction] 39.6 % Normal 37.0-47.0 [facility] ([place]) Comment on above: Performed By: #### G FR, DIMER, ANEU, PRO, APTT, MDW, ADIFF, BMP, CBC, TROPHS #### [address] [address] Hgb 13.2 G/dL Normal 12.0-16.0 [facility] ([place]) Comment on above: Performed By: #### G FR, DIMER, ANEU, PRO, APTT, MDW, ADIFF, BMP, CBC, TROPHS #### [address] [address] MCH (RBC) [Entitic mass] 28.4 pg Normal 27.0-31.2 [facility] ([place]) Comment on above: Performed By: #### G FR, DIMER, ANEU, PRO, APTT, MDW, ADIFF, BMP, CBC, TROPHS #### [address] [address] MCHC 33.3 G/dL Normal 33.0-37.0 [facility] ([place]) Comment on above: Performed By: #### G FR, DIMER, ANEU, PRO, APTT, MDW, ADIFF, BMP, CBC, TROPHS #### [address] [address] MCV (RBC) [Entitic vol] 85.1 fL Normal 80.0-94.0 [facility] ([place]) Comment on above: Performed By: #### G FR, DIMER, ANEU, PRO, APTT, MDW, ADIFF, BMP, CBC, TROPHS #### [address] [address] Platelet 741 10 3/mcL High 130-400 [facility] ([place]) Comment on above: Performed By: #### G FR, DIMER, ANEU, PRO, APTT, MDW, ADIFF, BMP, CBC, TROPHS #### [address] [address] Platelet mean volume (Bld) [Entitic vol] 6.8 fL Low 7.4-10.4 [facility] ([place]) Comment on above: Performed By: #### G FR, DIMER, ANEU, PRO, APTT, MDW, ADIFF, BMP, CBC, TROPHS #### [address] [address] RBC 4.66 10 6/mcL Normal 4.20-5.40 [facility] ([place]) Comment on above: Performed By: #### G FR, DIMER, ANEU, PRO, APTT, MDW, ADIFF, BMP, CBC, TROPHS #### [address] [address] WBC 10.4 10 3/mcL Normal 4.6-10.8 [facility] ([place]) Comment on above: Performed By: #### G FR, DIMER, ANEU, PRO, APTT, MDW, ADIFF, BMP, CBC, TROPHS #### [place] [address] DIMERon 02-22-2023 D-Dimer 250 ng/mL D-DU High 0-230 [facility] ([place]) Comment on above: Result Comment: The result [...] APTT, MDW, ADIFF, BMP, CBC, TROPHS #### [place] [id number] LABORATORYOrdered By: SYSTEM SYSTEM on 02-22-2023 Troponin [...] 0 - 230 ng/mL D-DU AO [facility] SS Comment on above: Interpretive Data: T he result of the D-Dimer test should be [...] Comment on above: Interpretive Data: Susana peterson [employer] (CHEST, 1991, 102:312S-25S) recommended therapeutic range for oral anticoagulant therapy is: LOW RISK: Prophylaxis of venous thrombosis INR: 2.0-3.0 Treatment of pulmonary embolism 2.0-3.0 Prevention of systemic embolism 2.0-3.0 HIGH RISK: Mechanical prosthetic valves 2.5-3.5 PT Coag (PPP) [Time] 10.2 s Invalid Interpretation Code 9.1 - 14.2 seconds AO [facility] SS PROon 02-22-2023 PT Coag (PPP) [Time] 10.2 s Normal 9.1-14.2 [facility] ([place]) Comment on above: Performed By: #### G FR, DIMER, ANEU, PRO, APTT, MDW, ADIFF, BMP, CBC, TROPHS ####[id number] [place], [place] [address] PT International Ratio 0.9 Normal [facility] ([place]) Comment on above: Result Comment: [employer] (CHEST, 1991, 102:312S-25S) recommended therapeutic range for oral anticoagulant therapy is: LOW RISK: Prophylaxis of venous thrombosis INR: 2.0-3.0 Treatment of pulmonary embolism 2.0-3.0 Prevention of systemic embolism 2.0-3.0 HIGH RISK: Mechanical prosthetic valves 2.5-3.5 Performed By: #### G FR, DIMER, ANEU, PRO, APTT, MDW, ADIFF, BMP, CBC, TROPHS ####[id number] [place], [place] [address] TROPHSon 02-22-2023 Troponin I High Sensitivity 9.9 ng/L Normal 0.0-51.4 [facility] ([place]) Comment on above: Performed By: #### T ROPHS #### [address] [address] Troponin I High Sensitivity 9.1 ng/L Normal 0.0-51.4 [facility] ([place]) Comment on above: Performed By: #### G FR, DIMER, ANEU, PRO, APTT, MDW, ADIFF, BMP, CBC, TROPHS #### [place] [address] [place], [place] [address] XR CHEST 1 VIEWon 02-22-2023 XR CHEST [...] Date: 02/22/2023 12:28:42 PM Ordering Provider: ELKE Rutledge [facility] ([place]) Absolute lymphocyte countOrd ered By: Jama Bustamante on 02-11-2023 Lymphocytes Auto (Unsp spec) [#/Vol] 1.85 10*3/uL 0.83-4.51 [facility] Basophil percentageOrdered B y: Jama Bustamante on 02-11-2023 Basophils/100 WBC (Bld) 0.4 % 0-1 [facility] Chloride [Moles/Vol] 103 mmol/L 98-[address] [facility] [address] [facility] Eosinophils/100 WBC (Bld) 1.7 % 0-5 [facility] Glucose [Mass/Vol] 98 mg/dL 74-106 [facility] Neutrophils (Bld) [#/Vol] 7.8 10*3/uL 2.0-7.7 [facility] Neutrophils/100 WBC (Bld) 68.8 % 47-70 [facility] Potassium [Moles/Vol] 3.4 mmol/L 3.5-5.1 [facility] Sodium [Moles/Vol] 138 mmol/L 136-145 [facility] WBC (Bld) [#/Vol] 11.3 10*3/uL 4.4-11.0 [facility] Blood erythrocytes count (nu mber/volume)Ordered By: Jama Bustamante on 02-11-2023 RBC (Bld) [#/Vol] 4.31 10*6/uL 4.2-5.4 [facility] Blood hemoglobin measurement (mass/volume)Ordered By: Jama Bustamante on 02-11-2023 Hemoglobin (Bld) [Mass/Vol] 12.2 g/dL 12.0-15.0 [facility] Blood lymphocytes/100 leukoc ytesOrdered By: Jama Bustamante on 02-11-2023 Lymphocytes/100 WBC (Bld) 16.4 % 19-41 [facility] Blood monocytes/100 leukocyt esOrdered By: Jama Bustamante on 02-11-2023 Monocytes/100 WBC (Bld) 12.0 % 0-10 [facility] Blood platelet mean volumeOr dered By: Jama Bustamante on 02-11-2023 Platelet mean volume (Bld) [Entitic vol] 9.7 fL 6.2-12.0 [facility] Determination of erythrocyte mean corpuscular volume (MCV)Ordered By: Jama Bustamante on 02-11-2023 MCV (RBC) [Entitic vol] 88.9 fL 81-99 [facility] Hematocrit Auto (Bld) [Volum e fraction]Ordered By: Jama Bustamante on 02-11-2023 Hematocrit (Bld) [Volume fraction] 38.3 % 37-47 [facility] Laboratory - Chemistry and C hemistry - challengeOrdered By: Jama Bustamante on 02-11-2023 CO2 [Moles/Vol] 30.0 mmol/L 21.0-32.0 [facility] Urea nitrogen/Creatinine [Mass ratio] 12.0 mg/mg 10-20 [facility] Laboratory - Hematology and Cell countsOrdered By: Jama Bustamante on 02-11-2023 Erythrocyte distribution width (RBC) [Entitic vol] 45.0 fL 35.1-43.9 [facility] Erythrocyte distribution width (RBC) [Ratio] 13.7 % 11.6-14.6 [facility] Immature granulocytes/100 WBC (Bld) 0.700 % 0.0-0.9 [facility] Comment on above: IG% - Immature Granu locytes (promyelocytes, myelocytes and metamyelocytes) > 1% indicates that a LEFT SHIFT is Present. MCH (RBC) [Entitic mass] 28.3 pg 27.0-32.0 [facility] Nucleated RBC/100 WBC (Bld) [Ratio] 0 % 0-5 [facility] MCHC Auto (RBC) [Mass/Vol]Or dered By: Jama Bustamante on 02-11-2023 MCHC (RBC) [Mass/Vol] 31.9 g/dL 32-36 [facility] Comment on above: Delta: 30.2 on 02/10 No Panel InformationOrdered By: Jama Bustamante on 02-11-2023 Estimated Creatinine Clearance Calc 72.33 ml/min [facility] Estimated GFR (MDRD) Amer 102 mL/min >60 [facility] Comment on above: GFR Calc Estimated GFR (MDRD) Non-Af Amer 85 mL/min >60 [facility] Comment on above: Non- GFR Calc Platelets bldOrdered By: Gricel Bustamante on 02-11-2023 Platelets (Bld) [#/Vol] 381 10*3/uL 150-450 [facility] Serum or plasma calcium scarlett urement (mass/volume)Ordered By: Jama Bustamante on 02-11-2023 Calcium [Mass/Vol] 8.9 mg/dL 8.5-10.1 [facility] Serum or plasma creatinine m easurement (mass/volume)Ordered By: Jama Bustamante on 02-11-2023 Creatinine [Mass/Vol] 0.75 mg/dL 0.55-1.02 [facility] Comment on above: The validity of the calculated GFR & GFRAA in patients over 70 years has not been determined. Clinical correlation is essential. Serum or plasma urea nitroge n measurement (mass/volume)Ordered By: Jama Bustamante on 02-11-2023 Urea nitrogen [Mass/Vol] 9 mg/dL 7-18 [facility] Thin prep Papanicolaou smear with manual screeningOrdered By: Jama Bustamante on 02-11-2023 Thin prep Papanicolaou smear with manual screening 5 5-15 [facility] Review by pathologistOrdered By: Jama Bustamante on 02-09-2023 Pathologist review Song (Unsp spec) [Interp] Reviewed [facility] Comment on above: Previous reported re sult: Vaishali brumfield Edited by: RGODANYELL on 02/10/23:1012Neutrophilic leukocytosis.Clinical correlation necessary.Dakota Lyle M.D. 02/10/23 AMENDED REPORT 02/10/23 1012 PATH REV previously reported as: Vaishali brumfield Basophil percentageOrdered B y: Omega Mejía on 02-08-2023 Lactate [Moles/Vol] 0.9 mmol/L 0.4-2.0 [facility] Basophil percentage >100 SEEN /hpf 0-5 [facility] Bilirubin [Mass/Vol] 1.30 mg/dL 0.20-1.00 [facility] Comment on above: For patients on eltr ombopag therapy, use of Dimension [place] TBIL is not recommended. Protein [Mass/Vol] 7.3 g/dL 6.4-8.2 [facility] Bilirubin Test strip Ql (U)O rdered By: Omega Mejía on 02-08-2023 Bilirubin Ql (U) 1 mg/dL Negative [facility] Comment on above: COLOR OF URINE MAY A FFECT DIPSTICK RESULTS. Blood manual differential co mment interpretation (narrative result)Ordered By: Omega Mejía on 02-08-2023 Manual differential comment Song (Bld) [Interp] SCANNED [facility] Culture, urineOrdered By: Jimmy Bustamante on 02-08-2023 Bacteria identified Cx Nom (U) Presumptive E. coli [facility] Ketones Test strip Ql (U)Ord ered By: Omega Mejía on 02-08-2023 Ketones Ql (U) 50 mg/dl Negative [facility] Laboratory - Chemistry and C hemistry - challengeOrdered By: Omega Mejía on 02-08-2023 ALP [Catalytic activity/Vol] 124 U/L 45-117 [facility] ALT [Catalytic activity/Vol] 18 U/L 13-56 [facility] Globulin (S) [Mass/Vol] 4.2 g/dL 2.2-4.2 [facility] Lipase [Catalytic activity/Vol] 14 U/L 13-75 [facility] Comment on above: Please note:LIPASE r evised reference range effective 22. New Lipase methodology. Expected to produce lower values than the previous assay method. NEW Reference Range: 13 - 75 U/L Laboratory - Chemistry and C hemistry - challengeOrdered By: Jama Bustamante on 02-08-2023 Magnesium [Mass/Vol] 1.8 mg/dL 1.6-2.6 [facility] Laboratory - Microbiology an d Antimicrobial susceptibilityOrdered By: Omega Mejía on 02-08-2023 Bacteria identified Cx Nom (Bld) Escherichia coli [facility] Bacteria identified Cx Nom (Bld) Escherichia coli [facility] Mucus LM Ql (Urine sed)Order ed By: Omega Mejía on 02-08-2023 Mucus Ql (Urine sed) 0 SEEN /hpf [facility] Nitrite Test strip Ql (U)Ord ered By: Omega Mejía on 02-08-2023 Nitrite Ql (U) Positive Negative [facility] Protein Test strip Ql (U)Ord ered By: Omega Mejía on 02-08-2023 Protein Ql (U) 100 mg/dl Negative [facility] Serum or plasma albumin scarlett urement (mass/volume)Ordered By: Omega Mejía on 02-08-2023 Albumin [Mass/Vol] 3.1 g/dL 3.2-5.0 [facility] Serum or plasma albumin/glob ulin mass ratioOrdered By: Omega Mejía on 02-08-2023 Albumin/Globulin [Mass ratio] 0.7 {ratio} 0.9-2.4 [facility] Squamous epithelial cells de tection in urine sediment by light microscopyOrdered By: Omega Mejía on 02-08-2023 Epithelial cells.squamous LM Ql (Urine sed) 0 SEEN /hpf 5-10 [facility] Thin prep Papanicolaou smear with manual screeningOrdered By: Omega Mejía on 02-08-2023 Thin prep Papanicolaou smear with manual screening 28 U/L 15-37 [facility] Urine blood detectionOrdered By: Omega Mejía on 02-08-2023 RBC Ql (U) 250 /ul Negative [facility] RBC Ql (U) > 100 SEEN /hpf 0-5 [facility] Urine clarityOrdered By: Marco Mejía on 02-08-2023 Clarity (U) Cloudy Clear [facility] Urine color determinationOrd ered By: Omega Mejía on 02-08-2023 Color (U) Brown Yellow [facility] Urine glucose detectionOrder ed By: Omega Mejía on 02-08-2023 Glucose Ql (U) Normal mg/dl Normal [facility] Urine leukocyte esterase det ection by dipstickOrdered By: Omega Mejía on 02-08-2023 Leukocyte esterase Test strip Ql (U) 500 /ul Negative [facility] Urine pHOrdered By: Omega Mejía on 02-08-2023 pH (U) 6.5 [pH] 5.0 - 8.0 [facility] Urine sediment bacteria coun t by microscopy (number/high power field)Ordered By: Omega Mejía on 02-08-2023 Bacteria LM.HPF (Urine sed) [#/Area] 1 /[HPF] None Seen [facility] Urine specific gravity measu rementOrdered By: Omega Mejía on 02-08-2023 Specific gravity (U) [Rel density] 1.015 1.002-1.030 [facility] Urobilinogen Auto test strip Ql (U)Ordered By: Omega Mejía on 02-08-2023 Urobilinogen Ql (U) 4 mg/dl Normal [facility] Absolute lymphocyte countOrd ered By: Dr. Rubi on 12-30-2022 Lymphocytes Auto (Unsp spec) [#/Vol] 3.48 10*3/uL 0.83-4.51 [facility] Basophil percentageOrdered B y: Dr. Rubi on 12-30-2022 Basophil percentage 0-5 SEEN /hpf 0-5 [facility] Basophils/100 WBC (Bld) 0.5 % 0-1 [facility] Bilirubin [Mass/Vol] 0.30 mg/dL 0.20-1.00 [facility] Comment on above: For patients on eltr ombopag therapy, use of Dimension [place] TBIL is not recommended. Chloride [Moles/Vol] 105 mmol/L 98-107 [facility] Eosinophils/100 WBC (Bld) 2.2 % 0-5 [facility] Glucose [Mass/Vol] 100 mg/dL 74-106 [facility] Comment on above: Fasting Glucose resu lt from 100 to 125 mg/dL suggests IMPAIRED HOMEOSTASIS per A.D.A. criteria. Neutrophils (Bld) [#/Vol] 9.2 10*3/uL 2.0-7.7 [facility] Neutrophils/100 WBC (Bld) 66.2 % 47-70 [facility] Potassium [Moles/Vol] 3.7 mmol/L 3.5-5.1 [facility] Protein [Mass/Vol] 7.7 g/dL 6.4-8.2 [facility] Sodium [Moles/Vol] 139 mmol/L 136-145 [facility] WBC (Bld) [#/Vol] 14.0 10*3/uL 4.4-11.0 [facility] Bilirubin Test strip Ql (U)O rdered By: Dr. Rubi on 12-30-2022 Bilirubin Ql (U) Negative Negative [facility] Blood erythrocytes count (nu mber/volume)Ordered By: Dr. Rubi on 12-30-2022 RBC (Bld) [#/Vol] 5.23 10*6/uL 4.2-5.4 [facility] Blood hemoglobin measurement (mass/volume)Ordered By: Dr. Rubi on 12-30-2022 Hemoglobin (Bld) [Mass/Vol] 14.9 g/dL 12.0-15.0 [facility] Blood lymphocytes/100 leukoc ytesOrdered By: Dr. Rubi on 12-30-2022 Lymphocytes/100 WBC (Bld) 24.9 % 19-41 [facility] Blood monocytes/100 leukocyt esOrdered By: Dr. Rubi on 12-30-2022 Monocytes/100 WBC (Bld) 5.8 % 0-10 [facility] Blood platelet mean volumeOr dered By: Dr. Rubi on 12-30-2022 Platelet mean volume (Bld) [Entitic vol] 9.1 fL 6.2-12.0 [facility] Determination of erythrocyte mean corpuscular volume (MCV)Ordered By: Dr. Rubi on 12-30-2022 MCV (RBC) [Entitic vol] 88.0 fL 81-99 [facility] Hematocrit Auto (Bld) [Volum e fraction]Ordered By: Dr. Rubi on 12-30-2022 Hematocrit (Bld) [Volume fraction] 46.0 % 37-47 [facility] Ketones Test strip Ql (U)Ord ered By: Dr. Rubi on 12-30-2022 Ketones Ql (U) Negative Negative [facility] Laboratory - Chemistry and C hemistry - challengeOrdered By: Dr. Rubi on 12-30-2022 ALP [Catalytic activity/Vol] 117 U/L 45-117 [facility] ALT [Catalytic activity/Vol] 16 U/L 13-56 [facility] CO2 [Moles/Vol] 29.0 mmol/L 21.0-32.0 [facility] Globulin (S) [Mass/Vol] 4.4 g/dL 2.2-4.2 [facility] Lipase [Catalytic activity/Vol] 32 U/L 13-75 [facility] Comment on above: Please note:LIPASE r evised reference range effective 22. New Lipase methodology. Expected to produce lower values than the previous assay method. NEW Reference Range: 13 - 75 U/L Urea nitrogen/Creatinine [Mass ratio] 16.6 mg/mg 10-20 [facility] Laboratory - Hematology and Cell countsOrdered By: Dr. Rubi on 12-30-2022 Erythrocyte distribution width (RBC) [Entitic vol] 43.5 fL 35.1-43.9 [facility] Erythrocyte distribution width (RBC) [Ratio] 13.5 % 11.6-14.6 [facility] Immature granulocytes/100 WBC (Bld) 0.400 % 0.0-0.9 [facility] Comment on above: IG% - Immature Granu locytes (promyelocytes, myelocytes and metamyelocytes) > 1% indicates that a LEFT SHIFT is Present. MCH (RBC) [Entitic mass] 28.5 pg 27.0-32.0 [facility] Nucleated RBC/100 WBC (Bld) [Ratio] 0 % 0-5 [facility] MCHC Auto (RBC) [Mass/Vol]Or dered By: Dr. Rubi on 12-30-2022 MCHC (RBC) [Mass/Vol] 32.4 g/dL 32-36 [facility] Mucus LM Ql (Urine sed)Order ed By: Dr. Rubi on 12-30-2022 Mucus Ql (Urine sed) 0 SEEN /hpf [facility] Nitrite Test strip Ql (U)Ord ered By: Dr. Rubi on 12-30-2022 Nitrite Ql (U) Negative Negative [facility] No Panel InformationOrdered By: Dr. Rubi on 12-30-2022 Estimated Creatinine Clearance Calc 60.27 ml/min [facility] Estimated GFR (MDRD) Amer 83 mL/min >60 [facility] Comment on above: GFR Calc Estimated GFR (MDRD) Non-Af Amer 68 mL/min >60 [facility] Comment on above: Non- GFR Calc Platelets bldOrdered By: Dr. Rubi on 12-30-2022 Platelets (Bld) [#/Vol] 533 10*3/uL 150-450 [facility] Protein Test strip Ql (U)Ord ered By: Dr. Rubi on 12-30-2022 Protein Ql (U) 15 mg/dl Negative [facility] Serum or plasma albumin scarlett urement (mass/volume)Ordered By: Dr. Rubi on 12-30-2022 Albumin [Mass/Vol] 3.3 g/dL 3.2-5.0 [facility] Serum or plasma albumin/glob ulin mass ratioOrdered By: Dr. Rubi on 12-30-2022 Albumin/Globulin [Mass ratio] 0.8 {ratio} 0.9-2.4 [facility] Serum or plasma calcium scarlett urement (mass/volume)Ordered By: Dr. Rubi on 12-30-2022 Calcium [Mass/Vol] 9.3 mg/dL 8.5-10.1 [facility] Serum or plasma creatinine m easurement (mass/volume)Ordered By: Dr. Rubi on 12-30-2022 Creatinine [Mass/Vol] 0.90 mg/dL 0.55-1.02 [facility] Comment on above: The validity of the calculated GFR & GFRAA in patients over 70 years has not been determined. Clinical correlation is essential. Serum or plasma urea nitroge n measurement (mass/volume)Ordered By: Dr. Rubi on 12-30-2022 Urea nitrogen [Mass/Vol] 15 mg/dL 7-18 [facility] Squamous epithelial cells de tection in urine sediment by light microscopyOrdered By: Dr. Rubi on 12-30-2022 Epithelial cells.squamous LM Ql (Urine sed) 0 SEEN /hpf 5-10 [facility] Thin prep Papanicolaou smear with manual screeningOrdered By: Dr. Rubi on 12-30-2022 Thin prep Papanicolaou smear with manual screening 15 U/L 15-37 [facility] Thin prep Papanicolaou smear with manual screening 5 5-15 [facility] Urine blood detectionOrdered By: Dr. Rubi on 12-30-2022 RBC Ql (U) 25 /ul Negative [facility] RBC Ql (U) 0 SEEN /hpf 0-5 [facility] Urine clarityOrdered By: Dr. Rubi on 12-30-2022 Clarity (U) Clear Clear [facility] Urine color determinationOrd ered By: Dr. Rubi on 12-30-2022 Color (U) Yellow Yellow [facility] Urine glucose detectionOrder ed By: Dr. Rubi on 12-30-2022 Glucose Ql (U) Normal mg/dl Normal [facility] Urine leukocyte esterase det ection by dipstickOrdered By: Dr. Rubi on 12-30-2022 Leukocyte esterase Test strip Ql (U) Negative Negative [facility] Urine pHOrdered By: Dr. Kate cheung on 12-30-2022 pH (U) 6.5 [pH] 5.0 - 8.0 [facility] Urine sediment bacteria coun t by microscopy (number/high power field)Ordered By: Dr. Rubi on 12-30-2022 Bacteria LM.HPF (Urine sed) [#/Area] 0 /[HPF] None Seen [facility] Urine specific gravity measu rementOrdered By: Dr. Rubi on 12-30-2022 Specific gravity (U) [Rel density] 1.015 1.002-1.030 [facility] Urobilinogen Auto test strip Ql (U)Ordered By: Dr. Rubi on 12-30-2022 Urobilinogen Ql (U) Normal mg/dl Normal [facility] Absolute lymphocyte countOrd ered By: Dr. Duke on 11-16-2022 Lymphocytes Auto (Unsp spec) [#/Vol] 1.90 10*3/uL 0.83-4.51 [facility] Basophil percentageOrdered B y: Dr. Duke on 11-16-2022 Basophils/100 WBC (Bld) 0.3 % 0-1 [facility] Bilirubin [Mass/Vol] 0.40 mg/dL 0.20-1.00 [facility] Comment on above: For patients on eltr ombopag therapy, use of Dimension [place] TBIL is not recommended. Chloride [Moles/Vol] 104 mmol/L 98-107 [facility] Eosinophils/100 WBC (Bld) 0.9 % 0-5 [facility] Glucose [Mass/Vol] 122 mg/dL 74-106 [facility] Comment on above: Fasting Glucose resu lt from 100 to 125 mg/dL suggests IMPAIRED HOMEOSTASIS per A.D.A. criteria. Neutrophils (Bld) [#/Vol] 24.6 10*3/uL 2.0-7.7 [facility] Neutrophils/100 WBC (Bld) 84.8 % 47-70 [facility] Potassium [Moles/Vol] 3.7 mmol/L 3.5-5.1 [facility] Protein [Mass/Vol] 8.6 g/dL 6.4-8.2 [facility] Sodium [Moles/Vol] 139 mmol/L 136-145 [facility] WBC (Bld) [#/Vol] 29.0 10*3/uL 4.4-11.0 [facility] Blood erythrocytes count (nu mber/volume)Ordered By: Dr. Duke on 11-16-2022 RBC (Bld) [#/Vol] 5.61 10*6/uL 4.2-5.4 [facility] Blood hemoglobin measurement (mass/volume)Ordered By: Dr. Duke on 11-16-2022 Hemoglobin (Bld) [Mass/Vol] 16.0 g/dL 12.0-15.0 [facility] Blood lymphocytes/100 leukoc ytesOrdered By: Dr. Duke on 11-16-2022 Lymphocytes/100 WBC (Bld) 6.6 % 19-41 [facility] Blood monocytes/100 leukocyt esOrdered By: Dr. Duke on 11-16-2022 Monocytes/100 WBC (Bld) 6.8 % 0-10 [facility] Blood platelet adequacy dete ction by light microscopyOrdered By: Dr. Duke on 11-16-2022 Platelets LM Ql (Bld) MOD INC ADEQ [facility] Blood platelet mean volumeOr dered By: Dr. Duke on 11-16-2022 Platelet mean volume (Bld) [Entitic vol] 8.9 fL 6.2-12.0 [facility] Determination of erythrocyte mean corpuscular volume (MCV)Ordered By: Dr. Duke on 11-16-2022 MCV (RBC) [Entitic vol] 89.5 fL 81-99 [facility] Hematocrit Auto (Bld) [Volum e fraction]Ordered By: Dr. Duke on 11-16-2022 Hematocrit (Bld) [Volume fraction] 50.2 % 37-47 [facility] Laboratory - Chemistry and C hemistry - challengeOrdered By: Dr. Duke on 11-16-2022 ALP [Catalytic activity/Vol] 131 U/L 45-117 [facility] ALT [Catalytic activity/Vol] 19 U/L 13-56 [facility] CO2 [Moles/Vol] 27.0 mmol/L 21.0-32.0 [facility] Globulin (S) [Mass/Vol] 4.8 g/dL 2.2-4.2 [facility] Lipase [Catalytic activity/Vol] 29 U/L 13-75 [facility] Comment on above: Please note:LIPASE r evised reference range effective 22. New Lipase methodology. Expected to produce lower values than the previous assay method. NEW Reference Range: 13 - 75 U/L Urea nitrogen/Creatinine [Mass ratio] 15.9 mg/mg 10-20 [facility] Laboratory - Hematology and Cell countsOrdered By: Dr. Duke on 11-16-2022 Erythrocyte distribution width (RBC) [Entitic vol] 46.5 fL 35.1-43.9 [facility] Erythrocyte distribution width (RBC) [Ratio] 14.3 % 11.6-14.6 [facility] Immature granulocytes/100 WBC (Bld) 0.600 % 0.0-0.9 [facility] Comment on above: IG% - Immature Granu locytes (promyelocytes, myelocytes and metamyelocytes) > 1% indicates that a LEFT SHIFT is Present. MCH (RBC) [Entitic mass] 28.5 pg 27.0-32.0 [facility] Nucleated RBC/100 WBC (Bld) [Ratio] 0 % 0-5 [facility] MCHC Auto (RBC) [Mass/Vol]Or dered By: Dr. Duke on 11-16-2022 MCHC (RBC) [Mass/Vol] 31.9 g/dL 32-36 [facility] No Panel InformationOrdered By: Dr. Duke on 11-16-2022 Estimated Creatinine Clearance Calc 50.70 ml/min [facility] Estimated GFR (MDRD) Amer 68 mL/min >60 [facility] Comment on above: GFR Calc Estimated GFR (MDRD) Non-Af Amer 56 mL/min >60 [facility] Comment on above: Non- GFR Calc Troponin I High Sensitivity 7 pg/mL 3.0-54.0 [facility] Comment on above: Please Note: New Satcey t Units and Gender Specific Reference Ranges. For more information see Policy Stat Procedure [place] High Sensitivity Troponin (TNIH) and attachments. Platelets bldOrdered By: Dr. Duek on 11-16-2022 Platelets (Bld) [#/Vol] 531 10*3/uL 150-450 [facility] Review by pathologistOrdered By: Dr. Duke on 11-16-2022 Pathologist review Song (Unsp spec) [Interp] Vaishali brumfield [facility] Pathologist review Song (Unsp spec) [Interp] Reviewed [facility] Comment on above: Previous reported re sult: Vaishali brumfield Edited by: RGOOD on 11/17/22:0959Neutrophilic leukocytosis.Polycythemia Thrombocytosis.Clinical correlation necessary.Dakota Lyle M.D. 11/17/22 AMENDED REPORT 11/17/22 0959 PATH REV previously reported as: November Serum or plasma albumin scarlett urement (mass/volume)Ordered By: Dr. Duke on 11-16-2022 Albumin [Mass/Vol] 3.8 g/dL 3.2-5.0 [facility] Serum or plasma albumin/glob ulin mass ratioOrdered By: Dr. Duke on 11-16-2022 Albumin/Globulin [Mass ratio] 0.8 {ratio} 0.9-2.4 [facility] Serum or plasma calcium scarlett urement (mass/volume)Ordered By: Dr. Duke on 11-16-2022 Calcium [Mass/Vol] 9.9 mg/dL 8.5-10.1 [facility] Serum or plasma creatinine m easurement (mass/volume)Ordered By: Dr. Duke on 11-16-2022 Creatinine [Mass/Vol] 1.07 mg/dL 0.55-1.02 [facility] Comment on above: The validity of the calculated GFR & GFRAA in patients over 70 years has not been determined. Clinical correlation is essential. Serum or plasma urea nitroge n measurement (mass/volume)Ordered By: Dr. Duke on 11-16-2022 Urea nitrogen [Mass/Vol] 17 mg/dL 7-18 [facility] Thin prep Papanicolaou smear with manual screeningOrdered By: Dr. Duke on 11-16-2022 Thin prep Papanicolaou smear with manual screening 22 U/L 15-37 [facility] Thin prep Papanicolaou smear with manual screening 8 5-15 [facility] XR Chest PA and Lateralon IMPRESSION: No acute radiographic abnormality. Photogrammetric Engineer: PSCB Transcribe Date/Time: Nov 13 2022 4:56P Dictated by : JUANITA SY MD This examination was interpreted and the report reviewed and electronically signed by: JUANITA SY MD on Nov 13 2022 4:57PM [facility] DIVISION OF RADIOLOGY * * *Final [...] shows degenerative changes. DIVISION OF RADIOLOGY Provider, Kezia Parrish [facility] - 11/13/2022 * * *Final Report* * [...] changes. IMPRESSION IMPRESSION: No acute radiographic abnormality. Photogrammetric Engineer: YAZMIN Transcribe Date/Time: Nov 13 2022 4:56P Dictated by : JUANITA SY MD This examination was interpreted and the report reviewed and electronically signed by: JUANITA SY MD on Nov 13 2022 4:57PM EST [facility] Radiology Study observation (narrative) [facility] XR Chest PA and LateralOrder ed By: [facility] Provider on 11-13-2022 [facility] Absolute lymphocyte countOrd ered By: Dr. Leos on 09-09-2022 Lymphocytes Auto (Unsp spec) [#/Vol] 4.21 10*3/uL 0.83-4.51 [facility] Basophil percentageOrdered B y: Dr. Leos on 09-09-2022 Basophil percentage 0 SEEN [facility]/100 WBC (Bld) 0.5 % 0-1 [facility] Bilirubin [Mass/Vol] 0.40 mg/dL 0.20-1.00 [facility] Comment on above: For patients on eltr ombopag therapy, use of Dimension [place] TBIL is not recommended. Chloride [Moles/Vol] 101 mmol/L 98-107 [facility] Eosinophils/100 WBC (Bld) 2.0 % 0-5 [facility] Glucose [Mass/Vol] 89 mg/dL 74-106 [facility] Neutrophils (Bld) [#/Vol] 12.6 10*3/uL 2.0-7.7 [facility] Neutrophils/100 WBC (Bld) 67.1 % 47-70 [facility] Potassium [Moles/Vol] 4.5 mmol/L 3.5-5.1 [facility] Comment on above: Moderate Hemolysis, Result may be falsely increased. Protein [Mass/Vol] 8.2 g/dL 6.4-8.2 [facility] Sodium [Moles/Vol] 137 mmol/L 136-145 [facility] WBC (Bld) [#/Vol] 18.7 10*3/uL 4.4-11.0 [facility] Bilirubin Test strip Ql (U)O rdered By: Dr. Leos on 09-09-2022 Bilirubin Ql (U) Negative Negative [facility] Blood erythrocytes count (nu mber/volume)Ordered By: Dr. Leos on 09-09-2022 RBC (Bld) [#/Vol] 5.29 10*6/uL 4.2-5.4 [facility] Blood hemoglobin measurement (mass/volume)Ordered By: Dr. Leos on 09-09-2022 Hemoglobin (Bld) [Mass/Vol] 14.8 g/dL 12.0-15.0 [facility] Blood lymphocytes/100 leukoc ytesOrdered By: Dr. Leos on 09-09-2022 Lymphocytes/100 WBC (Bld) 22.5 % 19-41 [facility] Blood monocytes/100 leukocyt esOrdered By: Dr. Leos on 09-09-2022 Monocytes/100 WBC (Bld) 7.4 % 0-10 [facility] Blood platelet mean volumeOr dered By: Dr. Leos on 09-09-2022 Platelet mean volume (Bld) [Entitic vol] 9.8 fL 6.2-12.0 [facility] Determination of erythrocyte mean corpuscular volume (MCV)Ordered By: Dr. Leos on 09-09-2022 MCV (RBC) [Entitic vol] 89.2 fL 81-99 [facility] Hematocrit Auto (Bld) [Volum e fraction]Ordered By: Dr. Leos on 09-09-2022 Hematocrit (Bld) [Volume fraction] 47.2 % 37-47 [facility] Ketones Test strip Ql (U)Ord ered By: Dr. Leos on 09-09-2022 Ketones Ql (U) Negative Negative [facility] Laboratory - Chemistry and C hemistry - challengeOrdered By: Dr. Leos on 09-09-2022 ALP [Catalytic activity/Vol] 128 U/L 45-117 [facility] ALT [Catalytic activity/Vol] 22 U/L 13-56 [facility] CO2 [Moles/Vol] 29.0 mmol/L 21.0-32.0 [facility] Globulin (S) [Mass/Vol] 4.7 g/dL 2.2-4.2 [facility] Urea nitrogen/Creatinine [Mass ratio] 15.5 mg/mg 10-20 [facility] Laboratory - Hematology and Cell countsOrdered By: Dr. Leos on 09-09-2022 Erythrocyte distribution width (RBC) [Entitic vol] 44.9 fL 35.1-43.9 [facility] Erythrocyte distribution width (RBC) [Ratio] 13.7 % 11.6-14.6 [facility] Immature granulocytes/100 WBC (Bld) 0.500 % 0.0-0.9 [facility] Comment on above: IG% - Immature Granu locytes (promyelocytes, myelocytes and metamyelocytes) > 1% indicates that a LEFT SHIFT is Present. MCH (RBC) [Entitic mass] 28.0 pg 27.0-32.0 [facility] Nucleated RBC/100 WBC (Bld) [Ratio] 0 % 0-5 [facility] MCHC Auto (RBC) [Mass/Vol]Or dered By: Dr. Leos on 09-09-2022 MCHC (RBC) [Mass/Vol] 31.4 g/dL 32-36 [facility] Mucus LM Ql (Urine sed)Order ed By: Dr. Leos on 09-09-2022 Mucus Ql (Urine sed) 0 SEEN /hpf [facility] Nitrite Test strip Ql (U)Ord ered By: Dr. Leos on 09-09-2022 Nitrite Ql (U) Negative Negative [facility] No Panel InformationOrdered By: Dr. Leos on 09-09-2022 Estimated Creatinine Clearance Calc 60.27 ml/min [facility] Estimated GFR (MDRD) Amer 83 mL/min >60 [facility] Comment on above: GFR Calc Estimated GFR (MDRD) Non-Af Amer 69 mL/min >60 [facility] Comment on above: Non- GFR Calc Platelets bldOrdered By: Dr. Leos on 09-09-2022 Platelets (Bld) [#/Vol] 580 10*3/uL 150-450 [facility] Protein Test strip Ql (U)Ord ered By: Dr. Leos on 09-09-2022 Protein Ql (U) Negative Negative [facility] Serum or plasma albumin scarlett urement (mass/volume)Ordered By: Dr. Leos on 09-09-2022 Albumin [Mass/Vol] 3.5 g/dL 3.2-5.0 [facility] Serum or plasma albumin/glob ulin mass ratioOrdered By: Dr. Leos on 09-09-2022 Albumin/Globulin [Mass ratio] 0.7 {ratio} 0.9-2.4 [facility] Serum or plasma calcium scarlett urement (mass/volume)Ordered By: Dr. Leos on 09-09-2022 Calcium [Mass/Vol] 9.6 mg/dL 8.5-10.1 [facility] Serum or plasma creatinine m easurement (mass/volume)Ordered By: Dr. Leos on 09-09-2022 Creatinine [Mass/Vol] 0.90 mg/dL 0.55-1.02 [facility] Comment on above: The validity of the calculated GFR & GFRAA in patients over 70 years has not been determined. Clinical correlation is essential. Serum or plasma urea nitroge n measurement (mass/volume)Ordered By: Dr. Leos on 09-09-2022 Urea nitrogen [Mass/Vol] 14 mg/dL 7-18 [facility] Squamous epithelial cells de tection in urine sediment by light microscopyOrdered By: Dr. Leos on 09-09-2022 Epithelial cells.squamous LM Ql (Urine sed) 0 SEEN /hpf 5-10 [facility] Thin prep Papanicolaou smear with manual screeningOrdered By: Dr. Leos on 09-09-2022 Thin prep Papanicolaou smear with manual screening 30 U/L 15-37 [facility] Comment on above: Moderate Hemolysis, Result may be falsely increased. Thin prep Papanicolaou smear with manual screening 7 5-15 [facility] Urine blood detectionOrdered By: Dr. Leos on 09-09-2022 RBC Ql (U) 10 /ul Negative [facility] RBC Ql (U) 0 SEEN /hpf 0-5 [facility] Urine clarityOrdered By: Dr. Leos on 09-09-2022 Clarity (U) Clear Clear [facility] Urine color determinationOrd ered By: Dr. Leos on 09-09-2022 Color (U) Yellow Yellow [facility] Urine glucose detectionOrder ed By: Dr. Leos on 09-09-2022 Glucose Ql (U) Normal mg/dl Normal [facility] Urine leukocyte esterase det ection by dipstickOrdered By: Dr. Leos on 09-09-2022 Leukocyte esterase Test strip Ql (U) Negative Negative [facility] Urine pHOrdered By: Dr. Jada medina on 09-09-2022 pH (U) 7.0 [pH] 5.0 - 8.0 [facility] Urine sediment bacteria coun t by microscopy (number/high power field)Ordered By: Dr. Leos on 09-09-2022 Bacteria LM.HPF (Urine sed) [#/Area] 0 /[HPF] None Seen [facility] Urine specific gravity measu rementOrdered By: Dr. Leos on 09-09-2022 Specific gravity (U) [Rel density] 1.010 1.002-1.030 [facility] Urobilinogen Auto test strip Ql (U)Ordered By: Dr. Leos on 09-09-2022 Urobilinogen Ql (U) Normal mg/dl Normal [facility] EKGon 04-26-2021 Electrocardiogram Procedure Date and Time: [...] on 04/27/2021 4:40:31 AM Referred By: Vincenzo Gallardo Confirmed By:Hilario GOMEZ M.D.FACC Blayne DDandT: 04/26/21 1556 TDandT: [facility] PATIENT NAME: SAVANNAH IRVIN [facility] REC #: [id number] [place] [address] ADMIT DATE: DISCHARGE DATE: 04/26/21 ATTENDING PHY: Vincenzo Gallardo MD ELECTROCARDIOGRAM REPORT CLB cc: [facility] PATIENT NAME: [facility] MED[facility] REC #: [id number] [place] [address] ADMIT DATE: DISCHARGE DATE: 04/26/21 ATTENDING PHY: Vincenzo Gallardo MD ELECTROCARDIOGRAM REPORT Normal [facility] Rashid 04-26-2021 EMERGENCY PHYSICIAN REPORT This is a preliminary report only, as the practitioner review and authentication has not occurred. Normal [facility] ER PHYSICIAN ASSESSMENT RECORDS : Discharge Report Event Time: 04/26/2021 19:28 : FlexChartData Event Time: 04/26/2021 20:00 Status: Signed [facility] Savannah Brandee [[id number]] Attending Physician 55 / F / 1965 Chart (V2b) Chart created at 04/26/2021 19:22 by Vincenzo Gallardo Chart closed at 04/26/2021 19:27 Entry in Emergency Department at 04/26/2021 15:21 Patient Name: Savannah Irvin Record Number: [id number] Date: 04/26/2021 19:22 Entered Department at: 04/26/2021 [...] chest pain, just shortness of breath and [facility] PATIENT NAME: SAVANNAH IRVIN [address] [facility] Hyman MEDICAL REC #: [id number] [place] [address] EMERGENCY DEPARTMENT REPORT EMERGENCY DEPARTMENT PHYSICIAN wheezing. [...] PORTABLE CHEST CLINICAL HISTORY: Dyspnea COMPARISON: None. [facility] PATIENT NAME: SAVANNAH IRVIN [facility] [address] Hyman MEDICAL REC #: [id number] [place] [id number] EMERGENCY DEPARTMENT REPORT EMERGENCY DEPARTMENT PHYSICIAN RESULT: [...] Results, Diagnosis and (more content not included)... [facility] PORTABLE CHESTon 04-26-2021 PORTABLE CHEST PORTABLE CHEST CLINICAL HISTORY: Dyspnea COMPARISON: None. RESULT: Lungs are clear. No cardiomegaly. No pulmonary edema. IMPRESSION: No acute pulmonary process. This report was electronically signed by Michelle Galeana MD 04/26/2021 4:21 PM Reported By: MICHELLE GALEANA MD Signed By: MICHELLE GALEANA MD [facility] PROGRESSon 04-02-2017 PROGRESS HNO ID: [id number]: Kellee CasonCtManuelito Appiah CTService: (none)Author Type: Clinical TechnicianType: Progress NotesFiled: 04/02/2017 10:10 AMNote Text:NAME:Savannah IrvinDATE: April 02, 2017CCF#: [id number] Extremity X-Ray(s): Shoulder, AP / TRUE AP / AXILLARY / SUPRA OUTLET Bilateral COMPLETEDTECH ID SIGN: KELLEE APPIAH [facility] XR SHLDR >/=3V AP/DORIS AP/OTH R [...] uncertain2. Suspected remote, healed proximal left humeral fracture.Critical Care Nurse Practitioner ist: PSCB Transcribe Date/Time: Apr 02 2017 3:53PDictated by : ANDRE BISHOP MDThis examination was interpreted and the report reviewed and electronically signed by: ANDRE BISHOP MD on Apr 02 2017 3:55PM [id number] ACN [facility] XR SHLDR >/=3V AP/DORIS AP/OTH R [...] uncertain2. Suspected remote, healed proximal left humeral fracture.Critical Care Nurse Practitioner ist: PSCB Transcribe Date/Time: Apr 02 2017 3:53PDictated by : ANDRE BISHOP MDThis examination was interpreted and the report reviewed and electronically signed by: ANDRE BISHOP MD on Apr 02 2017 3:55PM [id number] ACN Normal [facility] Office Visit: Hospital F/Uon 01-13-2017 Documentation of current medications (procedure) Done Invalid Interpretation Code [facility] Work Phone: Smoking cessation education (procedure) yes Invalid Interpretation Code [facility] Work Phone: Tobacco smoking status NHIS Never Invalid Interpretation Code [facility] Work Phone: Tobacco use [facility] Current every day smoker Invalid Interpretation Code [facility] Work Phone: Clinical Lists Update: 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-22-2016 BUN/Creatinine Ratio 20.0 mg/mg Invalid Interpretation Code [facility] Work Phone: Calcium 9.3 mg/dL Invalid Interpretation Code [facility] Work Phone: Chloride 103 mmol/L Invalid Interpretation Code [facility] Work Phone: CO2 24.0 mmol/L Invalid Interpretation Code [facility] Work Phone: Creatinine 0.80 mg/dL Invalid Interpretation Code [facility] Work Phone: Glucose 168 mg/dL Invalid Interpretation Code [facility] Work Phone: Hematocrit (HCT) 29.9 % Invalid Interpretation Code [facility] Work Phone: Hemoglobin (HGB) 9.0 g/dL Invalid Interpretation Code [facility] Work Phone: Platelets 635 10*3/mm3 Invalid Interpretation Code [facility] Work Phone: Potassium 3.8 mmol/L Invalid Interpretation Code [facility] Work Phone: Sodium 138 mmol/L Invalid Interpretation Code [facility] Work Phone: [phone] Urea nitrogen 16 mg/dL Invalid Interpretation Code [facility] Work Phone: WBC (Leukocytes) 15.5 10*3/uL Invalid Interpretation Code [facility] Work Phone: Clinical Lists Update: 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 Phone: Lab Report: Miscellaneous La b Procedureon 12-13-2015 GE use only - for [employer] import when terms are not otherwise specified . Invalid Interpretation Code [facility] Phone: Lab Report: LDHon 12-06-2015 lactate dehydrogenase - serum 243 U/L Invalid Interpretation Code 84-246 [facility] Work Phone: Lab Report: Uric Acidon 11-17 Urate 3.4 mg/dL Invalid Interpretation Code 2.6-6.0 [facility] Work Phone: [phone] Vital Signs Date Time Vital Sign Value Performing Clinician Facility 01-05-2025 00:29-0400 Body temperature 98.1 [degF] Dr. Ivette Welsh MD Work Phone: [facility] 01-05-2025 00:29-0400 Diastolic blood pressure 66 mm[Hg] Dr. Ivette Welsh MD Work Phone: [facility] 01-05-2025 00:29-0400 Heart rate 93 /min Dr. Ivette Welsh MD Work Phone: 6(233)878-863698 [place] [address] 01-05-2025 00:29-0400 Respiratory rate 16 /min Dr. Ivette Welsh MD Work Phone: 3(611)[phone] [place] [address] 01-05-2025 00:29-0400 SaO2% (BldA) [Mass fraction] 95 % Dr. Ivette Welsh MD Work Phone: 1(125)062-742995 [place] [address] 01-05-2025 00:29-0400 Systolic blood pressure 123 mm[Hg] Dr. Ivette Welsh MD Work Phone: 5(914)515-347095 [place] [address] 01-04-2025 20:55-0400 Body height 162.[address] Ivette Welsh MD Work Phone: 5(875)982-015395 [place] [address] 01-04-2025 20:55-0400 Body mass index (BMI) [Ratio] 31.7 kg/m2 Dr. Ivette Welsh MD Work Phone: 6(805)473-716698 [place] [address] 01-04-2025 20:55-0400 Body weight 83.[address] Ivette Welsh MD Work Phone: [facility] 08-23-2024 16:25-0500 Body mass index (BMI) [Ratio] 28.18 kg/m2 Marcy Anthony APRN.LAW OFFICE ASSISTANT Work Phone: [facility] 08-23-2024 16:25-0500 Body temperature 98.6 [degF] Marcy Anthony AUTOMATIC PATTERN EDGER.LAW OFFICE ASSISTANT Work Phone: [facility] 08-23-2024 16:25-0500 Body weight 76.8 kg Marcy Anthony AUTOMATIC PATTERN EDGER.LAW OFFICE ASSISTANT Work Phone: [facility] 08-23-2024 16:25-0500 Diastolic blood pressure 102 mm[Hg] Marcy Anthony APRN.LAW OFFICE ASSISTANT Work Phone: [facility] 08-23-2024 16:25-0500 Heart rate 95 /min Marcy Raj AUTOMATIC PATTERN EDGER.LAW OFFICE ASSISTANT Work Phone: [facility] 08-23-2024 16:25-0500 Respiratory rate 20 /min Marcy Raj AUTOMATIC PATTERN EDGER.LAW OFFICE ASSISTANT Work Phone: [facility] 08-23-2024 16:25-0500 SaO2% (BldA) [Mass fraction] 96 % Marcy Raj AUTOMATIC PATTERN EDGER.LAW OFFICE ASSISTANT Work Phone: [facility] 08-23-2024 16:25-0500 Systolic blood pressure 182 mm[Hg] Marcy Raj AUTOMATIC PATTERN EDGER.LAW OFFICE ASSISTANT Work Phone: [facility] 07-24-2024 14:12-0500 Body mass index (BMI) [Ratio] 26.52 kg/m2 Ivette Welsh MD Work Phone: [facility] 07-24-2024 14:12-0500 Body weight 72.3 kg Ivette Welsh MD Work Phone: [facility] 07-24-2024 14:12-0500 Diastolic blood pressure 88 mm[Hg] Ivette Welsh MD Work Phone: [facility] 07-24-2024 14:12-0500 Heart rate 110 /min Ivette Welsh MD Work Phone: [facility] 07-24-2024 14:12-0500 Respiratory rate 20 /min Ivette Welsh MD Work Phone: [facility] 07-24-2024 14:12-0500 SaO2% (BldA) [Mass fraction] 92 % Ivette Welsh MD Work Phone: [facility] 07-24-2024 14:12-0500 Systolic blood pressure 138 mm[Hg] Ivette Welsh MD Work Phone: [facility] 07-12-2024 20:06-0500 Diastolic Blood Pressure Non-Invasive 85 mm[Hg] KELLIE MARTINEZ MD [facility] 07-12-2024 20:06-0500 Heart rate 88 /min KELLIE MARTINEZ MD [facility] 07-12-2024 20:06-0500 Respiratory rate 18 /min KELLIE MARTINEZ MD [facility] 07-12-2024 20:06-0500 Systolic Blood Pressure Non-Invasive 157 mm[Hg] KELLIE MARTINEZ MD [facility] 07-12-2024 19:28-0500 Heart rate 91 /min KELLIE MARTINEZ MD [facility] 07-12-2024 19:28-0500 Respiratory rate 20 /min KELLIE MARTINEZ MD [facility] 07-12-2024 19:17-0500 Body temperature 98.06 [degF] KELLIE MARTINEZ MD [facility] 07-12-2024 19:17-0500 Diastolic Blood Pressure Non-Invasive 97 mm[Hg] KELLIE MARTINEZ MD [facility] 07-12-2024 19:17-0500 Heart rate 97 /min KELLIE MARTINEZ MD [facility] 07-12-2024 19:17-0500 Respiratory rate 20 /min KELLIE MARTINEZ MD [facility] 07-12-2024 19:17-0500 Systolic Blood Pressure Non-Invasive 167 mm[Hg] KELLIE MARTINEZ MD [facility] 07-01-2023 22:15-0500 Blood Pressure Location JOSHUA FERNANDEZ DO [facility] 07-01-2023 22:15-0500 Blood Pressure Method JOSHUA FROMMELT D O [facility] 07-01-2023 22:15-0500 Diastolic Blood Pressure Non-Invasive 89 mm[Hg] JOSHUA FROMMELT DO [facility] 07-01-2023 22:15-0500 Reason For Taking VItal Signs JOSHUA FROMMELT DO [facility] 07-01-2023 22:15-0500 Respiratory rate 20 /min JOSHUA FROMMELT DO [facility] 07-01-2023 22:15-0500 Systolic Blood Pressure Non-Invasive 153 mm[Hg] JOSHUA FROMMELT DO [facility] 07-01-2023 21:03-0500 Blood Pressure Location JOSHUA FROMMELT DO [facility] 07-01-2023 21:03-0500 Blood Pressure Method JOSHUA HAMILTONT D O [facility] 07-01-2023 21:03-0500 Diastolic Blood Pressure Non-Invasive 89 mm[Hg] JOSHUA FROMMELT DO [facility] 07-01-2023 21:03-0500 Reason For Taking VItal Signs JOSHUA FROMMELT DO [facility] 07-01-2023 21:03-0500 Respiratory rate 19 /min OJSHUA FROMMELT DO [facility] 07-01-2023 21:03-0500 Systolic Blood Pressure Non-Invasive 147 mm[Hg] JOSHUA FROMMELT DO [facility] 07-01-2023 20:08-0500 Blood Pressure Location JOSHUA FROMMELT DO [facility] 07-01-2023 20:08-0500 Blood Pressure Method JOSHUA FERNANDEZ D O [facility] 07-01-2023 20:08-0500 Diastolic Blood Pressure Non-Invasive 103 mm[Hg] JOSHUA HAMILTONT DO [facility] 07-01-2023 20:08-0500 Heart rate 98 /min JOSHUA HAMILTONT DO [facility] 07-01-2023 20:08-0500 Reason For Taking VItal Signs JOSHUA HAMILTONT DO [facility] 07-01-2023 20:08-0500 Respiratory rate 22 /min JOSHUA HAMILTONT DO [facility] 07-01-2023 20:08-0500 Systolic Blood Pressure Non-Invasive 199 mm[Hg] JOSHUA HAMILTONT DO [facility] 07-01-2023 19:38-0500 Body height 165.1 cm JOSHUA HAMILTONT DO [facility] 07-01-2023 19:38-0500 Body temperature 98.42 [degF] JOSHUA HAMILTONT DO [facility] 07-01-2023 19:38-0500 Body weight 75 kg JOSHUA HAMILTONT DO [facility] 07-01-2023 19:38-0500 Heart rate 111 /min JOSHUA HAMILTONT DO [facility] 06-05-2023 13:53-0500 Body temperature 98 [degF] Dr. Ivette Welsh Work Phone: [facility] 06-05-2023 13:53-0500 Diastolic blood pressure 86 mm[Hg] Dr. Ivette Welsh Work Phone: 7(945)690-626195 [place] [address] 06-05-2023 13:53-0500 Heart rate 102 /min Dr. Ivette Welsh Work Phone: 3(055)536-568095 [place] [address] 06-05-2023 13:53-0500 Respiratory rate 18 /min Dr. Ivette Welsh Work Phone: 0(053)125-930695 [place] [address] 06-05-2023 13:53-0500 SaO2% (BldA) [Mass fraction] 95 % Dr. Ivette Welsh Work Phone: 3(992)668-793795 [place] [address] 06-05-2023 13:53-0500 Systolic blood pressure 150 mm[Hg] Dr. Ivette Welsh Work Phone: 1(236)158-233595 [place] [address] 06-05-2023 12:10-0500 Inhaled oxygen flow rate 0 L/min Dr. Ivette Welsh Work Phone: 9(958)505-209295 [place] [address] 06-05-2023 00:39-0500 Body height 162.[address] Ivette Welsh Work Phone: 2(693)414-198895 [place] [address] 06-05-2023 00:39-0500 Body mass index (BMI) [Ratio] 28.9 kg/m2 Dr. Ivette Welsh Work Phone: 5(002)214-030195 [place] [address] 06-05-2023 00:39-0500 Body weight 76.[address] Ivette Welsh Work Phone: 3(964)344-751795 [place] [address] 06-05-2023 00:18-0500 Diastolic blood pressure 103 mm[Hg] Dr. Ivette Welsh Work Phone: 4(027)065-263195 [place] [address] 06-05-2023 00:18-0500 Heart rate 92 /min Dr. Ivette Welsh Work Phone: 0(996)286-288895 [place] [address] 06-05-2023 00:18-0500 Respiratory rate 25 /min Dr. Ivette Welsh Work Phone: 7(820)771-264795 [place] [address] 06-05-2023 00:18-0500 SaO2% (BldA) [Mass fraction] 97 % Dr. Ivette Welsh Work Phone: [facility] 06-05-2023 00:18-0500 Systolic blood pressure 185 mm[Hg] Dr. Ivette Welsh Work Phone: [facility] 06-04-2023 20:23-0500 Body height 162.[address] Ivette Welsh Work Phone: [facility] 06-04-2023 20:23-0500 Body mass index (BMI) [Ratio] 28.8 kg/m2 Dr. Ivette Welsh Work Phone: [facility] 06-04-2023 20:23-0500 Body temperature 98 [degF] Dr. Ivette Welsh Work Phone: [facility] 06-04-2023 20:23-0500 Body weight 76.[address] Ivette Welsh Work Phone: [facility] 02-22-2023 14:24-0400 Diastolic Blood Pressure Non-Invasive 89 1 ELKE GARCIA MD [facility] 02-22-2023 14:24-0400 Heart rate 83 /min ELKE GARCIA MD [facility] 02-22-2023 14:24-0400 Respiratory rate 18 /min ELKE GARCIA MD [facility] 02-22-2023 14:24-0400 Systolic Blood Pressure Non-Invasive 184 1 ELKE GARCIA MD [facility] 02-22-2023 13:57-0400 Diastolic Blood Pressure Non-Invasive 91 1 ELKE GARCIA MD [facility] 02-22-2023 13:57-0400 Heart rate 73 /min ELKE GARCIA MD [facility] 02-22-2023 13:57-0400 Respiratory rate 18 /min ELKE GARCIA MD [facility] 02-22-2023 13:57-0400 Systolic Blood Pressure Non-Invasive 179 1 ELKE GARCIA MD [facility] 02-22-2023 13:09-0400 Diastolic Blood Pressure Non-Invasive 106 1 ELKE GARCIA MD [facility] 02-22-2023 13:09-0400 Heart rate 87 /min ELKE GARCIA MD [facility] 02-22-2023 13:09-0400 Respiratory rate 20 /min ELKE GARCIA MD [facility] 02-22-2023 13:09-0400 Systolic Blood Pressure Non-Invasive 220 1 ELKE GARCIA MD [facility] 02-22-2023 12:19-0400 Reason For Taking VItal Signs ELKE GARCIA MD [facility] 02-22-2023 11:49-0400 Body height 165.1 cm ELKE GARCIA MD [facility] 02-22-2023 11:49-0400 Body temperature 98.24 [degF] ELKE GARCIA MD [facility] 02-22-2023 11:49-0400 Body weight 75.6 kg ELKE GARCIA MD [facility] 02-22-2023 11:49-0400 Heart rate 92 /min ELKE GARCIA MD [facility] 02-18-2023 10:20-0400 Diastolic blood pressure 98 mm[Hg] Ivette Welsh MD Work Phone: [facility] 02-18-2023 10:20-0400 Systolic blood pressure 154 mm[Hg] Ivette Welsh MD Work Phone: [facility] 02-18-2023 10:18-0400 Body weight 76.75 kg Ivette Welsh MD Work Phone: [facility] 02-18-2023 10:18-0400 Heart rate 98 /min Ivette Welsh MD Work Phone: [facility] 02-18-2023 10:18-0400 Respiratory rate 20 /min Ivette Welsh MD Work Phone: [facility] 02-11-2023 09:00-0400 Body temperature 97.8 [degF] Dr. Ivette Welsh Work Phone: [facility] 02-11-2023 09:00-0400 Diastolic blood pressure 89 mm[Hg] Dr. Ivette Welsh Work Phone: [facility] 02-11-2023 09:00-0400 Heart rate 89 /min Dr. Ivette Welsh Work Phone: [facility] 02-11-2023 09:00-0400 Respiratory rate 16 /min Dr. Ivette Welsh Work Phone: [facility] 02-11-2023 09:00-0400 SaO2% (BldA) [Mass fraction] 96 % Dr. Ivette Welsh Work Phone: [facility] 02-11-2023 09:00-0400 Systolic blood pressure 132 mm[Hg] Dr. Ivette Welsh Work Phone: [facility] 02-11-2023 06:37-0400 Heart rate 82 /min Dr. Ivette Welsh Work Phone: [facility] 02-11-2023 06:37-0400 Respiratory rate 20 /min Dr. Ivette Welsh Work Phone: [facility] 02-11-2023 06:37-0400 SaO2% (BldA) [Mass fraction] 91 % Dr. Ivette Welsh Work Phone: [facility] 02-11-2023 05:45-0400 Body mass index (BMI) [Ratio] 28.3 kg/m2 Dr. Ivette Welsh Work Phone: [facility] 02-11-2023 05:45-0400 Body weight 75.[address] Ivette Welsh Work Phone: [facility] 02-11-2023 04:10-0400 Body temperature 97.5 [degF] Dr. Ivette Welsh Work Phone: 9(542)429-059020 [place] [address] 02-11-2023 04:10-0400 Diastolic blood pressure 82 mm[Hg] Dr. Ivette Welsh Work Phone: 2(539)395-404784 [address] 02-11-2023 04:10-0400 Systolic blood pressure 130 mm[Hg] Dr. Ivette Welsh Work Phone: [facility] 02-10-2023 08:24-0400 Inhaled oxygen flow rate 1 L/min Dr. Ivette Welsh Work Phone: [facility] 02-08-2023 16:09-0400 Body height 162.[address] Ivette Welsh Work Phone: [facility] 12-30-2022 20:33-0400 Body height 162.56 cm [facility] 12-30-2022 20:33-0400 Body mass index (BMI) [Ratio] 30.4 kg/m2 [facility] 12-30-2022 20:33-0400 Body temperature 98 [degF] [facility] 12-30-2022 20:33-0400 Body weight 80.3 kg [facility] 12-30-2022 20:33-0400 Diastolic blood pressure 100 mm[Hg] [facility] 12-30-2022 20:33-0400 Heart rate 102 /min [facility] 12-30-2022 20:33-0400 Respiratory rate 18 /min [facility] 12-30-2022 20:33-0400 SaO2% (BldA) [Mass fraction] 100 % [facility] 12-30-2022 20:33-0400 Systolic blood pressure 164 mm[Hg] [facility] 11-16-2022 08:16-0400 Body temperature 98.1 [degF] [facility] 11-16-2022 08:16-0400 Diastolic blood pressure 81 mm[Hg] [facility] 11-16-2022 08:16-0400 Heart rate 88 /min [facility] 11-16-2022 08:16-0400 Respiratory rate 16 /min [facility] 11-16-2022 08:16-0400 SaO2% (BldA) [Mass fraction] 98 % [facility] 11-16-2022 08:16-0400 Systolic blood pressure 143 mm[Hg] [facility] 11-16-2022 02:22-0400 Body height 162.56 cm [facility] 11-16-2022 02:22-0400 Body mass index (BMI) [Ratio] 31.3 kg/m2 [facility] 11-16-2022 02:22-0400 Body weight 82.8 kg [facility] 10-12-2022 00:15-0400 Diastolic blood pressure 84 mm[Hg] [facility] 10-12-2022 00:15-0400 Heart rate 85 /min [facility] 10-12-2022 00:15-0400 Respiratory rate 15 /min [facility] 10-12-2022 00:15-0400 SaO2% (BldA) [Mass fraction] 98 % [facility] 10-12-2022 00:15-0400 Systolic blood pressure 143 mm[Hg] [facility] 10-11-2022 22:03-0400 Body mass index (BMI) [Ratio] 30.5 kg/m2 [facility] 10-11-2022 22:03-0400 Body weight 80.8 kg [facility] 10-11-2022 20:41-0400 Body height 162.56 cm [facility] 10-11-2022 20:41-0400 Body temperature 97.7 [degF] [facility] 09-09-2022 05:58-0500 Diastolic blood pressure 87 mm[Hg] [facility] 09-09-2022 05:58-0500 Heart rate 75 /min [facility] 09-09-2022 05:58-0500 Respiratory rate 20 /min [facility] 09-09-2022 05:58-0500 SaO2% (BldA) [Mass fraction] 96 % [facility] 09-09-2022 05:58-0500 Systolic blood pressure 156 mm[Hg] [facility] 09-09-2022 02:50-0500 Body height 162.56 cm [facility] 09-09-2022 02:50-0500 Body mass index (BMI) [Ratio] 30.9 kg/m2 [facility] 09-09-2022 02:50-0500 Body temperature 96.9 [degF] [facility] 09-09-2022 02:50-0500 Body weight 81.6 kg [facility] 01-13-2017 14:13-0400 BMI (Body Mass Index) 35.27 kg/m2 Caren Sujataho SHEET METAL CONTRACTOR [facility] Work Phone: 01-13-2017 14:13-0400 Body Temperature 98.8 [degF] Caren Yensho SHEET METAL CONTRACTOR [facility] Work Phone: 01-13-2017 14:13-0400 BP Diastolic 102 mm[Hg] Caren Yensho SHEET METAL CONTRACTOR [facility] Work Phone: 01-13-2017 14:13-0400 BP Systolic 140 mm[Hg] Caren Yensho SHEET METAL CONTRACTOR [facility] Work Phone: 01-13-2017 14:13-0400 Height 165.1 cm Caren Samsonnsho SHEET METAL CONTRACTOR [facility] Work Phone: 01-13-2017 14:13-0400 Pulse (Heart Rate) 90 /min Caren Samsonnsho SHEET METAL CONTRACTOR [facility] Work Phone: 01-13-2017 14:13-0400 Pulse Oximetry 98 % Caren Tobin SHEET METAL CONTRACTOR [facility] Work Phone: 01-13-2017 14:13-0400 Respiratory Rate 18 /min Caren Sujataho SHEET METAL CONTRACTOR [facility] Work Phone: 01-13-2017 14:13-0400 Weight 96.16 kg Caren Tobin SHEET METAL CONTRACTOR [facility] Work Phone: Encounters Encounter Date Encounter Type Care Provider Facility Start: 01-04-2025 End: 01-05-2025 Emergency department patient visit Dr. Ivette Welsh MD Work Phone: -Emergency Department Work Phone: Start: 11-02-2024 End: 11-02-2024 Refill Ivette Welsh MD Work Phone: [facility] Comment on above: Refill Request Start: 09-26-2024 End: 10-27-2024 ambulatory Ivette Welsh MD Work Phone: [facility] [place] Start: 08-28-2024 ambulatory Idalia Hays Fa cility:[facility] Start: 08-24-2024 End: 08-24-2024 Telephone encounter Damon TORRES Work Phone: [facility] Comment on above: Results Start: 08-23-2024 End: 08-23-2024 ambulatory IVETTE WELSH Facility:[facility] Start: 08-23-2024 End: 08-23-2024 Patient encounter procedure Marcy Raj AUTOMATIC PATTERN EDGER.LAW OFFICE ASSISTANT Work Phone: [facility] Comment on above: Sore throat (Primary Dx); URI, acute Start: 07-24-2024 End: 07-24-2024 ambulatory IVETTE WELSH Facility:[facility] Start: 07-24-2024 End: 07-24-2024 Patient encounter procedure Ivette Welsh MD Work Phone: [facility] Comment on above: Hospital discharge f ollow-up (Primary Dx); Dysphagia, unspecified type; Chronic obstructive pulmonary disease, unspecified COPD type (HCC); Bacterial pneumonia; Sore throat Start: 07-21-2024 End: 07-21-2024 Telephone encounter Ivette Welsh MD Work Phone: [facility] Start: 07-18-2024 End: 07-18-2024 Patient Outreach Elena Lopez MA [facility] Comment on above: Transition Of Care Start: 07-17-2024 ambulatory Ivette Welsh Facilit y:[facility] Start: 07-15-2024 ambulatory Albert Hartmann Facili ty:[facility] Start: 07-15-2024 End: 07-17-2024 Evaluation and management of inpatient Albert Hartmann Facility:[facility] Start: 07-12-2024 End: 07-12-2024 Emergency department patient visit KELLIE MARTINEZ MD [facility] Start: 07-05-2024 End: 07-05-2024 ambulatory Idalia Murrieta MA [facility] Start: 07-05-2024 End: 07-05-2024 Patient encounter procedure Idalia Murrieta MA [facility] Comment on above: Population Health Na vigation Outreach ([facility] [place] ) Start: 05-15-2024 End: 05-15-2024 ambulatory Idalia Murrieta MA [facility] Start: 05-15-2024 End: 05-15-2024 Patient encounter procedure Idalia Murrieta MA [facility] Comment on above: Population Health Na vigation Outreach ([facility] [place] / /) Start: 04-28-2024 End: 04-28-2024 Emergency department patient visit Ivette Welsh Facility:[facility] Start: 02-25-2024 ambulatory Idalia Murrieta MA [facility] [place] Start: 02-25-2024 Patient encounter procedure Idalia Murrieta MA [facility] Comment on above: Population Health Na vigation Outreach ([facility] [place] ) Start: 01-04-2024 ambulatory Idalia Murrieta MA [facility] [place] Start: 01-04-2024 Patient encounter procedure Id[facility] Murrieta [facility] Comment on above: Population Health Na vigation Outreach ([employer]) Start: 12-07-2023 ambulatory Idalia Murrieta MA [facility] [place] Start: 12-07-2023 Patient encounter procedure Idalia Murrieta MA [facility] Comment on above: Population Health Na vigation Outreach ([employer]/ //) Start: 10-29-2023 ambulatory Idalia Murrieta MA [facility] [place] Comment on above: Population Health Na vigation Outreach ([employer]) Start: 10-27-2023 ambulatory Ivette noe MD Work Phone: [facility] Start: 07-01-2023 End: 07-02-2023 Emergency department patient visit KENISHA ABBASI MD Facility:[facility] Start: 07-01-2023 End: 07-01-2023 Emergency department patient visit JOSHUA FERNANDEZ DO [facility] Start: 06-18-2023 Refill Ivette noe MD Work Phone: [facility] Comment on above: Refill Request Start: 06-05-2023 Non-patient / Non-visit Dr. Jessie Welsh Work Phone: [facility] Work Phone: Start: 06-04-2023 Non-patient / Non-visit Dr. Jessie Welsh Work Phone: [facility] [facility] Work Phone: Start: 06-04-2023 End: 06-05-2023 Evaluation and management of inpatient Dr. Ivette Welsh Work Phone: [facility] Work Phone: Start: 06-04-2023 End: 06-05-[address] Ivette Welsh Work Phone: [facility] Work Phone: Start: 05-19-2023 ambulatory Radha Victoria RN [facility] Start: 05-19-2023 Follow-up encounter Radha Robledo [facility] Comment on above: Transition Of Care ( TCM follow up) Start: 05-12-2023 ambulatory Damaris valdes RN [facility] Start: 05-12-2023 Follow-up encounter Damaris Francis [facility] Comment on above: Transition Of Care ( TCM follow up ) Start: 05-03-2023 Patient Outreach Meli Olsen RN [facility] Comment on above: Transition Of Care ( Initial Outreach D/C Javit 05/01/23 - LM x 2 days ) Start: 04-29-2023 End: 05-01-2023 Evaluation and management of inpatient IVETTE WELSH Facility:[id number] Start: 02-22-2023 End: 02-22-2023 Emergency department patient visit ELKE GARCIA MD Facility:B Start: 02-22-2023 End: 02-22-2023 Emergency department patient visit ELKE GARCIA MD [facility] Start: 02-18-2023 End: 02-18-2023 Patient encounter procedure Ivette Welsh MD Work Phone: [facility] Comment on above: Hospital discharge f ollow-up (Primary Dx); Acute pyelonephritis; Chronic obstructive pulmonary disease, unspecified COPD type (HCC); Dysphagia, unspecified type Start: 02-11-2023 Non-patient / Non-visit Dr. Jessie Welsh Work Phone: [facility] Work Phone: Start: 02-10-2023 Non-patient / Non-visit Dr. Jessie Welsh Work Phone: [facility] Work Phone: Start: 02-09-2023 Non-patient / Non-visit Dr. Jessie Welsh Work Phone: [facility] Work Phone: Start: 02-08-2023 End: 02-11-2023 Evaluation and management of inpatient [facility]. Ivette Welsh [facility] Work Phone: Start: 12-30-2022 End: 12-30-2022 [facility] Start: 12-21-2022 Refill Ivette noe MD Work Phone: [facility] Comment on above: Refill Request Start: 11-18-2022 ambulatory Ivette noe MD Work Phone: Internal Medicine [facility] Start: 11-16-2022 End: 11-16-2022 [facility] Start: 11-13-2022 End: 11-13-2022 Subsequent hospital visit by physician Xr [facility] Work Phone: Radiology Comment on above: Acute cough [R05.1] Start: 10-11-2022 End: 10-12-2022 [facility] Start: 10-01-2022 Refill Jagdeep ELDRIDGE RN.LAW OFFICE ASSISTANT, DNP Work Phone: [facility] [place] Comment on above: Refill Request Start: 09-09-2022 End: 09-09-2022 [facility] Start: 06-29-2022 ambulatory [facility] [place] Comment on above: Population Health Na vigation Outreach (HCC) Start: 06-24-2022 ambulatory Jacquie Cortez [facility] Pop Health Comment on above: Allied Health Visit Start: 04-02-2017 End: 04-02-2017 Ambulatory BRENT (PAC) [facility] Procedures Date Procedure Procedure Detail Performing Clinician Start: 01-04-2025 X-ray of chest, PA a nd lateral views Dr. Ivette Welsh MD Work Phone: Start: 01-04-2025 Urnls dip stick/tabl et reagent auto microscopy Dr. Ivette Welsh MD Work Phone: Start: 01-04-[address] Ivette Welsh MD Work Phone: Start: 01-04-2025 SARS-CoV-2, Influenz a & RSV (PCR) Dr. Ivette Welsh MD Work Phone: Start: 08-23-2024 STREP A MOLECULAR (POC) Juhi Newell AUTOMATIC PATTERN EDGER.LAW OFFICE ASSISTANT Work Phone: Start: 06-04-2023 CT angiography of [...] Plasma Meli Olsen RN Start: 02-08-2016 Colonoscopy Jacquie Cortez [facility] Start: 10-17-2013 Mammography Jacquie Sifuentesejjorden [facility] Cholecystectomy ELKE James MD Ligation of fallopian tube Jacob GARCIA MD Plan of Treatment Date Care Activity Detail Author Start: 05-01-2026 Diabetes Screening Diabetes Screenin g [facility] Start: 02-07-2026 Colonoscopy COLONOSCOPY [facility] Start: 02-07-2026 COLORECTAL CANCER SCREENING COLORECTAL CANCER SCREENING [facility] Start: 02-07-2026 Screening for malign ant neoplasm of colon [facility] Start: 07-24-2025 Annual PCP Team Farm Reporter lukasz Disease Visit Annual PCP Team Chronic Disease Visit [facility] Start: 01-05-2025 [facility] Start: 10-23-2024 End: 10-23-2024 Patient encounter procedure 10/23/2024 2:40 PM EDT Office Visit [facility] [address] [place] [address] Ivette Welsh MD [address] [place] [address] 3 month follow up [facility] Comment on above: 3 month follow up Start: 07-24-2024 End: 07-24-2024 Patient encounter procedure 07/24/2024 2:00 PM EST Office Visit Family [facility] [address] [place] [address] Ivette Welsh MD [address] [place] [address] [facility] f/u Pnemonia/asthma 07/15-07/17 Family [facility] Comment on above: [facility] f/u Pnemonia/ast hma Start: 03-31-2024 Lipid 1996 panel - S viridiana or Plasma Lipid Screening [facility] Start: 03-31-2024 Lipid panel Lipid Screening [facility] Start: 03-31-2024 LIPID SCREEN LIPID SCREEN [facility] Start: 03-19-2024 Influenza vaccination [facility] Start: 02-19-2024 ANNUAL PCP TEAM MEDICAL RADIATION DOSIMETRIST LUKASZ DISEASE VISIT ANNUAL PCP TEAM CHRONIC DISEASE VISIT [facility] Start: 06-05-2023 Patient discharge [facility] Start: 06-05-2023 Ambulation without limitation [facility] Start: 06-05-2023 Assessment of risk o f venous thromboembolism [facility] Start: 06-05-2023 Insertion of cathete r into peripheral vein [facility] Start: 06-05-2023 Measuring intake and output [facility] Start: 06-05-2023 Oxygen therapy [facility] Start: 06-05-2023 Providing care accor ding to standard [facility] Start: 06-05-2023 [facility] Start: 06-05-2023 Admission procedure [facility] Start: 06-05-2023 Following clinical pathway protocol [facility] Start: 06-05-2023 Patient referral to dietitian [facility] Start: 06-04-2023 [facility] Start: 06-04-2023 Hospital admission, emergency, from emergency room, medical nature [facility] Start: 06-04-2023 Blood culture [facility] Start: 06-04-2023 Blood culture [facility] Start: 06-04-2023 Bacteria identified in Blood by Culture Blood Culture [facility] Start: 03-19-2023 Influenza vaccination [facility] Start: 02-18-2023 End: 04-20-2023 Urinalysis complete panel - Urine URINALYSIS WITH MICROSCOPIC, REFLEX CULTURE Lab Routine Acute pyelonephritis Expected: 02/18/2023, Expires: 04/20/2023 [facility] Work Phone: Comment on above: Expected: 02/18/2023 , Expires: 04/20/2023 Start: 02-11-2023 Patient discharge [facility] Start: 02-10-2023 [facility] Start: 02-09-2023 Following clinical pathway protocol [facility] Start: 02-08-2023 Ambulation without limitation [facility] Start: 02-08-2023 Assessment of risk o f venous thromboembolism [facility] Start: 02-08-2023 Inhalation therapy procedure [facility] Start: 02-08-2023 Insertion of cathete r into peripheral vein [facility] Start: 02-08-2023 Measuring intake and output [facility] Start: 02-08-2023 Oxygen therapy [facility] Start: 02-08-2023 Providing care accor ding to standard [facility] Start: 02-08-2023 [facility] Start: 02-08-2023 Following clinical pathway protocol [facility] Start: 02-08-2023 Admission procedure [facility] Start: 02-08-2023 Blood culture [facility] Start: 02-08-2023 Consultation [facility] Start: 11-16-2022 [facility] Start: 09-29-2022 ANNUAL PCP TEAM MEDICAL RADIATION DOSIMETRIST LUKASZ DISEASE VISIT ANNUAL PCP TEAM CHRONIC DISEASE VISIT [facility] Start: 03-31-2022 DIABETES SCREEN DIABETES SCREEN [facility] Start: 03-19-2022 Influenza vaccination INFLUENZA (#1) [facility] Start: 03-03-2022 Urine microalbumin profile [facility] Start: 08-04-2017 HPV TESTING HPV TESTING [facility] Start: 08-04-2017 PAP TESTING PAP TESTING [facility] Start: 08-04-2017 Screening for malign ant neoplasm of cervix [facility] Start: 02-26-2017 End: 02-26-2017 Appointment Appointment [facility] Phone: Start: 02-24-2017 End: 02-24-2017 Appointment Appointment [facility] Phone: Start: 01-13-2017 End: 01-13-2017 Appointment Appointment [facility] Phone: Start: 01-13-2017 End: 01-13-2017 DMB DMB [facility] Phone: Start: 01-13-2017 End: 01-13-2017 Follow Up Appt 6 weeks Follow Up Appt 6 weeks [facility] Phone: Start: 01-13-2017 End: 01-13-2017 Pulmonary Function Test - complete Pulmonary Function Test - complete [facility] Phone: Start: 01-13-2017 End: 01-13-2017 Pulmonary stress test/simple Pulmonary stress testing; simple (eg, 6-minute walk) Pulmonary Medicine [facility] [place] [employer] Phone: Start: 2016 SHINGRIX VACCINE (1 of 2) LOPEZ GRIX VACCINE (1 of 2) [facility] Start: 10-17-2014 Mammography [facility] Start: 10-17-2014 Screening for malign ant neoplasm of breast Mammogram Screening [facility] Start: 08-24-2013 FECAL OCCULT BLOOD FECAL OCCULT BLOO D [facility] Start: 08-24-2013 Screening for malign ant neoplasm of colon Fecal Occult Blood [facility] Start: 2011 COLOGUARD (FIT-DNA) COLOGUARD (FIT-D NA) [facility] Start: [address] COLONOGRAPHY [facility] Start: 2011 Screening for malign ant neoplasm of colon [facility] Start: 2011 SIGMOIDOSCOPY SIGMOIDOSCOPY [facility] Start: 1996 Zoledronic acid therapy ALPHA- 1 ANTITRYPSIN DEFICIENCY SCREENING [facility] Start: 1985 Hepatitis B Vaccine (1 of 3 - 19+ 3-dose series) Hepatitis B Vaccine (1 of 3 - 19+ 3-dose series) [facility] Start: 1985 Pneumococcal Vaccine : 50+ (1 of 2 - PCV) Pneumococcal Vaccine: 50+ (1 of 2 - PCV) [facility] Start: 1984 BP CONTROLLED (<130/80) BP CONTROLLE D (<130/80) [facility] Start: 1972 PNEUMOCOCCAL (1 - PCV) PNEUMOCOCCAL (1 - PCV) [facility] Start: 1972 Pneumococcal vaccination [facility] Start: 1966 HEPATITIS B (1 of 3 - 3-dose series) HEPATITIS B (1 of 3 - 3-dose series) [facility] Start: 1966 Hepatitis B Vaccine (1 of 3 - 3-dose series) Hepatitis B Vaccine (1 of 3 - 3-dose series) [facility] COVID & INFLUENZA A/ B & RSV PCR, ROUTINE COVID & INFLUENZA A/B & RSV PCR, ROUTINE Microbiology Routine Sore throat URI, acute Ordered: 08/23/2024 [facility] Work Phone: Comment on above: Ordered: 08/23/2024 End: 10-26-2025 DBT Breast - bilateral screening DARIA SCREENING [facility] Radiology Routine Encounter for screening mammogram for breast cancer 1 Occurrences starting 09/26/2024 until 10/26/2025 [facility] Work Phone: Comment on above: 1 Occurrences starti ng 09/26/2024 until 10/26/2025 End: 12-18-2023 DARIA SCREENING DARIA SCREENING Radiology Routine Encounter for screening mammogram for breast cancer 1 Occurrences starting 11/18/2022 until 12/18/2023 [facility] Work Phone: Comment on above: 1 Occurrences starti ng 11/18/2022 until 12/18/2023 End: 11-25-2024 MG Breast Screening DARIA SCREENING Radiology Routine Encounter for screening mammogram for breast cancer 1 Occurrences starting 10/27/2023 until 11/25/2024 [facility] Work Phone: Comment on above: 1 Occurrences starti ng 10/27/2023 until 11/25/2024 Patient Education [facility] Work Phone: Patient referral [facility] Work Phone: [facility] Immunizations Immunization Date Immunization Notes Care Provider Adonay murillo 10-08-2017 influenza virus vacc ine, unspecified formulation Meli Olsen RN [facility] 03-03-2012 tetanus toxoid, redu ankita diphtheria toxoid, and acellular pertussis vaccine, adsorbed Jacquie Koepf [facility] Payers Date Payer Category Payer Medicare (Managed Care) [employer] [id number] 2024 Private Health Insurance [id number] 2024 Self-pay [id number] 2023 Medicare [id number] 2023 Private Health Insurance [id number] 2022 Unknown [id number] 2022 Unknown [id number] 2018 Medicaid [id number] 2014 Medicaid [id number] 2014 Unknown [id number] 1966 Unknown [id number]. [id number] 1966 Unknown [id number]. 627 1966 Unknown [id number]. 627 Medicare MEDICARE PART A B [id number] Unknown [id number]. 462 Unknown [id number]. 462 Unknown [id number]. 462 Unknown [id number]. 462 Unknown [id number]. 462 Unknown [id number]. 462 Unknown [id number]. 462 Unknown [id number]. 462 Unknown [id number]. 462 Unknown [id number] 462 Social History Date Type Detail Facility Start: 12-27-1984 End: 08-23-2024 Tobacco smoking status NHIS Occasional tobacco smoker [facility] Work Phone: Start: 12-27-1984 History of tobacco use Cigarette Smo ker [facility] Work Phone: Start: 11-29-2015 End: 08-23-2024 Tobacco use and exposure Smokeless tobacco non-user [facility] Work Phone: Start: 03-04-2022 End: 08-23-2024 Alcohol intake Current drinker of alcohol (finding) [facility] Start: 11-29-2015 End: 11-13-2022 Tobacco Comment 2-3 cigarettes daily, 11/29/2015. [facility] Start: 11-29-2015 Alcohol Comment Quit drinking ETOH, which was getting to be a problem. [facility] Start: 1965 Sex Assigned At Not on file [facility] Start: 09-09-2022 End: 06-05-2023 Tobacco smoking status SDIS Unknown if ever smoked [facility] Start: 12-03-2019 None [facility] Start: 09-17-2019 With Family [facility] Start: 11-24-2020 Cigarettes [facility] Start: 1965 Sex Assigned At Female W [facility] Start: 02-18-2023 End: 07-24-2024 History of Social function [facility] Start: 02-18-2023 End: 07-24-2024 Tobacco use panel [facility] Adult Depression Screening Assessment 5 [facility] Start: 02-22-2023 Tobacco smoking status Heavy t obacco smoker (finding) [facility] Sex Assigned At [facility] Start: 12-07-2011 Sex Female (finding) [facility] Start: 01-04-2025 Tobacco smoking stat us SDIS Smokes tobacco daily (finding) [facility] Goals Date Patient Goal Desired Activity /State Personal health goal Functional Status Date Assessment Result Facility 07-12-2024 Functional Status ID band on, Call device within reach, Bed in low position [facility] 07-01-2023 Functional Status Standard Safet y ID band on, Allergy Band on, Call device within reach, Bed in low position, Wheels locked, Upper/Half-Length side-rails up, Phone within reach, personal items within reach, Bedside Cart Locked [facility] 06-05-2023 Functional status Ambulates;Up ad abad [facility] Work Phone: 02-22-2023 Functional Status Up ad abad [facility] 02-22-2023 Functional Status ID band on, Call device within reach, Bed in low position, Wheels locked, Bedside Cart Locked, Safety level maintained [facility] 02-11-2023 Functional status Ambulates [facility] Work Phone: 06-05-2016 Are you deaf, or do you have serious difficulty hearing No 06/05/2016 3:07 PM Kenisha Madera III, MD [facility] 06-05-2016 Are you blind, or do you have serious difficulty seeing, even when wearing glasses No 06/05/2016 3:07 PM Kenisha Madera III, MD No [facility] 06-05-2016 Do you have serious difficulty walking or climbing stairs No 06/05/2016 3:07 PM Kenisha Madera III, MD No [facility] 06-05-2016 Do you have difficul ty dressing or bathing No 06/05/2016 3:07 PM Kenisha Madera III, MD No [facility] 06-05-2016 Because of a physica l, mental, or emotional condition, do you have difficulty doing errands alone such as visiting a physician's office or shopping No 06/05/2016 3:07 PM Kenisha Madera III, MD No [facility] Mental Status Date Assessment Result Facility 07-12-2024 Mental Status Oriented x 4 [facility] 07-01-2023 Mental Status Orientation Oriented x 4 [facility] 06-05-2023 Cognitive function Voice/Name [facility] Work Phone: 02-22-2023 Mental Status Orientation Oriented x 4 [facility] 02-22-2023 Mental Status [facility] 02-11-2023 Cognitive function Voice/Name [facility] Work Phone: 06-05-2016 Because of a physica l, mental, or emotional condition, do you have serious difficulty concentrating, remembering, or making decisions No 06/05/2016 3:07 PM Kenisha Madera III, MD No [facility] Clinical Notes 06-05-2016 to 01-04-2025 Telephone Encounter - Ivette Welsh MD - 11/02/2024 9:09 AM EDTTelephone Encounter - Ivette Welsh MD - 11/02/2024 9:09 AM EDTPatient Instructions Note Date & Type Note Facility 01-04-2025 Radiology Diagnostic study note [facility] Imaging Services [address] [place], [place] [address] Chest PA and Lateral MR#: [id number] Acct: [id number] Name: SAVANNAH IRVIN SRIDHAR Rep #: [id number] : 1965 F 59 From: Bernardino Meng MD PCP: Dr. Ivette Welsh MD Status: RE G ER Study:Chest PA and Lateral Date of Exam: 01/04/25 Exam# [id number] Ordering Dr: Kwadwo Marie DO PROCEDURE: CHEST PA AND LATERAL 01/04/2025 REASON FOR EXAM: SHORTNESS OF BREATH TECHNIQUE: CHEST PA AND LATERAL COMPARISON: 07/15/2024. FINDINGS: The heart is normal in size. The mediastinum is normal in contour. Hyperaerated lungs which may suggest COPD. The lungs are clear. No acute osseous abnormalities. RAD/Chest PA and Lateral IMPRESSION: NO ACUTE FINDINGS. Reading Location: [id number] CC: Dr. Kwadwo Hernandez DO; Dr. Ivette Welsh MD ~ Photogrammetric Engineer: Signed [facility] 11-02-2024 Telephone encounter Note OK to refill as ordered Ivette Welsh MD [facility] 11-02-2024 Miscellaneous Notes OK to refill [...] 2024 9:03 AM documented in this encounter [facility] 11-02-2024 Telephone encounter Note Pt reports [...] Youssef RN November 02, 2024 9:03 AM [facility] 09-26-2024 Note Patient Outreach (FA MPWS) SAVANNAH IRVIN ([id number]) 1965 F Date Time Provider Department 09/26/24 [...] breast cancer [Z12.31] Order(s):DARIA SCREENING W DANTE [[id number]] Order #: [id number] FUTURE Prescriptions as of 10/27/2024 - sucralfate [...] hypoxia (HCC) [J*04/29/2023 07/24/2024 Encounter Status:Closed by JOSE FIELDS on 10/27/24 [facility] 08-24-2024 Telephone encounter Note Pt returned call and given provider's message below with verbalized understanding. Reviewed home care instructions with patient. [facility] 08-24-2024 Miscellaneous Notes Pt returned call and given provider's message below with verbalized understanding. Reviewed home care instructions with patient. Listed contact number for patient is not currently accepting calls, please try again later. Lindsay Muse MA Please let patient know she is negative for COVID flu and RSV. documented in this encounter [facility] 08-24-2024 Telephone encounter Note Listed contact number for patient is not currently accepting calls, please try again later. Lindsay Muse MA [facility] 08-24-2024 Telephone encounter Note Please let patient know she is negative for COVID flu and RSV. [facility] Work Phone: 08-23-2024 Instructions Marcy Anthony APRN.LAW OFFICE ASSISTANT - 08/23/2024 4:43 PM EST Images from [...] you with PAXLOVID for the treatment of blsx-li-vjvnqqed coronavirus disease (COVID-19) caused by the SARS-CoV-2 [...] make PAXLOVID available for the treatment of xjbx-ai-oispqiyf COVID-19 in adults and children 12 years [...] virus. COVID-19 illnesses have ranged from very hkri-sk-fbkqxs, including illness resulting in . While information [...] available under EUA for the treatment of pclm-lx-iofyrffm COVID-19 in adults and children 12 years [...] of using PAXLOVID to treat children with fasj-vw-iwsdbmob COVID-19. What is the most important information [...] o ranolazine o rifampin o rifapentine o Maxwell s Wort (hypericum perforatum) o sildenafil (Revatio [...] the medicines you take, including prescription and bnuq-tku-kruyier medicines, vitamins, and herbal supplements. Your healthcare [...] morning or evening, depending on when you pickle processor your prescription, or as your healthcare provider [...] PAXLOVID is FDA-approved for the treatment of xpck-ne-kktymgit COVID-19 in certain adults; however, there are not sufficient quantities of the approved presentations (i.e., dose packs) of PAXLOVID at this time. This EUA continues to authorize the emergency use of PAXLOVID for the approved patient population to ensure continued access in order to meet the public health need. VEKLURY (remdesivir) is FDA-approved for the treatment of jnde-jo-qtrerpue COVID-19 in certain adults and children. Talk with your healthcare provider to see if VEKLURY is appropriate for you. For information on the emergency use of other medicines that are authorized by FDA to treat people with COVID-19, please go to https://www.fda.gov/emergency-pr nemazzlrrm-sxe-aosdgenl/lynn-irvinjacob z-ullqvmaeii-nqk-policy-framewor k/vlklwstil-lzo-ozizamycbuymy. Your healthcare provider may talk with you [...] to FDA MedWatch at www.fda.gov/medwatch or call 5-929-XBC-8083 or you can report side effects to [employer]. at the contact information provided below. How [...] PAXLOVID may also be found at https://www.fda.gov/emergency-pr kxfegiyqre-xqp-yyuajonv/lynn-segun y-hhfclakkkw-sga-policy-framewor k/mhsjzzbrlj-kwxmsn-hmovudrxf. How can I learn more about COVID-19? Ask your healthcare provider. Visit https://www.cdc.gov/COVID19. Contact your local or state public health department. What is an Emergency Use Authorization (EUA)? The [place] FDA has made PAXLOVID available under an emergency access mechanism called an Emergency Use Authorization (EUA). The EUA is supported by a [place] of Health and Human Services (HHS) declaration that circumstances exist to justify the [...] call the telephone number provided below. Website: [employer]Complete [employer] Telephone number: (1-877-c19-pack) Distributed by [employer] [place] [address] [id number] Revised: 11/2022 documented in this encounter [facility] 08-23-2024 Note HNO ID: [id number] Author: MARCY ANTHONY APRN.STEFANO Service: ? Author Type: Nurse Practitioner Type: Progress Notes Filed: 08/23/2024 17:25 Note Text: Subjective The history is provided by the patient. No sign language interpreter was used. ALFREDO Irvin is a [...] 08/25/2012 Morbid obesity due to excess calories ([facility]) 10/30/2015 PMH - PAST MEDICAL HISTORY OF neck problems Proteinuria 08/25/2012 Pulmonary embolus ([facility]) 11/07/2015 Reflux esophagitis 09/19/2012 Renal stone 09/16/2016 Right-sided lacunar infarction ([facility]) 07/03/201506/2015: right middle frontal gyrus anteriorly Tobacco abuse 09/19/2012 Unspecified asthma(493.90) I have confirmed and edited as necessary, the [facility] Review of Systems Constitutional: Negative for [...] detail warranting prompt ER evaluation. Marcy Anthony APRN.[facility] 08-23-2024 History of Presen t illness Narrative Subjective The history is provided by the patient. No sign language interpreter was used. HPI Savannah Irvin is [...] 08/25/2012 Morbid obesity due to excess calories ([facility]) 10/30/2015 PMH - PAST MEDICAL HISTORY OF neck problems Proteinuria 08/25/2012 Pulmonary embolus ([facility]) 11/07/2015 Reflux esophagitis 09/19/2012 Renal stone 09/16/2016 Right-sided lacunar infarction ([facility]) 07/03/201506/2015: right middle frontal gyrus anteriorly Tobacco abuse 09/19/2012 Unspecified asthma(493.90) I have confirmed and edited as necessary, the [facility] Review of Systems Constitutional: Negative for [...] detail warranting prompt ER evaluation. Marcy Anthony APRN.LAW OFFICE ASSISTANT documented in this encounter [facility] 07-24-2024 History of Presen t illness [...] HPI 7 Day TCM Pt went to [facility] ER on 07/15/24 for dizziness, tired, [...] have a stent placed with Dr. Asencio, Gastro. She is not longer bring up [...] to quit smoking now. Below copied from [employer]: Chief Complaint: Dizziness Informant: patient Narrative Narrative: [...] 07/16/24 01:37 Consult: Gastroenterology Routine Consulting Provider: [facility] Reason for Consult: suspected esophageal stenosis [...] having severe dysphagia feeling food getting stuck fpc down her esophagus and forcing herself to [...] with [place] If continues follow up with Gastro Dr. Friend Follow up in 3 months on COPD. I agree with the Chief Complaint, ROS, and Past Histories independently gathered by the clinical network support administrator and the remaining scribed note accurately describes my personal service to the patient. Ivette Welsh MD The documentation for this note was completed by Elena Lopez MA acting as scribe for Ivette Welsh MD. July 24, 2024 2:05 PM. Elena Lopez MA documented in this encounter [facility] 07-24-2024 Note HNO ID: [id number] Author: IVETTE WELSH MD Service: ? Author [...] HPI 7 Day TCM Pt went to [facility] ER on 07/15/24 for dizziness, tired, [...] have a stent placed with Dr. Friend, Amber. She is not longer bring up [...] to quit smoking now. Below copied from [employer]: Chief Complaint: Dizziness Informant: patient Narrative Narrative: [...] She notes her daughter was sick over [place] and she was around her. She does [...] the medial basilar (more content not included)... [facility] 07-21-2024 Telephone encounter Note Patient calls and is upset because the inhalers were not ordered on 07/18 like she asked. Advised patient that it looks like Dr. Welsh had sent in orders to [facility]. Called and spoke with Pharmacist at [facility]. Patient has prescription ready under a Savannah Irvin. Called and advised patient that prescription is ready under that name. Patient voices understanding. Rowan Amado RN [facility] 07-21-2024 Miscellaneous Notes Patient calls and is upset because the inhalers were not ordered on 07/18 like she asked. Advised patient that it looks like Dr. Welsh had sent in orders to [facility]. Called and spoke with Pharmacist at [facility]. Patient has prescription ready under a Savannah A. Irvin. Called and advised patient that prescription is ready under that name. Patient voices understanding. Rowan Amado RN documented in this encounter [facility] 07-18-2024 Note HNO ID: [id number] Author: ELENA LOPEZ MA Service: ? Author Type: Hearing Stenographer Type: Progress Notes Filed: 07/18/2024 09:38 Note Text: TRANSITION CARE MANAGEMENT (TCM) INITIAL CONTACT Hearing Stenographer Outreach Provider Action/FYI: 7 Day TCM Pt is feeling ok. Needs a refill on nebulizer solution and inhaler to [facility]. She states he has a sore [...] data to display SUMMARY: -Pt discharged from [facility] on 07/17/24. -Admitted for: dysphagia Do you have a hospital follow up appointment with your PCP? Appointment on 07/24/24 with PCP. Yes. Remind patient of appointment date, time, and location. If not within 14 calendar days of discharge - please reschedule accordingly. Below copied from [employer]: Chief Complaint: Dizziness Informant: patient Narrative Narrative: [...] 07/16/24 01:37 Consult: Gastroenterology Routine Consulting Provider: [facility] Reason for Consult: suspected esophageal stenosis EMERGENT Consult: No MD Notified: Yes Date Notified: 07/16/24 Time No (more content not included)... [facility] 07-18-2024 History of Presen t illness Narrative TRANSITION CARE MANAGEMENT (TCM) INITIAL CONTACT Hearing Stenographer Outreach Provider Action/FYI: 7 Day TCM Pt is feeling ok. Needs a refill on nebulizer solution and inhaler to [facility]. She states he has a sore [...] data to display SUMMARY: -Pt discharged from [facility] on 07/17/24. -Admitted for: dysphagia Do you have a hospital follow up appointment with your PCP? Appointment on 07/24/24 with PCP. Yes. Remind patient of appointment date, time, and location. If not within 14 calendar days of discharge - please reschedule accordingly. Below copied from [employer]: Chief Complaint: Dizziness Informant: patient Narrative Narrative: [...] She notes her daughter was sick over [place] and she was around her. She does [...] 07/16/24 01:37 Consult: Gastroenterology Routine Consulting Provider: [facility] Reason for Consult: suspected esophageal stenosis [...] having severe dysphagia feeling food getting stuck fpc down her esophagus and forcing herself to [...] provider to review documented in this encounter [facility] 07-18-2024 Note Patient Outreach (FA MPWS) SAVANNAH IRVIN ([id number]) 1965 F Date Time Provider Department 07/18/24 ELENA LOPEZ During your visit today, we recorded the following information about you: Elena Lopez MA 07/18/2024 9:38 AM Signed TRANSITION CARE MANAGEMENT (TCM) INITIAL CONTACT Hearing Stenographer Outreach Provider Action/I: 7 Day TCM Pt is feeling ok. Needs a refill on nebulizer solution and inhaler to [facility]. She states he has a sore [...] data to display SUMMARY: -Pt discharged from [facility] on 07/17/24. -Admitted for: dysphagia Do you have a hospital follow up appointment with your PCP? Appointment on 07/24/24 with PCP. Yes. Remind patient of appointment date, time, and location. If not within 14 calendar days of discharge - please reschedule accordingly. Below copied from [employer]: Chief Complaint: Dizziness Informant: patient Narrative Narrative: [...] She notes her daughter was sick over [place] and she was around her. She does [...] Consult: Gastroenterology Routine (more content not included)... [facility] 07-17-2024 Note [facility] Medical Records Department [address] [place] [address] Discharge Summary 07/17/24 1217 MR#: [id number] Acct: [id number] Name: SAVANNAH IRVIN Rep #: [id number] : 1965 59 From: Jama Bustamante MD PCP: Dr. Ivette Welsh MD Status:ADM IN Location: [place] [address] Providers Date of Admission: 07/15/24 Date of Discharge: 07/17/24 Primary Care Physician: Dr. Ivette Welsh MD Consultations 07/16/24 01:37 Consult: Gastroenterology Routine Consulting Provider: [facility] Reason for Consult: suspected esophageal stenosis [...] having severe dysphagia feeling food getting stuck fpc down her esophagus and forcing herself to [...] ##1 01/21/19 dextromethorphan-guaife (more content not included)... [facility] 07-12-2024 Hospital Discharg e instructions Patient Education [...] products Chemicals or dyes in clothing, linen, fertilizer loader, hair dyes, soaps, iodine Many viruses and [...] damage the skin. Oral diphenhydramine is an mmns-kfi-bwmvavn antihistamine sold at pharmacy and grocery stores. [...] hours, or as directed by your provider 9021-8229 [employer]. [address] [place] [address]. All rights reserved. This information is not intended as a substitute for professional medical care. Always follow your healthcare professional's instructions. Follow Up Care 07/12/2024 19:13:01 With:KENISHA ABBASI III, MD Address: [address] [place] [phone]- [phone] When:2-4 days [facility] 07-12-2024 Emergency department Discharge summary Discharge Instructions Thank you for allowing [facility] to assist you with your healthcare needs. The following is important discharge information regarding your hospital visit. Diagnosis from Today's Visit Allergic reaction What to Do Next Instructions from Your Care Team No qualifying data available. Post Acute Orders No qualifying data available. You Need to Schedule the Following Appointments Follow Up with KENISHA ABBASI III, MD When:Within 2-4 days Where:[address] [place] [phone] Allergies Peanuts anaphylaxis Medications Please ask your [...] products Chemicals or dyes in clothing, linen, fertilizer loader, hair dyes, soaps, iodine Many viruses and [...] damage the skin. Oral diphenhydramine is an otnn-kze-gbhdbaq antihistamine sold at pharmacy and grocery stores. [...] hours, or as directed by your provider [phone] [employer]. [address] [place] [address]. All rights reserved. This information is not intended as a substitute for professional medical care. Always follow your healthcare professional's instructions. Additional Information VACCINATE! IT SAVES LIVES! Members of the community who have not yet received the COVID-19 vaccine and would like to receive it can visit one of [facility] vaccine clinics. There are many vaccine clinic locations within the [facility]. For locations and available times, please visit www.[email or web address] gov/. It is important to note that some COVID mobile vaccine clinics are held outdoors and may be canceled in rainy or stormy conditions. To learn more about pediatric vaccinations (ages 5-11), we invite you to visit the [facility] webpage. https://www.[facility].org/p ages/1715-Rbzkx-Uuespyxyifr-Freq pumnlu-Lzpua-Kmknkpqeb.html To learn more about the COVID-19 vaccine, we invite you to visit the CDC website for a list of frequently asked questions. https://www.cdc.gov/coronavirus/ 2019-ncov/vaccines/faq.html [facility] Patient Portal Access Instructions: Stay connected with your healthcare team and access your personal medical information anytime with the [facility] Patient Portal. If you would like a full copy of your medical records please contact the [facility] Medical Records Department Wednesday through Wednesday between 8a.m. and 4:30p.m. Please follow the directions below to access the portal: 1.Access the email account you provided upon registration to the hospital.2.Look for an invitation email from [facility].3.Open the email and access the invitation link: Accept Invitation to [facility]4.Fill in the required siu to create your account. Sign into www.[employer] with your username and password that you [...] you will allow to register on the [facility] Patient Portal for access to your information. You can also access the [employer] [facility] Patient Portal on the [employer] maycol. Simply click on Health Records under Health Data and then click on the [employer] logo. HOW TO SAFELY DISPOSE OF PRESCRIPTION [...] Call your local pharmacy or go to http://[email or web address].Boosted Boards/0I0Zl6e to find one close to you.3.Make use of household items: Use cat litter or old coffee grounds to dispose medications if other options are not available. Mix your drugs with these household products, seal them in an airtight container and throw it into the garbage. Call [facility]: [phone] to be sure your drugs can be [...] aware that I should contact my doctor. Patient/Bounty Hunter Signature: Date/Time: Relationship to Patient: Witness Name/Signature: Date/Time: [facility] 07-12-2024 Note Discharge Instructions Thank you for allowing [facility] to assist you with your healthcare needs. The following is important discharge information regarding your hospital visit. Diagnosis from Today's Visit Allergic reaction What to Do Next Instructions from Your Care Team No qualifying data available. Post Acute Orders No qualifying data available. You Need to Schedule the Following Appointments Follow Up with KENISHA ABBASI III, MD When:Within 2-4 days Where:[address] [place] [phone]- [phone] Allergies Peanuts anaphylaxis Medications Please ask your [...] products Chemicals or dyes in clothing, linen, fertilizer loader, hair dyes, soaps, iodine Many viruses and [...] damage the skin. Oral diphenhydramine is an njye-ame-stnfyxa antihistamine sold at pharmacy and grocery stores. [...] hours, or as directed by your provider [phone] [employer]. [address] [place] [address]. All rights reserved. This information is not intended as a substitute for professional medical care. Always follow your healthcare professional's instructions. Additional Information VACCINATE! IT SAVES LIVES! Members of the community who have not yet received the COVID-19 vaccine and would like to receive it can visit one of [facility] vaccine clinics. There are many vaccine clinic locations within the [facility]. For locations and available times, please visit [email or web address] gov/. It is important to note that some COVID mobile vaccine clinics are held outdoors and may be canceled in rainy or stormy conditions. To learn more about pediatric vaccinations (ages 5-11), we invite you to visit the [facility] webpage. https://www.[facility].org/p ages/2456-Uvenr-Pkgitmgkqpc-Freq jthukr-Dvrtv-Npiivysvq.html To learn more about the COVID-19 vaccine, we invite you to visit the CDC website for a list of frequently asked questions. https://www.cdc.gov/coronavirus/ 2019-ncov/vaccines/faq.html [facility] Patient Portal Access Instructions: Stay connected with your healthcare team and access your personal medical information anytime with the [facility] Patient Portal. If you would like a full copy of your medical records please contact the [facility] Medical Records Department Wednesday through Wednesday between 8a.m. and 4:30p.m. Please follow the directions below to access the portal: 1.Access the email account you provided upon registration to the [facility].2.Look for an invitation email from [facility].3.Open the email and access the invitation link: Accept Invitation to [facility]4.Fill in the required siu to create your account. Sign into www.[employer] with your username and password that you [...] you will allow to register on the [facility] Patient Portal for access to your information. You can also access the [employer] [facility] Patient Portal on the [employer] maycol. Simply click on Health Records under Health Data and then click on the [employer] logo. HOW TO SAFELY DISPOSE OF PRESCRIPTION [...] Call your local pharmacy or go to http://[email or web address]ards/8O4Gn8g to find one close to you.3.Make use of household items: Use cat litter or old coffee grounds to dispose medications if other options are not available. Mix your drugs with these household products, seal them in an airtight container and throw it into the garbage. Call [facility]: [phone] to be sure your drugs can be [...] aware that I should contact my doctor. Patient/Bounty Hunter Signature: Date/Time: Relationship to Patient: Witness Name/Signature: Date/Time: [facility] 07-05-2024 Note HNO ID: [id number] Author: IDALIA MURRIETA MA Service: ? Author Type: Hearing Stenographer Type: Progress Notes Filed: 07/05/2024 14:00 Note Text: POPULATION HEALTH NAVIGATION OUTREACH Action/FYI Miladis Ledesma [place] Discuss/Due for: Medicare Wellness, Mammogram, Influenza Vaccination, BP Control HCC Score: .98778 Outcome: 1st attempt - Not Available 2nd attempt - MyChart message sent Reason for Outreach Care Gap/HCC or Scheduling Wellness Visits Care Gaps due: Medicare Annual Wellness Visit Breast Cancer Screening Controlling Blood Pressure Flu Vaccine Patient Contacted: Unable or unnecessary to reach patient: Left message HCC related Navigation Signature: Idalia Murrieta MA July 05, 2024 1:58 PM [facility] 07-05-2024 History of Presen t illness Narrative POPULATION HEALTH NAVIGATION OUTREACH Action/FYI [employer],[place] Discuss/Due for: Medicare Wellness, Mammogram, Influenza Vaccination, BP Control HCC Score: .32185 Outcome: 1st attempt - Not Available 2nd attempt - [employer] message sent Reason for Outreach Care Gap/HCC or Scheduling Wellness Visits Care Gaps due: Medicare Annual Wellness Visit Breast Cancer Screening Controlling Blood Pressure Flu Vaccine Patient Contacted: Unable or unnecessary to reach patient: Left message HCC related Navigation Signature: Idalia Murrieta MA July 05, 2024 1:58 PM documented in this encounter [facility] 07-05-2024 Note Patient Outreach (NE TNAV) SAVANNAH IRVIN ([id number]) 1965 F Date Time Provider Department 07/05/24 IDALIA MURRIETA NETCHARISSEV During your visit today, we recorded the following information about you: Idalia Murrieta MA 07/05/2024 2:00 PM Signed POPULATION HEALTH NAVIGATION OUTREACH Action/Miladis Galindo [place] Discuss/Due for: Medicare Wellness, Mammogram, Influenza Vaccination, BP Control HCC Score: .32705 Outcome: 1st attempt - Not Available 2nd attempt - [employer] message sent Reason for Outreach Care Gap/HCC [...] Encounter Status:Closed by IDALIA MURRIETA on 07/05/24 [facility] 05-15-2024 Note HNO ID: [id number] Author: IDALIA MURRIETA MA Service: ? Author Type: Hearing Stenographer Type: Progress Notes Filed: 05/15/2024 11:50 Note Text: POPULATION HEALTH NAVIGATION OUTREACH Action/Miladis Galindo [place] Discuss/Due for: Medicare Wellness, Mammogram, Influenza Vaccination HCC Score: .53336 Outcome: 1st attempt - Not Available 2nd attempt - MyChart message sent Reason for Outreach Care Gap/HCC or Scheduling Wellness Visits Care Gaps due: Medicare Annual Wellness Visit Breast Cancer Screening Flu Vaccine Patient Contacted: Unable or unnecessary to reach patient: Unable to leave message MyChart message sent HCC related Navigation Signature: Idalia Murrieta MA May 15, 2024 11:44 AM [facility] 05-15-2024 History of Presen t illness Narrative POPULATION HEALTH NAVIGATION OUTREACH Action/Miladis Galindo [place] Discuss/Due for: Medicare Wellness, Mammogram, Influenza Vaccination HCC Score: .27510 Outcome: 1st attempt - Not Available 2nd [...] 2024 11:44 AM documented in this encounter [facility] 05-15-2024 Note Patient Outreach (NE TNAV) SAVANNAH IRVIN ([id number]) 1965 F Date Time Provider Department 05/15/24 IDALIA MURRIETA During your visit today, we recorded the following information about you: Idalia Murrieta MA 05/15/2024 11:50 AM Signed POPULATION HEALTH NAVIGATION OUTREACH Action/JORGEI Miladis Ledesma [place] Discuss/Due for: Medicare Wellness, Mammogram, Influenza Vaccination HCC Score: .84179 Outcome: 1st attempt - Not Available 2nd attempt - [employer] message sent Reason for Outreach Care Gap/HCC or Scheduling Wellness Visits Care Gaps due: Medicare Annual Wellness Visit Breast Cancer Screening Flu Vaccine Patient Contacted: Unable or unnecessary to reach patient: Unable to leave message [employer] message sent HCC related Navigation Signature: Idalia [...] [G89.29] 11/07/2015 Thrombocytosis (HCC) [D75.839] 12/10/2015 07/25/2020 [place]'s syndrome (HCC) [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 Author Type: Hearing Stenographer Type: Progress Notes Filed: 02/25/2024 13:19 Note Text: POPULATION HEALTH NAVIGATION OUTREACH Action/Miladis Galindo [place] Discuss/Due for: Medicare Wellness, Mammogram HCC Score: .21160 Outcome: 1st attempt - No Answer/Busy 2nd attempt - MyChart message sent Reason for Outreach Care Gap/HCC or Scheduling Wellness Visits Care Gaps due: Medicare Annual Wellness Visit Breast Cancer Screening Patient Contacted: Unable or unnecessary to reach patient: Unable to leave message MyChart message sent HCC related Navigation Signature: Idalia Murrieta MA February 25, 2024 8:06 AM [facility] 02-25-2024 History of Presen t illness Narrative POPULATION HEALTH NAVIGATION OUTREACH Action/Miladis Galindo [place] Discuss/Due for: Medicare Wellness, Mammogram HCC Score: .37550 Outcome: 1st attempt - No Answer/Busy 2nd attempt - MyChart message sent Reason for Outreach Care Gap/HCC or Scheduling Wellness Visits Care Gaps due: Medicare Annual Wellness Visit Breast Cancer Screening Patient Contacted: Unable or unnecessary to reach patient: Unable to leave message MyChart message sent HCC related Navigation Signature: Idalia Murrieta MA February 25, 2024 8:06 AM documented in this encounter [facility] 02-25-2024 Note Patient Outreach (NE TNAV) SAVANNAH IRVIN ([id number]) 1965 F Date Time Provider Department 02/25/24 IDALIA MURRIETAV During your visit today, we recorded the following information about you: Idalia Murrieta MA 02/25/2024 1:19 PM Signed POPULATION HEALTH NAVIGATION OUTREACH Action/FYI Miladis Ledesma [place] Discuss/Due for: Medicare Wellness, Mammogram HCC Score: .24063 Outcome: 1st attempt - No Answer/Busy 2nd [...] Encounter Status:Closed by IDALIA MURRIETA on 02/25/24 [facility] 01-04-2024 Note HNO ID: [id number] Author: IDALIA MURRIETA MA Service: ? Author Type: Hearing Stenographer Type: Progress Notes Filed: 01/04/2024 10:48 Note Text: POPULATION HEALTH NAVIGATION OUTREACH Action/Miladis Galindo [place] Discuss/Due for: Medicare Wellness, Mammogram HCC Score: .22548 Outcome: 1st attempt - No Answer/Busy 2nd attempt - MyChart message sent Reason for Outreach Care Gap/HCC or Scheduling Wellness Visits Care Gaps due: Medicare Annual Wellness Visit Breast Cancer Screening Patient Contacted: Unable or unnecessary to reach patient: Unable to leave message MyChart message sent HCC related Navigation Signature: Idalia Murrieta MA January 04, 2024 7:47 AM [facility] 01-04-2024 History of Presen t illness Narrative POPULATION HEALTH NAVIGATION OUTREACH Action/Miladis Galindo [place] Discuss/Due for: Medicare Wellness, Mammogram HCC Score: .68729 Outcome: 1st attempt - No Answer/Busy 2nd attempt - MyChart message sent Reason for Outreach Care Gap/HCC or Scheduling Wellness Visits Care Gaps due: Medicare Annual Wellness Visit Breast Cancer Screening Patient Contacted: Unable or unnecessary to reach patient: Unable to leave message MyChart message sent HCC related Navigation Signature: Idalia Murrieta MA January 04, 2024 7:47 AM documented in this encounter [facility] 01-04-2024 Note Patient Outreach (SAMSON HOODAV) SAVANNAH IRVIN ([id number]) 1965 F Date Time Provider Department 01/04/24 IDAILA MURRIETA During your visit today, we recorded the following information about you: Idalia Murrieta MA 01/04/2024 10:48 AM Signed POPULATION HEALTH NAVIGATION OUTREACH Action/Miladis Galindo [place] Discuss/Due for: Medicare Wellness, Mammogram HCC Score: .08269 Outcome: 1st attempt - No Answer/Busy 2nd [...] Cmt: Miladis Ledesma [place] Prescriptions as of 01/04/2024 - albuterol HFA [...] Encounter Status:Closed by IDALIA MURRIETA on 01/04/24 [facility] 12-07-2023 Note HNO ID: [id number] Author: IDALIA MURRIETA MA Service: ? Author Type: Hearing Stenographer Type: Progress Notes Filed: 12/07/2023 10:43 Note Text: POPULATION HEALTH NAVIGATION OUTREACH Action/Miladis Galindo [place] Discuss/Due for: Medicare Wellness, Mammogram HCC Score: .99338 Outcome: 1st attempt - No Answer/Busy- Voicemail [...] Murrieta MA December 07, 2023 7:46 AM [facility] 12-07-2023 History of Presen t illness Narrative POPULATION HEALTH NAVIGATION OUTREACH Action/Miladis Galindo [place] Discuss/Due for: Medicare Wellness, Mammogram HCC Score: .89043 Outcome: 1st attempt - No Answer/Busy- Voicemail [...] 2023 7:46 AM documented in this encounter [facility] 12-07-2023 Note Patient Outreach (NE TNAV) SAVANNAH IRVIN ([id number]) 1965 F Date Time Provider Department 12/07/23 IDALIA MURRIETA During your visit today, we recorded the following information about you: Idalia Murrieta MA 12/07/2023 10:43 AM Signed POPULATION HEALTH NAVIGATION OUTREACH Action/Miladis Galindo [place] Discuss/Due for: Medicare Wellness, Mammogram HCC Score: .43083 Outcome: 1st attempt - No Answer/Busy- Voicemail [...] Encounter Status:Closed by IDALIA MURRIETA on 12/07/23 [facility] 10-29-2023 History of Presen t illness Narrative POPULATION HEALTH NAVIGATION OUTREACH Action/FYI Miladis Ledesma [place] Discuss/Due for: Medicare Wellness, Mammogram Outcome: 1st attempt - Not Available/Voicemail has not been set up yet 2nd attempt - [employer] message sent Reason for Outreach Care Gap/HCC or Scheduling Wellness Visits Care Gaps due: Medicare Annual Wellness Visit Breast Cancer Screening Patient Contacted: Unable or unnecessary to reach patient: Unable to leave message [employer] message sent Navigation Signature: Idalia Murrieta MA October 29, 2023 9:30 AM documented in this encounter [facility] 07-02-2023 Hospital Discharg e instructions Patient [...] an elimination diet. You can find an geoscience specialist in your area by contacting: [employer], www.aaaai.org [employer], www.acaai.org [...] think you are allergic to Explosive diarrhea 6052-7243 [employer]. [address] [place] [address]. All rights reserved. This information is not intended as a substitute for professional medical care. Always follow your healthcare professional's instructions. Follow Up Care 07/01/2023 19:32:51 With:KENISHA ABBASI III, MD Address: [address] [place] [phone]- [phone] When:2-4 days [facility] 07-01-2023 Note Discharge Instructions Thank you for allowing [facility] to assist you with your healthcare needs. [...] III, MD When Within 2-4 days Where: [address] [place] [address]- [phone] Allergies Peanuts (anaphylaxis) Medications Please ask your [...] an elimination diet. You can find an geoscience specialist in your area by contacting: [employer], www.aaaai.org [employer], www.acaai.org [...] think you are allergic to Explosive diarrhea 6130-9283 [employer]. [address] [place] [address]. All rights reserved. This information is not intended as a substitute for professional medical care. Always follow your healthcare professional's instructions. Additional Information VACCINATE! IT SAVES LIVES! Members of the community who have not yet received the COVID-19 vaccine and would like to receive it can visit one of [facility] vaccine clinics. There are many vaccine clinic locations within the [facility]. For locations and available times, please visit www.[email or web address].[place]. gov/. It is important to note that some COVID mobile vaccine clinics are held outdoors and may be canceled in rainy or stormy conditions. To learn more about pediatric vaccinations (ages 5-11), we invite you to visit the [facility] webpage. https://www.[facility].org/p ages/0309-Wxzza-Vcmczumhfnn-Freq oydzsb-Wzjfb-Yadxzcsvz.html To learn more about the COVID-19 vaccine, we invite you to visit the CDC website for a list of frequently asked questions. https://www.cdc.gov/coronavirus/ 2019-ncov/vaccines/faq.html [facility] Patient Portal Access Instructions: Stay connected with your healthcare team and access your personal medical information anytime with the [facility] Patient Portal. If you would like a full copy of your medical records please contact the [facility] Medical Records Department Wednesday through Wednesday between 8a.m. and 4:30p.m. Please follow the directions below to access the portal: 1.Access the email account you provided upon registration to the [facility].2.Look for an invitation email from [facility].3.Open the email and access the invitation link: Accept Invitation to [facility]4.Fill in the required siu to create your account. Sign into www.[employer] with your username and password that you [...] you will allow to register on the [employer] Patient Portal for access to your information. You can also access the [employer] Patient Portal on the [employer] maycol. Simply click on Health Records under Health Data and then click on the [employer] logo. HOW TO SAFELY DISPOSE OF PRESCRIPTION [...] Call your local pharmacy or go to http://[employer].Boosted Boards/2Q5Uf1j to find one close to you.3.Make use of household items: Use cat litter or old coffee grounds to dispose medications if other options are not available. Mix your drugs with these household products, seal them in an airtight container and throw it into the garbage. Call [facility]: [phone] to be sure your drugs can be [...] aware that I should contact my doctor. 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 Requested Prescriptions Pending Prescriptions Disp Refills albuterol HFA (VENTOLIN HFA) 90 mcg/actuation inhaler 18 g 5 Sig: inhale 2 puffs by mouth every 4 hours as directed if needed for wheezing shortness of breath Manoj Davidson APRN.CNP Patient has been identified by name and [...] Angela Leung LPN. documented in this encounter [facility] 06-05-2023 Progress note Note Date/Time June 05, 2023 8:48am [facility] Medical Records Department [address] [place] [address] Progress Note - Hospitalist 06/05/23 0839 MR#: [id number] Acct: [id number] Name: SAVANNAH IRVIN SRIDHAR Rep #:[id number] : 1965 57 From: Nito Thorne DO PCP: Dr. Ivette Welsh MD Status:TAMAR SANABRIA Location: [place] [address] Reason for Visit Reason for Visit: Diagnoses [...] 23:59 23:59 Intake Total 267.5 / 267.5 1849 Balance 267.5 / 267.5 1849 Lab / Micro Data 06/05/23 07:21 06/05/23 07:21 Labs: Laboratory Results - last 24 hr 06/04/23 21:30: WBC 13.7 H, RBC 5.13, Hgb 14.2, Hct 45.1, MCV 87.9, MCH 27.7, MCHC 31.5 L, RDW Std Deviation 44.2 H, RDW Coeff of Madhu 13.7, Plt Count 558 H, MPV 9.3, Immature Gran % (Auto) 0.300, Neut % (Auto) 61.9, Lymph % (Auto) 24.9, Live Oak % (Auto) 8.1, Eos % (Auto) 4.2, [...] 88.4 H, Lymph % (Auto) 10.5 L, Live Oak % (Auto) 0.5, Eos % (Auto) 0.0, [...] Keyur Gamboa MD at 22:44 EST , Physical Exam Const alert and no [...] has never had PFTs or seen a forestry faculty member before. I would be concerned patient has [...] Cosigner Signature (if applicable): CC: ~ Signed [facility] Work Phone: 1(284) 541-800811-18-2023 History and physical note Author Alexandru Holden [facility] June 05, 2023 2:37am Note Date/Time June 04, 2023 11:31pm [facility] Medical Records Department [address] [place] [address] H&P Exam - Hospitalist 06/04/23 2331 MR#: [id number] Acct: [id number] Name: SAVANNAH IRVIN Rep #:[id number] : 1965 57 From: Alexandru Holden MD PCP: Dr. Ivette Welsh MD Status:AD M DANIELE Location: [facility] [id number]- 1 HPI - General General Date of Admission: 06/04/23 Date of Service: 06/04/23 Chief Complaint: sob HPI Narrative SAVANNAH IRVIN, is a 57 F with a significant history of tobacco abuse; COPD and hypertension who presents emergency department for shortness of breath. [facility] to presentation and was treatedfor strep pneumoniae. She received about 3 doses of antibiotics. Thereafter she was not happy with the care at [facility] so she left. was not good so [...] whether she had a fever or not. [facility] Medical History Acute pyelonephritis Alcohol abuse Asthma [...] % (Auto) 61.9, Lymph % (Auto) 24.9, Live Oak % (Auto) 8.1, Eos % (Auto) 4.2, [...] 22:44 EST Reading Location ID and State: [facility] / [place] Tel , Service support , Assessment & Plan Assessment/Plan (1) COPD exacerbation: PLAN: Plan COPD exacerbation CXR independently interpreted: No acute pulmonary findings. Circumferential thickening of the distal esophagus. Scheduled DuoNeb Albuterol as needed Solu-Medrol [id number] ordered Given the emergency department and continued. [...] 70 minutes. Charges/Coding Visit Charges Inpatient E&M: 91622 Init Hosp L3 06/05/23 0237 <Electronically signed by Alexandru Holden MD> Cosigner Signature (if applicable): CC: Dr. Alexandru Holden MD; Dr. Ivette Welsh MD~ Signed [facility] Work Phone: 1(682) 787-530411-18-2023 Discharge summary Author Idalia Sanchez [facility] June 05, 2023 12:15am Note Date/Time June 04, 2023 8:51pm [facility] Medical Records Department [address] [place] [address] Emergency Department Summary 06/04/23 MR#: [id number] Acct: [id number] Name: SAVANNAH IRVIN SRIDHAR Rep #:[id number] : 1965 57 From: Idalia Sanchez MD PCP: Dr. Ivette Welsh MD Status:AD M DANIELE Location: [place] [address] HPI History of Present Illness Chief Complaint: Shortness of Breath Informant: patient Onset/Context/Timing Onset: Weeks Context: Gradual Onset Narrative Narrative: Patient present secondary to cough and shortness of breath. She states she was admitted to [facility] and cannot about a month ago with strep pneumonia. She got 3 doses of IV antibiotics and left the hospital because she was not happy with her care there. She states has had gradual worsening of her symptomsto include shortness of breath, cough, back pain. She states there is a couple times that she has had subjective fever and chills. [facility] Medical History Acute pyelonephritis Alcohol abuse [...] Medical decision making narrative: Patient placed on retinal angiographer. IV line established. Patient given aerosolsand Solu-Medrol. [...] % (Auto) 61.9 Lymph % (Auto) 24.9 Live Oak % (Auto) 8.1 Eos % (Auto) 4.2 [...] Keyur Gamboa MD at 22:44 EST , EKG Initial EKG: Attestation: I personally [...] Provider] - Disposition Disposition: Acute Care Hospital [facility] What to do if you have Problems For any increased pain, shortness of breath, bleeding, nausea or vomiting, chestpain, or any unexpected problems, contact your Primary Care Provider. Call [facility] ([phone]) or report to the closest Emergency Room. Call 911 if necessary. 06/05/23 0015 <Electronically signed by Idalia Sanchez MD> Cosigner Signature (if applicable): CC: Dr. Ivette Welsh MD ~ Signed [facility] Work Phone: 1(624) 250-946911-17-2023 Discharge summary Author Idalia Sanchez [facility] June 05, 2023 12:15am Note Date/Time June 04, 2023 8:51pm [facility] Medical Records Department [address] [place] [address] Emergency Department Summary 06/04/23 MR#: [id number] Acct: [id number] Name: SAVANNAH IRVIN SRIDHAR Rep #:[id number] : 1965 57 From: Idalia Sanchez MD PCP: Dr. Ivette Welsh MD Status:AD M DANIELE Location: [place] [address] HPI History of Present Illness Chief Complaint: Shortness of Breath Informant: patient Onset/Context/Timing Onset: Weeks Context: Gradual Onset Narrative Narrative: Patient present secondary to cough and shortness of breath. She states she was admitted to [facility] and cannot about a month ago with strep pneumonia. She got 3 doses of IV antibiotics and left the hospital because she was not happy with her care there. She states has had gradual worsening of her symptomsto include shortness of breath, cough, back pain. She states there is a couple times that she has had subjective fever and chills. [facility] Medical History Acute pyelonephritis Alcohol abuse [...] Medical decision making narrative: Patient placed on retinal angiographer. IV line established. Patient given aerosolsand Solu-Medrol. [...] % (Auto) 61.9 Lymph % (Auto) 24.9 Live Oak % (Auto) 8.1 Eos % (Auto) 4.2 [...] Keyur Gamboa MD at 22:44 EST , EKG Initial EKG: Attestation: I personally [...] Provider] - Disposition Disposition: Acute Care Hospital [facility] What to do if you have Problems For any increased pain, shortness of breath, bleeding, nausea or vomiting, chestpain, or any unexpected problems, contact your Primary Care Provider. Call [facility] ([phone]) or report to the closest Emergency Room. Call 911 if necessary. 06/05/23 0015 <Electronically signed by Idalia Sanchez MD> Cosigner Signature (if applicable): CC: Dr. Ivette Welsh MD ~ Signed [facility] Work Phone: 1(253) 253-512011-01-2023 History of Present illness Narrative* Radha Victoria RN - 05/19/2023 1:34 PM EDT TRANSITION CARE MANAGEMENT (TCM) FOLLOW-UP NOTE Provider Action/FYI Discharge Network Status: In-Network Discharge Summary: Pt discharged from [facility] on 05/01/23. 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 Discharge Network Status: In-Network Discharge Summary: Pt discharged from [facility] on 05/01/23. Admitted for: Difficulty breathing Acute hypoxic respiratory failure Severe sepsis Streptococcal pneumonia Left lower rib cage pain GERD with dysphagia Previous history of PE/DVTs, however off of Xarelto due to massive GI bleed history Active drug abuse, denies IV abuse though Active tobacco abuse Concerns: Window Sash Installer plan for next outreach: f/u in 2 weeks. RYAN Education Ordered -: No Signature Damaris Francis RN May 12, 2023 [facility] History of Present illness Narrative* Meli Olsen RN - 05/04/2023 10:04 AM EDT TRANSITIONAL CARE MANAGEMENT (TCM) COMMUNITY MONITORING PROGRAM Provider Action/FYI: Initial TCM Outgreach - 2nd attempt Pt has no contact number Left general messages left for sister Maritza Light, and Luis for patient to call back PCP office for F/U Reached friend Lurdes and obtained contact number [phone] attempted to call bur VM box not set up SUMMARY: HR 21 Discharge Network Status: In-Network Discharge Pt discharged from [facility] on 05/01/23. Admitted for: Difficulty breathing Acute [...] difficulty in breathing for few days to [facility]. Patient diagnosed with streptococcal pneumonia, received [...] TCM Home Visit Referral Source of Stratification: [facility] Hospital Admission Status: Discharged Readmission Risk [...] and spouse to have patient return call [phone] today until 4 or tomorrow after 0800 Not used mychart at all since 01/25/2020 unable to contact patient via [employer] Speech recommendations : Alternate bites and sips, Self-monitoring, Small Bite/Sip, Maintain an upright position 20-30 minutes following all oral intake, Anti-Reflux precautions SUMMARY: Discharge Network Status: In-Network Discharge Pt discharged from [facility] on 05/01/23. Admitted for: Difficulty breathing Acute [...] difficulty in breathing for few days to [facility]. Patient diagnosed with streptococcal pneumonia, received [...] 03, 2023 1:03 PM [facility] NoteHNO ID: [id number] Author: Vane Rosas MD Service: General Internal [...] LYMPHP 16.3 15.8 6.5 CHEM: Recent Labs 05/01/2363604/30/23 0611 04/29/23 0910 NA 142 138 138 [...] with Gram Stain (RESPIRATORY CULTURE + STAIN) [[id number]] (Abnormal) Collected: 04/30/23552 Order Status: Completed Specimen: Micro Specimen from SPUTUM Updated: 04/30/231933 Gram Stain Many Polymorphonuclear leukocytes Moderate Epithelial cells Many Gram positive cocci Urine Streptococcus Pneumoniae Ag [[id number]] (Abnormal) Collected: 04/29/232151 Order Status: Completed Specimen: Urine Random Updated: 04/29/232225 Strep pneumo AG Result Positive for Streptococcus pneumoniae antigen. Blood Culture: Positive Micro-30 Days Procedure Component Value Units Date/Time Sputum Culture with Gram Stain (RESPIRATORY CULTURE + STAIN) [[id number]] (Abnormal) Collected: 04/30/23552 Order Status: Completed Specimen: Micro Specimen from SPUTUM Updated: 04/30/231933 Gram Stain Many Polymorphonuclear leukocytes Moderate Epithelial cells Many Gram positive cocci Urine Streptococcus Pneumoniae Ag [[id number]] (Abnormal) Collected: 04/29/232151 Order Status: Completed Specimen: Urine Random Updated: 04/29/232225 Strep pneumo AG Result Positive for Streptococcus pneumoniae antigen. (more content not included)...[facility]10-14-2023 NoteHNO ID: [id number] Author: Note, Interface Service: ? Author Type: ? Type: Progress Notes Filed: 05/01/2023 5:48 AM Note Text: Epic Scheduled Downtime: 05/01/2023 1:00:00 AM to 05/01/2023 1:28:00 [facility]10-13-2023 NoteHNO ID: [id number] Author: Letha Dunlap LSW Service: Care Management Author Type: Wrecker Operator Type: Care Mgt Progress Note Filed: 04/30/2023 [...] April 30, 2023 TIME: 3:39 PM PAGER/CONTACT #:[facility]10-13-2023 NoteHNO ID: [id number] Author: Vane Rosas MD Service: General Internal [...] better than yesterday. Also stated that in 2016 she had blood clots in the lungs, [...] Value Units Date/Time Urine Streptococcus Pneumoniae Ag [[id number]] (Abnormal) Collected: 04/29/232151 Order Status: Completed Specimen: Urine Random Updated: 04/29/232225 Strep pneumo AG Result Positive for Streptococcus pneumoniae antigen. Blood Culture: Positive Micro-30 Days Procedure Component Value Units Date/Time Urine Streptococcus Pneumoniae Ag [[id number]] (Abnormal) Collected: 04/29/232151 Order Status: Completed Specimen: Urine Random Updated: 04/29/232225 Strep pneumo AG Result Positive for Streptococcus pneumoniae antigen. Medication and Non-Pharmacologic VTE Prophylaxis/Anticoagulants 04/29/23 1200 activity - mobilize patient (wy,vt) VTE Prophylaxis: VTE prophylaxis appropriate Assesment: Acute respiratory failure with hypoxia/severe sepsis/streptococcal pneumonia - Continue while admitted IV Rocephin and p.o. azithromycin. - DuoNebs 4 times daily. - Albuterol aerosol q 4 hrs prn SOB, wheezing or hypoxia. -Tylenol as needed fever or mild/moderate pain -Morphine IV a (more content not included)...[facility]08-07-2023 Hospital Discharge instructions Patient Education 02/22/2023 [...] Swelling, pain or redness in one leg [phone] [employer]. [address] [place] [address], [place] [address]. All rights reserved. This information is not intended as a substitute for professional medical care. Always follow yourhealthcare professional's instructions. Follow Up Care 02/22/2023 11:47:18 With:KENISHA ABBASI Address: [address] [place] [phone]- [phone] Business (1) When:2-4 days Comments:Schedule appointment for close follow-up.Position of comfort, limit activity as tolerated.Use Tylenol, Advil or Aleve for pain as needed.Resume all routine medications.Return to the ED if symptoms worsen. [facility] 08-07-2023 Note ORIGINAL EXAMINATION: ONE XRAY [...] Date: 02/22/2023 12:28:42 PM Ordering Provider: [facility] Note Sinus rhythm Biatrial enlargement Nonspecific T abnrm, anterolateral leads Prolonged QT interval Electronic Signature: ELKE GARCIA MD 02/22/2023 11:51:31[facility] 08-03-2023 History of Present illness Narrative* [...] a 7 day TCM. Pt seen in [facility] ED on 02/08/23 for flank pain [...] has allergies to nuts. Below copied from [employer]: Chief Complaint: Flank Pain Informant: patient Narrative [...] Right-sided pyelonephritis: [facility] She is not having sinus symptoms [...] ordered. 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 Salazar forestry faculty member. 5. Anxiety and depression history of suicidal attempt more than 10 years ago: Patient states she isnot on an antidepression medication. 02/09: Patient denies substance use but takes marijuana. Started on paroxetine. 02/10 follow-up with PCP. Living will/advanced directive/end of life care: Patient does not have living will or advanced directive or designated power of ip attorney for health. After discussion of benefits/risks [...] Past Histories independently gathered by the clinical network support administrator and the remaining scribed note accurately describes my personal service to the patient. Ivette Welsh MD The documentation for this note was completed by Deepika Pierce Ma acting as scribe for Ivette Welsh MD. February 18, 2023 10:36 AM. Deepika Pierce Ma documented in this encounterP[facility]07-27-[facility]23 Discharge summary Author Jama Bustamante [facility] February 11, 2023 8:34am Note Date/Time February 11, 2023 7:55 am [facility] Medical Records Department [address] [place] [address] Discharge Summary 02/11/23 0834 MR#: [id number] Acct: [id number] Name: SAVANNAH IRVIN Rep #:[id number] : 1965 57 From: Jama East PCP: Dr. Ivette Welsh MD Status:AD M IN Location: [place] [address] Providers Date of Admission: 02/08/23 Date of [...] ordered. 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 Salazar forestry faculty member. 5. Anxiety and depression history of suicidal attempt more than 10 years ago: Patient states she is not on an antidepression medication. 02/09: Patient denies substance use but takes marijuana. Started on paroxetine. 02/10 follow-up with PCP. Living will/advanced directive/end of life care: Patient does not have living will or advanced directive or designated power of ip attorney for health. After discussion of benefits/risks [...] Forearm Blood Culture - Preliminary GNR lactose tail dogger 02/08/23 14:06 Blood Culture (Wb) - Anticubital Left Blood Culture - Preliminary GNR lactose tail dogger 02/08/23 13:00 Urine, Clean Catch Urine Culture [...] (Auto) 68.8, Lymph % (Auto) 16.4 L, [place] % (Auto) 12.0 H, Eos % (Auto) [...] (Auto) 68.8, Lymph % (Auto) 16.4 L, [place] % (Auto) 12.0 H, Eos % (Auto) [...] Forearm Blood Culture - Preliminary GNR lactose tail dogger 02/08/23 14:06 Blood Culture (Wb) - Anticubital Left Blood Culture - Preliminary GNR lactose tail dogger Meaningful Use Info Meaningful Use Diagnoses (Choose [...] Self Care Charges/Coding Visit Charges Inpatient E&M: 46075 Disch Hosp >30min 02/11/23 0834 <Electronically signed by Jama Bustamante MD> Cosigner Signature (if applicable): CC: Dr. Ivette Welsh MD; Dr. Jama Bustamante MD~ Signed [facility] Work Phone: 1(515) 456-388907-27-2023 Discharge summary Author Jama Bustamante [facility] February 11, 2023 8:02am Note Date/Time February 11, 2023 8:02 am [facility] Medical Records Department [address] [place] [address] Instructions for Home/Discharge Instructions 02/11/23 0801 MR#: [id number] Acct: [id number] Name: SAVANNAH IRVIN SRIDHAR Rep #:[id number] : 1965 57 From: Jama East PCP: [...] CC: Dr. Ivette Welsh MD ~ Signed [facility] Work Phone: 1(751) 240-239107-27-2023 Discharge summary Author Jama Bustamante [facility] February 11, 2023 7:52am Note Date/Time February 11, 2023 7:49 am [facility] Medical Records Department [address] [place] [address] Instructions for Home/Discharge Instructions 02/11/23 0748 MR#: [id number] Acct: [id number] Name: SAVANNAH IRVIN Rep #:[id number] : 1965 57 From: Jama East PCP: [...] CC: Dr. Ivette Welsh MD ~ Signed [facility] Work Phone: 1(806) 936-142107-26-2023 Progress note Author Jama Bustamante [facility] February 10, 2023 6:14pm Note Date/Time February 10, 2023 6:14 pm [facility] Medical Records Department [address] [place] [address] Progress Note - Hospitalist 02/10/23 0721 MR#: [id number] Acct: [id number] Name: SAVANNAH IRVIN SRIDHAR Rep #:[id number] : 1965 57 From: Jama East PCP: Dr. Ivette Welsh MD Status:AD M IN Location: [place] [id number] Reason for Visit Reason for Visit: Diagnoses [...] 85.6 H, Lymph % (Auto) 6.8 L, [place] % (Auto) 6.3, Eos % (Auto) 0.5, Baso % (Auto) 0.2, Absolute Neuts (auto) 15.0 H, Absolute Lymphs (auto) 1.19, Nucleated RBC % 0 Micro: Microbiology 02/08/23 15:01 Blood Culture (Wb) - Left Forearm Blood Culture - Preliminary GNR lactose tail dogger 02/08/23 14:06 Blood Culture (Wb) - Anticubital Left Blood Culture - Preliminary GNR lactose tail dogger Radiography Diagnostic Testing: Radiology Impression Renal Ultrasound [...] ordered. 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 Salazar forestry faculty member. 5. Anxiety and depression history of suicidal attempt more than 10 years ago: Patient states she is not on an antidepression medication. 02/09: Patient denies substance use but takes marijuana. Started on paroxetine. Living will/advanced directive/end of life care: Patient does not have living will or advanced directive or designated power of ip attorney for health. After discussion of benefits/risks procedures involved with full code, DNR CC arrest and DNR CC, the patient opted for full code. Patient does want artificial life support including intubation, tube feed, ventilator and/chest compression, central venous catheter, vasopressor and DC shock if needed Total time spent in [id number] encounter in discussion of advanced directive 17 minutes. Microbiology Past 72 Hours 02/08/23 13:00 Urine, Clean Catch Urine Culture - Preliminary Presumptive E. coli 02/08/23 15:01 Blood Culture (Wb) - Left Forearm Blood Culture - Preliminary GNR lactose tail dogger 02/08/23 14:06 Blood Culture (Wb) - Anticubital Left Blood Culture - Preliminary GNR lactose tail dogger Laboratory Results 02/08/23 12:45: Diff Path Review [...] 85.6 H, Lymph % (Auto) 6.8 L, [place] % (Auto) 6.3, Eos % (Auto) 0.5, [...] 14:59 EDT Reading Location ID and State: [address] [place] [address] , Service support , Charges/Coding Visit Charges Inpatient E&M: 16444 Subs Hosp L2 02/10/23 1814 <Electronically signed by Jama Bustamante MD> Cosigner Signature (if applicable): CC: ~ Signed [facility] Work Phone: 1(536) 412-733307-25-2023 Progress note Author Jama Bustamante [facility] February 09, 2023 11:57am Note Date/Time February 09, 2023 11:5 6am [facility] Medical Records Department [address] [place] [address] Progress Note - Hospitalist 02/09/23 1149 MR#: [id number] Acct: [id number] Name: SAVANNAH IRVIN Rep #:[id number] : 1965 57 From: Jama East PCP: Dr. Ivette Welsh MD Status:AD M IN Location: [facility] UZ701-5 Reason for Visit Reason for Visit: Diagnoses [...] 82.0 H, Lymph % (Auto) 8.4 L, [place] % (Auto) 8.3, Eos % (Auto) 0.1, [...] Clarity Cloudy, Urine pH 6.5, Ur Specific [place] 1.015, Urine Protein 100 H, Urine Glucose [...] (Auto) 85.4 H, Lymph % (Auto) 5.7 L,[place] % (Auto) 6.7, Eos % (Auto) 0.1, [...] ordered. 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 Salazar forestry faculty member. 5. Anxiety and depression history of suicidal attempt more than 10 years ago: Patient states she is not on an antidepression medication. 02/09: Patient denies substance use but takes marijuana. Started on paroxetine. Living will/advanced directive/end of life care: Patient does not have living will or advanced directive or designated power of ip attorney for health. After discussion of benefits/risks procedures involved with full code, DNR CC arrest and DNR CC, the patient opted for full code. Patient does want artificial life support including intubation, tube feed, ventilator and/chest compression, central venous catheter, vasopressor and DC shock if needed Total time spent in [id number]-[id number] encounter in discussion of advanced directive 17 [...] 82.0 H, Lymph % (Auto) 8.4 L, [place] % (Auto) 8.3, Eos % (Auto) 0.1, [...] Clarity Cloudy, Urine pH 6.5, Ur Specific [place] 1.015, Urine Protein 100 H, Urine Glucose [...] (Auto) 85.4 H, Lymph % (Auto) 5.7 L,[place] % (Auto) 6.7, Eos % (Auto) 0.1, Baso % (Auto) 0.3, Absolute Neuts (auto) 23.3 H, Absolute Lymphs (auto) 1.55, Nucleated RBC % 0, Diff Path Review May foll, Sodium 133 L, Potassium 4.5, Chloride [...] distal esophagus. Charges/Coding Visit Charges Inpatient E&M: 22216 Subs Hosp L2 02/09/23 1157 <Electronically signed by Jama Bustamante MD> Cosigner Signature (if applicable): CC: ~ Signed [facility] Work Phone: [phone]) 297-788907-24-2023 Discharge summary Author Omega Mejía [facility] February 08, 2023 5:23pm Note Date/Time February 08, 2023 12:3 3pm [facility] Medical Records Department [address] [place] [address] Emergency Department Summary 02/08/23 MR#: [id number] Acct: [id number] Name: SAVANNAH IRVIN SRIDHAR Rep #:[id number] : 1965 57 From: Omega Marroquin PCP: Dr. Ivette Welsh MD Status:AD M IN Location: [place] [id number] HPI HPI - GI History of Present Illness Chief Complaint: Flank Pain Informant: patient Narrative Narrative: Intermittent right flank pain for the past 4 days yesterday's persistent radiograph her right lower quadrant. Chills however no fevers possible bloody urine states is darker. No dysuria. Cholecystectomy 15 years ago. Denies fevers. Nausea without vomiting. No history of kidney stones. Prior similar symptoms: No PFSH [facility]LY [facility], [facility] Medical History Alcohol abuse Asthma Chronic pain [...] clinician: N/A This note was generated with [employer] dictation software. It may contain incorrectwords, spelling, [...] 82.0 H Lymph % (Auto) 8.4 L [place] % (Auto) 8.3 Eos % (Auto) 0.1 [...] Clarity Cloudy Urine pH 6.5 Ur Specific [place] 1.015 Urine Protein 100 H Urine Glucose [...] pyelonephritis, Leukocytosis Disposition Disposition: Acute Care Hospital [facility] Discharge Date/Time: 02/08/23 16:06 What to do if you have Problems For any increased pain, shortness of breath, bleeding, nausea or vomiting, chestpain, or any unexpected problems, contact your Primary Care Provider. Call [facility] ([phone]) or report to the closest Emergency Room. Call 911 if necessary. 02/08/231722 <Electronically signed by Omega Marroquin> Cosigner Signature (if applicable): CC: Dr. Ivette Welsh MD ~ Signed [facility] Work Phone: [phone]) 356-204507-24-2023 History and physical note Author Jama Bustamante [facility] February 08, 2023 4:09pm Note Date/Time February 08, 2023 3:04 pm [facility] Medical Records Department [address] [place] [address] H&P Exam - Hospitalist 02/08/23 1501 MR#: [id number] Acct: [id number] Name: BRANDEESAVANNAHXander WALLER Rep #:[id number] : 1965 57 From: Jama East PCP: Dr. Ivette Welsh MD Status:AD M IN Location: [place] UZ702-1 HPI - General General Date of Admission: [...] years ago. She is anxious and fearful. [facility], [facility] Medical History Alcohol abuse Asthma Chronic pain [...] 82.0 H, Lymph % (Auto) 8.4 L, [place] % (Auto) 8.3, Eos % (Auto) 0.1, [...] Clarity Cloudy, Urine pH 6.5, Ur Specific [place] 1.015, Urine Protein 100 H, Urine Glucose [...] ordered. 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 Salazar forestry faculty member. 5. Anxiety and depression history of suicidal attempt more than 10 years ago: Patient states she is not on an antidepression medication. Living will/advanced directive/end of life care: Patient does not have living will or advanced directive or designated power of ip attorney for health. After discussion of benefits/risks procedures involved with full code, DNR CC arrest and DNR CC, the patient opted for full code. Patient does want artificial life support including intubation, tube feed, ventilator and/chest compression, central venous catheter, vasopressor and DC shock if needed Total time spent in [id number]-[id number] encounter in discussion of advanced directive 17 minutes. Laboratory Results 02/08/23 12:45: WBC 24.7 H, RBC 5.15, Hgb 14.4, Hct 46.1, MCV 89.5, MCH 28.0, MCHC 31.2 L, RDW Std Deviation 44.7 H, RDW Coeff of Madhu 13.7, Plt Count 388, MPV9.4, Immature Gran % (Auto) 0.800, Neut % (Auto) 82.0 H, Lymph % (Auto) 8.4 L, [place] % (Auto) 8.3, Eos % (Auto) 0.1, [...] Clarity Cloudy, Urine pH 6.5, Ur Specific [place] 1.015, Urine Protein 100 H, Urine Glucose [...] distal esophagus. Charges/Coding Visit Charges Inpatient E&M: 22131 Init Hosp L3 Procedures Hospitalists Procedures: 95249 Advncd Care Plan 30 Min 02/08/23 1609 <Electronically signed by Jama Bustamante MD> Cosigner Signature (if applicable): CC: Dr. Ivette Welsh MD; Dr. Jama Bustamante MD~ Signed [facility] Work Phone: 1(278) 287-345206-05-2023 Miscellaneous Notes* Telephone Encounter - Manoj Davidson APRN.CNP - 12/21/2022 12:25 PM EDT The following approved medication requests have been transmitted electronically. Requested Prescriptions Pending Prescriptions Disp Refills albuterol HFA (VENTOLIN HFA) 90 mcg/actuation inhaler 18 g 5 Sig: inhale 2 puffs by mouth every 4 hours as directed if needed for wheezing shortness of breath Manoj Davidson APRN.CNP * Telephone Encounter - Lindsay Muse MA - 12/21/2022 12:17 PM EDT Patient phones requesting refills as follows: Requested Prescriptions Pending Prescriptions Disp Refills albuterol HFA (VENTOLIN HFA) 90 mcg/actuation inhaler 18 g 5 Sig: inhale 2 puffs by mouth every 4 hours as directed if needed for wheezing shortness of breath Please review and advise. Lindsay Muse MA documented in this encounterPike [facility]04-28-2023 History of Present illness Narrative* Aye [...] 13, 2022 4:46 PM documented in this encounterPike [facility] Hospital02-22-[address] Leos [facility] September 09, 2022 5:47am Note Date/Time September 09, 2022 3:16am [facility] Medical Records Department [address] [place] [address] Emergency Department Summary 09/09/22 MR#: [id number] Acct: [id number] Name: SAVANNAH IRVIN Rep #:[id number] : 1965 57 From: Reymundo Leos MD [...] History of cholecystectomy no other abdominal surgeries. [facility] Medical History Alcohol abuse Asthma Chronic [...] PO Q6H PRN PRN abdominal discomfort #20 [id number]/22/23 [Rx Last Taken Unknown] Allergy/AdvReac Type Severity [...] % (Auto) 67.1 Lymph % (Auto) 22.5 [place] % (Auto) 7.4 Eos % (Auto) 2.0 [...] Clarity Clear Urine pH 7.0 Ur Specific [place] 1.010 Urine Protein Negative Urine Glucose (UA) [...] your Primary Care Provider. Call [facility] ([phone]) or report to the closest Emergency Room. Call 911 if necessary. 09/09/22 0547 <Electronically signed by Reymundo Leos MD> Cosigner Signature (if applicable): CC: Dr. Ivette Welsh MD ~ Signed [facility] Work Phone: 1([phone]) 554-789512-12-2022 History of Present illness Narrative* Susanna Lazar Population Health Navigator - 06/29/2022 11:53 AM EST POPULATION HEALTH NAVIGATION OUTREACH Action/I HCC gaps- Diagnosis with HCC gap left: M47.812 - Cervical spine arthritis F10.11 - Alcohol abuse, in remission Outcome- lvm/sent [employer] to return call and schedule an appt to verify/establish care with provider at [facility] if needed. Last office visit- 09-29-21 No future appt scheduled- verify pcp/establish care if needed Also due/discuss- bp, mammogram, flu vaccine Pt identified by name and : NO Outreach Outcome/Action Unable to reach patient: Left message [employer] message sent Did you use a PCP flex slot to schedule this appointment? N/A Reason for Outreach HCC or suspected condition Payer: Payor: [facility] MEDICAID / Plan: [facility] MEDICAID / Product Type: Medicaid / Care [...] due on 03/31/2022 Navigation Signature: Susanna Lazar [facility] Health Navigator June 29, 2022 11:53 AM Electronically signed by Susanna Lazar [facility] Satellite Navigator at 06/29/2022 11:56 AM EST documented in this encounterPike [facility] Hospital12-07-2022 History of Present illness Narrative* Marko Sanchez - 06/24/2022 11:43 AM EST Savannah Irvin is identified through a medication adherence outreach initiative based on pharmacy claims data from [employer] (insurer) for CAMP[facility] medication(s). Patient is reviewed [...] student documentation and outreach below. Jacquie Cortez RPh PharmD BCACP documented in this encounterPike [facility] Hospital11-18-2016 History of Past illness Narrative* Problem Noted Date Resolved Date Seizure disorder 06/05/2016 10/12/2017 Rotator cuff syndrome of both shoulders 06/05/20 16 10/12/2017 Anemia due to GI blood loss 03/02/201602/16 Rectal bleeding 03/02/2016 03/03/2017 Chronic prescription opiate use 02/13/2016 10/12/2017 [place]'s syndrome 02/06/2016 10/12/2017 Thrombocytosis 12/10/2015 07/25/2020 Pulmonary [...] of this encounter (statuses as of 06/25/2022) [facility] History of Past illness Narrative* Problem Noted Date Resolved Date Seizure disorder 06/05/2016 10/12/2017 Rotator cuff syndrome of both shoulders 06/05/20 16 10/12/2017 Anemia due to GI blood loss 03/02/201602/16 Rectal bleeding 03/02/2016 03/03/2017 Chronic prescription opiate use 02/13/2016 10/12/2017 [place]'s syndrome 02/06/2016 10/12/2017 Thrombocytosis 12/10/2015 07/25/2020 Pulmonary [...] of this encounter (statuses as of 06/29/2022) [facility] of Past illness Narrative* Problem [...] of this encounter (statuses as of 10/01/2022) [facility] of Past illness Narrative* Problem Noted Date Resolved Date Seizure disorder 06/05/2016 10/12/2017 Rotator cuff syndrome of both shoulders 06/05/20 16 10/12/2017 Anemia due to GI blood loss 03/02/201602/16 Rectal bleeding 03/02/2016 03/03/2017 Chronic prescription opiate use 02/13/2016 10/12/2017 [place]'s syndrome 02/06/2016 10/12/2017 Thrombocytosis 12/10/2015 07/25/2020 Pulmonary [...] of this encounter (statuses as of 11/23/2022) [facility] of Past illness Narrative* Problem Noted Date Resolved Date Seizure disorder 06/05/2016 10/12/2017 Rotator cuff syndrome of both shoulders 06/05/20 16 10/12/2017 Anemia due to GI blood loss 03/02/201602/16 Rectal bleeding 03/02/2016 03/03/2017 Chronic prescription opiate use 02/13/2016 10/12/2017 [place]'s syndrome 02/06/2016 10/12/2017 Thrombocytosis 12/10/2015 07/25/2020 Pulmonary [...] of this encounter (statuses as of 12/21/2022) [facility] of Past illness Narrative* Problem Noted Date Diagnosed Date Resolved Date Seizure disorder 06/05/2016 10/12/2017 Rotator cuff syndrome of both shoulders 06/05/2016 10/12/2017 Anemia due to GI blood loss 03/02/2016 03/03/2017 Rectal bleeding 03/02/2016 03/03/2017 Chronic prescription opiate use 02/13/2016 10/12/2017 [place]'s syndrome 02/06/2016 8 Thrombocytosis 12/10/2015 07/25/2020 Pulmonary [...] of this encounter (statuses as of 02/19/2023) [facility] of [facility] illness Narrative* Problem [...] of this encounter (statuses as of 05/04/2023) [facility] of [facility] illness Narrative* Problem Noted Date Diagnosed Date Resolved Date Seizure disorder 06/05/2016 10/12/2017 Rotator cuff syndrome of both shoulders 06/05/2016 10/12/2017 Anemia due to GI blood loss 03/02/2016 03/03/2017 Rectal bleeding 03/02/2016 03/03/2017 Chronic prescription opiate use 02/13/2016 10/12/2017 [place]'s syndrome 02/06/2016 8 Thrombocytosis 12/10/2015 07/25/2020 Pulmonary [...] of this encounter (statuses as of 05/12/2023) [facility] of [facility] illness Narrative* Problem [...] of this encounter (statuses as of 05/19/2023) [facility] of Past illness Narrative* Problem Noted Date Diagnosed Date Resolved Date Seizure disorder 06/05/2016 10/12/2017 Rotator cuff syndrome of both shoulders 06/05/2016 10/12/2017 Anemia due to GI blood loss 03/02/2016 03/03/2017 Rectal bleeding 03/02/2016 03/03/2017 Chronic prescription opiate use 02/13/2016 10/12/2017 [place]'s syndrome 02/06/2016 8 Thrombocytosis 12/10/2015 07/25/2020 Pulmonary [...] of this encounter (statuses as of 06/18/2023) [facility] of Past illness Narrative* Problem Noted Date Diagnosed Date Resolved Date Seizure disorder 06/05/2016 10/12/2017 Rotator cuff syndrome of both shoulders 06/05/2016 10/12/2017 Anemia due to GI blood loss 03/02/2016 03/03/2017 Rectal bleeding 03/02/2016 03/03/2017 Chronic prescription opiate use 02/13/2016 10/12/2017 [place]'s syndrome 02/06/2016 8 Thrombocytosis 12/10/2015 07/25/2020 Pulmonary [...] of this encounter (statuses as of 10/29/2023) [facility] of [facility] illness Narrative* Problem [...] of this encounter (statuses as of 11/01/2023) [facility] HospitalConsult note Author Sri Chavez [facility] February 11, 2023 10:01am Note Date/Time February 11, 2023 10:0 1am [facility] Medical Records Department [address] [facility] [place] [address] Counseling Note - Pharmacy 02/11/23 1000 MR#: [id number] Acct: [id number] Name: SAVANNAH IRVIN Rep #:[id number] : 1965 57 From: Sri Chavez PCP: Dr. Ivette Welsh MD Status:AD M IN Y Location: [facility] [id number] Pharmacy [facility] Pharmacy Service has performed discharge medication [...] and discrepancies were resolved. Patient counselled by Deniz MartinezD Candidate 02/11/23 1001 <Electronically signed by Sri Chavez > Date _ Sri Regula Cosigner Signature (if applicable): Date CC: ~ Signed [facility] Work Phone: Discharge summary Author Nito Thorne [facility] June 05, 2023 1:22pm Note Date/Time June 05, 2023 1:18pm [facility] Medical Records Department [address] [place] [address] Discharge Summary 06/05/23 1314 MR#: [id number] Acct: [id number] Name: SAVANNAH IRVIN Rep #:[id number] : 1965 57 From: Nito Thorne DO PCP: Dr. Ivette Welsh MD Status:[facility] Location: [place] [address] Providers Date of Admission: 06/04/23 Primary Care [...] has never had PFTs or seen a forestry faculty member before. I would be concerned patient has [...] % (Auto) 61.9, Lymph % (Auto) 24.9, [place] % (Auto) 8.1, Eos % (Auto) 4.2, [...] 88.4 H, Lymph % (Auto) 10.5 L, [place] % (Auto) 0.5, Eos % (Auto) 0.0, [...] 22:44 EST Reading Location ID and State: [facility] / [place] Tel , Service support , D/C Instructions [...] I do recommend that you see a forestry faculty member for chronic maintenance medications but also to [...] Instructions: NOT TAKING Referrals / Follow Up: [facility] [Provider Group] - Within 3 Months [facility] [Provider Group] - Within 1 Month Ivette Welsh MD [Primary Care Provider] - Within 2 Weeks Disposition Disposition (needs filled in before D/C Order can be placed): Home, Self Care Charges/Coding Visit Charges Inpatient E&M: 06718 Disch Hosp >30min 06/05/23 1322 <Electronically signed by Nito Thorne DO> Cosigner Signature (if applicable): CC: Dr. Nito Thorne DO; Dr. Ivette Welsh MD~ Signed [facility] Work Phone: Evaluation + Plan note No data available for this section [facility] Evaluation noteNo assessment information available [facility] Work Phone: Evaluation note* Diagnosis Chronic bilateral low back pain without sciatica documented in this encounter [facility] note* Diagnosis Encounter for screening mammogram for breast cancer documented in this encounter [facility] note* Diagnosis Moderate persistent asthma with acute exacerbation Chronic bronchitis, unspecified chronic bronchitis type (HCC) documented in this encounter [facility] note* Diagnosis Onset Date Resolution Status Acute pyelonephritis acute Acute right flank pain acute Leukocytosis acute [facility] Work Phone: Evaluation note* Diagnosis Hospital discharge follow-up- Primary Other follow-up examination Acute pyelonephritis Acute pyelonephritis without lesion of renal medullary necrosis Chronic obstructive pulmonary disease, unspecified COPD type (HCC) Dysphagia, unspecified type documented in this encounter [facility] note* Diagnosis Onset Date Resolution Status Acute right flank pain resol caesar Gastroesophageal reflux disease acute COPD exacerbation chronic Hypertension [facility] Work Phone: Evaluation note* Diagnosis Onset Date Resolution Status Acute right flank pain resol caesar Esophagitis acute Gastroesophageal reflux disease acute Hypertension, accelerated ac james COPD exacerbation chronic Hypertension [facility] Work Phone: Evaluation note* Diagnosis Moderate persistent asthma with acute exacerbation Chronic bronchitis, unspecified chronic bronchitis type (HCC) documented in this encounter [facility] note* Diagnosis Encounter for screening mammogram for breast cancer documented in this encounter [facility] note* Diagnosis Acute cough documented in this encounter [facility] note* Diagnosis Moderate persistent asthma with acute exacerbation Chronic bronchitis, unspecified chronic bronchitis type (HCC) documented in this encounter [facility] note* Diagnosis Hospital discharge follow-up- Primary Other follow-up examination Dysphagia, unspecified type Chronic obstructive pulmonary disease, unspecified COPD type (HCC) Bacterial pneumonia Bacterial pneumonia, unspecified Sore throat Acute pharyngitis documented in this encounter [facility] note* Diagnosis Sore throat- Primary Acute pharyngitis URI, acute Acute upper respiratory infections of unspecified site documented in this encounter [facility] note* Diagnosis Encounter for screening mammogram for breast cancer documented in this encounter [facility] note* Diagnosis Moderate persistent asthma with acute exacerbation (HCC) Chronic bronchitis, unspecified chronic bronchitis type (HCC) documented in this encounter [facility] Discharge instructions Additional Instructions Your imaging studies showed a fractured heel. Use your crutches to help with weightbearing and wear your walking boot for stabilization of the fracture. Follow-up with podiatry for repeat evaluation and return to the ER should [facility] have any [facility] Additional Instructions Plenty of fluids and rest. Zofran for nausea. Protonix for your reflux and your esophagitis. 40 mg a day for the next 2 weeks. Follow-up with your doctor to ensure you are improving.[facility] Work Phone: Hospital Discharge instructions Additional Instructions Follow-up with your primary care physician, return back to the ED if symptoms change or worsen. Tylenol and Motrin as needed for fever. You received Toradol here in the emergency department, no ibuprofen for 8 hours. You received Tylenol here in the emergency department, no Tylenol for 6 hours. Mucinex as needed for cough.[facility] Work Phone: Progress note No data available for this section [facility] Reason for referral (narrative)* Diagnostic Procedure Only (Routine) - Pending Review Specialty Diagnoses / Procedures Referred By Richard morales Referred To Contact [facility] Diagnoses Encounter for screening mammogram for breast cancer Procedures DARIA SCREENING SCREENING MAMMOGRAPHY BI 2-VIEW BREAST INC Ivette Vail MD [address] [place] [address] [facility] [address] [place] [address] Referral ID Status Reason Start Date Expiration Date Visits Requested Visits Authorized [id number] Pending Review Auto-Generat ed Referral 11/18/2022 12/18/2023 1 1 [facility] for referral (narrative)* Diagnostic Procedure Only (Routine) - Pending Review Specialty Diagnoses / Procedures Referred By Richard morales Referred To Contact [facility] Diagnoses Encounter for screening mammogram for breast cancer Procedures DARIA SCREENING SCREENING MAMMOGRAPHY BI 2-VIEW BREAST INC Ivette Vail MD [address] [place] [address] [facility] [address] [place] [address] Referral ID Status Reason Start Date Expiration Date Visits Requested Visits Authorized [id number] Pending Review Auto-Generat ed Referral 10/27/2023 11/25/2024 1 1 [facility] for referral (narrative)No reason for referral information [facility] Work Phone: Summary Purpose Family History No Family History Records Found Relationship Condition Age at Onset Recorded Date/T evelin Not Specified Chronic obstructive pulmonary disease Un known Malignant neoplasm Unknown Relationship Condition Age at Onset Recorded Date/T evelin mother Chronic obstructive pulmonary disease Unk nown Hypertension Unknown father Epilepsy Unknown Advance Directives No Advanced Directives Records Found Advance Directive Response Recorded Date/ Time Advance Directives No August 6:02pm Living Will No September 09 023 2:50am Power of Residential Housekeeper No September 09, 2022 2:50am Advance Directive Response Recorded Date/ Time Advance Directives No August 7:02pm Living Will No October 11, 2022 10:04pm Power of Residential Housekeeper No October 11 10:04pm Advance Directive Response Recorded Date/ Time Advance Directives No August 7:02pm Living Will No November 16, 2022 2: 25am Power of Residential Housekeeper No November 16, 2022 2:25am Advance Directive Response Recorded Date/ Time Advance Directives No August 7:02pm Living Will No December 30, 2022 9:24pm Power of Residential Housekeeper No December 30 9:24pm Advance Directive Response Recorded Date/ Time Advance Directives No August 7:02pm Living Will No February 08, 2023 4:16pm Power of Residential Housekeeper No February 08 4:16pm Latest Code Status on File Code Status Date Activated Date Inactivated Comments Full Code 04/29/2023 12:00 PM 05/01/2023 9:38 PM Question Answer Comments Full Code Order Discussed With: Patient Advance Directive Response Recorded Date/ Time Advance Directives No August 6:02pm Living Will No June 04, 2 023 10:57pm Power of Residential Housekeeper No June 04, 2023 10:57pm Advance Directive Response Recorded Date/ Time Advance Directives No August 6:02pm Living Will No June 05 023 12:39am Power of Residential Housekeeper No June 05, 2023 12:39am Date Activated Date Inactivated Comments 04/29/2023 12:00 PM 05/01/2023 9:38 PM Question Answer Comments Full Code Order Discussed With: Patient Date Activated Date Inactivated Comments 04/29/2023 12:00 PM 05/01/2023 9:38 PM Question Answer Comments Full Code Order Discussed With: Patient Advance Directive Response Recorded Date/ Time Do you have a Healthcare Power of Residential Housekeeper? No January 04, 2025 9:30pm Advance Directives No August 7:02pm Chief Complaint and Reason for Visit Chief [...] reflux disease Hypertension, accelerated COPD exacerbation Hypertension Chief Complaint Admit Date sob January 04, 2025 8:54 pm Reason for Referral Specialty Diagnoses / Procedures Referred By Richard morales Referred To Contact Gastroenterology Diagnoses Dysphagia, unspecified type Procedures CONSULT TO GASTROENTEROLOGY OFFICE/OUTPATIENT [facility] 60-74 MINUTES Ivette Welsh MD [address] [place] [address] Referral ID Status Reason Start Date Expiration Date Visits Requested Visits Authorized [id number] Pending Review PCP Requested Referral 02/18/2023 02/18/2024 1 1 Additional Source Comments INFORMATION SOURCE (unrecogn ized section and content) DATE CREATED AUTHOR 01/12/2018 [facility] DATE CREATED AUTHOR AUTHOR'S ORGANIZ ATION 09/08/2021 [facility] DATE CREATED AUTHOR AUTHOR'S ORGANIZ ATION 05/11/2023 [facility] DATE CREATED AUTHOR AUTHOR'S ORGANIZ ATION 07/06/2023 [facility] ([place]) DATE CREATED AUTHOR AUTHOR'S ORGANIZ ATION 07/27/2024 [facility] DATE CREATED AUTHOR AUTHOR'S ORGANIZ ATION 10/28/2024 [facility] DATE CREATED AUTHOR AUTHOR'S ORGANIZ ATION 01/07/2025 [facility] Comments (unrecognize d section and content) In the event this informatio n is protected by the Federal Confidentiality of Alcohol and Drug Abuse Patient Records regulations: The Federal rules restrict any use of the information to criminally investigate or prosecute any alcohol or drug abuse patient.[facility] the event this information is protected by the Federal Confidentiality of Alcohol and Drug Abuse Patient Records regulations: The Federal rules restrict any use of the information to criminally investigate or prosecute any alcohol or drug abuse patient.[facility] the event this information is protected by the Federal Confidentiality of Alcohol and Drug Abuse Patient Records regulations: The Federal rules restrict any use of the information to criminally investigate or prosecute any alcohol or drug abuse patient.[facility] the event this information is protected by the Federal Confidentiality of Alcohol and Drug Abuse Patient Records regulations: The Federal rules restrict any use of the information to criminally investigate or prosecute any alcohol or drug abuse patient.[facility] HospitalIn the event this information is protected by the Federal Confidentiality of Alcohol and Drug Abuse Patient Records regulations: The Federal rules restrict any use of the information to criminally investigate or prosecute any alcohol or drug abuse patient.[facility] the event this information is protected by the Federal Confidentiality of Alcohol and Drug Abuse Patient Records regulations: The Federal rules restrict any use of the information to criminally investigate or prosecute any alcohol or drug abuse patient.[facility] the event this information is protected by the Federal Confidentiality of Alcohol and Drug Abuse Patient Records regulations: The Federal rules restrict any use of the information to criminally investigate or prosecute any alcohol or drug abuse patient.[facility] the event this information is protected by the Federal Confidentiality of Alcohol and Drug Abuse Patient Records regulations: The Federal rules restrict any use of the information to criminally investigate or prosecute any alcohol or drug abuse patient.[facility] HospitalIn the event this information is protected by the Federal Confidentiality of Alcohol and Drug Abuse Patient Records regulations: The Federal rules restrict any use of the information to criminally investigate or prosecute any alcohol or drug abuse patient.[facility] the event this information is protected by the Federal Confidentiality of Alcohol and Drug Abuse Patient Records regulations: The Federal rules restrict any use of the information to criminally investigate or prosecute any alcohol or drug abuse patient.[facility] HospitalIn the event this information is protected by the Federal Confidentiality of Alcohol and Drug Abuse Patient Records regulations: The Federal rules restrict any use of the information to criminally investigate or prosecute any alcohol or drug abuse patient.[facility] the event this information is protected by the Federal Confidentiality of Alcohol and Drug Abuse Patient Records regulations: The Federal rules restrict any use of the information to criminally investigate or prosecute any alcohol or drug abuse patient.[facility] the event this information is protected by the Federal Confidentiality of Alcohol and Drug Abuse Patient Records regulations: The Federal rules restrict any use of the information to criminally investigate or prosecute any alcohol or drug abuse patient.[facility] HospitalIn the event this information is protected by the Federal Confidentiality of Alcohol and Drug Abuse Patient Records regulations: The Federal rules restrict any use of the information to criminally investigate or prosecute any alcohol or drug abuse patient.[facility] the event this information is protected by the Federal Confidentiality of Alcohol and Drug Abuse Patient Records regulations: The Federal rules restrict any use of the information to criminally investigate or prosecute any alcohol or drug abuse patient.[facility] HospitalIn the event this information is protected by the Federal Confidentiality of Alcohol and Drug Abuse Patient Records regulations: The Federal rules restrict any use of the information to criminally investigate or prosecute any alcohol or drug abuse patient.[facility] HospitalIn the event this information is protected by the Federal Confidentiality of Alcohol and Drug Abuse Patient Records regulations: The Federal rules restrict any use of the information to criminally investigate or prosecute any alcohol or drug abuse patient.[facility] HospitalIn the event this information is protected by the Federal Confidentiality of Alcohol and Drug Abuse Patient Records regulations: The Federal rules restrict any use of the information to criminally investigate or prosecute any alcohol or drug abuse patient.[facility] HospitalIn the event this information is protected by the Federal Confidentiality of Alcohol and Drug Abuse Patient Records regulations: The Federal rules restrict any use of the information to criminally investigate or prosecute any alcohol or drug abuse patient.[facility] HospitalIn the event this information is protected by the Federal Confidentiality of Alcohol and Drug Abuse Patient Records regulations: The Federal rules restrict any use of the information to criminally investigate or prosecute any alcohol or drug abuse patient.[facility] HospitalIn the event this information is protected by the Federal Confidentiality of Alcohol and Drug Abuse Patient Records regulations: The Federal rules restrict any use of the information to criminally investigate or prosecute any alcohol or drug abuse patient.[facility] HospitalIn the event this information is protected by the Federal Confidentiality of Alcohol and Drug Abuse Patient Records regulations: The Federal rules restrict any use of the information to criminally investigate or prosecute any alcohol or drug abuse patient.[facility] HospitalIn the event this information is protected by the Federal Confidentiality of Alcohol and Drug Abuse Patient Records regulations: The Federal rules restrict any use of the information to criminally investigate or prosecute any alcohol or drug abuse patient.[facility] HospitalIn the event this information is protected by the Federal Confidentiality of Alcohol and Drug Abuse Patient Records regulations: The Federal rules restrict any use of the information to criminally investigate or prosecute any alcohol or drug abuse patient.[facility] HospitalIn the event this information is protected by the Federal Confidentiality of Alcohol and Drug Abuse Patient Records regulations: The Federal rules restrict any use of the information to criminally investigate or prosecute any alcohol or drug abuse patient.[facility] Reason for Visit (unrecogniz ed section [...] Date Comments Population Health Navigation Outreach 10/29/2023 [employer]Workbench,Reese Reason Onset Date Comments Population Health Navigation Outreach 12/07/2023 [employer],Workbench,Reese Reason Onset Date Comments Population Health Navigation Outreach 01/04/2024 [employer],Workbench,Reese Reason Onset Date Comments Population Health Navigation Outreach 02/25/2024 [employer],Workbench,[place] Reason Onset Date Comments Population Health Navigation Outreach 05/15/2024 [employer],Workbench,Reese Reason Onset Date Comments Population Health Navigation Outreach 07/05/2024 [employer],Workbench,Reese Reason Onset Date Comments Transition Of Care [...] Dr. Nixon Duke MD Emergency Provider Active Health Care Attorney Relationship Specialty Start Date End Date Ivette Welsh MD [address] [place], [place] [id number] PCP - General Family Medicine 11/17/22 Health Care Attorney Relationship Specialty Start Date End Date Ivette Welsh MD [address] [place] [address] PCP - General Family Medicine 11/17/22 Team [...] MD Admit Provider, Attending Provi day Active Health Care Attorney Relationship Specialty Start Date End Date Ivette Welsh MD [address] [place] [address] PCP - General Family Medicine 11/17/22 Health Care Attorney Relationship Specialty Start Date End Date Ivette Welsh MD [address] [place] [address] PCP - General Family Medicine 11/17/22 Radha Victoria, RADHA [address] [place] [address] Primary Care Driver License Examiner 05/03/23 06/02/23 Health Care Attorney Relationship Specialty Start Date End Date Ivette Welsh MD [address] [place], [place] [id number] PCP - General Family Medicine 11/17/22 Radha Victoria, RADHA [address] [place] [address] Primary Care Driver License Examiner 05/03/23 06/02/23 Health Care Attorney Relationship Specialty Start Date End Date Ivette Welsh MD [address] [place], [place] [address] PCP - General Family Medicine 11/17/22 Radha Victoria, RN [address] [place] [address] Primary Care Driver License Examiner 05/03/23 05/31/23 Team Status: Active Member Role [...] Other Provide r Active Dr. Nito Thorne DO Attending Provider, Other Provid er Active Team Status: Inactive Member Role Status Dates Dr. Ivette Welsh MD Primary Care Provider Active Dr. Idalia Sanchez MD Emergency Provider Active Dr. Alexandru Holden MD Admit Provider, Other Provide r Active Dr. Nito Thorne DO Attending Provider Active Health Care Attorney Relationship Specialty Start Date End Date Ivette Welsh MD [address] [place] [address] PCP - General Family Medicine 11/17/22 Health Care Attorney Relationship Specialty Start Date End Date Ivette Welsh MD [address] [place], [place] [id number] PCP - General Family Medicine 11/17/22 Health Care Attorney Relationship Specialty Start Date End Date Ivette Welsh MD [address] [place], [place] [id number] PCP - General Family Medicine 11/17/22 Health Care Attorney Relationship Specialty Start Date End Date Ivette Welsh MD [address] [place] [address] PCP - General Family Medicine 11/17/22 Health Care Attorney Relationship Specialty Start Date End Date Ivette Welsh MD [address] [place] [address] PCP - General Family Medicine 11/17/22 Letha Alston APRN.LAW OFFICE ASSISTANT [address] [place] [address] Occupational Nurse Family Medicine 06/25/24 Manoj Davidson APRN.LAW OFFICE ASSISTANT [address] [place] [address] Occupational Nurse Family Medicine 07/04/24 Health Care Attorney Relationship Specialty Start Date End Date Ivette Welsh MD [address] [place] [address] PCP - General Family Medicine 11/17/22 Letha Alston APRN.LAW OFFICE ASSISTANT [address] [place] [address] Occupational Nurse Family Medicine 06/25/24 Manoj Davidson APRN.LAW OFFICE ASSISTANT [address] [place] [address] Occupational Nurse Family Medicine 07/04/24 Health Care Attorney Relationship Specialty Start Date End Date Ivette Welsh MD [address] [place] [address] PCP - General Family Medicine 11/17/22 Letha Alston APRN.LAW OFFICE ASSISTANT [address] [place] [address] Occupational Nurse Family Medicine 06/25/24 Manoj Davidson APRN.LAW OFFICE ASSISTANT [address] [place] [address] Occupational Nurse Family Medicine 07/04/24 Health Care Attorney Relationship Specialty Start Date End Date Ivette Welsh MD [address] [place] [address] PCP - General Family Medicine 11/17/22 Letha Alston APRN.LAW OFFICE ASSISTANT [address] [place] [address] Occupational Nurse Family Medicine 06/25/24 Manoj Davidson APRN.LAW OFFICE ASSISTANT [address] [place] [address] [facility] 07/04/24 Health Care Attorney Relationship Specialty Start Date End Date Ivette Welsh MD [address] [place] [address] PCP - General Family Medicine 11/17/22 Letha Alston APRN.LAW OFFICE ASSISTANT [address] [place] [address] Occupational Nurse Family Medicine 06/25/24 Manoj Davidson APRN.LAW OFFICE ASSISTANT [address] [place] [address] Occupational Nurse Family Medicine 07/04/24 Health Care Attorney Relationship Specialty Start Date End Date Ivette Welsh MD [address] [place] [address] PCP - General Family Medicine 11/17/22 Letha Alston APRN.LAW OFFICE ASSISTANT [address] [place] [address] Occupational Nurse Family Medicine 06/25/24 Manoj Davidson APRN.LAW OFFICE ASSISTANT [address] [place] [address] [facility] 07/04/24 Health Care Attorney Relationship Specialty Start Date End Date Ivette Welsh MD [address] [place] [address] PCP - General Family Medicine 11/17/22 Letha Alston, AUTOMATIC PATTERN EDGER.LAW OFFICE ASSISTANT [address] [place] [address] Occupational NurseFamily [facility] 06/25/24 Manoj Davidson AUTOMATIC PATTERN EDGER.LAW OFFICE ASSISTANT [address] [place] [address] [facility] 07/04/24 Team Status: Active Member Role Status Dates Dr. Ivette Welsh MD Primary Care Provider Active Team Status: Inactive Member Role Status Dates Dr. Ivette Welsh MD Primary Care Provider Active Start: January 04, 2025 End: January 05, 2025 Dr. Kwadwo Hernandez DO Referring Provider Activ e Start: January 04, 2025 End: January 05, 2025 Dr. Kwadwo Hernandez DO Emergency Provider Activ e Start: January 04, 2025 End: January 05, 2025 Goals (unrecognized section and content) Goals may be documented in a n alternate sectionGoals may be documented in an alternate sectionGoals may be documented in an alternate sectionGoals may be documented in an alternate section No data available for this section No data available for this section No data available for this sectionGoals may be documented in an alternate section FOR RECORDS PERTAINING TO PATIENTS WHO [...] BE BASED ON THE PRIMARY CLINICAL RECORDS. [facility]. provides no warranty or guarantee of the accuracy or completeness of information in this document.
[2025-01-09] MEDS: Albuterol 2.5 MG/3 ML VIAL.NEB. INHALATION ×3 (05:25→22:24)
--- NOTE | 2025-01-09 05:28 | VDLE_ITS ---
Reason For Study Reason For Study: ELEVATED D-DIMER (1.48) RIGHT LEFT GSV is normal. GSV is normal. CFV is compressible, spontaneous, phasic, competent CFV is compressible, spontaneous, phasic, competent, and demonstrates normal augmentation. and demonstrates normal augmentation. FV is compressible, spontaneous, phasic, competent FV is compressible, spontaneous, phasic, competent and demonstrates normal augmentation. and demonstrates normal augmentation. POP V is compressible, spontaneous, phasic, competent POP V is compressible, spontaneous, phasic, competent and demonstrates normal augmentation. and demonstrates normal augmentation. T/P Trunk is compressible. T/P Trunk is compressible. PTV is compressible. PTV is compressible. RT PerV is compressible. LT PerV is compressible. VL/Venous Duplex US - Adan Extrem Interpretation Summary Deep veins of the bilateral lower extremities are patent and compressible segme ntally. There is no evidence of bilateral lower extremity deep vein thrombosis. The bilateral great saphenous veins appea r patent and compressible segmentally. Ordering Physician: Albert Oliver Referring Physician: Steven Welsh Performed By: Serina Mullen, GWENDOLYN, RVT
[2025-01-09] MEDS: 0.9% Saline Lock 10 ML Syringe IV (06:30)
[2025-01-09] MEDS: Vancomycin HCl 2,000 MG in 0.9% Normal Saline (500mL Bag) 500 ML 250 MG IV (06:30)
[2025-01-09] MEDS: MethylPREDNISolone 125 MG/2 ML Vial IV (06:31)
[2025-01-09] MEDS: Piperacil/Tazobactam 3.375 GM in 0.9% Normal Saline (50mL MB+) 50 ML IV ×3 (06:31→22:47)
[2025-01-09] MEDS: 0.9% Normal Saline (1000mL) 1,000 ML 70 ML IV (06:33)
[2025-01-09] MEDS: Sucralfate 1 GM Tablet PO ×2 (06:33→10:31)
--- OUTSIDE RECORDS SUMMARY | 2025-01-09 06:40 | XMS RPT_ITS | CCD ---
Author Organization [facility] [place] [facility] Care Team Providers Care Manager Of Broadcast Content Name Role Phone Shagufta Francisco CNP Unavailable Crista PATRICKNCaren A Unavailable Unavailab BRENT Perez (PAC) Unavailable Unavailabl e Unavailable Primary Care Provider UnavailIvette Steven MD Primary Care Provider [phone] Dr. Ivette Welsh Primary Care Provider Dr. Omega Mejía Emergency Provider Dr. Jama Bustamante Admit Provider Dr. Jama Bustamante Attending Provider [phone] Dr. Jama Bustamante Other Provider AYLEEN VARGHESE, KENISHA James III Primary Care Physician Radha Victoria RN Unavailable Unavailable IVETTE WELSH Primary Care Unavailable ORTIZ STROUD Admitting VANE Gutierrez Attending Unavailable Radha Victoria RN Unavailable Unavailable Dr. Ivette Welsh Primary Care Provider [phone] Dr. Omega Mejía Emergency Provider Dr. Jama Bustamante Admit Provider [phone] Dr. Jama Bustamante Attending Provider Dr. Jama Bustamante Other Provider [phone] Dr. Idalia Sanchez Emergency Provider Dr. Alexandru [...] Unavailable Primary Care Provider Unavailabl e [employer] FOOD AND DRUG INSPECTOR.JIG BORE TOOL MAKER, Letha Unavailable Stuart FOOD AND DRUG INSPECTOR.JIG BORE TOOL MAKER, Manoj Unavailable MICHELLE VARGHESE, KELLIE Roche Attending Unavail able AYLEEN VARGHESE, KENISHA A III Primary Care Unavailabl e IVETTE WELSH Primary Care Unavailable IVETTE WELSH Attending Unavailable IVETTE WELSH Primary Care Unavailable [employer] FOOD AND DRUG INSPECTOR.JIG BORE TOOL MAKER, Letha Unavailable Unavail able Blaise VARGHESE, Dr. Harris Primary Care Provider Dr. Kwadwo Hernandez DO Referring Provider Mary MAE, Dr. Burkett Emergency Provider Albert Hartmann Admitting Unavailable Albert Hartmann Consulting Unavailable Friend, Jorge L Attending Unavailable Elderbrock, Ivette Primary Care Unavailable Robby, Jama Referring Unavailable Robby, Jama Consulting Unavailable Robby, Jama Attending Unavailable Albert Hartmann Attending Unavailable Idalia Hays Attending Unavailabl e Elderbrock, Ivette Primary Care Unavailable Elderbrock, Ivette Referring Unavailable Elderbrock, Ivette Primary Care Unavailable Basilio, [place] Attending Unavailable Elderbrock, Ivette Primary Care Unavailable Bajwa, Tereso Referring Unavailable Bajwa, Tereso Attending Unavailable Kwadwo Hernandez Referring Unavailabl e Klannette-CasperKwadwo fernandez Attending Unavailabl e Elderbrojaelyn, Ivette Primary Care Unavailable de Albert Cazares Consulting Unavailable Elderbrock, Ivette Primary Care Unavailable Robby, Jama Attending Unavailable Albert Hartmann Admitting Unavailable Dr. Nito Avendaño DO Emergency Provider Dr. Albert Hartmann DO Admit Provider Unavail Dr. Albert Gonzalez DO Attending Provider Unav ailable Allergies Allergy Classification Reported Allergen(s) Allergy Type Date of Onset Reaction(s) Facility (12 sources) peanut allergenic extract; Translations: [peanut] drug allergy 6 anaphylaxis Pulmonary Medicine [facility] Work Phone: (20 sources) tree nut, unspecified; Translations: [TREE NUT] drug allergy 6 Anaphylaxis Pulmonary [facility] Work Phone: (3 sources) OTHER; Translations: [OTHER] Propensity to adverse reactions (disorder) 6 AOF [facility] Other [place] [facility] (20 sources) all nuts [Other] Propensity to adverse reactions 6 Anaphylaxis [facility] Work Phone: (20 sources) peanut; Translations: [PEANUTS] Food allergy Anaphylaxis [facility] (20 sources) brazil nut allergenic extract; Translations: [BRAZIL NUT] Drug Allergy 3 [facility] (20 sources) cashew nut allergenic extract; Translations: [CASHEW NUT] Drug Allergy 3 Anaphylaxis [facility] (20 sources) Hazelnut; Translations: [HAZELNUT] Drug Allergy 3 [facility] (20 sources) pecan allergenic extract; Translations: [PECAN NUT] Drug Allergy 3 [facility] (20 sources) Trimble nut; Translations: [PINE NUT] Drug Allergy 3 [facility] (20 sources) pistachio nut allergenic extract; Translations: [PISTACHIO NUT] Drug Allergy 3 [facility] (20 sources) Argan Nut; Translations: [ARGAN NUT] Drug Allergy 3 [facility] (20 sources) Macadamia Nut Oil; Translations: [MACADAMIA NUT OIL] Drug Allergy 3 [facility] Medications Current Medications Medication Drug Class(es) Dates Sig (Normalized) Sig (Original) + Nebulizer Supplies (20 sources) Start: 11-09-2017 + Nebulizer Supplies Indications: Mild intermittent asthma without complication (HCC) Nebulizer, Mask, & O2 Tubing. Use as directed. 1 Each 12 11/09/2017 Active Start: 11-09-2017 + Nebulizer Moses pplies Indications: Mild intermittent asthma without complication Nebulizer, Mask, & O2 Tubing. Use as directed. 1 Each 11/09/2017 Active Comment on above: Nebulizer, Mask, & O 2 Tubing. Use as directed. [id number] 200 actuat albuterol 0.09 mg/actuat metered dose [...] 1-2 puffs q4h as needed ALBUTEROL SULFATE [id number] Juhi Reyes Start: 07-22-2015 End: 10-19-2015 take [...] guaiFENesin 1200 mg extended release oral tablet (2 sources) Uncompetitive T-knwoww-E-aspartate Receptor Antagonist, Sigma-1 Agonist Start: 07-17-20 24 [...] Inhalation, BID Start Date: 02/23/17 Status: Ordered [id number] 0.3 ml EPINEPHrine 1 mg/ml auto-injector (20 [...] 0 .3 MG/0.3ML SOAJ as needed EPINEPHRINE [id number] Juhi Reyes Start: 10-20-2015 EpiPen 2-Ruchi D [...] One tablet by mouth twice daily LEVETIRACETAM [id number] Doreen De Los Santos RN levoFLOXacin 500 mg oral tablet (11 sources) Quinolone Antimicrobial Start: 07-17-2024 take 1 [...] 24 hr nicotine 0.583 mg/hr transdermal system (2 sources) Cholinergic Nicotinic Agonist Start: 07-17-20 apply 1 [...] Pantoprazole (Protonix) 40 mg tablet,delayed release (DR/EC) Active 40 mg PO TWICE A DAY July 17, 2024 1:00am Start: 02-22-2023 End: 12-30-2023 take 1 tablet [...] 3 doses. sucralfate 1000 mg oral tablet (7 sources) Aluminum Complex Start: 07-17-2024 take 1 tablet by mouth three times daily before mealtime Sucralfate (Carafate) 1 gram tablet Active 1 g PO .TID AC 90 July 17, 2024 1:00am 1 hr before meal Completed/Discontinued Medications Medication Drug Class(es) Dates Sig (Normalized) Sig (Original) acetaminophen 325 mg / HYDROcodone bitartrate 5 mg oral tablet (15 sources) Opioid Agonist Start: 04-28-2024 End: 07-15-2024 [...] 1 TABLET PO EVERY 6 HOURS NEEDED 04 20August 11, 2020 August 14, 2020 12:03am Start: 10-24-2015 End: 01-13-2017 NORCO 5-325 MG TABS as direc harpal HYDROCODONE-ACETAMINOPHEN [id number] Luis Fernando Salazar DO Start: 10-24-2015 NORCO 5-325 MG TABS as directed HYDROCODONE-ACETAMINOPHEN [id number] Doreen De Los Santos RN acetaminophen 325 mg / oxyCODONE hydrochloride 5 mg oral tablet (19 sources) Opioid Agonist Start: 10-12-2022 End: 02-08-2023 Oxycodone-Acetaminophen (Endocet) 5-325 mg tablet Discontinued 1 {tbl} PO EVERY 6 HOURS as needed for pain 12 October 12, 2022 February 08, 2023 3:00pm Start: 10-24-2015 take 1 tablet by rob th every four hours as needed PERCOCET 5-325 MG TABS 1 tab po q4h as needed OXYCODONE-ACETAMINOPHEN [id number] Juhi Reyes Start: 03-04-2015 End: 03-09-2015 Oxycodone-Acetaminophen [...] Discontinued 3 mL INHALATION TWICE A DAY June 05, 2023 2:20pm December 30, 2023 [...] One tablet by mouth daily AMITRIPTYLINE HCL [id number] Luis Fernando Salazar DO amLODIPine 5 mg oral tablet (16 sources) Dihydropyridine Calcium Channel Sangeeta Start: 06-05-20 [...] 2016 12:16pm amoxicillin 500 mg oral tablet (9 sources) Penicillin-class Antibacterial Start: 09-09-2022 End: 02-08-2023 take 1 tablet by mouth three times daily Amoxicillin 500 MG tablet Discontinued 500 mg PO THREE TIMES A DAY September 09, 2022 1:00am February 08, 2023 3:00pm atorvastatin 80 mg oral tablet (11 sources) HMG-CoA Reductase Inhibitor Start: 09-10-2016 take 1 tablet by mouth once daily ATORVASTATIN CALCIUM 80 MG TABS One tablet by mouth daily ATORVASTATIN CALCIUM [id number] Doreen De Los Santos RN Start: 10-31-2014 End: 01-07-2015 take 1 tablet by mouth at bedtime Atorvastatin 40 MG tablet Discontinued 40 mg PO AT BEDTIME October 31, 2014 12:00am January 07, 2015 6:53pm azithromycin 250 mg oral tablet (13 sources) Macrolide Antimicrobial Start: 09-10-2016 End: 01-13-2017 take 1 tablet by mouth once daily AZITHROMYCIN 250 MG TABS One tablet by mouth daily AZITHROMYCIN [id number] Doreen De Los Santos RN Start: 09-21-2015 End: 09-23-2015 take 1 tablet by mouth once daily Azithromycin 250 MG tablet Discontinued 250 mg PO DAILY September 21, 2015 1:00am September 23, 2015 2:54pm benzonatate 100 mg oral capsule (13 sources) Non-narcotic Antitussive Start: 10-24-2015 End: 01-13-2017 take 1 tablet by mouth once daily TESSALON PERLES 100 MG CAPS One tablet by mouth daily BENZONATATE [id number] Luis Fernando Salazar DO Start: 09-21-2015 End: [...] INH 2 puffs twice daily BUDESONIDE-FORMOTEROL FUMARATE [id number] Luis Fernando Salazar DO Start: 10-24-2015 take 2 puff(s) by in halation twice daily SYMBICORT 160-4.5 MCG/ACT AERO INH 2 puffs twice daily BUDESONIDE-FORMOTEROL FUMARATE [id number] Juhi Reyes cephalexin 500 mg oral capsule (4 sources) Cephalosporin Antibacterial Start: 04-28-2024 End: 07-15-2024 [...] 2024 11:58pm ciprofloxacin 500 mg oral tablet (5 sources) Quinolone Antimicrobial Start: 02-11-2023 End: 06-05-2023 take 1 tablet by mouth twice daily Ciprofloxacin Hcl (Cipro) 500 mg tablet Discontinued 500 mg PO TWICE A DAY 14 February 11, 2023 12:00am June 05, 2023 2:18pm On Hold: NOT TAKING citalopram 40 mg oral tablet (13 sources) Serotonin Reuptake Inhibitor Start: 10-24-2015 End: 01-13-2017 take 1 tablet by mouth once daily CELEXA 40 MG TABS One tablet by mouth daily CITALOPRAM HYDROBROMIDE [id number] Luis Fernando Salazar DO Start: 02-01-2015 End: 09-25-2015 take 1 tablet by mouth once daily Citalopram 40 MG tablet Discontinued 40 mg PO DAILY February 01, 2015 12:00am September 25, 2015 3:06pm dicyclomine hydrochloride 10 mg oral capsule (9 sources) Anticholinergic Start: 09-09-2022 End: 02-08-2023 take [...] 2:00pm doxycycline monohydrate 100 mg oral capsule (9 sources) Tetracycline-class Drug Start: 08-31-2021 End: 02-08-2023 [...] puffs INH Twice daily MOMETASONE FURO-FORMOTEROL FUM [id number] Luis Fernando Sergei Martin MAE gabapentin 300 mg oral capsule (16 sources) Anti-epileptic Agent Start: 09-29-2021 End: 02-18-2023 [...] tablet by mouth three times daily GABAPENTIN [id number] Doreen De Los Santos RN Comment on above: take [address] [facility] every morning 1 capsule every AFTERNOON, and 2 at bedtime GUAIFENESIN (20 sources) Start: 09-10-2016 take 1 tablet by mouth twice daily MUCINEX 600 MG [id number] One tablet by mouth twice daily GUAIFENESIN [id number] Luis Fernando Salazar DO Start: 10-24-2015 End: 01-13-2017 take 5 mL by mouth every six hours as needed ROBITUSSIN CHEST CONGESTION 100 MG/5ML ORAL SYRP 5 mL q6h as needed GUAIFENESIN [id number] Luis Fernando Salazar DO Start: 10-24-2015 End: 09-10-2016 take 1 tablet by mouth twice daily as needed MUCINEX 600 MG [id number] One tablet by mouth twice daily as needed GUAIFENESIN [id number] Doreen De Los Santos RN Start: 10-24-2015 take 5 mL by mouth e very six hours as needed ROBITUSSIN CHEST CONGESTION 100 MG/5ML ORAL SYRP 5 mL q6h as needed GUAIFENESIN [id number] Juhi Reyes Start: 10-24-2015 take 1 tablet by rob th twice daily as needed MUCINEX 600 MG [id number] One tablet by mouth twice daily as needed GUAIFENESIN [id number] Juhi Reyes Start: 10-20-2015 take 1 dose [...] 2015 4:20pm hydroCHLOROthiazide 12.5 mg oral capsule (3 sources) Thiazide Diuretic Start: 06-05-2023 End: 12-30-2023 take 1 capsule by mouth once daily Hydrochlorothiazide 12.5 mg Capsule Discontinued 12.5 mg PO DAILY June 05, 2023 1:00am December 30, 2023 9:05pm hydrOXYzine hydrochloride 25 mg oral tablet (15 sources) Antihistamine Start: 10-24-2015 End: 01-13-2017 take [...] mouth twice daily as needed HYDROXYZINE HCL [id number] Juhi Reyes lisinopril 40 mg oral tablet [...] mouth three times daily as needed LORAZEPAM [id number] Juhi Reyes losartan potassium 25 mg oral tablet (5 sources) Angiotensin 2 Receptor Sangeeta Start: 10-08-2021 End: 02-18-2023 take 1 tablet by mouth once daily losartan (COZAAR) 25 mg tablet Indications: Essential hypertension, benign Take 1 tablet by mouth once daily. 30 tablet 5 10/08/2021 02/18/2023 Discontinued Comment on above: Take 1 tablet by [facility] once daily. melatonin 3 mg oral tablet (2 sources) Start: 09-10-2016 take 1 tablet by mouth at bedtime MELATONIN 3 MG TABS One tablet by mouth at bedtime. MELATONIN [id number] Doreen De Los Santos RN metoprolol tartrate 25 mg oral tablet (4 sources) beta-Adrenergic Sangeeta Start: 10-24-2015 End: 01-13-2017 take 1 tablet by mouth twice daily METOPROLOL TARTRATE 25 MG TABS One tablet by mouth twice daily METOPROLOL TARTRATE [id number] Luis Fernando Salazar DO omeprazole 40 mg delayed release oral capsule (9 sources) Proton Pump Inhibitor Start: 10-24-2015 take 1 tablet by mouth once daily PRILOSEC 40 MG ORAL CPDR One tablet by mouth daily OMEPRAZOLE [id number] Juhi Reyes Start: 10-20-2015 End: 01-13-2017 PriLOSEC 40 mg oral delayed release capsule (NF) Dose : 40 mg = 1 cap(s), Oral, qDayAC Start Date: 10/20/15 Status: Ordered Repeat number: 1 ondansetron 4 mg disintegrating oral tablet (7 sources) Serotonin-3 Receptor Antagonist Start: 11-16-2022 End: 02-08-2023 take 1 tablet by mouth every six hours as needed for nausea and vomiting Ondansetron 4 mg tablet,disintegrating Discontinued 4 mg PO EVERY 6 HOURS as needed for nausea and vomiting November 16, 2022 12:00am February 08, 2023 3:00pm oxyCODONE hydrochloride 5 mg oral tablet (9 sources) Opioid Agonist Start: 03-23-2019 End: 03-31-2019 [...] One tablet by mouth twice daily RIVAROXABAN [id number] Luis Fernando Salazar DO sertraline 100 mg oral tablet (13 sources) Serotonin Reuptake Inhibitor Start: 10-24-2015 End: 01-13-2017 take 1 tablet by mouth once daily ZOLOFT 100 MG TABS One tablet by mouth daily SERTRALINE HCL [id number] Luis Fernando Salazar DO Start: 09-23-2015 End: [...] 08-03-2012 09-10-2016 Chronic Deficiency and other anemia (9 sources) Iron deficiency anemia; Translations: [Iron deficiency anemia, unspecified] 05-19-2018 Episodic Diseases of white blood cells (20 sources) Leukocytosis; Translations: [Elevated white blood cell count, unspecified] Onset: 10-16-2017 10-16-2017 Chronic Disorders of lipid metabolism (20 sources) Hyperlipidemia; Translations: [Hyperlipidemia, unspecified] Onset: 11-30-2014 09-10-2016 Chronic Disorders of teeth and jaw (9 sources) Dental abscess; Translations: [Periapical abscess without sinus] 09-09-2022 Episodic E Codes: Fall (7 sources) Accidental fall ; Translations: [Unspecified fall, initial encounter] 10-20-2022 Episodic Esophageal disorders (20 sources) Gastro-esophageal reflux disease with esophagitis; Translations: [Reflux esophagitis] Onset: 09-19-2012 09-19-2012 Chronic Esophageal disorders (4 sources) Esophagitis; Translations: [Esophagitis] 06-05-2023 Episodic Essential hypertension (20 sources) Hypertensive disorder; Translations: [Benign essential hypertension] Onset: 05-17-2006 09-10-2016 Chronic Fever of unknown origin (2 sources) Fever; Translations: [Fever, unspecified] 01-05-2025 Episodic Fluid and electrolyte disorders (4 sources) Hypokalemia; Translations: [Hypokalemia] 01-07-2024 Episodic Fracture of lower limb (8 sources) Closed fracture of calcaneus; Translations: [Unspecified fracture of right calcaneus, initial encounter for closed fracture] 10-12-2022 Episodic Malaise and fatigue (2 sources) Asthenia; Translations: [Weakness] 01-09-2025 Episodic Mood disorders (20 sources) Depressive disorder; Translations: [Depression] Onset: 12-31-2011 Resolved: 07-25-2020 01-13-2017 Chronic Neoplasms of unspecified nature or uncertain behavior (20 sources) Thrombocytosis; Translations: [Thrombocythemia] Onset: 12-10-2015 Resolved: 07-25-2020 05-19-2018 Episodic Nonspecific chest pain (7 sources) Chest pain; Translations: [Chest pain, unspecified] 11-16-2022 Episodic Other aftercare (2 sources) Post-discharge follow-up; Translations: [Encounter for follow-up examination after completed treatment for conditions other than malignant neoplasm] 02-18-2023 Episodic Other connective tissue disease (9 sources) Pain in toe; Translations: [Pain in unspecified toe(s)] 11-24-2020 Episodic Other gastrointestinal disorders (9 sources) Swallowing painful; Translations: [Dysphagia, unspecified] 11-24-2020 Episodic Other gastrointestinal disorders (7 sources) History of esophagitis; Translations: [Personal history of other diseases of the digestive system] 11-16-2022 Episodic Other gastrointestinal disorders (8 sources) Dysphagia; Translations: [Dysphagia, unspecified] 12-30-2022 Episodic Other lower respiratory disease (9 sources) Dyspnea; Translations: [Shortness of breath] 05-19-2018 Episodic Other lower respiratory disease (1 source) Hypoxemia; Translations: [Hypoxia] Onset: 04-29-2023 Episodic Other lower respiratory disease (1 source) Cough; Translations: [Acute cough] 11-13-2022 Episodic Other lower respiratory disease (2 sources) Cough; Translations: [Cough] 01-05-2025 Episodic Other lower respiratory disease (2 sources) Hypoxia; Translations: [Hypoxemia] 07-15-2024 Episodic Other lower respiratory disease (1 source) Hypoxemia; Translations: [Hypoxemia] 01-09-2025 Episodic Other lower respiratory disease (2 sources) Respiratory insufficiency; Translations: [Other abnormalities of breathing] 01-09-2025 Episodic Other nervous system disorders (20 sources) Chronic pain; Translations: [Other chronic pain] Onset: 11-07-2015 11-07-2015 Chronic Other nutritional; endocrine; and metabolic disorders (2 sources) Obesity; Translations: [Obesity, unspecified] Onset: 01-13-2017 01-13-2017 Chronic Other nutritional; endocrine; and metabolic disorders (20 sources) Obese class I; Translations: [Obesity, unspecified] Onset: 09-29-2021 09-29-2021 Chronic Other nutritional; endocrine; and metabolic disorders (9 sources) Body mass index 30+ - obesity; Translations: [Body mass index (BMI) of 30.0 to 39.9] 05-19-2018 Chronic Other screening for suspected conditions (not mental disorders or infectious disease) (8 sources) Patient encounter status; Translations: [Encounter for screening mammogram for malignant neoplasm of breast] Onset: 07-17-2024 Episodic Other skin disorders (9 sources) Axillary hidradenitis suppurativa; Translations: [Hidradenitis suppurativa] 02-28-2021 Episodic Other upper respiratory infections (3 sources) Sore throat symptom; Translations: [Acute pharyngitis, unspecified] 07-24-2024 Episodic Phlebitis; thrombophlebitis and thromboembolism (3 sources) Deep venous thrombosis 10-20-2015 Episodic Pneumonia (except that caused by tuberculosis or sexually transmitted disease) (7 sources) Pneumonia, unspecified organism; Translations: [Bacterial pneumonia] Onset: 04-29-2023 07-24-2024 Episodic Pulmonary heart disease (9 sources) Pulmonary hypertension; Translations: [Pulmonary hypertension, unspecified] 05-19-2018 Chronic Pulmonary heart disease (20 sources) Pulmonary embolism; Translations: [Other pulmonary embolism without acute cor pulmonale] Onset: 11-07-2015 Resolved: 03-03-2017 03-22-2019 Episodic Residual codes; unclassified (2 sources) Obstructive sleep apnea syndrome; Translations: [Obstructive sleep apnea (adult) (pediatric)] 01-09-2025 Chronic Residual codes; unclassified (7 sources) History of alcohol abuse; Translations: [Personal history of other specified conditions] 05-19-2018 Episodic Residual codes; unclassified (2 sources) Personal history of other specified conditions; Translations: [History of alcohol use disorder] 10-18-2016 Episodic Residual codes; unclassified (2 sources) Tobacco use and exposure - finding; Translations: [Tobacco use] 01-09-2025 Episodic Screening and history of mental health and substance abuse codes (18 sources) H/O: psychiatric disorder; Translations: [Personal history of other mental and behavioral disorders] 05-19-2018 Episodic Screening or history of mental health and substance abuse (2 sources) Tobacco dependence syndrome; Translations: [Nicotine dependence, unspecified, uncomplicated] Onset: 01-13-2017 01-13-2017 Chronic Septicemia (except in labor) (18 sources) Sepsis due to urinary tract infection; [...] uncomplicated] Onset: 01-29-2015 01-29-2015 Chronic Substance-related disorders (9 sources) Marijuana user; Translations: [Cannabis use, unspecified, uncomplicated] 05-19-2018 Episodic Syncope (3 sources) Near syncope; Translations: [Syncope and collapse] Onset: 07-25-2024 07-25-2024 Episodic Urinary tract infections (20 sources) Acute pyelonephritis; Translations: [Acute pyelonephritis] 03-21-2019 Episodic Past or Other Problems Problem Classification Problem Date Documented Da te Episodic/Chronic Calculus of urinary tract (20 sources) Kidney [...] sources) Prescribed medication regimen behavior finding; Translations: [[facility] (current) use of opiate analgesic] Onset: 02-13-2016 [...] Other endocrine disorders (13 sources) Hypercortisolism; 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, unspecified] Onset: 02-06-2016 Resolved: 10-12-2017 10-12-2017 [...] calories] Onset: 10-30-2015 Resolved: 07-25-2020 07-25-2020 Chronic Respiratory failure; insufficiency; arrest (adult) (18 sources) Acute respiratory failure; Translations: [Acute respiratory failure with hypoxia] Onset: 04-29-2023 Resolved: 07-24-2024 04-29-2023 Episodic Unclassified (1 source) Patient encounter status 09-26-2024 Results Test Name Value Interpretation Reference Range Facility Absolute lymphocyte countOrd ered By: ED PROVIDER on 01-08-2025 Lymphocytes Auto (Unsp spec) [#/Vol] 1.82 10*3/uL 0.83-4.51 [facility] Absolute neutrophil countOrd ered By: ED PROVIDER on 01-08-2025 Neutrophils (Bld) [#/Vol] 16.7 10*3/uL High 2.0-7.7 [facility] Activated partial thrombopla stin time (aPTT) in platelet poor plasma by coagulation aOrdered By: Nito Avendaño on 01-08-2025 aPTT Coag (PPP) [Time] 30.1 s 24.1-36.2 [facility] Anion gap in Serum or Plasma Ordered By: ED PROVIDER on 01-08-2025 Anion gap [Moles/Vol] 13 mmol/L 5-15 [facility] Automated lymphocyte count a s percentage of total leukocytesOrdered By: ED PROVIDER on 01-08-2025 Lymphocytes/100 WBC Auto (Unsp spec) 9.2 % Low 19-41 [facility] BUN/creatinine ratioOrdered By: ED PROVIDER on 01-08-2025 Urea nitrogen/Creatinine [Mass ratio] 18.3 mg/mg 10-20 [facility] Basophil percentageOrdered B y: ED PROVIDER on 01-08-2025 Basophils/100 WBC (Bld) 0.3 % 0-1 [facility] Carbon dioxide, total [Moles /volume] in Central venous bloodOrdered By: ED PROVIDER on 01-08-2025 CO2 [Moles/Vol] 26.4 mmol/L 21.0-32.0 [facility] Chloride assayOrdered By: ED PROVIDER on 01-08-2025 Chloride [Moles/Vol] 95 mmol/L Low 98-108 [facility] Eosinophil percentageOrdered By: ED PROVIDER on 01-08-2025 Eosinophils/100 WBC (Bld) 0.3 % 0-5 [facility] Erythrocyte distribution wid th ratioOrdered By: ED PROVIDER on 01-08-2025 Erythrocyte distribution width (RBC) [Ratio] 14.1 % 11.6-14.6 [facility] Erythrocyte distribution wid th standard deviationOrdered By: ED PROVIDER on 01-08-2025 Erythrocyte distribution width (RBC) [Ratio] 44.6 fl High 35.1-43.9 [facility] Glomerular filtration rate ( GFR) estimation/1.73 sq m using serum, plasma, or whole bOrdered By: ED PROVIDER on 01-08-2025 GFR/1.73 sq M.predicted among non-blacks MDRD (S/P/Bld) [Vol rate/Area] 83 mL/min/{1.73_m2} >60 [facility] Comment on above: mL/min/1.73m2 CKD-EP I Creatinine Equation (2020) Hematocrit Auto (Bld) [Volum e fraction]Ordered By: ED PROVIDER on 01-08-2025 Hematocrit (Bld) [Volume fraction] 39.6 % 37-47 [facility] Hemoglobin measurementOrdere d By: ED PROVIDER on 01-08-2025 Hemoglobin (Bld) [Mass/Vol] 12.9 g/dL 12.0-15.0 [facility] Immature granulocytes/100 WB C Auto (Bld)Ordered By: ED PROVIDER on 01-08-2025 Immature granulocytes/100 WBC (Bld) 0.400 % 0.0-0.9 [facility] Comment on above: IG% - Immature Granu locytes (promyelocytes, myelocytes and metamyelocytes) > 1% indicates that a LEFT SHIFT is Present. International normalized rat io (INR) calculationOrdered By: iNto Avendaño on 01-08-2025 INR Coag (Bld) [Relative time] 0.9 {INR} [facility] Lactic acid measurementOrder ed By: Nito Avendaño on 01-08-2025 Lactate [Moles/Vol] 1.4 mmol/L 0.0-2.0 [facility] MCV (mean corpuscular volume ) determinationOrdered By: ED PROVIDER on 01-08-2025 MCV (RBC) [Entitic vol] 86.3 fL 81-99 [facility] Mean corpuscular hemoglobin (MCH) determinationOrdered By: ED PROVIDER on 01-08-2025 MCH (RBC) [Entitic mass] 28.1 pg 27.0-32.0 [facility] Mean corpuscular hemoglobin concentration (MCHC) determinationOrdered By: ED PROVIDER on 01-08-2025 MCHC (RBC) [Mass/Vol] 32.6 g/dL 32-36 [facility] Mean platelet volume determi nationOrdered By: ED PROVIDER on 01-08-2025 Platelet mean volume (Bld) [Entitic vol] 9.8 fL 6.2-12.0 [facility] Monocyte percentageOrdered B y: ED PROVIDER on 01-08-2025 Monocytes/100 WBC (Bld) 5.9 % 0-10 [facility] Neutrophil percentageOrdered By: ED PROVIDER on 01-08-2025 Neutrophils/100 WBC (Bld) 83.9 % High 47-70 [facility] Nucleated red blood cell per centageOrdered By: ED PROVIDER on 01-08-2025 Nucleated RBC/100 WBC (Bld) [Ratio] 0 % 0-5 [facility] Platelet countOrdered By: ED PROVIDER on 01-08-2025 Platelets (Bld) [#/Vol] 571 10*3/uL High 150-450 [facility] Potassium measurement (mass/ volume)Ordered By: ED PROVIDER on 01-08-2025 Potassium (Unsp spec) [Mass/Vol] 4.1 mmol/L 3.3-5.1 [facility] Comment on above: Hemolysis present, R esults could be affected. Prothrombin timeOrdered By: Nito Avendaño on 01-08-2025 PT Coag (PPP) [Time] 12.7 s 11.7-14.9 [facility] RBC Auto (Bld) [#/Vol]Ordere d By: ED PROVIDER on 01-08-2025 RBC (Bld) [#/Vol] 4.59 10*6/uL 4.2-5.4 [facility] Serum creatinine measurement (mass/volume)Ordered By: ED PROVIDER on 01-08-2025 Creatinine [Mass/Vol] 0.82 mg/dL 0.70-1.20 [facility] Serum glucose measurement (m ass/volume)Ordered By: ED PROVIDER on 01-08-2025 Glucose [Mass/Vol] 109 mg/dL High 70-99 [facility] Serum or plasma calcium scarlett urement (mass/volume)Ordered By: ED PROVIDER on 01-08-2025 Calcium [Mass/Vol] 9.2 mg/dL 7.6-11.0 [facility] Serum or plasma urea nitroge n measurement (mass/volume)Ordered By: ED PROVIDER on 01-08-2025 Urea nitrogen [Mass/Vol] 15 mg/dL 4-19 [facility] Sodium levelOrdered By: ED Raymond FORREST on 01-08-2025 Sodium [Moles/Vol] 134 mmol/L 133-145 [facility] Troponin T.cardiac [Mass/vol ume] in Serum or Plasma by High sensitivity methodOrdered By: Nito Avendaño on 01-08-2025 Troponin T.cardiac High sensitivity method [Mass/Vol] 17 ng/L High <14 [facility] White blood cell (WBC) count Ordered By: ED PROVIDER on 01-08-2025 WBC (Bld) [#/Vol] 19.9 10*3/uL High 4.4-11.0 [facility] Absolute lymphocyte countOrd ered By: Kwadwo Hernandez on 01-04-2025 Lymphocytes Auto (Unsp spec) [#/Vol] 1.86 10*3/uL 0.83-4.51 [facility] Absolute neutrophil countOrd ered By: Kwadwo Hernandez on 01-04-2025 Neutrophils (Bld) [#/Vol] 13.6 10*3/uL High 2.0-7.7 [facility] Anion gap in Serum or Plasma Ordered By: Kwadwo Hernandez on 01-04-2025 Anion gap [Moles/Vol] 12 mmol/L 5-15 [facility] Automated lymphocyte count a s percentage of total leukocytesOrdered By: Kwadwo Hernandez on 01-04-2025 Lymphocytes/100 WBC Auto (Unsp spec) 11.0 % Low - [facility] BUN/creatinine ratioOrdered By: Kwadwo Lang on 01-04-2025 Urea nitrogen/Creatinine [Mass ratio] 11.1 mg/mg 10- [facility] Basophil percentageOrdered B y: Kwadwo Hernandez on 01-04-2025 Basophils/100 WBC (Bld) 0.4 % 0-1 [facility] Bilirubin Test strip Ql (U)O rdered By: Kwadwo Mary on 01-04-2025 Bilirubin Ql (U) Negative Negative [facility] Bilirubin, totalOrdered By: Flint Mary on 01-04-2025 Bilirubin [Mass/Vol] 0.48 mg/dL 0.00-1.30 [facility] CBC W/Diff, Automatedon 12-17 Absolute Lymph 1.86 X10 3/uL Normal 0.83-4.51 [facility] Comment on above: Performed By: #### L 500.4050, L100.0100, L501.2450 #### [facility] [address] [place], [address] Absolute Neut 13.6 X10 3/uL High 2.0-7.7 [facility] Comment on above: Performed By: #### L 500.4050, L100.0100, L501.2450 #### [facility] [address] [place], [address] Basophils/100 WBC (Bld) 0.4 % Normal 0-1 [facility] Comment on above: Performed By: #### L 500.4050, L100.0100, L501.2450 #### [facility] [address] [place], [address] Eosinophils/100 WBC (Bld) 0.2 % Normal 0-5 [facility] Comment on above: Performed By: #### L 500.4050, L100.0100, L501.2450 #### [facility] [address] [place], [address] Erythrocyte distribution width (RBC) [Ratio] 13.8 % Normal 11.6-14.6 [facility] Comment on above: Performed By: #### L 500.4050, L100.0100, L501.2450 #### [facility] [address] [place], [address] Hematocrit (Bld) [Volume fraction] 40.0 % Normal 37-47 [facility] Comment on above: Performed By: #### L 500.4050, L100.0100, L501.2450 #### [facility] [address] [place], [address] Hemoglobin (Bld) [Mass/Vol] 13.0 g/dL Normal 12.0-15.0 [facility] Comment on above: Performed By: #### L 500.4050, L100.0100, L501.2450 #### [facility] [address] [place], [address] IG% 0.500 Normal 0.0-0.9 [facility] Comment on above: Result Comment: IG% - Immature Granulocytes (promyelocytes, myelocytes and metamyelocytes) > 1% indicates that a LEFT SHIFT is Present. Performed By: #### L 500.4050, L100.0100, L501.2450 #### [facility] [address] [place], [address] Lymphocytes/100 WBC (Bld) 11.0 % Low 19-41 [facility] Comment on above: Performed By: #### L 500.4050, L100.0100, L501.2450 #### [facility] [address] [place], [address] MCH (RBC) [Entitic mass] 28.4 pg Normal 27.0-32.0 [facility] Comment on above: Performed By: #### L 500.4050, L100.0100, L501.2450 #### [facility] [address] [place], [address] MCHC (RBC) [Mass/Vol] 32.5 g/dL Normal 32-36 [facility] Comment on above: Performed By: #### L 500.4050, L100.0100, L501.2450 #### [facility] [address] [place], [address] MCV (RBC) [Entitic vol] 87.3 fL Normal 81-99 [facility] Comment on above: Performed By: #### L 500.4050, L100.0100, L501.2450 #### [facility] [address] [place], [address] Monocytes/100 WBC (Bld) 7.5 % Normal 0-10 [facility] Comment on above: Performed By: #### L 500.4050, L100.0100, L501.2450 #### [facility] [address] [place], [address] Neutrophils/100 WBC (Bld) 80.4 % High 47-70 [facility] Comment on above: Performed By: #### L 500.4050, L100.0100, L501.2450 #### [facility] [address] [place], [address] Nucleated RBC (Bld) [#/Vol] 0 10*3/uL Normal 0-5 [facility] Comment on above: Performed By: #### L 500.4050, L100.0100, L501.2450 #### [facility] [address] [place], [address] Platelet mean volume (Bld) [Entitic vol] 9.2 fL Normal 6.2-12.0 [facility] Comment on above: Performed By: #### L 500.4050, L100.0100, L501.2450 #### [facility] [address] [place], [address] Platelets (Bld) [#/Vol] 478 10*3/uL High 150-450 [facility] Comment on above: Performed By: #### L 500.4050, L100.0100, L501.2450 #### [facility] [address] [place], [address] RBC (Bld) [#/Vol] 4.58 10*6/uL Normal 4.2-5.4 [facility] Comment on above: Performed By: #### L 500.4050, L100.0100, L501.2450 #### [facility] [address] [place], [address] RDW SD 44.2 fl High 35.1-43.9 [facility] Comment on above: Performed By: #### L 500.4050, L100.0100, L501.2450 #### [facility] [address] [place], [address] WBC (Bld) [#/Vol] 17.0 10*3/uL High 4.4-11.0 [facility] Comment on above: Performed By: #### L 500.4050, L100.0100, L501.2450 #### [facility] [address] [place], [address] Carbon dioxide, total [Moles /volume] in Central venous bloodOrdered By: Kwadwo Hernandez on 01-04-2025 CO2 [Moles/Vol] 25.0 mmol/L 21.0-32.0 [facility] Chest PA and Lateralon 01-04 Chest PA and Lateral [facility] Imaging Services [address] [place] [place] [address] Chest PA and Lateral MR#: [id number] Acct: [id number] Name: SAVANNAH IRVIN Rep #: [id number] : 1965 F 59 From: Michelle Meng MD PCP: Dr. Ivette Welsh MD Status: REG ER Study: Chest PA and Lateral Date of Exam: 01/04/25 Exam# [id number] Ordering Dr: Kwadwo Hernandez DO PROCEDURE: CHEST PA AND LATERAL 01/04/2025 REASON FOR EXAM: SHORTNESS OF BREATH TECHNIQUE: CHEST PA AND LATERAL COMPARISON: 07/15/2024. FINDINGS: The heart is normal in size. The mediastinum is normal in contour. Hyperaerated lungs which may suggest COPD. The lungs are clear. No acute osseous abnormalities. RAD/Chest PA and Lateral IMPRESSION: NO ACUTE FINDINGS. Reading Location: [place] [address] CC: Dr. Kwadwo Hernandez DO; Dr. 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, [address] Albumin/Globulin [Mass ratio] 1.0 {ratio} Normal 0.9-2.4 [facility] Comment on above: Performed By: #### L 500.4050, L100.0100, L501.2450 #### [facility] [address] [place], [address] ALK PHOS 125 U/L High 35-104 [facility] Comment on above: Performed By: #### L 500.4050, L100.0100, L501.2450 #### [facility] [address] [place], [address] ALT [Catalytic activity/Vol] 15 U/L Normal <=34 [facility] Comment on above: Performed By: #### L 500.4050, L100.0100, L501.2450 #### [facility] [address] [place], [address] AST [Catalytic activity/Vol] 25 U/L Normal <=31 [facility] Comment on above: Performed By: #### L 500.4050, L100.0100, L501.2450 #### [facility] [address] [place], [address] Bilirubin [Mass/Vol] 0.48 mg/dL Normal 0.00-1.30 [facility] Comment on above: Performed By: #### L 500.4050, L100.0100, L501.2450 #### [facility] [address] [place], [address] BUN/CRE 11.1 RATIO Normal 10-20 [facility] Comment on above: Performed By: #### L 500.4050, L100.0100, L501.2450 #### [facility] [address] [place], [address] Calcium [Mass/Vol] 9.1 mg/dL Normal 7.6-11.0 [facility] Comment on above: Performed By: #### L 500.4050, L100.0100, L501.2450 #### [facility] [address] [place], [address] Chloride [Moles/Vol] 99 mmol/L Normal 98-108 [facility] Comment on above: Performed By: #### L 500.4050, L100.0100, L501.2450 #### [facility] [address] [place], [address] CO2 [Moles/Vol] 25.0 mmol/L Normal 21.0-32.0 [facility] Comment on above: Performed By: #### L 500.4050, L100.0100, L501.2450 #### [facility] [address] [place], [address] Creatinine [Mass/Vol] 0.72 mg/dL Normal 0.70-1.20 [facility] Comment on above: Performed By: #### L 500.4050, L100.0100, L501.2450 #### [facility] [address] [place], [address] ECRCL 89.26 ml/min Normal 50-250 [facility] Comment on above: Performed By: #### L 500.4050, L100.0100, L501.2450 #### [facility] [address] [place], [address] GAP 12 Normal 5-15 [facility] Comment on above: Performed By: #### L 500.4050, L100.0100, L501.2450 #### [facility] [address] [place], [address] GFR/1.73 sq M.predicted among non-blacks MDRD (S/P/Bld) [Vol rate/Area] 97 mL/min/{1.73_m2} Normal >60 [facility] Comment on above: Result Comment: mL/m in/1.73m2 CKD-EPI Creatinine Equation (2020) Performed By: #### L 500.4050, L100.0100, L501.2450 #### [facility] [address] [place], [address] Globulin (S) [Mass/Vol] 3.7 g/dL Normal 2.2-4.2 [facility] Comment on above: Performed By: #### L 500.4050, L100.0100, L501.2450 #### [facility] [address] [place], [address] Glucose [Mass/Vol] 102 mg/dL High 70-99 [facility] Comment on above: Performed By: #### L 500.4050, L100.0100, L501.2450 #### [facility] [address] [place], [address] Potassium [Moles/Vol] 3.8 mmol/L Normal 3.3-5.1 [facility] Comment on above: Performed By: #### L 500.4050, L100.0100, L501.2450 #### [facility] [address] [place], [address] Sodium [Moles/Vol] 136 mmol/L Normal 133-145 [facility] Comment on above: Performed By: #### L 500.4050, L100.0100, L501.2450 #### [facility] [address] [place], [address] T PROT 7.6 g/dL Normal 5.9-8.4 [facility] Comment on above: Performed By: #### L 500.4050, L100.0100, L501.2450 #### [facility] [address] [place], [address] Urea nitrogen [Mass/Vol] 8 mg/dL Normal 4-19 [facility] Comment on above: Performed By: #### L 500.4050, L100.0100, L501.2450 #### [facility] [address] [place], [address] Emergency Department Summary on 01-04-2025 Emergency Department Summary [facility] Medical Records Department [address] [place] [address] Emergency Department Summary 01/04/25 MR#: [id number] Acct: [id number] Name: SAVANNAH IRVIN Rep #: [id number] : 1965 59 From: Kwadwo Hernandez DO [...] intact Psych: Cooperative, appropriate mood and affect [facility] Medical History Hypertension Gastroesophageal reflux disease Leukocytosis [...] Respiratory Effort (more content not included)... Normal [facility] Eosinophil percentageOrdered By: Kwadwo Hernandez on 01-04-2025 Eosinophils/100 WBC (Bld) 0.2 % 0-5 [facility] Erythrocyte distribution wid th ratioOrdered By: Kwadwo Hernandez on 01-04-2025 Erythrocyte distribution width (RBC) [Ratio] 13.8 % 11.6-14.6 [facility] Erythrocyte distribution wid th standard deviationOrdered By: Kwadwo Shirley on 01-04-2025 Erythrocyte distribution width (RBC) [Ratio] 44.2 fl High 35.1-43.9 [facility] Glomerular filtration rate ( GFR) estimation/1.73 sq m using serum, plasma, or whole bOrdered By: Kwadwo Hernandez on 01-04-2025 GFR/1.73 sq M.predicted among non-blacks MDRD (S/P/Bld) [Vol rate/Area] 97 mL/min/{1.73_m2} >60 [facility] Comment on above: mL/min/1.73m2 CKD-EP I Creatinine Equation (2020) Hematocrit Auto (Bld) [Volum e fraction]Ordered By: Kwadwo Hernandez on 01-04-2025 Hematocrit (Bld) [Volume fraction] 40.0 % 37-47 [facility] Hemoglobin measurementOrdere d By: Kwadwo Hernandez on 01-04-2025 Hemoglobin (Bld) [Mass/Vol] 13.0 g/dL 12.0-15.0 [facility] Immature granulocytes/100 WB C Auto (Bld)Ordered By: Kwadwo Hernandez on 01-04-2025 Immature granulocytes/100 WBC (Bld) 0.500 % 0.0-0.9 [facility] Comment on above: IG% - Immature Granu locytes (promyelocytes, myelocytes and metamyelocytes) > 1% indicates that a LEFT SHIFT is Present. Influenza virus A and B and SARS-CoV-2 (COVID-19) and Respiratory syncytial virus RNAOrdered By: Kwadwo Lang on 01-04-2025 SARS-CoV-2 (COVID-19) RNA SONG+probe Ql (Unsp spec) [facility] Ketones Test strip Ql (U)Ord ered By: Kwadwo Hernandez on 01-04-2025 Ketones Ql (U) Negative Negative [facility] Laboratory - Chemistry and C hemistry - challengeOrdered By: Kwadwo Hernandez on 01-04-2025 AST [Catalytic activity/Vol] 25 U/L <32 [facility] Lipaseon 01-04-2025 Lipase [Catalytic activity/Vol] 25 U/L Normal 13-75 [facility] Comment on above: Result Comment: Eugenia bean note: LIPASE revised reference range effective 22. New Lipase methodology. Expected to produce lower values than the previous assay method. NEW Reference Range: 13 - 75 U/L Performed By: #### L 500.4050, L100.0100, L501.2450 #### [facility] [address] [place], [address] Lipase measurementOrdered By : [facility] Hospital[facility]iannaCasper on 01-04-2025 Lipase [Catalytic activity/Vol] 25 U/L 13-75 [facility] Comment on above: Please note:LIPASE r evised reference range effective 22. New Lipase methodology. Expected to produce lower values than the previous assay method. NEW Reference Range: 13 - 75 U/L M100.678on 01-04-2025 M100.678 SARS-CoV-2 (COVID 19 ) Negative INFLUENZA A Negative INFLUENZA B Negative RSV PCR Negative Normal [facility] Comment on above: Performed By: #### L 500.4050, L100.0100, L501.2450 #### [facility] [place], [address] MCV (mean corpuscular volume ) determinationOrdered By: Kwadwo Hernandez on 01-04-2025 MCV (RBC) [Entitic vol] 87.3 fL 81-99 [facility] Mean corpuscular hemoglobin (MCH) determinationOrdered By: Kwadwo Hernandez on 01-04-2025 MCH (RBC) [Entitic mass] 28.4 pg 27.0-32.0 [facility] Mean corpuscular hemoglobin concentration (MCHC) determinationOrdered By: Kwadwo Hernandez on 01-04-2025 MCHC (RBC) [Mass/Vol] 32.5 g/dL 32-36 [facility] Mean platelet volume determi nationOrdered By: Kwadwo Hernandez on 01-04-2025 Platelet mean volume (Bld) [Entitic vol] 9.2 fL 6.2-12.0 [facility] Microscopic analysis of urin e for red blood cells (RBC)Ordered By: Kwadwo Hernandez on 01-04-2025 Microscopic analysis of urine for red blood cells (RBC) 0-5 SEEN /hpf 0-5 [facility] Monocyte percentageOrdered B y: Kwadwo Hernandez on 01-04-2025 Monocytes/100 WBC (Bld) 7.5 % 0-10 [facility] Mucus LM Ql (Urine sed)Order ed By: Kwadwo Hernandez on 01-04-2025 Mucus Ql (Urine sed) 0 SEEN /hpf [facility] Neutrophil percentageOrdered By: Kwadwo Hernandez on 01-04-2025 Neutrophils/100 WBC (Bld) 80.4 % High 47-70 [facility] Nitrite Test strip Ql (U)Ord ered By: Kwadwo Hernandez on 01-04-2025 Nitrite Ql (U) Negative Negative [facility] Nucleated red blood cell per centageOrdered By: Kwadwo Hernandez on 01-04-2025 Nucleated RBC/100 WBC (Bld) [Ratio] 0 % 0-5 [facility] Platelet countOrdered By: Ramana Hernandez on 01-04-2025 Platelets (Bld) [#/Vol] 478 10*3/uL High 150-450 [facility] Potassium measurement (mass/ volume)Ordered By: Kwadwo Hernandez on 01-04-2025 Potassium (Unsp spec) [Mass/Vol] 3.8 mmol/L 3.3-5.1 [facility] Protein Test strip Ql (U)Ord ered By: Kwadwo Hernandez on 01-04-2025 Protein Ql (U) 15 mg/dl High Negative [facility] RBC Auto (Bld) [#/Vol]Ordere d By: Kwadwo Hernandez on 01-04-2025 RBC (Bld) [#/Vol] 4.58 10*6/uL 4.2-5.4 [facility] Serum creatinine measurement (mass/volume)Ordered By: Kwadwo Hernandez on 01-04-2025 Creatinine [Mass/Vol] 0.72 mg/dL 0.70-1.20 [facility] Serum globulin measurementOr dered By: Kwadwo Hernandez on 01-04-2025 Globulin (S) [Mass/Vol] 3.7 g/dL 2.2-4.2 [facility] Serum glucose measurement (m ass/volume)Ordered By: Kwadwo Hernandez on 01-04-2025 Glucose [Mass/Vol] 102 mg/dL High 70-99 [facility] Serum or plasma alanine andrews otransferase (ALT) measurementOrdered By: Kwadwo Hernandez on 01-04-2025 ALT [Catalytic activity/Vol] 15 U/L <35 [facility] Serum or plasma albumin scarlett urement (mass/volume)Ordered By: Kwadwo Shirley on 01-04-2025 Albumin [Mass/Vol] 3.9 g/dL 3.5-5.0 [facility] Serum or plasma albumin/glob ulin mass ratioOrdered By: Kwadwo Hernandez on 01-04-2025 Albumin/Globulin [Mass ratio] 1.0 {ratio} 0.9-2.4 [facility] Serum or plasma alkaline tonya sphatase measurementOrdered By: Kwadwo Hernandez on 01-04-2025 ALP [Catalytic activity/Vol] 125 U/L High 35-104 [facility] Serum or plasma calcium scarlett urement (mass/volume)Ordered By: [facility] Hospitalevan[facility]elia Shirley on 01-04-2025 Calcium [Mass/Vol] 9.1 mg/dL 7.6-11.0 [facility] Serum or plasma urea nitroge n measurement (mass/volume)Ordered By: Kwadwo Hernandez on 01-04-2025 Urea nitrogen [Mass/Vol] 8 mg/dL 4-19 [facility] Sodium levelOrdered By: Heath Hernandez on 01-04-2025 Sodium [Moles/Vol] 136 mmol/L 133-145 [facility] Squamous epithelial cells de tection in urine sediment by light microscopyOrdered By: Kwadwo Hernandez on 01-04-2025 Epithelial cells.squamous LM Ql (Urine sed) 0 SEEN /hpf 5-10 [facility] Total proteinOrdered By: Carlos Hernandez on 01-04-2025 Protein [Mass/Vol] 7.6 g/dL 5.9-8.4 [facility] Urinalysis, Completeon 01-04 RBC 0-5 SEEN Normal 0-5 [facility] Comment on above: Order Comment: CLEAN CATCH Performed By: #### L 500.4050, L100.0100, L501.2450 #### [facility] [address] [place], [address] BACTERIA 0 SEEN Normal None Seen [facility] Comment on above: Order Comment: CLEAN CATCH Performed By: #### L 500.4050, L100.0100, L501.2450 #### [facility] [address] [place], [address] EPI,SQUAMOUS 0 SEEN Normal 5-10 [facility] Comment on above: Order Comment: CLEAN CATCH Performed By: #### L 500.4050, L100.0100, L501.2450 #### [facility] [address] [place], [address] Mucus Ql (Urine sed) 0 SEEN Normal [facility] Comment on above: Order Comment: CLEAN CATCH Performed By: #### L 500.4050, L100.0100, L501.2450 #### [facility] [address] [place], [address] WBC 0 SEEN Normal 0-5 [facility] Comment on above: Order Comment: CLEAN CATCH Performed By: #### L 500.4050, L100.0100, L501.2450 #### [facility] [address] [place], [address] Urine clarityOrdered By: Carlos Hernandez on 01-04-2025 Clarity (U) Clear Clear [facility] Urine color determinationOrd ered By: Kwadwo Hernandez on 01-04-2025 Color (U) Yellow Yellow [facility] Urine glucose detectionOrder ed By: Kwadwo Hernandez on 01-04-2025 Glucose Ql (U) Normal mg/dl Normal [facility] Urine leukocyte esterase det ection by dipstickOrdered By: Kwadwo Hernandez on 01-04-2025 Leukocyte esterase Test strip Ql (U) Negative Negative [facility] Urine pHOrdered By: Kwadwo Croft on 01-04-2025 pH (U) 6.0 [pH] 5.0 - 8.0 [facility] Urine sediment bacteria coun t by microscopy (number/high power field)Ordered By: Kwadwo Hernandez on 01-04-2025 Bacteria LM.HPF (Urine sed) [#/Area] 0 /[HPF] None Seen [facility] Urine specific gravity measu rementOrdered By: Kwadwo Hernandez on 01-04-2025 Specific gravity (U) [Rel density] 1.010 1.002-1.030 [facility] Urine urobilinogen measureme ntOrdered By: Kwadwo Hernandez on 01-04-2025 Urobilinogen Ql (U) Normal mg/dl Normal [facility] White blood cell (WBC) count Ordered By: Kwadwo Hernandez on 01-04-2025 WBC (Bld) [#/Vol] 17.0 10*3/uL High 4.4-11.0 [facility] White blood cell countOrdere d By: Kwadwo Hernandez on 01-04-2025 White blood cell count 0 SEEN /hpf 0-5 [facility] CNCOon 10-23-2024 CNCO Letter Text Normal 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 No historical interpreter was used. HPI Savannah Irvin is [...] have confirmed and edited as necessary, the [facility] Review of Systems Constitutional: Negative for [...] understanding of (more content not included)... Normal [facility] COVID AND INFLUENZA A/B AND RSV PCR, ROUTINEon 08-23-2024 SARS-CoV-2 (COVID-19) RNA SONG+probe Ql (Unsp spec) SARS-COV-2 (AGENT OF COVID-19) RNA: Not detected INFLUENZA A RNA: Not detected INFLUENZA B RNA: Not detected RESPIRATORY SYNCYTIAL VIRUS (RSV) RNA: Not detected Normal [facility] Comment on above: Performed By: #### C VFLRS ####[facility] LABCLIA [id number] [address] [place] STREP A MOLECULAR (POC)on Procedural Control Valid [facility] Strep A (POCT) Negative Negative [facility] CNOVon 07-24-2024 CNOV Office Visit (FAMPWS ) IRVINSAVANNAH Jacob ([id number]) 1965 F Date Time Provider Department 07/24/24 2:00 PM [facility] During your visit today, we recorded the [...] HPI 7 Day TCM Pt went to [facility] ER on 07/15/24 for dizziness, tired, weak, [...] to quit smoking now. Below copied from [employer]: Chief Complaint: Dizziness Informant: patient Narrative Narrative: [...] She notes her daughter was sick over [place] and she was around her. She does [...] CK le (more content not included)... Normal [facility] CNPIdalmis 07-21-2024 [facility] Tele[facility] (CIRO) SAVANNAH IRVIN ([id number]) 1965 F Date Time Provider Department 07/21/24 IVETTE WELSH During your visit today, we recorded the following information about you: Rowan Amado, RN 07/21/2024 10:25 AM Signed Patient calls and is upset because the inhalers were not ordered on 07/18 like she asked. Advised patient that it looks like Dr. Welsh had sent in orders to [facility]. Called and spoke with Pharmacist at [facility]. Patient has prescription ready under a Savannah Irvin. Called and advised patient that prescription is ready under that name. Patient voices understanding. 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 Basic Metabolic Profile (BMP )on 07-17-2024 BUN/CRE 11.0 RATIO Normal 10-20 [facility] Comment on above: Performed By: #### L 501.4020, L501.3620, L501.5200 #### [facility] [address] [place], [address] CA,Total 9.2 mg/dL Normal 8.5-10.1 [facility] Comment on above: Performed By: #### L 501.4020, L501.3620, L501.5200 #### [facility] [address] [place], [address] Chloride [Moles/Vol] 105 mmol/L Normal 98-107 [facility] Comment on above: Performed By: #### L 501.4020, L501.3620, L501.5200 #### [facility] [address] [place], [address] CO2 [Moles/Vol] 26.0 mmol/L Normal 21.0-32.0 [facility] Comment on above: Performed By: #### L 501.4020, L501.3620, L501.5200 #### [facility] [address] [place], [address] Creatinine [Mass/Vol] 0.82 mg/dL Normal 0.55-1.02 [facility] Comment on above: Result Comment: The validity of the calculated GFR GFRAA in patients over 70 years has not been determined. Clinical correlation is essential. Performed By: #### L 501.4020, L501.3620, L501.5200 #### [facility] [address] [place], [address] ECRCL 75.44 ml/min Normal [facility] Comment on above: Performed By: #### L 501.4020, L501.3620, L501.5200 #### [facility] [address] [place], [address] EST GFR - AA 93 mL/min Normal >60 [facility] Comment on above: Result Comment: Afri can Danish GFR Calc Performed By: #### L 501.4020, L501.3620, L501.5200 #### [facility] [address] [place], [address] GAP 7 Normal 5-15 [facility] Comment on above: Performed By: #### L 501.4020, L501.3620, L501.5200 #### [facility] [address] [place], [address] GFR/1.73 sq M.predicted among non-blacks MDRD (S/P/Bld) [Vol rate/Area] 77 mL/min/{1.73_m2} Normal >60 [facility] Comment on above: Result Comment: Non- GFR Calc Performed By: #### L 501.4020, L501.3620, L501.5200 #### [facility] [address] [place], [address] Glucose [Mass/Vol] 238 mg/dL High 74-106 [facility] Comment on above: Result Comment: Gluc ose result greater than or equal to 200 mg/dL suggests DIABETES MELLITUS per A.D.A. criteria. Performed By: #### L 501.4020, L501.3620, L501.5200 #### [facility] [address] [place], [address] Potassium [Moles/Vol] 3.6 mmol/L Normal 3.5-5.1 [facility] Comment on above: Performed By: #### L 501.4020, L501.3620, L501.5200 #### [facility] [address] [place], [address] Sodium [Moles/Vol] 138 mmol/L Normal 136-145 [facility] Comment on above: Performed By: #### L 501.4020, L501.3620, L501.5200 #### [facility] [address] [place], [address] Urea nitrogen [Mass/Vol] 9 mg/dL Normal 7-18 [facility] Comment on above: Performed By: #### L 501.4020, L501.3620, L501.5200 #### [facility] [address] [place], [address] CBC W/Diff, Automatedon 12-3 PATH REV Reviewed Normal [facility] Comment on above: Result Comment: Leuk ocytosis. Clinical correlation necessary. Dakota Lyle M.D. 07/17/24 AMENDED REPORT 07/17/24 1531 PATH REV previously reported as: Vaishali brumfield Performed By: #### L 501.2450, L100.0100, L500.4050 #### [facility] [address] [place], [address] Absolute Lymph 0.50 X10 3/uL Low 0.83-4.51 [facility] Comment on above: Performed By: #### L 100.0100 #### [facility] [address] [place], [address] Absolute Neut 8.6 X10 3/uL High 2.0-7.7 [facility] Comment on above: Performed By: #### L 100.0100 #### [facility] [address] [place], [address] Basophils/100 WBC (Bld) 0.1 % Normal 0-1 [facility] Comment on above: Performed By: #### L 100.0100 #### [facility] [address] [place], [address] Eosinophils/100 WBC (Bld) 0.0 % Normal 0-5 [facility] Comment on above: Performed By: #### L 100.0100 #### [facility] [address] [place], [address] Erythrocyte distribution width (RBC) [Ratio] 13.6 % Normal 11.6-14.6 [facility] Comment on above: Performed By: #### L 100.0100 #### [facility] [address] [place], [address] Hematocrit (Bld) [Volume fraction] 41.1 % Normal 37-47 [facility] Comment on above: Performed By: #### L 100.0100 #### [facility] [address] [place], [address] Hemoglobin (Bld) [Mass/Vol] 13.4 g/dL Normal 12.0-15.0 [facility] Comment on above: Performed By: #### L 100.0100 #### [facility] [address] [place], [address] IG% 0.400 Normal 0.0-0.9 [facility] Comment on above: Result Comment: IG% - Immature Granulocytes (promyelocytes, myelocytes and metamyelocytes) > 1% indicates that a LEFT SHIFT is Present. Performed By: #### L 100.0100 #### [facility] [address] [place], [address] Lymphocytes/100 WBC (Bld) 5.3 % Low 19-41 [facility] Comment on above: Performed By: #### L 100.0100 #### [facility] [address] [place], [address] MCH (RBC) [Entitic mass] 28.9 pg Normal 27.0-32.0 [facility] Comment on above: Performed By: #### L 100.0100 #### [facility] [address] [place], [address] MCHC (RBC) [Mass/Vol] 32.6 g/dL Normal 32-36 [facility] Comment on above: Performed By: #### L 100.0100 #### [facility] [address] [place], [address] MCV (RBC) [Entitic vol] 88.8 fL Normal 81-99 [facility] Comment on above: Performed By: #### L 100.0100 #### [facility] [address] [place], [address] Monocytes/100 WBC (Bld) 3.3 % Normal 0-10 [facility] Comment on above: Performed By: #### L 100.0100 #### [facility] [address] [place], [address] Neutrophils/100 WBC (Bld) 90.9 % High 47-70 [facility] Comment on above: Performed By: #### L 100.0100 #### [facility] [address] [place], [address] Nucleated RBC (Bld) [#/Vol] 0 10*3/uL Normal 0-5 [facility] Comment on above: Performed By: #### L 100.0100 #### [facility] [address] [place], [address] Platelet mean volume (Bld) [Entitic vol] 9.5 fL Normal 6.2-12.0 [facility] Comment on above: Performed By: #### L 100.0100 #### [facility] [address] [place], [address] Platelets (Bld) [#/Vol] 429 10*3/uL Normal 150-450 [facility] Comment on above: Performed By: #### L 100.0100 #### [facility] [address] [place], [address] RBC (Bld) [#/Vol] 4.63 10*6/uL Normal 4.2-5.4 [facility] Comment on above: Performed By: #### L 100.0100 #### [facility] [address] [place], [address] RDW SD 44.2 fl High 35.1-43.9 [facility] Comment on above: Performed By: #### L 100.0100 #### [facility] [address] [place], [address] WBC (Bld) [#/Vol] 9.4 10*3/uL Normal 4.4-11.0 [facility] Comment on above: Performed By: #### L 100.0100 #### [facility] [address] [place], [address] Discharge Instructionon 06-20 Discharge Instruction [facility] Medical Records Department [address] [place] [address] Instructions for Home/Discharge Instructions 07/17/24 1210 MR#: [id number] Acct: [id number] Name: SAVANNAH IRVIN Rep #: [id number] : 1965 59 From: Jama Bustamante MD [...] Instructions Additional Instructions / Restrictions: Follow-up with [facility] or outside pulmonary office 2 weeks Patient [...] DO; Dr. Ivette Welsh MD Signed Normal [facility] EGD Reporton 07-17-2024 EGD Report [facility] Medical Records Department [address] [place] [address] EGD Report MR#: [id number] Acct: [id number] Name: SAVANNAH IRVIN Rep #: [id number] : 1965 59 From: Jorge L Asencio [...] argon beam at 0.4 liters/minute and 20 hernnadez was successful. Estimated blood loss was minimal. [...] stricture open Procedure Code(s): --- Professional --- 81030, Esophagogastroduodenos copy, flexible, transoral; with ablation of tumor(s), polyp(s), or other lesion(s) (includes pre- and post-dilation and guide wire passage, when performed) 65786, 59,51, Esophagogastroduodenos copy, flexible, transoral; with biopsy, single or (more content not included)... Normal [facility] MR/PN.GIon 07-17-2024 MR/PN.GI [facility] Medical Records Department [address] [place] [address] Progress Note - GI 07/17/24 1200 MR#: [id number] Acct: [id number] Name: SAVANNAH IRVIN SRIDHAR Rep #: [id number] : 1965 59 From: Jorge L Asencio DO PCP: Dr. Ivette Welsh MD Status:ADM IN Location: [place] [address] Subjective Subjective The patient still having esophageal [...] 90.9 H, Lymph % (Auto) 5.3 L, [place] % (Auto) 3.3, Eos % (Auto) 0.0, [...] 3. Charges/Coding Visit Charges Inpatient E M: 12444 Subs Hosp L3 07/17/24 1201 Cosigner Signature (if applicable): CC: Signed Normal [facility] MR/[facility]OP[facility] 07-17-2024 MR/POSTOP[facility] Medical Records Department [address] [place] [address] Anesthesia Postop Eval I 07/17/24 1242 MR#: [id number] Acct: [id number] Name: SAVANNAH IRVIN Rep #: [id number] : 1965 59 From: Osvaldo Ann PCP: Dr. Ivette Welsh MD Status:ADM IN Y Race: C Location: [place] [address] Anesthesia: Postop Eval I Current Vital Signs [...] Osvaldo Pollock Signature: Date CC: Signed Normal [facility] MR/JBKPFLHO5ib 07-17-2024 MR/POSTOPAN2 [facility] Medical Records Department [address] [place] [address] Anesthesia Postop Eval II 07/17/24 140 MR#: [id number] Acct: [id number] Name: SAVANNAH IRVIN SRIDHAR Rep #: [id number] : 1965 59 From: Oscar Mcpherson MD PCP: Dr. Ivette Wlesh MD Status:ADM IN Y Race: C Location: [place] [address] Anesthesia Postop Eval I Sum Postop Eval [...] No Vomiting: No Complications Anesthesia Complication: No 07/17/241406 Date Oscar Pollock Signature: Date CC: Signed Normal [facility] Magnesiumon 07-17-2024 Magnesium [Mass/Vol] 2.0 mg/dL Normal 1.6-2.6 [facility] Comment on above: Performed By: #### L 501.4020, L501.3620, L501.5200 #### [facility] [address] [place], [place], [address] P53 (initial)on 07-17-2024 P53 (initial) -- ---- Patient Age/Sex Location Account Attending Physician ---- SAVANNAH IRVIN 59/F U [id number] Dr. Jama Bustamante MD ---- Specimen: [id number] Received: 07/20/24-1023 Status: JOHN Rossi Num: [id number] Spec Type: IMMUNO Subm Dr: Jorge L Asencio DO PHYSICIAN INSTITUTION [place] [address] SPECIMEN INFORMATION: Tissue Source: Distal esophagus biopsy Clinical Info: Dysphagia Specimen Number: [id number] CPT code: 33907 METHODOLOGY: Deparaffinized sections of prefer/formalin-fixed tissue or [...] developed and their performance characteristics determined by [facility]. They may not have been cleared or approved by the U.S. Food and Drug Administration. The FDA has determined that such clearance or approval is not necessary. The above immunohistochemical/du alISH markers are ordered and reviewed by the Pathologist. INTERPRETATION: Distal esophagus, biopsy: Negative for dysplasia. 07/21/2024 Signed (signature on file) Dr. Dakota Lyle MD 07/21/24 1135 ---- Normal [facility] Comment on above: Performed By: #### L 500.4050, L100.0100, L501.2450 #### [facility] [address] [place] [address], [address] Phosphoruson 07-17-2024 Phosphate [Mass/Vol] 2.3 mg/dL Low 2.5-4.9 [facility] Comment on above: Performed By: #### L 501.4020, L501.3620, L501.5200 #### [facility] [address] [place], [place], [address] ,Urineon 07-17-2024 Beta HCG ( test) Ql (U) Negative Normal [facility] Comment on above: Order Comment: Melissa garcia has had a period within 12 mo Result Comment: Very dilute urine specimens, as indicated by a low specific gravity, may not contain service liaison representative levels of hCG. If is still suspected, a first morning urine specimen should be collected 48 hours later and tested. Performed By: #### L 400.7600 #### [facility] [address] [facility] [address] [place], [place], [address] Special Stain Group Ion 12-3 Special Stain Group I ---- ---- Patient Age/Sex Location Account Attending Physician ---- SAVANNAH IRVIN 59/F [facility] [id number] Dr. Jama Bustamante MD ---- Specimen: [id number] Received: 07/17/24 Status: JOHN Rossi Num: [id number] Spec Type: EGD BIOPSY Subm Dr: DO [...] totally submitted in one cassette. 07/18/2024 TC:2 [facility]:[id number] ---- Patient Age/Sex Location Account Attending Physician ---- SAVANNAH IRVIN 59/F [facility] [id number] Dr. Jama Bustamante MD ---- Signed (signature on file) Dr. Dakota Lyle MD 07/21/24 0847 ---- Normal [facility] Comment on above: Performed By: #### L 501.4020, L501.3620, L501.5200 #### [facility] [address] [place], [place], [address] BNP,B-Type NATRIURETIC PEPTI Letty 07-16-2024 Natriuretic peptide B (Bld) [Mass/Vol] 120.6 pg/mL High 0-100 [facility] Comment on above: Performed By: #### L 503.6620 #### [facility] [address] [place], [place], [address] CBC W/Diff, Automatedon 12- Absolute Lymph 0.63 X10 3/uL Low 0.83-4.51 [facility] Comment on above: Performed By: #### L 501.4020, L501.3620, L501.5200 #### [facility] [address] [place], [address] Absolute Neut 6.9 X10 3/uL Normal 2.0-7.7 [facility] Comment on above: Performed By: #### L 501.4020, L501.3620, L501.5200 #### [facility] [address] [place], [address] Basophils/100 WBC (Bld) 0.1 % Normal 0-1 [facility] Comment on above: Performed By: #### L 501.4020, L501.3620, L501.5200 #### [facility] [address] [place], [address] Eosinophils/100 WBC (Bld) 0.0 % Normal 0-5 [facility] Comment on above: Performed By: #### L 501.4020, L501.3620, L501.5200 #### [facility] [address] [place], [address] Erythrocyte distribution width (RBC) [Ratio] 13.8 % Normal 11.6-14.6 [facility] Comment on above: Performed By: #### L 501.4020, L501.3620, L501.5200 #### [facility] [address] [place], [address] Hematocrit (Bld) [Volume fraction] 44.5 % Normal 37-47 [facility] Comment on above: Performed By: #### L 501.4020, L501.3620, L501.5200 #### [facility] [address] [place], [address] Hemoglobin (Bld) [Mass/Vol] 13.9 g/dL Normal 12.0-15.0 [facility] Comment on above: Performed By: #### L 501.4020, L501.3620, L501.5200 #### [facility] [address] [place], [address] IG% 0.400 Normal 0.0-0.9 [facility] Comment on above: Result Comment: IG% - Immature Granulocytes (promyelocytes, myelocytes and metamyelocytes) > 1% indicates that a LEFT SHIFT is Present. Performed By: #### L 501.4020, L501.3620, L501.5200 #### [facility] [address] [place], [address] Lymphocytes/100 WBC (Bld) 8.2 % Low 19-41 [facility] Comment on above: Performed By: #### L 501.4020, L501.3620, L501.5200 #### [facility] [address] [place], [address] MCH (RBC) [Entitic mass] 28.0 pg Normal 27.0-32.0 [facility] Comment on above: Performed By: #### L 501.4020, L501.3620, L501.5200 #### [facility] [address] [place], [address] MCHC (RBC) [Mass/Vol] 31.2 g/dL Low 32-36 [facility] Comment on above: Performed By: #### L 501.4020, L501.3620, L501.5200 #### [facility] [address] [place], [address] MCV (RBC) [Entitic vol] 89.5 fL Normal 81-99 [facility] Comment on above: Performed By: #### L 501.4020, L501.3620, L501.5200 #### [facility] [address] [place], [address] Monocytes/100 WBC (Bld) 1.3 % Normal 0-10 [facility] Comment on above: Performed By: #### L 501.4020, L501.3620, L501.5200 #### [facility] [address] [place], [address] Neutrophils/100 WBC (Bld) 90.0 % High 47-70 [facility] Comment on above: Performed By: #### L 501.4020, L501.3620, L501.5200 #### [facility] [address] [place], [address] Nucleated RBC (Bld) [#/Vol] 0 10*3/uL Normal 0-5 [facility] Comment on above: Performed By: #### L 501.4020, L501.3620, L501.5200 #### [facility] Laboratory [address] [place], [address] Platelet mean volume (Bld) [Entitic vol] 9.5 fL Normal 6.2-12.0 [facility] Comment on above: Performed By: #### L 501.4020, L501.3620, L501.5200 #### [facility] [address] [place], [address] Platelets (Bld) [#/Vol] 394 10*3/uL Normal 150-450 [facility] Comment on above: Performed By: #### L 501.4020, L501.3620, L501.5200 #### [facility] [address] [place], [address] RBC (Bld) [#/Vol] 4.97 10*6/uL Normal 4.2-5.4 [facility] Comment on above: Performed By: #### L 501.4020, L501.3620, L501.5200 #### [facility] [address] [place], [address] RDW SD 45.5 fl High 35.1-43.9 [facility] Comment on above: Performed By: #### L 501.4020, L501.3620, L501.5200 #### [facility] [address] [place], [address] WBC (Bld) [#/Vol] 7.6 10*3/uL Normal 4.4-11.0 [facility] Comment on above: Performed By: #### L 501.4020, L501.3620, L501.5200 #### [facility] [address] [place], [address] Comprehensive Metabolic Prof mnon 07-16-2024 Albumin [Mass/Vol] 2.8 g/dL Low 3.2-5.0 [facility] Comment on above: Performed By: #### L 501.4020, L501.3620, L501.5200 #### [facility] [address] [place], [address] Albumin/Globulin [Mass ratio] 0.6 {ratio} Low 0.9-2.4 [facility] Comment on above: Performed By: #### L 501.4020, L501.3620, L501.5200 #### [facility] [address] [place], [address] ALK P 103 U/L Normal 45-117 [facility] Comment on above: Performed By: #### L 501.4020, L501.3620, L501.5200 #### [facility] [address] [place], [address] ALT [Catalytic activity/Vol] 15 U/L Normal 13-56 [facility] Comment on above: Performed By: #### L 501.4020, L501.3620, L501.5200 #### [facility] [address] [place], [address] AST [Catalytic activity/Vol] 14 U/L Low 15-37 [facility] Comment on above: Performed By: #### L 501.4020, L501.3620, L501.5200 #### [facility] [address] [place], [address] Bilirubin [Mass/Vol] 0.30 mg/dL Normal 0.20-1.00 [facility] Comment on above: Result Comment: For patients on eltrombopag therapy, use of Dimension [place] TBIL is not recommended. Performed By: #### L 501.4020, L501.3620, L501.5200 #### [facility] [address] [place], [address] BUN/CRE 13.0 RATIO Normal 10-20 [facility] Comment on above: Performed By: #### L 501.4020, L501.3620, L501.5200 #### [facility] [address] [place], [address] CA,Total 8.5 mg/dL Normal 8.5-10.1 [facility] Comment on above: Performed By: #### L 501.4020, L501.3620, L501.5200 #### [facility] [address] [place], [address] Chloride [Moles/Vol] 104 mmol/L Normal 98-107 [facility] Comment on above: Performed By: #### L 501.4020, L501.3620, L501.5200 #### [facility] [address] [place], [address] CO2 [Moles/Vol] 27.0 mmol/L Normal 21.0-32.0 [facility] Comment on above: Performed By: #### L 501.4020, L501.3620, L501.5200 #### [facility] [address] [place], [address] Creatinine [Mass/Vol] 0.77 mg/dL Normal 0.55-1.02 [facility] Comment on above: Result Comment: The validity of the calculated GFR GFRAA in patients over 70 years has not been determined. Clinical correlation is essential. Performed By: #### L 501.4020, L501.3620, L501.5200 #### [facility] [address] [place], [address] ECRCL 78.32 ml/min Normal [facility] Comment on above: Performed By: #### L 501.4020, L501.3620, L501.5200 #### [facility] [address] [place], [address] EST GFR - AA 99 mL/min Normal >60 [facility] Comment on above: Result Comment: Afri can Danish GFR Calc Performed By: #### L 501.4020, L501.3620, L501.5200 #### [facility] [address] [place], [address] GAP 6 Normal 5-15 [facility] Comment on above: Performed By: #### L 501.4020, L501.3620, L501.5200 #### [facility] [address] [place], [address] GFR/1.73 sq M.predicted among non-blacks MDRD (S/P/Bld) [Vol rate/Area] 82 mL/min/{1.73_m2} Normal >60 [facility] Comment on above: Result Comment: Non- GFR Calc Performed By: #### L 501.4020, L501.3620, L501.5200 #### [facility] [address] [place], [address] Globulin (S) [Mass/Vol] 4.4 g/dL High 2.2-4.2 [facility] Comment on above: Performed By: #### L 501.4020, L501.3620, L501.5200 #### [facility] [address] [place], [address] Glucose [Mass/Vol] 171 mg/dL High 74-106 [facility] Comment on above: Result Comment: Fast ing Glucose result greater than or equal to 126 mg/dL suggests DIABETES MELLITUS per A.D.A. criteria. Performed By: #### L 501.4020, L501.3620, L501.5200 #### [facility] [address] [place], [address] Potassium [Moles/Vol] 4.2 mmol/L Normal 3.5-5.1 [facility] Comment on above: Performed By: #### L 501.4020, L501.3620, L501.5200 #### [facility] [address] [place], [address] Sodium [Moles/Vol] 137 mmol/L Normal 136-145 [facility] Comment on above: Performed By: #### L 501.4020, L501.3620, L501.5200 #### [facility] [address] [place], [address] T PROT 7.2 g/dL Normal 6.4-8.2 [facility] Comment on above: Performed By: #### L 501.4020, L501.3620, L501.5200 #### [facility] [address] [place], [address] Urea nitrogen [Mass/Vol] 10 mg/dL Normal 7-18 [facility] Comment on above: Performed By: #### L 501.4020, L501.3620, L501.5200 #### [facility] [address] [place], [address] Echo Completeon 07-16-2024 Echo Complete [facility] Cardiovascular Services [address] [place] [address] Echo Complete 07/17/24 1444 MR#: [id number] Acct: [id number] Name: SAVANNAH IRVIN Rep #: [id number] : 1965 59 From: Carl Richmond MD Attending Dr: Dr. Jama Bustamante MD Status: ADM IN Ordering Dr: Albert Hartmann DO Date: 07/16/24 Location: [facility] Sex: F C Admitted: 07/15/24 Reason [...] Ordering Physician: Albert Hartmann Referring Physician: MD Blaise Ivette Performed By: Lisa Price RCS 07/17/24 1641 Date Carl Richmond MD CC: Dr. Albert Hartmann DO; Dr. Ivette Welsh MD; Dr. Jama Bustamante MD Date Dictated: 07/17/24 1444 Date Transcribed: 07/17/241640 Plumbing Technician: Signed Normal [facility] Legionella Antigen Urineon 1 09-16-2023 LEGU URINE, CLEAN CATCH Legionella Antigen result interpretation: L pneumo Ag Ur Ql Negative Presumptive negative for Legionella pneumophila serogroup 1 antigen in urine, suggesting no recent or current infection. Legionella Ag, Urine Negative (See interpretation below) [facility] Comment on above: Performed By: #### L 500.4050, L100.0100, L501.2450 #### [facility] [address] [place], [address] MR/CON.PCM.GIon 07-16-2024 MR/CON.PCM.[facility] Medical Records Department [address] [place] [address] Consultation - 07/16/24 1152 MR#: [id number] Acct: [id number] Name: SAVANNAH IRVIN SRIDHAR Rep #: [id number] : 1965 59 From: Jorge L Asencio DO PCP: Dr. Ivette Welsh MD Status:ADM IN [id number] ADDENDUM by Jorge L Asencio DO on 07/17/24 at 1156 Visit Charges Inpatient E M: 59682 Init Hosp L3 07/17/24 1156 Cosigner Signature (if applicable): cc: Dr. Ivette Welsh MD * Signed HPI Consult Data Date of Consult: 07/16/24 HPI Narrative Reason for Consultation: Dysphagia HPI Narrative: SAVANNAH IRVIN is a 59-year-old woman with history of [...] having severe dysphagia feeling food getting stuck chcf down her esophagus and forcing herself to vomit. She says that this has been going on for quite some time. She has most problems with solids and not liquids. [facility] Medical History Hypertension Gastroesophageal reflux disease [...] 0.3 mg (0.3 mL) IM X1 ##1 07/06/19 Unknown Rx injection, auto-injector Allergy/AdvReac Type Severity [...] denies polyu (more content not included)... Normal [facility] Magnesiumon 07-16-2024 Magnesium [Mass/Vol] 2.2 mg/dL Normal 1.6-2.6 [facility] Comment on above: Performed By: #### L 501.4020, L501.3620, L501.5200 #### [facility] Laboratory [address] [place], [address] Phosphoruson 07-16-2024 Phosphate [Mass/Vol] 2.5 mg/dL Normal 2.5-4.9 [facility] Comment on above: Performed By: #### L 501.4020, L501.3620, L501.5200 #### [facility] [address] [place], [address] Strep pneumoniae Antig(UR,CS F)on 07-16-2024 STPAG Negative Urine Presumptive negative for pneumococcal pneumonia, suggesting no current or recent pneumococcal infection. Infection due to S pneumoniae cannot be ruled out since the antigen present in the sample may be below the detection limit of the test. Strep pneumo Test Negative URINE (See interpretation below) Normal [facility] Comment on above: Performed By: #### L 501.4020, L501.3620, L501.5200 #### [facility] [address] [place], [address] Thyroid Stim Hormone (TSH)on 07-16-2024 TSH 0.444 uIU/mL Normal 0.358-3.740 [facility] Comment on above: Performed By: #### L 501.4020, L501.3620, L501.5200 #### [facility] Laboratory [address] [place], [address] 12 Lead EKGon 07-15-2024 12 Lead EKG [facility] Cardiovascular Services [address] [place] [address] 12 Lead EKG 07/15/24 1607 MR#: [id number] Acct: [id number] Name: SAVANNAH IRVIN SRIDHAR Rep #: [id number] : 1965 59 From: Carl Richmond MD Attending Dr: Dr. Jama Bustamante MD Status: ADM IN Ordering Dr: Queenie Herrera DO Date: 07/15/24 Location: [facility] Sex: F C Admitted: 07/15/24 Test [...] ECG Confirmed by CARL RICHMOND MD ([id number]), video effects editor JACEY MARK ([id number]) on 07/17/2024 8:40:49 AM Referred By: Confirmed By: CARL RICHMOND MD 07/17/24 0840 Date Carl Richmond MD CC: Dr. Queenie Herrera DO; Dr. Ivette Welsh MD; Dr. Jama Bustamante MD Signed Normal [facility] Abdomen/Pelvis W IV Cont ONL Yon 07-15-2024 Abdomen/Pelvis W IV Cont ONLY [facility] Imaging Services [address] [place] [address] Abdomen/Pelvis W IV Cont ONLY MR#: [id number] Acct: [id number] Name: SAVANNAH IRVIN Rep #: [id number] : 1965 F 59 From: Javon cheung MD PCP: Dr. Ivette Welsh MD Status: REG ER Study: Abdomen/Pelvis W IV Cont ONLY Date of Exam: Exam# [id number] Ordering Dr: Queenie Herrera DO [id number] STUDY: CT ABDOMEN AND PELVIS WITH CONTRAST [...] 21:03 EST Reading Location ID and State: [facility] / [place] , Service support , CC: Dr. Queenie Herrera DO; Dr. Ivette Welsh MD Plumbing Technician: Signed Normal [facility] CPK Total, Creatine Kinaseon 07-15-2024 CPK TOTAL 44 U/L Normal 26-192 [facility] Comment on above: Order Comment: 'TROP ' Serial specimen #1, #2 or #3: 1 Performed By: #### L 501.4020, L501.3620, L501.5200 #### [facility] Laboratory [address] [facility] [place], [place], [id number] CTA Chest W/WO Contraston CTA Chest W/WO Contrast [facility] Imaging Services [address] [place], [place] [address] CTA Chest W/WO Contrast MR#: [id number] Acct: [id number] Name: SAVANNAH IRVIN SRIDHAR Rep #: [id number] : 1965 F 59 From: Javon cheung MD PCP: Dr. Ivette Welsh MD Status: REG ER Study: CTA Chest W/WO Contrast Date of Exam: 07/15/24 Exam# [id number] Ordering Dr: Queenie Herrera DO [id number] STUDY: CTA CHEST REASON FOR EXAM: Female, [...] or spiculated lesions on the current study. Ronda-shaped groundglass edema with crowding of the bronchovascular [...] unremarkable. CT/CTA Chest W/WO Contrast IMPRESSION: 1. Ronda-shaped groundglass edema with crowding of the bronchovascular [...] Queenie Herrera DO; Dr. Ivette Welsh MD Plumbing Technician: Signed Normal [facility] Chest PA and Lateralon 07-15 Chest PA and Lateral [facility] Imaging Services [address] [place] [address] Chest PA and Lateral MR#: [id number] Acct: [id number] Name: SAVANNAH IRVIN Rep #: [id number] : 1965 F 59 From: Javon cheung MD PCP: Dr. Ivette Welsh MD Status: [facility] ER Study: Chest PA and Lateral Date of Exam: 07/15/24 Exam# [id number] Ordering Dr: Queenie Herrera DO [id number] STUDY: X-RAY CHEST REASON FOR EXAM: Female, [...] Signed: Javon Neumann MD at 18:00 EST , CC: Dr. Queenie Herrera, DO; Dr. Ivette Welsh MD Plumbing Technician: Signed Normal [facility] Comprehensive Metabolic Prof ilon 07-15-2024 Albumin [Mass/Vol] 3.1 g/dL Low 3.2-5.0 [facility] Comment on above: Performed By: #### L 501.4020, L501.3620, L501.5200 #### [facility] Laboratory [address] [place], [address] Albumin/Globulin [Mass ratio] 0.8 {ratio} Low 0.9-2.4 [facility] Comment on above: Performed By: #### L 501.4020, L501.3620, L501.5200 #### [facility] Laboratory [address] [place], [address] ALK P 101 U/L Normal 45-117 [facility] Comment on above: Performed By: #### L 501.4020, L501.3620, L501.5200 #### [facility] [address] [place], [address] ALT [Catalytic activity/Vol] 15 U/L Normal 13-56 [facility] Comment on above: Performed By: #### L 501.4020, L501.3620, L501.5200 #### [facility] [address] [place], [address] AST [Catalytic activity/Vol] 16 U/L Normal 15-37 [facility] Comment on above: Performed By: #### L 501.4020, L501.3620, L501.5200 #### [facility] [address] [place], [address] Bilirubin [Mass/Vol] 0.40 mg/dL Normal 0.20-1.00 [facility] Comment on above: Result Comment: For patients on eltrombopag therapy, use of Dimension [place] TBIL is not recommended. Performed By: #### L 501.4020, L501.3620, L501.5200 #### [facility] [address] [place], [address] BUN/CRE 10.9 RATIO Normal 10-20 [facility] Comment on above: Performed By: #### L 501.4020, L501.3620, L501.5200 #### [facility] [address] [place], [address] CA,Total 8.6 mg/dL Normal 8.5-10.1 [facility] Comment on above: Performed By: #### L 501.4020, L501.3620, L501.5200 #### [facility] [address] [place], [address] Chloride [Moles/Vol] 99 mmol/L Normal 98-107 [facility] Comment on above: Performed By: #### L 501.4020, L501.3620, L501.5200 #### [facility] [address] [place], [address] CO2 [Moles/Vol] 28.0 mmol/L Normal 21.0-32.0 [facility] Comment on above: Performed By: #### L 501.4020, L501.3620, L501.5200 #### [facility] [address] [place], [address] Creatinine [Mass/Vol] 0.82 mg/dL Normal 0.55-1.02 [facility] Comment on above: Result Comment: The validity of the calculated GFR GFRAA in patients over 70 years has not been determined. Clinical correlation is essential. Performed By: #### L 501.4020, L501.3620, L501.5200 #### [facility] [address] [place], [address] ECRCL 74.21 ml/min Normal [facility] Comment on above: Performed By: #### L 501.4020, L501.3620, L501.5200 #### [facility] [address] [place], [address] EST GFR - AA 92 mL/min Normal >60 [facility] Comment on above: Result Comment: Afri can Danish GFR Calc Performed By: #### L 501.4020, L501.3620, L501.5200 #### [facility] [address] [place], [address] GAP 8 Normal 5-15 [facility] Comment on above: Performed By: #### L 501.4020, L501.3620, L501.5200 #### [facility] [address] [place], [address] GFR/1.73 sq M.predicted among non-blacks MDRD (S/P/Bld) [Vol rate/Area] 76 mL/min/{1.73_m2} Normal >60 [facility] Comment on above: Result Comment: Non- GFR Calc Performed By: #### L 501.4020, L501.3620, L501.5200 #### [facility] [address] [place], [address] Globulin (S) [Mass/Vol] 4.1 g/dL Normal 2.2-4.2 [facility] Comment on above: Performed By: #### L 501.4020, L501.3620, L501.5200 #### [facility] [address] [place], [address] Glucose [Mass/Vol] 112 mg/dL High 74-106 [facility] Comment on above: Result Comment: Fast ing Glucose result from 100 to 125 mg/dL suggests IMPAIRED HOMEOSTASIS per A.D.A. criteria. Performed By: #### L 501.4020, L501.3620, L501.5200 #### [facility] [address] [place], [address] Potassium [Moles/Vol] 3.2 mmol/L Low 3.5-5.1 [facility] Comment on above: Performed By: #### L 501.4020, L501.3620, L501.5200 #### [facility] [address] [place], [address] Sodium [Moles/Vol] 135 mmol/L Low 136-145 [facility] Comment on above: Performed By: #### L 501.4020, L501.3620, L501.5200 #### [facility] [address] [place], [address] T PROT 7.2 g/dL Normal 6.4-8.2 [facility] Comment on above: Performed By: #### L 501.4020, L501.3620, L501.5200 #### [facility] Laboratory [address] [place], [address] Urea nitrogen [Mass/Vol] 9 mg/dL Normal 7-18 [facility] Comment on above: Performed By: #### L 501.4020, L501.3620, L501.5200 #### [facility] [address] [place], [address] Emergency Department Summary on 07-15-2024 Emergency Department Summary [facility] Medical Records Department [address] [place] [address] Emergency Department Summary 07/15/24 MR#: [id number] Acct: [id number] Name: SAVANNAH IRVIN Rep #: [id number] : 1965 59 From: Queenie Herrera DO [...] She notes her daughter was sick over [place] and she was around her. She does report a mild headache. No fevers reported. Does not take anything for symptoms prior to arrival. Does take a daily inhaler but no other medications. No other complaints or concerns reported at this time. [facility] Medical History Hypertension Gastroesophageal reflux disease Leukocytosis [...] Oxygen Delive (more content not included)... Normal [facility] H AND P Exam - Hospitaliston 07-15-2024 H&P Exam - Hospitalist [facility] Medical Records Department [address] [place] [address] H P Exam - Hospitalist 07/15/24 2307 MR#: [id number] Acct: [id number] Name: SAVANNAH IRVIN Rep #: [id number] : 1965 59 From: Albert Hartmann DO PCP: Dr. Ivette Welsh MD Status:ADM IN Location: [facility] [id number] HPI - General General Date of Admission: [...] hydrocodone every 6 hours who presents to [facility] ER complaining of shortness of [...] is expected to extend beyond 2 midnights. [facility] Medical History Hypertension Gastroesophageal reflux disease [...] History (Review (more content not included)... Normal [facility] L501.4020on 07-15-2024 TROPONIN-I HS 15 pg/mL Normal 3.0-54.0 [facility] Comment on above: Order Comment: 'TROP ' Serial specimen #1, #2 or #3: 1 Result Comment: Plea se Note: New Test Units and Gender Specific Reference Ranges. For more information see Policy Stat Procedure [place] High Sensitivity Troponin (TNIH) and attachments. Performed By: #### L 501.4020, L501.3620, L501.5200 #### [facility] [address] [place], [address] Lipaseon 07-15-2024 Lipase [Catalytic activity/Vol] 22 U/L Normal 13-75 [facility] Comment on above: Result Comment: Plea se note: LIPASE revised reference range effective 22. New Lipase methodology. Expected to produce lower values than the previous assay method. NEW Reference Range: 13 - 75 U/L Performed By: #### L 501.4020, L501.3620, L501.5200 #### [facility] [address] [place], [address] M100.678on 07-15-2024 M100.678 Pending SARS-CoV-2 (COVID 19) Negative INFLUENZA A Negative INFLUENZA B Negative RSV PCR Negative Normal [facility] Comment on above: Performed By: #### L 500.4050, L100.0100, L501.2450 #### [facility] Laboratory [address] [place], [address] Magnesiumon 07-15-2024 Magnesium [Mass/Vol] 1.8 mg/dL Normal 1.6-2.6 [facility] Comment on above: Order Comment: 'TROP ' Serial specimen #1, #2 or #3: 1 Performed By: #### L 501.4020, L501.3620, L501.5200 #### [facility] [address] [place], [address] Urinalysis, Completeon 07-15 CAST,HYALINE 0-5 SEEN Normal 0-5 [facility] Comment on above: Order Comment: CLEAN CATCH Performed By: #### L 500.4050, L100.0100, L501.2450 #### [facility] [address] [place], [address] RBC 0-5 SEEN Normal 0-5 [facility] Comment on above: Order Comment: CLEAN CATCH Performed By: #### L 500.4050, L100.0100, L501.2450 #### [facility] [address] [place], [address] WBC 0-5 SEEN Normal 0-5 [facility] Comment on above: Order Comment: CLEAN CATCH Performed By: #### L 500.4050, L100.0100, L501.2450 #### [facility] [address] [place], [address] BACTERIA 1+ /hpf Normal None Seen [facility] Comment on above: Order Comment: CLEAN CATCH Performed By: #### L 500.4050, L100.0100, L501.2450 #### [facility] [address] [place], [address] EPI,SQUAMOUS 0-5 SEEN Normal 5-10 [facility] Comment on above: Order Comment: CLEAN CATCH Performed By: #### L 500.4050, L100.0100, L501.2450 #### [facility] [address] [place], [address] Mucus Ql (Urine sed) 0 SEEN Normal [facility] Comment on above: Order Comment: CLEAN CATCH Performed By: #### L 500.4050, L100.0100, L501.2450 #### [facility] [facility] [address] [place], [address] Urine Cultureon 04-30-2024 URC Escherichia coli [place] Count >100,000 Escherichia coli: REACTION Ampicillin Islt [...] TMP SMX Islt SYLVESTER <=20 S Normal [facility] Comment on above: Performed By: #### L 500.4050, L100.0100, L501.2450 #### [facility] [address] [place], [address] Basic Metabolic Profile (BMP )on 04-28-2024 BUN/CRE 20.5 RATIO High 05-07 [facility] Comment on above: Performed By: #### L 501.4020, L501.3620, L501.5200 #### [facility] [address] [place], [address] CA,Total 9.3 mg/dL Normal 8.5-10.1 [facility] Comment on above: Performed By: #### L 501.4020, L501.3620, L501.5200 #### [facility] [address] [place], [address] Chloride [Moles/Vol] 98 mmol/L Normal 98-107 [facility] Comment on above: Performed By: #### L 501.4020, L501.3620, L501.5200 #### [facility] [address] [place], [address] CO2 [Moles/Vol] 30.0 mmol/L Normal 21.0-32.0 [facility] Comment on above: Performed By: #### L 501.4020, L501.3620, L501.5200 #### [facility] [address] [place], [address] Creatinine [Mass/Vol] 0.88 mg/dL Normal 0.55-1.02 [facility] Comment on above: Result Comment: The validity of the calculated GFR GFRAA in patients over 70 years has not been determined. Clinical correlation is essential. Performed By: #### L 501.4020, L501.3620, L501.5200 #### [facility] [address] [place], [address] ECRCL 69.59 ml/min Normal [facility] Comment on above: Performed By: #### L 501.4020, L501.3620, L501.5200 #### [facility] [address] [place], [address] EST GFR - AA 85 mL/min Normal >60 [facility] Comment on above: Result Comment: Afri can Danish GFR Calc Performed By: #### L 501.4020, L501.3620, L501.5200 #### [facility] [address] [place], [address] GAP 7 Normal 5-15 [facility] Comment on above: Performed By: #### L 501.4020, L501.3620, L501.5200 #### [facility] [address] [place], [address] GFR/1.73 sq M.predicted among non-blacks MDRD (S/P/Bld) [Vol rate/Area] 71 mL/min/{1.73_m2} Normal >60 [facility] Comment on above: Result Comment: Non- GFR Calc Performed By: #### L 501.4020, L501.3620, L501.5200 #### [facility] [address] [place], [address] Glucose [Mass/Vol] 107 mg/dL High 74-106 [facility] Comment on above: Result Comment: Fast ing Glucose result from 100 to 125 mg/dL suggests IMPAIRED HOMEOSTASIS per A.D.A. criteria. Performed By: #### L 501.4020, L501.3620, L501.5200 #### [facility] [address] [place], [address] Potassium [Moles/Vol] 3.2 mmol/L Low 3.5-5.1 [facility] Comment on above: Performed By: #### L 501.4020, L501.3620, L501.5200 #### [facility] [address] [place], [address] Sodium [Moles/Vol] 135 mmol/L Low 136-145 [facility] Comment on above: Performed By: #### L 501.4020, L501.3620, L501.5200 #### [facility] [address] [place], [address] Urea nitrogen [Mass/Vol] 18 mg/dL Normal 7-18 [facility] Comment on above: Performed By: #### L 501.4020, L501.3620, L501.5200 #### [facility] [address] [place], [address] CBC W/Diff, Automatedon 10-1 Absolute Lymph 2.04 X10 3/uL Normal 0.83-4.51 [facility] Comment on above: Performed By: #### L 501.4020, L501.3620, L501.5200 #### [facility] [address] [place], [address] Absolute Neut 5.8 X10 3/uL Normal 2.0-7.7 [facility] Comment on above: Performed By: #### L 501.4020, L501.3620, L501.5200 #### [facility] [address] [place], [address] Basophils/100 WBC (Bld) 0.6 % Normal 0-1 [facility] Comment on above: Performed By: #### L 501.4020, L501.3620, L501.5200 #### [facility] [address] [place], [address] Eosinophils/100 WBC (Bld) 1.1 % Normal 0-5 [facility] Comment on above: Performed By: #### L 501.4020, L501.3620, L501.5200 #### [facility] [address] [place], [address] Erythrocyte distribution width (RBC) [Ratio] 13.6 % Normal 11.6-14.6 [facility] Comment on above: Performed By: #### L 501.4020, L501.3620, L501.5200 #### [facility] [address] [place], [address] Hematocrit (Bld) [Volume fraction] 46.3 % Normal 37-47 [facility] Comment on above: Performed By: #### L 501.4020, L501.3620, L501.5200 #### [facility] [address] [place], [address] Hemoglobin (Bld) [Mass/Vol] 14.7 g/dL Normal 12.0-15.0 [facility] Comment on above: Performed By: #### L 501.4020, L501.3620, L501.5200 #### [facility] [address] [place], [address] IG% 0.300 Normal 0.0-0.9 [facility] Comment on above: Result Comment: IG% - Immature Granulocytes (promyelocytes, myelocytes and metamyelocytes) > 1% indicates that a LEFT SHIFT is Present. Performed By: #### L 501.4020, L501.3620, L501.5200 #### [facility] [address] [place], [address] Lymphocytes/100 WBC (Bld) 22.8 % Normal 19-41 [facility] Comment on above: Performed By: #### L 501.4020, L501.3620, L501.5200 #### [facility] [address] [place], [address] MCH (RBC) [Entitic mass] 28.1 pg Normal 27.0-32.0 [facility] Comment on above: Performed By: #### L 501.4020, L501.3620, L501.5200 #### [facility] [address] [place], [address] MCHC (RBC) [Mass/Vol] 31.7 g/dL Low 32-36 [facility] Comment on above: Performed By: #### L 501.4020, L501.3620, L501.5200 #### [facility] [address] [place], [address] MCV (RBC) [Entitic vol] 88.4 fL Normal 81-99 [facility] Comment on above: Performed By: #### L 501.4020, L501.3620, L501.5200 #### [facility] [address] [place], [address] Monocytes/100 WBC (Bld) 10.7 % High 0-10 [facility] Comment on above: Performed By: #### L 501.4020, L501.3620, L501.5200 #### [facility] [address] [place], [address] Neutrophils/100 WBC (Bld) 64.5 % Normal 47-70 [facility] Comment on above: Performed By: #### L 501.4020, L501.3620, L501.5200 #### [facility] [address] [place], [address] Nucleated RBC (Bld) [#/Vol] 0 10*3/uL Normal 0-5 [facility] Comment on above: Performed By: #### L 501.4020, L501.3620, L501.5200 #### [facility] [address] [place], [address] Platelet mean volume (Bld) [Entitic vol] 9.6 fL Normal 6.2-12.0 [facility] Comment on above: Performed By: #### L 501.4020, L501.3620, L501.5200 #### [facility] [address] [place], [address] Platelets (Bld) [#/Vol] 380 10*3/uL Normal 150-450 [facility] Comment on above: Performed By: #### L 501.4020, L501.3620, L501.5200 #### [facility] [address] [place], [address] RBC (Bld) [#/Vol] 5.24 10*6/uL Normal 4.2-5.4 [facility] Comment on above: Performed By: #### L 501.4020, L501.3620, L501.5200 #### [facility] [address] [place], [address] RDW SD 44.0 fl High 35.1-43.9 [facility] Comment on above: Performed By: #### L 501.4020, L501.3620, L501.5200 #### [facility] [address] [place], [address] WBC (Bld) [#/Vol] 9.0 10*3/uL Normal 4.4-11.0 [facility] Comment on above: Performed By: #### L 501.4020, L501.3620, L501.5200 #### [facility] [address] [place], [address] Emergency Department Summary on 04-28-2024 Emergency Department Summary [facility] Medical Records Department [address] [facility] [place] [address] Emergency Department Summary 04/28/24 MR#: [id number] Acct: [id number] Name: SAVANNAH IRVIN SRIDHAR Rep #: [id number] : 1965 58 From: Tereso Bajwa MD [...] respiratory e (more content not included)... Normal [facility] Urinalysis, Completeon 04-28 EPI,RENAL 0-5 SEEN Normal 0-5 [facility] Comment on above: Order Comment: 'TROP ' Serial specimen #1, #2 or #3: 1 Performed By: #### L 501.4020, L501.3620, L501.5200 #### [facility] [address] [place], [address] BACTERIA 4+ /hpf Normal None Seen [facility] Comment on above: Order Comment: 'TROP ' Serial specimen #1, #2 or #3: 1 Performed By: #### L 501.4020, L501.3620, L501.5200 #### [facility] [address] [place], [address] EPI,SQUAMOUS 0-5 SEEN Normal 5-10 [facility] Comment on above: Order Comment: 'TROP ' Serial specimen #1, #2 or #3: 1 Performed By: #### L 501.4020, [id number], L501.5200 #### [facility] [address] [place], [address] RBC 5-10 SEEN Normal 0-5 [facility] Comment on above: Order Comment: 'TROP ' Serial specimen #1, #2 or #3: 1 Performed By: #### L 501.4020, L501.3620, L501.5200 #### [facility] [address] [place], [address] WBC 25-50 SEEN Normal 0-5 [facility] Comment on above: Order Comment: 'TROP ' Serial specimen #1, #2 or #3: 1 Performed By: #### L 501.4020, L501.3620, L501.5200 #### [facility] [address] [place], [address] Mucus Ql (Urine sed) 0 SEEN Normal [facility] Comment on above: Order Comment: 'TROP ' Serial specimen #1, #2 or #3: 1 Performed By: #### L 501.4020, L501.3620, L501.5200 #### [facility] [address] [place], [address] Absolute lymphocyte countOrd ered By: Alexandru Holden on 06-05-2023 Lymphocytes Auto (Unsp spec) [#/Vol] 0.93 10*3/uL 0.83-4.51 [facility] Basophil percentageOrdered B y: Alexandru Holden on 06-05-2023 Basophils/100 WBC (Bld) 0.1 % 0-1 [facility] Chloride [Moles/Vol] 106 mmol/L 98-107 [facility] Eosinophils/100 WBC (Bld) 0.0 % 0-5 [facility] Glucose [Mass/Vol] 223 mg/dL 74-106 [facility] Comment on above: Glucose result great er than or equal to 200 mg/dLsuggests DIABETES MELLITUS per A.D.A. criteria. Neutrophils (Bld) [#/Vol] 7.9 10*3/uL 2.0-7.7 [facility] Neutrophils/100 WBC (Bld) 88.4 % 47-70 [facility] Potassium [Moles/Vol] 3.4 mmol/L 3.5-5.1 [facility] Sodium [Moles/Vol] 138 mmol/L 136-145 [facility] WBC (Bld) [#/Vol] 8.9 10*3/uL 4.4-11.0 [facility] Blood erythrocytes count (nu mber/volume)Ordered By: Alexandru Holden on 06-05-2023 RBC (Bld) [#/Vol] 4.85 10*6/uL 4.2-5.4 [facility] Blood hemoglobin measurement (mass/volume)Ordered By: Alexandru Holden on 06-05-2023 Hemoglobin (Bld) [Mass/Vol] 13.5 g/dL 12.0-15.0 [facility] Blood lymphocytes/100 leukoc ytesOrdered By: Alexandru Holden on 06-05-2023 Lymphocytes/100 WBC (Bld) 10.5 % 19-41 [facility] Blood monocytes/100 leukocyt esOrdered By: Alexandru Holden on 06-05-2023 Monocytes/100 WBC (Bld) 0.5 % 0-10 [facility] Blood platelet mean volumeOr dered By: Alexandru Holden on 06-05-2023 Platelet mean volume (Bld) [Entitic vol] 9.6 fL 6.2-12.0 [facility] Determination of erythrocyte mean corpuscular volume (MCV)Ordered By: Alexandru Holden on 06-05-2023 MCV (RBC) [Entitic vol] 88.7 fL 81-99 [facility] Hematocrit Auto (Bld) [Volum e fraction]Ordered By: Alexandru Holden on 06-05-2023 Hematocrit (Bld) [Volume fraction] 43.0 % 37-47 [facility] - Chemistry and C hemistry - challengeOrdered By: Alexandru Holden on 06-05-2023 CO2 [Moles/Vol] 24.0 mmol/L 21.0-32.0 [facility] Urea nitrogen/Creatinine [Mass ratio] 14.9 mg/mg 10-20 [facility] - Hematology and Cell countsOrdered By: Alexandru Holden on 06-05-2023 Erythrocyte distribution width (RBC) [Entitic vol] 44.9 fL 35.1-43.9 [facility] Erythrocyte distribution width (RBC) [Ratio] 13.9 % 11.6-14.6 [facility] Immature granulocytes/100 WBC (Bld) 0.500 % 0.0-0.9 [facility] Comment on above: IG% - Immature Granu locytes (promyelocytes, myelocytes and metamyelocytes) > 1% indicates that a LEFT SHIFT is Present. MCH (RBC) [Entitic mass] 27.8 pg 27.0-32.0 [facility] Nucleated RBC/100 WBC (Bld) [Ratio] 0 % 0-5 [facility] MCHC Auto (RBC) [Mass/Vol]Or dered By: Alexandru Holden on 06-05-2023 MCHC (RBC) [Mass/Vol] 31.4 g/dL 32-36 [facility] No Panel InformationOrdered By: Alexandru Holden on 06-05-2023 Estimated Creatinine Clearance Calc 61.64 ml/min [facility] Estimated GFR (MDRD) Amer 86 mL/min >60 [facility] Comment on above: GFR Calc Estimated GFR (MDRD) Non-Af Amer 71 mL/min >60 [facility] Comment on above: Non- GFR Calc Platelets bldOrdered By: Noam Holden on 06-05-2023 Platelets (Bld) [#/Vol] 544 10*3/uL 150-450 [facility] Serum or plasma calcium scarlett urement (mass/volume)Ordered By: Alexandru Holden on 06-05-2023 Calcium [Mass/Vol] 8.8 mg/dL 8.5-10.1 [facility] Serum or plasma creatinine m easurement (mass/volume)Ordered By: Alexandru Holden on 06-05-2023 Creatinine [Mass/Vol] 0.88 mg/dL 0.55-1.02 [facility] Comment on above: The validity of the calculated GFR & GFRAA in patients over 70 years has not been determined. Clinical correlation is essential. Serum or plasma urea nitroge n measurement (mass/volume)Ordered By: Alexandru Holden on 06-05-2023 Urea nitrogen [Mass/Vol] 13 mg/dL - [facility] Serum procalcitonin measurem entOrdered By: Alexandru Holden on 06-05-2023 Procalcitonin [Mass/Vol] ng/mL 0.00-0.09 [facility] Comment on above: A procalcitonin [...] Papanicolaou smear with manual screening 8 5-15 [facility] Absolute lymphocyte countOrd ered By: Idalia Sanchez on 06-04-2023 Lymphocytes Auto (Unsp spec) [#/Vol] 3.40 10*3/uL 0.83-4.51 [facility] Basophil percentageOrdered B y: Idalia Sanchez on 06-04-2023 Basophils/100 WBC (Bld) 0.6 % 0-1 [facility] Bilirubin [Mass/Vol] 0.40 mg/dL 0.20-1.00 [facility] Comment on above: For patients on eltr ombopag therapy, use of Dimension [place] TBIL is not recommended. Chloride [Moles/Vol] 106 mmol/L 98-107 [facility] Eosinophils/100 WBC (Bld) 4.2 % 0-5 [facility] Glucose [Mass/Vol] 102 mg/dL 74-106 [facility] Comment on above: Fasting Glucose resu lt from 100 to 125 mg/dL suggests IMPAIRED HOMEOSTASIS per A.D.A. criteria. Neutrophils (Bld) [#/Vol] 8.5 10*3/uL 2.0-7.7 [facility] Neutrophils/100 WBC (Bld) 61.9 % 47-70 [facility] Potassium [Moles/Vol] 3.5 mmol/L 3.5-5.1 [facility] Protein [Mass/Vol] 7.9 g/dL 6.4-8.2 [facility] Sodium [Moles/Vol] 141 mmol/L 136-145 [facility] WBC (Bld) [#/Vol] 13.7 10*3/uL 4.4-11.0 [facility] Blood erythrocytes count (nu mber/volume)Ordered By: Idalia Sanchez on 06-04-2023 RBC (Bld) [#/Vol] 5.13 10*6/uL 4.2-5.4 [facility] Blood hemoglobin measurement (mass/volume)Ordered By: Idalia Sanchez on 06-04-2023 Hemoglobin (Bld) [Mass/Vol] 14.2 g/dL 12.0-15.0 [facility] Blood lymphocytes/100 leukoc ytesOrdered By: Idalia Sanchez on 06-04-2023 Lymphocytes/100 WBC (Bld) 24.9 % 19-41 [facility] Blood monocytes/100 leukocyt esOrdered By: Idalia Sanchez on 06-04-2023 Monocytes/100 WBC (Bld) 8.1 % 0-10 [facility] Blood platelet mean volumeOr dered By: Idalia Sanchez on 06-04-2023 Platelet mean volume (Bld) [Entitic vol] 9.3 fL 6.2-12.0 [facility] Determination of erythrocyte mean corpuscular volume (MCV)Ordered By: Idalia Sanchez on 06-04-2023 MCV (RBC) [Entitic vol] 87.9 fL 81-99 [facility] Direct bilirubinOrdered By: Idalia Sanchez on 06-04-2023 Bilirubin.direct [Mass/Vol] 0.12 mg/dL 0.00-0.30 [facility] Hematocrit Auto (Bld) [Volum e fraction]Ordered By: Idalia Sanchez on 06-04-2023 Hematocrit (Bld) [Volume fraction] 45.1 % 37-47 [facility] Influenza virus A and B and SARS-CoV-2 (COVID-19) Ag panel - Upper respiratory specimOrdered By: Idalia Sanchez on 06-04-2023 SARS-CoV-2 (COVID-19) RNA SONG+probe Ql (Resp) [facility] - Chemistry and C hemistry - challengeOrdered By: Idalia Sanchez on 06-04-2023 ALP [Catalytic activity/Vol] 114 U/L 45-117 [facility] ALT [Catalytic activity/Vol] 18 U/L 13-56 [facility] CO2 [Moles/Vol] 29.0 mmol/L 21.0-32.0 [facility] Globulin (S) [Mass/Vol] 4.4 g/dL 2.2-4.2 [facility] Urea nitrogen/Creatinine [Mass ratio] 16.3 mg/mg 10-20 [facility] - Hematology and Cell countsOrdered By: Idalia Sanchez on 06-04-2023 Erythrocyte distribution width (RBC) [Entitic vol] 44.2 fL 35.1-43.9 [facility] Erythrocyte distribution width (RBC) [Ratio] 13.7 % 11.6-14.6 [facility] Immature granulocytes/100 WBC (Bld) 0.300 % 0.0-0.9 [facility] Comment on above: IG% - Immature Granu locytes (promyelocytes, myelocytes and metamyelocytes) > 1% indicates that a LEFT SHIFT is Present. MCH (RBC) [Entitic mass] 27.7 pg 27.0-32.0 [facility] Nucleated RBC/100 WBC (Bld) [Ratio] 0 % 0-5 [facility] MCHC Auto (RBC) [Mass/Vol]Or dered By: Idalia Sanchez on 06-04-2023 MCHC (RBC) [Mass/Vol] 31.5 g/dL 32-36 [facility] No Panel InformationOrdered By: Idalia Sanchez on 06-04-2023 Estimated Creatinine Clearance Calc 58.96 ml/min [facility] Estimated GFR (MDRD) Amer 81 mL/min >60 [facility] Comment on above: GFR Calc Estimated GFR (MDRD) Non-Af Amer 67 mL/min >60 [facility] Comment on above: Non- GFR Calc Troponin I High Sensitivity 12 pg/mL 3.0-54.0 [facility] Comment on above: Please Note: New Stacey t Units and Gender Specific Reference Ranges. For more information see Policy Stat Procedure [place] High Sensitivity Troponin (TNIH) and attachments. Platelets bldOrdered By: Lara Sanchez on 06-04-2023 Platelets (Bld) [#/Vol] 558 10*3/uL 150-450 [facility] Serum or plasma albumin scarlett urement (mass/volume)Ordered By: Idalia Sanchez on 06-04-2023 Albumin [Mass/Vol] 3.5 g/dL 3.2-5.0 [facility] Serum or plasma calcium scarlett urement (mass/volume)Ordered By: Idalia Sanchez on 06-04-2023 Calcium [Mass/Vol] 9.1 mg/dL 8.5-10.1 [facility] Serum or plasma creatinine m easurement (mass/volume)Ordered By: Idalia Sanchez on 06-04-2023 Creatinine [Mass/Vol] 0.92 mg/dL 0.55-1.02 [facility] Comment on above: The validity of the calculated GFR & GFRAA in patients over 70 years has not been determined. Clinical correlation is essential. Serum or plasma urea nitroge n measurement (mass/volume)Ordered By: Idalia Sanchez on 06-04-2023 Urea nitrogen [Mass/Vol] 15 mg/dL 7-18 [facility] Thin prep Papanicolaou smear with manual screeningOrdered By: Idalia Sanchez on 06-04-2023 Thin prep Papanicolaou smear with manual screening 14 U/L 15-37 [facility] Thin prep Papanicolaou smear with manual screening 6 5-15 [facility] Basic metabolic 2000 panelon 05-01-2023 Anion gap [Moles/Vol] 5 mmol/L Normal 5-16 [facility] Comment on above: Order Comment: Speci men Type: BLOOD SPECIMEN Ordering Facility: [facility] Address: [address] [place] [address] Performed By: #### 5 7021-8 #### [facility] CLIA [id number] [address] [place] [address] [place] Calcium [Mass/Vol] 9.0 mg/dL Normal 8.5-10.5 [facility] Comment on above: Order Comment: Speci men Type: BLOOD SPECIMEN Ordering Facility: [facility] Address: [address] [place] [address] Performed By: #### 5 7021-8 #### [facility] CLIA [id number] [address] [place] [address] [place] Chloride [Moles/Vol] 107 mmol/L Normal 98-107 [facility] Comment on above: Order Comment: Speci men Type: BLOOD SPECIMEN Ordering Facility: [facility] Address: [address] [place] [address] Performed By: #### 5 7021-8 #### [facility] CLIA [id number] [address] [place] [address] [place] CO2 [Moles/Vol] 30 mmol/L Normal 21-32 [facility] Comment on above: Order Comment: Speci men Type: BLOOD SPECIMEN Ordering Facility: [facility] Address: [address] [place] [address] Performed By: #### 5 7021-8 #### [facility] CLIA [id number] [address] [place] [address] [place] Creatinine [Mass/Vol] 0.81 mg/dL Normal 0.51-0.95 [facility] Comment on above: Order Comment: Speci men Type: BLOOD SPECIMEN Ordering Facility: [facility] Address: [address] [place] [address] Result Comment: Yojana ents receiving either N-Acetylcysteine (NAC) or Metamizole prior to venipuncture, may have falsely depressed results. Performed By: #### 5 7021-8 #### [facility] CLIA [id number] [address] [place] [address] [place] Creatinine and Glomerular filtration rate.predicted panel (S/P/Bld) 85 mL/min/1.73m??? Normal >=60 [facility] Comment on above: Order Comment: Merissa farris Type: BLOOD SPECIMEN Ordering Facility: [facility] Address: [address] [place] [address] Result Comment: Aracely mated Glomerular Filtration Rate [...] GFR. Performed By: #### 5 7021-8 #### [facility] CLIA [id number] [address] [place] [address] [place] Glucose [Mass/Vol] 111 mg/dL High 70-100 [facility] Comment on above: Order Comment: Merissa farris Type: BLOOD SPECIMEN Ordering Facility: [facility] Address: [address] [place] [address] Result Comment: The [place] [employer] (ADA) provides guidance for cutoff [...] Standards of Medical Care in Diabetes 2016, [place] Diabetes Association. Diabetes Care. 2016.39(Suppl 1). Results may be falsely elevated after the administration of Sulfapyridine. Results may be falsely depressed after the administration of Sulfasalazine. Performed By: #### 5 7021-8 #### [facility] CLIA [id number] [address] [place] [address] [place] Potassium [Moles/Vol] 4.9 mmol/L Normal 3.5-5.1 [facility] Comment on above: Order Comment: Speci men Type: BLOOD SPECIMEN Ordering Facility: [facility] Address: [address] [place] [address] Performed By: #### 5 7021-8 #### [facility] CLIA [id number] [address] [place] [address] [place] Sodium [Moles/Vol] 142 mmol/L Normal 136-145 [facility] Comment on above: Order Comment: Speci men Type: BLOOD SPECIMEN Ordering Facility: [facility] Address: [address] [place] [address] Performed By: #### 5 7021-8 #### [facility] CLIA [id number] [address] [place] [address] [place] Urea nitrogen [Mass/Vol] 10 mg/dL Normal 7-26 [facility] Comment on above: Order Comment: Speci men Type: BLOOD SPECIMEN Ordering Facility: [facility] Address: [address] [place] [address] Performed By: #### 5 7021-8 #### [facility] CLIA [id number] [address] [place] [address] [place] CBC W Auto Differential pane l (Bld)on 05-01-2023 Basophils (Bld) [#/Vol] 0.05 10*3/uL Normal <0.11 [facility] Comment on above: Order Comment: Speci men Type: BLOOD SPECIMEN Ordering Facility: [facility] Address: [address] [place] [address] Performed By: #### 5 7021-8 #### [facility] CLIA [id number] [address] [place] [address] [place] Basophils/100 WBC (Bld) 0.4 % Normal [facility] Comment on above: Order Comment: Speci men Type: BLOOD SPECIMEN Ordering Facility: [facility] Address: [address] [place] [address] Performed By: #### 5 7021-8 #### [facility] CLIA [id number] [address] [place] [address] [place] Differential cell count method Nom (Bld) Auto Normal [facility] Comment on above: Order Comment: Speci men Type: BLOOD SPECIMEN Ordering Facility: [facility] Address: [address] [place] [address] Performed By: #### 5 7021-8 #### [facility] CLIA [id number] [address] [place] [address] [place] Eosinophils (Bld) [#/Vol] 0.26 10*3/uL Normal <0.46 [facility] Comment on above: Order Comment: Speci men Type: BLOOD SPECIMEN Ordering Facility: [facility] Address: [address] [place] [address] Performed By: #### 5 7021-8 #### [facility] CLIA [id number] [address] [place] [address] [place] Eosinophils/100 WBC (Bld) 2.0 % Normal [facility] Comment on above: Order Comment: Speci men Type: BLOOD SPECIMEN Ordering Facility: [facility] Address: [address] [place] [address] Performed By: #### 5 7021-8 #### [facility] CLIA [id number] [address] [place] [address] [place] Erythrocyte distribution width (RBC) [Ratio] 14.2 % Normal 11.5-15.0 [facility] Comment on above: Order Comment: Speci men Type: BLOOD SPECIMEN Ordering Facility: [facility] Address: [address] [place] [address] Performed By: #### 5 7021-8 #### [facility] CLIA [id number] [address] [place] [address] [place] Hematocrit (Bld) [Volume fraction] 41.4 % Normal 36.0-46.0 [facility] Comment on above: Order Comment: Speci men Type: BLOOD SPECIMEN Ordering Facility: [facility] Address: [address] [place] [address] Performed By: #### 5 7021-8 #### [facility] CLIA [id number] [address] [place] [address] [place] Hemoglobin (Bld) [Mass/Vol] 12.9 g/dL Normal 11.5-15.5 [facility] Comment on above: Order Comment: Speci men Type: BLOOD SPECIMEN Ordering Facility: [facility] Address: [address] [place] [address] Performed By: #### 5 7021-8 #### [facility] CLIA [id number] [address] [place] [address] [place] Immature granulocytes (Bld) [#/Vol] 0.06 10*3/uL Normal <0.10 [facility] Comment on above: Order Comment: Speci men Type: BLOOD SPECIMEN Ordering Facility: [facility] Address: [address] [place] [address] Performed By: #### 5 7021-8 #### [facility] CLIA [id number] [address] [place] [address] [place] Immature granulocytes/100 WBC (Bld) 0.5 % Normal [facility] Comment on above: Order Comment: Speci men Type: BLOOD SPECIMEN Ordering Facility: [facility] Address: [address] [place] [address] Performed By: #### 5 7021-8 #### [facility] CLIA [id number] [address] [place] [address] [place] Lymphocytes (Bld) [#/Vol] 2.07 10*3/uL Normal 1.00-4.00 [facility] Comment on above: Order Comment: Speci men Type: BLOOD SPECIMEN Ordering Facility: [facility] Address: [address] [place] [address] Performed By: #### 5 7021-8 #### [facility] CLIA [id number] [address] [place] [address] [place] Lymphocytes/100 WBC (Bld) 16.3 % Normal [facility] Comment on above: Order Comment: Speci men Type: BLOOD SPECIMEN Ordering Facility: [facility] Address: [address] [place] [address] Performed By: #### 5 7021-8 #### [facility] CLIA [id number] [address] [place] [address] [place] MCH (RBC) [Entitic mass] 27.7 pg Normal 26.0-34.0 [facility] Comment on above: Order Comment: Speci men Type: BLOOD SPECIMEN Ordering Facility: [facility] Address: [address] [place] [address] Performed By: #### 5 7021-8 #### [facility] CLIA [id number] [address] [place] [address] [place] MCHC (RBC) [Mass/Vol] 31.2 g/dL Normal 30.5-36.0 [facility] Comment on above: Order Comment: Speci men Type: BLOOD SPECIMEN Ordering Facility: [facility] Address: [address] [place] [address] Performed By: #### 5 7021-8 #### [facility] CLIA [id number] [address] [place] [place] [address] [place] MCV (RBC) [Entitic vol] 88.8 fL Normal 80.0-100.0 [facility] Comment on above: Order Comment: Speci men Type: BLOOD SPECIMEN Ordering Facility: [facility] Address: [address] [place] [address] Performed By: #### 5 7021-8 #### [facility] CLIA [id number] [address] [place] [address] [facility] [place] Monocytes (Bld) [#/Vol] 1.38 10*3/uL High <0.87 [facility] Comment on above: Order Comment: Speci men Type: BLOOD SPECIMEN Ordering Facility: [facility] Address: [address] [place] [address] Performed By: #### 5 7021-8 #### [facility] CLIA [id number] [address] [place], [place] [address] [place] Monocytes/100 WBC (Bld) 10.9 % Normal [facility] Comment on above: Order Comment: Speci men Type: BLOOD SPECIMEN Ordering Facility: [facility] Address: [address] [place] [address] Performed By: #### 5 7021-8 #### [facility] CLIA [id number] [address] [place] [address] [place] Neutrophils (Bld) [#/Vol] 8.89 10*3/uL High 1.45-7.50 [facility] Comment on above: Order Comment: Speci men Type: BLOOD SPECIMEN Ordering Facility: [facility] Address: [address] [place] [address] Performed By: #### 5 7021-8 #### [facility] CLIA [id number] [address] [place] [address] [place] Neutrophils/100 WBC (Bld) 69.9 % Normal [facility] Comment on above: Order Comment: Speci men Type: BLOOD SPECIMEN Ordering Facility: [facility] Address: [address] [place] [address] Performed By: #### 5 7021-8 #### [facility] CLIA [id number] [address] [place] [address] [place] Nucleated RBC (Bld) [#/Vol] 10*3/uL Normal <0.01 [facility] Comment on above: Order Comment: Speci men Type: BLOOD SPECIMEN Ordering Facility: [facility] Address: [address] [place] [address] Performed By: #### 5 7021-8 #### [facility] CLIA [id number] [address] [place] [address] [place] Nucleated RBC/100 WBC (Bld) [Ratio] 0.0 /100 WBC Normal [facility] Comment on above: Order Comment: Speci men Type: BLOOD SPECIMEN Ordering Facility: [facility] Address: [address] [place], [place] [address] Performed By: #### 5 7021-8 #### [facility] CLIA [id number] [address] [place], [place] [address] [place] Platelet mean volume (Bld) [Entitic vol] 9.5 fL Normal 9.0-12.7 [facility] Comment on above: Order Comment: Speci men Type: BLOOD SPECIMEN Ordering Facility: [facility] Address: [address] [place] [address] Performed By: #### 5 7021-8 #### [facility] CLIA [id number] [address] [place], [place] [address] [place] Platelets (Bld) [#/Vol] 424 10*3/uL High 150-400 [facility] Comment on above: Order Comment: Speci men Type: BLOOD SPECIMEN Ordering Facility: [facility] Address: [address] [place] [address] Performed By: #### 5 7021-8 #### [facility] CLIA [id number] [address] [place] [address] [place] RBC (Bld) [#/Vol] 4.66 10*6/uL Normal 3.90-5.20 [facility] Comment on above: Order Comment: Speci men Type: BLOOD SPECIMEN Ordering Facility: [facility] Address: [address] [place] [address] Performed By: #### 5 7021-8 #### [facility] CLIA [id number] [address] [place], [place] [address] [place] WBC (Bld) [#/Vol] 12.71 10*3/uL High 3.70-11.00 [facility] Comment on above: Order Comment: Speci men Type: BLOOD SPECIMEN Ordering Facility: [facility] Address: [address] [place] [address] Performed By: #### 5 7021-8 #### [facility] CLIA [id number] [address] [place], [place] [address] [facility] [place] CNDSon 05-01-2023 CNDS HNO ID: [id number] Author: Vane Rosas MD Service: General Internal [...] difficulty in breathing for few days to [facility]. Patient diagnosed with streptococcal pneumonia, [...] All Nuts [Other] Anaphylaxis Argan Nut Anaphylaxis Spencer Nut Anaphylaxis Cashew Nut Anaphylaxis Hazelnut Anaphylaxis Macadamia Nut Oil Anaphylaxis Peanuts Anaphylaxis Pecan Nut Anaphylaxis Trimble Nut Anaphylaxis Pistachio Nut Anaphylaxis Tree Nut [...] NURSING PROGon 05-01-2023 NURSING PROG HNO ID: [id number] Author: Tara Carr RN Service: Nursing Author [...] ALLIED HEALTHon 04-30-2023 ALLIED HEALTH HNO ID: [id number] Author: Velma Asif RT(R) Service: Radiology Author Type: Technologist Type: Allied Health Filed: 04/30/2023 11:22 AM Note Text: Summary: xr 60gezhd 40ccvaribar [facility] Radiology Service Progress Note PATIENT NAME: Savannah [...] RT(R) April 30, 2023 11:21 AM Normal [facility] ARTERIAL BLOOD GASESon 04-30 Base excess Calc (Bld) [Moles/Vol] 4 mmol/L High 0-2 [facility] Comment on above: Order Comment: Specmaddie farris Type: BLOOD SPECIMEN Ordering Facility: [facility] Address: [address] [place] [address] Performed By: #### 5 7021-8 #### [facility] CLIA [id number] [address] [place] [address] [place] Body temperature 98.6 [degF] Normal [facility] Comment on above: Order Comment: Merissa farris Type: BLOOD SPECIMEN Ordering Facility: [facility] Address: [address] [place] [address] Performed By: #### 5 7021-8 #### [facility] CLIA [id number] [address] [place] [address] [place] Calcium.ionized (Bld) [Mass/Vol] 1.21 mmol/L Normal 1.08-1.30 [facility] Comment on above: Order Comment: Laurai brenton Type: BLOOD SPECIMEN Ordering Facility: [facility] Address: [address] [place] [address] Performed By: #### 5 7021-8 #### [facility] CLIA [id number] [address] [place] [address] [place] Carboxyhemoglobin (BldA) [Mass fraction] 0.4 % Normal 0.0-2.0 [facility] Comment on above: Order Comment: Speci men Type: BLOOD SPECIMEN Ordering Facility: [facility] Address: [address] [place] [address] Result Comment: Carb oxyhemoglobin Reference Range for Smokers: 2.0-8.0% Performed By: #### 5 7021-8 #### [facility] CLIA [id number] [address] [place] [address] [place] CO2 (Bld) [Partial pressure] 48 mm Hg High 36-46 [facility] Comment on above: Order Comment: Speci men Type: BLOOD SPECIMEN Ordering Facility: [facility] Address: [address] [place] [address] Performed By: #### 5 7021-8 #### [facility] CLIA [id number] [address] [place] [address] [place] Glucose [Mass/Vol] 116 mg/dL High 60-105 [facility] Comment on above: Order Comment: Speci men Type: BLOOD SPECIMEN Ordering Facility: [facility] Address: [address] [place] [address] Performed By: #### 5 7021-8 #### [facility] CLIA [id number] [address] [place] [address] [place] HCO3 (Bld) [Moles/Vol] 29 mmol/L High 22-[address] [facility] Comment on above: Order Comment: Speci men Type: BLOOD SPECIMEN Ordering Facility: [facility] Address: [address] [place] [address] Performed By: #### 5 7021-8 #### [facility] CLIA [id number] [address] [place] [address] [place] Hemoglobin (Bld) [Mass/Vol] 11.6 g/dL Normal 11.5-15.5 [facility] Comment on above: Order Comment: Speci men Type: BLOOD SPECIMEN Ordering Facility: [facility] Address: [address] [place] [address] [place] [id number] Performed By: #### 5 7021-8 #### [facility] CLIA [id number] [address] [place] [address] [place] Lactate [Moles/Vol] 1.1 mmol/L Normal 0.5-2.2 [facility] Comment on above: Order Comment: Speci men Type: BLOOD SPECIMEN Ordering Facility: [facility] Address: [address] [place] [address] Performed By: #### 5 7021-8 #### [facility] CLIA [id number] [address] [place] [address] [place] LITERS 3 Liters/min Normal [facility] Comment on above: Order Comment: Speci men Type: BLOOD SPECIMEN Ordering Facility: [facility] Address: [address] [place] [place] [address] Performed By: #### 5 7021-8 #### [facility] CLIA [id number] [address] [place] [address] [place] Methemoglobin (Bld) [Mass fraction] 0.3 % Normal 0.0-1.5 [facility] Comment on above: Order Comment: Speci men Type: BLOOD SPECIMEN [facility]ing Facility: [facility] Address: [address] [facility] [place] [place] [address] Performed By: #### 5 7021-8 #### [facility] CLIA [id number] [address] [place] [address] [place] O2 THERAPY NC = Nasal Cannula Normal [facility] Comment on above: Order Comment: Speci men Type: BLOOD SPECIMEN Ordering Facility: [facility] Address: [address] [place] [address] Performed By: #### 5 7021-8 #### [facility] CLIA [id number] [address] [place] [address] [place] Oxygen (Bld) [Partial pressure] 80 mm Hg Low 85-95 [facility] Comment on above: Order Comment: Speci men Type: BLOOD SPECIMEN Ordering Facility: [facility] Address: [address] [place] [place] [id number] Performed By: #### 5 7021-8 #### [facility] CLIA [id number] [address] [place] [address] [place] Oxyhemoglobin (BldA) [Mass fraction] 95 % Normal 95-98 [facility] Comment on above: Order Comment: Speci men Type: BLOOD SPECIMEN Ordering Facility: [facility] Address: [address] [place] [address] Performed By: #### 5 7021-8 #### [facility] CLIA [id number] [address] [place] [address] [place] pH (Bld) 7.40 [pH] Normal 7.35-7.45 [facility] Comment on above: Order Comment: Speci men Type: BLOOD SPECIMEN Ordering Facility: [facility] Address: [address] [place] [address] Performed By: #### 5 7021-8 #### [facility] CLIA [id number] [address] [place] [address] [place] Potassium [Moles/Vol] 3.9 mmol/L Normal 2.5-6.0 [facility] Comment on above: Order Comment: Speci men Type: BLOOD SPECIMEN [facility]ing Facility: [facility] Address: [address] [facility] [facility] [place] [address] Performed By: #### 5 7021-8 #### [facility] CLIA [id number] [address] [place] [address] [place] Sodium [Moles/Vol] 136 mmol/L Normal 136-144 [facility] Comment on above: Order Comment: Speci men Type: BLOOD SPECIMEN Ordering Facility: [facility] Address: [address] [place] [address] Performed By: #### 5 7021-8 #### [facility] CLIA [id number] [address] [place] [address] [place] Bacteria Spec Resp [...] , Intermediate >1 , Resistant >2 Abnormal [facility] Comment on above: Performed By: #### S LACT #### [facility] CLIA [id number] [address] [place] [address] [place] Basic metabolic 2000 panelon 04-30-2023 Anion gap [Moles/Vol] 3 mmol/L Low 5-16 [facility] Comment on above: Order Comment: Speci men Type: BLOOD SPECIMENOrdering Facility: [facility] Address: [address] [place] [address] Performed By: #### 2 4321-2 ####[facility] [id number] [place] [address] [place] Calcium [Mass/Vol] 8.4 mg/dL Low 8.5-10.5 [facility] Comment on above: Order Comment: Speci men Type: BLOOD SPECIMENOrdering Facility: [facility] Address: [address] [place] [address] Performed By: #### 2 4321-2 ####[facility] [id number] [place] [address] [place] Chloride [Moles/Vol] 105 mmol/L Normal 98-107 [facility] Comment on above: Order Comment: Speci men Type: BLOOD SPECIMENOrdering Facility: [facility] Address: [address] [place] [address] Performed By: #### 2 4321-2 ####[facility] [id number] [place] [address] [place] CO2 [Moles/Vol] 30 mmol/L Normal 21-32 [facility] Comment on above: Order Comment: Speci men Type: BLOOD SPECIMENOrdering Facility: [facility] Address: [address] [place] [address] Performed By: #### 2 4321-2 ####[facility] [id number] [place] [address] [place] Creatinine [Mass/Vol] 1.05 mg/dL High 0.51-0.95 [facility] Comment on above: Order Comment: Speci men Type: BLOOD SPECIMENOrdering Facility: [facility] Address: [address] [place] [address] Result Comment: Yojana ents receiving either N-Acetylcysteine (NAC) or Metamizole prior to venipuncture, may have falsely depressed results. Performed By: #### 2 4321-2 ####[facility] [id number] [place] [address] [place] Creatinine and Glomerular filtration rate.predicted panel (S/P/Bld) 62 mL/min/1.73m??? Normal >=60 [facility] Comment on above: Order Comment: Specmaddie farris Type: BLOOD SPECIMENOrdering Facility: [facility] Address: [address] [place] [address] Result Comment: Aracely mated Glomerular Filtration Rate [...] actual GFR. Performed By: #### 2 4321-2 ####[facility] [id number] [place] [address] [place] Glucose [Mass/Vol] 116 mg/dL High 70-100 [facility] Comment on above: Order Comment: Merissa farris Type: BLOOD SPECIMENOrdering Facility: [facility] Address: [address] [place] [address] Result Comment: The [place] Diabetes Association (ADA) provides guidance for cutoff [...] Standards of Medical Care in Diabetes 2016, [place] [employer]. Diabetes Care. 2016.39(Suppl 1). Results may be falsely elevated after the administration of Sulfapyridine. Results may be falsely depressed after the administration of Sulfasalazine. Performed By: #### 2 4321-2 ####[facility] [id number] [place] [address] [place] Potassium [Moles/Vol] 4.6 mmol/L Normal 3.5-5.1 [facility] Comment on above: Order Comment: Speci men Type: BLOOD SPECIMENOrdering Facility: [facility] Address: [address] [place] [address] Performed By: #### 2 4321-2 ####[facility] [id number] [place] [address] [place] Sodium [Moles/Vol] 138 mmol/L Normal 136-145 [facility] Comment on above: Order Comment: Speci men Type: BLOOD SPECIMENOrdering Facility: [facility] Address: [address] [place] [address] Performed By: #### 2 4321-2 ####[facility] [id number] [place] [address] [place] Urea nitrogen [Mass/Vol] 13 mg/dL Normal 7-26 [facility] Comment on above: Order Comment: Speci men Type: BLOOD SPECIMENOrdering Facility: [facility] Address: [address] [place] [address] Performed By: #### 2 4321-2 ####[facility] [id number] [place] [address] [place] CBC W Auto Differential pane l (Bld)on 04-30-2023 Basophils (Bld) [#/Vol] 0.05 10*3/uL Normal <0.11 [facility] Comment on above: Order Comment: Speci men Type: BLOOD SPECIMENOrdering Facility: [facility] Address: [address] [place] [address] Performed By: #### 5 7021-8 ####[facility] [id number] [address] [place] Basophils/100 WBC (Bld) 0.3 % Normal [facility] Comment on above: Order Comment: Speci men Type: BLOOD SPECIMENOrdering Facility: [facility] Address: [address] [place] [address] Performed By: #### 5 7021-8 ####[facility] [id number] [place] [address] [place] Differential cell count method Nom (Bld) Auto Normal [facility] Comment on above: Order Comment: Speci men Type: BLOOD SPECIMENOrdering Facility: [facility] Address: [address] [place] [address] Performed By: #### 5 7021-8 ####[facility] [id number] [place] [address] [place] Eosinophils (Bld) [#/Vol] 0.24 10*3/uL Normal <0.46 [facility] Comment on above: Order Comment: Speci men Type: BLOOD SPECIMENOrdering Facility: [facility] Address: [address] [place] [address] Performed By: #### 5 7021-8 ####[facility] [id number] [place] [address] [place] Eosinophils/100 WBC (Bld) 1.5 % Normal [facility] Comment on above: Order Comment: Speci men Type: BLOOD SPECIMENOrdering Facility: [facility] Address: [address] [place] [address] Performed By: #### 5 7021-8 ####[facility] [id number] [address] [place] Erythrocyte distribution width (RBC) [Ratio] 14.1 % Normal 11.5-15.0 [facility] Comment on above: Order Comment: Speci men Type: BLOOD SPECIMENOrdering Facility: [facility] Address: [address] [place] [address] Performed By: #### 5 7021-8 ####[facility] [id number] [place] [address] [place] Hematocrit (Bld) [Volume fraction] 33.9 % Low 36.0-46.0 [facility] Comment on above: Order Comment: Speci men Type: BLOOD SPECIMENOrdering Facility: [facility]. [facility] Address: [address] [place] [address] Performed By: #### 5 7021-8 ####[facility]ORYCLIA [id number] [place] [id number] [place] Hemoglobin (Bld) [Mass/Vol] 10.7 g/dL Low 11.5-15.5 [facility] Comment on above: Order Comment: Speci men Type: BLOOD SPECIMENOrdering Facility: [facility] Address: [address] [place] [address] Performed By: #### 5 7021-8 ####[facility]ORYCLIA [id number] [place] [address] [place] Immature granulocytes (Bld) [#/Vol] 0.07 10*3/uL Normal <0.10 [facility] Comment on above: Order Comment: Speci men Type: BLOOD SPECIMENOrdering Facility: [facility] Address: [address] [place] [address] Performed By: #### 5 7021-8 ####[facility]ORYCLIA [id number] [place] [address] [place] Immature granulocytes/100 WBC (Bld) 0.4 % Normal [facility] Comment on above: Order Comment: Speci men Type: BLOOD SPECIMENOrdering Facility: [facility] Address: [address] [place] [address] Performed By: #### 5 7021-8 ####[facility]ORYCLIA [id number] [place] [address] [place] Lymphocytes (Bld) [#/Vol] 2.55 10*3/uL Normal 1.00-4.00 [facility] Comment on above: Order Comment: Speci men Type: BLOOD SPECIMENOrdering Facility: [facility] Address: [address] [place] [address] Performed By: #### 5 7021-8 ####[facility]ORYCLIA [id number] [place] [address] [place] Lymphocytes/100 WBC (Bld) 15.8 % Normal [facility] Comment on above: Order Comment: Speci men Type: BLOOD SPECIMENOrdering Facility: [facility] Address: [address] [place] [address] Performed By: #### 5 7021-8 ####[facility]ORYCLIA [id number] [address] [place] MCH (RBC) [Entitic mass] 28.2 pg Normal 26.0-34.0 [facility] Comment on above: Order Comment: Speci men Type: BLOOD SPECIMENOrdering Facility: [facility] Address: [address] [place] [address] Performed By: #### 5 7021-8 ####[facility]ORYCLIA [id number] [address] [place] MCHC (RBC) [Mass/Vol] 31.6 g/dL Normal 30.5-36.0 [facility] Comment on above: Order Comment: Speci men Type: BLOOD SPECIMENOrdering Facility: [facility] Address: [address] [place] [address] Performed By: #### 5 7021-8 ####[facility]ORYCLIA [id number] [place] [address] [place] MCV (RBC) [Entitic vol] 89.2 fL Normal 80.0-100.0 [facility] Comment on above: Order Comment: Speci men Type: BLOOD SPECIMENOrdering Facility: [facility] Address: [address] [place] [address] Performed By: #### 5 7021-8 ####[facility]ORYCLIA [id number] [place] [address] [place] Monocytes (Bld) [#/Vol] 1.15 10*3/uL High <0.87 [facility] Comment on above: Order Comment: Speci men Type: BLOOD SPECIMENOrdering Facility: [facility] Address: [address] [place] [address] Performed By: #### 5 7021-8 ####[facility]ORYCLIA [id number] [place] [address] [place] Monocytes/100 WBC (Bld) 7.1 % Normal [facility] Comment on above: Order Comment: Speci men Type: BLOOD SPECIMENOrdering Facility: [facility] Address: [address] [place] [address] Performed By: #### 5 7021-8 ####[facility]ORYCLIA [id number] [place] [address] [place] Neutrophils (Bld) [#/Vol] 12.03 10*3/uL High 1.45-7.50 [facility] Comment on above: Order Comment: Speci men Type: BLOOD SPECIMENOrdering Facility: [facility] Address: [address] [place] [address] Performed By: #### 5 7021-8 ####[facility]ORYCLIA [id number] [place] [address] [place] Neutrophils/100 WBC (Bld) 74.9 % Normal [facility] Comment on above: Order Comment: Speci men Type: BLOOD SPECIMENOrdering Facility: [facility] Address: [address] [place] [address] Performed By: #### 5 7021-8 ####[facility]ORYCLIA [id number] [place] [address] [place] Nucleated RBC (Bld) [#/Vol] 10*3/uL Normal <0.01 [facility] Comment on above: Order Comment: Speci men Type: BLOOD SPECIMENOrdering Facility: [facility] Address: [address] [place] [address] Performed By: #### 5 7021-8 ####[facility]ORYCLIA [id number] [place] [address] [place] Nucleated RBC/100 WBC (Bld) [Ratio] 0.0 /100 WBC Normal [facility] Comment on above: Order Comment: Speci men Type: BLOOD SPECIMENOrdering Facility: [facility] Address: [address] [place] [address] Performed By: #### 5 7021-8 ####[facility]ORYCLIA [id number] [address] [place] Platelet mean volume (Bld) [Entitic vol] 9.2 fL Normal 9.0-12.7 [facility] Comment on above: Order Comment: Speci men Type: BLOOD SPECIMENOrdering Facility: [facility] Address: [address] [place] [address] Performed By: #### 5 7021-8 ####[facility]ORYCLIA [id number] [place] [address] [facility] [place] Platelets (Bld) [#/Vol] 371 10*3/uL Normal 150-400 [facility] Comment on above: Order Comment: Speci men Type: BLOOD SPECIMENOrdering Facility: [facility] Address: [address] [place] [address] Performed By: #### 5 7021-8 ####[facility]ORYCLIA [id number] [address] [place] RBC (Bld) [#/Vol] 3.80 10*6/uL Low 3.90-5.20 [facility] Comment on above: Order Comment: Speci men Type: BLOOD SPECIMENOrdering Facility: [facility] Address: [address] [place] [address] Performed By: #### 5 7021-8 ####[facility]ORYCLIA [id number] [place] [address] [place] WBC (Bld) [#/Vol] 16.09 10*3/uL High 3.70-11.00 [facility] Comment on above: Order Comment: Speci men Type: BLOOD SPECIMENOrdering Facility: [facility] Address: [address] [place] [address] Performed By: #### 5 7021-8 ####[facility]ORYCLIA [id number] [place] [address] [facility] [place] ECG COMPLETEon 04-30-2023 ECG COMPLETE Ventricular Rate : 8 3 BPM Atrial Rate : 83 BPM P-R Interval : 154 ms QRS Duration : 98 ms Q-T Interval : 414 ms QTC Calculation(Bazett) : 486 ms Calculated P Happy : 67 degrees Calculated R Happy : 44 degrees Calculated T Happy : 56 degrees Normal sinus rhythm Prolonged QT Abnormal ECG When compared with ECG of 29-APR-2023 08:33, No significant change was found Confirmed by AI PUENTE MD ([id number]) on 04/30/2023 9:19:15 PM NAME : SAVANNAH IRVIN PID : [id number] : 1965 Gender : Female Race : ORD : [id number] Procedure Date : Apr 30 2023 09:52:40 Edit Date : Apr 30 2023 21:19:17 Diagnosis: Normal sinus rhythm Prolonged QT Abnormal ECG When compared with ECG of 29-APR-2023 08:33, No significant change was found Confirmed by AI PUENTE MD ([id number]) on 04/30/2023 9:19:15 PM Test Reason : RT Location : 8 : [facility] Overread By : AI PUENTE MD Edited By : AI PUENTE MD Referred By : , Acquired by : BEN SUNSHINE [facility] NUTRITIONon 04-30-2023 NUTRITION HNO ID: [id number] Author: Martina Carlin RD Service: Nutrition Therapy [...] Estimated kilocalorie needs: 1600 Calorie Calculation Method: [facility]-St. Jeor (with activity factor) Estimated protein needs [...] April 30, 2023 TIME: 12:42 PM Normal [facility] THERAPY NTon 04-30-2023 THERAPY NT HNO ID: [id number] Author: Destiny Cardoza, [facility] Service: Speech/Swallow Author Type: Speech Language Pathologist Type: Therapy (PT/OT/Speech/Resp) Filed: 04/30/2023 3:42 PM Note Text: Speech Therapy MBSS Evaluation SERVICE DATE: 04/30/2023 SERVICE TIME: 1045 to 1104 ROOM: [place] [address] IMPRESSION: Diet Recommendations: Regular Consistency, Thin Liquids [...] Need Interventions Provided: Modified Barium Swallow Study (16424) $ Modified Barium Swallow Study (45598) Billed Units: 1 unit Skilled Treatment Time (minutes): 19 Home Environment Prior Swallowing Function/Diet Textures: Regular Consistency, Thin Liquids IDDSI Level 0 Please see discipline specific clinical documentation flowsheet for complete details for this therapy evaluation/treatment. SIGNATURE: Destiny Cardoza CCC-[facility] PATIENT NAME: Savannah Irvin DATE: April 30, 2023 TIME: 3:42 PM Normal [facility] TOX SCREEN ROUT URon -13-2 023 Amphetamines Confirm (U) [Mass/Vol] Positive Abnormal Negative [facility] Comment on above: Order Comment: Speci men Type: BLOOD SPECIMEN [facility] Address: [address] [place] [address] Result Comment: Cuto ff threshold at 1000 ng/mL. Performed By: #### 5 7021-8 #### [facility] CLIA [id number] [address] [place] [address] BARBITURATES, URINE Negative Normal Negative [facility] Comment on above: Order Comment: Speci men Type: BLOOD SPECIMEN [facility] Address: [address] [place] [address] Result Comment: Cuto ff threshold at 200 ng/mL. Performed By: #### 5 7021-8 #### [facility] CLIA [id number] [address] [place] [address] [place] BENZODIAZEPINES, UR Negative Normal Negative [facility] Comment on above: Order Comment: Speci men Type: BLOOD SPECIMEN [facility] Address: [address] [place] [address] Result Comment: Cuto ff threshold at 200 ng/mL. Performed By: #### 5 7021-8 #### [facility] CLIA [id number] [address] [place] [address] [place] Cannabinoids Screen Ql (U) Positive Abnormal Negative [facility] Comment on above: Order Comment: Speci men Type: BLOOD SPECIMEN [facility] Address: [address] [place] [address] Result Comment: Cuto ff threshold at 50 ng/mL. Performed By: #### 5 7021-8 #### [facility] CLIA [id number] [address] [place] [address] [place] Cocaine Ql (U) Negative Normal Negative [facility] Comment on above: Order Comment: Speci men Type: BLOOD SPECIMEN [facility] Address: [address] [place] [address] Result Comment: Cuto ff threshold at 300 ng/mL. Performed By: #### 5 7021-8 #### [facility] CLIA [id number] [address] [place] [address] [place] Opiates Screen Ql (U) Positive Abnormal Negative [facility] Comment on above: Order Comment: Speci men Type: BLOOD SPECIMEN [facility] Address: [address] [place] [address] Result Comment: Cuto ff threshold at 300 ng/mL. Performed By: #### 5 7021-8 #### [facility] CLIA [id number] [address] [place] [place] [address] [place] Phencyclidine Ql (U) Negative Normal Negative [facility] Comment on above: Order Comment: Speci men Type: BLOOD SPECIMEN [facility] Address: [address] [place] [address] Result Comment: Cuto ff threshold at 25 ng/mL. Performed By: #### 5 7021-8 #### [facility] CLIA [id number] [address] [place] [address] [place] Urinalysis complete pnl Uron 04-30-2023 [...] URINE: <10,000 CFU/ml Normal Urogenital Sujata Abnormal [facility] Comment on above: Order Comment: Speci men Type: BLOOD SPECIMEN [facility] Address: [address] [place] [address] Performed By: #### 5 7021-8 #### [facility] CLIA [id number] [address] [place] [address] [place] XR MOD BARIUM SWALLOW [...] Please see complete report by speech therapy. Plumbing Technician: PSCB Transcribe Date/Time: Apr 30 2023 12:49P Dictated by : KOBE GUERRA MD This examination was interpreted and the report reviewed and electronically signed by: KOBE GUERRA MD on Apr 30 2023 12:50PM EST [id number] [facility] ALLIED HEALTHon 04-29-2023 [facility] HNO ID: [id number] Author: Velma Asif RT(R) Service: Radiology Author Type: Technologist Type: Independent Space [facility] Filed: 04/29/2023 9:05 AM Note Text: [...] IV DATA: Not applicable SIGNED BY: Velma sAif RT(R) April 29, 2023 9:05 AM [facility] Bacteria Bld Culton 04-29-20 Bacteria identified Cx Nom (Bld) CULTURE, BLOOD: No growth 5 days Normal [facility] Comment on above: Performed By: #### S LACT #### [facility] CLIA [id number] [address] [place] [address] Bacteria identified Cx Nom (Bld) CULTURE, BLOOD: No growth 5 days [facility] Comment on above: Performed By: #### S LACT #### [facility] CLIA [id number] [address] [place] [address] [place] CBC W Auto Differential pane l (Bld)on 04-29-2023 Basophils (Bld) [#/Vol] 0.09 10*3/uL Normal <0.11 [facility] Comment on above: Order Comment: Speci men Type: BLOOD SPECIMEN [facility] Address: [address] [place] [address] Performed By: #### 5 7021-8 #### [facility] CLIA [id number] [address] [place] [address] [place] Basophils/100 WBC (Bld) 0.4 % Normal [facility] Comment on above: Order Comment: Speci men Type: BLOOD SPECIMEN [facility] Address: [address] [place] [address] Performed By: #### 5 7021-8 #### [facility] CLIA [id number] [address] [place] [address] [place] [facility] Differential cell count method Nom (Bld) Auto [facility] Comment on above: Order Comment: Speci men Type: BLOOD SPECIMEN [facility] Facility[facility] Address: [address] [place] [address] Performed By: #### 5 7021-8 #### [facility] CLIA [id number] [address] [place] [address] [place] Eosinophils (Bld) [#/Vol] 0.08 10*3/uL Normal <0.46 [facility] Comment on above: Order Comment: Speci men Type: BLOOD SPECIMEN [facility] Address: [address] [place] [address] Performed By: #### 5 7021-8 #### [facility] CLIA [id number] [address] [place] [address] [place] Eosinophils/100 WBC (Bld) 0.3 % Normal [facility] Comment on above: Order Comment: Speci men Type: BLOOD SPECIMEN [facility] Address: [address] [place] [address] Performed By: #### 5 7021-8 #### [facility] CLIA [id number] [address] [place] [address] [place] Erythrocyte distribution width (RBC) [Ratio] 14.3 % Normal 11.5-15.0 [facility] Comment on above: Order Comment: Speci men Type: BLOOD SPECIMEN [facility] Address: [address] [place] [address] Performed By: #### 5 7021-8 #### [facility] CLIA [id number] [address] [place] [address] [place] Hematocrit (Bld) [Volume fraction] 41.7 % Normal 36.0-46.0 [facility] Comment on above: Order Comment: Speci men Type: BLOOD SPECIMEN [facility]: [facility] Address: [address] [place] [address] Performed By: #### 5 7021-8 #### [facility] CLIA [id number] [address] [place] [address] [place] Hemoglobin (Bld) [Mass/Vol] 13.3 g/dL Normal 11.5-15.5 [facility] Comment on above: Order Comment: Speci men Type: BLOOD SPECIMEN [facility]: [facility] Address: [address] [place] [address] Performed By: #### 5 7021-8 #### [facility] CLIA [id number] [address] [place] [address] [place] Immature granulocytes (Bld) [#/Vol] 0.13 10*3/uL High <0.10 [facility] Comment on above: Order Comment: Speci men Type: BLOOD SPECIMEN [facility]: [facility] Address: [address] [place] [address] Performed By: #### 5 7021-8 #### [facility] CLIA [id number] [address] [place] [address] [place] Immature granulocytes/100 WBC (Bld) 0.5 % Normal [facility] Comment on above: Order Comment: Speci men Type: BLOOD SPECIMEN [facility] Facility[facility] Address: [address] [place] [address] Performed By: #### 5 7021-8 #### [facility] CLIA [id number] [address] [place] [address] [place] Lymphocytes (Bld) [#/Vol] 1.61 10*3/uL Normal 1.00-4.00 [facility] Comment on above: Order Comment: Speci men Type: BLOOD SPECIMEN [facility] Facility: [facility] Address: [address] [place] [address] Performed By: #### 5 7021-8 #### [facility] CLIA [id number] [address] [place] [address] [place] Lymphocytes/100 WBC (Bld) 6.5 % Normal [facility] Comment on above: Order Comment: Speci men Type: BLOOD SPECIMEN [facility] Address: [address] [place] [address] Performed By: #### 5 7021-8 #### [facility] CLIA [id number] [address] [place] [address] [place] MCH (RBC) [Entitic mass] 27.5 pg Normal 26.0-34.0 [facility] Comment on above: Order Comment: Speci men Type: BLOOD SPECIMEN [facility] Address: [address] [place] [address] Performed By: #### 5 7021-8 #### [facility] CLIA [id number] [address] [place] [address] [place] MCHC (RBC) [Mass/Vol] 31.9 g/dL Normal 30.5-36.0 [facility] Comment on above: Order Comment: Speci men Type: BLOOD SPECIMEN [facility] Facility: [facility] Address: [address] [place] [address] Performed By: #### 5 7021-8 #### [facility] CLIA [id number] [address] [place] [address] [place] MCV (RBC) [Entitic vol] 86.3 fL Normal 80.0-100.0 [facility] Comment on above: Order Comment: Speci men Type: BLOOD SPECIMEN [facility]: [facility] Address: [address] [place] [address] Performed By: #### 5 7021-8 #### [facility] CLIA [id number] [address] [place] [place] [address] [place] Monocytes (Bld) [#/Vol] 1.51 10*3/uL High <0.87 [facility] Comment on above: Order Comment: Speci men Type: BLOOD SPECIMEN [facility] Facility: [facility] Address: [address] [place] [address] Performed By: #### 5 7021-8 #### [facility] CLIA [id number] [address] [place] [address] [place] Monocytes/100 WBC (Bld) 6.1 % Normal [facility] Comment on above: Order Comment: Speci men Type: BLOOD SPECIMEN [facility] Facility: [facility] Address: [address] [place] [address] Performed By: #### 5 7021-8 #### [facility] CLIA [id number] [address] [place] [address] [place] Neutrophils (Bld) [#/Vol] 21.44 10*3/uL High 1.45-7.50 [facility] Comment on above: Order Comment: Speci men Type: BLOOD SPECIMEN [facility] Facility: [facility] Address: [address] [place] [address] Performed By: #### 5 7021-8 #### [facility] CLIA [id number] [address] [place] [address] [place] Neutrophils/100 WBC (Bld) 86.2 % Normal [facility] Comment on above: Order Comment: Speci men Type: BLOOD SPECIMEN [facility] Facility[facility] Address: [address] [place] [address] Performed By: #### 5 7021-8 #### [facility] CLIA [id number] [address] [place] [address] [place] Nucleated RBC (Bld) [#/Vol] 10*3/uL Normal <0.01 [facility] Comment on above: Order Comment: Speci men Type: BLOOD SPECIMEN [facility] Facility: [facility] Address: [address] [place] [address] Performed By: #### 5 7021-8 #### [facility] CLIA [id number] [address] [place] [address] [place] Nucleated RBC/100 WBC (Bld) [Ratio] 0.0 /100 WBC Normal [facility] Comment on above: Order Comment: Speci men Type: BLOOD SPECIMEN [facility] Facility: [facility] Address: [address] [place] [address] Performed By: #### 5 7021-8 #### [facility] CLIA [id number] [address] [place] [address] [place] Platelet mean volume (Bld) [Entitic vol] 9.2 fL Normal 9.0-12.7 [facility] Comment on above: Order Comment: Speci men Type: BLOOD SPECIMEN [facility] Facility: [facility] Address: [address] [place] [id number] Performed By: #### 5 7021-8 #### [facility] CLIA [id number] [address] [place] [address] [place] Platelets (Bld) [#/Vol] 457 10*3/uL High 150-400 [facility] Comment on above: Order Comment: Speci men Type: BLOOD SPECIMEN [facility] Facility: [facility] Address: [address] [place] [address] Performed By: #### 5 7021-8 #### [facility] CLIA [id number] [address] [place] [address] [place] RBC (Bld) [#/Vol] 4.83 10*6/uL Normal 3.90-5.20 [facility] Comment on above: Order Comment: Speci men Type: BLOOD SPECIMEN [facility] Facility: [facility] Address: [address] [place] [address] Performed By: #### 5 7021-8 #### [facility] CLIA [id number] [address] [place] [address] [place] WBC (Bld) [#/Vol] 24.86 10*3/uL High 3.70-11.00 [facility] Comment on above: Order Comment: Speci men Type: BLOOD SPECIMEN [facility] Facility: [facility] Address: [address] [place] [address] Performed By: #### 5 7021-8 #### [facility] CLIA [id number] [address] [place] [address] OF [facility] [address] FLANK WO IVCONon 04-29-[address] FLANK WO IVCON * * *Final Report* * * DATE OF EXAM: Apr 29 2023 10:10AM [facility] 0529 - CT FLANK WO IVCON / [...] Trace left pleural effusion with associated atelectasis. Interline Clerk (topogram) images: No additional findings. IMPRESSION: Nonobstructive 4 mm calculus within the left mid renal pole. No hydronephrosis. Consolidative airspace opacity within the left lower lobe concerning for pneumonia. Trace left pleural effusion likely reactive. Follow-up to resolution. Dictated by Hook And Eye Machine Operator: Ishmael Beaver DO I, Muhammad Alkaphoury, MD, have supervised the procedure and/or image review, and agree with the above interpretation and report. Plumbing Technician: YAZMIN Transcribe Date/Time: Apr 29 2023 10:13A Dictated by : ISHMAEL BEAVER DO This examination was interpreted and the report reviewed and electronically signed by: JF LEWIS MD on Apr 29 2023 10:29AM EST [id number] Normal [facility] Comprehensive metabolic 2000 panelon 04-29-2023 Albumin [Mass/Vol] 3.4 g/dL Normal 3.2-5.0 [facility] Comment on above: Order Comment: Speci men Type: BLOOD SPECIMEN [facility] Facility: [facility] Address: [address] [place] [address] Performed By: #### 2 4323-8 #### [facility] CLIA [id number] [address] [place] [address] [place] ALP [Catalytic activity/Vol] 151 U/L High 45-117 [facility] Comment on above: Order Comment: Speci men Type: BLOOD SPECIMEN [facility] Facility: [facility] Address: [address] [place] [address] Performed By: #### 2 4323-8 #### [facility] CLIA [id number] [address] [place] [address] [place] ALT [Catalytic activity/Vol] 16 U/L Normal 13-61 [facility] Comment on above: Order Comment: Speci men Type: BLOOD SPECIMEN [facility] Facility: [facility] Address: [address] [place] [address] Result Comment: Resu lts may be falsely depressed after the administration of Sulfasalazine and/or Sulfapyridine. Performed By: #### 2 4323-8 #### [facility] CLIA [id number] [address] [place] [address] [place] Anion gap [Moles/Vol] 6 mmol/L Normal 5-16 [facility] Comment on above: Order Comment: Speci men Type: BLOOD SPECIMEN Ordering Facility: [facility] Address: [address] [place] [address] Performed By: #### 2 4323-8 #### [facility] CLIA [id number] [address] [place] [address] [place] AST [Catalytic activity/Vol] 27 U/L Normal 8-34 [facility] Comment on above: Order Comment: Speci men Type: BLOOD SPECIMEN Ordering Facility: [facility] Address: [address] [place] [address] Result Comment: Resu lts may be falsely depressed after the administration of Sulfasalazine and/or Sulfapyridine. Performed By: #### 2 4323-8 #### [facility] CLIA [id number] [address] [place] [address] [place] Bilirubin [Mass/Vol] 0.4 mg/dL Normal 0.2-1.0 [facility] Comment on above: Order Comment: Speci men Type: BLOOD SPECIMEN Ordering Facility: [facility] Address: [address] [place] [address] Performed By: #### 2 4323-8 #### [facility] CLIA [id number] [address] [place] [address] [place] Calcium [Mass/Vol] 9.2 mg/dL Normal 8.5-10.5 [facility] Comment on above: Order Comment: Speci men Type: BLOOD SPECIMEN Ordering Facility: [facility] Address: [address] [place] [address] Performed By: #### 2 4323-8 #### [facility] CLIA [id number] [address] [place] [address] [place] Chloride [Moles/Vol] 103 mmol/L Normal 98-107 [facility] Comment on above: Order Comment: Speci men Type: BLOOD SPECIMEN Ordering Facility: [facility] Address: [address] [place] [address] Performed By: #### 2 4323-8 #### [facility] CLIA [id number] [address] [place] [address] [place] CO2 [Moles/Vol] 29 mmol/L Normal 21-32 [facility] Comment on above: Order Comment: Speci men Type: BLOOD SPECIMEN Ordering Facility: [facility] Address: [address] [place] [address] Performed By: #### 2 4323-8 #### [facility] CLIA [id number] [address] [place] [address] [place] Creatinine [Mass/Vol] 0.86 mg/dL Normal 0.51-0.95 [facility] Comment on above: Order Comment: Merissa farris Type: BLOOD SPECIMEN Ordering Facility: [facility] Address: [address] [place] [address] Result Comment: Yojana ents receiving either N-Acetylcysteine (NAC) or Metamizole prior to venipuncture, may have falsely depressed results. Performed By: #### 2 4323-8 #### [facility] CLIA [id number] [address] [place] [address] [place] Creatinine and Glomerular filtration rate.predicted panel (S/P/Bld) 79 mL/min/1.73m??? Normal >=60 [facility] Comment on above: Order Comment: Merissa farris Type: BLOOD SPECIMEN Ordering Facility: [facility] Address: [address] [place] [address] Result Comment: Aracely mated Glomerular Filtration Rate [...] GFR. Performed By: #### 2 4323-8 #### [facility] CLIA [id number] [address] [place] [address] [place] Glucose [Mass/Vol] 113 mg/dL High 70-100 [facility] Comment on above: Order Comment: Merissa farris Type: BLOOD SPECIMEN Ordering Facility: [facility] Address: [address] [place] [address] Result Comment: The [place] Diabetes Association (ADA) provides guidance for cutoff [...] Standards of Medical Care in Diabetes 2016, [place] Diabetes Association. Diabetes Care. 2016.39(Suppl 1). Results may be falsely elevated after the administration of Sulfapyridine. Results may be falsely depressed after the administration of Sulfasalazine. Performed By: #### 2 4323-8 #### [facility] CLIA [id number] [address] [place] [address] [place] Potassium [Moles/Vol] 4.2 mmol/L Normal 3.5-5.1 [facility] Comment on above: Order Comment: Speci men Type: BLOOD SPECIMEN Ordering Facility: [facility] Address: [address] [place] [address] Performed By: #### 2 4323-8 #### [facility] CLIA [id number] [address] [place] [address] [place] Protein [Mass/Vol] 6.9 g/dL Normal 6.0-8.5 [facility] Comment on above: Order Comment: Speci men Type: BLOOD SPECIMEN Ordering Facility: [facility] Address: [address] [place] [address] Performed By: #### 2 4323-8 #### [facility] CLIA [id number] [address] [place] [address] [place] Sodium [Moles/Vol] 138 mmol/L Normal 136-145 [facility] Comment on above: Order Comment: Speci men Type: BLOOD SPECIMEN Ordering Facility: [facility] Address: [address] [place] [address] Performed By: #### 2 4323-8 #### [facility] CLIA [id number] [address] [place] [address] [place] Urea nitrogen [Mass/Vol] 12 mg/dL Normal 7-26 [facility] Comment on above: Order Comment: Laurai men Type: BLOOD SPECIMEN Ordering Facility: [facility] Address: [address] [place] [address] Performed By: #### 2 4323-8 #### [facility] CLIA [id number] [address] [place] D dimer FEU PPP-mCncon 04-29 Fibrin D-dimer FEU (PPP) [Mass/Vol] 430 ng/mL FEU Normal <500 [facility] Comment on above: Order Comment: Speci men Type: BLOOD SPECIMENOrdering Facility: [facility] Address: [address] [place] [address] Performed By: #### 4 8065-7 ####[facility] [id number] [place] [id number] [place] ECG COMPLETEon 04-29-2023 ECG COMPLETE Ventricular Rate : 1 07 BPM Atrial Rate : 107 BPM P-R Interval : 146 ms QRS Duration : 88 ms Q-T Interval : 338 ms QTC Calculation(Bazett) : 451 ms Calculated P Happy : 50 degrees Calculated R Happy : 36 degrees Calculated T Happy : 29 degrees Sinus tachycardia Otherwise normal ECG When compared with ECG of 26-APR-2021 15:56, T wave amplitude has increased in Lateral leads Confirmed by TISH GOMEZ MD ([id number]) on 04/29/2023 8:51:06 PM NAME : SAVANNAH IRVIN PID : [id number] : 1965 Gender : Female Race : ORD : [id number] Procedure Date : Apr 29 2023 08:33:22 Edit Date : Apr 29 2023 20:51:06 Diagnosis: Sinus tachycardia Otherwise normal ECG When compared with ECG of 26-APR-2021 15:56, T wave amplitude has increased in Lateral leads Confirmed by TISH GOMEZ MD ([id number]) on 04/29/2023 8:51:06 PM Test Reason : STAT Location : 0 : ED 33 Overread By : TISH GOMEZ MD Edited By : TISH GOMEZ MD Referred By : , Acquired by : OB, [facility] ED NOTEon 04-29-2023 ED NOTE HNO ID: [id number] Author: Tesfaye Reid RN Service: ? Author Type: Registered Nurse Type: ED Notes Filed: 04/29/2023 1:39 PM Note Text: Report called to Coty GARCIA in 7M [facility] ED NOTE HNO ID: [id number] Author: Tesfaye Reid, RN Service: ? Author Type: Registered Nurse Type: ED Notes Filed: 04/29/2023 11:13 AM Note Text: Pt placed on 2L NC at this time due to O2 saturations dropping to 89% while sleeping. Dr Solorzano aware Normal [facility] ED PROV NOTEon 04-29-2023 ED PROV NOTE HNO ID: [id number] Author: Jace Solorzano MD Service: ? Author [...] her kidneys. History provided by: Patient interpreter for the deaf used: No Savannah Irvin is a 57 [...] All Nuts [Other] Anaphylaxis Argan Nut Anaphylaxis Spencer Nut Anaphylaxis Cashew Nut Anaphylaxis Hazelnut Anaphylaxis Macadamia Nut Oil Anaphylaxis Peanuts Anaphylaxis Pecan Nut Anaphylaxis Trimble Nut Anaphylaxis Pistachio Nut Anaphylaxis Tree Nut [...] warm and (more content not included)... Normal [facility] FLUABV+SARS-CoV-2+RSV Pnl Re sp SONG+probeon 04-29-2023 FLUABV+SARS-CoV-2+RSV Pnl Resp SONG+probe COVID 19 RESULT: Not detected The method used is RT-PCR or an equivalent NAAT method. Reference Range(the expected result in uninfected individuals): Not detected INFLUENZA A PCR: Not detected INFLUENZA B PCR: Not detected RSV PCR: Not detected Normal [facility] Comment on above: Performed By: #### 9 5941-1 #### [facility] CLIA [id number] [address] [place] [address] [place] Fibrin D-dimer FEU (PPP) [Ma ss/Vol]on 04-29-2023 D DIMER AGE-RELATED CUTOFF 560 ng/mL FEU Normal [facility] Comment on above: Order Comment: Speci men Type: BLOOD SPECIMENOrdering Facility: [facility] Address: [address] [place] [address] Performed By: #### 4 8065-7 ####[facility] [id number] [place] [address] [place] HIGH SENSITIVITY TROPONIN Io n 04-29-2023 Tropinin I.cardiac panel High sensitivity method 8.6 pg/mL Normal 0.0-34.0 [facility] Comment on above: Order Comment: Speci men Type: BLOOD SPECIMEN Ordering Facility: [facility] Address: [address], [place] [address] Result Comment: This assay uses different antibodies than our current assay, and assays, even by the same dry end tester may recognize different regions of the antibody and cannot be used interchangeably. Expect results of this assay to run higher than the previous assay. Performed By: #### H STROP #### [facility] CLIA [id number] [address] [place] [address] [place] HISTORY PHYSICALon HISTORY PHYSICAL HNO ID: [id number] Author: Ortiz Stroud MD Service: Hospital Medicine [...] Head: Normocephalic (more content not included)... Normal [facility] Legionella Ag Ur Qlon 2022 Legionella sp Ag Ql (U) Negative Normal Negative [facility] Comment on above: Order Comment: Speci men Type: URINE SPECIMENOrdering Facility: [facility] Address: [address] [place] [address] Performed By: #### 3 2781-7 ####[facility] [id number] [place] [address] [place] SEPSIS LACTATEon 04-29-2023 Lactate [Moles/Vol] 1.1 mmol/L Normal 0.4-2.0 [facility] Comment on above: Order Comment: Speci men Type: BLOOD SPECIMEN Ordering Facility: [facility] Address: [address] [place] [address] Performed By: #### S LACT #### [facility] CLIA [id number] [address] [place] [address] [place] STREPTOCOCCUS PNEUMONIAE AGo n 04-29-2023 STREPTOCOCCUS PNEUMONIAE AG STREP PNEUMO AG RESULT: Positive for Streptococcus pneumoniae antigen. Abnormal [facility] Comment on above: Performed By: #### S PNAG ####[facility] [id number] [place] [id number] [place] XR CHEST 1V [...] be atelectatic or infectious. Radiographic follow-up recommended. Plumbing Technician: PSCB Transcribe Date/Time: Apr 29 2023 9:07A Dictated by : JF LEWIS MD This examination was interpreted and the report reviewed and electronically signed by: JF LEIWS MD on Apr 29 2023 9:09AM EST [id number] Normal [facility] .Auto Diffon 02-22-2023 Basophil, Absolute 0.1 10 3/mcL Normal 0.0-0.2 [facility] ([place]) Comment on above: Performed By: #### G FR, DIMER, ANEU, PRO, APTT, MDW, ADIFF, BMP, CBC, TROPHS #### [place] [place] [address] [place], [place] [address] Basophils/100 WBC (Bld) 1.1 % Normal 0.0-2.5 A [facility] ([place]) Comment on above: Performed By: #### G FR, DIMER, ANEU, PRO, APTT, MDW, ADIFF, BMP, CBC, TROPHS #### [address] [address] Eosinophil, Absolute 0.3 10 3/mcL Normal 0.0-0.4 [facility] ([place]) Comment on above: Performed By: #### G FR, DIMER, ANEU, PRO, APTT, MDW, ADIFF, BMP, CBC, TROPHS #### [address] [address] Eosinophils/100 WBC (Bld) 2.5 % Normal 0.0-7.0 [facility] ([place]) Comment on above: Performed By: #### G FR, DIMER, ANEU, PRO, APTT, MDW, ADIFF, BMP, CBC, TROPHS #### [address] [address] Lymphocyte, Absolute 2.6 10 3/mcL Normal 0.8-3.9 [facility] ([place]) Comment on above: Performed By: #### G FR, DIMER, ANEU, PRO, APTT, MDW, ADIFF, BMP, CBC, TROPHS #### [address] [address] Lymphocytes/100 WBC (Bld) 25.4 % Normal 10.0-50.0 [facility] ([place]) Comment on above: Performed By: #### G FR, DIMER, ANEU, PRO, APTT, MDW, ADIFF, BMP, CBC, TROPHS #### [address] [address] Monocyte, Absolute 1.0 10 3/mcL Normal 0.2-1.0 [facility] ([place]) Comment on above: Performed By: #### G FR, DIMER, ANEU, PRO, APTT, MDW, ADIFF, BMP, CBC, TROPHS #### [address] [address] Monocytes/100 WBC (Bld) 9.7 % Normal 1.7-13.0 [facility] ([place]) Comment on above: Performed By: #### G FR, DIMER, ANEU, PRO, APTT, MDW, ADIFF, BMP, CBC, TROPHS #### [address] [address] Neutrophils/100 WBC (Bld) 61.3 % Normal 37.0-80.0 [facility] ([place]) Comment on above: Performed By: #### G FR, DIMER, ANEU, PRO, APTT, MDW, ADIFF, BMP, CBC, TROPHS #### [address] [address] .GFRon 02-22-2023 GFR Non- 73 ml/min/1.73sqm Normal [facility] ([place]) Comment on above: Result Comment: GFR Population [...] APTT, MDW, ADIFF, BMP, CBC, TROPHS #### [address] [address] GFR 89 ml/min/1.73sqm Normal [facility] ([place]) Comment on above: Result Comment: GFR Population [...] APTT, MDW, ADIFF, BMP, CBC, TROPHS #### [address] [address] .MDWon 02-22-2023 Monocyte Distribution Width 16.50 Normal 0.00-20.00 [facility] ([place]) Comment on above: Result Comment: For ED adult patients suspected of sepsis, MDW<=20.0 does not rule out sepsis or risk of sepsis Performed By: #### G FR, DIMER, ANEU, PRO, APTT, MDW, ADIFF, BMP, CBC, TROPHS #### [address] [address] .NEUABSon 02-22-2023 Neutrophil, Absolute 6.4 10 3/mcL High 2.9-6.2 [facility] ([place]) Comment on above: Performed By: #### G FR, DIMER, ANEU, PRO, APTT, MDW, ADIFF, BMP, CBC, TROPHS #### [address] [address] APTTon 02-22-2023 aPTT Coag (Bld) [Time] 35.4 s High 25.0-35.0 [facility] ([place]) Comment on above: Result Comment: For Heparin anticoagulation therapy, the recommended therapeutic range is: 50.6-87.4 seconds. Patients on heparin therapy may have an extreme result. Performed By: #### G FR, DIMER, ANEU, PRO, APTT, MDW, ADIFF, BMP, CBC, TROPHS ####[address] [address] Heparin dose (APTT) Unknown Normal [facility] ([place]) Comment on above: Performed By: #### G FR, DIMER, ANEU, PRO, APTT, MDW, ADIFF, BMP, CBC, TROPHS ####[place] [address] [place], [place] [address] BMPon 02-22-2023 BUN/Creatinine Ratio 15 ratio Normal 7-27 [facility] ([place]) Comment on above: Performed By: #### G FR, DIMER, ANEU, PRO, APTT, MDW, ADIFF, BMP, CBC, TROPHS #### [address] [address] Calcium [Mass/Vol] 9.1 mg/dL Normal 8.4-10.2 [facility] ([place]) Comment on above: Performed By: #### G FR, DIMER, ANEU, PRO, APTT, MDW, ADIFF, BMP, CBC, TROPHS #### [address] [address] Chloride [Moles/Vol] 103 mmol/L Normal 98-107 [facility] ([place]) Comment on above: Performed By: #### G FR, DIMER, ANEU, PRO, APTT, MDW, ADIFF, BMP, CBC, TROPHS #### [address] [address] CO2 [Moles/Vol] 35 mmol/L High 22-29 [facility] ([place]) Comment on above: Performed By: #### G FR, DIMER, ANEU, PRO, APTT, MDW, ADIFF, BMP, CBC, TROPHS #### [address] [address] Creatinine [Mass/Vol] 0.81 mg/dL Normal 0.55-1.02 [facility] ([place]) Comment on above: Performed By: #### G FR, DIMER, ANEU, PRO, APTT, MDW, ADIFF, BMP, CBC, TROPHS #### [address] [address] Electrolyte Balance 5.0 mEq/L Normal 4.0-15.0 [facility] ([place]) Comment on above: Performed By: #### G FR, DIMER, ANEU, PRO, APTT, MDW, ADIFF, BMP, CBC, TROPHS #### [address] [address] Glucose [Mass/Vol] 75 mg/dL Normal 70-105 [facility] ([place]) Comment on above: Performed By: #### G FR, DIMER, ANEU, PRO, APTT, MDW, ADIFF, BMP, CBC, TROPHS #### [address] [address] Potassium [Moles/Vol] 3.5 mmol/L Normal 3.5-5.1 [facility] ([place]) Comment on above: Performed By: #### G FR, DIMER, ANEU, PRO, APTT, MDW, ADIFF, BMP, CBC, TROPHS #### [address] [address] Sodium [Moles/Vol] 143 mmol/L Normal 136-145 [facility] ([place]) Comment on above: Performed By: #### G FR, DIMER, ANEU, PRO, APTT, MDW, ADIFF, BMP, CBC, TROPHS #### [address] [address] Urea nitrogen [Mass/Vol] 12 mg/dL Normal 7-18 [facility] ([place]) Comment on above: Performed By: #### G FR, DIMER, ANEU, PRO, APTT, MDW, ADIFF, BMP, CBC, TROPHS #### [address] [address] CBCon 02-22-2023 Erythrocyte distribution width (RBC) [Ratio] 14.4 % Normal 11.5-14.5 [facility] ([place]) Comment on above: Performed By: #### G FR, DIMER, ANEU, PRO, APTT, MDW, ADIFF, BMP, CBC, TROPHS #### [address] [address] Hematocrit (Bld) [Volume fraction] 39.6 % Normal 37.0-47.0 [facility] ([place]) Comment on above: Performed By: #### G FR, DIMER, ANEU, PRO, APTT, MDW, ADIFF, BMP, CBC, TROPHS #### [address] [address] Hgb 13.2 G/dL Normal 12.0-16.0 [facility] ([place]) Comment on above: Performed By: #### G FR, DIMER, ANEU, PRO, APTT, MDW, ADIFF, BMP, CBC, TROPHS #### [address] [address] MCH (RBC) [Entitic mass] 28.4 pg Normal 27.0-31.2 [facility] ([place]) Comment on above: Performed By: #### G FR, DIMER, ANEU, PRO, APTT, MDW, ADIFF, BMP, CBC, TROPHS #### [address] [address] MCHC 33.3 G/dL Normal 33.0-37.0 [facility] ([place]) Comment on above: Performed By: #### G FR, DIMER, ANEU, PRO, APTT, MDW, ADIFF, BMP, CBC, TROPHS #### [place] [address] MCV (RBC) [Entitic vol] 85.1 fL Normal 80.0-94.0 A [facility] ([place]) Comment on above: Performed By: #### G FR, DIMER, ANEU, PRO, APTT, MDW, ADIFF, BMP, CBC, TROPHS #### [address] [address] Platelet 741 10 3/mcL High 130-400 [facility] ([place]) Comment on above: Performed By: #### G FR, DIMER, ANEU, PRO, APTT, MDW, ADIFF, BMP, CBC, TROPHS #### [address] [address] Platelet mean volume (Bld) [Entitic vol] 6.8 fL Low 7.4-10.4 [facility] ([place]) Comment on above: Performed By: #### G FR, DIMER, ANEU, PRO, APTT, MDW, ADIFF, BMP, CBC, TROPHS #### [address] [address] RBC 4.66 10 6/mcL Normal 4.20-5.40 [facility] ([place]) Comment on above: Performed By: #### G FR, DIMER, ANEU, PRO, APTT, MDW, ADIFF, BMP, CBC, TROPHS #### [place] [address] [place], [place] [address] WBC 10.4 10 3/mcL Normal 4.6-10.8 [facility] ([place]) Comment on above: Performed By: #### G FR, DIMER, ANEU, PRO, APTT, MDW, ADIFF, BMP, CBC, TROPHS #### [place] [address] [place], [place] [address] DIMERon 02-22-2023 D-Dimer 250 ng/mL D-DU High 0-230 [facility] ([place]) Comment on above: Result Comment: The result [...] APTT, MDW, ADIFF, BMP, CBC, TROPHS #### [place] [address] [place], [place] [address] LABORATORYOrdered By: SYSTEM SYSTEM on 02-22-2023 Troponin [...] Comment on above: Interpretive Data: Susana peterson [employer] (CHEST, 1991, 102:312S-25S) recommended therapeutic range for oral anticoagulant therapy is: LOW RISK: Prophylaxis of venous thrombosis INR: 2.0-3.0 Treatment of pulmonary embolism 2.0-3.0 Prevention of systemic embolism 2.0-3.0 HIGH RISK: Mechanical prosthetic valves 2.5-3.5 PT Coag (PPP) [Time] 10.2 s Invalid Interpretation Code 9.1 - 14.2 seconds AO Andrea FERNANDO PROon 02-22-2023 PT Coag (PPP) [Time] 10.2 s Normal 9.1-14.2 [facility] ([place]) Comment on above: Performed By: #### G FR, DIMER, ANEU, PRO, APTT, MDW, ADIFF, BMP, CBC, TROPHS ####[address] [address] PT International Ratio 0.9 Normal [facility] ([place]) Comment on above: Result Comment: The [place] [employer] (CHEST, 1991, 102:312S-25S) recommended therapeutic range for oral anticoagulant therapy is: LOW RISK: Prophylaxis of venous thrombosis INR: 2.0-3.0 Treatment of pulmonary embolism 2.0-3.0 Prevention of systemic embolism 2.0-3.0 HIGH RISK: Mechanical prosthetic valves 2.5-3.5 Performed By: #### G FR, DIMER, ANEU, PRO, APTT, MDW, ADIFF, BMP, CBC, TROPHS ####[address] [address] TROPHSon 02-22-2023 Troponin I High Sensitivity 9.9 ng/L Normal 0.0-51.4 [facility] ([place]) Comment on above: Performed By: #### Susana JESSICA #### [address] [address] Troponin I High Sensitivity 9.1 ng/L Normal 0.0-51.4 [facility] ([place]) Comment on above: Performed By: #### G FR, DIMER, ANEU, PRO, APTT, MDW, ADIFF, BMP, CBC, TROPHS #### [address] [place] [address] [place], [place] [address] XR CHEST 1 VIEWon 02-22-2023 XR CHEST [...] 02/22/2023 12:28:42 PM Ordering Provider: ELKE GARCIA [facility] ([place]) Absolute lymphocyte countOrd ered By: Jama Bustamante on 02-11-2023 Lymphocytes Auto (Unsp spec) [#/Vol] 1.85 10*3/uL 0.83-4.51 [facility] Basophil percentageOrdered B y: Jama Bustamante on 02-11-2023 Basophils/100 WBC (Bld) 0.4 % 0-1 [facility] Chloride [Moles/Vol] 103 mmol/L 98-107 [facility] Eosinophils/100 WBC (Bld) 1.7 % 0-5 [facility] Glucose [Mass/Vol] 98 mg/dL 74-106 [facility] Neutrophils (Bld) [#/Vol] 7.8 10*3/uL 2.0-7.7 [facility] Neutrophils/100 WBC (Bld) 68.8 % 47-70 [facility] Potassium [Moles/Vol] 3.4 mmol/L 3.5-5.1 [facility] Sodium [Moles/Vol] 138 mmol/L 136-145 [facility] WBC (Bld) [#/Vol] 11.3 10*3/uL 4.4-11.0 [facility] Blood erythrocytes count (nu mber/volume)Ordered By: Jama Bustamnate on 02-11-2023 RBC (Bld) [#/Vol] 4.31 10*6/uL 4.2-5.4 [facility] Blood hemoglobin measurement (mass/volume)Ordered By: Jama Bustamante on 02-11-2023 Hemoglobin (Bld) [Mass/Vol] 12.2 g/dL 12.0-15.0 [facility] Blood lymphocytes/100 leukoc ytesOrdered By: Jama Bustamante on 02-11-2023 Lymphocytes/100 WBC (Bld) 16.4 % 19-41 [facility] Blood monocytes/100 leukocyt esOrdered By: Jama Bustamante on 02-11-2023 Monocytes/100 WBC (Bld) 12.0 % 0-10 [facility] Blood platelet mean volumeOr dered By: Jama Bustamante on 02-11-2023 Platelet mean volume (Bld) [Entitic vol] 9.7 fL 6.2-12.0 [facility] Determination of erythrocyte mean corpuscular volume (MCV)Ordered By: Jama Bustamante on 02-11-2023 MCV (RBC) [Entitic vol] 88.9 fL 81-99 [facility] Hematocrit Auto (Bld) [Volum e fraction]Ordered By: Jama Bustamante on 02-11-2023 Hematocrit (Bld) [Volume fraction] 38.3 % 37-47 [facility] Laboratory - Chemistry and C hemistry - challengeOrdered By: Jama Bustamante on 02-11-2023 CO2 [Moles/Vol] 30.0 mmol/L 21.0-32.0 [facility] Urea nitrogen/Creatinine [Mass ratio] 12.0 mg/mg 10-20 [facility] Laboratory - Hematology and Cell countsOrdered By: Jama Bustamante on 02-11-2023 Erythrocyte distribution width (RBC) [Entitic vol] 45.0 fL 35.1-43.9 [facility] Erythrocyte distribution width (RBC) [Ratio] 13.7 % 11.6-14.6 [facility] Immature granulocytes/100 WBC (Bld) 0.700 % 0.0-0.9 [facility] Comment on above: IG% - Immature Granu locytes (promyelocytes, myelocytes and metamyelocytes) > 1% indicates that a LEFT SHIFT is Present. MCH (RBC) [Entitic mass] 28.3 pg 27.0-32.0 [facility] Nucleated RBC/100 WBC (Bld) [Ratio] 0 % 0-5 [facility] MCHC Auto (RBC) [Mass/Vol]Or dered By: Jama Bustamante on 02-11-2023 MCHC (RBC) [Mass/Vol] 31.9 g/dL 32-36 [facility] Comment on above: Delta: 30.2 on 02/10 No Panel InformationOrdered By: Jama Bustamante on 02-11-2023 Estimated Creatinine Clearance Calc 72.33 ml/min [facility] Estimated GFR (MDRD) Amer 102 mL/min >60 [facility] Comment on above: GFR Calc Estimated GFR (MDRD) Non-Af Amer 85 mL/min >60 [facility] Comment on above: Non- GFR Calc Platelets bldOrdered By: Gricel Bustamante on 02-11-2023 Platelets (Bld) [#/Vol] 381 10*3/uL 150-450 [facility] Serum or plasma calcium scarlett urement (mass/volume)Ordered By: Jama Bustamante on 02-11-2023 Calcium [Mass/Vol] 8.9 mg/dL 8.5-10.1 [facility] Serum or plasma creatinine m easurement (mass/volume)Ordered By: Jama Bustamante on 02-11-2023 Creatinine [Mass/Vol] 0.75 mg/dL 0.55-1.02 [facility] Comment on above: The validity of the calculated GFR & GFRAA in patients over 70 years has not been determined. Clinical correlation is essential. Serum or plasma urea nitroge n measurement (mass/volume)Ordered By: Jama Bustamante on 02-11-2023 Urea nitrogen [Mass/Vol] 9 mg/dL 7-18 [facility] Thin prep Papanicolaou smear with manual screeningOrdered By: Jama Bustamante on 02-11-2023 Thin prep Papanicolaou smear with manual screening 5 5-15 [facility] Review by pathologistOrdered By: Jama Bustamante on 02-09-2023 Pathologist review Song (Unsp spec) [Interp] Reviewed [facility] Comment on above: Previous reported re sult: Vaishali octaviano Edited by: RGOOD on 02/10/23:1012Neutrophilic leukocytosis.Clinical correlation necessary.Dakota Lyle M.D. 02/10/23 AMENDED REPORT 02/10/23 1012 PATH REV previously reported as: Vaishali octaviano Basophil percentageOrdered B y: Omega Mejía on 02-08-2023 Lactate [Moles/Vol] 0.9 mmol/L 0.4-2.0 [facility] Basophil percentage >100 SEEN /hpf 0-5 [facility] Bilirubin [Mass/Vol] 1.30 mg/dL 0.20-1.00 [facility] Comment on above: For patients on eltr ombopag therapy, use of Dimension [place] TBIL is not recommended. Protein [Mass/Vol] 7.3 g/dL 6.4-8.2 [facility] Bilirubin Test strip Ql (U)O rdered By: Omega Mejía on 02-08-2023 Bilirubin Ql (U) 1 mg/dL Negative [facility] Comment on above: COLOR OF URINE MAY A FFECT DIPSTICK RESULTS. Blood manual differential co mment interpretation (narrative result)Ordered By: Omega Mejía on 02-08-2023 Manual differential comment Song (Bld) [Interp] SCANNED [facility] Culture, urineOrdered By: Jimmy Bustamante on 02-08-2023 Bacteria identified Cx Nom (U) Presumptive E. coli [facility] Ketones Test strip Ql (U)Ord ered By: Omega Mejía on 02-08-2023 Ketones Ql (U) 50 mg/dl Negative [facility] Laboratory - Chemistry and C hemistry - challengeOrdered By: Omega Mejía on 02-08-2023 ALP [Catalytic activity/Vol] 124 U/L 45-117 [facility] ALT [Catalytic activity/Vol] 18 U/L 13-56 [facility] Globulin (S) [Mass/Vol] 4.2 g/dL 2.2-4.2 [facility] Lipase [Catalytic activity/Vol] 14 U/L 13-75 [facility] Comment on above: Please note:LIPASE r evised reference range effective 22. New Lipase methodology. Expected to produce lower values than the previous assay method. NEW Reference Range: 13 - 75 U/L Laboratory - Chemistry and C hemistry - challengeOrdered By: Jama Bustamante on 02-08-2023 Magnesium [Mass/Vol] 1.8 mg/dL 1.6-2.6 [facility] Laboratory - Microbiology an d Antimicrobial susceptibilityOrdered By: Omega Mejía on 02-08-2023 Bacteria identified Cx Nom (Bld) Escherichia coli [facility] Bacteria identified Cx Nom (Bld) Escherichia coli [facility] Mucus LM Ql (Urine sed)Order ed By: Omega Mejía on 02-08-2023 Mucus Ql (Urine sed) 0 SEEN /hpf [facility] Nitrite Test strip Ql (U)Ord ered By: Omega Mejía on 02-08-2023 Nitrite Ql (U) Positive Negative [facility] Protein Test strip Ql (U)Ord ered By: Omega Mejía on 02-08-2023 Protein Ql (U) 100 mg/dl Negative [facility] Serum or plasma albumin scarlett urement (mass/volume)Ordered By: Omega Mejía on 02-08-2023 Albumin [Mass/Vol] 3.1 g/dL 3.2-5.0 [facility] Serum or plasma albumin/glob ulin mass ratioOrdered By: Omega Mejía on 02-08-2023 Albumin/Globulin [Mass ratio] 0.7 {ratio} 0.9-2.4 [facility] Squamous epithelial cells de tection in urine sediment by light microscopyOrdered By: Omega Mejía on 02-08-2023 Epithelial cells.squamous LM Ql (Urine sed) 0 SEEN /hpf 5-10 [facility] Thin prep Papanicolaou smear with manual screeningOrdered By: Omega Mejía on 02-08-2023 Thin prep Papanicolaou smear with manual screening 28 U/L 15-37 [facility] Urine blood detectionOrdered By: Omega Mejía on 02-08-2023 RBC Ql (U) 250 /ul Negative [facility] RBC Ql (U) > 100 SEEN /hpf 0-5 [facility] Urine clarityOrdered By: Marco Mejía on 02-08-2023 Clarity (U) Cloudy Clear [facility] Urine color determinationOrd ered By: Omega Mejía on 02-08-2023 Color (U) Brown Yellow [facility] Urine glucose detectionOrder ed By: Omega Mejía on 02-08-2023 Glucose Ql (U) Normal mg/dl Normal [facility] Urine leukocyte esterase det ection by dipstickOrdered By: mOega Mejía on 02-08-2023 Leukocyte esterase Test strip Ql (U) 500 /ul Negative [facility] Urine pHOrdered By: Omega Mejía on 02-08-2023 pH (U) 6.5 [pH] 5.0 - 8.0 [facility] Urine sediment bacteria coun t by microscopy (number/high power field)Ordered By: Omega Mejía on 02-08-2023 Bacteria LM.HPF (Urine sed) [#/Area] 1 /[HPF] None Seen [facility] Urine specific gravity measu rementOrdered By: Omega Mejía on 02-08-2023 Specific gravity (U) [Rel density] 1.015 1.002-1.030 [facility] Urobilinogen Auto test strip Ql (U)Ordered By: Omega Mejía on 02-08-2023 Urobilinogen Ql (U) 4 mg/dl Normal [facility] Absolute lymphocyte countOrd ered By: Dr. Rubi on 12-30-2022 Lymphocytes Auto (Unsp spec) [#/Vol] 3.48 10*3/uL 0.83-4.51 [facility] Basophil percentageOrdered B y: Dr. Rubi on 12-30-2022 Basophil percentage 0-5 SEEN /hpf 0-5 [facility] Basophils/100 WBC (Bld) 0.5 % 0-1 [facility] Bilirubin [Mass/Vol] 0.30 mg/dL 0.20-1.00 [facility] Comment on above: For patients on eltr ombopag therapy, use of Dimension [place] TBIL is not recommended. Chloride [Moles/Vol] 105 mmol/L 98-107 [facility] Eosinophils/100 WBC (Bld) 2.2 % 0-5 [facility] Glucose [Mass/Vol] 100 mg/dL 74-106 [facility] Comment on above: Fasting Glucose resu lt from 100 to 125 mg/dL suggests IMPAIRED HOMEOSTASIS per A.D.A. criteria. Neutrophils (Bld) [#/Vol] 9.2 10*3/uL 2.0-7.7 [facility] Neutrophils/100 WBC (Bld) 66.2 % 47-70 [facility] Potassium [Moles/Vol] 3.7 mmol/L 3.5-5.1 [facility] Protein [Mass/Vol] 7.7 g/dL 6.4-8.2 [facility] Sodium [Moles/Vol] 139 mmol/L 136-145 [facility] WBC (Bld) [#/Vol] 14.0 10*3/uL 4.4-11.0 [facility] Bilirubin Test strip Ql (U)O rdered By: Dr. Rubi on 12-30-2022 Bilirubin Ql (U) Negative Negative [facility] Blood erythrocytes count (nu mber/volume)Ordered By: Dr. Rubi on 12-30-2022 RBC (Bld) [#/Vol] 5.23 10*6/uL 4.2-5.4 [facility] Blood hemoglobin measurement (mass/volume)Ordered By: Dr. Rubi on 12-30-2022 Hemoglobin (Bld) [Mass/Vol] 14.9 g/dL 12.0-15.0 [facility] Blood lymphocytes/100 leukoc ytesOrdered By: Dr. Rubi on 12-30-2022 Lymphocytes/100 WBC (Bld) 24.9 % 19-41 [facility] Blood monocytes/100 leukocyt esOrdered By: Dr. Rubi on 12-30-2022 Monocytes/100 WBC (Bld) 5.8 % 0-10 [facility] Blood platelet mean volumeOr dered By: Dr. Rubi on 12-30-2022 Platelet mean volume (Bld) [Entitic vol] 9.1 fL 6.2-12.0 [facility] Determination of erythrocyte mean corpuscular volume (MCV)Ordered By: Dr. Rubi on 12-30-2022 MCV (RBC) [Entitic vol] 88.0 fL 81-99 [facility] Hematocrit Auto (Bld) [Volum e fraction]Ordered By: Dr. Rubi on 12-30-2022 Hematocrit (Bld) [Volume fraction] 46.0 % 37-47 [facility] Ketones Test strip Ql (U)Ord ered By: Dr. Rubi on 12-30-2022 Ketones Ql (U) Negative Negative [facility] Laboratory - Chemistry and C hemistry - challengeOrdered By: Dr. Rubi on 12-30-2022 ALP [Catalytic activity/Vol] 117 U/L 45-117 [facility] ALT [Catalytic activity/Vol] 16 U/L 13-56 [facility] CO2 [Moles/Vol] 29.0 mmol/L 21.0-32.0 [facility] Globulin (S) [Mass/Vol] 4.4 g/dL 2.2-4.2 [facility] Lipase [Catalytic activity/Vol] 32 U/L 13-75 [facility] Comment on above: Please note:LIPASE r evised reference range effective 22. New Lipase methodology. Expected to produce lower values than the previous assay method. NEW Reference Range: 13 - 75 U/L Urea nitrogen/Creatinine [Mass ratio] 16.6 mg/mg 10-20 [facility] Laboratory - Hematology and Cell countsOrdered By: Dr. Rubi on 12-30-2022 Erythrocyte distribution width (RBC) [Entitic vol] 43.5 fL 35.1-43.9 [facility] Erythrocyte distribution width (RBC) [Ratio] 13.5 % 11.6-14.6 [facility] Immature granulocytes/100 WBC (Bld) 0.400 % 0.0-0.9 [facility] Comment on above: IG% - Immature Granu locytes (promyelocytes, myelocytes and metamyelocytes) > 1% indicates that a LEFT SHIFT is Present. MCH (RBC) [Entitic mass] 28.5 pg 27.0-32.0 [facility] Nucleated RBC/100 WBC (Bld) [Ratio] 0 % 0-5 [facility] MCHC Auto (RBC) [Mass/Vol]Or dered By: Dr. Rubi on 12-30-2022 MCHC (RBC) [Mass/Vol] 32.4 g/dL 32-36 [facility] Mucus LM Ql (Urine sed)Order ed By: Dr. Rubi on 12-30-2022 Mucus Ql (Urine sed) 0 SEEN /hpf [facility] Nitrite Test strip Ql (U)Ord ered By: Dr. Rubi on 12-30-2022 Nitrite Ql (U) Negative Negative [facility] No Panel InformationOrdered By: Dr. Rubi on 12-30-2022 Estimated Creatinine Clearance Calc 60.27 ml/min [facility] Estimated GFR (MDRD) Amer 83 mL/min >60 [facility] Comment on above: GFR Calc Estimated GFR (MDRD) Non-Af Amer 68 mL/min >60 [facility] Comment on above: Non- GFR Calc Platelets bldOrdered By: Dr. Rubi on 12-30-2022 Platelets (Bld) [#/Vol] 533 10*3/uL 150-450 [facility] Protein Test strip Ql (U)Ord ered By: Dr. Rubi on 12-30-2022 Protein Ql (U) 15 mg/dl Negative [facility] Serum or plasma albumin scarlett urement (mass/volume)Ordered By: Dr. Rubi on 12-30-2022 Albumin [Mass/Vol] 3.3 g/dL 3.2-5.0 [facility] Serum or plasma albumin/glob ulin mass ratioOrdered By: Dr. Rubi on 12-30-2022 Albumin/Globulin [Mass ratio] 0.8 {ratio} 0.9-2.4 [facility] Serum or plasma calcium scarlett urement (mass/volume)Ordered By: Dr. Rubi on 12-30-2022 Calcium [Mass/Vol] 9.3 mg/dL 8.5-10.1 [facility] Serum or plasma creatinine m easurement (mass/volume)Ordered By: Dr. Rubi on 12-30-2022 Creatinine [Mass/Vol] 0.90 mg/dL 0.55-1.02 [facility] Comment on above: The validity of the calculated GFR & GFRAA in patients over 70 years has not been determined. Clinical correlation is essential. Serum or plasma urea nitroge n measurement (mass/volume)Ordered By: Dr. Rubi on 12-30-2022 Urea nitrogen [Mass/Vol] 15 mg/dL 7-18 [facility] Squamous epithelial cells de tection in urine sediment by light microscopyOrdered By: Dr. Rubi on 12-30-2022 Epithelial cells.squamous LM Ql (Urine sed) 0 SEEN /hpf 5-10 [facility] Thin prep Papanicolaou smear with manual screeningOrdered By: Dr. Rubi on 12-30-2022 Thin prep Papanicolaou smear with manual screening 15 U/L 15-37 [facility] Thin prep Papanicolaou smear with manual screening 5 5-15 [facility] Urine blood detectionOrdered By: Dr. Rubi on 12-30-2022 RBC Ql (U) 25 /ul Negative [facility] RBC Ql (U) 0 SEEN /hpf 0-5 [facility] Urine clarityOrdered By: Dr. Rubi on 12-30-2022 Clarity (U) Clear Clear [facility] Urine color determinationOrd ered By: Dr. Rubi on 12-30-2022 Color (U) Yellow Yellow [facility] Urine glucose detectionOrder ed By: Dr. Rubi on 12-30-2022 Glucose Ql (U) Normal mg/dl Normal [facility] Urine leukocyte esterase det ection by dipstickOrdered By: Dr. Rubi on 12-30-2022 Leukocyte esterase Test strip Ql (U) Negative Negative [facility] Urine pHOrdered By: Dr. Kate cheung on 12-30-2022 pH (U) 6.5 [pH] 5.0 - 8.0 [facility] Urine sediment bacteria coun t by microscopy (number/high power field)Ordered By: Dr. Rubi on 12-30-2022 Bacteria LM.HPF (Urine sed) [#/Area] 0 /[HPF] None Seen [facility] Urine specific gravity measu rementOrdered By: Dr. Rubi on 12-30-2022 Specific gravity (U) [Rel density] 1.015 1.002-1.030 [facility] Urobilinogen Auto test strip Ql (U)Ordered By: Dr. Rubi on 12-30-2022 Urobilinogen Ql (U) Normal mg/dl Normal [facility] Absolute lymphocyte countOrd ered By: Dr. Duke on 11-16-2022 Lymphocytes Auto (Unsp spec) [#/Vol] 1.90 10*3/uL 0.83-4.51 [facility] Basophil percentageOrdered B y: Dr. Duke on 11-16-2022 Basophils/100 WBC (Bld) 0.3 % 0-1 [facility] Bilirubin [Mass/Vol] 0.40 mg/dL 0.20-1.00 [facility] Comment on above: For patients on eltr ombopag therapy, use of Dimension [place] TBIL is not recommended. Chloride [Moles/Vol] 104 mmol/L 98-107 [facility] Eosinophils/100 WBC (Bld) 0.9 % 0-5 [facility] Glucose [Mass/Vol] 122 mg/dL 74-106 [facility] Comment on above: Fasting Glucose resu lt from 100 to 125 mg/dL suggests IMPAIRED HOMEOSTASIS per A.D.A. criteria. Neutrophils (Bld) [#/Vol] 24.6 10*3/uL 2.0-7.7 [facility] Neutrophils/100 WBC (Bld) 84.8 % 47-70 [facility] Potassium [Moles/Vol] 3.7 mmol/L 3.5-5.1 [facility] Protein [Mass/Vol] 8.6 g/dL 6.4-8.2 [facility] Sodium [Moles/Vol] 139 mmol/L 136-145 [facility] WBC (Bld) [#/Vol] 29.0 10*3/uL 4.4-11.0 [facility] Blood erythrocytes count (nu mber/volume)Ordered By: Dr. Duke on 11-16-2022 RBC (Bld) [#/Vol] 5.61 10*6/uL 4.2-5.4 [facility] Blood hemoglobin measurement (mass/volume)Ordered By: Dr. Duke on 11-16-2022 Hemoglobin (Bld) [Mass/Vol] 16.0 g/dL 12.0-15.0 [facility] Blood lymphocytes/100 leukoc ytesOrdered By: Dr. Duke on 11-16-2022 Lymphocytes/100 WBC (Bld) 6.6 % 19-41 [facility] Blood monocytes/100 leukocyt esOrdered By: Dr. Duke on 11-16-2022 Monocytes/100 WBC (Bld) 6.8 % 0-10 [facility] Blood platelet adequacy dete ction by light microscopyOrdered By: Dr. Duke on 11-16-2022 Platelets LM Ql (Bld) MOD INC ADEQ [facility] Blood platelet mean volumeOr dered By: Dr. Duke on 11-16-2022 Platelet mean volume (Bld) [Entitic vol] 8.9 fL 6.2-12.0 [facility] Determination of erythrocyte mean corpuscular volume (MCV)Ordered By: Dr. Duke on 11-16-2022 MCV (RBC) [Entitic vol] 89.5 fL 81-99 [facility] Hematocrit Auto (Bld) [Volum e fraction]Ordered By: Dr. Duke on 11-16-2022 Hematocrit (Bld) [Volume fraction] 50.2 % 37-47 [facility] Laboratory - Chemistry and C hemistry - challengeOrdered By: Dr. Duke on 11-16-2022 ALP [Catalytic activity/Vol] 131 U/L 45-117 [facility] ALT [Catalytic activity/Vol] 19 U/L 13-56 [facility] CO2 [Moles/Vol] 27.0 mmol/L 21.0-32.0 [facility] Globulin (S) [Mass/Vol] 4.8 g/dL 2.2-4.2 [facility] Lipase [Catalytic activity/Vol] 29 U/L 13-75 [facility] Comment on above: Please note:LIPASE r evised reference range effective 22. New Lipase methodology. Expected to produce lower values than the previous assay method. NEW Reference Range: 13 - 75 U/L Urea nitrogen/Creatinine [Mass ratio] 15.9 mg/mg 10-20 [facility] Laboratory - Hematology and Cell countsOrdered By: Dr. Duke on 11-16-2022 Erythrocyte distribution width (RBC) [Entitic vol] 46.5 fL 35.1-43.9 [facility] Erythrocyte distribution width (RBC) [Ratio] 14.3 % 11.6-14.6 [facility] Immature granulocytes/100 WBC (Bld) 0.600 % 0.0-0.9 [facility] Comment on above: IG% - Immature Granu locytes (promyelocytes, myelocytes and metamyelocytes) > 1% indicates that a LEFT SHIFT is Present. MCH (RBC) [Entitic mass] 28.5 pg 27.0-32.0 [facility] Nucleated RBC/100 WBC (Bld) [Ratio] 0 % 0-5 [facility] Auto (RBC) [Mass/Vol]Or dered By: Dr. Duke on 11-16-2022 MCHC (RBC) [Mass/Vol] 31.9 g/dL 32-36 [facility] No Panel InformationOrdered By: Dr. Duke on 11-16-2022 Estimated Creatinine Clearance Calc 50.70 ml/min [facility] Estimated GFR (MDRD) Amer 68 mL/min >60 [facility] Comment on above: GFR Calc Estimated GFR (MDRD) Non-Af Amer 56 mL/min >60 [facility] Comment on above: Non- GFR Calc Troponin I High Sensitivity 7 pg/mL 3.0-54.0 [facility] Comment on above: Please Note: New Stacey t Units and Gender Specific Reference Ranges. For more information see Policy Stat Procedure [place] High Sensitivity Troponin (TNIH) and attachments. Platelets bldOrdered By: Dr. Duke on 11-16-2022 Platelets (Bld) [#/Vol] 531 10*3/uL 150-450 [facility] Review by pathologistOrdered By: Dr. Duke on 11-16-2022 Pathologist review Song (Unsp spec) [Interp] Vaishali brumfield [facility] Pathologist review Song (Unsp spec) [Interp] Reviewed [facility] Comment on above: Previous reported re sult: Vaishali brumfield Edited by: RGOOD on 11/17/22:0959Neutrophilic leukocytosis.Polycythemia Thrombocytosis.Clinical correlation necessary.Dakota Lyle M.D. 11/17/22 AMENDED REPORT 11/17/22 0959 PATH REV previously reported as: Vaishali brumfield Serum or plasma albumin scarlett urement (mass/volume)Ordered By: Dr. Duke on 11-16-2022 Albumin [Mass/Vol] 3.8 g/dL 3.2-5.0 [facility] Serum or plasma albumin/glob ulin mass ratioOrdered By: Dr. Duke on 11-16-2022 Albumin/Globulin [Mass ratio] 0.8 {ratio} 0.9-2.4 [facility] Serum or plasma calcium scarlett urement (mass/volume)Ordered By: Dr. Duke on 11-16-2022 Calcium [Mass/Vol] 9.9 mg/dL 8.5-10.1 [facility] Serum or plasma creatinine m easurement (mass/volume)Ordered By: Dr. Duke on 11-16-2022 Creatinine [Mass/Vol] 1.07 mg/dL 0.55-1.02 [facility] Comment on above: The validity of the calculated GFR & GFRAA in patients over 70 years has not been determined. Clinical correlation is essential. Serum or plasma urea nitroge n measurement (mass/volume)Ordered By: Dr. Duke on 11-16-2022 Urea nitrogen [Mass/Vol] 17 mg/dL 7-18 [facility] Thin prep Papanicolaou smear with manual screeningOrdered By: Dr. Duke on 11-16-2022 Thin prep Papanicolaou smear with manual screening 22 U/L 15-37 [facility] Thin prep Papanicolaou smear with manual screening 8 5-15 [facility] XR Chest PA and Lateralon IMPRESSION: No acute radiographic abnormality. Plumbing Technician: PSCB Transcribe Date/Time: Nov 13 2022 4:56P Dictated by : JUANITA SY MD This examination was interpreted and the report reviewed and electronically signed by: JUANITA SY MD on Nov 13 2022 4:57PM [facility] DIVISION OF RADIOLOGY * * *Final Report* [...] shows degenerative changes. DIVISION OF RADIOLOGY Provider, [facility] - 11/13/2022 * * *Final Report* [...] changes. IMPRESSION IMPRESSION: No acute radiographic abnormality. Plumbing Technician: YAZMIN Transcribe Date/Time: Nov 13 2022 4:56P Dictated by : JUANITA SY MD This examination was interpreted and the report reviewed and electronically signed by: JUANITA SY MD on Nov 13 2022 4:57PM EST [facility] Radiology Study observation (narrative) [facility] XR Chest PA and LateralOrder ed By: [facility] Provider on 11-13-2022 [facility] Absolute lymphocyte countOrd ered By: Dr. Leos on 09-09-2022 Lymphocytes Auto (Unsp spec) [#/Vol] 4.21 10*3/uL 0.83-4.51 [facility] Basophil percentageOrdered B y: Dr. Leos on 09-09-2022 Basophil percentage 0 SEEN /hpf 0-5 [facility] Basophils/100 WBC (Bld) 0.5 % 0-1 [facility] Bilirubin [Mass/Vol] 0.40 mg/dL 0.20-1.00 [facility] Comment on above: For patients on eltr ombopag therapy, use of Dimension [place] TBIL is not recommended. Chloride [Moles/Vol] 101 mmol/L 98-107 [facility] Eosinophils/100 WBC (Bld) 2.0 % 0-5 [facility] Glucose [Mass/Vol] 89 mg/dL 74-106 [facility] Neutrophils (Bld) [#/Vol] 12.6 10*3/uL 2.0-7.7 [facility] Neutrophils/100 WBC (Bld) 67.1 % 47-70 [facility] Potassium [Moles/Vol] 4.5 mmol/L 3.5-5.1 [facility] Comment on above: Moderate Hemolysis, Result may be falsely increased. Protein [Mass/Vol] 8.2 g/dL 6.4-8.2 [facility] Sodium [Moles/Vol] 137 mmol/L 136-145 [facility] WBC (Bld) [#/Vol] 18.7 10*3/uL 4.4-11.0 [facility] Bilirubin Test strip Ql (U)O rdered By: Dr. Leos on 09-09-2022 Bilirubin Ql (U) Negative Negative [facility] Blood erythrocytes count (nu mber/volume)Ordered By: Dr. Leos on 09-09-2022 RBC (Bld) [#/Vol] 5.29 10*6/uL 4.2-5.4 [facility] Blood hemoglobin measurement (mass/volume)Ordered By: Dr. Leos on 09-09-2022 Hemoglobin (Bld) [Mass/Vol] 14.8 g/dL 12.0-15.0 [facility] Blood lymphocytes/100 leukoc ytesOrdered By: Dr. Leos on 09-09-2022 Lymphocytes/100 WBC (Bld) 22.5 % 19-41 [facility] Blood monocytes/100 leukocyt esOrdered By: Dr. Leos on 09-09-2022 Monocytes/100 WBC (Bld) 7.4 % 0-10 [facility] Blood platelet mean volumeOr dered By: Dr. Leos on 09-09-2022 Platelet mean volume (Bld) [Entitic vol] 9.8 fL 6.2-12.0 [facility] Determination of erythrocyte mean corpuscular volume (MCV)Ordered By: Dr. Leos on 09-09-2022 MCV (RBC) [Entitic vol] 89.2 fL 81-99 [facility] Hematocrit Auto (Bld) [Volum e fraction]Ordered By: Dr. Leos on 09-09-2022 Hematocrit (Bld) [Volume fraction] 47.2 % 37-47 [facility] Ketones Test strip Ql (U)Ord ered By: Dr. Leos on 09-09-2022 Ketones Ql (U) Negative Negative [facility] Laboratory - Chemistry and C hemistry - challengeOrdered By: Dr. Leos on 09-09-2022 ALP [Catalytic activity/Vol] 128 U/L 45-117 [facility] ALT [Catalytic activity/Vol] 22 U/L 13-56 [facility] CO2 [Moles/Vol] 29.0 mmol/L 21.0-32.0 [facility] Globulin (S) [Mass/Vol] 4.7 g/dL 2.2-4.2 [facility] Urea nitrogen/Creatinine [Mass ratio] 15.5 mg/mg 10-20 [facility] Laboratory - Hematology and Cell countsOrdered By: Dr. Leos on 09-09-2022 Erythrocyte distribution width (RBC) [Entitic vol] 44.9 fL 35.1-43.9 [facility] Erythrocyte distribution width (RBC) [Ratio] 13.7 % 11.6-14.6 [facility] Immature granulocytes/100 WBC (Bld) 0.500 % 0.0-0.9 [facility] Comment on above: IG% - Immature Granu locytes (promyelocytes, myelocytes and metamyelocytes) > 1% indicates that a LEFT SHIFT is Present. MCH (RBC) [Entitic mass] 28.0 pg 27.0-32.0 [facility] Nucleated RBC/100 WBC (Bld) [Ratio] 0 % 0-5 [facility] MCHC Auto (RBC) [Mass/Vol]Or dered By: Dr. Leos on 09-09-2022 MCHC (RBC) [Mass/Vol] 31.4 g/dL 32-36 [facility] Mucus LM Ql (Urine sed)Order ed By: Dr. Leos on 09-09-2022 Mucus Ql (Urine sed) 0 SEEN /hpf [facility] Nitrite Test strip Ql (U)Ord ered By: Dr. Leos on 09-09-2022 Nitrite Ql (U) Negative Negative [facility] No Panel InformationOrdered By: Dr. Leos on 02-22-2023 Estimated Creatinine Clearance Calc 60.27 ml/min [facility] Estimated GFR (MDRD) Amer 83 mL/min >60 [facility] Comment on above: GFR Calc Estimated GFR (MDRD) Non-Af Amer 69 mL/min >60 [facility] Comment on above: Non- GFR Calc Platelets bldOrdered By: Dr. Leos on 09-09-2022 Platelets (Bld) [#/Vol] 580 10*3/uL 150-450 [facility] Protein Test strip Ql (U)Ord ered By: Dr. Leos on 09-09-2022 Protein Ql (U) Negative Negative [facility] Serum or plasma albumin scarlett urement (mass/volume)Ordered By: Dr. Leos on 09-09-2022 Albumin [Mass/Vol] 3.5 g/dL 3.2-5.0 [facility] Serum or plasma albumin/glob ulin mass ratioOrdered By: Dr. Leos on 09-09-2022 Albumin/Globulin [Mass ratio] 0.7 {ratio} 0.9-2.4 [facility] Serum or plasma calcium scarlett urement (mass/volume)Ordered By: Dr. Leos on 09-09-2022 Calcium [Mass/Vol] 9.6 mg/dL 8.5-10.1 [facility] Serum or plasma creatinine m easurement (mass/volume)Ordered By: Dr. Leos on 09-09-2022 Creatinine [Mass/Vol] 0.90 mg/dL 0.55-1.02 [facility] Comment on above: The validity of the calculated GFR & GFRAA in patients over 70 years has not been determined. Clinical correlation is essential. Serum or plasma urea nitroge n measurement (mass/volume)Ordered By: Dr. Leos on 09-09-2022 Urea nitrogen [Mass/Vol] 14 mg/dL 7-18 [facility] Squamous epithelial cells de tection in urine sediment by light microscopyOrdered By: Dr. Leos on 09-09-2022 Epithelial cells.squamous LM Ql (Urine sed) 0 SEEN /hpf 5-10 [facility] Thin prep Papanicolaou smear with manual screeningOrdered By: Dr. Leos on 09-09-2022 Thin prep Papanicolaou smear with manual screening 30 U/L 15-37 [facility] Comment on above: Moderate Hemolysis, Result may be falsely increased. Thin prep Papanicolaou smear with manual screening 7 5-15 [facility] Urine blood detectionOrdered By: Dr. Leos on 09-09-2022 RBC Ql (U) 10 /ul Negative [facility] RBC Ql (U) 0 SEEN /hpf 0-5 [facility] Urine clarityOrdered By: Dr. Leos on 09-09-2022 Clarity (U) Clear Clear [facility] Urine color determinationOrd ered By: Dr. Leos on 09-09-2022 Color (U) Yellow Yellow [facility] Urine glucose detectionOrder ed By: Dr. Leos on 09-09-2022 Glucose Ql (U) Normal mg/dl Normal [facility] Urine leukocyte esterase det ection by dipstickOrdered By: Dr. Leos on 09-09-2022 Leukocyte esterase Test strip Ql (U) Negative Negative [facility] Urine pHOrdered By: Dr. Jada medina on 09-09-2022 pH (U) 7.0 [pH] 5.0 - 8.0 [facility] Urine sediment bacteria coun t by microscopy (number/high power field)Ordered By: Dr. Leos on 09-09-2022 Bacteria LM.HPF (Urine sed) [#/Area] 0 /[HPF] None Seen [facility] Urine specific gravity measu rementOrdered By: Dr. Leos on 09-09-2022 Specific gravity (U) [Rel density] 1.010 1.002-1.030 [facility] Urobilinogen Auto test strip Ql (U)Ordered By: Dr. Leos on 09-09-2022 Urobilinogen Ql (U) Normal mg/dl Normal [facility] EKGon 04-26-2021 Electrocardiogram Procedure Date and Time: [...] ECG No previous ECGs available Confirmed by SABPRAKASH Roche A. ([id number]) on 04/27/2021 4:40:31 AM Referred By: Vincenzo Gallardo Confirmed By:Hilario GOMEZ M.D.FACC Blayne DDandT: 04/26/21 1556 TDandT: [facility] PAT[facility]: [facility] MEDICAL REC #: [id number] [place] [address] ADMIT DATE: DISCHARGE DATE: 04/26/21 ATTENDING PHY: Vincenzo Gallardo MD ELECTROCARDIOGRAM REPORT CLB cc: [facility] PATIENT NAME: [facility] MEDICAL REC #: [id number] [place] [address] ADMIT DATE: DISCHARGE DATE: 04/26/21 ATTENDING PHY: Vincenzo Gallardo MD ELECTROCARDIOGRAM REPORT [facility] REPORT This is a preliminary report only, as the practitioner review and authentication has not occurred. Normal [facility] ER PHYSICIAN ASSESSMENT RECORDS : Discharge Report Event Time: 04/26/2021 19:28 : FlexChartData Event Time: 04/26/2021 20:00 Status: Signed [facility] Savannah Irvin [[id number]] Attending Physician 55 / F / 1965 Chart (V2b) Chart created at 04/26/2021 19:22 by Vincenzo Gallardo Chart closed at 04/26/2021 19:27 Entry in Emergency Department at 04/26/2021 15:21 Patient Name: Savannah Irvin Record Number: [id number] Date: 04/26/2021 19:22 Entered Department at: 04/26/2021 [...] chest pain, just shortness of breath and [facility] PATIENT NAME: SAVANNAH IRVIN [facility] Dr. Hyman MEDICAL REC #: [id number] [place] [address] EMERGENCY DEPARTMENT REPORT EMERGENCY DEPARTMENT PHYSICIAN wheezing. [...] PORTABLE CHEST CLINICAL HISTORY: Dyspnea COMPARISON: None. [facility] PATIENT NAME: SAVANNAH IRVIN [facility] Dr. Hyman MEDICAL REC #: [id number] [place] [address] EMERGENCY DEPARTMENT REPORT EMERGENCY DEPARTMENT PHYSICIAN RESULT: [...] Results, Diagnosis and (more content not included)... [facility] PORTABLE CHESTon 04-26-2021 PORTABLE CHEST PORTABLE CHEST CLINICAL HISTORY: Dyspnea COMPARISON: None. RESULT: Lungs are clear. No cardiomegaly. No pulmonary edema. IMPRESSION: No acute pulmonary process. This report was electronically signed by Michelle Galeana MD 04/26/2021 4:21 PM Reported By: MICHELLE GALEANA MD Signed By: MICHELLE GALEANA MD [facility] PROGRESSon 04-02-2017 PROGRESS HNO ID: [id number]: Kellee (Ct) Td [facility]ULLervice: (none)Author Type: Clinical TechnicianType: Progress NotesFiled: 04/02/2017 10:10 AMNote Text:NAME:Savannah IrvinDATE: April 02, 2017CC#: [id number] Extremity X-Ray(s): Shoulder, AP / TRUE AP / AXILLARY / SUPRA OUTLET Bilateral COMPLETEDTECH ID SIGN: KELLEE ROD [facility] XR SHLDR >/=3V AP/DORIS AP/OTH R [...] uncertain2. Suspected remote, healed proximal left humeral fracture.[employer] ist: PSCB Transcribe Date/Time: Apr 02 2017 3:53PDictated by : ANDRE BISHOP MDThis examination was interpreted and the report reviewed and electronically signed by: ANDRE BISHOP MD on Apr 02 2017 3:55PM [id number] ACN [facility] XR SHLDR >/=3V AP/DORIS AP/OTH R [...] uncertain2. Suspected remote, healed proximal left humeral fracture.[employer] ist: PSCB Transcribe Date/Time: Apr 02 2017 3:53PDictated by : ANDRE BISHOP MDThis examination was interpreted and the report reviewed and electronically signed by: ANDRE BISHOP MD on Apr 02 2017 3:55PM [id number] ACN Normal [facility] Office Visit: Hospital F/Uon 01-13-2017 Documentation of current medications (procedure) Done Invalid Interpretation Code [facility] Work Phone: Smoking cessation education (procedure) yes Invalid Interpretation Code [facility] Work Phone: Tobacco smoking status NHIS Never Invalid Interpretation Code [facility] Work Phone: Tobacco use CPHS Current every day smoker Invalid Interpretation Code [facility] Work Phone: Clinical Lists Update: 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 software applications specialist 08-22-2016 BUN/Creatinine Ratio 20.0 mg/mg Invalid Interpretation Code [facility] Work Phone: [phone] Calcium 9.3 mg/dL Invalid Interpretation Code [facility] Work Phone: Chloride 103 mmol/L Invalid Interpretation Code [facility] Work Phone: [phone] CO2 24.0 mmol/L Invalid Interpretation Code [facility] Work Phone: Creatinine 0.80 mg/dL Invalid Interpretation Code [facility] Work Phone: [phone] Glucose 168 mg/dL Invalid Interpretation Code [facility] Work Phone: [phone] Hematocrit (HCT) 29.9 % Invalid Interpretation Code [facility] Work Phone: Hemoglobin (HGB) 9.0 g/dL Invalid Interpretation Code [facility] Work Phone: [phone] Platelets 635 10*3/mm3 Invalid Interpretation Code [facility] Work Phone: [phone] Potassium 3.8 mmol/L Invalid Interpretation Code [facility] Work Phone: [phone] Sodium 138 mmol/L Invalid Interpretation Code [facility] Work Phone: Urea nitrogen 16 mg/dL Invalid Interpretation Code [facility] Work Phone: WBC (Leukocytes) 15.5 10*3/uL Invalid Interpretation Code [facility] Work Phone: Clinical Lists Update: Prelo software applications specialist 06-29-2016 Cholesterol 217 mg/dL Invalid Interpretation Code [facility] Work Phone: HDL Cholesterol 33 mg/dL Invalid Interpretation Code [facility] Work Phone: LDL Cholesterol 114 mg/dL Invalid Interpretation Code [facility] Work Phone: Triglyceride 348 mg/dL Invalid Interpretation Code [facility] Work Phone: Lab Report: Miscellaneous La b Procedureon 12-13-2015 GE use only - for [employer] import when terms are not otherwise specified . Invalid Interpretation Code [facility] Work Phone: Lab Report: LDHon 12-06-2015 lactate dehydrogenase - serum 243 U/L Invalid Interpretation Code 84-246 [facility] Work Phone: Lab Report: Uric Acidon 11-17 Urate 3.4 mg/dL Invalid Interpretation Code 2.6-6.0 [facility] Work Phone: Vital Signs Date Time Vital Sign Value Performing Clinician Facility 01-09-2025 05:44-0400 Body temperature 97.9 [degF] Dr. Ivette Welsh MD Work Phone: [facility] 01-09-2025 05:44-0400 Diastolic blood pressure 85 mm[Hg] Dr. Ivette Welsh MD Work Phone: [facility] 01-09-2025 05:44-0400 Heart rate 88 /min Dr. Ivette Welsh MD Work Phone: [facility] 01-09-2025 05:44-0400 Respiratory rate 24 /min Dr. Ivette Welsh MD Work Phone: [facility] 01-09-2025 05:44-0400 SaO2% (BldA) [Mass fraction] 93 % Dr. Ivette Welsh MD Work Phone: 4(401)085-727276 [place] [address] 01-09-2025 05:44-0400 Systolic blood pressure 120 mm[Hg] Dr. Ivette Welsh MD Work Phone: 2(698)514-981676 [place] [address] 01-09-2025 01:00-0400 Inhaled oxygen flow rate 2 L/min Dr. Ivette Welsh MD Work Phone: 8(873)234-328976 [place] [address] 01-08-2025 20:20-0400 Body height 162.[address] Ivette Welsh MD Work Phone: 8(313)862-422476 [place] [address] 01-08-2025 20:20-0400 Body mass index (BMI) [Ratio] 30.4 kg/m2 Dr. Ivette Welsh MD Work Phone: 4(142)105-479676 [place] [address] 01-08-2025 20:20-0400 Body weight 80.[address] Ivette Welsh MD Work Phone: 7(113)982-675976 [place] [address] 01-05-2025 00:29-0400 Body temperature 98.1 [degF] Dr. Ivette Welsh MD Work Phone: 1(029)247-615176 [place] [address] 01-05-2025 00:29-0400 Diastolic blood pressure 66 mm[Hg] Dr. Ivette Welsh MD Work Phone: 3(147)796-917976 [place] [address] 01-05-2025 00:29-0400 Heart rate 93 /min Dr. Ivette Welsh MD Work Phone: 5(918)738-557776 [place] [address] 01-05-2025 00:29-0400 Respiratory rate 16 /min Dr. Ivette Welsh MD Work Phone: 7(913)338-735676 [place] [address] 01-05-2025 00:29-0400 SaO2% (BldA) [Mass fraction] 95 % Dr. Ivette Welsh MD Work Phone: 1(933)245-243576 [place] [address] 01-05-2025 00:29-0400 Systolic blood pressure 123 mm[Hg] Dr. Ivette Welsh MD Work Phone: [facility] 01-04-2025 20:55-0400 Body height 162.[address] Ivette Welsh MD Work Phone: [facility] 01-04-2025 20:55-0400 Body mass index (BMI) [Ratio] 31.7 kg/m2 Dr. Ivette Welsh MD Work Phone: [facility] 01-04-2025 20:55-0400 Body weight 83.[address] Ivette Welsh MD Work Phone: [facility] 08-23-2024 16:25-0500 Body mass index (BMI) [Ratio] 28.18 kg/m2 Marcy Raj FOOD AND DRUG INSPECTOR.[employer] TOOL MAKER Work Phone: [facility] 08-23-2024 16:25-0500 Body temperature 98.6 [degF] Marcy Raj FOOD AND DRUG INSPECTOR.[employer]KER Work Phone: [facility] 08-23-2024 16:25-0500 Body weight 76.8 kg Marcy Raj FOOD AND DRUG INSPECTOR.[employer]KER Work Phone: [facility] 08-23-2024 16:25-0500 Diastolic blood pressure 102 mm[Hg] Marcy Raj FOOD AND DRUG INSPECTOR.[employer] TOOL MAKER Work Phone: [facility] 08-23-2024 16:25-0500 Heart rate 95 /min Marcy Raj FOOD AND DRUG INSPECTOR.[employer] TOOL MAKER Work Phone: [facility] 08-23-2024 16:25-0500 Respiratory rate 20 /min Marcy Raj FOOD AND DRUG INSPECTOR.J[employer]ORE TOOL MAKER Work Phone: [facility] 08-23-2024 16:25-0500 SaO2% (BldA) [Mass fraction] 96 % Marcy Raj FOOD AND DRUG INSPECTOR.[employer] TOOL MAKER Work Phone: [facility] 08-23-2024 16:25-0500 Systolic blood pressure 182 mm[Hg] Marcy Raj FOOD AND DRUG INSPECTOR.J[employer] TOOL MAKER Work Phone: [facility] 07-24-2024 14:12-0500 Body mass index (BMI) [Ratio] 26.52 kg/m2 Ivette Welsh MD Work Phone: [facility] 07-24-2024 14:12-0500 Body weight 72.3 kg Ivette Welsh MD Work Phone: [facility] 07-24-2024 14:12-0500 Diastolic blood pressure 88 mm[Hg] Ivette Welsh MD Work Phone: [facility] 07-24-2024 14:12-0500 Heart rate 110 /min Ivette Welsh MD Work Phone: [facility] 07-24-2024 14:12-0500 Respiratory rate 20 /min Ivette Welsh MD Work Phone: [facility] 07-24-2024 14:12-0500 SaO2% (BldA) [Mass fraction] 92 % Ivette Welsh MD Work Phone: [facility] 07-24-2024 14:12-0500 Systolic blood pressure 138 mm[Hg] Ivette Welsh MD Work Phone: [facility] 07-12-2024 20:06-0500 Diastolic Blood Pressure Non-Invasive 85 mm[Hg] KELLIE MARTINEZ MD [facility] 07-12-2024 20:06-0500 Heart rate 88 /min KELLIE MARTINEZ MD [facility] 07-12-2024 20:06-0500 Respiratory rate 18 /min KELLIE MARTINEZ MD [facility] 07-12-2024 20:06-0500 Systolic Blood Pressure Non-Invasive 157 mm[Hg] KELLIE MARTINEZ MD [facility] 07-12-2024 19:28-0500 Heart rate 91 /min KELLIE MARTINEZ MD [facility] 07-12-2024 19:28-0500 Respiratory rate 20 /min KELLIE MARTINEZ MD [facility] 07-12-2024 19:17-0500 Body temperature 98.06 [degF] KELLIE MARTINEZ MD [facility] 07-12-2024 19:17-0500 Diastolic Blood Pressure Non-Invasive 97 mm[Hg] KELLIE MARTINEZ MD [facility] 07-12-2024 19:17-0500 Heart rate 97 /min KELLIE MARTINEZ MD [facility] 07-12-2024 19:17-0500 Respiratory rate 20 /min KELLIE MARTINEZ MD [facility] 07-12-2024 19:17-0500 Systolic Blood Pressure Non-Invasive 167 mm[Hg] KELLIE MARTINEZ MD [facility] 07-01-2023 22:15-0500 Blood Pressure Location JOSHUA FROMMELT DO [facility] 07-01-2023 22:15-0500 Blood Pressure Method JOSHUA FERNANDEZ D O [facility] 07-01-2023 22:15-0500 Diastolic Blood Pressure Non-Invasive 89 mm[Hg] JOSHUA FROMLULAT DO [facility] 07-01-2023 22:15-0500 Reason For Taking VItal Signs JOSHUA FROMMELT DO [facility] 07-01-2023 22:15-0500 Respiratory rate 20 /min JOSHUA FROMMELT DO [facility] 07-01-2023 22:15-0500 Systolic Blood Pressure Non-Invasive 153 mm[Hg] JOSHUA FROMMELT DO [facility] 07-01-2023 21:03-0500 Blood Pressure Location JOSHUA FROMMELT DO [facility] 07-01-2023 21:03-0500 Blood Pressure Method JOSHUA FROMMELT D O [facility] 07-01-2023 21:03-0500 Diastolic Blood Pressure Non-Invasive 89 mm[Hg] JOSHUA FROMMELT DO [facility] 07-01-2023 21:03-0500 Reason For Taking VItal Signs JOSHUA FROMMELT DO [facility] 07-01-2023 21:03-0500 Respiratory rate 19 /min JOSHUA GILLMELT DO [facility] 07-01-2023 21:03-0500 Systolic Blood Pressure Non-Invasive 147 mm[Hg] JOSHUA GILLMELT DO [facility] 07-01-2023 20:08-0500 Blood Pressure Location JOSHUA FROMMELT DO [facility] 07-01-2023 20:08-0500 Blood Pressure Method JOSHUA HAMILTONT D O [facility] 07-01-2023 20:08-0500 Diastolic Blood Pressure Non-Invasive 103 mm[Hg] JOSHUA GILLMELT DO [facility] 07-01-2023 20:08-0500 Heart rate 98 /min JOSHUA FROMMELT DO [facility] 07-01-2023 20:08-0500 Reason For Taking VItal Signs JOSHUA FROMMELT DO [facility] 07-01-2023 20:08-0500 Respiratory rate 22 /min JOSHUA FERNANDEZ DO [facility] 07-01-2023 20:08-0500 Systolic Blood Pressure Non-Invasive 199 mm[Hg] JOSHUA FERNANDEZ DO [facility] 07-01-2023 19:38-0500 Body height 165.1 cm JOSHUA FERNANDEZ [employer] [facility] 07-01-2023 19:38-0500 Body temperature 98.42 [degF] JOSHUA FERNANDEZ DO [facility] 07-01-2023 19:38-0500 Body weight 75 kg JOSHUA HAMILTONGalavantier [facility] 07-01-2023 19:38-0500 Heart rate 111 /min JOSHUA FERNANDEZ [employer] [facility] 06-05-2023 13:53-0500 Body temperature 98 [degF] Dr. Ivette Welsh Work Phone: [facility] 06-05-2023 13:53-0500 Diastolic blood pressure 86 mm[Hg] Dr. Ivette Welsh Work Phone: [facility] 06-05-2023 13:53-0500 Heart rate 102 /min Dr. Ivette Welsh Work Phone: [facility] 06-05-2023 13:53-0500 Respiratory rate 18 /min Dr. Ivette Welsh Work Phone: [facility] 06-05-2023 13:53-0500 SaO2% (BldA) [Mass fraction] 95 % Dr. Ivette Welsh Work Phone: [facility] 06-05-2023 13:53-0500 Systolic blood pressure 150 mm[Hg] Dr. Ivette Welsh Work Phone: [facility] 06-05-2023 12:10-0500 Inhaled oxygen flow rate 0 L/min Dr. Ivette Welsh Work Phone: 8(419)701-128322 [place] [address] 06-05-2023 00:39-0500 Body height 162.[address] Ivette Welsh Work Phone: 1(321)276-591676 [place] [address] 06-05-2023 00:39-0500 Body mass index (BMI) [Ratio] 28.9 kg/m2 Dr. Ivette Welsh Work Phone: 5(862)835-151276 [place] [address] 06-05-2023 00:39-0500 Body weight 76.[address] Ivette Welsh Work Phone: 8(887)478-945976 [place] [address] 06-05-2023 00:18-0500 Diastolic blood pressure 103 mm[Hg] Dr. Ivette Welsh Work Phone: 9(011)137-783076 [place] [address] 06-05-2023 00:18-0500 Heart rate 92 /min Dr. Ivette Welsh Work Phone: 0(726)651-592976 [place] [address] 06-05-2023 00:18-0500 Respiratory rate 25 /min Dr. Ivette Welsh Work Phone: 5(091)737-234576 [place] [address] 06-05-2023 00:18-0500 SaO2% (BldA) [Mass fraction] 97 % Dr. Ivette Welsh Work Phone: 3(196)727-501176 [place] [address] 06-05-2023 00:18-0500 Systolic blood pressure 185 mm[Hg] Dr. Ivette Welsh Work Phone: 2(292)281-504622 [place] [address] 06-04-2023 20:23-0500 Body height 162.[address] Ivette Welsh Work Phone: 5(962)669-423176 [place] [address] 06-04-2023 20:23-0500 Body mass index (BMI) [Ratio] 28.8 kg/m2 Dr. Ivette Welsh Work Phone: 4(052)576-441876 [place] [address] 06-04-2023 20:23-0500 Body temperature 98 [degF] Dr. Ivette Welsh Work Phone: 2(427)102-343776 [place] [address] 06-04-2023 20:23-0500 Body weight 76.[address] Ivette Welsh Work Phone: [facility] 02-22-2023 14:24-0400 Diastolic Blood Pressure Non-Invasive 89 1 ELKE GARCIA MD [facility] 02-22-2023 14:24-0400 Heart rate 83 /min ELKE GARCIA MD [facility] 02-22-2023 14:24-0400 Respiratory rate 18 /min ELKE GARCIA MD [facility] 02-22-2023 14:24-0400 Systolic Blood Pressure Non-Invasive 184 1 ELKE GARCIA MD [facility] 02-22-2023 13:57-0400 Diastolic Blood Pressure Non-Invasive 91 1 ELKE GARCIA MD [facility] 02-22-2023 13:57-0400 Heart rate 73 /min ELKE GARCIA MD [facility] 02-22-2023 13:57-0400 Respiratory rate 18 /min ELKE GARCIA MD [facility] 02-22-2023 13:57-0400 Systolic Blood Pressure Non-Invasive 179 1 ELKE GARCIA MD [facility] 02-22-2023 13:09-0400 Diastolic Blood Pressure Non-Invasive 106 1 ELKE GARCIA MD [facility] 02-22-2023 13:09-0400 Heart rate 87 /min ELKE GARCIA MD [facility] 02-22-2023 13:09-0400 Respiratory rate 20 /min ELKE GARCIA MD [facility] 02-22-2023 13:09-0400 Systolic Blood Pressure Non-Invasive 220 1 ELKE GARCIA MD [facility] 02-22-2023 12:19-0400 Reason For Taking VItal Signs ELKE GARCIA MD [facility] 02-22-2023 11:49-0400 Body height 165.1 cm ELKE GARCIA MD [facility] 02-22-2023 11:49-0400 Body temperature 98.24 [degF] ELKE GARCIA MD [facility] 02-22-2023 11:49-0400 Body weight 75.6 kg ELKE GARCIA MD [facility] 02-22-2023 11:49-0400 Heart rate 92 /min ELKE GARCIA MD [facility] 02-18-2023 10:20-0400 Diastolic blood pressure 98 mm[Hg] Ivette Welsh MD Work Phone: [facility] 02-18-2023 10:20-0400 Systolic blood pressure 154 mm[Hg] Ivette Welsh MD Work Phone: [facility] 02-18-2023 10:18-0400 Body weight 76.75 kg Ivette Welsh MD Work Phone: [facility] 02-18-2023 10:18-0400 Heart rate 98 /min Ivette Welsh MD Work Phone: [facility] 02-18-2023 10:18-0400 Respiratory rate 20 /min Ivette Welsh MD Work Phone: [facility] 02-11-2023 09:00-0400 Body temperature 97.8 [degF] Dr. Ivette Welsh Work Phone: 1(126)212-400776 [place] [address] 02-11-2023 09:00-0400 Diastolic blood pressure 89 mm[Hg] Dr. Ivette Welsh Work Phone: 5(928)868-133076 [place] [address] 02-11-2023 09:00-0400 Heart rate 89 /min Dr. Ivette Welsh Work Phone: 2(690)717-291776 [place] [address] 02-11-2023 09:00-0400 Respiratory rate 16 /min Dr. Ivette Welsh Work Phone: 5(968)061-584176 [place] [address] 02-11-2023 09:00-0400 SaO2% (BldA) [Mass fraction] 96 % Dr. Ivette Welsh Work Phone: 6(706)896-028876 [place] [address] 02-11-2023 09:00-0400 Systolic blood pressure 132 mm[Hg] Dr. Ivette Welsh Work Phone: 7(031)317-477976 [place] [address] 02-11-2023 06:37-0400 Heart rate 82 /min Dr. Ivette Welsh Work Phone: 4(167)494-339576 [place] [address] 02-11-2023 06:37-0400 Respiratory rate 20 /min Dr. Ivette Welsh Work Phone: 9(355)352-021976 [place] [address] 02-11-2023 06:37-0400 SaO2% (BldA) [Mass fraction] 91 % Dr. Ivette Welsh Work Phone: 6(952)302-172176 [place] [address] 02-11-2023 05:45-0400 Body mass index (BMI) [Ratio] 28.3 kg/m2 Dr. Ivette Welsh Work Phone: 8(034)755-049976 [place] [address] 02-11-2023 05:45-0400 Body weight 75.[address] Ivette Welsh Work Phone: [phone] [place] [address] 02-11-2023 04:10-0400 Body temperature 97.5 [degF] Dr. Ivette Welsh Work Phone: [phone] [place] [address] 02-11-2023 04:10-0400 Diastolic blood pressure 82 mm[Hg] Dr. Ivette Welsh Work Phone: [phone] [place] [address] 02-11-2023 04:10-0400 Systolic blood pressure 130 mm[Hg] Dr. Ivette Welsh Work Phone: [facility] 02-10-2023 08:24-0400 Inhaled oxygen flow rate 1 L/min Dr. Ivette Welsh Work Phone: [facility] 02-08-2023 16:09-0400 Body height 162.[address] Ivette Welsh Work Phone: [facility] 12-30-2022 20:33-0400 Body height 162.56 cm [facility] 12-30-2022 20:33-0400 Body mass index (BMI) [Ratio] 30.4 kg/m2 [facility] 12-30-2022 20:33-0400 Body temperature 98 [degF] [facility] 12-30-2022 20:33-0400 Body weight 80.3 kg [facility] 12-30-2022 20:33-0400 Diastolic blood pressure 100 mm[Hg] [facility] 12-30-2022 20:33-0400 Heart rate 102 /min [facility] 12-30-2022 20:33-0400 Respiratory rate 18 /min [facility] 12-30-2022 20:33-0400 SaO2% (BldA) [Mass fraction] 100 % [facility] 12-30-2022 20:33-0400 Systolic blood pressure 164 mm[Hg] [facility] 11-16-2022 08:16-0400 Body temperature 98.1 [degF] [facility] 11-16-2022 08:16-0400 Diastolic blood pressure 81 mm[Hg] [facility] 11-16-2022 08:16-0400 Heart rate 88 /min [facility] 11-16-2022 08:16-0400 Respiratory rate 16 /min [facility] 11-16-2022 08:16-0400 SaO2% (BldA) [Mass fraction] 98 % [facility] 11-16-2022 08:16-0400 Systolic blood pressure 143 mm[Hg] [facility] 11-16-2022 02:22-0400 Body height 162.56 cm [facility] 11-16-2022 02:22-0400 Body mass index (BMI) [Ratio] 31.3 kg/m2 [facility] 11-16-2022 02:22-0400 Body weight 82.8 kg [facility] 10-12-2022 00:15-0400 Diastolic blood pressure 84 mm[Hg] [facility] 10-12-2022 00:15-0400 Heart rate 85 /min [facility] 10-12-2022 00:15-0400 Respiratory rate 15 /min [facility] 10-12-2022 00:15-0400 SaO2% (BldA) [Mass fraction] 98 % [facility] 10-12-2022 00:15-0400 Systolic blood pressure 143 mm[Hg] [facility] 10-11-2022 22:03-0400 Body mass index (BMI) [Ratio] 30.5 kg/m2 [facility] 10-11-2022 22:03-0400 Body weight 80.8 kg [facility] 10-11-2022 20:41-0400 Body height 162.56 cm [facility] 10-11-2022 20:41-0400 Body temperature 97.7 [degF] [facility] 09-09-2022 05:58-0500 Diastolic blood pressure 87 mm[Hg] [facility] 09-09-2022 05:58-0500 Heart rate 75 /min [facility] 09-09-2022 05:58-0500 Respiratory rate 20 /min [facility] 09-09-2022 05:58-0500 SaO2% (BldA) [Mass fraction] 96 % [facility] 09-09-2022 05:58-0500 Systolic blood pressure 156 mm[Hg] [facility] 09-09-2022 02:50-0500 Body height 162.56 cm [facility] 09-09-2022 02:50-0500 Body mass index (BMI) [Ratio] 30.9 kg/m2 [facility] 09-09-2022 02:50-0500 Body temperature 96.9 [degF] [facility] 09-09-2022 02:50-0500 Body weight 81.6 kg [facility] 01-13-2017 14:13-0400 BMI (Body Mass Index) 35.27 kg/m2 Caren Sujataho MARKETING RECRUITER [facility] [employer] [facility] Work Phone: 01-13-2017 14:13-0400 Body Temperature 98.8 [degF] Caren Yensho MARKETING RECRUITER [facility] [employer] Work Phone: 01-13-2017 14:13-0400 BP Diastolic 102 mm[Hg] Caren Yensho MARKETING RECRUITER [facility] [employer] Work Phone: 01-13-2017 14:13-0400 BP Systolic 140 mm[Hg] Caren Yensho MARKETING RECRUITER [facility] [employer] Work Phone: 01-13-2017 14:13-0400 Height 165.1 cm Caren Yensho MARKETING RECRUITER [facility] [employer] Work Phone: 01-13-2017 14:13-0400 Pulse (Heart Rate) 90 /min Caren Yensho MARKETING RECRUITER [facility] [employer] [facility] Work Phone: 01-13-2017 14:13-0400 Pulse Oximetry 98 % Caren Hilarionsho MARKETING RECRUITER [facility] Phone: 01-13-2017 14:13-0400 Respiratory Rate 18 /min Caren Hilarionsho MARKETING RECRUITER [facility] [employer] Work Phone: 01-13-2017 14:13-0400 Weight 96.16 kg Caren Yensho MARKETING RECRUITER [facility] [employer] [facility] Work Phone: Encounters Encounter Date Encounter Type Care Provider Facility Start: 01-09-2025 Evaluation and management of inpatient Dr. Albert Hartmnan DO -Medical Surgical 3 Work Phone: Start: 01-04-2025 End: 01-05-2025 Emergency department patient visit Dr. Ivette Welsh MD Work Phone: -Emergency Department Work Phone: Start: 11-02-2024 End: 11-02-2024 Refill Ivette Welsh MD Work Phone: [facility] [place] Comment on above: Refill Request Start: 09-26-2024 End: 10-27-2024 ambulatory Ivette Welsh MD Work Phone: [facility] [place] Start: 08-28-2024 ambulatory Idaliajemal Hays Fa cility:[facility] Start: 08-24-2024 End: 08-24-2024 Telephone encounter Damon TORRES Work Phone: [facility] Comment on above: Results Start: 08-23-2024 End: 08-23-2024 ambulatory IVETTE WELSH Facility:[facility] Start: 08-23-2024 End: 08-23-2024 Patient encounter procedure Marcy Anthony APRN.JIG BORE TOOL MAKER Work Phone: [facility] Comment on above: Sore throat (Primary Dx); URI, acute Start: 07-24-2024 End: 07-24-2024 ambulatory IVETTE WELSH Facility:[facility] Start: 07-24-2024 End: 07-24-2024 Patient encounter procedure Ivette Welsh MD Work Phone: [facility] [place] Comment on above: Hospital discharge f ollow-up (Primary Dx); Dysphagia, unspecified type; Chronic obstructive pulmonary disease, unspecified COPD type (HCC); Bacterial pneumonia; Sore throat Start: 07-21-2024 End: 07-21-2024 Telephone encounter Ivette Welsh MD Work Phone: [facility] [place] Start: 07-18-2024 End: 07-18-2024 Patient Outreach lEena Lopez MA [facility] [place] Comment on above: Transition Of Care Start: 07-17-2024 ambulatory Ivette Welsh Facilit y:[facility] Start: 07-15-2024 ambulatory Albert Palacios ty:[facility] Start: 07-15-2024 End: 07-17-2024 Evaluation and management of inpatient Albert Hartmann Facility:[facility] Start: 07-12-2024 End: 07-12-2024 Emergency department patient visit KELLIE MARTINEZ MD [facility] Start: 07-05-2024 End: 07-05-2024 ambulatory Idalia Murrieta MA [facility] Start: 07-05-2024 End: 07-05-2024 Patient encounter procedure Idalia Murrieta MA [facility] Comment on above: Population Health Na vigation Outreach ([facility] ) Start: 05-15-2024 End: 05-15-2024 ambulatory Idalia Murrieta MA [facility] Start: 05-15-2024 End: 05-15-2024 Patient encounter procedure Idalia Murrieta MA [facility] Comment on above: Population Health Na vigation Outreach ([facility] [place] / /) Start: 04-28-2024 End: 04-28-2024 Emergency department patient visit [facility] Facility:[facility] Start: 02-25-2024 ambulatory Idalia Murrieta MA [facility] Start: 02-25-2024 Patient encounter procedure Idalia Murrieta MA [facility] Comment on above: Population Health Na vigation Outreach ([facility] [place] ) Start: 01-04-2024 ambulatory Idalialara Murrieta MA [facility] Start: 01-04-2024 Patient encounter procedure Idalia Murrieta MA [facility] Comment on above: Population Health Na vigation Outreach ([facility] [place]) Start: 12-07-2023 ambulatory Idalia Caty Murrieta MA [facility] Start: 12-07-2023 Patient encounter procedure Idalia Murrieta MA [facility] Comment on above: Population Health Na vigation Outreach ([facility] [place]/ //) Start: 10-29-2023 ambulatory Idalia L Janki MA [facility] Comment on above: Population Health Na vigation Outreach ([employer]) Start: 10-27-2023 ambulatory Ivette noe MD Work Phone: Internal [facility] Start: 07-01-2023 End: 07-02-2023 Emergency department patient visit KENISHA ABBASI MD Facility:[facility] Start: 07-01-2023 End: 07-01-2023 Emergency department patient visit JOSHUA FERNANDEZ DO [facility] Start: 06-18-2023 Refill Ivetet noe MD Work Phone: [facility] Comment on above: Refill Request Start: 06-05-2023 Non-patient / Non-visit Dr. Jessie Welsh Work Phone: [facility] Work Phone: Start: 06-04-2023 Non-patient / Non-visit Dr. Jessie Welsh Work Phone: [facility] Work Phone: Start: 06-04-2023 End: 06-05-2023 Evaluation and management of inpatient Dr. Ivette Welsh Work Phone: [facility]-Progressive Care Unit Work Phone: Start: 06-04-2023 End: 06-05-[address] Ivette Welsh Work Phone: [facility] Work Phone: Start: 05-19-2023 ambulatory Radha Victoria RN [facility] Start: 05-19-2023 Follow-up encounter Radha Robledo Rigging Engineer Management Comment on above: Transition Of Care ( TCM follow up) Start: 05-12-2023 ambulatory Damaris valdes RN [facility] Start: 05-12-2023 Follow-up encounter Damaris Francis RN [employer] Comment on above: Transition Of Care ( TCM follow up ) Start: 05-03-2023 Patient Outreach Meli Olsen RN [employer] Comment on above: Transition Of Care ( Initial Outreach D/C Jeronimo 05/01/23 - LM x 2 days ) Start: 04-29-2023 End: 05-01-2023 Evaluation and management of inpatient IVETTE WELSH Facility:[id number] Start: 02-22-2023 End: 02-22-2023 Emergency department patient visit ELKE GARCIA MD Facility:[facility] Start: 02-22-2023 End: 02-22-2023 Emergency department patient visit ELKE GARCIA MD [facility] Start: 02-18-2023 End: 02-18-2023 Patient encounter procedure Ivette Welsh MD Work Phone: [facility] Comment on above: Hospital discharge f ollow-up (Primary Dx); Acute pyelonephritis; Chronic obstructive pulmonary disease, unspecified COPD type (HCC); Dysphagia, unspecified type Start: 02-11-2023 Non-patient / Non-visit Dr. Jessie Welsh Work Phone: [facility] Work Phone: Start: 02-10-2023 Non-patient / Non-visit Dr. Jessie Welsh Work Phone: [facility] Work Phone: Start: 02-09-2023 Non-patient / Non-visit Dr. Jessie Welsh Work Phone: [facility] Work Phone: Start: 02-08-2023 End: 02-11-2023 Evaluation and management of inpatient Dr. Ivette Welsh Work Phone: [facility]-Medical Surgical 3 Work Phone: Start: 12-30-2022 End: 12-30-2022 Emergency department patient visit [facility]-Emergency Department Start: 12-21-2022 Refill Ivette noe MD Work Phone: [facility] Comment on above: Refill Request Start: 11-18-2022 ambulatory Ivette noe MD Work Phone: Internal Medicine [facility] Start: 11-16-2022 End: 11-16-2022 Emergency department patient visit [facility]-Emergency Department Start: 11-13-2022 End: 11-13-2022 Subsequent hospital visit by physician [facility] Work Phone: Radiology Comment on above: Acute cough [R05.1] Start: 10-11-2022 End: 10-12-2022 [facility] Start: 10-01-2022 Refill Jagdeep ELDRIDGE RN.JIG BORE TOOL MAKER, DNP Work Phone: [facility] Comment on above: Refill Request Start: 09-09-2022 End: 09-09-2022 Emergency department patient visit [facility]-Emergency Department Start: 06-29-2022 ambulatory Susanna Lazar [facility] Comment on above: Population Health Na vigation Outreach (HCC) Start: 06-24-2022 ambulatory Jacquie Cortez [facility] Comment on above: Allied Health Visit Start: 04-02-2017 End: 04-02-2017 Ambulatory BRENT (PAC) [facility] Procedures Date Procedure Procedure Detail Performing Clinician Start: 01-09-2025 CT angiography of ch est with contrast Dr. Ivette Welsh MD Work Phone: Start: 01-08-2025 Plain chest X-ray Dr. Sergei Welsh MD Work Phone: Start: 01-08-2025 D-dimer assay, quantitative Dr. Ivette Welsh MD Work Phone: Comment on above: D-Dimer ELEVATED (>0 .49): Additional studies and clinicalassessments are indicated to conclude diagnosis of:Deep Vein Thrombosis (DVT) or Pulmonary Embolism (PE)CRITICAL VALUE CALLED TO [id number]/24/25 0023 Shant Izquierdo.RESULTS READ BACK BY SAME. Start: 01-08-[address] Ivette Welsh MD Work Phone: Start: 01-04-2025 X-ray of chest, PA a [...] 08-23-2024 STREP A MOLECULAR (POC) Juhi Newell FOOD AND DRUG INSPECTOR.JIG BORE TOOL MAKER Work Phone: Start: 06-04-2023 CT angiography of [...] Plain chest X-ray Start: 11-13-2022 Radiologic exam chest 2 views Damon TORRES Work Phone: Start: 10-11-2022 MRI of lower extremity Start: 10-11-2022 Radiography of ankle Start: 10-11-2022 X-ray of both feet Start: 09-09-2022 Computed tomography of abdomen and pelvis with intravenous contrast Start: 04-26-2021 Ecg routine ecg w/le ast 12 lds i&r only Start: 03-31-2019 Lipid 1996 panel - S viridiana or Plasma Meli Olsen RN Start: 02-08-2016 Colonoscopy Jacquie Cortez [facility] Start: 10-17-2013 Mammography Jacquie Cortez [facility] Cholecystectomy ELKE James MD Ligation of fallopian tube A RADHA GARCIA MD Plan of Treatment Date Care Activity Detail Author Start: 05-01-2026 Diabetes Screening Diabetes Screenin g [facility] Start: 02-07-2026 Colonoscopy COLONOSCOPY [facility] Start: 02-07-2026 COLORECTAL CANCER SCREENING COLORECTAL CANCER SCREENING [facility] Start: 02-07-2026 Screening for malign ant neoplasm of colon [facility] Start: 07-24-2025 Annual PCP Team Manager Forensic lukasz Disease Visit Annual PCP Team Chronic Disease Visit [facility] Start: 01-09-2025 [facility] Start: 01-09-2025 [facility] Start: 01-09-2025 [facility] Start: 01-09-2025 Continuous positive airway pressure ventilation treatment [facility] Start: 01-09-2025 Legionella pneumophi la Ag [Presence] in Urine [facility] Start: 01-09-2025 Streptococcus pneumo niae antigen assay [facility] Start: 01-09-2025 Thyroid stimulating hormone measurement [facility] Start: 01-09-2025 Urinalysis complete panel - Urine [facility] Start: 01-09-2025 Verification routine [facility] Start: 01-09-2025 Admission procedure [facility] Start: 01-09-2025 Hospital admission, emergency, from emergency room, medical nature [facility] Start: 01-08-2025 [facility] Start: 01-08-2025 End: 01-08-2025 [facility] Start: 01-08-2025 Bacteria identified in Blood by Culture Blood Culture [facility] Start: 01-05-2025 [facility] Start: 10-23-2024 End: 10-23-2024 Patient encounter procedure 10/23/2024 2:40 PM EDT Office Visit Family [facility] [place] [address] [facility] [place] [address] Ivette Welsh MD [address] [place] [address] 3 month follow up [facility] Comment on above: 3 month follow up Start: 07-24-2024 End: 07-24-2024 Patient encounter procedure 07/24/2024 2:00 PM EST Office Visit Family [facility] [place] [address] [place] [address] Ivette Welsh MD [address] [place] [address] [facility] f/u Pnemonia/asthma 07/15-07/17 [facility] Comment on above: [facility] f/u Pnemonia/ast hma 07/15-07/17 Start: 03-31-2024 Lipid 1996 panel - S viridiana or Plasma Lipid Screening [facility] Start: 03-31-2024 Lipid [address] Lipid Screening [facility] Start: 03-31-2024 LIPID SCREEN LIPID SCREEN [facility] Start: 03-19-2024 Influenza vaccination C [facility] Start: 02-19-2024 ANNUAL PCP TEAM HOSPITAL EDUCATION COORDINATOR LUKASZ DISEASE VISIT ANNUAL PCP TEAM CHRONIC DISEASE VISIT [facility] Start: 06-05-2023 Patient discharge [facility] Start: 06-05-2023 Ambulation without limitation [facility] Start: 06-05-2023 Assessment of risk o f venous thromboembolism [facility] Start: 06-05-2023 Insertion of cathete r into peripheral vein [facility] Start: 06-05-2023 Measuring intake and output [facility] Start: 06-05-2023 Oxygen therapy [facility] Start: 06-05-2023 Providing care accor ding to standard [facility] Start: 06-05-2023 [facility] Start: 06-05-2023 Admission procedure [facility] Start: 06-05-2023 Following clinical pathway protocol [facility] Start: 06-05-2023 Patient referral to dietitian [facility] Start: 06-04-2023 [facility] Start: 06-04-2023 Hospital admission, emergency, from emergency room, medical nature [facility] Start: 06-04-2023 Blood culture [facility] Start: 06-04-2023 Blood culture [facility] Start: 06-04-2023 Bacteria identified in Blood by Culture Blood Culture [facility] Start: 03-19-2023 Influenza vaccination C [facility] Start: 02-18-2023 End: 04-20-2023 Urinalysis complete panel - Urine URINALYSIS WITH MICROSCOPIC, REFLEX CULTURE Lab Routine Acute pyelonephritis Expected: 02/18/2023, Expires: 04/20/2023 [facility] Work Phone: Comment on above: Expected: 02/18/2023 , Expires: 04/20/2023 Start: 02-11-2023 Patient discharge [facility] Start: 02-10-2023 [facility] Start: 02-09-2023 Following clinical pathway protocol [facility] Start: 02-08-2023 Ambulation without limitation [facility] Start: 02-08-2023 Assessment of risk o f venous thromboembolism [facility] Start: 02-08-2023 Inhalation therapy procedure [facility] Start: 02-08-2023 Insertion of cathete r into peripheral vein [facility] Start: 02-08-2023 Measuring intake and output [facility] Start: 02-08-2023 Oxygen therapy [facility] Start: 02-08-2023 Providing care accor ding to standard [facility] Start: 02-08-2023 [facility] Start: 02-08-2023 Following clinical pathway protocol [facility] Start: 02-08-2023 Admission procedure [facility] Start: 02-08-2023 Blood culture [facility] Start: 02-08-2023 Consultation [facility] Start: 11-16-2022 [facility] Start: 09-29-2022 ANNUAL PCP TEAM HOSPITAL EDUCATION COORDINATOR LUKASZ DISEASE VISIT ANNUAL PCP TEAM CHRONIC DISEASE VISIT [facility] Start: 03-31-2022 DIABETES SCREEN DIABETES SCREEN [facility] Start: 03-19-2022 Influenza vaccination INFLUENZA (#1) [facility] Start: 03-03-2022 Urine microalbumin profile [facility] Start: 08-04-2017 HPV TESTING HPV TESTING [facility] Start: 08-04-2017 PAP TESTING PAP TESTING [facility] Start: 08-04-2017 Screening for malign ant neoplasm of cervix [facility] Start: 02-26-2017 End: 02-26-2017 Appointment Appointment [facility] Phone: Start: 02-24-2017 End: 02-24-2017 Appointment Appointment [facility] Phone: Start: 01-13-2017 End: 01-13-2017 Appointment Appointment [facility] Phone: Start: 01-13-2017 End: 01-13-2017 DMB DMB [facility] Phone: Start: 01-13-2017 End: 01-13-2017 Follow Up Appt 6 weeks Follow Up Appt 6 weeks [facility] Phone: Start: 01-13-2017 End: 01-13-2017 Pulmonary Function Test - complete Pulmonary Function Test - complete [facility] Phone: Start: 01-13-2017 End: 01-13-2017 Pulmonary stress test/simple Pulmonary stress testing; simple (eg, 6-minute walk) [facility] Phone: Start: 2016 SHINGRIX VACCINE (1 of 2) LOPEZ GRIX VACCINE (1 of 2) [facility] Start: 10-17-2014 Mammography [facility] Start: 10-17-2014 Screening for malign ant neoplasm of breast Mammogram Screening [facility] Start: 08-24-2013 FECAL OCCULT BLOOD FECAL OCCULT BLOO D [facility] Start: 08-24-2013 Screening for malign ant neoplasm of colon Fecal Occult Blood [facility] Start: 2011 COLOGUARD (FIT-DNA) COLOGUARD (FIT-D NA) [facility] Start: [address] COLONOGRAPHY [facility] Start: 2011 Screening for malign ant neoplasm of colon [facility] Start: 2011 SIGMOIDOSCOPY SIGMOIDOSCOPY [facility] Start: 1996 Zoledronic acid therapy ALPHA- 1 ANTITRYPSIN DEFICIENCY SCREENING [facility] Start: 1985 Hepatitis B Vaccine (1 of 3 - 19+ 3-dose series) Hepatitis B Vaccine (1 of 3 - 19+ 3-dose series) [facility] Start: 1985 Pneumococcal Vaccine : 50+ (1 of 2 - PCV) Pneumococcal Vaccine: 50+ (1 of 2 - PCV) [facility] Start: 1984 BP CONTROLLED (<130/80) BP CONTROLLE D (<130/80) [facility] Start: 1972 PNEUMOCOCCAL (1 - PCV) PNEUMOCOCCAL (1 - PCV) [facility] Start: 1972 Pneumococcal vaccination [facility] Start: 1966 HEPATITIS B (1 of 3 - 3-dose series) HEPATITIS B (1 of 3 - 3-dose series) [facility] Start: 1966 Hepatitis B Vaccine (1 of 3 - 3-dose series) Hepatitis B Vaccine (1 of 3 - 3-dose series) [facility] COVID & INFLUENZA A/ B & RSV PCR, ROUTINE COVID & INFLUENZA A/B & RSV PCR, ROUTINE Microbiology Routine Sore throat URI, acute Ordered: 08/23/2024 [facility] Work Phone: Comment on above: Ordered: 08/23/2024 End: 10-26-2025 DBT Breast - bilateral screening DARIA SCREENING W DANTE Radiology Routine Encounter for screening mammogram for breast cancer 1 Occurrences starting 09/26/2024 until 10/26/2025 [facility] Work Phone: Comment on above: 1 Occurrences starti ng 09/26/2024 until 10/26/2025 Magnesium measurement [facility] End: 12-18-2023 DARIA SCREENING DARIA SCREENING Radiology Routine Encounter for screening mammogram for breast cancer 1 Occurrences starting 11/18/2022 until 12/18/2023 [facility] Work Phone: Comment on above: 1 Occurrences starti ng 11/18/2022 until 12/18/2023 End: 11-25-2024 MG Breast Screening DARIA SCREENING Radiology Routine Encounter for screening mammogram for breast cancer 1 Occurrences starting 10/27/2023 until 11/25/2024 [facility] Work Phone: Comment on above: 1 Occurrences starti ng 10/27/2023 until 11/25/2024 Patient Education [facility] Work Phone: Patient referral [facility] Work Phone: Respiratory pathogen s DNA and RNA panel - Respiratory specimen by SONG with probe detection [facility] Troponin T.cardiac [Mass/volume] in Serum or Plasma by High sensitivity method [facility] Troponin T.cardiac [Mass/volume] in Serum or Plasma by High sensitivity method [facility] Troponin T.cardiac [Mass/volume] in Serum or Plasma by High sensitivity method [facility] Immunizations Immunization Date Immunization Notes Care Provider Sweetie murillo 10-08-2017 influenza virus vacc ine, unspecified formulation Meli Olsen RN [facility] 03-03-2012 tetanus toxoid, redu ankita diphtheria toxoid, and acellular pertussis vaccine, adsorbed Jacquie Koepf [facility] Payers Date Payer Category Payer Medicare (Managed Care) [employer] [id number] 2024 Private Health Insurance [id number] 2024 Self-pay [id number] 2023 Medicare [id number] 2023 Private Health Insurance [facility] [id number] 2022 Unknown [id number] 2022 Unknown [id number]. [id number] 2018 Medicaid [id number] 2014 Medicaid [id number] 2014 Unknown [id number] 1965 Unknown [id number] .[id number]. 627 1965 Unknown [id number] .[id number]. 627 1966 Unknown [id number] .[id number]. 627 Medicare MEDICARE PART A B [id number] Unknown [id number] 2.16.840.1.749794.3.579.2. 462 Unknown [id number] [id number]. 462 Unknown [id number] 2.16.840.1.402857.3.579.2. 462 Unknown [id number] 2.16.840.1.290265.3.579.2. 462 Unknown [id number] 2.840.1.034005.3.579.2. 462 Unknown [id number] 2.16.840.1.413495.3.579.2. 462 Unknown [id number] 2.16.840.1.776639.3.579.2. 462 Unknown [id number] 2.16.840.1.418914.3.579.2. 462 Unknown [id number] 2.16.840.1.297212.3.579.2. 462 Unknown [id number]. 462 Social History Date Type Detail Facility Start: 12-27-1984 End: 08-23-2024 Tobacco smoking status NHIS Occasional tobacco smoker [facility] Work Phone: Start: 12-27-1984 History of tobacco use Cigarette Smo ker [facility] Work Phone: Start: 11-29-2015 End: 08-23-2024 Tobacco use and exposure Smokeless tobacco non-user [facility] Work Phone: Start: 03-04-2022 End: 08-23-2024 Alcohol intake Current drinker of alcohol (finding) [facility] Start: 11-29-2015 End: 11-13-2022 Tobacco Comment 2-3 cigarettes daily, 11/29/2015. [facility] Start: 11-29-2015 Alcohol Comment Quit drinking ETOH, which was getting to be a problem. [facility] Start: 1965 Sex Assigned At Not on file [facility] Start: 09-09-2022 End: 06-05-2023 Tobacco smoking status NEIS Unknown if ever smoked [facility] Start: 12-03-2019 None [facility] Start: 09-17-2019 With Family [facility] Start: 11-24-2020 Cigarettes [facility] Start: 1965 Sex Assigned At Female [facility] Start: 02-18-2023 End: 07-24-2024 History of Social function [facility] Start: 02-18-2023 End: 07-24-2024 Tobacco use panel [facility] Adult Depression Screening Assessment 5 [facility] Start: 02-22-2023 Tobacco smoking status Heavy t obacco smoker (finding) [facility] Sex Assigned At [facility] Start: 12-07-2011 Sex Female (finding) [facility] Start: 01-04-2025 End: 01-08-2025 Tobacco smoking status NHIS Smokes tobacco daily (finding) [facility] Goals Date Patient Goal Desired Activity /State Personal health goal Functional Status Date Assessment Result Facility 07-12-2024 Functional Status ID band on, Call device within reach, Bed in low position [facility] 07-01-2023 Functional Status Standard Safet y ID band on, Allergy Band on, Call device within reach, Bed in low position, Wheels locked, Upper/Half-Length side-rails up, Phone within reach, personal items within reach, Bedside Cart Locked [facility] 06-05-2023 Functional status Ambulates;Up ad abad [facility] Work Phone: 02-22-2023 Functional Status Up ad abad [facility] 02-22-2023 Functional Status ID band on, Call device within reach, Bed in low position, Wheels locked, Bedside Cart Locked, Safety level maintained [facility] 02-11-2023 Functional status Ambulates [facility] Work Phone: 06-05-2016 Are you deaf, or do you have serious difficulty hearing No 06/05/2016 3:07 PM Kenisha Madera III, MD No [facility] 06-05-2016 Are you blind, or do you have serious difficulty seeing, even when wearing glasses No 06/05/2016 3:07 PM Kenisha Madera III, MD No [facility] 06-05-2016 Do you have serious difficulty walking or climbing stairs No 06/05/2016 3:07 PM Kenisha Madera III, MD No [facility] 06-05-2016 Do you have difficul ty dressing or bathing No 06/05/2016 3:07 PM Kenisha Madera III, MD No [facility] 06-05-2016 Because of a physica l, mental, or emotional condition, do you have difficulty doing errands alone such as visiting a physician's office or shopping No 06/05/2016 3:07 PM Kenisha Madera III, MD No [facility] Mental Status Date Assessment Result Facility 07-12-2024 Mental Status Oriented x 4 [facility] 07-01-2023 Mental Status Orientation Oriented x 4 [facility] 06-05-2023 Cognitive function Voice/Name [facility] Work Phone: 02-22-2023 Mental Status Orientation Oriented x 4 [facility] 02-22-2023 Mental Status [facility] 02-11-2023 Cognitive function Voice/Name [facility] Work Phone: 06-05-2016 Because of a physica l, mental, or emotional condition, do you have serious difficulty concentrating, remembering, or making decisions No 06/05/2016 3:07 PM Kenisha Madera III, MD No [facility] Clinical Notes 06-05-2016 to 01-09-2025 Telephone Encounter - Ivette Welsh MD - 11/02/2024 9:09 AM EDTTelephone Encounter - Ivette Welsh MD - 11/02/2024 9:09 AM EDTPatient Instructions Note Date & Type Note Facility 01-09-2025 Radiology Diagnostic study note [facility] Imaging Services [address] [place] [address] [id number] CTA Chest W/WO Contrast MR#: [id number] Acct: [id number] Name: SAVANNAH IRVIN SRIDHAR Rep #: [id number] : 1965 F 59 From: Shelly Rodrigues MD PCP: Dr. Ivette Welsh MD Status: RE G ER Study:CTA Chest W/WO Contrast Date of Exam: 01/09/25 Exam# [id number] Ordering Dr: Nito Avendaño DO PROCEDURE: CTA CHEST W/WO CONTRAST 01/09/2025 REASON FOR EXAM: ELEVATED D-DIMER TECHNIQUE: CTA CHEST W/WO CONTRAST Multiplanar Sagittal and Coronal images were obtained. CONTRAST: Isovue 370 VOLUME: 100 mL One or more dose reduction techniques were used (e.g., Automated exposure control, adjustment of the mA and/or kV according to patient size, use of iterative reconstruction technique). RADIATION DOSE SUMMARY: CTDlvol: 13.04 mGy DLP: 485 mGycm COMPARISON: Chest radiograph on 01/08/2025. CT scan on 07/15/2024. FINDINGS: Centrilobular nodularity with multifocal airspace disease in the right lower lobe and to a lesser extent in the right middle and upper lobes, probably multifocal pneumonia. Prior cholecystectomy. Mildly prominent mediastinal and hilar lymph nodes are noted with the largest measuring 1.3 cm, probably reactive. Uncomplicated sliding hiatal hernia. No significant coronary artery calcifications. Normal enhancement of the main pulmonary artery and right and left pulmonary arteries. Normal enhancement of the bilateral peripheral pulmonary arteries. There is no demonstrated pulmonary embolism. Normal thoracic aorta and visualized great vessels. There is no demonstrated aortic dissection. Normal heart and pericardium. Normal visualized trachea and bronchi. Normal pleura. Normal remaining visualized upper abdomen. CT/CTA Chest W/WO Contrast IMPRESSION: Centrilobular nodularity with multifocal airspace disease in the right lower lobe and to a lesser extent in the right middle and upper lobes, probably multifocal pneumonia. Prior cholecystectomy. Mildly prominent mediastinal and hilar lymph nodes are noted with the largest measuring 1.3 cm, probably reactive. Uncomplicated sliding hiatal hernia. No significant coronary artery calcifications. No CT evidence of pulmonary embolus or aortic dissection. Reading Location: [place] [address] CC: Dr. Nito Avendaño DO; Dr. Ivette Welsh MD ~ Plumbing Technician: Signed [facility] 01-08-2025 Radiology Diagnostic study note [facility] Imaging Services [address], [place] [address] Chest 1 View (Portable) MR#: [id number] Acct: [id number] Name: SAVANNAH IRVIN SRIDHAR Rep #: [id number] : 1965 F 59 From: Afshan Hylton MD PCP: Dr. Ivette Welsh MD Status: RE G ER Study:Chest 1 View (Portable) Date of Exam: 01/08/25 Exam# [id number] Ordering Dr: Provider ,Ed P. PROCEDURE: CHEST 1 VIEW (PORTABLE) 01/08/2025 REASON FOR EXAM: SOB TECHNIQUE: Frontal view of the chest. COMPARISON: Chest radiograph on 01/04/2025, CT chest 07/15/2024 FINDINGS: Hardware: None Heart: Cardiac and mediastinal contours are stable. Aortic atherosclerosis. Lungs: Increased lung volumes with flattening of the hemidiaphragms. Increased interstitial markings, unchanged. No focal consolidation or pleural effusion. Nodular opacity in the right mid lung zone measuring 8 mm Bones: Degenerative changes are identified within the thoracic spine. RAD/Chest 1 View (Portable) IMPRESSION: 1. No acute cardiopulmonary abnormality. 2. Nodular opacity in the right mid lung zone measuring 8 mm. Consider nonemergent chest CT in this patient with emphysema. Reading Location: [facility] CC: Dr. Ivette Welsh MD; ED PHYSICIAN PROVIDER ~ Plumbing Technician: Signed [facility] 01-04-2025 Radiology Diagnostic study note [facility] Imaging Services [address] [place] [address] 11857 Chest PA and Lateral MR#: [id number] Acct: [id number] Name: SAVANNAH IRVIN Rep #: [id number] : 1965 F 59 From: Bernardino Meng MD PCP: Dr. Ivette Welsh MD Status: RE G ER Study:Chest PA and Lateral Date of Exam: 01/04/25 Exam# [id number] Ordering Dr: Kwadwo Marie DO PROCEDURE: CHEST PA AND LATERAL 01/04/2025 REASON FOR EXAM: SHORTNESS OF BREATH TECHNIQUE: CHEST PA AND LATERAL COMPARISON: 07/15/2024. FINDINGS: The heart is normal in size. The mediastinum is normal in contour. Hyperaerated lungs which may suggest COPD. The lungs are clear. No acute osseous abnormalities. RAD/Chest PA and Lateral IMPRESSION: NO ACUTE FINDINGS. Reading Location: [id number] CC: Dr. Kwadwo Hernandez DO; Dr. Ivette Welsh MD ~ Plumbing Technician: Signed [facility] 11-02-2024 Telephone encounter Note OK to refill as ordered Ivette Welsh MD [facility] 11-02-2024 Miscellaneous Notes OK to refill as [...] 2024 9:03 AM documented in this encounter [facility] 11-02-2024 Telephone encounter Note Pt reports she [...] Youssef RN November 02, 2024 9:03 AM [facility] 09-26-2024 Note Patient Outreach (FA MPWS) SAVANNAH IRVIN ([id number]) 1965 F Date Time Provider Department 09/26/24 [...] breast cancer [Z12.31] Order(s):DARIA SCREENING W DANTE [[id number]] Order #: [id number] FUTURE Prescriptions as of 10/27/2024 - sucralfate [...] hypoxia (HCC) [J*04/29/2023 07/24/2024 Encounter Status:Closed by EPIC, PRODUSER on 10/27/24 [facility] 08-24-2024 Telephone encounter Note Pt returned call and given provider's message below with verbalized understanding. Reviewed home care instructions with patient. [facility] 08-24-2024 Miscellaneous Notes Pt returned call and given provider's message below with verbalized understanding. Reviewed home care instructions with patient. Listed contact number for patient is not currently accepting calls, please try again later. Lindsay Muse MA Please let patient know she is negative for COVID flu and RSV. documented in this encounter [facility] 08-24-2024 Telephone encounter Note Listed contact number for patient is not currently accepting calls, please try again later. Lindsay Muse MA [facility] 08-24-2024 Telephone encounter Note Please let patient know she is negative for COVID flu and RSV. [facility] Work Phone: 08-23-2024 Instructions Marcy Anthony APRN.[employer] - 08/23/2024 4:43 PM EST Images from [...] you with PAXLOVID for the treatment of uhav-ew-fhqxesif coronavirus disease (COVID-19) caused by the SARS-CoV-2 [...] make PAXLOVID available for the treatment of ddnc-bf-obtbithr COVID-19 in adults and children 12 years [...] virus. COVID-19 illnesses have ranged from very bxem-lj-vwtpoo, including illness resulting in . While information [...] available under EUA for the treatment of moyd-lv-mqifcfua COVID-19 in adults and children 12 years [...] of using PAXLOVID to treat children with gkco-ym-xwdkxpnm COVID-19. What is the most important information [...] the medicines you take, including prescription and nsyx-ovq-bjcjhuy medicines, vitamins, and herbal supplements. Your healthcare [...] morning or evening, depending on when you hop picker your prescription, or as your healthcare [...] PAXLOVID is FDA-approved for the treatment of pquz-iw-uqtqhpgp COVID-19 in certain adults; however, there are not sufficient quantities of the approved presentations (i.e., dose packs) of PAXLOVID at this time. This EUA continues to authorize the emergency use of PAXLOVID for the approved patient population to ensure continued access in order to meet the public health need. VEKLURY (remdesivir) is FDA-approved for the treatment of dxsa-zn-vdwicnnr COVID-19 in certain adults and children. Talk with your healthcare provider to see if VEKLURY is appropriate for you. For information on the emergency use of other medicines that are authorized by FDA to treat people with COVID-19, please go to https://www.fda.gov/emergency-pr kthutkvnot-zxu-oedehtkl/lynn-segun beckfordo-zkvdbualxz-hye-policy-framewor k/nfugobbcx-vum-wxuqaqklvhghp. Your healthcare provider may talk with you [...] for examples of PAXLOVID Dose Packs) to sickweather at www.fda.gov/medTargeGen or call 6-782-WVV-1946 or you can report side effects to [employer] at the contact information provided below. How [...] PAXLOVID may also be found at https://www.fda.gov/emergency-pr hyqexrcicm-ixh-cyoomwhc/lynn-segun c-phimoftvsu-xiz-policy-framewor k/tyydfimtnb-odrqyz-obuvbgpzm. How can I learn more about COVID-19? Ask your healthcare provider. Visit https://www.cdc.gov/COVID19. Contact your local or state public health department. What is an Emergency Use Authorization (EUA)? The [place] FDA has made PAXLOVID available under an emergency access mechanism called an Emergency Use Authorization (EUA). The EUA is supported by a [place] of Health and Human Services (HHS) declaration [...] call the telephone number provided below. Website: www.JIZKT51uenrVl.[employer] Telephone number: (1-877-c19-pack) Distributed by [employer] [place] [address] [id number] Revised: 11/2022 documented in this encounter [facility] 08-23-2024 Note HNO ID: [id number] Author: MARCY ANTHONY APRN.[employer] Service: ? Author Type: Nurse Practitioner Type: Progress Notes Filed: 08/23/2024 17:25 Note Text: Subjective The history is provided by the patient. No historical interpreter was used. HPI Savannah Irvin is [...] have confirmed and edited as necessary, the [facility] Review of Systems Constitutional: Negative for [...] detail warranting prompt ER evaluation. Marcy Anthony APRN.[facility] 08-23-2024 History of Presen t illness Narrative Subjective The history is provided by the patient. No historical interpreter was used. HPI Savannah Irvin is [...] have confirmed and edited as necessary, the [facility] Review of Systems Constitutional: Negative for [...] detail warranting prompt ER evaluation. Marcy Anthony APRN.STEFANO documented in this encounter [facility] 07-24-2024 History of Presen t illness Narrative [...] HPI 7 Day TCM Pt went to [facility] ER on 07/15/24 for dizziness, tired, weak, [...] to quit smoking now. Below copied from [employer]: Chief Complaint: Dizziness Informant: patient Narrative Narrative: [...] She notes her daughter was sick over [place] and she was around her. She does [...] 07/16/24 01:37 Consult: Gastroenterology Routine Consulting Provider: [facility] Reason for Consult: suspected esophageal stenosis [...] having severe dysphagia feeling food getting stuck chcf down her esophagus and forcing herself to [...] Continue current medications. Follow with Gastro Dr. Asencio 3. Chronic obstructive pulmonary disease, unspecified COPD type (HCC) - ICD9: 496, ICD10: J44.9 Smoking cessation encouraged Continue current medications. Continue with Oxygen prn 4. Bacterial pneumonia - ICD9: 482.9, ICD10: J15.9 Improved Continue with Oxygen Prn 5. Sore throat - ICD9: 462, ICD10: J02.9 Start Protonix Continue with Carafate If continues follow up with Gastro Dr. Asencio Follow up in 3 months on COPD. I agree with the Chief Complaint, ROS, and Past Histories independently gathered by the clinical forestry support specialist and the remaining scribed note accurately describes my personal service to the patient. Ivette Welsh MD The documentation for this note was completed by Elena Lopez MA acting as scribe for Ivette Welsh MD. July 24, 2024 2:05 PM. Elena Lopez MA documented in this encounter [facility] 07-24-2024 Note HNO ID: [id number] Author: IVETTE WELSH MD Service: ? Author [...] HPI 7 Day TCM Pt went to [facility] ER on 07/15/24 for dizziness, tired, weak, [...] to quit smoking now. Below copied from [employer]: Chief Complaint: Dizziness Informant: patient Narrative Narrative: [...] the medial basilar (more content not included)... [facility] 07-21-2024 Telephone encounter Note Patient calls and is upset because the inhalers were not ordered on 07/18 like she asked. Advised patient that it looks like Dr. Welsh had sent in orders to [facility]. Called and spoke with Pharmacist at [facility]. Patient has prescription ready under a Savannah A. Irvin. Called and advised patient that prescription is ready under that name. Patient voices understanding. Rowan Amado RN [facility] 07-21-2024 Miscellaneous Notes Patient calls and is upset because the inhalers were not ordered on 07/18 like she asked. Advised patient that it looks like Dr. Welsh had sent in orders to [facility]. Called and spoke with Pharmacist at [facility]. Patient has prescription ready under a Savannah A. Irvin. Called and advised patient that prescription is ready under that name. Patient voices understanding. Rowan Amado RN documented in this encounter [facility] 07-18-2024 Note HNO ID: [id number] Author: ELENA LOPEZ MA Service: ? Author Type: Family Support Worker Type: Progress Notes Filed: 07/18/2024 09:38 Note Text: TRANSITION CARE MANAGEMENT (TCM) INITIAL CONTACT Family Support Worker Outreach Provider Action/FYI: 7 Day TCM Pt is feeling ok. Needs a refill on nebulizer solution and inhaler to [facility]. She states he has a sore [...] data to display SUMMARY: -Pt discharged from [facility] on 07/17/24. -Admitted for: dysphagia Do you have a hospital follow up appointment with your PCP? Appointment on 07/24/24 with PCP. Yes. Remind patient of appointment date, time, and location. If not within 14 calendar days of discharge - please reschedule accordingly. Below copied from [employer]: Chief Complaint: Dizziness Informant: patient Narrative Narrative: [...] She notes her daughter was sick over [place] and she was around her. She does [...] 07/16/24 01:37 Consult: Gastroenterology Routine Consulting Provider: [facility] Reason for Consult: suspected esophageal stenosis EMERGENT Consult: No MD Notified: Yes Date Notified: 07/16/24 Time No (more content not included)... [facility] 07-18-2024 History of Presen t illness Narrative TRANSITION CARE MANAGEMENT (TCM) INITIAL CONTACT Family Support Worker Outreach Provider Action/FYI: 7 Day TCM Pt is feeling ok. Needs a refill on nebulizer solution and inhaler to [facility]. She states he has a sore throat, asking if there is anything she can take for that, sprays, etc? Doesn't have any money to buy anything OTC. Schedule to see Dr. Friend, Gastro in 1 month. Initial contact with patient post discharge, spoke to patient. Patient identified by name and . TRANSITION CARE MANAGEMENT INITIAL OUTREACH DOCUMENTATION: No data to display SUMMARY: -Pt discharged from [facility] on 07/17/24. -Admitted for: dysphagia Do you have a hospital follow up appointment with your PCP? Appointment on 07/24/24 with PCP. Yes. Remind patient of appointment date, time, and location. If not within 14 calendar days of discharge - please reschedule accordingly. Below copied from [employer]: Chief Complaint: Dizziness Informant: patient Narrative Narrative: [...] She notes her daughter was sick over [place] and she was around her. She does [...] 07/16/24 01:37 Consult: Gastroenterology Routine Consulting Provider: [facility] Reason for Consult: suspected esophageal stenosis [...] having severe dysphagia feeling food getting stuck chcf down her esophagus and forcing herself to [...] provider to review documented in this encounter [facility] 07-18-2024 Note Patient Outreach (SWEETIE MENDEZ) SAVANNAH IRVIN ([id number]) 1965 F Date Time Provider Department 07/18/24 ELENA LOPEZ During your visit today, we recorded the following information about you: Elena Lopez MA 07/18/2024 9:38 AM Signed TRANSITION CARE MANAGEMENT (TCM) INITIAL CONTACT Family Support Worker Outreach Provider Action/FYI: 7 Day TCM Pt is feeling ok. Needs a refill on nebulizer solution and inhaler to [facility]. She states he has a sore [...] data to display SUMMARY: -Pt discharged from [facility] on 07/17/24. -Admitted for: dysphagia Do you have a hospital follow up appointment with your PCP? Appointment on 07/24/24 with PCP. Yes. Remind patient of appointment date, time, and location. If not within 14 calendar days of discharge - please reschedule accordingly. Below copied from [employer]: Chief Complaint: Dizziness Informant: patient Narrative Narrative: [...] She notes her daughter was sick over [place] and she was around her. She does [...] Consult: Gastroenterology Routine (more content not included)... [facility] 07-17-2024 Note [facility] Medical Records Department [address] [place] [address] Discharge Summary 07/17/24 1217 MR#: [id number] Acct: [id number] Name: SAVANNAH IRVIN SRIDHAR Rep #: [id number] : 1965 59 From: Jama Bustamante MD PCP: Dr. Ivette Welsh MD Status:ADM IN [id number] Prov[facility] Date of Admission: 07/15/24 Date of Discharge: 07/17/24 Primary Care Physician: Dr. Ivette Welsh MD Consultations 07/16/24 01:37 Consult: Gastroenterology Routine Consulting Provider: [facility] Reason for Consult: suspected esophageal stenosis [...] having severe dysphagia feeling food getting stuck chcf down her esophagus and forcing herself to [...] 0.3 mg (0.3 mL) IM X1 ##1 07/06/19 dextromethorphan-guaife (more content not included)... [facility] 07-12-2024 Hospital Discharg e instructions [...] products Chemicals or dyes in clothing, linen, phosphoric acid operator, hair dyes, soaps, iodine Many viruses and [...] damage the skin. Oral diphenhydramine is an yzne-thh-glonakj antihistamine sold at pharmacy and grocery stores. [...] hours, or as directed by your provider 8070-1742 [employer]. [address] [place] [address]. All rights reserved. This information is not intended as a substitute for professional medical care. Always follow your healthcare professional's instructions. Follow Up Care 07/12/2024 19:13:01 With:KENISHA ABBASI III, MD Address: [address] [place] [phone] When:2-4 days [facility] 07-12-2024 Emergency department Discharge summary Discharge Instructions Thank you for allowing [facility] to assist you with your healthcare needs. The following is important discharge information regarding your hospital visit. Diagnosis from Today's Visit Allergic reaction What to Do Next Instructions from Your Care Team No qualifying data available. Post Acute Orders No qualifying data available. You Need to Schedule the Following Appointments Follow Up with KENISHA ABBASI III, MD When:Within 2-4 days Where:[address] [place] [phone] Allergies Peanuts anaphylaxis Medications Please ask your [...] products Chemicals or dyes in clothing, linen, phosphoric acid operator, hair dyes, soaps, iodine Many viruses and [...] damage the skin. Oral diphenhydramine is an zjru-hwg-wflatfg antihistamine sold at pharmacy and grocery stores. [...] hours, or as directed by your provider 2526-7381 [employer]. [address] [place] [address], [place] [address]. All rights reserved. This information is not intended as a substitute for professional medical care. Always follow your healthcare professional's instructions. Additional Information VACCINATE! IT SAVES LIVES! Members of the community who have not yet received the COVID-19 vaccine and would like to receive it can visit one of [facility] vaccine clinics. There are many vaccine clinic locations within the [facility]. For locations and available times, please visit [email or web address] It is important to note that some COVID mobile vaccine clinics are held outdoors and may be canceled in rainy or stormy conditions. To learn more about pediatric vaccinations (ages 5-11), we invite you to visit the [facility] webpage. https://www.[facility].org/p ages/9862-Cbzjr-Vehiizbusrl-Freq dbmugm-Lvinu-Qetbpxwkr.html To learn more about the COVID-19 vaccine, we invite you to visit the CDC website for a list of frequently asked questions. https://www.cdc.gov/coronavirus/ 2019-ncov/vaccines/faq.html [facility] Patient Portal Access Instructions: Stay connected with your healthcare team and access your personal medical information anytime with the [facility] Patient Portal. If you would like a full copy of your medical records please contact the [facility] Medical Records Department Wednesday through Wednesday between 8a.m. and 4:30p.m. Please follow the directions below to access the portal: 1.Access the email account you provided upon registration to the [facility].2.Look for an invitation email from [facility].3.Open the email and access the invitation link: Accept Invitation to [employer]4.Fill in the required siu to create your account. Sign into [email or web address] with your username and password that you [...] you will allow to register on the [facility] Patient Portal for access to your information. You can also access the [employer] Patient Portal on the [employer] maycol. Simply click on Health Records under Health Data and then click on the Mare logo. HOW TO SAFELY DISPOSE OF PRESCRIPTION [...] Call your local pharmacy or go to http://Bring Light.Owlient/5V9Ne5g to find one close to you.3.Make use of household items: Use cat litter or old coffee grounds to dispose medications if other options are not available. Mix your drugs with these household products, seal them in an airtight container and throw it into the garbage. Call [facility]: [phone] to be sure your drugs can be [...] aware that I should contact my doctor. Patient/Machinist Helper Signature: Date/Time: Relationship to Patient: Witness Name/Signature: Date/Time: [facility] 07-12-2024 Note Discharge Instructions Thank you for allowing [facility] to assist you with your healthcare needs. The following is important discharge information regarding your hospital visit. Diagnosis from Today's Visit Allergic reaction What to Do Next Instructions from Your Care Team No qualifying data available. Post Acute Orders No qualifying data available. You Need to Schedule the Following Appointments Follow Up with KENISHA ABBASI III, MD When:Within 2-4 days Where:[address] [place] [phone] Allergies Peanuts anaphylaxis Medications Please ask your [...] products Chemicals or dyes in clothing, linen, phosphoric acid operator, hair dyes, soaps, iodine Many viruses and [...] damage the skin. Oral diphenhydramine is an lnfc-fic-swrhtyo antihistamine sold at pharmacy and grocery stores. [...] hours, or as directed by your provider 1180-9970 [employer]. [address] [place] [address], [place] [address]. All rights reserved. This information is not intended as a substitute for professional medical care. Always follow your healthcare professional's instructions. Additional Information VACCINATE! IT SAVES LIVES! Members of the community who have not yet received the COVID-19 vaccine and would like to receive it can visit one of [facility] vaccine clinics. There are many vaccine clinic locations within the [facility]. For locations and available times, please visit [email or web address] It is important to note that some COVID mobile vaccine clinics are held outdoors and may be canceled in rainy or stormy conditions. To learn more about pediatric vaccinations (ages 5-11), we invite you to visit the [facility] webpage. https://www.[facility].org/p ages/6379-Balpx-Jfryqjjlvxz-Freq ubsopt-Qvhwh-Jzrvmness.html To learn more about the COVID-19 vaccine, we invite you to visit the CDC website for a list of frequently asked questions. https://www.cdc.gov/coronavirus/ 2019-ncov/vaccines/faq.html [employer] Patient Portal Access Instructions: Stay connected with your healthcare team and access your personal medical information anytime with the [employer] Patient Portal. If you would like a full copy of your medical records please contact the [facility] Medical Records Department Wednesday through Wednesday between 8a.m. and 4:30p.m. Please follow the directions below to access the portal: 1.Access the email account you provided upon registration to the hospital.2.Look for an invitation email from [facility].3.Open the email and access the invitation link: Accept Invitation to [employer]4.Fill in the required siu to create your account. Sign into [email or web address] with your username and password that you [...] you will allow to register on the [employer] Patient Portal for access to your information. You can also access the [employer] Patient Portal on the [employer] maycol. Simply click on Health Records under Health Data and then click on the M[employer] logo. HOW TO SAFELY DISPOSE OF PRESCRIPTION [...] Call your local pharmacy or go to http://Bring Light.Owlient/7Z7Ci7u to find one close to you.3.Make use of household items: Use cat litter or old coffee grounds to dispose medications if other options are not available. Mix your drugs with these household products, seal them in an airtight container and throw it into the garbage. Call [facility]: [phone] to be sure your drugs can be [...] aware that I should contact my doctor. Patient/Machinist Helper Signature: Date/Time: Relationship to Patient: Witness Name/Signature: Date/Time: [facility] 07-05-2024 Note HNO ID: [id number] Author: IDALIA MURRIETA MA Service: ? Author Type: Family Support Worker Type: Progress Notes Filed: 07/05/2024 14:00 Note Text: POPULATION HEALTH NAVIGATION OUTREACH Action/Miladis Galindo [place] Discuss/Due for: Medicare Wellness, Mammogram, Influenza Vaccination, BP Control HCC Score: .81904 Outcome: 1st attempt - Not Available 2nd attempt - VoiceBunny message sent Reason for Outreach Care Gap/HCC or Scheduling Wellness Visits Care Gaps due: Medicare Annual Wellness Visit Breast Cancer Screening Controlling Blood Pressure Flu Vaccine Patient Contacted: Unable or unnecessary to reach patient: Left message HCC related Navigation Signature: Idalia Murrieta MA July 05, 2024 1:[address] [facility] 07-05-2024 History of Presen t illness Narrative POPULATION HEALTH NAVIGATION OUTREACH Action/Miladis Galindo [place] Discuss/Due for: Medicare Wellness, Mammogram, Influenza Vaccination, BP Control HCC Score: .41417 Outcome: 1st attempt - Not Available 2nd attempt - Carbon Objectshart message sent Reason for Outreach Care Gap/HCC or Scheduling Wellness Visits Care Gaps due: Medicare Annual Wellness Visit Breast Cancer Screening Controlling Blood Pressure Flu Vaccine Patient Contacted: Unable or unnecessary to reach patient: Left message HCC related Navigation Signature: Idalia Murrieta MA July 05, 2024 1:58 PM documented in this encounter [facility] 07-05-2024 Note Patient Outreach (SAMSON ALVAREZ) SAVANNAH IRVIN ([id number]) 1965 F Date Time Provider Department 07/05/24 IDALIA MURRIETA During your visit today, we recorded the following information about you: Idalia Murrieta MA 07/05/2024 2:00 PM Signed POPULATION HEALTH NAVIGATION OUTREACH Action/FYI Miladis Ledesma [place] Discuss/Due for: Medicare Wellness, Mammogram, Influenza Vaccination, BP Control HCC Score: .89441 Outcome: 1st attempt - Not Available 2nd [...] by: Tara Carr, RADHA - Fully Assessed Reason for Visit: Population [...] Encounter Status:Closed by IDALIA MURRIETA on 07/05/24 [facility] 05-15-2024 Note HNO ID: [id number] Author: IDALIA MURRIETA MA Service: ? Author Type: Family Support Worker Type: Progress Notes Filed: 05/15/2024 11:50 Note Text: POPULATION HEALTH NAVIGATION OUTREACH Action/Miladis Galindo [place] Discuss/Due for: Medicare Wellness, Mammogram, Influenza Vaccination HCC Score: .99813 Outcome: 1st attempt - Not Available 2nd attempt - MyChart message sent Reason for Outreach Care Gap/HCC or Scheduling Wellness Visits Care Gaps due: Medicare Annual Wellness Visit Breast Cancer Screening Flu Vaccine Patient Contacted: Unable or unnecessary to reach patient: Unable to leave message MyChart message sent HCC related Navigation Signature: Idalia Murrieta MA May 15, 2024 11:[address] [facility] 05-15-2024 History of Presen t illness Narrative POPULATION HEALTH NAVIGATION OUTREACH Action/Miladis Galindo [place] Discuss/Due for: Medicare Wellness, Mammogram, Influenza Vaccination HCC Score: .93768 Outcome: 1st attempt - Not Available 2nd attempt - MyChart message sent Reason for Outreach Care Gap/HCC or Scheduling Wellness Visits Care Gaps due: Medicare Annual Wellness Visit Breast Cancer Screening Flu Vaccine Patient Contacted: Unable or unnecessary to reach patient: Unable to leave message Carbon Objectshart message sent HCC related Navigation Signature: Idalia Murrieta MA May 15, 2024 11:44 AM documented in this encounter [facility] 05-15-2024 Note Patient Outreach (NE TNAV) SAVANNAH IRVIN ([id number]) 1965 F Date Time Provider Department 05/15/24 IDALIA MURRIETA During your visit today, we recorded the following information about you: Idalia Murrieta MA 05/15/2024 11:50 AM Signed POPULATION HEALTH NAVIGATION OUTREACH Action/Miladis Galindo [place] Discuss/Due for: Medicare Wellness, Mammogram, Influenza Vaccination HCC Score: .83873 Outcome: 1st attempt - Not Available 2nd [...] by: Tara Carr, RADHA - Fully Assessed Reason for Visit: Population [...] Encounter Status:Closed by IDALIA MURRIETA on 05/15/24 [facility] 02-25-2024 Note HNO ID: [id number] Author: IDALIA MURRIETA MA Service: ? Author Type: Family Support Worker Type: Progress Notes Filed: 02/25/2024 13:19 Note Text: POPULATION HEALTH NAVIGATION OUTREACH Action/Miladis Galindo [place] Discuss/Due for: Medicare Wellness, Mammogram HCC Score: .15312 Outcome: 1st attempt - No Answer/Busy 2nd attempt - MyChart message sent Reason for Outreach Care Gap/HCC or Scheduling Wellness Visits Care Gaps due: Medicare Annual Wellness Visit Breast Cancer Screening Patient Contacted: Unable or unnecessary to reach patient: Unable to leave message MyChart message sent HCC related Navigation Signature: Idalia Murrieta MA February 25, 2024 8:[address] [facility] 02-25-2024 History of Presen t illness Narrative POPULATION HEALTH NAVIGATION OUTREACH Action/Miladis Galindo [place] Discuss/Due for: Medicare Wellness, Mammogram HCC Score: .75363 Outcome: 1st attempt - No Answer/Busy 2nd attempt - MyChart message sent Reason for Outreach Care Gap/HCC or Scheduling Wellness Visits Care Gaps due: Medicare Annual Wellness Visit Breast Cancer Screening Patient Contacted: Unable or unnecessary to reach patient: Unable to leave message MyChart message sent HCC related Navigation Signature: Idalia Murrieta MA February 25, 2024 8:06 AM documented in this encounter [facility] 02-25-2024 Note Patient Outreach (SAMSON ALVAREZ) SAVANNAH IRVIN ([id number]) 1965 F Date Time Provider Department 02/25/24 IDALIA MURRIETA During your visit today, we recorded the following information about you: Idalia Murrieta MA 02/25/2024 1:19 PM Signed POPULATION HEALTH NAVIGATION OUTREACH Action/Miladis Galindo [place] Discuss/Due for: Medicare Wellness, Mammogram HCC Score: .14461 Outcome: 1st attempt - No Answer/Busy 2nd [...] [M54.5*07/16/2015 Morbid obesity due to excess calories ([facility]) [E6*10/30/2015 07/25/2020 Alcohol abuse, 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 01-04-2024 Note HNO ID: [id number] Author: IDALIA MURRIETA MA Service: ? Author Type: Family Support Worker Type: Progress Notes Filed: 01/04/2024 10:48 Note Text: POPULATION HEALTH NAVIGATION OUTREACH Action/Miladis Galindo [place] Discuss/Due for: Medicare Wellness, Mammogram HCC Score: .73686 Outcome: 1st attempt - No Answer/Busy 2nd attempt - MyChart message sent Reason for Outreach Care Gap/HCC or Scheduling Wellness Visits Care Gaps due: Medicare Annual Wellness Visit Breast Cancer Screening Patient Contacted: Unable or unnecessary to reach patient: Unable to leave message MyChart message sent HCC related Navigation Signature: Idalia Murrieta MA January 04, 2024 7:[address] [facility] 01-04-2024 History of Presen t illness Narrative POPULATION HEALTH NAVIGATION OUTREACH Action/Miladis Galindo [place] Discuss/Due for: Medicare Wellness, Mammogram HCC Score: .85508 Outcome: 1st attempt - No Answer/Busy 2nd attempt - MyChart message sent Reason for Outreach Care Gap/HCC or Scheduling Wellness Visits Care Gaps due: Medicare Annual Wellness Visit Breast Cancer Screening Patient Contacted: Unable or unnecessary to reach patient: Unable to leave message MyChart message sent HCC related Navigation Signature: Idalia Murrieta MA January 04, 2024 7:47 AM documented in this encounter [facility] 01-04-2024 Note Patient Outreach (NE TNAV) SAVANNAH IRVIN ([id number]) 1965 F Date Time Provider Department 01/04/24 IDALIA MURRIETA During your visit today, we recorded the following information about you: Idalia Murrieta MA 01/04/2024 10:48 AM Signed POPULATION HEALTH NAVIGATION OUTREACH Action/JORGEI Miladis Ledesma [place] Discuss/Due for: Medicare Wellness, Mammogram HCC Score: .99558 Outcome: 1st attempt - No Answer/Busy 2nd attempt - Carbon Objectshart message sent Reason for Outreach Care Gap/HCC or Scheduling Wellness Visits Care Gaps due: Medicare Annual Wellness Visit Breast Cancer Screening Patient Contacted: Unable or unnecessary to reach patient: Unable to leave message Carbon Objectshart message sent HCC related Navigation Signature: Idalia [...] [G89.29] 11/07/2015 Thrombocytosis (HCC) [D75.839] 12/10/2015 07/25/2020 [place]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 12-07-2023 Note HNO ID: [id number] Author: IDALIA MURRIETA MA Service: ? Author Type: Family Support Worker Type: Progress Notes Filed: 12/07/2023 10:43 Note Text: POPULATION HEALTH NAVIGATION OUTREACH Action/Miladis Galindo [place] Discuss/Due for: Medicare Wellness, Mammogram HCC Score: .76367 Outcome: 1st attempt - No Answer/Busy- Voicemail [...] Murrieta MA December 07, 2023 7:[address] [facility] 12-07-2023 History of Presen t illness Narrative POPULATION HEALTH NAVIGATION OUTREACH Action/Miladis Galindo [place] Discuss/Due for: Medicare Wellness, Mammogram HCC Score: .06959 Outcome: 1st attempt - No Answer/Busy- Voicemail [...] 2023 7:46 AM documented in this encounter [facility] 12-07-2023 Note Patient Outreach (NE TNAV) SAVANNAH IRVIN ([id number]) 1965 F Date Time Provider Department 12/07/23 IDALIA MURRIETA During your visit today, we recorded the following information about you: Idalia Murrieta MA 12/07/2023 10:43 AM Signed POPULATION HEALTH NAVIGATION OUTREACH Action/FYI Miladis Ledesma [place] Discuss/Due for: Medicare Wellness, Mammogram HCC Score: .40491 Outcome: 1st attempt - No Answer/Busy- Voicemail [...] by: Tara Carr, RADHA - Fully Assessed Reason for Visit: Population [...] [G89.29] 11/07/2015 Thrombocytosis (HCC) [D75.839] 12/10/2015 07/25/2020 [place]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 10-29-2023 History of Presen t illness Narrative POPULATION HEALTH NAVIGATION OUTREACH Action/Miladis Galindo [place] Discuss/Due for: Medicare Wellness, Mammogram Outcome: 1st attempt - Not Available/Voicemail has not been set up yet 2nd attempt - iZotopet message sent Reason for Outreach Care Gap/HCC or Scheduling Wellness Visits Care Gaps due: Medicare Annual Wellness Visit Breast Cancer Screening Patient Contacted: Unable or unnecessary to reach patient: Unable to leave message MyChart message sent Navigation Signature: Idalia Murrieta MA October 29, 2023 9:30 AM documented in this encounter [facility] 07-02-2023 Hospital Discharg e instructions Patient Education [...] an elimination diet. You can find an erp specialist in your area by contacting: [employer], www.aaaai.org [employer], www.acaai.org [...] think you are allergic to Explosive diarrhea 2990-8326 [employer]. [address] [place] [address]. All rights reserved. This information is not intended as a substitute for professional medical care. Always follow your healthcare professional's instructions. [facility] 07/01/2023 19:32:51 With:KENISHA ABBASI III, MD Address: [address] [place] [phone] When:2-4 days [facility] 07-01-2023 Note Discharge Instructions Thank you for allowing [facility] to assist you with your healthcare needs. [...] III, MD When Within 2-4 days Where: [address] [place] [phone] Allergies Peanuts (anaphylaxis) Medications Please ask your [...] an elimination diet. You can find an erp specialist in your area by contacting: [employer], www.aaaai.org [employer], www.acaai.org [...] think you are allergic to Explosive diarrhea 8587-6075 [employer]. [address] [place] [address], [place] [address]. All rights reserved. This information is not intended as a substitute for professional medical care. Always follow your healthcare professional's instructions. Additional Information VACCINATE! IT SAVES LIVES! Members of the community who have not yet received the COVID-19 vaccine and would like to receive it can visit one of [facility] vaccine clinics. There are many vaccine clinic locations within the [facility]. For locations and available times, please visit [email or web address] [email or web address] It is important to note that some COVID mobile vaccine clinics are held outdoors and may be canceled in rainy or stormy conditions. To learn more about pediatric vaccinations (ages 5-11), we invite you to visit the [facility] webpage. https://www.[facility].org/p ages/2005-Zjslk-Hkigsrpvnwd-Freq pnmykb-Xuoig-Vhmlkelhy.html To learn more about the COVID-19 vaccine, we invite you to visit the CDC website for a list of frequently asked questions. https://www.cdc.gov/coronavirus/ 2019-ncov/vaccines/faq.html [employer] Patient Portal Access Instructions: Stay connected with your healthcare team and access your personal medical information anytime with the [employer] Patient Portal. If you would like a full copy of your medical records please contact the [facility] Medical Records Department Wednesday through Wednesday between 8a.m. and 4:30p.m. Please follow the directions below to access the portal: 1.Access the email account you provided upon registration to the hospital.2.Look for an invitation email from [facility].3.Open the email and access the invitation link: Accept Invitation to [employer]4.Fill in the required siu to create your account. Sign into [email or web address] with your username and password that you [...] you will allow to register on the [employer] Patient Portal for access to your information. You can also access the [employer] Patient Portal on the [employer] maycol. Simply click on Health Records under Health Data and then click on the [employer] logo. HOW TO SAFELY DISPOSE OF PRESCRIPTION [...] Call your local pharmacy or go to http://Bring Light.Owlient/2X6Ns4w to find one close to you.3.Make use of household items: Use cat litter or old coffee grounds to dispose medications if other options are not available. Mix your drugs with these household products, seal them in an airtight container and throw it into the garbage. Call [facility]: [phone] to be sure your drugs can be [...] aware that I should contact my doctor. Patient/Machinist Helper Signature: Date/Time: Relationship to Patient: Witness Name/Signature: Date/Time: [facility] 06-18-2023 Miscellaneous Notes The following approved medication requests have been transmitted electronically. Requested Prescriptions Pending Prescriptions Disp Refills albuterol HFA (VENTOLIN HFA) 90 mcg/actuation inhaler 18 g 5 Sig: inhale 2 puffs by mouth every 4 hours as directed if needed for wheezing shortness of breath Manoj Davidson APRN.[employer]OL [employer]ER Patient has been identified by name and [...] Angela Leung LPN. documented in this encounter [facility] 06-05-2023 Progress note Note Date/Time June 05, 2023 8:48am [facility] Medical Records Department [address] [place] [address] [place] [address] Progress Note - Hospitalist 06/05/23 0839 MR#: [id number] Acct: [id number] Name: SAVANNAH IRVIN Rep #:[id number] : 1965 57 From: Nito Thorne DO PCP: Dr. Ivette Welsh MD Status:AD M DANIELE Location: [place] [address] Reason for Visit Reason for Visit: Diagnoses [...] % (Auto) 61.9, Lymph % (Auto) 24.9, Sarpy % (Auto) 8.1, Eos % (Auto) 4.2, [...] 88.4 H, Lymph % (Auto) 10.5 L, Sarpy % (Auto) 0.5, Eos % (Auto) 0.0, [...] 22:44 EST Reading Location ID and State: [facility] / [place] Tel , Service support , Physical Exam [...] has never had PFTs or seen a revenue collector before. I would be concerned patient has [...] Cosigner Signature (if applicable): CC: ~ Signed [facility] Work Phone: 1(967) 985-920711-18-2023 History and physical note Author Alexandru Holden [facility] June 05, 2023 2:37am Note Date/Time June 04, 2023 11:31pm [facility] Medical Records Department [address] [place] [address] H&P Exam - Hospitalist 06/04/23 2331 MR#: [id number] Acct: [id number] Name: SAVANNAH IRVIN Rep #:[id number] : 1965 57 From: Alexandru Holden MD PCP: Dr. Ivette Welsh MD Status:TAMAR SANABRIA Location: [facility] [id number] HPI - General General Date of Admission: 06/04/23 Date of Service: 06/04/23 Chief Complaint: sob HPI Narrative SAVANNAH IRVIN, is a 57 F with a significant history of tobacco abuse; COPD and hypertension who presents emergency department for shortness of breath. [facility] prior to presentation and was treatedfor strep pneumoniae. She received about 3 doses of antibiotics. Thereafter she was not happy with the care at [facility] so she left. was not good [...] whether she had a fever or not. [facility] Medical History Acute pyelonephritis Alcohol abuse [...] % (Auto) 61.9, Lymph % (Auto) 24.9, Sarpy % (Auto) 8.1, Eos % (Auto) 4.2, [...] 22:44 EST Reading Location ID and State: [facility] / [place] Tel , Service support , Assessment & Plan Assessment/Plan (1) COPD exacerbation: PLAN: Plan COPD exacerbation CXR independently interpreted: No acute pulmonary findings. Circumferential thickening of the distal esophagus. Scheduled DuoNeb Albuterol as needed Solu-Medrol [id number] ordered Given the emergency department and continued. [...] 70 minutes. Charges/Coding Visit Charges Inpatient E&M: 35837 Init Hosp L3 06/05/23 0237 <Electronically signed by Alexandru Holden MD> Cosigner Signature (if applicable): CC: Dr. Alexandru Holden MD; Dr. vIette Welsh MD~ Signed [facility] Work Phone: 1(581) 555-541611-18-2023 Discharge summary Author Idalia Sanchez [facility] June 05, 2023 12:15am Note Date/Time June 04, 2023 8:51pm [facility] Medical Records Department [address] [place] [address] Emergency Department Summary 06/04/23 MR#: [id number] Acct: [id number] Name: SAVANNAH IRVIN SRIDHAR Rep #:[id number] : 1965 57 From: Idalia Sanchez MD PCP: Dr. Ivette Welsh MD Status:AD M [facility] Location: [place] [address] HPI History of Present Illness Chief Complaint: Shortness of Breath Informant: patient Onset/Context/Timing Onset: Weeks Context: Gradual Onset Narrative Narrative: Patient present secondary to cough and shortness of breath. She states she was admitted to [facility] and cannot about a month ago with strep pneumonia. She got 3 doses of IV antibiotics and left the hospital because she was not happy with her care there. She states has had gradual worsening of her symptomsto include shortness of breath, cough, back pain. She states there is a couple times that she has had subjective fever and chills. [facility] Medical History Acute pyelonephritis Alcohol abuse Asthma [...] Medical decision making narrative: Patient placed on representative. IV line established. Patient given aerosolsand Solu-Medrol. [...] % (Auto) 61.9 Lymph % (Auto) 24.9 Sarpy % (Auto) 8.1 Eos % (Auto) 4.2 [...] 22:44 EST Reading Location ID and State: [facility] / [place] Tel , Service support , EKG Initial [...] Provider] - Disposition Disposition: Acute Care Hospital [facility] What to do if you have Problems For any increased pain, shortness of breath, bleeding, nausea or vomiting, chestpain, or any unexpected problems, contact your Primary Care Provider. Call [facility] ([phone]) or report to the closest Emergency Room. Call 911 if necessary. 06/05/23 0015 <Electronically signed by Idalia Sanchez MD> Cosigner Signature (if applicable): CC: Dr. Ivette Welsh MD ~ Signed [facility] Work Phone: 1(248) 367-445911-17-2023 Discharge summary Author Idalia Sanchez [facility] June 05, 2023 12:15am Note Date/Time June 04, 2023 8:51pm [facility] Medical Records Department [address] [place] [address] Emergency Department Summary 06/04/23 MR#: [id number] Acct: [id number] Name: SAVANNAH IRVIN Rep #:[id number] : 1965 57 From: Idalia Sanchez MD PCP: Dr. Ivette Welsh MD Status:AD M [place]AN[place]LE Location: [place] [address] HPI History of Present Illness Chief Complaint: Shortness of Breath Informant: patient Onset/Context/Timing Onset: Weeks Context: Gradual Onset Narrative Narrative: Patient present secondary to cough and shortness of breath. She states she was admitted to [facility] and cannot about a month ago with strep pneumonia. She got 3 doses of IV antibiotics and left the hospital because she was not happy with her care there. She states has had gradual worsening of her symptomsto include shortness of breath, cough, back pain. She states there is a couple times that she has had subjective fever and chills. [facility] Medical History Acute pyelonephritis Alcohol abuse Asthma [...] Medical decision making narrative: Patient placed on representative. IV line established. Patient given aerosolsand Solu-Medrol. [...] % (Auto) 61.9 Lymph % (Auto) 24.9 Sarpy % (Auto) 8.1 Eos % (Auto) 4.2 [...] 22:44 EST Reading Location ID and State: [facility] / [place] Tel , Service support , EKG Initial [...] Provider] - Disposition Disposition: Acute Care Hospital [facility] What to do if you have Problems For any increased pain, shortness of breath, bleeding, nausea or vomiting, chestpain, or any unexpected problems, contact your Primary Care Provider. Call [facility] ([phone]) or report to the closest Emergency Room. Call 911 if necessary. 06/05/23 0015 <Electronically signed by Idalia Sanchez MD> Cosigner Signature (if applicable): CC: Dr. Ivette Welsh MD ~ Signed [facility] Work Phone: 1(887) 677-169311-01-2023 History of Present illness Narrative* Radha Victoria, RN - 05/19/2023 1:34 PM EDT TRANSITION CARE MANAGEMENT (TCM) FOLLOW-UP NOTE Provider Action/FYI Discharge Network Status: In-Network Discharge Summary: Pt discharged from [facility] on 05/01/23. LEFT AMA Admitted for: Difficulty breathing, Acute hypoxic respiratory failure Concerns: Attempted to reach pt for TCM follow up, no answer, unable to leave [employer] plan for next outreach: Will continue to follow during TCM 30 day period RYAN Education Ordered -: No Signature Radha Victoria RN May 19, 2023 [facility] History of Present illness Narrative* Damaris Francis RN - 05/12/2023 1:37 PM EDT TRANSITION CARE MANAGEMENT (TCM) FOLLOW-UP NOTE Provider Action/FYI Patient identified by name and date of : NO No vm set up, unable to leave a message. Discharge Network Status: In-Network Discharge Summary: Pt discharged from [facility] on 05/01/23. Admitted for: Difficulty breathing Acute hypoxic respiratory failure Severe sepsis Streptococcal pneumonia Left lower rib cage pain GERD with dysphagia Previous history of PE/DVTs, however off of Xarelto due to massive GI bleed history Active drug abuse, denies IV abuse though Active tobacco abuse Concerns: [employer] plan for next outreach: f/u in 2 weeks. RYAN Education Ordered -: No Signature Damaris Francis RN May 12, 2023 documented [facility]10-17-2023 History of Present illness Narrative* Meli Olsen RN - 05/04/2023 10:04 AM EDT TRANSITIONAL CARE MANAGEMENT (TCM) COMMUNITY MONITORING PROGRAM Provider Action/FYI: Initial TCM Outgreach - 2nd attempt Pt has no contact number Left general messages left for sister Maritza Light, and Luis for patient to call back PCP office for F/U Reached friend Lurdes and obtained contact number [phone] attempted to call bur VM box not set up SUMMARY: HR 21 Discharge Network Status: In-Network Discharge Pt discharged from [facility] on 05/01/23. Admitted for: Difficulty breathing [...] difficulty in breathing for few days to [facility]. Patient diagnosed with streptococcal pneumonia, [...] Home Visit Referral Source of Stratification: [facility] Admission Status: Discharged Readmission Risk Score: [...] and spouse to have patient return call [phone] today until 4 or tomorrow after 0800 Not used [employer] at all since 01/25/2020 unable to contact patient via [employer] Speech recommendations : Alternate bites and sips, Self-monitoring, Small Bite/Sip, Maintain an upright position 20-30 minutes following all oral intake, Anti-Reflux precautions SUMMARY: Discharge Network Status: In-Network Discharge Pt discharged from [facility] on 05/01/23. Admitted for: Difficulty breathing [...] difficulty in breathing for few days to [facility] ED. Patient diagnosed with streptococcal pneumonia, [...] 03, 2023 1:03 PM documented in this [facility]10-14-2023 NoteHNO ID: [id number] Author: Vane Rosas MD Service: General Internal [...] with Gram Stain (RESPIRATORY CULTURE + STAIN) [[id number]] (Abnormal) Collected: 04/30/23552 Order Status: Completed Specimen: Micro Specimen from SPUTUM Updated: 04/30/231933 Gram Stain Many Polymorphonuclear leukocytes Moderate Epithelial cells Many Gram positive cocci Urine Streptococcus Pneumoniae Ag [[id number]] (Abnormal) Collected: 04/29/232151 Order Status: Completed Specimen: Urine Random Updated: 04/29/232225 Strep pneumo AG Result Positive for Streptococcus pneumoniae antigen. Blood Culture: Positive Micro-30 Days Procedure Component Value Units Date/Time Sputum Culture with Gram Stain (RESPIRATORY CULTURE + STAIN) [[id number]] (Abnormal) Collected: 04/30/23552 Order Status: Completed Specimen: Micro Specimen from SPUTUM Updated: 04/30/231933 Gram Stain Many Polymorphonuclear leukocytes Moderate Epithelial cells Many Gram positive cocci Urine Streptococcus Pneumoniae Ag [[id number]] (Abnormal) Collected: 04/29/232151 Order Status: Completed Specimen: Urine Random Updated: 04/29/232225 Strep pneumo AG Result Positive for Streptococcus pneumoniae antigen. (more content not included)...[facility]10-14-2023 NoteHNO ID: [id number] Author: Note, Interface Service: ? Author Type: ? Type: Progress Notes Filed: 05/01/2023 5:48 AM Note Text: Epic Scheduled Downtime: 05/01/2023 1:00:00 AM to 05/01/2023 1:28:00 [facility]10-13-2023 NoteHNO ID: [id number] Author: Letha Dunlap LSW Service: Care Management Author Type: Sample Builder Type: Care Mgt Progress Note Filed: 04/30/2023 [...] April 30, 2023 TIME: 3:39 PM PAGER/CONTACT #:[facility]10-13-2023 NoteHNO ID: [id number] Author: Vane Rosas MD Service: General Internal [...] Value Units Date/Time Urine Streptococcus Pneumoniae Ag [[id number]] (Abnormal) Collected: 04/29/232151 Order Status: Completed Specimen: Urine Random Updated: 04/29/232225 Strep pneumo AG Result Positive for Streptococcus pneumoniae antigen. Blood Culture: Positive Micro-30 Days Procedure Component Value Units Date/Time Urine Streptococcus Pneumoniae Ag [[id number]] (Abnormal) Collected: 04/29/232151 Order Status: Completed Specimen: Urine Random Updated: 04/29/232225 Strep pneumo AG Result Positive for Streptococcus pneumoniae antigen. Medication and Non-Pharmacologic VTE Prophylaxis/Anticoagulants 04/29/23 1200 activity - mobilize patient (wa,ct) VTE Prophylaxis: VTE prophylaxis appropriate Assesment: Acute respiratory failure with hypoxia/severe sepsis/streptococcal pneumonia - Continue while admitted IV Rocephin and p.o. azithromycin. - DuoNebs 4 times daily. - Albuterol aerosol q 4 hrs prn SOB, wheezing or hypoxia. -Tylenol as needed fever or mild/moderate pain -Morphine IV a (more content not included)...[facility]08-07-2023 Hospital Discharge instructions Patient Education 02/22/2023 [...] Swelling, pain or redness in one leg [id number] [employer] [place] [address]. All rights reserved. This information is not intended as a substitute for professional medical care. Always follow yourhealthcare professional's instructions. Follow Up Care 02/22/2023 11:47:18 With:KENISHA ABBASI Address: [address] [place] [phone] Business (1) When:2-4 days Comments:Schedule appointment for close follow-up.Position of comfort, limit activity as tolerated.Use Tylenol, Advil or Aleve for pain as needed.Resume all routine medications.Return to the ED if symptoms worsen. [facility] 08-07-2023 Note ORIGINAL EXAMINATION: ONE XRAY VIEW [...] Date: 02/22/2023 12:28:42 PM Ordering Provider: [facility]IAK[facility] Note Sinus rhythm Biatrial enlargement Nonspecific T abnrm, anterolateral leads Prolonged QT interval Electronic Signature: ELKE GARCIA MD 02/22/2023 11:51:31[facility] 08-03-[facility] History of Present illness Narrative* Ivette [...] a 7 day TCM. Pt seen in [facility] ED on 02/08/23 for flank pain and [...] has allergies to nuts. Below copied from [employer]: Chief Complaint: Flank Pain Informant: patient Narrative [...] Patient is being admitted in [facility] floor. She is not having sinus symptoms [...] ordered. 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 Salazar revenue collector. 5. Anxiety and depression history of suicidal attempt more than 10 years ago: Patient states she isnot on an antidepression medication. 02/09: Patient denies substance use but takes marijuana. Started on paroxetine. 02/10 follow-up with PCP. Living will/advanced directive/end of life care: Patient does not have living will or advanced directive or designated power of retail director for health. After discussion of benefits/risks procedures [...] Past Histories independently gathered by the clinical forestry support specialist and the remaining scribed note accurately describes my personal service to the patient. Ivette Welsh MD The documentation for this note was completed by Deepika Pierce Ma acting as scribe for Ivette Welsh MD. February 18, 2023 10:36 AM. Deepika Pierce Ma documented in this encounterK[facility]07-27-2023 Discharge summary Author Jama Bustamante [facility] February 11, 2023 8:34am Note Date/Time February 11, 2023 7:55 am [facility] Medical Records Department [address] [place] [address] Discharge Summary 02/11/23 0834 MR#: [id number] Acct: [id number] Name: SAVANNAH IRVIN SRIDHAR Rep #:[id number] : 1965 57 From: Jama East PCP: Dr. Ivette Welsh MD Status:AD M [place] Location: [place]3 [id number] Providers Date of Admission: 02/08/23 Date of [...] ordered. 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 Salazar revenue collector. 5. Anxiety and depression history of suicidal attempt more than 10 years ago: Patient states she is not on an antidepression medication. 02/09: Patient denies substance use but takes marijuana. Started on paroxetine. 02/10 follow-up with PCP. Living will/advanced directive/end of life care: Patient does not have living will or advanced directive or designated power of retail director for health. After discussion of benefits/risks procedures involved with full code, DNR CC arrest and DNR CC, the patient opted for full code. Patient does want artificial life support including intubation, tube feed, ventilator and/chest compression, central venous catheter, vasopressor and DC shock if needed Microbiology Past 72 Hours 02/08/23 15:01 Blood Culture (Wb) - Left Forearm Blood Culture - Preliminary GNR lactose bridal service sales and management 02/08/23 14:06 Blood Culture (Wb) - Anticubital Left Blood Culture - Preliminary GNR lactose bridal service sales and management 02/08/23 13:00 Urine, Clean Catch Urine Culture [...] (Auto) 68.8, Lymph % (Auto) 16.4 L, Sarpy % (Auto) 12.0 H, Eos % (Auto) [...] (Auto) 68.8, Lymph % (Auto) 16.4 L, Sarpy % (Auto) 12.0 H, Eos % (Auto) [...] Forearm Blood Culture - Preliminary GNR lactose bridal service sales and management 02/08/23 14:06 Blood Culture (Wb) - Anticubital Left Blood Culture - Preliminary GNR lactose bridal service sales and management Meaningful Use Info Meaningful Use Diagnoses (Choose [...] Self Care Charges/Coding Visit Charges Inpatient E&M: 48878 Disch Hosp >30min 02/11/23 0834 <Electronically signed by Jama Bustamante MD> Cosigner Signature (if applicable): CC: Dr. Ivette Welsh MD; Dr. Jama Bustamante MD~ Signed [facility] Work Phone: 1(172) 193-641507-27-2023 Discharge summary Author Jama Bustamante [facility] February 11, 2023 8:02am Note Date/Time February 11, 2023 8:02 am [facility] Medical Records Department [address] [place] [address] Instructions for Home/Discharge Instructions 02/11/23 0801 MR#: [id number] Acct: [id number] Name: SAVANNAH IRVIN Rep #:[id number] : 1965 57 From: Jama East PCP: [...] CC: Dr. Ivette Welsh MD ~ Signed [facility] Work Phone: 1([phone]) 141-586907-27-2023 Discharge summary Author Jama Bustamante [facility] February 11, 2023 7:52am Note Date/Time February 11, 2023 7:49 am [facility] Medical Records Department [address] [place] [address] Instructions for Home/Discharge Instructions 02/11/2348 MR#: [id number] Acct: [id number] Name: SAVANNAH IRVIN Rep #:[id number] : 1965 57 From: Jama East PCP: [...] CC: Dr. Ivette Welsh MD ~ Signed [facility] Work Phone: 1(792) 921-483407-26-2023 Progress note Author [facility] February 10, 2023 6:14pm Note Date/Time February 10, 2023 6:14 pm [facility] Medical Records Department [address] [place] [address] Progress Note - Hospitalist 02/10/23 0721 MR#: [id number] Acct: [id number] Name: SAVANNAH IRVIN SRIDHAR Rep #:[id number] : 1965 57 From: Jama East PCP: Dr. Ivette Welsh MD Status:AD M IN Location: [place] [id number] Reason for Visit Reason for Visit: Diagnoses [...] 85.6 H, Lymph % (Auto) 6.8 L, Sarpy % (Auto) 6.3, Eos % (Auto) 0.5, Baso % (Auto) 0.2, Absolute Neuts (auto) 15.0 H, Absolute Lymphs (auto) 1.19, Nucleated RBC % 0 Micro: Microbiology 02/08/23 15:01 Blood Culture (Wb) - Left Forearm Blood Culture - Preliminary GNR lactose bridal service sales and management 02/08/23 14:06 Blood Culture (Wb) - Anticubital Left Blood Culture - Preliminary GNR lactose bridal service sales and management Radiography Diagnostic Testing: Radiology Impression Renal Ultrasound 02/09/23 11:58 IMPRESSION: Normal ultrasound of the kidneys and urinary bladder. Electronically Signed: Ayaz Parker MD at 14:59 EDT Reading Location ID and State: [address] [place] [address] , Service support , Physical Exam Narrative Seen and examined. [...] Right-sided pyelonephritis: [facility] Sheis not having sinus symptoms [...] ordered. 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 Salazar revenue collector. 5. Anxiety and depression history of suicidal attempt more than 10 years ago: Patient states she is not on an antidepression medication. 02/09: Patient denies substance use but takes marijuana. Started on paroxetine. Living will/advanced directive/end of life care: Patient does not have living will or advanced directive or designated power of retail director for health. After discussion of benefits/risks procedures involved with full code, DNR CC arrest and DNR CC, the patient opted for full code. Patient does want artificial life support including intubation, tube feed, ventilator and/chest compression, central venous catheter, vasopressor and DC shock if needed Total time spent in [id number] encounter in discussion of advanced directive 17 minutes. Microbiology Past 72 Hours 02/08/23 13:00 Urine, Clean Catch Urine Culture - Preliminary Presumptive E. coli 02/08/23 15:01 Blood Culture (Wb) - Left Forearm Blood Culture - Preliminary GNR lactose bridal service sales and management 02/08/23 14:06 Blood Culture (Wb) - Anticubital Left Blood Culture - Preliminary GNR lactose bridal service sales and management Laboratory Results 02/08/23 12:45: Diff Path Review [...] 85.6 H, Lymph % (Auto) 6.8 L, Sarpy % (Auto) 6.3, Eos % (Auto) 0.5, [...] 14:59 EDT Reading Location ID and State: [facility] / [place] , Service support , Charges/Coding Visit Charges Inpatient E&M: 39761 Subs Hosp L2 02/10/23 1814 <Electronically signed by Jama Bustamante MD> Cosigner Signature (if applicable): CC: ~ Signed [facility] Work Phone: 1(673) 306-139507-25-2023 Progress note Author Jama Bustamante [facility] February 09, 2023 11:57am Note Date/Time February 09, 2023 11:5 6am [facility] Medical Records Department [address] [place] [address] Progress Note - Hospitalist 02/09/23 1149 MR#: [id number] Acct: [id number] Name: SAVANNAH IRVIN SRIDHAR Rep #:[id number] : 1965 57 From: Jama East PCP: Dr. Ivette Welsh MD Status:AD M IN Location: [facility] [id number] Reason for Visit Reason for Visit: Diagnoses Acute pyelonephritis (02/08/23) Subjective Subjective Follow-up for right-sided acute pyelonephritis. Objective Data Objective Data Vital Signs: Vital Signs Temp Pulse Resp BP Pulse Ox O2 Del Method O2 Flow Rate 97.9 F 99 18 103/60 96 Nasal Cannula 2 02/09/23 10:00 02/09/23 10:00 02/09/23 10:02/09/23 10:00 02/09/23 10:00 02/09/23 10:02/09/23 10:00 Oxygen Flow Rate (L/min) 2 Oxygen [...] 82.0 H, Lymph % (Auto) 8.4 L, Sarpy % (Auto) 8.3, Eos % (Auto) 0.1, [...] Clarity Cloudy, Urine pH 6.5, Ur Specific [place] 1.015, Urine Protein 100 H, Urine Glucose [...] (Auto) 85.4 H, Lymph % (Auto) 5.7 L,Sarpy % (Auto) 6.7, Eos % (Auto) 0.1, [...] ordered. 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 Salazar revenue collector. 5. Anxiety and depression history of suicidal attempt more than 10 years ago: Patient states she is not on an antidepression medication. 02/09: Patient denies substance use but takes marijuana. Started on paroxetine. Living will/advanced directive/end of life care: Patient does not have living will or advanced directive or designated power of retail director for health. After discussion of benefits/risks procedures involved with full code, DNR CC arrest and DNR CC, the patient opted for full code. Patient does want artificial life support including intubation, tube feed, ventilator and/chest compression, central venous catheter, vasopressor and DC shock if needed Total time spent in [id number]-[id number] encounter in discussion of advanced directive 17 [...] 82.0 H, Lymph % (Auto) 8.4 L, Sarpy % (Auto) 8.3, Eos % (Auto) 0.1, [...] Clarity Cloudy, Urine pH 6.5, Ur Specific [place] 1.015, Urine Protein 100 H, Urine Glucose [...] (Auto) 85.4 H, Lymph % (Auto) 5.7 L,Sarpy % (Auto) 6.7, Eos % (Auto) 0.1, [...] distal esophagus. Charges/Coding Visit Charges Inpatient E&M: 22904 Subs Hosp L2 02/09/23 1157 <Electronically signed by Jama Bustamante MD> Cosigner Signature (if applicable): CC: ~ Signed [facility] Work Phone: 1(927) 721-913207-24-2023 Discharge summary Author Omega Mejía [facility] February 08, 2023 5:23pm Note Date/Time February 08, 2023 12:3 3pm [facility] Medical Records Department [address] [place] [address] Emergency Department Summary 02/08/23 MR#: [id number] Acct: [id number] Name: SAVANNAH IRVIN Rep #:[id number] : 1965 57 From: Omega Marroquin PCP: Dr. Ivette Welsh MD Status:AD M IN Location: [place] [address] HPI HPI - GI History of Present [...] 0.3 mg (0.3 mL) IM X1 ##1 07/06/19 [Rx Last Taken Unknown] ipratropium 0.5 mg-albuterol [...] clinician: N/A This note was generated with Letation software. It may contain incorrectwords, spelling, and [...] 82.0 H Lymph % (Auto) 8.4 L Sarpy % (Auto) 8.3 Eos % (Auto) 0.1 [...] Clarity Cloudy Urine pH 6.5 Ur Specific Whitewood 1.015 Urine Protein 100 H Urine Glucose [...] pyelonephritis, Leukocytosis Disposition Disposition: Acute Care Hospital [facility] Discharge Date/Time: 02/08/23 16:06 What to do if you have Problems For any increased pain, shortness of breath, bleeding, nausea or vomiting, chestpain, or any unexpected problems, contact your Primary Care Provider. Call [facility] ([phone]) or report to the closest Emergency Room. Call 911 if necessary. 02/08/23 1723 <Electronically signed by Omega Marroquin> Cosigner Signature (if applicable): CC: Dr. Ivette Welsh MD ~ Signed [facility] Work Phone: 1(780) 727-765807-24-2023 History and physical note Author Jama Bustamante [facility] February 08, 2023 4:09pm Note Date/Time February 08, 2023 3:04 pm [facility] Medical Records Department [address] [place] [address] H&P Exam - Hospitalist 02/08/23 1501 MR#: [id number] Acct: [id number] Name: SAVANNAH IRVIN Rep #:[id number] : 1965 57 From: Jama East PCP: Dr. Ivette Welsh MD Status:AD M IN Location: [facility] UJ458-5 HPI - General General Date of Admission: [...] years ago. She is anxious and fearful. [facility] Medical History Alcohol abuse Asthma Chronic [...] 82.0 H, Lymph % (Auto) 8.4 L, Sarpy % (Auto) 8.3, Eos % (Auto) 0.1, [...] Clarity Cloudy, Urine pH 6.5, Ur Specific Whitewood 1.015, Urine Protein 100 H, Urine Glucose [...] ordered. 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 Salazar revenue collector. 5. Anxiety and depression history of suicidal attempt more than 10 years ago: Patient states she is not on an antidepression medication. Living will/advanced directive/end of life care: Patient does not have living will or advanced directive or designated power of retail director for health. After discussion of benefits/risks procedures involved with full code, DNR CC arrest and DNR CC, the patient opted for full code. Patient does want artificial life support including intubation, tube feed, ventilator and/chest compression, central venous catheter, vasopressor and DC shock if needed Total time spent in [id number] encounter in discussion of advanced directive 17 minutes. Laboratory Results 02/08/23 12:45: WBC 24.7 H, RBC 5.15, Hgb 14.4, Hct 46.1, MCV 89.5, MCH 28.0, MCHC 31.2 L, RDW Std Deviation 44.7 H, RDW Coeff of Madhu 13.7, Plt Count 388, MPV9.4, Immature Gran % (Auto) 0.800, Neut % (Auto) 82.0 H, Lymph % (Auto) 8.4 L, Sarpy % (Auto) 8.3, Eos % (Auto) 0.1, [...] Clarity Cloudy, Urine pH 6.5, Ur Specific Whitewood 1.015, Urine Protein 100 H, Urine Glucose [...] distal esophagus. Charges/Coding Visit Charges Inpatient E&M: 24959 Init Hosp L3 Procedures Hospitalists Procedures: 53369 Advncd Care Plan 30 Min 02/08/23 1609 <Electronically signed by Jama Bustamante MD> Cosigner Signature (if applicable): CC: Dr. Ivette Welsh MD; Dr. Jama Bustamante MD~ Signed [facility] Work Phone: [phone]) 677-553906-05-2023 Miscellaneous Notes* Telephone Encounter - Manoj Davidson [...] advise. Lindsay Muse MA documented [facility]04-28-2023 History of Present illness Narrative* Aye Zarate RT(R) - 11/13/2022 4:50 PM EDT Radiology [...] IV DATA: Not applicable SIGNED BY: RT Francie(Nato) November 13, 2022 4:46 PM documented in this encounterKettering Health02-22-[address] Leos [facility] September 09, 2022 5:47am Note Date/Time September 09, 2022 3:16am [facility] Medical Records Department [address] [place] [address] Emergency Department Summary 09/09/22 MR#: [id number] Acct: [id number] Name: SAVANNAH IRVIN Rep #:[id number] : 1965 57 From: Reymundo Leos MD [...] History of cholecystectomy no other abdominal surgeries. [facility] Medical History Alcohol abuse Asthma Chronic pain [...] PO Q6H PRN PRN abdominal discomfort #20 [id number]/22/23 [Rx Last Taken Unknown] Allergy/AdvReac Type Severity [...] % (Auto) 67.1 Lymph % (Auto) 22.5 Sarpy % (Auto) 7.4 Eos % (Auto) 2.0 [...] Clarity Clear Urine pH 7.0 Ur Specific Whitewood 1.010 Urine Protein Negative Urine Glucose (UA) [...] your Primary Care Provider. Call [facility] ([phone]) or report to the closest Emergency Room. Call 911 if necessary. 09/09/22 0515 <Electronically signed by Reymundo Leos MD> Cosigner Signature (if applicable): CC: Dr. Ivette Welsh MD ~ Signed [facility] Work Phone: 1(523) 456-198512-12-2022 History of Present illness Narrative* Susanna Lazar Population Health Navigator - 06/29/2022 11:53 AM EST POPULATION HEALTH NAVIGATION OUTREACH Action/FYI HCC gaps- Diagnosis with HCC gap left: M47.812 - Cervical spine arthritis F10.11 - Alcohol abuse, in remission Outcome- lvm/sent Data [employer] Corphart to return call and schedule an appt to verify/establish care with provider at [facility] if needed. Last office visit- 09-29-21 No future appt scheduled- verify pcp/establish care if needed Also due/discuss- bp, mammogram, flu vaccine Pt identified by name and : NO Outreach Outcome/Action Unable to reach patient: Left message Carbon Objectshart message sent Did you use a PCP flex slot to schedule this appointment? N/A Reason for Outreach HCC or suspected condition Payer: Payor: [employer] MEDICAID / Plan: [employer] MEDICAID / Product Type: Medicaid / Care [...] due on 03/31/2022 Navigation Signature: Susanna Lazar Population Health Navigator June 29, 2022 11:53 AM documented in this encounterKettering Health12-07-2022 History of Present illness Narrative* Marko Sanchez - 06/24/2022 11:43 AM EST Savannah Irvin is identified through a medication adherence outreach initiative based on pharmacy claims data from [employer] (insurer) for CAMPOS medication(s). Patient is reviewed [...] student documentation and outreach below. Jacquie Cortez [facility] PharmD BCACP documented in this encounterKettering Health11-18-2016 History of Past illness Narrative* Problem Noted Date Resolved Date Seizure disorder 06/05/2016 10/12/2017 Rotator cuff syndrome of both shoulders 06/05/20 16 10/12/2017 Anemia due to GI blood loss 03/02/201602/16 Rectal bleeding 03/02/2016 03/03/2017 Chronic prescription opiate use 02/13/2016 10/12/2017 [place]'s syndrome 02/06/2016 10/12/2017 Thrombocytosis 12/10/2015 07/25/2020 Pulmonary [...] of this encounter (statuses as of 06/25/2022) [facility] History of Past illness Narrative* Problem Noted [...] of this encounter (statuses as of 06/29/2022) [facility] History of Past illness Narrative* Problem Noted [...] of this encounter (statuses as of 10/01/2022) [facility] History of Past illness Narrative* Problem Noted [...] of this encounter (statuses as of 11/23/2022) [facility] of Past illness Narrative* Problem Noted Date Resolved Date Seizure disorder 06/05/2016 10/12/2017 Rotator cuff syndrome of both shoulders 06/05/20 16 10/12/2017 Anemia due to GI blood loss 03/02/201602/16 Rectal bleeding 03/02/2016 03/03/2017 Chronic prescription opiate use 02/13/2016 10/12/2017 [place]'s syndrome 02/06/2016 10/12/2017 Thrombocytosis 12/10/2015 07/25/2020 Pulmonary [...] of this encounter (statuses as of 12/21/2022) [facility] of Past illness Narrative* Problem Noted [...] of this encounter (statuses as of 02/19/2023) [facility] of Past illness Narrative* Problem Noted [...] of this encounter (statuses as of 05/04/2023) [facility] of Past illness Narrative* Problem Noted [...] of this encounter (statuses as of 05/12/2023) [facility] of Past illness Narrative* Problem Noted [...] of this encounter (statuses as of 05/19/2023) [facility] of Past illness Narrative* Problem Noted [...] of this encounter (statuses as of 06/18/2023) [facility] of Past illness Narrative* Problem Noted Date Diagnosed Date Resolved Date Seizure disorder 06/05/2016 10/12/2017 Rotator cuff syndrome of both shoulders 06/05/2016 10/12/2017 Anemia due to GI blood loss 03/02/2016 03/03/2017 Rectal bleeding 03/02/2016 03/03/2017 Chronic prescription opiate use 02/13/2016 10/12/2017 [place]'s syndrome 02/06/2016 8 Thrombocytosis 12/10/2015 07/25/2020 Pulmonary [...] of this encounter (statuses as of 10/29/2023) [facility] of Past illness Narrative* Problem Noted Date Diagnosed Date Resolved Date Seizure disorder 06/05/2016 10/12/2017 Rotator cuff syndrome of both shoulders 06/05/2016 10/12/2017 Anemia due to GI blood loss 03/02/2016 03/03/2017 Rectal bleeding 03/02/2016 03/03/2017 Chronic prescription opiate use 02/13/2016 10/12/2017 [place]'s syndrome 02/06/2016 8 Thrombocytosis 12/10/2015 07/25/2020 Pulmonary [...] of this encounter (statuses as of 11/01/2023) [facility] note Author Sri Chavez [facility] Vero 27th, 2023 10:01am Note Date/Time February 11, 2023 10:0 1am [facility] Medical Records Department [address] [place] [address] Counseling Note - Pharmacy 02/11/23 1000 MR#: [id number] Acct: [id number] Name: SAVANNAH IRVIN SRIDHAR Rep #:[id number] : 1965 57 From: Sri Chavez PCP: Dr. Ivette Welsh MD Status:AD M IN Y Location[place] [facility] [id number] Pharmacy [facility] Pharmacy Service [...] Signature (if applicable): Date CC: ~ Signed [facility] Work Phone: Discharge summary Author Nito Thorne [facility] June 05, 2023 1:22pm Note Date/Time June 05, 2023 1:18pm [facility] Medical Records Department [address] [place] [address] Discharge Summary 06/05/23 1314 MR#: [id number] Acct: [id number] Name: SAVANNAH IRVIN SRIDHAR Rep #:[id number] : 1965 57 From: Nito Thorne DO PCP: Dr. Ivette Welsh MD Status:TAMAR SANABRIA Location: [place] [address] Providers Date of Admission: 06/04/23 Primary Care [...] has never had PFTs or seen a revenue collector before. I would be concerned patient has [...] % (Auto) 61.9, Lymph % (Auto) 24.9, Sarpy % (Auto) 8.1, Eos % (Auto) 4.2, [...] 88.4 H, Lymph % (Auto) 10.5 L, Sarpy % (Auto) 0.5, Eos % (Auto) 0.0, [...] Keyur Gamboa MD at 22:44 EST , D/C Instructions Discharge Diet: No restrictions [...] I do recommend that you see a revenue collector for chronic maintenance medications but also to [...] Instructions: NOT TAKING Referrals / Follow Up: [facility] [Provider Group] - Within 3 Months [facility] [place] [Provider Group] - Within 1 Month Ivette Welsh MD [Primary Care Provider] - Within 2 Weeks Disposition Disposition (needs filled in before D/C Order can be placed): Home, Self Care Charges/Coding Visit Charges Inpatient E&M: 97988 Disch Hosp >30min 06/05/23 1322 <Electronically signed by Nito Thorne DO> Cosigner Signature (if applicable): CC: Dr. Nito Thorne DO; Dr. Ivette Welsh MD~ Signed [facility] Work Phone: Evaluation + Plan note No data available for this section [facility] Evmojzkmnp noteNo assessment information available [facility] Work Phone: Evaluation note* Diagnosis Chronic bilateral low back pain without sciatica documented in this encounter [facility] note* Diagnosis Encounter for screening mammogram for breast cancer documented in this encounter [facility] note* Diagnosis Moderate persistent asthma with acute exacerbation Chronic bronchitis, unspecified chronic bronchitis type (HCC) documented in this encounter [facility] note* Diagnosis Onset Date Resolution Status Acute pyelonephritis acute Acute right flank pain acute Leukocytosis acute [facility] Work Phone: Evaluation note* Diagnosis Hospital discharge follow-up- Primary Other follow-up examination Acute pyelonephritis Acute pyelonephritis without lesion of renal medullary necrosis Chronic obstructive pulmonary disease, unspecified COPD type (HCC) Dysphagia, unspecified type documented in this encounter [facility] note* Diagnosis Onset Date Resolution Status Acute right flank pain resol caesar Gastroesophageal reflux disease acute COPD exacerbation chronic Hypertension chronic [facility] Work Phone: Evaluation note* Diagnosis Onset Date Resolution Status Acute right flank pain resol caesar Esophagitis acute Gastroesophageal reflux disease acute Hypertension, accelerated ac james COPD exacerbation chronic Hypertension chronic [facility] Work Phone: Evaluation note* Diagnosis Moderate persistent asthma with acute exacerbation Chronic bronchitis, unspecified chronic bronchitis type (HCC) documented in this encounter [facility] note* Diagnosis Encounter for screening mammogram for breast cancer documented in this encounter [facility] note* Diagnosis Acute cough documented in this encounter [facility] note* Diagnosis Moderate persistent asthma with acute exacerbation Chronic bronchitis, unspecified chronic bronchitis type (HCC) documented in this encounter [facility] note* Diagnosis Hospital discharge follow-up- Primary Other follow-up examination Dysphagia, unspecified type Chronic obstructive pulmonary disease, unspecified COPD type (HCC) Bacterial pneumonia Bacterial pneumonia, unspecified Sore throat Acute pharyngitis documented in this encounter [facility] note* Diagnosis Sore throat- Primary Acute pharyngitis URI, acute Acute upper respiratory infections of unspecified site documented in this encounter [facility] note* Diagnosis Encounter for screening mammogram for breast cancer documented in this encounter [facility] note* Diagnosis Moderate persistent asthma with acute exacerbation (HCC) Chronic bronchitis, unspecified chronic bronchitis type (HCC) documented in this encounter [facility] note* Diagnosis Onset Date Resolution Status Admit Date Elevated d-dimer acute December 5:01am Generalized weakness acute January 09, 2025 5:01am Leukocytosis acute January 09 025 5:01am Multifocal pneumonia acute January 09, 2025 5:01am Obesity (BMI 30.0-34.9) acute J 2024 5:01am HELIO (obstructive sleep apnea) acute January 09, 2025 5:01am Respiratory insufficiency acute January 09, 2025 5:01am Tobacco use acute January 09 5:01am Acute exacerbation of chroni c obstructive pulmonary disease chronic Ju 2024 5:01am [facility] Work Phone: Hospital Discharge instructions Additional Instructions Your imaging studies showed a fractured heel. Use your crutches to help with weightbearing and wear your walking boot for stabilization of the fracture. Follow-up with podiatry for repeat evaluation and return to the ER should you have any further [facility] Work Phone: Hospital Discharge instructions Additional Instructions Plenty of fluids and rest. Zofran for nausea. Protonix for your reflux and your esophagitis. 40 mg a day for the next 2 weeks. Follow-up with your doctor to ensure you are improving.[facility] Work Phone: Hospital Discharge instructions Additional Instructions Follow-up with your primary care physician, return back to the ED if symptoms change or worsen. Tylenol and Motrin as needed for fever. You received Toradol here in the emergency department, no ibuprofen for 8 hours. You received Tylenol here in the emergency department, no Tylenol for 6 hours. Mucinex as needed for cough.[facility] Work Phone: Progress note No data available for this section [facility] Reason for referral (narrative)* Diagnostic Procedure Only (Routine) - Pending Review Specialty Diagnoses / Procedures Referred By Richard morales Referred To Contact [facility] Diagnoses Encounter for screening mammogram for breast cancer Procedures DARIA SCREENING SCREENING MAMMOGRAPHY BI 2-VIEW BREAST INC Ivette Vail MD [address] [place] [address] [facility] [address] [place] [address] Referral ID Status Reason Start Date Expiration Date Visits Requested Visits Authorized [id number] Pending Review Auto-Generat ed Referral 11/18/2022 12/18/2023 1 1 [facility] for referral (narrative)* Diagnostic Procedure Only (Routine) - Pending Review Specialty Diagnoses / Procedures Referred By Richard morales Referred To Contact [facility] Diagnoses Encounter for screening mammogram for breast cancer Procedures DARIA SCREENING SCREENING MAMMOGRAPHY BI 2-VIEW BREAST INC Ivette Vail MD [address] [place] [address] [facility] [address] [place] [address] Referral ID Status Reason Start Date Expiration Date Visits Requested Visits Authorized [id number] Pending Review Auto-Generat ed Referral 10/27/2023 11/25/2024 1 1 [facility] for referral (narrative)No reason for referral information availableWDelaware County Hospital Work Phone: Summary Purpose Family History Relationship Condition Age [...] No September 09 023 2:50am Power of Optometric Coordinator No September 09, 2022 2:50am Advance Directive Response Recorded Date/ Time Advance Directives No August 7:02pm Living Will No October 11, 2022 10:04pm Power of Optometric Coordinator No October 11 10:04pm Advance Directive Response Recorded Date/ Time Advance Directives No August 7:02pm Living Will No November 16, 2022 2: 25am Power of Optometric Coordinator No November 16, 2022 2:25am Advance Directive Response Recorded Date/ Time Advance Directives No August 7:02pm Living Will No December 30, 2022 9:24pm Power of Optometric Coordinator No December 30 9:24pm Advance Directive Response Recorded Date/ Time Advance Directives No August 7:02pm Living Will No February 08, 2023 4:16pm Power of Optometric Coordinator No February 08 4:16pm Latest Code Status on File Code Status Date Activated Date Inactivated Comments Full Code 04/29/2023 12:00 PM 05/01/2023 9:38 PM Question Answer Comments Full Code Order Discussed With: Patient Advance Directive Response Recorded Date/ Time Advance Directives No August 6:02pm Living Will No June 04 023 10:57pm Power of Optometric Coordinator No June 04, 2023 10:57pm Advance Directive Response Recorded Date/ Time Advance Directives No August 6:02pm Living Will No June 05 023 12:39am Power of Optometric Coordinator No June 05, 2023 12:39am Date Activated Date Inactivated Comments 04/29/2023 12:00 PM 05/01/2023 9:38 PM Question Answer Comments Full Code Order Discussed With: Patient Date Activated Date Inactivated Comments 04/29/2023 12:00 PM 05/01/2023 9:38 PM Question Answer Comments Full Code Order Discussed With: Patient Advance Directive Response Recorded Date/ Time Do you have a Healthcare Power of Optometric Coordinator? No January 04, 2025 9:30pm Advance Directives No August 7:02pm Advance Directive Response Recorded Date/ Time Do you have a Healthcare Power of Optometric Coordinator? No January 04, 2025 9:30pm Do you have a Healthcare Power of Optometric Coordinator? No January 08, 2025 8:25pm Advance Directives No August 7:02pm Chief Complaint [...] Date sob January 04, 2025 8:54 pm Chief Complaint Admit Date sob January 04, 2025 8:54 pm MULTIFOCAL PNA LEUKACYTOSIS AECOPD AND J une 2024 5:01am Reason for Visit Admit Date Elevated d-dimer January 09, 2025 5:01 am Generalized weakness January 09, 2025 5:0 1am Leukocytosis January 09, 2025 5:01 am Multifocal pneumonia January 09, 2025 5:0 1am Obesity (BMI 30.0-34.9) January 09, 2025 5:01am HELIO (obstructive sleep apnea) January 09, 2025 5:01am Respiratory insufficiency January 09 5:01am Tobacco use January 09, 2025 5:01 am Acute exacerbation of chronic obstructiv e pulmonary disease January 09, 2025 5:01am Reason for Referral Specialty Diagnoses / Procedures Referred By Contac t Referred To Contact Gastroenterology Diagnoses Dysphagia, unspecified type Procedures CONSULT TO GASTROENTEROLOGY OFFICE/OUTPATIENT [facility] 60-74 MINUTES Ivette Welsh MD [address] [place] [address] Referral ID Status Reason Start Date Expiration Date Visits Requested Visits Authorized [id number] Pending Review PCP Requested Referral 02/18/2023 02/18/2024 1 1 Additional Source Comments INFORMATION SOURCE (unrecogn ized section and content) DATE CREATED AUTHOR 01/12/2018 [facility] DATE CREATED AUTHOR AUTHOR'S ORGANIZ ATION 09/08/[address] [facility] [place] DATE CREATED AUTHOR AUTHOR'S ORGANIZ ATION 05/11/[address] [facility] DATE CREATED AUTHOR AUTHOR'S ORGANIZ ATION 07/06/2023 [facility] DATE CREATED AUTHOR AUTHOR'S ORGANIZ ATION 07/27/2024 [facility] DATE CREATED AUTHOR AUTHOR'S ORGANIZ ATION 10/28/2024 [facility] DATE CREATED AUTHOR AUTHOR'S ORGANIZ ATION 01/07/2025 [facility] Source Comments (unrecognize d section and content) In the event this informatio n is protected by the Federal Confidentiality of Alcohol and Drug Abuse Patient Records regulations: The Federal rules restrict any use of the information to criminally investigate or prosecute any alcohol or drug abuse patient.[facility] HealthIn the event this information is protected by the Federal Confidentiality of Alcohol and Drug Abuse Patient Records regulations: The Federal rules restrict any use of the information to criminally investigate or prosecute any alcohol or drug abuse patient.[facility] HealthIn the event this information is protected by the Federal Confidentiality of Alcohol and Drug Abuse Patient Records regulations: The Federal rules restrict any use of the information to criminally investigate or prosecute any alcohol or drug abuse patient.[facility] HealthIn the event this information is protected by the Federal Confidentiality of Alcohol and Drug Abuse Patient Records regulations: The Federal rules restrict any use of the information to criminally investigate or prosecute any alcohol or drug abuse patient.[facility] HealthIn the event this information is protected by the Federal Confidentiality of Alcohol and Drug Abuse Patient Records regulations: The Federal rules restrict any use of the information to criminally investigate or prosecute any alcohol or drug abuse patient.[facility]tering HealthIn the event this information is protected by the Federal Confidentiality of Alcohol and Drug Abuse Patient Records regulations: The Federal rules restrict any use of the information to criminally investigate or prosecute any alcohol or drug abuse patient.[facility] HealthIn the event this information is protected by the Federal Confidentiality of Alcohol and Drug Abuse Patient Records regulations: The Federal rules restrict any use of the information to criminally investigate or prosecute any alcohol or drug abuse patient.[facility] HealthIn the event this information is protected by the Federal Confidentiality of Alcohol and Drug Abuse Patient Records regulations: The Federal rules restrict any use of the information to criminally investigate or prosecute any alcohol or drug abuse patient.[facility] HealthIn the event this information is protected by the Federal Confidentiality of Alcohol and Drug Abuse Patient Records regulations: The Federal rules restrict any use of the information to criminally investigate or prosecute any alcohol or drug abuse patient.[facility] HealthIn the event this information is protected by the Federal Confidentiality of Alcohol and Drug Abuse Patient Records regulations: The Federal rules restrict any use of the information to criminally investigate or prosecute any alcohol or drug abuse patient.[facility] HealthIn the event this information is protected by the Federal Confidentiality of Alcohol and Drug Abuse Patient Records regulations: The Federal rules restrict any use of the information to criminally investigate or prosecute any alcohol or drug abuse patient.[facility] HealthIn the event this information is protected by the Federal Confidentiality of Alcohol and Drug Abuse Patient Records regulations: The Federal rules restrict any use of the information to criminally investigate or prosecute any alcohol or drug abuse patient.[facility] HealthIn the event this information is protected by the Federal Confidentiality of Alcohol and Drug Abuse Patient Records regulations: The Federal rules restrict any use of the information to criminally investigate or prosecute any alcohol or drug abuse patient.[facility] HealthIn the event this information is protected by the Federal Confidentiality of Alcohol and Drug Abuse Patient Records regulations: The Federal rules restrict any use of the information to criminally investigate or prosecute any alcohol or drug abuse patient.[facility] HealthIn the event this information is protected by the Federal Confidentiality of Alcohol and Drug Abuse Patient Records regulations: The Federal rules restrict any use of the information to criminally investigate or prosecute any alcohol or drug abuse patient.[facility] HealthIn the event this information is protected by the Federal Confidentiality of Alcohol and Drug Abuse Patient Records regulations: The Federal rules restrict any use of the information to criminally investigate or prosecute any alcohol or drug abuse patient.[facility] HealthIn the event this information is protected by the Federal Confidentiality of Alcohol and Drug Abuse Patient Records regulations: The Federal rules restrict any use of the information to criminally investigate or prosecute any alcohol or drug abuse patient.[facility] HealthIn the event this information is protected by the Federal Confidentiality of Alcohol and Drug Abuse Patient Records regulations: The Federal rules restrict any use of the information to criminally investigate or prosecute any alcohol or drug abuse patient.[facility] HealthIn the event this information is protected by the Federal Confidentiality of Alcohol and Drug Abuse Patient Records regulations: The Federal rules restrict any use of the information to criminally investigate or prosecute any alcohol or drug abuse patient.[facility] HealthIn the event this information is protected by the Federal Confidentiality of Alcohol and Drug Abuse Patient Records regulations: The Federal rules restrict any use of the information to criminally investigate or prosecute any alcohol or drug abuse patient.[facility] HealthIn the event this information is protected by the Federal Confidentiality of Alcohol and Drug Abuse Patient Records regulations: The Federal rules restrict any use of the information to criminally investigate or prosecute any alcohol or drug abuse patient.[facility] HealthIn the event this information is protected by the Federal Confidentiality of Alcohol and Drug Abuse Patient Records regulations: The Federal rules restrict any use of the information to criminally investigate or prosecute any alcohol or drug abuse patient.[facility] HealthIn the event this information is protected by the Federal Confidentiality of Alcohol and Drug Abuse Patient Records regulations: The Federal rules restrict any use of the information to criminally investigate or prosecute any alcohol or drug abuse patient.[facility] HealthIn the event this information is protected by the Federal Confidentiality of Alcohol and Drug Abuse Patient Records regulations: The Federal rules restrict any use of the information to criminally investigate or prosecute any alcohol or drug abuse patient.[facility] HealthIn the event this information is protected by the Federal Confidentiality of Alcohol and Drug Abuse Patient Records regulations: The Federal rules restrict any use of the information to criminally investigate or prosecute any alcohol or drug abuse patient.[facility] Reason for Visit (unrecogniz ed section and [...] Date Comments Population Health Navigation Outreach 12/07/2023 [employer],Work[employer],[place] Reason Onset Date Comments Population Health Navigation Outreach 01/04/2024 [employer],Workbench,[place] Reason Onset Date Comments Population Health Navigation Outreach 02/25/2024 [employer],Workbench,[place] Reason Onset Date Comments Population Health Navigation [...] Dr. Nixon Duke MD Emergency Provider Active Manager Of Broadcast Content Relationship Specialty Start Date End Date Ivette Welsh MD [address] [place], [place] [id number] PCP - General Family Medicine 11/17/22 Manager Of Broadcast Content Relationship Specialty Start Date End Date Ivette Welsh MD [address] [place], [place] [id number] PCP - General Family Medicine 11/17/22 Team [...] MD Admit Provider, Attending Provi day Active Manager Of Broadcast Content Relationship Specialty Start Date End Date Ivette Welsh MD [address] [place], [place] [address] PCP - General Family Medicine 11/17/22 Manager Of Broadcast Content Relationship Specialty Start Date End Date Ivette Welsh MD [address] [place] [address] PCP - General Family Medicine 11/17/22 Radha Victoria, RN [address] [place] [address] Primary Care Vp Of Global Marketing 05/03/23 06/02/23 Manager Of Broadcast Content Relationship Specialty Start Date End Date Ivette Welsh MD [address] [place] [address] PCP - General Family Medicine 11/17/22 Radha Victoria, RN [address] [place] [address] Primary Care Vp Of Global Marketing 05/03/23 06/02/23 Manager Of Broadcast Content Relationship Specialty Start Date End Date Ivette Welsh MD [address] [place] [address] PCP - General Family Medicine 11/17/22 Radha Victoria, RN [address] [place] [address] Primary Care Vp Of Global Marketing 05/03/23 05/31/23 Team Status: Active Member Role [...] Provide r Active Dr. Nito Thorne , DO Attending Provider Active Manager Of Broadcast Content Relationship Specialty Start Date End Date Ivette Welsh MD [address] [place] [address] PCP - General Family Medicine 11/17/22 Manager Of Broadcast Content Relationship Specialty Start Date End Date Ivette Welsh MD [address] [place] [address] PCP - General Family Medicine 11/17/22 Manager Of Broadcast Content Relationship Specialty Start Date End Date Ivette Welsh MD [address] [place] [address] PCP - General Family Medicine 11/17/22 Manager Of Broadcast Content Relationship Specialty Start Date End Date Ivette Welsh MD [address] [place] [address] PCP - General Family Medicine 11/17/22 Manager Of Broadcast Content Relationship Specialty Start Date End Date Ivette Welsh MD [address] [place] [address] PCP - General Family Medicine 11/17/22 Letha Alston APRN.JIG BORE TOOL MAKER [address] [place] [address] Neck Band Operator Family Medicine 06/25/24 Manoj Davidson APRN.JIG BORE TOOL MAKER [address] [place] [address] Neck Band Operator Family Medicine 07/04/24 Manager Of Broadcast Content Relationship Specialty Start Date End Date Ivette Welsh MD [address] [place] [address] PCP - General Family Medicine 11/17/22 Letha Alston APRN.JIG BORE TOOL MAKER [address] [place] [address] Neck Band Operator Family Medicine 06/25/24 Manoj Davidson APRN.JIG BORE TOOL MAKER [address] [facility] [place] [place] [address] Neck Band Operator Family [facility] 07/04/24 Manager Of Broadcast Content Relationship Specialty Start Date End Date Ivette Welsh MD [address] [facility] [place] [address] PCP - General Family Medicine 11/17/22 Letha Alston APRN.JIG BORE TOOL MAKER [address] [facility] [place] [place] [address] Neck Band Operator Family Medicine 06/25/24 Manoj Davidson APRN.JIG BORE TOOL MAKER [address] [facility] [place] [address] [facility] Manager Of Broadcast Content Relationship Specialty Start Date End Date Ivette Welsh MD [address] [facility] [place] [address] PCP - General Family Medicine 11/17/22 Letha Alston APRN.JIG BORE TOOL MAKER [address] [facility] [place] [address] Neck Band Operator Family Medicine 06/25/24 Manoj Davidson APRN.JIG BORE TOOL MAKER [address] [facility] [place] [address] Neck Band Operator Family [facility] 07/04/24 Manager Of Broadcast Content Relationship Specialty Start Date End Date Ivette Welsh MD [address] [place] [address] PCP - General Family Medicine 11/17/22 Letha Alston APRN.JIG BORE TOOL MAKER [address] [place] [address] Neck Band Operator Family Medicine 06/25/24 Manoj Davidson APRN.JIG BORE TOOL MAKER [address] [place] [address] [facility] 07/04/24 Manager Of Broadcast Content Relationship Specialty Start Date End Date Ivette Welsh MD [address] [place] [address] PCP - General Family Medicine 11/17/22 Letha Alston APRN.JIG BORE TOOL MAKER [address] [place] [address] Neck Band Operator Family Medicine 06/25/24 Manoj Davidson APRN.JIG BORE TOOL MAKER [address] [place] [address] Neck Band Operator Family Medicine 07/04/24 Manager Of Broadcast Content Relationship Specialty Start Date End Date Ivette Welsh MD [address] [place] [address] PCP - General Family Medicine 11/17/22 Letha Alston APRN.JIG BORE TOOL MAKER [address] [place] [address] Neck Band Operator Family Medicine 06/25/24 Manoj Davidson APRN.JIG BORE TOOL MAKER [address] [place] [address] Neck Band Operator Family Medicine 07/04/24 Team Status: Active Member Role Status [...] January 04, 2025 End: January 05, 2025 Team Status: Active Member Role Status Dates Dr. Ivette Welsh MD Primary Care Provider Active Start: January 09, 2025 Dr. Nito Avendaño DO Emergency Provider Active Start: January 09, 2025 Dr. Albert Hartmann DO Admit Provider Active Start: January 09, 2025 Dr. Albert Hartmann DO Attending Provider Active Start: January 09, 2025 Goals (unrecognized section and content) Goals [...] BE BASED ON THE PRIMARY CLINICAL RECORDS. [employer] provides no warranty or guarantee of the accuracy or completeness of information in this document.
[2025-01-09 06:45] LABS: Cholesterol 167 mg/dL (<=200); High Density Lipoprotein 35 mg/dL; Low Density Lipoprotein Calc. 117 mg/dL; Triglycerides 78 mg/dL; Troponin T High Sensitivity 8 ng/L (<=14); Very Low Density Lipoprotein 16 mg/dL (5-40); cholesterol:hdl ratio screen 4.84
[2025-01-09 06:51] LABS: Magnesium 2.3 mg/dL (1.5-2.2); Thyroid Stim Hormone (TSH) 0.566 uIU/mL (0.300-4.200)
--- NOTE | 2025-01-09 07:27 | PN.HOSP_ITS ---
Reason for Visit Reason for Visit: Diagnoses Elevated white blood cell count, unspecified (01/09/25) Obesity, class 1 (01/09/25) Obstructive sleep apnea (adult) (pediatric) (01/09/25) Pneumonia, unspecified organism (01/09/25) Chronic obstructive pulmonary disease with (acute) exacerbation (01/09/25) Other abnormalities of breathing (01/09/25) Weakness (01/09/25) Other specified abnormal findings of blood chemistry (01/09/25) Tobacco use (01/09/25) Subjective Subjective Breathing better. Objective Data Objective Data Vital Signs: Vital Signs Temp Pulse Resp BP Pulse Ox O2 Del Method O2 Flow Rate 36.6 C 88 24 H 120/85 H 93 Room Air 2 01/09/25 05:44 01/09/25 05:44 01/09/25 05:44 01/09/25 05:44 01/09/25 05:44 01/09/25 05:00 01/09/25 01:00 Oxygen Flow Rate (L/min) 2 Oxygen Delivery Method Room Air Weight: 79.379 kg Body Mass Index (BMI) 29.1 Intake & Output: Intake and Output for Last 24 Hours 01/07/25 01/08/25 01/09/25 23:59 23:59 23:59 Intake Total 305 / 305 Balance 305 / 305 Lab / Micro Data 01/08/25 20:50 01/08/25 20:50 Labs: Laboratory Results - last 24 hr 01/08/25 20:50: WBC 19.9 H, RBC 4.59, Hgb 12.9, Hct 39.6, MCV 86.3, MCH 28.1, MCHC 32.6, RDW Std Deviation 44.6 H, RDW Coeff of Madhu 14.1, Plt Count 571 H, MPV 9.8, Immature Gran % (Auto) 0.400, Neut % (Auto) 83.9 H, Lymph % (Auto) 9.2 L, [place] % (Auto) 5.9, Eos % (Auto) 0.3, Baso % (Auto) 0.3, Absolute Neuts (auto) 16.7 H, Absolute Lymphs (auto) 1.82, Nucleated RBC % 0, PT 12.7, INR 0.9, APTT 30.1, D-Dimer Quant (PE/DVT) 1.48 H*, Sodium 134, Potassium 4.1, Chloride 95 L, Carbon Dioxide 26.4, Anion Gap 13, BUN 15, Creatinine 0.82, Estim Creat Clear Calc 76.72, Est GFR (MDRD) Non-Af 83, BUN/Creatinine Ratio 18.3, Glucose 109 H, Lactic Acid 1.4, Calcium 9.2, Troponin T High Sens 17 H 01/09/25 06:05: Magnesium 2.3 H, Troponin T High Sens 8 D, Triglycerides 78, Cholesterol 167, LDL Cholesterol, Calc 117, VLDL Cholesterol 16, HDL Cholesterol 35 L, Cholesterol/HDL Ratio 4.84, TSH 0.566 Radiography Diagnostic Testing: Radiology Impression Chest X-Ray 01/08/25 21:00 IMPRESSION: 1. No acute cardiopulmonary abnormality. 2. Nodular opacity in the right mid lung zone measuring 8 mm. Consider nonemergent chest CT in this patient with emphysema. Reading Location: [id number] Chest CTA 01/09/25 00:35 IMPRESSION: Centrilobular nodularity with multifocal airspace disease in the right lower lobe and to a lesser extent in the right middle and upper lobes, probably multifocal pneumonia. Prior cholecystectomy. Mildly prominent mediastinal and hilar lymph nodes are noted with the largest measuring 1.3 cm, probably reactive. Uncomplicated sliding hiatal hernia. No significant coronary artery calcifications. No CT evidence of pulmonary embolus or aortic dissection. Reading Location: [place] [address] Physical Exam Const alert and no apparent distress HEENT head/scalp atraumatic and moist oral mucous membranes Resp normal respiratory effort, no retractions, no use of accessory muscles and clear to auscultation bilaterally Cardio regular rate, regular rhythm, S1 normal heart sound and S2 normal heart sound GI normal to inspection, nondistended, normoactive bowel sounds, soft to palpation, non-tender and non-distended Extremity normal to inspection and full ROM Neuro Sensorium / Orientation: awake and alert Assessment & Plan Assessment/Plan (1) Pneumonia: PLAN: Suspected pneumococcal Resp panel shows Human metapneumovirus. COVID/Influenza/RSA negative on the . Follow up strep and legionella antigens, Sputum culture Abx with pip/tazo and vanc. Will continue through today, then transition to azithromycin and ceftriaxone on 01/10 pulmonary toilet (2) COPD with exacerbation: PLAN: BDs w methylprednisolone exacerbated by virus PLAN: Plan Obesity class I: complicates care and recovery. VTE prophylaxis: enoxaparin Dispo: TBD. Monitor 1-2 more days. Check an ambulatory pulse ox. Charges/Coding Visit Charges Inpatient E&M: 02901 Subs Hosp L2
[2025-01-09 07:33] LABS: Allen Test Positive; Base Excess 6 mmol/L (-2 to +2); Bicarbonate 30.8 mmol/L (22-26); Blood Gas Specimen Type ART; Mode Not entered; O2 Delivery Device Cannula; PO2 62 mmHG (75-100); SITE R Radial; SO2 91 % (95-99); Total Carbon Dioxide 32 mmol/L; pH 7.42 (7.35-7.45)
--- NOTE | 2025-01-09 07:51 | PCM.RX.CS ---
Consult Antibiotic Management Pharmacy has been consulted to manage selected antibiotic: Vancomycin Type of Intervention Type of Consult: New start Suspected Infection Suspected Infection: Pneumonia Prior Doses of Antibiotics Prior Doses of Antibiotics Received/Current Regimen: Vancomycin 2000 mg IV x 1 given 01/09/25 @ 0630 Labs Labs: Sodium 134 mmol/L (133-145) 01/08/25 20:50 Potassium 4.1 mmol/L (3.3-5.1) 01/08/25 20:50 Chloride 95 mmol/L (98-108) L 01/08/25 20:50 Carbon Dioxide 26.4 mmol/L (21.0-32.0) 01/08/25 20:50 Anion Gap 13 (5-15) 01/08/25 20:50 BUN 15 mg/dL (4-19) 01/08/25 20:50 Creatinine 0.82 mg/dL (0.70-1.20) 01/08/25 20:50 Est GFR (MDRD) Non-Af 83 (>60) 01/08/25 20:50 BUN/Creatinine Ratio 18.3 RATIO (10-20) 01/08/25 20:50 Glucose 109 mg/dL (70-99) H 01/08/25 20:50 Dosing Weight Weight used for dosin kg Estimated Creatinine Clearance Estimated Creatinine Clearance: ~77 Goal Trough Goal Trough: 15-20 mcg/mL Pharmacy Plan for Drug Dosing Pharmacy Plan for Drug Dosing: Vancomycin 2000 mg IV x 1, followed by 1250 mg Q12H. Pharmacy Service will continue to monitor and adjust dosing as required. Follow-Up Labs Follow-Up Labs: Trough: Vancomycin Date/Time Labs Ordered Labs to be done on [date and time ordered]: 01/10/25 @ 1800
[2025-01-09 09:08] LABS: Troponin T High Sens 2 HR 7 ng/L (<=14)
[2025-01-09] MEDS: Enoxaparin 40 MG/0.4 ML Syringe SC (10:30)
[2025-01-09] MEDS: Pantoprazole Sodium 40 MG Tablet PO ×2 (10:31→22:48)
[2025-01-09] MEDS: guaiFENesin/D-Methorphan TAB.SR.12H 1 TABLET PO ×2 (10:31→22:48)
[2025-01-09 11:12] LABS: Troponin T High Sens 4 HR 7 ng/L (<=14)
[2025-01-09 11:50] LABS: Bacteria 0 SEEN /hpf (None Seen); Mucous, Urine 0 SEEN /hpf (<or=2+); Red Blood Cells-Urine 0 SEEN /hpf (0-5); White Blood Cells 0 SEEN /hpf (0-5)
[2025-01-09 12:02] LABS: Color, Urine Yellow (Yellow); Glucose, Dipstick Normal (Normal); Ketone-Dipstick 5 mg/dl (Negative); Leukocyte Esterase-Dipstick Negative /ul (Negative); Nitrite-Dipstick Negative (Negative); Occult Blood-Urine 25 /ul (Negative); Protein-Dipstick 30 mg/dl (Negative); Specific Gravity, Urine 1.015 (1.002-1.030); Urine Bilirubin Dipstick Negative (Negative); Urine Clarity Clear (Clear); Urine Urobilinogen Normal (Normal)
[2025-01-09 12:35] LABS: Squamous Epithelial Cells - UA 0-5 SEEN /hpf (5-10)
--- NOTE | 2025-01-09 14:12 | CASEMGMT ---
RADHA OGDEN Assessment Face to Face with patient for initial transition planning/care coordination assessment. RN ALIN introduced self and role at [facility], pt voices understanding. Pt is A&Ox4 and is resting comfortably in the chair and is calm. Care providers, pharmacy, and demographics verified. Admitting dx: Multifocal PNA, Leukocytosis, AE COPD LACE Strata: 3 PCP: Steven Welsh Specialists: Pt states that she has a history with [facility] but states that she missed her last appt. Pt states that she is going to try to get reconnected with a Stacker Attendant Preferred Pharmacy: [facility] Insurance: [employer], JEFF/[employer] Prescription Benefit: Yes LNOK: Maritza Light (Sister) Living Arrangements: Pt rents a room in her friend's home with 2 other people and states that she lives in the upper portion of the 2 story home with 3 steps to enter the home and a flight of steps to get to her room. Pt denies issues at baseline ADLs/IADLs: Pt states that she is indep at baseline but is currently feeling very sick and weak. 6-Click score is 18 and PT/OT are pending. Transportation: Self, friend. Denies concerns DME: home oxygen through [employer]. Ronny from [employer] reports that the pt's current orders state 2L with exertion via NC only. Pt states that she has a concentrator, portable tanks that her friend can bring in at the time of DC, nebulizer, and inhaler. Pt states that she lost her pox but can afford a new one. Pt also states that she has a BP Machine, Shower chair, grab bars, and lift chair. HHC/SNF: Denies history EtOH/ Smoking/ Illicit Drug use: Pt states that she smokes 1/2 pack of cigarettes daily. Pt states that she quit drinking in . Pt states that she occasionally smokes marijuana. Pt states that she would be receptive to cessation resources. SW notified. Pt?s goal: Return to PLOF Plan: TBD. Anticipate SNF vs Home with HHC. At this time, the pt states that it is too early to tell what she will need or want at the time of DC. Pt states that she is open to do what is warranted. If pt does DC home, follow for HH, potential Palliative Care referral, and updated O2 needs. CM to follow PT evaluation. Pt denies further questions or concerns at this time. Report given to MS3 RADHA OGDEN. Glenn Willingham RN, CM
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
[2025-01-09] MEDS: Vancomycin HCl 1,250 MG in 0.9% Normal Saline (250mL Bag) 250 ML 167 MG IV (18:58)
[2025-01-09] MEDS: MethylPREDNISolone 125 MG/2 ML Vial 60 MG IV (22:47)
[2025-01-10] VITALS (11 sets, daily range): BP systolic 125–154; BP diastolic 71–100; PULSE 80–103; RESP 18–20; TEMP 36.3–36.7; O2SAT 87–100; BMI 31.4
[2025-01-10 05:41] LABS: Absolute Lymphocyte Count 1.29 X10^3/uL (0.83-4.51); Absolute Neutrophil Count 15.8 X10^3/uL (2.0-7.7); Basophil# 0.02 X10^3/uL; Basophil% 0.1 % (0-1); Hematocrit 35.3 % (37-47); Hemoglobin 11.1 g/dL (12.0-15.0); Lymphocyte # 1.29 X10^3/ul (0.83-4.51); Lymphocyte % 7.4 % (19-41); Mean Corp Hgb Conc 31.4 g/dL (32-36); Mean Corpuscular Volume 88.9 fL (81-99); Mean Platelet Vol. 9.2 fl (6.2-12.0); Monocyte# 0.15 X10^3/uL; Monocyte% 0.9 % (0-10); NRBC Flagged by Analyzer 0 % (0-5); Neutrophil # 15.78 X10^3/uL (2.7-7.7); Neutrophil % 90.3 % (47-70); POSITIVE MORPHOLOGY YES; Platelet Count 599 K/mm3 (150-450); RBC Distribution Width CV 14.4 % (11.6-14.6); RBC Distribution Width SD 46.8 fl (35.1-43.9); Red Blood Count 3.97 M/mm3 (4.2-5.4); White Blood Count 17.5 K/mm3 (4.4-11.0)
[2025-01-10 05:47] LABS: Differential Indicated SCAN CRITERIA MET
[2025-01-10] MEDS: Albuterol 2.5 MG/3 ML VIAL.NEB. INHALATION ×2 (05:59→20:53)
[2025-01-10 06:22] LABS: Differential Comment SCANNED; Platelet Estimate MOD INC (ADEQ); Red Cell Morphology NORM C+C NORMAL (NORM C&C)
[2025-01-10 06:42] LABS: Phosphorus 2.8 mg/dL (2.7-4.5)
[2025-01-10 06:45] LABS: ALB/GLOB Ratio 0.7 RATIO (0.9-2.4); AST(SGOT) 25 U/L (<=31); Alanine Aminotransfer ALT/SGPT 18 U/L (<=34); Alkaline Phosphatase 180 U/L (35-104); Anion Gap 13 (5-15); BUN 15 mg/dL (4-19); BUN/Creat Ratio 22.2 RATIO (10-20); Carbon Dioxide 23.9 mmol/L (21.0-32.0); Chloride 104 mmol/L (98-108); Creatinine, Serum 0.67 mg/dL (0.70-1.20); EST Glomerular Filtration Rate 101 (>60); Estimated Creatinine Clearance 98.77 ml/min (50-250); Globulin 4.1 g/dL (2.2-4.2); Glucose 165 mg/dL (70-99); Potassium 4.3 mmol/L (3.3-5.1); Protein, Total 7.1 g/dL (5.9-8.4); Sodium Level 140 mmol/L (133-145); Total Bilirubin 0.23 mg/dL (0.00-1.30)
[2025-01-10] MEDS: Sucralfate 1 GM Tablet PO ×2 (06:52→10:33)
[2025-01-10] MEDS: Vancomycin HCl 1,250 MG in 0.9% Normal Saline (250mL Bag) 250 ML 167 MG IV (06:52)
--- NOTE | 2025-01-10 07:32 | PCM.PN.HOSP ---
Reason for Visit Reason for Visit: Diagnoses Elevated white blood cell count, unspecified (01/09/25) Obesity, class 1 (01/09/25) Obstructive sleep apnea (adult) (pediatric) (01/09/25) Pneumonia, unspecified organism (01/09/25) Chronic obstructive pulmonary disease with (acute) exacerbation (01/09/25) Other abnormalities of breathing (01/09/25) Weakness (01/09/25) Other specified abnormal findings of blood chemistry (01/09/25) Tobacco use (01/09/25) Subjective Subjective Breathing better. Objective Data Objective Data Vital Signs: Vital Signs Temp Pulse Resp BP Pulse Ox O2 Del Method O2 Flow Rate 36.4 C L 90 20 H 154/100 H 98 Nasal Cannula 3 01/10/25 05:20 01/10/25 05:59 01/10/25 05:59 01/10/25 05:20 01/10/25 06:00 01/10/25 06:00 01/10/25 06:00 Oxygen Flow Rate (L/min) 3 Oxygen Delivery Method Nasal Cannula Weight: 85.4 kg Body Mass Index (BMI) 31.4 Intake & Output: Intake and Output for Last 24 Hours 01/08/25 01/09/25 01/10/25 23:59 23:59 23:59 Intake Total 3470 / 3470 650 / 650 Balance 3470 / 3470 650 / 650 Lab / Micro Data 01/10/25 05:18 01/10/25 05:18 Labs: Laboratory Results - last 24 hr 01/09/25 07:40: Troponin T Hi Sens 2 Hr 7 01/09/25 09:40: Troponin T Hi Sens 4Hr 7 01/09/25 11:30: Urine Color Yellow, Urine Clarity Clear, Urine pH 6.0, Ur Specific [place] 1.015, Urine Protein 30 H, Urine Glucose (UA) Normal, Urine Ketones 5 H, Urine Occult Blood 25 H, Urine Nitrite Negative, Urine Bilirubin Negative, Urine Urobilinogen Normal, Ur Leukocyte Esterase Negative, Urine RBC 0 SEEN, Urine WBC 0 SEEN, Ur Squamous Epith Cells 0-5 SEEN, Urine Bacteria 0 SEEN, Urine Mucus 0 SEEN 01/10/25 05:18: WBC 17.5 H, RBC 3.97 L, Hgb 11.1 L, Hct 35.3 L, MCV 88.9, MCH 28.0, MCHC 31.4 L, RDW Std Deviation 46.8 H, RDW Coeff of Madhu 14.4, Plt Count 599 H, MPV 9.2, Immature Gran % (Auto) 1.300 H, Neut % (Auto) 90.3 H, Lymph % (Auto) 7.4 L, [place] % (Auto) 0.9, Eos % (Auto) 0.0, Baso % (Auto) 0.1, Absolute Neuts (auto) 15.8 H, Absolute Lymphs (auto) 1.29, Nucleated RBC % 0, Differential Comment SCANNED, Platelet Estimate MOD INC, RBC Morphology NORM C+C, Sodium 140, Potassium 4.3, Chloride 104, Carbon Dioxide 23.9, Anion Gap 13, BUN 15, Creatinine 0.67 L, Estim Creat Clear Calc 98.77, Est GFR (MDRD) Non-Af 101, BUN/Creatinine Ratio 22.2 H, Glucose 165 H, Calcium 9.0, Phosphorus 2.8, Total Bilirubin 0.23, AST 25, ALT 18, Alkaline Phosphatase 180 H, Total Protein 7.1, Albumin 3.0 L, Globulin 4.1, Albumin/Globulin Ratio 0.7 L Micro: Microbiology 01/09/25 11:30 Urine, Clean Catch Legionella Antigen - Final 01/09/25 11:30 Urine, Clean Catch Streptococcus pneumoniae Antigen (M - Final 01/09/25 05:41 Mucosa - Nasopharyngeal Respiratory Panel (PCR) - Final Human [place] ABG Data ABG results: ABG 01/09/25 07:30 Specimen Type ART Sample Site R Radial pH 7.42 Bicarbonate Actual 30.8 H Total CO2 32 Base Excess 6 H O2 Saturation 91 L O2 % 3.0 ABG pCO2 47.0 H ABG pO2 62 L Kuldip Test Positive O2 Delivery Device Cannula Vent Mode Not entered Radiography Diagnostic Testing: Radiology Impression Venous Doppler Study 01/09/25 05:28 Interpretation Summary Deep veins of the bilateral lower extremities are patent and compressible segmentally. There is no evidence of bilateral lower extremity deep vein thrombosis. The bilateral great saphenous veins appear patent and compressible segmentally. Ordering Physician: Albert Oliver Referring Physician: Steven Welsh Performed By: Serina Mullen RDCS, RVT Social Homelessness:: Unsheltered Physical Exam Const alert and no apparent distress HEENT head/scalp atraumatic and moist oral mucous membranes Resp normal respiratory effort, no retractions, no use of accessory muscles and clear to auscultation bilaterally Cardio regular rate, regular rhythm, S1 normal heart sound and S2 normal heart sound GI normal to inspection, nondistended, normoactive bowel sounds, soft to palpation, non-tender and non-distended Extremity normal to inspection and full ROM Neuro Sensorium / Orientation: awake and alert Assessment & Plan Assessment/Plan (1) Pneumonia: PLAN: Suspected pneumococcal Resp panel shows Human metapneumovirus. COVID/Influenza/RSA negative on the . Follow up strep and legionella antigens, Sputum culture Abx with pip/tazo and vanc. Will continue through today, then transitioned to azithromycin and ceftriaxone on 01/10 pulmonary toilet (2) COPD with exacerbation: PLAN: BDs w methylprednisolone exacerbated by virus PLAN: Plan Leukocytosis: chronic. Obesity class I: complicates care and recovery. VTE prophylaxis: enoxaparin Dispo: TBD. Patient still requires oxygen with activity. Patient is unhoused and lives in her car and she plans to return to her car because she has a pet. She does not want stay with her daughter because apparently that is in disarray. So patient will need to be taken off of oxygen because she will certainly not be able to have oxygen for her car. So discharge is currently on hold. Charges/Coding Visit Charges Inpatient E&M: 81562 Subs Hosp L2
[2025-01-10] MEDS: Ceftriaxone 1 GM/50 ML BAG IV (10:24)
[2025-01-10] MEDS: MethylPREDNISolone 125 MG/2 ML Vial 60 MG IV ×2 (10:27→22:52)
[2025-01-10] MEDS: Pantoprazole Sodium 40 MG Tablet PO ×2 (10:32→22:53)
[2025-01-10] MEDS: guaiFENesin/D-Methorphan TAB.SR.12H 1 TABLET PO ×2 (10:32→22:53)
[2025-01-10] MEDS: Enoxaparin 40 MG/0.4 ML Syringe SC (10:32)
[2025-01-10] MEDS: Azithromycin 500 MG in 0.9% Normal Saline (250mL Bag) 250 ML 255 MG IV (10:33)
[2025-01-10] MEDS: Benzonatate 100 MG Capsule PO (18:06)
--- NOTE | 2025-01-10 18:49 | NURSING ---
lab called d/t vanc level not drawn yet
[2025-01-10 20:37] LABS: Vancomycin, Trough Level 11.1 ug/mL (5.0-15.0)
[2025-01-10] MEDS: 0.9% Saline Lock 10 ML Syringe IV (22:53)
[2025-01-11] VITALS (7 sets, daily range): BP systolic 155–159; BP diastolic 81–88; PULSE 87–99; RESP 16–20; TEMP 36.7–36.9; O2SAT 92–99; BMI 31.6
[2025-01-11] MEDS: Sucralfate 1 GM Tablet PO ×2 (06:01→11:21)
--- NOTE | 2025-01-11 07:24 | PN.HOSP_ITS ---
Reason for Visit Reason for Visit: Diagnoses Elevated white blood cell count, unspecified (01/09/25) Obesity, class 1 (01/09/25) Obstructive sleep apnea (adult) (pediatric) (01/09/25) Pneumonia, unspecified organism (01/09/25) Chronic obstructive pulmonary disease with (acute) exacerbation (01/09/25) Other abnormalities of breathing (01/09/25) Weakness (01/09/25) Other specified abnormal findings of blood chemistry (01/09/25) Tobacco use (01/09/25) Subjective Subjective Very upset about not getting breathing treatment earlier. Objective Data Objective Data Vital Signs: Vital Signs Temp Pulse Resp BP Pulse Ox O2 Del Method O2 Flow Rate 36.7 C 90 16 159/88 H 97 Nasal Cannula 2 01/11/25 03:30 01/11/25 03:30 01/11/25 03:30 01/11/25 03:30 01/11/25 03:30 01/11/25 05:00 01/11/25 05:00 Oxygen Flow Rate (L/min) 2 Oxygen Delivery Method Nasal Cannula Weight: 86.2 kg Body Mass Index (BMI) 31.6 Intake & Output: Intake and Output for Last 24 Hours 01/09/25 01/10/25 01/11/25 23:59 23:59 23:59 Intake Total 3470 / 3470 2813 / 2813 Balance 3470 / 3470 2813 / 2813 Lab / Micro Data 01/11/25 07:07 01/11/25 07:07 Labs: Laboratory Results - last 24 hr 01/10/25 19:29: Vancomycin Trough 11.1 Micro: Microbiology 01/09/25 11:30 Urine, Clean Catch Legionella Antigen - Final 01/09/25 11:30 Urine, Clean Catch Streptococcus pneumoniae Antigen (M - Final 01/09/25 05:41 Mucosa - Nasopharyngeal Respiratory Panel (PCR) - Final Human [place] Social Homelessness:: Unsheltered Physical Exam Const alert Resp normal respiratory effort, no retractions and no use of accessory muscles Cardio regular rate, regular rhythm, S1 normal heart sound and S2 normal heart sound GI normal to inspection, nondistended, normoactive bowel sounds, soft to palpation, non-tender and non-distended Extremity normal to inspection, full ROM and no clubbing, cyanosis or edema Neuro oriented x3, CN's II-XII intact bilaterally, moves all extremities and no focal motor deficits Assessment & Plan Assessment/Plan (1) Pneumonia: PLAN: Suspected pneumococcal Resp panel shows Human metapneumovirus. COVID/Influenza/RSA negative on the . Follow up strep and legionella antigens, Sputum culture Abx with pip/tazo and vanc. Will continue through today, then transitioned to azithromycin and ceftriaxone on 01/10 pulmonary toilet Will discharge with butyryl MDI, prednisone burst, Augmentin for antibiotics. (2) COPD with exacerbation: PLAN: BDs w methylprednisolone exacerbated by virus PLAN: Plan Leukocytosis: chronic. Obesity class I: complicates care and recovery. VTE prophylaxis: enoxaparin Dispo: Patient is unhoused and lives in her car and she plans to return to her car because she has a pet. She does not want stay with her daughter because apparently that is in disarray. So patient will need to be taken off of oxygen because she will certainly not be able to have oxygen for her car. Discharge home.
[2025-01-11 07:54] LABS: Absolute Lymphocyte Count 1.87 X10^3/uL (0.83-4.51); Absolute Neutrophil Count 20.5 X10^3/uL (2.0-7.7); Basophil# 0.11 X10^3/uL; Basophil% 0.5 % (0-1); Hematocrit 35.5 % (37-47); Hemoglobin 11.1 g/dL (12.0-15.0); Lymphocyte # 1.87 X10^3/ul (0.83-4.51); Lymphocyte % 7.7 % (19-41); Mean Corp Hgb Conc 31.3 g/dL (32-36); Mean Corpuscular Hgb 27.6 pg (27.0-32.0); Mean Corpuscular Volume 88.3 fL (81-99); Mean Platelet Vol. 9.3 fl (6.2-12.0); Monocyte# 0.73 X10^3/uL; NRBC Flagged by Analyzer 0 % (0-5); Neutrophil # 20.52 X10^3/uL (2.7-7.7); Neutrophil % 84.6 % (47-70); POSITIVE DIFFERENTIAL YES; Platelet Count 736 K/mm3 (150-450); RBC Distribution Width CV 14.4 % (11.6-14.6); Red Blood Count 4.02 M/mm3 (4.2-5.4); White Blood Count 24.3 K/mm3 (4.4-11.0)
[2025-01-11 08:00] LABS: Differential Indicated SCAN CRITERIA MET
[2025-01-11] MEDS: Albuterol 2.5 MG/3 ML VIAL.NEB. INHALATION (08:35)
[2025-01-11 08:36] LABS: Anion Gap 12 (5-15); BUN 15 mg/dL (4-19); BUN/Creat Ratio 25.5 RATIO (10-20); Calcium,Total 9.2 mg/dL (7.6-11.0); Carbon Dioxide 25.9 mmol/L (21.0-32.0); Chloride 105 mmol/L (98-108); Creatinine, Serum 0.59 mg/dL (0.70-1.20); EST Glomerular Filtration Rate 104 (>60); Estimated Creatinine Clearance 112.69 ml/min (50-250); Glucose 180 mg/dL (70-99); Potassium 3.7 mmol/L (3.3-5.1); Sodium Level 144 mmol/L (133-145)
[2025-01-11] MEDS: Ketorolac 15 MG/ML Vial IV (08:53)
[2025-01-11] MEDS: 0.9% Saline Lock 10 ML Syringe IV ×3 (08:54→11:45)
[2025-01-11] MEDS: MethylPREDNISolone 125 MG/2 ML Vial 60 MG IV (09:48)
[2025-01-11] MEDS: Enoxaparin 40 MG/0.4 ML Syringe SC (09:48)
[2025-01-11] MEDS: guaiFENesin/D-Methorphan TAB.SR.12H 1 TABLET PO (09:48)
[2025-01-11] MEDS: Pantoprazole Sodium 40 MG Tablet PO (09:49)
[2025-01-11] MEDS: Azithromycin 500 MG in 0.9% Normal Saline (250mL Bag) 250 ML 255 MG IV (09:49)
[2025-01-11] MEDS: Ceftriaxone 1 GM/50 ML BAG IV (11:45)
--- NOTE | 2025-01-11 12:27 | DS.PCM_ITS ---
Providers Date of Admission: 01/09/25 Primary Care Physician: Dr. Steven Welsh MD Reason For Visit: MULTIFOCAL PNA LEUKACYTOSIS AECOPD AND Diagnosis Discharge Diagnosis (1) Pneumonia: Status: Acute Code(s): J18.9 - Pneumonia, unspecified organism Plan: Suspected pneumococcal Resp panel shows Human metapneumovirus. COVID/Influenza/RSA negative on the . Follow up strep and legionella antigens, Sputum culture Abx with pip/tazo and vanc. Will continue through today, then transitioned to azithromycin and ceftriaxone on 01/10 pulmonary toilet Will discharge with albuterol MDI, prednisone burst, Augmentin for antibiotics. (2) COPD with exacerbation: Status: Chronic Code(s): J44.1 - Chronic obstructive pulmonary disease with (acute) exacerbation Plan: BDs w methylprednisolone exacerbated by virus Plan Leukocytosis: chronic. Obesity class I: complicates care and recovery. VTE prophylaxis: enoxaparin Dispo: Patient is unhoused and lives in her car and she plans to return to her car because she has a pet. She does not want stay with her daughter because apparently that is in disarray. So patient will need to be taken off of oxygen because she will certainly not be able to have oxygen for her car. Discharge home. Medications at Discharge Home Medications epinephrine 0.3 mg/0.3 mL injection, auto-injector 0.3 mg (0.3 mL) IM X1 ##1 01/21/19 dextromethorphan-guaifenesin ER 60 mg-1,200 mg tab,extend release,12hr (Mucinex DM) 1 tab PO Q12H 7 days #14 tabs 07/17/24 nicotine 14 mg/24 hr daily transdermal patch 14 mg transdermal DAILY 30 days #30 ea 07/17/24 albuterol sulfate 90 mcg/actuation aerosol inhaler (Ventolin HFA) 1 - 2 puff inhalation PRN PRN Sob &/Or Wheezing #1 g 01/11/25 amoxicillin 875 mg-potassium clavulanate 125 mg tablet 1 tab PO Q12H #8 tabs 01/11/25 benzonatate 100 mg capsule 100 mg PO Q4H PRN PRN Cough #10 caps 01/11/25 pantoprazole 40 mg tablet,delayed release 40 mg PO BID #60 tabs 01/11/25 prednisone 20 mg tablet 40 mg (2 x 20 mg) PO DAILY #10 tabs 01/11/25 sucralfate 1 gram tablet 1 g PO TIDAC #90 tabs 01/11/25 Hospital Course Operations None Procedures None Summary of Care Provided Minutes Spent on Discharge: 35 Hospital Course: Patient presents with shortness of breath. Patient was diagnosed with acute COPD exacerbation complicated by pneumonia. Also was found to have human metapneumovirus. Patient up slowly improved. Patient is unhoused and unwilling to go to a penitentiary or stay someone's house so patient's was unable to be discharged with oxygen on the . Today patient does not require oxygen with ambulation and is overall doing well. Patient will be discharged with antibiotics with Augmentin and prednisone. Medical Records Data Homelessness:: Unsheltered Weight / BMI Weight Weight: 86.2 kg Body Mass Index (BMI) 31.6 ABG / Lab / Microbiology Data 01/11/25 07:07 01/11/25 07:07 Laboratory: Laboratory Results - last 24 hr 01/10/25 19:29: Vancomycin Trough 11.1 01/11/25 07:07: WBC 24.3 H, RBC 4.02 L, Hgb 11.1 L, Hct 35.5 L, MCV 88.3, MCH 27.6, MCHC 31.3 L, RDW Std Deviation 47.0 H, RDW Coeff of Madhu 14.4, Plt Count 736 H, MPV 9.3, Immature Gran % (Auto) 4.200 H, Neut % (Auto) 84.6 H, Lymph % (Auto) 7.7 L, [place] % (Auto) 3.0, Eos % (Auto) 0.0, Baso % (Auto) 0.5, Absolute Neuts (auto) 20.5 H, Absolute Lymphs (auto) 1.87, Nucleated RBC % 0, Differential Comment COMMENT, Sodium 144, Potassium 3.7, Chloride 105, Carbon Dioxide 25.9, Anion Gap 12, BUN 15, Creatinine 0.59 L, Estim Creat Clear Calc 112.69, Est GFR (MDRD) Non-Af 104, BUN/Creatinine Ratio 25.5 H, Glucose 180 H, Calcium 9.2 Microbiology: Microbiology 01/08/25 20:50 Blood Culture (Wb) - Right Forearm Blood Culture - Preliminary No growth in 48 hours. 01/08/25 20:45 Blood Culture (Wb) - Anticubital Left Blood Culture - Preliminary No growth in 48 hours. 01/09/25 11:30 Urine, Clean Catch Legionella Antigen - Final 01/09/25 11:30 Urine, Clean Catch Streptococcus pneumoniae Antigen (M - Final 01/09/25 05:41 Mucosa - Nasopharyngeal Respiratory Panel (PCR) - Final Human [place] D/C Instructions Discharge Diet: No restrictions DC O2, CPAP, BIPAP Needs Home O2 Discharge instructions: No Meaningful Use Info Meaningful Use Meaningful Use Diagnoses (Choose all that apply): None applicable Ischemic Stroke Statin Dosing Therapy Reference: STATIN DOSE THERAPY REFERENCE: * Patients > 75 years receive moderate or high dose statin therapy. * Patients 75 years or YOUNGER should receive HIGH intensity statin dose unless contraindicated. You will be required to document reason for non-treatment if statin daily dose does not meet guidelines. HIGH DOSE STATIN THERAPY DAILY Atorvastatin > than or = to 40 mg Rosuvastatin > than or = to 20 mg Amlodipine + Atorvastatin > than or = to 2.5/40 mg Ezetimibe + Simvastatin 10/80 mg Simvastatin 80mg Discharge Plan Admission Admit Date/Time: 01/09/25 05:20 Primary Reason for Your Visit: COPD exacerbation Attending Provider: Nito Thorne Primary Care Provider: Steven Welsh Consulting Providers: Albert Oliver Discharge Orders/Prescriptions Prescriptions: New sucralfate 1 gram Tablet 1 g PO TIDAC Qty: 90 0RF benzonatate 100 mg Capsule 100 mg PO Q4H PRN PRN (Reason: Cough) Qty: 10 0RF pantoprazole 40 mg Tablet,Delayed Release (Dr/Ec) 40 mg PO BID Qty: 60 0RF prednisone 20 mg tablet 40 mg PO DAILY Qty: 10 0RF amoxicillin-pot clavulanate 875-125 mg tablet 1 tab PO Q12H Qty: 8 0RF Continued epinephrine 0.3 MG syringe 0.3 mg IM X1 Qty: 1 1RF dextromethorphan-guaifenesin [Mucinex DM] 60-1,200 mg tablet extended release 12 hr 1 tab PO Q12H 7 Days Qty: 14 0RF nicotine 14 mg/24 hr Patch 24 Hour 14 mg transdermal DAILY 30 Days Qty: 30 0RF albuterol sulfate [Ventolin HFA] 18 GM HFA aerosol inhaler 1 - 2 puff inhalation PRN PRN (Reason: Sob &/Or Wheezing) Qty: 1 0RF Discontinued albuterol sulfate 2.5 MG/3 ML solution for nebulization 2.5 mg INHALATION Q4H PRN Qty: 25 0RF Rx Instructions: Use q4 hours and PRN for wheezing albuterol sulfate [Ventolin HFA] 90 mcg/actuation HFA aerosol inhaler 2 puff inhalation Q4H PRN PRN (Reason: Wheezing) Qty: 1 0RF Referrals / Follow Up: Steven Welsh MD [Primary Care Provider] - Within 2 Weeks Disposition Disposition (needs filled in before D/C Order can be placed): Home, Self Care Charges/Coding Visit Charges Inpatient E&M: 35441 Disch Hosp >30min
== END 2025-01-11 15:38 | disposition home or self-care (01) | DRG 194 ==
LOC: ED 01-09 04:45 → MS3 01-09 05:33
PROVIDERS: Admitting Provider Internal Medicine; Emergency Provider Emergency Medicine; PCP Family Medicine
DX: J13 Pneumonia due to Streptococcus pneumoniae (principal); J44.1 Chronic obstructive pulmonary disease with (acute) exacerbation; Z59.02 Unsheltered homelessness; J44.0 Chronic obstructive pulmonary disease with (acute) lower respiratory infection; F12.10 Cannabis abuse, uncomplicated; I10 Essential (primary) hypertension; E66.811 Obesity, class 1; K21.00 Gastro-esophageal reflux disease with esophagitis, without bleeding; G47.33 Obstructive sleep apnea (adult) (pediatric); F17.210 Nicotine dependence, cigarettes, uncomplicated; E78.5 Hyperlipidemia, unspecified; J12.3 Human metapneumovirus pneumonia; R79.1 Abnormal coagulation profile; Z68.30 Body mass index [BMI] 30.0-30.9, adult; Z79.899 Other long term (current) drug therapy; Z86.711 Personal history of pulmonary embolism; Z86.73 Personal history of transient ischemic attack (TIA), and cerebral infarction without residual deficits
CPT/HCPCS: 36415; 36600; 71045; 71275; 80048; 80053; 80061; 80202; 81001; 82803; 83605; 83735; 84100; 84443; 84484; 85025; 85379; 85610; 85730; 87040; 87449; 87633; 93005; 93970; 94640; 94668; 94760; 97161; 97530; 99252; 99285; Q9967; A4216; G0463; J0696